=== PATIENT | male | born 1965 | race African-American/Black ===

== ENCOUNTER → 2016-08-29 | Outpatient (CLI) | payer MEDICARE, OTHER ==
--- NOTE | 2016-08-29 12:16 | MR ---
EXAMINATION TYPE: MR cervical spine wo/w con DATE OF EXAM: 08/29/2016 11:29 AM COMPARISON: 09/03/2015 HISTORY: cervicalgia TECHNIQUE: Multiplanar, multisequence images of the cervical spine were acquired utilizing 20 mL intravenous Mul tiHance gadolinium contrast. Diffusion weighted imaging was performed. Distensive of fusion and laminectomy changes are noted to extend from C2-3 through C6-7. Pedicular s crews are in place and alignment is stable relative to the prior study. C2-C3: Postoperative changes. Uncovertebral joint hypertrophy and facet arthropathy causes some mild foraminal encroachment bilaterally. Broad-based posterior disc bulge causes minimal anterior mass eff ect on the thecal sac. C3-C4: Moderate disc desiccation. Broad-based posterior disc bulge mildly effaces the ventral thecal sac. No evidence for herniation or central stenosis. No foraminal encroachment. Postoperative changes . C4-C5: Moderate disc desiccation. Broad-based posterior disc bulge mildly effaces the ventral thecal sac. No evidence for herniation or central stenosis. Mild stable right foraminal encroachment. Postop erative changes. C5-C6: Laminectomy changes are unchanged. Bilateral foraminal encroachment is present. Posterior exte nsion of endplate disc complex causes mild anterior mass effect on the thecal sac. C6-C7: Posterior extension of endplate disc complex causes anterior mass effect on the thecal sac and possibly contact the anterior cervical cord. No significant foraminal encroachment or significant ce ntral canal stenosis. C7-T1: Moderate to severe disc desiccation. Right paracentral disc herniation noted resultant central stenosis and right foraminal encroachment. Mild ventral CORD contact without myelopathy. There is th inning of the spinal cord however. Postoperative alignment is unchanged. Cervical spinal cord is of normal signal. Craniovertebral junc tion relationships are within normal limits. IMPRESSION: 1. Extensive postoperative fusion and laminectomy changes. 2. Interval disc herniation paracentrally and to the right at C6-7 as discussed above.
== END | disposition home or self-care (01) ==
LOC: RADMRIMAIN 10:35
PROVIDERS: ATTEND Psychiatry & Neurology Pain Medicine
DX: M50.223 Other cervical disc displacement at C6-C7 level (principal); Z98.1 Arthrodesis status
CPT/HCPCS: 72156; A9577

== ENCOUNTER → 2016-10-18 | Outpatient (CLI) | payer MEDICARE, OTHER ==
--- NOTE | 2016-10-18 13:11 | MR ---
EXAMINATION TYPE: MR tspine/lspine wo con DATE OF EXAM: 10/18/2016 12:34 PM COMPARISON: MRI thoracic spine December 30, 2014. MRI lumbar spine February 09, 2016. HISTORY: spinal stenosis, numbness from waist down TECHNIQUE: Multiplanar, multisequence imaging of the thoracic and lumbar spine are performed without IV contrast. FINDINGS: T-SPINE: FINDINGS: A Vitamin E marker is placed posteriorly for counting purposes and is at level of the T11-T 12 disc space. Spinal cord shows normal course, caliber, and signal as it courses the thoracic spine . Vertebral body heights and alignment are satisfactory. Disc space heights are maintained. There ar e new posterior disc herniations effacing anterior thecal sac at C7-T1 and T1-T2 levels on sagittal i mage 10. Small posterior disc herniation effacing anterior thecal sac at T7-T8 level on sagittal imag e 9 is less prominent than prior exam. Additional small posterior disc herniation T8-T9 level on sagi ttal image 11 is less prominent than prior exam. Small posterior disc herniations T10-T11 and T11-T12 level on sagittal image 10 are similar to prior exam. Bone marrow signal intensity is preserved. Mil d multilevel anterior spurring in the lower thoracic spine is seen. Axial images at C7-T1 level show right paracentral broad-based disc protrusion effacing anterolateral thecal sac and causing asymmetric moderate right-sided neural foraminal narrowing seen best on axial image 20. Finding is new or more prominent from prior exam. Axial images at T1-T2 level show right paracentral disc protrusion effacing anterolateral thecal sac on axial image 18 similar in appearance to prior exam, bilateral neural foramina are patent. Axial images at T7-T8 level shows central disc protrusion mildly effacing anterior thecal sac less pr ominent than prior study. Axial images at T8-T9 level show right paracentral disc protrusion effacing anterolateral thecal sac on axial image 14, similar appearance to prior study. Axial images at T10-T11 level show lobulated broad-based paracentral disc protrusion effacing anterol ateral thecal sac, bilateral neural foramina are patent on axial image 8. Axial images at T11-T12 level are degraded by artifact. There is facet arthropathy seen bilaterally e ffacing posterior lateral thecal sac. There is broad-based posterior disc protrusion effacing anterio r thecal sac. There is slightly more prominent right lateral thecal sac effacement on axial image 5. Findings are similar to prior exam. Remainder thoracic levels are felt within normal limits. There are new small bilateral pleural effusi ons in the mid thorax near axial image 4. IMPRESSION: Multilevel degenerative changes in the thoracic spine as detailed above. Interval improve ment in disc herniation T7-T8 level is present. New disc herniations upper thoracic spine are noted. L-SPINE: Sagittal images of the lumbar spine show vertebral body heights heights to appear satisfactory. There is slight grade 1 anterolisthesis of L5 on S1 redemonstrated. Multilevel disc desiccation is present . There is mild disc space narrowing L3-L4 level and L5-S1 level redemonstrated. Posterior disc herni ation L3-L1 L4-L5 levels are redemonstrated on sagittal images. The conus medullaris remains normal i n position and signal ending at superior L1 vertebral body level. The bone marrow signal intensity i s within normal limits. No significant spurring is seen. Axial images at the T12-L1 level shows mild/moderate facet arthropathy bilaterally mildly effacing po sterior lateral thecal sac on axial image 26, bilateral neural foramina remain patent. No significant change from prior study is seen. Axial images at L1-L2 level show mild/moderate facet arthropathy bilaterally effacing posterior later al thecal sac on axial image 23, bilateral neural foramina are patent. No significant change from yessenia or study is seen. Axial images at L2-L3 level show broad disc bulge effacing anterior thecal sac. There is moderate fac et degenerative changes and ligamentum flavum hypertrophy effacing posterior lateral thecal sac on ax ial image 18. Bilateral neural foramina remain patent. No significant change from prior study is seen . Axial images at L3-L4 level show moderate to severe facet degenerative changes and ligamentum flavum hypertrophy bilaterally. There is broad disc bulge effacing anterior thecal sac on axial image 13. Th ere is moderate right and severe left-sided neural foraminal narrowing with encroachment left L3 nerv e suspected on sagittal image 3. No significant change from prior study is present. Axial images at L4-L5 level show moderate to advanced facet degenerative changes bilaterally. There i s broad disc bulge with central disc protrusion component. There is effacement of the anterior thecal sac. There is mild to moderate right and moderate to severe left-sided neural foraminal narrowing en croaching along inferior margin of left L4 nerve on sagittal image 2 similar to prior study. Axial images at L5-S1 level show moderate to advanced facet degenerative changes bilaterally. There i s broad-based disc protrusion. Spinal canal is fairly well preserved. There is moderate right and adv anced left-sided neural foraminal narrowing with spondylolisthesis present. Encroachment left L5 nerv e is felt present. IMPRESSION: Multilevel degenerative changes in the lumbar spine as detailed above, no significant erika nge from prior MRI is seen. Most prominent left-sided neural foraminal narrowing is seen at L3-L4 thr ough L5-S1 levels. Stable spondylolisthesis L5-S1 level noted. Findings somewhat pronounced for patie nt's age.
== END | disposition home or self-care (01) ==
LOC: RADMRIMAIN 10:47
PROVIDERS: ATTEND Neurological Surgery
DX: M99.73 Connective tissue and disc stenosis of intervertebral foramina of lumbar region (principal); M99.74 Connective tissue and disc stenosis of intervertebral foramina of sacral region; M51.24 Other intervertebral disc displacement, thoracic region; M43.17 Spondylolisthesis, lumbosacral region; M47.815 Spondylosis without myelopathy or radiculopathy, thoracolumbar region; M48.02 Spinal stenosis, cervical region
CPT/HCPCS: 72146; 72148

== ENCOUNTER → 2017-07-29 | Outpatient (CLI) | payer MEDICARE, OTHER ==
--- NOTE | 2017-07-30 14:33 | MR ---
EXAMINATION TYPE: MR lumbar spine wo/w con DATE OF EXAM: 07/29/2017 COMPARISON: NONE HISTORY: Low back pain, Philipp foot numbness TECHNIQUE: Multiplanar, multisequence images of the lumbar spine were acquired utilizing 13.5 mL intravenous Chapo avist gadolinium contrast. FINDINGS: Bone marrow signal is homogeneous throughout, overall slightly decreased in relation to the disc sign al although there is multilevel disc desiccation is identified. The vertebral bodies maintain normal vertebral body heights. There is mild grade 1 retrolisthesis of L3 on L4. There is also grade 1 anter olisthesis of L5 on S1. There are laminectomy defects and posterior element resection at the L3-L5 ve rtebral levels. L1-L2: Normal disc appearance without desiccation. No herniation, protrusion or disc bulging. No ca nal stenosis is present. Foramina are patent bilaterally. L2-L3: There is a broad-based disc bulge and ligamentum flavum buckling creating mild spinal canal st enosis. No significant neural foraminal narrowing is identified. L3-L4: There is a large broad-based disc bulge and extensive left facet arthropathy creating severe l eft neural foraminal narrowing and impinging upon the L3 nerve root and creating moderate right neuro foraminal narrowing. There is also resultant moderate spinal canal stenosis with transverse canal ant rowing. Posterior element resection has been performed and there is no anterior posterior narrowing o f the spinal canal. L4-L5: There is a broad-based disc bulge and focal disc protrusion/herniation with 3.6 mm cephalad di sc extrusion. There is mild transverse spinal canal narrowing without spinal canal stenosis as the po sterior elements have been resected. Facet arthropathy is also seen resulting in mild right and moder ate left neural foraminal narrowing. L5-S1: Disc desiccation, and broad-based disc bulge, and facet arthropathy moderately narrow the bila teral neural foramen. Spinal canal is patent. Mild posterior T1 hypointense enhancing epidural fibrosis is seen from L3 through L5 most significant at L4-L5 narrowing the spinal canal on postcontrast axial T1 nonfat sat image 7. IMPRESSION: 1. Small central disc herniation at L4-L5 with 3.6 mm cephalad disc extrusion. Extensive facet arthro cuong results in moderate left neural foraminal narrowing and mild right neural foraminal narrowing a t this level. 2. Extensive left facet arthropathy at L3-L4 creates severe left neural foraminal narrowing impinging upon the exiting nerve L3 nerve root and creating moderate right neural foraminal narrowing. 3. Minimal posterior epidural fibrosis from L3 through L5 most significant at L4-L5 narrowing the spi nal canal and creating mild spinal canal stenosis. 4. Moderate spinal canal stenosis in the transverse dimension at L3-L4 with no anterior posterior wid ening due to resection of the posterior elements. 5. Mild grade 1 retrolisthesis of L3 on L4 and anterolisthesis of L5 on S1.
== END | disposition home or self-care (01) ==
LOC: RADMRIMAIN 13:23
PROVIDERS: ATTEND Psychiatry & Neurology Pain Medicine
DX: M48.061 Spinal stenosis, lumbar region without neurogenic claudication (principal); M99.73 Connective tissue and disc stenosis of intervertebral foramina of lumbar region; M51.26 Other intervertebral disc displacement, lumbar region; M43.17 Spondylolisthesis, lumbosacral region; M46.86 Other specified inflammatory spondylopathies, lumbar region
CPT/HCPCS: 72158; A9581

== ENCOUNTER 2017-10-10 17:12 | Inpatient (IN) | payer MEDICARE, OTHER ==
[2017-10-10] MEDS ORDERED: IBUPROFEN 800 MG TAB PO PRN (23:16)
[2017-10-10] MEDS ORDERED: ZOLPIDEM 10 MG TAB PO PRN (23:22)
[2017-10-11] MEDS: PREGABALIN 75 MG CAP PO SCH ×4 (00:29→21:41)
[2017-10-11] MEDS: HEPARIN SODIUM,PORCINE 5,000 UNIT/ML 1 ML VIAL SQ SCH ×3 (00:29→15:44)
[2017-10-11] MEDS: PIPERACILLIN-TAZOBACTAM 3.375 GM in DEXTROSE/WATER 1 50ML.BAG IVPB SCH ×3 (00:30→15:21)
[2017-10-11] MEDS: HYDROcodone/APAP 10-325MG 1 EACH TAB PO PRN ×2 (05:13→15:50)
[2017-10-11 07:22] LABS: Anisocytosis Slight; Basophils % (A) 0 %; Eosinophils # (A) 0.5 k/uL (0-0.7); Eosinophils % (A) 3 %; HCT 29.7 % (39.0-53.0); HGB 8.1 gm/dL (13.0-17.5); Hypochromasia Marked; Lymphocytes # (A) 1.4 k/uL (1.0-4.8); Lymphocytes % (A) 9 %; MCH 19.5 pg (25.0-35.0); MCHC 27.1 g/dL (31.0-37.0); Mean Platelet Volume 6.9; Microcytosis Marked; Monocytes # (A) 0.9 k/uL (0-1.0); Monocytes % (A) 6 %; Neutrophils # (A) 12.6 k/uL (1.3-7.7); Neutrophils % (A) 81 %; Platelet Count 339 k/uL (150-450); Poikilocytosis Slight; RBC 4.13 m/uL (4.30-5.90); RDW 18.4 % (11.5-15.5); WBC 15.7 k/uL (3.8-10.6)
[2017-10-11] MEDS: PANTOPRAZOLE 40 MG TABLET PO SCH (07:37)
[2017-10-11] MEDS: CITALOPRAM HYDROBROMIDE 20 MG TAB PO SCH (07:38)
[2017-10-11 07:40] LABS: ALT 16 U/L (21-72); AST 18 U/L (17-59); Albumin 2.8 g/dL (3.5-5.0); Alkaline Phosphatase 110 U/L (38-126); Anion Gap 12 mmol/L; Blood Urea Nitrogen 22 mg/dL (9-20); Carbon Dioxide 29 mmol/L (22-30); Chloride 101 mmol/L (98-107); Glucose 99 mg/dL (74-99); Potassium 4.4 mmol/L (3.5-5.1); Sodium 142 mmol/L (137-145); Total Bilirubin 0.6 mg/dL (0.2-1.3); Total Protein 6.3 g/dL (6.3-8.2)
--- NOTE | 2017-10-11 08:18 | XR ---
EXAMINATION TYPE: XR chest 2V DATE OF EXAM: 10/11/2017 HISTORY: pleural effusion. REFERENCE: Previous study dated 07/05/2009. FINDINGS: The heart is enlarged. There is worsening opacification of the left hemithorax. Some of thi s represents loculated fluid. Underlying airspace disease cannot be excluded. Right lung appears dora r. IMPRESSION: 1. CARDIOMEGALY. 2. INCREASED OPACITY LEFT HEMITHORAX, AT LEAST PART OF WHICH IS DUE TO LOCULATED FLUID.
[2017-10-11] MEDS ORDERED: NON-FORMULARY DRUG (Omeprazole [Prilosec] 40 MG) PO SCH (09:00)
[2017-10-11] MEDS ORDERED: ALLOPURINOL 100 MG TAB PO SCH (09:00)
[2017-10-11] MEDS: ALLOPURINOL 300 MG TAB PO SCH (09:10)
--- NOTE | 2017-10-11 09:10 | P.CNPUL ---
History of Present Illness Consult date: 10/11/17 Reason for consult: dyspnea, cough, chest pain, pneumonia, pleural effusion Chief complaint: Transferred from [facility] for evaluation left thoracotomy History of present illness: 52-year-old with extensive history of smoking and nicotine use quit smoking about a year ago patient has been admitted into the hospital transfer from [facility] for evaluation of loculated pleural effusion and possible VATS versus left thoracotomy. Patient has a history of severe morbid obesity is status post gastric sleeve, he has not been feeling well for the last several days to weeks with increased shortness breath and cough however about 2- 3 days ago started having left-sided chest pain with heavy feeling with those problem patient came into the hospital was found to have a multiple loculated pleural effusion on the left side confirmed on the computed tomography scan of the chest, patient was initiated therapy with IV Zosyn and vancomycin will transfer her over here for more definitive intervention, patient does complain of night sweats and chills has a significant based loss since gastric sleeve Patient significant past medical history is for mood disorder depression and chronic pain syndrome chronic insomnia history of sleep disorder breathing and sleep apnea but however does not use CPAP machine since significant weight loss Review of Systems All systems: negative Past Medical History Past Medical History: Diabetes Mellitus, GERD/Reflux, Hypertension, Osteoarthritis (OA) Additional Past Medical History / Comment(s): "FEELS LIKE FOOD IS GETTING STUCK WHEN I SWALLOW AND THEN I FEEL LIKE IT'S GOING TO COME BACK UP", MORBID OBESITY. HAS LOST 100LBS SINCE JUNE 2013 & BLOOD SUGARS ARE "UNDER CONTROL" . NO INSULIN REQUIRED. NOT TAKING BP MEDS SINCE WEIGHT LOSS, BECAUSE BP "UNDER CONTROL". GOUT. CHRONIC LOWER BACK PAIN. CHRONIC BILATERAL HIP PAIN. LOWER BACK PAIN. BILATERAL HIP PAIN. marta legs and feet neuropthy History of Any Multi-Drug Resistant Organisms: None Reported Past Surgical History: Bariatric Surgery, Joint Replacement, Orthopedic Surgery Additional Past Surgical History / Comment(s): GASTRIC SLEEVE JUNE 2013. BILATERAL KNEE SX. BILATERAL HIP SX WITH NEED FOR METAL REPLACEMENTS. LEFT SHOULDER SX. LEFT ACHILES TENDON SX. RIGHT BIG TOE Past Anesthesia/Blood Transfusion Reactions: No Reported Reaction Past Psychological History: No Psychological Hx Reported Smoking Status: Former smoker Past Alcohol Use History: None Reported Additional Past Alcohol Use History / Comment(s): started smoking > 19 approx 8 cig per day Past Drug Use History: None Reported - Past Family History Father Family Medical History: Cancer Additional Family Medical History / Comment(s): lung Mother Family Medical History: Coronary Artery Disease (CAD), Hypertension Medications and Allergies Home Medications Medication Instructions Recorded Confirmed Type Ibuprofen [Motrin] 800 mg PO Q8H PRN 11/30/13 10/10/17 History Omeprazole [PriLOSEC] 40 mg PO DAILY 11/30/13 10/10/17 History Allopurinol [Zyloprim] 300 mg PO DAILY 06/04/16 10/10/17 History Cyclobenzaprine [Flexeril] 10 mg PO TID 06/04/16 10/10/17 History Escitalopram [Lexapro] 10 mg PO QAM 06/04/16 10/10/17 History Furosemide [Lasix] 40 mg PO DAILY 06/04/16 10/10/17 History HYDROcodone/APAP 10-325MG [[place] 1 tab PO Q8H PRN 06/04/16 10/10/17 History 10-325] Pregabalin [Lyrica] 150 mg PO BID 06/04/16 10/10/17 History Zolpidem Tartrate [Ambien] 10 mg PO HS PRN 06/04/16 10/10/17 History Multivitamins, Thera [Multivitamin 1 tab PO DAILY 10/10/17 10/10/17 History (formulary)] Nortriptyline [Pamelor] 25 mg PO HS 10/10/17 10/10/17 History Simvastatin 80 mg PO HS 10/10/17 10/10/17 History Allergies Allergy/AdvReac Type Severity Reaction Status Date / Time No Known Allergies Allergy Verified 10/10/17 22:44 Physical Exam Vitals: Vital Signs Temp Pulse Pulse Resp BP Pulse Ox 10/11/17 08:00 18 10/11/17 07:36 99.2 F 90 18 125/78 96 10/11/17 04:00 98.2 F 95 95 20 128/81 96 10/11/17 00:00 99.6 F 104 H 101 H 20 123/74 94 L 10/10/17 20:59 100.7 F H 104 H 21 134/89 97 Intake and Output 10/10/17 10/11/17 10/11/17 22:59 06:59 14:59 Intake Total 200 50 Output Total 300 Balance 200 -250 Intake: Intake, IV Titration 50 Amount Piperacillin-Tazobactam 3 50 .375 gm In Dextrose/Water 1 50ml.bag @ 12.5 mls/hr IVPB Q8HR [facility] Rx#: [id number] Oral 200 Output: Urine 300 Other: Voiding Method Toilet Weight 132.5 kg 126 kg - Constitutional General appearance: disheveled, mild distress, obese - EENT Eyes: anicteric sclerae, EOMI, PERRLA, normal appearance ENT: normal oropharynx Ears: bilateral: normal - Neck Carotids: bilateral: upstroke normal, bruit absent Thyroid: bilateral: normal size - Respiratory Respiratory: right: CTA, left: diminished, dullness, negative: rales, rhonchi, wheezing - Cardiovascular Rhythm: regular Heart sounds: normal: S1, S2 - Gastrointestinal General gastrointestinal: normal bowel sounds, soft - Integumentary Integumentary: normal, normal turgor - Neurologic Normal neuro exam Neurologic: CNII-XII intact - Musculoskeletal Musculoskeletal: gait normal, generalized weakness, strength equal bilaterally - Psychiatric Psychiatric: A&O x's 3, appropriate affect, intact judgment & insight Results - Laboratory Findings CBC and BMP: 10/11/17 07:05 10/11/17 07:05 Abnormal lab findings: Abnormal Labs 10/11/17 10/11/17 07:05 07:05 WBC 15.7 H RBC 4.13 L Hgb 8.1 L Hct 29.7 L MCV 72.0 L MCH 19.5 L MCHC 27.1 L RDW 18.4 H Neutrophils # 12.6 H BUN 22 H Calcium 8.0 L ALT 16 L Albumin 2.8 L - Diagnostic Findings Chest x-ray: report reviewed, image reviewed CT scan - chest: report reviewed, image reviewed (Performed at [facility] with findings as noted above) Assessment and Plan Assessment: Likely empyema Complicated left parapneumonic effusion loculated in nature Severe morbid obesity Mood disorder depression Sepsis related to empyema complicated pneumonia Plan: Gentle rehydration Pain control DVT and peptic ulcer disease prophylaxis Deep breathing exercises incentive spirometry Increase activity as tolerated IV antibiotics with Zosyn and vancomycin Thoracic surgery consultation discussed with Dr Cano, Dr. Farris is covering for the weekend Time with Patient: Greater than 30
[2017-10-11] MEDS ORDERED: VANCOMYCIN IV PER PHARMACY 1 EACH MISC MISCELLANE PRN (09:11)
--- NOTE | 2017-10-11 09:34 | P.GSCN ---
<Marcelle Doran - Last Filed: 10/11/17 09:20> History of Present Illness Consult date: 10/11/17 Reason for Consult: Loculated left pleural effusion, surgical recommendations. Requesting physician: Chavez Pedraza History of present illness: This 52-year-old gentleman who follows on an outpatient basis with Dr. Alexandrea Ang. He has a previous medical history of gastric sleeve surgery with 100 pounds weight loss over the last year, peripheral neuropathy, depression, arthritis, multiple orthopedic surgeries, diabetes and hypertension for which he no longer takes medications since his weight loss from his gastric surgery, and previous heavy tobacco dependence. He presented to [facility] with complaints of generalized not feeling well over several weeks with increased shortness of breath and cough. What prompted him to come to the hospital was that he started to develop sharp left-sided chest pain with deep inspiration and coughing. He had a computed tomography scan completed at [facility], films are not available to us at this time but report demonstrates loculated pleural effusions on the left side with multiple air bronchograms present in the left midlung field and left lung base. The patient was started on IV antibiotics. He was transferred to [facility] at the request of Dr. Hurley for surgical evaluation for possible VATS versus thoracotomy. Dr. Farris was consulted for surgical recommendations. Review of Systems 14 point review systems was completed and is negative except as noted in the HPI. Past Medical History Past Medical History: Diabetes Mellitus, GERD/Reflux, Hypertension, Osteoarthritis (OA) Additional Past Medical History / Comment(s): "FEELS LIKE FOOD IS GETTING STUCK WHEN I SWALLOW AND THEN I FEEL LIKE IT'S GOING TO COME BACK UP", MORBID OBESITY. HAS LOST 100LBS SINCE JUNE 2013 & BLOOD SUGARS ARE "UNDER CONTROL" . NO INSULIN REQUIRED. NOT TAKING BP MEDS SINCE WEIGHT LOSS, BECAUSE BP "UNDER CONTROL". GOUT. CHRONIC LOWER BACK PAIN. CHRONIC BILATERAL HIP PAIN. LOWER BACK PAIN. BILATERAL HIP PAIN. marta legs and feet neuropthy History of Any Multi-Drug Resistant Organisms: None Reported Past Surgical History: Bariatric Surgery, Joint Replacement, Orthopedic Surgery Additional Past Surgical History / Comment(s): GASTRIC SLEEVE JUNE 2013. BILATERAL KNEE SX. BILATERAL HIP SX WITH NEED FOR METAL REPLACEMENTS. LEFT SHOULDER SX. LEFT ACHILES TENDON SX. RIGHT BIG TOE Past Anesthesia/Blood Transfusion Reactions: No Reported Reaction Past Psychological History: No Psychological Hx Reported Smoking Status: Former smoker Past Alcohol Use History: None Reported Additional Past Alcohol Use History / Comment(s): started smoking > 20 approx 8 cig per day Past Drug Use History: None Reported - Past Family History Father Family Medical History: Cancer Additional Family Medical History / Comment(s): lung Mother Family Medical History: Coronary Artery Disease (CAD), Hypertension Medications and Allergies Home Medications Medication Instructions Recorded Confirmed Type Ibuprofen [Motrin] 800 mg PO Q8H PRN 11/30/13 10/10/17 History Omeprazole [PriLOSEC] 40 mg PO DAILY 11/30/13 10/10/17 History Allopurinol [Zyloprim] 300 mg PO DAILY 06/04/16 10/10/17 History Cyclobenzaprine [Flexeril] 10 mg PO TID 06/04/16 10/10/17 History Escitalopram [Lexapro] 10 mg PO QAM 06/04/16 10/10/17 History Furosemide [Lasix] 40 mg PO DAILY 06/04/16 10/10/17 History HYDROcodone/APAP 10-325MG [[place] 1 tab PO Q8H PRN 06/04/16 10/10/17 History 10-325] Pregabalin [Lyrica] 150 mg PO BID 06/04/16 10/10/17 History Zolpidem Tartrate [Ambien] 10 mg PO HS PRN 06/04/16 10/10/17 History Multivitamins, Thera [Multivitamin 1 tab PO DAILY 10/10/17 10/10/17 History (formulary)] Nortriptyline [Pamelor] 25 mg PO HS 10/10/17 10/10/17 History Simvastatin 80 mg PO HS 10/10/17 10/10/17 History Allergies Allergy/AdvReac Type Severity Reaction Status Date / Time No Known Allergies Allergy Verified 10/10/17 22:44 Surgical - Exam Vital Signs Temp Pulse Resp BP Pulse Ox 100.7 F H 104 H 21 134/89 97 10/10/17 20:59 10/10/17 20:59 10/10/17 20:59 10/10/17 20:59 10/10/17 20:59 - General well developed, well nourished, no distress, no pain, obese - Eyes PERRL, normal ocular movement - ENT no hearing loss - Neck no masses, no bruits, trachea midline - Respiratory Lungs sounds diminished bilaterally, left greater than right, with some coarse breath sounds on the left. Respirations even, nonlabored. Currently on 2 L nasal cannula with oxygen saturation 96%. - Cardiovascular S1, S2 present. Regular rate and rhythm, sinus rhythm on telemetry. Palpable peripheral pulses bilaterally. Trace bilateral lower extremity edema present. No calf pain or tenderness noted. - Abdomen Abdomen: soft, non tender, bowel sounds, surgical scars - Genitourinary Deferred - Rectum Deferred - Integumentary no rash, no growths - Neurologic normal coordination, normal sensation - Musculoskeletal normal gait, normal posture - Psychiatric oriented to time, oriented to person, oriented to place, speech is normal, memory intact Results - Labs 10/11/17 07:05 10/11/17 07:05 Abnormal Lab Results - Last 24 Hours (Table) 10/11/17 10/11/17 Range/Units 07:05 07:05 WBC 15.7 H (3.8-10.6) k/uL RBC 4.13 L (4.30-5.90) m/uL Hgb 8.1 L (13.0-17.5) gm/dL Hct 29.7 L (39.0-53.0) % MCV 72.0 L (80.0-100.0) fL MCH 19.5 L (25.0-35.0) pg MCHC 27.1 L (31.0-37.0) g/dL RDW 18.4 H (11.5-15.5) % Neutrophils # 12.6 H (1.3-7.7) k/uL BUN 22 H (9-20) mg/dL Calcium 8.0 L (8.4-10.2) mg/dL ALT 16 L (21-72) U/L Albumin 2.8 L (3.5-5.0) g/dL Diabetes panel 10/11/17 Range/Units 07:05 Sodium 142 (137-145) mmol/L Potassium 4.4 (3.5-5.1) mmol/L Chloride 101 (98-107) mmol/L Carbon Dioxide 29 (22-30) mmol/L BUN 22 H (9-20) mg/dL Creatinine 0.97 (0.66-1.25) mg/dL Glucose 99 (74-99) mg/dL Calcium 8.0 L (8.4-10.2) mg/dL AST 18 (17-59) U/L ALT 16 L (21-72) U/L Alkaline Phosphatase 110 (38-126) U/L Total Protein 6.3 (6.3-8.2) g/dL Albumin 2.8 L (3.5-5.0) g/dL Calcium panel 10/11/17 Range/Units 07:05 Calcium 8.0 L (8.4-10.2) mg/dL Albumin 2.8 L (3.5-5.0) g/dL Pituitary panel 10/11/17 Range/Units 07:05 Sodium 142 (137-145) mmol/L Potassium 4.4 (3.5-5.1) mmol/L Chloride 101 (98-107) mmol/L Carbon Dioxide 29 (22-30) mmol/L BUN 22 H (9-20) mg/dL Creatinine 0.97 (0.66-1.25) mg/dL Glucose 99 (74-99) mg/dL Calcium 8.0 L (8.4-10.2) mg/dL Adrenal panel 10/11/17 Range/Units 07:05 Sodium 142 (137-145) mmol/L Potassium 4.4 (3.5-5.1) mmol/L Chloride 101 (98-107) mmol/L Carbon Dioxide 29 (22-30) mmol/L BUN 22 H (9-20) mg/dL Creatinine 0.97 (0.66-1.25) mg/dL Glucose 99 (74-99) mg/dL Calcium 8.0 L (8.4-10.2) mg/dL Total Bilirubin 0.6 (0.2-1.3) mg/dL AST 18 (17-59) U/L ALT 16 L (21-72) U/L Alkaline Phosphatase 110 (38-126) U/L Total Protein 6.3 (6.3-8.2) g/dL Albumin 2.8 L (3.5-5.0) g/dL - Imaging Chest x-ray: report reviewed, image reviewed Assessment and Plan (1) History of gastric surgery Current Visit: No Status: Resolved Code(s): Z98.890 - OTHER SPECIFIED POSTPROCEDURAL STATES SNOMED Code(s): 056237919 (2) Peripheral neuropathy Current Visit: Yes Status: Chronic Code(s): G62.9 - POLYNEUROPATHY, UNSPECIFIED SNOMED Code(s): 189695246 (3) Loculated pleural effusion Current Visit: Yes Status: Acute Code(s): J90 - PLEURAL EFFUSION, NOT ELSEWHERE CLASSIFIED SNOMED Code(s): 560648583 (4) Depression Current Visit: Yes Status: Chronic Code(s): F32.9 - MAJOR DEPRESSIVE DISORDER, SINGLE EPISODE, UNSPECIFIED SNOMED Code(s): 09099273 (5) Tobacco dependence in remission Current Visit: No Status: Resolved Code(s): F17.201 - NICOTINE DEPENDENCE, UNSPECIFIED, IN REMISSION SNOMED Code(s): 990475939 (6) COPD (chronic obstructive pulmonary disease) Current Visit: Yes Status: Chronic Code(s): J44.9 - CHRONIC OBSTRUCTIVE PULMONARY DISEASE, UNSPECIFIED SNOMED Code(s): 58491065 Plan: The patient was seen and examined at the bedside. Chart/diagnostics were reviewed. Will review CT of the chest and x-rays from [facility] when available. At this time continue medical management per primary care service, pulmonology. Antibiotics per pulmonology. Incentive spirometry ordered, encourage its use 10 times every hour. Patient is currently stable and in no acute distress. Will discuss the case with Dr. Farris, more recommendations to follow. Thank you Dr. Pedraza for this consult. We look forward to working with you in the care of your patient. Time with Patient: Greater than 30 <Christiano Farris R - Last Filed: 10/11/17 13:38> Surgical - Exam Vital Signs Temp Pulse Resp BP Pulse Ox 100.7 F H 104 H 21 134/89 97 10/10/17 20:59 10/10/17 20:59 10/10/17 20:59 10/10/17 20:59 10/10/17 20:59 Results - Labs 10/11/17 07:05 10/11/17 07:05 Abnormal Lab Results - Last 24 Hours (Table) 10/11/17 10/11/17 Range/Units 07:05 07:05 WBC 15.7 H (3.8-10.6) k/uL RBC 4.13 L (4.30-5.90) m/uL Hgb 8.1 L (13.0-17.5) gm/dL Hct 29.7 L (39.0-53.0) % MCV 72.0 L (80.0-100.0) fL MCH 19.5 L (25.0-35.0) pg MCHC 27.1 L (31.0-37.0) g/dL RDW 18.4 H (11.5-15.5) % Neutrophils # 12.6 H (1.3-7.7) k/uL BUN 22 H (9-20) mg/dL Calcium 8.0 L (8.4-10.2) mg/dL ALT 16 L (21-72) U/L Albumin 2.8 L (3.5-5.0) g/dL Diabetes panel 10/11/17 Range/Units 07:05 Sodium 142 (137-145) mmol/L Potassium 4.4 (3.5-5.1) mmol/L Chloride 101 (98-107) mmol/L Carbon Dioxide 29 (22-30) mmol/L BUN 22 H (9-20) mg/dL Creatinine 0.97 (0.66-1.25) mg/dL Glucose 99 (74-99) mg/dL Calcium 8.0 L (8.4-10.2) mg/dL AST 18 (17-59) U/L ALT 16 L (21-72) U/L Alkaline Phosphatase 110 (38-126) U/L Total Protein 6.3 (6.3-8.2) g/dL Albumin 2.8 L (3.5-5.0) g/dL Calcium panel 10/11/17 Range/Units 07:05 Calcium 8.0 L (8.4-10.2) mg/dL Albumin 2.8 L (3.5-5.0) g/dL Pituitary panel 10/11/17 Range/Units 07:05 Sodium 142 (137-145) mmol/L Potassium 4.4 (3.5-5.1) mmol/L Chloride 101 (98-107) mmol/L Carbon Dioxide 29 (22-30) mmol/L BUN 22 H (9-20) mg/dL Creatinine 0.97 (0.66-1.25) mg/dL Glucose 99 (74-99) mg/dL Calcium 8.0 L (8.4-10.2) mg/dL Adrenal panel 10/11/17 Range/Units 07:05 Sodium 142 (137-145) mmol/L Potassium 4.4 (3.5-5.1) mmol/L Chloride 101 (98-107) mmol/L Carbon Dioxide 29 (22-30) mmol/L BUN 22 H (9-20) mg/dL Creatinine 0.97 (0.66-1.25) mg/dL Glucose 99 (74-99) mg/dL Calcium 8.0 L (8.4-10.2) mg/dL Total Bilirubin 0.6 (0.2-1.3) mg/dL AST 18 (17-59) U/L ALT 16 L (21-72) U/L Alkaline Phosphatase 110 (38-126) U/L Total Protein 6.3 (6.3-8.2) g/dL Albumin 2.8 L (3.5-5.0) g/dL Assessment and Plan Assessment: Chart reviewed, patient seen and evaluated, radiologic studies reviewed. Agree with nurse practitioner assessment and evaluation as documented. Patient will require left-sided thoracoscopy possible open thoracotomy with decortication for multiloculated left pleural effusion. We'll schedule.
[2017-10-11] MEDS: CYCLOBENZAPRINE 10 MG TAB PO SCH ×3 (10:21→21:41)
[2017-10-11] MEDS: ESCITALOPRAM 10 MG TAB PO SCH (10:22)
[2017-10-11] MEDS: MULTIVITAMINS, THERA 1 EACH TAB PO SCH (11:24)
[2017-10-11] MEDS: VANCOMYCIN 2,000 MG in SODIUM CHLORIDE 0.9% 500 ML IVPB SCH ×2 (11:29→15:21)
--- NOTE | 2017-10-11 14:18 | HP ---
HISTORY AND PHYSICAL DATE OF ADMISSION: 10/10/2017 DATE OF SERVICE: 10/11/2017 PRESENTING COMPLAINT: Short of breath. HISTORY OF PRESENTING COMPLAINT: This is a pleasant 52-year-old patient of Dr. Ang. Chronic stable medical conditions include peripheral neuropathy, gout, depression, osteoarthritis, hyperlipidemia, insomnia. Patient had presented to [facility] the day before with increasing shortness of breath and pain on the left side. CT scan of the chest showed a large loculated pleural effusion and some collapse of part of the left lower lung base. Patient would need cardiothoracic intervention. That service was not available at that hospital; hence patient was transferred here for further evaluation by Cardiothoracic Surgery. Patient is tolerating some diet. Tired. Denies any obvious fevers. REVIEW OF SYSTEMS: CONSTITUTIONAL: Tired. HEENT: None. RESPIRATORY: Short of breath. Slight cough. CARDIOVASCULAR: None. GASTROINTESTINAL: None. GENITOURINARY: None. MUSCULOSKELETAL: Arthritic pain in joints. DERMATOLOGICAL: None. HEMATOLOGICAL: None. LYMPHATICS: None. PSYCHIATRY: Depression. NEUROLOGICAL: Peripheral neuropathy. PAST MEDICAL HISTORY: 1. Peripheral neuropathy. 2. Gout. 3. Depression. 4. Osteoarthritis. 5. Hyperlipidemia. 6. Insomnia. 7. Bilateral kidney stones. 8. Gallstones. PAST SURGICAL HISTORY: 1. Right toe surgery. 2. Left rotator cuff surgery. 3. Bilateral hip surgery. 4. Sleeve gastrectomy. 5. Back surgery. SOCIAL HISTORY: . Does not smoke or drink alcohol. HOME MEDICATIONS: 1. Lasix 40 mg a day. 2. Lexapro 10 mg a day. 3. Flexeril 10 mg t.i.d. 4. Allopurinol 300 mg p.o. daily. 5. Simvastatin 80 mg at bedtime. 6. Pamelor 25 mg at bedtime. 7. [place] 10 one tablet q.8 p.r.n. 8. Lyrica 150 mg b.i.d. 9. Prilosec 40 mg p.o. daily. 10.Multivitamin 1 tablet p.o. daily. 11.Motrin 800 mg q.8 p.r.n. 12.Ambien 10 mg at bedtime p.r.n. ALLERGIES: NONE. PHYSICAL EXAMINATION: Temperature 99.1, pulse 90, respiration 18, blood pressure 118/73, pulse ox 95% on 3 L. GENERAL APPEARANCE: Well built. BMI 33.8. Sitting at the edge of the bed. Tired- appearing. EYES: Pupils equal. Conjunctivae pale. HEENT: External appearance of nose and ears normal. Oral cavity normal. NECK: JVD not raised. Mass not palpable. RESPIRATORY: Effort increased. LUNGS: Decreased breath sounds on the left side. Mild wheezing. CARDIOVASCULAR: First and second sounds normal. Minimal edema. ABDOMEN: Soft, nontender. Liver and spleen not palpable. LYMPHATIC: No lymph node palpable in neck or axillae. PSYCHIATRY: Alert and oriented x3. Mood and affect normal. NEUROLOGICAL: Pupils equal. Cranial nerves grossly intact. Power and sensation grossly intact. INVESTIGATIONS: White count 15.7, hemoglobin 8.1, potassium 4.4, BUN 22, creatinine 0.97. CT scan of the chest from the other hospital showed large loculated fluid on the left side with partial collapse of the left lower lobe; bilateral kidney stones and gallstones. ASSESSMENT: 1. Large left loculated pleural effusion; could be empyema from pleural effusion causing partial collapse of the left lower lobe. 2. Peripheral neuropathy, idiopathic. 3. Gout. 4. Depression not otherwise specified. 5. Primary osteoarthritis. 6. Hyperlipidemia. 7. Bilateral kidney stones, asymptomatic. 8. Gallstones, asymptomatic. PLAN: Patient is on antibiotics in the form of IV Zosyn, vancomycin. Home medications are resumed. Dr. Hurley from Pulmonary is following. Cardiothoracic was consulted for possible chest tube or VATS. MMODL / IJN: [id number] /
[2017-10-11] MEDS ORDERED: ZOLPIDEM 10 MG TAB PO PRN (21:00)
[2017-10-11] MEDS ORDERED: ATORVASTATIN 20 MG TAB PO SCH (21:00)
[2017-10-11] MEDS: NORTRIPTYLINE 25 MG CAP PO SCH (21:41)
[2017-10-11] MEDS: ATORVASTATIN 40 MG TAB PO SCH (21:41)
[2017-10-12] MEDS: VANCOMYCIN 2,000 MG in SODIUM CHLORIDE 0.9% 500 ML IVPB SCH ×5 (04:36→23:51)
[2017-10-12] MEDS: PIPERACILLIN-TAZOBACTAM 3.375 GM in DEXTROSE/WATER 1 50ML.BAG IVPB SCH ×4 (04:36→23:52)
[2017-10-12 06:09] LABS: Anisocytosis Slight; Basophils % (A) 0 %; Eosinophils # (A) 0.7 k/uL (0-0.7); Eosinophils % (A) 4 %; HCT 34.8 % (39.0-53.0); HGB 9.5 gm/dL (13.0-17.5); Hypochromasia Marked; Lymphocytes # (A) 1.8 k/uL (1.0-4.8); Lymphocytes % (A) 10 %; MCH 20.1 pg (25.0-35.0); MCHC 27.2 g/dL (31.0-37.0); MCV 74.1 fL (80.0-100.0); Mean Platelet Volume 7.3; Microcytosis Moderate; Monocytes # (A) 0.9 k/uL (0-1.0); Monocytes % (A) 5 %; Neutrophils # (A) 13.9 k/uL (1.3-7.7); Neutrophils % (A) 79 %; Platelet Count 370 k/uL (150-450); Poikilocytosis Slight; RDW 18.6 % (11.5-15.5); WBC 17.6 k/uL (3.8-10.6)
[2017-10-12 06:27] LABS: ALT 22 U/L (21-72); AST 29 U/L (17-59); Albumin 3.4 g/dL (3.5-5.0); Alkaline Phosphatase 146 U/L (38-126); Anion Gap 17 mmol/L; Blood Urea Nitrogen 20 mg/dL (9-20); Calcium 8.7 mg/dL (8.4-10.2); Carbon Dioxide 28 mmol/L (22-30); Chloride 98 mmol/L (98-107); Glucose 95 mg/dL (74-99); Sodium 143 mmol/L (137-145); Total Bilirubin 0.6 mg/dL (0.2-1.3); Total Protein 7.4 g/dL (6.3-8.2)
[2017-10-12] MEDS: HEPARIN SODIUM,PORCINE 5,000 UNIT/ML 1 ML VIAL SQ SCH ×4 (07:49→23:49)
[2017-10-12] MEDS: PANTOPRAZOLE 40 MG TABLET PO SCH (07:50)
[2017-10-12] MEDS ORDERED: DEXTROSE 50%-WATER 50 ML SYRINGE IVP ONE (09:53)
[2017-10-12] MEDS ORDERED: SUCCINYLCHOLINE CHLORIDE 100 MG/5 ML SYR IV ONE (09:55)
[2017-10-12] MEDS ORDERED: LACTATED RINGERS 1,000 ML IV ONE ×2 (09:55)
[2017-10-12] MEDS ORDERED: NEOSTIGMINE 1 MG/ML 10 ML VIAL ONE (09:55)
[2017-10-12] MEDS ORDERED: ROCURONIUM BROMIDE 10 MG/ML 10 ML VIAL IV ONE (09:55)
[2017-10-12] MEDS ORDERED: PROPOFOL 10 MG/ML 20 ML VIAL IV ONE (09:55)
[2017-10-12] MEDS ORDERED: PHENYLEPHRINE-0.9% NACL SYG 1 MG/10 ML SYRINGE ONE (09:55)
[2017-10-12] MEDS ORDERED: GLYCOPYRROLATE 0.2 MG/ML 2 ML VIAL ONE (09:55)
[2017-10-12] MEDS ORDERED: MIDAZOLAM 2 MG/2 ML VIAL ONE (09:55)
[2017-10-12] MEDS ORDERED: fentaNYL (PF) 50 MCG/ML 2 ML AMP ONE (09:55)
[2017-10-12] MEDS ORDERED: IV FLUID CONTINUATION 1,000 ML IV ONE (09:55)
[2017-10-12] MEDS ORDERED: ONDANSETRON 4 MG/2 ML VIAL ONE (09:55)
[2017-10-12] MEDS ORDERED: HYDROmorphone (PF) 1 MG/ML ONE (09:55)
[2017-10-12] MEDS: PREGABALIN 75 MG CAP PO SCH ×2 (12:21→20:49)
[2017-10-12] MEDS: CYCLOBENZAPRINE 10 MG TAB PO SCH ×3 (12:21→20:51)
--- NOTE | 2017-10-12 12:39 | P.OP ---
Date of Procedure: 10/12/17 Preoperative Diagnosis: Loculated left pleural effusion Postoperative Diagnosis: Same Procedure(s) Performed: Diagnostic left thoracoscopy, left thoracotomy, complete decortication left lung Anesthesia: JASON Surgeon: Christiano Farris Pot Liner #1: German Jorge Estimated Blood Loss (ml): 300 IV fluids (ml): 1,500 Urine output (ml): 500 Pathology: other (Pleural fluid for chemistry and cell count, pleural content for culture, pleural content and pleural peel for permanent section) Condition: stable Disposition: PACU Indications for Procedure: 52-year-old male presents with complex left pleural effusion consistent with empyema. Decortication was indicated. Operative Findings: Complex left pleural effusion with multiloculated fluid collections including a small area of purulent material, a lot of mucoid semisolid material in the pleural space and dense fibrinous and some fibrous adhesions over the entire lower lobe and a portion of the upper lobe. On thoracoscopy, Neurontin able to generate any visualization due to complex nature of the effusion and the adhesions in the pleural space. Following open decortication the lung expanded well and were no residual restrictive lesions on the surface of the lung. Description of Procedure: The patient was brought to the operating room, placed supine on the operating table, anesthetized and intubated with a double-lumen endotracheal tube. Tube was positioned with fiberoptic bronchoscopy. The patient was turned in the right lateral decubitus position. The left chest was sterilely prepped and draped. Initial incision was made in the midaxillary line in the seventh interspace and a finger was placed in the chest cavity. Serosanguineous fluid was noted. Some fluid was able to be suctioned out. We using a finger and blunt dissection we were able to take down some of the adhesions in the chest cavity and placed the thoracoscope however we were not able to obtain any type of adequate visualization for thoracoscopic work. At that point the incision was enlarged to a limited lateral thoracotomy incision. The latissimus muscle and a portion of the serratus muscle were divided. The intercostal nerves in the seventh interspace were opened anteriorly and posteriorly and a tuffier rib knowledge management advisor was placed. Painstakingly slow dissection was used to free a large amount of loculated fluid and semisolid gelatinous material from the chest cavity. Small area of purulence was identified and this was cultured. The majority of the material in the chest cavity was collected once the lung was completely freed of adhesions, tedious decortication of the entire lower lobe and the lower portion of the upper lobe including down into the greater fissure was performed. The pleural surfaces were also debrided including deep down into the sulcus. Once we completely during Kiet free the pleural space, the lung was reexpanded and noted to expand well. Some further debridement was performed in order to completely freed along and then 3 chest tubes were placed in the chest cavity. There was a 32-Egyptian anteriorly, a 36-Egyptian straight posteriorly toward the apex and a 36 right angle up posteriorly into the sulcus. Chest was copiously irrigated with warm saline and then the ribs approximated with #1 Vicryl. Blocks were performed at the 6/7 and eighth interspace prior to closure of the chest cavity. Half percent Marcaine was used. The ribs reapproximated, the muscle layers were closed with layers of 0 Vicryl suture in the subcutaneous fat was closed in 2 layers with 2-0 Vicryl suture and skin was closed with a 3-0 Vicryl stitch chest tubes were connected to suction and dry sterile dressings were applied the patient was turned supine and extubated and transferred to recovery room in stable condition.
[2017-10-12] MEDS ORDERED: ONDANSETRON 4 MG/2 ML VIAL IVP PRN (12:48)
[2017-10-12] MEDS ORDERED: IPRATROPIUM-ALBUTEROL 3 ML NEB IH PRN (12:48)
--- NOTE | 2017-10-12 13:04 | XR ---
EXAMINATION TYPE: XR chest 1V portable DATE OF EXAM: 10/12/2017 HISTORY: post thoracotomy, pt in PACU. REFERENCE: Previous study dated 10/11/2017. FINDINGS: There continues to be a loculated fluid collection on the left. This appears to have increa sed. Right lung remains clear. Heart size is obscured. IMPRESSION: ENLARGING LEFT-SIDED PLEURAL EFFUSION, SOME OF WHICH IS LOCULATED.
[2017-10-12] MEDS ORDERED: fentaNYL (PF) 50 MCG/ML 2 ML AMP IVP ONE ×2 (13:15→13:45)
[2017-10-12] MEDS ORDERED: NALOXONE 0.4 MG/ML 1 ML VIAL IV PRN (14:02)
[2017-10-12] MEDS ORDERED: MORPHINE SULFATE 4MG/4ML SYRG IVP ONE (14:10)
[2017-10-12] MEDS: DEXTROSE 5%-0.45% NACL 1,000 ML IV SCH (15:12)
[2017-10-12] MEDS: HYDROmorphone PCA 5 MG/25 ML SYRINGE IV PRN (15:36)
[2017-10-12] MEDS: IPRATROPIUM-ALBUTEROL 3 ML NEB IH SCH ×2 (15:57→19:55)
[2017-10-12] MEDS: MULTIVITAMINS, THERA 1 EACH TAB PO SCH (16:00)
[2017-10-12] MEDS: ESCITALOPRAM 10 MG TAB PO SCH (16:00)
[2017-10-12] MEDS: CITALOPRAM HYDROBROMIDE 20 MG TAB PO SCH (16:01)
[2017-10-12] MEDS: ALLOPURINOL 300 MG TAB PO SCH (16:01)
[2017-10-12] MEDS: KETOROLAC 30 MG/ML 1 ML VIAL IVP SCH ×2 (17:48→23:50)
[2017-10-12] MEDS: ATORVASTATIN 40 MG TAB PO SCH (20:49)
[2017-10-12] MEDS: NORTRIPTYLINE 25 MG CAP PO SCH (20:49)
[2017-10-12] MEDS: SENNOSIDES-DOCUSATE SODIUM 1 EACH TAB PO SCH (20:50)
[2017-10-12 22:22] LABS: Appearance,BF Cloudy; Color,BF Red; Mononuclear WBC,Body Fluid 28 %; Nucleated Cells, Body Fluid 250 /uL; Polynuclear WBC,Body Fluid 72 %; RBC, Body Fluid 14750 /uL
--- NOTE | 2017-10-12 22:34 | PN ---
PROGRESS NOTE DATE OF SERVICE: October 12, 2017. PRESENTING COMPLAINT: Short of breath. INTERVAL HISTORY: This patient presented with left loculated pleural fluid. The patient is taken to the OR today, has a chest tube in place and gelatinous material in some, little bit amount of pus was removed. The patient is connected to the chest drain. Pain is decent. REVIEW OF SYSTEMS: Done for constitutional, cardiovascular, GI, pulmonary and relevant findings as above. CURRENT MEDICATIONS: Reviewed that include IV Zosyn and vancomycin. PHYSICAL EXAMINATION: Temperature 98, pulse 97, respiration 19, blood pressure 141/83, pulse ox 94% on 4 L. GENERAL APPEARANCE: Sitting on bed, tired. Eyes: Pupils equal. Conjunctivae pale. HEENT external appearance of nose and ears normal. Oral cavity normal. Neck JVD not raised. Mass not palpable. Respiratory effort increased. Lungs decreased breath sounds on the left side. Chest wall has got a dermal chest tube. ABDOMEN: Soft, nontender. Liver and spleen not palpable. Psychiatry: Alert and oriented x3. Mood and affect normal. INVESTIGATIONS: White count 7.6, hemoglobin 9.5, potassium 5, BUN and creatinine normal. ASSESSMENT: 1. Large left loculated pleural effusion status post evacuation of the same with a chest tube in place. 2. Peripheral neuropathy idiopathic. 3. Gout. 4. Depression, not otherwise specified. 5. Primary osteoarthritis. 6. Hyperlipidemia. 7. Bilateral kidney stones asymptomatic. 8. Gallstones asymptomatic. PLAN: Continue with antibiotics. Await culture results. Follow. MMODL / IJN: [id number] /
[2017-10-12 22:39] LABS: Total Protein, Body Fluid 5300 mg/dL
[2017-10-13] MEDS: KETOROLAC 30 MG/ML 1 ML VIAL IVP SCH ×4 (05:38→23:21)
[2017-10-13] MEDS: PANTOPRAZOLE 40 MG TABLET PO SCH (05:38)
[2017-10-13 06:41] LABS: Potassium 5.3 mmol/L (3.5-5.1)
[2017-10-13 06:45] LABS: Anisocytosis Slight; Basophils % (A) 0 %; Eosinophils # (A) 0.2 k/uL (0-0.7); Eosinophils % (A) 1 %; HCT 29.6 % (39.0-53.0); Hypochromasia Marked; Lymphocytes # (A) 1.2 k/uL (1.0-4.8); Lymphocytes % (A) 7 %; MCH 19.6 pg (25.0-35.0); MCHC 26.7 g/dL (31.0-37.0); MCV 73.5 fL (80.0-100.0); Mean Platelet Volume 7.6; Microcytosis Moderate; Monocytes # (A) 0.8 k/uL (0-1.0); Monocytes % (A) 4 %; Neutrophils # (A) 14.9 k/uL (1.3-7.7); Neutrophils % (A) 86 %; Platelet Count 354 k/uL (150-450); Poikilocytosis Slight; RBC 4.03 m/uL (4.30-5.90); RDW 18.5 % (11.5-15.5); WBC 17.2 k/uL (3.8-10.6)
[2017-10-13 06:47] LABS: HGB 7.9 gm/dL (13.0-17.5)
[2017-10-13] MEDS: IPRATROPIUM-ALBUTEROL 3 ML NEB IH SCH ×4 (07:52→19:32)
--- NOTE | 2017-10-13 08:20 | XR ---
EXAMINATION TYPE: XR chest 1V DATE OF EXAM: 10/13/2017 COMPARISON: 10/12/2017 HISTORY: Post thoracotomy. Follow-up exam. TECHNIQUE: Single frontal view of the chest is obtained. FINDINGS: Postthoracotomy changes are seen of the left with slight improved aeration of the left clyde g and persistent left hemithorax volume loss. 2 thoracostomy tubes terminating in the left upper lung . Left-sided central venous catheter terminates in the superior vena cava. There is partial visualiza tion of cervical fusion devices. The right lung is clear. Cardiomediastinal silhouette is stable. Oss eous structures are intact. No pneumothorax is seen. IMPRESSION: Slight improved aeration of the left lung with persistent left hemithorax volume loss, u nchanged lines and tubes and no visualized pneumothorax.
[2017-10-13] MEDS: HEPARIN SODIUM,PORCINE 5,000 UNIT/ML 1 ML VIAL SQ SCH ×3 (08:35→23:21)
[2017-10-13] MEDS: ALLOPURINOL 300 MG TAB PO SCH (08:35)
[2017-10-13] MEDS: CITALOPRAM HYDROBROMIDE 20 MG TAB PO SCH (08:35)
[2017-10-13] MEDS: ESCITALOPRAM 10 MG TAB PO SCH (08:35)
[2017-10-13] MEDS: CYCLOBENZAPRINE 10 MG TAB PO SCH ×3 (08:35→21:53)
[2017-10-13] MEDS: PREGABALIN 75 MG CAP PO SCH ×2 (08:39→21:57)
[2017-10-13] MEDS: PIPERACILLIN-TAZOBACTAM 3.375 GM in DEXTROSE/WATER 1 50ML.BAG IVPB SCH ×2 (08:39→17:27)
--- NOTE | 2017-10-13 11:08 | P.PN ---
Subjective Progress Note Date: 10/12/17 Principal diagnosis: Empyema left lung, severe sepsis, complicated pneumonia, COPD, morbid obesity 10/12/2017, patient seen eval reexamined he is postoperative operative day #0 for left thoracotomy patient has 3 chest tubes is arousable opens eyes follow simple commands has been on pain medications he is doing deep breathing exercise and I-S as well, operative reports reviewed operative findings reviewed , culture results and reports are pending Objective - Vital Signs Vital signs: Vital Signs Temp 98.5 F 10/13/17 08:00 Pulse 90 10/13/17 08:02 Resp 20 10/13/17 04:00 BP 107/59 10/13/17 08:00 Pulse Ox 91 L 10/13/17 08:45 Intake & Output 10/12/17 10/13/17 10/13/17 18:59 06:59 18:59 Intake Total 570 120 790 Output Total 1060 145 Balance -490 120 645 Weight 122.1 kg Intake: IV 450 Intake, IV Titration 550 Amount Piperacillin-Tazobactam 3 50 .375 gm In Dextrose/Water 1 50ml.bag @ 12.5 mls/hr IVPB Q8HR [facility] Rx#: [id number] Vancomycin 2,000 mg In 500 Sodium Chloride 0.9% 500 ml @ 167 mls/hr IVPB Q12HR@0000,1200 [facility] Rx#: [id number] Oral 120 120 240 Output: Chest Tube Drainage 210 Chest Tube Left Anterior 135 Chest Chest Tube Right 75 Posterior Chest Drainage 105 Left 30 Left Chest 75 Urine 650 40 Uretheral (Hernandez) 175 Estimated Blood Loss 200 Other: Voiding Method Indwelling Catheter Indwelling Catheter - Exam - Constitutional General appearance: disheveled, mild distress, obese - EENT Eyes: anicteric sclerae, EOMI, PERRLA, normal appearance ENT: normal oropharynx Ears: bilateral: normal - Neck Carotids: bilateral: upstroke normal, bruit absent Thyroid: bilateral: normal size - Respiratory Respiratory: right: CTA, left: diminished, dullness, negative: rales, rhonchi, wheezing, 3 left-sided chest tubes are present no air leak is present pleural fluid has been accumulated into pleural VAC - Cardiovascular Rhythm: regular Heart sounds: normal: S1, S2 - Gastrointestinal General gastrointestinal: normal bowel sounds, soft - Integumentary Integumentary: normal, normal turgor - Neurologic Normal neuro exam Neurologic: CNII-XII intact - Musculoskeletal Musculoskeletal: gait normal, generalized weakness, strength equal bilaterally - Psychiatric Psychiatric: A&O x's 3, appropriate affect, intact judgment & insight - Labs CBC & Chem 7: 10/13/17 05:53 10/13/17 05:53 Labs: Abnormal Lab Results - Last 24 Hours (Table) 10/13/17 10/13/17 Range/Units 05:53 05:53 WBC 17.2 H (3.8-10.6) k/uL RBC 4.03 L (4.30-5.90) m/uL Hgb 7.9 L D (13.0-17.5) gm/dL Hct 29.6 L (39.0-53.0) % MCV 73.5 L (80.0-100.0) fL MCH 19.6 L (25.0-35.0) pg MCHC 26.7 L (31.0-37.0) g/dL RDW 18.5 H (11.5-15.5) % Neutrophils # 14.9 H (1.3-7.7) k/uL Potassium 5.3 H (3.5-5.1) mmol/L BUN 21 H (9-20) mg/dL Glucose 118 H (74-99) mg/dL Calcium 8.0 L (8.4-10.2) mg/dL Microbiology - Last 24 Hours (Table) 10/12/17 14:00 Gram Stain - Preliminary Pleural Fluid Body Fluid Culture - Preliminary 10/12/17 14:00 Gram Stain - Preliminary Other - Other Tissue Culture - Preliminary 10/12/17 14:00 Acid Fast Bacilli Culture - Preliminary Pleural Fluid 10/12/17 14:00 Acid Fast Bacilli Culture - Preliminary Other - Other 10/12/17 14:00 Anaerobic Culture - Preliminary Pleural Fluid 10/12/17 14:00 Anaerobic Culture - Preliminary Other - Other 10/12/17 14:00 Fungal Culture - Preliminary Pleural Fluid 10/12/17 14:00 Fungal Culture - Preliminary Other - Other Assessment and Plan Assessment: Left-sided empyema, status post decortication and placement of 3 chest tubes Complicated left parapneumonic effusion loculated in nature Severe morbid obesity Mood disorder depression Sepsis related to empyema complicated pneumonia Plan: Gentle rehydration Pain control DVT and peptic ulcer disease prophylaxis Deep breathing exercises incentive spirometry Increase activity as tolerated IV antibiotics with Zosyn and vancomycin Status post left-sided for thoracotomy and decortication tolerated well Follow-up on culture results and report as well as cytology and tissue pathology sent from OR Time with Patient: Greater than 30
--- NOTE | 2017-10-13 11:10 | P.PN ---
Subjective Progress Note Date: 10/13/17 Principal diagnosis: Empyema left lung, severe sepsis, complicated pneumonia, COPD, morbid obesity 10/13/2017, patient seen and evaluated examined clinically remains stable with stable hemodynamics no air leak is present chest tube are being placed on water seal discussed with cardiothoracic surgery service, path report preliminary as well as culture results and reports are reviewed gram-positive cocci are seen on Gram stain on tissue staining however negative on fluid is staining, stable left-sided triple-lumen catheter overall stable left-sided on 3 chest tube 10/12/2017, patient seen eval reexamined he is postoperative operative day #0 for left thoracotomy patient has 3 chest tubes is arousable opens eyes follow simple commands has been on pain medications he is doing deep breathing exercise and I-S as well, operative reports reviewed operative findings reviewed , culture results and reports are pending Objective - Vital Signs Vital signs: Vital Signs Temp 98.5 F 10/13/17 08:00 Pulse 90 10/13/17 08:02 Resp 20 10/13/17 04:00 BP 107/59 10/13/17 08:00 Pulse Ox 91 L 10/13/17 08:45 Intake & Output 10/12/17 10/13/17 10/13/17 18:59 06:59 18:59 Intake Total 570 120 790 Output Total 1060 145 Balance -490 120 645 Weight 122.1 kg Intake: IV 450 Intake, IV Titration 550 Amount Piperacillin-Tazobactam 3 50 .375 gm In Dextrose/Water 1 50ml.bag @ 12.5 mls/hr IVPB Q8HR [facility] Rx#: [id number] Vancomycin 2,000 mg In 500 Sodium Chloride 0.9% 500 ml @ 167 mls/hr IVPB Q12HR@0000,1200 [facility] Rx#: [id number] Oral 120 120 240 Output: Chest Tube Drainage 210 Chest Tube Left Anterior 135 Chest Chest Tube Right 75 Posterior Chest Drainage 105 Left 30 Left Chest 75 Urine 650 40 Uretheral (Hernandez) 175 Estimated Blood Loss 200 Other: Voiding Method Indwelling Catheter Indwelling Catheter - Exam - Constitutional General appearance: disheveled, mild distress, obese - EENT Eyes: anicteric sclerae, EOMI, PERRLA, normal appearance ENT: normal oropharynx Ears: bilateral: normal - Neck Carotids: bilateral: upstroke normal, bruit absent Thyroid: bilateral: normal size - Respiratory Respiratory: right: CTA, left: diminished, dullness, negative: rales, rhonchi, wheezing, 3 left-sided chest tubes are present no air leak is present pleural fluid has been accumulated into pleural VAC - Cardiovascular Rhythm: regular Heart sounds: normal: S1, S2 - Gastrointestinal General gastrointestinal: normal bowel sounds, soft - Integumentary Integumentary: normal, normal turgor - Neurologic Normal neuro exam Neurologic: CNII-XII intact - Musculoskeletal Musculoskeletal: gait normal, generalized weakness, strength equal bilaterally - Psychiatric Psychiatric: A&O x's 3, appropriate affect, intact judgment & insight - Labs CBC & Chem 7: 10/13/17 05:53 10/13/17 05:53 Labs: Abnormal Lab Results - Last 24 Hours (Table) 10/13/17 10/13/17 Range/Units 05:53 05:53 WBC 17.2 H (3.8-10.6) k/uL RBC 4.03 L (4.30-5.90) m/uL Hgb 7.9 L D (13.0-17.5) gm/dL Hct 29.6 L (39.0-53.0) % MCV 73.5 L (80.0-100.0) fL MCH 19.6 L (25.0-35.0) pg MCHC 26.7 L (31.0-37.0) g/dL RDW 18.5 H (11.5-15.5) % Neutrophils # 14.9 H (1.3-7.7) k/uL Potassium 5.3 H (3.5-5.1) mmol/L BUN 21 H (9-20) mg/dL Glucose 118 H (74-99) mg/dL Calcium 8.0 L (8.4-10.2) mg/dL Microbiology - Last 24 Hours (Table) 10/12/17 14:00 Gram Stain - Preliminary Pleural Fluid Body Fluid Culture - Preliminary 10/12/17 14:00 Gram Stain - Preliminary Other - Other Tissue Culture - Preliminary 10/12/17 14:00 Acid Fast Bacilli Culture - Preliminary Pleural Fluid 10/12/17 14:00 Acid Fast Bacilli Culture - Preliminary Other - Other 10/12/17 14:00 Anaerobic Culture - Preliminary Pleural Fluid 10/12/17 14:00 Anaerobic Culture - Preliminary Other - Other 10/12/17 14:00 Fungal Culture - Preliminary Pleural Fluid 10/12/17 14:00 Fungal Culture - Preliminary Other - Other Assessment and Plan Assessment: Left-sided empyema, status post decortication and placement of 3 chest tubes Complicated left parapneumonic effusion loculated in nature Severe morbid obesity Mood disorder depression Sepsis related to empyema complicated pneumonia Plan: Gentle rehydration Pain control DVT and peptic ulcer disease prophylaxis Deep breathing exercises incentive spirometry Increase activity as tolerated IV antibiotics with Zosyn and vancomycin Status post left-sided for thoracotomy and decortication tolerated well Follow-up on culture results and report as well as cytology and tissue pathology sent from OR Time with Patient: Greater than 30
[2017-10-13] MEDS ORDERED: VANCOMYCIN IV PER PHARMACY 1 EACH MISC MISCELLANE PRN (11:11)
[2017-10-13] MEDS: MULTIVITAMINS, THERA 1 EACH TAB PO SCH (12:50)
[2017-10-13] MEDS: VANCOMYCIN 2,000 MG in SODIUM CHLORIDE 0.9% 500 ML IVPB SCH ×2 (12:50→23:24)
[2017-10-13] MEDS: DEXTROSE 5%-0.45% NACL 1,000 ML IV SCH (13:00)
[2017-10-13] MEDS: HYDROmorphone PCA 5 MG/25 ML SYRINGE IV PRN (14:51)
--- NOTE | 2017-10-13 14:57 | P.PN ---
Subjective Progress Note Date: 10/13/17 Principal diagnosis: Loculated left pleural effusion, COPD, morbid obesity, diabetes mellitus type 2 , GERD, history of hypertension, history of nicotine dependence and smoking 1 month ago, osteoarthritis. POD #1 diagnostic left thoracoscopic, left thoracotomy, complete decortication left lung. Patient is sitting up to his bedside edge. He is in no acute distress. He reports that his pain is well controlled with the Dilaudid ANNOUNCER pump. He is achieving 1250 mL with encouragement on his incentive spirometry. His oxygen saturations are 94% on 3 L nasal cannula. Objective - Vital Signs Vital signs: Vital Signs Temp 98.5 F 10/13/17 08:00 Pulse 96 10/13/17 12:33 Resp 20 10/13/17 04:00 BP 120/67 10/13/17 12:00 Pulse Ox 95 10/13/17 12:00 Intake & Output 10/12/17 10/13/17 10/13/17 18:59 06:59 18:59 Intake Total 570 120 910 Output Total 1060 145 Balance -490 120 765 Weight 122.1 kg Intake: IV 450 Intake, IV Titration 550 Amount Piperacillin-Tazobactam 3 50 .375 gm In Dextrose/Water 1 50ml.bag @ 12.5 mls/hr IVPB Q8HR [facility] Rx#: [id number] Vancomycin 2,000 mg In 500 Sodium Chloride 0.9% 500 ml @ 167 mls/hr IVPB Q12HR@0000,1200 [facility] Rx#: [id number] Oral 120 120 360 Output: Chest Tube Drainage 210 Chest Tube Left Anterior 135 Chest Chest Tube Right 75 Posterior Chest Drainage 105 Left 30 Left Chest 75 Urine 650 40 Uretheral (Hernandez) 175 Estimated Blood Loss 200 Other: Voiding Method Indwelling Catheter Indwelling Catheter # Voids 2 - Neck Details: No JVD, no lymphadenopathy, neck is supple. - Respiratory Details: Lung sounds are essentially clear to his right lobes, diminished to his left lower lobe with few scattered crackles. Respirations are symmetrical and nonlabored. Left pleural chest tubes intact to low continuous wall suction -20 cm H2O. No airleak present. Chest tubes are draining thin serosanguineous drainage. Left anterior chest tube with 30 mL output the last 8 hours, 100 mL output since surgery. Left posterior chest tubes with 75 mL output in the last 8 hours, 310 mL output since surgery. - Cardiovascular Details: Regular rhythm and rate. S1 and S2 present, negative for S3, gallop or murmur. Remote telemetry showing normal sinus rhythm heart rate 93. No edema present. Knee-high sequential compression devices in place to his bilateral lower extremities. - Gastrointestinal Gastrointestinal Comment(s): Abdomen is soft, nontender and nondistended. Hypoactive bowel sounds present all 4 abdominal quadrants. Tolerating oral intake. Passing flatus. - Genitourinary Genitourinary Comment(s): Voiding clear glenys urine. Adequate urine output. - Integumentary Integumentary Comment(s): Left chest incisions clean dry and approximated. No drainage or redness present. Skin is warm and dry. No cyanosis or clubbing present. - Neurologic Neurologic: Present: CNII-XII intact - Musculoskeletal Musculoskeletal: Present: gait normal, strength equal bilaterally - Psychiatric Psychiatric: Present: A&O x's 3, appropriate affect, intact judgment & insight - Allied health notes Allied health notes reviewed: nursing - Labs CBC & Chem 7: 10/13/17 05:53 10/13/17 05:53 Labs: Abnormal Lab Results - Last 24 Hours (Table) 10/13/17 10/13/17 Range/Units 05:53 05:53 WBC 17.2 H (3.8-10.6) k/uL RBC 4.03 L (4.30-5.90) m/uL Hgb 7.9 L D (13.0-17.5) gm/dL Hct 29.6 L (39.0-53.0) % MCV 73.5 L (80.0-100.0) fL MCH 19.6 L (25.0-35.0) pg MCHC 26.7 L (31.0-37.0) g/dL RDW 18.5 H (11.5-15.5) % Neutrophils # 14.9 H (1.3-7.7) k/uL Potassium 5.3 H (3.5-5.1) mmol/L BUN 21 H (9-20) mg/dL Glucose 118 H (74-99) mg/dL Calcium 8.0 L (8.4-10.2) mg/dL Microbiology - Last 24 Hours (Table) 10/12/17 14:00 Gram Stain - Preliminary Pleural Fluid Body Fluid Culture - Preliminary 10/12/17 14:00 Gram Stain - Preliminary Other - Other Tissue Culture - Preliminary 10/12/17 14:00 Acid Fast Bacilli Culture - Preliminary Pleural Fluid 10/12/17 14:00 Acid Fast Bacilli Culture - Preliminary Other - Other 10/12/17 14:00 Anaerobic Culture - Preliminary Pleural Fluid 10/12/17 14:00 Anaerobic Culture - Preliminary Other - Other 10/12/17 14:00 Fungal Culture - Preliminary Pleural Fluid 10/12/17 14:00 Fungal Culture - Preliminary Other - Other - Imaging and Cardiology Chest x-ray: report reviewed, image reviewed Assessment and Plan (1) Loculated pleural effusion Current Visit: Yes Status: Acute Code(s): J90 - PLEURAL EFFUSION, NOT ELSEWHERE CLASSIFIED SNOMED Code(s): 837122391 (2) COPD (chronic obstructive pulmonary disease) Current Visit: Yes Status: Chronic Code(s): J44.9 - CHRONIC OBSTRUCTIVE PULMONARY DISEASE, UNSPECIFIED SNOMED Code(s): 03824733 (3) History of gastric surgery Current Visit: No Status: Resolved Code(s): Z98.890 - OTHER SPECIFIED POSTPROCEDURAL STATES SNOMED Code(s): 302064186 (4) Tobacco dependence in remission Current Visit: No Status: Resolved Code(s): F17.201 - NICOTINE DEPENDENCE, UNSPECIFIED, IN REMISSION SNOMED Code(s): 769410122 Plan: 1. We will place his left pleural chest tubes to water seal. 2. Encourage use of incentive spirometry every hour while awake. Pulmonary management per Dr. Hurley's recommendations. 3. Pain control per ANNOUNCER orders. 4. Monitor daily chest x-rays. 5. Wean oxygen as tolerated. 6. Increase activity as tolerated, out of bed for all meals. Physical therapy consulted. 7. Medical management per primary care service. 8. More recommendations to follow based on the patient's clinical course. Time with Patient: Greater than 30
[2017-10-13] MEDS: NORTRIPTYLINE 25 MG CAP PO SCH (21:53)
[2017-10-13] MEDS: ATORVASTATIN 40 MG TAB PO SCH (21:53)
[2017-10-13] MEDS: SENNOSIDES-DOCUSATE SODIUM 1 EACH TAB PO SCH (21:53)
--- NOTE | 2017-10-13 22:31 | PN ---
PROGRESS NOTE DATE OF SERVICE: 10/13/2017 PRESENTING COMPLAINT: Short of breath. INTERVAL HISTORY: This patient presented with left loculated pleural effusion, status post thoracotomy. Patient has chest tubes in place attached to suction. Patient is tolerating some diet. Lying in bed. REVIEW OF SYSTEMS: Done for constitutional, cardiovascular, GI, pulmonary; relevant findings as above. CURRENT MEDICATIONS: Current medications include IV Zosyn and vancomycin. PHYSICAL EXAMINATION: Afebrile. Pulse 96, respiration 16, blood pressure 107/59, pulse ox 91% on 3 L. GENERAL APPEARANCE: Sitting up in bed, awake. EYES: Pupils equal. Conjunctivae normal. HEENT: External appearance of nose and ears normal. Oral cavity normal. NECK: JVD not raised. Mass not palpable. RESPIRATORY: Effort increased. LUNGS: Decreased breath sounds on the left side. Chest wall: 3 chest tubes are present. ABDOMEN: Soft, nontender. Liver and spleen not palpable. PSYCHIATRY: Alert and oriented x3. Mood and affect normal. INVESTIGATIONS: White count 17.2, hemoglobin 7.9, potassium 5.3, BUN 21, creatinine 1.10. Microbiology pending. ASSESSMENT: 1. Large left loculated pleural effusion, status post evacuation of the same with chest tubes in place. 2. Peripheral neuropathy, idiopathic. 3. Gout. 4. Depression not otherwise specified. 5. Primary osteoarthritis. 6. Hyperlipidemia. 7. Bilateral kidney stones, asymptomatic. 8. Gallstones, asymptomatic. PLAN: Continue with IV Zosyn, vancomycin. Will consult ID. Care was discussed with the patient. Also follow with Pulmonary. Repeat labs in the morning. MMODL / IJN: [id number] /
[2017-10-14] MEDS: PIPERACILLIN-TAZOBACTAM 3.375 GM in DEXTROSE/WATER 1 50ML.BAG IVPB SCH ×4 (01:21→23:43)
[2017-10-14] MEDS: KETOROLAC 30 MG/ML 1 ML VIAL IVP SCH ×3 (06:28→18:24)
[2017-10-14] MEDS: PANTOPRAZOLE 40 MG TABLET PO SCH (06:29)
[2017-10-14 06:37] LABS: Anisocytosis Slight; Basophils % (A) 0 %; Eosinophils # (A) 0.9 k/uL (0-0.7); Eosinophils % (A) 6 %; HCT 24.9 % (39.0-53.0); Hypochromasia Marked; Lymphocytes # (A) 1.4 k/uL (1.0-4.8); Lymphocytes % (A) 9 %; MCH 19.9 pg (25.0-35.0); MCHC 27.4 g/dL (31.0-37.0); MCV 72.7 fL (80.0-100.0); Microcytosis Moderate; Monocytes # (A) 0.7 k/uL (0-1.0); Monocytes % (A) 5 %; Neutrophils # (A) 11.5 k/uL (1.3-7.7); Neutrophils % (A) 79 %; Platelet Count 341 k/uL (150-450); Poikilocytosis Slight; RBC 3.43 m/uL (4.30-5.90); RDW 18.7 % (11.5-15.5); WBC 14.6 k/uL (3.8-10.6)
[2017-10-14 06:47] LABS: Calcium 7.8 mg/dL (8.4-10.2); Potassium 4.8 mmol/L (3.5-5.1)
[2017-10-14 07:03] LABS: HGB 6.8 gm/dL (13.0-17.5)
[2017-10-14] MEDS: HEPARIN SODIUM,PORCINE 5,000 UNIT/ML 1 ML VIAL SQ SCH ×3 (08:31→23:44)
[2017-10-14] MEDS: ESCITALOPRAM 10 MG TAB PO SCH (08:32)
[2017-10-14] MEDS: CITALOPRAM HYDROBROMIDE 20 MG TAB PO SCH (08:32)
[2017-10-14] MEDS: ALLOPURINOL 300 MG TAB PO SCH (08:32)
[2017-10-14] MEDS: CYCLOBENZAPRINE 10 MG TAB PO SCH ×3 (08:32→20:22)
[2017-10-14] MEDS: PREGABALIN 75 MG CAP PO SCH ×2 (08:36→20:22)
--- NOTE | 2017-10-14 08:40 | XR ---
EXAMINATION TYPE: XR chest 1V portable DATE OF EXAM: 10/14/2017 HISTORY: Shortness of breath. COMPARISON: 10/13/2017 TECHNIQUE: Single view of the chest is submitted. FINDINGS: 2 left-sided chest tubes remain in place. No sizable pneumothorax seen. Left IJ central venous line u nchanged. Persistent left hemithorax volume loss. Scattered pleural-parenchymal density persists. The heart is stable. Hilar and mediastinal structures are within normal limits. Degenerative changes are seen of the dorsal spine. IMPRESSION: 1. Stable chest
[2017-10-14] MEDS: IPRATROPIUM-ALBUTEROL 3 ML NEB IH SCH ×4 (09:03→20:02)
[2017-10-14] MEDS: HYDROcodone/APAP 10-325MG 1 EACH TAB PO PRN ×2 (09:09→20:22)
[2017-10-14] MEDS ORDERED: VANCOMYCIN TROUGH DUE 1 EACH MISC MISCELLANE ONE (11:00)
--- NOTE | 2017-10-14 11:24 | P.PN ---
Subjective Progress Note Date: 10/14/17 Principal diagnosis: Loculated left pleural effusion. History of COPD, morbid obesity, diabetes mellitus type 2, GERD, hypertension, previous tobacco dependence, S2 arthritis. POD #2 diagnostic left thoracoscopic, left thoracotomy, complete decortication of left lung Patient is currently sitting up in bed in no acute distress. States his pain is controlled with HIGHWAY MAINTAINER pump. Denies shortness of breath. Has ambulated in the room. Objective - Vital Signs Vital signs: Vital Signs Temp 98.1 F 10/14/17 10:56 Pulse 91 10/14/17 10:56 Resp 18 10/14/17 10:56 BP 113/60 10/14/17 10:56 Pulse Ox 99 10/14/17 10:56 Intake & Output 10/13/17 10/14/17 10/14/17 18:59 06:59 18:59 Intake Total 1970 360 Output Total 545 140 0 Balance 1425 -140 360 Weight 124.2 kg Intake: Intake, IV Titration 1370 Amount Dextrose 5%-0.45% NaCl 1, 320 000 ml @ 40 mls/hr IV . Q24H [facility] Rx#:[id number] Piperacillin-Tazobactam 3 50 .375 gm In Dextrose/Water 1 50ml.bag @ 12.5 mls/hr IVPB Q8HR [facility] Rx#: [id number] Vancomycin 2,000 mg In 1000 Sodium Chloride 0.9% 500 ml @ 167 mls/hr IVPB Q12HR@0000,1200 [facility] Rx#: [id number] Oral 600 360 Blood Product 0 Rc As-1 Unit 0 [id number] Output: Chest Tube Drainage 100 40 0 Chest Tube Left Anterior 20 30 Chest Chest Tube Right 80 10 0 Posterior Chest Drainage 105 Left 30 Left Chest 75 Urine 340 100 Other: # Voids 1 1 - Constitutional General appearance: Present: cooperative, no acute distress, obese - Respiratory Details: Lungs sounds diminished bilaterally. Respirations even, nonlabored. Currently on 4 L nasal cannula with oxygen saturation 96%. Able to achieve 1500 mL on his incentive spirometry. Productive cough with yellow sputum. Anterior left pleural chest tube to waterseal, 10 mL serous drainage overnight, 20 mL last 24 hours. Posterior left pleural chest tubes to waterseal, no drainage overnight, 50 mL serous drainage in the last 24 hours. No air leaks present. - Cardiovascular Details: S1, S2 present. Regular rate and rhythm, sinus rhythm on telemetry. Palpable peripheral pulses bilaterally. Trace bilateral lower extremity edema present. No calf pain or tenderness noted. SCDs present. Left internal jugular triple- lumen central line present. - Gastrointestinal Gastrointestinal Comment(s): Abdomen soft, nontender, nondistended. Active bowel sounds 4 quadrants. Tolerating diet. - Genitourinary Genitourinary Comment(s): Continues to void clear, yellow urine. - Integumentary Integumentary Comment(s): Skin is warm and dry with evidence perfusion. Left chest tube sites covered with dry intact dressing. - Neurologic Neurologic: Present: CNII-XII intact - Musculoskeletal Musculoskeletal: Present: gait normal, strength equal bilaterally - Psychiatric Psychiatric: Present: A&O x's 3, appropriate affect, intact judgment & insight - Allied health notes Allied health notes reviewed: nursing - Labs CBC & Chem 7: 10/14/17 06:22 10/14/17 06:22 Labs: Abnormal Lab Results - Last 24 Hours (Table) 10/11/17 10/14/17 10/14/17 Range/Units 16:36 06:22 06:22 WBC 14.6 H (3.8-10.6) k/uL RBC 3.43 L (4.30-5.90) m/uL Hgb 6.8 L* (13.0-17.5) gm/dL Hct 24.9 L (39.0-53.0) % MCV 72.7 L (80.0-100.0) fL MCH 19.9 L (25.0-35.0) pg MCHC 27.4 L (31.0-37.0) g/dL RDW 18.7 H (11.5-15.5) % Neutrophils # 11.5 H (1.3-7.7) k/uL Eosinophils # 0.9 H (0-0.7) k/uL BUN 22 H (9-20) mg/dL Glucose 107 H (74-99) mg/dL Calcium 7.8 L (8.4-10.2) mg/dL Crossmatch See Detail Microbiology - Last 24 Hours (Table) 10/12/17 14:00 Acid Fast Bacilli Smear - Final Pleural Fluid Acid Fast Bacilli Culture - Preliminary 10/12/17 14:00 Acid Fast Bacilli Smear - Final Other - Other Acid Fast Bacilli Culture - Preliminary 10/12/17 14:00 Gram Stain - Preliminary Other - Other Tissue Culture - Preliminary 10/12/17 14:00 Gram Stain - Preliminary Pleural Fluid Body Fluid Culture - Preliminary - Imaging and Cardiology Chest x-ray: report reviewed, image reviewed Assessment and Plan (1) History of gastric surgery Current Visit: No Status: Resolved Code(s): Z98.890 - OTHER SPECIFIED POSTPROCEDURAL STATES SNOMED Code(s): 261558171 (2) Peripheral neuropathy Current Visit: Yes Status: Chronic Code(s): G62.9 - POLYNEUROPATHY, UNSPECIFIED SNOMED Code(s): 269481876 (3) Loculated pleural effusion Current Visit: Yes Status: Acute Code(s): J90 - PLEURAL EFFUSION, NOT ELSEWHERE CLASSIFIED SNOMED Code(s): 925137741 (4) Depression Current Visit: Yes Status: Chronic Code(s): F32.9 - MAJOR DEPRESSIVE DISORDER, SINGLE EPISODE, UNSPECIFIED SNOMED Code(s): 96387005 (5) Tobacco dependence in remission Current Visit: No Status: Resolved Code(s): F17.201 - NICOTINE DEPENDENCE, UNSPECIFIED, IN REMISSION SNOMED Code(s): 353689413 (6) COPD (chronic obstructive pulmonary disease) Current Visit: Yes Status: Chronic Code(s): J44.9 - CHRONIC OBSTRUCTIVE PULMONARY DISEASE, UNSPECIFIED SNOMED Code(s): 10310570 Plan: 1. Anterior chest tubes discontinued. Will keep posterior chest tubes to water seal for never 24 hours, monitor for air leak as well as drainage amount. 2. Wean O2 as tolerated. Encourage incentive spirometry use 10 times every hour. Encourage continued smoking cessation. 3. Will monitor daily x-rays. 4. GI/DVT prophylaxis. 5. Will obtain a midline catheter, discontinue triple lumen central line. 6. Continue antibiotics per infectious disease recommendations. 7. Discontinue HIGHWAY MAINTAINER. Continue pain management with oral pain medication. 8. Increase activity as tolerated. Ambulate as able. Physical therapy following. 9. Medical management per primary care service. 10. More recommendations to follow. Time with Patient: Greater than 30
[2017-10-14] MEDS: MULTIVITAMINS, THERA 1 EACH TAB PO SCH (13:20)
[2017-10-14] MEDS: VANCOMYCIN 2,000 MG in SODIUM CHLORIDE 0.9% 500 ML IVPB SCH (14:10)
--- NOTE | 2017-10-14 17:17 | P.PN ---
Subjective Progress Note Date: 10/14/17 Principal diagnosis: Empyema left lung, severe sepsis, complicated pneumonia, COPD, morbid obesity 10/14/2017, patient seen eval reexamined during the rounds clinically patient has been doing much better one of the chest tube as removed still after chest tube chest x-ray performed today reviewed he is breathing comfortably denies any chest pain some pain at the operative site is present but well controlled with the current pain medications he's been doing deep breathing exercises incentive spirometry no air leak is present and pleural VAC [place] his labs from today's reviewed hemoglobin drop down to 6.8 and the white cell count is 14 ,600 the BUN/creatinine is 22 and 1.1 which remains stable [place] pleural fluid culture results and reports are reviewed fungal culture preliminary pendingl, no AFB isolated so far my final path report is not available the Gram stain of tissue culture positive gram-positive cocci patient is currently on vent: Zosyn 10/13/2017, patient seen and evaluated examined clinically remains stable with stable hemodynamics no air leak is present chest tube are being placed on water seal discussed with cardiothoracic surgery service, path report preliminary as well as culture results and reports are reviewed gram-positive cocci are seen on Gram stain on tissue staining however negative on fluid is staining, stable left-sided triple-lumen catheter overall stable left-sided on 3 chest tube 10/12/2017, patient seen eval reexamined he is postoperative operative day #0 for left thoracotomy patient has 3 chest tubes is arousable opens eyes follow simple commands has been on pain medications he is doing deep breathing exercise and I-S as well, operative reports reviewed operative findings reviewed , culture results and reports are pending Objective - Vital Signs Vital signs: Vital Signs Temp 98.4 F 10/14/17 12:21 Pulse 90 10/14/17 16:55 Resp 16 10/14/17 13:37 BP 122/65 10/14/17 12:21 Pulse Ox 97 10/14/17 16:42 Intake & Output 10/13/17 10/14/17 10/14/17 18:59 06:59 18:59 Intake Total 1970 910 Output Total 545 140 0 Balance 1425 -140 910 Weight 124.2 kg Intake: Intake, IV Titration 1370 Amount Dextrose 5%-0.45% NaCl 1, 320 000 ml @ 40 mls/hr IV . Q24H [facility] Rx#:[id number] Piperacillin-Tazobactam 3 50 .375 gm In Dextrose/Water 1 50ml.bag @ 12.5 mls/hr IVPB Q8HR [facility] Rx#: [id number] Vancomycin 2,000 mg In 1000 Sodium Chloride 0.9% 500 ml @ 167 mls/hr IVPB Q12HR@0000,1200 [facility] Rx#: [id number] Oral 600 600 Blood Product 310 Rc As-1 Unit 310 [id number] Output: Chest Tube Drainage 100 40 0 Chest Tube Left Anterior 20 30 Chest Chest Tube Right 80 10 0 Posterior Chest Drainage 105 Left 30 Left Chest 75 Urine 340 100 Other: # Voids 1 1 - Exam - Constitutional General appearance: disheveled, mild distress, obese - EENT Eyes: anicteric sclerae, EOMI, PERRLA, normal appearance ENT: normal oropharynx Ears: bilateral: normal - Neck Carotids: bilateral: upstroke normal, bruit absent Thyroid: bilateral: normal size - Respiratory Respiratory: right: CTA, left: diminished, dullness, negative: rales, rhonchi, wheezing, 2 left-sided chest tubes are present no air leak is present pleural fluid has been accumulated into pleural VAC - Cardiovascular Rhythm: regular Heart sounds: normal: S1, S2 - Gastrointestinal General gastrointestinal: normal bowel sounds, soft - Integumentary Integumentary: normal, normal turgor - Neurologic Normal neuro exam Neurologic: CNII-XII intact - Musculoskeletal Musculoskeletal: gait normal, generalized weakness, strength equal bilaterally - Psychiatric Psychiatric: A&O x's 3, appropriate affect, intact judgment & insight - Labs CBC & Chem 7: 10/14/17 06:22 10/14/17 06:22 Labs: Abnormal Lab Results - Last 24 Hours (Table) 10/11/17 10/14/17 10/14/17 Range/Units 16:36 06:22 06:22 WBC 14.6 H (3.8-10.6) k/uL RBC 3.43 L (4.30-5.90) m/uL Hgb 6.8 L* (13.0-17.5) gm/dL Hct 24.9 L (39.0-53.0) % MCV 72.7 L (80.0-100.0) fL MCH 19.9 L (25.0-35.0) pg MCHC 27.4 L (31.0-37.0) g/dL RDW 18.7 H (11.5-15.5) % Neutrophils # 11.5 H (1.3-7.7) k/uL Eosinophils # 0.9 H (0-0.7) k/uL BUN 22 H (9-20) mg/dL Glucose 107 H (74-99) mg/dL Calcium 7.8 L (8.4-10.2) mg/dL Crossmatch See Detail Microbiology - Last 24 Hours (Table) 10/12/17 14:00 Acid Fast Bacilli Smear - Final Pleural Fluid Acid Fast Bacilli Culture - Preliminary 10/12/17 14:00 Acid Fast Bacilli Smear - Final Other - Other Acid Fast Bacilli Culture - Preliminary 10/12/17 14:00 Gram Stain - Preliminary Other - Other Tissue Culture - Preliminary 10/12/17 14:00 Gram Stain - Preliminary Pleural Fluid Body Fluid Culture - Preliminary - Imaging and Cardiology Chest x-ray: report reviewed, image reviewed (Overall stable finding no significant change compared to yesterday exam) Assessment and Plan Assessment: Severe anemia hemoglobin 6.9 we will monitor and observe Left-sided empyema, status post decortication and placement of 3 chest tubes Complicated left parapneumonic effusion loculated in nature Severe morbid obesity Mood disorder depression Sepsis related to empyema complicated pneumonia Plan: Gentle rehydration Pain control DVT and peptic ulcer disease prophylaxis Deep breathing exercises incentive spirometry Increase activity as tolerated IV antibiotics with Zosyn and vancomycin Status post left-sided for thoracotomy and decortication tolerated well Follow-up on culture results and report as well as cytology and tissue pathology sent from OR
[2017-10-14] MEDS: NORTRIPTYLINE 25 MG CAP PO SCH (20:22)
[2017-10-14] MEDS: SENNOSIDES-DOCUSATE SODIUM 1 EACH TAB PO SCH (20:22)
[2017-10-14] MEDS: ATORVASTATIN 40 MG TAB PO SCH (20:22)
--- NOTE | 2017-10-14 20:44 | PN ---
PROGRESS NOTE DATE OF SERVICE: 10/14/2017 PRESENTING COMPLAINT: Short of breath. INTERVAL HISTORY: Patient presented with large left loculated pleural effusion/empyema, status post decortication. Out of the 3 chest tubes, patient had 1 chest tube removed. The patient is tolerating a diet. Has not had a bowel movement for 4-5 days. Sitting up on bed. REVIEW OF SYSTEMS: Done for constitutional, cardiovascular, GI, pulmonary; relevant findings as above. CURRENT MEDICATIONS: Reviewed. They include IV Zosyn and vancomycin. PHYSICAL EXAMINATION: Temperature 97, pulse 107, respiration 18, blood pressure 143/69, pulse ox 99% on 3 L. GENERAL APPEARANCE: Propped up in bed, awake, smiling. EYES: Pupils equal. Conjunctivae normal. HEENT: External appearance of nose and ears normal. Oral cavity normal. NECK: JVD not raised. Mass not palpable. RESPIRATORY: Effort increased. LUNGS: Decreased breath sounds on the left side. Chest wall has [address]. ABDOMEN: Soft, nontender. Liver and spleen not palpable. PSYCHIATRY: Alert and oriented x3. Mood and affect normal. INVESTIGATIONS: Cultures are pending. White count 14.6, hemoglobin 6.8, potassium 4.8, BUN 22, creatinine 1.10. ASSESSMENT: 1. Large left loculated pleural effusion and parapneumonic effusion with empyema causing sepsis, present on admission, now with chest tubes in place. 2. Peripheral neuropathy, idiopathic. 3. Gout. 4. Depression not otherwise specified. 5. Primary osteoarthritis in multiple joints. 6. Hyperlipidemia. 7. Bilateral nephrolithiasis, asymptomatic. 8. Gallstones, asymptomatic. 9. Acute blood loss anemia; could be from hemolysis from infection, dropping down to below 7. PLAN: Continue with IV antibiotics. Will give the patient a unit of blood. There is no evidence of acute bleeding. Await culture results. Care was discussed with the patient. Will follow. MMODL / IJN: [id number] /
--- NOTE | 2017-10-14 23:52 | CONS ---
CONSULTATION DATE OF SERVICE: 10/14/2017 REASON FOR CONSULTATION: Infection. HISTORY OF PRESENT ILLNESS: The patient is a 52-year-old -[place] male who presented to [facility] with chief complaints of increasing shortness of breath and pain on the left side of the chest that he said had been going on for a few days prior to presentation to the hospital. Patient did have a cough, bringing up a minimal amount of sputum. No hemoptysis. Denies significant urinary symptoms. Did have some chills and a low-grade fever. With these symptoms, the patient was evaluated at [facility], where the patient had a chest x-ray followed by CT scan of the chest which showed large loculated pleural effusion and collapse of a portion of the left lower base. The patient subsequently was transferred to [facility] on to be evaluated by CT Surgery. The patient subsequently was evaluated by Dr. Christiano Farris and was taken to the OR on 10/12/2017. The patient had a left thoracoscopy and left thoracotomy with complete decortication of the left lung. He had 3 chest tubes. Culture has been obtained and the patient has been treated with broad-spectrum antibiotics in the form of Zosyn and vancomycin. The patient did have a low-grade fever of 100.7 on admission on 10/10. Subsequently he had a fever of 100.1 on 10/12. However, the patient has been afebrile since then. Patient still has some pain on the left side of the chest, more of a sharp pain, 3 to 4 out of 10, and no radiation. The cough has decreased in intensity. The patient denies having any difficulty swallowing. No nausea. No vomiting. No abdominal pain. No diarrhea. REVIEW OF SYSTEMS: CONSTITUTIONAL: Positive for weakness. Fever as mentioned above. EYES: No complaint. ENT: No complaint. RESPIRATORY: As per HPI. CARDIOVASCULAR: No complaint. GENITOURINARY: No complaint. GASTROINTESTINAL: No complaint. MUSCULOSKELETAL: No complaint. INTEGUMENTARY: No complaint. PSYCHOLOGICAL: No complaint. ENDOCRINE: No complaint. NEUROLOGICAL: No complaint. PAST MEDICAL HISTORY: 1. Hypertension. 2. Gastroesophageal reflux disease. 3. Diabetes mellitus. 4. Osteoarthritis. 5. Morbid obesity. 6. Chronic back pain. 7. Bilateral hip pain. PAST SURGICAL HISTORY: 1. Bariatric surgery. 2. Bilateral knee surgery. 3. Bilateral hip replacement. 4. Left shoulder surgery. 5. . SOCIAL HISTORY: Patient has about 20 pack/years of smoking; quit years ago. No drinking or any drug use. FAMILY HISTORY: Father with history of lung cancer. Mother with history of hypertension and coronary artery disease. ALLERGIES: NO KNOWN DRUG ALLERGIES. CURRENT MEDICATIONS: 1. Ambien. 2. Vancomycin. 3. Senokot. 4. Lyrica. 5. Piperacillin tazobactam. 6. Protonix. 7. Zofran. 8. Narcan. 9. Nortriptyline. 10.Theragran. 11.DuoNeb. 12.[place]. PHYSICAL EXAMINATION: Blood pressure is 137/73 with a pulse of 80, temperature 98.4. He is 100% on 2 L nasal cannula. General description is a middle-aged male lying in bed in no distress. No tachypnea or accessory muscle for respiration use. HEENT examination shows pallor. There is no scleral icterus. Oral mucous membranes are dry. No pharyngeal erythema or thrush. NECK: Trachea is central. No thyromegaly. LUNGS: Unlabored breathing with decreased breath sounds in the bases. No wheeze or crackle. HEART: S1, S2. Regular rate and rhythm. ABDOMEN: Soft. No tenderness. No guarding or rigidity. No organomegaly. EXTREMITIES: No edema of the feet. SKIN EXAMINATION: No rash or mass palpable. Neurologically patient is awake, alert, oriented x3. Mood and affect normal. LABS: Hemoglobin 6.8, white count 14.6, platelet count 341. BUN of 22, creatinine 1.10. Electrolytes have been normal. Pleural fluid with high protein. White count was 250, predominantly PMNs. Vancomycin trough is 17.9. Pleural fluid culture showing alpha- hemolytic Streptococcus. No blood culture at this facility. DIAGNOSTIC IMPRESSION AND PLAN: Patient with left-sided pneumonia with a parapneumonic effusion, loculated fluid, status post thoracotomy. Culture with alpha-hemolytic Streptococcus, which could be more likely Strep pneumo, common type of pneumonia. PLAN: 1. The patient at this time will continue vancomycin, Pharmacy to dose, target of 15, along with Zosyn. 2. Depending upon his clinical progress as well as cultures, will adjust the medication further; however, in view of his extensive infection, he will likely need either a midline or PICC for outpatient IV antibiotic therapy with the final choice of antibiotic based upon culture report. Thank you for this consultation. Will follow this patient along with you. MMODL / IJN: [id number] /
[2017-10-15] MEDS ORDERED: VANCOMYCIN 1,750 MG in SODIUM CHLORIDE 0.9% 250 ML IVPB SCH (06:00)
[2017-10-15] MEDS: PANTOPRAZOLE 40 MG TABLET PO SCH (06:30)
[2017-10-15 07:04] LABS: Anisocytosis Slight; Basophils % (A) 0 %; Eosinophils # (A) 0.6 k/uL (0-0.7); Eosinophils % (A) 5 %; HCT 24.8 % (39.0-53.0); Hypochromasia Marked; Lymphocytes # (A) 1.4 k/uL (1.0-4.8); Lymphocytes % (A) 11 %; MCH 20.5 pg (25.0-35.0); MCHC 28.2 g/dL (31.0-37.0); MCV 72.7 fL (80.0-100.0); Mean Platelet Volume 7.5; Microcytosis Moderate; Monocytes # (A) 1.2 k/uL (0-1.0); Monocytes % (A) 9 %; Neutrophils # (A) 9.2 k/uL (1.3-7.7); Neutrophils % (A) 73 %; Platelet Count 297 k/uL (150-450); Poikilocytosis Moderate; RBC 3.41 m/uL (4.30-5.90); RDW 18.6 % (11.5-15.5); WBC 12.7 k/uL (3.8-10.6)
--- NOTE | 2017-10-15 07:08 | XR ---
EXAMINATION TYPE: XR chest 1V portable DATE OF EXAM: 10/15/2017 COMPARISON: 10/14/2017 HISTORY: Shortness of breath TECHNIQUE: Single frontal view of the chest is obtained. FINDINGS: Left-sided chest tubes are seen with no sizable pneumothorax. Consolidation and small amou nt pleural fluid noted. Right lung stable. Heart size unchanged. Surgical change overlying the cervic al spine. IMPRESSION: 1. Stable pleural-parenchymal changes in the left with no sizable pneumothorax.
[2017-10-15 07:50] LABS: Calcium 7.8 mg/dL (8.4-10.2); Potassium 5.5 mmol/L (3.5-5.1)
--- NOTE | 2017-10-15 07:56 | P.PN ---
Subjective Progress Note Date: 10/15/17 Principal diagnosis: Loculated left pleural effusion. History of COPD, morbid obesity, diabetes mellitus type 2, GERD, hypertension, previous tobacco dependence, S2 arthritis. POD #3 diagnostic left thoracoscopic, left thoracotomy, complete decortication of left lung Patient is currently sitting up in bed in no acute distress. States pain is controlled with current medication regimen. Denies shortness of breath. Has ambulated in the room only. Anterior chest tubes were discontinued yesterday. Objective - Vital Signs Vital signs: Vital Signs Temp 99.0 F 10/15/17 03:43 Pulse 87 10/15/17 03:43 Resp 18 10/15/17 03:43 BP 116/65 10/15/17 03:43 Pulse Ox 96 10/15/17 03:43 Intake & Output 10/14/17 10/15/17 10/15/17 18:59 06:59 18:59 Intake Total 1390 480 Output Total 10 815 Balance 1380 -335 Weight 124.4 kg Intake: Oral 1080 480 Blood Product 310 Rc As-1 Unit 310 [id number] Output: Chest Tube Drainage 10 15 Chest Tube Right 10 15 Posterior Chest Urine 800 Other: Voiding Method Urinal - Constitutional General appearance: Present: cooperative, no acute distress, obese - Respiratory Details: Lungs sounds diminished bilaterally. Respirations even, nonlabored. Currently on 2 L nasal cannula with oxygen saturation 96%. Able to achieve 1250 mL on his incentive spirometry. Productive cough with yellow sputum. Posterior left pleural chest tubes to waterseal, 15 mL serous drainage overnight, 50 mL serous drainage in the last 24 hours. No air leaks present. - Cardiovascular Details: S1, S2 present. Regular rate and rhythm, sinus rhythm on telemetry. Palpable peripheral pulses bilaterally. Trace bilateral lower extremity edema present. No calf pain or tenderness noted. SCDs present. - Gastrointestinal Gastrointestinal Comment(s): Abdomen soft, nontender, nondistended. Active bowel sounds 4 quadrants. Tolerating diet. No bowel movement since surgery, positive flatus. - Genitourinary Genitourinary Comment(s): Continues to void clear, yellow urine. - Integumentary Integumentary Comment(s): Skin is warm and dry with evidence of good perfusion. Left chest tube sites covered with dry intact dressing. - Neurologic Neurologic: Present: CNII-XII intact - Musculoskeletal Musculoskeletal: Present: gait normal, strength equal bilaterally - Psychiatric Psychiatric: Present: A&O x's 3, appropriate affect, intact judgment & insight - Allied health notes Allied health notes reviewed: nursing - Labs CBC & Chem 7: 10/15/17 06:05 10/14/17 06:22 Labs: Abnormal Lab Results - Last 24 Hours (Table) 10/11/17 10/15/17 Range/Units 16:36 06:05 WBC 12.7 H (3.8-10.6) k/uL RBC 3.41 L (4.30-5.90) m/uL Hgb 7.0 L* (13.0-17.5) gm/dL Hct 24.8 L (39.0-53.0) % MCV 72.7 L (80.0-100.0) fL MCH 20.5 L (25.0-35.0) pg MCHC 28.2 L (31.0-37.0) g/dL RDW 18.6 H (11.5-15.5) % Crossmatch See Detail Microbiology - Last 24 Hours (Table) 10/12/17 14:00 Anaerobic Culture - Preliminary Pleural Fluid 10/12/17 14:00 Gram Stain - Preliminary Other - Other Tissue Culture - Preliminary Alpha Hemolytic Streptococcus 10/12/17 14:00 Gram Stain - Preliminary Pleural Fluid Body Fluid Culture - Preliminary - Imaging and Cardiology Chest x-ray: report reviewed, image reviewed Assessment and Plan (1) History of gastric surgery Current Visit: No Status: Resolved Code(s): Z98.890 - OTHER SPECIFIED POSTPROCEDURAL STATES SNOMED Code(s): 704152129 (2) Peripheral neuropathy Current Visit: Yes Status: Chronic Code(s): G62.9 - POLYNEUROPATHY, UNSPECIFIED SNOMED Code(s): 000562171 (3) Loculated pleural effusion Current Visit: Yes Status: Acute Code(s): J90 - PLEURAL EFFUSION, NOT ELSEWHERE CLASSIFIED SNOMED Code(s): 017885382 (4) Depression Current Visit: Yes Status: Chronic Code(s): F32.9 - MAJOR DEPRESSIVE DISORDER, SINGLE EPISODE, UNSPECIFIED SNOMED Code(s): 00009997 (5) Tobacco dependence in remission Current Visit: No Status: Resolved Code(s): F17.201 - NICOTINE DEPENDENCE, UNSPECIFIED, IN REMISSION SNOMED Code(s): 330605495 (6) COPD (chronic obstructive pulmonary disease) Current Visit: Yes Status: Chronic Code(s): J44.9 - CHRONIC OBSTRUCTIVE PULMONARY DISEASE, UNSPECIFIED SNOMED Code(s): 86239727 Plan: 1. Likely will discontinue posterior chest tubes today. Will obtain follow-up x-ray. Pathology demonstrates fibroadipose tissue with acute and chronic inflammation, fibrosis, and features of empyema, negative for malignancy. 2. Wean O2 as tolerated. Encourage incentive spirometry use 10 times every hour. Encourage continued smoking cessation. 3. Will monitor daily x-rays. 4. GI/DVT prophylaxis. 5. Continue antibiotics per infectious disease recommendations. 6. Continue pain management with oral pain medication. 7. Increase activity as tolerated. Ambulate as able. Physical therapy following. 8. Medical management per primary care service. 9. More recommendations to follow. Time with Patient: Greater than 30
[2017-10-15] MEDS: HYDROcodone/APAP 10-325MG 1 EACH TAB PO PRN ×3 (07:58→23:57)
[2017-10-15 08:05] LABS: Target Cells Present
[2017-10-15] MEDS: HEPARIN SODIUM,PORCINE 5,000 UNIT/ML 1 ML VIAL SQ SCH ×3 (08:08→23:10)
[2017-10-15] MEDS: ALLOPURINOL 300 MG TAB PO SCH (08:08)
[2017-10-15] MEDS: CITALOPRAM HYDROBROMIDE 20 MG TAB PO SCH (08:09)
[2017-10-15] MEDS: CYCLOBENZAPRINE 10 MG TAB PO SCH ×3 (08:09→20:43)
[2017-10-15] MEDS: ESCITALOPRAM 10 MG TAB PO SCH (08:09)
[2017-10-15] MEDS: IPRATROPIUM-ALBUTEROL 3 ML NEB IH SCH ×4 (08:11→19:33)
[2017-10-15] MEDS: PREGABALIN 75 MG CAP PO SCH ×2 (08:13→20:42)
[2017-10-15] MEDS: PIPERACILLIN-TAZOBACTAM 3.375 GM in DEXTROSE/WATER 1 50ML.BAG IVPB SCH ×3 (09:31→23:07)
--- NOTE | 2017-10-15 09:43 | P.PN ---
Subjective Progress Note Date: 10/15/17 Principal diagnosis: Empyema left lung, severe sepsis, complicated pneumonia, COPD, morbid obesity 10/15/2017, patient seen and evaluated examined today care plan discussed with the cardiothoracic surgery patient chest tube was stable very minimal output is present breathing comfortably denies any chest pain one of the tube has been removed yesterday likely one more tube will be removed later on today denies any cough or sputum production pain is well managed and will control with current medication patient remains on broad-spectrum antibiotics with IV Zosyn and vancomycin. Tissue cultures are positive for alpha strep, his cytology and histopathology is negative for neoplastic process but the overall findings in the pathological description is consistent with empyema, chest x-ray reviewed laboratory data and medications reviewed as well 10/14/2017, patient seen eval reexamined during the rounds clinically patient has been doing much better one of the chest tube as removed still after chest tube chest x-ray performed today reviewed he is breathing comfortably denies any chest pain some pain at the operative site is present but well controlled with the current pain medications he's been doing deep breathing exercises incentive spirometry no air leak is present and pleural VAC [place] his labs from today's reviewed hemoglobin drop down to 6.8 and the white cell count is 14 ,600 the BUN/creatinine is 22 and 1.1 which remains stable [place] pleural fluid culture results and reports are reviewed fungal culture preliminary pendingl, no AFB isolated so far my final path report is not available the Gram stain of tissue culture positive gram-positive cocci patient is currently on vent: Zosyn 10/13/2017, patient seen and evaluated examined clinically remains stable with stable hemodynamics no air leak is present chest tube are being placed on water seal discussed with cardiothoracic surgery service, path report preliminary as well as culture results and reports are reviewed gram-positive cocci are seen on Gram stain on tissue staining however negative on fluid is staining, stable left-sided triple-lumen catheter overall stable left-sided on 3 chest tube 10/12/2017, patient seen eval reexamined he is postoperative operative day #0 for left thoracotomy patient has 3 chest tubes is arousable opens eyes follow simple commands has been on pain medications he is doing deep breathing exercise and I-S as well, operative reports reviewed operative findings reviewed , culture results and reports are pending Objective - Vital Signs Vital signs: Vital Signs Temp 98.7 F 10/15/17 08:00 Pulse 80 10/15/17 08:22 Resp 20 10/15/17 08:00 BP 122/72 10/15/17 08:00 Pulse Ox 97 10/15/17 08:00 Intake & Output 10/14/17 10/15/17 10/15/17 18:59 06:59 18:59 Intake Total 1390 480 350 Output Total 10 815 350 Balance 1380 -335 0 Weight 124.4 kg Intake: IV 250 Vancomycin 1,750 mg In 250 Sodium Chloride 0.9% 250 ml @ 125 mls/hr IVPB Q12H [facility] Rx#:[id number] Oral 1080 480 100 Blood Product 310 Rc As-1 Unit 310 [id number] Output: Chest Tube Drainage 10 15 Chest Tube Right 10 15 Posterior Chest Urine 800 350 Other: Voiding Method Urinal - Exam - Constitutional General appearance: disheveled, mild distress, obese - EENT Eyes: anicteric sclerae, EOMI, PERRLA, normal appearance ENT: normal oropharynx Ears: bilateral: normal - Neck Carotids: bilateral: upstroke normal, bruit absent Thyroid: bilateral: normal size - Respiratory Respiratory: right: CTA, left: diminished, dullness, negative: rales, rhonchi, wheezing, 2 left-sided chest tubes are present no air leak is present pleural fluid has been accumulated into pleural VAC - Cardiovascular Rhythm: regular Heart sounds: normal: S1, S2 - Gastrointestinal General gastrointestinal: normal bowel sounds, soft - Integumentary Integumentary: normal, normal turgor - Neurologic Normal neuro exam Neurologic: CNII-XII intact - Musculoskeletal Musculoskeletal: gait normal, generalized weakness, strength equal bilaterally - Psychiatric Psychiatric: A&O x's 3, appropriate affect, intact judgment & insight - Labs CBC & Chem 7: 10/15/17 06:05 10/15/17 06:05 Labs: Abnormal Lab Results - Last 24 Hours (Table) 10/11/17 10/15/17 10/15/17 Range/Units 16:36 06:05 06:05 WBC 12.7 H (3.8-10.6) k/uL RBC 3.41 L (4.30-5.90) m/uL Hgb 7.0 L* (13.0-17.5) gm/dL Hct 24.8 L (39.0-53.0) % MCV 72.7 L (80.0-100.0) fL MCH 20.5 L (25.0-35.0) pg MCHC 28.2 L (31.0-37.0) g/dL RDW 18.6 H (11.5-15.5) % Neutrophils # 9.2 H (1.3-7.7) k/uL Monocytes # 1.2 H (0-1.0) k/uL Potassium 5.5 H (3.5-5.1) mmol/L BUN 21 H (9-20) mg/dL Creatinine 1.31 H (0.66-1.25) mg/dL Calcium 7.8 L (8.4-10.2) mg/dL Crossmatch See Detail Microbiology - Last 24 Hours (Table) 10/12/17 14:00 Anaerobic Culture - Preliminary Pleural Fluid 10/12/17 14:00 Gram Stain - Preliminary Other - Other Tissue Culture - Preliminary Alpha Hemolytic Streptococcus 10/12/17 14:00 Gram Stain - Preliminary Pleural Fluid Body Fluid Culture - Preliminary Assessment and Plan Assessment: Severe anemia hemoglobin 6.9 we will monitor and observe, hemoglobin overall remains stable patient has a component of the microcytic anemia evaluation can be performed outpatient basis Stage III renal failure was slightly worsening of creatinine patient would benefit from IV fluids, will DC the vancomycin continue Zosyn for now Left-sided empyema, status post decortication and placement of 3 chest tubes Complicated left parapneumonic effusion loculated in nature Severe morbid obesity Mood disorder depression Sepsis related to empyema complicated pneumonia Plan: Gentle rehydration, monitor renal functions closely, will stop vancomycin continue Zosyn Chest tube removal as per thoracic surgery Pain control DVT and peptic ulcer disease prophylaxis Deep breathing exercises incentive spirometry Increase activity as tolerated IV antibiotics with Zosyn Status post left-sided for thoracotomy and decortication tolerated well Follow-up on culture results and report as well as cytology and tissue pathology sent from OR Time with Patient: Greater than 30
[2017-10-15] MEDS: SODIUM CHLORIDE 0.9% 1,000 ML IV SCH ×2 (10:24→23:07)
[2017-10-15] MEDS: MULTIVITAMINS, THERA 1 EACH TAB PO SCH (12:10)
--- NOTE | 2017-10-15 12:53 | PN ---
PROGRESS NOTE DATE OF SERVICE: 10/15/2017 REASON FOR FOLLOWUP: Left-sided empyema. INTERVAL HISTORY: The patient is currently afebrile. He has been breathing comfortably. Overall, pain to the left lower lung has decreased. Denies having any worsening shortness of breath. No abdominal pain and no diarrhea. PHYSICAL EXAMINATION: Blood pressure 118/56, pulse of 87, temperature 98.6. He is 96% on 2 L nasal cannula. General description is a middle-aged male up in bed in no distress. HEENT examination in the neck area at the site of previous central line with no evidence of any swelling, redness or induration. LUNGS: Unlabored breathing with decreased breath sounds at the bases, no wheeze. HEART: S1, S2. Regular rate and rhythm. ABDOMEN: Soft, no tenderness. LABS: Hemoglobin 7, white count 4.7, BUN of 21, creatinine 1.31. DIAGNOSTIC IMPRESSION AND PLAN: Patient with empyema, status post decortication, while no chest tube was discontinued. Culture showing also hemolytic strep, which is usually sensitive pathogen. Patient will be continued on the Zosyn. Will discontinue the vancomycin to decrease risk of nephrotoxicity. Patient will likely need IV antibiotic on discharge in view of extensive infection. Continue supportive care. MMODL / IJN: [id number] /
[2017-10-15] MEDS: MAGNESIUM HYDROXIDE 2,400 MG/10 ML CUP PO PRN (14:28)
[2017-10-15] MEDS ORDERED: SODIUM POLYSTYRENE SULFONATE 15 GM/60 ML BOTTLE PO STA (18:14)
--- NOTE | 2017-10-15 19:42 | PN ---
PROGRESS NOTE DATE OF SERVICE: 10/15/2017 PRESENTING COMPLAINT: Tired. INTERVAL HISTORY: Patient presented with left loculated pleural effusion and empyema, status post decortication. Cultures are growing strep. Chest tubes have all been taken out. The patient is doing better. Not much of an appetite. Vancomycin was discontinued per ID. REVIEW OF SYSTEMS: Done for constitutional, cardiovascular, GI, pulmonary; relevant findings as above. CURRENT MEDICATIONS: Current medications include IV Zosyn. Vancomycin discontinued. PHYSICAL EXAMINATION: Temperature 98.7, pulse 81, respiration 20, blood pressure 108/56, pulse ox 95% on 2 L. GENERAL APPEARANCE: Lying in bed, comfortable. EYES: Pupils equal. Conjunctivae normal. HEENT: External appearance of nose and ears normal. Oral cavity normal. NECK: JVD not raised. Mass not palpable. RESPIRATORY: Effort normal. LUNGS: Decreased breath sounds. CARDIOVASCULAR: First and second sounds normal. No edema. ABDOMEN: Soft, non-tender. Liver and spleen not palpable. PSYCHIATRY: Alert and oriented x3. Mood and affect normal. INVESTIGATIONS: White count 12.7, hemoglobin 7, potassium 5.5, BUN 21, creatinine 1.31. ASSESSMENT: 1. Large left lobulated pleural effusion and parapneumonic effusion with empyema causing sepsis, present on admission, now with chest tubes that are removed, status post decortication. 2. Peripheral neuropathy, idiopathic. 3. Gout. 4. Depression not otherwise specified. 5. Primary osteoarthritis in multiple joints. 6. Hyperlipidemia. 7. Bilateral nephrolithiasis, asymptomatic. 8. Gallstones, asymptomatic. 9. Acute blood loss anemia, possible hemolysis, status post blood transfusion. 10.Hyperkalemia. PLAN: Continue with IV Zosyn. Vancomycin has been discontinued. Will give one dose of Kayexalate. Will follow. MMODL / IJN: [id number] /
[2017-10-15] MEDS: SENNOSIDES-DOCUSATE SODIUM 1 EACH TAB PO SCH (20:42)
[2017-10-15] MEDS: ATORVASTATIN 40 MG TAB PO SCH (20:42)
[2017-10-15] MEDS: NORTRIPTYLINE 25 MG CAP PO SCH (20:43)
[2017-10-16] MEDS: PANTOPRAZOLE 40 MG TABLET PO SCH (06:41)
[2017-10-16 07:04] LABS: Calcium 7.8 mg/dL (8.4-10.2); Potassium 5.4 mmol/L (3.5-5.1)
[2017-10-16] MEDS: IPRATROPIUM-ALBUTEROL 3 ML NEB IH SCH ×4 (07:29→19:16)
--- NOTE | 2017-10-16 07:36 | XR ---
EXAMINATION TYPE: XR chest 2V DATE OF EXAM: 10/16/2017 COMPARISON: 10/10/2017 HISTORY: Postthoracotomy. Follow-up exam. Shortness of breath. TECHNIQUE: Frontal and lateral views of the chest are obtained. FINDINGS: Left-sided thoracostomy tube has been removed in the interim. No pneumothorax is identifie d. There remains patchy left sided airspace disease throughout the lung with left hemithorax volume l oss and left hemidiaphragm elevation. Right lung remains clear. Cardia mediastinal silhouette is stab le. Cervical spine postsurgical changes are again noted. IMPRESSION: 1. Interval removal of the left-sided thoracostomy tube with no residual pneumothorax. 2. Unchanged multifocal left-sided airspace disease that may represent multifocal atelectasis given t he postthoracotomy change and hemithorax volume loss. Pneumonia is also a possibility.
[2017-10-16] MEDS: HYDROcodone/APAP 10-325MG 1 EACH TAB PO PRN ×2 (07:48→15:42)
[2017-10-16] MEDS: HEPARIN SODIUM,PORCINE 5,000 UNIT/ML 1 ML VIAL SQ SCH ×2 (07:59→15:42)
[2017-10-16] MEDS: PIPERACILLIN-TAZOBACTAM 3.375 GM in DEXTROSE/WATER 1 50ML.BAG IVPB SCH (07:59)
[2017-10-16] MEDS: ESCITALOPRAM 10 MG TAB PO SCH (08:06)
[2017-10-16] MEDS: CYCLOBENZAPRINE 10 MG TAB PO SCH ×3 (08:06→21:11)
[2017-10-16] MEDS: ALLOPURINOL 300 MG TAB PO SCH (08:06)
[2017-10-16] MEDS: CITALOPRAM HYDROBROMIDE 20 MG TAB PO SCH (08:06)
[2017-10-16] MEDS: PREGABALIN 75 MG CAP PO SCH ×2 (08:06→21:11)
[2017-10-16] MEDS: MAGNESIUM HYDROXIDE 2,400 MG/10 ML CUP PO PRN (10:28)
[2017-10-16 11:00] VITALS: BMI 33.9
--- NOTE | 2017-10-16 11:05 | P.PN ---
Subjective Progress Note Date: 10/16/17 Principal diagnosis: Loculated left pleural effusion, COPD, morbid obesity, diabetes mellitus type 2 , GERD, history of hypertension, history of nicotine dependence and smoking 1 month ago, osteoarthritis. POD #4 diagnostic left thoracoscopic, left thoracotomy, complete decortication left lung. Patient is sitting up to his bedside edge. He is in no acute distress. He reports that his pain is well controlled. He is achieving 1500 mL with encouragement on his incentive spirometry. His oxygen saturations are 99% on 2 L nasal cannula. Objective - Vital Signs Vital signs: Vital Signs Temp 98.6 F 10/16/17 07:55 Pulse 111 H 10/16/17 10:27 Resp 16 10/16/17 07:55 BP 115/57 10/16/17 07:55 Pulse Ox 81 L 10/16/17 10:27 Intake & Output 10/15/17 10/16/17 10/16/17 18:59 06:59 18:59 Intake Total 600 240 Output Total 750 850 175 Balance -150 -850 65 Weight 126.5 kg Intake: IV 300 Piperacillin-Tazobactam 3 50 .375 gm In Dextrose/Water 1 50ml.bag @ 12.5 mls/hr IVPB Q8HR [facility] Rx#: [id number] Vancomycin 1,750 mg In 250 Sodium Chloride 0.9% 250 ml @ 125 mls/hr IVPB Q12H [facility] Rx#:[id number] Oral 300 240 Output: Urine 750 850 175 Other: Voiding Method Urinal Urinal Urinal # Voids 2 - Constitutional General appearance: Present: cooperative, no acute distress, obese - Respiratory Details: Lung sounds with few scattered crackles bilaterally left greater than right. Respirations are symmetrical and nonlabored. Oxygen saturation are 99% on 2 L nasal cannula. He is achieving 1500 mL on his incentive spirometry. - Cardiovascular Details: Regular rhythm and rate. S1 and S2 present, negative for S3, gallop or murmur. Remote telemetry showing normal sinus rhythm heart rate 81. +2 edema to his bilateral lower extremities. Knee-high SCDs in place to his bilateral lower extremities. - Gastrointestinal Gastrointestinal Comment(s): Abdomen is soft, nontender nondistended. Active bowel sounds all 4 abdominal quadrants. Tolerating oral intake. No bowel movement since surgery. Passing flatus. - Genitourinary Genitourinary Comment(s): Voiding clear yellow urine. - Integumentary Integumentary Comment(s): Skin is warm and dry. Left chest incisions clean dry and approximated. No redness present. Scant serosanguineous drainage from old chest tube insertion sites. - Neurologic Neurologic: Present: CNII-XII intact - Musculoskeletal Musculoskeletal: Present: gait normal, strength equal bilaterally - Psychiatric Psychiatric: Present: A&O x's 3, appropriate affect, intact judgment & insight - Allied health notes Allied health notes reviewed: nursing - Labs CBC & Chem 7: 10/15/17 06:05 10/16/17 05:38 Labs: Abnormal Lab Results - Last 24 Hours (Table) 10/16/17 Range/Units 05:38 Potassium 5.4 H (3.5-5.1) mmol/L Carbon Dioxide 31 H (22-30) mmol/L Calcium 7.8 L (8.4-10.2) mg/dL Microbiology - Last 24 Hours (Table) 10/12/17 14:00 Anaerobic Culture - Preliminary Other - Other 10/12/17 14:00 Gram Stain - Preliminary Pleural Fluid Body Fluid Culture - Preliminary - Imaging and Cardiology Chest x-ray: report reviewed, image reviewed Assessment and Plan (1) Loculated pleural effusion Current Visit: Yes Status: Acute Code(s): J90 - PLEURAL EFFUSION, NOT ELSEWHERE CLASSIFIED SNOMED Code(s): 965107692 (2) COPD (chronic obstructive pulmonary disease) Current Visit: Yes Status: Chronic Code(s): J44.9 - CHRONIC OBSTRUCTIVE PULMONARY DISEASE, UNSPECIFIED SNOMED Code(s): 15715188 (3) History of gastric surgery Current Visit: No Status: Resolved Code(s): Z98.890 - OTHER SPECIFIED POSTPROCEDURAL STATES SNOMED Code(s): 550255161 (4) Tobacco dependence in remission Current Visit: No Status: Resolved Code(s): F17.201 - NICOTINE DEPENDENCE, UNSPECIFIED, IN REMISSION SNOMED Code(s): 712470626 Plan: 1. Continue antibiotics managed by Dr. Piedra from infectious disease 2. Encourage use of incentive spirometry every hour while awake. Pulmonary management per Dr. Hurley's recommendations. 3. Pain control per when necessary orders. 4. Wean oxygen as tolerated. 5. Increase activity as tolerated, out of bed for all meals. Physical therapy consulted. We will consult occupational therapy. 6. Medical management per primary care service. 7. We will continue to see the patient on a when necessary status. Follow-up with Dr. Farris in the office in 2 weeks with a 2 view chest x-ray. Time with Patient: Greater than 30
[2017-10-16] MEDS: SODIUM CHLORIDE 0.9% 1,000 ML IV SCH (12:06)
[2017-10-16] MEDS: cefTRIAXone IN SWFI 2,000 MG/20 ML SYRINGE IVP SCH (14:18)
--- NOTE | 2017-10-16 14:53 | P.PN ---
Subjective Progress Note Date: 10/16/17 Principal diagnosis: Empyema left lung, severe sepsis, complicated pneumonia, COPD, morbid obesity 10/16/2017, patient seen and evaluated examined care plan discussed with thoracic surgery left-sided chest tubes have been removed patient has been doing well patient has been evaluated by infectious disease services plan is for a PICC line and long-term antibiotic with IV Rocephin and clinically patient is doing well taking deep breathing so as incentive spirometry and chest x-ray performed today reviewed the changes are likely chronic long-term and on the left side related to pleural scarring labs reviewed medications reviewed 10/15/2017, patient seen and evaluated examined today care plan discussed with the cardiothoracic surgery patient chest tube was stable very minimal output is present breathing comfortably denies any chest pain one of the tube has been removed yesterday likely one more tube will be removed later on today denies any cough or sputum production pain is well managed and will control with current medication patient remains on broad-spectrum antibiotics with IV Zosyn and vancomycin. Tissue cultures are positive for alpha strep, his cytology and histopathology is negative for neoplastic process but the overall findings in the pathological description is consistent with empyema, chest x-ray reviewed laboratory data and medications reviewed as well 10/14/2017, patient seen eval reexamined during the rounds clinically patient has been doing much better one of the chest tube as removed still after chest tube chest x-ray performed today reviewed he is breathing comfortably denies any chest pain some pain at the operative site is present but well controlled with the current pain medications he's been doing deep breathing exercises incentive spirometry no air leak is present and pleural VAC [place] his labs from today's reviewed hemoglobin drop down to 6.8 and the white cell count is 14 ,600 the BUN/creatinine is 22 and 1.1 which remains stable [place] pleural fluid culture results and reports are reviewed fungal culture preliminary pendingl, no AFB isolated so far my final path report is not available the Gram stain of tissue culture positive gram-positive cocci patient is currently on vent: Zosyn 10/13/2017, patient seen and evaluated examined clinically remains stable with stable hemodynamics no air leak is present chest tube are being placed on water seal discussed with cardiothoracic surgery service, path report preliminary as well as culture results and reports are reviewed gram-positive cocci are seen on Gram stain on tissue staining however negative on fluid is staining, stable left-sided triple-lumen catheter overall stable left-sided on 3 chest tube 10/12/2017, patient seen eval reexamined he is postoperative operative day #0 for left thoracotomy patient has 3 chest tubes is arousable opens eyes follow simple commands has been on pain medications he is doing deep breathing exercise and I-S as well, operative reports reviewed operative findings reviewed , culture results and reports are pending Objective - Vital Signs Vital signs: Vital Signs Temp 98.3 F 10/16/17 12:00 Pulse 82 10/16/17 12:00 Resp 16 10/16/17 12:00 BP 106/58 10/16/17 12:00 Pulse Ox 96 10/16/17 12:00 Intake & Output 10/15/17 10/16/17 10/16/17 18:59 06:59 18:59 Intake Total 600 480 Output Total 750 850 475 Balance -150 -850 5 Weight 126.5 kg 126.5 kg Intake: IV 300 Piperacillin-Tazobactam 3 50 .375 gm In Dextrose/Water 1 50ml.bag @ 12.5 mls/hr IVPB Q8HR [facility] Rx#: [id number] Vancomycin 1,750 mg In 250 Sodium Chloride 0.9% 250 ml @ 125 mls/hr IVPB Q12H [facility] Rx#:[id number] Oral 300 480 Output: Urine 750 850 475 Other: Voiding Method Urinal Urinal Urinal # Voids 2 0 # Bowel Movements 0 - Exam - Constitutional General appearance: disheveled, mild distress, obese - EENT Eyes: anicteric sclerae, EOMI, PERRLA, normal appearance ENT: normal oropharynx Ears: bilateral: normal - Neck Carotids: bilateral: upstroke normal, bruit absent Thyroid: bilateral: normal size - Respiratory Respiratory: right: CTA, left: Improved air entry compared to prior exam - Cardiovascular Rhythm: regular Heart sounds: normal: S1, S2 - Gastrointestinal General gastrointestinal: normal bowel sounds, soft - Integumentary Integumentary: normal, normal turgor - Neurologic Normal neuro exam Neurologic: CNII-XII intact - Musculoskeletal Musculoskeletal: gait normal, generalized weakness, strength equal bilaterally - Psychiatric Psychiatric: A&O x's 3, appropriate affect, intact judgment & insight - Labs CBC & Chem 7: 10/15/17 06:05 10/16/17 05:38 Labs: Abnormal Lab Results - Last 24 Hours (Table) 10/16/17 Range/Units 05:38 Potassium 5.4 H (3.5-5.1) mmol/L Carbon Dioxide 31 H (22-30) mmol/L Calcium 7.8 L (8.4-10.2) mg/dL Microbiology - Last 24 Hours (Table) 10/12/17 14:00 Anaerobic Culture - Preliminary Other - Other 10/12/17 14:00 Gram Stain - Preliminary Pleural Fluid Body Fluid Culture - Preliminary Assessment and Plan Assessment: Severe anemia hemoglobin 7 we will monitor and observe, hemoglobin overall remains stable patient has a component of the microcytic anemia evaluation can be performed outpatient basis Stage III renal failure was slightly worsening of creatinine patient would benefit from IV fluids, observe off of Gav[place]: Zosyn on IV Rocephin renal functions slowly improving Left-sided empyema, likely strep pneumonia related status post decortication continued to recover improve slowly as noted above Complicated left parapneumonic effusion loculated in nature Severe morbid obesity Mood disorder depression Sepsis related to empyema complicated pneumonia Plan: Gentle rehydration, monitor renal functions closely, Chest tube removed Pain control DVT and peptic ulcer disease prophylaxis Deep breathing exercises incentive spirometry Increase activity as tolerated IV antibiotics with IV Rocephin IR consult for the PICC line if okay with infectious disease services Status post left-sided for thoracotomy and decortication tolerated well Follow-up on culture results and report as well as cytology and tissue pathology Time with Patient: Greater than 30
[2017-10-16] MEDS: MULTIVITAMINS, THERA 1 EACH TAB PO SCH (15:42)
[2017-10-16] MEDS ORDERED: SODIUM POLYSTYRENE SULFONATE 15 GM/60 ML BOTTLE PO STA (20:11)
--- NOTE | 2017-10-16 20:37 | PN ---
PROGRESS NOTE DATE OF SERVICE: 10/16/2017 PRESENTING COMPLAINT: Tired. INTERVAL HISTORY: This patient presented with left loculated pleural effusion and empyema, status post decortication. Chest tubes have been removed. Cultures grew strep. PICC line is in place. Appetite is getting better. Patient has been constipated, getting laxatives. I did tell the nurse to give the patient an enema this afternoon. REVIEW OF SYSTEMS: Done for constitutional, cardiovascular, GI, pulmonary; relevant findings as above. CURRENT MEDICATIONS: Current medications include IV ceftriaxone. PHYSICAL EXAMINATION: Temperature 98.3, pulse 77, respiration 16, blood pressure 115/73, pulse ox 100% on 2 L. GENERAL APPEARANCE: Lying in bed, comfortable. EYES: Pupils equal. Conjunctivae normal. HEENT: External appearance of nose and ears normal. Oral cavity normal. NECK: JVD not raised. Mass not palpable. RESPIRATORY: Effort normal. LUNGS: Decreased breath sounds. CARDIOVASCULAR: First and second sounds normal. No edema. ABDOMEN: Soft, nontender. Liver and spleen not palpable. PSYCHIATRY: Alert and oriented x3. Mood and affect normal. Right extremity has a PICC line in place. INVESTIGATIONS: Potassium 5.4, BUN 17, creatinine 1.19. ASSESSMENT: 1. Large left lobulated pleural effusion and parapneumonic effusion with empyema causing sepsis, present on admission. Chest tubes now removed, status post decortication with cultures growing streptococcus. 2. Peripheral neuropathy, idiopathic. 3. Gout. 4. Depression not otherwise specified. 5. Primary osteoarthritis in multiple joints. 6. Hyperlipidemia. 7. Bilateral nephrolithiasis, asymptomatic. 8. Gallstones, asymptomatic. 9. Acute blood loss anemia, possible hemolysis, status post blood transfusion. 10.Hyperkalemia. PLAN: The patient will be switched over to ceftriaxone. Vancomycin was discontinued. Will give another dose of Kayexalate and put the patient on a low-potassium diet. MMODL / IJN: [id number] /
[2017-10-16] MEDS: SENNOSIDES-DOCUSATE SODIUM 1 EACH TAB PO SCH (21:11)
[2017-10-16] MEDS: NORTRIPTYLINE 25 MG CAP PO SCH (21:11)
[2017-10-16] MEDS: ATORVASTATIN 40 MG TAB PO SCH (21:11)
--- NOTE | 2017-10-16 22:34 | PN ---
PROGRESS NOTE DATE OF SERVICE: 10/16/2017. REASON FOR FOLLOWUP: Left-sided empyema with alpha hemolytic Strep, status post VATS procedure. INTERVAL HISTORY: The patient is afebrile. He is still complaining of some pain on the left lower chest especially with deep breaths. Overall cough has decreased in intensity. The patient denies having nausea, no vomiting. No abdominal pain and no diarrhea. He did get a PICC line for outpatient IV antibiotic therapy yesterday. EXAMINATION: Blood pressure is 115/73 with a pulse of 77, temperature 98.3. He is 100% on 2 L nasal cannula. General description is a middle-aged male lying in bed in no distress. Respiratory system: Unlabored breathing with decreased breath sounds in the bases. No wheeze. Heart S1, S2. Regular rate and rhythm. Abdomen soft, no tenderness. Extremities: No edema of the feet. LABS: Hemoglobin 7, white count 12.7, BUN of 17, creatinine is 1.19. The tissue culture has . Rest of the cultures remain negative. DIAGNOSTIC IMPRESSION AND PLAN: Patient with a right-sided empyema status post decortication and drainage of the fluid cultures now with alpha hemolytic Strep. Antibiotic has been adjusted to Rocephin 2 g daily. That will be continued in the outpatient setting for at least 2 more weeks with close outpatient followup. Continue supportive care. MMODL / IJN: [id number] /
[2017-10-17] MEDS: HEPARIN SODIUM,PORCINE 5,000 UNIT/ML 1 ML VIAL SQ SCH ×2 (01:14→08:32)
[2017-10-17 02:07] VITALS: RESP 18
[2017-10-17] MEDS: HYDROcodone/APAP 10-325MG 1 EACH TAB PO PRN ×2 (03:17→11:58)
[2017-10-17] MEDS: SODIUM CHLORIDE 0.9% 1,000 ML IV SCH ×2 (05:41→15:04)
[2017-10-17] MEDS: IPRATROPIUM-ALBUTEROL 3 ML NEB IH SCH ×2 (07:28→11:59)
[2017-10-17] MEDS: PREGABALIN 75 MG CAP PO SCH (08:32)
[2017-10-17] MEDS: ALLOPURINOL 300 MG TAB PO SCH (08:32)
[2017-10-17] MEDS: ESCITALOPRAM 10 MG TAB PO SCH (08:32)
[2017-10-17] MEDS: PANTOPRAZOLE 40 MG TABLET PO SCH (08:32)
[2017-10-17] MEDS: CITALOPRAM HYDROBROMIDE 20 MG TAB PO SCH (08:32)
[2017-10-17] MEDS: CYCLOBENZAPRINE 10 MG TAB PO SCH (08:32)
--- NOTE | 2017-10-17 09:17 | P.PN ---
Subjective Progress Note Date: 10/17/17 Principal diagnosis: Empyema left lung, severe sepsis, complicated pneumonia, COPD, morbid obesity 10/17/2017, patient seen and evaluated examined during the rounds doing well but chest U have been removed patient is status post right upper extremity PICC line on IV Rocephin tolerating well eval off of oxygen saturation is in mid 90s some level of discomfort is present but severity or chest pain has improved significantly and manageable on current pain medications 10/16/2017, patient seen and evaluated examined care plan discussed with thoracic surgery left-sided chest tubes have been removed patient has been doing well patient has been evaluated by infectious disease services plan is for a PICC line and long-term antibiotic with IV Rocephin and clinically patient is doing well taking deep breathing so as incentive spirometry and chest x-ray performed today reviewed the changes are likely chronic long-term and on the left side related to pleural scarring labs reviewed medications reviewed 10/15/2017, patient seen and evaluated examined today care plan discussed with the cardiothoracic surgery patient chest tube was stable very minimal output is present breathing comfortably denies any chest pain one of the tube has been removed yesterday likely one more tube will be removed later on today denies any cough or sputum production pain is well managed and will control with current medication patient remains on broad-spectrum antibiotics with IV Zosyn and vancomycin. Tissue cultures are positive for alpha strep, his cytology and histopathology is negative for neoplastic process but the overall findings in the pathological description is consistent with empyema, chest x-ray reviewed laboratory data and medications reviewed as well 10/14/2017, patient seen eval reexamined during the rounds clinically patient has been doing much better one of the chest tube as removed still after chest tube chest x-ray performed today reviewed he is breathing comfortably denies any chest pain some pain at the operative site is present but well controlled with the current pain medications he's been doing deep breathing exercises incentive spirometry no air leak is present and pleural VAC Mabie his labs from today's reviewed hemoglobin drop down to 6.8 and the white cell count is 14 ,600 the BUN/creatinine is 22 and 1.1 which remains stable Ward pleural fluid culture results and reports are reviewed fungal culture preliminary pendingl, no AFB isolated so far my final path report is not available the Gram stain of tissue culture positive gram-positive cocci patient is currently on vent: Zosyn 10/13/2017, patient seen and evaluated examined clinically remains stable with stable hemodynamics no air leak is present chest tube are being placed on water seal discussed with cardiothoracic surgery service, path report preliminary as well as culture results and reports are reviewed gram-positive cocci are seen on Gram stain on tissue staining however negative on fluid is staining, stable left-sided triple-lumen catheter overall stable left-sided on 3 chest tube 10/12/2017, patient seen eval reexamined he is postoperative operative day #0 for left thoracotomy patient has 3 chest tubes is arousable opens eyes follow simple commands has been on pain medications he is doing deep breathing exercise and I-S as well, operative reports reviewed operative findings reviewed , culture results and reports are pending Objective - Vital Signs Vital signs: Vital Signs Temp 98.1 F 10/17/17 06:57 Pulse 74 10/17/17 07:38 Resp 18 10/17/17 06:57 BP 121/69 10/17/17 06:57 Pulse Ox 92 L 10/17/17 06:57 Intake & Output 10/16/17 10/17/17 10/17/17 18:59 06:59 18:59 Intake Total 680 600 Output Total 775 800 Balance -95 -200 Weight 126.5 kg Intake: Intake, IV Titration 600 Amount Sodium Chloride 0.9% 1, 600 000 ml @ 75 mls/hr IV . [id number] [facility] Rx#:[id number] Oral 680 Output: Urine 775 800 Other: Voiding Method Urinal # Voids 0 2 # Bowel Movements 0 - Exam - Constitutional General appearance: disheveled, mild distress, obese - EENT Eyes: anicteric sclerae, EOMI, PERRLA, normal appearance ENT: normal oropharynx Ears: bilateral: normal - Neck Carotids: bilateral: upstroke normal, bruit absent Thyroid: bilateral: normal size - Respiratory Respiratory: right: CTA, left: Improved air entry compared to prior exam - Cardiovascular Rhythm: regular Heart sounds: normal: S1, S2 - Gastrointestinal General gastrointestinal: normal bowel sounds, soft - Integumentary Integumentary: normal, normal turgor - Neurologic Normal neuro exam Neurologic: CNII-XII intact - Musculoskeletal Musculoskeletal: gait normal, generalized weakness, strength equal bilaterally - Psychiatric Psychiatric: A&O x's 3, appropriate affect, intact judgment & insight - Labs CBC & Chem 7: 10/15/17 06:05 10/16/17 05:38 Labs: Microbiology - Last 24 Hours (Table) 10/12/17 14:00 Anaerobic Culture - Final Pleural Fluid 10/12/17 14:00 Anaerobic Culture - Final Other - Other 10/12/17 14:00 Gram Stain - Final Pleural Fluid Body Fluid Culture - Final Assessment and Plan Assessment: Severe anemia hemoglobin 7 we will monitor and observe, hemoglobin overall remains stable patient has a component of the microcytic anemia evaluation can be performed outpatient basis Stage III renal failure continued to improve slowly Left-sided empyema, likely strep pneumonia related status post decortication continued to recover improve slowly as noted above, patient is status post PICC line will get IV Rocephin on outpatient basis Complicated left parapneumonic effusion loculated in nature Severe morbid obesity Mood disorder depression Sepsis related to empyema complicated pneumonia Plan: Status post PICC line patient can be discharged home from pulmonary standpoint with follow-up on outpatient setting Pain control DVT and peptic ulcer disease prophylaxis Deep breathing exercises incentive spirometry Increase activity as tolerated IV antibiotics with IV Rocephin with a PICC line Status post left-sided for thoracotomy and decortication tolerated well Follow-up on culture results and report as well as cytology and tissue pathology Time with Patient: Greater than 30
[2017-10-17 09:39] LABS: Potassium 4.7 mmol/L (3.5-5.1)
[2017-10-17] MEDS: MULTIVITAMINS, THERA 1 EACH TAB PO SCH (11:59)
[2017-10-17 12:06] LABS: Anisocytosis Slight; Basophils % (A) 0 %; Eosinophils # (A) 0.6 k/uL (0-0.7); Eosinophils % (A) 6 %; HCT 26.8 % (39.0-53.0); HGB 7.3 gm/dL (13.0-17.5); Hypochromasia Marked; Lymphocytes # (A) 1.6 k/uL (1.0-4.8); Lymphocytes % (A) 15 %; MCH 20.4 pg (25.0-35.0); MCV 75.3 fL (80.0-100.0); Microcytosis Moderate; Monocytes # (A) 0.5 k/uL (0-1.0); Monocytes % (A) 5 %; Neutrophils # (A) 7.7 k/uL (1.3-7.7); Neutrophils % (A) 72 %; Platelet Count 398 k/uL (150-450); Poikilocytosis Slight; RBC 3.56 m/uL (4.30-5.90); WBC 10.7 k/uL (3.8-10.6)
[2017-10-17] MEDS: cefTRIAXone IN SWFI 2,000 MG/20 ML SYRINGE IVP SCH (15:04)
--- NOTE | 2017-10-17 15:04 | DS ---
DISCHARGE SUMMARY DATE OF SERVICE: 10/17/2017 DATE OF ADMISSION: 10/10/2017 DATE OF DISCHARGE: 10/17/2017 FINAL DIAGNOSES: 1. Large left lobulated pleural effusion and parapneumonic effusion with empyema causing sepsis, present on admission, with cultures growing streptococcus. 2. Peripheral neuropathy, idiopathic. 3. Chronic gout. 4. Depression not otherwise specified. 5. Primary osteoarthritis in multiple joints. 6. Hyperlipidemia. 7. Bilateral nephrolithiasis, asymptomatic. 8. Gallstones, asymptomatic. 9. Acute blood loss anemia, possibly from hemolysis. 10.Hyperkalemia. HOSPITAL COURSE: This patient was transferred here from [facility], where patient presented with shortness of breath, found to have a loculated large left pleural effusion/empyema. Decortication was carried out. Cultures did grow streptococcus. Doing much better. Appetite is getting better. The patient is afebrile. On examination, lungs reveal decreased breath sound. CARDIOVASCULAR: First and second sounds normal. PSYCH: Alert and oriented x3. CONSULTATIONS: 1. Dr. Piedra from Infectious Disease. 2. Dr. Hurley from Pulmonary. 3. Dr. Farris from Cardiothoracic Surgery. DISCHARGE MEDICATIONS: 1. Prilosec 40 mg p.o. daily. 2. Allopurinol 300 mg p.o. daily. 3. Flexeril 10 mg p.o. t.i.d. 4. Lexapro 10 mg p.o. daily. 5. Multivitamin 1 tablet p.o. daily. 6. Pamelor 25 mg p.o. at bedtime. 7. Ceftriaxone 2000 mg IV q.24 for a total of 15 days. 8. Lipitor 40 mg at bedtime. 9. Celexa 20 mg a day. 10.Barnhill 10 one tablet q.8 p.r.n. 11.DuoNeb t.i.d. 12.Lyrica 150 mg b.i.d. 13.Senokot-S 2 tablets p.o. at bedtime. 14.Ambien 10 mg at bedtime p.r.n. for insomnia. DISPOSITION: [facility]. Follow up with Dr. Ferrari at [facility]. Follow up with Dr. Farris on November 20, 2017. Follow up with Dr. Bronson Hurley in one week. Follow up with Dr. Sajjad Tadeo in one week. Labs CBC and BMP weekly. X-ray 2 views in 2 weeks' time at [facility]. Care was discussed with Dr. Piedra from Infectious Disease. Discussion and discharge planning more than 35 minutes. MMMARIA DE JESUSL / IJN: [id number] /
[2017-10-17 15:26] VITALS: BP 111/66; PULSE 100; TEMP 99
--- NOTE | 2017-10-17 16:46 | PN ---
PROGRESS NOTE DATE OF SERVICE: 10/16/2017 REASON FOR FOLLOWUP: Left-sided empyema, alpha hemolytic strep. INTERVAL HISTORY: The patient is afebrile. He was seen on rounds earlier this afternoon. The patient's pain to the left lower chest has improved. The patient denies having any worsening shortness of breath. Minimal cough. No nausea, vomiting, abdominal pain, and no diarrhea. PHYSICAL EXAMINATION: Blood pressure is 111/66, pulse of 100, temperature 99. He is 92% on room air. General description is a middle-aged male up in the chair in no distress. RESPIRATORY SYSTEM: Unlabored breathing. Some coarse breath sounds in the bases. No wheeze. HEART: S1, S2. Regular rate and rhythm. ABDOMEN: Soft. No tenderness. LABS: Hemoglobin 7.3, white count 10.7, BUN of 12, creatinine 1.10. DIAGNOSTIC IMPRESSION AND PLAN: Patient with left-sided empyema, status post VATS procedure and decortication. The patient at this time will continue Rocephin 2 grams daily for another 2 weeks with close outpatient followup. Prescription was provided to the patient. Continue supportive care. Plan of care was discussed with the admitting physician. MMODL / IJN: [id number] /
== END 2017-10-17 15:44 | DRG 853 ==
LOC: PREOBSVTOIN 17:14 → 6SEL 20:52 → 4MS4W 10-16 22:45
PROVIDERS: ADMIT Hospitalist; ATTEND Hospitalist
PROC: 0BNL0ZZ Release Left Lung, Open Approach (ICD-10-PCS; 2017-10-12)
PROC: 0BJL4ZZ Inspection of Left Lung, Percutaneous Endoscopic Approach (ICD-10-PCS; 2017-10-12)
PROC: 30233N1 Transfusion of Nonautologous Red Blood Cells into Peripheral Vein, Percutaneous Approach (ICD-10-PCS; principal; 2017-10-14 10:30)
DX: A40.3 Sepsis due to Streptococcus pneumoniae (principal); R65.20 Severe sepsis without septic shock; J86.9 Pyothorax without fistula; J90 Pleural effusion, not elsewhere classified; J15.4 Pneumonia due to other streptococci; E11.22 Type 2 diabetes mellitus with diabetic chronic kidney disease; D62 Acute posthemorrhagic anemia; E11.42 Type 2 diabetes mellitus with diabetic polyneuropathy; J44.0 Chronic obstructive pulmonary disease with (acute) lower respiratory infection; N18.3 Chronic kidney disease, stage 3 (moderate); E66.01 Morbid (severe) obesity due to excess calories; E87.5 Hyperkalemia; M1A.9XX0 Chronic gout, unspecified, without tophus (tophi); F32.9 Major depressive disorder, single episode, unspecified; E78.5 Hyperlipidemia, unspecified; N20.0 Calculus of kidney; K80.20 Calculus of gallbladder without cholecystitis without obstruction; G47.00 Insomnia, unspecified; M15.9 Polyosteoarthritis, unspecified; G89.4 Chronic pain syndrome; G47.30 Sleep apnea, unspecified; K21.9 Gastro-esophageal reflux disease without esophagitis; I12.9 Hypertensive chronic kidney disease with stage 1 through stage 4 chronic kidney disease, or unspecified chronic kidney disease; Z96.643 Presence of artificial hip joint, bilateral; F17.201 Nicotine dependence, unspecified, in remission; K59.00 Constipation, unspecified; Z82.49 Family history of ischemic heart disease and other diseases of the circulatory system; Z87.442 Personal history of urinary calculi; Z79.899 Other long term (current) drug therapy; Z79.891 Long term (current) use of opiate analgesic; Z79.1 Long term (current) use of non-steroidal anti-inflammatories (NSAID); Z68.33 Body mass index [BMI] 33.0-33.9, adult; Z98.84 Bariatric surgery status; Z80.1 Family history of malignant neoplasm of trachea, bronchus and lung
CPT/HCPCS: 00000; 71045; 71046; 80048; 80053; 80202; 82945; 83615; 84157; 85025; 86850; 86900; 86901; 86920; 87070; 87075; 87102; 87116; 87205; 87206; 88305; 89050; 94640; 94760

== ENCOUNTER → 2017-12-10 | Outpatient (CLI) | payer MEDICARE, OTHER ==
--- NOTE | 2017-12-10 14:06 | CT ---
EXAMINATION TYPE: CT chest w con DATE OF EXAM: 12/10/2017 COMPARISON: NONE HISTORY: 52-year-old male Enlarged lymph nodes TECHNIQUE: Contiguous axial scanning of the chest after the administration of 100 mL of Isovue 300. Coronal/sagittal reconstructions performed. CT DLP: 560.9mGycm. Automatic exposure control utilized for a dose reduction. FINDINGS: Heart is normal size without pericardial effusion. Minimal coronary vessel calcifications are present . Aorta normal caliber with conventional arch vessel branching anatomy. Mild to moderate diffuse distention of the esophagus containing fluid. There is either a small hiatal hernia or some soft tissue thickening at the distal esophagus, axial image 48. Post surgical changes of sleeve gastrectomy. No thoracic lymphadenopathy identified. Some calcified subcarinal left hilar lymph nodes compatible w ith prior granulomatous disease. Patchy and nodular groundglass infiltrates are present throughout the right upper lobe. Some strandy posterior basilar areas of atelectasis are noted. -Irregular patchy densities peripheral left lower lobe measuring up to 1.2 cm, axial image 30, could represent scarring are small infiltrates. Follow-up is recommended to exclude pulmonary nodules. -4 mm right midlung pulmonary nodule axial image 30. No significant pleural effusion. Minimal scattered emphysematous change in the upper lungs. Visualized upper abdomen show some calcified granulomas in the spleen and anterior splenule. Moderate stool at the splenic flexure. Bones: Endplate spondylosis mid to lower thoracic spine. Partially visualized ACDF. IMPRESSION: 1. Mild to moderate fluid distention of the esophagus. There is either a small hiatal hernia or abnor mal soft tissue thickening at the distal esophagus. Differential considerations include prominent gas troesophageal reflux or a relative obstruction at the distal esophagus such as from neoplasm. Direct visualization to further evaluate. 2. Patchy and nodular ground glass infiltrate within the right upper lobe. Infectious infiltrates not excluded. 3. Additional nodular densities in the lungs measuring up to 1.2 cm could also reflect infectious/inf lammatory foci. Three-month follow-up CT is recommended to exclude pulmonary nodules. 4. Postsurgical changes of sleeve gastrectomy.
== END | disposition home or self-care (01) ==
LOC: RADCTMAIN 12:13
PROVIDERS: ATTEND Internal Medicine Sleep Medicine
DX: R91.8 Other nonspecific abnormal finding of lung field (principal); R59.9 Enlarged lymph nodes, unspecified; Z90.3 Acquired absence of stomach [part of]; K22.8 Other specified diseases of esophagus
CPT/HCPCS: 71260; Q9967

== ENCOUNTER → 2018-02-24 | Outpatient (CLI) | payer MEDICARE, OTHER ==
--- NOTE | 2018-02-24 15:27 | XR ---
EXAMINATION TYPE: XR chest 2V DATE OF EXAM: 02/24/2018 COMPARISON: 10/16/2017 INDICATION: Hypoxia right-sided chest pain TECHNIQUE: Frontal and lateral views of the chest are obtained. FINDINGS: The heart size is normal. The pulmonary vasculature is normal. The lungs are clear. Previous left lung infiltrate is resolved. IMPRESSION: 1. No acute pulmonary process.
== END | disposition home or self-care (01) ==
LOC: RADXRMAIN 14:50
PROVIDERS: ATTEND Family Medicine
DX: R09.02 Hypoxemia (principal)
CPT/HCPCS: 71046

== ENCOUNTER → 2018-02-25 | Outpatient (CLI) | payer MEDICARE, OTHER ==
--- NOTE | 2018-02-25 17:13 | CT ---
CT CHEST FOR PULMONARY EMBOLISM. EXAMINATION TYPE: CT angio chest DATE OF EXAM: 02/25/2018 INDICATION: Shortness of breath. CT DLP: 690 mGycm, Automated exposure control for dose reduction was used. CONTRAST: Patient injected with 100 mL of Isovue 370. COMPARISON: 12/10/2017 TECHNIQUE: CT of the chest is performed on a spiral scan at 2 mm thick sections. Study is performed with intravenous contrast timed for evaluation for pulmonary embolism. This will limit additional po rtions of the evaluation. 3-D MIP images reconstructed by the technologist are reviewed on the compu ter in the coronal and sagittal planes. FINDINGS: No persistent filling defects are evident to suggest an acute pulmonary embolism. No mediastinal or hilar adenopathy enlarged by CT criteria is evident. The ascending aorta diameter at the level of the main pulmonary artery is 3.2 cm. The main pulmonary artery diameter at the bifur cation is 2.8 cm. There is a 0.7 cm density within the periphery of the left mid posterior lung. Series 4 image 89 lung on lung windows. Some scattered areas of pneumonitis are present through the right lung. There is thickening at the gastroesophageal junction. This is increased from comparison. The esophagu s appears slightly more dilated and contains an air-fluid level. Postsurgical changes are present in the stomach. Differential would include possible distal gastroesophageal junction neoplasm. However, given the patient's surgery, possibility of hiatal hernia and/or stenosis should be considered. IMPRESSIONS: 1. No acute pulmonary embolism. 2. Increased thickening at the distal gastroesophageal junction. Neoplasm is not excluded and additio nal workup is recommended. Differential diagnosis is partially discussed above. Preliminary results w ere called to Dr. Ang 1622 hours. 3. Scattered areas of pneumonitis within the right upper lung field with nodular density in the poste rior left midlung. Follow-up chest CT in 6 months is recommended to confirm stability
== END | disposition home or self-care (01) ==
LOC: RADCTMAIN 15:52
PROVIDERS: ATTEND Family Medicine
DX: J18.9 Pneumonia, unspecified organism (principal); J98.4 Other disorders of lung
CPT/HCPCS: 71275; Q9967

== ENCOUNTER → 2018-03-10 | Outpatient (CLI) | payer MEDICARE, OTHER ==
[2018-03-10 15:11] LABS: Magnesium 1.7 mg/dL (1.6-2.3); Phosphorus 3.8 mg/dL (2.5-4.5)
[2018-03-10 15:17] LABS: INR 1.2 (<1.2); Partial Thromboplastin Time 25.5 sec (22.0-30.0); Prothrombin Time 11.6 sec (9.0-12.0)
[2018-03-10 19:19] LABS: Folate, Serum 9.2 ng/mL; Vitamin D 25 Hydroxy 18.8 ng/mL (30.0-100.0)
[2018-03-10 19:51] LABS: Iron Saturation 8.02 (15.00-50.00)
[2018-03-10 20:19] LABS: Parathyroid Hormone Intact 142.9 pg/mL (14.0-72.0)
[2018-03-10 21:32] LABS: Hemoglobin A1C 6.1 % (4.0-6.0)
[2018-03-11 15:12] LABS: Zinc, Serum 88 ug/dL (60-130)
[2018-03-12 06:40] LABS: Vitamin B1 52 ug/L (38-122)
[2018-03-12 08:57] LABS: Vitamin A 45 ug/dL (38-106)
== END ==
LOC: LABWHC1 14:22
PROVIDERS: ATTEND Surgery Plastic and Reconstructive Surgery
DX: Z48.815 Encounter for surgical aftercare following surgery on the digestive system (principal); E66.01 Morbid (severe) obesity due to excess calories; E21.1 Secondary hyperparathyroidism, not elsewhere classified; E89.1 Postprocedural hypoinsulinemia; D50.8 Other iron deficiency anemias; E44.0 Moderate protein-calorie malnutrition; E55.9 Vitamin D deficiency, unspecified; K74.1 Hepatic sclerosis; N19 Unspecified kidney failure; K50.90 Crohn's disease, unspecified, without complications; Z98.84 Bariatric surgery status
CPT/HCPCS: 36415; 80061; 82306; 82525; 82607; 82728; 82746; 83036; 83540; 83550; 83735; 83970; 84100; 84134; 84255; 84425; 84443; 84590; 84630; 85610; 85730

== ENCOUNTER 2018-03-30 06:58 | Day surgery (SDC) | payer MEDICARE, OTHER ==
[2018-03-25 17:46] VITALS: BMI 32.8
--- NOTE | 2018-03-29 11:55 | P.GSHP ---
History of Present Illness H&P Date: 03/30/18 CHIEF COMPLAINT: GERD HISTORY OF PRESENT ILLNESS: The patient is a 52-year-old male who presents reports gastroesophageal reflux disease. Upper endoscopy was offered for further evaluation and management. PAST MEDICAL HISTORY: Please see list. PAST SURGICAL HISTORY: Please see list. MEDICATIONS: Please see list. ALLERGIES: Please see list. SOCIAL HISTORY: No illicit drug use FAMILY HISTORY: No reports of Crohn disease or ulcerative colitis. REVIEW OF ORGAN SYSTEMS: CONSTITUTIONAL: No reports of fevers or chills. GI: Denies any blood in stools or constipation. PHYSICAL EXAM: VITAL SIGNS: Stable GENERAL: Well-developed and pleasant in no acute distress. HEENT: No scleral icterus. Extraocular movements grossly intact. Moist buccal mucosa. NECK: Supple without lymphadenopathy. CHEST: Unlabored respirations. Equal bilateral excursions. CARDIOVASCULAR: Regular rate and rhythm. Distal 2+ pulses. ABDOMEN: Soft, nondistended. MUSCULOSKELETAL: No clubbing, cyanosis, or edema. ASSESSMENT: 1. Gastroesophageal reflux disease PLAN: 1. Recommend proceeding with an upper endoscopy Past Medical History Past Medical History: Diabetes Mellitus, GERD/Reflux, Hypertension, Osteoarthritis (OA), Pneumonia, Respiratory Disorder, Sleep Apnea/CPAP/BIPAP Additional Past Medical History / Comment(s): HX DYSPHAGIA. RECENT "HIATAL HERNIA FOUND ON CT SCAN." MORBID OBESITY. HAS LOST 100LBS SINCE 06/2013, NOT TAKING RX FOR HTN, OR DM. GOUT. NO TX FOR SLEEP APNEA NOW. NEUROPATHY BLE. CHRONIC LOWER BACK PAIN. CHRONIC BILATERAL HIP PAIN. LOWER BACK PAIN. BILATERAL HIP PAIN. marta legs and feet neuropthy History of Any Multi-Drug Resistant Organisms: MRSA Date of last positivie culture/infection: 2008 MDRO Source:: HIPS Past Surgical History: Back Surgery, Bariatric Surgery, Joint Replacement, Orthopedic Surgery Additional Past Surgical History / Comment(s): GASTRIC SLEEVE JUNE 2013. CERVICAL SPINAL FUSION X3. BILATERAL KNEE SX. TOTAL BILATERAL HIP; REVISION LT HIP. LEFT SHOULDER SX. LEFT ACHILLES TENDON SX. RIGHT BIG TOE JOINT IMPLANT. EGD, COLONOSCOPY. LT THORACOTOMY, DECORTICATION LUNG 09/2017. Past Anesthesia/Blood Transfusion Reactions: No Reported Reaction Smoking Status: Former smoker - Past Family History Father Family Medical History: Cancer Additional Family Medical History / Comment(s): lung Mother Family Medical History: Coronary Artery Disease (CAD), Hypertension Medications and Allergies Home Medications Medication Instructions Recorded Confirmed Type Omeprazole [PriLOSEC] 40 mg PO DAILY 11/30/13 03/25/18 History Allopurinol [Zyloprim] 300 mg PO DAILY 06/04/16 03/25/18 History Cyclobenzaprine [Flexeril] 10 mg PO BID 06/04/16 03/25/18 History Escitalopram [Lexapro] 10 mg PO QAM 06/04/16 03/25/18 History Multivitamins, Thera [Multivitamin 1 tab PO DAILY 10/10/17 03/25/18 History (formulary)] Docusate [Colace] 100 mg PO DAILY PRN 03/25/18 03/25/18 History Ibuprofen 800 mg PO TID PRN 03/25/18 03/25/18 History Lacosamide [Vimpat] 50 mg PO BID 03/25/18 03/25/18 History Pregabalin [Lyrica] 300 mg PO BID 03/25/18 03/25/18 History Simvastatin [Zocor] 80 g PO HS 03/25/18 03/25/18 History Zolpidem Tartrate [Ambien] 10 mg PO HS 03/25/18 03/25/18 History oxyCODONE HCL/ACETAMINOPHEN 1 tab PO BID 03/25/18 03/25/18 History [Percocet 7.5-325 mg] Allergies Allergy/AdvReac Type Severity Reaction Status Date / Time No Known Allergies Allergy Verified 03/25/18 17:14
[~2018-03-30 06:58] MED LIST: LACTATED RINGERS 1,000 ML IV SCH
[2018-03-30 07:23] VITALS: TEMP 98.3
[2018-03-30] MEDS ORDERED: LACTATED RINGERS 1,000 ML IV ONE ×2 (07:26)
[2018-03-30 07:28] LABS: Glucose,Whole Blood 87 mg/dL (75-99)
[2018-03-30] MEDS ORDERED: PROPOFOL 10 MG/ML 20 ML VIAL IV ONE (07:40)
[2018-03-30] MEDS ORDERED: LIDOCAINE 1% INJ 10MG/ML (20 ML MDV) ONE (07:40)
--- NOTE | 2018-03-30 07:48 | P.PCN ---
Date of Procedure: 03/30/18 Description of Procedure: PREOPERATIVE DIAGNOSIS: Status post sleeve gastrectomy. Gastroesophageal reflux disease. Epigastric abdominal pain. POSTOPERATIVE DIAGNOSIS: Status post sleeve gastrectomy. Gastroesophageal reflux disease. Epigastric abdominal pain. Erosive esophagitis, chronic. Diaphragmatic hiatal hernia without obstruction. Chronic superficial gastritis. OPERATION: Esophagogastroduodenoscopy with cold forceps biopsies along the antrum. SURGEON: Alycia Dumont MD ANESTHESIA: MAC. INDICATIONS: The patient is a 52-year-old male who presents with a history of sleeve gastrectomy with abdominal pain. He is over 5 years out from his bariatric procedure. Benefits and risks of the procedure were described. Informed consent was obtained. DESCRIPTION: The patient was brought into the endoscopy suite and laid in the left lateral decubitus position. An Olympus gastroscope was passed along the posterior oropharynx down to the distal esophagus where the squamocolumnar junction was at 40 centimeters from the incisors remarkable for chronic erosive esophagitis, LA grade B without ulceration. The stomach was entered with moderate distortion of his sleeve including presence of intra-esophageal reflux and retained food. The sleeve reservoir was narrowed preventing view of the lower esophageal valve. Chronic gastritis albeit mild was found along the antrum with cold biopsies obtained. The first portion of the duodenum was examined and unremarkable. The stomach was desufflated. The patient tolerated the procedure well. FINDINGS: No acute ulceration found along the sleeve. Corkscrewing sleeve gastrectomy. Squamocolumnar junction at 40 cm from the incisors. Distorted and narrow gastric reservoir with prior history of sleeve gastrectomy Presence of hiatal hernia over 6 cm LA grade B erosive esophagitis. No active duodenitis. Chronic gastritis. RECOMMENDATIONS: Upper endoscopy as needed. May benefit from antireflux operation. Continue with current therapy. Plan - Discharge Summary New Discharge Prescriptions: No Action Omeprazole [PriLOSEC] 40 mg PO DAILY Escitalopram [Lexapro] 10 mg PO QAM Cyclobenzaprine [Flexeril] 10 mg PO BID Allopurinol [Zyloprim] 300 mg PO DAILY Multivitamins, Thera [Multivitamin (formulary)] 1 tab PO DAILY Zolpidem Tartrate [Ambien] 10 mg PO HS Pregabalin [Lyrica] 300 mg PO BID Docusate [Colace] 100 mg PO DAILY PRN PRN Reason: Constipation Ibuprofen 800 mg PO TID PRN PRN Reason: Pain Simvastatin [Zocor] 80 g PO HS Lacosamide [Vimpat] 50 mg PO BID oxyCODONE HCL/ACETAMINOPHEN [Percocet 7.5-325 mg] 1 tab PO BID Discharge Medication List Omeprazole [PriLOSEC] 40 mg PO DAILY 11/30/13 [History] Allopurinol [Zyloprim] 300 mg PO DAILY 06/04/16 [History] Cyclobenzaprine [Flexeril] 10 mg PO BID 06/04/16 [History] Escitalopram [Lexapro] 10 mg PO QAM 06/04/16 [History] Multivitamins, Thera [Multivitamin (formulary)] 1 tab PO DAILY 10/10/17 [History ] Docusate [Colace] 100 mg PO DAILY PRN 03/25/18 [History] Ibuprofen 800 mg PO TID PRN 03/25/18 [History] Lacosamide [Vimpat] 50 mg PO BID 03/25/18 [History] Pregabalin [Lyrica] 300 mg PO BID 03/25/18 [History] Simvastatin [Zocor] 80 g PO HS 03/25/18 [History] Zolpidem Tartrate [Ambien] 10 mg PO HS 03/25/18 [History] oxyCODONE HCL/ACETAMINOPHEN [Percocet 7.5-325 mg] 1 tab PO BID 03/25/18 [History ]
[2018-03-30 07:51] VITALS: RESP 16
[2018-03-30 08:06] VITALS: BP 124/79; PULSE 64
== END 2018-03-30 08:38 | disposition home or self-care (01) ==
LOC: ORWHC2ENDO 06:58
PROVIDERS: ATTEND Surgery Plastic and Reconstructive Surgery
DX: K22.10 Ulcer of esophagus without bleeding (principal); K29.50 Unspecified chronic gastritis without bleeding; K21.9 Gastro-esophageal reflux disease without esophagitis; K44.9 Diaphragmatic hernia without obstruction or gangrene; Z98.84 Bariatric surgery status; I10 Essential (primary) hypertension; E11.42 Type 2 diabetes mellitus with diabetic polyneuropathy; M19.90 Unspecified osteoarthritis, unspecified site; E66.01 Morbid (severe) obesity due to excess calories; Z68.32 Body mass index [BMI] 32.0-32.9, adult; G47.33 Obstructive sleep apnea (adult) (pediatric); R13.10 Dysphagia, unspecified; M10.9 Gout, unspecified; M54.5 Low back pain; M25.552 Pain in left hip; M25.551 Pain in right hip; Z79.891 Long term (current) use of opiate analgesic; Z79.899 Other long term (current) drug therapy
CPT/HCPCS: 88305; 43239; J2001; J2704

== ENCOUNTER → 2018-06-12 | Outpatient (CLI) | payer MEDICARE, OTHER ==
[2018-06-12 13:00] LABS: Anisocytosis Moderate; HCT 45.5 % (39.0-53.0); HGB 12.7 gm/dL (13.0-17.5); Hypochromasia Marked; MCH 23.3 pg (25.0-35.0); MCV 83.4 fL (80.0-100.0); Mean Platelet Volume 7.7; Microcytosis Slight; Platelet Count 228 k/uL (150-450); RBC 5.45 m/uL (4.30-5.90); RDW 20.9 % (11.5-15.5); WBC 6.9 k/uL (3.8-10.6)
== END | disposition home or self-care (01) ==
LOC: LABPAT 12:13
PROVIDERS: ATTEND Internal Medicine Interventional Cardiology
DX: Z01.812 Encounter for preprocedural laboratory examination (principal); I25.10 Atherosclerotic heart disease of native coronary artery without angina pectoris; I50.22 Chronic systolic (congestive) heart failure
CPT/HCPCS: 80051; 82565; 84520; 85027

== ENCOUNTER 2018-06-30 06:30 | Day surgery (SDC) | payer MEDICARE, OTHER ==
[2018-06-19 10:27] VITALS: BMI 34.7
[~2018-06-30 06:30] MED LIST changes: +ALPRAZolam 0.25 MG TAB PO PRN; +ALPRAZolam 0.5 MG TAB PO PRN; -LACTATED RINGERS 1,000 ML IV SCH; +NITROGLYCERIN SL TABS 0.4 MG TAB SUBLINGUAL PRN; +SODIUM CHLORIDE 0.9% 1,000 ML in EMPTY BAG 1 BAG IV ONE
[2018-06-30] MEDS ORDERED: ATORVASTATIN 80 MG TAB PO ONE (07:00)
[2018-06-30] MEDS ORDERED: ASPIRIN 325 MG TAB PO ONE (07:00)
[2018-06-30 07:21] VITALS: PULSE 80; RESP 20; TEMP 98.6
[2018-06-30] MEDS ORDERED: MIDAZOLAM 2 MG/2 ML VIAL IVP ONE (07:47)
[2018-06-30] MEDS ORDERED: LIDOCAINE 1% INJ 10MG/ML (20 ML MDV) SQ ONE (07:47)
[2018-06-30] MEDS ORDERED: fentaNYL (PF) 50 MCG/ML 2 ML AMP IVP ONE (07:47)
[2018-06-30] MEDS: VERAPAMIL SYRINGE (5 MG/10 ML) INTRAARTER ONE ×2 (07:49→08:05)
[2018-06-30] MEDS ORDERED: HEPARIN SODIUM 1,000 UN/ML (10ML VL) IV ONE (07:50)
[2018-06-30] MEDS ORDERED: IOPAMIDOL-370 125ML BTL INJ ONE (08:07)
[2018-06-30] MEDS ORDERED: RX INFO: IV CONTRAST WAS GIVEN 1 EACH MISC MISCELLANE PRN (08:10)
[2018-06-30] MEDS ORDERED: SODIUM CHLORIDE 0.9% 1,000 ML IV SCH (08:15)
--- NOTE | 2018-06-30 10:12 | LTR ---
June 30, 2018 Re: Kevin Familia Dear Dr. Ang: MrRoque Barbosa underwent today a heart catheterization and that revealed only mild nonobstructive coronary artery disease involving the mid LAD. Maximized medical treatment was recommended and no need for any coronary revascularization. I want to thank you for allowing me to participate in his care and please do not hesitate to call if you have any question or concern. Sincerely, MD GALINA Recio / JUDY: [id number] /
--- NOTE | 2018-06-30 10:29 | CC ---
CARDIAC CATHETERIZATION REPORT DATE OF SERVICE: 06/30/2018 PERFORMING PHYSICIAN: Jairon Sheffield MD, Special Distribution Clerk. PROCEDURE PERFORMED: 1. Selective right and left coronary angiogram. 2. Left heart catheterization. INDICATION: This is a very pleasant, 53-year-old gentleman with a past medical history significant for diabetes, hypertension, and dyslipidemia, who was diagnosed recently, who was sent for further cardiac evaluation before bariatric surgery. The patient does have significant family history of coronary artery disease. He underwent an echocardiogram which revealed an EF between 40%-45% and subsequently a stress test which revealed ischemia involving the lateral wall of the LV. Because of that, a heart catheterization was advised. APPROACH: Right radial artery. COMPLICATION: None. LEVEL OF SEDATION: Moderate with sedation length of 20 minutes. PROCEDURE DESCRIPTION: After obtaining an informed consent, the patient was brought to the cardiac laboratory coordinator. The right radial artery was cannulated using micropuncture technique, the micropuncture wire passed easily, then I placed a 6-Kinyarwanda sheath in the right radial artery. After that, I did selective right and left coronary angiogram using JR4 and JL3.5 catheters. Left heart catheterization was performed using the pigtail catheter. The procedure was completed without any complication. SELECTIVE CORONARY ANGIOGRAM: 1. The right coronary is a large caliber vessel. It is a dominant vessel. The RCA is angiographically normal. It bifurcates distally into PDA and PLV branches, both are angiographically normal. 2. The left main is angiographically normal, it bifurcates into left circumflex, ramus intermedius, and left anterior descending artery. 3. The left circumflex is a large caliber vessel. It is a nondominant vessel. It is angiographically normal. 4. The ramus intermedius has mild disease in its ostium, but otherwise angiographically normal. 5. The LAD, the proximal LAD appeared to be normal. The mid LAD by the bifurcation of the first and second diagonal branches appeared to have mild disease in the range of 20% to 30%. The LAD distally appeared to be angiographically normal. HEMODYNAMICS: The left ventricular end-diastolic pressure was 10 mmHg without significant gradient across the aortic valve. CONCLUSION: 1. Mild nonobstructive coronary artery disease involving the mid left anterior descending artery. 2. Normal left ventricular end-diastolic pressure. POSTPROCEDURE MANAGEMENT: 1. Maximize medical treatment for the cardiomyopathy. 2. High intensity statin. 3. Follow up with the patient. MMODL / IJN: [id number] /
[2018-06-30 13:48] VITALS: BP 129/75
== END 2018-06-30 13:30 | disposition home or self-care (01) ==
LOC: CATHCVL 06:30
PROVIDERS: ATTEND Internal Medicine Interventional Cardiology
DX: I25.10 Atherosclerotic heart disease of native coronary artery without angina pectoris (principal); I42.9 Cardiomyopathy, unspecified; Z82.49 Family history of ischemic heart disease and other diseases of the circulatory system; Z87.891 Personal history of nicotine dependence; Z79.899 Other long term (current) drug therapy
CPT/HCPCS: 93458; C1769 ×2; C1894; J2250; J2001; J3010; J1644; Q9967

== ENCOUNTER → 2018-07-14 | Outpatient (CLI) | payer MEDICARE, OTHER ==
[2018-07-14 15:08] LABS: Potassium 5.6 mmol/L (3.5-5.1)
[2018-07-14 15:38] LABS: Anisocytosis Slight; Basophils % (A) 0 %; Eosinophils # (A) 0.3 k/uL (0-0.7); Eosinophils % (A) 4 %; HCT 42.6 % (39.0-53.0); HGB 12.6 gm/dL (13.0-17.5); Hypochromasia Marked; Lymphocytes # (A) 2.1 k/uL (1.0-4.8); Lymphocytes % (A) 26 %; MCH 24.5 pg (25.0-35.0); MCHC 29.7 g/dL (31.0-37.0); MCV 82.5 fL (80.0-100.0); Mean Platelet Volume 7.9; Microcytosis Slight; Monocytes # (A) 0.4 k/uL (0-1.0); Monocytes % (A) 5 %; Neutrophils % (A) 62 %; Platelet Count 209 k/uL (150-450); RBC 5.16 m/uL (4.30-5.90); RDW 19.3 % (11.5-15.5)
== END | disposition home or self-care (01) ==
LOC: LABPAT 13:22
PROVIDERS: ATTEND Surgery Plastic and Reconstructive Surgery
DX: Z01.812 Encounter for preprocedural laboratory examination (principal)
CPT/HCPCS: 36415; 80051; 85025

== ENCOUNTER 2018-07-17 07:30 | Inpatient (IN) | payer MEDICARE, OTHER ==
[2018-07-14 08:30] VITALS: BMI 34.0
--- NOTE | 2018-07-17 06:28 | P.GSHP ---
History of Present Illness H&P Date: 07/17/18 CHIEF COMPLAINT: Paraesophageal hiatal hernia with gastroesophageal reflux disease. HISTORY OF PRESENT ILLNESS: The patient is a 53-year-old male who presents with paraesophageal hiatal hernia. He has completed an esophageal manometry including upper endoscopy workup. Now he presents for surgical intervention. PAST MEDICAL HISTORY: Please see list. PAST SURGICAL HISTORY: Please see list. MEDICATIONS: Please see list. ALLERGIES: Please see list. SOCIAL HISTORY: No illicit drug use FAMILY HISTORY: No reports of Crohn disease or ulcerative colitis. REVIEW OF ORGAN SYSTEMS: CONSTITUTIONAL: No reports of fevers or chills. GI: Denies any blood in stools or constipation. PHYSICAL EXAM: VITAL SIGNS: Stable GENERAL: Well-developed pleasant and in no acute distress. HEENT: No scleral icterus. Extraocular movements grossly intact. Moist buccal mucosa. NECK: Supple without lymphadenopathy. CHEST: Unlabored respirations. Equal bilateral excursions. CARDIOVASCULAR: Regular rate and rhythm. Distal 2+ pulses. ABDOMEN: Soft, nondistended. No peritoneal signs. MUSCULOSKELETAL: No clubbing, cyanosis, or edema. SKIN: Well-perfused. Good skin turgor. MANOMETRY: Shows no evidence of achalasia ASSESSMENT: 1. Diaphragmatic paraesophageal hiatal hernia with severe gastroesophageal reflux disease. 2. Ineffective esophageal dysmotility. 3. Morbid obesity 4. History of Bariatric surgery. 5. Dietary surveillance and counseling. PLAN: 1. Recommend proceeding with a robotic paraesophageal hiatal hernia with possible mesh. 2. Benefits and risks of surgical intervention was discussed including possibility of open technique. 3. Inpatient hospitalization recommended of 2 nights 4. DVT prophylaxis. 5. Antibiotic prophylaxis. Past Medical History Past Medical History: GERD/Reflux, Hypertension, Osteoarthritis (OA) Additional Past Medical History / Comment(s): HIATAL HERNIA. GOUT. CHRONIC LOWER BACK PAIN. CHRONIC BILATERAL HIP PAIN. LOWER BACK PAIN. BILATERAL HIP PAIN. marta legs and feet neuropthy History of Any Multi-Drug Resistant Organisms: None Reported Date of last positivie culture/infection: 2011 MDRO Source:: left hip Past Surgical History: Bariatric Surgery, Joint Replacement, Orthopedic Surgery Additional Past Surgical History / Comment(s): GASTRIC SLEEVE JUNE 2013. BILATERAL KNEE SX. BILATERAL HIP SX WITH NEED FOR METAL REPLACEMENTS. LEFT SHOULDER SX. LEFT ACHILES TENDON SX. RIGHT BIG TOE Past Anesthesia/Blood Transfusion Reactions: No Reported Reaction Past Psychological History: No Psychological Hx Reported Additional Past Alcohol Use History / Comment(s): started smoking > 20 approx 8 cig per day - Past Family History Father Family Medical History: Cancer Additional Family Medical History / Comment(s): lung Mother Family Medical History: Coronary Artery Disease (CAD), Hypertension Medications and Allergies Home Medications Medication Instructions Recorded Confirmed Type Omeprazole [PriLOSEC] 40 mg PO DAILY 11/30/13 07/14/18 History Allopurinol [Zyloprim] 300 mg PO DAILY 06/04/16 07/14/18 History Cyclobenzaprine [Flexeril] 10 mg PO BID 06/04/16 07/14/18 History Escitalopram [Lexapro] 10 mg PO QAM 06/04/16 07/14/18 History Ibuprofen 800 mg PO TID PRN 03/25/18 07/14/18 History Lacosamide [Vimpat] 50 mg PO BID 03/25/18 07/14/18 History Pregabalin [Lyrica] 300 mg PO BID 03/25/18 07/14/18 History Simvastatin [Zocor] 80 mg PO HS 03/25/18 07/14/18 History Zolpidem Tartrate [Ambien] 10 mg PO HS 03/25/18 07/14/18 History oxyCODONE HCL/ACETAMINOPHEN 1 tab PO BID 03/25/18 07/14/18 History [Percocet 7.5-325 mg] Ergocalciferol (Vitamin D2) 50,000 unit PO MO 06/19/18 07/14/18 History [Vitamin D2] Ranitidine HCl [Zantac] 150 mg PO HS 06/19/18 07/14/18 History Tamsulosin [Flomax] 0.4 mg PO DAILY 06/19/18 07/14/18 History Lisinopril [Zestril] 2.5 mg PO DAILY 07/14/18 07/14/18 History Allergies Allergy/AdvReac Type Severity Reaction Status Date / Time No Known Allergies Allergy Verified 07/14/18 08:14
[~2018-07-17 07:30] MED LIST changes: -ALPRAZolam 0.25 MG TAB PO PRN; -ALPRAZolam 0.5 MG TAB PO PRN; +CHLORHEXIDINE GLUCONATE 15 ML CUP MUCOUS MEM ONE; +DEXAMETHASONE SOD PHOSPHATE 10 MG/ML 1 ML VIAL IV ONE; +ENOXAPARIN 40 MG/0.4 ML SYRINGE SQ STA; +HYDROmorphone 0.5 MG/0.5 ML SYRINGE IVP PRN; +MIDAZOLAM 2 MG/2 ML VIAL IV PRN; -NITROGLYCERIN SL TABS 0.4 MG TAB SUBLINGUAL PRN; +ONDANSETRON 4 MG/2 ML VIAL IVP ONE; +PANTOPRAZOLE 40 MG/10 ML VIAL IV STA; +SCOPOLAMINE 1.5MG/72HR PATCH TRANSDERM ONE; -SODIUM CHLORIDE 0.9% 1,000 ML in EMPTY BAG 1 BAG IV ONE
[2018-07-17] MEDS: LACTATED RINGERS 1,000 ML IV SCH (10:10)
[2018-07-17] MEDS ORDERED: LIDOCAINE 1% 20 ML VIAL (10MG/ML) FOR IV START INTRADERMA ONE (10:10)
[2018-07-17 10:50] LABS: Anion Gap 5 mmol/L; Blood Urea Nitrogen 24 mg/dL (9-20); Calcium 9.3 mg/dL (8.4-10.2); Carbon Dioxide 35 mmol/L (22-30); Chloride 100 mmol/L (98-107); Glucose 86 mg/dL (74-99); Potassium 5.3 mmol/L (3.5-5.1); Sodium 140 mmol/L (137-145)
[2018-07-17] MEDS ORDERED: TAMSULOSIN 0.4 MG CAP.ER.24H PO STA (10:50)
[2018-07-17] MEDS ORDERED: MIDAZOLAM 2 MG/2 ML VIAL ONE (11:03)
[2018-07-17] MEDS ORDERED: HYDROmorphone (PF) 1 MG/ML ONE (11:03)
[2018-07-17] MEDS ORDERED: PHENYLEPHRINE-0.9% NACL SYG 1 MG/10 ML SYRINGE ONE (11:03)
[2018-07-17] MEDS ORDERED: fentaNYL (PF) 50 MCG/ML 2 ML AMP ONE (11:03)
[2018-07-17] MEDS ORDERED: PROPOFOL 10 MG/ML 20 ML VIAL IV ONE (11:03)
[2018-07-17] MEDS ORDERED: LIDOCAINE 1% INJ 10MG/ML (20 ML MDV) ONE (11:03)
[2018-07-17] MEDS ORDERED: ROCURONIUM BROMIDE 10 MG/ML 10 ML VIAL IV ONE (11:03)
[2018-07-17] MEDS ORDERED: NEOSTIGMINE 1 MG/ML 10 ML VIAL ONE (11:03)
[2018-07-17] MEDS ORDERED: GLYCOPYRROLATE 0.2 MG/ML 2 ML VIAL ONE (11:03)
[2018-07-17] MEDS ORDERED: BUPIVACAIN-EPI 0.25%-1:200,000 30 ML VIAL SQ ONE (11:34)
[2018-07-17] MEDS ORDERED: NALOXONE 0.4 MG/ML 1 ML VIAL IV PRN (15:28)
[2018-07-17] MEDS ORDERED: diphenhydrAMINE 50 MG/ML 1 ML VIAL IVP PRN (15:28)
--- NOTE | 2018-07-17 15:43 | P.OP ---
Date of Procedure: 07/17/18 Description of Procedure: Date of Procedure: 07/17/18 Postoperative Diagnosis: SURGEON: LULY JOHNSON MD PREOPERATIVE DIAGNOSES: 1. Gastroesophageal reflux disease. 2. Paraesophageal hiatal hernia, midline. 3. Dysphagia 4. Regurgitation 5. History of sleeve gastrectomy 6. Infective esophageal dysmotility 7. Hypertensive cardiomyopathy 8. Morbid obesity due to excess calories, BMI 34.1 9. Chronic pain syndrome 10. Obstructive uropathy secondary to prostatic hypertrophy 11. Depressive disorder 12. Gout 13. Hyperlipidemia 14. Chronic bilateral hip pain 15. Chronic lower back pain 16. Bilateral lower extremity neuropathy POSTOPERATIVE DIAGNOSES: 1. Gastroesophageal reflux disease. 2. Incarcerated midline paraesophageal hiatal hernia involving stomach without gangrene, 10 x 4 cm 3. Dysphagia 4. Regurgitation 5. History of sleeve gastrectomy 6. Infective esophageal dysmotility 7. Hypertensive cardiomyopathy 8. Morbid obesity due to excess calories, BMI 34.1 9. Chronic pain syndrome 10. Obstructive uropathy secondary to prostatic hypertrophy 11. Depressive disorder 12. Gout 13. Hyperlipidemia 14. Chronic bilateral hip pain 15. Chronic lower back pain 16. Bilateral lower extremity neuropathy 17. 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 Robotic-assisted da Jacquelin Xi laparoscopic lysis of adhesions over 1.5 hours 2. Robotic-assisted da Jacquelin Xi laparoscopic reduction and repair of incarcerated paraesophageal hiatal hernia, 4 x 10 cm with [place] Biopatch A 8 x 8 cm. 3. Robotic-assisted da Jacquelin Xi laparoscopic takedown of gastric gastric fistula 4. Intraoperative esophagogastroduodenoscopy COMPLICATIONS: None. Anesthesia: GETA, local Estimated Blood Loss (ml): 20 Pathology: none sent Condition: stable Disposition: floor Operative Findings: 1. Severely distorted sleeve gastrectomy with moderate torsion including angulation and abnormal contour 2. Moderate intraesophageal found prior to repair and suctioned during upper endoscopy 3. Incarceration of stomach 10 cm x 4 cm 4. Moderate intra-abdominal adhesions perigastric including omentum to abdominal wall requiring over 1.5 hours of extensive lysis of adhesions 5. Gastric gastric fistula from retained gastric cardia resected with robotic white staple load, 45 mm 6. Negative leak test intraoperative 7. Initial incarceration of stomach with hiatus at 50 cm from the incisors reduced to 45 cm 8. Moderate severe adhesions of the left upper quadrant also with extensive lysis of adhesions performed 9. Console time 125 minutes INDICATIONS: The patient is a 53-year-old male who presents with regurgitation , gastroesophageal reflux disease poorly controlled despite medications, and a symptomatic diaphragmatic hiatal hernia. Preoperative workup including upper endoscopy demonstrated a Hill grade 4 lower esophageal valve. He completed an esophageal manometry. Given the severity of symptoms, he had elected for surgical intervention. Benefits and risks including bleeding, infection, recurrence, dysphagia, injury to the lung, need for further surgery was described at length. Informed consent was obtained. DESCRIPTION: The patient was brought into the operating room and placed in supine position. Preoperatively he had received heparin subcutaneously for DVT prophylaxis. After general induction, the abdomen was prepped and draped in standard sterile fashion. The patient had previously voided prior to coming to the operating room. Ioban draping was placed along the abdomen. A timeout protocol was confirmed with the surgical team, for which the patient's name, procedure to be performed including DVT prophylaxis with bilateral SCDs, and preoperative antibiotics were also confirmed. A robotic da Jacquelin Xi system was prepped and primed. At 12 cm from the xiphoid to just below the umbilicus, proposed port sites were marked with indelible marker along the left axillary line, left mid-clavicular line with each ports were marked 10 cm from each other. A 5 mm 0 degrees laparoscopic trocar entry was performed along the left upper quadrant. The abdomen was insufflated to 15 mmHg pressure was tolerated well. Diagnostic laparoscopy demonstrated no injury to bowel, viscera, or mesentery. No injury had occurred to the small bowel or viscera. Moderate peritoneal adhesions of greater omentum to the left upper abdomen, mid abdomen including severe distortion of the sleeve gastrectomy was identified. Next, one 8 mm robotic port was placed along the right upper abdomen. An 8-mm port was were placed along the left lateral abdominal wall. The camera 8-mm port was maintained along the epigastrium via the hernia defect. Another 12 mm port was placed along the left upper abdominal wall after exchanging the 5 mm port. Please note that the ports were placed at least 20 cm away from the target anatomy. Care was taken to check that each robotic arm were safely away from collision with the bed or the patient. At the epigastrium, a medium sized Andrzej liver retractor was placed under direct visualization with the [employer] Sales Account Executive placed under the right shoulder of the patient. All robotic arms were used. The patient was repositioned in reverse Trendelenburg position at 18-degrees after lowering the bed. The robot was docked above the right side of the patient. Using a grasper for arm 3, a grasper for arm 1, including vessel sealer for arm 2, the robotic system was docked and primed as described. Instruments were interchanged by the miner assistant. I had sat at the console. Attention was brought to extensive lysis of adhesions where vessel sealer was used to address adhesions of the left upper quadrant and the epigastrium. The hiatus was obscured from severe adhesions. Additionally the sleeve was adhered to the hiatus. Extensive lysis of adhesions over 1.5 hrs was performed to free the sleeve from surrounding tissue. The sleeve had severe tensions. Intraoperative upper endoscopy was performed to identify the esophagus including the proximal portion of sleeve. A gastric gastric fistula was identified of the gastric cardia at the sleeve. The hiatus was confirmed at 50 cm. The squamocolumnar junction was confirmed at 40 cm. The gastrohepatic ligament was cleaved using a vessel sealer. Next, the phrenoesophageal ligament was mobilized and the distal esophagus was mobilized circumferentially. The left and right crura was identified. Circumferentially, the hernia sac was excised and brought into the peritoneal cavity. Moderate dissection into the mediastinum was performed to release the esophagus into the abdominal cavity. Care was taken to avoid any gastrotomy. A gastric fistula was confirmed at the cardia and resected with a 45-mm white robotic stapler. The measured defect was consistent with 10 cm axial length and 4 cm in width. After dissection, at least 5 cm of the stomach was reduced into the abdomen and confirmed with upper endoscopy. Once the hiatus and crura was dissected, 2-0 VLOC suture was placed to reapproximate the diaphragmatic hiatus posteriorly. To buttress the repair, a [place] Biopatch A was prepared along the back table and cut in half of a marcelino-hole fashion as to reinforce the repair as an underlay. The mesh was placed along the crural repair and tagged using horizontal mattress sutures using 2-0 VLOC. An Olympus gastroscope was passed through posterior oropharynx. The stomach had been desufflated. No evidence of leaks were found of the esophagus or stomach. The GI tract with desufflated This concluded the endoscopic portion of the case. The robot was undocked from the patient. I re-scrubbed into the case. All instruments and pneumoperitoneum were evacuated from the abdominal cavity. Incisions were reapproximated using 4-0 Monocryl in an interrupted subcuticular fashion. Liquid glue was applied to the skin. Local anesthetic was infiltrated in all wounds for postop analgesia. Multiple intra-abdominal films were obtained. At the end of the procedure, needle, sponge, and instrument count was verified correct by the surgical specialist. The patient had tolerated the procedure well and was taken to the postanesthesia unit in stable condition. Intraoperative films were reviewed with the patient's family who was pleased with the level of care.
[2018-07-17] MEDS ORDERED: ACETAMINOPHEN IV (For NPO) 1,000 MG in EMPTY BAG 1 BAG IVPB ONE (16:00)
[2018-07-17] MEDS: HYDROmorphone 2 MG/ML 1 ML SYRINGE IVP PRN (17:57)
[2018-07-17] MEDS: ONDANSETRON 4 MG/2 ML VIAL IVP SCH ×2 (17:57→23:48)
[2018-07-17] MEDS: METOCLOPRAMIDE 5 MG/ML 2 ML VIAL IVP SCH ×2 (17:57→23:49)
[2018-07-17] MEDS: SIMETHICONE 40 MG/0.6 ML DROPS 2,000 MG/30 ML BOTTLE PO SCH ×2 (17:57→23:48)
[2018-07-17] MEDS: 0.9% NACL WITH KCL 20 MEQ/L 1,000 ML IV SCH (17:58)
[2018-07-17] MEDS: ALBUTEROL NEBULIZED 2.5 MG/3 ML INHALATION SCH ×2 (20:41→20:42)
[2018-07-17] MEDS: ZOLPIDEM 10 MG TAB PO SCH (22:11)
[2018-07-17] MEDS: LACOSAMIDE 50 MG TABLET PO SCH (22:11)
[2018-07-17] MEDS: CYCLOBENZAPRINE 10 MG TAB PO SCH (22:11)
[2018-07-17] MEDS: PREGABALIN 100 MG CAP PO SCH (22:11)
[2018-07-18] MEDS: 0.9% NACL WITH KCL 20 MEQ/L 1,000 ML IV SCH ×2 (01:34→22:15)
[2018-07-18] MEDS: SIMETHICONE 40 MG/0.6 ML DROPS 2,000 MG/30 ML BOTTLE PO SCH (08:10)
[2018-07-18] MEDS: HYDROmorphone 2 MG/ML 1 ML SYRINGE IVP PRN ×2 (08:11→21:59)
[2018-07-18] MEDS: PREGABALIN 100 MG CAP PO SCH ×2 (08:13→21:58)
[2018-07-18] MEDS: LISINOPRIL 2.5 MG TAB PO SCH (08:13)
[2018-07-18] MEDS: PANTOPRAZOLE 40 MG/10 ML VIAL IV SCH (08:13)
[2018-07-18] MEDS: ENOXAPARIN 40 MG/0.4 ML SYRINGE SQ SCH (08:13)
[2018-07-18] MEDS: METOCLOPRAMIDE 5 MG/ML 2 ML VIAL IVP SCH (08:13)
[2018-07-18] MEDS: TAMSULOSIN 0.4 MG CAP.ER.24H PO SCH (08:14)
[2018-07-18] MEDS: CYCLOBENZAPRINE 10 MG TAB PO SCH ×2 (08:14→21:58)
[2018-07-18] MEDS: LACOSAMIDE 50 MG TABLET PO SCH ×2 (08:14→21:58)
[2018-07-18 09:17] LABS: Anion Gap 9 mmol/L; Blood Urea Nitrogen 20 mg/dL (9-20); Calcium 8.9 mg/dL (8.4-10.2); Carbon Dioxide 26 mmol/L (22-30); Chloride 108 mmol/L (98-107); Sodium 143 mmol/L (137-145)
[2018-07-18 09:20] LABS: Magnesium 2.1 mg/dL (1.6-2.3); Phosphorus 3.9 mg/dL (2.5-4.5)
[2018-07-18] MEDS: ALBUTEROL NEBULIZED 2.5 MG/3 ML INHALATION SCH ×3 (09:22→22:44)
[2018-07-18 09:26] LABS: Anisocytosis Slight; Basophils % (A) 0 %; Eosinophils # (A) 0.1 k/uL (0-0.7); Eosinophils % (A) 1 %; HCT 40.9 % (39.0-53.0); HGB 12.1 gm/dL (13.0-17.5); Hypochromasia Marked; Lymphocytes # (A) 1.5 k/uL (1.0-4.8); Lymphocytes % (A) 28 %; MCH 24.1 pg (25.0-35.0); MCHC 29.7 g/dL (31.0-37.0); MCV 81.4 fL (80.0-100.0); Mean Platelet Volume 10.5; Microcytosis Slight; Monocytes # (A) 0.5 k/uL (0-1.0); Monocytes % (A) 9 %; Neutrophils # (A) 3.2 k/uL (1.3-7.7); Neutrophils % (A) 59 %; Platelet Count 174 k/uL (150-450); RBC 5.03 m/uL (4.30-5.90); RDW 19.2 % (11.5-15.5); WBC 5.4 k/uL (3.8-10.6)
--- NOTE | 2018-07-18 11:53 | P.PN ---
Progress Note - Text Progress Note Date: 07/18/18 The patient's resting comfortably in his bed. He has some complaints of incisional pain. On exam his vital signs are stable. His evidence soft. Status post repair of hiatal hernia. Patient will start on clear liquid diet today.
[2018-07-18] MEDS: ZOLPIDEM 10 MG TAB PO SCH (21:58)
[2018-07-18] MEDS: LACTATED RINGERS 1,000 ML IV SCH (22:15)
[2018-07-19] MEDS: HYDROmorphone 2 MG/ML 1 ML SYRINGE IVP PRN ×5 (02:08→21:29)
[2018-07-19] MEDS: ALBUTEROL NEBULIZED 2.5 MG/3 ML INHALATION SCH ×4 (07:01→19:23)
[2018-07-19] MEDS ORDERED: BISACODYL 5 MG TABLET.DR PO PRN (08:00)
--- NOTE | 2018-07-19 08:07 | CONS ---
CONSULTATION DATE OF SERVICE: July 18, 2018. REASON FOR CONSULTATION: Medical management requested by Dr. Dumont. CONSULTATION: This is a pleasant 53-year-old patient who follows with Dr. Eric Ang. Chronic stable medical conditions include hypertension, osteoarthritis, hiatal hernia, gout, chronic bilateral hip pain, bilateral peripheral neuropathy. The patient did have a gastric sleeve in June 2013. The patient was being troubled by severe GERD symptoms, especially when lying down. The patient went on surgical intervention by Dr. Dumont yesterday. She did carry out lysis of adhesions, laparoscopic reduction, repair of incarcerated paraesophageal hiatal hernia with mesh and takedown of gastrogastric fistula. The patient has been tolerating his clear liquids. Some discomfort at the operative site. The patient has a baseline normally walks a little bit carefully because of peripheral neuropathy. Has been out of bed today. No nausea, vomiting. No fever. No chills. REVIEW OF SYSTEMS: CONSTITUTIONAL: HEENT: None. CARDIOVASCULAR: None. RESPIRATORY none. GASTROINTESTINAL as above. GENITOURINARY: None. MUSCULOSKELETAL: Some chronic joint pains. DERMATOLOGICAL, HEMATOLOGIC, LYMPHATICS: none. PSYCHIATRY none. NEUROLOGICAL: Numbness in the hands and feet. PAST MEDICAL HISTORY: GERD, hypertension, osteoarthritis, hiatal hernia, gout, chronic bilateral hip pain, chronic lower back pain, peripheral neuropathy. PAST SURGICAL HISTORY: Gastric sleeve in June 2013, bilateral knee surgery, bilateral hip surgery but need for metal replacement, left shoulder surgery, left Achilles tendon surgery, right big toe surgery. SOCIAL HISTORY: Patient did smoke in the past, stopped about a year ago, did approximately 8 cigarettes a day for more than 20 years. No alcohol. . The patient is on disability. FAMILY HISTORY: Lung cancer. HOME MEDICATIONS: 1. Percocet 7.5 one tab b.i.d. 2. Ambien 10 mg q.h.s. 3. Flomax 0.4 mg p.o. daily. 4. Zocor 80 mg q.h.s. 5. Zantac 150 mg at bedtime. 6. Lyrica 300 mg p.o. b.i.d. 7. Omeprazole 40 mg p.o. daily. 8. Zestril 2.5 mg p.o. daily. 9. Vimpat 50 mg b.i.d. 10.Ibuprofen 800 mg t.i.d. p.r.n. 11.Lexapro 10 mg p.o. daily. 12.Vitamin D2 77574 units p.o. on Friday. 13.Flexeril 10 mg b.i.d. 14.Allopurinol 300 mg p.o. daily. ALLERGIES: None. PHYSICAL EXAMINATION: VITAL SIGNS: Temperature 97.6, pulse 58, respiratory rate 16, blood pressure 147/78, pulse ox 96 percent on 2 L. GENERAL APPEARANCE: Well built, BMI 34.1. Lying in bed. Comfortable. EYES: Pupils equal. Conjunctivae normal. HEENT: External appearance of nose and ears normal. Oral cavity normal. NECK: JVD not raised. Mass not palpable. RESPIRATORY: Effort normal. LUNGS: Fair entry. CARDIOVASCULAR: First and second sounds no edema. ABDOMEN: Mild epigastric tenderness. No guarding or rigidity. Liver and spleen not palpable. LYMPHATICS: No lymph nodes palpable in the neck and axilla. PSYCHIATRY: Alert and oriented x3. Mood and affect normal. NEUROLOGICAL: Pupils equal. Cranial nerves grossly intact. Power and sensation. Decreased sensation distally. INVESTIGATIONS: White count 5.4, hemoglobin 12.1 potassium was hemolyzed this morning. Repeat potassium was requested. ASSESSMENT: 1. Status post abdominal surgery for incarcerated hernia involving the stomach without gangrene and a gastrogastric fistula in the superior pole of the stomach. 2. Gastroesophageal reflux disease. 3. Essential hypertension. 4. Primary osteoarthritis. 5. Idiopathic peripheral neuropathy. 6. Hyperkalemia of the blood repeat potassium was requested. 7. Obesity; BMI 34.1. PLAN: Home medications will be resumed. Repeat potassium was ordered. The patient is put on a clear liquid diet. Activity to be advanced as tolerated. Getting IV fluids and Lovenox for DVT prophylaxis. Care was discussed with the patient. Questions were answered. Thank you Dr. Dumont. Copy to Dr. Ang. MMMARIA DE JESUSL / CATN: [id number] /
[2018-07-19 08:16] LABS: Large Platelets Present; Poikilocytosis (M) Present; Target Cells Present
[2018-07-19] MEDS: ONDANSETRON 4 MG/2 ML VIAL IVP SCH ×8 (08:46→23:22)
[2018-07-19] MEDS: 1: MVI, ADULT NO.4 WITH VIT K 10 ML, THIAMINE 100 MG, FOLIC ACID 1 MG, POTASSIUM CHLORID IV SCH ×12 (08:47→22:21)
[2018-07-19] MEDS: SIMETHICONE 40 MG/0.6 ML DROPS 2,000 MG/30 ML BOTTLE PO SCH ×7 (08:47→23:21)
[2018-07-19] MEDS: METOCLOPRAMIDE 5 MG/ML 2 ML VIAL IVP SCH ×7 (08:47→23:22)
[2018-07-19] MEDS: ENOXAPARIN 40 MG/0.4 ML SYRINGE SQ SCH (08:51)
[2018-07-19] MEDS: TAMSULOSIN 0.4 MG CAP.ER.24H PO SCH (08:52)
[2018-07-19] MEDS: CYCLOBENZAPRINE 10 MG TAB PO SCH ×2 (08:52→20:32)
[2018-07-19] MEDS: LISINOPRIL 2.5 MG TAB PO SCH ×2 (08:52→09:06)
[2018-07-19] MEDS: LACOSAMIDE 50 MG TABLET PO SCH ×2 (08:52→20:32)
[2018-07-19] MEDS: SODIUM CHLORIDE 0.9% 1,000 ML IV SCH ×2 (08:53→23:25)
[2018-07-19 08:54] LABS: Anion Gap 8 mmol/L; Blood Urea Nitrogen 14 mg/dL (9-20); Calcium 8.6 mg/dL (8.4-10.2); Carbon Dioxide 22 mmol/L (22-30); Chloride 110 mmol/L (98-107); Glucose 70 mg/dL (74-99); Sodium 140 mmol/L (137-145)
[2018-07-19] MEDS: PREGABALIN 100 MG CAP PO SCH ×3 (08:56→22:22)
[2018-07-19] MEDS: PANTOPRAZOLE 40 MG/10 ML VIAL IV SCH (08:56)
--- NOTE | 2018-07-19 15:08 | P.PN ---
Progress Note - Text Progress Note Date: 07/19/18 The patient is resting comfortably his bed. He has minimal Maciej pain. On exam his vital signs are stable. His evidence soft. Status post repair of hiatal hernia. Patient is doing well. He'll be discharged home in the a.m.
[2018-07-19] MEDS: ZOLPIDEM 10 MG TAB PO SCH (20:31)
[2018-07-19] MEDS ORDERED: SODIUM POLYSTYRENE SULFONATE 15 GM/60 ML BOTTLE PO ONE (21:00)
--- NOTE | 2018-07-19 23:16 | PN ---
PROGRESS NOTE DATE OF SERVICE: July 19, 2018. PRESENTING COMPLAINT: Abdominal surgery. INTERVAL HISTORY: Patient is status post abdominal surgery on a clear liquid diet. Doing better. No chest pain, short of breath, some pain at the operative site. REVIEW OF SYSTEMS: Done for constitutional, cardiovascular, GI, pulmonary relevant findings as above. MEDICATIONS: Current medications reviewed. PHYSICAL EXAMINATION: VITAL SIGNS: Temperature 97.4, pulse 75, respiration 16, blood pressure 105/72, pulse ox noted. GENERAL APPEARANCE: Lying in bed, awake. EYES: Pupils are equal. Conjunctivae normal. NECK: JVD not raised. Mass not palpable. RESPIRATORY: Effort normal. LUNGS are clear. CARDIOVASCULAR: 1st and 2nd sounds normal. No edema. ABDOMEN: Some upper abdominal tenderness. No guarding or rigidity. Liver and spleen not palpable. Bowel sounds present. PSYCHIATRY: Alert and oriented x3. Mood and affect normal. INVESTIGATIONS: Potassium 6. BUN and creatinine is normal. ASSESSMENT: 1. Status post abdominal surgery for incarcerated hernia involving the stomach without gastrogastric fistula in superior pole of the stomach. 2. Gastroesophageal reflux disease. 3. Essential hypertension. 4. Primary osteoarthritis. 5. Idiopathic peripheral neuropathy. 6. Hyperkalemia. 7. Obesity; BMI 34.1. PLAN: We will stop the patient's VICKIE inhibitor. Give Kayexalate 30 g. Put the patient on a low potassium diet. Repeat a BMP in the morning. MMODL / IJN: [id number] /
[2018-07-20] MEDS: HYDROcodone/APAP 15 ML SOLUTION PO PRN (04:51)
[2018-07-20] MEDS: SIMETHICONE 40 MG/0.6 ML DROPS 2,000 MG/30 ML BOTTLE PO SCH ×3 (07:10→17:54)
[2018-07-20] MEDS: ONDANSETRON 4 MG/2 ML VIAL IVP SCH ×3 (07:10→17:56)
[2018-07-20] MEDS: METOCLOPRAMIDE 5 MG/ML 2 ML VIAL IVP SCH ×3 (07:11→17:54)
[2018-07-20 07:40] LABS: Anion Gap 4 mmol/L; Blood Urea Nitrogen 11 mg/dL (9-20); Calcium 8.5 mg/dL (8.4-10.2); Carbon Dioxide 32 mmol/L (22-30); Chloride 103 mmol/L (98-107); Glucose 77 mg/dL (74-99); Sodium 139 mmol/L (137-145)
--- NOTE | 2018-07-20 08:52 | P.PN ---
Subjective Progress Note Date: 07/20/18 CHIEF COMPLAINT: Incarcerated paraesophageal hiatal hernia HISTORY OF PRESENT ILLNESS: The patient is a 53-year-old gentleman status post robotic-assisted hiatal hernia repair. No reports of dysphagia. He's pending an esophagram including education by the bariatric dietitian for sleeve gastrectomy history. "I'm ready to go home." He's been tolerating liquids. PHYSICAL EXAM: VITAL SIGNS: Reviewed GENERAL: Well-developed in no acute distress. HEENT: No sclera icterus. Extraocular movements grossly intact. Moist buccal mucosa. Head is atraumatic, normocephalic. Hears conversational speech. No nasal drainage. NECK: Supple without lymphadenopathy. CHEST: Non-labored respirations and equal bilateral excursions. CARDIOVASCULAR: Palpable 2+ radial pulses. Regular rate and regular rhythm ABDOMEN: Soft, nondistended, nontender. MUSCULOSKELETAL: No clubbing, cyanosis or edema. NEUROLOGIC: No focal or lateralizing signs. Cranial nerves II through XII grossly intact. PSYCH: Appropriate affect. Alert and oriented to person, place and time. SKIN: Well perfused. Good skin turgor. LABS: Reviewed ASSESSMENT: 1. Incarcerated paraesophageal hiatal hernia with obstruction without gangrene 2. Complications from sleeve gastrectomy 3. Morbid obesity due to excess calories 4. History of obstructive uropathy pre-existing prior to surgery 5. Chronic pain syndrome PLAN: 1. Await esophagram prior to discharge 2. Postop diet including bariatric sleeve gastrectomy diet advised of stage 1/ stage II 3. Follow-up in the bariatric center as he has constipation so sleeve gastrectomy which will need revision to gastric bypass 4. For pain management, will continue home meds. Objective - Vital Signs Vital signs: Vital Signs Temp 97.5 F L 07/20/18 00:49 Pulse 88 07/20/18 00:49 Resp 16 07/20/18 00:49 BP 133/87 07/20/18 00:49 Pulse Ox 95 07/20/18 00:49 Intake & Output 07/19/18 07/20/18 07/20/18 18:59 06:59 18:59 Intake Total 350 35 Output Total 550 300 Balance -200 -265 Weight 127.006 kg Intake: Intake, IV Titration 350 35 Amount Sodium Chloride 0.9% 1, 350 35 000 ml @ 10 mls/hr IV . Q24H [facility] Rx#:[id number] Output: Urine 550 300 Other: Voiding Method Urinal - Labs CBC & Chem 7: 07/18/18 07:47 07/20/18 06:07 Labs: Abnormal Lab Results - Last 24 Hours (Table) 07/19/18 07/20/18 Range/Units 07:55 06:07 Potassium 6.0 H (3.5-5.1) mmol/L Chloride 110 H (98-107) mmol/L Carbon Dioxide 32 H (22-30) mmol/L Glucose 70 L (74-99) mg/dL Assessment and Plan (1) Incarcerated paraesophageal hernia Current Visit: Yes Status: Acute Code(s): K44.0 - DIAPHRAGMATIC HERNIA WITH OBSTRUCTION, WITHOUT GANGRENE SNOMED Code(s): 47227233 (2) History of sleeve gastrectomy Current Visit: Yes Status: Acute Code(s): Z90.3 - ACQUIRED ABSENCE OF STOMACH [PART OF] SNOMED Code(s): 851947572 (3) Morbid obesity due to excess calories Current Visit: Yes Status: Acute Code(s): E66.01 - MORBID (SEVERE) OBESITY DUE TO EXCESS CALORIES SNOMED Code(s): 141002521 (4) Regurgitant esophagitis Current Visit: Yes Status: Acute Code(s): K21.0 - GASTRO-ESOPHAGEAL REFLUX DISEASE WITH ESOPHAGITIS SNOMED Code(s): 43642351 (5) Acquired gastric fistula Current Visit: Yes Status: Acute Code(s): K31.6 - FISTULA OF STOMACH AND DUODENUM SNOMED Code(s): 526834384 (6) Peritoneal adhesions Current Visit: Yes Status: Acute Code(s): K66.0 - PERITONEAL ADHESIONS ( POSTPROCEDURAL) (POSTINFECTION) SNOMED Code(s): 41645639 (7) COPD (chronic obstructive pulmonary disease) Current Visit: No Status: Chronic Code(s): J44.9 - CHRONIC OBSTRUCTIVE PULMONARY DISEASE, UNSPECIFIED SNOMED Code(s): 30862970 (8) Peripheral neuropathy Current Visit: No Status: Chronic Code(s): G62.9 - POLYNEUROPATHY, UNSPECIFIED SNOMED Code(s): 093121158
[2018-07-20] MEDS: ALBUTEROL NEBULIZED 2.5 MG/3 ML INHALATION SCH ×4 (08:58→20:23)
--- NOTE | 2018-07-20 10:28 | FL ---
Single contrast esophagram EXAMINATION TYPE: FL esophagus cervic/pharynx DATE OF EXAM: 07/20/2018 10:16 AM COMPARISON: NONE CLINICAL HISTORY: Status post Storm fundoplication 3 days post op HH repair, 50ml isovue 370 used, 1min 12sec fl time The patient ingested contrast without difficulty. Noted are changes of Storm fundoplication. There is complete obstruction at the site of Storm fundoplication. No evidence for leak. IMPRESSION: Post-surgical change of Storm fundoplication complete obstruction noted.
[2018-07-20] MEDS: TAMSULOSIN 0.4 MG CAP.ER.24H PO SCH (11:20)
[2018-07-20] MEDS: PREGABALIN 100 MG CAP PO SCH ×2 (11:20→21:29)
[2018-07-20] MEDS: PANTOPRAZOLE 40 MG/10 ML VIAL IV SCH (11:20)
[2018-07-20] MEDS: LACOSAMIDE 50 MG TABLET PO SCH ×2 (11:20→21:29)
[2018-07-20] MEDS: CYCLOBENZAPRINE 10 MG TAB PO SCH ×2 (11:20→21:29)
[2018-07-20] MEDS: ENOXAPARIN 40 MG/0.4 ML SYRINGE SQ SCH (11:20)
[2018-07-20] MEDS: HYDROmorphone 2 MG/ML 1 ML SYRINGE IVP PRN ×2 (11:21→17:55)
[2018-07-20] MEDS ORDERED: DEXAMETHASONE SOD PHOSPHATE 10 MG/ML 1 ML VIAL IV STA (11:33)
[2018-07-20] MEDS ORDERED: DEXAMETHASONE SOD PHOSPHATE 4 MG/ML 1 ML VIAL IV PRN (11:33)
--- NOTE | 2018-07-20 11:37 | P.PN ---
Progress Note - Text Progress Note Date: 07/20/18 Patient initially reported able to swallow and improvement immediately in the evening following his surgery. He had no complaints over the weekend on a liquid diet. Esophogram this morning reports complete obstruction. Discharge on hold. Start decadron. May need upper endoscopy with dilation versus revision pending clinical response.
[2018-07-20] MEDS: ZOLPIDEM 10 MG TAB PO SCH (21:29)
[2018-07-21] MEDS: METOCLOPRAMIDE 5 MG/ML 2 ML VIAL IVP SCH ×4 (00:05→12:47)
[2018-07-21] MEDS: ONDANSETRON 4 MG/2 ML VIAL IVP SCH ×4 (00:05→17:36)
[2018-07-21] MEDS: SIMETHICONE 40 MG/0.6 ML DROPS 2,000 MG/30 ML BOTTLE PO SCH ×4 (00:05→17:36)
[2018-07-21] MEDS: HYDROmorphone 2 MG/ML 1 ML SYRINGE IVP PRN ×3 (00:05→17:34)
[2018-07-21] MEDS: SODIUM CHLORIDE 0.9% 1,000 ML IV SCH (00:10)
[2018-07-21] MEDS: HYDROcodone/APAP 15 ML SOLUTION PO PRN (02:02)
--- NOTE | 2018-07-21 02:56 | PN ---
PROGRESS NOTE DATE OF SERVICE: July 20, 2018. PRESENTING COMPLAINT: Liquid getting stuck. INTERVAL HISTORY: This patient is status post abdominal surgery. I saw the patient yesterday afternoon. The patient is noting that he will drink fluids and fluids getting stuck in the lower part of the chest. The patient did undergo fluoroscopy earlier today and he was found to have complete obstruction near the Kendell fundoplication. No nausea, no vomiting. REVIEW OF SYSTEMS: Done for constitutional, cardiovascular, GI, pulmonary; relevant findings as above. CURRENT MEDICATIONS: Reviewed. PHYSICAL EXAMINATION: VITAL SIGNS: Temperature 97.5, pulse 81, respiratory rate 16, blood pressure 129/85. GENERAL APPEARANCE: Propped up in bed, awake. EYES: Pupils equal. Conjunctivae normal. NECK: JVD not raised. Mass not palpable. RESPIRATORY: Effort normal. LUNGS: Sounds are clear. CARDIOVASCULAR: First and second sounds normal. No edema. ABDOMEN: Minimal upper abdomen tenderness. No guarding or rigidity. Bowel sounds are present. Liver and spleen not palpable. PSYCHIATRY: Alert and oriented x3. Mood and affect is normal. INVESTIGATIONS: Potassium 5, BUN 11, creatinine 0.89. ASSESSMENT: 1. Status post abdominal surgery for incarcerated hernia involving the stomach with correction of the gastrogastric fistula in the superior fold of the stomach. 2. Fluoroscopy, barium study showing obstruction at the Kendell fundoplication level. 3. Gastroesophageal reflux disease. 4. Essential hypertension. 5. Primary osteoarthritis. 6. Idiopathic peripheral neuropathy. 7. Hyperkalemia corrected. 8. Obesity; BMI 34.1. PLAN: Continue current medication and treatment plan. Await further input from Dr. Dumont. The patient does say that when he takes a burp, the liquid seems to pass through. MMODL / IJN: [id number] /
[2018-07-21] MEDS: ALBUTEROL NEBULIZED 2.5 MG/3 ML INHALATION SCH ×4 (07:13→21:00)
[2018-07-21 07:33] LABS: Anion Gap 6 mmol/L; Blood Urea Nitrogen 11 mg/dL (9-20); Calcium 8.9 mg/dL (8.4-10.2); Carbon Dioxide 33 mmol/L (22-30); Chloride 100 mmol/L (98-107); Glucose 127 mg/dL (74-99); Potassium 5.3 mmol/L (3.5-5.1); Sodium 139 mmol/L (137-145)
--- NOTE | 2018-07-21 08:32 | P.PN ---
Subjective Progress Note Date: 07/21/18 CHIEF COMPLAINT: Incarcerated paraesophageal hiatal hernia HISTORY OF PRESENT ILLNESS: The patient is a 53-year-old gentleman status post robotic-assisted hiatal hernia repair, POD 4. Yesterday, he had an esophogram showing complete obstruction. He then reports that after drinking liquids, the liquids would hold up into his chest. Separately, he has persistent hyperkalemia managed by medicine. No reports of nausea. He reports having similar problems with liquids when he had his sleeve gastrectomy over 4+ years ago. PHYSICAL EXAM: VITAL SIGNS: Reviewed GENERAL: Well-developed in no acute distress. HEENT: No sclera icterus. Extraocular movements grossly intact. Moist buccal mucosa. Head is atraumatic, normocephalic. Hears conversational speech. No nasal drainage. NECK: Supple without lymphadenopathy. CHEST: Non-labored respirations and equal bilateral excursions. CARDIOVASCULAR: Palpable 2+ radial pulses. Regular rate and regular rhythm ABDOMEN: Soft, nondistended, nontender. Incision clean dry and intact MUSCULOSKELETAL: No clubbing, cyanosis or edema. NEUROLOGIC: No focal or lateralizing signs. Cranial nerves II through XII grossly intact. PSYCH: Appropriate affect. Alert and oriented to person, place and time. SKIN: Well perfused. Good skin turgor. LABS: Reviewed ASSESSMENT: 1. Incarcerated paraesophageal hiatal hernia with obstruction without gangrene 2. Complications from sleeve gastrectomy 3. Morbid obesity due to excess calories 4. History of obstructive uropathy pre-existing prior to surgery 5. Chronic pain syndrome 6. Esophageal obstruction 7. Persistent hyperkalemia PLAN: 1. He has persistent symptoms of esophageal obstruction. Wi'll proceed with upper endoscopy with dilation followed 2. May need revision of hiatal hernia repair pending response to esophageal dilation Objective - Vital Signs Vital signs: Vital Signs Temp 98.2 F 07/21/18 02:05 Pulse 76 07/21/18 07:26 Resp 18 07/21/18 07:14 BP 114/73 07/21/18 02:05 Pulse Ox 97 07/21/18 07:14 Intake & Output 07/20/18 07/21/18 07/21/18 18:59 06:59 18:59 Intake Total 140 Balance 140 Weight 127.006 kg Intake: Intake, IV Titration 140 Amount Sodium Chloride 0.9% 1, 140 000 ml @ 10 mls/hr IV . Q24H [facility] Rx#:[id number] Other: # Voids 2 - Labs CBC & Chem 7: 07/18/18 07:47 07/21/18 06:21 Labs: Abnormal Lab Results - Last 24 Hours (Table) 07/21/18 Range/Units 06:21 Potassium 5.3 H (3.5-5.1) mmol/L Carbon Dioxide 33 H (22-30) mmol/L Glucose 127 H (74-99) mg/dL Assessment and Plan (1) Incarcerated paraesophageal hernia Current Visit: Yes Status: Acute Code(s): K44.0 - DIAPHRAGMATIC HERNIA WITH OBSTRUCTION, WITHOUT GANGRENE SNOMED Code(s): 41648717 (2) History of sleeve gastrectomy Current Visit: Yes Status: Acute Code(s): Z90.3 - ACQUIRED ABSENCE OF STOMACH [PART OF] SNOMED Code(s): 257638856 (3) Morbid obesity due to excess calories Current Visit: Yes Status: Acute Code(s): E66.01 - MORBID (SEVERE) OBESITY DUE TO EXCESS CALORIES SNOMED Code(s): 445523703 (4) Regurgitant esophagitis Current Visit: Yes Status: Acute Code(s): K21.0 - GASTRO-ESOPHAGEAL REFLUX DISEASE WITH ESOPHAGITIS SNOMED Code(s): 85227947 (5) Acquired gastric fistula Current Visit: Yes Status: Acute Code(s): K31.6 - FISTULA OF STOMACH AND DUODENUM SNOMED Code(s): 201445823 (6) Peritoneal adhesions Current Visit: Yes Status: Acute Code(s): K66.0 - PERITONEAL ADHESIONS ( POSTPROCEDURAL) (POSTINFECTION) SNOMED Code(s): 30638272 (7) COPD (chronic obstructive pulmonary disease) Current Visit: No Status: Chronic Code(s): J44.9 - CHRONIC OBSTRUCTIVE PULMONARY DISEASE, UNSPECIFIED SNOMED Code(s): 26956228 (8) Peripheral neuropathy Current Visit: No Status: Chronic Code(s): G62.9 - POLYNEUROPATHY, UNSPECIFIED SNOMED Code(s): 976379094 (9) Esophageal obstruction Current Visit: Yes Status: Acute Code(s): K22.2 - ESOPHAGEAL OBSTRUCTION SNOMED Code(s): 218164999 (10) Hyperkalemia Current Visit: Yes Status: Acute Code(s): E87.5 - HYPERKALEMIA SNOMED Code (s): 89771514
[2018-07-21] MEDS: CYCLOBENZAPRINE 10 MG TAB PO SCH ×2 (08:35→20:15)
[2018-07-21] MEDS: PREGABALIN 100 MG CAP PO SCH ×2 (08:35→20:19)
[2018-07-21] MEDS: PANTOPRAZOLE 40 MG/10 ML VIAL IV SCH (08:35)
[2018-07-21] MEDS: LACOSAMIDE 50 MG TABLET PO SCH ×2 (08:35→20:15)
[2018-07-21] MEDS: ENOXAPARIN 40 MG/0.4 ML SYRINGE SQ SCH (08:35)
[2018-07-21] MEDS: TAMSULOSIN 0.4 MG CAP.ER.24H PO SCH (08:36)
[2018-07-21] MEDS ORDERED: LIDOCAINE 1% INJ 10MG/ML (20 ML MDV) ONE (14:53)
[2018-07-21] MEDS ORDERED: PROPOFOL 10 MG/ML 20 ML VIAL IV ONE (14:53)
[2018-07-21] MEDS ORDERED: GLYCOPYRROLATE 0.2 MG/ML 2 ML VIAL ONE (14:53)
[2018-07-21] MEDS ORDERED: MIDAZOLAM 2 MG/2 ML VIAL ONE (14:53)
[2018-07-21] MEDS ORDERED: IV FLUID CONTINUATION 1,000 ML IV ONE (14:54)
--- NOTE | 2018-07-21 15:29 | P.PCN ---
Date of Procedure: 07/21/18 Description of Procedure: PREOPERATIVE DIAGNOSIS: Dysphagia. Gastroesophageal reflux disease History of hiatal hernia Ineffective esophageal dysmotility Esophageal obstruction POSTOPERATIVE DIAGNOSIS: Dysphagia. Gastroesophageal reflux disease History of hiatal hernia Ineffective esophageal dysmotility Esophageal obstruction OPERATION: Esophagogastroduodenoscopy with rigid dilator over the guidewire, 60 Fr. SURGEON: Alycia Dumont MD ANESTHESIA: MAC. INDICATIONS: The patient is a 53-year-old male who presents with a history of dysphagia following hiatal hernia repair. Despite conservative measures including Decadron, he persisted to have symptoms. Upper endoscopy balloon dilation was described. Separately, he has baseline history of esophageal dysmotility. Benefits and risks of the procedure were described. Informed consent was obtained. DESCRIPTION: The patient was brought into the endoscopy suite and laid in the left lateral decubitus position. After a timeout was confirmed, the procedure was initiated. the upper esophageal sphincter was hypertensive. An Olympus gastroscope was passed along the esophagus where retained fluid was suctioned for intraesophageal reflux. His previous sleeve gastrectomy had pre-existing distortion and the scope wascarefully navigated to the second portion of the duodenum. Next using an Finnish rigid dilator, a guidewire was placed through the pediatric gastroscope. Next the scope was withdrawn. A 60-Korean rigid Finnish dilator was passed carefully along the posterior oropharynx to 50 cm and left in place for 1 minute stretch. The dilator was withdrawn including the guidewire. The scope was reentered along the posterior oropharynx with no findings of full-thickness tear of the upper esophageal sphincter or stomach. No full-thickness injury was encountered. The GI tract was desufflated. The patient tolerated the procedure well. FINDINGS: Hypertensive upper esophageal sphincter Moderate intraesophageal reflux Severely distorted sleeve gastrectomy with a normal contour and stricture at angularis incisura, pre-existing Stricture of 48 Fr of the upper esophagus, consistent with hypertensive upper esophageal sphincter. Finnish rigid dilator 60-Korean completed. Minimal gastritis. RECOMMENDATIONS: Upper endoscopy as needed Recommend revision to gastric bypass for severe distortion and contour anomaly of sleeve gastrectomy causing functional obstruction
--- NOTE | 2018-07-21 15:36 | P.PN ---
Progress Note - Text Progress Note Date: 07/21/18 Patient's family notified of goals of care. Upper endoscopy performed. Will repeat esophagram. If persistent obstruction, then will need surgical revision of hiatal hernia. Patient's satisfied with goals of care.
--- NOTE | 2018-07-21 18:08 | P.PN ---
Subjective Progress Note Date: 07/21/18 Interval history: This a 53-year-old gentleman status post hiatal hernia repair in a patient with history of gastric sleeve. Underwent esophagram yesterday reporting obstruction. Patient reports that his oral intake becomes stuck - midsternal. Scheduled for EGD today with dilation. Positive burping, no bowel movement. Potassium 5.3. Review of systems: CONSTITUTIONAL: No fever, no malaise, no fatigue. HEENT: No recent visual problems or hearing problems. Denied any sore throat. CARDIOVASCULAR: No chest pain, orthopnea, PND, no palpitations, no syncope. PULMONARY: No shortness of breath, no cough, no hemoptysis. GASTROINTESTINAL: No diarrhea, no nausea, no vomiting, status post surgery , Normoactive bowel sounds. NEUROLOGICAL: No headaches, no weakness, no numbness. Denies lightheadedness dizziness or focal deficits. HEMATOLOGICAL: Denies any bleeding or petechiae. GENITOURINARY: Denies any burning micturition, frequency, or urgency. MUSCULOSKELETAL/RHEUMATOLOGICAL: No clubbing, cyanosis or edema ENDOCRINE: Denies any polyuria or polydipsia. PSYCHIATRIC: No anxiety, no depression Active Medications Hydrocodone Bitart/Acetaminophen ([place] Elixir 7.5-325mg/15ml) 30 ml PO Q6HR PRN PRN Reason: Severe Pain Last Admin: 07/21/18 02:02 Dose: 30 ml Albuterol Sulfate (Ventolin Nebulized) 2.5 mg INHALATION RT-QID [facility] Last Admin: 07/21/18 17:14 Dose: 2.5 mg Bisacodyl (Dulcolax) 15 mg PO ONCE PRN PRN Reason: Constipation Cyclobenzaprine HCl (Flexeril) 10 mg PO BID [facility] Last Admin: 07/21/18 08:35 Dose: 10 mg Dexamethasone Sodium Phosphate (Decadron) 4 mg IV Q4HR PRN PRN Reason: Nausea And Vomiting Diphenhydramine HCl (Benadryl) 25 mg IVP Q6HR PRN PRN Reason: Itching Enoxaparin Sodium (Lovenox) 40 mg SQ DAILY [facility] Last Admin: 07/21/18 08:35 Dose: 40 mg Hydromorphone HCl (Dilaudid) 2 mg IVP Q4HR PRN PRN Reason: Severe Pain Last Admin: 07/21/18 17:34 Dose: 2 mg Sodium Chloride (Saline 0.9%) 1,000 mls @ 10 mls/hr IV .Q24H [facility] Last Admin: 07/21/18 00:10 Dose: 10 mls/hr Lacosamide (Vimpat) 50 mg PO BID [facility] Last Admin: 07/21/18 08:35 Dose: 50 mg Metoclopramide HCl (Reglan) 10 mg IVP Q6HR [facility] Last Admin: 07/21/18 12:47 Dose: 10 mg Naloxone HCl (Narcan) 0.2 mg IV Q2M PRN PRN Reason: Opioid Reversal Ondansetron HCl (Zofran) 4 mg IVP Q6HR [facility] Last Admin: 07/21/18 17:36 Dose: 4 mg Pantoprazole Sodium (Protonix) 40 mg IV DAILY [facility] Last Admin: 07/21/18 08:35 Dose: 40 mg Pregabalin (Lyrica) 300 mg PO BID [facility] Last Admin: 07/21/18 08:35 Dose: 300 mg Simethicone (Mylicon Drops) 40 mg PO Q6HR [facility] Last Admin: 07/21/18 17:36 Dose: 40 mg Tamsulosin HCl (Flomax) 0.4 mg PO DAILY [facility] Last Admin: 07/21/18 08:36 Dose: 0.4 mg Zolpidem Tartrate (Ambien) 10 mg PO HS [facility] Last Admin: 07/20/18 21:29 Dose: 10 mg The rest of the 14 point review of systems is negative Objective - Vital Signs Vital signs: Vital Signs Temp 98.7 F 07/21/18 08:35 Pulse 74 07/21/18 10:57 Resp 16 07/21/18 10:57 BP 114/74 07/21/18 08:35 Pulse Ox 98 07/21/18 08:35 Intake & Output 07/20/18 07/21/18 07/21/18 18:59 06:59 18:59 Intake Total 140 370 Balance 140 370 Weight 127.006 kg Intake: IV 300 Intake, IV Titration 140 70 Amount Sodium Chloride 0.9% 1, 140 70 000 ml @ 10 mls/hr IV . Q24H [facility] Rx#:[id number] Other: Voiding Method Urinal # Voids 2 - Exam PHYSICAL EXAM: VITAL SIGNS: As above GENERAL: Sitting up in bed, no acute distress HEENT: Conjunctivae normal. eyes normal. Oral mucosa dry. NECK: No JVD. No thyroid enlargement. No LNs CARDIOVASCULAR: S1, S2 muffled. No murmur RESPIRATION: Nonlabored, Breath sounds diminished in the bases. No rhonchi or crackles. No bronchial breathing. ABDOMEN: Soft, nontender . Nondistended , status post surgery.positive Bowel sounds. LEGS: No edema. no swelling PSYCHIATRY: Alert and oriented -3, mood and affect normal. NERVOUS SYSTEM: Cranial N 2-12 grossly normal. Moves all 4 limbs. Diffuse weakness No focal deficits. Skin: no rash - Labs CBC & Chem 7: 07/18/18 07:47 07/21/18 06:21 Labs: Abnormal Lab Results - Last 24 Hours (Table) 07/21/18 Range/Units 06:21 Potassium 5.3 H (3.5-5.1) mmol/L Carbon Dioxide 33 H (22-30) mmol/L Glucose 127 H (74-99) mg/dL Assessment and Plan Assessment: -Incarcerated paraesophageal hiatal hernia with obstruction without gangrene -Complications from sleeve gastrectomy -Morbid obesity, BMI 34.1 -Obstructive uropathy pre-existing prior to surgery -Hyperkalemia -Esophageal obstruction Plan: Continue on current medication regime ,monitoring and symptomatic treatment. NPO, EGD with dilation pending; potential revision of hiatal hernia pending response to EGD/dilation .Currently on low potassium diet.Close monitoring of electrolytes, renal function with labs ordered for a.m. The impression and plan of care has been dictated as directed. : I performed a history and examination of this patient, discussed the same with the dictator. I agree with the dictator's note ,documented as a scribe. Any additional findings or plans will be noted.
[2018-07-21] MEDS: ZOLPIDEM 10 MG TAB PO SCH (20:15)
[2018-07-22] MEDS: ONDANSETRON 4 MG/2 ML VIAL IVP SCH ×4 (00:18→18:01)
[2018-07-22] MEDS: METOCLOPRAMIDE 5 MG/ML 2 ML VIAL IVP SCH ×4 (00:19→18:01)
[2018-07-22] MEDS: SIMETHICONE 40 MG/0.6 ML DROPS 2,000 MG/30 ML BOTTLE PO SCH ×4 (00:19→18:00)
[2018-07-22] MEDS: SODIUM CHLORIDE 0.9% 1,000 ML IV SCH ×2 (00:20→23:58)
[2018-07-22] MEDS: HYDROmorphone 2 MG/ML 1 ML SYRINGE IVP PRN (05:16)
[2018-07-22 06:58] LABS: Anion Gap 5 mmol/L; Blood Urea Nitrogen 10 mg/dL (9-20); Calcium 9.2 mg/dL (8.4-10.2); Carbon Dioxide 34 mmol/L (22-30); Chloride 103 mmol/L (98-107); Glucose 106 mg/dL (74-99); Potassium 4.5 mmol/L (3.5-5.1); Sodium 142 mmol/L (137-145)
[2018-07-22] MEDS: ALBUTEROL NEBULIZED 2.5 MG/3 ML INHALATION SCH ×4 (07:35→20:23)
--- NOTE | 2018-07-22 10:03 | FL ---
EXAMINATION TYPE: FL esophagus cervic/pharynx DATE OF EXAM: 07/22/2018 HISTORY: 53 year-old male history sleeve gastrectomy 3 years ago and Kendell fundoplication performed 5 days ago. Exam 2 days ago showed obstruction at the GE junction level. Follow-up after endoscopy. Total images: 39. Total fluoroscopy time: 3.09 minutes COMPARISON: 07/20/2018 TECHNIQUE: A single contrast esophagram is performed with thin barium as instructed by the clinician . FINDINGS: The patient swallowed oral contrast without difficulty or delay. However, there is relatively severe obstruction noted at the GE junction. The initial swallows total of 1 ounce of thin barium. After selvin ting a couple minutes, trace trickle flow is noted extending into the stomach. Slight progression of contrast into the first portion of the duodenum is noted. Fluoroscopy is continued after 15 minutes and there is further contrast opacification of the narrowed stomach compatible with sleeve gastrectomy. More contrast has progressed and now reaches the third p ortion of the duodenum. However, more than half of the oral contrast remains in the lower esophagus. Radiograph was obtained after total 35 minutes and the patient has ingested a total of 2 ounces of or al contrast at this point. More than half the contrast remains in the lower esophagus. Additional con trast outlines the sleeve gastrectomy and extends to the proximal most jejunum. There is no evidence for leak. IMPRESSION: 1. A total of 2 ounces of thin barium was ingested. 2. Imaging was performed over the course of 35 minutes. At the end of the study, more than half of th e contrast remains in the distal esophagus. The remaining contrast has progressed to the proximal mos t jejunum. Given the timeframe of the study and overall volume of contrast ingested, a partial signif icant obstruction is suggested though improved from 07/20/2018. Clinically correlate. 3. Status post Kendell fundoplication without evidence for leak. Patient with history of prior sleeve gastrectomy
[2018-07-22] MEDS: PANTOPRAZOLE 40 MG/10 ML VIAL IV SCH (10:18)
[2018-07-22] MEDS: PREGABALIN 100 MG CAP PO SCH ×2 (10:18→20:02)
[2018-07-22] MEDS: TAMSULOSIN 0.4 MG CAP.ER.24H PO SCH (10:18)
[2018-07-22] MEDS: LACOSAMIDE 50 MG TABLET PO SCH ×2 (10:18→20:02)
[2018-07-22] MEDS: ENOXAPARIN 40 MG/0.4 ML SYRINGE SQ SCH (10:18)
[2018-07-22] MEDS: CYCLOBENZAPRINE 10 MG TAB PO SCH ×2 (10:18→20:02)
[2018-07-22] MEDS: HYDROcodone/APAP 15 ML SOLUTION PO PRN ×2 (10:19→18:05)
--- NOTE | 2018-07-22 15:35 | P.PN ---
<Virgie Iverson Sonny - Last Filed: 07/22/18 15:28> Subjective Progress Note Date: 07/22/18 CHIEF COMPLAINT: Incarcerated paraesophageal hiatal hernia HISTORY OF PRESENT ILLNESS: The patient is a 53-year-old gentleman status post robotic-assisted hiatal hernia repair. Patient underwent EGD with dilation yesterday. Patient examined this morning at the bedside who states he has had improvement in swallowing liquids and feels much better. Patient was scheduled to be discharged home today. He underwent esophagram today which revealed partial significant obstruction per radiologist's dictation. Patient was reevaluated at the bedside this afternoon and states he now feels that he is having difficulty with liquids and feels that liquids are not going down as easy. PHYSICAL EXAM: VITAL SIGNS: Reviewed GENERAL: Well-developed in no acute distress. HEENT: No sclera icterus. Extraocular movements grossly intact. Moist buccal mucosa. Head is atraumatic, normocephalic. Hears conversational speech. No nasal drainage. NECK: Supple without lymphadenopathy. CHEST: Non-labored respirations and equal bilateral excursions. CARDIOVASCULAR: Palpable 2+ radial pulses. Regular rate and regular rhythm ABDOMEN: Soft, nondistended, nontender. Incision clean dry and intact MUSCULOSKELETAL: No clubbing, cyanosis or edema. NEUROLOGIC: No focal or lateralizing signs. Cranial nerves II through XII grossly intact. PSYCH: Appropriate affect. Alert and oriented to person, place and time. SKIN: Well perfused. Good skin turgor. LABS: Reviewed ASSESSMENT: 1. Incarcerated paraesophageal hiatal hernia with obstruction without gangrene 2. Complications from sleeve gastrectomy 3. Morbid obesity due to excess calories 4. History of obstructive uropathy pre-existing prior to surgery 5. Chronic pain syndrome 6. Esophageal obstruction 7. Persistent hyperkalemia, improved PLAN: Patient was reevaluated this afternoon by Dr. Zarate who would like discharge held at this time. Discussed with Dr. Dumont, who will see patient this afternoon and will make decision regarding discharge home today or not. Patient updated on plan of care and all questions answered. Nurse practitioner note has been reviewed by physician. Signing provider agrees with the documented findings, assessment, and plan of care. Objective - Vital Signs Vital signs: Vital Signs Temp 97.6 F 07/22/18 08:11 Pulse 68 07/22/18 08:11 Resp 16 01/30/19 08:11 BP 124/76 07/22/18 08:11 Pulse Ox 100 07/22/18 08:11 Intake & Output 07/21/18 07/22/18 07/22/18 18:59 06:59 18:59 Intake Total 440 110 70 Balance 440 110 70 Intake: IV 300 Intake, IV Titration 140 110 70 Amount Sodium Chloride 0.9% 1, 140 110 70 000 ml @ 10 mls/hr IV . Q24H [facility] Rx#:[id number] Other: Voiding Method Urinal Urinal - Labs CBC & Chem 7: 07/18/18 07:47 07/22/18 05:58 Labs: Abnormal Lab Results - Last 24 Hours (Table) 07/22/18 Range/Units 05:58 Carbon Dioxide 34 H (22-30) mmol/L Glucose 106 H (74-99) mg/dL Assessment and Plan (1) Acquired gastric fistula Current Visit: Yes Status: Acute Code(s): K31.6 - FISTULA OF STOMACH AND DUODENUM SNOMED Code(s): 114551940 (2) Esophageal obstruction Current Visit: Yes Status: Acute Code(s): K22.2 - ESOPHAGEAL OBSTRUCTION SNOMED Code(s): 963732032 (3) Hiatal hernia Current Visit: Yes Status: Acute Code(s): K44.9 - DIAPHRAGMATIC HERNIA WITHOUT OBSTRUCTION OR GANGRENE SNOMED Code(s): 70648565 (4) History of sleeve gastrectomy Current Visit: Yes Status: Acute Code(s): Z90.3 - ACQUIRED ABSENCE OF STOMACH [PART OF] SNOMED Code(s): 494109543 (5) Hyperkalemia Current Visit: Yes Status: Acute Code(s): E87.5 - HYPERKALEMIA SNOMED Code (s): 10645548 (6) Incarcerated paraesophageal hernia Current Visit: Yes Status: Acute Code(s): K44.0 - DIAPHRAGMATIC HERNIA WITH OBSTRUCTION, WITHOUT GANGRENE SNOMED Code(s): 49716651 (7) Morbid obesity due to excess calories Current Visit: Yes Status: Acute Code(s): E66.01 - MORBID (SEVERE) OBESITY DUE TO EXCESS CALORIES SNOMED Code(s): 349564436 (8) Peritoneal adhesions Current Visit: Yes Status: Acute Code(s): K66.0 - PERITONEAL ADHESIONS ( POSTPROCEDURAL) (POSTINFECTION) SNOMED Code(s): 70713419 <Tim,Karen N - Last Filed: 07/22/18 20:34> Subjective Patient seen and evaluated. He reports initially feeling well and then by this morning/afternoon reports liquids hung up in his chest. Patient reports that Dr. Zarate came into his room, held his discharge after having long discussion with Dr. Zarate his index bariatric surgeon regarding his initial bariatric procedure and current status of his sleeve. I personally reviewed his intraoperative films including esophagrams in detail. Risk of re-operation was described yesterday pending clinical course from dilation. As he is symptomatic, will proceed with revision of hiatal hernia. He is aware that recurrent reflux may occur. Patient offered second opinion prior to proceeding and patient declined. All benefits and risks reviewed. Objective - Vital Signs Vital signs: Vital Signs Temp 98.0 F 07/22/18 19:18 Pulse 112 H 07/22/18 20:23 Resp 16 07/22/18 19:18 BP 134/89 07/22/18 19:18 Pulse Ox 93 L 07/22/18 19:18 Intake & Output 07/22/18 07/22/18 07/23/18 06:59 18:59 06:59 Intake Total 110 70 Balance 110 70 Intake: Intake, IV Titration 110 70 Amount Sodium Chloride 0.9% 1, 110 70 000 ml @ 10 mls/hr IV . Q24H [facility] Rx#:[id number] Other: Voiding Method Urinal - Labs CBC & Chem 7: 07/18/18 07:47 07/22/18 05:58 Labs: Abnormal Lab Results - Last 24 Hours (Table) 07/22/18 Range/Units 05:58 Carbon Dioxide 34 H (22-30) mmol/L Glucose 106 H (74-99) mg/dL Assessment and Plan (1) Incarcerated paraesophageal hernia Current Visit: Yes Status: Acute Code(s): K44.0 - DIAPHRAGMATIC HERNIA WITH OBSTRUCTION, WITHOUT GANGRENE SNOMED Code(s): 90787713 (2) History of sleeve gastrectomy Current Visit: Yes Status: Acute Code(s): Z90.3 - ACQUIRED ABSENCE OF STOMACH [PART OF] SNOMED Code(s): 023597988 (3) Morbid obesity due to excess calories Current Visit: Yes Status: Acute Code(s): E66.01 - MORBID (SEVERE) OBESITY DUE TO EXCESS CALORIES SNOMED Code(s): 243084766 (4) Regurgitant esophagitis Current Visit: Yes Status: Acute Code(s): K21.0 - GASTRO-ESOPHAGEAL REFLUX DISEASE WITH ESOPHAGITIS SNOMED Code(s): 25432113 (5) Acquired gastric fistula Current Visit: Yes Status: Acute Code(s): K31.6 - FISTULA OF STOMACH AND DUODENUM SNOMED Code(s): 243834706 (6) Peritoneal adhesions Current Visit: Yes Status: Acute Code(s): K66.0 - PERITONEAL ADHESIONS ( POSTPROCEDURAL) (POSTINFECTION) SNOMED Code(s): 90324323 (7) COPD (chronic obstructive pulmonary disease) Current Visit: No Status: Chronic Code(s): J44.9 - CHRONIC OBSTRUCTIVE PULMONARY DISEASE, UNSPECIFIED SNOMED Code(s): 22017630 (8) Peripheral neuropathy Current Visit: No Status: Chronic Code(s): G62.9 - POLYNEUROPATHY, UNSPECIFIED SNOMED Code(s): 754003209 (9) Esophageal obstruction Current Visit: Yes Status: Acute Code(s): K22.2 - ESOPHAGEAL OBSTRUCTION SNOMED Code(s): 897747278 (10) Hyperkalemia Current Visit: Yes Status: Acute Code(s): E87.5 - HYPERKALEMIA SNOMED Code (s): 61924995
--- NOTE | 2018-07-22 16:45 | P.PN ---
Subjective Progress Note Date: 07/22/18 Interval history: This a 53-year-old gentleman status post hiatal hernia repair in a patient with history of gastric sleeve. Underwent esophagram yesterday reporting obstruction. Patient reports that his oral intake becomes stuck - midsternal. Scheduled for EGD today with dilation. Positive burping, no bowel movement. Potassium 5.3. 07/22/2018 Underwent EGD with dilation yesterday reporting dysphagia, gastroesophageal reflux disease, ineffective esophageal dysmotility, esophageal obstruction, severely distorted sleeve gastrectomy with recommended revision.tolerated procedure well.Repeat esophagram this morning revealed partial significant obstruction. Patient continues to report similar sensation with food /liquids stuck midsternal, minimal improvement. Maintained on IV fluid hydration. Potassium WNL. Afebrile. Objective - Vital Signs Vital signs: Vital Signs Temp 98 F 07/22/18 15:51 Pulse 70 07/22/18 15:51 Resp 16 07/22/18 15:51 BP 141/84 07/22/18 15:51 Pulse Ox 94 L 07/22/18 15:51 Intake & Output 07/21/18 07/22/18 07/22/18 18:59 06:59 18:59 Intake Total 440 110 70 Balance 440 110 70 Intake: IV 300 Intake, IV Titration 140 110 70 Amount Sodium Chloride 0.9% 1, 140 110 70 000 ml @ 10 mls/hr IV . Q24H [facility] Rx#:[id number] Other: Voiding Method Urinal Urinal - Exam PHYSICAL EXAM: VITAL SIGNS: As above GENERAL: Sitting up in bed, no acute distress HEENT: Conjunctivae normal. eyes normal. Oral mucosa moist. NECK: No JVD. No thyroid enlargement. No LNs CARDIOVASCULAR: S1, S2 muffled. No murmur RESPIRATION: Nonlabored, Breath sounds diminished in the bases. No rhonchi or crackles. ABDOMEN: Soft, nontender . Nondistended , status post surgery.positive Bowel sounds. LEGS: No edema. no swelling, no clubbing. PSYCHIATRY: Alert and oriented -3, mood and affect normal. NERVOUS SYSTEM: Cranial N 2-12 grossly normal. Moves all 4 limbs. Diffuse weakness No focal deficits. Skin: no rash. - Labs CBC & Chem 7: 07/18/18 07:47 07/22/18 05:58 Labs: Abnormal Lab Results - Last 24 Hours (Table) 07/22/18 Range/Units 05:58 Carbon Dioxide 34 H (22-30) mmol/L Glucose 106 H (74-99) mg/dL Assessment and Plan Assessment: -Incarcerated paraesophageal hiatal hernia with obstruction without gangrene -Complications from sleeve gastrectomy -Morbid obesity, BMI 34.1 -Obstructive uropathy pre-existing prior to surgery -Hyperkalemia, resolved. -Esophageal obstruction, status post EGD with dilation reporting dysphagia, gastroesophageal reflux disease, ineffective esophageal dysmotility, esophageal obstruction, severely distorted sleeve gastrectomy with recommended revision. Plan: Continue on current medication regime ,monitoring and symptomatic treatment. Maintain IV fluid hydration. Discharge planning in progress as per surgery. Further recommendations to follow. The impression and plan of care has been dictated as directed. : I performed a history and examination of this patient, discussed the same with the dictator. I agree with the dictator's note ,documented as a scribe. Any additional findings or plans will be noted.
[2018-07-22] MEDS: ZOLPIDEM 10 MG TAB PO SCH (20:03)
--- NOTE | 2018-07-22 20:40 | P.PN ---
Progress Note - Text Progress Note Date: 07/22/18 Patient seen and evaluated. He reports initially feeling well and then by this morning/afternoon reports liquids hung up in his chest. Patient reports that Dr. Zarate came into his room, held his discharge after having long discussion with Dr. Zarate his index bariatric surgeon regarding his initial bariatric procedure and current status of his sleeve. I personally reviewed his intraoperative films including esophagrams in detail. Risk of re-operation was described yesterday pending clinical course from dilation. As he is symptomatic, will proceed with revision of hiatal hernia. He is aware that recurrent reflux may occur. Patient offered second opinion prior to proceeding and patient declined. All benefits and risks reviewed. I personally spoke to his including the patient and understood the goals of care.
[2018-07-23] MEDS: ONDANSETRON 4 MG/2 ML VIAL IVP SCH ×4 (01:04→17:36)
[2018-07-23] MEDS: SIMETHICONE 40 MG/0.6 ML DROPS 2,000 MG/30 ML BOTTLE PO SCH ×5 (01:04→17:37)
[2018-07-23] MEDS: METOCLOPRAMIDE 5 MG/ML 2 ML VIAL IVP SCH ×4 (01:04→17:36)
[2018-07-23 08:12] LABS: Anion Gap 4 mmol/L; Blood Urea Nitrogen 9 mg/dL (9-20); Carbon Dioxide 36 mmol/L (22-30); Chloride 102 mmol/L (98-107); Glucose 75 mg/dL (74-99); Potassium 4.7 mmol/L (3.5-5.1); Sodium 142 mmol/L (137-145)
[2018-07-23 08:18] LABS: Anisocytosis Slight; Basophils % (A) 0 %; Eosinophils # (A) 0.4 k/uL (0-0.7); Eosinophils % (A) 7 %; HCT 42.3 % (39.0-53.0); HGB 12.6 gm/dL (13.0-17.5); Hypochromasia Marked; Lymphocytes # (A) 2.3 k/uL (1.0-4.8); Lymphocytes % (A) 41 %; MCH 24.8 pg (25.0-35.0); MCHC 29.7 g/dL (31.0-37.0); MCV 83.4 fL (80.0-100.0); Mean Platelet Volume 8.1; Microcytosis Slight; Monocytes # (A) 0.3 k/uL (0-1.0); Monocytes % (A) 5 %; Neutrophils # (A) 2.4 k/uL (1.3-7.7); Neutrophils % (A) 44 %; Platelet Count 176 k/uL (150-450); RBC 5.08 m/uL (4.30-5.90); RDW 19.1 % (11.5-15.5); WBC 5.5 k/uL (3.8-10.6)
[2018-07-23] MEDS: ALBUTEROL NEBULIZED 2.5 MG/3 ML INHALATION SCH ×4 (08:40→20:45)
[2018-07-23] MEDS ORDERED: LACTATED RINGERS 1,000 ML IV ONE ×2 (09:18→11:21)
[2018-07-23] MEDS ORDERED: ONDANSETRON 4 MG/2 ML VIAL IVP ONE (09:23)
[2018-07-23] MEDS ORDERED: DEXAMETHASONE SOD PHOSPHATE 10 MG/ML 1 ML VIAL IV ONE (09:24)
[2018-07-23] MEDS ORDERED: fentaNYL (PF) 50 MCG/ML 2 ML AMP ONE (10:03)
[2018-07-23] MEDS ORDERED: NEOSTIGMINE 1 MG/ML 10 ML VIAL ONE (10:03)
[2018-07-23] MEDS ORDERED: MIDAZOLAM 2 MG/2 ML VIAL ONE (10:03)
[2018-07-23] MEDS ORDERED: SODIUM CHLORIDE 0.9% 50 ML with ceFAZolin 3,000 MG IV ONE ×2 (10:03)
[2018-07-23] MEDS ORDERED: SUCCINYLCHOLINE CHLORIDE 100 MG/5 ML SYR IV ONE (10:03)
[2018-07-23] MEDS ORDERED: GLYCOPYRROLATE 0.2 MG/ML 2 ML VIAL ONE (10:03)
[2018-07-23] MEDS ORDERED: ROCURONIUM BROMIDE 10 MG/ML 10 ML VIAL IV ONE (10:03)
[2018-07-23] MEDS ORDERED: LIDOCAINE 1% INJ 10MG/ML (20 ML MDV) ONE (10:03)
[2018-07-23] MEDS: ENOXAPARIN 40 MG/0.4 ML SYRINGE SQ SCH (10:03)
[2018-07-23] MEDS ORDERED: PROPOFOL 10 MG/ML 20 ML VIAL IV ONE (10:03)
[2018-07-23] MEDS ORDERED: PHENYLEPHRINE-0.9% NACL SYG 1 MG/10 ML SYRINGE ONE (10:03)
[2018-07-23] MEDS ORDERED: BUPIVACAINE-EPI 0.5%-1:200,000 10 ML VIAL SQ ONE (10:26)
[2018-07-23] MEDS: CYCLOBENZAPRINE 10 MG TAB PO SCH ×2 (10:58→20:10)
[2018-07-23] MEDS: HYDROmorphone 1 MG/ML 1 ML SYRINGE IVP ONE ×2 (12:34→12:54)
--- NOTE | 2018-07-23 12:54 | P.OP ---
Date of Procedure: 07/23/18 Description of Procedure: SURGEON: LULY JOHNSON MD PREOPERATIVE DIAGNOSES: 1. Gastroesophageal reflux disease. 2. Paraesophageal hiatal hernia, midline. 3. Dysphagia 4. Regurgitation 5. History of sleeve gastrectomy 6. Infective esophageal dysmotility 7. Abnormal esophagram 8. Status post hiatal hernia repair POSTOPERATIVE DIAGNOSES: 1. Gastroesophageal reflux disease. 2. Paraesophageal hiatal hernia, midline. 3. Dysphagia 4. Regurgitation 5. History of sleeve gastrectomy 6. Infective esophageal dysmotility 7. Abnormal esophagram 8. Status post hiatal hernia repair 9. Perigastric adhesions Procedure(s) Performed: 1. Robotic-assisted da Jacquelin Xi laparoscopic lysis of adhesions over 45 minutes 2. Robotic-assisted da Jacquelin Xi laparoscopic revision of paraesophageal hiatal hernia 3. Intraoperative esophagogastroduodenoscopy COMPLICATIONS: None. Anesthesia: GETA, local Estimated Blood Loss (ml): 20 Pathology: none sent Condition: stable Disposition: floor Operative Findings: 1. Mesh along hiatus discontinued 2. Initial 3 sutures along posterior hiatus discontinued and replaced with single stitch along hiatus 3. Intraoperative esophagogastroduodenoscopy confirms opened GE junction 4. Extensive lysis of adhesions performed with complete mobilization of sleeve from surrounding tissue to address abnormal distortion 5. Intraoperative findings completely described to patient's over the phone immediately after the case including goals of care 6. Console time 61 minutes INDICATIONS: The patient is a 53-year-old male who seven days ago had repair of an incarcerated paraesophageal hernia with mesh placement. Operatively, he was doing well however developed progressive dysphagia despite conservative measures including esophagogastroduodenoscopy with rigid dilation. Given the severity of symptoms, surgical intervention was recommended for severity of dysphagia. Benefits and risks including bleeding, infection, recurrence, dysphagia, injury to the lung, need for further surgery was described at length. Informed consent was obtained. DESCRIPTION: The patient was brought into the operating room and placed in supine position. Preoperatively he had received heparin subcutaneously for DVT prophylaxis. After general induction, the abdomen was prepped and draped in standard sterile fashion. Ioban draping was placed along the abdomen. A timeout protocol was confirmed with the surgical team, for which the patient's name, procedure to be performed including DVT prophylaxis with bilateral SCDs, and preoperative antibiotics were also confirmed. A robotic da Jacquelin Xi system was prepped and primed. Previous incisions were re -opened. A 5 mm 0 degrees laparoscopic trocar entry was performed along the left upper quadrant. The abdomen was insufflated to 15 mmHg pressure which was tolerated well. Diagnostic laparoscopy demonstrated no injury to bowel, viscera, or mesentery. No injury had occurred to the small bowel or viscera. Next, one 8 mm robotic port was placed along the right upper abdomen. An 8-mm port was were placed along the left lateral abdominal wall. The camera 8-mm port was maintained along the epigastrium via the hernia defect. Another 12 mm port was placed along the left upper abdominal wall after exchanging the 5 mm port. At the epigastrium, a medium sized Andrzej liver retractor was placed under direct visualization with the Iron Telephone Collector placed under the right shoulder of the patient. All robotic arms were used. The patient was repositioned in reverse Trendelenburg position at 18-degrees after lowering the bed. The robot was docked above the right side of the patient. Using a grasper for arm 3, a grasper for arm 1, including vessel sealer for arm 2, the robotic system was docked and primed as described. Instruments were interchanged by the clinical nursing assistant. I had sat at the console. Attention was brought to the sleeve where the adhered omentum was completely mobilized to release the distorted sleeve from the surrounding tissue. Extensive lysis of adhesions over 45 minutes was performed to free the sleeve from surrounding tissue. Severe angulation was confirmed along the angularis incisura and released after lysis of adhesions. The posterior hiatal sutures along the mesh was removed and the mesh was cut and removed. The three posterior hiatal sutures were cut and revised using single 2-0 VLOC simple suture. Intraoperative upper endoscopy was performed to identify the esophagus and confirm release of impingement along the gastroesophageal junction. An Olympus gastroscope was passed through posterior oropharynx. The stomach had been desufflated. No evidence of leaks were found of the esophagus or stomach. The GI tract with desufflated. This concluded the endoscopic portion of the case. The robot was undocked from the patient. I re-scrubbed into the case. All instruments and pneumoperitoneum were evacuated from the abdominal cavity. Incisions were reapproximated using 4-0 Monocryl in an interrupted subcuticular fashion. Liquid glue was applied to the skin. Local anesthetic was infiltrated in all wounds for postop analgesia. Multiple intra-abdominal films were obtained. At the end of the procedure, needle, sponge, and instrument count was verified correct by the certified ophthalmic surgical assistant. The patient had tolerated the procedure well and was taken to the postanesthesia unit in stable condition. Intraoperative films were reviewed with the patient's family who was pleased with the level of care.
[2018-07-23] MEDS ORDERED: ACETAMINOPHEN IV (For NPO) 1,000 MG in EMPTY BAG 1 BAG IVPB ONE (13:00)
[2018-07-23 13:05] LABS: Anion Gap 7 mmol/L; Blood Urea Nitrogen 10 mg/dL (9-20); Calcium 8.6 mg/dL (8.4-10.2); Carbon Dioxide 31 mmol/L (22-30); Chloride 102 mmol/L (98-107); Glucose 98 mg/dL (74-99); Sodium 140 mmol/L (137-145)
[2018-07-23 13:06] LABS: Magnesium 1.5 mg/dL (1.6-2.3); Potassium 4.7 mmol/L (3.5-5.1)
[2018-07-23] MEDS ORDERED: MAGNESIUM SULFATE-D5W PMX 1 GM in DEXTROSE/WATER 1 100ML.BAG IVPB ONE (13:13)
[2018-07-23] MEDS ORDERED: HYDROmorphone 1 MG/ML 1 ML SYRINGE IVP ONE ×2 (13:19→13:38)
[2018-07-23] MEDS: PANTOPRAZOLE 40 MG/10 ML VIAL IV SCH (15:27)
[2018-07-23] MEDS: TAMSULOSIN 0.4 MG CAP.ER.24H PO SCH (15:28)
[2018-07-23] MEDS: LACOSAMIDE 50 MG TABLET PO SCH ×2 (15:28→20:10)
[2018-07-23] MEDS: PREGABALIN 100 MG CAP PO SCH ×2 (15:28→20:10)
[2018-07-23] MEDS: HYDROmorphone 1 MG/ML 1 ML SYRINGE IVP PRN ×2 (15:33→20:12)
[2018-07-23] MEDS: AMPICILLIN-SULBACTAM 3 GM in SODIUM CHLORIDE 0.9% 100 ML IVPB SCH (17:40)
[2018-07-23] MEDS: ZOLPIDEM 10 MG TAB PO SCH (20:10)
--- NOTE | 2018-07-23 20:13 | P.PN ---
Subjective Progress Note Date: 07/23/18 Interval history: This a 53-year-old gentleman status post hiatal hernia repair in a patient with history of gastric sleeve. Underwent esophagram yesterday reporting obstruction. Patient reports that his oral intake becomes stuck - midsternal. Scheduled for EGD today with dilation. Positive burping, no bowel movement. Potassium 5.3. 07/22/2018 Underwent EGD with dilation yesterday reporting dysphagia, gastroesophageal reflux disease, ineffective esophageal dysmotility, esophageal obstruction, severely distorted sleeve gastrectomy with recommended revision.tolerated procedure well.Repeat esophagram this morning revealed partial significant obstruction. Patient continues to report similar sensation with food /liquids stuck midsternal, minimal improvement. Maintained on IV fluid hydration. Potassium WNL. Afebrile. 07/23/2018 Maintained on IV fluid hydration .NPO, scheduled for revision of hiatal hernia repair today. Denies chest pain, palpitations or increased shortness of breath. Maintaining O2 sats of 94% on room air.Afebrile. Objective - Vital Signs Vital signs: Vital Signs Temp 97.2 F L 07/23/18 12:02 Pulse 67 07/23/18 13:45 Resp 16 07/23/18 13:45 BP 133/85 07/23/18 13:45 Pulse Ox 98 07/23/18 13:45 Intake & Output 07/22/18 07/23/18 07/23/18 18:59 06:59 18:59 Intake Total 70 250 2000 Output Total 420 Balance 70 250 1580 Weight 127.006 kg Intake: IV 2000 Intake, IV Titration 70 Amount Sodium Chloride 0.9% 1, 70 000 ml @ 10 mls/hr IV . Q24H [facility] Rx#:[id number] Oral 250 Output: Urine 400 Estimated Blood Loss 20 Other: Voiding Method Urinal # Voids 1 - Exam PHYSICAL EXAM: VITAL SIGNS: As above GENERAL: Sitting up in bed, no acute distress HEENT: Conjunctivae normal. eyes normal. Oral mucosa dry-NPO NECK: No JVD. No thyroid enlargement. No LNs CARDIOVASCULAR: S1, S2 muffled. No murmur RESPIRATION: Nonlabored, Breath sounds diminished in the bases. No rhonchi or crackles. ABDOMEN: Soft, nontender . Nondistended , status post surgery.positive Bowel sounds. LEGS: No edema. no swelling, no clubbing. PSYCHIATRY: Alert and oriented -3, mood and affect normal. NERVOUS SYSTEM: Cranial N 2-12 grossly normal. Moves all 4 limbs. No focal deficits. Skin: no rash. - Labs CBC & Chem 7: 07/23/18 07:03 07/23/18 12:31 Labs: Abnormal Lab Results - Last 24 Hours (Table) 07/23/18 07/23/18 07/23/18 Range/Units 07:03 07:03 12:31 Hgb 12.6 L (13.0-17.5) gm/dL MCH 24.8 L (25.0-35.0) pg MCHC 29.7 L (31.0-37.0) g/dL RDW 19.1 H (11.5-15.5) % Carbon Dioxide 36 H 31 H (22-30) mmol/L Magnesium 1.5 L (1.6-2.3) mg/dL Assessment and Plan Assessment: -Incarcerated paraesophageal hiatal hernia with obstruction without gangrene -Complications from sleeve gastrectomy -Morbid obesity, BMI 34.1 -Obstructive uropathy pre-existing prior to surgery -Hyperkalemia, resolved. -Esophageal obstruction, status post EGD with dilation reporting dysphagia, gastroesophageal reflux disease, ineffective esophageal dysmotility, esophageal obstruction, severely distorted sleeve gastrectomy with pending revision. Plan: Continue on current medication regime ,monitoring and symptomatic treatment. Maintain IV fluid hydration. NPO, Scheduled for revision this am. Aggressive pulmonary toileting. The impression and plan of care has been dictated as directed. : I performed a history and examination of this patient, discussed the same with the dictator. I agree with the dictator's note ,documented as a scribe. Any additional findings or plans will be noted.
[2018-07-23] MEDS: SODIUM CHLORIDE 0.9% 1,000 ML IV SCH (21:17)
[2018-07-24] MEDS: AMPICILLIN-SULBACTAM 3 GM in SODIUM CHLORIDE 0.9% 100 ML IVPB SCH (01:31)
[2018-07-24] MEDS: METOCLOPRAMIDE 5 MG/ML 2 ML VIAL IVP SCH ×3 (01:32→14:04)
[2018-07-24] MEDS: SIMETHICONE 40 MG/0.6 ML DROPS 2,000 MG/30 ML BOTTLE PO SCH ×3 (01:33→14:04)
[2018-07-24] MEDS: ONDANSETRON 4 MG/2 ML VIAL IVP SCH ×3 (01:33→14:04)
[2018-07-24] MEDS: HYDROmorphone 1 MG/ML 1 ML SYRINGE IVP PRN (04:08)
--- NOTE | 2018-07-24 07:18 | P.PN ---
Progress Note - Text Progress Note Date: 07/23/18 Patient seen and evaluated. "I feel great.". No further reports of dysphagia. No nausea or vomiting. No further pain along the epigastrium. Discharge instructions reviewed. Likely discharge home tomorrow.
[2018-07-24] MEDS: ALBUTEROL NEBULIZED 2.5 MG/3 ML INHALATION SCH ×2 (07:25→12:09)
[2018-07-24 08:07] VITALS: BP 114/77; PULSE 83; RESP 16; TEMP 98.6
[2018-07-24] MEDS: DEXAMETHASONE SOD PHOSPHATE 4 MG/ML 1 ML VIAL IV SCH ×2 (08:58→14:04)
[2018-07-24] MEDS: HYDROcodone/APAP 15 ML SOLUTION PO PRN ×2 (08:58→14:00)
[2018-07-24] MEDS: LACOSAMIDE 50 MG TABLET PO SCH (08:59)
[2018-07-24] MEDS: ENOXAPARIN 40 MG/0.4 ML SYRINGE SQ SCH (08:59)
[2018-07-24] MEDS: CYCLOBENZAPRINE 10 MG TAB PO SCH (08:59)
[2018-07-24] MEDS: PANTOPRAZOLE 40 MG/10 ML VIAL IV SCH (08:59)
[2018-07-24] MEDS: PREGABALIN 100 MG CAP PO SCH (08:59)
[2018-07-24] MEDS: TAMSULOSIN 0.4 MG CAP.ER.24H PO SCH (08:59)
[2018-07-24 09:25] LABS: Anion Gap 7 mmol/L; Blood Urea Nitrogen 10 mg/dL (9-20); Calcium 8.9 mg/dL (8.4-10.2); Carbon Dioxide 34 mmol/L (22-30); Chloride 101 mmol/L (98-107); Magnesium 1.8 mg/dL (1.6-2.3); Phosphorus 3.7 mg/dL (2.5-4.5); Potassium 3.9 mmol/L (3.5-5.1); Sodium 142 mmol/L (137-145)
[2018-07-24 09:42] LABS: Anisocytosis Slight; HCT 43.4 % (39.0-53.0); HGB 12.6 gm/dL (13.0-17.5); Hypochromasia Marked; MCH 24.1 pg (25.0-35.0); MCHC 29.1 g/dL (31.0-37.0); MCV 82.7 fL (80.0-100.0); Mean Platelet Volume 9.3; Microcytosis Slight; RBC 5.24 m/uL (4.30-5.90); RDW 18.9 % (11.5-15.5); WBC 6.5 k/uL (3.8-10.6)
[2018-07-24 10:52] LABS: Eosinophils # (M) 0.13 k/uL (0-0.7); Lymphocytes # (M) 1.89 k/uL (1.0-4.8); Monocytes # (M) 0.59 k/uL (0-1.0); Neutrophils % (M) 60 %; Nucleated Red Blood Cells 0 /100 WBC (0-0); Total Cells Counted 100
[2018-07-24 10:58] LABS: Platelet Count 145 k/uL (150-450)
--- NOTE | 2018-07-24 11:05 | P.PN ---
Subjective Progress Note Date: 07/24/18 CHIEF COMPLAINT: Incarcerated paraesophageal hiatal hernia HISTORY OF PRESENT ILLNESS: The patient is a 53-year-old gentleman status post robotic-assisted hiatal hernia repair, POD 8 from index operation and POD 1, status post revision of hiatal hernia with extensive lysis of adhesions. He reports no troubles with swallowing. Dysphagia completely resolved. He is tolerating liquids. PHYSICAL EXAM: VITAL SIGNS: Reviewed GENERAL: Well-developed in no acute distress. HEENT: No sclera icterus. Extraocular movements grossly intact. Moist buccal mucosa. Head is atraumatic, normocephalic. Hears conversational speech. No nasal drainage. NECK: Supple without lymphadenopathy. CHEST: Non-labored respirations and equal bilateral excursions. CARDIOVASCULAR: Palpable 2+ radial pulses. Regular rate and regular rhythm ABDOMEN: Soft, nondistended, nontender. Incision clean dry and intact MUSCULOSKELETAL: No clubbing, cyanosis or edema. NEUROLOGIC: No focal or lateralizing signs. Cranial nerves II through XII grossly intact. PSYCH: Appropriate affect. Alert and oriented to person, place and time. SKIN: Well perfused. Good skin turgor. LABS: Reviewed ASSESSMENT: 1. Incarcerated paraesophageal hiatal hernia with obstruction without gangrene 2. Complications from sleeve gastrectomy 3. Morbid obesity due to excess calories 4. History of obstructive uropathy pre-existing prior to surgery 5. Chronic pain syndrome 6. Esophageal obstruction 7. Persistent hyperkalemia 8. Ineffective esophageal dysmotility 9. Peritoneal adhesions PLAN: 1. He is doing very well and will continue with post bariatric dietary orders which includes no carbonated beverages as well as high protein shakes. 2. He will follow-up in the bariatric center 3. Esophogram to be done as an outpatient Objective - Vital Signs Vital signs: Vital Signs Temp 98.6 F 07/24/18 08:01 Pulse 83 07/24/18 08:01 Resp 16 07/24/18 08:01 BP 114/77 07/24/18 08:01 Pulse Ox 93 L 07/24/18 08:01 Intake & Output 07/23/18 07/24/18 07/24/18 18:59 06:59 18:59 Intake Total 2800 100 400 Output Total 1020 Balance 1780 100 400 Weight 127.006 kg Intake: IV 2000 Oral 800 100 400 Output: Urine 1000 Estimated Blood Loss 20 Other: # Voids 3 - Labs CBC & Chem 7: 07/24/18 08:34 07/24/18 08:34 Labs: Abnormal Lab Results - Last 24 Hours (Table) 07/23/18 07/24/18 07/24/18 Range/Units 12:31 08:34 08:34 Hgb 12.6 L (13.0-17.5) gm/dL MCH 24.1 L (25.0-35.0) pg MCHC 29.1 L (31.0-37.0) g/dL RDW 18.9 H (11.5-15.5) % Plt Count 145 L (150-450) k/uL Carbon Dioxide 31 H 34 H (22-30) mmol/L Magnesium 1.5 L (1.6-2.3) mg/dL Assessment and Plan (1) Incarcerated paraesophageal hernia Current Visit: Yes Status: Acute Code(s): K44.0 - DIAPHRAGMATIC HERNIA WITH OBSTRUCTION, WITHOUT GANGRENE SNOMED Code(s): 27570601 (2) History of sleeve gastrectomy Current Visit: Yes Status: Acute Code(s): Z90.3 - ACQUIRED ABSENCE OF STOMACH [PART OF] SNOMED Code(s): 651438595 (3) Morbid obesity due to excess calories Current Visit: Yes Status: Acute Code(s): E66.01 - MORBID (SEVERE) OBESITY DUE TO EXCESS CALORIES SNOMED Code(s): 620168156 (4) Regurgitant esophagitis Current Visit: Yes Status: Acute Code(s): K21.0 - GASTRO-ESOPHAGEAL REFLUX DISEASE WITH ESOPHAGITIS SNOMED Code(s): 96684299 (5) Acquired gastric fistula Current Visit: Yes Status: Acute Code(s): K31.6 - FISTULA OF STOMACH AND DUODENUM SNOMED Code(s): 061850693 (6) Peritoneal adhesions Current Visit: Yes Status: Acute Code(s): K66.0 - PERITONEAL ADHESIONS ( POSTPROCEDURAL) (POSTINFECTION) SNOMED Code(s): 45427249 (7) COPD (chronic obstructive pulmonary disease) Current Visit: No Status: Chronic Code(s): J44.9 - CHRONIC OBSTRUCTIVE PULMONARY DISEASE, UNSPECIFIED SNOMED Code(s): 28754333 (8) Peripheral neuropathy Current Visit: No Status: Chronic Code(s): G62.9 - POLYNEUROPATHY, UNSPECIFIED SNOMED Code(s): 479878382 (9) Esophageal obstruction Current Visit: Yes Status: Acute Code(s): K22.2 - ESOPHAGEAL OBSTRUCTION SNOMED Code(s): 390767519 (10) Hyperkalemia Current Visit: Yes Status: Acute Code(s): E87.5 - HYPERKALEMIA SNOMED Code (s): 71697846
--- NOTE | 2018-07-24 11:17 | P.DS ---
Providers Date of admission: 07/17/18 09:20 Expected date of discharge: 07/24/18 Attending physician: Alycia Dumont Consults: 07/17/18 22:21 Consult Physician Routine Consulting Provider: Chavez Pedraza Consult Reason/Comments: medical management Do you want consulting provider notified?: Yes, Notify in am Primary care physician: Eric Ang - Discharge Diagnosis(es) (1) Incarcerated paraesophageal hernia Current Visit: Yes Status: Acute (2) History of sleeve gastrectomy Current Visit: Yes Status: Acute (3) Morbid obesity due to excess calories Current Visit: Yes Status: Acute (4) Regurgitant esophagitis Current Visit: Yes Status: Acute (5) Acquired gastric fistula Current Visit: Yes Status: Acute (6) Peritoneal adhesions Current Visit: Yes Status: Acute (7) COPD (chronic obstructive pulmonary disease) Current Visit: No Status: Chronic (8) Peripheral neuropathy Current Visit: No Status: Chronic (9) Esophageal obstruction Current Visit: Yes Status: Acute (10) Hyperkalemia Current Visit: Yes Status: Acute (11) Ineffective esophageal motility Current Visit: Yes Status: Acute Hospital Course: POSTOPERATIVE DIAGNOSES: 1. Gastroesophageal reflux disease. 2. Incarcerated midline paraesophageal hiatal hernia involving stomach without gangrene, 10 x 4 cm 3. Dysphagia 4. Regurgitation 5. History of sleeve gastrectomy 6. Infective esophageal dysmotility 7. Hypertensive cardiomyopathy 8. Morbid obesity due to excess calories, BMI 34.1 9. Chronic pain syndrome 10. Obstructive uropathy secondary to prostatic hypertrophy 11. Depressive disorder 12. Gout 13. Hyperlipidemia 14. Chronic bilateral hip pain 15. Chronic lower back pain 16. Bilateral lower extremity neuropathy 17. Complications from sleeve gastrectomy, gastric gastric fistula superior pole of the stomach COURSE: The patient is a 53-year-old gentleman with history of severe gastroesophageal reflux disease including infective esophageal dysmotility and complications from a sleeve gastrectomy including morbid obesity who comes in for surgery. He underwent multiple surgical clearances including medical and cardiac. He had completed a manometry confirming severe ineffective esophageal dysmotility making his procedure higher risk. He initially underwent hiatal hernia repair on 07/17/2018. Initially the patient felt well however developed progressive dysphagia. Attempts including rigid dilation was performed with recurrent symptoms. He then underwent revision of his hiatal hernia where his symptoms of dysphagia resolved. He is able to tolerate liquids. Bariatric dietitian and post-discharge diet was reviewed in detail. Medical management for his underlying cardiac status was performed with finding of hyperkalemia and corrected. Prior to discharge, he was tolerating diet. He was clinically stable. Follow-up with both his primary care provider including bariatric center was described. Pertinent Studies: 1. Esophgram showing complete obstruction 07/20/18 2. Esophogram 07/22/18 showing partial obstruction Procedures: Procedure(s) Performed 07/17/2018: 1. Robotic-assisted da Jacquelin Xi laparoscopic lysis of adhesions over 1.5 hours 2. Robotic-assisted da Jacquelin Xi laparoscopic reduction and repair of incarcerated paraesophageal hiatal hernia, 4 x 10 cm with [place] Biopatch A 8 x 8 cm. 3. Robotic-assisted da Jacquelin Xi laparoscopic takedown of gastric gastric fistula 4. Intraoperative esophagogastroduodenoscopy Procedure(s) Performed 07/21/2018: 1. EGD with rigid dilation, 60 Fr Procedure(s) Performed 07/23/2018: 1. Robotic-assisted extensive lysis of adhesions over 45 minutes 2. Revision of hiatal hernia repair Plan - Discharge Summary Discharge Rx Participant: Yes New Discharge Prescriptions: New Bisacodyl [Dulcolax] 5 mg PO DAILY PRN #10 tablet. PRN Reason: Constipation Metoclopramide [Reglan] 10 mg PO ACHS #30 tab Ondansetron Odt [Zofran Odt] 4 mg PO Q8HR PRN #9 tab PRN Reason: Nausea Simethicone 40 mg/0.6 ml Drops [Mylicon Drops] 40 mg PO PCHS PRN #30 ml PRN Reason: Gas Continue RX: Escitalopram [Lexapro] 10 mg PO QAM RX: Cyclobenzaprine [Flexeril] 10 mg PO BID RX: Allopurinol [Zyloprim] 300 mg PO DAILY RX: Zolpidem Tartrate [Ambien] 10 mg PO HS RX: Simvastatin [Zocor] 80 mg PO HS RX: Lacosamide [Vimpat] 50 mg PO BID RX: oxyCODONE HCL/ACETAMINOPHEN [Percocet 7.5-325 mg] 1 tab PO BID RX: Tamsulosin [Flomax] 0.4 mg PO DAILY RX: Ranitidine HCl [Zantac] 150 mg PO HS RX: Ergocalciferol (Vitamin D2) [Vitamin D2] 50,000 unit PO MO RX: Lisinopril [Zestril] 2.5 mg PO DAILY RX: Pregabalin [Lyrica] 300 mg PO BID RX: Omeprazole 40 mg PO DAILY Discontinued RX: Ibuprofen 800 mg PO TID PRN PRN Reason: Pain Discharge Medication List RX: Allopurinol [Zyloprim] 300 mg PO DAILY 06/04/16 [History] RX: Cyclobenzaprine [Flexeril] 10 mg PO BID 06/04/16 [History] RX: Escitalopram [Lexapro] 10 mg PO QAM 06/04/16 [History] RX: Lacosamide [Vimpat] 50 mg PO BID 03/25/18 [History] RX: Simvastatin [Zocor] 80 mg PO HS 03/25/18 [History] RX: Zolpidem Tartrate [Ambien] 10 mg PO HS 03/25/18 [History] RX: oxyCODONE HCL/ACETAMINOPHEN [Percocet 7.5-325 mg] 1 tab PO BID 03/25/18 [ History] RX: Ergocalciferol (Vitamin D2) [Vitamin D2] 50,000 unit PO MO 06/19/18 [History ] RX: Ranitidine HCl [Zantac] 150 mg PO HS 06/19/18 [History] RX: Tamsulosin [Flomax] 0.4 mg PO DAILY 06/19/18 [History] RX: Lisinopril [Zestril] 2.5 mg PO DAILY 07/14/18 [History] RX: Omeprazole 40 mg PO DAILY 07/17/18 [History] RX: Pregabalin [Lyrica] 300 mg PO BID 07/17/18 [History] Bisacodyl [Dulcolax] 5 mg PO DAILY PRN #10 tablet. 07/20/18 [Rx] Metoclopramide [Reglan] 10 mg PO ACHS #30 tab 07/20/18 [Rx] Ondansetron Odt [Zofran Odt] 4 mg PO Q8HR PRN #9 tab 07/20/18 [Rx] Simethicone 40 mg/0.6 ml Drops [Mylicon Drops] 40 mg PO PCHS PRN #30 ml [Rx] Follow up Appointment(s)/Referral(s): Eric Ang DO [Primary Care Provider] - 07/29/18 10:45 am Bariatric Center,. [NON-STAFF] - 07/29/18 3:00 pm Patient Instructions/Handouts: Hiatal Hernia (IP), Laparoscopic Hiatal Hernia Repair (DC) Activity/Diet/Wound Care/Special Instructions: No lifting over 4 pounds in 4 weeks. May shower. No bath tub soaks. Continue with liquid diet only. No straws. No carbonated beverages. Discharge Disposition: HOME SELF-CARE
== END 2018-07-24 14:35 | disposition home or self-care (01) | DRG 327 ==
LOC: 2ORMAIN 09:20 → 4SSUR 15:27
PROVIDERS: ADMIT Surgery Plastic and Reconstructive Surgery; ATTEND Surgery Plastic and Reconstructive Surgery
PROC: 0BUT4JZ Supplement Diaphragm with Synthetic Substitute, Percutaneous Endoscopic Approach (ICD-10-PCS; 2018-07-17)
PROC: 0DNU4ZZ Release Omentum, Percutaneous Endoscopic Approach (ICD-10-PCS; 2018-07-17)
PROC: 8E0W4CZ Robotic Assisted Procedure of Trunk Region, Percutaneous Endoscopic Approach (ICD-10-PCS; 2018-07-17)
PROC: 0DB64ZZ Excision of Stomach, Percutaneous Endoscopic Approach (ICD-10-PCS; 2018-07-17)
PROC: 0DJ08ZZ Inspection of Upper Intestinal Tract, Via Natural or Artificial Opening Endoscopic (ICD-10-PCS; 2018-07-17)
PROC: 0DN64ZZ Release Stomach, Percutaneous Endoscopic Approach (ICD-10-PCS; principal; 2018-07-17 10:50)
PROC: 0D718ZZ Dilation of Upper Esophagus, Via Natural or Artificial Opening Endoscopic (ICD-10-PCS; 2018-07-21)
PROC: 0DN64ZZ Release Stomach, Percutaneous Endoscopic Approach (ICD-10-PCS; 2018-07-23)
PROC: 0BQT4ZZ Repair Diaphragm, Percutaneous Endoscopic Approach (ICD-10-PCS; 2018-07-23)
PROC: 8E0W4CZ Robotic Assisted Procedure of Trunk Region, Percutaneous Endoscopic Approach (ICD-10-PCS; 2018-07-23)
PROC: 0DJ08ZZ Inspection of Upper Intestinal Tract, Via Natural or Artificial Opening Endoscopic (ICD-10-PCS; 2018-07-23)
DX: K44.0 Diaphragmatic hernia with obstruction, without gangrene (principal); I43 Cardiomyopathy in diseases classified elsewhere; N13.8 Other obstructive and reflux uropathy; K31.6 Fistula of stomach and duodenum; K95.89 Other complications of other bariatric procedure; E87.5 Hyperkalemia; E66.01 Morbid (severe) obesity due to excess calories; Z68.34 Body mass index [BMI] 34.0-34.9, adult; I11.9 Hypertensive heart disease without heart failure; K21.0 Gastro-esophageal reflux disease with esophagitis; K22.4 Dyskinesia of esophagus; K66.0 Peritoneal adhesions (postprocedural) (postinfection); K29.70 Gastritis, unspecified, without bleeding; K22.2 Esophageal obstruction; J44.9 Chronic obstructive pulmonary disease, unspecified; F32.9 Major depressive disorder, single episode, unspecified; N40.1 Benign prostatic hyperplasia with lower urinary tract symptoms; E78.5 Hyperlipidemia, unspecified; G89.4 Chronic pain syndrome; G60.9 Hereditary and idiopathic neuropathy, unspecified; M19.91 Primary osteoarthritis, unspecified site; M25.551 Pain in right hip; M25.552 Pain in left hip; M54.5 Low back pain; M10.9 Gout, unspecified; Z71.3 Dietary counseling and surveillance; Z79.891 Long term (current) use of opiate analgesic; Z79.899 Other long term (current) drug therapy; Z98.84 Bariatric surgery status; Z87.891 Personal history of nicotine dependence; Z71.6 Tobacco abuse counseling; Z80.1 Family history of malignant neoplasm of trachea, bronchus and lung; Z82.49 Family history of ischemic heart disease and other diseases of the circulatory system
CPT/HCPCS: 36415; 43249; 74210; 80048; 80051; 82310; 82565; 83735; 84100; 84132; 84520; 85025; 94640; 94760

== ENCOUNTER → 2018-08-26 | Outpatient (CLI) | payer MEDICARE, OTHER ==
[2018-08-26 14:00] VITALS: BP 125/87; PULSE 101; RESP 16; TEMP 97.7; BMI 35.0
--- NOTE | 2018-08-26 14:39 | P.PN ---
Subjective Progress Note Date: 08/26/18 HPI: He was doing well 2 weeks out after being on a liquid diet. He was non- compliant with his diet and now has food spitting up. He can tolerate nachos and burritos. He is forgetful of his food. He choses to skip breakfast. ABDOMEN: Pain pump at left lower quadrant. PLAN: 1. Repeat esophogram. 2. Dietary meal plan described. 3. May need labs Objective - Vital Signs Vital signs: Vital Signs Temp 97.7 F 08/26/18 13:57 Pulse 101 H 08/26/18 13:57 Resp 16 08/26/18 13:57 BP 125/87 08/26/18 13:57 Pulse Ox Intake & Output 08/25/18 08/26/18 08/26/18 18:59 06:59 18:59 Weight 130.635 kg
== END ==
LOC: BARWHC3 13:23
PROVIDERS: ATTEND Surgery Plastic and Reconstructive Surgery
DX: R10.32 Left lower quadrant pain (principal)
CPT/HCPCS: 99211

== ENCOUNTER → 2018-08-27 | Outpatient (CLI) | payer MEDICARE, OTHER ==
[2018-08-27 14:56] LABS: Anisocytosis Slight; HCT 40.9 % (39.0-53.0); HGB 11.9 gm/dL (13.0-17.5); Hypochromasia Marked; MCH 24.9 pg (25.0-35.0); MCHC 29.1 g/dL (31.0-37.0); MCV 85.7 fL (80.0-100.0); Mean Platelet Volume 8.7; Platelet Count 181 k/uL (150-450); RBC 4.78 m/uL (4.30-5.90); RDW 18.4 % (11.5-15.5); WBC 5.9 k/uL (3.8-10.6)
[2018-08-27 15:02] LABS: INR 1.2 (<1.2); Partial Thromboplastin Time 27.1 sec (22.0-30.0); Prothrombin Time 12.2 sec (9.0-12.0)
[2018-08-27 20:07] LABS: Parathyroid Hormone Intact 75.8 pg/mL (14.0-72.0)
[2018-08-27 20:12] LABS: Iron Saturation 14.44 (15.00-50.00)
[2018-08-27 20:18] LABS: Albumin 3.8 g/dL (3.80-4.90); Albumin/Globulin Ratio 1.23 (1.60-3.17); Anion Gap 5.4 mmol/L (4.00-12.00); Calcium 9.3 mg/dL (8.7-10.3); Carbon Dioxide 35.6 mmol/L (21.6-31.8); Globulin 3.1 g/dL (1.6-3.3); LDL Cholesterol,Calculated 63.4 mg/dL (0.0-131.0); Magnesium 1.5 mg/dL (1.5-2.4); Phosphorus 3.7 mg/dL (2.4-5.1); Potassium 4.4 mmol/L (3.5-5.5); Total Bilirubin 0.4 mg/dL (0.3-1.2); Total Protein 6.9 g/dL (6.2-8.2); VLDL Calculation 10.6 mg/dL (5.00-40.00)
[2018-08-27 20:21] LABS: Folate, Serum 6.4 ng/mL; Vitamin D 25 Hydroxy 72.6 ng/mL (30.0-100.0)
[2018-08-28 15:16] LABS: Zinc, Serum 63 ug/dL (60-130)
== END | disposition home or self-care (01) ==
LOC: LABWHC1 14:31
PROVIDERS: ATTEND Surgery Plastic and Reconstructive Surgery
DX: E21.1 Secondary hyperparathyroidism, not elsewhere classified (principal); E89.1 Postprocedural hypoinsulinemia; D50.9 Iron deficiency anemia, unspecified; K90.9 Intestinal malabsorption, unspecified; E44.0 Moderate protein-calorie malnutrition; E55.9 Vitamin D deficiency, unspecified; K74.1 Hepatic sclerosis; N19 Unspecified kidney failure; K50.90 Crohn's disease, unspecified, without complications
CPT/HCPCS: 36415; 80053; 80061; 82306; 82525; 82607; 82728; 82746; 83036; 83540; 83550; 83735; 83970; 84100; 84134; 84255; 84425; 84443; 84590; 84630; 85027; 85610; 85730

== ENCOUNTER 2018-08-28 12:22 | Day surgery (SDC) | payer MEDICARE, OTHER ==
[2018-08-27 13:21] VITALS: BMI 34.7
--- NOTE | 2018-08-28 08:48 | P.GSHP ---
History of Present Illness H&P Date: 08/28/18 CHIEF COMPLAINT: GERD HISTORY OF PRESENT ILLNESS: The patient is a 53-year-old male who presents reports gastroesophageal reflux disease. Upper endoscopy was offered for further evaluation and management. PAST MEDICAL HISTORY: Please see list. PAST SURGICAL HISTORY: Please see list. MEDICATIONS: Please see list. ALLERGIES: Please see list. SOCIAL HISTORY: No illicit drug use FAMILY HISTORY: No reports of Crohn disease or ulcerative colitis. REVIEW OF ORGAN SYSTEMS: CONSTITUTIONAL: No reports of fevers or chills. GI: Denies any blood in stools or constipation. PHYSICAL EXAM: VITAL SIGNS: Stable GENERAL: Well-developed and pleasant in no acute distress. HEENT: No scleral icterus. Extraocular movements grossly intact. Moist buccal mucosa. NECK: Supple without lymphadenopathy. CHEST: Unlabored respirations. Equal bilateral excursions. CARDIOVASCULAR: Regular rate and rhythm. Distal 2+ pulses. ABDOMEN: Soft, nondistended. MUSCULOSKELETAL: No clubbing, cyanosis, or edema. ASSESSMENT: 1. Gastroesophageal reflux disease PLAN: 1. Recommend proceeding with an upper endoscopy Past Medical History Past Medical History: GERD/Reflux, Hypertension, Osteoarthritis (OA) Additional Past Medical History / Comment(s): hiatal hernia, gout, neuropathy marta legs and feet, History of Any Multi-Drug Resistant Organisms: MRSA Date of last positivie culture/infection: approx 10 yrs ago MDRO Source:: left hip Past Surgical History: Back Surgery, Bariatric Surgery, Joint Replacement, Orthopedic Surgery Additional Past Surgical History / Comment(s): PAIN PUMP IMPLANTED 07/17/18, GASTRIC SLEEVE, BILATERAL KNEE arthroscopy, BILATERAL HIP replacement, LEFT SHOULDER replacement, LEFT ACHILES TENDON SX., RIGHT BIG TOE, echocardiolgram, spinal fusion Past Anesthesia/Blood Transfusion Reactions: No Reported Reaction Smoking Status: Former smoker - Past Family History Father Family Medical History: Cancer Additional Family Medical History / Comment(s): lung Mother Family Medical History: Coronary Artery Disease (CAD), Hypertension Medications and Allergies Home Medications Medication Instructions Recorded Confirmed Type Allopurinol [Zyloprim] 300 mg PO DAILY 06/04/16 08/27/18 History Cyclobenzaprine [Flexeril] 10 mg PO BID 06/04/16 08/27/18 History Escitalopram [Lexapro] 10 mg PO QAM 06/04/16 08/27/18 History Lacosamide [Vimpat] 50 mg PO BID 03/25/18 08/27/18 History Simvastatin [Zocor] 80 mg PO HS 03/25/18 08/27/18 History Zolpidem Tartrate [Ambien] 10 mg PO HS 03/25/18 08/27/18 History oxyCODONE HCL/ACETAMINOPHEN 1 tab PO BID PRN 03/25/18 08/27/18 History [Percocet 7.5-325 mg] Ergocalciferol (Vitamin D2) 50,000 unit PO MO 06/19/18 08/27/18 History [Vitamin D2] Ranitidine HCl [Zantac] 150 mg PO HS 06/19/18 08/27/18 History Tamsulosin [Flomax] 0.4 mg PO DAILY 06/19/18 08/27/18 History Lisinopril [Zestril] 2.5 mg PO DAILY 07/14/18 08/27/18 History Omeprazole 40 mg PO DAILY 07/17/18 08/27/18 History Pregabalin [Lyrica] 300 mg PO BID 07/17/18 08/27/18 History Metoclopramide [Reglan] 10 mg PO ACHS #30 tab 07/20/18 08/27/18 Rx Ondansetron Odt [Zofran Odt] 4 mg PO Q8HR PRN #9 tab 07/20/18 08/27/18 Rx Simethicone 40 mg/0.6 ml Drops 40 mg PO PCHS PRN #30 ml 07/20/18 08/27/18 Rx [Mylicon Drops] Morphine Pain Pump 102.4 mg EPIDURAL DIRECTED 08/26/18 08/27/18 History Allergies Allergy/AdvReac Type Severity Reaction Status Date / Time No Known Allergies Allergy Verified 08/27/18 13:11
[~2018-08-28 12:22] MED LIST changes: -CHLORHEXIDINE GLUCONATE 15 ML CUP MUCOUS MEM ONE; -DEXAMETHASONE SOD PHOSPHATE 10 MG/ML 1 ML VIAL IV ONE; -ENOXAPARIN 40 MG/0.4 ML SYRINGE SQ STA; -HYDROmorphone 0.5 MG/0.5 ML SYRINGE IVP PRN; +LACTATED RINGERS 1,000 ML IV SCH; -MIDAZOLAM 2 MG/2 ML VIAL IV PRN; -ONDANSETRON 4 MG/2 ML VIAL IVP ONE; -PANTOPRAZOLE 40 MG/10 ML VIAL IV STA; -SCOPOLAMINE 1.5MG/72HR PATCH TRANSDERM ONE
[2018-08-28 13:19] VITALS: RESP 16; TEMP 97
[2018-08-28] MEDS ORDERED: fentaNYL (PF) 50 MCG/ML 2 ML AMP ONE (14:05)
[2018-08-28] MEDS ORDERED: MIDAZOLAM 2 MG/2 ML VIAL ONE (14:05)
[2018-08-28] MEDS ORDERED: PROPOFOL 10 MG/ML 20 ML VIAL IV ONE (14:05)
--- NOTE | 2018-08-28 14:27 | P.PCN ---
Date of Procedure: 08/28/18 Description of Procedure: PREOPERATIVE DIAGNOSIS: Status post sleeve gastrectomy. Status post hiatal hernia repair Dysphagia Gastroesophageal reflux disease. Epigastric abdominal pain. POSTOPERATIVE DIAGNOSIS: Status post sleeve gastrectomy. Status post hiatal hernia repair Dysphagia Gastroesophageal reflux disease. Epigastric abdominal pain. Severe erosive esophagitis with esophageal ulcer at distal esophagus OPERATION: Esophagogastroduodenoscopy with cold forceps biopsies along the stomach SURGEON: Alycia Dumont MD ANESTHESIA: MAC. INDICATIONS: The patient is a 53-year-old male who presents with a history of sleeve gastrectomy with abdominal pain. Benefits and risks of the procedure were described. Informed consent was obtained. DESCRIPTION: The patient was brought into the endoscopy suite and laid in the left lateral decubitus position. An Olympus gastroscope was passed along the posterior oropharynx down to the distal esophagus was severe erosive esophagitis including chronic ulceration of 3 cm first found between 40-43 cm from the incisors. Severe erosive esophagitis LA grade C was found for 6 cm segment. Dilation of the esophagus confirmed. The stomach was entered without recurrent hiatal hernia. The sleeve was highly tortuous with deformed angularity and difficulty entering the proximal duodenum. Chronic gastritis was found along the antrum with cold biopsies obtained. The first portion of the duodenum was examined and unremarkable. The stomach was desufflated. The patient tolerated the procedure well. FINDINGS: Severecorkscrewing sleeve gastrectomy. Distal esophagus was severe erosive esophagitis including chronic ulceration of 3 cm first found between 40-43 cm from the incisors Severe erosive esophagitis LA grade C was found for 6 cm segment. Dilation of the esophagus confirmed. No active duodenitis. Chronic gastritis. RECOMMENDATIONS: Recommend Carafate and omeprazole for 2-4 weeks. Will likely need definitive antireflux operation such as gastric diversion with Lee-en-Y reconstruction Plan - Discharge Summary Discharge Rx Participant: No New Discharge Prescriptions: New Sucralfate [Carafate] 1 gm PO BID #30 tablet Omeprazole 40 mg PO DAILY #90 capsule.dr Castillo Action Escitalopram [Lexapro] 10 mg PO QAM Cyclobenzaprine [Flexeril] 10 mg PO BID Allopurinol [Zyloprim] 300 mg PO DAILY Zolpidem Tartrate [Ambien] 10 mg PO HS Simvastatin [Zocor] 80 mg PO HS Lacosamide [Vimpat] 50 mg PO BID oxyCODONE HCL/ACETAMINOPHEN [Percocet 7.5-325 mg] 1 tab PO BID PRN PRN Reason: Pain Tamsulosin [Flomax] 0.4 mg PO DAILY Ranitidine HCl [Zantac] 150 mg PO HS Ergocalciferol (Vitamin D2) [Vitamin D2] 50,000 unit PO MO Lisinopril [Zestril] 2.5 mg PO DAILY Pregabalin [Lyrica] 300 mg PO BID Omeprazole 40 mg PO DAILY Metoclopramide [Reglan] 10 mg PO ACHS #30 tab Ondansetron Odt [Zofran Odt] 4 mg PO Q8HR PRN #9 tab PRN Reason: Nausea Simethicone 40 mg/0.6 ml Drops [Mylicon Drops] 40 mg PO PCHS PRN #30 ml PRN Reason: Gas Morphine Pain Pump 102.4 mg EPIDURAL DIRECTED Discharge Medication List Allopurinol [Zyloprim] 300 mg PO DAILY 06/04/16 [History] Cyclobenzaprine [Flexeril] 10 mg PO BID 06/04/16 [History] Escitalopram [Lexapro] 10 mg PO QAM 06/04/16 [History] Lacosamide [Vimpat] 50 mg PO BID 03/25/18 [History] Simvastatin [Zocor] 80 mg PO HS 03/25/18 [History] Zolpidem Tartrate [Ambien] 10 mg PO HS 03/25/18 [History] oxyCODONE HCL/ACETAMINOPHEN [Percocet 7.5-325 mg] 1 tab PO BID PRN 03/25/18 [History] Ergocalciferol (Vitamin D2) [Vitamin D2] 50,000 unit PO MO 06/19/18 [History] Ranitidine HCl [Zantac] 150 mg PO HS 06/19/18 [History] Tamsulosin [Flomax] 0.4 mg PO DAILY 06/19/18 [History] Lisinopril [Zestril] 2.5 mg PO DAILY 07/14/18 [History] Omeprazole 40 mg PO DAILY 07/17/18 [History] Pregabalin [Lyrica] 300 mg PO BID 07/17/18 [History] Metoclopramide [Reglan] 10 mg PO ACHS #30 tab 07/20/18 [Rx] Ondansetron Odt [Zofran Odt] 4 mg PO Q8HR PRN #9 tab 07/20/18 [Rx] Simethicone 40 mg/0.6 ml Drops [Mylicon Drops] 40 mg PO PCHS PRN #30 ml 07/20/18 [Rx] Morphine Pain Pump 102.4 mg EPIDURAL DIRECTED 08/26/18 [History] Omeprazole 40 mg PO DAILY #90 capsule. 08/28/18 [Rx] Sucralfate [Carafate] 1 gm PO BID #30 tablet 08/28/18 [Rx] Follow up Appointment(s)/Referral(s): [facility]ariatric Center,. [NON-STAFF] - 09/23/18 Patient Instructions/Handouts: Gastroesophageal Reflux Disease (DC), Corrosive Esophagitis (DC), Esophagitis (DC) Activity/Diet/Wound Care/Special Instructions: Liquid diet. Please take both omeprazole and Carafate for severe erosive esophagitis. Discharge Disposition: HOME SELF-CARE
[2018-08-28 14:56] VITALS: BP 108/67; PULSE 88
== END 2018-08-28 14:54 | disposition home or self-care (01) ==
LOC: ORWHC2ENDO 12:22
PROVIDERS: ATTEND Surgery Plastic and Reconstructive Surgery
DX: K29.50 Unspecified chronic gastritis without bleeding (principal); K22.10 Ulcer of esophagus without bleeding; K21.9 Gastro-esophageal reflux disease without esophagitis; N40.0 Benign prostatic hyperplasia without lower urinary tract symptoms; G57.93 Unspecified mononeuropathy of bilateral lower limbs; E78.5 Hyperlipidemia, unspecified; I10 Essential (primary) hypertension; M19.90 Unspecified osteoarthritis, unspecified site; Z86.14 Personal history of Methicillin resistant Staphylococcus aureus infection; Z98.84 Bariatric surgery status; Z96.643 Presence of artificial hip joint, bilateral; Z96.612 Presence of left artificial shoulder joint; Z87.891 Personal history of nicotine dependence; M10.9 Gout, unspecified; Z79.899 Other long term (current) drug therapy; Z90.3 Acquired absence of stomach [part of]
CPT/HCPCS: 88305; 43239; J2250; J3010; J2704

== ENCOUNTER → 2018-09-17 | Outpatient (CLI) | payer MEDICARE, OTHER ==
--- NOTE | 2018-09-17 14:46 | CT ---
EXAMINATION TYPE: CT chest wo con DATE OF EXAM: 09/17/2018 COMPARISON: 02/25/2018 and 12/10/2017 HISTORY: 53-year-old male Follow up scan per patient, abnormal findings of the lung vital. TECHNIQUE: Contiguous axial scanning of the chest without IV contrast. Coronal and sagittal reconstru ctions performed. CT DLP: 725 mGycm Automated exposure control for dose reduction was used. FINDINGS: The heart is normal size without pericardial effusion. Aorta normal caliber with conventional arch vessel branching anatomy. Some calcified left hilar lymph nodes compatible with prior granulomatous disease. Hilar and mediastinal structures limited on this noncontrast CT. The thoracic esophagus remains patulous with some layering fluid and mild circumferential wall thicke moreno of the distal esophagus. Suspect a small hiatal hernia with posterior changes of sleeve gastrect dewey. Some of the surgical material appears to be involved with the hiatal hernia.. Focal irregular nodular density measuring 1.5 cm peripheral left base. A couple additional peribronch ovascular nodularity is present extending proximally measuring 5 and 7 mm. Refer to axial images 39 t hrough 42. There are some scattered strandy scarring or atelectasis is present. No consolidation or p leural effusion. A 1.8 cm hypodense lesion anterior left liver lobe not clearly seen previously. Layering gravel in th e gallbladder. Spinal stimulator leads within the thoracic spinal canal. Punctate granulomas within t he spleen. Endplate spondylosis mid to lower thoracic spine. ACDF hardware. No osseous destructive process. IMPRESSION: 1. WHILE THE PREVIOUS LEFT LOWER LOBE NODULARITY HAS IMPROVED, THERE IS NEW NODULARITY AT THE POSTERI OR LEFT BASE MEASURING UP TO 1.5 CM. INFECTIOUS/INFLAMMATORY FOCI OR EARLY NEOPLASM ARE BOTH IN THE D IFFERENTIAL. 3 MONTH FOLLOW-UP RECOMMENDED TO REASSESS. 2. PREVIOUS INTERSTITIAL INFILTRATES IN THE RIGHT UPPER LOBE HAVE IMPROVED. 3. PATULOUS THORACIC ESOPHAGUS WITH SOME LAYERING FLUID AND PERSISTENT CIRCUMFERENTIAL THICKENING DIS ANT ESOPHAGUS and possible small hiatal hernia. Esophagitis or sequela of partial obstruction not exc luded. The patient's esophagrams from 07/20/2018 and 07/22/2018 are reviewed. Direct can also be perfor med if indicated.
== END | disposition home or self-care (01) ==
LOC: RADCTMAIN 13:32
PROVIDERS: ATTEND Internal Medicine Sleep Medicine
DX: R91.8 Other nonspecific abnormal finding of lung field (principal); K22.8 Other specified diseases of esophagus
CPT/HCPCS: 71250

== ENCOUNTER → 2018-12-02 | Outpatient (CLI) | payer MEDICARE, OTHER ==
[2018-12-02 15:17] VITALS: BP 120/74; PULSE 87; BMI 34.0
--- NOTE | 2018-12-02 15:36 | P.PN ---
Subjective Progress Note Date: 12/02/18 HPI: He reports dysphagia. He has lost 10 pounds in 4 months. He has troubles with swallowing and waking up. He reports poor sleep. ABDOMEN: Soft ASSESSMENT: 1. Dysphagia PLAN: 1. Referral for sleep specialist 2. Food texture of thickened nectar 3. Follow up in 3 weeks for diet 4. Second opinion encouraged 5. Bypass discussed. Objective - Vital Signs Vital signs: Vital Signs Temp Pulse 87 12/02/18 15:14 Resp BP 120/74 12/02/18 15:14 Pulse Ox Intake & Output 12/01/18 12/02/18 12/02/18 18:59 06:59 18:59 Weight 127.006 kg
== END | disposition home or self-care (01) ==
LOC: BARWHC3 14:21
PROVIDERS: ATTEND Surgery Plastic and Reconstructive Surgery
DX: R13.10 Dysphagia, unspecified (principal)
CPT/HCPCS: 99211

== ENCOUNTER → 2018-12-28 | Outpatient (CLI) | payer MEDICARE, OTHER ==
[2018-12-28 18:20] LABS: African American GFR (CKD) 98.5 (60.0-200.0); Albumin 3.7 g/dL (3.80-4.90); Albumin/Globulin Ratio 1.42 (1.60-3.17); Anion Gap 5.6 mmol/L (4.00-12.00); Calcium 8.8 mg/dL (8.7-10.3); Carbon Dioxide 31.4 mmol/L (21.6-31.8); Globulin 2.6 g/dL (1.6-3.3); Potassium 4.2 mmol/L (3.5-5.5); Total Bilirubin 0.4 mg/dL (0.2-1.2); Total Protein 6.3 g/dL (6.2-8.2)
== END | disposition home or self-care (01) ==
LOC: LABWHC1 12:20
PROVIDERS: ATTEND Psychiatry & Neurology Pain Medicine
DX: E55.9 Vitamin D deficiency, unspecified (principal); Z51.81 Encounter for therapeutic drug level monitoring
CPT/HCPCS: 36415; 80053; 82306

== ENCOUNTER → 2018-12-31 | Outpatient (CLI) | payer MEDICARE, OTHER ==
--- NOTE | 2018-12-31 22:19 | CONS ---
CONSULTATION DATE OF SERVICE: 12/31/2018 This patient is a 53-year-old gentleman who has been evaluated in the sleep center for possible obstructive sleep apnea-hypopnea syndrome. HISTORY OF PRESENT ILLNESS/SLEEP-WAKE EVALUATION: Patient's usual sleep schedule is from 10:30 p.m. until 9 or 10 a.m. No problems with falling asleep, although he has TV in bedroom. He sleeps on the side position with loud snoring, and he wakes up from sleep 4 times with nocturia. He has jerking of his hands and moving of the body. He had several episodes of falling out of bed. In the morning he wakes up tired, has difficulties paying attention, falling asleep during the day, worries about his sleep, has problems with memory, difficulties concentrating, irritability, depression, sexual dysfunction. Zanoni Sleepiness Scale is increased at 11. PAST MEDICAL HISTORY: Past medical history is positive for: 1. Hypertension. 2. Gout. 3. Pain in different parts of his body, including back, shoulder. PAST SURGICAL HISTORY: 1. Bilateral hip replacement. 2. Left shoulder surgery. 3. Gastric sleeve. 4. Pain pump. 5. Low back laminectomy. MEDICATIONS: 1. Flexeril. 2. Allopurinol. 3. Xanax. 4. Lyrica. 5. Simvastatin. 6. Ibuprofen. 7. Patient also is on a pain pump. REVIEW OF SYSTEMS: Multiple awakenings from sleep, swelling of the legs, difficulties walking, walking with a walker. He does feel his feet. SOCIAL HISTORY: Positive for smoking for about 25 pack/years; quit one year ago. Alcohol consumption occasional. FAMILY HISTORY: Hypertension, heart problems, hyperlipidemia, cancer, diabetes, acid reflux, ulcers, lung problems, sleep apnea. PHYSICAL EXAMINATION: GENERAL: A pleasant -[place] gentleman without distress. VITAL SIGNS: BP 115/69, HR 86, RR 16, height 6 feet 0 inches, weight 278 pounds, body mass index 37.7, temperature 98.2, oxygen saturation at room air 96%. HEENT: PERRLA, EOMI. Evaluation of oropharynx showed tongue protrudes midline. Low position of soft palate. Mallampati IV. NECK: Supple. No JVD. Thyroid is not palpable. Wide neck; 16-1/2 inches in circumference. LUNGS: Clear to percussion and to auscultation. Good air exchange. No wheezing or rhonchi. HEART: S1, S2 regular. No murmurs, gallops or rubs. ABDOMEN: Soft and nontender. Bowel sounds are present. No organomegaly. EXTREMITIES: No clubbing or cyanosis. Swelling of both legs 2+ bilaterally. No sensation in the feet. DRUM ATTENDANT: Awake, alert, and oriented X3. Cranial nerves 2 to 7 intact. There is no fasciculation or atrophy. noted. No focal deficits observed. IMPRESSION: 1. Loud snoring, multiple awakenings from sleep, low position of soft palate, nocturia, wide neck, sleepiness, Zanoni Sleepiness Scale of 11; obstructive sleep apnea-hypopnea syndrome. 2. The patient is on a pain pump. Differential diagnosis should include central sleep apnea. 3. Obesity; body mass index 37.7. 4. Hypertension. 5. Gout. 6. Episodes of anxiety. 7. Pain in shoulder. 8. Status post bilateral hip replacement. 9. Swelling of both legs; 2+ below the knee. 10.Decreasing and absence of sensation in the feet; possible peripheral neuropathy. 11.Status post gastric sleeve. 12.Status post low back laminectomy. 13.Pain pump. PLAN: 1. Polysomnography for evaluation of patient's breathing during sleep. 2. CPAP/BiPAP titration if sleep study confirms obstructive sleep apnea-hypopnea syndrome. 3. Preferable position during sleep on the side. 4. No driving if patient feels any sleepiness. 5. I will see patient for follow up visit to explain results of testing and following plan. Thank you very much for referring this patient for consultation. Sincerely, Jorge L Barnes MD, PhD, FAASM Diplomat of [employer] Physician of [facility] MMODL / IJN: [id number] /
== END | disposition home or self-care (01) ==
LOC: SLEEP 14:31
PROVIDERS: ATTEND Internal Medicine
DX: G47.33 Obstructive sleep apnea (adult) (pediatric) (principal); E66.9 Obesity, unspecified; I10 Essential (primary) hypertension; M10.9 Gout, unspecified; F41.9 Anxiety disorder, unspecified; M25.519 Pain in unspecified shoulder; M79.89 Other specified soft tissue disorders; R20.8 Other disturbances of skin sensation; Z87.891 Personal history of nicotine dependence; Z68.37 Body mass index [BMI] 37.0-37.9, adult; Z98.84 Bariatric surgery status; Z96.643 Presence of artificial hip joint, bilateral; Z97.8 Presence of other specified devices; Z98.890 Other specified postprocedural states; Z79.899 Other long term (current) drug therapy
CPT/HCPCS: 99211

== ENCOUNTER → 2019-01-06 | Outpatient (CLI) | payer MEDICARE, OTHER ==
[2019-01-06 15:11] VITALS: BP 117/71; PULSE 85; RESP 16; TEMP 97.9; BMI 33.5
--- NOTE | 2019-01-06 16:13 | P.PN ---
Subjective Progress Note Date: 01/06/19 DATE: 01/06/2019 CHIEF COMPLAINT: Complications from sleeve gastrectomy HISTORY OF PRESENT ILLNESS: The patient is a 53-year-old male status post hiatal hernia repair, 07/17/2018. He is 6 months out. He comes in with his and has history of completely ineffective esophageal dysmotility. His is at bedside and he often gulps his meals. He still takes antacid. He spits up his food often. He drinks mountain dew. He is losing more weight. He has lost over 200 pounds. His ideal body weight is 204 pounds. His initial weight was 481 pounds. He comes in 274 pounds from 279, 1 month ago. He has lost 5 pounds, 1 month ago. Previous BMI 58.7. Current BMI 33.5. Total weight loss 207 pounds. Percent excess weight loss of 75 %. He is 70 pounds overweight. PHYSICAL EXAM: VITAL SIGNS: Reviewed Vital Signs Temp 97.9 F 01/06/19 15:09 Pulse 85 01/06/19 15:09 Resp 16 01/06/19 15:09 BP 117/71 01/06/19 15:09 Pulse Ox CONSTITUTIONAL: Well developed and in no acute distress. EYES: Conjuctivae without sclera icterus. Extraocular movements grossly intact. HEAD, EARS, NOSE, THROAT: Moist buccal mucosa. Head is atraumatic, normocephalic. Hears conversational speech. No nasal drainage. NECK: Supple. No thyroidomegaly. RESPIRATORY: Non-labored respirations and equal bilateral excursions. CARDIOVASCULAR: Palpable 2+ radial pulses. ABDOMEN: Non-tender. Soft. No peritonitis. MUSCULOSKELETAL: No gross deformity of the lower extremities noted. No clubb ing. No cyanosis. SKIN: Good skin turgor. Well perfused. NEUROLOGIC: Cranial nerves I through XII grossly intact. No focal or lateralizing signs. PSYCH: Appropriate affect. Alert and oriented to person, place and time. ASSESSMENT: 1. Gastroesophageal reflux disease 2. Morbid obesity due to excess calories, BMI 58.7 to 33.5 3. Status post hiatal hernia repair 4. Complications from sleeve gastrectomy 5. Noncompliant to dietary guidelines 6. Iron deficiency anemia 7. Dysphagia 8. Esophageal dysmotility PLAN: 1. Recommend alter of foods with dysphagia 2. Referral to outside bariatric center for revision of sleeve to esophagojejunostomy versus gastric bypass. 3. Recommend swallow study and speech pathology for ineffective esophageal dysmotility. Objective - Vital Signs Vital signs: Vital Signs Temp 97.9 F 01/06/19 15:09 Pulse 85 01/06/19 15:09 Resp 16 01/06/19 15:09 BP 117/71 01/06/19 15:09 Pulse Ox Intake & Output 01/05/19 01/06/19 01/06/19 18:59 06:59 18:59 Weight 124.738 kg
== END | disposition home or self-care (01) ==
LOC: BARWHC3 14:29
PROVIDERS: ATTEND Surgery Plastic and Reconstructive Surgery
DX: K95.89 Other complications of other bariatric procedure (principal); K21.9 Gastro-esophageal reflux disease without esophagitis; E66.01 Morbid (severe) obesity due to excess calories; D50.9 Iron deficiency anemia, unspecified; K22.4 Dyskinesia of esophagus; Z68.33 Body mass index [BMI] 33.0-33.9, adult; Z90.3 Acquired absence of stomach [part of]; Z98.890 Other specified postprocedural states; Z91.19 Patient's noncompliance with other medical treatment and regimen
CPT/HCPCS: 99211

== ENCOUNTER → 2019-04-22 | Outpatient (CLI) | payer MEDICARE ==
--- NOTE | 2019-04-22 11:53 | FL ---
Modified barium swallow. HISTORY: Dysphagia. Modified barium swallow was performed with the department of speech pathology. The patient was prese nted with various consistencies of barium. There is no evidence for aspiration. Penetration noted with thin liquid barium. Full report is to evelyn ryan from the department of speech pathology. Impression: No evidence for aspiration. Mild transient penetration noted with thin liquid barium.
== END | disposition home or self-care (01) ==
LOC: RADFLMAIN 09:57
PROVIDERS: ATTEND Surgery Plastic and Reconstructive Surgery
DX: R10.13 Epigastric pain (principal)
CPT/HCPCS: 74230

== ENCOUNTER → 2019-04-22 | Outpatient (CLI) | payer MEDICARE, OTHER ==
--- NOTE | 2019-04-22 12:17 | US ---
EXAMINATION TYPE: US duplex aorta DATE OF EXAM: 04/22/2019 COMPARISON: NONE CLINICAL HISTORY: 54-year-old male Z13.6 Screening for Cardiovascular Disorders. TECHNIQUE: Multiple sonographic images of the abdominal aorta are obtained. FINDINGS: EXAM MEASUREMENTS: Abdominal Aorta: Proximal: 1.9cm Mid: 1.9 Distal: 1.5cm Bifurcation: Right: not seen, Left: 1.6cm The ladder operator notes: Partial visualization of proximal aorta, right iliac not seen due to overlying bowel gas. IMPRESSION: 1. Limited visualization of the proximal abdominal aorta and right common iliac artery. The left comm on iliac artery is borderline ectatic at 1.6 cm. 2. No visualized AAA.
== END | disposition home or self-care (01) ==
LOC: RADUSWWP 09:49
PROVIDERS: ATTEND Physician Assistant
DX: Z13.6 Encounter for screening for cardiovascular disorders (principal)
CPT/HCPCS: 74230; 93979

== ENCOUNTER → 2019-06-09 | Outpatient (CLI) | payer MEDICARE ==
--- NOTE | 2019-06-09 16:10 | P.PN ---
Subjective Progress Note Date: 06/09/19 DATE: 06/09/2019 CHIEF COMPLAINT: Complications from sleeve gastrectomy HISTORY OF PRESENT ILLNESS: The patient is a 54-year-old male status sleeve gastrectomy over 6 years ago. Since his procedure, he reports chronic aspirations including difficulty swallowing and severe gastroesophageal reflux disease. Separately, he has chronic pain and neuropathy of the bilateral lower extremities. He has over 200+ pound weight loss. He is not compliant with medications particularly in assess for persistent acid esophageal reflux disease. He has lost 30 pounds in 5 months. He has completed swallow study. He still reports eating foods such as wraps. His ideal body weight is 204 pounds. His initial weight was 481 pounds. He comes in 244 pounds from 274 pounds, 5 months ago. He has lost 31 pounds, 5 months. Previous BMI 58.7. Current BMI 29.7. Total weight loss 237 pounds. Percent excess weight loss of 86 %. He is 40 pounds overweight. PHYSICAL EXAM: VITAL SIGNS: Reviewed Vital Signs Temp 97.8 F 06/09/19 16:23 Pulse 81 06/09/19 16:23 Resp BP 119/72 06/09/19 16:23 Pulse Ox CONSTITUTIONAL: Well developed and in no acute distress. EYES: Conjuctivae without sclera icterus. Extraocular movements grossly intact. HEAD, EARS, NOSE, THROAT: Moist buccal mucosa. Head is atraumatic, normocephalic. Hears conversational speech. No nasal drainage. NECK: Supple. No thyroidomegaly. RESPIRATORY: Non-labored respirations and equal bilateral excursions. CARDIOVASCULAR: Palpable 2+ radial pulses. ABDOMEN: Non-tender. Soft. No peritonitis. MUSCULOSKELETAL: No gross deformity of the lower extremities noted. No clubbing. No cyanosis. SKIN: Good skin turgor. Well perfused. NEUROLOGIC: Cranial nerves I through XII grossly intact. No focal or lateral izing signs. PSYCH: Appropriate affect. Alert and oriented to person, place and time. STUDIES: Barium swallow report from speech pathologist confirms no aspiration. ASSESSMENT: 1. Gastroesophageal reflux disease 2. Morbid obesity due to excess calories, BMI 58.7 to 29.7 3. Dysphagia 4. Complications from sleeve gastrectomy 5. Noncompliant to dietary guidelines 6. Iron deficiency anemia 7. Esophageal dysmotility PLAN: 1. Recommend esophagram to further evaluate extent of dysphasia 2. Recommend full bariatric metabolic panel for nutritional needs 3. Follow up in 1 month Objective - Labs CBC & Chem 7: 06/09/19 17:12 06/09/19 17:12
[2019-06-09 17:44] LABS: HCT 45.1 % (39.0-53.0); HGB 13.6 gm/dL (13.0-17.5); Hypochromasia Marked; MCH 29.1 pg (25.0-35.0); MCHC 30.3 g/dL (31.0-37.0); MCV 96.1 fL (80.0-100.0); Mean Platelet Volume 9.3; Platelet Count 176 k/uL (150-450); RBC 4.69 m/uL (4.30-5.90); RDW 14.4 % (11.5-15.5); WBC 5.6 k/uL (3.8-10.6)
[2019-06-09 17:45] VITALS: BP 119/72; PULSE 81; TEMP 97.8; BMI 29.7
[2019-06-09 17:50] LABS: INR 1.1 (<1.2); Partial Thromboplastin Time 23.7 sec (22.0-30.0); Prothrombin Time 11.7 sec (9.0-12.0)
[2019-06-09 23:32] LABS: % Iron Saturation 15.24 (15.00-50.00); African American GFR (CKD) 97.8 (60.0-200.0); Albumin 4.2 g/dL (3.80-4.90); Albumin/Globulin Ratio 1.24 (1.60-3.17); Anion Gap 8.8 mmol/L (4.00-12.00); Calcium 9.3 mg/dL (8.7-10.3); Carbon Dioxide 34.2 mmol/L (21.6-31.8); Globulin 3.4 g/dL (1.6-3.3); Magnesium 1.6 mg/dL (1.5-2.4); Non-African American GFR(CKD) 84.4 (60.0-200.0); Phosphorus 3.3 mg/dL (2.4-5.1); Potassium 4.6 mmol/L (3.5-5.5); Total Bilirubin 0.6 mg/dL (0.3-1.2); Total Protein 7.6 g/dL (6.2-8.2)
[2019-06-09 23:39] LABS: Ferritin 121.2 ng/mL (22.0-322.0)
[2019-06-09 23:42] LABS: Folate, Serum 6.2 ng/mL
[2019-06-10 12:56] LABS: Zinc, Serum 63 ug/dL (60-130)
[2019-06-11 06:11] LABS: Vitamin A 35 ug/dL (38-106)
[2019-06-12 18:01] LABS: Selenium 140 mcg/L (63-160)
== END | disposition home or self-care (01) ==
LOC: BARWHC3 14:50
PROVIDERS: ATTEND Surgery Plastic and Reconstructive Surgery
DX: Z48.815 Encounter for surgical aftercare following surgery on the digestive system (principal); K21.9 Gastro-esophageal reflux disease without esophagitis; R13.10 Dysphagia, unspecified; D50.9 Iron deficiency anemia, unspecified; K22.4 Dyskinesia of esophagus; E66.01 Morbid (severe) obesity due to excess calories; Z68.29 Body mass index [BMI] 29.0-29.9, adult; E21.1 Secondary hyperparathyroidism, not elsewhere classified; K90.9 Intestinal malabsorption, unspecified; E55.9 Vitamin D deficiency, unspecified; K74.1 Hepatic sclerosis; N19 Unspecified kidney failure; K50.90 Crohn's disease, unspecified, without complications; Z91.19 Patient's noncompliance with other medical treatment and regimen
CPT/HCPCS: 84255; 84134; 80061; 80053; 82607; 82728; 82525; 82746; 83540; 83550; 83735; 84100; 84443; 84590; 84630; 85027; 85610; 85730; 82306; 83970; G0463; 99211

== ENCOUNTER 2019-07-01 11:50 | Inpatient (IN) | payer MEDICARE, OTHER ==
--- NOTE | 2019-07-01 12:01 | FL ---
EXAMINATION TYPE: FL barium swallow DATE OF EXAM: 07/01/2019 CLINICAL HISTORY: Dysphagia TECHNIQUE: A double contrast esophagram is performed utilizing air and barium. A total of 58 second s of fluoroscopic time was utilized during procedure 26 fluoroscopic images were saved. COMPARISON: None FINDINGS: There is abnormal motility of the esophagus with delayed propulsion through the distal esop hagus. High-grade stricture is seen at the distal esophagus with proximal dilatation. Small hiatal he rnia is also seen with high-grade stricture just distal to the hiatal hernia with only scant amount o f contrast seen extending into the gastric fundus after prolonged imaging. After second attempt of sw allowing contrast the patient developed nausea and vomiting and no further contrast was passed throug h the gastric sleeve. The esophagus mucosa appears irregular throughout. IMPRESSION: High-grade stricture at the distal esophagus and gastric fundus just distal to a small hi atal hernia in this patient with gastric sleeve. No contrast is seen extending through the gastric sl eeve indicating obstruction despite prolonged imaging. The exam induced nausea and vomiting secondar y to the obstruction and diffuse esophageal irregularity was also seen. Findings were relayed to Dr. Verduzco's office as Dr. Dumont was not in the office and the patient was sent to the ER.
--- NOTE | 2019-07-01 13:39 | ED ---
General Adult HPI - General Chief complaint: Recheck/Abnormal Lab/Rx Stated complaint: unable to swallow Time Seen by Provider: 07/01/19 11:55 Source: patient Mode of arrival: ambulatory Limitations: no limitations - History of Present Illness Initial comments: The patient is a 54-year-old male with past history of neuropathy, morbid obesity with Gastric sleeve presents emergency Department with inability to swallow. He states that he had egastric sleeve performed [address] Beal[address] One year later he did develop an esophageal stricture which were required balloon dilation. He is now a patient of Dr. Dumont's. States that over the past 2-3 weeks he has had inability to swallow any food or water. States he has not been holding on any medications. He followed up with her office and she sent him for a barium swallow. Patient has is imaging done this morning. He developed nausea and vomiting through the study and therefore was sent to the emergency room for further evaluation. Admits to pain in his midepigastric region. Denies hematemesis. No abdominal pain. No changes in his bowel or bladder habits. He has been taking Zofran at home for his symptoms however this has not alleviated his symptoms. Denies any fevers or chills. There are no alleviating, precipitating or modifying factors - Related Data Home Medications Medication Instructions Recorded Confirmed Allopurinol [Zyloprim] 300 mg PO DAILY 06/04/16 07/01/19 Cyclobenzaprine [Flexeril] 10 mg PO BID 06/04/16 07/01/19 Escitalopram [Lexapro] 10 mg PO QAM 06/04/16 07/01/19 Lacosamide [Vimpat] 50 mg PO BID 03/25/18 07/01/19 Simvastatin [Zocor] 80 mg PO HS 03/25/18 07/01/19 Zolpidem Tartrate [Ambien] 10 mg PO HS 03/25/18 07/01/19 Ergocalciferol (Vitamin D2) 50,000 unit PO MO 06/19/18 07/01/19 [Vitamin D2] Lisinopril [Zestril] 2.5 mg PO DAILY 07/14/18 07/01/19 Omeprazole 40 mg PO DAILY 07/17/18 07/01/19 Pregabalin [Lyrica] 300 mg PO BID 07/17/18 07/01/19 Morphine Pain Pump 102.4 mg EPIDURAL DIRECTED 08/26/18 07/01/19 Ibuprofen [Motrin] 800 mg PO TID PRN 07/01/19 07/01/19 Tamsulosin HCl [Flomax] 0.4 mg PO HS 07/01/19 07/01/19 oxyCODONE-APAP 7.5-325MG [Percocet 1 tab PO BID PRN 07/01/19 07/01/19 7.5-325 mg] Previous Rx's Medication Instructions Recorded Sucralfate [Carafate] 1 gm PO BID #30 tablet 08/28/18 Omeprazole 40 mg PO BID #60 cap 07/06/19 Sucralfate [Carafate] 1 gm PO BID #60 tablet 07/06/19 Allergies Allergy/AdvReac Type Severity Reaction Status Date / Time No Known Allergies Allergy Verified 07/01/19 12:26 Review of Systems ROS Statement: Those systems with pertinent positive or pertinent negative responses have been documented in the HPI. ROS Other: All systems not noted in ROS Statement are negative. Past Medical History Past Medical History: CVA/TIA, GERD/Reflux, Hypertension, Osteoarthritis (OA) Additional Past Medical History / Comment(s): hiatal hernia, gout, neuropathy marta legs and feet, chronic dysphagia despite multiple EGD with dilation (01/08/19 bariatric dept to schedule pt with speech pathologist per Dr. Dumont). History of Any Multi-Drug Resistant Organisms: MRSA Date of last positivie culture/infection: approx 10 yrs ago MDRO Source:: left hip Past Surgical History: Back Surgery, Bariatric Surgery, Joint Replacement, Orthopedic Surgery Additional Past Surgical History / Comment(s): PAIN PUMP IMPLANTED 07/17/18, GASTRIC SLEEVE, BILATERAL KNEE arthroscopy, BILATERAL HIP replacement, LEFT SHOU LDER replacement, LEFT ACHILES TENDON SX., RIGHT BIG TOE, echocardiolgram, spinal fusion Past Anesthesia/Blood Transfusion Reactions: No Reported Reaction Past Psychological History: No Psychological Hx Reported Smoking Status: Former smoker Past Alcohol Use History: None Reported Past Drug Use History: None Reported - Past Family History Father Family Medical History: Cancer Additional Family Medical History / Comment(s): lung Mother Family Medical History: Coronary Artery Disease (CAD), Hypertension General Exam Limitations: no limitations General appearance: alert, in no apparent distress Head exam: Present: atraumatic, normocephalic, normal inspection Eye exam: Present: normal appearance, PERRL, EOMI. Absent: scleral icterus, conjunctival injection, periorbital swelling ENT exam: Present: normal exam, mucous membranes moist Neck exam: Present: normal inspection. Absent: tenderness, meningismus, lymphadenopathy Respiratory exam: Present: normal lung sounds bilaterally. Absent: respiratory distress, wheezes, rales, rhonchi, stridor Cardiovascular Exam: Present: regular rate, normal rhythm, normal heart sounds. Absent: systolic murmur, diastolic murmur, rubs, gallop, clicks GI/Abdominal exam: Present: soft, normal bowel sounds. Absent: distended, tenderness, guarding, rebound, rigid Extremities exam: Present: normal inspection, full ROM, normal capillary refill. Absent: tenderness, pedal edema, joint swelling, calf tenderness Back exam: Present: normal inspection Neurological exam: Present: alert, oriented X3, CN II-XII intact Psychiatric exam: Present: normal affect, normal mood Skin exam: Present: warm, dry, intact, normal color. Absent: rash Course Vital Signs 07/01/19 07/01/19 07/01/19 11:55 13:56 16:00 Temperature 98.1 F Pulse Rate 89 81 Respiratory 20 18 18 Rate Blood Pressure 131/92 137/91 O2 Sat by Pulse 99 94 L Oximetry 07/01/19 16:30 Temperature 98.0 F Pulse Rate 95 Respiratory 18 Rate Blood Pressure 125/86 O2 Sat by Pulse 94 L Oximetry Medical Decision Making - Medical Decision Making Upon arrival the patient's placed into room 10. He is hooked to continuous pulse ox and cardiac monitoring. Patient is unable to tolerate his own saliva at this point. I did review his barium swallow report. It demonstrates high- grade structure at the distal esophagus and gastric fundus just distal to a small hiatal hernia. No contrast seen in standing through the gastric sleeve indicating obstruction despite prolonged imaging. Because of this I did obtain laboratory studies. CBC and CMP are unremarkable. I called and discussed the case with Dr. Verduzco who was accepting of the admission of the patient. He states that Dr. Dumont would not be available until Friday and he will not perform any surgical intervention. I discussed this with the patient and offered him to go to an outside facility for a second opinion and possible intervention. Patient refused stating that he would wait to see Dr. Dumont on Friday to see what procedure she may offer. Dr. Verduzco is notified of this. Bridging orders were placed and the patient is awaiting a bed on the floor - Lab Data Result diagrams: 07/01/19 13:30 07/06/19 07:01 Lab Results 07/01/19 07/01/19 07/02/19 Range/Units 13:30 13:30 12:30 WBC 5.4 (3.8-10.6) k/uL RBC 4.82 (4.30-5.90) m/uL Hgb 13.6 (13.0-17.5) gm/dL Hct 44.8 (39.0-53.0) % MCV 93.0 (80.0-100.0) fL MCH 28.2 (25.0-35.0) pg MCHC 30.3 L (31.0-37.0) g/dL RDW 14.8 (11.5-15.5) % Plt Count 167 (150-450) k/uL Neutrophils % 64 % Lymphocytes % 24 % Monocytes % 3 % Eosinophils % 6 % Basophils % 1 % Neutrophils # 3.5 (1.3-7.7) k/uL Lymphocytes # 1.3 (1.0-4.8) k/uL Monocytes # 0.2 (0-1.0) k/uL Eosinophils # 0.4 (0-0.7) k/uL Basophils # 0.0 (0-0.2) k/uL Hypochromasia Moderate Sodium 144 140 (137-145) mmol/L Potassium 3.8 3.9 (3.5-5.1) mmol/L Chloride 104 103 (98-107) mmol/L Carbon Dioxide 31 H 29 (22-30) mmol/L Anion Gap 9 8 mmol/L BUN 19 18 (9-20) mg/dL Creatinine 0.88 0.75 (0.66-1.25) mg/dL Est GFR (CKD-EPI)AfAm >90 >90 (>60 ml/min/1.73 sqM) Est GFR (CKD-EPI)NonAf >90 >90 (>60 ml/min/1.73 sqM) Glucose 74 97 (74-99) mg/dL Calcium 9.3 9.2 (8.4-10.2) mg/dL Ionized Calcium Jordan 5.1 (4.5-5.3) mg/dL Phosphorus 2.3 L (2.5-4.5) mg/dL Magnesium 1.6 (1.6-2.3) mg/dL Total Bilirubin 0.8 0.6 (0.2-1.3) mg/dL AST 22 20 (17-59) U/L ALT 10 9 (4-49) U/L Alkaline Phosphatase 113 108 (38-126) U/L Total Protein 7.6 7.6 (6.3-8.2) g/dL Albumin 3.8 3.8 (3.5-5.0) g/dL Triglycerides 60 (<150) mg/dL Lipase 122 (23-300) U/L Disposition Clinical Impression: Esophageal obstruction, Hiatal hernia, History of sleeve gastrectomy Disposition: ADMITTED IP TO THIS [facility] Condition: Stable Is patient prescribed a controlled substance at d/c from ED?: No Decision to Admit Reason: Admit from EC Decision Date: 07/01/19 Decision Time: 13:39
[2019-07-01 13:48] LABS: Basophils % (A) 1 %; Eosinophils # (A) 0.4 k/uL (0-0.7); Eosinophils % (A) 6 %; HCT 44.8 % (39.0-53.0); HGB 13.6 gm/dL (13.0-17.5); Hypochromasia Moderate; Lymphocytes # (A) 1.3 k/uL (1.0-4.8); Lymphocytes % (A) 24 %; MCH 28.2 pg (25.0-35.0); MCHC 30.3 g/dL (31.0-37.0); Mean Platelet Volume 9.3; Monocytes # (A) 0.2 k/uL (0-1.0); Monocytes % (A) 3 %; Neutrophils # (A) 3.5 k/uL (1.3-7.7); Neutrophils % (A) 64 %; Platelet Count 167 k/uL (150-450); RBC 4.82 m/uL (4.30-5.90); RDW 14.8 % (11.5-15.5); WBC 5.4 k/uL (3.8-10.6)
[2019-07-01] MEDS ORDERED: ONDANSETRON 4 MG/2 ML VIAL IVP PRN (14:05)
[2019-07-01] MEDS ORDERED: NALOXONE 0.4 MG/ML 1 ML VIAL IV PRN (14:05)
[2019-07-01] MEDS ORDERED: methylPREDNISolone SOD SUCCI 125 MG/2 ML VIAL IV STA (14:07)
[2019-07-01] MEDS ORDERED: MORPHINE EPIDURAL SCH (14:15)
[2019-07-01 14:20] LABS: ALT 10 U/L (4-49); AST 22 U/L (17-59); African American GFR (CKD) >90 (>60 ml/min/1.73 sqM); Albumin 3.8 g/dL (3.5-5.0); Alkaline Phosphatase 113 U/L (38-126); Anion Gap 9 mmol/L; Blood Urea Nitrogen 19 mg/dL (9-20); Calcium 9.3 mg/dL (8.4-10.2); Carbon Dioxide 31 mmol/L (22-30); Chloride 104 mmol/L (98-107); Glucose 74 mg/dL (74-99); Non-African American GFR(CKD) >90 (>60 ml/min/1.73 sqM); Potassium 3.8 mmol/L (3.5-5.1); Sodium 144 mmol/L (137-145); Total Bilirubin 0.8 mg/dL (0.2-1.3); Total Protein 7.6 g/dL (6.3-8.2)
[2019-07-01] MEDS: SODIUM CHLORIDE 0.9% 1,000 ML IV SCH (14:28)
[2019-07-01] MEDS: PANTOPRAZOLE 40 MG/10 ML VIAL IV SCH (14:28)
[2019-07-01] MEDS: MORPHINE MISCELLANE SCH (19:48)
[2019-07-01] MEDS: ATORVASTATIN 40 MG TAB PO SCH (19:54)
[2019-07-01] MEDS: TAMSULOSIN 0.4 MG CAP.ER.24H PO SCH (19:54)
[2019-07-01] MEDS: SUCRALFATE 1 GM TAB PO SCH (19:59)
[2019-07-01] MEDS: PREGABALIN 100 MG CAP PO SCH (22:31)
[2019-07-01] MEDS: LACOSAMIDE 50 MG TABLET PO SCH (23:34)
[2019-07-01] MEDS: ZOLPIDEM 5 MG TAB PO SCH (23:34)
[2019-07-01] MEDS: CYCLOBENZAPRINE 10 MG TAB PO SCH (23:34)
[2019-07-02] MEDS: SODIUM CHLORIDE 0.9% 1,000 ML IV SCH ×2 (02:53→17:16)
[2019-07-02] MEDS: PREGABALIN 100 MG CAP PO SCH ×2 (08:12→19:53)
[2019-07-02] MEDS: PANTOPRAZOLE 40 MG/10 ML VIAL IV SCH (08:12)
[2019-07-02] MEDS: CYCLOBENZAPRINE 10 MG TAB PO SCH ×2 (08:12→19:53)
[2019-07-02] MEDS: LISINOPRIL 2.5 MG TAB PO SCH (08:15)
[2019-07-02] MEDS: SUCRALFATE 1 GM TAB PO SCH ×2 (08:15→19:53)
[2019-07-02] MEDS: ESCITALOPRAM 10 MG TAB PO SCH (08:15)
[2019-07-02] MEDS: ALLOPURINOL 300 MG TAB PO SCH (08:15)
[2019-07-02] MEDS: LACOSAMIDE 50 MG TABLET PO SCH ×2 (08:15→19:54)
[2019-07-02] MEDS ORDERED: NON FORMULARY DRUG (Omeprazole [Omeprazole] 40 MG) PO SCH (09:00)
--- NOTE | 2019-07-02 10:41 | P.GSHP ---
<Virgie Iverson A - Last Filed: 07/02/19 10:41> History of Present Illness H&P Date: 07/02/19 Chief Complaint: Dysphasia CHIEF COMPLAINT: Dysphagia HISTORY OF PRESENT ILLNESS: 54-year-old with a history of sleeve gastrectomy performed by Dr. Zarate. Patient has been following with Dr. Dumont for past few years. He underwent robotic-assisted laparoscopic reduction and repair of incarcerated hiatal hernia, takedown of gastric gastric fistula, and lysis of adhesions with Dr. Dumont on July 17, 2018. He was found to have a severely distorted sleep gastrectomy with moderate torsion including angulation an abnormal contour at that time. Patient also underwent robotic assisted laparoscopic revision of paraesophageal hiatal hernia and lysis of adhesions on 07/23/[address] Dumont. Patient has underwent multiple EGDs. He had an EGD performed on 07/21/2018 with dilation. Most recent EGD was performed in August 2018 revealing severe erosive esophagitis with esophageal ulcer at distal esophagus. Patient reports he saw Dr. Dumont outpatient in May 2019 and she ordered an esophagram. Patient reports for the past 3-4 weeks he has been unable to keep any fluids down. He reports about 20 pound weight loss since that time. Patient had esophagram completed yesterday revealing high-grade stricture at the distal esophagus and gastric fundus just distal to a small hiatal hernia. No contrast is seen extending through the gastric sleeve indicating obstruction despite prolonged imaging. This examined his nausea and vomiting. Diffuse esophageal irregularity was also seen. PAST MEDICAL HISTORY: See list. PAST SURGICAL HISTORY: See list. SOCIAL HISTORY: No illicit drug use. REVIEW OF SYSTEMS: CONSTITUTIONAL: Denies fever or chills. HEENT: Denies blurred vision, vision changes, or eye pain. Denies hemoptysis CARDIOVASCULAR: Denies chest pain or pressure. RESPIRATORY: No shortness of breath. GASTROINTESTINAL: Refer to HPI for pertinent findings HEMATOLOGIC: Denies bleeding disorders. GENITOURINARY: Denies any blood in urine. SKIN: Denies pruitis. Denies rash. PHYSICAL EXAM: VITAL SIGNS: Reviewed. GENERAL: Well-developed in no acute distress. HEENT: No sclera icterus. Extraocular movements grossly intact. Moist buccal mucosa. Head is atraumatic, normocephalic. ABDOMEN: Soft. Nondistended. Nontender. NEUROLOGIC: Alert and oriented. Cranial nerves II through XII grossly intact. LABORATORY DATA: WBC 5.4. Hemoglobin 13.6. Platelet count 167. Sodium 144. Potassium 3.8. BUN 19. Creatinine 0.88. IMAGING: Esophagram completed yesterday revealing high-grade stricture at the distal esophagus and gastric fundus just distal to a small hiatal hernia. No contrast is seen extending through the gastric sleeve indicating obstruction despite prolonged imaging. Diffuse esophageal irregularity was also seen. ASSESSMENT: 1. Dysphagia, acute on chronic 2. Gastric obstruction secondary to high grade stricture at distal esophagus 3. History of sleeve gastrectomy 4. History of hiatal hernia repair 5. History of EGDs with dilation PLAN: 1. Sips of clear liquids as tolerated 2. Continue IV fluids 3. Consult chemical educator for PPN has patient has had decreased oral intake for 3 weeks with unintentional weight loss and inability to tolerate oral fluids this morning 4. Patient will be monitored over the by Dr. Verduzco who is covering for Dr. Dumont. Patient will be re-evaluated on Friday by Dr. Dumont. Nurse practitioner note has been reviewed by physician. Signing provider agrees with the documented findings, assessment, and plan of care. Past Medical History Past Medical History: CVA/TIA, GERD/Reflux, Hypertension, Osteoarthritis (OA) Additional Past Medical History / Comment(s): hiatal hernia, gout, neuropathy marta legs and feet, chronic dysphagia despite multiple EGD with dilation (01/08/19 bariatric dept to schedule pt with speech pathologist per Dr. Dumont). History of Any Multi-Drug Resistant Organisms: MRSA Date of last positivie culture/infection: approx 10 yrs ago MDRO Source:: left hip Past Surgical History: Back Surgery, Bariatric Surgery, Joint Replacement, Orthopedic Surgery Additional Past Surgical History / Comment(s): PAIN PUMP IMPLANTED 07/17/18, GASTRIC SLEEVE, BILATERAL KNEE arthroscopy, BILATERAL HIP replacement, LEFT SHOULDER replacement, LEFT ACHILES TENDON SX., RIGHT BIG TOE, echocardiolgram, spinal fusion Past Anesthesia/Blood Transfusion Reactions: No Reported Reaction Past Psychological History: No Psychological Hx Reported Smoking Status: Former smoker Past Alcohol Use History: None Reported Additional Past Alcohol Use History / Comment(s): quit smoking 2017, smoked since age 21, 1 PPD Past Drug Use History: None Reported - Past Family History Father Family Medical History: Cancer Additional Family Medical History / Comment(s): lung Mother Family Medical History: Coronary Artery Disease (CAD), Hypertension Medications and Allergies Home Medications Medication Instructions Recorded Confirmed Type Allopurinol [Zyloprim] 300 mg PO DAILY 06/04/16 07/01/19 History Cyclobenzaprine [Flexeril] 10 mg PO BID 06/04/16 07/01/19 History Escitalopram [Lexapro] 10 mg PO QAM 06/04/16 07/01/19 History Lacosamide [Vimpat] 50 mg PO BID 03/25/18 07/01/19 History Simvastatin [Zocor] 80 mg PO HS 03/25/18 07/01/19 History Zolpidem Tartrate [Ambien] 10 mg PO HS 03/25/18 07/01/19 History Ergocalciferol (Vitamin D2) 50,000 unit PO MO 06/19/18 07/01/19 History [Vitamin D2] Lisinopril [Zestril] 2.5 mg PO DAILY 07/14/18 07/01/19 History Omeprazole 40 mg PO DAILY 07/17/18 07/01/19 History Pregabalin [Lyrica] 300 mg PO BID 07/17/18 07/01/19 History Morphine Pain Pump 102.4 mg EPIDURAL DIRECTED 08/26/18 07/01/19 History Sucralfate [Carafate] 1 gm PO BID #30 tablet 08/28/18 07/01/19 Rx Ibuprofen [Motrin] 800 mg PO TID PRN 07/01/19 07/01/19 History Tamsulosin HCl [Flomax] 0.4 mg PO HS 07/01/19 07/01/19 History oxyCODONE-APAP 7.5-325MG [Percocet 1 tab PO BID PRN 07/01/19 07/01/19 History 7.5-325 mg] Allergies Allergy/AdvReac Type Severity Reaction Status Date / Time No Known Allergies Allergy Verified 07/01/19 12:26 Surgical - Exam Vital Signs Temp Pulse Resp BP Pulse Ox 98.1 F 89 20 131/92 99 07/01/19 11:55 07/01/19 11:55 07/01/19 11:55 07/01/19 11:55 07/01/19 11:55 Results - Labs 07/01/19 13:30 07/01/19 13:30 Abnormal Lab Results - Last 24 Hours (Table) 07/01/19 07/01/19 Range/Units 13:30 13:30 MCHC 30.3 L (31.0-37.0) g/dL Carbon Dioxide 31 H (22-30) mmol/L Diabetes panel 07/01/19 Range/Units 13:30 Sodium 144 (137-145) mmol/L Potassium 3.8 (3.5-5.1) mmol/L Chloride 104 (98-107) mmol/L Carbon Dioxide 31 H (22-30) mmol/L BUN 19 (9-20) mg/dL Creatinine 0.88 (0.66-1.25) mg/dL Glucose 74 (74-99) mg/dL Calcium 9.3 (8.4-10.2) mg/dL AST 22 (17-59) U/L ALT 10 (4-49) U/L Alkaline Phosphatase 113 (38-126) U/L Total Protein 7.6 (6.3-8.2) g/dL Albumin 3.8 (3.5-5.0) g/dL Calcium panel 07/01/19 Range/Units 13:30 Calcium 9.3 (8.4-10.2) mg/dL Albumin 3.8 (3.5-5.0) g/dL Pituitary panel 07/01/19 Range/Units 13:30 Sodium 144 (137-145) mmol/L Potassium 3.8 (3.5-5.1) mmol/L Chloride 104 (98-107) mmol/L Carbon Dioxide 31 H (22-30) mmol/L BUN 19 (9-20) mg/dL Creatinine 0.88 (0.66-1.25) mg/dL Glucose 74 (74-99) mg/dL Calcium 9.3 (8.4-10.2) mg/dL Adrenal panel 07/01/19 Range/Units 13:30 Sodium 144 (137-145) mmol/L Potassium 3.8 (3.5-5.1) mmol/L Chloride 104 (98-107) mmol/L Carbon Dioxide 31 H (22-30) mmol/L BUN 19 (9-20) mg/dL Creatinine 0.88 (0.66-1.25) mg/dL Glucose 74 (74-99) mg/dL Calcium 9.3 (8.4-10.2) mg/dL Total Bilirubin 0.8 (0.2-1.3) mg/dL AST 22 (17-59) U/L ALT 10 (4-49) U/L Alkaline Phosphatase 113 (38-126) U/L Total Protein 7.6 (6.3-8.2) g/dL Albumin 3.8 (3.5-5.0) g/dL <Joseph Verduzco - Last Filed: 07/02/19 15:32> History of Present Illness As above. Patient with recurrent stricture of what appears to represent the mid to proximal gastric sleeve. Complaining of neuropathic pain and reflux. Will start IV narcotics. Keep nothing by mouth except for sips. Agree with plans for PPN. We'll schedule for EGD with dilation for Dr. Dumont on Friday. Surgical - Exam Vital Signs Temp Pulse Resp BP Pulse Ox 98.1 F 89 20 131/92 99 07/01/19 11:55 07/01/19 11:55 07/01/19 11:55 07/01/19 11:55 07/01/19 11:55 Results - Labs 07/01/19 13:30 07/02/19 12:30 Abnormal Lab Results - Last 24 Hours (Table) 07/02/19 Range/Units 12:30 Phosphorus 2.3 L (2.5-4.5) mg/dL Diabetes panel 07/02/19 Range/Units 12:30 Sodium 140 (137-145) mmol/L Potassium 3.9 (3.5-5.1) mmol/L Chloride 103 (98-107) mmol/L Carbon Dioxide 29 (22-30) mmol/L BUN 18 (9-20) mg/dL Creatinine 0.75 (0.66-1.25) mg/dL Glucose 97 (74-99) mg/dL Calcium 9.2 (8.4-10.2) mg/dL AST 20 (17-59) U/L ALT 9 (4-49) U/L Alkaline Phosphatase 108 (38-126) U/L Total Protein 7.6 (6.3-8.2) g/dL Albumin 3.8 (3.5-5.0) g/dL Triglycerides 60 (<150) mg/dL Calcium panel 07/02/19 Range/Units 12:30 Calcium 9.2 (8.4-10.2) mg/dL Ionized Calcium Jordan 5.1 (4.5-5.3) mg/dL Phosphorus 2.3 L (2.5-4.5) mg/dL Albumin 3.8 (3.5-5.0) g/dL Pituitary panel 07/02/19 Range/Units 12:30 Sodium 140 (137-145) mmol/L Potassium 3.9 (3.5-5.1) mmol/L Chloride 103 (98-107) mmol/L Carbon Dioxide 29 (22-30) mmol/L BUN 18 (9-20) mg/dL Creatinine 0.75 (0.66-1.25) mg/dL Glucose 97 (74-99) mg/dL Calcium 9.2 (8.4-10.2) mg/dL Adrenal panel 07/02/19 Range/Units 12:30 Sodium 140 (137-145) mmol/L Potassium 3.9 (3.5-5.1) mmol/L Chloride 103 (98-107) mmol/L Carbon Dioxide 29 (22-30) mmol/L BUN 18 (9-20) mg/dL Creatinine 0.75 (0.66-1.25) mg/dL Glucose 97 (74-99) mg/dL Calcium 9.2 (8.4-10.2) mg/dL Total Bilirubin 0.6 (0.2-1.3) mg/dL AST 20 (17-59) U/L ALT 9 (4-49) U/L Alkaline Phosphatase 108 (38-126) U/L Total Protein 7.6 (6.3-8.2) g/dL Albumin 3.8 (3.5-5.0) g/dL
[2019-07-02] MEDS: MORPHINE MISCELLANE SCH (11:19)
[2019-07-02 12:52] LABS: Ionized Calcium 5.1 mg/dL (4.5-5.3)
[2019-07-02 12:56] LABS: ALT 9 U/L (4-49); AST 20 U/L (17-59); African American GFR (CKD) >90 (>60 ml/min/1.73 sqM); Albumin 3.8 g/dL (3.5-5.0); Alkaline Phosphatase 108 U/L (38-126); Anion Gap 8 mmol/L; Blood Urea Nitrogen 18 mg/dL (9-20); Calcium 9.2 mg/dL (8.4-10.2); Carbon Dioxide 29 mmol/L (22-30); Chloride 103 mmol/L (98-107); Glucose 97 mg/dL (74-99); Magnesium 1.6 mg/dL (1.6-2.3); Non-African American GFR(CKD) >90 (>60 ml/min/1.73 sqM); Phosphorus 2.3 mg/dL (2.5-4.5); Potassium 3.9 mmol/L (3.5-5.1); Sodium 140 mmol/L (137-145); Total Bilirubin 0.6 mg/dL (0.2-1.3); Total Protein 7.6 g/dL (6.3-8.2); Triglycerides 60 mg/dL (<150)
[2019-07-02 13:13] VITALS: BMI 28.0
[2019-07-02] MEDS: MAGNESIUM SULFATE-D5W PMX 1 GM in DEXTROSE/WATER 1 100ML.BAG IVPB SCH ×2 (13:47→14:50)
[2019-07-02] MEDS ORDERED: SODIUM PHOSPHATE 10 MMOL in SODIUM CHLORIDE 0.9% 250 ML IVPB ONE (14:00)
[2019-07-02] MEDS ORDERED: MVI, ADULT NO.4 WITH VIT K 10 ML, TRACE (CONC-1ML/DOSE) 1 ML in AMINO ACID 4.25%-D10W+L... IV ONE ×3 (14:00)
[2019-07-02] MEDS: HYDROmorphone 1 MG/ML 1 ML SYRINGE IVP PRN (16:09)
[2019-07-02] MEDS: FAT EMULSION 20% 250 ML in EMPTY BAG 1 BAG IV SCH (16:16)
[2019-07-02] MEDS: TAMSULOSIN 0.4 MG CAP.ER.24H PO SCH (19:53)
[2019-07-02] MEDS: ATORVASTATIN 40 MG TAB PO SCH (19:53)
[2019-07-02] MEDS: ZOLPIDEM 5 MG TAB PO SCH (19:53)
--- NOTE | 2019-07-02 22:54 | P.CONS ---
History of Present Illness - Reason for Consult Consult date: 07/02/19 Medical management Requesting physician: Alycia Dumont - Chief Complaint Difficulty swallowing - History of Present Illness Consultation: This is a very pleasant 54-year-old patient of Dr. Alexandrea Ang. We'll make stable medical conditions include hypertension, or strength redness, gout, chronic bilateral hip pain, bilateral peripheral neuropathy. Patient have a gastric sleeve the [address] Zarate. Patient in June 2018 didn't have a lysis conditions, laparoscopic reduction and repair of incarcerated paraesophageal hiatal hernia with a mesh and takedown of a gastric gastric fistula by Dr. Carbajal. At her baseline patient is to walk slowly because of peripheral neuropathy. In August 2018 patient had EGD done that showed severe erosive esophagitis with esophageal ulcer. Patient now for 3-4 weeks has been having progressively difficulty swallowing. Food is getting stuck including liquids. He was impossible for to get anything down. Patient is being admitted for the same. Review of systems: GEN.: Tired EYES: None HEENT: None NECK: None RESPIRATORY: None CARDIOVASCULAR: None GASTROINTESTINAL: As above GENITOURINARY: None MUSCULOSKELETAL: Some joint pains LYMPHATICS: None HEMATOLOGICAL: None PSYCHIATRY: None NEUROLOGICAL: Numbness peripherally Social history: Patient smoked one half a pack a day for more than 20 years. . No alcohol. Past medical history to include: GERD, hypertension, Ashley arthritis, hiatal hernia, gout, idiopathic peripheral neuropathy, sleeve gastrectomy, esophagitis, esophageal ulcer Physical examination: VITAL SIGNS: 98.1, H&H, 20, 131/92, 99% room air GENERAL: BMI 28, laying in bed awake. EYES: Pupils equal. Conjunctiva normal. HEENT: External appearance of nose and ears normal, oral cavity grossly normal. NECK: JVD not raised; masses not palpable. HEART: First and second heart sounds are normal; no edema. LUNGS: Respiratory rate normal; clear to auscultation. ABDOMEN: Soft, nontender, liver spleen not palpable, no masses palpable. PSYCH: Alert and oriented x3; mood and affect normal. NEUROLOGICAL: Cranial nerves grossly intact; no facial asymmetry, power and sensation grossly intact. LYMPHATICS: No lymph nodes palpable in the axilla and neck INVESTIGATIONS, reviewed in the clinical context: White count 5.4 hemoglobin 13.6 potassium 3.8 creatinine 0.88 Barium swallow-showed a severe esophageal stricture Assessment: -Progressive severe dysphagia to both solids and liquids from recurrent esophageal stricture with prior dilatation -Severe esophagitis and distal esophageal ulcer as per EGD in August 2018 -History of paraesophageal repair and history of sleeve gastrectomy -Essential hypertension -Primary osteoarthritis -Gout -Idiopathic peripheral neuropathy Plan: Patient be going down for a dilatation procedure today. Seen by Dr. Powell. Patient is nothing by mouth. Getting IV fluids. Care was discussed with the patient. Questions were answered. Thank you Dr. Powell Past Medical History Past Medical History: CVA/TIA, GERD/Reflux, Hypertension, Osteoarthritis (OA) Additional Past Medical History / Comment(s): hiatal hernia, gout, neuropathy marta legs and feet, chronic dysphagia despite multiple EGD with dilation (01/08/19 bariatric dept to schedule pt with speech pathologist per Dr. Dumont). History of Any Multi-Drug Resistant Organisms: MRSA Year Discovered:: approx 10 yrs ago MDRO Source:: left hip Past Surgical History: Back Surgery, Bariatric Surgery, Joint Replacement, Orthopedic Surgery Additional Past Surgical History / Comment(s): PAIN PUMP IMPLANTED 07/17/18, GASTRIC SLEEVE, BILATERAL KNEE arthroscopy, BILATERAL HIP replacement, LEFT SHOULDER replacement, LEFT ACHILES TENDON SX., RIGHT BIG TOE, echocardiolgram, spinal fusion Past Anesthesia/Blood Transfusion Reactions: No Reported Reaction Past Psychological History: No Psychological Hx Reported Smoking Status: Former smoker Past Alcohol Use History: None Reported Additional Past Alcohol Use History / Comment(s): quit smoking 2017, smoked since age 21, 1 PPD Past Drug Use History: None Reported - Past Family History Father Family Medical History: Cancer Additional Family Medical History / Comment(s): lung Mother Family Medical History: Coronary Artery Disease (CAD), Hypertension Medications and Allergies Home Medications Medication Instructions Recorded Confirmed Type Allopurinol [Zyloprim] 300 mg PO DAILY 06/04/16 07/01/19 History Cyclobenzaprine [Flexeril] 10 mg PO BID 06/04/16 07/01/19 History Escitalopram [Lexapro] 10 mg PO QAM 06/04/16 07/01/19 History Lacosamide [Vimpat] 50 mg PO BID 03/25/18 07/01/19 History Simvastatin [Zocor] 80 mg PO HS 03/25/18 07/01/19 History Zolpidem Tartrate [Ambien] 10 mg PO HS 03/25/18 07/01/19 History Ergocalciferol (Vitamin D2) 50,000 unit PO MO 06/19/18 07/01/19 History [Vitamin D2] Lisinopril [Zestril] 2.5 mg PO DAILY 07/14/18 07/01/19 History Omeprazole 40 mg PO DAILY 07/17/18 07/01/19 History Pregabalin [Lyrica] 300 mg PO BID 07/17/18 07/01/19 History Morphine Pain Pump 102.4 mg EPIDURAL DIRECTED 08/26/18 07/01/19 History Sucralfate [Carafate] 1 gm PO BID #30 tablet 08/28/18 07/01/19 Rx Ibuprofen [Motrin] 800 mg PO TID PRN 07/01/19 07/01/19 History Tamsulosin HCl [Flomax] 0.4 mg PO HS 07/01/19 07/01/19 History oxyCODONE-APAP 7.5-325MG [Percocet 1 tab PO BID PRN 07/01/19 07/01/19 History 7.5-325 mg] Allergies Allergy/AdvReac Type Severity Reaction Status Date / Time No Known Allergies Allergy Verified 07/01/19 12:26 Physical Exam Vitals: Vital Signs Temp Pulse Pulse Resp BP Pulse Ox 07/02/19 18:57 97.7 F 65 18 118/73 98 07/02/19 15:00 98.8 F 97 17 154/82 96 07/02/19 08:00 14 07/02/19 06:29 98.2 F 97 14 118/77 97 07/02/19 01:52 98.0 F 85 18 100/71 95 07/02/19 00:00 80 18 Intake and Output 07/02/19 07/02/19 07/02/19 06:59 14:59 22:59 Intake Total 240 525 Balance 240 525 Intake: Intake, IV Titration 525 Amount Sodium Chloride 0.9% 1, 525 000 ml @ 75 mls/hr IV . [id number] [facility] Rx#:[id number] Oral 240 Other: Voiding Method Urinal Urinal Weight 104.326 kg Results CBC & Chem 7: 07/01/19 13:30 07/02/19 12:30 Labs: Abnormal Lab Results - Last 24 Hours (Table) 07/02/19 Range/Units 12:30 Phosphorus 2.3 L (2.5-4.5) mg/dL
[2019-07-03] MEDS: 1: MVI, ADULT NO.4 WITH VIT K 10 ML, TRACE (CONC-1ML/DOSE) 1 ML in AMINO ACID 4.25%-D10W IV SCH ×9 (06:03→15:25)
[2019-07-03] MEDS: SODIUM CHLORIDE 0.9% 1,000 ML IV SCH (06:08)
[2019-07-03 07:15] LABS: African American GFR (CKD) >90 (>60 ml/min/1.73 sqM); Anion Gap 8 mmol/L; Blood Urea Nitrogen 16 mg/dL (9-20); Calcium 8.6 mg/dL (8.4-10.2); Carbon Dioxide 32 mmol/L (22-30); Chloride 101 mmol/L (98-107); Glucose 130 mg/dL (74-99); Magnesium 1.8 mg/dL (1.6-2.3); Non-African American GFR(CKD) >90 (>60 ml/min/1.73 sqM); Phosphorus 3.8 mg/dL (2.5-4.5); Sodium 141 mmol/L (137-145)
[2019-07-03] MEDS: HYDROmorphone 1 MG/ML 1 ML SYRINGE IVP PRN ×3 (07:38→20:14)
[2019-07-03 08:13] LABS: Glucose,Whole Blood 60 mg/dL (75-99)
[2019-07-03 08:15] LABS: Glucose,Whole Blood 87 mg/dL (75-99)
[2019-07-03] MEDS: PREGABALIN 100 MG CAP PO SCH ×2 (09:34→20:13)
[2019-07-03] MEDS: ESCITALOPRAM 10 MG TAB PO SCH (09:34)
[2019-07-03] MEDS: LISINOPRIL 2.5 MG TAB PO SCH (09:34)
[2019-07-03] MEDS: SUCRALFATE 1 GM TAB PO SCH ×2 (09:34→20:14)
[2019-07-03] MEDS: ALLOPURINOL 300 MG TAB PO SCH (09:34)
[2019-07-03] MEDS: LACOSAMIDE 50 MG TABLET PO SCH ×2 (09:34→20:14)
[2019-07-03] MEDS: CYCLOBENZAPRINE 10 MG TAB PO SCH ×2 (09:34→20:14)
[2019-07-03] MEDS: PANTOPRAZOLE 40 MG/10 ML VIAL IV SCH (09:35)
--- NOTE | 2019-07-03 10:01 | P.PN ---
Subjective Progress Note Date: 07/03/19 Principal diagnosis: Intractable vomiting Patient doing about the same. Still having issues with nausea and vomiting. Dysphagia unchanged. Pain is better controlled and his neuropathic legs. Objective - Vital Signs Vital signs: Vital Signs Temp 97.6 F 07/03/19 07:31 Pulse 83 07/03/19 07:31 Resp 16 07/03/19 07:31 BP 113/76 07/03/19 07:31 Pulse Ox 94 L 07/03/19 07:31 Intake & Output 07/02/19 07/03/19 07/03/19 18:59 06:59 18:59 Intake Total 525 Balance 525 Weight 104.326 kg Intake: Intake, IV Titration 525 Amount Sodium Chloride 0.9% 1, 525 000 ml @ 75 mls/hr IV . [id number] [facility] Rx#:[id number] Other: Voiding Method Urinal Urinal # Voids 1 - Exam Abdomen: Soft, nontender, nondistended - Labs CBC & Chem 7: 07/01/19 13:30 07/03/19 06:28 Labs: Abnormal Lab Results - Last 24 Hours (Table) 07/02/19 07/03/19 07/03/19 Range/Units 12:30 06:28 07:58 Carbon Dioxide 32 H (22-30) mmol/L Glucose 130 H (74-99) mg/dL POC Glucose (mg/dL) 60 L (75-99) mg/dL Phosphorus 2.3 L (2.5-4.5) mg/dL Assessment and Plan (1) Esophageal obstruction Narrative/Plan: Continue nothing by mouth. We'll add Decadron 4 mg every 6 hours for swelling. Patient scheduled for EGD with dilation Friday. Current Visit: Yes Status: Acute Code(s): K22.2 - ESOPHAGEAL OBSTRUCTION SNOMED Code(s): 862351488
[2019-07-03] MEDS: DEXAMETHASONE SOD PHOSPHATE 4 MG/ML 1 ML VIAL IV SCH ×3 (11:23→23:47)
[2019-07-03] MEDS: INSULIN ASPART (NovoLOG) 100 UNIT/ML VIAL SQ SCH ×2 (12:12→17:58)
[2019-07-03 12:14] LABS: Glucose,Whole Blood 64 mg/dL (75-99)
[2019-07-03 12:34] LABS: Glucose,Whole Blood 102 mg/dL (75-99)
[2019-07-03] MEDS: MORPHINE MISCELLANE SCH (15:25)
[2019-07-03] MEDS: MAGNESIUM SULFATE-D5W PMX 1 GM in DEXTROSE/WATER 1 100ML.BAG IVPB SCH ×2 (15:28→17:17)
[2019-07-03] MEDS: FAT EMULSION 20% 250 ML in EMPTY BAG 1 BAG IV SCH (15:29)
[2019-07-03 18:11] LABS: Glucose,Whole Blood 55 mg/dL (75-99)
[2019-07-03 18:30] LABS: Glucose,Whole Blood 109 mg/dL (75-99)
[2019-07-03] MEDS: ZOLPIDEM 5 MG TAB PO SCH (20:13)
[2019-07-03] MEDS: ATORVASTATIN 40 MG TAB PO SCH (20:14)
[2019-07-03] MEDS: TAMSULOSIN 0.4 MG CAP.ER.24H PO SCH (20:14)
--- NOTE | 2019-07-03 22:49 | P.PN ---
Progress Note - Text Progress Note Date: 07/03/19 - Chief Complaint Difficulty swallowing interval history: This is a very pleasant 54-year-old patient of Dr. Alexandrea Ang. We'll make stable medical conditions include hypertension, or strength redness, gout, chronic bilateral hip pain, bilateral peripheral neuropathy. Patient have a gastric sleeve the [address] Zarate. Patient in June 2018 didn't have a lysis conditions, laparoscopic reduction and repair of incarcerated paraesophageal hiatal hernia with a mesh and takedown of a gastric gastric fistula by Dr. Carbajal. At her baseline patient is to walk slowly because of peripheral neuropathy. In August 2018 patient had EGD done that showed severe erosive esophagitis with esophageal ulcer. Patient now for 3-4 weeks has been having progressively difficulty swallowing. Food is getting stuck including liquids. He was impossible for to get anything down. Patient is being admitted for the same. admitted with severe esophageal stricture causing severe dysphagia Today-laying in bed. Getting TPN lipids will have surgery on Friday morning. N o new issues. Review of systems: Was done for constitutional, cardiovascular, GI, pulmonary. relevant finding as above Active Medications Allopurinol (Zyloprim) 300 mg PO DAILY [facility] Last Admin: 07/03/19 09:34 Dose: 300 mg Documented by: Atorvastatin Calcium (Lipitor) 40 mg PO HS [facility] Last Admin: 07/03/19 20:14 Dose: 40 mg Documented by: Cyclobenzaprine HCl (Flexeril) 10 mg PO BID [facility] Last Admin: 07/03/19 20:14 Dose: 10 mg Documented by: Dexamethasone Sodium Phosphate (Decadron) 4 mg IV Q6HR [facility] Last Admin: 07/03/19 17:17 Dose: 4 mg Documented by: Escitalopram Oxalate (Lexapro) 10 mg PO QAM [facility] Last Admin: 07/03/19 09:34 Dose: 10 mg Documented by: Hydromorphone HCl (Dilaudid) 1 mg IVP Q3HR PRN PRN Reason: Pain Last Admin: 07/03/19 20:14 Dose: 1 mg Documented by: Sodium Chloride (Saline 0.9%) 1,000 mls @ 75 mls/hr IV .[id number] [facility] Last Admin: 07/03/19 06:08 Dose: 75 mls/hr Documented by: Parenteral Vitamin Supplement 10 ml/ Chromium/Copper/Manganese/Seleni/Zn 1 ml/Amino Ac/Electrol/Dextrose/Calcium 1,011 mls @ 115 mls/hr IV .BY DURATION [facility] Last Admin: 07/03/19 15:16 Dose: 115 mls/hr Documented by: Amino Ac/Electrol/Dextrose/Calcium (Clinimix E 4.25%-D10% Solution) 1,000 mls @ 115 mls/hr IV .BY DURATION [facility] Last Admin: 07/03/19 15:25 Dose: Not Given Documented by: Fat Emulsion Intravenous 250 (ml/ IV Solution) 250 mls @ 21 mls/hr IV Q24H [facility] Last Admin: 07/03/19 15:29 Dose: 21 mls/hr Documented by: Insulin Aspart (Novolog) 0 unit SQ Q6HR [facility]; Protocol Last Admin: 07/03/19 17:58 Dose: Not Given Documented by: Lacosamide (Vimpat) 50 mg PO BID [facility] Last Admin: 07/03/19 20:14 Dose: 50 mg Documented by: Lisinopril (Zestril) 2.5 mg PO DAILY [facility] Last Admin: 07/03/19 09:34 Dose: 2.5 mg Documented by: Naloxone HCl (Narcan) 0.2 mg IV Q2M PRN PRN Reason: Opioid Reversal Non-Formulary Medication (Morphine Pain Pump) 102.4 mg MISCELLANE DIRECTED [facility] Last Admin: 07/03/19 15:25 Dose: Not Given Documented by: Ondansetron HCl (Zofran) 4 mg IVP Q8HR PRN PRN Reason: Nausea And Vomiting Pantoprazole Sodium (Protonix) 40 mg IV DAILY [facility] Last Admin: 07/03/19 09:35 Dose: 40 mg Documented by: Pregabalin (Lyrica) 300 mg PO BID [facility] Last Admin: 07/03/19 20:13 Dose: 300 mg Documented by: Sucralfate (Carafate) 1 gm PO BID [facility] Last Admin: 07/03/19 20:14 Dose: 1 gm Documented by: Tamsulosin HCl (Flomax) 0.4 mg PO [facility] Last Admin: 07/03/19 20:14 Dose: 0.4 mg Documented by: Zolpidem Tartrate (Ambien) 10 mg PO HS [facility] Last Admin: 07/03/19 20:13 Dose: 10 mg Documented by: Physical examination: vitals-99, 76, 16, 142/88, 90% room air GENERAL: BMI 28, laying in bed awake. EYES: Pupils equal. Conjunctiva normal. HEENT: External appearance of nose and ears normal, oral cavity grossly normal. NECK: JVD not raised; masses not palpable. HEART: First and second heart sounds are normal; no edema. LUNGS: Respiratory rate normal; clear to auscultation. ABDOMEN: Soft, nontender, liver spleen not palpable, no masses palpable. PSYCH: Alert and oriented x3; mood and affect normal. INVESTIGATIONS, reviewed in the clinical context: Glucose 87, 64, 102 White count 5.4 hemoglobin 13.6 potassium 3.8 creatinine 0.88 Barium swallow-showed a severe esophageal stricture Assessment: -Hyperglycemia -Progressive severe dysphagia to both solids and liquids from recurrent esophageal stricture with prior dilatation, pending surgery and one-day -Severe esophagitis and distal esophageal ulcer as per EGD in August 2018 -History of paraesophageal repair and history of sleeve gastrectomy -Essential hypertension -Primary osteoarthritis -Gout -Idiopathic peripheral neuropathy Plan: -TPN and Lipids will started today.did tell the nurse to inform pharmacy to ad just the bags based on hypoglycemia. follow electrolytes. Thank you Dr. Powell
[2019-07-04 00:59] LABS: Glucose,Whole Blood 85 mg/dL (75-99)
[2019-07-04] MEDS: INSULIN ASPART (NovoLOG) 100 UNIT/ML VIAL SQ SCH ×4 (01:13→19:08)
[2019-07-04] MEDS: 1: MVI, ADULT NO.4 WITH VIT K 10 ML, TRACE (CONC-1ML/DOSE) 1 ML in AMINO ACID 4.25%-D10W IV SCH ×9 (02:16→15:11)
[2019-07-04 06:31] LABS: Glucose,Whole Blood 129 mg/dL (75-99)
[2019-07-04] MEDS: DEXAMETHASONE SOD PHOSPHATE 4 MG/ML 1 ML VIAL IV SCH ×3 (06:54→17:51)
[2019-07-04] MEDS: HYDROmorphone 1 MG/ML 1 ML SYRINGE IVP PRN ×3 (07:00→21:50)
[2019-07-04] MEDS: SODIUM CHLORIDE 0.9% 1,000 ML IV SCH ×2 (08:08→10:50)
[2019-07-04] MEDS: PREGABALIN 100 MG CAP PO SCH ×2 (08:48→20:33)
[2019-07-04] MEDS: CYCLOBENZAPRINE 10 MG TAB PO SCH ×2 (08:48→20:32)
[2019-07-04] MEDS: ALLOPURINOL 300 MG TAB PO SCH (08:48)
[2019-07-04] MEDS: LISINOPRIL 2.5 MG TAB PO SCH (08:48)
[2019-07-04] MEDS: SUCRALFATE 1 GM TAB PO SCH ×2 (08:48→20:32)
[2019-07-04] MEDS: LACOSAMIDE 50 MG TABLET PO SCH ×2 (08:48→20:32)
[2019-07-04] MEDS: ESCITALOPRAM 10 MG TAB PO SCH (08:49)
[2019-07-04] MEDS: PANTOPRAZOLE 40 MG/10 ML VIAL IV SCH (08:49)
[2019-07-04 08:57] LABS: ALT 9 U/L (4-49); AST 17 U/L (17-59); African American GFR (CKD) >90 (>60 ml/min/1.73 sqM); Albumin 3.3 g/dL (3.5-5.0); Alkaline Phosphatase 87 U/L (38-126); Anion Gap 7 mmol/L; Blood Urea Nitrogen 16 mg/dL (9-20); Calcium 8.8 mg/dL (8.4-10.2); Carbon Dioxide 29 mmol/L (22-30); Chloride 103 mmol/L (98-107); Glucose 150 mg/dL (74-99); Magnesium 1.9 mg/dL (1.6-2.3); Non-African American GFR(CKD) >90 (>60 ml/min/1.73 sqM); Phosphorus 2.9 mg/dL (2.5-4.5); Sodium 139 mmol/L (137-145); Total Bilirubin 0.4 mg/dL (0.2-1.3); Total Protein 6.8 g/dL (6.3-8.2)
--- NOTE | 2019-07-04 10:10 | P.PN ---
Subjective Progress Note Date: 07/04/19 Principal diagnosis: Intractable vomiting Patient did better last night. Only 2 episodes of vomiting since yesterday. Pain is improved as well. His midline fell out. PPN still going. Objective - Vital Signs Vital signs: Vital Signs Temp 97.6 F 07/04/19 07:00 Pulse 60 07/04/19 07:00 Resp 16 07/04/19 07:00 BP 112/71 07/04/19 07:00 Pulse Ox 97 07/04/19 07:00 Intake & Output 07/03/19 07/04/19 07/04/19 18:59 06:59 18:59 Intake Total 1611 1311 Balance 1611 1311 Intake: IV 600 300 Sodium Chloride 0.9% 1, 600 300 000 ml @ 75 mls/hr IV . [id number] [facility] Rx#:[id number] Intake, IV Titration 1011 1011 Amount Mvi, Adult No.4 with Vit 1011 1011 K 10 ml Trace (Conc-1Ml/ Dose) 1 ml In Amino Acid 4.25%-D10w+Lytes*E* 1,000 ml @ 115 mls/hr IV .BY DURATION [facility] Rx#: [id number] Other: Voiding Method Toilet Toilet Toilet Urinal Urinal Urinal - Exam Abdomen: Soft, nontender, nondistended - Labs CBC & Chem 7: 07/01/19 13:30 07/04/19 08:13 Labs: Abnormal Lab Results - Last 24 Hours (Table) 07/03/19 07/03/19 07/03/19 Range/Units 11:50 12:14 17:50 Creatinine (0.66-1.25) mg/dL Glucose (74-99) mg/dL POC Glucose (mg/dL) 64 L 102 H 55 L (75-99) mg/dL Albumin (3.5-5.0) g/dL 07/03/19 07/04/19 07/04/19 Range/Units 18:12 06:28 08:13 Creatinine 0.60 L (0.66-1.25) mg/dL Glucose 150 H (74-99) mg/dL POC Glucose (mg/dL) 109 H 129 H (75-99) mg/dL Albumin 3.3 L (3.5-5.0) g/dL Assessment and Plan (1) Esophageal obstruction Narrative/Plan: Continue nothing by mouth. Continue IV Decadron. EGD with dilation scheduled for tomorrow. Current Visit: Yes Status: Acute Code(s): K22.2 - ESOPHAGEAL OBSTRUCTION SNOMED Code(s): 530749840
[2019-07-04 11:49] LABS: Glucose,Whole Blood 77 mg/dL (75-99)
[2019-07-04] MEDS: FAT EMULSION 20% 250 ML in EMPTY BAG 1 BAG IV SCH (15:20)
[2019-07-04] MEDS: MORPHINE MISCELLANE SCH (15:31)
[2019-07-04 18:23] LABS: Glucose,Whole Blood 229 mg/dL (75-99)
[2019-07-04] MEDS: ZOLPIDEM 5 MG TAB PO SCH (20:32)
[2019-07-04] MEDS: ATORVASTATIN 40 MG TAB PO SCH (20:32)
[2019-07-04] MEDS: TAMSULOSIN 0.4 MG CAP.ER.24H PO SCH (20:33)
--- NOTE | 2019-07-04 21:31 | P.PN ---
Progress Note - Text Progress Note Date: 07/04/19 - Chief Complaint Difficulty swallowing interval history: This is a very pleasant 54-year-old patient of Dr. Alexandrea Ang. We'll make stable medical conditions include hypertension, or strength redness, gout, chronic bilateral hip pain, bilateral peripheral neuropathy. Patient have a gastric sleeve the [address] Zarate. Patient in June 2018 didn't have a lysis conditions, laparoscopic reduction and repair of incarcerated paraesophageal hiatal hernia with a mesh and takedown of a gastric gastric fistula by Dr. Carbajal. At her baseline patient is to walk slowly because of peripheral neuropathy. In August 2018 patient had EGD done that showed severe erosive esophagitis with esophageal ulcer. Patient now for 3-4 weeks has been having progressively difficulty swallowing. Food is getting stuck including liquids. He was impossible for to get anything down. Patient is being admitted for the same. admitted with severe esophageal stricture causing severe dysphagia Today-no new issues. Pending surgery. Getting TPN and lipids. Review of systems: Was done for constitutional, cardiovascular, GI, pulmonary. relevant finding as above Active Medications Allopurinol (Zyloprim) 300 mg PO DAILY [facility] Last Admin: 07/04/19 08:48 Dose: 300 mg Documented by: Atorvastatin Calcium (Lipitor) 40 mg PO HS [facility] Last Admin: 07/04/19 20:32 Dose: 40 mg Documented by: Cyclobenzaprine HCl (Flexeril) 10 mg PO BID [facility] Last Admin: 07/04/19 20:32 Dose: 10 mg Documented by: Dexamethasone Sodium Phosphate (Decadron) 4 mg IV Q6HR [facility] Last Admin: 07/04/19 17:51 Dose: 4 mg Documented by: Escitalopram Oxalate (Lexapro) 10 mg PO QAM [facility] Last Admin: 07/04/19 08:49 Dose: 10 mg Documented by: Hydromorphone HCl (Dilaudid) 1 mg IVP Q3HR PRN PRN Reason: Pain Last Admin: 07/04/19 15:19 Dose: 1 mg Documented by: Sodium Chloride (Saline 0.9%) 1,000 mls @ 75 mls/hr IV .[id number] [facility] Last Admin: 07/04/19 10:50 Dose: Not Given Documented by: Fat Emulsion Intravenous 250 (ml/ IV Solution) 250 mls @ 21 mls/hr IV Q24H [facility] Last Admin: 07/04/19 15:20 Dose: 21 mls/hr Documented by: Parenteral Vitamin Supplement 10 ml/ Chromium/Copper/Manganese/Seleni/Zn 1 ml/Amino Ac/Electrol/Dextrose/Calcium 1,011 mls @ 115 mls/hr IV .BY DURATION [facility] Amino Ac/Electrol/Dextrose/Calcium (Clinimix E 4.25%-D10% Solution) 1,000 mls @ 115 mls/hr IV .BY DURATION [facility] Last Admin: 07/04/19 15:11 Dose: 115 mls/hr Documented by: Insulin Aspart (Novolog) 0 unit SQ Q6HR [facility]; Protocol Last Admin: 07/04/19 19:08 Dose: Not Given Documented by: Lacosamide (Vimpat) 50 mg PO BID [facility] Last Admin: 07/04/19 20:32 Dose: 50 mg Documented by: Lisinopril (Zestril) 2.5 mg PO DAILY [facility] Last Admin: 07/04/19 08:48 Dose: 2.5 mg Documented by: Naloxone HCl (Narcan) 0.2 mg IV Q2M PRN PRN Reason: Opioid Reversal Non-Formulary Medication (Morphine Pain Pump) 102.4 mg MISCELLANE DIRECTED [facility] Last Admin: 07/04/19 15:31 Dose: Not Given Documented by: Ondansetron HCl (Zofran) 4 mg IVP Q8HR PRN PRN Reason: Nausea And Vomiting Pantoprazole Sodium (Protonix) 40 mg IV DAILY [facility] Last Admin: 07/04/19 08:49 Dose: 40 mg Documented by: Pregabalin (Lyrica) 300 mg PO BID [facility] Last Admin: 07/04/19 20:33 Dose: 300 mg Documented by: Sucralfate (Carafate) 1 gm PO BID [facility] Last Admin: 07/04/19 20:32 Dose: 1 gm Documented by: Tamsulosin HCl (Flomax) 0.4 mg PO [facility] Last Admin: 07/04/19 20:33 Dose: 0.4 mg Documented by: Zolpidem Tartrate (Ambien) 10 mg PO HS [facility] Last Admin: 07/04/19 20:32 Dose: 10 mg Documented by: Physical examination: vitals-97.6, 60, 16, 11 2/71, 97% room air GENERAL: Laying bed, comfortable. EYES: Pupils equal. Conjunctiva normal. HEENT: External appearance of nose and ears normal, oral cavity grossly normal. NECK: JVD not raised; masses not palpable. HEART: First and second heart sounds are normal; no edema. LUNGS: Respiratory rate normal; clear to auscultation. ABDOMEN: Soft, nontender, liver spleen not palpable, no masses palpable. PSYCH: Alert and oriented x3; mood and affect normal. INVESTIGATIONS, reviewed in the clinical context: Potassium 4 creatinine 0.6 Accu-Cheks 77, 229 Previous testing White count 5.4 hemoglobin 13.6 potassium 3.8 creatinine 0.88 Barium swallow-showed a severe esophageal stricture Assessment: -Hypoglycemia, from decreased oral intake, improving -Progressive severe dysphagia to both solids and liquids from recurrent esophageal stricture with prior dilatation, pending surgery and one-day -Severe esophagitis and distal esophageal ulcer as per EGD in August 2018 -History of paraesophageal repair and history of sleeve gastrectomy -Essential hypertension -Primary osteoarthritis -Gout -Idiopathic peripheral neuropathy Plan: Continue current medication treatment plan. Awaiting surgery on Friday by Dr. Carbajal Thank you Dr. Powell
[2019-07-05] MEDS: DEXAMETHASONE SOD PHOSPHATE 4 MG/ML 1 ML VIAL IV SCH ×5 (00:05→23:46)
[2019-07-05 00:10] LABS: Glucose,Whole Blood 76 mg/dL (75-99)
[2019-07-05] MEDS: INSULIN ASPART (NovoLOG) 100 UNIT/ML VIAL SQ SCH ×4 (00:28→18:32)
[2019-07-05] MEDS: 1: MVI, ADULT NO.4 WITH VIT K 10 ML, TRACE (CONC-1ML/DOSE) 1 ML in AMINO ACID 4.25%-D10W IV SCH ×6 (01:36→15:49)
[2019-07-05 05:58] LABS: Glucose,Whole Blood 121 mg/dL (75-99)
[2019-07-05 08:56] LABS: African American GFR (CKD) >90 (>60 ml/min/1.73 sqM); Anion Gap 8 mmol/L; Blood Urea Nitrogen 18 mg/dL (9-20); Carbon Dioxide 29 mmol/L (22-30); Chloride 103 mmol/L (98-107); Glucose 101 mg/dL (74-99); Magnesium 1.9 mg/dL (1.6-2.3); Non-African American GFR(CKD) >90 (>60 ml/min/1.73 sqM); Phosphorus 3.4 mg/dL (2.5-4.5); Sodium 140 mmol/L (137-145)
[2019-07-05] MEDS: SODIUM CHLORIDE 0.9% 1,000 ML IV SCH ×2 (08:56→16:02)
[2019-07-05] MEDS: MAGNESIUM SULFATE-D5W PMX 1 GM in DEXTROSE/WATER 1 100ML.BAG IVPB SCH (08:57)
[2019-07-05 09:00] LABS: Potassium 5.4 mmol/L (3.5-5.1)
[2019-07-05] MEDS: PANTOPRAZOLE 40 MG/10 ML VIAL IV SCH (09:05)
[2019-07-05] MEDS: PREGABALIN 100 MG CAP PO SCH ×2 (10:43→21:52)
[2019-07-05] MEDS: SUCRALFATE 1 GM TAB PO SCH ×2 (10:43→18:32)
[2019-07-05] MEDS: LISINOPRIL 2.5 MG TAB PO SCH ×2 (10:43→16:01)
[2019-07-05] MEDS: CYCLOBENZAPRINE 10 MG TAB PO SCH ×2 (10:43→21:53)
[2019-07-05] MEDS: LACOSAMIDE 50 MG TABLET PO SCH ×2 (10:43→21:53)
[2019-07-05] MEDS: ALLOPURINOL 300 MG TAB PO SCH ×2 (10:43→16:01)
[2019-07-05] MEDS: ESCITALOPRAM 10 MG TAB PO SCH ×2 (10:43→16:02)
[2019-07-05] MEDS: 1: MVI, ADULT NO.4 WITH VIT K 10 ML, TRACE (CONC-1ML/DOSE) 1 ML, SODIUM ACETATE 30 MEQ, IV SCH ×12 (11:21→22:24)
[2019-07-05 11:51] LABS: Glucose,Whole Blood 96 mg/dL (75-99)
[2019-07-05] MEDS ORDERED: IV FLUID CONTINUATION 500 ML IV ONE (13:12)
[2019-07-05] MEDS ORDERED: PROPOFOL 10 MG/ML 20 ML VIAL IV ONE (13:17)
--- NOTE | 2019-07-05 13:51 | P.PCN ---
Date of Procedure: 07/05/19 Description of Procedure: PREOPERATIVE DIAGNOSIS: Abnormal esophagogram with obstruction Esophageal obstruction Intractable nausea vomiting Dysphagia Gastroesophageal reflux disease Esophageal dysmotility POSTOPERATIVE DIAGNOSIS: Abnormal esophagogram with obstruction Esophageal obstruction Intractable nausea vomiting Dysphagia Gastroesophageal reflux disease Esophageal dysmotility Severe erosive esophagitis with esophageal ulcer at distal esophagus OPERATION: Esophagogastroduodenoscopy with 11 mm balloon dilation Esophagogastroduodenoscopy with cold forceps biopsies along the stomach SURGEON: Alycia Dumont MD ANESTHESIA: MAC. INDICATIONS: The patient is a 54-year-old male who presents with acute esophageal obstruction including intractable nausea and vomiting. Esophagogram confirmed esophageal obstruction.. Benefits and risks of the procedure were described. Informed consent was obtained. DESCRIPTION: The patient was brought into the endoscopy suite and laid in the left lateral decubitus position. An Olympus gastroscope was passed along the posterior oropharynx down to the distal esophagus was severe erosive esophagitis including chronic ulceration and obstruction at the distal esophagus. The mid to proximal esophagus was patulous and moderately dilated. Severe erosive esophagitis LA grade C was found for 6 cm segment. The esophagus was highly tortuous. The scope could not pass beyond the stricture of the esophagus. A [employer] balloon dilator of 10-12 mm, dilation to 11 mm achieved, was placed and dilated beyond 2 minutes. The scope was passed through a tortuous esophagus and tortuous sleeve gastrectomy. Biopsies were obtained of the duodenum including antrum and distal esophageal ulcer using cold forceps. The scope was passed to the third portion of the duodenum. The stomach was desufflated. The patient tolerated the procedure well. FINDINGS: Severecorkscrewing sleeve gastrectomy. Distal esophagus was severe erosive esophagitis including chronic ulceration distal esophagus dilated using 10-12 mm balloon, dilation to 11 mm achieved Severe erosive esophagitis LA grade C was found for 6 cm segment. Tortuous and severely dilated mid proximal esophagus No duodenal ulcers Chronic gastritis. Esophageal dysmotility RECOMMENDATIONS: Recommend vigorous treatment for esophageal ulcer including Carafate 3 times daily, Zantac and omeprazole Recommend evaluation for esophagojejunostomy for persistent esophageal ulcer, esophageal obstruction and intraesophageal reflux May start liquid diet
[2019-07-05] MEDS: FAT EMULSION 20% 250 ML in EMPTY BAG 1 BAG IV SCH (16:01)
[2019-07-05] MEDS: MORPHINE MISCELLANE SCH (16:02)
[2019-07-05] MEDS: HYDROmorphone 1 MG/ML 1 ML SYRINGE IVP PRN ×2 (16:10→21:51)
[2019-07-05 16:54] LABS: Glucose,Whole Blood 62 mg/dL (75-99)
[2019-07-05] MEDS: PANTOPRAZOLE 40 MG/10 ML VIAL IVP SCH (21:52)
[2019-07-05] MEDS: TAMSULOSIN 0.4 MG CAP.ER.24H PO SCH (21:53)
[2019-07-05] MEDS: ATORVASTATIN 40 MG TAB PO SCH (21:53)
[2019-07-05] MEDS: RANITIDINE SYRUP 150 MG/10 ML CUP PO SCH (21:53)
[2019-07-05] MEDS: ZOLPIDEM 5 MG TAB PO SCH (21:53)
--- NOTE | 2019-07-05 23:25 | P.PN ---
Progress Note - Text Progress Note Date: 07/05/19 - Chief Complaint Difficulty swallowing interval history: This is a very pleasant 54-year-old patient of Dr. Alexandrea Ang. We'll make stable medical conditions include hypertension, or strength redness, gout, chronic bilateral hip pain, bilateral peripheral neuropathy. Patient have a gastric sleeve the [address] Zarate. Patient in June 2018 didn't have a lysis conditions, laparoscopic reduction and repair of incarcerated paraesophageal hiatal hernia with a mesh and takedown of a gastric gastric fistula by Dr. Carbajal. At her baseline patient is to walk slowly because of peripheral neuropathy. In August 2018 patient had EGD done that showed severe erosive esophagitis with esophageal ulcer. Patient now for 3-4 weeks has been having progressively difficulty swallowing. Food is getting stuck including liquids. He was impossible for to get anything down. Patient is being admitted for the same. admitted with severe esophageal stricture causing severe dysphagia Today-went down for EGD today. Balloon dilatation was carried out with the dila tor of 10-12 mm. After 11 mm was achieved. Decided to start on clear liquids Review of systems: Was done for constitutional, cardiovascular, GI, pulmonary. relevant finding as above Active Medications Allopurinol (Zyloprim) 300 mg PO DAILY [facility] Last Admin: 07/05/19 16:01 Dose: 300 mg Documented by: Atorvastatin Calcium (Lipitor) 40 mg PO HS [facility] Last Admin: 07/05/19 21:53 Dose: 40 mg Documented by: Cyclobenzaprine HCl (Flexeril) 10 mg PO BID [facility] Last Admin: 07/05/19 21:53 Dose: 10 mg Documented by: Dexamethasone Sodium Phosphate (Decadron) 4 mg IV Q6HR [facility] Last Admin: 07/05/19 18:32 Dose: 4 mg Documented by: Escitalopram Oxalate (Lexapro) 10 mg PO QAM [facility] Last Admin: 07/05/19 16:02 Dose: 10 mg Documented by: Hydromorphone HCl (Dilaudid) 1 mg IVP Q3HR PRN PRN Reason: Pain Last Admin: 07/05/19 21:51 Dose: 1 mg Documented by: Sodium Chloride (Saline 0.9%) 1,000 mls @ 75 mls/hr IV .[id number] [facility] Last Admin: 07/05/19 16:02 Dose: 75 mls/hr Documented by: Fat Emulsion Intravenous 250 (ml/ IV Solution) 250 mls @ 21 mls/hr IV Q24H [facility] Last Admin: 07/05/19 16:01 Dose: 21 mls/hr Documented by: Parenteral Vitamin Supplement 10 ml/ Chromium/Copper/Manganese/Seleni/Zn 1 ml/Sodium Acetate 30 meq/ Calcium Gluconate 1 gm/ Magnesium Sulfate 1 gm/ Amino Acids/Dextrose 1,038 mls @ 115 mls/hr IV .BY DURATION [facility] Sodium Acetate 30 meq/ Calcium Gluconate 1 gm/ Magnesium Sulfate 1 gm/ Amino Acids/Dextrose 1,027 mls @ 115 mls/hr IV .BY DURATION [facility] Last Admin: 07/05/19 22:24 Dose: 115 mls/hr Documented by: Insulin Aspart (Novolog) 0 unit SQ Q6HR [facility]; Protocol Last Admin: 07/05/19 18:32 Dose: Not Given Documented by: Lacosamide (Vimpat) 50 mg PO BID [facility] Last Admin: 07/05/19 21:53 Dose: 50 mg Documented by: Lisinopril (Zestril) 2.5 mg PO DAILY [facility] Last Admin: 07/05/19 16:01 Dose: 2.5 mg Documented by: Naloxone HCl (Narcan) 0.2 mg IV Q2M PRN PRN Reason: Opioid Reversal Non-Formulary Medication (Morphine Pain Pump) 102.4 mg MISCELLANE DIRECTED [facility] Last Admin: 07/05/19 16:02 Dose: Not Given Documented by: Ondansetron HCl (Zofran) 4 mg IVP Q8HR PRN PRN Reason: Nausea And Vomiting Pantoprazole Sodium (Protonix) 40 mg IVP BID [facility] Last Admin: 07/05/19 21:52 Dose: 40 mg Documented by: Pregabalin (Lyrica) 300 mg PO BID [facility] Last Admin: 07/05/19 21:52 Dose: 300 mg Documented by: Ranitidine HCl (Zantac Syrup) 150 mg PO BID [facility] Last Admin: 07/05/19 21:53 Dose: 150 mg Documented by: Sucralfate (Carafate) 1 gm PO AC-TID [facility] Last Admin: 07/05/19 18:32 Dose: 1 gm Documented by: Tamsulosin HCl (Flomax) 0.4 mg PO HS [facility] Last Admin: 07/05/19 21:53 Dose: 0.4 mg Documented by: Zolpidem Tartrate (Ambien) 10 mg PO HS [facility] Last Admin: 07/05/19 21:53 Dose: 10 mg Documented by: Physical examination: vitals-98.2, 67, 16, 134/86, 98% room air GENERAL: Propped up, comfortable EYES: Pupils equal. Conjunctiva normal. HEENT: External appearance of nose and ears normal, oral cavity grossly normal. NECK: JVD not raised; masses not palpable. HEART: First and second heart sounds are normal; no edema. LUNGS: Respiratory rate normal; clear to auscultation. ABDOMEN: Soft, nontender, liver spleen not palpable, no masses palpable. PSYCH: Alert and oriented x3; mood and affect normal. INVESTIGATIONS, reviewed in the clinical context: Potassium 5.4 creatinine 0.62 Previous testing White count 5.4 hemoglobin 13.6 potassium 3.8 creatinine 0.88 Barium swallow-showed a severe esophageal stricture Assessment: -Hypoglycemia, from decreased oral intake, improving -Progressive severe dysphagia to both solids and liquids from recurrent esophageal stricture with prior dilatation, status post being dilated up to 11 mm. -Severe esophagitis and distal esophageal ulcer as per EGD . -History of paraesophageal repair and history of sleeve gastrectomy -Essential hypertension -Primary osteoarthritis -Gout -Idiopathic peripheral neuropathy Plan: Patient started a clear liquid diet. Depending on how the healing occurs to me. Plan for esophago-jejunostomy. That is bypass in the sleeve gastrectomy. Care was discussed with the patient. Thank you Dr. Carbajal
[2019-07-06 00:44] LABS: Glucose,Whole Blood 124 mg/dL (75-99)
[2019-07-06] MEDS: INSULIN ASPART (NovoLOG) 100 UNIT/ML VIAL SQ SCH ×2 (00:50→08:56)
[2019-07-06] MEDS: DEXAMETHASONE SOD PHOSPHATE 4 MG/ML 1 ML VIAL IV SCH (06:05)
[2019-07-06 06:39] LABS: Glucose,Whole Blood 112 mg/dL (75-99)
[2019-07-06 08:06] LABS: African American GFR (CKD) >90 (>60 ml/min/1.73 sqM); Anion Gap 7 mmol/L; Blood Urea Nitrogen 20 mg/dL (9-20); Carbon Dioxide 33 mmol/L (22-30); Chloride 99 mmol/L (98-107); Glucose 105 mg/dL (74-99); Magnesium 1.9 mg/dL (1.6-2.3); Non-African American GFR(CKD) >90 (>60 ml/min/1.73 sqM); Phosphorus 2.5 mg/dL (2.5-4.5); Potassium 4.5 mmol/L (3.5-5.1); Sodium 139 mmol/L (137-145)
[2019-07-06 08:12] VITALS: BP 114/77; PULSE 76; RESP 17; TEMP 98.3
[2019-07-06] MEDS: PANTOPRAZOLE 40 MG/10 ML VIAL IVP SCH (08:54)
[2019-07-06] MEDS: 1: MVI, ADULT NO.4 WITH VIT K 10 ML, TRACE (CONC-1ML/DOSE) 1 ML, SODIUM ACETATE 30 MEQ, IV SCH ×12 (08:54→09:02)
[2019-07-06] MEDS: RANITIDINE SYRUP 150 MG/10 ML CUP PO SCH (08:54)
[2019-07-06] MEDS: LACOSAMIDE 50 MG TABLET PO SCH (08:55)
[2019-07-06] MEDS: ESCITALOPRAM 10 MG TAB PO SCH (08:55)
[2019-07-06] MEDS: CYCLOBENZAPRINE 10 MG TAB PO SCH (08:55)
[2019-07-06] MEDS: PREGABALIN 100 MG CAP PO SCH (08:55)
[2019-07-06] MEDS: LISINOPRIL 2.5 MG TAB PO SCH (08:55)
[2019-07-06] MEDS: ALLOPURINOL 300 MG TAB PO SCH (08:56)
[2019-07-06] MEDS: SUCRALFATE 1 GM TAB PO SCH ×2 (08:56→12:37)
[2019-07-06] MEDS: SODIUM CHLORIDE 0.9% 1,000 ML IV SCH (08:57)
[2019-07-06 11:41] LABS: Glucose,Whole Blood 96 mg/dL (75-99)
--- NOTE | 2019-07-06 14:36 | P.DS ---
Providers Date of admission: 07/02/19 15:17 Expected date of discharge: 07/06/19 Attending physician: Alycia Dumont Consults: 07/02/19 10:28 Consult Physician Routine Consulting Provider: Chavez Pedraza Consult Reason/Comments: medical management Do you want consulting provider notified?: Yes Primary care physician: [facility] Course: 54-year-old with a history of sleeve gastrectomy performed by Dr. Zarate. Patient has been following with Dr. Dumont for past few years. He underwent robotic-assisted laparoscopic reduction and repair of incarcerated hiatal hernia, takedown of gastric gastric fistula, and lysis of adhesions with Dr. Dumont on July 17, 2018. He was found to have a severely distorted sleep gastrectomy with moderate torsion including angulation an abnormal contour at that time. Patient also underwent robotic assisted laparoscopic revision of paraesophageal hiatal hernia and lysis of adhesions on 07/23/[address] Dumont. Patient has underwent multiple EGDs. He had an EGD performed on 07/21/2018 with dilation. Most recent EGD was performed in August 2018 revealing severe erosive esophagitis with esophageal ulcer at distal esophagus. Patient reports he saw Dr. Dumont outpatient in May 2019 and she ordered an esophagram. Patient reports for the past 3-4 weeks he has been unable to keep any fluids down. He reports about 20 pound weight loss since that time. Patient had esophagram completed yesterday revealing high-grade stricture at the distal esophagus and gastric fundus just distal to a small hiatal hernia. No contrast is seen extending through the gastric sleeve indicating obstruction despite prolonged imaging. Diffuse esophageal irregularity was also seen. Patient was evaluated by Dr. Dumont. Patient underwent EGD with Dr. Dumont on 07/05/2019. Patient had dilation of esophagus performed. Patient was also found to have severe erosive esophagitis with esophageal ulcer at the distal esophagus. Patient was prescribed Carafate and Protonix twice a day. Patient was started on a clear liquid diet post procedure and is tolerating well. He is stable for discharge home today. He is to follow up with Dr. Dumont outpatient. Please see EMR for further hospital course details. Discharge Diagnosis: 1. Dysphagia, acute on chronic 2. Gastric obstruction secondary to high grade stricture at distal esophagus 3. History of sleeve gastrectomy 4. History of hiatal hernia repair 5. History of EGDs with dilation 6. Severe erosive esophagitis with esophageal ulcer at distal esophagus Nurse practitioner note has been reviewed by physician. Signing provider agrees with the documented findings, assessment, and plan of care. Patient Condition at Discharge: Stable Plan - Discharge Summary New Discharge Prescriptions: New Sucralfate [Carafate] 1 gm PO BID #60 tablet Omeprazole 40 mg PO BID #60 cap No Action Escitalopram [Lexapro] 10 mg PO QAM Cyclobenzaprine [Flexeril] 10 mg PO BID Allopurinol [Zyloprim] 300 mg PO DAILY Zolpidem Tartrate [Ambien] 10 mg PO HS Simvastatin [Zocor] 80 mg PO HS Lacosamide [Vimpat] 50 mg PO BID Ergocalciferol (Vitamin D2) [Vitamin D2] 50,000 unit PO MO Lisinopril [Zestril] 2.5 mg PO DAILY Pregabalin [Lyrica] 300 mg PO BID Omeprazole 40 mg PO DAILY Morphine Pain Pump 102.4 mg EPIDURAL DIRECTED Sucralfate [Carafate] 1 gm PO BID #30 tablet oxyCODONE-APAP 7.5-325MG [Percocet 7.5-325 mg] 1 tab PO BID PRN PRN Reason: Pain Tamsulosin HCl [Flomax] 0.4 mg PO HS Ibuprofen [Motrin] 800 mg PO TID PRN PRN Reason: Pain Discharge Medication List Allopurinol [Zyloprim] 300 mg PO DAILY 06/04/16 [History] Cyclobenzaprine [Flexeril] 10 mg PO BID 06/04/16 [History] Escitalopram [Lexapro] 10 mg PO QAM 06/04/16 [History] Lacosamide [Vimpat] 50 mg PO BID 03/25/18 [History] Simvastatin [Zocor] 80 mg PO HS 03/25/18 [History] Zolpidem Tartrate [Ambien] 10 mg PO HS 03/25/18 [History] Ergocalciferol (Vitamin D2) [Vitamin D2] 50,000 unit PO MO 06/19/18 [History] Lisinopril [Zestril] 2.5 mg PO DAILY 07/14/18 [History] Omeprazole 40 mg PO DAILY 07/17/18 [History] Pregabalin [Lyrica] 300 mg PO BID 07/17/18 [History] Morphine Pain Pump 102.4 mg EPIDURAL DIRECTED 08/26/18 [History] Sucralfate [Carafate] 1 gm PO BID #30 tablet 08/28/18 [Rx] Ibuprofen [Motrin] 800 mg PO TID PRN 07/01/19 [History] Tamsulosin HCl [Flomax] 0.4 mg PO HS 07/01/19 [History] oxyCODONE-APAP 7.5-325MG [Percocet 7.5-325 mg] 1 tab PO BID PRN 07/01/19 [History] Omeprazole 40 mg PO BID #60 cap 07/06/19 [Rx] Sucralfate [Carafate] 1 gm PO BID #60 tablet 07/06/19 [Rx] Follow up Appointment(s)/Referral(s): Alycia Dumont MD [STAFF PHYSICIAN] - 07/14/19 4:00 pm Eric Ang DO [Primary Care Provider] - 07/13/19 1:15 pm Patient Instructions/Handouts: Upper Endoscopy (DC), Esophageal Dilation (DC) Discharge Disposition: HOME SELF-CARE
== END 2019-07-06 13:20 | disposition home or self-care (01) | DRG 392 ==
LOC: EC 11:50 → 4SSUR 14:05 → OBSVTOIN 07-02 15:17
PROVIDERS: ADMIT Surgery Plastic and Reconstructive Surgery; ATTEND Surgery Plastic and Reconstructive Surgery
PROC: 0DB78ZX Excision of Stomach, Pylorus, Via Natural or Artificial Opening Endoscopic, Diagnostic (ICD-10-PCS; 2019-07-05)
PROC: 0DB38ZX Excision of Lower Esophagus, Via Natural or Artificial Opening Endoscopic, Diagnostic (ICD-10-PCS; 2019-07-05)
PROC: 0D738ZZ Dilation of Lower Esophagus, Via Natural or Artificial Opening Endoscopic (ICD-10-PCS; principal; 2019-07-05 07:30)
PROC: 0DB98ZX Excision of Duodenum, Via Natural or Artificial Opening Endoscopic, Diagnostic (ICD-10-PCS; 2019-07-05 07:30)
DX: K22.2 Esophageal obstruction (principal); K22.10 Ulcer of esophagus without bleeding; K22.4 Dyskinesia of esophagus; K21.0 Gastro-esophageal reflux disease with esophagitis; E16.2 Hypoglycemia, unspecified; G60.9 Hereditary and idiopathic neuropathy, unspecified; G89.29 Other chronic pain; I10 Essential (primary) hypertension; K44.9 Diaphragmatic hernia without obstruction or gangrene; M10.9 Gout, unspecified; M19.91 Primary osteoarthritis, unspecified site; R13.10 Dysphagia, unspecified; Z79.899 Other long term (current) drug therapy; Z82.49 Family history of ischemic heart disease and other diseases of the circulatory system; Z86.73 Personal history of transient ischemic attack (TIA), and cerebral infarction without residual deficits; Z87.19 Personal history of other diseases of the digestive system; Z87.891 Personal history of nicotine dependence; Z96.612 Presence of left artificial shoulder joint; Z96.643 Presence of artificial hip joint, bilateral; Z98.1 Arthrodesis status; Z98.84 Bariatric surgery status; Z80.1 Family history of malignant neoplasm of trachea, bronchus and lung; K29.70 Gastritis, unspecified, without bleeding
CPT/HCPCS: 36410; 36415; 43239; 43249; 74220; 76937; 80048; 80053; 82330; 83690; 83735; 84100; 84478; 85025; 88305; 88312; 96374; 96375; 99285

== ENCOUNTER → 2019-07-14 | Outpatient (CLI) | payer MEDICARE, OTHER ==
[2019-07-14 16:14] VITALS: BP 106/68; PULSE 80; RESP 16; TEMP 98.1; BMI 29.8
--- NOTE | 2019-07-14 16:56 | P.PN ---
Subjective Progress Note Date: 07/14/19 DATE: 07/14/2019 CHIEF COMPLAINT: Complications from sleeve gastrectomy HISTORY OF PRESENT ILLNESS: The patient is a 54-year-old male status sleeve gastrectomy over 6 years ago, 2013. He comes in with troubles with swallowing and chronic esophageal ulcers. He has chronic problems since his sleeve inclu ding chronic aspirations, difficulty swallowing and severe gastroesophageal reflux disease. His ideal body weight is 204 pounds. His initial weight was 481 pounds. He comes in 244 pounds unchanged from 1 month ago. Previous BMI 58.7 down to 29.8. Total weight loss 237 pounds. Percent excess weight loss of 85 %. He is 40 pounds overweight. PHYSICAL EXAM: VITAL SIGNS: Weight 111.13 kg, Height 6 foot 4 inches, BMI 29.8 Vital Signs Temp 98.1 F 07/14/19 16:11 Pulse 80 07/14/19 16:11 Resp 16 07/14/19 16:11 BP 106/68 07/14/19 16:11 Pulse Ox CONSTITUTIONAL: Well developed and in no acute distress. EYES: Conjuctivae without sclera icterus. Extraocular movements grossly intact. HEAD, EARS, NOSE, THROAT: Moist buccal mucosa. Head is atraumatic, normocephal ic. Hears conversational speech. No nasal drainage. NECK: Supple. No thyroidomegaly. RESPIRATORY: Non-labored respirations and equal bilateral excursions. CARDIOVASCULAR: Palpable 2+ radial pulses. ABDOMEN: Non-tender. Soft. No peritonitis. MUSCULOSKELETAL: No gross deformity of the lower extremities noted. No clubbing. No cyanosis. SKIN: Good skin turgor. Well perfused. NEUROLOGIC: Cranial nerves I through XII grossly intact. No focal or lateralizing signs. PSYCH: Appropriate affect. Alert and oriented to person, place and time. ASSESSMENT: 1. Gastroesophageal reflux disease 2. Morbid obesity due to excess calories, BMI 58.7 to 29.8 3. Dysphagia 4. Complications from sleeve gastrectomy 5. Noncompliant to dietary guidelines 6. Iron deficiency anemia 7. Esophageal dysmotility 8. Chronic aspirations 9. Esophageal ulcers PLAN: 1. Recommend evaluation for conversion of sleeve gastrectomy to bypass. However, for presence of esophageal dysmotility with tonny esophagus and chronic ulcers, may also benefit esophageal resection. Objective - Vital Signs Vital signs: Vital Signs Temp 98.1 F 07/14/19 16:11 Pulse 80 07/14/19 16:11 Resp 16 07/14/19 16:11 BP 106/68 07/14/19 16:11 Pulse Ox Intake & Output 07/13/19 07/14/19 07/14/19 18:59 06:59 18:59 Weight 111.13 kg
== END | disposition home or self-care (01) ==
LOC: BARWHC3 15:38
PROVIDERS: ATTEND Surgery Plastic and Reconstructive Surgery
DX: E66.01 Morbid (severe) obesity due to excess calories (principal); K21.9 Gastro-esophageal reflux disease without esophagitis; K95.89 Other complications of other bariatric procedure; R13.10 Dysphagia, unspecified; D50.9 Iron deficiency anemia, unspecified; K22.4 Dyskinesia of esophagus; K22.10 Ulcer of esophagus without bleeding; Z68.29 Body mass index [BMI] 29.0-29.9, adult; J69.0 Pneumonitis due to inhalation of food and vomit; Z91.19 Patient's noncompliance with other medical treatment and regimen
CPT/HCPCS: 99211

== ENCOUNTER → 2019-07-19 | Outpatient (CLI) | payer MEDICARE, OTHER ==
[2019-07-19 10:26] VITALS: BP 100/59; PULSE 84; RESP 16; TEMP 97.6
[2019-07-19] MEDS: SODIUM CHLORIDE 0.9% 1,000 ML IV SCH ×2 (10:31→11:35)
== END | disposition home or self-care (01) ==
LOC: PROCWHC3 10:13
PROVIDERS: ATTEND Surgery Plastic and Reconstructive Surgery
DX: E86.0 Dehydration (principal)
CPT/HCPCS: 96360; 96361

== ENCOUNTER 2019-07-21 10:18 | Inpatient (IN) | payer MEDICARE, OTHER ==
[2019-07-20 09:10] VITALS: BMI 29.2
--- NOTE | 2019-07-21 08:41 | P.GSHP ---
History of Present Illness H&P Date: 07/21/19 CHIEF COMPLAINT: GERD HISTORY OF PRESENT ILLNESS: The patient is a 54-year-old male who presents reports gastroesophageal reflux disease. Upper endoscopy was offered for further evaluation and management. PAST MEDICAL HISTORY: Please see list. PAST SURGICAL HISTORY: Please see list. MEDICATIONS: Please see list. ALLERGIES: Please see list. SOCIAL HISTORY: No illicit drug use FAMILY HISTORY: No reports of Crohn disease or ulcerative colitis. REVIEW OF ORGAN SYSTEMS: CONSTITUTIONAL: No reports of fevers or chills. GI: Denies any blood in stools or constipation. PHYSICAL EXAM: VITAL SIGNS: Stable GENERAL: Well-developed and pleasant in no acute distress. HEENT: No scleral icterus. Extraocular movements grossly intact. Moist buccal mucosa. NECK: Supple without lymphadenopathy. CHEST: Unlabored respirations. Equal bilateral excursions. CARDIOVASCULAR: Regular rate and rhythm. Distal 2+ pulses. ABDOMEN: Soft, nondistended. MUSCULOSKELETAL: No clubbing, cyanosis, or edema. ASSESSMENT: 1. Gastroesophageal reflux disease PLAN: 1. Recommend proceeding with an upper endoscopy Past Medical History Past Medical History: CVA/TIA, GERD/Reflux, Hypertension, Osteoarthritis (OA), Pneumonia Additional Past Medical History / Comment(s): hiatal hernia, gout, neuropathy marta legs and feet- states feet are numb, some numbness in legs & tingling in hands., chronic back pain., constipation., dysphagia-hx of EGD with dilation. History of Any Multi-Drug Resistant Organisms: MRSA Date of last positivie culture/infection: approx 10 yrs ago MDRO Source:: left hip Past Surgical History: Back Surgery, Bariatric Surgery, Heart Catheterization, Joint Replacement, Orthopedic Surgery Additional Past Surgical History / Comment(s): PAIN PUMP IMPLANTED 07/17/18, HX GASTRIC SLEEVE AND . BILATERAL KNEE arthroscopy, BILATERAL HIP replacement, LEFT SHOULDER replacement, LEFT ACHILES TENDON SX., RIGHT BIG TOE, echocardiolgram, spinal fusion, EGD with dilation., STATES HX OF PNEUMONIA WITH LUNG SURGERY., REPAIR OF HIATAL HERNIA & LYSIS OF ADHESIONS Past Anesthesia/Blood Transfusion Reactions: No Reported Reaction Past Psychological History: Anxiety, Depression Smoking Status: Former smoker Past Alcohol Use History: None Reported Additional Past Alcohol Use History / Comment(s): quit smoking 2018, smoked since age 21, 1 PPD Past Drug Use History: None Reported - Past Family History Father Family Medical History: Cancer Additional Family Medical History / Comment(s): lung Mother Family Medical History: Coronary Artery Disease (CAD), Hypertension Medications and Allergies Home Medications Medication Instructions Recorded Confirmed Type Allopurinol [Zyloprim] 300 mg PO DAILY 06/04/16 07/20/19 History Cyclobenzaprine [Flexeril] 10 mg PO BID 06/04/16 07/20/19 History Escitalopram [Lexapro] 10 mg PO QAM 06/04/16 07/20/19 History Lacosamide [Vimpat] 50 mg PO BID 03/25/18 07/20/19 History Zolpidem Tartrate [Ambien] 10 mg PO HS 03/25/18 07/20/19 History Ergocalciferol (Vitamin D2) 50,000 unit PO MO 06/19/18 07/20/19 History [Vitamin D2] Lisinopril [Zestril] 2.5 mg PO DAILY 07/14/18 07/20/19 History Pregabalin [Lyrica] 300 mg PO BID 07/17/18 07/20/19 History Ibuprofen [Motrin] 800 mg PO TID PRN 07/01/19 07/20/19 History oxyCODONE-APAP 7.5-325MG [Percocet 1 tab PO BID PRN 07/01/19 07/20/19 History 7.5-325 mg] Omeprazole 40 mg PO BID #60 cap 07/06/19 07/20/19 Rx Sucralfate [Carafate] 1 gm PO BID #60 tablet 07/06/19 07/20/19 Rx Furosemide [Lasix] 20 mg PO DAILY 07/20/19 07/20/19 History Morphine Pain Pump 1.25 mg CONTINUOUS 07/20/19 History Ondansetron [Zofran] 4 mg PO Q6HR PRN 07/20/19 07/20/19 History Sertraline [Zoloft] 50 mg PO DAILY 07/20/19 07/20/19 History Allergies Allergy/AdvReac Type Severity Reaction Status Date / Time No Known Allergies Allergy Verified 07/20/19 08:32
[~2019-07-21 10:18] MED LIST changes: -LACTATED RINGERS 1,000 ML IV SCH; +LIDOCAINE 1% 20 ML VIAL (10MG/ML) FOR IV START INTRADERMA PRN
[2019-07-21] MEDS: LACTATED RINGERS 1,000 ML IV SCH ×2 (13:08→16:28)
[2019-07-21] MEDS ORDERED: PHENYLEPHRINE-0.9% NACL SYG 1 MG/10 ML SYRINGE ONE (13:10)
[2019-07-21] MEDS ORDERED: PROPOFOL 10 MG/ML 20 ML VIAL IV ONE (13:10)
[2019-07-21] MEDS ORDERED: LIDOCAINE 1% INJ 10MG/ML (20 ML MDV) ONE (13:10)
[2019-07-21] MEDS ORDERED: NALOXONE 0.4 MG/ML 1 ML VIAL IV PRN (13:22)
[2019-07-21] MEDS ORDERED: SODIUM CHLORIDE 0.9% 2,000 ML IV ONE (13:24)
--- NOTE | 2019-07-21 13:30 | P.PCN ---
Date of Procedure: 07/21/19 Description of Procedure: PREOPERATIVE DIAGNOSIS: Esophageal obstruction Intractable nausea vomiting Dysphagia History of esophageal obstruction POSTOPERATIVE DIAGNOSIS: Esophageal obstruction with food impaction Intractable nausea vomiting Dysphagia History of esophageal obstruction OPERATION: Esophagogastroduodenoscopy with 10 mm balloon dilation SURGEON: Alycia Dumont MD ANESTHESIA: MAC. INDICATIONS: The patient is a 54-year-old male who presents with acute esophageal obstruction including intractable nausea and vomiting. Benefits and risks of the procedure were described. Informed consent was obtained. DESCRIPTION: The patient was brought into the endoscopy suite and laid in the left lateral decubitus position. An Olympus gastroscope was passed along the posterior oropharynx down to the distal esophagus was severe erosive esophagitis including chronic ulceration and obstruction at the distal esophagus. The mid to proximal esophagus was patulous and moderately dilated. The esophagus was highly tortuous. The scope could not pass beyond the stricture of the esophagus. A [employer] balloon dilation to 10 mm achieved. Moderate retained food was found along the distal esophagus prohibiting further dilation. Additionally, secondary to moderate retained food, patient is high risk for aspiration. Procedure was terminated. FINDINGS: Esophageal stricture with obstruction and food impaction dilated to 10 mm Persistent erosive esophagitis with ulceration improved RECOMMENDATIONS: 1. Recommend admission with nothing by mouth status secondary to moderate retained food and esophageal obstruction 2. Will need repeat attempted dilation as food impaction clear
[2019-07-21] MEDS: PANTOPRAZOLE 40 MG/10 ML VIAL IV SCH ×2 (15:23→20:53)
--- NOTE | 2019-07-21 18:49 | P.PN ---
Progress Note - Text Progress Note Date: 07/21/19 Patient reports still persistent pressure in the chest from esophageal obstruction. Patient admitted with IV fluid hydration. We'll reattempt upper endoscopy with balloon dilation to address acute esophageal obstruction
[2019-07-21] MEDS ORDERED: METOCLOPRAMIDE 5 MG/ML 2 ML VIAL IVP PRN (18:50)
[2019-07-21] MEDS ORDERED: ONDANSETRON 4 MG/2 ML VIAL IVP PRN (18:50)
[2019-07-21] MEDS: SODIUM CHLORIDE 0.9% 1,000 ML IV SCH ×2 (19:24→21:40)
[2019-07-21 20:05] LABS: Basophils % (A) 1 %; Eosinophils % (A) 1 %; HCT 43.1 % (39.0-53.0); HGB 12.3 gm/dL (13.0-17.5); Hypochromasia Marked; Lymphocytes # (A) 0.3 k/uL (1.0-4.8); Lymphocytes % (A) 9 %; MCH 27.8 pg (25.0-35.0); MCHC 28.6 g/dL (31.0-37.0); MCV 97.4 fL (80.0-100.0); Mean Platelet Volume 9.4; Monocytes # (A) 0.2 k/uL (0-1.0); Monocytes % (A) 4 %; Neutrophils # (A) 3.2 k/uL (1.3-7.7); Neutrophils % (A) 84 %; Platelet Count 130 k/uL (150-450); RBC 4.43 m/uL (4.30-5.90); RDW 14.6 % (11.5-15.5); WBC 3.8 k/uL (3.8-10.6)
[2019-07-21] MEDS: ACETAMINOPHEN IV (For NPO) 1,000 MG in EMPTY BAG 1 BAG IVPB SCH (20:07)
[2019-07-21 20:13] LABS: African American GFR (CKD) >90 (>60 ml/min/1.73 sqM); Anion Gap 3 mmol/L; Blood Urea Nitrogen 16 mg/dL (9-20); Calcium 7.8 mg/dL (8.4-10.2); Carbon Dioxide 33 mmol/L (22-30); Chloride 106 mmol/L (98-107); Glucose 85 mg/dL (74-99); Magnesium 1.3 mg/dL (1.6-2.3); Non-African American GFR(CKD) >90 (>60 ml/min/1.73 sqM); Phosphorus 2.7 mg/dL (2.5-4.5); Potassium 3.8 mmol/L (3.5-5.1); Sodium 142 mmol/L (137-145)
[2019-07-21] MEDS: D5-0.45% NACL WITH KCL 20MEQ/L 1,000 ML IV SCH ×2 (20:23→22:43)
--- NOTE | 2019-07-21 20:31 | XR ---
EXAMINATION TYPE: XR chest 2V DATE OF EXAM: 07/21/2019 COMPARISON: 02/24/2018 HISTORY: Follow-up pneumonia TECHNIQUE: FINDINGS: There is some patchy airspace consolidation in the left upper lobe and left lower lobe. The right lung is fairly clear. Heart size is normal. Bony thorax is intact. There is some arthritic erika nge in the left shoulder joint. There is no definite pleural effusion. IMPRESSION: There is evidence of new extensive airspace pneumonia in the left lung compared to last e xam.
[2019-07-21] MEDS: DEXAMETHASONE SOD PHOSPHATE 4 MG/ML 1 ML VIAL IV SCH (23:42)
[2019-07-21] MEDS: PIPERACILLIN-TAZOBACTAM 3.375 GM in SODIUM CHLORIDE 0.9% 100 ML IVPB SCH (23:43)
[2019-07-22] MEDS: ACETAMINOPHEN IV (For NPO) 1,000 MG in EMPTY BAG 1 BAG IVPB SCH ×3 (02:12→14:11)
[2019-07-22] MEDS: LACTATED RINGERS 1,000 ML IV SCH ×2 (05:27→22:21)
[2019-07-22] MEDS: D5-0.45% NACL WITH KCL 20MEQ/L 1,000 ML IV SCH ×3 (05:30→19:55)
[2019-07-22] MEDS: DEXAMETHASONE SOD PHOSPHATE 4 MG/ML 1 ML VIAL IV SCH ×3 (05:38→17:06)
[2019-07-22 08:14] LABS: African American GFR (CKD) >90 (>60 ml/min/1.73 sqM); Anion Gap 3 mmol/L; Blood Urea Nitrogen 18 mg/dL (9-20); Calcium 7.3 mg/dL (8.4-10.2); Carbon Dioxide 32 mmol/L (22-30); Chloride 106 mmol/L (98-107); Glucose 131 mg/dL (74-99); Magnesium 1.4 mg/dL (1.6-2.3); Non-African American GFR(CKD) >90 (>60 ml/min/1.73 sqM); Phosphorus 3.6 mg/dL (2.5-4.5); Potassium 4.2 mmol/L (3.5-5.1); Sodium 141 mmol/L (137-145)
[2019-07-22] MEDS: PANTOPRAZOLE 40 MG/10 ML VIAL IV SCH ×2 (09:02→22:21)
[2019-07-22] MEDS: PIPERACILLIN-TAZOBACTAM 3.375 GM in SODIUM CHLORIDE 0.9% 100 ML IVPB SCH ×2 (09:06→15:56)
[2019-07-22] MEDS: MAGNESIUM SULFATE-D5W PMX 1 GM in DEXTROSE/WATER 1 100ML.BAG IVPB SCH ×4 (09:51→15:57)
[2019-07-22] MEDS ORDERED: PROPOFOL 10 MG/ML 20 ML VIAL IV ONE (10:26)
[2019-07-22] MEDS ORDERED: SUCCINYLCHOLINE CHLORIDE VIAL 200 MG/10 ML VIAL IV ONE (10:26)
[2019-07-22] MEDS ORDERED: LIDOCAINE 1% INJ 10MG/ML (20 ML MDV) ONE (10:26)
[2019-07-22] MEDS ORDERED: fentaNYL (PF) 50 MCG/ML 2 ML AMP ONE (10:26)
[2019-07-22] MEDS ORDERED: IV FLUID CONTINUATION 800 ML IV ONE (10:33)
--- NOTE | 2019-07-22 10:33 | P.HPADDEND ---
H&P Addendum H&P Addendum Date: 07/22/19 The patient's x-ray confirms aspiration pneumonitis on the left lung. He does report history of chronic aspirations. Pulmonary consulted. To protect airway, general intubation with esophageal dilation to be performed. Recommend inpatient hospitalization for complete esophageal obstruction including h ypotension present on admission and severe dehydration reviewed. All questions addressed with patient who agreed to proceed.
[2019-07-22] MEDS ORDERED: SILDENAFIL 20 MG TAB PO SCH (10:45)
--- NOTE | 2019-07-22 11:29 | P.PCN ---
Date of Procedure: 07/22/19 Description of Procedure: PREOPERATIVE DIAGNOSIS: Esophageal obstruction Esophageal ulceration Esophageal dysmotility Retained food in the esophagus Intractable nausea and vomiting Aspiration pneumonitis POSTOPERATIVE DIAGNOSIS: Near-complete esophageal obstruction Esophageal ulceration Esophageal dysmotility Retained food in the esophagus Intractable nausea and vomiting Aspiration pneumonitis OPERATION: Esophagogastroduodenoscopy with rigid dilator over the guidewire 30-39-42 Fr Esophagogastroduodenoscopy with removal of foreign body with [employer] SURGEON: Alycia Dumont MD ANESTHESIA: GETA INDICATIONS: The patient is a 54-year-old male who presents with esophageal obstruction and aspiration pneumonitis secondary to complete esophageal obstruction. Benefits and risks of the procedure were described. Informed consent was obtained. DESCRIPTION: The patient was brought into the endoscopy suite. general endotracheal intubation was performed for higher risk of aspiration and moderate pain for throughout the esophagus. He was maintained in supine position. After a timeout was confirmed, the procedure was initiated. An Olympus gastroscope was passed into the esophagus where the entire esophagus was filled with both fluid and food stuff. The scope could not pass the esophageal obstruction at 50 cm from the incisors. A chronic esophageal ulcer was confirmed. The mid to distal esophagus was moderately dilated. Next using an [place] rigid dilator, a guidewire was placed through the pediatric gastroscope. Next the scope was withdrawn. Serial dilation from 58-02-35-Chinese dilators were passed carefully along the posterior oropharynx to 55 to 60 cm and left in place for 2-3 minutes stretch. The dilator was withdrawn including the guidewire. The scope was reentered along the posterior oropharynx with no findings of full-thickness tear of the upper or lower esophageal sphincter. Moderate retained food was found in the dilated esophagus which were removed with 3 passes of the RothNet. The scope was passed into the sleeve which was also moderately tortuous and dilated to the pylorus. No full-thickness injury was encountered. The GI tract was desufflated. FINDINGS: Mildly dilated and tortuous esophagus with retained foodstuff requiring removal of foreign body Chronic esophageal ulcer and stricture at 50 cm from the incisors Distorted sleeve with angulation and angulus incisura Complete removal of foreign body from esophagus performed including suctioned of all aspirate from the esophagus RECOMMENDATIONS: 1. Chronic ulceration with esophageal stricture and with history of sleeve gastrectomy, recommend referral to tertiary care center for further management
--- NOTE | 2019-07-22 13:39 | P.CNPUL ---
History of Present Illness Consult date: 07/22/19 Reason for consult: pneumonia History of present illness: I'm seeing this patient for aspiration pneumonia the left lung. The patient is a 54-year-old male with known history of inflammatory bowel disease. The patient was having difficulty in swallowing and symptoms of GE reflux. Based on that, the patient was brought in yesterday for an outpatient EGD and the indication for EGD was also intractable nausea and emesis along with reflux and dysphagia. The patient was found to have individual stricture with obstruction and forwarded infection and there was evidence of persistent erosive esophagitis with ulceration. Note that the patient had some moderate amount of retained food in the esophagus along with an obstruction. Some esophageal dilatation was done to 10 mm. The patient was kept in the hospital for another endoscopy with further attempts for dilation to clear the impacted food material. During the course of this procedure, the patient aspirated. He started developing high- grade fever with a temperature max of 103.0. The patient was hospitalized. He was started on IV Zosyn. Chest x-ray was done and shows evidence of extensive airspace disease involving the left lung field. He was quite short of breath yesterday. This morning to look better. He was taken for another procedure by the surgeon and yet again the patient was found to have near complete obstruction of the esophagus with esophageal ulceration dysmotility along with retained food material in the esophagus. The patient underwent serial dilatat ion and he underwent removal of foreign body. He was found to have chronic esophageal ulcer and stricture at at 50 cm from the incisors and he was found to have distorted sleep. He underwent suctioning and aspiration of the foreign body. He is currently on oxygen at 3 L of oxygen and the patient's pulse oxing 94%. The patient is currently also on Decadron IV, IV fluids at the rate of 150 mL an hour D5 half-normal with 20 of potassium. Review of Systems Constitutional: Denies chills, Denies fever Eyes: denies as per HPI, denies blurred vision, denies bulging eye, denies decreased vision, denies diplopia, denies discharge, denies dry eye, denies irritation, denies itching, denies pain, denies photophobia, denies loss of per ipheral vision, denies loss of vision, denies tunnel vision/blind spots Ears: deny: decreased hearing, ear discharge, earache, tinnitus Ears, nose, mouth and throat: Denies headache, Denies sore throat Cardiovascular: Denies chest pain, Denies shortness of breath Respiratory: Reports cough, Reports dyspnea Gastrointestinal: Reports constipation, Reports dyspepsia, Reports heartburn, Reports nausea, Reports vomiting Genitourinary: Reports as per HPI Musculoskeletal: Reports as per HPI, Reports low back pain Musculoskeletal: absent: ankle pain, ankle stiffness, ankle swelling Integumentary: Reports as per HPI Neurological: Reports as per HPI, Reports numbness Psychiatric: Reports as per HPI, Reports anxiety, Reports depression Endocrine: Reports as per HPI Hematologic/Lymphatic: Reports as per HPI Allergic/Immunologic: Reports as per HPI Past Medical History Past Medical History: CVA/TIA, GERD/Reflux, Hypertension, Osteoarthritis (OA), Pneumonia Additional Past Medical History / Comment(s): hiatal hernia, gout, neuropathy marta legs and feet- states feet are numb, some numbness in legs & tingling in hands., chronic back pain., constipation., dysphagia-hx of EGD with dilation. History of Any Multi-Drug Resistant Organisms: MRSA Date of last positivie culture/infection: approx 10 yrs ago MDRO Source:: left hip Past Surgical History: Back Surgery, Bariatric Surgery, Heart Catheterization, Joint Replacement, Orthopedic Surgery Additional Past Surgical History / Comment(s): PAIN PUMP IMPLANTED 07/17/18, HX GASTRIC SLEEVE AND . BILATERAL KNEE arthroscopy, BILATERAL HIP replacement, LEFT SHOULDER replacement, LEFT ACHILES TENDON SX., RIGHT BIG TOE, echocardiolgram, spinal fusion, EGD with dilation., STATES HX OF PNEUMONIA WITH LUNG SURGERY., REPAIR OF HIATAL HERNIA & LYSIS OF ADHESIONS Past Anesthesia/Blood Transfusion Reactions: No Reported Reaction Past Psychological History: Anxiety, Depression Smoking Status: Former smoker Past Alcohol Use History: None Reported Additional Past Alcohol Use History / Comment(s): quit smoking 2017, smoked since age 21, 1 PPD Past Drug Use History: None Reported - Past Family History Father Family Medical History: Cancer Additional Family Medical History / Comment(s): lung Mother Family Medical History: Coronary Artery Disease (CAD), Hypertension Medications and Allergies Home Medications Medication Instructions Recorded Confirmed Type Allopurinol [Zyloprim] 300 mg PO DAILY 06/04/16 07/21/19 History Cyclobenzaprine [Flexeril] 10 mg PO BID 06/04/16 07/21/19 History Escitalopram [Lexapro] 10 mg PO QAM 06/04/16 07/21/19 History Lacosamide [Vimpat] 50 mg PO BID 03/25/18 07/21/19 History Zolpidem Tartrate [Ambien] 10 mg PO HS 03/25/18 07/21/19 History Ergocalciferol (Vitamin D2) 50,000 unit PO MO 06/19/18 07/21/19 History [Vitamin D2] Lisinopril [Zestril] 2.5 mg PO DAILY 07/14/18 07/21/19 History Pregabalin [Lyrica] 300 mg PO BID 07/17/18 07/21/19 History Ibuprofen [Motrin] 800 mg PO TID PRN 07/01/19 07/21/19 History oxyCODONE-APAP 7.5-325MG [Percocet 1 tab PO BID PRN 07/01/19 07/21/19 History 7.5-325 mg] Omeprazole 40 mg PO BID #60 cap 07/06/19 07/21/19 Rx Sucralfate [Carafate] 1 gm PO BID #60 tablet 07/06/19 07/21/19 Rx Furosemide [Lasix] 20 mg PO DAILY 07/20/19 07/21/19 History Morphine Pain Pump 1.25 mg CONTINUOUS 07/20/19 07/21/19 History Ondansetron [Zofran] 4 mg PO Q6HR PRN 07/20/19 07/21/19 History Sertraline [Zoloft] 50 mg PO DAILY 07/20/19 07/21/19 History Allergies Allergy/AdvReac Type Severity Reaction Status Date / Time No Known Allergies Allergy Verified 07/21/19 12:02 Physical Exam Vitals: Vital Signs Temp Pulse Resp BP Pulse Ox 07/22/19 11:29 97.1 F L 72 18 108/68 95 07/22/19 10:00 68 18 07/22/19 08:06 97.8 F 68 17 100/63 94 L 07/22/19 01:50 98.0 F 76 99/66 93 L 07/22/19 00:50 20 07/21/19 23:11 98.0 F 110 H 20 83/52 93 L 07/21/19 20:27 98.7 F 110 H 18 100/62 97 07/21/19 19:38 101.9 F H 115 H 12 94/60 98 07/21/19 19:32 103.0 F H 115 H 12 94/57 97 07/21/19 19:05 99.2 F 126 H 102/63 90 L 07/21/19 18:50 103.0 F H 122 H 86/52 78 L 07/21/19 15:31 70 16 108/52 99 07/21/19 15:00 71 16 103/62 98 07/21/19 14:45 78 16 109/62 98 07/21/19 14:30 74 16 110/62 98 07/21/19 14:15 71 16 108/66 97 07/21/19 14:01 75 16 105/66 97 07/21/19 13:45 77 16 103/62 97 07/21/19 13:40 89 16 112/66 99 07/21/19 12:10 98.8 F 74 17 98/64 95 Intake and Output 07/21/19 07/22/19 07/22/19 22:59 06:59 14:59 Intake Total 3000 900 700 Balance 3000 900 700 Intake: IV 700 Intake, IV Titration 3000 900 Amount D5-0.45% NaCl with KCl 1000 20Meq/l 1,000 ml @ 150 mls/hr IV .Q6H40M [facility] Rx# :[id number] Sodium Chloride 0.9% 1, 1000 900 000 ml @ 999 mls/hr IV . Q1H1M [facility] Rx#:[id number] Sodium Chloride 0.9% 2, 1000 000 ml @ 999 mls/hr IV . Q2H1M [facility] Rx#:[id number] Other: Voiding Method Urinal Weight 109 kg GENERAL: Well-developed and pleasant in no acute distress. HEENT: No scleral icterus. Extraocular movements grossly intact. Moist buccal mucosa. NECK: Supple without lymphadenopathy. CHEST: Unlabored respirations. Equal bilateral excursions. The patient has checked his involving the left lung anteriorly. Breath sounds bilaterally with equal and symmetrical. CARDIOVASCULAR:Cardiac exam revealed the PMI to be normally situated and sized. The rhythm was regular and no extrasystoles were noted during several minutes of auscultation. The first and second heart sounds were normal and physiologic splitting of the second heart sound was noted. There were no murmurs, rubs, clicks, or gallops. Abdominal exam revealed normal bowel sounds. The abdomen was soft, non-tender, and without masses, organomegaly, or appreciable enlargement of the abdominal aorta. Examination of the extremities revealed easily palpable radial, femoral and pedal pulses. There was no cyanosis, clubbing or edema. MUSCULOSKELETAL: No clubbing, cyanosis, or edema. Examination of the skin revealed no evidence of significant rashes, suspicious appearing nevi or other concerning lesions. Results - Laboratory Findings CBC and BMP: 07/21/19 19:48 07/22/19 07:21 Abnormal lab findings: Abnormal Labs 07/21/19 07/21/19 07/22/19 19:48 19:48 07:21 Hgb 12.3 L MCHC 28.6 L Plt Count 130 L Lymphocytes # 0.3 L Carbon Dioxide 33 H 32 H Glucose 131 H Calcium 7.8 L 7.3 L Magnesium 1.3 L 1.4 L - Diagnostic Findings Chest x-ray: image reviewed Assessment and Plan Plan: 1 left lung pneumonia with extensive consolidation, consider aspiration pneumonia based on the above-mentioned clinical scenario 2 acute hypoxic respiratory failure secondary to above 3 esophageal stricture/ulceration with fluid retention, post EGD 2 with s uccessful dilatation and removal of foreign bodies 4 acid reflux 5 history of gastric sleeve 6 hypertension 7 gout 8 chronic peripheral neuropathy 9 currently bilateral hip pain 10 history of morbid obesity improved following gastric bypass 11 chronic left diaphragmatic elevation 12 history of left lung pneumonia/empyema requiring left thoracotomy with complete decortication back in 2018 Plan Agree on IV Zosyn Aspiration precautions Oxygen 2 L per minute nasal cannula Repeat chest x-ray in the morning Albuterol nebulized treatments around the clock No need for bronchoscopy unless the patient's condition deteriorates
[2019-07-22] MEDS: ALBUTEROL NEBULIZED 2.5 MG/3 ML INHALATION SCH ×2 (15:18→19:34)
[2019-07-22] MEDS: HYDROmorphone 1 MG/ML 1 ML SYRINGE IVP PRN (19:54)
--- NOTE | 2019-07-22 21:15 | P.CONS ---
History of Present Illness - Reason for Consult Consult date: 07/22/19 Medical management Requesting physician: Alycia Dumont - Chief Complaint Cough with fever - History of Present Illness Consultation: This is a very pleasant 54-year-old patient of Dr. Alexandrea Ang. stable medical conditions include hypertension, , gout, chronic bilateral hip pain, bilateral peripheral neuropathy. Patient had a gastric sleeve in [address] Zarate. June 2018 had lysis of adhesions, laparoscopic reduction and repair of incarcerated paraesophageal hiatal hernia with a mesh and takedown of a gastric gastric fistula by Dr. Dumont. At her baseline patient is to walk slowly because of peripheral neuropathy. In August 2018 patient had EGD done that showed severe erosive esophagitis with esophageal ulcer. Patient was readmitted recently on July 05 underwent balloon dilatation of 10-7 mm done. Was discharged in clinically liquids. Patient now admitted and underwent EGD by Dr. Carbajal. Again was encountered severe esophagitis and distal esophageal obstruction. A 10 mm dilatation was carried out. Retained food was extracted. Patient also was started having fevers up to 100-103. Has started coughing up yellow sputum. Patient was cultured yesterday. Earlier today patient again taken down to the endoscopy suite. Obstructed. Food Was found in the esophagus. And removed. Review of systems: GEN.: Tired EYES: None HEENT: None NECK: None RESPIRATORY: As above CARDIOVASCULAR: None GASTROINTESTINAL: Difficulty swallowing. GENITOURINARY: None MUSCULOSKELETAL: Some joint pains LYMPHATICS: None HEMATOLOGICAL: None PSYCHIATRY: None NEUROLOGICAL: Numbness peripherally Social history: Patient smoked one half a pack a day for more than 20 years. . No alcohol. Past medical history to include: GERD, hypertension, osteoarthritis, hiatal hernia, gout, idiopathic peripheral neuropathy, sleeve gastrectomy, severe esophagitis, esophageal ulcer Physical examination: VITAL SIGNS: 98.8, 74, 17, 98/64, 95% on room air GENERAL: BMI 29.3, laying in bed awake EYES: Pupils equal. Conjunctiva normal. HEENT: External appearance of nose and ears normal, oral cavity grossly normal. NECK: JVD not raised; masses not palpable. HEART: First and second heart sounds are normal; no edema. LUNGS: Respiratory rate increased, decreased breath sounds. ABDOMEN: Soft, nontender, liver spleen not palpable, no masses palpable. PSYCH: Alert and oriented x3; mood and affect normal. NEUROLOGICAL: Cranial nerves grossly intact; no facial asymmetry, power and sensation grossly intact. LYMPHATICS: No lymph nodes palpable in the axilla and neck INVESTIGATIONS, reviewed in the clinical context: White count 3.8 hemoglobin 12.3 platelets 1:30 potassium 3.8 creatinine 0.86 Chest [id number] reviewed by me shows multiple lobe infiltrates Assessment: -Multilobar pneumonia, could be aspiration, causing sepsis -Progressive severe dysphagia to both solids and liquids from recurrent esophageal stricture with dilatation with 10 mm -Severe esophagitis and distal esophageal ulcer., Causing obstruction with f ood, that was extracted -History of paraesophageal repair and history of sleeve gastrectomy -Essential hypertension -Primary osteoarthritis -Gout -Idiopathic peripheral neuropathy Plan: Patient was pancultured yesterday. Started on IV Zosyn. Oral medications to be resumed when okay with Dr. Carbajal. Sputum will be sent off for Gram stain and culture. Care was discussed with the patient question were answered. Patient be started on clear liquids this evening. Thank you Dr. Dumont Past Medical History Past Medical History: CVA/TIA, GERD/Reflux, Hypertension, Osteoarthritis (OA), Pneumonia Additional Past Medical History / Comment(s): hiatal hernia, gout, neuropathy marta legs and feet- states feet are numb, some numbness in legs & tingling in hands., chronic back pain., constipation., dysphagia-hx of EGD with dilation. History of Any Multi-Drug Resistant Organisms: MRSA Year Discovered:: approx 10 yrs ago MDRO Source:: left hip Past Surgical History: Back Surgery, Bariatric Surgery, Heart Catheterization, Joint Replacement, Orthopedic Surgery Additional Past Surgical History / Comment(s): PAIN PUMP IMPLANTED 07/17/18, HX GASTRIC SLEEVE AND . BILATERAL KNEE arthroscopy, BILATERAL HIP replacement, LEFT SHOULDER replacement, LEFT ACHILES TENDON SX., RIGHT BIG TOE, echocardiolgram, spinal fusion, EGD with dilation., STATES HX OF PNEUMONIA WITH LUNG SURGERY., REPAIR OF HIATAL HERNIA & LYSIS OF ADHESIONS Past Anesthesia/Blood Transfusion Reactions: No Reported Reaction Past Psychological History: Anxiety, Depression Smoking Status: Former smoker Past Alcohol Use History: None Reported Additional Past Alcohol Use History / Comment(s): quit smoking 2017, smoked since age 21, 1 PPD Past Drug Use History: None Reported - Past Family History Father Family Medical History: Cancer Additional Family Medical History / Comment(s): lung Mother Family Medical History: Coronary Artery Disease (CAD), Hypertension Medications and Allergies Home Medications Medication Instructions Recorded Confirmed Type Allopurinol [Zyloprim] 300 mg PO DAILY 06/04/16 07/21/19 History Cyclobenzaprine [Flexeril] 10 mg PO BID 06/04/16 07/21/19 History Escitalopram [Lexapro] 10 mg PO QAM 06/04/16 07/21/19 History Lacosamide [Vimpat] 50 mg PO BID 03/25/18 07/21/19 History Zolpidem Tartrate [Ambien] 10 mg PO HS 03/25/18 07/21/19 History Ergocalciferol (Vitamin D2) 50,000 unit PO MO 06/19/18 07/21/19 History [Vitamin D2] Lisinopril [Zestril] 2.5 mg PO DAILY 07/14/18 07/21/19 History Pregabalin [Lyrica] 300 mg PO BID 07/17/18 07/21/19 History Ibuprofen [Motrin] 800 mg PO TID PRN 07/01/19 07/21/19 History oxyCODONE-APAP 7.5-325MG [Percocet 1 tab PO BID PRN 07/01/19 07/21/19 History 7.5-325 mg] Omeprazole 40 mg PO BID #60 cap 07/06/19 07/21/19 Rx Sucralfate [Carafate] 1 gm PO BID #60 tablet 07/06/19 07/21/19 Rx Furosemide [Lasix] 20 mg PO DAILY 07/20/19 07/21/19 History Morphine Pain Pump 1.25 mg CONTINUOUS 07/20/19 07/21/19 History Ondansetron [Zofran] 4 mg PO Q6HR PRN 07/20/19 07/21/19 History Sertraline [Zoloft] 50 mg PO DAILY 07/20/19 07/21/19 History Allergies Allergy/AdvReac Type Severity Reaction Status Date / Time No Known Allergies Allergy Verified 07/21/19 12:02 Physical Exam Vitals: Vital Signs Temp Pulse Resp BP Pulse Ox 07/22/19 08:06 97.8 F 68 17 100/63 94 L 07/22/19 01:50 98.0 F 76 99/66 93 L 07/22/19 00:50 20 07/21/19 23:11 98.0 F 110 H 20 83/52 93 L 07/21/19 20:27 98.7 F 110 H 18 100/62 97 07/21/19 19:38 101.9 F H 115 H 12 94/60 98 07/21/19 19:32 103.0 F H 115 H 12 94/57 97 07/21/19 19:05 99.2 F 126 H 102/63 90 L 07/21/19 18:50 103.0 F H 122 H 86/52 78 L 07/21/19 15:31 70 16 108/52 99 07/21/19 15:00 71 16 103/62 98 07/21/19 14:45 78 16 109/62 98 07/21/19 14:30 74 16 110/62 98 07/21/19 14:15 71 16 108/66 97 07/21/19 14:01 75 16 105/66 97 07/21/19 13:45 77 16 103/62 97 07/21/19 13:40 89 16 112/66 99 07/21/19 12:10 98.8 F 74 17 98/64 95 Intake and Output 07/21/19 07/22/19 07/22/19 22:59 06:59 14:59 Intake Total 3000 900 Balance 3000 900 Intake: Intake, IV Titration 3000 900 Amount D5-0.45% NaCl with KCl 1000 20Meq/l 1,000 ml @ 150 mls/hr IV .Q6H40M [facility] Rx# :[id number] Sodium Chloride 0.9% 1, 1000 900 000 ml @ 999 mls/hr IV . Q1H1M [facility] Rx#:[id number] Sodium Chloride 0.9% 2, 1000 000 ml @ 999 mls/hr IV . Q2H1M [facility] Rx#:[id number] Other: Voiding Method Urinal Weight 109 kg Results CBC & Chem 7: 07/21/19 19:48 07/22/19 07:21 Labs: Abnormal Lab Results - Last 24 Hours (Table) 07/21/19 07/21/19 07/22/19 Range/Units 19:48 19:48 07:21 Hgb 12.3 L (13.0-17.5) gm/dL MCHC 28.6 L (31.0-37.0) g/dL Plt Count 130 L (150-450) k/uL Lymphocytes # 0.3 L (1.0-4.8) k/uL Carbon Dioxide 33 H 32 H (22-30) mmol/L Glucose 131 H (74-99) mg/dL Calcium 7.8 L 7.3 L (8.4-10.2) mg/dL Magnesium 1.3 L 1.4 L (1.6-2.3) mg/dL Microbiology - Last 24 Hours (Table) 07/21/19 00:07 Urine Culture - Preliminary Urine,Voided
[2019-07-22] MEDS: ENOXAPARIN 40 MG/0.4 ML SYRINGE SQ SCH (22:21)
[2019-07-23] MEDS: DEXAMETHASONE SOD PHOSPHATE 4 MG/ML 1 ML VIAL IV SCH ×5 (00:16→23:17)
[2019-07-23] MEDS: PIPERACILLIN-TAZOBACTAM 3.375 GM in SODIUM CHLORIDE 0.9% 100 ML IVPB SCH ×4 (00:16→23:18)
[2019-07-23] MEDS: D5-0.45% NACL WITH KCL 20MEQ/L 1,000 ML IV SCH ×3 (05:20→11:31)
[2019-07-23] MEDS: LACTATED RINGERS 1,000 ML IV SCH ×3 (06:20→23:18)
[2019-07-23 07:23] LABS: HGB 12.2 gm/dL (13.0-17.5); Hypochromasia Marked; MCH 27.6 pg (25.0-35.0); MCV 95.2 fL (80.0-100.0); Mean Platelet Volume 9.7; Platelet Count 166 k/uL (150-450); RBC 4.41 m/uL (4.30-5.90); RDW 14.6 % (11.5-15.5); WBC 10.8 k/uL (3.8-10.6)
[2019-07-23] MEDS: PANTOPRAZOLE 40 MG/10 ML VIAL IV SCH ×2 (07:33→20:11)
[2019-07-23 07:51] LABS: African American GFR (CKD) >90 (>60 ml/min/1.73 sqM); Anion Gap 6 mmol/L; Blood Urea Nitrogen 15 mg/dL (9-20); Calcium 8.3 mg/dL (8.4-10.2); Carbon Dioxide 31 mmol/L (22-30); Chloride 104 mmol/L (98-107); Glucose 118 mg/dL (74-99); Non-African American GFR(CKD) >90 (>60 ml/min/1.73 sqM); Potassium 4.7 mmol/L (3.5-5.1); Sodium 141 mmol/L (137-145)
[2019-07-23] MEDS: ALBUTEROL NEBULIZED 2.5 MG/3 ML INHALATION SCH ×4 (09:14→21:29)
--- NOTE | 2019-07-23 10:15 | P.PN ---
<Virgie Iverson - Last Filed: 07/23/19 10:10> Subjective Progress Note Date: 07/23/19 CHIEF COMPLAINT: Dysphasia HISTORY OF PRESENT ILLNESS: Patient is status post EGD with dilation with Dr. Dumont. Postoperative #1. Patient examined this morning at the bedside. He is tolerating liquid diet and reports improvement in dysphagia. Vital signs stable. He is afebrile. PHYSICAL EXAM: VITAL SIGNS: Reviewed GENERAL: Well-developed in no acute distress. HEENT: No sclera icterus. Extraocular movements grossly intact. Moist buccal mucosa. Head is atraumatic, normocephalic. Hears conversational speech. No nasal drainage. NECK: Supple without lymphadenopathy. CHEST: Non-labored respirations and equal bilateral excursions. CARDIOVASCULAR: Regular rate with regular rhythm. Palpable 2+ radial pulses. ABDOMEN: Soft. Nondistended. Nontender. MUSCULOSKELETAL: No clubbing, cyanosis or edema. NEUROLOGIC: No focal or lateralizing signs. Cranial nerves II through XII grossly intact. PSYCH: Appropriate affect. Alert and oriented to person, place and time. SKIN: Well perfused. Good skin turgor. ASSESSMENT: 1. Near-complete esophageal obstruction 2. Chronic esophageal ulcer and stricture 3. Esophageal dysmotility 4. Retained food in the esophagus 5. Intractable nausea and vomiting 6. Aspiration pneumonitis 7. 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 History of aspiration prior to sleeve gastrectomy 9. Chronic dilated esophagus PLAN: -Continue liquid diet -Stable for discharge home when cleared by pulmonary -Per Dr. Dumont, patient will require outpatient evaluation at tertiary care center for chronic ulceration with esophageal stricture Nurse practitioner note has been reviewed by physician. Signing provider agrees with the documented findings, assessment, and plan of care. Objective - Vital Signs Vital signs: Vital Signs Temp 98.8 F 07/23/19 07:18 Pulse 80 07/23/19 09:24 Resp 17 07/23/19 08:56 BP 142/91 07/23/19 07:18 Pulse Ox 91 L 07/23/19 07:18 Intake & Output 07/22/19 07/23/19 07/23/19 18:59 06:59 18:59 Intake Total 750 1300 Output Total 1500 Balance 750 -200 Intake: IV 750 Intake, IV Titration 1100 Amount Lactated Ringers 1,000 ml 1000 @ 125 mls/hr IV .Q8H [facility] Rx#:[id number] Piperacillin-Tazobactam 3 100 .375 gm In Sodium Chloride 0.9% 100 ml @ 25 mls/hr IVPB Q8HR [facility] Rx# :[id number] Oral 200 Output: Urine 1500 Other: Voiding Method Urinal Toilet Toilet Urinal Urinal - Labs CBC & Chem 7: 07/23/19 06:58 07/23/19 06:58 Labs: Abnormal Lab Results - Last 24 Hours (Table) 07/23/19 07/23/19 Range/Units 06:58 06:58 WBC 10.8 H (3.8-10.6) k/uL Hgb 12.2 L (13.0-17.5) gm/dL MCHC 29.0 L (31.0-37.0) g/dL Carbon Dioxide 31 H (22-30) mmol/L Glucose 118 H (74-99) mg/dL Calcium 8.3 L (8.4-10.2) mg/dL Microbiology - Last 24 Hours (Table) 07/21/19 23:20 Blood Culture - Preliminary Blood No Growth after 24 hours 07/21/19 00:07 Urine Culture - Preliminary Urine,Voided <Alycia Dumont N - Last Filed: 07/23/19 17:05> Subjective As above. Patient has pre-existing history of chronic aspiration pneumonia for many years. Additionally, esophagrams from 2016 also confirmed severely dilated esophagus. I reviewed with the patient nhe will likely need referral to cardiothoracic surgeon for possible esophageal surgery with his concurrent esophageal dysmotility and chronic esophageal obstructions. He is tolerating diet. We will discharge after cleared by pulmonary. Discharge diet will be liquids Objective - Vital Signs Vital signs: Vital Signs Temp 98.4 F 07/23/19 15:00 Pulse 73 07/23/19 16:12 Resp 16 07/23/19 15:00 BP 124/85 07/23/19 15:00 Pulse Ox 95 07/23/19 15:00 Intake & Output 07/22/19 07/23/19 07/23/19 18:59 06:59 18:59 Intake Total 750 1300 296 Output Total 1500 Balance 750 -200 296 Intake: IV 750 Intake, IV Titration 1100 Amount Lactated Ringers 1,000 ml 1000 @ 125 mls/hr IV .Q8H [facility] Rx#:[id number] Piperacillin-Tazobactam 3 100 .375 gm In Sodium Chloride 0.9% 100 ml @ 25 mls/hr IVPB Q8HR [facility] Rx# :[id number] Oral 200 296 Output: Urine 1500 Other: Voiding Method Urinal Toilet Toilet Urinal Urinal # Voids 1 - Labs CBC & Chem 7: 07/23/19 06:58 07/23/19 06:58 Labs: Abnormal Lab Results - Last 24 Hours (Table) 07/23/19 07/23/19 Range/Units 06:58 06:58 WBC 10.8 H (3.8-10.6) k/uL Hgb 12.2 L (13.0-17.5) gm/dL MCHC 29.0 L (31.0-37.0) g/dL Carbon Dioxide 31 H (22-30) mmol/L Glucose 118 H (74-99) mg/dL Calcium 8.3 L (8.4-10.2) mg/dL Microbiology - Last 24 Hours (Table) 07/21/19 00:07 Urine Culture - Final Urine,Voided Strep agalactiae - (group b) 07/21/19 23:20 Blood Culture - Preliminary Blood No Growth after 24 hours
--- NOTE | 2019-07-23 10:32 | P.PN ---
Subjective Progress Note Date: 07/23/19 Principal diagnosis: Left lung pneumonia with extensive consolidation, likely related to aspiration pneumonia I'm seeing this patient for aspiration pneumonia the left lung. The patient is a 54-year-old male with known history of inflammatory bowel disease. The patient was having difficulty in swallowing and symptoms of GE reflux. Based on that, the patient was brought in yesterday for an outpatient EGD and the indication for EGD was also intractable nausea and emesis along with reflux and dysphagia. The patient was found to have individual stricture with obstruction and forwarded infection and there was evidence of persistent erosive esophagitis with ulceration. Note that the patient had some moderate amount of retained food in the esophagus along with an obstruction. Some esophageal dilatation was done to 10 mm. The patient was kept in the hospital for another endoscopy with further attempts for dilation to clear the impacted food material. During the course of this procedure, the patient aspirated. He started developing high- grade fever with a temperature max of 103.0. The patient was hospitalized. He was started on IV Zosyn. Chest x-ray was done and shows evidence of extensive airspace disease involving the left lung field. He was quite short of breath yesterday. This morning to look better. He was taken for another procedure by the surgeon and yet again the patient was found to have near complete obstruction of the esophagus with esophageal ulceration dysmotility along with retained food material in the esophagus. The patient underwent serial dilatation and he underwent removal of foreign body. He was found to have chronic esophageal ulcer and stricture at at 50 cm from the incisors and he was found to have distorted sleep. He underwent suctioning and aspiration of the foreign body. He is currently on oxygen at 3 L of oxygen and the patient's pulse oxing 94%. The patient is currently also on Decadron IV, IV fluids at the rate of 150 mL an hour D5 half-normal with 20 of potassium. On 07/23/2019 patient seen in follow-up general medical floor, he is calm and comfortable, in no acute distress, on room air, his pulse ox 91%, he has been afebrile, he does still have some chest congestion, and coughing with occasional production of reddish colored sputum. Sputum specimen has not been sent yet, today's labs have been reviewed, showing a white blood cell count of 10.8, hemoglobin is 12.2, sodium is 141, potassium is 4.7, chloride is 104, CO2 31, BUN is 15 creatinine 0.7, patient is on Zosyn for antibiotic coverage, his blood cultures have shown no growth, denies any chest pain. No fever or chills, follow-up chest x-ray is pending today. Objective - Vital Signs Vital signs: Vital Signs Temp 98.8 F 07/23/19 07:18 Pulse 80 07/23/19 09:24 Resp 17 07/23/19 08:56 BP 142/91 07/23/19 07:18 Pulse Ox 91 L 07/23/19 07:18 Intake & Output 07/22/19 07/23/19 07/23/19 18:59 06:59 18:59 Intake Total 750 1300 Output Total 1500 Balance 750 -200 Intake: IV 750 Intake, IV Titration 1100 Amount Lactated Ringers 1,000 ml 1000 @ 125 mls/hr IV .Q8H [facility] Rx#:[id number] Piperacillin-Tazobactam 3 100 .375 gm In Sodium Chloride 0.9% 100 ml @ 25 mls/hr IVPB Q8HR [facility] Rx# :[id number] Oral 200 Output: Urine 1500 Other: Voiding Method Urinal Toilet Toilet Urinal Urinal - Exam GENERAL: Well-developed and pleasant in no acute distress. HEENT: No scleral icterus. Extraocular movements grossly intact. Moist buccal mucosa. NECK: Supple without lymphadenopathy. CHEST: Unlabored respirations. Equal bilateral excursions. The patient has checked his involving the left lung anteriorly. Breath sounds bilaterally with equal and symmetrical, and breath sounds are coarse, with scattered rhonchi and wheezing CARDIOVASCULAR:Cardiac exam revealed the PMI to be normally situated and sized. The rhythm was regular and no extrasystoles were noted during several minutes of auscultation. The first and second heart sounds were normal and physiologic splitting of the second heart sound was noted. There were no murmurs, rubs, clicks, or gallops. Abdominal exam revealed normal bowel sounds. The abdomen was soft, non-tender, and without masses, organomegaly, or appreciable enlargement of the abdominal aorta. Examination of the extremities revealed easily palpable radial, femoral and pedal pulses. There was no cyanosis, clubbing or edema. MUSCULOSKELETAL: No clubbing, cyanosis, or edema. Examination of the skin revealed no evidence of significant rashes, suspicious appearing nevi or other concerning lesions. - Labs CBC & Chem 7: 07/23/19 06:58 07/23/19 06:58 Labs: Abnormal Lab Results - Last 24 Hours (Table) 07/23/19 07/23/19 Range/Units 06:58 06:58 WBC 10.8 H (3.8-10.6) k/uL Hgb 12.2 L (13.0-17.5) gm/dL MCHC 29.0 L (31.0-37.0) g/dL Carbon Dioxide 31 H (22-30) mmol/L Glucose 118 H (74-99) mg/dL Calcium 8.3 L (8.4-10.2) mg/dL Microbiology - Last 24 Hours (Table) 07/21/19 23:20 Blood Culture - Preliminary Blood No Growth after 24 hours 07/21/19 00:07 Urine Culture - Preliminary Urine,Voided Assessment and Plan Plan: Assessment: 1 left lung pneumonia with extensive consolidation, consider aspiration pneumonia based on the above-mentioned clinical scenario 2 acute hypoxic respiratory failure secondary to above 3 esophageal stricture/ulceration with fluid retention, post EGD 2 with successful dilatation and removal of foreign bodies 4 acid reflux 5 history of gastric sleeve 6 hypertension 7 gout 8 chronic peripheral neuropathy 9 currently bilateral hip pain 10 history of morbid obesity improved following gastric bypass 11 chronic left diaphragmatic elevation 12 history of left lung pneumonia/empyema requiring left thoracotomy with complete decortication back in 2018 Plan: Continue current antibiotics, awaiting repeat chest x-ray today, hemodynamically and clinically patient is stable, will send a sputum culture, patient has been afebrile, he is on room air. Still has some chest congestion, continue breathing treatments Is tolerating clear liquid diet. We'll continue to follow I performed a history & physical examination of the patient and discussed their management with my nurse practitioner, Shea Terry. I reviewed the nurse practitioner's note and agree with the documented findings and plan of care. Lung sounds are positive for scattered rhonchi and wheezing throughout the lung vital. The findings and the impression was discussed with the patient. I attest to the documentation by the nurse practitioner. Time with Patient: Less than 30
[2019-07-23] MEDS: HYDROmorphone 1 MG/ML 1 ML SYRINGE IVP PRN (15:18)
[2019-07-23] MEDS ORDERED: oxyCODONE-APAP 7.5-325MG 1 EACH TAB PO PRN (17:07)
--- NOTE | 2019-07-23 19:48 | P.PN ---
Progress Note - Text Progress Note Date: 07/23/19 - Chief Complaint Cough with fever - History of Present Illness Consultation: This is a very pleasant 54-year-old patient of Dr. Alexandrea Ang. stable medical conditions include hypertension, , gout, chronic bilateral hip pain, bilateral peripheral neuropathy. Patient had a gastric sleeve [place] [address] Zarate. June 2018 had lysis of adhesions, laparoscopic reduction and repair of incarcerated paraesophageal hiatal hernia with a mesh and takedown of a gastric gastric fistula by Dr. Dumont. At her baseline patient is to walk slowly because of peripheral neuropathy. In August 2018 patient had EGD done that showed severe erosive esophagitis with esophageal ulcer. Patient was readmitted recently on July 05 underwent balloon dilatation of 10-7 mm done. Was discharged in clinically liquids. Patient now admitted and underwent EGD by Dr. Carbajal. Again was encountered severe esophagitis and distal esophageal obstruction. A 10 mm dilatation was carried out. Retained food was extracted. Patient also was started having fevers up to 100-103. Has started coughing up yellow sputum. Patient was cultured yesterday. Earlier today patient again taken down to the endoscopy suite. Obstructed. Food Was found in the esophagus. And removed. Patient also found to have sepsis with pneumonia possible aspiration. Started on IV Zosyn. Today-patient been on clear liquids. Feels a bit better. Some congestion of the chest. Bringing up yellow sputum. Review of systems: Was done for constitutional, cardiovascular, GI, pulmonary. relevant finding as above Active Medications Albuterol Sulfate (Ventolin Nebulized) 2.5 mg INHALATION RT-QID [facility] Last Admin: 07/23/19 16:00 Dose: 2.5 mg Documented by: Allopurinol (Zyloprim) 300 mg PO DAILY [facility] Cyclobenzaprine HCl (Flexeril) 10 mg PO BID [facility] Dexamethasone Sodium Phosphate (Decadron) 4 mg IV Q6HR [facility] Last Admin: 07/23/19 17:45 Dose: 4 mg Documented by: Enoxaparin Sodium (Lovenox) 40 mg SQ HS [facility] Last Admin: 07/22/19 22:21 Dose: 40 mg Documented by: Ergocalciferol (Vitamin D2) 50,000 unit PO MO [facility] Escitalopram Oxalate (Lexapro) 10 mg PO QAM [facility] Hydromorphone HCl (Dilaudid) 1 mg IVP Q3HR PRN PRN Reason: Moderate to Severe Pain Last Admin: 07/23/19 15:18 Dose: 1 mg Documented by: Potassium Chloride/Dextrose/Sod Cl (D5%-1/2ns-Kcl 20 Meq/L Iv Solution) 1,000 mls @ 150 mls/hr IV .Q6H40M [facility] Last Admin: 07/23/19 11:31 Dose: Not Given Documented by: Piperacillin Sod/Tazobactam (Sod 3.375 gm/ Sodium Chloride) 100 mls @ 25 mls/hr IVPB Q8HR [facility] Last Admin: 07/23/19 15:15 Dose: 25 mls/hr Documented by: Lactated Ringer's (Lactated Ringers) 1,000 mls @ 125 mls/hr IV .Q8H [facility] Last Admin: 07/23/19 11:33 Dose: 125 mls/hr Documented by: Lacosamide (Vimpat) 50 mg PO BID [facility] Lidocaine HCl (.Xylocaine 1% Inj (10mg/Ml) For Iv Start) 0.1 ml INTRADERMA PER PROTOCOL PRN PRN Reason: IV Start Lisinopril (Zestril) 2.5 mg PO DAILY [facility] Metoclopramide HCl (Reglan) 10 mg IVP Q6H PRN PRN Reason: Nausea And Vomiting Naloxone HCl (Narcan) 0.2 mg IV Q2M PRN PRN Reason: Opioid Reversal Ondansetron HCl (Zofran) 4 mg IVP Q8HR PRN PRN Reason: Nausea And Vomiting Oxycodone/Acetaminophen (Percocet 7.5-325) 1 each PO BID PRN PRN Reason: Pain Pantoprazole Sodium (Protonix) 40 mg IV BID [facility] Last Admin: 07/23/19 07:33 Dose: 40 mg Documented by: Pregabalin (Lyrica) 300 mg PO BID [facility] Sertraline HCl (Zoloft) 50 mg PO DAILY [facility] Sucralfate (Carafate) 1 gm PO BID [facility] Zolpidem Tartrate (Ambien) 10 mg PO HS [facility] Physical examination: VITAL SIGNS: 98.8, 64, 17, 142/91, 91% room air GENERAL: Propped up in bed, EYES: Pupils equal. Conjunctiva normal. HEENT: External appearance of nose and ears normal, oral cavity grossly normal. NECK: JVD not raised; masses not palpable. HEART: First and second heart sounds are normal; no edema. LUNGS: Respiratory rate increased, decreased breath sounds, coarse breath sounds. ABDOMEN: Soft, nontender, liver spleen not palpable, no masses palpable. PSYCH: Alert and oriented x3; mood and affect normal. INVESTIGATIONS, reviewed in the clinical context: White count 10.8 hemoglobin 12.2 potassium 4.7 creatinine 0.71 Previous testing White count 3.8 hemoglobin 12.3 platelets 1:30 potassium 3.8 creatinine 0.86 Chest p-uto-amwesrt reviewed by me shows multiple lobe infiltrates Assessment: -Multilobar pneumonia, could be aspiration, causing sepsis, fevers coming down -Progressive severe dysphagia to both solids and liquids from recurrent esophageal stricture with dilatation with 10 mm -Severe esophagitis and distal esophageal ulcer., Causing obstruction with food, that was extracted -History of paraesophageal repair and history of sleeve gastrectomy -Essential hypertension -Primary osteoarthritis -Gout -Idiopathic peripheral neuropathy Plan: Patient is clinically doing a bit better. Continue with IV Zosyn. Other medications to continue. Repeat labs in the morning. Patient is on clear liquids per surgery. Discussed with patient. Thank you Dr. Dumont
[2019-07-23] MEDS: CYCLOBENZAPRINE 10 MG TAB PO SCH (20:09)
[2019-07-23] MEDS: SUCRALFATE 1 GM TAB PO SCH (20:09)
[2019-07-23] MEDS: PREGABALIN 100 MG CAP PO SCH (20:10)
[2019-07-23] MEDS: LACOSAMIDE 50 MG TABLET PO SCH (20:12)
[2019-07-23] MEDS: ENOXAPARIN 40 MG/0.4 ML SYRINGE SQ SCH (20:12)
[2019-07-23] MEDS: ZOLPIDEM 10 MG TAB PO SCH (23:17)
[2019-07-24 07:05] LABS: HCT 39.7 % (39.0-53.0); HGB 11.8 gm/dL (13.0-17.5); Hypochromasia Marked; MCHC 29.7 g/dL (31.0-37.0); MCV 94.2 fL (80.0-100.0); Mean Platelet Volume 9.7; Platelet Count 153 k/uL (150-450); RBC 4.21 m/uL (4.30-5.90); RDW 15.2 % (11.5-15.5); WBC 8.2 k/uL (3.8-10.6)
[2019-07-24] MEDS: PREGABALIN 100 MG CAP PO SCH ×2 (07:11→22:10)
[2019-07-24] MEDS: SERTRALINE 50 MG TAB PO SCH (07:11)
[2019-07-24] MEDS: ALLOPURINOL 300 MG TAB PO SCH (07:11)
[2019-07-24] MEDS: SUCRALFATE 1 GM TAB PO SCH ×2 (07:12→22:10)
[2019-07-24] MEDS: LISINOPRIL 2.5 MG TAB PO SCH (07:12)
[2019-07-24] MEDS: DEXAMETHASONE SOD PHOSPHATE 4 MG/ML 1 ML VIAL IV SCH ×4 (07:12→23:10)
[2019-07-24] MEDS: CYCLOBENZAPRINE 10 MG TAB PO SCH ×2 (07:12→22:10)
[2019-07-24] MEDS: PIPERACILLIN-TAZOBACTAM 3.375 GM in SODIUM CHLORIDE 0.9% 100 ML IVPB SCH ×3 (07:13→23:17)
[2019-07-24] MEDS: ESCITALOPRAM 10 MG TAB PO SCH (07:13)
[2019-07-24 07:14] LABS: African American GFR (CKD) >90 (>60 ml/min/1.73 sqM); Anion Gap 4 mmol/L; Blood Urea Nitrogen 9 mg/dL (9-20); Calcium 8.2 mg/dL (8.4-10.2); Carbon Dioxide 31 mmol/L (22-30); Chloride 106 mmol/L (98-107); Glucose 118 mg/dL (74-99); Non-African American GFR(CKD) >90 (>60 ml/min/1.73 sqM); Potassium 4.2 mmol/L (3.5-5.1); Sodium 141 mmol/L (137-145)
[2019-07-24] MEDS: PANTOPRAZOLE 40 MG/10 ML VIAL IV SCH ×2 (07:14→22:11)
[2019-07-24] MEDS: LACTATED RINGERS 1,000 ML IV SCH ×3 (07:17→22:12)
--- NOTE | 2019-07-24 07:42 | XR ---
EXAMINATION TYPE: XR chest 2V DATE OF EXAM: 07/24/2019 HISTORY: pneumonia FU. REFERENCE: Previous study dated 07/21/2019. FINDINGS: There are previous anterior fusion in the cervical spine. There is been marked clearing of the left lung. The right lung remains clear. I could not exclude a s mall effusion on the left. The heart is not enlarged. IMPRESSION: MARKED IMPROVEMENT IN THE APPEARANCE OF THE CHEST.
[2019-07-24] MEDS: ALBUTEROL NEBULIZED 2.5 MG/3 ML INHALATION SCH ×4 (08:47→21:33)
[2019-07-24] MEDS: LACOSAMIDE 50 MG TABLET PO SCH ×2 (09:05→22:28)
--- NOTE | 2019-07-24 11:20 | P.PN ---
Subjective Progress Note Date: 07/24/19 Clinically the patient is feeling much better. I'm seeing him today in follow- up. There is a follow-up chest x-ray that shows significant improvement in the left lung consolidation. He remains on IV Zosyn. He is tolerating liquids. He is able to swallow well. No significant aspiration. He is on IV fluid at the rate of 1 20 mL an hour. No other significant events overnight. His cough and congestion has subsided significantly. He is currently on room air oxygen. Objective - Vital Signs Vital signs: Vital Signs Temp 97.7 F 07/24/19 07:00 Pulse 72 07/24/19 09:00 Resp 17 07/24/19 07:00 BP 133/87 07/24/19 07:00 Pulse Ox 99 07/24/19 07:00 Intake & Output 07/23/19 07/24/19 07/24/19 18:59 06:59 18:59 Intake Total 296 Output Total 350 1500 Balance -54 -1500 Intake: Oral 296 Output: Urine 350 1500 Other: Voiding Method Toilet Toilet Urinal Urinal # Voids 1 - Exam GENERAL: Well-developed and pleasant in no acute distress. HEENT: No scleral icterus. Extraocular movements grossly intact. Moist buccal mucosa. NECK: Supple without lymphadenopathy. CHEST: Unlabored respirations. Equal bilateral excursions. The patient has checked his involving the left lung anteriorly. Breath sounds bilaterally with equal and symmetrical, and breath sounds are coarse, with scattered rhonchi and wheezing CARDIOVASCULAR:Cardiac exam revealed the PMI to be normally situated and sized. The rhythm was regular and no extrasystoles were noted during several minutes of auscultation. The first and second heart sounds were normal and physiologic splitting of the second heart sound was noted. There were no murmurs, rubs, clicks, or gallops. Abdominal exam revealed normal bowel sounds. The abdomen was soft, non-tender, and without masses, organomegaly, or appreciable enlargement of the abdominal a hipolito. Examination of the extremities revealed easily palpable radial, femoral and pedal pulses. There was no cyanosis, clubbing or edema. MUSCULOSKELETAL: No clubbing, cyanosis, or edema. Examination of the skin revealed no evidence of significant rashes, suspicious appearing nevi or other concerning lesions. - Labs CBC & Chem 7: 07/24/19 06:01 07/24/19 06:01 Labs: Abnormal Lab Results - Last 24 Hours (Table) 07/24/19 07/24/19 Range/Units 06:01 06:01 RBC 4.21 L (4.30-5.90) m/uL Hgb 11.8 L (13.0-17.5) gm/dL MCHC 29.7 L (31.0-37.0) g/dL Carbon Dioxide 31 H (22-30) mmol/L Glucose 118 H (74-99) mg/dL Calcium 8.2 L (8.4-10.2) mg/dL Microbiology - Last 24 Hours (Table) 07/23/19 21:50 Sputum Culture - Preliminary Sputum 07/21/19 23:20 Blood Culture - Preliminary Blood No Growth after 48 hours 07/21/19 00:07 Urine Culture - Final Urine,Voided Strep agalactiae - (group b) Assessment and Plan Plan: 1 left lung pneumonia with extensive consolidation, consider aspiration pneumonia based on the above-mentioned clinical scenario 2 acute hypoxic respiratory failure secondary to above, improved on room air 3 esophageal stricture/ulceration with fluid retention, post EGD 2 with succ essful dilatation and removal of foreign bodies 4 acid reflux 5 history of gastric sleeve 6 hypertension 7 gout 8 chronic peripheral neuropathy 9 currently bilateral hip pain 10 history of morbid obesity improved following gastric bypass 11 chronic left diaphragmatic elevation 12 history of left lung pneumonia/empyema requiring left thoracotomy with complete decortication back in 2018 Plan Continue IV Zosyn, as the patient is improving and there is significant improvement in the left lung consolidation Aspiration precautions Oxygenation is improved and the patient is on room air Follow-up chest x-ray was noted and some improved Albuterol nebulized treatments around the clock No need for bronchoscopy unless the patient's condition deteriorates Continue Decadron Advance diet per surgery.
--- NOTE | 2019-07-24 13:56 | P.PN ---
Subjective Progress Note Date: 07/24/19 Principal diagnosis: Dysphagia Patient doing better today. Says his swallowing is much improved. No nausea or vomiting. Asking for more to eat. Objective - Vital Signs Vital signs: Vital Signs Temp 97.7 F 07/24/19 07:00 Pulse 76 07/24/19 11:47 Resp 17 07/24/19 07:00 BP 133/87 07/24/19 07:00 Pulse Ox 99 07/24/19 07:00 Intake & Output 07/23/19 07/24/19 07/24/19 18:59 06:59 18:59 Intake Total 296 Output Total 350 1500 Balance -54 -1500 Intake: Oral 296 Output: Urine 350 1500 Other: Voiding Method Toilet Toilet Urinal Urinal # Voids 1 - Exam Abdomen: Soft, nontender, nondistended - Labs CBC & Chem 7: 07/24/19 06:01 07/24/19 06:01 Labs: Abnormal Lab Results - Last 24 Hours (Table) 07/24/19 07/24/19 Range/Units 06:01 06:01 RBC 4.21 L (4.30-5.90) m/uL Hgb 11.8 L (13.0-17.5) gm/dL MCHC 29.7 L (31.0-37.0) g/dL Carbon Dioxide 31 H (22-30) mmol/L Glucose 118 H (74-99) mg/dL Calcium 8.2 L (8.4-10.2) mg/dL Microbiology - Last 24 Hours (Table) 07/23/19 21:50 Sputum Culture - Preliminary Sputum 07/21/19 23:20 Blood Culture - Preliminary Blood No Growth after 48 hours 07/21/19 00:07 Urine Culture - Final Urine,Voided Strep agalactiae - (group b) Assessment and Plan (1) Esophageal obstruction due to food impaction Narrative/Plan: Will provide trial of full liquids. Ambulate. Current Visit: Yes Status: Acute Code(s): K22.2 - ESOPHAGEAL OBSTRUCTION; T18.128A - FOOD IN ESOPHAGUS CAUSING OTHER INJURY, INITIAL ENCOUNTER SNOMED Code(s): 215807847
[2019-07-24] MEDS: HYDROmorphone 1 MG/ML 1 ML SYRINGE IVP PRN ×2 (16:45→23:13)
--- NOTE | 2019-07-24 18:15 | P.PN ---
Progress Note - Text Progress Note Date: 07/24/19 - Chief Complaint Cough with fever Consultation: This is a very pleasant 54-year-old patient of Dr. Alexandrea Ang. stable medical conditions include hypertension, , gout, chronic bilateral hip pain, bilateral peripheral neuropathy. Patient had a gastric sleeve [place] [address] Zarate. June 2018 had lysis of adhesions, laparoscopic reduction and repair of incarcerated paraesophageal hiatal hernia with a mesh and takedown of a gastric gastric fistula by Dr. Dumont. At her baseline patient is to walk slowly because of peripheral neuropathy. In August 2018 patient had EGD done that showed severe erosive esophagitis with esophageal ulcer. Patient was r eadmitted recently on July 05 underwent balloon dilatation of 10-7 mm done. Was discharged in clinically liquids. Patient now admitted and underwent EGD by Dr. Carbajal. Again was encountered severe esophagitis and distal esophageal obstruction. A 10 mm dilatation was carried out. Retained food was extracted. Patient also was started having fevers up to 100-103. Has started coughing up yellow sputum. Patient was cultured yesterday. Earlier today patient again taken down to the endoscopy suite. Obstructed. Food Was found in the esophagus. And removed. Patient also found to have sepsis with pneumonia possible aspiration. Started on IV Zosyn. Today-still has some cough. Bringing up some congested sputum. Feels better. That being advanced to full liquids. No epigastric pain. Review of systems: Was done for constitutional, cardiovascular, GI, pulmonary. relevant finding as above Active Medications Albuterol Sulfate (Ventolin Nebulized) 2.5 mg INHALATION RT-QID [facility] Last Admin: 07/24/19 15:45 Dose: 2.5 mg Documented by: Allopurinol (Zyloprim) 300 mg PO DAILY [facility] Last Admin: 07/24/19 07:11 Dose: 300 mg Documented by: Cyclobenzaprine HCl (Flexeril) 10 mg PO BID [facility] Last Admin: 07/24/19 07:12 Dose: 10 mg Documented by: Dexamethasone Sodium Phosphate (Decadron) 4 mg IV Q6HR [facility] Last Admin: 07/24/19 16:43 Dose: 4 mg Documented by: Enoxaparin Sodium (Lovenox) 40 mg SQ HS [facility] Last Admin: 07/23/19 20:12 Dose: 40 mg Documented by: Ergocalciferol (Vitamin D2) 50,000 unit PO MO [facility] Escitalopram Oxalate (Lexapro) 10 mg PO QAM [facility] Last Admin: 07/24/19 07:13 Dose: 10 mg Documented by: Hydromorphone HCl (Dilaudid) 1 mg IVP Q3HR PRN PRN Reason: Moderate to Severe Pain Last Admin: 07/24/19 16:45 Dose: 1 mg Documented by: Piperacillin Sod/Tazobactam (Sod 3.375 gm/ Sodium Chloride) 100 mls @ 25 mls/hr IVPB Q8HR [facility] Last Admin: 07/24/19 15:48 Dose: 25 mls/hr Documented by: Lactated Ringer's (Lactated Ringers) 1,000 mls @ 125 mls/hr IV .Q8H [facility] Last Admin: 07/24/19 15:48 Dose: 125 mls/hr Documented by: Lacosamide (Vimpat) 50 mg PO BID [facility] Last Admin: 07/24/19 09:05 Dose: 50 mg Documented by: Lidocaine HCl (.Xylocaine 1% Inj (10mg/Ml) For Iv Start) 0.1 ml INTRADERMA PER PROTOCOL PRN PRN Reason: IV Start Lisinopril (Zestril) 2.5 mg PO DAILY [facility] Last Admin: 07/24/19 07:12 Dose: 2.5 mg Documented by: Metoclopramide HCl (Reglan) 10 mg IVP Q6H PRN PRN Reason: Nausea And Vomiting Naloxone HCl (Narcan) 0.2 mg IV Q2M PRN PRN Reason: Opioid Reversal Ondansetron HCl (Zofran) 4 mg IVP Q8HR PRN PRN Reason: Nausea And Vomiting Oxycodone/Acetaminophen (Percocet 7.5-325) 1 each PO BID PRN PRN Reason: Pain Pantoprazole Sodium (Protonix) 40 mg IV BID [facility] Last Admin: 07/24/19 07:14 Dose: 40 mg Documented by: Pregabalin (Lyrica) 300 mg PO BID [facility] Last Admin: 07/24/19 07:11 Dose: 300 mg Documented by: Sertraline HCl (Zoloft) 50 mg PO DAILY [facility] Last Admin: 07/24/19 07:11 Dose: 50 mg Documented by: Sucralfate (Carafate) 1 gm PO BID [facility] Last Admin: 07/24/19 07:12 Dose: 1 gm Documented by: Zolpidem Tartrate (Ambien) 10 mg PO HS [facility] Last Admin: 07/23/19 23:17 Dose: 10 mg Documented by: Physical examination: VITAL SIGNS: 97.8, 59, 17, 132/83, 98% room air GENERAL: Sitting upon a chair, more comfortable EYES: Pupils equal. Conjunctiva normal. HEENT: External appearance of nose and ears normal, oral cavity grossly normal. NECK: JVD not raised; masses not palpable. HEART: First and second heart sounds are normal; no edema. LUNGS: Respiratory rate increased, decreased breath sounds, ABDOMEN: Soft, nontender, liver spleen not palpable, no masses palpable. PSYCH: Alert and oriented x3; mood and affect normal. INVESTIGATIONS, reviewed in the clinical context: White count 8.2 hemoglobin 11.8 potassium 4.2 creatinine 0.7 Previous testing White count 3.8 hemoglobin 12.3 platelets 1:30 potassium 3.8 creatinine 0.86 Chest l-gpr-iqarmzi reviewed by me shows multiple lobe infiltrates Assessment: -Multilobar pneumonia, could be aspiration, causing sepsis,, improving -Progressive severe dysphagia to both solids and liquids from recurrent esophageal stricture with dilatation with 10 mm -Severe esophagitis and distal esophageal ulcer., Causing obstruction with food, that was extracted -History of paraesophageal repair and history of sleeve gastrectomy -Essential hypertension -Primary osteoarthritis -Gout -Idiopathic peripheral neuropathy Plan: Continue IV Zosyn. Clinically improving. That is being advanced to full liquids. Discussed with patient. Thank you Dr. Dumont
[2019-07-24] MEDS: D5-0.45% NACL WITH KCL 20MEQ/L 1,000 ML IV SCH (19:40)
[2019-07-24] MEDS: ENOXAPARIN 40 MG/0.4 ML SYRINGE SQ SCH (22:11)
[2019-07-24] MEDS: ZOLPIDEM 10 MG TAB PO SCH (23:10)
[2019-07-25] MEDS: DEXAMETHASONE SOD PHOSPHATE 4 MG/ML 1 ML VIAL IV SCH ×4 (05:27→23:20)
[2019-07-25] MEDS: LACTATED RINGERS 1,000 ML IV SCH ×3 (05:27→21:26)
[2019-07-25] MEDS: LACOSAMIDE 50 MG TABLET PO SCH ×2 (07:01→21:20)
[2019-07-25] MEDS: PREGABALIN 100 MG CAP PO SCH ×2 (07:02→21:21)
[2019-07-25] MEDS: CYCLOBENZAPRINE 10 MG TAB PO SCH ×2 (07:02→21:20)
[2019-07-25] MEDS: LISINOPRIL 2.5 MG TAB PO SCH (07:02)
[2019-07-25] MEDS: SERTRALINE 50 MG TAB PO SCH (07:02)
[2019-07-25] MEDS: ALLOPURINOL 300 MG TAB PO SCH (07:02)
[2019-07-25] MEDS: SUCRALFATE 1 GM TAB PO SCH ×2 (07:02→21:21)
[2019-07-25] MEDS: PANTOPRAZOLE 40 MG/10 ML VIAL IV SCH ×2 (07:03→21:20)
[2019-07-25] MEDS: PIPERACILLIN-TAZOBACTAM 3.375 GM in SODIUM CHLORIDE 0.9% 100 ML IVPB SCH ×3 (07:03→23:24)
[2019-07-25] MEDS: ESCITALOPRAM 10 MG TAB PO SCH (07:03)
[2019-07-25] MEDS: ALBUTEROL NEBULIZED 2.5 MG/3 ML INHALATION SCH ×4 (08:51→20:13)
--- NOTE | 2019-07-25 09:42 | P.PN ---
Subjective Progress Note Date: 07/25/19 Principal diagnosis: Dysphagia Patient doing well today. Tolerating full liquids. No pain. No vomiting. Objective - Vital Signs Vital signs: Vital Signs Temp 98.0 F 07/25/19 07:00 Pulse 62 07/25/19 09:03 Resp 16 07/25/19 07:00 BP 157/93 07/25/19 07:00 Pulse Ox 96 07/25/19 08:52 Intake & Output 07/24/19 07/25/19 07/25/19 18:59 06:59 18:59 Intake Total 750 Output Total 400 2200 900 Balance -400 -1450 -900 Intake: Intake, IV Titration 750 Amount Lactated Ringers 1,000 ml 750 @ 125 mls/hr IV .Q8H [facility] Rx#:[id number] Output: Urine 400 2200 900 Other: Voiding Method Toilet Toilet Urinal Urinal # Voids 1 - Exam Abdomen: Soft, nontender, nondistended - Labs CBC & Chem 7: 07/24/19 06:01 07/24/19 06:01 Labs: Microbiology - Last 24 Hours (Table) 07/23/19 21:50 Gram Stain - Preliminary Sputum Sputum Culture - Preliminary 07/21/19 23:20 Blood Culture - Preliminary Blood No Growth after 72 hours Assessment and Plan (1) Esophageal obstruction due to food impaction Narrative/Plan: Continue full liquids for now. Anticipate discharge tomorrow. Current Visit: Yes Status: Acute Code(s): K22.2 - ESOPHAGEAL OBSTRUCTION; T18.128A - FOOD IN ESOPHAGUS CAUSING OTHER INJURY, INITIAL ENCOUNTER SNOMED Code(s): 686403750
--- NOTE | 2019-07-25 13:32 | P.PN ---
Subjective Progress Note Date: 07/25/19 The patient is seen today for very second 2020 in follow-up on the regular medical floor. He is awake and alert in no acute distress. Up ambulating in his room. No further issues with difficulty in swallowing. No worsening shortness of breath, cough or congestion. Maintaining O2 saturations in the 90s on room air. He remains on albuterol, Decadron, Zosyn. Objective - Vital Signs Vital signs: Vital Signs Temp 98.0 F 07/25/19 07:00 Pulse 61 07/25/19 12:21 Resp 16 07/25/19 07:00 BP 157/93 07/25/19 07:00 Pulse Ox 96 07/25/19 08:52 Intake & Output 07/24/19 07/25/19 07/25/19 18:59 06:59 18:59 Intake Total 750 Output Total 400 2200 900 Balance -400 -1450 -900 Intake: Intake, IV Titration 750 Amount Lactated Ringers 1,000 ml 750 @ 125 mls/hr IV .Q8H [facility] Rx#:[id number] Output: Urine 400 2200 900 Other: Voiding Method Toilet Toilet Toilet Urinal Urinal Urinal # Voids 1 - Exam GENERAL: Well-developed and pleasant 54 year old gentlemann no acute distress. On room air. HEENT: No scleral icterus. Extraocular movements grossly intact. Moist buccal mucosa. NECK: Supple without lymphadenopathy. CHEST: Unlabored respirations. Equal bilateral excursions. The patient has crackles involving the left lung anteriorly. CARDIOVASCULAR:Cardiac exam revealed the PMI to be normally situated and sized. The rhythm was regular and no extrasystoles were noted during several minutes of auscultation. The first and second heart sounds were normal and physiologic splitting of the second heart sound was noted. There were no murmurs, rubs, clicks, or gallops. Abdominal exam revealed normal bowel sounds. The abdomen was soft, non-tender, and without masses, organomegaly, or appreciable enlargement of the abdominal aorta. Examination of the extremities revealed easily palpable radial, femoral and p edal pulses. There was no cyanosis, clubbing or edema. MUSCULOSKELETAL: No clubbing, cyanosis, or edema. Examination of the skin revealed no evidence of significant rashes, suspicious appearing nevi or other concerning lesions. - Labs CBC & Chem 7: 07/24/19 06:01 07/24/19 06:01 Labs: Microbiology - Last 24 Hours (Table) 07/23/19 21:50 Gram Stain - Preliminary Sputum Sputum Culture - Preliminary 07/21/19 23:20 Blood Culture - Preliminary Blood No Growth after 72 hours Assessment and Plan Assessment: 1 left lung pneumonia with extensive consolidation, consider aspiration pneumonia based on the above-mentioned clinical scenario 2 acute hypoxic respiratory failure secondary to above, improved on room air 3 esophageal stricture/ulceration with fluid retention, post EGD 2 with successful dilatation and removal of foreign bodies 4 acid reflux 5 history of gastric sleeve 6 hypertension 7 gout 8 chronic peripheral neuropathy 9 currently bilateral hip pain 10 history of morbid obesity improved following gastric bypass 11 chronic left diaphragmatic elevation 12 history of left lung pneumonia/empyema requiring left thoracotomy with complete decortication back in 2018 Plan The patient was seen and evaluated by Dr. Davidson. He continues to do well from the pulmonary standpoint. On room air. Up ambulating in the room. No acute distress. Probable discharge in the a.m. I, the cosigning physician, performed a history & physical examination of the patient. Lungs sounds with few scattered rhonchi in the left, end expiratory wheeze maintaining good O2 saturations in the 90s on room air. I discussed the assessment and plan of care with my nurse practitioner, Sherrill Sun. I attest to the above note as dictated by her.
[2019-07-25 19:28] VITALS: RESP 12
[2019-07-25] MEDS: ENOXAPARIN 40 MG/0.4 ML SYRINGE SQ SCH (21:20)
--- NOTE | 2019-07-25 22:13 | P.PN ---
Progress Note - Text Progress Note Date: 07/25/19 - Chief Complaint Cough with fever Consultation: This is a very pleasant 54-year-old patient of Dr. Alexandrea Ang. stable medical conditions include hypertension, , gout, chronic bilateral hip pain, bilateral peripheral neuropathy. Patient had a gastric [place] [address] Zarate. June 2018 had lysis of adhesions, laparoscopic reduction and repair of incarcerated paraesophageal hiatal hernia with a mesh and takedown of a gastric gastric fistula by Dr. Dumont. At her baseline patient is to walk slowly because of peripheral neuropathy. In August 2018 patient had EGD done that showed severe erosive esophagitis with esophageal ulcer. Patient was r eadmitted recently on July 05 underwent balloon dilatation of 10-7 mm done. Was discharged in clinically liquids. Patient now admitted and underwent EGD by Dr. Carbajal. Again was encountered severe esophagitis and distal esophageal obstruction. A 10 mm dilatation was carried out. Retained food was extracted. Patient also was started having fevers up to 100-103. Has started coughing up yellow sputum. Patient was cultured yesterday. Earlier today patient again taken down to the endoscopy suite. Obstructed. Food Was found in the esophagus. And removed. Patient also found to have sepsis with pneumonia possible aspiration. Started on IV Zosyn. Today-cough or sputum improving. Had couple of loose stools today. On full liquid diet. Up to the bathroom. Review of systems: Was done for constitutional, cardiovascular, GI, pulmonary. relevant finding as above Active Medications Albuterol Sulfate (Ventolin Nebulized) 2.5 mg INHALATION RT-QID [facility] Last Admin: 07/25/19 20:13 Dose: 2.5 mg Documented by: Allopurinol (Zyloprim) 300 mg PO DAILY [facility] Last Admin: 07/25/19 07:02 Dose: 300 mg Documented by: Cyclobenzaprine HCl (Flexeril) 10 mg PO BID [facility] Last Admin: 07/25/19 21:20 Dose: 10 mg Documented by: Dexamethasone Sodium Phosphate (Decadron) 4 mg IV Q6HR [facility] Last Admin: 07/25/19 17:22 Dose: 4 mg Documented by: Enoxaparin Sodium (Lovenox) 40 mg SQ HS [facility] Last Admin: 07/25/19 21:20 Dose: 40 mg Documented by: Ergocalciferol (Vitamin D2) 50,000 unit PO MO [facility] Escitalopram Oxalate (Lexapro) 10 mg PO QAM [facility] Last Admin: 07/25/19 07:03 Dose: 10 mg Documented by: Hydromorphone HCl (Dilaudid) 1 mg IVP Q3HR PRN PRN Reason: Moderate to Severe Pain Last Admin: 07/24/19 23:13 Dose: 1 mg Documented by: Piperacillin Sod/Tazobactam (Sod 3.375 gm/ Sodium Chloride) 100 mls @ 25 mls/hr IVPB Q8HR [facility] Last Admin: 07/25/19 16:07 Dose: 25 mls/hr Documented by: Lactated Ringer's (Lactated Ringers) 1,000 mls @ 125 mls/hr IV .Q8H [facility] Last Admin: 07/25/19 21:26 Dose: 125 mls/hr Documented by: Lacosamide (Vimpat) 50 mg PO BID [facility] Last Admin: 07/25/19 21:20 Dose: 50 mg Documented by: Lidocaine HCl (.Xylocaine 1% Inj (10mg/Ml) For Iv Start) 0.1 ml INTRADERMA PER PROTOCOL PRN PRN Reason: IV Start Lisinopril (Zestril) 2.5 mg PO DAILY [facility] Last Admin: 07/25/19 07:02 Dose: 2.5 mg Documented by: Metoclopramide HCl (Reglan) 10 mg IVP Q6H PRN PRN Reason: Nausea And Vomiting Naloxone HCl (Narcan) 0.2 mg IV Q2M PRN PRN Reason: Opioid Reversal Ondansetron HCl (Zofran) 4 mg IVP Q8HR PRN PRN Reason: Nausea And Vomiting Oxycodone/Acetaminophen (Percocet 7.5-325) 1 each PO BID PRN PRN Reason: Pain Pantoprazole Sodium (Protonix) 40 mg IV BID [facility] Last Admin: 07/25/19 21:20 Dose: 40 mg Documented by: Pregabalin (Lyrica) 300 mg PO BID [facility] Last Admin: 07/25/19 21:21 Dose: 300 mg Documented by: Sertraline HCl (Zoloft) 50 mg PO DAILY [facility] Last Admin: 07/25/19 07:02 Dose: 50 mg Documented by: Sucralfate (Carafate) 1 gm PO BID [facility] Last Admin: 07/25/19 21:21 Dose: 1 gm Documented by: Zolpidem Tartrate (Ambien) 10 mg PO HS [facility] Last Admin: 07/24/19 23:10 Dose: 10 mg Documented by: Physical examination: VITAL SIGNS: 98.2-66-17-119/60-98% on room air GENERAL: Sitting upon a chair,comfortable EYES: Pupils equal. Conjunctiva normal. HEENT: External appearance of nose and ears normal, oral cavity grossly normal. NECK: JVD not raised; masses not palpable. HEART: First and second heart sounds are normal; no edema. LUNGS: Respiratory rate increased, decreased breath sounds, ABDOMEN: Soft, nontender, liver spleen not palpable, no masses palpable. PSYCH: Alert and oriented x3; mood and affect normal. INVESTIGATIONS, reviewed in the clinical context: White count 8.2 hemoglobin 11.8 potassium 4.2 creatinine 0.7 Previous testing White count 3.8 hemoglobin 12.3 platelets 1:30 potassium 3.8 creatinine 0.86 Chest z-tub-smuzdyd reviewed by me shows multiple lobe infiltrates Assessment: -Multilobar pneumonia, could be aspiration, causing sepsis,, improving -Progressive severe dysphagia to both solids and liquids from recurrent esophageal stricture with dilatation with 10 mm -Severe esophagitis and distal esophageal ulcer., Causing obstruction with food, that was extracted -History of paraesophageal repair and history of sleeve gastrectomy -Essential hypertension -Primary osteoarthritis -Gout -Idiopathic peripheral neuropathy Plan: Continue IV Zosyn. cut back on IV fluids. Check pro calcitonin tomorrow morning. Thank you Dr. Dumont
[2019-07-25] MEDS: ZOLPIDEM 10 MG TAB PO SCH (23:17)
[2019-07-26] MEDS: DEXAMETHASONE SOD PHOSPHATE 4 MG/ML 1 ML VIAL IV SCH (05:26)
[2019-07-26] MEDS: ALBUTEROL NEBULIZED 2.5 MG/3 ML INHALATION SCH ×3 (07:05→15:27)
[2019-07-26] MEDS ORDERED: ERGOCALCIFEROL 50,000 UNIT CAP PO SCH (09:00)
[2019-07-26 09:12] LABS: Basophils % (A) 1 %; Eosinophils % (A) 1 %; HCT 43.9 % (39.0-53.0); HGB 12.8 gm/dL (13.0-17.5); Hypochromasia Marked; Lymphocytes # (A) 0.8 k/uL (1.0-4.8); Lymphocytes % (A) 15 %; MCH 27.7 pg (25.0-35.0); MCHC 29.2 g/dL (31.0-37.0); MCV 94.6 fL (80.0-100.0); Mean Platelet Volume 9.6; Monocytes # (A) 0.2 k/uL (0-1.0); Monocytes % (A) 3 %; Neutrophils % (A) 79 %; Platelet Count 196 k/uL (150-450); RBC 4.64 m/uL (4.30-5.90); RDW 14.6 % (11.5-15.5)
[2019-07-26 09:40] LABS: Magnesium 1.5 mg/dL (1.6-2.3); Phosphorus 2.9 mg/dL (2.5-4.5)
[2019-07-26] MEDS: CYCLOBENZAPRINE 10 MG TAB PO SCH (09:40)
[2019-07-26] MEDS: LISINOPRIL 2.5 MG TAB PO SCH (09:40)
[2019-07-26] MEDS: PANTOPRAZOLE 40 MG/10 ML VIAL IV SCH (09:41)
[2019-07-26] MEDS: SERTRALINE 50 MG TAB PO SCH (09:41)
[2019-07-26] MEDS: SUCRALFATE 1 GM TAB PO SCH (09:41)
[2019-07-26] MEDS: ALLOPURINOL 300 MG TAB PO SCH (09:41)
[2019-07-26] MEDS: PREGABALIN 100 MG CAP PO SCH (09:41)
[2019-07-26] MEDS: ESCITALOPRAM 10 MG TAB PO SCH (09:42)
[2019-07-26] MEDS: PIPERACILLIN-TAZOBACTAM 3.375 GM in SODIUM CHLORIDE 0.9% 100 ML IVPB SCH (09:42)
[2019-07-26] MEDS: LACOSAMIDE 50 MG TABLET PO SCH (09:44)
--- NOTE | 2019-07-26 10:57 | P.DS ---
Providers Date of admission: 07/22/19 15:15 Expected date of discharge: 07/26/19 Attending physician: Alycia Dumont Consults: 07/21/19 19:03 Consult Physician Routine Consulting Provider: Chavez Pedraza Consult Reason/Comments: Medical management Do you want consulting provider notified?: Yes 07/21/19 19:45 Consult Physician Routine Consulting Provider: Dimitri Davidson Consult Reason/Comments: Aspiration pnuemonitis Do you want consulting provider notified?: Yes Primary care physician: [facility] Course: 54-year-old male with history of gastric sleeve with reports of gastroesophageal reflux disease and dysphagia. Patient underwent EGD with Dr. Dumont on July 21 2019 revealing esophageal obstruction with food impaction. His pr ocedure was terminated at that point. His EGD was repeated on 07/22/2019 with dilation performed. Patient was also found to have aspiration pneumonia of the left lung on chest x-ray. Pulmonary was consulted to evaluate patient during hospitalization. He is cleared from their standpoint to be discharged home on 6 more days of Augmentin. Patient reports tolerating liquid diet better since dilation. He is stable for discharge home today. Per Dr. Dumont, patient will likely require outpatient evaluation at tertiary care center for possible esophageal surgery with his concurrent esophageal dysmotility and chronic esophageal obstructions. Please see EMR for further hospital course details. Discharge diagnosis 1. Near-complete esophageal obstruction 2. Chronic esophageal ulcer and stricture 3. Esophageal dysmotility 4. Retained food in the esophagus 5. Intractable nausea and vomiting 6. Aspiration pneumonitis 7. 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 History of aspiration prior to sleeve gastrectomy 9. Chronic dilated esophagus Nurse practitioner note has been reviewed by physician. Signing provider agrees with the documented findings, assessment, and plan of care. Patient Condition at Discharge: Stable Plan - Discharge Summary Discharge Rx Participant: No New Discharge Prescriptions: New Amoxicillin/Potassium Clav [Augmentin 875-125 Tablet] 1 tab PO Q12HR 6 Days #12 tab Continue Escitalopram [Lexapro] 10 mg PO QAM Cyclobenzaprine [Flexeril] 10 mg PO BID Allopurinol [Zyloprim] 300 mg PO DAILY Zolpidem Tartrate [Ambien] 10 mg PO HS Lacosamide [Vimpat] 50 mg PO BID Ergocalciferol (Vitamin D2) [Vitamin D2] 50,000 unit PO MO Lisinopril [Zestril] 2.5 mg PO DAILY Pregabalin [Lyrica] 300 mg PO BID oxyCODONE-APAP 7.5-325MG [Percocet 7.5-325 mg] 1 tab PO BID PRN PRN Reason: Pain Ibuprofen [Motrin] 800 mg PO TID PRN PRN Reason: Pain Sucralfate [Carafate] 1 gm PO BID #60 tablet Omeprazole 40 mg PO BID #60 cap Sertraline [Zoloft] 50 mg PO DAILY Ondansetron [Zofran] 4 mg PO Q6HR PRN PRN Reason: Nausea Furosemide [Lasix] 20 mg PO DAILY Morphine Pain Pump 1.25 mg CONTINUOUS Discharge Medication List Allopurinol [Zyloprim] 300 mg PO DAILY 06/04/16 [History] Cyclobenzaprine [Flexeril] 10 mg PO BID 06/04/16 [History] Escitalopram [Lexapro] 10 mg PO QAM 06/04/16 [History] Lacosamide [Vimpat] 50 mg PO BID 03/25/18 [History] Zolpidem Tartrate [Ambien] 10 mg PO HS 03/25/18 [History] Ergocalciferol (Vitamin D2) [Vitamin D2] 50,000 unit PO MO 06/19/18 [History] Lisinopril [Zestril] 2.5 mg PO DAILY 07/14/18 [History] Pregabalin [Lyrica] 300 mg PO BID 07/17/18 [History] Ibuprofen [Motrin] 800 mg PO TID PRN 07/01/19 [History] oxyCODONE-APAP 7.5-325MG [Percocet 7.5-325 mg] 1 tab PO BID PRN 07/01/19 [History] Omeprazole 40 mg PO BID #60 cap 07/06/19 [Rx] Sucralfate [Carafate] 1 gm PO BID #60 tablet 07/06/19 [Rx] Furosemide [Lasix] 20 mg PO DAILY 07/20/19 [History] Morphine Pain Pump 1.25 mg CONTINUOUS 07/20/19 [History] Ondansetron [Zofran] 4 mg PO Q6HR PRN 07/20/19 [History] Sertraline [Zoloft] 50 mg PO DAILY 07/20/19 [History] Amoxicillin/Potassium Clav [Augmentin 875-125 Tablet] 1 tab PO Q12HR 6 Days #12 tab 07/26/19 [Rx] Follow up Appointment(s)/Referral(s): Alycia Dumont MD [STAFF PHYSICIAN] - 1 Week Dimitri Davidson MD [STAFF PHYSICIAN] - 1 Week
[2019-07-26] MEDS: MAGNESIUM SULFATE-D5W PMX 1 GM in DEXTROSE/WATER 1 100ML.BAG IVPB SCH ×2 (11:00→13:53)
[2019-07-26 15:42] VITALS: BP 149/85; PULSE 64; TEMP 98
--- NOTE | 2019-07-26 21:54 | P.PN ---
Progress Note - Text Progress Note Date: 07/26/19 - Chief Complaint Cough with fever Consultation: This is a very pleasant 54-year-old patient of Dr. Alexandrea Ang. stable medical conditions include hypertension, , gout, chronic bilateral hip pain, bilateral peripheral neuropathy. Patient had a gastric sleeve in [address] Zarate. June 2018 had lysis of adhesions, laparoscopic reduction and repair of incarcerated paraesophageal hiatal hernia with a mesh and takedown of a gastric gastric fistula by Dr. Dumont. At her baseline patient is to walk slowly because of peripheral neuropathy. In August 2018 patient had EGD done that showed severe erosive esophagitis with esophageal ulcer. Patient was r eadmitted recently on July 05 underwent balloon dilatation of 10-7 mm done. Was discharged in clinically liquids. Patient now admitted and underwent EGD by Dr. Carbajal. Again was encountered severe esophagitis and distal esophageal obstruction. A 10 mm dilatation was carried out. Retained food was extracted. Patient also was started having fevers up to 100-103. Has started coughing up yellow sputum. Patient was cultured yesterday. Earlier today patient again taken down to the endoscopy suite. Obstructed. Food Was found in the esophagus. And removed. Patient also found to have sepsis with pneumonia possible aspiration. Started on IV Zosyn. Today-. Much better. Respiratory symptoms greatly improved. Tolerating a full liquid diet. Had some bowel movements. Overall feeling better.. Review of systems: Was done for constitutional, cardiovascular, GI, pulmonary. relevant finding as above Current medications are reviewed in today's electronic records Physical examination: VITAL SIGNS: 98, 69, 20, 149/85, 95% GENERAL: Sitting upon a chair,comfortable EYES: Pupils equal. Conjunctiva normal. HEENT: External appearance of nose and ears normal, oral cavity grossly normal. NECK: JVD not raised; masses not palpable. HEART: First and second heart sounds are normal; no edema. LUNGS: Respiratory rate increased, decreased breath sounds, ABDOMEN: Soft, nontender, liver spleen not palpable, no masses palpable. PSYCH: Alert and oriented x3; mood and affect normal. INVESTIGATIONS, reviewed in the clinical context: White count 5 hemoglobin 12.8 pro calcitonin 1.23 Previous testing White count 3.8 hemoglobin 12.3 platelets 1:30 potassium 3.8 creatinine 0.86 Chest [id number]-[id number] reviewed by me shows multiple lobe infiltrates Assessment: -Multilobar pneumonia, could be aspiration, causing sepsis,, improving -Progressive severe dysphagia to both solids and liquids from recurrent esophageal stricture with dilatation with 10 mm -Severe esophagitis and distal esophageal ulcer., Causing obstruction with food, that was extracted -History of paraesophageal repair and history of sleeve gastrectomy -Essential hypertension -Primary osteoarthritis -Gout -Idiopathic peripheral neuropathy Plan: Overall doing much better. Can be switched over to oral Augmentin. Other medications to continue. Care was discussed with the patient. Thank you Dr. Dumont
--- NOTE | 2019-07-30 14:41 | CDI ---
Documentation Clarification Form Date: 07/30/19 From: Moriah Goel CCS Phone: If you have a question about this query, please contact Diana Oseguera, Bleach Tester at [phone] between 8am and 5pm. Admit Date: 07/22/19 Discharge Date: 07/26/19 Patient Name: Kevin Barbosa Visit Number: [id number] ATTENTION: The Clinical Documentation Specialists (CDI) and [facility] Coding Staff appreciate your assistance in clarifying documentation. Please respond to the clarification below the line at the bottom and electronically sign. The CDI & [facility] Coding staff will review the response and follow-up if needed. Please note: Queries are made part of the Legal Health Record. If you have any questions, please contact the author of this message via ITS. Dear Dr. Dumont, The diagnosis sepsis was documented in the PNs, Consult, but is not noted in subsequent documentation. History/Risk Factors: Asp PNA, Esophageal obstruction, Esophagitis Clinical Indicators: Acute respiratory failure WBC: 10.8, 8.2 Treatment: IV fluid, IV Zosyn 3.375 gm IVPB Q 8hr Please clarify if the sepsis was Present on admission Treated and resolved this admission Ruled out Other, please specify Clinically unable to determine PATIENT DOES NOT MEET SEPSIS CRITERIA. WBC IS LESS THAN 12,000. HR LESS THAN 90. I DO NOT AGREE WITH CLINICAL DOCUMENTATION PER MEDICINE PHOTOGRAPH DEVELOPER'S NOTE SEPSIS IS NOT QUALIFIED. KM 07/30/19 18:58 MTDD
== END 2019-07-26 17:26 | disposition home or self-care (01) | DRG 391 ==
LOC: ORWHC2ENDO 10:18 → 4SSUR 15:36 → ORWHC2ENDO 07-22 15:15
PROVIDERS: ADMIT Surgery Plastic and Reconstructive Surgery; ATTEND Surgery Plastic and Reconstructive Surgery
PROC: 0D738ZZ Dilation of Lower Esophagus, Via Natural or Artificial Opening Endoscopic (ICD-10-PCS; 2019-07-21)
PROC: 0D728ZZ Dilation of Middle Esophagus, Via Natural or Artificial Opening Endoscopic (ICD-10-PCS; principal; 2019-07-22 08:40)
PROC: 0DC38ZZ Extirpation of Matter from Lower Esophagus, Via Natural or Artificial Opening Endoscopic (ICD-10-PCS; principal; 2019-07-22 08:40)
PROC: 0D738ZZ Dilation of Lower Esophagus, Via Natural or Artificial Opening Endoscopic (ICD-10-PCS; principal; 2019-07-22 08:40)
DX: K22.2 Esophageal obstruction (principal); J69.0 Pneumonitis due to inhalation of food and vomit; J96.01 Acute respiratory failure with hypoxia; K22.10 Ulcer of esophagus without bleeding; T18.128A Food in esophagus causing other injury, initial encounter; M19.91 Primary osteoarthritis, unspecified site; I10 Essential (primary) hypertension; M10.9 Gout, unspecified; G89.29 Other chronic pain; M54.9 Dorsalgia, unspecified; Z98.1 Arthrodesis status; F41.9 Anxiety disorder, unspecified; F32.9 Major depressive disorder, single episode, unspecified; K58.9 Irritable bowel syndrome, unspecified; K21.0 Gastro-esophageal reflux disease with esophagitis; G60.9 Hereditary and idiopathic neuropathy, unspecified; K22.4 Dyskinesia of esophagus; M25.551 Pain in right hip; M25.552 Pain in left hip; Z79.899 Other long term (current) drug therapy; Z79.891 Long term (current) use of opiate analgesic; Z86.73 Personal history of transient ischemic attack (TIA), and cerebral infarction without residual deficits; Z87.01 Personal history of pneumonia (recurrent); Z98.890 Other specified postprocedural states; Z86.14 Personal history of Methicillin resistant Staphylococcus aureus infection; Z96.89 Presence of other specified functional implants; Z98.84 Bariatric surgery status; Z86.39 Personal history of other endocrine, nutritional and metabolic disease; Z87.19 Personal history of other diseases of the digestive system; Z87.891 Personal history of nicotine dependence; Z82.49 Family history of ischemic heart disease and other diseases of the circulatory system; Z96.643 Presence of artificial hip joint, bilateral; Z96.612 Presence of left artificial shoulder joint; Z80.1 Family history of malignant neoplasm of trachea, bronchus and lung
CPT/HCPCS: 43247; 43249; 71046; 80048; 82533; 83735; 84100; 84145; 85025; 85027; 87040; 87070; 87086; 87205; 94640; 94760

== ENCOUNTER 2019-07-28 12:49 | Inpatient (IN) | payer MEDICARE, OTHER ==
[2019-07-28] MEDS ORDERED: SODIUM CHLORIDE 0.9% 500 ML 500 ML IV STA (13:11)
[2019-07-28] MEDS ORDERED: SODIUM CHLORIDE 0.9% 1,000 ML IV STA (13:11)
--- NOTE | 2019-07-28 13:15 | ED ---
General Adult HPI - General Chief complaint: Dizziness Stated complaint: dizziness/trouble walking Time Seen by Provider: 07/28/19 12:55 Source: patient, RN notes reviewed, old records reviewed Mode of arrival: wheelchair Limitations: no limitations - History of Present Illness Initial comments: This is a 54-year-old male who presents emergency Department with a history of neuropathy. Patient states she was recently diagnosed with pneumonia and broug ht into the hospital. Patient states she was released on Friday. Patient states he went to see his neurologist today and well-healed was in the office she became very dizzy and lightheaded as if he was given a passout. Patient states earlier in the day had an episode as well and he did fall over but did not hurt himself. Patient states he did not completely pass out but he felt as though he was on the verge. Patient states she had no chest pain. Patient states his shortness of breath is the same as it was when he was diagnosed with pneumonia and has been unchanged. Patient denies any fever chills or cough. Patient denies any palpitations. Patient denies any abdominal pain patient de nies nausea vomiting. Patient states she does have diarrhea. He states she's been having diarrhea for 3 days. States his by mouth intake is gone down over the last couple of days. - Related Data Home Medications Medication Instructions Recorded Confirmed Allopurinol [Zyloprim] 300 mg PO DAILY 06/04/16 07/28/19 Cyclobenzaprine [Flexeril] 10 mg PO BID 06/04/16 07/28/19 Escitalopram [Lexapro] 10 mg PO QAM 06/04/16 07/28/19 Lacosamide [Vimpat] 50 mg PO BID 03/25/18 07/28/19 Zolpidem Tartrate [Ambien] 10 mg PO HS 03/25/18 07/28/19 Ergocalciferol (Vitamin D2) 50,000 unit PO MO 06/19/18 07/28/19 [Vitamin D2] Lisinopril [Zestril] 2.5 mg PO DAILY 07/14/18 07/28/19 Pregabalin [Lyrica] 300 mg PO BID 07/17/18 07/28/19 Ibuprofen [Motrin] 800 mg PO TID PRN 07/01/19 07/28/19 oxyCODONE-APAP 7.5-325MG [Percocet 1 tab PO BID PRN 07/01/19 07/28/19 7.5-325 mg] Furosemide [Lasix] 20 mg PO DAILY 07/20/19 07/28/19 Morphine Pain Pump 1.25 mg CONTINUOUS 07/20/19 07/28/19 Sertraline [Zoloft] 50 mg PO DAILY 07/20/19 07/28/19 Amoxicillin/Potassium Clav 1 tab PO BID 07/28/19 07/28/19 [Augmentin 875-125 Tablet] Previous Rx's Medication Instructions Recorded Omeprazole 40 mg PO BID #60 cap 07/06/19 Sucralfate [Carafate] 1 gm PO BID #60 tablet 07/06/19 Allergies Allergy/AdvReac Type Severity Reaction Status Date / Time No Known Allergies Allergy Verified 07/28/19 14:09 Review of Systems ROS Statement: Those systems with pertinent positive or pertinent negative responses have been documented in the HPI. ROS Other: All systems not noted in ROS Statement are negative. Past Medical History Past Medical History: CVA/TIA, GERD/Reflux, Hypertension, Osteoarthritis (OA), Pneumonia Additional Past Medical History / Comment(s): hiatal hernia, gout, neuropathy marta legs and feet- states feet are numb, some numbness in legs & tingling in hands., chronic back pain., constipation., dysphagia-hx of EGD with dilation. History of Any Multi-Drug Resistant Organisms: MRSA Date of last positivie culture/infection: approx 10 yrs ago MDRO Source:: left hip Past Surgical History: Back Surgery, Bariatric Surgery, Heart Catheterization, Joint Replacement, Orthopedic Surgery Additional Past Surgical History / Comment(s): PAIN PUMP IMPLANTED 07/17/18, HX GASTRIC SLEEVE AND . BILATERAL KNEE arthroscopy, BILATERAL HIP replacement, LEFT SHOULDER replacement, LEFT ACHILES TENDON SX., RIGHT BIG TOE, echocardiolgram, spinal fusion, EGD with dilation., STATES HX OF PNEUMONIA WITH LUNG SURGERY., REPAIR OF HIATAL HERNIA & LYSIS OF ADHESIONS Past Anesthesia/Blood Transfusion Reactions: No Reported Reaction Past Psychological History: Anxiety, Depression Smoking Status: Former smoker Past Alcohol Use History: None Reported Past Drug Use History: None Reported - Past Family History Father Family Medical History: Cancer Additional Family Medical History / Comment(s): lung Mother Family Medical History: Coronary Artery Disease (CAD), Hypertension General Exam - General Exam Comments Initial Comments: GENERAL: Patient is well-developed and well-nourished. Patient is nontoxic and well- hydrated and is in mild distress. ENT: Neck is soft and supple. No significant lymphadenopathy is noted. Oropharynx is clear. Moist mucous membranes. Neck has full range of motion without eliciting any pain. EYES: The sclera were anicteric and conjunctiva were pink and moist. Extraocular movements were intact and pupils were equal round and reactive to light. Eyelids were unremarkable. PULMONARY: Unlabored respirations. Good breath sounds bilaterally. No audible rales rhonchi or wheezing was noted. CARDIOVASCULAR: There is a regular rate and rhythm without any murmurs gallops or rubs. ABDOMEN: Soft and nontender with normal bowel sounds. SKIN: Skin is clear with no lesions or rashes and otherwise unremarkable. NEUROLOGIC: Patient is alert and oriented x3. Cranial nerves II through XII are grossly intact. Motor and sensory are also intact. Normal speech, volume and content. Symmetrical smile. MUSCULOSKELETAL: Normal extremities with adequate strength and full range of motion. 1+ edema bilateral. Patient has no calf tenderness LYMPHATICS: No significant lymphadenopathy is noted PSYCHIATRIC: Normal psychiatric evaluation. Limitations: no limitations Course Vital Signs 07/28/19 07/28/19 07/28/19 12:50 13:14 13:18 Temperature 98.2 F Pulse Rate 93 Pulse Rate [ 85 Sitting [employer] Technician] Pulse Rate [ 88 Standing [employer] Field Technician ] Pulse Rate [ 77 Supine [employer] Field Technician] Respiratory 16 Rate Blood Pressure 90/59 92/59 Blood Pressure 77/51 [Right Arm Sitting] Blood Pressure 68/45 [Right Arm Standing] Blood Pressure 85/60 [Right Arm Supine] O2 Sat by Pulse 98 Oximetry 07/28/19 07/28/19 15:28 15:39 Temperature 98.5 F Pulse Rate 74 Pulse Rate [ Sitting [employer] Field Technician] Pulse Rate [ Standing [employer]inter Field Technician ] Pulse Rate [ Supine [employer] Field Technician] Respiratory 19 Rate Blood Pressure 101/71 109/76 Blood Pressure [Right Arm Sitting] Blood Pressure [Right Arm Standing] Blood Pressure [Right Arm Supine] O2 Sat by Pulse 96 Oximetry Medical Decision Making - Medical Decision Making EKG shows sinus rhythm with occasional PVC at 84 bpm HI interval 240 4 QT Interval 32 QTC Is 451. Patient's EKG Shows No ST Segment Elevation or Depression. Chest x-ray shows no acute normalities. After the patient received a liter and a half of normal saline he was still orthostatic positive both numerically as well as clinically. I spoke with Dr. Pedraza agreed to admit the patient admitted the patient wrote admitting orders. - Lab Data Result diagrams: 07/28/19 13:15 07/28/19 13:15 Lab Results 07/28/19 07/28/19 07/28/19 Range/Units 13:15 13:15 13:15 WBC 8.4 (3.8-10.6) k/uL RBC 4.85 (4.30-5.90) m/uL Hgb 13.7 (13.0-17.5) gm/dL Hct 45.6 (39.0-53.0) % MCV 94.0 (80.0-100.0) fL MCH 28.2 (25.0-35.0) pg MCHC 30.0 L (31.0-37.0) g/dL RDW 15.1 (11.5-15.5) % Plt Count 238 (150-450) k/uL Neutrophils % 68 % Lymphocytes % 20 % Monocytes % 7 % Eosinophils % 3 % Basophils % 1 % Neutrophils # 5.6 (1.3-7.7) k/uL Lymphocytes # 1.7 (1.0-4.8) k/uL Monocytes # 0.6 (0-1.0) k/uL Eosinophils # 0.3 (0-0.7) k/uL Basophils # 0.1 (0-0.2) k/uL Manual Slide Review Performed Hypochromasia Marked Poikilocytosis (manual Present Anisocytosis (manual) Present PT (9.0-12.0) sec INR (<1.2) APTT (22.0-30.0) sec Sodium 141 (137-145) mmol/L Potassium 3.7 (3.5-5.1) mmol/L Chloride 103 (98-107) mmol/L Carbon Dioxide 35 H (22-30) mmol/L Anion Gap 3 mmol/L BUN 18 (9-20) mg/dL Creatinine 0.98 (0.66-1.25) mg/dL Est GFR (CKD-EPI)AfAm >90 (>60 ml/min/1.73 sqM) Est GFR (CKD-EPI)NonAf 87 (>60 ml/min/1.73 sqM) Glucose 63 L (74-99) mg/dL Plasma Lactic Acid Suresh 1.1 (0.7-2.0) mmol/L Calcium 8.0 L (8.4-10.2) mg/dL Magnesium 1.9 (1.6-2.3) mg/dL Total Bilirubin 0.6 (0.2-1.3) mg/dL AST 18 (17-59) U/L ALT 15 (4-49) U/L Alkaline Phosphatase 72 (38-126) U/L Troponin I (0.000-0.034) ng/mL Total Protein 5.9 L (6.3-8.2) g/dL Albumin 3.0 L (3.5-5.0) g/dL 07/28/19 07/28/19 Range/Units 13:15 13:15 WBC (3.8-10.6) k/uL RBC (4.30-5.90) m/uL Hgb (13.0-17.5) gm/dL Hct (39.0-53.0) % MCV (80.0-100.0) fL MCH (25.0-35.0) pg MCHC (31.0-37.0) g/dL RDW (11.5-15.5) % Plt Count (150-450) k/uL Neutrophils % % Lymphocytes % % Monocytes % % Eosinophils % % Basophils % % Neutrophils # (1.3-7.7) k/uL Lymphocytes # (1.0-4.8) k/uL Monocytes # (0-1.0) k/uL Eosinophils # (0-0.7) k/uL Basophils # (0-0.2) k/uL Manual Slide Review Hypochromasia Poikilocytosis (manual Anisocytosis (manual) PT 12.0 (9.0-12.0) sec INR 1.2 H (<1.2) APTT 22.6 (22.0-30.0) sec Sodium (137-145) mmol/L Potassium (3.5-5.1) mmol/L Chloride (98-107) mmol/L Carbon Dioxide (22-30) mmol/L Anion Gap mmol/L BUN (9-20) mg/dL Creatinine (0.66-1.25) mg/dL Est GFR (CKD-EPI)AfAm (>60 ml/min/1.73 sqM) Est GFR (CKD-EPI)NonAf (>60 ml/min/1.73 sqM) Glucose (74-99) mg/dL Plasma Lactic Acid Usresh (0.7-2.0) mmol/L Calcium (8.4-10.2) mg/dL Magnesium (1.6-2.3) mg/dL Total Bilirubin (0.2-1.3) mg/dL AST (17-59) U/L ALT (4-49) U/L Alkaline Phosphatase (38-126) U/L Troponin I <0.012 (0.000-0.034) ng/mL Total Protein (6.3-8.2) g/dL Albumin (3.5-5.0) g/dL Disposition Clinical Impression: Near syncope, Orthostatic hypotension Disposition: ADMITTED IP TO THIS HOSP Referrals: Eric Ang DO [Primary Care Provider] - 1-2 days Time of Disposition: 16:09
[2019-07-28 13:41] LABS: Basophils # (A) 0.1 k/uL (0-0.2); Basophils % (A) 1 %; Eosinophils # (A) 0.3 k/uL (0-0.7); Eosinophils % (A) 3 %; HCT 45.6 % (39.0-53.0); HGB 13.7 gm/dL (13.0-17.5); Hypochromasia Marked; Lymphocytes # (A) 1.7 k/uL (1.0-4.8); Lymphocytes % (A) 20 %; MCH 28.2 pg (25.0-35.0); Monocytes # (A) 0.6 k/uL (0-1.0); Monocytes % (A) 7 %; Neutrophils # (A) 5.6 k/uL (1.3-7.7); Neutrophils % (A) 68 %; Platelet Count 238 k/uL (150-450); RBC 4.85 m/uL (4.30-5.90); RDW 15.1 % (11.5-15.5); WBC 8.4 k/uL (3.8-10.6)
[2019-07-28 13:48] LABS: INR 1.2 (<1.2); Partial Thromboplastin Time 22.6 sec (22.0-30.0)
[2019-07-28 13:54] LABS: ALT 15 U/L (4-49); AST 18 U/L (17-59); African American GFR (CKD) >90 (>60 ml/min/1.73 sqM); Alkaline Phosphatase 72 U/L (38-126); Anion Gap 3 mmol/L; Blood Urea Nitrogen 18 mg/dL (9-20); Carbon Dioxide 35 mmol/L (22-30); Chloride 103 mmol/L (98-107); Glucose 63 mg/dL (74-99); Magnesium 1.9 mg/dL (1.6-2.3); Non-African American GFR(CKD) 87 (>60 ml/min/1.73 sqM); Potassium 3.7 mmol/L (3.5-5.1); Sodium 141 mmol/L (137-145); Total Bilirubin 0.6 mg/dL (0.2-1.3); Total Protein 5.9 g/dL (6.3-8.2)
--- NOTE | 2019-07-28 14:12 | XR ---
EXAMINATION TYPE: XR chest 2V DATE OF EXAM: 07/28/2019 COMPARISON: 07/24/2019 HISTORY: Difficulty breathing TECHNIQUE: Frontal and lateral views of the chest are obtained. FINDINGS: There is no focal air space opacity, pleural effusion, or pneumothorax seen. Cardiomediast inal silhouette is shifted secondary to patient rotation exaggerating the left borders as seen on the prior. The osseous structures are intact. Postsurgical change of the cervical spine is partially v isualized. IMPRESSION: No acute cardiopulmonary process.
[2019-07-28 14:32] LABS: Anisocytosis (M) Present; Poikilocytosis (M) Present
[2019-07-28] MEDS ORDERED: SODIUM CHLORIDE 0.9% 1,000 ML IV ONE (16:10)
[2019-07-28] MEDS: SODIUM CHLORIDE 0.9% 1,000 ML IV ONE ×3 (16:26→16:28)
[2019-07-28] MEDS ORDERED: oxyCODONE-APAP 7.5-325MG 1 EACH TAB PO PRN (19:12)
--- NOTE | 2019-07-28 19:26 | P.HPIM ---
History of Present Illness H&P Date: 07/28/19 Chief Complaint: Dizzy Consultation: This is a very pleasant 54-year-old patient of Dr. Alexandrea Ang. stable medical conditions include hypertension, , gout, chronic bilateral hip pain, peripheral neuropathy. Patient had a gastric sleeve in [address] Zarate. 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 Dumont. At baseline patient is to walk slowly because of peripheral neuropathy. In August 2018 patient had EGD done that showe d severe erosive esophagitis with esophageal ulcer. readmitted July 05 underwent balloon dilatation of 10-7 mm done. admitted July 22 and underwent EGD by Dr. Carbajal. Found-severe esophagi tis and distal esophageal obstruction. A 10 mm dilatation was carried out. Retained food was extracted. Found to have possible aspiration pneumonia bilateral, treat with IV Zosyn-discharge. Dr. Carbajal on Augmentin on July 26. Patient was discharged on a liquid diet. Advance to a soft bland diet yesterday. Patient started feeling dizzy lightheaded. Patient had gone to see his neurologist Dr. Mckinney. Dizzy lightheaded daily passing out. Found to be orthostatic. Patient was sent in here. For orthostatic in the ER again. Given fluid boluses. No focal symptoms. Review of systems: GEN.: Tired EYES: None HEENT: None NECK: None RESPIRATORY: Slight cough CARDIOVASCULAR: None GASTROINTESTINAL: Swallowing better. GENITOURINARY: None MUSCULOSKELETAL: Some joint pains LYMPHATICS: None HEMATOLOGICAL: None PSYCHIATRY: None NEUROLOGICAL: Numbness peripherally Social history: Patient smoked one half a pack a day for more than 20 years. . No alcohol. Past medical history to include: GERD, hypertension, osteoarthritis, hiatal hernia, gout, idiopathic peripheral neuropathy, sleeve gastrectomy, severe esophagitis, esophageal ulcer Physical examination: VITAL SIGNS: 98.2, 93, 16, 90/59, 98% room air, orthostatics positive GENERAL: BMI 30.6 laying in bed awake EYES: Pupils equal. Conjunctiva normal. HEENT: External appearance of nose and ears normal, oral cavity grossly normal. NECK: JVD not raised; masses not palpable. HEART: First and second heart sounds are normal; no edema. LUNGS: Respiratory rate normal, decreased breath sounds. ABDOMEN: Soft, nontender, liver spleen not palpable, no masses palpable. PSYCH: Alert and oriented x3; mood and affect normal. NEUROLOGICAL: Cranial nerves grossly intact; no facial asymmetry, power and sensation grossly intact. LYMPHATICS: No lymph nodes palpable in the axilla and neck INVESTIGATIONS, reviewed in the clinical context: White count 8.4 hemoglobin 13.7 platelets 238 potassium 3.7 bun 18 creatinine 0.98 Assessment: -Symptomatic orthostatics, due to decreased oral intake. -recurrent esophageal stricture with recurrent dilatation -Severe esophagitis and distal esophageal ulcer., Causing obstruction with food, that was extracted on the last admission -History of paraesophageal repair and history of sleeve gastrectomy -Essential hypertension -Primary osteoarthritis -Gout -Idiopathic peripheral neuropathy Plan: Patient given fluid boluses. Being admitted. We will discontinue patient's lisinopril and Lasix. Also patient's ibuprofen be discontinued. Continue with fluid boluses. Patient be advanced to soft bland diet. Discussed with the patient. DVT prophylaxis. Past Medical History Past Medical History: CVA/TIA, GERD/Reflux, Hypertension, Osteoarthritis (OA), Pneumonia Additional Past Medical History / Comment(s): hiatal hernia, gout, neuropathy amrta legs and feet- states feet are numb, some numbness in legs & tingling in hands., chronic back pain., constipation., dysphagia-hx of EGD with dilation. History of Any Multi-Drug Resistant Organisms: MRSA Date of last positivie culture/infection: approx 10 yrs ago MDRO Source:: left hip Past Surgical History: Back Surgery, Bariatric Surgery, Heart Catheterization, Joint Replacement, Orthopedic Surgery Additional Past Surgical History / Comment(s): PAIN PUMP IMPLANTED 07/17/18, HX GASTRIC SLEEVE AND . BILATERAL KNEE arthroscopy, BILATERAL HIP replacement, LEFT SHOULDER replacement, LEFT ACHILES TENDON SX., RIGHT BIG TOE, echocardiolgram, spinal fusion, EGD with dilation., STATES HX OF PNEUMONIA WITH LUNG SURGERY., REPAIR OF HIATAL HERNIA & LYSIS OF ADHESIONS Past Anesthesia/Blood Transfusion Reactions: No Reported Reaction Past Psychological History: Anxiety, Depression Smoking Status: Former smoker Past Alcohol Use History: None Reported Additional Past Alcohol Use History / Comment(s): quit smoking 2017, smoked since age 21, 1 PPD Past Drug Use History: None Reported - Past Family History Father Family Medical History: Cancer Additional Family Medical History / Comment(s): lung Mother Family Medical History: Coronary Artery Disease (CAD), Hypertension Medications and Allergies Home Medications Medication Instructions Recorded Confirmed Type Allopurinol [Zyloprim] 300 mg PO DAILY 06/04/16 07/28/19 History Cyclobenzaprine [Flexeril] 10 mg PO BID 06/04/16 07/28/19 History Escitalopram [Lexapro] 10 mg PO QAM 06/04/16 07/28/19 History Lacosamide [Vimpat] 50 mg PO BID 03/25/18 07/28/19 History Zolpidem Tartrate [Ambien] 10 mg PO HS 03/25/18 07/28/19 History Ergocalciferol (Vitamin D2) 50,000 unit PO MO 06/19/18 07/28/19 History [Vitamin D2] Lisinopril [Zestril] 2.5 mg PO DAILY 07/14/18 07/28/19 History Pregabalin [Lyrica] 300 mg PO BID 07/17/18 07/28/19 History Ibuprofen [Motrin] 800 mg PO TID PRN 07/01/19 07/28/19 History oxyCODONE-APAP 7.5-325MG [Percocet 1 tab PO BID PRN 07/01/19 07/28/19 History 7.5-325 mg] Omeprazole 40 mg PO BID #60 cap 07/06/19 07/28/19 Rx Sucralfate [Carafate] 1 gm PO BID #60 tablet 07/06/19 07/28/19 Rx Furosemide [Lasix] 20 mg PO DAILY 07/20/19 07/28/19 History Morphine Pain Pump 1.25 mg CONTINUOUS 07/20/19 07/28/19 History Sertraline [Zoloft] 50 mg PO DAILY 07/20/19 07/28/19 History Amoxicillin/Potassium Clav 1 tab PO BID 07/28/19 07/28/19 History [Augmentin 875-125 Tablet] Allergies Allergy/AdvReac Type Severity Reaction Status Date / Time No Known Allergies Allergy Verified 07/28/19 14:09 Physical Exam Vitals: Vital Signs Temp Pulse Pulse Pulse Pulse Pulse Resp 07/28/19 17:36 97.9 F 70 18 07/28/19 17:20 80 18 07/28/19 15:39 07/28/19 15:28 98.5 F 74 19 07/28/19 13:18 85 88 77 07/28/19 13:14 07/28/19 12:50 98.2 F 93 16 BP BP BP BP BP Pulse Ox 07/28/19 17:36 121/77 94 L 07/28/19 17:20 98/67 98 07/28/19 15:39 109/76 07/28/19 15:28 101/71 96 07/28/19 13:18 77/51 68/45 85/60 07/28/19 13:14 92/59 07/28/19 12:50 90/59 98 Intake and Output 07/28/19 07/28/19 07/28/19 06:59 14:59 22:59 Intake Total 120 Balance 120 Intake: Oral 120 Other: Voiding Method Toilet Weight 113.852 kg 113.852 kg Results CBC & Chem 7: 07/28/19 13:15 07/28/19 13:15 Labs: Abnormal Lab Results - Last 24 Hours (Table) 07/28/19 07/28/19 07/28/19 Range/Units 13:15 13:15 13:15 MCHC 30.0 L (31.0-37.0) g/dL INR 1.2 H (<1.2) Carbon Dioxide 35 H (22-30) mmol/L Glucose 63 L (74-99) mg/dL Calcium 8.0 L (8.4-10.2) mg/dL Total Protein 5.9 L (6.3-8.2) g/dL Albumin 3.0 L (3.5-5.0) g/dL Thrombosis Risk Factor Assmnt - Choose All That Apply Any of the Below Risk Factors Present?: Yes Each Factor Represents 1 point: Age 41-60 years Other Risk Factors: No Thrombosis Risk Factor Assessment Total Risk Factor Score: 1 Thrombosis Risk Factor Assessment Level: Low Risk
[2019-07-28] MEDS: LACTATED RINGERS 1,000 ML IV SCH (20:54)
[2019-07-28] MEDS: PREGABALIN 100 MG CAP PO SCH (20:55)
[2019-07-28] MEDS: LACOSAMIDE 50 MG TABLET PO SCH (20:56)
[2019-07-28] MEDS: ZOLPIDEM 10 MG TAB PO SCH (20:56)
[2019-07-28] MEDS: CYCLOBENZAPRINE 10 MG TAB PO SCH (20:56)
[2019-07-28] MEDS: ENOXAPARIN 40 MG/0.4 ML SYRINGE SQ SCH (21:11)
[2019-07-28] MEDS: SUCRALFATE 1 GM TAB PO SCH (21:12)
[2019-07-28] MEDS: PANTOPRAZOLE 40 MG TABLET PO SCH (21:12)
[2019-07-28] MEDS: AMOXIC-POT CLAV 875-125MG 1 EACH TAB PO SCH (21:12)
[2019-07-28 22:43] LABS: Appearance,Urine Clear (Clear); Bilirubin,Urine Negative (Negative); Blood,Urine Negative (Negative); Color,Urine Yellow; Glucose,Urine (UA) Negative (Negative); Ketones,Urine Negative (Negative); Leukocyte Esterase,Urine Negative (Negative); Nitrite,Urine Negative (Negative); Protein,Urine Negative (Negative); Specific Gravity,Urine 1.015 (1.001-1.035); Urobilinogen,Urine <2.0 mg/dL (<2.0)
[2019-07-29 07:31] VITALS: RESP 18
[2019-07-29] MEDS: ENOXAPARIN 40 MG/0.4 ML SYRINGE SQ SCH (08:10)
[2019-07-29] MEDS: PREGABALIN 100 MG CAP PO SCH ×2 (08:11→20:43)
[2019-07-29] MEDS: PANTOPRAZOLE 40 MG TABLET PO SCH ×2 (08:11→17:31)
[2019-07-29] MEDS: SUCRALFATE 1 GM TAB PO SCH ×2 (08:11→20:44)
[2019-07-29] MEDS: LACOSAMIDE 50 MG TABLET PO SCH ×2 (08:11→20:43)
[2019-07-29] MEDS: CYCLOBENZAPRINE 10 MG TAB PO SCH ×2 (08:11→20:43)
[2019-07-29] MEDS: SERTRALINE 50 MG TAB PO SCH (08:12)
[2019-07-29] MEDS: ALLOPURINOL 300 MG TAB PO SCH (08:12)
[2019-07-29] MEDS: AMOXIC-POT CLAV 875-125MG 1 EACH TAB PO SCH (08:12)
[2019-07-29] MEDS: ESCITALOPRAM 10 MG TAB PO SCH (08:12)
--- NOTE | 2019-07-29 08:50 | XR ---
EXAMINATION TYPE: XR shoulder complete RT DATE OF EXAM: 07/29/2019 CLINICAL HISTORY: Right shoulder pain. TECHNIQUE: Three views of the right shoulder are obtained. COMPARISON: None. FINDINGS: There is no acute fracture/dislocation evident in the right shoulder. The acromioclavicul ar and glenohumeral joint spaces appear aligned. There is suggestion of an os acromiale and small mar ginal osteophytes of the acromioclavicular joint. Osteophytes are also seen of the medial and lateral humeral head. The visualized ribs are intact and unremarkable. IMPRESSION: 1. No acute fracture or dislocation in the right shoulder. 2. Mild to moderate glenohumeral and acromioclavicular arthropathy with probable os acromiale.
[2019-07-29] MEDS: LACTATED RINGERS 1,000 ML IV SCH ×3 (10:03→20:37)
--- NOTE | 2019-07-29 11:24 | XR ---
EXAMINATION TYPE: XR chest 2V DATE OF EXAM: 07/29/2019 COMPARISON: 07/28/2019 HISTORY: Cough and congestion TECHNIQUE: Frontal and lateral views of the chest are obtained. FINDINGS: There is no focal air space opacity, pleural effusion, or pneumothorax seen. Left heart b order and mediastinal border are exaggerated given patient rotation similar to the prior. The cardiac silhouette size is within normal limits. The osseous structures are intact. Post surgical change o f the cervical spine. IMPRESSION: No acute cardiopulmonary process. Mediastinal rotation, secondary to patient positioning , is similar to the prior.
[2019-07-29] MEDS: PIPERACILLIN-TAZOBACTAM 3.375 GM in SODIUM CHLORIDE 0.9% 100 ML IVPB SCH ×2 (13:24→20:49)
[2019-07-29] MEDS: METOPROLOL TARTRATE 25 MG TAB PO SCH (13:29)
--- NOTE | 2019-07-29 13:35 | P.CRDCN ---
History of Present Illness History of present illness: HISTORY OF PRESENTING ILLNESS This is a pleasant 54-year-old -[place] male past medical history significant for nonischemic cardiomyopathy, mild nonobstructive coronary artery disease, hypertension, dysphagia and esophagitis status post dilation, gastric sleeve procedure and former nicotine dependence. He follows in the office with Dr. Sheffield. We have been asked to see in consultation for ventricular tachycardia. He presented to the hospital yesterday with symptoms of dizziness. He states he was at his neurologist office and when he was attempting to get up from the waiting room and walked back to the exam room he felt like the room was spinning and he was extremely lightheaded. He states it felt like he was going to pass out. Every time he stood up too changes positions his symptoms recurred. He denies associated chest pain, shortness of breath or palpitations. He states in the previous couple weeks he has had poor oral intake and has been dehydrated secondary to dysphagia. He did recently undergo an esophageal dilation with Dr. Dumont. Telemetry tracings reveal this morning that he had an episode of nonsustained ventricular tachycardia that was monomorphic in nature and 13 beats long. He was asymptomatic at the time. Orthostatic vital signs obtained on admission were positive. He was hydrated with fluids and he has orthostatic changes have improved. He is seen and examined sitting up in bed eating lunch in no acute distress. He denies any further symptoms of dizziness. DIAGNOSTICS EKG reveals sinus mechanism with frequent PVCs, nonspecific T wave abnormalities noted. Chest xray negative for an acute cardiopulmonary process. Laboratory reviewed, CBC unremarkable, sodium 141, potassium 3.7, creatinine 0.98, magnesium 1.9, cardiac enzymes negative 1. Current cardiac medications include Lasix 20 mg daily and lisinopril 2.5 mg daily. He underwent cardiac catheterization June 2018 secondary to abnormal echocardiogram and stress test revealing overall normal coronary arteries with a small area of nonobstructive disease noted in the mid LAD approximately 20-30%. At that time an echocardiogram performed reveals impaired LV systolic function with ejection fraction 40-45%. REVIEW OF SYSTEMS At the time of my exam: CONSTITUTIONAL: Denies fever or chills. CARDIOVASCULAR: Denies chest pain, shortness of breath, orthopnea, PND or palpitations. RESPIRATORY: Denies cough. GASTROINTESTINAL: Denies abdominal pain, diarrhea, constipation, nausea or vomiting. MUSCULOSKELETAL: Denies myalgias. NEUROLOGIC: Denies numbness, tingling or weakness. ENDOCRINE: Denies fatigue, weight change, polydipsia or polyurina. GENITOURINARY: Denies burning, hematuria or urgency with micturation. HEMATOLOGIC: Denies history of anemia or bleeding. PHYSICAL EXAMINATION Blood pressure 102/73 heart rate 65 afebrile and maintaining oxygen saturation on room air. CONSTITUTIONAL: No apparent distress. HEENT: Head is normocephalic. Pupils are equal, round. Sclerae anicteric. Mucous membranes of the mouth are moist. No JVD. No carotid bruit. CHEST EXAMINATION: Lungs are clear to auscultation. No chest wall tenderness is noted on palpation or with deep breathing. HEART EXAMINATION: Regular rate and rhythm. S1, S2 heard. No murmurs, gallops or rub. ABDOMEN: Soft, nontender. Positive bowel sounds. EXTREMITIES: 2+ peripheral pulses, no lower extremity edema and no calf tenderness. NEUROLOGIC EXAMINATION: Patient is awake, alert and oriented x3. ASSESSMENT Nonsustained monomorphic ventricular tachycardia Orthostatic hypotension, improved Acute dehydration secondary to poor oral intake Nonischemic cardiomyopathy Hypertension Chronic dysphagia status post esophageal dilation PLAN Discontinue Lasix. Initiate Lopressor 25 mg daily. Continue lisinopril 2.5 mg at bedtime. Obtain 2-D echocardiogram and Doppler study to assess cardiac structure and function. Check TSH. Continue IV hydration. Continue to monitor on telemetry for another 24 hours. Thank you kindly for this consultation. Nurse Practitioner note has been reviewed, I agree with a documented findings and plan of care. Patient was seen and examined. Past Medical History Past Medical History: CVA/TIA, GERD/Reflux, Hypertension, Osteoarthritis (OA), Pneumonia Additional Past Medical History / Comment(s): hiatal hernia, gout, neuropathy marta legs and feet- states feet are numb, some numbness in legs & tingling in hands., chronic back pain., constipation., dysphagia-hx of EGD with dilation. History of Any Multi-Drug Resistant Organisms: MRSA Date of last positivie culture/infection: approx 10 yrs ago MDRO Source:: left hip Past Surgical History: Back Surgery, Bariatric Surgery, Heart Catheterization, Joint Replacement, Orthopedic Surgery Additional Past Surgical History / Comment(s): PAIN PUMP IMPLANTED 07/17/18, HX GASTRIC SLEEVE AND . BILATERAL KNEE arthroscopy, BILATERAL HIP replacement, LEFT SHOULDER replacement, LEFT ACHILES TENDON SX., RIGHT BIG TOE, echocardiolgram, spinal fusion, EGD with dilation., STATES HX OF PNEUMONIA WITH LUNG SURGERY., REPAIR OF HIATAL HERNIA & LYSIS OF ADHESIONS Past Anesthesia/Blood Transfusion Reactions: No Reported Reaction Past Psychological History: Anxiety, Depression Smoking Status: Former smoker Past Alcohol Use History: None Reported Additional Past Alcohol Use History / Comment(s): quit smoking 2018, smoked since age 21, 1 PPD Past Drug Use History: None Reported - Past Family History Father Family Medical History: Cancer Additional Family Medical History / Comment(s): lung Mother Family Medical History: Coronary Artery Disease (CAD), Hypertension Medications and Allergies Home Medications Medication Instructions Recorded Confirmed Type Allopurinol [Zyloprim] 300 mg PO DAILY 06/04/16 07/28/19 History Cyclobenzaprine [Flexeril] 10 mg PO BID 06/04/16 07/28/19 History Escitalopram [Lexapro] 10 mg PO QAM 06/04/16 07/28/19 History Lacosamide [Vimpat] 50 mg PO BID 03/25/18 07/28/19 History Zolpidem Tartrate [Ambien] 10 mg PO HS 03/25/18 07/28/19 History Ergocalciferol (Vitamin D2) 50,000 unit PO MO 06/19/18 07/28/19 History [Vitamin D2] Lisinopril [Zestril] 2.5 mg PO DAILY 07/14/18 07/28/19 History Pregabalin [Lyrica] 300 mg PO BID 07/17/18 07/28/19 History Ibuprofen [Motrin] 800 mg PO TID PRN 07/01/19 07/28/19 History oxyCODONE-APAP 7.5-325MG [Percocet 1 tab PO BID PRN 07/01/19 07/28/19 History 7.5-325 mg] Omeprazole 40 mg PO BID #60 cap 07/06/19 07/28/19 Rx Sucralfate [Carafate] 1 gm PO BID #60 tablet 07/06/19 07/28/19 Rx Furosemide [Lasix] 20 mg PO DAILY 07/20/19 07/28/19 History Morphine Pain Pump 1.25 mg CONTINUOUS 07/20/19 07/28/19 History Sertraline [Zoloft] 50 mg PO DAILY 07/20/19 07/28/19 History Amoxicillin/Potassium Clav 1 tab PO BID 07/28/19 07/28/19 History [Augmentin 875-125 Tablet] Allergies Allergy/AdvReac Type Severity Reaction Status Date / Time No Known Allergies Allergy Verified 07/28/19 14:09 Physical Exam Vitals: Vital Signs Temp Pulse Pulse Pulse Pulse Pulse Pulse 07/29/19 11:05 98.2 F 73 07/29/19 07:26 07/29/19 07:05 97.8 F 65 07/29/19 04:00 98.1 F 65 70 85 88 77 07/28/19 23:20 07/28/19 22:37 97.6 F 68 07/28/19 19:24 97.7 F 76 07/28/19 19:20 07/28/19 17:36 97.9 F 70 07/28/19 17:20 80 07/28/19 15:39 07/28/19 15:28 98.5 F 74 Resp BP BP BP BP Pulse Ox 07/29/19 11:05 18 120/73 94 L 07/29/19 07:26 92 L 07/29/19 07:05 18 102/73 93 L 07/29/19 04:00 20 98/60 92 L 07/28/19 23:20 18 07/28/19 22:37 18 109/79 97 07/28/19 19:24 18 95/60 93 L 07/28/19 19:20 18 07/28/19 17:36 18 121/77 94 L 07/28/19 17:20 18 98/67 98 07/28/19 15:39 109/76 07/28/19 15:28 19 101/71 96 Intake and Output 07/28/19 07/29/19 07/29/19 22:59 06:59 14:59 Intake Total 360 440 Output Total 300 Balance 360 -300 440 Intake: Oral 360 240 Other 200 Output: Urine 300 Other: Voiding Method Toilet Toilet # Voids 1 1 Weight 113.852 kg 112.5 kg Results 07/28/19 13:15 07/28/19 13:15 Cardiac Enzymes 07/28/19 07/28/19 Range/Units 13:15 13:15 AST 18 (17-59) U/L Troponin I <0.012 (0.000-0.034) ng/mL Coagulation 07/28/19 Range/Units 13:15 PT 12.0 (9.0-12.0) sec APTT 22.6 (22.0-30.0) sec CBC 07/28/19 Range/Units 13:15 WBC 8.4 (3.8-10.6) k/uL RBC 4.85 (4.30-5.90) m/uL Hgb 13.7 (13.0-17.5) gm/dL Hct 45.6 (39.0-53.0) % Plt Count 238 (150-450) k/uL Comprehensive Metabolic Panel 07/28/19 Range/Units 13:15 Sodium 141 (137-145) mmol/L Potassium 3.7 (3.5-5.1) mmol/L Chloride 103 (98-107) mmol/L Carbon Dioxide 35 H (22-30) mmol/L BUN 18 (9-20) mg/dL Creatinine 0.98 (0.66-1.25) mg/dL Glucose 63 L (74-99) mg/dL Calcium 8.0 L (8.4-10.2) mg/dL AST 18 (17-59) U/L ALT 15 (4-49) U/L Alkaline Phosphatase 72 (38-126) U/L Total Protein 5.9 L (6.3-8.2) g/dL Albumin 3.0 L (3.5-5.0) g/dL Current Medications Generic Name Dose Route Start Last Admin Trade Name Vladimir PRN Reason Stop Dose Admin Allopurinol 300 mg 07/29/19 09:00 07/29/19 08:12 Zyloprim PO 300 mg DAILY MATT Administration Cyclobenzaprine HCl 10 mg 07/28/19 21:00 07/29/19 08:11 Flexeril PO 10 mg BID MATT Administration Enoxaparin Sodium 40 mg 07/28/19 19:15 07/29/19 08:10 Lovenox SQ 40 mg DAILY MATT Administration Escitalopram Oxalate 10 mg 07/29/19 09:00 07/29/19 08:12 Lexapro PO 10 mg QAM MATT Administration Lactated Ringer's 1,000 mls @ 125 mls/hr 07/28/19 19:30 07/29/19 10:03 Lactated Ringers IV Not Given .Q8H MATT Piperacillin Sod/Tazobactam 100 mls @ 25 mls/hr 07/29/19 12:00 07/29/19 13:24 Sod 3.375 gm/ Sodium Chloride IVPB 25 mls/hr Q8H MATT Administration Lacosamide 50 mg 07/28/19 21:00 07/29/19 08:11 Vimpat PO 50 mg BID MATT Administration Metoprolol Tartrate 25 mg 07/29/19 12:30 Lopressor PO DAILY MATT Oxycodone/Acetaminophen 1 each 07/28/19 19:12 07/29/19 08:10 Percocet 7.5-325 PO 1 each BID PRN Administration Pain Pantoprazole Sodium 40 mg 07/28/19 21:00 07/29/19 08:11 Protonix PO 40 mg AC-BID MATT Administration Pregabalin 300 mg 07/28/19 21:00 07/29/19 08:11 Lyrica PO 300 mg BID MATT Administration Sertraline HCl 50 mg 07/29/19 09:00 07/29/19 08:12 Zoloft PO 50 mg DAILY MATT Administration Sucralfate 1 gm 07/28/19 21:00 07/29/19 08:11 Carafate PO 1 gm BID MATT Administration Zolpidem Tartrate 10 mg 07/28/19 21:00 07/28/19 20:56 Ambien PO 10 mg HS MATT Administration Intake and Output 07/28/19 07/29/19 07/29/19 22:59 06:59 14:59 Intake Total 360 440 Output Total 300 Balance 360 -300 440 Intake: Oral 360 240 Other 200 Output: Urine 300 Other: Voiding Method Toilet Toilet # Voids 1 1 Weight 113.852 kg 112.5 kg 07/28/19 13:15 07/28/19 13:15
--- NOTE | 2019-07-29 15:46 | P.GSCN ---
History of Present Illness Consult date: 07/29/19 History of present illness: CHIEF COMPLAINT: Vertigo HISTORY OF PRESENT ILLNESS: The patient is a 54-year-old male recently discharged 3 days ago secondary to acute on chronic esophageal obstruction. At the time of his hospitalization he did have aspiration pneumonia which has now resolved. He reports going to his neurologist and having severe dizziness. Reports been hypotensive with blood pressure systolic in the 70s. Since admission, blood pressure systolic now 100s. He does report taking his anti- hypertensive medications. No further ports of dysphagia. He is tolerating pills. He is currently on a liquid and pured diet. PAST MEDICAL HISTORY: Please see list. PAST SURGICAL HISTORY: Please see list. MEDICATIONS: Please see list. ALLERGIES: Please see list. SOCIAL HISTORY: No illicit drug use FAMILY HISTORY: No reports of Crohn disease or ulcerative colitis. REVIEW OF ORGAN SYSTEMS: CONSTITUTIONAL: Denies any fever or chills. He has gained 3 pounds. HEENT: Denies any trouble with vision, hearing or nosebleeds. Chronic history of dysphagia improved since last discharge LYMPHATIC: The patient denies any lumps and bumps around the neck. ENDOCRINE: Has thyroid disorders. Pre-existing diabetes resolved RESPIRATORY: History of recurrent aspiration pneumonia. CARDIOVASCULAR: Denies any chest pain, palpitations, or recent heart attacks. GASTROINTESTINAL: Denies constipation or bright red blood per rectum. History of esophageal ulcers currently on Protonix and Carafate GENITOURINARY: Denies any blood in urine or increased urinary frequency. MUSCULOSKELETAL: Has back pain, stiffness, joint arthritis. NEUROLOGIC: Has numbness or tingling along the distal extremities. No seizure disorders or headaches. PSYCHIATRIC: Has depression. No suidical ideation. HEMATOLOGIC: Denies any abnormal bleeding or bruising. BREASTS: Denies any breast lumps, pain or nipple discharge. PHYSICAL EXAM: VITALS: Reviewed CONSTITUTIONAL: Well developed and in no acute distress. EYES: Conjuctivae without sclera icterus. Pupils are equally round and reactive to light. Extraocular movements grossly intact. HEAD, EARS, NOSE, THROAT: Moist buccal mucosa. Head is atraumatic, normocephalic. Hears conversational speech. No nasal drainage. NECK: Supple. No JV distention. No thyroidomegaly. RESPIRATORY: Non-labored respirations and equal bilateral excursions. No gross wheezes. CARDIOVASCULAR: Regular rate and rhythm. Extremities without moderate edema. Palpable 2+ radial pulses. ABDOMEN: Soft. Non-tender. Nondistended. LYMPH: No neck lymphadenopathy. No axillary lymphadenopathy. MUSCULOSKELETAL: Nail and fingers with good capillary refill. SKIN: Warm and well perfused with good skin turgor. NEUROLOGIC: Cranial nerves I through XII grossly intact. Sensation upper and extremities intact. No focal or lateralizing signs. PSYCH: Appropriate affect. Alert and oriented to person, place and time. Displays appropriate insight. STUDIES: Chest x-ray report reviewed demonstrating no residual pneumonia LABS: WBC normal ASSESSMENT: 1. Orthostatic hypotension 2. History of esophageal obstruction, improved PLAN: 1. Continue liquid and pured diet 2. Recommend assessment of adrenal insufficiency and cortisol levels 3. Avoid hypertensive medications 4. No surgical intervention Past Medical History Past Medical History: CVA/TIA, GERD/Reflux, Hypertension, Osteoarthritis (OA), Pneumonia Additional Past Medical History / Comment(s): hiatal hernia, gout, neuropathy marta legs and feet- states feet are numb, some numbness in legs & tingling in hands., chronic back pain., constipation., dysphagia-hx of EGD with dilation. History of Any Multi-Drug Resistant Organisms: MRSA Year Discovered:: approx 10 yrs ago MDRO Source:: left hip Past Surgical History: Back Surgery, Bariatric Surgery, Heart Catheterization, Joint Replacement, Orthopedic Surgery Additional Past Surgical History / Comment(s): PAIN PUMP IMPLANTED 07/17/18, HX GASTRIC SLEEVE AND . BILATERAL KNEE arthroscopy, BILATERAL HIP replacement, LEFT SHOULDER replacement, LEFT ACHILES TENDON SX., RIGHT BIG TOE, echocardiolgram, spinal fusion, EGD with dilation., STATES HX OF PNEUMONIA WITH LUNG SURGERY., REPAIR OF HIATAL HERNIA & LYSIS OF ADHESIONS Past Anesthesia/Blood Transfusion Reactions: No Reported Reaction Past Psychological History: Anxiety, Depression Smoking Status: Former smoker Past Alcohol Use History: None Reported Additional Past Alcohol Use History / Comment(s): quit smoking 2017, smoked s sue age 21, 1 PPD Past Drug Use History: None Reported - Past Family History Father Family Medical History: Cancer Additional Family Medical History / Comment(s): lung Mother Family Medical History: Coronary Artery Disease (CAD), Hypertension Medications and Allergies Home Medications Medication Instructions Recorded Confirmed Type Allopurinol [Zyloprim] 300 mg PO DAILY 06/04/16 07/28/19 History Cyclobenzaprine [Flexeril] 10 mg PO BID 06/04/16 07/28/19 History Escitalopram [Lexapro] 10 mg PO QAM 06/04/16 07/28/19 History Lacosamide [Vimpat] 50 mg PO BID 03/25/18 07/28/19 History Zolpidem Tartrate [Ambien] 10 mg PO HS 03/25/18 07/28/19 History Ergocalciferol (Vitamin D2) 50,000 unit PO MO 06/19/18 07/28/19 History [Vitamin D2] Lisinopril [Zestril] 2.5 mg PO DAILY 07/14/18 07/28/19 History Pregabalin [Lyrica] 300 mg PO BID 07/17/18 07/28/19 History Ibuprofen [Motrin] 800 mg PO TID PRN 07/01/19 07/28/19 History oxyCODONE-APAP 7.5-325MG [Percocet 1 tab PO BID PRN 07/01/19 07/28/19 History 7.5-325 mg] Omeprazole 40 mg PO BID #60 cap 07/06/19 07/28/19 Rx Sucralfate [Carafate] 1 gm PO BID #60 tablet 07/06/19 07/28/19 Rx Furosemide [Lasix] 20 mg PO DAILY 07/20/19 07/28/19 History Morphine Pain Pump 1.25 mg CONTINUOUS 07/20/19 07/28/19 History Sertraline [Zoloft] 50 mg PO DAILY 07/20/19 07/28/19 History Amoxicillin/Potassium Clav 1 tab PO BID 07/28/19 07/28/19 History [Augmentin 875-125 Tablet] Allergies Allergy/AdvReac Type Severity Reaction Status Date / Time No Known Allergies Allergy Verified 07/28/19 14:09 Surgical - Exam Vital Signs Temp Pulse Resp BP Pulse Ox 98.2 F 93 16 90/59 98 07/28/19 12:50 07/28/19 12:50 07/28/19 12:50 07/28/19 12:50 07/28/19 12:50 Results - Labs 07/28/19 13:15 07/28/19 13:15 Assessment and Plan (1) Adrenal insufficiency Current Visit: Yes Status: Acute Code(s): E27.40 - UNSPECIFIED ADRENOCORTICAL INSUFFICIENCY SNOMED Code(s): 547391631 (2) Near syncope Current Visit: Yes Status: Acute Code(s): R55 - SYNCOPE AND COLLAPSE SNOMED Code(s): 523131361 (3) Orthostatic hypotension Current Visit: Yes Status: Acute Code(s): I95.1 - ORTHOSTATIC HYPOTENSION SNOMED Code(s): 26650448 (4) Esophageal ulcer without bleeding Current Visit: No Status: Acute Code(s): K22.10 - ULCER OF ESOPHAGUS WITHOUT BLEEDING SNOMED Code(s): 52447849
--- NOTE | 2019-07-29 18:00 | ECHOF ---
Referral Reason:VT MEASUREMENTS -------- HEIGHT: 193.0 cm WEIGHT: 112.5 kg BP: 102/73 RVIDd: 3.4 cm (< 3.3) IVSd: 1.4 cm (0.6 - 1.1) LVIDd: 4.2 cm (3.9 - 5.3) LVPWd: 1.5 cm (0.6 - 1.1) IVSs: 1.8 cm LVIDs: 3.3 cm LVPWs: 2.0 cm LA Diam: 3.8 cm (2.7 - 3.8) LAESV Index (A-L): 19.62 ml/m Ao Diam: 3.6 cm (2.0 - 3.7) AV Cusp: 1.5 cm (1.5 - 2.6) MV EXCURSION: 21.757 mm (> 18.000) MV EF SLOPE: 119 mm/s (70 - 150) EPSS: 0.9 cm MV E Raymond: 0.72 m/s MV DecT: 285 ms MV A Raymond: 0.63 m/s MV E/A Ratio: 1.15 FINDINGS -------- Sinus rhythm. This was a technically adequate study. The left ventricular size is normal. There is moderate concentric left ventricular hypertrophy. O verall left ventricular systolic function is low-normal with, an EF between 50 - 55 %. The right ventricle is mildly enlarged. Normal LA size by volume 22+/-6 ml/m2. The right atrium is normal in size. Interatrial and interventricular septum intact. There is mild aortic valve sclerosis. Mild mitral annular calcification present. Trace tricuspid regurgitation present. There is no pulmonic regurgitation present. The aortic root size is normal. Normal inferior vena cava with normal inspiratory collapse consistent with estimated right atrial pre ssure of 5 mmHg. There is no pericardial effusion. CONCLUSIONS -------- 1. Sinus rhythm. 2. This was a technically adequate study. 3. The left ventricular size is normal. 4. There is moderate concentric left ventricular hypertrophy. 5. The right ventricle is mildly enlarged. 6. Normal LA size by volume 22+/-6 ml/m2. 7. The right atrium is normal in size. 8. Interatrial and interventricular septum intact. 9. There is mild aortic valve sclerosis. 10. Mild mitral annular calcification present. 11. Trace tricuspid regurgitation present. 12. There is no pulmonic regurgitation present. 13. The aortic root size is normal. 14. Normal inferior vena cava with normal inspiratory collapse consistent with estimated right atrial pressure of 5 mmHg. 15. There is no pericardial effusion. P D DRIVER: Lucy Cordova RDCS
[2019-07-29] MEDS: SODIUM CHLORIDE 0.9% 1,000 ML IV SCH ×2 (20:34→20:39)
[2019-07-29] MEDS: ZOLPIDEM 10 MG TAB PO SCH (20:43)
[2019-07-29] MEDS ORDERED: LISINOPRIL 2.5 MG TAB PO SCH (21:00)
--- NOTE | 2019-07-29 22:00 | P.PN ---
Progress Note - Text Progress Note Date: 07/29/19 Chief Complaint: Dizzy Consultation: This is a very pleasant 54-year-old patient of Dr. Alexandrea Ang. stable medical conditions include hypertension, , gout, chronic bilateral hip pain, peripheral neuropathy. Patient had a gastric sleeve [place] [address] Zarate. 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 Dumont. At baseline patient is to walk slowly because of peripheral neuropathy. In August 2018 patient had EGD done that showed severe erosive esophagitis with esophageal ulcer. readmitted July 05 underwent balloon dilatation of 10-7 mm done. admitted July 22 and underwent EGD by Dr. Carbajal. Found-severe esophagitis and distal esophageal obstruction. A 10 mm dilatation was carried out. Retained food was extracted. Found to have possible aspiration pneumonia bilateral, treat with IV Zosyn-discharge. Dr. Carbajal on Augmentin on July 26. Patient was discharged on a liquid diet. Advance to a soft bland diet yesterday. Patient started feeling dizzy lightheaded. Patient had gone to see his neurologist Dr. Mckinney. Dizzy lightheaded daily passing out. Found to be orthostatic. Patient was sent in here. For orthostatic in the ER again. Given fluid boluses. No focal symptoms. Admitted with orthostatic, from decreased oral intake. Pneumonia. VICKIE inhibitor and Lasix was discontinued. Today-feeling much better. IV fluids. Patient's feeling much less lightheaded. Also in IV Zosyn. Tolerating his diet. Review of systems: Was done for constitutional, cardiovascular, GI, pulmonary. relevant finding as above Active Medications Allopurinol (Zyloprim) 300 mg PO DAILY [facility] Last Admin: 07/29/19 08:12 Dose: 300 mg Documented by: Cyclobenzaprine HCl (Flexeril) 10 mg PO BID [facility] Last Admin: 07/29/19 20:43 Dose: 10 mg Documented by: Enoxaparin Sodium (Lovenox) 40 mg SQ DAILY [facility] Last Admin: 07/29/19 08:10 Dose: 40 mg Documented by: Escitalopram Oxalate (Lexapro) 10 mg PO QAM [facility] Last Admin: 07/29/19 08:12 Dose: 10 mg Documented by: Lactated Ringer's (Lactated Ringers) 1,000 mls @ 125 mls/hr IV .Q8H [facility] Last Admin: 07/29/19 20:37 Dose: Not Given Documented by: Piperacillin Sod/Tazobactam (Sod 3.375 gm/ Sodium Chloride) 100 mls @ 25 mls/hr IVPB Q8H [facility] Last Admin: 07/29/19 20:49 Dose: 25 mls/hr Documented by: Sodium Chloride (Saline 0.9%) 1,000 mls @ 75 mls/hr IV .[id number] [facility] Last Admin: 07/29/19 20:39 Dose: 75 mls/hr Documented by: Lacosamide (Vimpat) 50 mg PO BID [facility] Last Admin: 07/29/19 20:43 Dose: 50 mg Documented by: Lisinopril (Zestril) 2.5 mg PO [facility] Last Admin: 07/29/19 20:44 Dose: 2.5 mg Documented by: Metoprolol Tartrate (Lopressor) 25 mg PO DAILY [facility] Last Admin: 07/29/19 13:29 Dose: 25 mg Documented by: Oxycodone/Acetaminophen (Percocet 7.5-325) 1 each PO BID PRN PRN Reason: Pain Last Admin: 07/29/19 08:10 Dose: 1 each Documented by: Pantoprazole Sodium (Protonix) 40 mg PO AC-BID [facility] Last Admin: 07/29/19 17:31 Dose: 40 mg Documented by: Pregabalin (Lyrica) 300 mg PO BID [facility] Last Admin: 07/29/19 20:43 Dose: 300 mg Documented by: Sertraline HCl (Zoloft) 50 mg PO DAILY [facility] Last Admin: 07/29/19 08:12 Dose: 50 mg Documented by: Sucralfate (Carafate) 1 gm PO BID [facility] Last Admin: 07/29/19 20:44 Dose: 1 gm Documented by: Zolpidem Tartrate (Ambien) 10 mg PO HS [facility] Last Admin: 07/29/19 20:43 Dose: 10 mg Documented by: Physical examination: VITAL SIGNS: 98.0-74-07-9906 3-94% GENERAL: Sitting up in bed, more comfortable EYES: Pupils equal. Conjunctiva normal. HEENT: External appearance of nose and ears normal, oral cavity grossly normal. NECK: JVD not raised; masses not palpable. HEART: First and second heart sounds are normal; no edema. LUNGS: Respiratory rate normal, decreased breath sounds. ABDOMEN: Soft, nontender, liver spleen not palpable, no masses palpable. PSYCH: Alert and oriented x3; mood and affect normal. NEUROLOGICAL: Cranial nerves grossly intact; no facial asymmetry, power and sensation grossly intact. LYMPHATICS: No lymph nodes palpable in the axilla and neck INVESTIGATIONS, reviewed in the clinical context: White count 8.4 hemoglobin 13.7 platelets 238 potassium 3.7 bun 18 creatinine 0.98 Chest f-ted-pnniiabgcpr much improved Assessment: -Symptomatic orthostatics, due to decreased oral intake. Much improved -recurrent esophageal stricture with recurrent dilatation -Severe esophagitis and distal esophageal ulcer., Causing obstruction with food, that was extracted on the last admission -History of paraesophageal repair and history of sleeve gastrectomy -Essential hypertension -Primary osteoarthritis -Gout -Idiopathic peripheral neuropathy -Pneumonia, improving Plan: Clinically doing much better. Another 24 hours of antibiotics and fluids and should be discharged home tomorrow.
[2019-07-30] MEDS: LACTATED RINGERS 1,000 ML IV SCH (04:40)
[2019-07-30] MEDS: PIPERACILLIN-TAZOBACTAM 3.375 GM in SODIUM CHLORIDE 0.9% 100 ML IVPB SCH (04:54)
[2019-07-30] MEDS: LACOSAMIDE 50 MG TABLET PO SCH (08:39)
[2019-07-30] MEDS: SUCRALFATE 1 GM TAB PO SCH (08:39)
[2019-07-30] MEDS: PREGABALIN 100 MG CAP PO SCH (08:39)
[2019-07-30] MEDS: CYCLOBENZAPRINE 10 MG TAB PO SCH (08:39)
[2019-07-30] MEDS: ALLOPURINOL 300 MG TAB PO SCH (08:39)
[2019-07-30] MEDS: PANTOPRAZOLE 40 MG TABLET PO SCH (08:39)
[2019-07-30] MEDS: SERTRALINE 50 MG TAB PO SCH (08:39)
[2019-07-30] MEDS: METOPROLOL TARTRATE 25 MG TAB PO SCH (08:39)
[2019-07-30] MEDS: ESCITALOPRAM 10 MG TAB PO SCH (08:39)
[2019-07-30] MEDS: ENOXAPARIN 40 MG/0.4 ML SYRINGE SQ SCH (08:40)
--- NOTE | 2019-07-30 11:04 | P.PN ---
Subjective HISTORY OF PRESENTING ILLNESS This is a pleasant 54-year-old -[place] male past medical history significant for nonischemic cardiomyopathy, mild nonobstructive coronary artery disease, hypertension, dysphagia and esophagitis status post dilation, gastric sleeve procedure and former nicotine dependence. He follows in the office with Dr. Sheffield. He has been monitoring on telemetry and had another episode of arrhythmia yesterday afternoon. Unclear if there are p-waves however his rate does seem very slightly irregular. In lead I it appears there are consisten P- waves. No VT. Blood pressure 96/61 heart rate 68 afebrile and maintaining oxygen saturation on room air. He denies chest pain, dizziness, palpitations or shortness of breath. Echocardiogram obtained reveals preserved LV systolic function with EF 50-55% and mild aortic valve sclerosis. PHYSICAL EXAMINATION CONSTITUTIONAL: No apparent distress. HEENT: Head is normocephalic. Pupils are equal, round. Sclerae anicteric. Mucous membranes of the mouth are moist. No JVD. No carotid bruit. CHEST EXAMINATION: Lungs are clear to auscultation. No chest wall tenderness is noted on palpation or with deep breathing. HEART EXAMINATION: Regular rate and rhythm. S1, S2 heard. No murmurs, gallops or rub. EXTREMITIES: 2+ peripheral pulses, no lower extremity edema and no calf tende rness. ASSESSMENT Nonsustained monomorphic ventricular tachycardia vs atrial tachycardia. Orthostatic hypotension, improved Acute dehydration secondary to poor oral intake Nonischemic cardiomyopathy, improved. Hypertension Chronic dysphagia status post esophageal dilation PLAN Continue beta raf as previously ordered. Apply 14-day event monitor upon discharge. Follow up in the office with Dr. Sheffield in 3-4 weeks. Nurse Practitioner note has been reviewed, I agree with a documented findings and plan of care. Patient was seen and examined. Objective - Vital Signs Vital signs: Vital Signs Temp 98.8 F 07/30/19 07:30 Pulse 68 07/30/19 07:30 Resp 18 07/30/19 07:30 BP 96/61 07/30/19 07:30 Pulse Ox 96 07/30/19 07:30 Intake & Output 07/29/19 07/30/19 07/30/19 18:59 06:59 18:59 Intake Total 440 720 Output Total 400 300 400 Balance 40 420 -400 Weight 112.5 kg Intake: Oral 240 720 Other 200 Output: Urine 400 300 400 Other: Voiding Method Toilet Toilet Toilet # Voids 1 2 - Labs CBC & Chem 7: 07/28/19 13:15 07/28/19 13:15
--- NOTE | 2019-07-30 11:15 | P.PN ---
<Virgie Iverson - Last Filed: 07/30/19 11:11> Subjective Progress Note Date: 07/30/19 CHIEF COMPLAINT: Vertigo HISTORY OF PRESENT ILLNESS: Patient examined this morning at the bedside. He continues to tolerate diet without dysphagia, nausea, or vomiting. He denies dizziness this morning. SBP in the 90s. Cardiology is following during hospitalization. PHYSICAL EXAM: VITALS: Reviewed CONSTITUTIONAL: Well developed and in no acute distress. EYES: Conjuctivae without sclera icterus. Pupils are equally round and reactive to light. Extraocular movements grossly intact. HEAD, EARS, NOSE, THROAT: Moist buccal mucosa. Head is atraumatic, normocephali c. Hears conversational speech. No nasal drainage. NECK: Supple. No JV distention. No thyroidomegaly. RESPIRATORY: Non-labored respirations and equal bilateral excursions. No gross wheezes. CARDIOVASCULAR: Regular rate and rhythm. Extremities without edema. Palpable 2+ radial pulses. ABDOMEN: Soft. Non-tender. Nondistended. LYMPH: No neck lymphadenopathy. No axillary lymphadenopathy. MUSCULOSKELETAL: Nail and fingers with good capillary refill. SKIN: Warm and well perfused with good skin turgor. NEUROLOGIC: Cranial nerves I through XII grossly intact. Sensation upper and extremities intact. No focal or lateralizing signs. PSYCH: Appropriate affect. Alert and oriented to person, place and time. Displays appropriate insight. ASSESSMENT: 1. Orthostatic hypotension 2. History of esophageal obstruction, improved PLAN: -Continue liquid and pured diet -Continue management of hypotension per cardiology and internal medicine -No surgical intervention recommended -Stable for discharge from a surgical standpoint. Patient to follow up outpatient with Dr. Dumont Nurse practitioner note has been reviewed by physician. Signing provider agrees with the documented findings, assessment, and plan of care. Objective - Vital Signs Vital signs: Vital Signs Temp 98.8 F 07/30/19 07:30 Pulse 68 07/30/19 07:30 Resp 18 07/30/19 07:30 BP 96/61 07/30/19 07:30 Pulse Ox 96 07/30/19 07:30 Intake & Output 07/29/19 07/30/19 07/30/19 18:59 06:59 18:59 Intake Total 440 720 Output Total 400 300 400 Balance 40 420 -400 Weight 112.5 kg Intake: Oral 240 720 Other 200 Output: Urine 400 300 400 Other: Voiding Method Toilet Toilet Toilet # Voids 1 2 - Labs CBC & Chem 7: 07/28/19 13:15 07/28/19 13:15 <TimAlycia N - Last Filed: 07/30/19 18:32> Subjective As above. He is tolerating liquids. Follow up as outpatient Objective - Vital Signs Vital signs: Vital Signs Temp 97.6 F 07/30/19 11:31 Pulse 60 07/30/19 11:31 Resp 18 07/30/19 11:31 BP 99/65 07/30/19 11:31 Pulse Ox 98 07/30/19 11:31 Intake & Output 07/29/19 07/30/19 07/30/19 18:59 06:59 18:59 Intake Total 440 720 Output Total 400 300 400 Balance 40 420 -400 Weight 112.5 kg Intake: Oral 240 720 Other 200 Output: Urine 400 300 400 Other: Voiding Method Toilet Toilet Toilet # Voids 1 2 - Labs CBC & Chem 7: 07/28/19 13:15 07/30/19 11:07 Labs: Abnormal Lab Results - Last 24 Hours (Table) 07/30/19 Range/Units 11:07 Sodium 135 L (137-145) mmol/L Carbon Dioxide 34 H (22-30) mmol/L Glucose 61 L (74-99) mg/dL Calcium 7.7 L (8.4-10.2) mg/dL Assessment and Plan (1) Adrenal insufficiency Status: Acute Code(s): E27.40 - UNSPECIFIED ADRENOCORTICAL INSUFFICIENCY SNOMED Code(s): 514193877 (2) Near syncope Status: Acute Code(s): R55 - SYNCOPE AND COLLAPSE SNOMED Code(s): 784271363 (3) Orthostatic hypotension Status: Acute Code(s): I95.1 - ORTHOSTATIC HYPOTENSION SNOMED Code(s): 38390751 (4) Esophageal ulcer without bleeding Status: Acute Code(s): K22.10 - ULCER OF ESOPHAGUS WITHOUT BLEEDING SNOMED Code(s): 99681819
[2019-07-30 11:32] VITALS: BP 99/65; PULSE 60; TEMP 97.6
[2019-07-30 12:01] LABS: African American GFR (CKD) >90 (>60 ml/min/1.73 sqM); Anion Gap 0 mmol/L; Blood Urea Nitrogen 16 mg/dL (9-20); Calcium 7.7 mg/dL (8.4-10.2); Carbon Dioxide 34 mmol/L (22-30); Chloride 101 mmol/L (98-107); Glucose 61 mg/dL (74-99); Non-African American GFR(CKD) >90 (>60 ml/min/1.73 sqM); Potassium 4.6 mmol/L (3.5-5.1); Sodium 135 mmol/L (137-145)
--- NOTE | 2019-07-30 21:59 | P.DS ---
Providers Date of admission: 07/29/19 11:21 Expected date of discharge: 07/30/19 Attending physician: Chavez Pedraza Consults: 07/29/19 10:00 Consult Physician Routine Consulting Provider: Alycia Dumont Consult Reason/Comments: esophagitis Do you want consulting provider notified?: Yes 07/29/19 10:52 Consult Physician Routine Consulting Provider: Stella Schroeder Consult Reason/Comments: run of 13 VT Do you want consulting provider notified?: Yes Primary care physician: [facility] Course: Chief Complaint: Dizzy Consultation: This is a very pleasant 54-year-old patient of Dr. Alexandrea Ang. stable medical conditions include hypertension, , gout, chronic bilateral hip pain, peripheral neuropathy. Patient had a gastric sleeve in [address] Zarate. 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 Dumont. At baseline patient is to walk slowly because of peripheral neuropathy. In August 2018 patient had EGD done that showed severe erosive esophagitis with esophageal ulcer. readmitted July 05 underwent balloon dilatation of 10-7 mm done. admitted July 22 and underwent EGD by Dr. Carbajal. Found-severe esophagitis and distal esophageal obstruction. A 10 mm dilatation was carried out. Retained food was extracted. Found to have possible aspiration pneumonia bilateral, treat with IV Zosyn-discharge. Dr. Carbajal on Augmentin on July 26. Patient was discharged on a liquid diet. Advance to a soft bland diet yesterday. Patient started feeling dizzy lightheaded. Patient had gone to see his neurologist Dr. Mckinney. Dizzy lightheaded daily passing out. Found to be orthostatic. Patient was sent in here. For orthostatic in the ER again. Given fluid boluses. No focal symptoms. Admitted with orthostatic, from decreased oral intake. Pneumonia. VICKIE inhibi tor and Lasix was discontinued. Responded well to IV fluids. IV Zosyn. Respiratory symptoms completely resolved. Orthostatics improved. Had an episode of what appears to be nonsustained ventricular tachycardia was atrial tachycardia. Event monitor is being arranged. VICKIE inhibitor can be resumed later when blood pressure is doing better. As an outpatient Consultation: Dr. SHAY Schroeder from cardiology Dr. Amirah Carbajal from surgery Physical examination: VITAL SIGNS: 98.8, 68, 18, 96/61, 96% room air GENERAL: Sitting up in bed, more comfortable EYES: Pupils equal. Conjunctiva normal. HEENT: External appearance of nose and ears normal, oral cavity grossly normal. NECK: JVD not raised; masses not palpable. HEART: First and second heart sounds are normal; no edema. LUNGS: Respiratory rate normal, decreased breath sounds. ABDOMEN: Soft, nontender, liver spleen not palpable, no masses palpable. PSYCH: Alert and oriented x3; mood and affect normal. NEUROLOGICAL: Cranial nerves grossly intact; no facial asymmetry, power and sensation grossly intact. LYMPHATICS: No lymph nodes palpable in the axilla and neck INVESTIGATIONS, reviewed in the clinical context: White count 8.4 hemoglobin 13.7 platelets 238 potassium 3.7 bun 18 creatinine 0.98 Chest [id number] much improved Assessment: -Symptomatic orthostatics, due to decreased oral intake. Much improved -recurrent esophageal stricture with recurrent dilatation -Severe esophagitis and distal esophageal ulcer., Causing obstruction with food, that was extracted on the last admission -History of paraesophageal repair and history of sleeve gastrectomy -Essential hypertension -Primary osteoarthritis -Gout -Idiopathic peripheral neuropathy -Pneumonia, improving Plan: Clinically doing much better. Another 24 hours of antibiotics and fluids and should be discharged home tomorrow. Plan - Discharge Summary Discharge Rx Participant: No New Discharge Prescriptions: New Metoprolol Tartrate [Lopressor] 12.5 mg PO BID #60 tab Continue Escitalopram [Lexapro] 10 mg PO QAM Cyclobenzaprine [Flexeril] 10 mg PO BID Allopurinol [Zyloprim] 300 mg PO DAILY Zolpidem Tartrate [Ambien] 10 mg PO HS Lacosamide [Vimpat] 50 mg PO BID Ergocalciferol (Vitamin D2) [Vitamin D2] 50,000 unit PO MO Pregabalin [Lyrica] 300 mg PO BID oxyCODONE-APAP 7.5-325MG [Percocet 7.5-325 mg] 1 tab PO BID PRN PRN Reason: Pain Sucralfate [Carafate] 1 gm PO BID #60 tablet Omeprazole 40 mg PO BID #60 cap Sertraline [Zoloft] 50 mg PO DAILY Morphine Pain Pump 1.25 mg CONTINUOUS Discontinued Lisinopril [Zestril] 2.5 mg PO DAILY Ibuprofen [Motrin] 800 mg PO TID PRN PRN Reason: Pain Furosemide [Lasix] 20 mg PO DAILY Amoxicillin/Potassium Clav [Augmentin 875-125 Tablet] 1 tab PO BID Discharge Medication List Allopurinol [Zyloprim] 300 mg PO DAILY 06/04/16 [History] Cyclobenzaprine [Flexeril] 10 mg PO BID 06/04/16 [History] Escitalopram [Lexapro] 10 mg PO QAM 06/04/16 [History] Lacosamide [Vimpat] 50 mg PO BID 03/25/18 [History] Zolpidem Tartrate [Ambien] 10 mg PO HS 03/25/18 [History] Ergocalciferol (Vitamin D2) [Vitamin D2] 50,000 unit PO MO 06/19/18 [History] Pregabalin [Lyrica] 300 mg PO BID 07/17/18 [History] oxyCODONE-APAP 7.5-325MG [Percocet 7.5-325 mg] 1 tab PO BID PRN 07/01/19 [History] Omeprazole 40 mg PO BID #60 cap 07/06/19 [Rx] Sucralfate [Carafate] 1 gm PO BID #60 tablet 07/06/19 [Rx] Morphine Pain Pump 1.25 mg CONTINUOUS 07/20/19 [History] Sertraline [Zoloft] 50 mg PO DAILY 07/20/19 [History] Metoprolol Tartrate [Lopressor] 12.5 mg PO BID #60 tab 07/30/19 [Rx] Follow up Appointment(s)/Referral(s): Jairon Sheffield MD [STAFF PHYSICIAN] - 08/23/19 3:30 pm (Follow up with Dr. Sheffield (Gilda, nurse practitioner) as scheduled for you) Alycia Dumont MD [STAFF PHYSICIAN] - 1 Week Eric Ang DO [Primary Care Provider] - 1-2 days Patient Instructions/Handouts: Syncope (GEN)
== END 2019-07-30 13:01 | disposition home or self-care (01) | DRG 640 ==
LOC: EC 12:49 → 1SOBS 16:09 → OBSVTOIN 07-29 11:21
PROVIDERS: ADMIT Hospitalist; ATTEND Hospitalist
DX: E86.0 Dehydration (principal); J69.0 Pneumonitis due to inhalation of food and vomit; E27.40 Unspecified adrenocortical insufficiency; I47.2 Ventricular tachycardia; I42.8 Other cardiomyopathies; F32.9 Major depressive disorder, single episode, unspecified; I10 Essential (primary) hypertension; I25.10 Atherosclerotic heart disease of native coronary artery without angina pectoris; I95.1 Orthostatic hypotension; K21.0 Gastro-esophageal reflux disease with esophagitis; K22.2 Esophageal obstruction; K44.9 Diaphragmatic hernia without obstruction or gangrene; Z96.612 Presence of left artificial shoulder joint; Z96.643 Presence of artificial hip joint, bilateral; G89.29 Other chronic pain; G60.9 Hereditary and idiopathic neuropathy, unspecified; M10.9 Gout, unspecified; M19.91 Primary osteoarthritis, unspecified site; Z79.899 Other long term (current) drug therapy; Z82.49 Family history of ischemic heart disease and other diseases of the circulatory system; Z86.73 Personal history of transient ischemic attack (TIA), and cerebral infarction without residual deficits; Z87.01 Personal history of pneumonia (recurrent); Z87.19 Personal history of other diseases of the digestive system; Z87.891 Personal history of nicotine dependence; Z98.1 Arthrodesis status; Z98.84 Bariatric surgery status; Z86.14 Personal history of Methicillin resistant Staphylococcus aureus infection; Z98.890 Other specified postprocedural states; Z80.1 Family history of malignant neoplasm of trachea, bronchus and lung
CPT/HCPCS: 36415; 71046; 80048; 80053; 81003; 83605; 83735; 84443; 84484; 85025; 85610; 85730; 93005; 93270; 93306; 94760; 96361; 96365; 99285

== ENCOUNTER → 2019-08-04 | Outpatient (CLI) | payer MEDICARE, OTHER ==
[2019-08-04 13:26] VITALS: BP 111/70; PULSE 75; RESP 16; TEMP 97.9; BMI 30.5
--- NOTE | 2019-08-04 13:54 | P.PN ---
Subjective Progress Note Date: 08/04/19 DATE: 08/04/2019 CHIEF COMPLAINT: Complications from sleeve gastrectomy HISTORY OF PRESENT ILLNESS: The patient is a 54-year-old male status sleeve gastrectomy over 6 years ago, 2013. He presents with complications from sleeve gastrectomy since 2013. He has pre-existing history of esophageal dysphagia prior to surgery dating back since 2012. He has been in the hospital secondary to pulmonary complications including dysphagia. He has had multiple upper endoscopies and balloon dilations for esophageal obstruction. He was recentlry hospitalized with dizziness and falling down. He reports improvement of his dysphagia since his treatment for esophageal ulcer including omeprazole and Carafate. His is concerned about his pain medications. His pain specialist is Dr. Hussein who manages his pain medications. His ideal body weight is 204 pounds. His initial weight was 481 pounds. He comes in 250 pounds from 244 pounds, 3 weeks ago. He has gained 6 pounds in 3 weeks. Previous BMI 58.7 down to 30.6. Lifetime total weight loss 231 pounds. Percent excess weight loss of 83 %. He is 46 pounds overweight. PHYSICAL EXAM: VITAL SIGNS: Weight 250 pounds, Height 6 foot 4 inches, BMI 30.6 Vital Signs Temp 97.9 F 08/04/19 13:24 Pulse 75 08/04/19 13:24 Resp 16 08/04/19 13:24 BP 111/70 08/04/19 13:24 Pulse Ox CONSTITUTIONAL: Well developed and in no acute distress. EYES: Conjuctivae without sclera icterus. Extraocular movements grossly intact. HEAD, EARS, NOSE, THROAT: Moist buccal mucosa. Head is atraumatic, normocephalic. Hears conversational speech. No nasal drainage. NECK: Supple. No thyroidomegaly. RESPIRATORY: Non-labored respirations and equal bilateral excursions. CARDIOVASCULAR: Palpable 2+ radial pulses. ABDOMEN: Non-tender. Soft. No peritonitis. MUSCULOSKELETAL: No gross deformity of the lower extremities noted. No club elsa. No cyanosis. SKIN: Good skin turgor. Well perfused. NEUROLOGIC: Cranial nerves I through XII grossly intact. No focal or lateralizing signs. PSYCH: Appropriate affect. Alert and oriented to person, place and time. ASSESSMENT: 1. Gastroesophageal reflux disease 2. Morbid obesity due to excess calories, BMI 58.7 to 30.6 3. Dysphagia 4. Complications from sleeve gastrectomy 5. Noncompliant to dietary guidelines 6. Iron deficiency anemia 7. Esophageal dysmotility 8. Chronic aspirations 9. Esophageal ulcers PLAN: 1. Recommend referral to thoracic surgeon for tonny-esophagus, recurrent esophageal stricture including esophageal dysmotility. Lee-en-Y gastric bypass not advised with recurrent esophageal stricture and esophageal dysmotility. May benefit from evaluation for esophageal surgery. 2. Referral to [facility] thoracic surgery group advised. Objective - Vital Signs Vital signs: Vital Signs Temp 97.9 F 08/04/19 13:24 Pulse 75 08/04/19 13:24 Resp 16 08/04/19 13:24 BP 111/70 08/04/19 13:24 Pulse Ox Intake & Output 08/03/19 08/04/19 08/04/19 18:59 06:59 18:59 Weight 113.852 kg
== END | disposition home or self-care (01) ==
LOC: BARWHC3 12:54
PROVIDERS: ATTEND Surgery Plastic and Reconstructive Surgery
DX: E66.01 Morbid (severe) obesity due to excess calories (principal); K21.9 Gastro-esophageal reflux disease without esophagitis; Z68.30 Body mass index [BMI] 30.0-30.9, adult; R13.10 Dysphagia, unspecified; K95.89 Other complications of other bariatric procedure; Z91.19 Patient's noncompliance with other medical treatment and regimen; D50.9 Iron deficiency anemia, unspecified; K22.4 Dyskinesia of esophagus; J69.0 Pneumonitis due to inhalation of food and vomit; K22.10 Ulcer of esophagus without bleeding
CPT/HCPCS: 99211

== ENCOUNTER 2019-12-01 10:42 | Inpatient (IN) | payer MEDICARE, OTHER ==
[2019-12-01] MEDS ORDERED: ACETAMINOPHEN TAB 500 MG TAB PO STA (11:23)
--- NOTE | 2019-12-01 11:26 | ED ---
General Adult HPI - General Chief complaint: Shortness of Breath Stated complaint: Fever Time Seen by Provider: 12/01/19 11:05 Source: patient, family, RN notes reviewed Mode of arrival: wheelchair Limitations: physical limitation - History of Present Illness Initial comments: Patient is a pleasant 54-year-old male presenting to the emergency Department with fever and generalized weakness. Weakness started a couple of days ago. Patient does have mild cough, no difficulty breathing. Patient noticed fever today. Patient has had decreased oral intake for the past 2 days. Symptoms are similar to previous pneumonia. - Related Data Home Medications Medication Instructions Recorded Confirmed Allopurinol [Zyloprim] 300 mg PO DAILY 06/04/16 12/01/19 Cyclobenzaprine [Flexeril] 10 mg PO BID 06/04/16 12/01/19 Escitalopram [Lexapro] 10 mg PO QAM 06/04/16 12/01/19 Lacosamide [Vimpat] 50 mg PO BID 03/25/18 12/01/19 Zolpidem Tartrate [Ambien] 10 mg PO HS 03/25/18 12/01/19 Ergocalciferol (Vitamin D2) 50,000 unit PO MO 06/19/18 12/01/19 [Vitamin D2] Pregabalin [Lyrica] 300 mg PO BID 07/17/18 12/01/19 oxyCODONE-APAP 7.5-325MG [Percocet 1 tab PO DAILY PRN 07/01/19 12/01/19 7.5-325 mg] Morphine Pain Pump 1 mg INTRATHECA CONTINUOUS 07/20/19 12/01/19 Sertraline [Zoloft] 50 mg PO DAILY 07/20/19 12/01/19 Furosemide [Lasix] 20 mg PO DAILY 12/01/19 12/01/19 Ibuprofen 800 mg PO TID PRN 12/01/19 12/01/19 Lisinopril [Zestril] 2.5 mg PO DAILY 12/01/19 12/01/19 Previous Rx's Medication Instructions Recorded Omeprazole 40 mg PO BID #60 cap 07/06/19 Sucralfate [Carafate] 1 gm PO BID #60 tablet 07/06/19 Metoprolol Tartrate [Lopressor] 12.5 mg PO BID #60 tab 07/30/19 Allergies Allergy/AdvReac Type Severity Reaction Status Date / Time No Known Allergies Allergy Verified 12/01/19 11:02 Review of Systems ROS Statement: Those systems with pertinent positive or pertinent negative responses have been documented in the HPI. ROS Other: All systems not noted in ROS Statement are negative. Constitutional: Reports: fever, chills Eyes: Denies: eye pain ENT: Denies: ear pain Respiratory: Reports: cough. 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 BILATERAL KNEE arthroscopy, BILATERAL HIP replacement, LEFT SHOULDER replacement, LEFT ACHILES TENDON SX., RIGHT BIG TOE, echocardiolgram, spinal fusion, EGD with dilation., STATES HX OF PNEUMONIA WITH LUNG SURGERY., REPAIR OF HIATAL HERNIA & LYSIS OF ADHESIONS Past Anesthesia/Blood Transfusion Reactions: No Reported Reaction Past Psychological History: Anxiety, Depression Smoking Status: Former smoker Past Alcohol Use History: None Reported Past Drug Use History: None Reported - Past Family History Father Family Medical History: Cancer Additional Family Medical History / Comment(s): lung Mother Family Medical History: Coronary Artery Disease (CAD), Hypertension General Exam Limitations: physical limitation General appearance: alert, in no apparent distress Head exam: Present: normocephalic Eye exam: Present: normal appearance, PERRL ENT exam: Present: mucous membranes dry Neck exam: Present: normal inspection Respiratory exam: Present: rhonchi Cardiovascular Exam: Present: regular rate, normal rhythm GI/Abdominal exam: Present: soft. Absent: distended, tenderness Extremities exam: Present: normal inspection. Absent: calf tenderness Neurological exam: Present: alert Expanded Neurological exam: Present: protecting the airway Speech: Present: fluid speech Motor strength exam: RUE: 5, LUE: 5, RLE: 4 (Chronic), LLE: 4 (Chronic) Eye Response: (4) open spontaneously Motor Response: (6) obeys commands Verbal Response: (5) oriented Psychiatric exam: Present: normal affect, normal mood Skin exam: Present: normal color Course Vital Signs 12/01/19 12/01/19 12/01/19 11:00 11:02 12:02 Temperature 102.7 F H Pulse Rate 66 89 Respiratory 20 20 20 Rate Blood Pressure 98/58 83/53 O2 Sat by Pulse 91 L 95 Oximetry 12/01/19 13:00 Temperature Pulse Rate 86 Respiratory 20 Rate Blood Pressure 91/63 O2 Sat by Pulse 95 Oximetry - Reevaluation(s) Reevaluation #1: 12/01/19 12:19 Patient meet sepsis criteria diagnosed at 12:15 PM. The culture and lactic acid have been ordered. IV antibiotics will be ordered. Patient reevaluated and updated. Dr. Pedraza has been paged for admission for Dr. Ang. 12/01/19 12:28 Patient had 3 L fluid bolus ordered. This ideal body weight 92 kg x 30 mL bolus of 2750ml EKG Findings - EKG Comments: EKG Findings:: Normal sinus rhythm 95. RI 152. QRS 120. QT 362. QTC 454. Normal axis. Normal QRS. No acute ST change. Medical Decision Making - Medical Decision Making Patient was reevaluated and updated. Case was discussed with Dr. Pedraza, who will admit covering for Dr. Ang. - Lab Data Result diagrams: 12/01/19 11:36 12/01/19 11:36 Lab Results 12/01/19 12/01/19 12/01/19 Range/Units 11:36 11:36 11:36 WBC 15.8 H (3.8-10.6) k/uL RBC 3.95 L (4.30-5.90) m/uL Hgb 11.0 L (13.0-17.5) gm/dL Hct 34.9 L (39.0-53.0) % MCV 88.4 (80.0-100.0) fL MCH 27.8 (25.0-35.0) pg MCHC 31.4 (31.0-37.0) g/dL RDW 15.7 H (11.5-15.5) % Plt Count 115 L (150-450) k/uL Neutrophils % 93 % Lymphocytes % 4 % Monocytes % 2 % Eosinophils % 1 % Basophils % 0 % Neutrophils # 14.6 H (1.3-7.7) k/uL Lymphocytes # 0.6 L (1.0-4.8) k/uL Monocytes # 0.4 (0-1.0) k/uL Eosinophils # 0.1 (0-0.7) k/uL Basophils # 0.0 (0-0.2) k/uL Manual Slide Review Performed Hypochromasia Marked PT 14.7 H (9.0-12.0) sec INR 1.5 H (<1.2) APTT 29.4 (22.0-30.0) sec Sodium 136 L (137-145) mmol/L Potassium 3.7 (3.5-5.1) mmol/L Chloride 101 (98-107) mmol/L Carbon Dioxide 27 (22-30) mmol/L Anion Gap 8 mmol/L BUN 34 H (9-20) mg/dL Creatinine 1.38 H (0.66-1.25) mg/dL Est GFR (CKD-EPI)AfAm 66 (>60 ml/min/1.73 sqM) Est GFR (CKD-EPI)NonAf 57 (>60 ml/min/1.73 sqM) Glucose 97 (74-99) mg/dL Plasma Lactic Acid Suresh (0.7-2.0) mmol/L Calcium 8.1 L (8.4-10.2) mg/dL Total Bilirubin 1.5 H (0.2-1.3) mg/dL AST 43 (17-59) U/L ALT 14 (4-49) U/L Alkaline Phosphatase 106 (38-126) U/L Total Protein 6.7 (6.3-8.2) g/dL Albumin 3.2 L (3.5-5.0) g/dL 12/01/19 Range/Units 11:36 WBC (3.8-10.6) k/uL RBC (4.30-5.90) m/uL Hgb (13.0-17.5) gm/dL Hct (39.0-53.0) % MCV (80.0-100.0) fL MCH (25.0-35.0) pg MCHC (31.0-37.0) g/dL RDW (11.5-15.5) % Plt Count (150-450) k/uL Neutrophils % % Lymphocytes % % Monocytes % % Eosinophils % % Basophils % % Neutrophils # (1.3-7.7) k/uL Lymphocytes # (1.0-4.8) k/uL Monocytes # (0-1.0) k/uL Eosinophils # (0-0.7) k/uL Basophils # (0-0.2) k/uL Manual Slide Review Hypochromasia PT (9.0-12.0) sec INR (<1.2) APTT (22.0-30.0) sec Sodium (137-145) mmol/L Potassium (3.5-5.1) mmol/L Chloride (98-107) mmol/L Carbon Dioxide (22-30) mmol/L Anion Gap mmol/L BUN (9-20) mg/dL Creatinine (0.66-1.25) mg/dL Est GFR (CKD-EPI)AfAm (>60 ml/min/1.73 sqM) Est GFR (CKD-EPI)NonAf (>60 ml/min/1.73 sqM) Glucose (74-99) mg/dL Plasma Lactic Acid Suresh 1.2 (0.7-2.0) mmol/L Calcium (8.4-10.2) mg/dL Total Bilirubin (0.2-1.3) mg/dL AST (17-59) U/L ALT (4-49) U/L Alkaline Phosphatase (38-126) U/L Total Protein (6.3-8.2) g/dL Albumin (3.5-5.0) g/dL - Radiology Data Radiology results: image reviewed (Chest x-ray shows left basilar infiltrate) Critical Care Time Critical Care Time: Yes Total Critical Care Time: 32 Disposition Clinical Impression: Pneumonia, Sepsis Disposition: ADMITTED IP TO THIS [facility] Is patient prescribed a controlled substance at d/c from ED?: No Referrals: Eric Ang DO [Primary Care Provider] - 1-2 days Decision Time: 12:20
[2019-12-01] MEDS: SODIUM CHLORIDE 0.9% 500 ML 500 ML IV SCH ×2 (11:39→12:42)
[2019-12-01] MEDS: SODIUM CHLORIDE 0.9% 1,000 ML IV SCH ×2 (11:40→21:08)
[2019-12-01 11:55] LABS: Basophils % (A) 0 %; Eosinophils # (A) 0.1 k/uL (0-0.7); Eosinophils % (A) 1 %; HCT 34.9 % (39.0-53.0); Hypochromasia Marked; Lymphocytes # (A) 0.6 k/uL (1.0-4.8); Lymphocytes % (A) 4 %; MCH 27.8 pg (25.0-35.0); MCHC 31.4 g/dL (31.0-37.0); MCV 88.4 fL (80.0-100.0); Monocytes # (A) 0.4 k/uL (0-1.0); Monocytes % (A) 2 %; Neutrophils # (A) 14.6 k/uL (1.3-7.7); Neutrophils % (A) 93 %; Platelet Count 115 k/uL (150-450); RBC 3.95 m/uL (4.30-5.90); RDW 15.7 % (11.5-15.5); WBC 15.8 k/uL (3.8-10.6)
--- NOTE | 2019-12-01 11:56 | XR ---
EXAMINATION TYPE: XR chest 2V DATE OF EXAM: 12/01/2019 COMPARISON: 07/29/2009 TECHNIQUE: PA and lateral views submitted. HISTORY: Fever FINDINGS: No pleural effusion or pneumothorax. No overt failure. Postsurgical change left shoulder and severe a rthropathy right shoulder. There is subsegmental consolidation retrocardiac left lung base.. Postsur gical change overlying the cervical spine. IMPRESSION: 1. Left basilar infiltrate.
[2019-12-01 12:10] LABS: INR 1.5 (<1.2); Partial Thromboplastin Time 29.4 sec (22.0-30.0); Prothrombin Time 14.7 sec (9.0-12.0)
[2019-12-01] MEDS ORDERED: SODIUM CHLORIDE 0.9% 1,000 ML IV STA ×2 (12:25→12:28)
[2019-12-01 13:25] LABS: Albumin 3.2 g/dL (3.5-5.0); Calcium 8.1 mg/dL (8.4-10.2); Potassium 3.7 mmol/L (3.5-5.1); Total Bilirubin 1.5 mg/dL (0.2-1.3); Total Protein 6.7 g/dL (6.3-8.2)
[2019-12-01] MEDS ORDERED: PNEUMONIA PROTOCOL UTILIZED 1 EACH MISC PO PRN (13:45)
--- NOTE | 2019-12-01 16:46 | P.HPIM ---
History of Present Illness H&P Date: 12/01/19 Chief Complaint: Cough short of breath History of presenting complaint: This is a very pleasant 54-year-old patient of Dr. Alexandrea Ang. stable medical conditions include hypertension, , gout, chronic bilateral hip pain, peripheral neuropathy. gastric sleeve [place] [address] Zarate. 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 Dumont. At baseline patient is to walk slowly because of peripheral neuropathy. In August 2018 patient had EGD done that showed severe erosive esophagitis with esophageal ulcer. readmitted July 05 underwent balloon dilatation of 10-7 mm done. admitted July 22 and underwent EGD by Dr. Carbajal. Found-severe esophagitis and distal esophageal obstruction. A 10 mm dilatation was carried out. Retained food was extracted. Found to have possible aspiration pneumonia bilateral, treat with IV Zosyn-discharge. Dr. Carbajal on Augmentin on July 26. Admitted on July 29 with orthostatic hypotension. This time patient presents with 2 days of cough fever and yellow sputum. Chills. Headache body aches tired rundown. Decreased appetite. Chest x-ray showing pneumonia. Review of systems: GEN.: Weak tired fever chills EYES: None HEENT: None NECK: None RESPIRATORY: As above CARDIOVASCULAR: None GASTROINTESTINAL: None. GENITOURINARY: None MUSCULOSKELETAL: Some joint pains LYMPHATICS: None HEMATOLOGICAL: None PSYCHIATRY: None NEUROLOGICAL: Numbness peripherally Past medical history to include: Hypertension, gout, chronic bilateral hip pain, peripheral neuropathy, gastric [place] [address] Zarate, repair of incarcerated paraesophageal hiatal hernia with a mesh and takedown of gastric gastric fistula. Dr. Carbajal, peripheral neuropathy, severe esophagitis, esophageal obstruction with dilatation. Social history: Patient smoked one half a pack a day for more than 20 years. . No alcohol. Past medical history to include: GERD, hypertension, osteoarthritis, hiatal hernia, gout, idiopathic peripheral neuropathy, sleeve gastrectomy, severe esophagitis, esophageal ulcer, esophageal stricture Physical examination: VITAL SIGNS: 102.7, 66, 20, 98/58, 91% on room air GENERAL: BMI 30.4, propped up in bed, a bit tired EYES: Pupils equal. Conjunctiva normal. HEENT: External appearance of nose and ears normal, oral cavity grossly normal. NECK: JVD not raised; masses not palpable. HEART: First and second heart sounds are normal; no edema. LUNGS: Respiratory rate normal, decreased breath sounds. ABDOMEN: Soft, nontender, liver spleen not palpable, no masses palpable. Left abdominal wall has a pain pump PSYCH: Alert and oriented x3; mood and affect normal. NEUROLOGICAL: Cranial nerves grossly intact; no facial asymmetry, power and sensation grossly intact. LYMPHATICS: No lymph nodes palpable in the axilla and neck INVESTIGATIONS, reviewed in the clinical context: White count 15.8 hemoglobin 11 platelets 115 potassium 3.7 bun 34 creatinine 1.38 EKG tracing personally reviewed by me-normal sinus rhythm on specific findings Chest x-ray film personally reviewed by me-left basilar infiltrate Previous testing: August 07 bun 18 and creatinine 0.98 platelets 238 Assessment: -Left lower pneumonia suspected gram-negative organism, POA -Sepsis from pneumonia. -History of recurrent esophageal stricture with recurrent dilatation -Severe esophagitis and distal esophageal ulcer., -History of paraesophageal repair and history of sleeve gastrectomy -Essential hypertension -Primary osteoarthritis -Gout -Idiopathic peripheral neuropathy -Chronic back pain with the pain pump -Acute kidney injury likely ATN from sepsis Plan: Patient started and IV ceftriaxone in the ER. Home medications resumed. Sputum for Gram stain and culture. Lovenox for DVT prophylaxis. Expect patient to stay in the hospital for at least 2 nights. IV fluids. Hold of VICKIE inhibitor. Check labs in the morning. 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 BILATERAL KNEE arthroscopy, BILATERAL HIP replacement, LEFT SHOULDER replacement, LEFT ACHILES TENDON SX., RIGHT BIG TOE, echocardiolgram, spinal fusion, EGD with dilation., STATES HX OF PNEUMONIA WITH LUNG SURGERY., REPAIR OF HIATAL HERNIA & LYSIS OF ADHESIONS Past Anesthesia/Blood Transfusion Reactions: No Reported Reaction Past Psychological History: Anxiety, Depression Smoking Status: Former smoker Past Alcohol Use History: None Reported Additional Past Alcohol Use History / Comment(s): quit smoking 2018, smoked since age 21, 1 PPD Past Drug Use History: None Reported - Past Family History Father Family Medical History: Cancer Additional Family Medical History / Comment(s): lung Mother Family Medical History: Coronary Artery Disease (CAD), Hypertension Medications and Allergies Home Medications Medication Instructions Recorded Confirmed Type Allopurinol [Zyloprim] 300 mg PO DAILY 06/04/16 12/01/19 History Cyclobenzaprine [Flexeril] 10 mg PO BID 06/04/16 12/01/19 History Escitalopram [Lexapro] 10 mg PO QAM 06/04/16 12/01/19 History Lacosamide [Vimpat] 50 mg PO BID 03/25/18 12/01/19 History Zolpidem Tartrate [Ambien] 10 mg PO HS 03/25/18 12/01/19 History Ergocalciferol (Vitamin D2) 50,000 unit PO MO 06/19/18 12/01/19 History [Vitamin D2] Pregabalin [Lyrica] 300 mg PO BID 07/17/18 12/01/19 History oxyCODONE-APAP 7.5-325MG [Percocet 1 tab PO DAILY PRN 07/01/19 12/01/19 History 7.5-325 mg] Omeprazole 40 mg PO BID #60 cap 07/06/19 12/01/19 Rx Sucralfate [Carafate] 1 gm PO BID #60 tablet 07/06/19 12/01/19 Rx Morphine Pain Pump 1 mg INTRATHECA CONTINUOUS 07/20/19 12/01/19 History Sertraline [Zoloft] 50 mg PO DAILY 07/20/19 12/01/19 History Metoprolol Tartrate [Lopressor] 12.5 mg PO BID #60 tab 07/30/19 12/01/19 Rx Furosemide [Lasix] 20 mg PO DAILY 12/01/19 12/01/19 History Ibuprofen 800 mg PO TID PRN 12/01/19 12/01/19 History Lisinopril [Zestril] 2.5 mg PO DAILY 12/01/19 12/01/19 History Allergies Allergy/AdvReac Type Severity Reaction Status Date / Time No Known Allergies Allergy Verified 12/01/19 11:02 Physical Exam Vitals: Vital Signs Temp Pulse Pulse Resp BP BP Pulse Ox 12/01/19 16:14 97.8 F 83 16 106/68 98 12/01/19 14:16 99.1 F 86 18 90/69 96 12/01/19 14:12 86 18 90/69 96 12/01/19 13:00 86 20 91/63 95 12/01/19 12:02 89 20 83/53 95 12/01/19 11:02 20 12/01/19 11:00 102.7 F H 66 20 98/58 91 L Intake and Output 12/01/19 12/01/19 12/01/19 06:59 14:59 22:59 Other: Weight 113.398 kg Results CBC & Chem 7: 12/01/19 11:36 12/01/19 11:36 Labs: Abnormal Lab Results - Last 24 Hours (Table) 12/01/19 12/01/19 12/01/19 Range/Units 11:36 11:36 11:36 WBC 15.8 H (3.8-10.6) k/uL RBC 3.95 L (4.30-5.90) m/uL Hgb 11.0 L (13.0-17.5) gm/dL Hct 34.9 L (39.0-53.0) % RDW 15.7 H (11.5-15.5) % Plt Count 115 L (150-450) k/uL Neutrophils # 14.6 H (1.3-7.7) k/uL Lymphocytes # 0.6 L (1.0-4.8) k/uL PT 14.7 H (9.0-12.0) sec INR 1.5 H (<1.2) Sodium 136 L (137-145) mmol/L BUN 34 H (9-20) mg/dL Creatinine 1.38 H (0.66-1.25) mg/dL Calcium 8.1 L (8.4-10.2) mg/dL Total Bilirubin 1.5 H (0.2-1.3) mg/dL Albumin 3.2 L (3.5-5.0) g/dL
[2019-12-01] MEDS: ALLOPURINOL 300 MG TAB PO SCH (17:02)
[2019-12-01] MEDS: SERTRALINE 50 MG TAB PO SCH (17:02)
[2019-12-01] MEDS: METOPROLOL TARTRATE 12.5 MG TAB PO SCH ×2 (17:02→21:40)
[2019-12-01] MEDS: ESCITALOPRAM 10 MG TAB PO SCH (17:02)
[2019-12-01] MEDS: CYCLOBENZAPRINE 10 MG TAB PO SCH ×2 (17:09→21:40)
[2019-12-01] MEDS: PREGABALIN 100 MG CAP PO SCH ×2 (17:09→21:41)
[2019-12-01] MEDS: PANTOPRAZOLE 40 MG TABLET PO SCH ×2 (17:10→21:41)
[2019-12-01] MEDS: LACOSAMIDE 50 MG TABLET PO SCH ×2 (17:10→21:40)
[2019-12-01] MEDS: ENOXAPARIN 40 MG/0.4 ML SYRINGE SQ SCH (17:10)
[2019-12-01] MEDS: MORPHINE MISCELLANE SCH (17:11)
[2019-12-01] MEDS ORDERED: AZITHROMYCIN 500 MG in SODIUM CHLORIDE 0.9% 250 ML IVPB STA (20:11)
[2019-12-01] MEDS: AZITHROMYCIN 500 MG in SODIUM CHLORIDE 0.9% 250 ML IVPB STA ×2 (20:12→21:08)
[2019-12-01] MEDS: oxyCODONE-APAP 7.5-325MG 1 EACH TAB PO PRN (21:07)
[2019-12-01] MEDS: ZOLPIDEM 10 MG TAB PO SCH (21:07)
[2019-12-02] MEDS: SODIUM CHLORIDE 0.9% 1,000 ML IV SCH ×3 (04:51→14:09)
[2019-12-02] MEDS: METOPROLOL TARTRATE 12.5 MG TAB PO SCH ×2 (07:23→21:09)
[2019-12-02] MEDS: LACOSAMIDE 50 MG TABLET PO SCH ×2 (07:23→21:08)
[2019-12-02] MEDS: PREGABALIN 100 MG CAP PO SCH ×2 (07:23→21:09)
[2019-12-02] MEDS: PANTOPRAZOLE 40 MG TABLET PO SCH ×2 (07:23→21:09)
[2019-12-02] MEDS: SERTRALINE 50 MG TAB PO SCH (07:24)
[2019-12-02] MEDS: ENOXAPARIN 40 MG/0.4 ML SYRINGE SQ SCH (07:24)
[2019-12-02] MEDS: ALLOPURINOL 300 MG TAB PO SCH (07:24)
[2019-12-02] MEDS: CYCLOBENZAPRINE 10 MG TAB PO SCH ×2 (07:24→21:09)
[2019-12-02] MEDS: ESCITALOPRAM 10 MG TAB PO SCH (07:24)
[2019-12-02 07:50] LABS: HGB 9.8 gm/dL (13.0-17.5); Hypochromasia Marked; MCH 28.1 pg (25.0-35.0); MCHC 30.6 g/dL (31.0-37.0); RBC 3.48 m/uL (4.30-5.90); RDW 15.5 % (11.5-15.5); WBC 12.3 k/uL (3.8-10.6)
[2019-12-02 07:59] LABS: African American GFR (CKD) >90 (>60 ml/min/1.73 sqM); Anion Gap 6 mmol/L; Blood Urea Nitrogen 28 mg/dL (9-20); Calcium 7.5 mg/dL (8.4-10.2); Carbon Dioxide 28 mmol/L (22-30); Chloride 106 mmol/L (98-107); Glucose 73 mg/dL (74-99); Non-African American GFR(CKD) 82 (>60 ml/min/1.73 sqM); Potassium 3.9 mmol/L (3.5-5.1); Sodium 140 mmol/L (137-145)
[2019-12-02] MEDS ORDERED: LISINOPRIL 2.5 MG TAB PO SCH (09:00)
[2019-12-02] MEDS: MORPHINE MISCELLANE SCH (10:45)
[2019-12-02 12:16] LABS: Platelet Count 96 k/uL (150-450)
--- NOTE | 2019-12-02 13:45 | XR ---
EXAMINATION TYPE: XR chest 2V DATE OF EXAM: 12/02/2019 COMPARISON: 12/01/2019 INDICATION: Pneumonia cough TECHNIQUE: Frontal and lateral views of the chest are obtained. FINDINGS: Patient is rotated to the right. The heart size is normal. The pulmonary vasculature is normal. The lungs are clear. IMPRESSION: 1. No acute pulmonary process.
[2019-12-02] MEDS ORDERED: AZITHROMYCIN 500 MG TAB PO SCH (14:00)
--- NOTE | 2019-12-02 20:59 | P.PN ---
Progress Note - Text Progress Note Date: 12/02/19 Chief Complaint: Cough short of breath History of presenting complaint: This is a very pleasant 54-year-old patient of Dr. Alexandrea Ang. stable medical conditions include hypertension, , gout, chronic bilateral hip pain, peripheral neuropathy. gastric sleeve [place] [address] Zarate. 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 Dumont. At baseline patient is to walk slowly because of peripheral neuropathy. In August 2018 patient had EGD done that showed severe erosive esophagitis with esophageal ulcer. readmitted July 05 underwent balloon dilatation of 10-7 mm done. admitted July 22 and underwent EGD by Dr. Carbajal. Found-severe esophagitis and distal esophageal obstruction. A 10 mm dilatation was carried out. Retained food was extracted. Found to have possible aspiration pneumonia bilateral, treat with IV Zosyn-discharge. Dr. Carbajal on Augmentin on July 26. Admitted on July 29 with orthostatic hypotension. This time patient presents with 2 days of cough fever and yellow sputum. Chills. Headache body aches tired rundown. Decreased appetite. Chest x-ray showing pneumonia. Admitted with pneumonia and sepsis. Started and IV ceftriaxone. Today-feeling a bit better. Oral intake improving. No fever. Decrease cough or sputum production. Less tired Review of systems: Was done for constitutional, cardiovascular, GI, pulmonary. relevant finding as above Active Medications Allopurinol (Zyloprim) 300 mg PO DAILY [facility] Last Admin: 12/02/19 07:24 Dose: 300 mg Documented by: Azithromycin (Zithromax) 500 mg PO DAILY@1400 [facility] Last Admin: 12/02/19 14:08 Dose: 500 mg Documented by: Cyclobenzaprine HCl (Flexeril) 10 mg PO BID [facility] Last Admin: 12/02/19 07:24 Dose: 10 mg Documented by: Enoxaparin Sodium (Lovenox) 40 mg SQ DAILY [facility] Last Admin: 12/02/19 07:24 Dose: 40 mg Documented by: Escitalopram Oxalate (Lexapro) 10 mg PO QAM [facility] Last Admin: 12/02/19 07:24 Dose: 10 mg Documented by: Sodium Chloride (Saline 0.9%) 1,000 mls @ 130 mls/hr IV .[id number] [facility] Last Admin: 12/02/19 14:09 Dose: 130 mls/hr Documented by: Ceftriaxone Sodium 1 gm/ (Sodium Chloride) 50 mls @ 100 mls/hr IVPB Q24HR [facility] Stop: 12/05/19 09:01 Last Admin: 12/02/19 07:24 Dose: 100 mls/hr Documented by: Lacosamide (Vimpat) 50 mg PO BID [facility] Last Admin: 12/02/19 07:23 Dose: 50 mg Documented by: Metoprolol Tartrate (Lopressor) 12.5 mg PO BID [facility] Last Admin: 12/02/19 07:23 Dose: 12.5 mg Documented by: Miscellaneous Information (Pneumonia Protocol Utilized) 1 each PO ONCE PRN PRN Reason: Per Protocol Non-Formulary Medication (Morphine Pain Pump) 1 mg MISCELLANE CONTINUOUS [facility] Last Admin: 12/02/19 10:45 Dose: Not Given Documented by: Oxycodone/Acetaminophen (Percocet 7.5-325) 1 each PO DAILY PRN PRN Reason: Pain Last Admin: 12/01/19 21:07 Dose: 1 each Documented by: Pantoprazole Sodium (Protonix) 40 mg PO BID [facility] Last Admin: 12/02/19 07:23 Dose: 40 mg Documented by: Pregabalin (Lyrica) 300 mg PO BID [facility] Last Admin: 12/02/19 07:23 Dose: 300 mg Documented by: Sertraline HCl (Zoloft) 50 mg PO DAILY [facility] Last Admin: 12/02/19 07:24 Dose: 50 mg Documented by: Zolpidem Tartrate (Ambien) 10 mg PO HS [facility] Last Admin: 12/01/19 21:07 Dose: 10 mg Documented by: Physical examination: VITAL SIGNS: 98.4, 73, 16, 1 or 2/67, 94% on 2 L GENERAL: Sitting up in bed today, less tired today EYES: Pupils equal. Conjunctiva normal. HEENT: External appearance of nose and ears normal, oral cavity grossly normal. NECK: JVD not raised; masses not palpable. HEART: First and second heart sounds are normal; no edema. LUNGS: Respiratory rate normal, decreased breath sounds. ABDOMEN: Soft, nontender, liver spleen not palpable, no masses palpable. Left abdominal wall has a pain pump PSYCH: Alert and oriented x3; mood and affect normal. INVESTIGATIONS, reviewed in the clinical context: White count 12.3 hemoglobin 9.8 potassium 3.9 creatinine 1.03 Previous testing White count 15.8 hemoglobin 11 platelets 115 potassium 3.7 bun 34 creatinine 1.38 EKG tracing personally reviewed by me-normal sinus rhythm on specific findings Chest x-ray film personally reviewed by me-left basilar infiltrate August 07 bun 18 and creatinine 0.98 platelets 238 Assessment: -Left lower pneumonia suspected gram-negative organism, POA improving -Sepsis from pneumonia. Improving -History of recurrent esophageal stricture with recurrent dilatation -Severe esophagitis and distal esophageal ulcer., -History of paraesophageal repair and history of sleeve gastrectomy -Essential hypertension -Primary osteoarthritis -Gout -Idiopathic peripheral neuropathy -Chronic back pain with the pain pump -Acute kidney injury likely ATN from sepsis-improving Plan: Continue with IV ceftriaxone. Decrease IV fluids. Encouraged to be out of bed. Repeat labs in the morning. Discussed with the patient.
[2019-12-02] MEDS: oxyCODONE-APAP 7.5-325MG 1 EACH TAB PO PRN (21:08)
[2019-12-02] MEDS: ZOLPIDEM 10 MG TAB PO SCH (21:09)
[2019-12-02] MEDS: LACTATED RINGERS 1,000 ML IV SCH (21:17)
[2019-12-03] MEDS: ACETAMINOPHEN TAB 500 MG TAB PO PRN ×2 (01:42→19:33)
[2019-12-03] MEDS: LACOSAMIDE 50 MG TABLET PO SCH ×2 (07:04→21:06)
[2019-12-03] MEDS: ENOXAPARIN 40 MG/0.4 ML SYRINGE SQ SCH (07:04)
[2019-12-03] MEDS: SERTRALINE 50 MG TAB PO SCH (07:04)
[2019-12-03] MEDS: PANTOPRAZOLE 40 MG TABLET PO SCH ×2 (07:04→21:05)
[2019-12-03] MEDS: CYCLOBENZAPRINE 10 MG TAB PO SCH ×2 (07:04→21:06)
[2019-12-03] MEDS: METOPROLOL TARTRATE 12.5 MG TAB PO SCH ×2 (07:04→21:06)
[2019-12-03] MEDS: PREGABALIN 100 MG CAP PO SCH ×2 (07:04→21:05)
[2019-12-03] MEDS: ESCITALOPRAM 10 MG TAB PO SCH (07:04)
[2019-12-03] MEDS: ALLOPURINOL 300 MG TAB PO SCH (07:04)
[2019-12-03] MEDS: LACTATED RINGERS 1,000 ML IV SCH ×2 (07:53→21:11)
[2019-12-03 08:14] LABS: Anisocytosis Slight; Hypochromasia Marked; MCH 26.7 pg (25.0-35.0); MCHC 29.9 g/dL (31.0-37.0); MCV 89.3 fL (80.0-100.0); Mean Platelet Volume 11.3; RBC 3.36 m/uL (4.30-5.90); RDW 16.2 % (11.5-15.5); WBC 13.4 k/uL (3.8-10.6)
[2019-12-03 08:29] LABS: Platelet Count 96 k/uL (150-450)
[2019-12-03 08:35] LABS: African American GFR (CKD) >90 (>60 ml/min/1.73 sqM); Anion Gap 6 mmol/L; Blood Urea Nitrogen 19 mg/dL (9-20); Calcium 7.7 mg/dL (8.4-10.2); Carbon Dioxide 25 mmol/L (22-30); Chloride 105 mmol/L (98-107); Glucose 94 mg/dL (74-99); Non-African American GFR(CKD) >90 (>60 ml/min/1.73 sqM); Potassium 3.5 mmol/L (3.5-5.1); Sodium 136 mmol/L (137-145)
[2019-12-03] MEDS: MORPHINE MISCELLANE SCH (09:28)
[2019-12-03] MEDS: CEFEPIME 1 GM in SODIUM CHLORIDE 0.9% 50 ML IVPB SCH ×2 (12:40→21:05)
[2019-12-03] MEDS: ZOLPIDEM 10 MG TAB PO SCH (21:05)
--- NOTE | 2019-12-03 21:28 | P.PN ---
Progress Note - Text Progress Note Date: 12/03/19 Chief Complaint: Cough short of breath History of presenting complaint: This is a very pleasant 54-year-old patient of Dr. Alexandrea Ang. stable medical conditions include hypertension, , gout, chronic bilateral hip pain, peripheral neuropathy. gastric [place] [address] Zarate. 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 Dumont. At baseline patient is to walk slowly because of peripheral neuropathy. In August 2018 patient had EGD done that showed severe erosive esophagitis with esophageal ulcer. readmitted July 05 underwent balloon dilatation of 10-7 mm done. admitted July 22 and underwent EGD by Dr. Carbajal. Found-severe esophagitis and distal esophageal obstruction. A 10 mm dilatation was carried out. Retained food was extracted. Found to have possible aspiration pneumonia bilateral, treat with IV Zosyn-discharge. Dr. Carbajal on Augmentin on July 26. Admitted on July 29 with orthostatic hypotension. This time patient presents with 2 days of cough fever and yellow sputum. Chills. Headache body aches tired rundown. Decreased appetite. Chest x-ray showing pneumonia. Admitted with pneumonia and sepsis. Started and IV ceftriaxone. Today-had low-grade fever. Sputum is clearing up. Appetite is slowly improving. Less tired. Review of systems: Was done for constitutional, cardiovascular, GI, pulmonary. relevant finding as above Active Medications Acetaminophen (Tylenol Tab) 500 mg PO Q4HR PRN PRN Reason: Fever and/ or Pain Last Admin: 12/03/19 19:33 Dose: 500 mg Documented by: Allopurinol (Zyloprim) 300 mg PO DAILY [facility] Last Admin: 12/03/19 07:04 Dose: 300 mg Documented by: Cyclobenzaprine HCl (Flexeril) 10 mg PO BID [facility] Last Admin: 12/03/19 21:06 Dose: 10 mg Documented by: Enoxaparin Sodium (Lovenox) 40 mg SQ DAILY [facility] Last Admin: 12/03/19 07:04 Dose: 40 mg Documented by: Escitalopram Oxalate (Lexapro) 10 mg PO QAM [facility] Last Admin: 12/03/19 07:04 Dose: 10 mg Documented by: Lactated Ringer's (Lactated Ringers) 1,000 mls @ 75 mls/hr IV .[id number] [facility] Last Admin: 12/03/19 21:11 Dose: 75 mls/hr Documented by: Cefepime HCl 1 gm/ Sodium (Chloride) 50 mls @ 100 mls/hr IVPB Q12HR [facility] Last Admin: 12/03/19 21:05 Dose: 100 mls/hr Documented by: Lacosamide (Vimpat) 50 mg PO BID [facility] Last Admin: 12/03/19 21:06 Dose: 50 mg Documented by: Metoprolol Tartrate (Lopressor) 12.5 mg PO BID [facility] Last Admin: 12/03/19 21:06 Dose: Not Given Documented by: Miscellaneous Information (Pneumonia Protocol Utilized) 1 each PO ONCE PRN PRN Reason: Per Protocol Non-Formulary Medication (Morphine Pain Pump) 1 mg MISCELLANE CONTINUOUS [facility] Last Admin: 12/03/19 09:28 Dose: Not Given Documented by: Oxycodone/Acetaminophen (Percocet 7.5-325) 1 each PO DAILY PRN PRN Reason: Pain Last Admin: 12/02/19 21:08 Dose: 1 each Documented by: Pantoprazole Sodium (Protonix) 40 mg PO BID [facility] Last Admin: 12/03/19 21:05 Dose: 40 mg Documented by: Pregabalin (Lyrica) 300 mg PO BID [facility] Last Admin: 12/03/19 21:05 Dose: 300 mg Documented by: Sertraline HCl (Zoloft) 50 mg PO DAILY [facility] Last Admin: 12/03/19 07:04 Dose: 50 mg Documented by: Zolpidem Tartrate (Ambien) 10 mg PO HS [facility] Last Admin: 12/03/19 21:05 Dose: 10 mg Documented by: Physical examination: VITAL SIGNS: 100.5, 81, 14, 118 over sitting 6, 92% on 4 L GENERAL: Laying in bed, awake EYES: Pupils equal. Conjunctiva normal. HEENT: External appearance of nose and ears normal, oral cavity grossly normal. NECK: JVD not raised; masses not palpable. HEART: First and second heart sounds are normal; no edema. LUNGS: Respiratory rate normal, decreased breath sounds. ABDOMEN: Soft, nontender, liver spleen not palpable, no masses palpable. Left abdominal wall has a pain pump PSYCH: Alert and oriented x3; mood and affect normal. INVESTIGATIONS, reviewed in the clinical context: White count 13.4 hemoglobin 9 platelets 96 potassium 3.5 creatinine 0.89 Previous testing White count 15.8 hemoglobin 11 platelets 115 potassium 3.7 bun 34 creatinine 1.38 EKG tracing personally reviewed by me-normal sinus rhythm on specific findings Chest x-ray film personally reviewed by me-left basilar infiltrate August 07 bun 18 and creatinine 0.98 platelets 238 Assessment: -Left lower pneumonia suspected gram-negative organism, POA slow to respond. Patient having again low-grade fevers. -Sepsis from pneumonia. Improving -History of recurrent esophageal stricture with recurrent dilatation -Severe esophagitis and distal esophageal ulcer., -History of paraesophageal repair and history of sleeve gastrectomy -Essential hypertension -Primary osteoarthritis -Gout -Idiopathic peripheral neuropathy -Chronic back pain with the pain pump -Acute kidney injury likely ATN from sepsis-improving Plan: -Discussed with the patient. We'll switch the antibiotic to IV cefepime. Encouraged to be out of bed on the chair. Repeat CBC pro calcitonin the morning. Also repeat chest x-ray.
[2019-12-04] MEDS: SERTRALINE 50 MG TAB PO SCH (08:06)
[2019-12-04] MEDS: ENOXAPARIN 40 MG/0.4 ML SYRINGE SQ SCH (08:06)
[2019-12-04] MEDS: LACOSAMIDE 50 MG TABLET PO SCH ×2 (08:06→20:16)
[2019-12-04] MEDS: METOPROLOL TARTRATE 12.5 MG TAB PO SCH ×2 (08:06→20:16)
[2019-12-04] MEDS: PANTOPRAZOLE 40 MG TABLET PO SCH ×2 (08:06→20:16)
[2019-12-04] MEDS: PREGABALIN 100 MG CAP PO SCH ×2 (08:06→20:16)
[2019-12-04] MEDS: ALLOPURINOL 300 MG TAB PO SCH (08:06)
[2019-12-04] MEDS: CYCLOBENZAPRINE 10 MG TAB PO SCH ×2 (08:06→20:16)
[2019-12-04] MEDS: ESCITALOPRAM 10 MG TAB PO SCH (08:08)
[2019-12-04] MEDS: CEFEPIME 1 GM in SODIUM CHLORIDE 0.9% 50 ML IVPB SCH ×2 (08:15→20:16)
[2019-12-04 09:27] LABS: Anisocytosis Slight; HCT 30.7 % (39.0-53.0); HGB 9.3 gm/dL (13.0-17.5); Hypochromasia Marked; MCH 26.9 pg (25.0-35.0); MCHC 30.2 g/dL (31.0-37.0); MCV 88.9 fL (80.0-100.0); Mean Platelet Volume 11.1; Platelet Count 111 k/uL (150-450); RBC 3.45 m/uL (4.30-5.90); RDW 16.2 % (11.5-15.5); WBC 12.7 k/uL (3.8-10.6)
[2019-12-04] MEDS: MORPHINE MISCELLANE SCH (12:55)
[2019-12-04] MEDS: LACTATED RINGERS 1,000 ML IV SCH (12:55)
--- NOTE | 2019-12-04 13:40 | US ---
EXAMINATION TYPE: US scrotum with doppler. Grayscale and color Doppler Duplex imaging performed of augusta luna scrotum. DATE OF EXAM: 12/04/2019 COMPARISON: NONE CLINICAL HISTORY: acute painful scrotal swelling. EXAM MEASUREMENTS: TESTICLES: Right Testicle: 3.5 X 2.2 X 2.6 cm Left Testicle: 2.0 X 2.2 X 2.4 cm EPIDIDYMIS HEAD: Right Epididymis: 2.0 cm Left Epididymis: not visualized Doppler performed to assess for testicular vascularity; good bilateral color flow and waveforms are s een. There is no evidence of testicular torsion. Presence of hydroceles: no Presence of varicoceles: not assessed due to extensive swelling Patient has severe swelling, testicles the size of oranges. Skin thickening and edematous tissue surr ounding testicles. Small cyst left measuring 0.3 x 0.2 x 0.3cm. Increased vascularity seen bilateral ly in epididymis worse on right. Heterogeneous testicles bilaterally. Both testicles are edematous and hyperemic. There is increased flow in the epididymides bilaterally. There are small, bilateral hydroceles. IMPRESSION: FINDINGS CONSISTENT WITH FAIRLY SEVERE EPIDIDYMOORCHITIS.
[2019-12-04 17:50] LABS: Appearance,Urine Clear (Clear); Bilirubin,Urine Negative (Negative); Blood,Urine Moderate (Negative); Color,Urine Yellow; Glucose,Urine (UA) Negative (Negative); Ketones,Urine Negative (Negative); Leukocyte Esterase,Urine Small (Negative); Nitrite,Urine Negative (Negative); Protein,Urine 1+ (Negative); RBC,Urine 11 /hpf (0-5); Specific Gravity,Urine 1.016 (1.001-1.035); Squamous Epithelial Cell,Urine <1 /hpf (0-4); WBC,Urine 3 /hpf (0-5)
--- NOTE | 2019-12-04 18:15 | P.PN ---
Progress Note - Text Progress Note Date: 12/04/19 Chief Complaint: Cough short of breath History of presenting complaint: This is a very pleasant 54-year-old patient of Dr. Alexandrea Ang. stable medical conditions include hypertension, , gout, chronic bilateral hip pain, peripheral neuropathy. gastric sleeve [place] [address] Zarate. 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 Dumont. At baseline patient is to walk slowly because of peripheral neuropathy. In August 2018 patient had EGD done that showed severe erosive esophagitis with esophageal ulcer. readmitted July 05 underwent balloon dilatation of 10-7 mm done. admitted July 22 and underwent EGD by Dr. Carbajal. Found-severe esophagitis and distal esophageal obstruction. A 10 mm dilatation was carried out. Retained food was extracted. Found to have possible aspiration pneumonia bilateral, treat with IV Zosyn-discharge. Dr. Carbajal on Augmentin on July 26. Admitted on July 29 with orthostatic hypotension. This time patient presents with 2 days of cough fever and yellow sputum. Chills. Headache body aches tired rundown. Decreased appetite. Chest x-ray showing pneumonia. Admitted with pneumonia and sepsis. Started and IV ceftriaxone.on December 02 antibiotic changed to cefepime because of fever. Today-slight cough. Clear sputum. Patient is to rule out significant swelling of the scrotum since yesterday. Tender.denies any injury. Review of systems: Was done for constitutional, cardiovascular, GI, pulmonary. relevant finding as above Active Medications Acetaminophen (Tylenol Tab) 500 mg PO Q4HR PRN PRN Reason: Fever and/ or Pain Last Admin: 12/03/19 19:33 Dose: 500 mg Documented by: Allopurinol (Zyloprim) 300 mg PO DAILY [facility] Last Admin: 12/04/19 08:06 Dose: 300 mg Documented by: Cyclobenzaprine HCl (Flexeril) 10 mg PO BID [facility] Last Admin: 12/04/19 08:06 Dose: 10 mg Documented by: Enoxaparin Sodium (Lovenox) 40 mg SQ DAILY [facility] Last Admin: 12/04/19 08:06 Dose: 40 mg Documented by: Escitalopram Oxalate (Lexapro) 10 mg PO QAM [facility] Last Admin: 12/04/19 08:08 Dose: 10 mg Documented by: Cefepime HCl 1 gm/ Sodium (Chloride) 50 mls @ 100 mls/hr IVPB Q12HR [facility] Last Admin: 12/04/19 08:15 Dose: 100 mls/hr Documented by: Lactated Ringer's (Lactated Ringers) 1,000 mls @ 10 mls/hr IV .Q24H [facility] Last Admin: 12/04/19 12:55 Dose: Not Given Documented by: Lacosamide (Vimpat) 50 mg PO BID [facility] Last Admin: 12/04/19 08:06 Dose: 50 mg Documented by: Metoprolol Tartrate (Lopressor) 12.5 mg PO BID [facility] Last Admin: 12/04/19 08:06 Dose: 12.5 mg Documented by: Miscellaneous Information (Pneumonia Protocol Utilized) 1 each PO ONCE PRN PRN Reason: Per Protocol Non-Formulary Medication (Morphine Pain Pump) 1 mg MISCELLANE CONTINUOUS [facility] Last Admin: 12/04/19 12:55 Dose: Not Given Documented by: Oxycodone/Acetaminophen (Percocet 7.5-325) 1 each PO DAILY PRN PRN Reason: Pain Last Admin: 12/02/19 21:08 Dose: 1 each Documented by: Pantoprazole Sodium (Protonix) 40 mg PO BID [facility] Last Admin: 12/04/19 08:06 Dose: 40 mg Documented by: Pregabalin (Lyrica) 300 mg PO BID [facility] Last Admin: 12/04/19 08:06 Dose: 300 mg Documented by: Sertraline HCl (Zoloft) 50 mg PO DAILY [facility] Last Admin: 12/04/19 08:06 Dose: 50 mg Documented by: Zolpidem Tartrate (Ambien) 10 mg PO HS [facility] Last Admin: 12/03/19 21:05 Dose: 10 mg Documented by: Physical examination: VITAL SIGNS: T-max 101.9 yesterday, afebrile today, pulse 91, respirations 17, blood pressure 112/72, 92% on 3 L GENERAL:sitting up in a chair EYES: Pupils equal. Conjunctiva normal. HEENT: External appearance of nose and ears normal, oral cavity grossly normal. NECK: JVD not raised; masses not palpable. HEART: First and second heart sounds are normal; no edema. LUNGS: Respiratory rate normal, decreased breath sounds. ABDOMEN: Soft, nontender, liver spleen not palpable, no masses palpable. Left abdominal wall has a pain pump . Scrotum distended tender, penis submerged PSYCH: Alert and oriented x3; mood and affect normal. INVESTIGATIONS, reviewed in the clinical context: white count 12.7 hemoglobin 9.3 scrotal also shown significant edema-suggestive of fairly severe epididymoorchitis Previous testing White count 15.8 hemoglobin 11 platelets 115 potassium 3.7 bun 34 creatinine 1.38pro calcitonin 4.11 EKG tracing personally reviewed by me-normal sinus rhythm on specific findings Chest x-ray film personally reviewed by me-left basilar infiltrate August 07 bun 18 and creatinine 0.98 platelets 238 Assessment: -Left lower pneumonia suspected gram-negative organism, POA slow to respond. Patient having again low-grade fevers.-clinically improving with antibiotic been changed to cefepime yesterday -Sepsis from pneumonia. Improving -Acute painful swelling of the scrotum, tender -History of recurrent esophageal stricture with recurrent dilatation -Severe esophagitis and distal esophageal ulcer., -History of paraesophageal repair and history of sleeve gastrectomy -Essential hypertension -Primary osteoarthritis -Gout -Idiopathic peripheral neuropathy -Chronic back pain with the pain pump -Acute kidney injury likely ATN from sepsis-improving Plan: -scrotal ultrasound has been ordered. Consultation to urology has been done.continue with antibiotics. Elevate scrotum.
[2019-12-04] MEDS: ACETAMINOPHEN TAB 500 MG TAB PO PRN (18:58)
[2019-12-04] MEDS: ZOLPIDEM 10 MG TAB PO SCH (20:17)
[2019-12-05 08:18] LABS: Anisocytosis Slight; HCT 34.6 % (39.0-53.0); HGB 10.2 gm/dL (13.0-17.5); Hypochromasia Marked; MCH 26.2 pg (25.0-35.0); MCHC 29.3 g/dL (31.0-37.0); MCV 89.5 fL (80.0-100.0); Mean Platelet Volume 10.3; Platelet Count 111 k/uL (150-450); RBC 3.87 m/uL (4.30-5.90); RDW 16.1 % (11.5-15.5)
[2019-12-05] MEDS: CEFEPIME 1 GM in SODIUM CHLORIDE 0.9% 50 ML IVPB SCH ×2 (08:18→20:09)
[2019-12-05] MEDS: ENOXAPARIN 40 MG/0.4 ML SYRINGE SQ SCH (08:19)
[2019-12-05] MEDS: SERTRALINE 50 MG TAB PO SCH (08:19)
[2019-12-05] MEDS: PREGABALIN 100 MG CAP PO SCH ×2 (08:19→20:09)
[2019-12-05] MEDS: ALLOPURINOL 300 MG TAB PO SCH (08:19)
[2019-12-05] MEDS: METOPROLOL TARTRATE 12.5 MG TAB PO SCH ×2 (08:19→19:51)
[2019-12-05] MEDS: ESCITALOPRAM 10 MG TAB PO SCH (08:20)
[2019-12-05] MEDS: LACOSAMIDE 50 MG TABLET PO SCH ×2 (08:20→20:09)
[2019-12-05] MEDS: CYCLOBENZAPRINE 10 MG TAB PO SCH ×2 (08:20→20:09)
[2019-12-05] MEDS: PANTOPRAZOLE 40 MG TABLET PO SCH ×2 (08:20→20:09)
[2019-12-05 08:32] LABS: African American GFR (CKD) >90 (>60 ml/min/1.73 sqM); Anion Gap 6 mmol/L; Blood Urea Nitrogen 13 mg/dL (9-20); Calcium 8.3 mg/dL (8.4-10.2); Carbon Dioxide 27 mmol/L (22-30); Chloride 103 mmol/L (98-107); Glucose 99 mg/dL (74-99); Non-African American GFR(CKD) >90 (>60 ml/min/1.73 sqM); Sodium 136 mmol/L (137-145)
[2019-12-05] MEDS ORDERED: VANCOMYCIN IV PER PHARMACY 1 EACH MISC MISCELLANE PRN (09:36)
--- NOTE | 2019-12-05 09:56 | P.GSCN ---
History of Present Illness Consult date: 12/05/19 Reason for Consult: Scrotal swelling History of present illness: Mr. Heaton is 54 yo male admitted to the Hospital with Pneumonia. He indicated for the past 3 days he is noticed scrotal swelling, of not he has hx of lower extremity swelling but denies any hx of scrotal swelling. He indicated yesterday swelling became more significant and tender, Denies any change in swelling or pain since yesterday. He was febrile on admission but was afebrile overnight. He denies any urinary issues at baseline, no hx of UTI. PVR yesterday showed 630 mL, and mckinney catheter was placed. scrotal U/S yesterday demonstrated bilateral orchitis Review of Systems - Constitutional Reports fever, Reports weakness, Denies chills - Cardiovascular Reports edema, Denies chest pain - Respiratory Reports cough, Reports respiratory infections - Gastrointestinal Denies abdominal pain, Denies nausea, Denies vomiting - Genitourinary Reports urinary retention, Denies dysuria, Denies flank pain, Denies kidney stones - Neurological Reports weakness, Denies confusion Past Medical History Past Medical History: CVA/TIA, GERD/Reflux, Hypertension, Osteoarthritis (OA), Pneumonia Additional Past Medical History / Comment(s): hiatal hernia, gout, neuropathy marta legs and feet- states feet are numb, some numbness in legs & tingling in hands., chronic back pain., constipation., dysphagia-hx of EGD with dilation, 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 BILATERAL KNEE arthroscopy, BILATERAL HIP replacement, LEFT SHOULDER replacement, LEFT ACHILES TENDON SX., RIGHT BIG TOE, echocardiolgram, spinal fusion, EGD with dilation., STATES HX OF PNEUMONIA WITH LUNG SURGERY., REPAIR OF HIATAL HERNIA & LYSIS OF ADHESIONS Past Anesthesia/Blood Transfusion Reactions: No Reported Reaction Past Psychological History: Anxiety, Depression Smoking Status: Former smoker Past Alcohol Use History: None Reported Additional Past Alcohol Use History / Comment(s): quit smoking 2017, smoked since age 21, 1 PPD Past Drug Use History: None Reported - Past Family History Father Family Medical History: Cancer Additional Family Medical History / Comment(s): lung Mother Family Medical History: Coronary Artery Disease (CAD), Hypertension Medications and Allergies Home Medications Medication Instructions Recorded Confirmed Type Allopurinol [Zyloprim] 300 mg PO DAILY 06/04/16 12/01/19 History Cyclobenzaprine [Flexeril] 10 mg PO BID 06/04/16 12/01/19 History Escitalopram [Lexapro] 10 mg PO QAM 06/04/16 12/01/19 History Lacosamide [Vimpat] 50 mg PO BID 03/25/18 12/01/19 History Zolpidem Tartrate [Ambien] 10 mg PO HS 03/25/18 12/01/19 History Ergocalciferol (Vitamin D2) 50,000 unit PO MO 06/19/18 12/01/19 History [Vitamin D2] Pregabalin [Lyrica] 300 mg PO BID 07/17/18 12/01/19 History oxyCODONE-APAP 7.5-325MG [Percocet 1 tab PO DAILY PRN 07/01/19 12/01/19 History 7.5-325 mg] Omeprazole 40 mg PO BID #60 cap 07/06/19 12/01/19 Rx Sucralfate [Carafate] 1 gm PO BID #60 tablet 07/06/19 12/01/19 Rx Morphine Pain Pump 1 mg INTRATHECA CONTINUOUS 07/20/19 12/01/19 History Sertraline [Zoloft] 50 mg PO DAILY 07/20/19 12/01/19 History Metoprolol Tartrate [Lopressor] 12.5 mg PO BID #60 tab 07/30/19 12/01/19 Rx Furosemide [Lasix] 20 mg PO DAILY 12/01/19 12/01/19 History Ibuprofen 800 mg PO TID PRN 12/01/19 12/01/19 History Lisinopril [Zestril] 2.5 mg PO DAILY 12/01/19 12/01/19 History Allergies Allergy/AdvReac Type Severity Reaction Status Date / Time No Known Allergies Allergy Verified 12/01/19 11:02 Surgical - Exam Vital Signs Temp Pulse Resp BP Pulse Ox 102.7 F H 66 20 98/58 91 L 12/01/19 11:00 12/01/19 11:00 12/01/19 11:00 12/01/19 11:00 12/01/19 11:00 - General well developed, well nourished, no distress - Eyes PERRL, normal ocular movement - ENT normal nares, normal mucosa, no hearing loss - Respiratory normal expansion, normal respiratory effort - Cardiovascular bilateral pitting lower extremity edema - Abdomen Abdomen: soft, non tender - Genitourinary scrotal erythema and swelling. erythema and swelling extend to pubis. No fluctance or crepitus appreciated. Tenderness along the scrotum and pubis. unable to plapate testicle and cord secondary to swelling mckinney in place draining clear yellow urine - Psychiatric oriented to time, oriented to person, oriented to place Results - Labs 12/05/19 07:50 12/05/19 07:50 Abnormal Lab Results - Last 24 Hours (Table) 12/04/19 12/04/19 12/05/19 Range/Units 08:35 17:15 07:50 WBC 14.0 H (3.8-10.6) k/uL RBC 3.87 L (4.30-5.90) m/uL Hgb 10.2 L (13.0-17.5) gm/dL Hct 34.6 L (39.0-53.0) % MCHC 29.3 L (31.0-37.0) g/dL RDW 16.1 H (11.5-15.5) % Plt Count 111 L (150-450) k/uL Sodium (137-145) mmol/L Calcium (8.4-10.2) mg/dL Procalcitonin 4.11 H (0.02-0.09) ng/mL Urine Protein 1+ H (Negative) Urine Blood Moderate H (Negative) Ur Leukocyte Esterase Small H (Negative) Urine RBC 11 H (0-5) /hpf 12/05/19 Range/Units 07:50 WBC (3.8-10.6) k/uL RBC (4.30-5.90) m/uL Hgb (13.0-17.5) gm/dL Hct (39.0-53.0) % MCHC (31.0-37.0) g/dL RDW (11.5-15.5) % Plt Count (150-450) k/uL Sodium 136 L (137-145) mmol/L Calcium 8.3 L (8.4-10.2) mg/dL Procalcitonin (0.02-0.09) ng/mL Urine Protein (Negative) Urine Blood (Negative) Ur Leukocyte Esterase (Negative) Urine RBC (0-5) /hpf Microbiology - Last 24 Hours (Table) 12/01/19 11:36 Blood Culture - Preliminary Blood No Growth after 72 hours Diabetes panel 12/05/19 Range/Units 07:50 Sodium 136 L (137-145) mmol/L Potassium 4.0 (3.5-5.1) mmol/L Chloride 103 (98-107) mmol/L Carbon Dioxide 27 (22-30) mmol/L BUN 13 (9-20) mg/dL Creatinine 0.92 (0.66-1.25) mg/dL Glucose 99 (74-99) mg/dL Calcium 8.3 L (8.4-10.2) mg/dL Calcium panel 12/05/19 Range/Units 07:50 Calcium 8.3 L (8.4-10.2) mg/dL Pituitary panel 12/05/19 Range/Units 07:50 Sodium 136 L (137-145) mmol/L Potassium 4.0 (3.5-5.1) mmol/L Chloride 103 (98-107) mmol/L Carbon Dioxide 27 (22-30) mmol/L BUN 13 (9-20) mg/dL Creatinine 0.92 (0.66-1.25) mg/dL Glucose 99 (74-99) mg/dL Calcium 8.3 L (8.4-10.2) mg/dL Adrenal panel 12/05/19 Range/Units 07:50 Sodium 136 L (137-145) mmol/L Potassium 4.0 (3.5-5.1) mmol/L Chloride 103 (98-107) mmol/L Carbon Dioxide 27 (22-30) mmol/L BUN 13 (9-20) mg/dL Creatinine 0.92 (0.66-1.25) mg/dL Glucose 99 (74-99) mg/dL Calcium 8.3 L (8.4-10.2) mg/dL Assessment and Plan Assessment: 54 yo male admitted to the hospital with pneumonia. Urology is consulted for scrotal edema and cellulitis. Scrotal U/S demonstrated bilateral orchitis. No crepitus or fluctance appreciated on exam Plan: 1.Scrotal cellulitis -Continue cefepime, recommend adding gram positive coverage, will add vancomycin at this time -CT pelvis -Elevate scrotum 2. Urinary retention, PVR 630 mL -Start flomax -TOV in 7 days
[2019-12-05] MEDS ORDERED: VANCOMYCIN 2,250 MG in SODIUM CHLORIDE 0.9% 500 ML 500 ML IVPB ONE (11:00)
--- NOTE | 2019-12-05 11:24 | CT ---
EXAMINATION TYPE: CT pelvis w con DATE OF EXAM: 12/05/2019 REFERENCE: NONE HISTORY: cellulitis of scrotum REFERENCE: NONE CT DLP: 2411.7 mGy Automated exposure control for dose reduction was used. TECHNIQUE: Helical acquisition through the abdomen and pelvis was obtained following the oral ingesti on of without Oral Contrast and following intravenous administration of 100 mL of Isovue 300. The joel a was reformatted in axial, coronal and sagittal projections. FINDINGS: There are bilateral hip prostheses in place causing moderately severe streak artifact thro ugh the pelvis. A metallic stimulator overlies the left lower quadrant. There are bubbles of air in both sides of the scrotum, greater on the right than the left. This appea rs to reverse and cranially towards the right inguinal region and right femoral region. There is gene ralized anasarca in the lower abdomen. There is confluent soft tissue in the superficial soft tissues of the left lower quadrant. There is degenerative disc disease and hypertrophic spondylosis within t he lower lumbar spine. At no time is contrast identified on this study. IMPRESSION: #1 SUBCUTANEOUS AIR WITHIN THE SCROTUM BILATERALLY AND EXTENDING UP A SUBCUTANEOUS EMPHYS DEAN INTO THE RIGHT INGUINAL AND FEMORAL REGIONS. 2. NO DRAINABLE ABSCESS SEEN AT THIS TIME. 3. GENERALIZED ANASARCA. 4. SOFT TISSUE OPACITY IN THE LEFT LOWER QUADRANT MAY REPRESENT HEMATOMA OR MORE CONFLUENT INFLAMMATI ON. 5. DEGENERATIVE CHANGES WITHIN THE SPINE. 6. BILATERAL HIP PROSTHESES CAUSING MODERATE STREAK ARTIFACT WITHIN THE PELVIS.
[2019-12-05] MEDS ORDERED: LACTULOSE 20 GM/30 ML CUP PO ONE (12:05)
[2019-12-05] MEDS: MORPHINE MISCELLANE SCH (14:19)
--- NOTE | 2019-12-05 16:31 | P.PN ---
Progress Note - Text Progress Note Date: 12/05/19 CT Abd/pelvis Showed evidence of air tracking from the posterior scrotum extending all the way up to the right inguinal ring. 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 I discussed with him given this finding I recommend that we proceed to the OR for surgical debridement. I discussed the potential of needing repeat debridement, also discussed with him the possibility of right orchiectomy. Also discussed the potential of him needing future graft once everything heals up. He understood all the risk and agreed to proceed with surgical debridement and possible right orchiectomy.
[2019-12-05] MEDS ORDERED: LACTATED RINGERS 1,000 ML IV ONE ×2 (16:50)
[2019-12-05] MEDS ORDERED: SUCCINYLCHOLINE CHLORIDE 100 MG/5 ML SYR IV ONE (16:51)
[2019-12-05] MEDS ORDERED: PHENYLEPHRINE-0.9% NACL SYG 1 MG/10 ML SYRINGE ONE (16:51)
[2019-12-05] MEDS ORDERED: PROPOFOL 10 MG/ML 20 ML VIAL IV ONE (16:51)
[2019-12-05] MEDS ORDERED: LIDOCAINE 1% INJ 10MG/ML (20 ML MDV) ONE (16:51)
[2019-12-05] MEDS ORDERED: MIDAZOLAM 2 MG/2 ML VIAL ONE (16:51)
[2019-12-05] MEDS ORDERED: fentaNYL (PF) 50 MCG/ML 2 ML AMP ONE (16:51)
--- NOTE | 2019-12-05 17:55 | P.PN ---
Progress Note - Text Progress Note Date: 12/05/19 Chief Complaint: Cough short of breath History of presenting complaint: This is a very pleasant 54-year-old patient of Dr. Alexandrea Ang. stable medical conditions include hypertension, , gout, chronic bilateral hip pain, peripheral neuropathy. gastric [place] [address] Zarate. 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 Dumont. At baseline patient is to walk slowly because of peripheral neuropathy. In August 2018 patient had EGD done that showed severe erosive esophagitis with esophageal ulcer. readmitted July 05 underwent balloon dilatation of 10-7 mm done. admitted July 22 and underwent EGD by Dr. Carbajal. Found-severe esophagitis and distal esophageal obstruction. A 10 mm dilatation was carried out. Retained food was extracted. Found to have possible aspiration pneumonia bilateral, treat with IV Zosyn-discharge. Dr. Carbajal on Augmentin on July 26. Admitted on July 29 with orthostatic hypotension. This time patient presents with 2 days of cough fever and yellow sputum. Chills. Headache body aches tired rundown. Decreased appetite. Chest x-ray showing pneumonia. Admitted with pneumonia and sepsis. Started and IV ceftriaxone.on December 02 antibiotic changed to cefepime because of fever. Patient then developed painful swelling of the scrotum. Today-pain swelling of the scrotum persist. 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 Patient became to the operating room. Complaining lower abdominal tenderness Review of systems: Was done for constitutional, cardiovascular, GI, pulmonary. relevant finding as above Active Medications Acetaminophen (Tylenol Tab) 500 mg PO Q4HR PRN PRN Reason: Fever and/ or Pain Last Admin: 12/04/19 18:58 Dose: 500 mg Documented by: Allopurinol (Zyloprim) 300 mg PO DAILY [facility] Last Admin: 12/05/19 08:19 Dose: 300 mg Documented by: Cyclobenzaprine HCl (Flexeril) 10 mg PO BID [facility] Last Admin: 12/05/19 08:20 Dose: 10 mg Documented by: Escitalopram Oxalate (Lexapro) 10 mg PO QAM [facility] Last Admin: 12/05/19 08:20 Dose: 10 mg Documented by: Cefepime HCl 1 gm/ Sodium (Chloride) 50 mls @ 100 mls/hr IVPB Q12HR [facility] Last Admin: 12/05/19 08:18 Dose: 100 mls/hr Documented by: Lactated Ringer's (Lactated Ringers) 1,000 mls @ 10 mls/hr IV .Q24H [facility] Last Admin: 12/04/19 12:55 Dose: Not Given Documented by: Vancomycin HCl 2,000 mg/ (Sodium Chloride) 500 mls @ 167 mls/hr IVPB Q8H [facility] Lacosamide (Vimpat) 50 mg PO BID [facility] Last Admin: 12/05/19 08:20 Dose: 50 mg Documented by: Metoprolol Tartrate (Lopressor) 12.5 mg PO BID [facility] Last Admin: 12/05/19 08:19 Dose: 12.5 mg Documented by: Miscellaneous Information (Pneumonia Protocol Utilized) 1 each PO ONCE PRN PRN Reason: Per Protocol Non-Formulary Medication (Morphine Pain Pump) 1 mg MISCELLANE CONTINUOUS [facility] Last Admin: 12/05/19 14:19 Dose: Not Given Documented by: Oxycodone/Acetaminophen (Percocet 7.5-325) 1 each PO DAILY PRN PRN Reason: Pain Last Admin: 12/02/19 21:08 Dose: 1 each Documented by: Pantoprazole Sodium (Protonix) 40 mg PO BID [facility] Last Admin: 12/05/19 08:20 Dose: 40 mg Documented by: Pregabalin (Lyrica) 300 mg PO BID [facility] Last Admin: 12/05/19 08:19 Dose: 300 mg Documented by: Sertraline HCl (Zoloft) 50 mg PO DAILY [facility] Last Admin: 12/05/19 08:19 Dose: 50 mg Documented by: Tamsulosin HCl (Flomax) 0.4 mg PO DAILY [facility] Zolpidem Tartrate (Ambien) 10 mg PO HS [facility] Last Admin: 12/04/19 20:17 Dose: Not Given Documented by: Physical examination: VITAL SIGNS: 100.5, 87, 16, 119/76, 98% on 2 L GENERAL:sitting up in a chair EYES: Pupils equal. Conjunctiva normal. HEENT: External appearance of nose and ears normal, oral cavity grossly normal. NECK: JVD not raised; masses not palpable. HEART: First and second heart sounds are normal; no edema. LUNGS: Respiratory rate normal, decreased breath sounds. ABDOMEN: Soft, nontender, liver spleen not palpable, no masses palpable. Left abdominal wall has a pain pump . Scrotum distended tender, penis submerged PSYCH: Alert and oriented x3; mood and affect normal. INVESTIGATIONS, reviewed in the clinical context: White count 14 hemoglobin 10.2 potassium 4 creatinine 0.9 to Computed tomography scan pelvis-subcutaneously reviewed in the scrotum bilaterally and extending up to subcutaneous emphysema into the right inguinal and femoral regions. 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 Vancomycin was added. We'll consult infectious disease. P atient due to go down for surgery later today.
[2019-12-05] MEDS ORDERED: HYDROmorphone 1 MG/ML 1 ML SYRINGE IVP ONE ×2 (18:12→18:19)
--- NOTE | 2019-12-05 18:22 | P.OP ---
Date of Procedure: 12/05/19 Preoperative Diagnosis: Shobha's gangrene Postoperative Diagnosis: Same Procedure(s) Performed: Surgical debridement of the right hemiscrotum ( >10 cm), cystoscopy Implants: None Anesthesia: JASON Surgeon: Jose Manuel Cunha Pathology: other (Wound culture) Condition: stable Disposition: PACU Indications for Procedure: Mr. Heaton is a 54-year-old male with history of cellulitis of the scrotum, he underwent CT Abd/pelvis Showed evidence of air tracking from the posterior scrot um extending all the way up to the right inguinal ring. 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 I discussed with him given this finding I recommend that we proceed to the OR for surgical debridement. I discussed the potential of needing repeat debridement, also discussed with him the possibility of right orchiectomy. Also discussed the potential of him needing future graft once everything heals up. He understood all the risk and agreed to proceed with surgical debridement and possible right orchiectomy. Operative Findings: More than 50 cc of pus was drained Necrotizing infection involving the posterior aspect of the scrotum, extending to the right inguinal ring. The testicles were not involved. It also tracked posteriorly in close proximity to the rectum Description of Procedure: The patient was brought to the operating room, general anesthesia was induced. He was prepped and draped in sterile fashion a placement dorsal lithotomy position an elliptical incision was initially made along the right hemiscrotum. Extensive amount of pus was drained approximately more than 50 mL of pus was drained. The pus was sent for culture. At this time the incision was extended up superiorly. There was extensive amount of necrotic tissue was was debrided. The abscess pocket appeared to extend superiorly to the right inguinal canal. All loculation will stay taken down, and all necrotic tissue was debrided. An additional pocket was also appreciated posteriorly which was broken down and all the all necrotic tissue was debrided. Further debridement of the perineum was performed to excise all the necrotic tissue until healthy bleeding was encountered. Electrocautery was used on few spots to control the bleeding. At this point rectal exam was performed and the abscess cavity was in close proximity to the rectum but did not involve the rectum. a 17-Fr rigid cystoscopy was inserted per urethra ureteroscopy was performed which showed no involvement of the urethra. At this time the debridement and the abscess cavity was thoroughly washed using the Simpulse approximately 3 L of fluid was used to performed irrigation. The debridement pocket was packed using 2 Kerlix. A new 16-Polish Hernandez was placed with return of clear urine. THE PATIENT WAS AWAKENED FROM ANESTHESIA AND TAKEN TO RECOVERY IN STABLE CONDITION. sponge and instrument counts were correct
[2019-12-05] MEDS ORDERED: HYDROmorphone 0.5 MG/0.5 ML SYRINGE IVP ONE (18:40)
[2019-12-05] MEDS ORDERED: fentaNYL (PF) 50 MCG/ML 2 ML AMP IVP ONE ×2 (19:00→19:05)
[2019-12-05] MEDS: LACTATED RINGERS 1,000 ML IV SCH (19:39)
[2019-12-05] MEDS: ZOLPIDEM 10 MG TAB PO SCH (19:52)
[2019-12-05] MEDS: VANCOMYCIN 2,000 MG in SODIUM CHLORIDE 0.9% 500 ML 500 ML IVPB SCH (20:45)
[2019-12-05] MEDS: metroNIDAZOLE-NS PMX 500 MG in SALINE 1 100ML.BAG IVPB SCH (23:52)
[2019-12-06] MEDS: VANCOMYCIN 2,000 MG in SODIUM CHLORIDE 0.9% 500 ML 500 ML IVPB SCH ×3 (04:13→20:14)
[2019-12-06] MEDS: ESCITALOPRAM 10 MG TAB PO SCH (07:22)
[2019-12-06] MEDS: METOPROLOL TARTRATE 12.5 MG TAB PO SCH (07:22)
[2019-12-06] MEDS: ALLOPURINOL 300 MG TAB PO SCH (07:22)
[2019-12-06] MEDS: PREGABALIN 100 MG CAP PO SCH ×2 (07:22→19:48)
[2019-12-06] MEDS: SERTRALINE 50 MG TAB PO SCH (07:23)
[2019-12-06] MEDS: metroNIDAZOLE-NS PMX 500 MG in SALINE 1 100ML.BAG IVPB SCH ×3 (07:23→23:59)
[2019-12-06] MEDS: oxyCODONE-APAP 7.5-325MG 1 EACH TAB PO PRN ×2 (07:23→23:58)
[2019-12-06] MEDS: CYCLOBENZAPRINE 10 MG TAB PO SCH ×2 (07:23→19:49)
[2019-12-06] MEDS: TAMSULOSIN 0.4 MG CAP.ER.24H PO SCH (07:23)
[2019-12-06] MEDS: LACOSAMIDE 50 MG TABLET PO SCH ×2 (07:23→19:49)
[2019-12-06] MEDS: PANTOPRAZOLE 40 MG TABLET PO SCH ×2 (07:23→19:49)
[2019-12-06] MEDS: CEFEPIME 1 GM in SODIUM CHLORIDE 0.9% 50 ML IVPB SCH ×2 (08:24→19:46)
[2019-12-06 08:43] LABS: African American GFR (CKD) >90 (>60 ml/min/1.73 sqM); Anion Gap 5 mmol/L; Blood Urea Nitrogen 10 mg/dL (9-20); Carbon Dioxide 27 mmol/L (22-30); Chloride 106 mmol/L (98-107); Glucose 96 mg/dL (74-99); Non-African American GFR(CKD) >90 (>60 ml/min/1.73 sqM); Sodium 138 mmol/L (137-145)
[2019-12-06 08:55] LABS: Basophils % (A) 0 %; Eosinophils # (A) 0.4 k/uL (0-0.7); Eosinophils % (A) 2 %; HCT 32.4 % (39.0-53.0); HGB 9.8 gm/dL (13.0-17.5); Hypochromasia Marked; Lymphocytes # (A) 1.1 k/uL (1.0-4.8); Lymphocytes % (A) 8 %; MCH 27.2 pg (25.0-35.0); MCHC 30.1 g/dL (31.0-37.0); MCV 90.4 fL (80.0-100.0); Mean Platelet Volume 11.2; Monocytes # (A) 0.7 k/uL (0-1.0); Monocytes % (A) 5 %; Neutrophils # (A) 12.8 k/uL (1.3-7.7); Neutrophils % (A) 84 %; Platelet Count 148 k/uL (150-450); RBC 3.59 m/uL (4.30-5.90); WBC 15.2 k/uL (3.8-10.6)
[2019-12-06 10:02] LABS: Toxic Granulation Present
[2019-12-06] MEDS: MORPHINE MISCELLANE SCH (11:03)
[2019-12-06] MEDS: LACTATED RINGERS 1,000 ML IV SCH (11:03)
--- NOTE | 2019-12-06 12:28 | P.PN ---
Subjective on-call hospitalist covering for Dr. Pedraza From records This is a very pleasant 54-year-old patient of Dr. Alexandrea Ang. stable medical conditions include hypertension, , gout, chronic bilateral hip pain, peripheral neuropathy. gastric [place] [address] Zarate. 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 Dumont. At baseline patient is to walk slowly because of peripheral neuropathy. In August 2018 patient had EGD done that showed severe erosive esophagitis with esophageal ulcer. readmitted July 05 underwent balloon dilatation of 10-7 mm done. admitted July 22 and underwent EGD by Dr. Carbajal. Found-severe esophagitis and distal esophageal obstruction. A 10 mm dilatation was carried out. Retained food was extracted. Found to have possible aspiration pneumonia bilateral, treat with IV Zosyn-discharge. Dr. Carbajal on Augmentin on July 26. Admitted on July 29 with orthostatic hypotension. This time patient presents with 2 days of cough fever and yellow sputum. Ch ills. Headache body aches tired rundown. Decreased appetite. Chest x-ray showing pneumonia. Admitted with pneumonia and sepsis. Started and IV ceftriaxone.on December 02 antibiotic changed to cefepime because of fever. Patient then developed painful swelling of the scrotum. subjective 12/06/2019 this is a pleasant 54 years old -Haitian male with diabetes who presents with pneumonia found to have Shobha gangrene status post surgical evaluation and debridement of the right hemiscrotum more than 10 same TURP with cystoscopy. Also patient has anasarca. His blood pressure was on the low normal throughout his stay, he is neither on IV fluids or steroids or on Lasix. he had a fever yesterday of 100.5.currently blood pressure 93/40. WBC is 15.2 K day.platelets are up to 140 8K. BMP is unremarkable. Protocol stone and elevated 4.1, ejection fraction of from 07/29/19 was 50-55% Currently is on cefepime, IV Flagyl and IV vancomycin Review of systems CONSTITUTIONAL: No fever, no malaise, no fatigue. HEENT: No recent visual problems or hearing problems. Denied any sore throat. CARDIOVASCULAR: No orthopnea, PND, no palpitations, no syncope. GASTROINTESTINAL: No diarrhea, no nausea, no vomiting, no abdominal pain. Normoactive bowel sounds. NEUROLOGICAL: No headaches, no weakness, no numbness. HEMATOLOGICAL: Denies any bleeding or petechiae. MUSCULOSKELETAL/RHEUMATOLOGICAL: Denies any joint pain, swelling, or any muscle pain. ENDOCRINE: Denies any polyuria or polydipsia. Active Medications Generic Name Dose Route Start Last Admin Trade Name Freq PRN Reason Stop Dose Admin Acetaminophen 500 mg 12/03/19 01:30 12/04/19 18:58 Tylenol Tab PO 500 mg Q4HR PRN Administration Fever and/ or MILD Pain Allopurinol 300 mg 12/01/19 12:45 12/06/19 07:22 Zyloprim PO 300 mg DAILY MATT Administration Cyclobenzaprine HCl 10 mg 12/01/19 12:45 12/06/19 07:23 Flexeril PO 10 mg BID MATT Administration Escitalopram Oxalate 10 mg 12/01/19 12:45 12/06/19 07:22 Lexapro PO 10 mg QAM MATT Administration Famotidine 20 mg 12/06/19 21:00 Pepcid IV Q12HR MATT Heparin Sodium (Porcine) 5,000 unit 12/06/19 12:30 Heparin SQ Q12HR MATT Cefepime HCl 1 gm/ Sodium 50 mls @ 100 mls/hr 12/03/19 11:45 12/06/19 08:24 Chloride IVPB 100 mls/hr Q12HR MATT Administration Lactated Ringer's 1,000 mls @ 10 mls/hr 12/04/19 12:30 12/06/19 11:03 Lactated Ringers IV 10 mls/hr .Q24H MATT Administration Vancomycin HCl 2,000 mg/ 500 mls @ 167 mls/hr 12/05/19 20:00 12/06/19 11:02 Sodium Chloride IVPB 167 mls/hr Q8H MATT Administration Metronidazole 500 mg/ IV 100 mls @ 100 mls/hr 12/06/19 00:00 12/06/19 07:23 Solution IVPB 100 mls/hr Q8HR MATT Administration Lacosamide 50 mg 12/01/19 12:45 12/06/19 07:23 Vimpat PO 50 mg BID MATT Administration Miscellaneous Information 1 each 12/01/19 13:45 Pneumonia Protocol Utilized PO ONCE PRN Per Protocol Miscellaneous Information 0 each 12/07/19 11:00 Vancomycin Trough Due MISCELLANE 12/07/19 11:01 DIRECTED ONE Non-Formulary Medication 1 mg 12/01/19 12:45 12/06/19 11:03 Morphine Pain Pump MISCELLANE Not Given CONTINUOUS MATT Oxycodone/Acetaminophen 1 each 12/06/19 11:21 Percocet 7.5-325 PO BID PRN SEVERE Pain Pantoprazole Sodium 40 mg 12/01/19 12:45 12/06/19 07:23 Protonix PO 40 mg BID MATT Administration Pregabalin 300 mg 12/01/19 12:45 12/06/19 07:22 Lyrica PO 300 mg BID MATT Administration Sertraline HCl 50 mg 12/01/19 12:45 12/06/19 07:23 Zoloft PO 50 mg DAILY MATT Administration Tamsulosin HCl 0.4 mg 12/06/19 09:00 12/06/19 07:23 Flomax PO 0.4 mg DAILY MATT Administration Zolpidem Tartrate 10 mg 12/01/19 21:00 12/05/19 19:52 Ambien PO Not Given HS MATT Objective - Vital Signs Vital signs: Vital Signs Temp 98.4 F 12/06/19 07:00 Pulse 69 12/06/19 07:00 Resp 17 12/06/19 07:00 BP 93/40 12/06/19 07:00 Pulse Ox 97 12/06/19 07:00 Intake & Output 12/05/19 12/06/19 12/06/19 18:59 06:59 18:59 Intake Total 600 800 Output Total 2225 1600 Balance -1625 -800 Intake: IV 350 Oral 250 800 Output: Urine 2200 1600 Estimated Blood Loss 25 Other: Voiding Method Urinal Indwelling Catheter Indwelling Catheter Incontinent # Voids 0 # Bowel Movements 0 - Exam -GENERAL: The patient is alert and oriented x3, not in any acute distress.obese HEENT: Pupils are round and equally reacting to light. EOMI. No scleral icterus. No conjunctival pallor. Normocephalic, atraumatic. No pharyngeal erythema. No thyromegaly. CARDIOVASCULAR: S1 and S2 present. No murmurs, rubs, or gallops. PULMONARY: Chest is clear to auscultation, no wheezing or crackles. -ABDOMEN: Soft, nontender, nondistended, normoactive bowel sounds. No palpable organomegaly. lower scrotal wound with dressing is in place MUSCULOSKELETAL: No joint swelling or deformity. -EXTREMITIES: No cyanosis, clubbing. bilateral leg edema and anasarca NEUROLOGICAL: Gross neurological examination did not reveal any focal deficits. SKIN: No rashes. no petechiae. - Labs CBC & Chem 7: 12/06/19 07:33 12/06/19 07:33 Labs: Abnormal Lab Results - Last 24 Hours (Table) 12/06/19 12/06/19 Range/Units 07:33 07:33 WBC 15.2 H (3.8-10.6) k/uL RBC 3.59 L (4.30-5.90) m/uL Hgb 9.8 L (13.0-17.5) gm/dL Hct 32.4 L (39.0-53.0) % MCHC 30.1 L (31.0-37.0) g/dL RDW 16.0 H (11.5-15.5) % Plt Count 148 L (150-450) k/uL Neutrophils # 12.8 H (1.3-7.7) k/uL Calcium 8.0 L (8.4-10.2) mg/dL Microbiology - Last 24 Hours (Table) 12/05/19 18:00 Gram Stain - Preliminary Groin Wound Culture - Preliminary 12/05/19 18:00 Anaerobic Culture - Preliminary Groin 12/01/19 11:36 Blood Culture - Preliminary Blood No Growth after 96 hours Assessment and Plan Assessment: -Shobha's gangrene , status post surgical debridement of the right hemiscrotum -Left lower pneumonia suspected gram-negative organism, POA clinically improved -History of recurrent esophageal stricture with recurrent dilatation -Severe esophagitis and distal esophageal ulcer., -History of paraesophageal repair and history of sleeve gastrectomy -Essential hypertension, currently blood pressure is on the low-normal signed -Primary osteoarthritis -Gout -Idiopathic peripheral neuropathy -Chronic back pain with the pain pump -Acute kidney injury likely ATN from sepsis-improving Plan: this is a pleasant 53 years old male who presents with from near gangrene and pneumonia status post surgical debridement. Continue with broad-spectrum antibiotics with cefepime, Flagyl and IV vancomycin. Infectious disease and urology services are on the team. Follow-up culture results and WBCs. Follow- up blood pressure. Hold metoprolol. Labs and medication were reviewed.. Continue same treatment. Continue with symptomatic treatment. Resume home medication. Monitor lytes and vitals. DVT and GI prophylaxis. Further recommendations of the clinical course of the patient DVT prophylaxis: Subcutaneous heparin GI Prophylaxis: Pepcid PT/OT: Pending Prognosis is guarded
[2019-12-06] MEDS: HEPARIN SODIUM,PORCINE 5,000 UNIT/ML 1 ML VIAL SQ SCH ×2 (13:08→19:49)
[2019-12-06] MEDS: FAMOTIDINE 20 MG/2 ML VIAL IV SCH (19:49)
[2019-12-06] MEDS: ZOLPIDEM 10 MG TAB PO SCH (19:49)
--- NOTE | 2019-12-06 22:12 | P.PN ---
Subjective Progress Note Date: 12/06/19 POD #1 S/P Debridement of scrotum No acute overnight event, pain controlled, afebrile overnight Objective - Vital Signs Vital signs: Vital Signs Temp 98.6 F 12/06/19 19:03 Pulse 81 12/06/19 19:03 Resp 16 12/06/19 19:03 BP 102/61 12/06/19 19:03 Pulse Ox 93 L 12/06/19 19:03 Intake & Output 12/06/19 12/06/19 12/07/19 06:59 18:59 06:59 Intake Total 800 Output Total 1600 Balance -800 Intake: Oral 800 Output: Urine 1600 Other: Voiding Method Indwelling Catheter Indwelling Catheter # Bowel Movements 0 - Gastrointestinal General gastrointestinal: Present: soft. Absent: distended, rigid - Genitourinary Genitourinary Comment(s): Wound clean, no purulent drainage appreciated or any additional abscess pockets. Cellulitis improving - Labs CBC & Chem 7: 12/06/19 07:33 12/06/19 07:33 Labs: Abnormal Lab Results - Last 24 Hours (Table) 12/06/19 12/06/19 Range/Units 07:33 07:33 WBC 15.2 H (3.8-10.6) k/uL RBC 3.59 L (4.30-5.90) m/uL Hgb 9.8 L (13.0-17.5) gm/dL Hct 32.4 L (39.0-53.0) % MCHC 30.1 L (31.0-37.0) g/dL RDW 16.0 H (11.5-15.5) % Plt Count 148 L (150-450) k/uL Neutrophils # 12.8 H (1.3-7.7) k/uL Calcium 8.0 L (8.4-10.2) mg/dL Microbiology - Last 24 Hours (Table) 12/05/19 18:00 Gram Stain - Preliminary Groin Wound Culture - Preliminary 12/01/19 11:36 Blood Culture - Preliminary Blood No Growth after 120 hours 12/05/19 18:00 Anaerobic Culture - Preliminary Groin Assessment and Plan Assessment: 54 yo male admitted to the hospital with pneumonia. Urology is consulted for scrotal edema and cellulitis. Scrotal U/S demonstrated bilateral orchitis. CT showed subcutaneous air concerning for Shobha's gangrene , POD #1 S/P surgical debridment of scrotum Plan: -Continue antibiotics, will f/u on ID recs and wound cultures -Daily dressing change -Keep Hernandez -repeat CBC tomorrow
[2019-12-06] MEDS ORDERED: VANCOMYCIN IV PER PHARMACY 1 EACH MISC MISCELLANE PRN (23:22)
[2019-12-07] MEDS: VANCOMYCIN 2,000 MG in SODIUM CHLORIDE 0.9% 500 ML 500 ML IVPB SCH ×3 (05:40→17:02)
--- NOTE | 2019-12-07 06:46 | P.CONS ---
History of Present Illness - Reason for Consult Consult date: 12/06/19 scrotal infection Requesting physician: Chavez Pedraza - Chief Complaint fever and scrotal pain x few days - History of Present Illness Patient is a 54-year-old -Gabonese male who presented to the ER at [facility] about 5 days ago with chief complaints of fever and generalized weakness patient symptom has been going on for few days before presented to hospital patient was complaining of some mild cough but no sputum production no difficulty breathing and decrease intake for 2 days before presentation to the hospital patient on arrival to the ER did have a fever of 102.7 degree for night patient did have white count of 15.8 on admission urine was mildly positive porras PCR was negative patient did have a chest x-ray on admission which showed some left basilar infiltrate repeat chest x-ray was no acute pulmonary process patient has been diagnosed with pneumonia and the patient was started on cefepime on 12/03/2019 in the meantime the patient still have a problem with a scrotal swelling for the patient did have ultrasound of the scrotum done with a finding consistent early severe epididymal orchitis urology was consulted subsequently patient did have a CT of the pelvis completed yesterday with concern for subcutaneous air within the scrotum bilaterally and extending up subcutaneous emphysema into the right inguinal and femoral regions no drainable abscess patient has been being taken to the OR last evening this patient has been diagnosed with Shobha's gangrene and the pain status post surgical debridement of the right hemiscrotum patient did have local cultures obtained he was continued cefepime Flagyl was added infectious disease was consulted last night for further management of antibiotic therapy as of this morning had the patient is afebrile also pressure has been 100.5 degree for her last evening patient denies having any chest pain or shortness with cough no nausea no abdominal pain. The scrotal area is more of a dull aching at times sharp intensity could be 5-6 out of 10 and no radiation did have a Hernandez catheter and denies having any diarrhea. 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 BILATERAL KNEE arthroscopy, BILATERAL HIP replacement, LEFT SHOULDER replacement, LEFT ACHILES TENDON SX., RIGHT BIG TOE, echocardiolgram, spinal fusion, EGD with dilation., STATES HX OF PNEUMONIA WITH LUNG SURGERY., REPAIR OF HIATAL HERNIA & LYSIS OF ADHESIONS Past Anesthesia/Blood Transfusion Reactions: No Reported Reaction Past Psychological History: Anxiety, Depression Smoking Status: Former smoker Past Alcohol Use History: None Reported Additional Past Alcohol Use History / Comment(s): quit smoking 2017, smoked since age 21, 1 PPD Past Drug Use History: None Reported - Past Family History Father Family Medical History: Cancer Additional Family Medical History / Comment(s): lung Mother Family Medical History: Coronary Artery Disease (CAD), Hypertension Medications and Allergies Home Medications Medication Instructions Recorded Confirmed Type Allopurinol [Zyloprim] 300 mg PO DAILY 06/04/16 12/01/19 History Cyclobenzaprine [Flexeril] 10 mg PO BID 06/04/16 12/01/19 History Escitalopram [Lexapro] 10 mg PO QAM 06/04/16 12/01/19 History Lacosamide [Vimpat] 50 mg PO BID 03/25/18 12/01/19 History Zolpidem Tartrate [Ambien] 10 mg PO HS 03/25/18 12/01/19 History Ergocalciferol (Vitamin D2) 50,000 unit PO MO 06/19/18 12/01/19 History [Vitamin D2] Pregabalin [Lyrica] 300 mg PO BID 07/17/18 12/01/19 History oxyCODONE-APAP 7.5-325MG [Percocet 1 tab PO DAILY PRN 07/01/19 12/01/19 History 7.5-325 mg] Omeprazole 40 mg PO BID #60 cap 07/06/19 12/01/19 Rx Sucralfate [Carafate] 1 gm PO BID #60 tablet 07/06/19 12/01/19 Rx Morphine Pain Pump 1 mg INTRATHECA CONTINUOUS 07/20/19 12/01/19 History Sertraline [Zoloft] 50 mg PO DAILY 07/20/19 12/01/19 History Metoprolol Tartrate [Lopressor] 12.5 mg PO BID #60 tab 07/30/19 12/01/19 Rx Furosemide [Lasix] 20 mg PO DAILY 12/01/19 12/01/19 History Ibuprofen 800 mg PO TID PRN 12/01/19 12/01/19 History Lisinopril [Zestril] 2.5 mg PO DAILY 12/01/19 12/01/19 History Allergies Allergy/AdvReac Type Severity Reaction Status Date / Time No Known Allergies Allergy Verified 12/01/19 11:02 Physical Exam Vitals: Vital Signs Temp Pulse Resp BP Pulse Ox 12/06/19 07:00 98.4 F 69 17 93/40 97 12/06/19 01:59 98.6 F 85 16 93/53 96 12/05/19 21:17 83 18 94/58 96 12/05/19 21:00 81 16 102/59 94 L 12/05/19 20:47 81 16 96/58 94 L 12/05/19 20:29 85 18 100/64 95 12/05/19 20:14 80 18 104/66 96 12/05/19 19:59 83 18 97/60 94 L 12/05/19 19:44 82 16 104/66 94 L 12/05/19 19:33 98.9 F 82 16 96/61 92 L 12/05/19 19:15 83 16 92/52 96 12/05/19 18:50 83 18 98/54 97 12/05/19 18:35 83 16 104/55 96 12/05/19 18:20 84 16 111/55 98 12/05/19 18:06 89 16 108/51 98 12/05/19 16:00 78 18 12/05/19 14:46 99 F 78 18 99/61 100 Intake and Output 12/05/19 12/06/19 12/06/19 22:59 06:59 14:59 Intake Total 1150 Output Total 3025 800 Balance -187 -800 Intake: IV 350 Oral 800 Output: Urine 3000 800 Estimated Blood Loss 25 Other: Voiding Method Indwelling Catheter Indwelling Catheter # Voids 0 # Bowel Movements 0 GENERAL DESCRIPTION: Middle-aged male lying in bed, no distress. No tachypnea or accessory muscle of respiration use. HEENT: Shows Pallor , no scleral icterus. Oral mucous membrane is dry. NECK: Trachea central, no thyromegaly. LUNGS: Unlabored breathing. Clear to auscultation anteriorly. No wheeze or crackle. HEART: S1, S2, regular rate and rhythm. ABDOMEN: Soft, no tenderness , guarding or rigidity EXTREMITIES: No edema of feet. : Significant swelling of the scrotum area, with a wound at the significantly deep wound base with no significant slough tissue or foul-smelling drainage sKIN: No rash, no masses palpable. NEUROLOGICAL: The patient is awake, alert, oriented x3, mood and affect normal. Results CBC & Chem 7: 12/06/19 07:33 12/06/19 07:33 Labs: Abnormal Lab Results - Last 24 Hours (Table) 12/06/19 12/06/19 Range/Units 07:33 07:33 WBC 15.2 H (3.8-10.6) k/uL RBC 3.59 L (4.30-5.90) m/uL Hgb 9.8 L (13.0-17.5) gm/dL Hct 32.4 L (39.0-53.0) % MCHC 30.1 L (31.0-37.0) g/dL RDW 16.0 H (11.5-15.5) % Plt Count 148 L (150-450) k/uL Neutrophils # 12.8 H (1.3-7.7) k/uL Calcium 8.0 L (8.4-10.2) mg/dL Microbiology - Last 24 Hours (Table) 12/05/19 18:00 Gram Stain - Preliminary Groin Wound Culture - Preliminary 12/05/19 18:00 Anaerobic Culture - Preliminary Groin 12/01/19 11:36 Blood Culture - Preliminary Blood No Growth after 96 hours Assessment and Plan Assessment: -patient admitted hospital with sepsis concern likely Shobha's gangrene in this patient who is status post extensive surgical debridement of the right hemiscrotum last evening status post cultures are currently pending we will need to cover for both gram-positive skin kenton as well as gram-negative pathogen to the likely source of this infection (1) Fourniers gangrene Current Visit: Yes Status: Acute Code(s): N49.3 - SHOBHA GANGRENE SNOMED Code(s): 579095861 (2) Sepsis Current Visit: Yes Status: Acute Code(s): A41.9 - SEPSIS, UNSPECIFIED ORGANISM SNOMED Code(s): 61806078 Plan: 1-we will increase the dose of cefepime to 2 g every 12 hours and continue with the [facility] 2-vancomycin pharmacy to dose her with a target trough of 15 while watching her kidney function and Vanco trough closely. 3-local care with wet-to-dry dressing changes per urology We will follow on clinical condition and cultures to further adjust medication if needed Thank you for this consultation we will follow the patient along with you Time with Patient: Greater than 30
[2019-12-07] MEDS: TAMSULOSIN 0.4 MG CAP.ER.24H PO SCH (07:08)
[2019-12-07] MEDS: CYCLOBENZAPRINE 10 MG TAB PO SCH ×2 (07:08→20:15)
[2019-12-07] MEDS: PANTOPRAZOLE 40 MG TABLET PO SCH ×2 (07:08→20:15)
[2019-12-07] MEDS: SERTRALINE 50 MG TAB PO SCH (07:08)
[2019-12-07] MEDS: LACOSAMIDE 50 MG TABLET PO SCH ×2 (07:08→20:15)
[2019-12-07] MEDS: PREGABALIN 100 MG CAP PO SCH ×2 (07:08→20:23)
[2019-12-07] MEDS: ALLOPURINOL 300 MG TAB PO SCH (07:08)
[2019-12-07] MEDS: ESCITALOPRAM 10 MG TAB PO SCH (07:08)
[2019-12-07] MEDS: metroNIDAZOLE-NS PMX 500 MG in SALINE 1 100ML.BAG IVPB SCH ×2 (07:09→15:03)
[2019-12-07] MEDS: CEFEPIME 2 GM in SODIUM CHLORIDE 0.9% 100 ML IVPB SCH ×2 (07:09→22:30)
[2019-12-07] MEDS: HEPARIN SODIUM,PORCINE 5,000 UNIT/ML 1 ML VIAL SQ SCH ×2 (07:09→20:15)
[2019-12-07] MEDS: FAMOTIDINE 20 MG/2 ML VIAL IV SCH ×2 (07:09→20:20)
[2019-12-07] MEDS: oxyCODONE-APAP 7.5-325MG 1 EACH TAB PO PRN ×2 (07:13→16:24)
[2019-12-07] MEDS ORDERED: CEFEPIME 2 GM in SODIUM CHLORIDE 0.9% 50 ML IVPB SCH (09:00)
[2019-12-07] MEDS ORDERED: POLYETHYLENE GLYCOL 3350 17 GM POWD.PACK PO PRN (10:19)
--- NOTE | 2019-12-07 10:20 | P.PN ---
Subjective on-call hospitalist covering for Dr. Pedraza From records This is a very pleasant 54-year-old patient of Dr. Alexandrea Ang. stable medical conditions include hypertension, , gout, chronic bilateral hip pain, peripheral neuropathy. gastric [place] [address] Zarate. 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 Dumont. At baseline patient is to walk slowly because of peripheral neuropathy. In August 2018 patient had EGD done that showed severe erosive esophagitis with esophageal ulcer. readmitted July 05 underwent balloon dilatation of 10-7 mm done. admitted July 22 and underwent EGD by Dr. Carbajal. Found-severe esophagitis and distal esophageal obstruction. A 10 mm dilatation was carried out. Retained food was extracted. Found to have possible aspiration pneumonia bilateral, treat with IV Zosyn-discharge. Dr. Carbajal on Augmentin on July 26. Admitted on July 29 with orthostatic hypotension. This time patient presents with 2 days of cough fever and yellow sputum. Ch ills. Headache body aches tired rundown. Decreased appetite. Chest x-ray showing pneumonia. Admitted with pneumonia and sepsis. Started and IV ceftriaxone.on December 02 antibiotic changed to cefepime because of fever. Patient then developed painful swelling of the scrotum. subjective 12/06/2019 this is a pleasant 54 years old -Italian male with diabetes who presents with pneumonia found to have Shohba gangrene status post surgical evaluation and debridement of the right hemiscrotum more than 10 same TURP with cystoscopy. Also patient has anasarca. His blood pressure was on the low normal throughout his stay, he is neither on IV fluids or steroids or on Lasix. he had a fever yesterday of 100.5.currently blood pressure 93/40. WBC is 15.2 K day.platelets are up to 140 8K. BMP is unremarkable. Protocol stone and elevated 4.1, ejection fraction of from 07/29/19 was 50-55% Currently is on cefepime, IV Flagyl and IV vancomycin 12/07/2019 The patient is fully awake and oriented. No new complaints. However he still have significant pain at the scrotal surgical site especially with the dressing, a dose of Percocet is added and discussed with staff. Patient is already on m orphine pump as an outpatient and he follows up with Dr. Mckinney who manages his pump, he did that for his his chronic back problem with history of back surgery. Physical have some leg edema and and the anasarca. Hernandez catheter is in place. Patient is complaining of from constipation and laxative is added. No nausea vomiting. No abdominal pain. No chest pain or dyspnea Objective - Vital Signs Vital signs: Vital Signs Temp 98.6 F 12/07/19 07:00 Pulse 69 12/07/19 07:00 Resp 18 12/07/19 07:00 BP 113/66 12/07/19 07:00 Pulse Ox 95 12/07/19 07:00 Intake & Output 12/06/19 12/07/19 12/07/19 18:59 06:59 18:59 Output Total 1300 Balance -1300 Output: Urine 1300 Other: Voiding Method Indwelling Catheter Indwelling Catheter Indwelling Catheter # Bowel Movements 0 - Exam -GENERAL: The patient is alert and oriented x3, not in any acute distress.obese HEENT: Pupils are round and equally reacting to light. EOMI. No scleral icterus. No conjunctival pallor. Normocephalic, atraumatic. No pharyngeal erythema. No thyromegaly. CARDIOVASCULAR: S1 and S2 present. No murmurs, rubs, or gallops. PULMONARY: Chest is clear to auscultation, no wheezing or crackles. -ABDOMEN: Soft, nontender, nondistended, normoactive bowel sounds. No palpable organomegaly. lower scrotal wound with dressing is in place MUSCULOSKELETAL: No joint swelling or deformity. -EXTREMITIES: No cyanosis, clubbing. bilateral leg edema and anasarca NEUROLOGICAL: Gross neurological examination did not reveal any focal deficits. SKIN: No rashes. no petechiae. - Labs CBC & Chem 7: 12/06/19 07:33 12/06/19 07:33 Labs: Microbiology - Last 24 Hours (Table) 12/05/19 18:00 Gram Stain - Preliminary Groin Wound Culture - Preliminary 12/01/19 11:36 Blood Culture - Preliminary Blood No Growth after 120 hours Assessment and Plan Assessment: -Shobha's gangrene , status post surgical debridement of the right hemiscrotum -Left lower pneumonia suspected gram-negative organism, POA clinically improved -History of recurrent esophageal stricture with recurrent dilatation -Severe esophagitis and distal esophageal ulcer., -History of paraesophageal repair and history of sleeve gastrectomy -Essential hypertension, currently blood pressure is on the low-normal signed -Primary osteoarthritis -Gout -Idiopathic peripheral neuropathy -Chronic back pain with the pain pump -Acute kidney injury likely ATN from sepsis-improving Plan: this is a pleasant 53 years old male who presents with from near gangrene and pneumonia status post surgical debridement. Continue with broad-spectrum antibiotics with cefepime, Flagyl and IV vancomycin. Infectious disease and urology services are on the team. Follow-up culture results and WBCs. Follow- up blood pressure. Hold metoprolol. Labs and medication were reviewed.. Continue same treatment. Continue with symptomatic treatment. Resume home medication. Monitor lytes and vitals. DVT and GI prophylaxis. Further recommendations of the clinical course of the patient DVT prophylaxis: Subcutaneous heparin GI Prophylaxis: Pepcid PT/OT: Pending Prognosis is guarded
[2019-12-07] MEDS: LACTATED RINGERS 1,000 ML IV SCH (10:52)
[2019-12-07] MEDS: MORPHINE MISCELLANE SCH (10:53)
[2019-12-07] MEDS ORDERED: VANCOMYCIN TROUGH DUE 1 EACH MISC MISCELLANE ONE (11:00)
[2019-12-07 11:46] LABS: African American GFR (CKD) >90 (>60 ml/min/1.73 sqM); Anion Gap 4 mmol/L; Blood Urea Nitrogen 11 mg/dL (9-20); Calcium 7.8 mg/dL (8.4-10.2); Carbon Dioxide 27 mmol/L (22-30); Chloride 107 mmol/L (98-107); Glucose 90 mg/dL (74-99); Non-African American GFR(CKD) >90 (>60 ml/min/1.73 sqM); Sodium 138 mmol/L (137-145)
[2019-12-07 11:56] LABS: HCT 30.4 % (39.0-53.0); HGB 9.2 gm/dL (13.0-17.5); Hypochromasia Marked; MCH 27.5 pg (25.0-35.0); MCHC 30.4 g/dL (31.0-37.0); MCV 90.5 fL (80.0-100.0); Mean Platelet Volume 10.5; Platelet Count 175 k/uL (150-450); RBC 3.36 m/uL (4.30-5.90); RDW 15.7 % (11.5-15.5); WBC 11.9 k/uL (3.8-10.6)
[2019-12-07] MEDS ORDERED: oxyCODONE-APAP 7.5-325MG 1 EACH TAB PO PRN (16:26)
--- NOTE | 2019-12-07 16:26 | P.PN ---
Subjective Progress Note Date: 12/07/19 Principal diagnosis: POD #2, s/p Scrotal Debridement The patient has no specific complaints. His pain is controlled. He remains afebrile. Objective - Vital Signs Vital signs: Vital Signs Temp 99.5 F 12/07/19 15:00 Pulse 90 12/07/19 15:00 Resp 20 12/07/19 15:00 BP 112/75 12/07/19 15:00 Pulse Ox 90 L 12/07/19 15:00 Intake & Output 12/06/19 12/07/19 12/07/19 18:59 06:59 18:59 Output Total 1300 Balance -1300 Output: Urine 1300 Other: Voiding Method Indwelling Catheter Indwelling Catheter Indwelling Catheter # Bowel Movements 0 0 - Constitutional General appearance: Present: average body habitus, cooperative, no acute distress - Genitourinary Genitourinary Comment(s): Mild scrotal edema. No necrotic tissue. Mild seropurulent drainage. - Psychiatric Psychiatric: Present: A&O x's 3, appropriate affect - Labs CBC & Chem 7: 12/07/19 10:36 12/07/19 10:36 Labs: Abnormal Lab Results - Last 24 Hours (Table) 12/07/19 12/07/19 12/07/19 Range/Units 10:36 10:36 10:36 WBC 11.9 H (3.8-10.6) k/uL RBC 3.36 L (4.30-5.90) m/uL Hgb 9.2 L (13.0-17.5) gm/dL Hct 30.4 L (39.0-53.0) % MCHC 30.4 L (31.0-37.0) g/dL RDW 15.7 H (11.5-15.5) % Calcium 7.8 L (8.4-10.2) mg/dL Vancomycin Trough 35.7 H* ug/mL Microbiology - Last 24 Hours (Table) 12/01/19 11:36 Blood Culture - Final Blood No Growth after 144 hours 12/05/19 18:00 Gram Stain - Preliminary Groin Wound Culture - Preliminary Assessment and Plan (1) Fourniers gangrene Current Visit: Yes Status: Acute Code(s): N49.3 - JUAN ANTONIO GANGRENE SNOMED Code(s): 244217467 Plan: The Gram stain showed polymicrobia, but cultures are negative thus far. Continue local wound care. If drainage does not diminish will consider a repeat computed tomography scan.
--- NOTE | 2019-12-07 16:37 | PN ---
PROGRESS NOTE DATE OF SERVICE: 12/07/2019 REASON FOR FOLLOWUP: Wound has gangrene and sepsis. INTERVAL HISTORY: The patient is currently afebrile, patient is breathing comfortably. Denies having any chest pain. No shortness of breath or cough. No abdominal pain. Pain is already currently controlled. PHYSICAL EXAMINATION: Blood pressure 113/66, pulse of 69, temperature 98.6. He is 95% on room air. General description is a middle-aged male lying in bed in no distress. RESPIRATORY SYSTEM: Unlabored breathing, clear to auscultation anteriorly. HEART: S1, S2. Regular rate and rhythm. ABDOMEN: Soft, no tenderness. LABS: Hemoglobin 9.8, white count 11.6, BUN of 11, creatinine 0.72. Cultures currently pending. DIAGNOSTIC IMPRESSION AND PLAN: Patient with sepsis in this patient did have wound is gangrene, status post surgical debridement. Patient is covered with cefepime and vancomycin to continue adjusting metformin with the culture report. Continue supportive care. MMODL / IJN: [id number] /
[2019-12-07] MEDS: ZOLPIDEM 10 MG TAB PO SCH (20:15)
[2019-12-08] MEDS: metroNIDAZOLE-NS PMX 500 MG in SALINE 1 100ML.BAG IVPB SCH ×3 (00:37→16:54)
[2019-12-08] MEDS: oxyCODONE-APAP 7.5-325MG 1 EACH TAB PO PRN ×2 (05:35→16:54)
[2019-12-08] MEDS: VANCOMYCIN 2,000 MG in SODIUM CHLORIDE 0.9% 500 ML 500 ML IVPB SCH ×2 (05:39→18:21)
[2019-12-08 06:59] LABS: African American GFR (CKD) >90 (>60 ml/min/1.73 sqM); Anion Gap 5 mmol/L; Blood Urea Nitrogen 10 mg/dL (9-20); Carbon Dioxide 29 mmol/L (22-30); Chloride 103 mmol/L (98-107); Glucose 82 mg/dL (74-99); Non-African American GFR(CKD) >90 (>60 ml/min/1.73 sqM); Potassium 4.6 mmol/L (3.5-5.1); Sodium 137 mmol/L (137-145)
[2019-12-08] MEDS: PANTOPRAZOLE 40 MG TABLET PO SCH ×2 (07:32→20:33)
[2019-12-08] MEDS: TAMSULOSIN 0.4 MG CAP.ER.24H PO SCH (07:32)
[2019-12-08] MEDS: ESCITALOPRAM 10 MG TAB PO SCH (07:33)
[2019-12-08] MEDS: ALLOPURINOL 300 MG TAB PO SCH (07:33)
[2019-12-08] MEDS: SERTRALINE 50 MG TAB PO SCH (07:33)
[2019-12-08] MEDS: CYCLOBENZAPRINE 10 MG TAB PO SCH ×2 (07:33→20:33)
[2019-12-08] MEDS: CEFEPIME 2 GM in SODIUM CHLORIDE 0.9% 100 ML IVPB SCH ×3 (07:34→20:32)
[2019-12-08] MEDS: PREGABALIN 100 MG CAP PO SCH ×2 (07:36→20:33)
[2019-12-08] MEDS: LACOSAMIDE 50 MG TABLET PO SCH ×2 (07:36→20:32)
[2019-12-08] MEDS: FAMOTIDINE 20 MG/2 ML VIAL IV SCH ×2 (07:37→20:33)
[2019-12-08] MEDS: HEPARIN SODIUM,PORCINE 5,000 UNIT/ML 1 ML VIAL SQ SCH ×2 (07:37→20:33)
[2019-12-08 07:53] LABS: Anisocytosis Slight; Basophils % (A) 0 %; Eosinophils # (A) 0.4 k/uL (0-0.7); Eosinophils % (A) 3 %; HGB 9.5 gm/dL (13.0-17.5); Hypochromasia Marked; Lymphocytes # (A) 1.7 k/uL (1.0-4.8); Lymphocytes % (A) 14 %; MCH 26.9 pg (25.0-35.0); MCHC 29.6 g/dL (31.0-37.0); MCV 90.7 fL (80.0-100.0); Mean Platelet Volume 11.7; Monocytes # (A) 0.5 k/uL (0-1.0); Monocytes % (A) 4 %; Neutrophils # (A) 9.9 k/uL (1.3-7.7); Neutrophils % (A) 78 %; Platelet Count 200 k/uL (150-450); RBC 3.53 m/uL (4.30-5.90); RDW 16.1 % (11.5-15.5); WBC 12.8 k/uL (3.8-10.6)
[2019-12-08 08:30] LABS: Poikilocytosis (M) Present
[2019-12-08 08:31] LABS: Target Cells Present
--- NOTE | 2019-12-08 10:38 | P.PN ---
Subjective on-call hospitalist covering for Dr. Pedraza From records This is a very pleasant 54-year-old patient of Dr. Alexandrea Ang. stable medical conditions include hypertension, , gout, chronic bilateral hip pain, peripheral neuropathy. gastric [place] [address] Zarate. 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 Dumont. At baseline patient is to walk slowly because of peripheral neuropathy. In August 2018 patient had EGD done that showed severe erosive esophagitis with esophageal ulcer. readmitted July 05 underwent balloon dilatation of 10-7 mm done. admitted July 22 and underwent EGD by Dr. Carbajal. Found-severe esophagitis and distal esophageal obstruction. A 10 mm dilatation was carried out. Retained food was extracted. Found to have possible aspiration pneumonia bilateral, treat with IV Zosyn-discharge. Dr. Carbajal on Augmentin on July 26. Admitted on July 29 with orthostatic hypotension. This time patient presents with 2 days of cough fever and yellow sputum. Ch ills. Headache body aches tired rundown. Decreased appetite. Chest x-ray showing pneumonia. Admitted with pneumonia and sepsis. Started and IV ceftriaxone.on December 02 antibiotic changed to cefepime because of fever. Patient then developed painful swelling of the scrotum. subjective 12/06/2019 this is a pleasant 54 years old -Portuguese male with diabetes who presents with pneumonia found to have Shobha gangrene status post surgical evaluation and debridement of the right hemiscrotum more than 10 same TURP with cystoscopy. Also patient has anasarca. His blood pressure was on the low normal throughout his stay, he is neither on IV fluids or steroids or on Lasix. he had a fever yesterday of 100.5.currently blood pressure 93/40. WBC is 15.2 K day.platelets are up to 140 8K. BMP is unremarkable. Protocol stone and elevated 4.1, ejection fraction of from 07/29/19 was 50-55% Currently is on cefepime, IV Flagyl and IV vancomycin 12/07/2019 The patient is fully awake and oriented. No new complaints. However he still have significant pain at the scrotal surgical site especially with the dressing, a dose of Percocet is added and discussed with staff. Patient is already on m orphine pump as an outpatient and he follows up with Dr. Mckinney who manages his pump, he did that for his his chronic back problem with history of back surgery. Physical have some leg edema and and the anasarca. Hernandez catheter is in place. Patient is complaining of from constipation and laxative is added. No nausea vomiting. No abdominal pain. No chest pain or dyspnea 12/08/2019 Patient is awake and alert, no new complaints.patient feels his surgical wounds at the scrotum is slightly improving. urologist is following the patient and they consider repeating CAT scan if the drain does not stop from the wound. Patient still has bilateral leg swelling, his blood pressure and vital signs s table, patient was started on Lasix 40 mg IV. Patient remains on broad-spectrum antibiotics with cefepime, Flagyl and IV vancomycin patient may benefit from an ECF for inpatient rehab upon discharge Give laxative Senokot twice a day Objective - Vital Signs Vital signs: Vital Signs Temp 98.8 F 12/08/19 07:35 Pulse 76 12/08/19 07:35 Resp 18 12/08/19 07:35 BP 107/65 12/08/19 07:35 Pulse Ox 96 12/08/19 07:35 Intake & Output 12/07/19 12/08/19 12/08/19 18:59 06:59 18:59 Output Total 600 1650 Balance -600 -1650 Output: Urine 600 1650 Other: Voiding Method Indwelling Catheter Indwelling Catheter # Bowel Movements 0 - Exam -GENERAL: The patient is alert and oriented x3, not in any acute distress.obese HEENT: Pupils are round and equally reacting to light. EOMI. No scleral icterus. No conjunctival pallor. Normocephalic, atraumatic. No pharyngeal erythema. No thyromegaly. CARDIOVASCULAR: S1 and S2 present. No murmurs, rubs, or gallops. PULMONARY: Chest is clear to auscultation, no wheezing or crackles. -ABDOMEN: Soft, nontender, nondistended, normoactive bowel sounds. No palpable organomegaly. lower scrotal wound with dressing is in place MUSCULOSKELETAL: No joint swelling or deformity. -EXTREMITIES: No cyanosis, clubbing. bilateral leg edema and anasarca NEUROLOGICAL: Gross neurological examination did not reveal any focal deficits. SKIN: No rashes. no petechiae. - Labs CBC & Chem 7: 12/08/19 05:35 12/08/19 05:35 Labs: Abnormal Lab Results - Last 24 Hours (Table) 12/07/19 12/07/19 12/07/19 Range/Units 10:36 10:36 10:36 WBC 11.9 H (3.8-10.6) k/uL RBC 3.36 L (4.30-5.90) m/uL Hgb 9.2 L (13.0-17.5) gm/dL Hct 30.4 L (39.0-53.0) % MCHC 30.4 L (31.0-37.0) g/dL RDW 15.7 H (11.5-15.5) % Neutrophils # (1.3-7.7) k/uL Calcium 7.8 L (8.4-10.2) mg/dL Vancomycin Trough 35.7 H* ug/mL 12/08/19 12/08/19 Range/Units 05:35 05:35 WBC 12.8 H (3.8-10.6) k/uL RBC 3.53 L (4.30-5.90) m/uL Hgb 9.5 L (13.0-17.5) gm/dL Hct 32.0 L (39.0-53.0) % MCHC 29.6 L (31.0-37.0) g/dL RDW 16.1 H (11.5-15.5) % Neutrophils # 9.9 H (1.3-7.7) k/uL Calcium 8.0 L (8.4-10.2) mg/dL Vancomycin Trough ug/mL Microbiology - Last 24 Hours (Table) 12/01/19 11:36 Blood Culture - Final Blood No Growth after 144 hours Assessment and Plan Assessment: -Shobha's gangrene , status post surgical debridement of the right hemiscrotum -Left lower pneumonia suspected gram-negative organism, POA clinically improved -History of recurrent esophageal stricture with recurrent dilatation -Severe esophagitis and distal esophageal ulcer., -History of paraesophageal repair and history of sleeve gastrectomy -Essential hypertension, currently blood pressure is on the low-normal signed -Primary osteoarthritis -Gout -Idiopathic peripheral neuropathy -Chronic back pain with the pain pump -Acute kidney injury likely ATN from sepsis-improving Plan: this is a pleasant 53 years old male who presents with from near gangrene and pneumonia status post surgical debridement. Continue with broad-spectrum antibiotics with cefepime, Flagyl and IV vancomycin. Infectious disease and urology services are on the team. Follow-up culture results and WBCs. Follow- up blood pressure. Hold metoprolol. Labs and medication were reviewed.. Continue same treatment. Continue with symptomatic treatment. Resume home medication. Monitor lytes and vitals. DVT and GI prophylaxis. Further recommendations of the clinical course of the patient DVT prophylaxis: Subcutaneous heparin GI Prophylaxis: Pepcid PT/OT: Pending Prognosis is guarded
[2019-12-08] MEDS ORDERED: FUROSEMIDE 10 MG/ML 4 ML VIAL IV SCH (10:45)
[2019-12-08] MEDS: FUROSEMIDE 10 MG/ML 4 ML VIAL IV SCH ×2 (10:56→20:33)
[2019-12-08] MEDS: SENNOSIDES-DOCUSATE SODIUM 1 EACH TAB PO SCH ×2 (10:56→20:32)
[2019-12-08] MEDS: LACTATED RINGERS 1,000 ML IV SCH (11:00)
[2019-12-08] MEDS: MORPHINE MISCELLANE SCH (13:50)
[2019-12-08] MEDS: ZOLPIDEM 10 MG TAB PO SCH (20:33)
--- NOTE | 2019-12-08 23:26 | P.PN ---
Subjective Progress Note Date: 12/08/19 Principal diagnosis: POD #3, s/p Scrotal Debridement The patient reports abdominal discomfort as well as pain at the incision site. He remains afebrile. Objective - Vital Signs Vital signs: Vital Signs Temp 99.2 F 12/08/19 19:11 Pulse 83 12/08/19 19:11 Resp 18 12/08/19 19:11 BP 112/72 12/08/19 19:11 Pulse Ox 91 L 12/08/19 19:11 Intake & Output 12/08/19 12/08/19 12/09/19 06:59 18:59 06:59 Output Total 1650 2800 775 Balance -1650 -2800 -775 Weight 113.398 kg Output: Urine 1650 2800 775 Other: Voiding Method Indwelling Catheter Indwelling Catheter # Bowel Movements 1 1 - Constitutional General appearance: Present: cooperative, no acute distress - Gastrointestinal General gastrointestinal: Present: soft. Absent: distended, tenderness - Genitourinary Genitourinary Comment(s): Mild penile edema. Moderate scrotal edema. Scrotal wound clean, with decreased drainage. No cellulitis. No fluctuance. No necrotic tissue noted. - Psychiatric Psychiatric: Present: A&O x's 3 - Labs CBC & Chem 7: 12/08/19 05:35 12/08/19 05:35 Labs: Abnormal Lab Results - Last 24 Hours (Table) 12/08/19 12/08/19 12/08/19 Range/Units 05:35 05:35 05:35 WBC 12.8 H (3.8-10.6) k/uL RBC 3.53 L (4.30-5.90) m/uL Hgb 9.5 L (13.0-17.5) gm/dL Hct 32.0 L (39.0-53.0) % MCHC 29.6 L (31.0-37.0) g/dL RDW 16.1 H (11.5-15.5) % Neutrophils # 9.9 H (1.3-7.7) k/uL Calcium 8.0 L (8.4-10.2) mg/dL Procalcitonin 0.82 H (0.02-0.09) ng/mL Microbiology - Last 24 Hours (Table) 12/05/19 18:00 Gram Stain - Preliminary Groin Wound Culture - Preliminary Gram Neg Bacilli 12/05/19 18:00 Anaerobic Culture - Final Groin Anaerobic Gm Negative Bacilli Assessment and Plan (1) Fourniers gangrene Current Visit: Yes Status: Acute Code(s): N49.3 - JUAN ANTONIO GANGRENE SNOMED Code(s): 490784985 Plan: Preliminary wound cultures show aerobic and anaerobic gram-negative bacilli. Continue antibiotics, along with local wound care, pending final culture results.
--- NOTE | 2019-12-08 23:32 | PN ---
PROGRESS NOTE DATE OF SERVICE: 12/08/2019 REASON FOR FOLLOWUP: Shobha's gangrene. INTERVAL HISTORY: The patient is currently afebrile. The patient is breathing comfortably. Patient denies having any chest pain or shortness of breath or cough. Scrotal pain is currently controlled. No nausea, vomiting or diarrhea. PHYSICAL EXAMINATION: Blood pressure 112/72 with a pulse of 83, temperature 99.2. He is 91% on 3 L nasal cannula. General description is a middle-aged male lying in bed in no distress. RESPIRATORY SYSTEM: Unlabored breathing is clear to auscultation anteriorly. HEART: S1, S2. Regular rate and rhythm. ABDOMEN: Soft, no tenderness. LABS: Hemoglobin 9.5, white count 12.8, creatinine 0.77. Wound culture showing a Gram- negative bacilli, both aerobes and anaerobes. DIAGNOSTIC IMPRESSION AND PLAN: Patient with Shobha's gangrene in this patient who is status post extensive surgical debridement. Culture now showing gram-negative. Patient is covered with cefepime and Flagyl to continue, adjusting antibiotic further based on results of the culture report and continue with supportive care. MMODL / IJN: [id number] /
[2019-12-09] MEDS: metroNIDAZOLE-NS PMX 500 MG in SALINE 1 100ML.BAG IVPB SCH ×4 (00:23→23:26)
[2019-12-09] MEDS ORDERED: VANCOMYCIN TROUGH DUE 1 EACH MISC MISCELLANE ONE (05:00)
[2019-12-09] MEDS: VANCOMYCIN 2,000 MG in SODIUM CHLORIDE 0.9% 500 ML 500 ML IVPB SCH ×2 (05:38→18:22)
[2019-12-09 05:54] LABS: Basophils % (A) 0 %; Eosinophils # (A) 0.4 k/uL (0-0.7); Eosinophils % (A) 4 %; HCT 32.4 % (39.0-53.0); HGB 9.7 gm/dL (13.0-17.5); Hypochromasia Marked; Lymphocytes # (A) 1.4 k/uL (1.0-4.8); Lymphocytes % (A) 14 %; MCH 26.7 pg (25.0-35.0); MCV 89.3 fL (80.0-100.0); Mean Platelet Volume 7.8; Monocytes # (A) 0.4 k/uL (0-1.0); Monocytes % (A) 4 %; Neutrophils # (A) 7.4 k/uL (1.3-7.7); Neutrophils % (A) 76 %; Platelet Count 330 k/uL (150-450); RBC 3.63 m/uL (4.30-5.90); RDW 15.9 % (11.5-15.5); WBC 9.8 k/uL (3.8-10.6)
[2019-12-09 06:09] LABS: African American GFR (CKD) >90 (>60 ml/min/1.73 sqM); Anion Gap 5 mmol/L; Blood Urea Nitrogen 10 mg/dL (9-20); Calcium 8.2 mg/dL (8.4-10.2); Carbon Dioxide 31 mmol/L (22-30); Chloride 99 mmol/L (98-107); Glucose 89 mg/dL (74-99); Non-African American GFR(CKD) >90 (>60 ml/min/1.73 sqM); Potassium 4.1 mmol/L (3.5-5.1); Sodium 135 mmol/L (137-145)
[2019-12-09] MEDS: HEPARIN SODIUM,PORCINE 5,000 UNIT/ML 1 ML VIAL SQ SCH ×2 (08:59→19:59)
[2019-12-09] MEDS: SERTRALINE 50 MG TAB PO SCH (09:00)
[2019-12-09] MEDS: ALLOPURINOL 300 MG TAB PO SCH (09:00)
[2019-12-09] MEDS: PANTOPRAZOLE 40 MG TABLET PO SCH ×2 (09:00→20:06)
[2019-12-09] MEDS: TAMSULOSIN 0.4 MG CAP.ER.24H PO SCH (09:00)
[2019-12-09] MEDS: CYCLOBENZAPRINE 10 MG TAB PO SCH ×2 (09:00→20:00)
[2019-12-09] MEDS: FAMOTIDINE 20 MG/2 ML VIAL IV SCH ×2 (09:00→20:00)
[2019-12-09] MEDS: FUROSEMIDE 10 MG/ML 4 ML VIAL IV SCH ×2 (09:00→20:00)
[2019-12-09] MEDS: oxyCODONE-APAP 7.5-325MG 1 EACH TAB PO PRN ×2 (09:01→20:00)
[2019-12-09] MEDS: PREGABALIN 100 MG CAP PO SCH ×2 (09:01→20:00)
[2019-12-09] MEDS: LACOSAMIDE 50 MG TABLET PO SCH ×2 (09:02→20:00)
[2019-12-09] MEDS: ESCITALOPRAM 10 MG TAB PO SCH (09:02)
[2019-12-09] MEDS: SENNOSIDES-DOCUSATE SODIUM 1 EACH TAB PO SCH ×2 (09:03→20:05)
[2019-12-09] MEDS: CEFEPIME 2 GM in SODIUM CHLORIDE 0.9% 100 ML IVPB SCH ×2 (10:41→22:17)
[2019-12-09] MEDS ORDERED: MORPHINE SULFATE 2 MG/ML SYRINGE IVP PRN (11:25)
[2019-12-09] MEDS: LACTATED RINGERS 1,000 ML IV SCH (12:10)
[2019-12-09] MEDS: MORPHINE MISCELLANE SCH (12:10)
[2019-12-09] MEDS ORDERED: HYDROmorphone 0.5 MG/0.5 ML SYRINGE IVP STA (12:23)
--- NOTE | 2019-12-09 12:29 | P.PN ---
Subjective on-call hospitalist covering for Dr. Pedraza From records This is a very pleasant 54-year-old patient of Dr. Alexandrea Ang. stable medical conditions include hypertension, , gout, chronic bilateral hip pain, peripheral neuropathy. gastric [place] [address] Zarate. 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 Dumont. At baseline patient is to walk slowly because of peripheral neuropathy. In August 2018 patient had EGD done that showed severe erosive esophagitis with esophageal ulcer. readmitted July 05 underwent balloon dilatation of 10-7 mm done. admitted July 22 and underwent EGD by Dr. Carbajal. Found-severe esophagitis and distal esophageal obstruction. A 10 mm dilatation was carried out. Retained food was extracted. Found to have possible aspiration pneumonia bilateral, treat with IV Zosyn-discharge. Dr. Carbajal on Augmentin on July 26. Admitted on July 29 with orthostatic hypotension. This time patient presents with 2 days of cough fever and yellow sputum. Ch ills. Headache body aches tired rundown. Decreased appetite. Chest x-ray showing pneumonia. Admitted with pneumonia and sepsis. Started and IV ceftriaxone.on December 02 antibiotic changed to cefepime because of fever. Patient then developed painful swelling of the scrotum. subjective 12/06/2019 this is a pleasant 54 years old -Maldivian male with diabetes who presents with pneumonia found to have Shobha gangrene status post surgical evaluation and debridement of the right hemiscrotum more than 10 same TURP with cystoscopy. Also patient has anasarca. His blood pressure was on the low normal throughout his stay, he is neither on IV fluids or steroids or on Lasix. he had a fever yesterday of 100.5.currently blood pressure 93/40. WBC is 15.2 K day.platelets are up to 140 8K. BMP is unremarkable. Protocol stone and elevated 4.1, ejection fraction of from 07/29/19 was 50-55% Currently is on cefepime, IV Flagyl and IV vancomycin 12/07/2019 The patient is fully awake and oriented. No new complaints. However he still have significant pain at the scrotal surgical site especially with the dressing, a dose of Percocet is added and discussed with staff. Patient is already on m orphine pump as an outpatient and he follows up with Dr. Mckinney who manages his pump, he did that for his his chronic back problem with history of back surgery. Physical have some leg edema and and the anasarca. Hernandez catheter is in place. Patient is complaining of from constipation and laxative is added. No nausea vomiting. No abdominal pain. No chest pain or dyspnea 12/08/2019 Patient is awake and alert, no new complaints.patient feels his surgical wounds at the scrotum is slightly improving. urologist is following the patient and they consider repeating CAT scan if the drain does not stop from the wound. Patient still has bilateral leg swelling, his blood pressure and vital signs s table, patient was started on Lasix 40 mg IV. Patient remains on broad-spectrum antibiotics with cefepime, Flagyl and IV vancomycin patient may benefit from an ECF for inpatient rehab upon discharge Give laxative Senokot twice a day 12/09/2019 Patient today sitting in chair. Chest pain in the scrotal area is improving however he is complaining of from pain and the left side of the chest and back on taking deep breaths and coughing, however he is not short of breath, no significant coughing. No chest wall tenderness. The scrotal swelling and wound is improving, less drain as per staff. Urology on the case, no recommendation for repeat CAT scan for now per urology service His wound culture is growing gram-negative bacilli and tenderness on cefepime, Flagyl and vancomycin for now, WBCs back to normal at 9.8, BMP is normal. Blood pressure is a stable 103/61, patient is on Lasix intravenously. Objective - Vital Signs Vital signs: Vital Signs Temp 98.4 F 12/09/19 07:00 Pulse 77 12/09/19 07:00 Resp 18 12/09/19 07:00 BP 103/61 12/09/19 07:00 Pulse Ox 95 12/09/19 07:00 Intake & Output 12/08/19 12/09/19 12/09/19 18:59 06:59 18:59 Output Total 2800 2625 Balance -2800 -2625 Weight 113.398 kg Output: Urine 2800 2625 Other: Voiding Method Indwelling Catheter Indwelling Catheter Indwelling Catheter # Bowel Movements 1 1 - Exam -GENERAL: The patient is alert and oriented x3, not in any acute distress.obese HEENT: Pupils are round and equally reacting to light. EOMI. No scleral icterus. No conjunctival pallor. Normocephalic, atraumatic. No pharyngeal erythema. No thyromegaly. CARDIOVASCULAR: S1 and S2 present. No murmurs, rubs, or gallops. PULMONARY: Chest is clear to auscultation, no wheezing or crackles. -ABDOMEN: Soft, nontender, nondistended, normoactive bowel sounds. No palpable organomegaly. lower scrotal wound with dressing is in place MUSCULOSKELETAL: No joint swelling or deformity. -EXTREMITIES: No cyanosis, clubbing. bilateral leg edema and anasarca NEUROLOGICAL: Gross neurological examination did not reveal any focal deficits. SKIN: No rashes. no petechiae. - Labs CBC & Chem 7: 12/09/19 05:40 12/09/19 05:40 Labs: Abnormal Lab Results - Last 24 Hours (Table) 12/08/19 12/09/19 12/09/19 Range/Units 05:35 05:40 05:40 RBC 3.63 L (4.30-5.90) m/uL Hgb 9.7 L (13.0-17.5) gm/dL Hct 32.4 L (39.0-53.0) % MCHC 30.0 L (31.0-37.0) g/dL RDW 15.9 H (11.5-15.5) % Sodium 135 L (137-145) mmol/L Carbon Dioxide 31 H (22-30) mmol/L Calcium 8.2 L (8.4-10.2) mg/dL Procalcitonin 0.82 H (0.02-0.09) ng/mL Microbiology - Last 24 Hours (Table) 12/05/19 18:00 Gram Stain - Preliminary Groin Wound Culture - Preliminary Gram Neg Bacilli 12/05/19 18:00 Anaerobic Culture - Final Groin Anaerobic Gm Negative Bacilli Assessment and Plan Assessment: -Shobha's gangrene , status post surgical debridement of the right hemiscrotum -Left lower pneumonia suspected gram-negative organism, POA clinically improved -History of recurrent esophageal stricture with recurrent dilatation -Severe esophagitis and distal esophageal ulcer., -History of paraesophageal repair and history of sleeve gastrectomy -Essential hypertension, currently blood pressure is on the low-normal signed -Primary osteoarthritis -Gout -Idiopathic peripheral neuropathy -Chronic back pain with the pain pump -Acute kidney injury likely ATN from sepsis-improving Plan: this is a pleasant 53 years old male who presents with from near gangrene and pneumonia status post surgical debridement. Continue with broad-spectrum antibiotics with cefepime, Flagyl and IV vancomycin. Infectious disease and urology services are on the team. Follow-up culture results and WBCs. Follow- up blood pressure. Hold metoprolol. Continue with Lasix Labs and medication were reviewed.. Continue same treatment. Continue with symptomatic treatment. Resume home medication. Monitor lytes and vitals. DVT and GI prophylaxis. Further recommendations of the clinical course of the patient DVT prophylaxis: Subcutaneous heparin GI Prophylaxis: Pepcid PT/OT: Pending Prognosis is guarded
--- NOTE | 2019-12-09 13:43 | XR ---
EXAMINATION TYPE: XR chest 1V DATE OF EXAM: 12/09/2019 CLINICAL HISTORY: Left-sided chest pain on coughing and deep inspiration. TECHNIQUE: Single AP portable upright view of the chest is obtained. COMPARISON: Chest x-ray from one week earlier FINDINGS: Persistent low lung volumes and bibasilar opacity perhaps slightly greater in the right abhi ng base on current study. Right-sided patient rotation redemonstrated. Cardiac sludge size stable and within normal limits. Gas prominent bowel loops in the upper abdomen redemonstrated. Surgical change area near the cervicothoracic junction again seen IMPRESSION: Low lung volumes with left basilar linear scarring and/or atelectasis spell fairly stable . Slightly more prominent right basilar opacity favoring increasing atelectasis and suspected small r ight pleural effusion.
--- NOTE | 2019-12-09 17:06 | P.PN ---
Subjective Progress Note Date: 12/09/19 POD #4 S/P Debridement of scrotum No acute overnight event, pain controlled, afebrile overnight Objective - Vital Signs Vital signs: Vital Signs Temp 97.9 F 12/09/19 15:00 Pulse 79 12/09/19 15:00 Resp 16 12/09/19 15:00 BP 116/75 12/09/19 15:00 Pulse Ox 97 12/09/19 15:00 Intake & Output 12/08/19 12/09/19 12/09/19 18:59 06:59 18:59 Output Total 2800 2625 2625 Balance -2800 -2625 -2625 Weight 113.398 kg Output: Urine 2800 2625 2625 Other: Voiding Method Indwelling Catheter Indwelling Catheter Indwelling Catheter # Bowel Movements 1 1 - Genitourinary Genitourinary Comment(s): Cellulitis significantly improved compared to presentation. minimal seropurlent drainage . No additional fluctuance appreciated - Labs CBC & Chem 7: 12/09/19 05:40 12/09/19 05:40 Labs: Abnormal Lab Results - Last 24 Hours (Table) 12/09/19 12/09/19 Range/Units 05:40 05:40 RBC 3.63 L (4.30-5.90) m/uL Hgb 9.7 L (13.0-17.5) gm/dL Hct 32.4 L (39.0-53.0) % MCHC 30.0 L (31.0-37.0) g/dL RDW 15.9 H (11.5-15.5) % Sodium 135 L (137-145) mmol/L Carbon Dioxide 31 H (22-30) mmol/L Calcium 8.2 L (8.4-10.2) mg/dL Microbiology - Last 24 Hours (Table) 12/05/19 18:00 Gram Stain - Preliminary Groin Wound Culture - Preliminary Gram Neg Bacilli 12/05/19 18:00 Anaerobic Culture - Final Groin Anaerobic Gm Negative Bacilli Assessment and Plan Assessment: 54 yo male admitted to the hospital with pneumonia. Urology is consulted for scrotal edema and cellulitis. Scrotal U/S demonstrated bilateral orchitis. CT showed subcutaneous air concerning for Shobha's gangrene , POD #4 S/P surgical debridment of scrotum. He's afebrile, white count within normal limits. Still having some seropurulent drainage, wound is clean no additional area of fluctuance cellulitis significantly improved Plan: -Continue antibiotics, will f/u on ID recs and wound cultures -Daily dressing change -Keep Hernandez -We'll reassess tomorrow
[2019-12-09] MEDS: ZOLPIDEM 10 MG TAB PO SCH (20:06)
--- NOTE | 2019-12-10 00:17 | PN ---
PROGRESS NOTE DATE OF SERVICE: 12/09/2019 REASON FOR FOLLOWUP: Shobha's gangrene. INTERVAL HISTORY: The patient is currently afebrile. Patient is breathing comfortably. Patient denies having any chest pain. No shortness of breath or cough. Pain to his scrotal area is currently controlled. No nausea, no vomiting. No diarrhea. PHYSICAL EXAMINATION: Blood pressure 103/64 with the pulse of 89, temperature 98.7. He is 90% on 3 L nasal cannula. General description is a middle-aged male lying in bed in no distress. RESPIRATORY SYSTEM: Unlabored breathing, clear to auscultation anteriorly. HEART: S1, S2. Regular rate and rhythm. ABDOMEN: Soft, no tenderness. Wound is currently dressed up. LABS: Hemoglobin is 9.7, white count 9.8 with a BUN of 10, creatinine 0.72. Wound culture has been finalized with Pseudomonas and anaerobes. DIAGNOSTIC IMPRESSION AND PLAN: Patient with Shobha's gangrene, status post debridement culture has been positive for Pseudomonas and anaerobes. The patient is covered cefepime and Flagyl to continue. Vancomycin will be discontinued as no methicillin-resistant Staphylococcus aureus has been grown and continue with supportive care. MMODL / IJN: [id number] /
--- NOTE | 2019-12-10 08:28 | P.PN ---
Subjective Progress Note Date: 12/10/19 Principal diagnosis: POD #5, s/p Scrotal Debridement The patient reports that his pain is significantly improved. He remains afebrile. Objective - Vital Signs Vital signs: Vital Signs Temp 98.0 F 12/10/19 03:12 Pulse 79 12/10/19 03:12 Resp 17 12/10/19 03:12 BP 104/67 12/10/19 03:12 Pulse Ox 95 12/10/19 03:12 Intake & Output 12/09/19 12/10/19 12/10/19 18:59 06:59 18:59 Output Total 2625 2250 Balance -2625 -2250 Weight 113.5 kg Output: Urine 262 2250 Other: Voiding Method Indwelling Catheter Indwelling Catheter - Constitutional General appearance: Present: cooperative, no acute distress - Genitourinary Genitourinary Comment(s): Moderate penoscrotal edema. Wound clean. There does not appear to be any significant drainage, but the dressing was changed recently. There is no purulence. There is a small area of fluctuance on the upper anterior aspect of the right hemiscrotum. Pressure applied here does not result in increased wound drainage. There is no fluctuance. - Labs CBC & Chem 7: 12/09/19 05:40 12/09/19 05:40 Labs: Microbiology - Last 24 Hours (Table) 12/05/19 18:00 Gram Stain - Final Groin Wound Culture - Final Pseudomonas aeruginosa Assessment and Plan (1) Fourniers gangrene Current Visit: Yes Status: Acute Code(s): N49.3 - JUAN ANTONIO GANGRENE SNOMED Code(s): 072034837 Plan: Wound cultures shows Pseudomonas, sensitive to cefepime. Will continue antibiotics and local wound care. I have asked the nursing staff to monitor the area of fluctuance on the right anterior hemiscrotum and notify me of any changes.
[2019-12-10] MEDS: CEFEPIME 2 GM in SODIUM CHLORIDE 0.9% 100 ML IVPB SCH ×2 (09:08→21:51)
[2019-12-10] MEDS: FUROSEMIDE 10 MG/ML 4 ML VIAL IV SCH ×2 (09:09→21:48)
[2019-12-10] MEDS: FAMOTIDINE 20 MG/2 ML VIAL IV SCH ×2 (09:09→21:48)
[2019-12-10] MEDS: SENNOSIDES-DOCUSATE SODIUM 1 EACH TAB PO SCH ×2 (09:10→21:51)
[2019-12-10] MEDS: HEPARIN SODIUM,PORCINE 5,000 UNIT/ML 1 ML VIAL SQ SCH ×2 (09:10→21:48)
[2019-12-10] MEDS: ESCITALOPRAM 10 MG TAB PO SCH (09:10)
[2019-12-10] MEDS: SERTRALINE 50 MG TAB PO SCH (09:11)
[2019-12-10] MEDS: PREGABALIN 100 MG CAP PO SCH ×2 (09:11→21:49)
[2019-12-10] MEDS: TAMSULOSIN 0.4 MG CAP.ER.24H PO SCH (09:11)
[2019-12-10] MEDS: PANTOPRAZOLE 40 MG TABLET PO SCH ×2 (09:11→21:49)
[2019-12-10] MEDS: ALLOPURINOL 300 MG TAB PO SCH (09:11)
[2019-12-10] MEDS: CYCLOBENZAPRINE 10 MG TAB PO SCH ×2 (09:11→21:51)
[2019-12-10] MEDS: LACOSAMIDE 50 MG TABLET PO SCH ×2 (09:18→21:49)
[2019-12-10] MEDS: metroNIDAZOLE-NS PMX 500 MG in SALINE 1 100ML.BAG IVPB SCH ×3 (10:17→23:35)
[2019-12-10 10:23] LABS: Basophils % (A) 0 %; Eosinophils # (A) 0.4 k/uL (0-0.7); Eosinophils % (A) 4 %; HCT 32.8 % (39.0-53.0); HGB 9.9 gm/dL (13.0-17.5); Hypochromasia Marked; Lymphocytes # (A) 1.4 k/uL (1.0-4.8); Lymphocytes % (A) 15 %; MCH 26.7 pg (25.0-35.0); MCV 88.8 fL (80.0-100.0); Mean Platelet Volume 7.8; Monocytes # (A) 0.4 k/uL (0-1.0); Monocytes % (A) 5 %; Neutrophils # (A) 7.1 k/uL (1.3-7.7); Neutrophils % (A) 75 %; Platelet Count 422 k/uL (150-450); WBC 9.4 k/uL (3.8-10.6)
[2019-12-10] MEDS: oxyCODONE-APAP 7.5-325MG 1 EACH TAB PO PRN ×2 (11:59→21:49)
[2019-12-10] MEDS: LACTATED RINGERS 1,000 ML IV SCH (13:11)
[2019-12-10] MEDS: MORPHINE MISCELLANE SCH (13:11)
[2019-12-10] MEDS ORDERED: Magnesium Replacement Protocol 1 EACH MISC MISCELLANE PRN (14:15)
[2019-12-10] MEDS: MAGNESIUM SULFATE-D5W PMX 1 GM in DEXTROSE/WATER 1 100ML.BAG IVPB SCH ×3 (14:56→19:24)
[2019-12-10] MEDS ORDERED: HYDROmorphone 0.5 MG/0.5 ML SYRINGE IVP STA (15:11)
--- NOTE | 2019-12-10 15:11 | P.PN ---
Subjective on-call hospitalist covering for Dr. Pedraza From records This is a very pleasant 54-year-old patient of Dr. Alexandrea Ang. stable medical conditions include hypertension, , gout, chronic bilateral hip pain, peripheral neuropathy. gastric sleeve in [address] Zarate. 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 Dumont. At baseline patient is to walk slowly because of peripheral neuropathy. In August 2018 patient had EGD done that showed severe erosive esophagitis with esophageal ulcer. readmitted July 05 underwent balloon dilatation of 10-7 mm done. admitted July 22 and underwent EGD by Dr. Carbajal. Found-severe esophagitis and distal esophageal obstruction. A 10 mm dilatation was carried out. Retained food was extracted. Found to have possible aspiration pneumonia bilateral, treat with IV Zosyn-discharge. Dr. Carbajal on Augmentin on July 26. Admitted on July 29 with orthostatic hypotension. This time patient presents with 2 days of cough fever and yellow sputum. Ch ills. Headache body aches tired rundown. Decreased appetite. Chest x-ray showing pneumonia. Admitted with pneumonia and sepsis. Started and IV ceftriaxone.on December 02 antibiotic changed to cefepime because of fever. Patient then developed painful swelling of the scrotum. subjective 12/06/2019 this is a pleasant 54 years old -Filipino male with diabetes who presents with pneumonia found to have Shobha gangrene status post surgical evaluation and debridement of the right hemiscrotum more than 10 same TURP with cystoscopy. Also patient has anasarca. His blood pressure was on the low normal throughout his stay, he is neither on IV fluids or steroids or on Lasix. he had a fever yesterday of 100.5.currently blood pressure 93/40. WBC is 15.2 K day.platelets are up to 140 8K. BMP is unremarkable. Protocol stone and elevated 4.1, ejection fraction of from 07/29/19 was 50-55% Currently is on cefepime, IV Flagyl and IV vancomycin 12/07/2019 The patient is fully awake and oriented. No new complaints. However he still have significant pain at the scrotal surgical site especially with the dressing, a dose of Percocet is added and discussed with staff. Patient is already on m orphine pump as an outpatient and he follows up with Dr. Mckinney who manages his pump, he did that for his his chronic back problem with history of back surgery. Physical have some leg edema and and the anasarca. Hernandez catheter is in place. Patient is complaining of from constipation and laxative is added. No nausea vomiting. No abdominal pain. No chest pain or dyspnea 12/08/2019 Patient is awake and alert, no new complaints.patient feels his surgical wounds at the scrotum is slightly improving. urologist is following the patient and they consider repeating CAT scan if the drain does not stop from the wound. Patient still has bilateral leg swelling, his blood pressure and vital signs s table, patient was started on Lasix 40 mg IV. Patient remains on broad-spectrum antibiotics with cefepime, Flagyl and IV vancomycin patient may benefit from an ECF for inpatient rehab upon discharge Give laxative Senokot twice a day 12/09/2019 Patient today sitting in chair. Chest pain in the scrotal area is improving however he is complaining of from pain and the left side of the chest and back on taking deep breaths and coughing, however he is not short of breath, no significant coughing. No chest wall tenderness. The scrotal swelling and wound is improving, less drain as per staff. Urology on the case, no recommendation for repeat CAT scan for now per urology service His wound culture is growing gram-negative bacilli and tenderness on cefepime, Flagyl and vancomycin for now, WBCs back to normal at 9.8, BMP is normal. Blood pressure is a stable 103/61, patient is on Lasix intravenously. 12/10/2019 patient clinically stable. No dyspnea.have some arthritic-like chest pain on th e left side, Chest x-ray: Low lung volumes with left basilar lining scanning and/or atelectasis fairly stable. Slightly more prominent right basilar opacity fever and increasing atelectasis with small right pleural effusion. Patient was started on incentive spirometry from yesterday, patient I provided that side training for him. Patient is not cleared by surgical team for discharge. And upon their recommendation hemostat till Friday Wound culture is growing gram-negative bacilli and pseudomonas,and patient is on cefepime by ID team also is on Flagyl . IV vancomycin was discontinued by ID Objective - Vital Signs Vital signs: Vital Signs Temp 98.1 F 12/10/19 07:00 Pulse 69 12/10/19 09:08 Resp 16 12/10/19 09:08 BP 115/71 12/10/19 07:00 Pulse Ox 96 12/10/19 07:00 Intake & Output 12/09/19 12/10/19 12/10/19 18:59 06:59 18:59 Output Total 2625 2250 3200 Balance -2625 -2250 -3200 Weight 113.5 kg Output: Urine 2625 2250 3200 Other: Voiding Method Indwelling Catheter Indwelling Catheter Indwelling Catheter # Bowel Movements 1 - Exam -GENERAL: The patient is alert and oriented x3, not in any acute distress.obese HEENT: Pupils are round and equally reacting to light. EOMI. No scleral icterus. No conjunctival pallor. Normocephalic, atraumatic. No pharyngeal erythema. No thyromegaly. CARDIOVASCULAR: S1 and S2 present. No murmurs, rubs, or gallops. PULMONARY: Chest is clear to auscultation, no wheezing or crackles. -ABDOMEN: Soft, nontender, nondistended, normoactive bowel sounds. No palpable organomegaly. lower scrotal wound with dressing is in place MUSCULOSKELETAL: No joint swelling or deformity. -EXTREMITIES: No cyanosis, clubbing. bilateral leg edema and anasarca NEUROLOGICAL: Gross neurological examination did not reveal any focal deficits. SKIN: No rashes. no petechiae. - Labs CBC & Chem 7: 12/10/19 09:00 12/09/19 05:40 Labs: Abnormal Lab Results - Last 24 Hours (Table) 12/10/19 12/10/19 Range/Units 09:00 09:00 RBC 3.70 L (4.30-5.90) m/uL Hgb 9.9 L (13.0-17.5) gm/dL Hct 32.8 L (39.0-53.0) % MCHC 30.0 L (31.0-37.0) g/dL RDW 16.0 H (11.5-15.5) % Magnesium 1.3 L (1.6-2.3) mg/dL Microbiology - Last 24 Hours (Table) 12/05/19 18:00 Gram Stain - Final Groin Wound Culture - Final Pseudomonas aeruginosa Assessment and Plan Assessment: -Shobha's gangrene , status post surgical debridement of the right hemiscrotum. Secondary to Pseudomonas infection -Left lower pneumonia suspected gram-negative organism, POA clinically improved -History of recurrent esophageal stricture with recurrent dilatation -Severe esophagitis and distal esophageal ulcer., -History of paraesophageal repair and history of sleeve gastrectomy -Essential hypertension, currently blood pressure is on the low-normal signed -Primary osteoarthritis -Gout -Idiopathic peripheral neuropathy -Chronic back pain with the pain pump -Acute kidney injury likely ATN from sepsis-improving Plan: this is a pleasant 53 years old male who presents with from near gangrene and pneumonia status post surgical debridement. Continue with broad-spectrum antibiotics with cefepime, Flagyl and IV vancomycin. Infectious disease and urology services are on the team. Follow-up culture results and WBCs. Follow- up blood pressure. Hold metoprolol. Continue with Lasix Labs and medication were reviewed.. Continue same treatment. Continue with symptomatic treatment. Resume home medication. Monitor lytes and vitals. DVT and GI prophylaxis. Further recommendations of the clinical course of the patient DVT prophylaxis: Subcutaneous heparin GI Prophylaxis: Pepcid PT/OT: Pending Prognosis is guarded
[2019-12-10] MEDS: ZOLPIDEM 10 MG TAB PO SCH (21:49)
--- NOTE | 2019-12-11 01:14 | PN ---
PROGRESS NOTE DATE OF SERVICE: 12/10/2019 REASON FOR FOLLOW UP: Shobha's gangrene. INTERVAL HISTORY: The patient is currently afebrile, has been breathing comfortably. He is complaining of some left lower chest pain. No cough. No nausea, no vomiting. No abdominal pain. Pain to the scrotal area but decreased intensity. PHYSICAL EXAMINATION: Blood pressure 101/66, pulse of 82, temperature 98.3, he is 91% on room air. General description is a middle-aged male lying in bed in no distress. Respiratory system: Unlabored breathing, decreased breath sounds at the base. No wheeze. Heart: S1, S2. Regular rate and rhythm. Abdomen soft, no tenderness. LABS: Hemoglobin is 9.8, white count 9.4 with a BUN of 10, creatinine 0.72. DIAGNOSTIC IMPRESSION AND PLAN: Shobha's gangrene in this patient status post extensive debridement. Culture positive for Pseudomonas anaerobes. The patient is currently covered with cefepime and Flagyl to continue. Will get a PICC line for outpatient IV antibiotic therapy. Continue supportive care. MMODL / IJN: [id number] /
[2019-12-11] MEDS: CEFEPIME 2 GM in SODIUM CHLORIDE 0.9% 100 ML IVPB SCH ×2 (08:20→20:10)
[2019-12-11] MEDS: metroNIDAZOLE-NS PMX 500 MG in SALINE 1 100ML.BAG IVPB SCH ×2 (08:20→17:02)
[2019-12-11] MEDS: SENNOSIDES-DOCUSATE SODIUM 1 EACH TAB PO SCH ×3 (08:21→20:27)
[2019-12-11] MEDS: TAMSULOSIN 0.4 MG CAP.ER.24H PO SCH (08:21)
[2019-12-11] MEDS: HEPARIN SODIUM,PORCINE 5,000 UNIT/ML 1 ML VIAL SQ SCH ×2 (08:21→20:11)
[2019-12-11] MEDS: LACOSAMIDE 50 MG TABLET PO SCH ×2 (08:21→20:11)
[2019-12-11] MEDS: ALLOPURINOL 300 MG TAB PO SCH (08:21)
[2019-12-11] MEDS: SERTRALINE 50 MG TAB PO SCH (08:21)
[2019-12-11] MEDS: PREGABALIN 100 MG CAP PO SCH ×2 (08:21→20:11)
[2019-12-11] MEDS: CYCLOBENZAPRINE 10 MG TAB PO SCH ×2 (08:21→20:11)
[2019-12-11] MEDS: FAMOTIDINE 20 MG/2 ML VIAL IV SCH ×2 (08:22→20:11)
[2019-12-11] MEDS: FUROSEMIDE 10 MG/ML 4 ML VIAL IV SCH ×2 (08:22→20:10)
[2019-12-11] MEDS: PANTOPRAZOLE 40 MG TABLET PO SCH ×2 (08:22→20:11)
[2019-12-11] MEDS: ESCITALOPRAM 10 MG TAB PO SCH (08:22)
[2019-12-11 09:04] LABS: African American GFR (CKD) >90 (>60 ml/min/1.73 sqM); Anion Gap 4 mmol/L; Blood Urea Nitrogen 11 mg/dL (9-20); Calcium 7.9 mg/dL (8.4-10.2); Carbon Dioxide 38 mmol/L (22-30); Chloride 94 mmol/L (98-107); Glucose 80 mg/dL (74-99); Magnesium 1.5 mg/dL (1.6-2.3); Non-African American GFR(CKD) >90 (>60 ml/min/1.73 sqM); Potassium 4.3 mmol/L (3.5-5.1); Sodium 136 mmol/L (137-145)
[2019-12-11 09:42] LABS: Anisocytosis Slight; HCT 30.7 % (39.0-53.0); HGB 9.1 gm/dL (13.0-17.5); Hypochromasia Marked; MCH 26.4 pg (25.0-35.0); MCHC 29.5 g/dL (31.0-37.0); MCV 89.4 fL (80.0-100.0); Mean Platelet Volume 10.4; Platelet Count 298 k/uL (150-450); RBC 3.44 m/uL (4.30-5.90); RDW 16.1 % (11.5-15.5); WBC 6.8 k/uL (3.8-10.6)
[2019-12-11 10:47] LABS: Eosinophils # (M) 0.61 k/uL (0-0.7); Lymphocytes # (M) 1.22 k/uL (1.0-4.8); Monocytes # (M) 0.41 k/uL (0-1.0); Neutrophils # (M) 4.56 k/uL (1.3-7.7); Neutrophils % (M) 67 %; Nucleated Red Blood Cells 0 /100 WBC (0-0); Total Cells Counted 100
[2019-12-11] MEDS: LACTATED RINGERS 1,000 ML IV SCH (10:52)
--- NOTE | 2019-12-11 11:12 | P.PN ---
Subjective Progress Note Date: 12/11/19 Principal diagnosis: POD #6, s/p Scrotal Debridement The patient reports left-sided chest discomfort with deep inspiration. He denies scrotal pain. Objective - Vital Signs Vital signs: Vital Signs Temp 98.2 F 12/11/19 07:00 Pulse 69 12/11/19 07:00 Resp 18 12/11/19 07:00 BP 99/58 12/11/19 07:00 Pulse Ox 94 L 12/11/19 07:00 Intake & Output 12/10/19 12/11/19 12/11/19 18:59 06:59 18:59 Output Total 3200 4075 Balance -3200 -4075 Weight 113.4 kg Output: Urine 3200 4075 Other: Voiding Method Indwelling Catheter Indwelling Catheter # Bowel Movements 1 - Constitutional General appearance: Present: average body habitus, no acute distress - Gastrointestinal General gastrointestinal: Present: soft. Absent: distended, tenderness - Genitourinary Genitourinary Comment(s): Diminished penile edema. Mild scrotal edema. Scrotal wound is clean, with no necrotic tissue and minimal serous drainage. There remains a small area of fluctuance on the anterior aspect of the right hemiscrotum. A cotton tip applicator was passed through the scrotal wound but this does not communicate with the area of fluctuance. No purulence noted. No cellulitis. - Psychiatric Psychiatric: Present: A&O x's 3 - Labs CBC & Chem 7: 12/11/19 07:30 12/11/19 07:30 Labs: Abnormal Lab Results - Last 24 Hours (Table) 12/11/19 12/11/19 Range/Units 07:30 07:30 RBC 3.44 L (4.30-5.90) m/uL Hgb 9.1 L (13.0-17.5) gm/dL Hct 30.7 L (39.0-53.0) % MCHC 29.5 L (31.0-37.0) g/dL RDW 16.1 H (11.5-15.5) % Sodium 136 L (137-145) mmol/L Chloride 94 L (98-107) mmol/L Carbon Dioxide 38 H (22-30) mmol/L Calcium 7.9 L (8.4-10.2) mg/dL Magnesium 1.5 L (1.6-2.3) mg/dL Assessment and Plan (1) Fourniers gangrene Current Visit: Yes Status: Acute Code(s): N49.3 - JUAN ANTONIO GANGRENE SNOMED Code(s): 399401334 Plan: Wound cultures shows Pseudomonas, sensitive to cefepime. Will continue antibiotics and local wound care. I intend to perform incision and drainage in the area of fluctuance on the right anterior hemiscrotum.
[2019-12-11] MEDS: oxyCODONE-APAP 7.5-325MG 1 EACH TAB PO PRN ×2 (11:16→22:18)
[2019-12-11] MEDS ORDERED: LIDOCAINE 2% INJ 20 MG/ML (20 ML MDV) SQ ONE (12:00)
[2019-12-11] MEDS: MORPHINE MISCELLANE SCH (16:47)
[2019-12-11] MEDS: ZOLPIDEM 10 MG TAB PO SCH (20:11)
[2019-12-11] MEDS ORDERED: Potassium Replacement Protocol 1 EACH MISC MISCELLANE PRN (20:34)
[2019-12-11] MEDS ORDERED: Magnesium Replacement Protocol 1 EACH MISC MISCELLANE PRN (20:34)
--- NOTE | 2019-12-11 21:23 | PN ---
PROGRESS NOTE DATE OF SERVICE: 12/11/2019 DATE OF SERVICE: This 54-year-old gentleman who was admitted with Shobha's gangrene had surgical debridement in the right hemiscrotum. The cultures are growing Pseudomonas aeruginosa which is poly sensitive. The patient also initially was thought to have pneumonia. The most recent chest x-ray showed some bibasilar linear atelectasis. Otherwise, Urology has seen the patient today and Dr. Almonte recommended continue the antibiotics and possibly incision and drainage of the area of fluctuation in the right anterior hemiscrotum. PAST MEDICAL HISTORY: Reviewed. REVIEW OF SYSTEMS: CARDIOVASCULAR: No angina. RESPIRATORY: No cough. GI: As mentioned earlier. : As mentioned earlier. NERVOUS SYSTEMS: No numbness or weakness. CURRENT MEDICATIONS: Tylenol, zyloprim, cefepime 2 g b.i.d., Flexeril, Lexapro, Pepcid, Lasix, heparin, Vimpat, lactated Ringer, morphine for pain, oxycodone, Lyrica, Senokot-S, Zoloft, Flomax, Ambien. The doses and rules are reviewed. PHYSICAL EXAM: Patient alert oriented x2. Pulse 78, blood pressure 100/73, respiration 18, temperature 97.7, pulse ox 98% on 2 L. HEENT: Conjunctivae normal. Oral mucosa moist. NECK: No jugular venous distention. No lymph node enlargement. CARDIOVASCULAR: S1, S2. RESPIRATORY: Diminished breath sounds at the bases. Bilateral scattered rhonchi and crackles. ABDOMEN: Soft, nontender. Examination of perineum showed significant swelling and redness. LEGS: No edema, no swelling. NERVOUS SYSTEM: No focal deficits. LABS: WBC 6.8, hemoglobin 9.1, sodium 136 and magnesium is 1.5. ASSESSMENT: 1. Shobha's gangrene with possible sepsis present on admission, status post surgical debridement of the right hemiscrotum secondary to Pseudomonas aeruginosa sensitive to cefepime. 2. Left lower pneumonia, possibly gram-negative, present on admission. 3. Change in mental status, acute on chronic metabolic encephalopathy. 4. History of recurrent esophageal stricture with recurrent dilatation. 5. Severe esophagitis with distal esophageal ulcer. 6. History of paraesophageal repair. 7. History of sleeve gastrectomy. 8. Hypertension. 9. Degenerative joint disease. 10.Gout. 11.Idiopathic peripheral neuropathy. 12.Chronic back pain with pain pump. 13.Acute kidney injury, acute tubular necrosis with sepsis, improving. 14.Hyponatremia. 15.Hypomagnesemia. 16.Anemia, normocytic anemia of chronic disease. 17.Increased WBC, improved. RECOMMENDATIONS AND DISCUSSION: In this 54-year-old gentleman who presented with multiple complex medical issues, we will monitor the patient closely, continue the current management and symptomatic treatment. Otherwise, at this time I recommend to replace potassium and magnesium. Otherwise, closely follow. Continue with antibiotics. Cultures as above. Will follow closely. Follow with Infectious Disease and Urology. Further recommendations to follow. MMODL / IJN: [id number] /
[2019-12-11] MEDS: SUCRALFATE 1 GM TAB PO SCH (23:07)
--- NOTE | 2019-12-11 23:34 | PN ---
PROGRESS NOTE DATE OF SERVICE: 12/11/2019 REASON FOR FOLLOWUP: Shobha's gangrene. INTERVAL HISTORY: Patient is currently afebrile. The patient has been breathing comfortably, hemodynamically stable. No nausea, vomiting. No diarrhea or any worsening pain has been reported. PHYSICAL EXAMINATION: Blood pressure 120/73 with a pulse of 78, temperature 97.7. He is 92% on 2 L nasal cannula. General description is a middle-aged male lying in bed in no distress. Respiratory system: Unlabored breathing. Clear to auscultation anteriorly. Heart S1, S2. Regular rate and rhythm. Abdomen soft, no tenderness. LABS: Hemoglobin 9.1, white count 6.8, creatinine 0.71. DIAGNOSTIC IMPRESSION AND PLAN: Patient with Shobha's gangrene status post extensive surgical debridement. Culture positive for Pseudomonas and anaerobic Gram-negative bacilli. Patient is covered with cefepime and Flagyl to continue. We will get a midline for outpatient IV antibiotics. Local care to continue per Surgery. Continue supportive care. MMODL / IJN: [id number] /
[2019-12-12] MEDS: metroNIDAZOLE-NS PMX 500 MG in SALINE 1 100ML.BAG IVPB SCH ×3 (00:18→15:39)
[2019-12-12] MEDS: PREGABALIN 100 MG CAP PO SCH ×2 (08:07→21:08)
[2019-12-12] MEDS: ESCITALOPRAM 10 MG TAB PO SCH (08:07)
[2019-12-12] MEDS: HEPARIN SODIUM,PORCINE 5,000 UNIT/ML 1 ML VIAL SQ SCH ×2 (08:07→21:08)
[2019-12-12] MEDS: LACOSAMIDE 50 MG TABLET PO SCH ×2 (08:08→21:08)
[2019-12-12] MEDS: ALLOPURINOL 300 MG TAB PO SCH (08:08)
[2019-12-12] MEDS: SERTRALINE 50 MG TAB PO SCH (08:08)
[2019-12-12] MEDS: FUROSEMIDE 10 MG/ML 4 ML VIAL IV SCH ×2 (08:08→21:09)
[2019-12-12] MEDS: SUCRALFATE 1 GM TAB PO SCH ×2 (08:09→21:08)
[2019-12-12] MEDS: PANTOPRAZOLE 40 MG TABLET PO SCH ×2 (08:09→21:08)
[2019-12-12] MEDS: SENNOSIDES-DOCUSATE SODIUM 1 EACH TAB PO SCH ×2 (08:09→21:08)
[2019-12-12] MEDS: FAMOTIDINE 20 MG/2 ML VIAL IV SCH ×2 (08:09→21:09)
[2019-12-12] MEDS: CYCLOBENZAPRINE 10 MG TAB PO SCH ×2 (08:09→21:08)
[2019-12-12] MEDS: TAMSULOSIN 0.4 MG CAP.ER.24H PO SCH (08:10)
[2019-12-12] MEDS: CEFEPIME 2 GM in SODIUM CHLORIDE 0.9% 100 ML IVPB SCH ×2 (08:10→21:07)
--- NOTE | 2019-12-12 10:05 | P.PN ---
Progress Note - Text Progress Note Date: 12/12/19 The patient remains afebrile. He denies scrotal pain. His only discomfort is left chest and shoulder discomfort with deep inspiration. The wound is clean, with minimal seropurulent drainage. There is some evidence of granulation tissue. There is no necrotic tissue. The area of fluctuance on the right anterior scrotal wall is persistent, and therefore incision and drainage was performed. Although a cavity was identified, there was no purulence noted. Local wound care and IV antibiotics will be continued.
--- NOTE | 2019-12-12 10:12 | P.PCN ---
Date of Procedure: 12/12/19 Preoperative Diagnosis: Right scrotal necrotizing fasciitis Postoperative Diagnosis: Same Procedure(s) Performed: Incision and drainage, right scrotal abscess Anesthesia: local Surgeon: Mario Alberto Almonte Estimated Blood Loss (ml): 2 Pathology: none sent Condition: stable Disposition: PACU Indications for Procedure: The patient is a 54-year-old male who underwent right scrotal debridement for Shobha's gangrene on 12/05/2019. Cultures grew Pseudomonas, for which he is being treated with cefepime. He is also receiving local wound care. The dependent portion of the right scrotum was debrided, but there is a persistent area of fluctuance on the right anterior scrotal wall. In view of this, I have elected to proceed with incision and drainage. Operative Findings: Incision and drainage did indeed expose a cavity, but no purulence was noted. Description of Procedure: The patient was lying supine. The scrotum was prepped with Betadine solution. 1% lidocaine was injected subcutaneously over the area of fluctuance. A 15 blade scalpel was then used to make a 1 cm incision. This exposed a cavity which was approximately 2 cm deep. Minimal sanguinous drainage was noted. There was no purulence. The cavity was packed with half-inch iodoform gauze. The patient tolerated the procedure well.
[2019-12-12] MEDS: LACTATED RINGERS 1,000 ML IV SCH (10:21)
[2019-12-12] MEDS ORDERED: Magnesium Replacement Protocol 1 EACH MISC MISCELLANE PRN (10:22)
[2019-12-12] MEDS: MAGNESIUM SULFATE-D5W PMX 1 GM in DEXTROSE/WATER 1 100ML.BAG IVPB SCH ×3 (10:50→12:41)
[2019-12-12] MEDS: oxyCODONE-APAP 7.5-325MG 1 EACH TAB PO PRN ×2 (10:50→17:33)
[2019-12-12] MEDS: MORPHINE MISCELLANE SCH (11:47)
[2019-12-12] MEDS: ZOLPIDEM 10 MG TAB PO SCH (21:08)
--- NOTE | 2019-12-13 00:35 | PN ---
PROGRESS NOTE DATE OF SERVICE: 12/12/2019 This 54-year-old gentleman who was admitted with Shobha's gangrene had surgery again today by Dr. Almonte for debridement of the small abscess area in the right scrotum. No chest pain. No palpitations. No fever. PHYSICAL EXAMINATION: Alert and oriented x2. Pulse is 71, blood pressure 99/64, respiration 18, temperature 97.4, pulse ox 94% on 4 L. HEENT: Conjunctivae normal. NECK: No jugular venous distention. CARDIOVASCULAR: S1, S2 muffled. RESPIRATORY: Breath sounds diminished at the bases. No rhonchi, no crackles. ABDOMEN: Soft, nontender. LEGS: No edema, no swelling. NERVOUS SYSTEM: No focal deficits. EXAMINATION OF THE PERINEUM: Status post surgery. LABS: WBC 6.8, hemoglobin is 9.1, sodium is 136 and magnesium 1.4. ASSESSMENT: 1. Shobha's gangrene with possible sepsis, present on admission, status post surgical debridement of the right hemiscrotum secondary to Pseudomonas aeruginosa sensitive to cefepime. 2. Left lower lobe pneumonia possibly gram-negative, present on admission. 3. Change in mental status, acute on chronic metabolic encephalopathy. 4. History of recurrent esophageal stricture and recurrent ablation. 5. History of severe esophagitis with distal esophageal ulcer. 6. History of paraesophageal repair. 7. History of sleeve gastrectomy. 8. Hypertension. 9. Degenerative joint disease. 10.History of gout. 11.Idiopathic peripheral neuropathy. 12.Chronic back pain with pain pump. 13.Acute kidney injury acute tubular necrosis, sepsis, improving. 14.Hyponatremia. 15.Hypomagnesemia. 16.Anemia, normocytic anemia of chronic disease. 17.Increased WBC, improved. RECOMMENDATIONS AND DISCUSSION: In this 54-year-old gentleman who presented with multiple complex medical issues, we will monitor the patient closely. Continue the current medications, continue symptomatic treatment. Otherwise, continue with the antibiotics. Follow the cultures. Closely follow with multiple consultants including Surgery. Further recommendations to follow. MMODL / IJN: [id number] /
[2019-12-13] MEDS: metroNIDAZOLE 500 MG TAB PO SCH ×4 (00:37→20:24)
--- NOTE | 2019-12-13 07:10 | PN ---
PROGRESS NOTE DATE OF SERVICE: 12/12/2019 REASON FOR FOLLOW UP: Shobha's gangrene. INTERVAL HISTORY: Patient is currently afebrile. The patient did have drainage of another abscess on the right scrotal area at the bedside today. The patient tolerated the procedure. Denies any chest pain, shortness of breath or cough. No abdominal pain or diarrhea. PHYSICAL EXAMINATION: Blood pressure 91/58, pulse of 77. Temperature 98.2. He is 98% on 2 L nasal cannula. General description is a middle-aged male lying in bed in no distress. Respiratory system: Unlabored breathing. Clear to auscultation anteriorly. Heart S1, S2. Regular rate and rhythm. Abdomen soft, no tenderness. LABS: No new labs have been obtained today. DIAGNOSTIC IMPRESSION AND PLAN: Patient with Shobha's gangrene status post extensive debridement. Culture with Pseudomonas and anaerobes. Patient is covered with cefepime and Flagyl to continue. Will get a PICC line for outpatient IV antibiotic therapy. Local care was switched over to Aquacel Silver dressing. Continue supportive care. MMODL / IJN: [id number] /
[2019-12-13] MEDS: CEFEPIME 2 GM in SODIUM CHLORIDE 0.9% 100 ML IVPB SCH ×2 (07:48→20:23)
[2019-12-13] MEDS: FUROSEMIDE 10 MG/ML 4 ML VIAL IV SCH ×2 (07:49→20:25)
[2019-12-13] MEDS: PANTOPRAZOLE 40 MG TABLET PO SCH ×2 (07:49→20:24)
[2019-12-13] MEDS: FAMOTIDINE 20 MG/2 ML VIAL IV SCH ×2 (07:49→20:25)
[2019-12-13] MEDS: PREGABALIN 100 MG CAP PO SCH ×2 (07:49→20:25)
[2019-12-13] MEDS: ESCITALOPRAM 10 MG TAB PO SCH (07:50)
[2019-12-13] MEDS: oxyCODONE-APAP 7.5-325MG 1 EACH TAB PO PRN ×2 (07:50→20:24)
[2019-12-13] MEDS: SENNOSIDES-DOCUSATE SODIUM 1 EACH TAB PO SCH ×2 (07:51→20:24)
[2019-12-13] MEDS: HEPARIN SODIUM,PORCINE 5,000 UNIT/ML 1 ML VIAL SQ SCH ×2 (07:51→20:25)
[2019-12-13] MEDS: CYCLOBENZAPRINE 10 MG TAB PO SCH ×2 (07:51→20:23)
[2019-12-13] MEDS: LACOSAMIDE 50 MG TABLET PO SCH ×2 (07:51→20:24)
[2019-12-13] MEDS: TAMSULOSIN 0.4 MG CAP.ER.24H PO SCH (07:51)
[2019-12-13] MEDS: SERTRALINE 50 MG TAB PO SCH (07:51)
[2019-12-13] MEDS: ALLOPURINOL 300 MG TAB PO SCH (07:51)
[2019-12-13] MEDS: SUCRALFATE 1 GM TAB PO SCH ×2 (07:51→20:24)
[2019-12-13] MEDS ORDERED: ERGOCALCIFEROL 50,000 UNIT CAP PO SCH (09:00)
[2019-12-13] MEDS: LACTATED RINGERS 1,000 ML IV SCH (11:19)
[2019-12-13] MEDS: MORPHINE MISCELLANE SCH (11:19)
--- NOTE | 2019-12-13 17:05 | P.PN ---
Progress Note - Text Progress Note Date: 12/13/19 The patient is afebrile. He has minimal scrotal pain except when his scrotal dressing is changed. On examination there is no evidence of fluctuance. There is mild skin edema but this appears to be improving. He will be continued on his current antibiotics and dressing changes.
--- NOTE | 2019-12-13 17:35 | PN ---
PROGRESS NOTE DATE OF SERVICE: 12/13/2019 This 54-year-old gentleman who was admitted with Shobha gangrene is being closely monitored. The patient had incision and drainage. No chest pain. No palpitations. No fever. PHYSICAL EXAMINATION: Alert and oriented x3. Pulse 69, blood pressure 89/59, respirations 16, temperature 98 degrees, pulse ox 94% on 2 L. HEENT: Conjunctivae normal. NECK: No jugular venous distention. CARDIOVASCULAR SYSTEM: S1, S2 muffled. RESPIRATORY SYSTEM: Breath sounds diminished at the bases. No rhonchi. No crackles. ABDOMEN: Soft, non-tender. LEGS: No edema. No swelling. NERVOUS SYSTEM: No focal deficit. LABS: Hemoglobin 9.1. Sodium 136. Magnesium 1.6 today. ASSESSMENT: 1. 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 2. Left lower lobe pneumonia, possibly Gram-negative, present on admission. 3. Change in mental status, acute on chronic metabolic encephalopathy. 4. History of recurrent esophageal stricture and recurrent ablation. 5. History of severe esophagitis. 6. History of distal esophageal ulcer. 7. History of paraesophageal repair. 8. History of sleeve gastrectomy. 9. Gait dysfunction. 10.Hypertension. 11.Degenerative joint disease. 12.Relative hypotension. 13.History of gout. 14.Idiopathic peripheral neuropathy. 15.Chronic back pain with pain pump. 16.Acute kidney injury with acute tubular necrosis, sepsis, improving. 17.Hyponatremia. 18.Hypomagnesemia. 19.Anemia, normocytic; anemia of chronic disease. 20.Increased white count, improved. RECOMMENDATIONS AND DISCUSSION: I recommend to continue current medications, continue with the monitoring, symptomatic treatment. Otherwise at this time I would recommend continuing with the antibiotics. PT/OT evaluation. Possible ECF rehab. Possible PICC line. Closely follow with Urology. Prognosis guarded because of multiple complex medical issues. Will adjust the medications and further recommendations to follow. I would also recommend an 8 a.m. cortisol level. Prognosis guarded. Further recommendations to follow. MMODL / IJN: [id number] /
[2019-12-13] MEDS: ZOLPIDEM 10 MG TAB PO SCH (20:24)
--- NOTE | 2019-12-13 20:31 | PN ---
PROGRESS NOTE DATE OF SERVICE: 12/13/2019 REASON FOR FOLLOWUP: Shobha gangrene. INTERVAL HISTORY: The patient is currently afebrile, has been breathing comfortably. The patient denies having any chest pain or shortness of breath or cough. No abdominal pain or any worsening pain to the right scrotal area. PHYSICAL EXAMINATION: Blood pressure 89/59 with a pulse of 59, temperature 98. He is 95% on 2 L nasal cannula. General description is a middle-aged male lying in bed in no distress. RESPIRATORY SYSTEM: Unlabored breathing. Clear to auscultation anteriorly. HEART: S1, S2. Regular rate and rhythm. ABDOMEN: Soft. No tenderness. LABS: No new labs have been obtained today. DIAGNOSTIC IMPRESSION AND PLAN: Patient with right scrotal Shobha gangrene, status post extensive debridement. Culture with Pseudomonas and anaerobes. Patient is covered with cefepime and Flagyl; to continue. Local wound care with dry Aquacel Silver dressing. Monitor clinical course closely. MMODL / IJN: [id number] /
[2019-12-14] MEDS: oxyCODONE-APAP 7.5-325MG 1 EACH TAB PO PRN ×2 (09:58→21:02)
[2019-12-14] MEDS: LACOSAMIDE 50 MG TABLET PO SCH ×2 (09:59→20:55)
[2019-12-14] MEDS: CYCLOBENZAPRINE 10 MG TAB PO SCH ×2 (09:59→21:02)
[2019-12-14] MEDS: TAMSULOSIN 0.4 MG CAP.ER.24H PO SCH (09:59)
[2019-12-14] MEDS: SUCRALFATE 1 GM TAB PO SCH ×2 (09:59→21:01)
[2019-12-14] MEDS: PREGABALIN 100 MG CAP PO SCH ×2 (09:59→20:55)
[2019-12-14] MEDS: metroNIDAZOLE 500 MG TAB PO SCH ×3 (10:00→21:05)
[2019-12-14] MEDS: ESCITALOPRAM 10 MG TAB PO SCH (10:00)
[2019-12-14] MEDS: SERTRALINE 50 MG TAB PO SCH (10:00)
[2019-12-14] MEDS: PANTOPRAZOLE 40 MG TABLET PO SCH ×2 (10:00→21:02)
[2019-12-14] MEDS: ALLOPURINOL 300 MG TAB PO SCH (10:00)
[2019-12-14] MEDS: SENNOSIDES-DOCUSATE SODIUM 1 EACH TAB PO SCH ×2 (10:00→21:01)
[2019-12-14] MEDS: FAMOTIDINE 20 MG/2 ML VIAL IV SCH ×2 (10:01→21:02)
[2019-12-14] MEDS: HEPARIN SODIUM,PORCINE 5,000 UNIT/ML 1 ML VIAL SQ SCH ×2 (10:01→21:02)
[2019-12-14] MEDS: FUROSEMIDE 10 MG/ML 4 ML VIAL IV SCH ×2 (10:01→21:02)
[2019-12-14] MEDS: CEFEPIME 2 GM in SODIUM CHLORIDE 0.9% 100 ML IVPB SCH ×2 (10:02→20:54)
--- NOTE | 2019-12-14 12:56 | P.PN ---
Subjective Progress Note Date: 12/14/19 Principal diagnosis: scrotal abscess No acute overnight even he is afebrile. He has minimal scrotal pain except when his scrotal dressing is changed. no additional areas of fluctance appreciated Objective - Vital Signs Vital signs: Vital Signs Temp 98.1 F 12/14/19 07:00 Pulse 70 12/14/19 07:00 Resp 17 12/14/19 07:00 BP 110/73 12/14/19 07:00 Pulse Ox 98 12/14/19 07:00 Intake & Output 12/13/19 12/14/19 12/14/19 18:59 06:59 18:59 Intake Total 1080 420 Output Total 1000 2400 Balance 80 -1979 Weight 114.8 kg Intake: Intake, IV Titration 220 Amount Cefepime 2 gm In Sodium 100 Chloride 0.9% 100 ml @ 200 mls/hr IVPB Q12HR [facility] Rx#:[id number] Lactated Ringers 1,000 ml 120 @ 10 mls/hr IV .Q24H [facility] Rx#:[id number] Oral 1080 200 Output: Urine 1000 2400 Other: Voiding Method Indwelling Catheter Indwelling Catheter Indwelling Catheter # Voids 0 - Gastrointestinal General gastrointestinal: Present: soft. Absent: distended - Genitourinary Genitourinary Comment(s): no additional fluctance appreciated area along the right cord is indurated, non tender, no fluctance appreciated no cellulitis noticed - Labs CBC & Chem 7: 12/11/19 07:30 12/11/19 07:30 Assessment and Plan Assessment: 54 yo male admitted to the hospital with pneumonia. Urology is consulted for scrotal edema and cellulitis. Scrotal U/S demonstrated bilateral orchitis. CT showed subcutaneous air concerning for Shobha's gangrene , S/P surgical debridment of scrotum. He's afebrile, white count within normal limits. wound is clean no fluctuance or cellulitis appreciated Plan: -Continue antibiotics, will f/u on ID recs and wound cultures -Daily dressing change -TOV prior to discharge -ok for discharge to [facility] from urology standpoint, can f/u 2 weeks in clinic
--- NOTE | 2019-12-14 13:19 | US ---
EXAMINATION TYPE: US venous doppler duplex LE RT DATE OF EXAM: 12/14/2019 12:57 PM COMPARISON: Prior bilateral venous ultrasound October 20, 2014 CLINICAL HISTORY: rule out DVT. right leg swelling. Hx recent scrotal surgery. SIDE PERFORMED: Right TECHNIQUE: The lower extremity deep venous system is examined utilizing real time linear array sonog can with graded compression, doppler sonography and color-flow sonography. VESSELS IMAGED: External Iliac Vein (EIV) Common Femoral Vein Deep Femoral Vein Greater Saphenous Vein * Femoral Vein Popliteal Vein Small Saphenous Vein * Proximal Calf Veins (* superficial vessels) Right Leg: Negative for DVT. Limited visualization of EIV and GSV due to patient tolerance. Grayscale, color doppler, spectral doppler imaging performed of the deep veins of the right lower ext remity. There is normal flow, compressibility, vascular waveforms. Slightly suboptimal study as patient unable to tolerate compression at some levels. [id number] subcutaneous edema is seen distally. IMPRESSION: No ultrasound evidence for acute DVT in the right lower extremity.
--- NOTE | 2019-12-14 13:29 | PN ---
PROGRESS NOTE DATE OF SERVICE: 12/14/2019 REASON FOR FOLLOW UP: Shobha's gangrene. INTERVAL HISTORY: Patient is currently afebrile. The patient is breathing comfortably. He did complain of some pain to the left lower chest area especially with movement of the chest. The patient denies having any shortness of breath. No nausea, vomiting. No abdominal pain. No diarrhea. PHYSICAL EXAMINATION: Blood pressure 110/73 with a pulse of 72, temperature 98.1. He is 98% on 2 L nasal cannula. General description is a middle-aged male lying in bed in no distress. Respiratory system: Unlabored breathing, clear to auscultation anteriorly. Heart S1, S2. Regular rate and rhythm. Abdomen: Soft, no tenderness. No new labs have been obtained today. DIAGNOSTIC IMPRESSION AND PLAN: Patient with Shobha's gangrene status post surgical drainage. Culture with Pseudomonas and anaerobic gram-negative. Patient is covered with cefepime 2 g . PLAN: Continue these antibiotics for at least 2-3 weeks. Local wound care with dry Aquacel Silver dressing. Continue supportive care. MMODL / IJN: [id number] /
[2019-12-14] MEDS: LACTATED RINGERS 1,000 ML IV SCH (14:22)
--- NOTE | 2019-12-14 15:12 | XR ---
EXAMINATION TYPE: XR chest 1V portable DATE OF EXAM: 12/14/2019 CLINICAL HISTORY: Difficulty breathing progress study. TECHNIQUE: Single AP portable upright view of the chest is obtained. COMPARISON: Chest x-ray from 5 days earlier FINDINGS: Some improved inspiration on current study with persistent right basilar linear scarring a nd/or atelectasis. Improved aeration left lung base. Patient remains rotated to the right. Cardiac si lhouette size remains within normal limits. Postsurgical changes near cervicothoracic junction redemo nstrated. Postsurgical change left femoral head level redemonstrated. High riding femoral head sugges ts chronic rotator cuff tears bilaterally. IMPRESSION: Improved inspiration with improved but persistent right basilar linear scarring and/or at electasis. No new focal infiltrate identified.
--- NOTE | 2019-12-14 16:00 | P.PN ---
Subjective Progress Note Date: 12/14/19 Principal diagnosis: This is a 54-year-old male who was recently admitted with carson gangrene and is being closely monitored. Multiple medical consultations following. Patient recently underwent repeat incision and drainage of the scrotal abscess with urology. Continue with local wound care and dressing changes to the scrotum. Patient is maintained on IV antibiotics in the form of cefepime and Flagyl. Infectious disease is following. Order placed for PICC line. Patient will be requiring outpatient IV antibiotic therapy and continued PT/OT therapy at in [facility]. Case management and social work following. Patient had a chest x-ray today showing improved inspiration with improved but persistent right basilar linear scarring and/or atelectasis with no new focal infiltrates identified. Patient also underwent a venous Doppler study of the right lower extremity which was negative for DVT. Review of systems: Constitutional: No reports of fevers or chills, or fatigue Cardiovascular: No reports of chest pain or palpitations Respiratory: No reports of shortness of breath and cough GI: No reports of nausea, vomiting, reports of diarrhea : No reports of dysuria or retention Neurovascular: reports weakness, no reports of numbness Active Medications Acetaminophen (Tylenol Tab) 500 mg PO Q4HR PRN PRN Reason: Fever and/ or MILD Pain Last Admin: 12/04/19 18:58 Dose: 500 mg Documented by: Allopurinol (Zyloprim) 300 mg PO DAILY [facility] Last Admin: 12/14/19 10:00 Dose: 300 mg Documented by: Cyclobenzaprine HCl (Flexeril) 10 mg PO BID [facility] Last Admin: 12/14/19 09:59 Dose: 10 mg Documented by: Ergocalciferol (Vitamin D2) 50,000 unit PO Mo@0900 [facility] Last Admin: 12/13/19 07:50 Dose: 50,000 unit Documented by: Escitalopram Oxalate (Lexapro) 10 mg PO QAM [facility] Last Admin: 12/14/19 10:00 Dose: 10 mg Documented by: Famotidine (Pepcid) 20 mg IV Q12HR [facility] Last Admin: 12/14/19 10:01 Dose: 20 mg Documented by: Furosemide (Lasix) 40 mg IV BID [facility] Last Admin: 12/14/19 10:01 Dose: 40 mg Documented by: Heparin Sodium (Porcine) (Heparin) 5,000 unit SQ Q12HR [facility] Last Admin: 12/14/19 10:01 Dose: 5,000 unit Documented by: Lactated Ringer's (Lactated Ringers) 1,000 mls @ 10 mls/hr IV .Q24H [facility] Last Admin: 12/14/19 14:22 Dose: Not Given Documented by: Cefepime HCl 2 gm/ Sodium (Chloride) 100 mls @ 200 mls/hr IVPB Q12HR [facility] Last Admin: 12/14/19 10:02 Dose: 200 mls/hr Documented by: Lacosamide (Vimpat) 50 mg PO BID [facility] Last Admin: 12/14/19 09:59 Dose: 50 mg Documented by: Metronidazole (Flagyl) 500 mg PO TID [facility] Last Admin: 12/14/19 10:00 Dose: 500 mg Documented by: Miscellaneous Information (Pneumonia Protocol Utilized) 1 each PO ONCE PRN PRN Reason: Per Protocol Miscellaneous Information (Magnesium Per Protocol) 1 each MISCELLANE DAILY PRN; Protocol PRN Reason: Per Protocol Miscellaneous Information (Magnesium Per Protocol) 1 each MISCELLANE DAILY PRN; Protocol PRN Reason: Per Protocol Miscellaneous Information (Potassium Per Protocol) 1 each MISCELLANE DAILY PRN; Protocol PRN Reason: Per Protocol Miscellaneous Information (Magnesium Per Protocol) 1 each MISCELLANE DAILY PRN; Protocol PRN Reason: Per Protocol Morphine Sulfate (Morphine Sulfate (Inj)) 2 mg IVP Q4H PRN PRN Reason: Pain/Discomfort Last Admin: 12/13/19 10:18 Dose: 2 mg Documented by: Non-Formulary Medication (Morphine Pain Pump) 1 mg MISCELLANE CONTINUOUS [facility] Last Admin: 12/13/19 11:19 Dose: Not Given Documented by: Oxycodone/Acetaminophen (Percocet 7.5-325) 1 each PO BID PRN PRN Reason: SEVERE Pain Last Admin: 12/14/19 09:58 Dose: 1 each Documented by: Oxycodone/Acetaminophen (Percocet 7.5-325) 1 each PO ONCE PRN PRN Reason: Pain Pantoprazole Sodium (Protonix) 40 mg PO BID [facility] Last Admin: 12/14/19 10:00 Dose: 40 mg Documented by: Polyethylene Glycol (Miralax) 17 gm PO DAILY PRN PRN Reason: Constipation Pregabalin (Lyrica) 300 mg PO BID [facility] Last Admin: 12/14/19 09:59 Dose: 300 mg Documented by: Senna/Docusate Sodium (Senokot-S) 1 each PO BID [facility] Last Admin: 12/14/19 10:00 Dose: 1 each Documented by: Sertraline HCl (Zoloft) 50 mg PO DAILY [facility] Last Admin: 12/14/19 10:00 Dose: 50 mg Documented by: Sucralfate (Carafate) 1 gm PO BID [facility] Last Admin: 12/14/19 09:59 Dose: 1 gm Documented by: Tamsulosin HCl (Flomax) 0.4 mg PO DAILY [facility] Last Admin: 12/14/19 09:59 Dose: 0.4 mg Documented by: Zolpidem Tartrate (Ambien) 10 mg PO HS [facility] Last Admin: 12/13/19 20:24 Dose: 10 mg Documented by: Objective - Vital Signs Vital signs: Vital Signs Temp 97.2 F L 12/14/19 15:00 Pulse 76 12/14/19 15:00 Resp 16 12/14/19 15:00 BP 88/55 12/14/19 15:00 Pulse Ox 97 12/14/19 15:00 Intake & Output 12/13/19 12/14/19 12/14/19 18:59 06:59 18:59 Intake Total 1080 420 540 Output Total 1000 2400 1000 Balance 80 1980 -460 Weight 114.8 kg Intake: Intake, IV Titration 220 Amount Cefepime 2 gm In Sodium 100 Chloride 0.9% 100 ml @ 200 mls/hr IVPB Q12HR [facility] Rx#:[id number] Lactated Ringers 1,000 ml 120 @ 10 mls/hr IV .Q24H [facility] Rx#:[id number] Oral 1080 200 540 Output: Urine 1000 2400 1000 Other: Voiding Method Indwelling Catheter Indwelling Catheter Indwelling Catheter # Voids 0 # Bowel Movements 1 - Exam Gen: This is a 54-year-old male lying in bed, awake, alert and oriented 3, well-developed, well-nourished. Temp is 98.1F, pulse is 70, respirations are 17, blood pressure is 110/73, oxygen saturation is 98% on 2 L via nasal cannula. HEENT: Head is atraumatic, normocephalic. Pupils equal, round. Sclerae is anicteric. NECK: Supple. No JVD. No lymphadenopathy. No thyromegaly. LUNGS: Diminished breath sounds at the bases with no rhonchi or crackles noted. No intercostal retractions. HEART: S1, S2 are muffled ABDOMEN: Soft. Bowel sounds are present. No masses. Mild tenderness noted on p alpation. EXTREMITIES: No pedal edema. right calf tenderness. NEUROLOGICAL: Patient is awake, alert and oriented x3. Cranial nerves 2 through 12 are grossly intact. - Labs CBC & Chem 7: 12/11/19 07:30 12/11/19 07:30 Assessment and Plan Assessment: Carson gangrene with possible sepsis, present on admission, status post surgical debridement of the right hemiscrotum secondary to pseudomonas aeruginosa sensitive to cefepime Left lower lobe pneumonia, possibly gram-negative, present on admission Change in mental status, acute on chronic metabolic encephalopathy History of recurrent esophageal stricture and recurrent ablation History of a severe esophagitis History of distal esophageal ulcer History of paraesophageal repair History of sleeve gastrectomy Gait dysfunction Hypertension Degenerative joint disease Relative hypotension History of gout Idiopathic peripheral neuropathy Chronic back pain with pain pump Acute kidney injury with acute tubular necrosis, sepsis, improving Hyponatremia Hypomagnesemia Anemia, normocytic, anemia of chronic disease Increased white blood count, improved Full code Recommendations and discussion: Recommend to continue current medications, management, and symptomatic tr eatment. Continue with IV antibiotics and infectious disease is following. PT/OT to evaluate the patient as patient continues to be weak and may need possible ECF rehab. Case management and social work following for possible placement. Multiple medical consultations following including urology. Due to multiple complex medical issues, prognosis is guarded. Further recommendations to follow. Possible discharge in 24-48 hours.
[2019-12-14] MEDS: ACETAMINOPHEN TAB 500 MG TAB PO PRN (16:12)
[2019-12-14] MEDS: MORPHINE MISCELLANE SCH (16:17)
[2019-12-14] MEDS: ZOLPIDEM 10 MG TAB PO SCH (21:01)
[2019-12-15] MEDS: PREGABALIN 100 MG CAP PO SCH (07:20)
[2019-12-15] MEDS: CYCLOBENZAPRINE 10 MG TAB PO SCH (07:20)
[2019-12-15] MEDS: TAMSULOSIN 0.4 MG CAP.ER.24H PO SCH (07:21)
[2019-12-15] MEDS: HEPARIN SODIUM,PORCINE 5,000 UNIT/ML 1 ML VIAL SQ SCH (07:21)
[2019-12-15] MEDS: LACOSAMIDE 50 MG TABLET PO SCH (07:21)
[2019-12-15] MEDS: SERTRALINE 50 MG TAB PO SCH (07:21)
[2019-12-15] MEDS: SENNOSIDES-DOCUSATE SODIUM 1 EACH TAB PO SCH (07:21)
[2019-12-15] MEDS: PANTOPRAZOLE 40 MG TABLET PO SCH (07:21)
[2019-12-15] MEDS: ALLOPURINOL 300 MG TAB PO SCH (07:21)
[2019-12-15] MEDS: CEFEPIME 2 GM in SODIUM CHLORIDE 0.9% 100 ML IVPB SCH (07:21)
[2019-12-15] MEDS: ESCITALOPRAM 10 MG TAB PO SCH (07:21)
[2019-12-15] MEDS: FUROSEMIDE 10 MG/ML 4 ML VIAL IV SCH (07:22)
[2019-12-15] MEDS: FAMOTIDINE 20 MG/2 ML VIAL IV SCH (07:22)
[2019-12-15] MEDS: metroNIDAZOLE 500 MG TAB PO SCH (07:23)
[2019-12-15] MEDS: SUCRALFATE 1 GM TAB PO SCH (07:23)
[2019-12-15 08:16] LABS: Anisocytosis Slight; Basophils % (A) 1 %; Eosinophils # (A) 0.3 k/uL (0-0.7); Eosinophils % (A) 5 %; HCT 36.9 % (39.0-53.0); HGB 10.3 gm/dL (13.0-17.5); Hypochromasia Marked; Lymphocytes # (A) 1.7 k/uL (1.0-4.8); Lymphocytes % (A) 30 %; MCH 25.3 pg (25.0-35.0); MCHC 27.9 g/dL (31.0-37.0); MCV 90.8 fL (80.0-100.0); Mean Platelet Volume 7.4; Monocytes # (A) 0.4 k/uL (0-1.0); Monocytes % (A) 8 %; Neutrophils % (A) 55 %; Platelet Count 585 k/uL (150-450); RBC 4.07 m/uL (4.30-5.90); RDW 16.7 % (11.5-15.5); WBC 5.5 k/uL (3.8-10.6)
[2019-12-15 08:29] LABS: African American GFR (CKD) >90 (>60 ml/min/1.73 sqM); Blood Urea Nitrogen 18 mg/dL (9-20); Calcium 8.5 mg/dL (8.4-10.2); Chloride 86 mmol/L (98-107); Glucose 86 mg/dL (74-99); Magnesium 1.5 mg/dL (1.6-2.3); Non-African American GFR(CKD) >90 (>60 ml/min/1.73 sqM); Potassium 4.7 mmol/L (3.5-5.1); Sodium 138 mmol/L (137-145)
[2019-12-15 08:36] LABS: Anion Gap 6 mmol/L
[2019-12-15 08:54] LABS: Carbon Dioxide 46 mmol/L (22-30)
[2019-12-15 09:58] VITALS: BMI 30.7
[2019-12-15] MEDS: MAGNESIUM SULFATE-D5W PMX 1 GM in DEXTROSE/WATER 1 100ML.BAG IVPB SCH ×2 (10:34→11:54)
[2019-12-15] MEDS: MORPHINE MISCELLANE SCH (13:00)
[2019-12-15] MEDS: LACTATED RINGERS 1,000 ML IV SCH (13:01)
--- NOTE | 2019-12-15 13:17 | P.DS ---
Providers Date of admission: 12/01/19 13:48 Expected date of discharge: 12/15/19 Attending physician: Chavez Pedraza Consults: 12/04/19 12:28 Consult Physician Routine Consulting Provider: Jose Manuel Cunha Consult Reason/Comments: acute painful scrotal swelling Do you want consulting provider notified?: Yes 12/05/19 17:55 Consult Physician Routine Consulting Provider: Navdeep Piedra Consult Reason/Comments: Acute severe epididymal orchitis Do you want consulting provider notified?: Yes Primary care physician: Eric Ang [facility] Course: Final diagnosis Carson gangrene with possible sepsis, present on admission, status post surgical debridement of the right hemiscrotum secondary to pseudomonas aeruginosa sensitive to cefepime Left lower lobe pneumonia, possibly gram-negative, present on admission Change in mental status, acute on chronic metabolic encephalopathy History of recurrent esophageal stricture and recurrent ablation History of a severe esophagitis History of distal esophageal ulcer History of paraesophageal repair History of sleeve gastrectomy Gait dysfunction Hypertension Degenerative joint disease Relative hypotension History of gout Idiopathic peripheral neuropathy Chronic back pain with pain pump Acute kidney injury with acute tubular necrosis, sepsis, improving Hyponatremia Hypomagnesemia Anemia, normocytic, anemia of chronic disease Increased white blood count, improved Full code Discharge disposition Patient is being discharged in a stable condition with guarded prognosis to [facility] for continued PT/OT therapy. Patient will continue with IV antibiotics in the form of cefepime twice daily along with oral Flagyl per infectious disease. Patient will be following up with urology in the outpatient setting along with primary care provider Dr. Alexandrea Ang once discharged. Total time taken is greater than 35 minutes. History of present illness This is a 54-year-old male who was recently admitted with carson gangrene and was being closely monitored. Multiple medical consultations following. Patient underwent incision and drainage with urology of the scrotal abscess and will continue local wound care to the area along with IV antibiotics per infectious disease recommendations. Patient did receive a midline for continued IV antibiotic therapy. Patient's magnesium was found to be 1.6 and was given a dose of magnesium oxide and scripts provided for repeat labs in 2-3 days. Patient was evaluated by PT/OT recommending subacute rehab for strength and mobility and will continue in the [facility] with PT/OT therapy. Patient instructed to follow-up with urology in the outpatient setting upon discharge. Currently no reports of chest pain, worsening shortness of breath, or palpitations. Patient is afebrile. No reports of nausea or vomiting and patient is tolerating diet. Patient will be discharged to [facility] today. Extremely Guarded prognosis. On exam vital signs are stable. Temp is 97.9F, pulse is 70, respirations are 18, blood pressure is 93/57, oxygen saturation is 98% on 2 L via nasal cannula. Cardio S1, S2 are muffled. Respiratory system shows diminished breath sounds at the bases with a few scattered rhonchi noted. Abdomen is soft and nontender. Nervous system shows mild diffuse weakness. Please refer to medication reconciliation sheet for a list of medications. Patient Condition at Discharge: Stable Plan - Discharge Summary New Discharge Prescriptions: New Tamsulosin [Flomax] 0.4 mg PO DAILY cap.er.24h Polyethylene Glycol 3350 [Miralax] 17 gm PO DAILY PRN powd.pack PRN Reason: Constipation Sennosides-Docusate Sodium [Senokot-S] 1 each PO BID tab Acetaminophen Tab [Tylenol] 500 mg PO Q4HR PRN tab PRN Reason: Fever and/ or MILD Pain metroNIDAZOLE [Flagyl] 500 mg PO Q8HR #42 tab Cefepime HCl [Maxipime] 2 gm IV Q12H #28 vial Continue Escitalopram [Lexapro] 10 mg PO QAM Cyclobenzaprine [Flexeril] 10 mg PO BID Allopurinol [Zyloprim] 300 mg PO DAILY Lacosamide [Vimpat] 50 mg PO BID Ergocalciferol (Vitamin D2) [Vitamin D2] 50,000 unit PO MO Pregabalin [Lyrica] 300 mg PO BID Sucralfate [Carafate] 1 gm PO BID #60 tablet Omeprazole 40 mg PO BID #60 cap Sertraline [Zoloft] 50 mg PO DAILY Zolpidem Tartrate [Ambien] 10 mg PO HS #4 tab oxyCODONE-APAP 7.5-325MG [Percocet 7.5-325 mg] 1 tab PO DAILY PRN #10 tab PRN Reason: Pain Changed Furosemide [Lasix] 40 mg PO DAILY #0 Discontinued Morphine Pain Pump 1 mg INTRATHECA CONTINUOUS Metoprolol Tartrate [Lopressor] 12.5 mg PO BID #60 tab Lisinopril [Zestril] 2.5 mg PO DAILY Ibuprofen 800 mg PO TID PRN PRN Reason: Pain Discharge Medication List Allopurinol [Zyloprim] 300 mg PO DAILY 06/04/16 [History] Cyclobenzaprine [Flexeril] 10 mg PO BID 06/04/16 [History] Escitalopram [Lexapro] 10 mg PO QAM 06/04/16 [History] Lacosamide [Vimpat] 50 mg PO BID 03/25/18 [History] Ergocalciferol (Vitamin D2) [Vitamin D2] 50,000 unit PO MO 06/19/18 [History] Pregabalin [Lyrica] 300 mg PO BID 07/17/18 [History] Omeprazole 40 mg PO BID #60 cap 07/06/19 [Rx] Sucralfate [Carafate] 1 gm PO BID #60 tablet 07/06/19 [Rx] Sertraline [Zoloft] 50 mg PO DAILY 07/20/19 [History] Acetaminophen Tab [Tylenol] 500 mg PO Q4HR PRN tab 12/15/19 [Rx] Cefepime HCl [Maxipime] 2 gm IV Q12H #28 vial 12/15/19 [Rx] Furosemide [Lasix] 40 mg PO DAILY #0 12/15/19 [Rx] Polyethylene Glycol 3350 [Miralax] 17 gm PO DAILY PRN powd.pack 12/15/19 [Rx] Sennosides-Docusate Sodium [Senokot-S] 1 each PO BID tab 12/15/19 [Rx] Tamsulosin [Flomax] 0.4 mg PO DAILY cap.er.24h 12/15/19 [Rx] Zolpidem Tartrate [Ambien] 10 mg PO HS #4 tab 12/15/19 [Rx] metroNIDAZOLE [Flagyl] 500 mg PO Q8HR #42 tab 12/15/19 [Rx] oxyCODONE-APAP 7.5-325MG [Percocet 7.5-325 mg] 1 tab PO DAILY PRN #10 tab 12/15/19 [Rx] Follow up Appointment(s)/Referral(s): Jose Manuel Cunha MD [STAFF PHYSICIAN] - 1 Week Eric Ang DO [Primary Care Provider] - 1-2 days [facility], [NON-STAFF] - As Needed Ambulatory/Diagnostic Orders: Basic Metabolic Panel [LAB.AMB] Time Frame: 2 Days, Location: None Selected Magnesium [LAB.AMB] Time Frame: 2 Days, Location: None Selected Activity/Diet/Wound Care/Special Instructions: Patient is going to [facility] [place] Activity as tolerated Continue with physical therapy Continue with IV antibiotics per infectious disease Continue with local wound care to the scrotal area Follow-up with urology in the outpatient setting in 2 weeks Continue heart healthy diet Repeat labs in 2-3 days [facility] has rubber cane tips for $4.40. Bring your cane to make sure they fit. [facility] is located in [facility] pharmacy entrance. -follow-up with wound service at the [facility] We recommend close monitoring of this metabolic panel (BMP ) while patient is on Lasix, also monitoring of complete cell count (CBC) Discharge Disposition: TRANSFER TO SNF/ECF
[2019-12-15 14:31] VITALS: BP 102/68; PULSE 71; RESP 17; TEMP 98.1
--- NOTE | 2019-12-15 16:19 | PN ---
PROGRESS NOTE REASON FOR FOLLOWUP: Shobha gangrene. INTERVAL HISTORY: The patient is currently afebrile, has been breathing comfortably. Denies having any chest pain or cough. No nausea or vomiting. No abdominal pain or pain to the scrotal area. PHYSICAL EXAMINATION: Blood pressure 142/77 with a pulse of 70, temperature of 97.9. He is 98% on 2 L nasal cannula. General description is a middle-aged male lying in bed in no distress. RESPIRATORY SYSTEM: Unlabored breathing. Clear to auscultation anteriorly. HEART: S1, S2. Regular rate and rhythm. ABDOMEN: Soft. No tenderness. Scrotal area currently with no significant drainage. LABS: Hemoglobin 10, white count 5.5, creatinine 0.74. DIAGNOSTIC IMPRESSION AND PLAN: Patient with Shobha gangrene, status post surgical debridement. Culture with pseudomonas and anaerobes. Patient is covered with cefepime and Flagyl; to continue for another 2 weeks. Local wound care with Aquacel Silver dressing. Close outpatient followup. MMODL / IJN: [id number] /
== END 2019-12-15 17:35 | DRG 853 ==
LOC: EC 10:42 → 4SSUR 13:48
PROVIDERS: ADMIT Hospitalist; ATTEND Hospitalist
PROC: 0TJB8ZZ Inspection of Bladder, Via Natural or Artificial Opening Endoscopic (ICD-10-PCS; principal; 2019-12-05 17:00)
PROC: 0JBB0ZZ Excision of Perineum Subcutaneous Tissue and Fascia, Open Approach (ICD-10-PCS; principal; 2019-12-05 17:00)
PROC: 05HF33Z Insertion of Infusion Device into Left Cephalic Vein, Percutaneous Approach (ICD-10-PCS; 2019-12-07)
PROC: 0J9B3ZZ Drainage of Perineum Subcutaneous Tissue and Fascia, Percutaneous Approach (ICD-10-PCS; 2019-12-12)
PROC: 05HB33Z Insertion of Infusion Device into Right Basilic Vein, Percutaneous Approach (ICD-10-PCS; 2019-12-13)
DX: A41.52 Sepsis due to Pseudomonas (principal); J15.6 Pneumonia due to other Gram-negative bacteria; N17.0 Acute kidney failure with tubular necrosis; M72.6 Necrotizing fasciitis; G93.41 Metabolic encephalopathy; J98.11 Atelectasis; K22.10 Ulcer of esophagus without bleeding; E87.1 Hypo-osmolality and hyponatremia; Z20.828 Contact with and (suspected) exposure to other viral communicable diseases; E11.42 Type 2 diabetes mellitus with diabetic polyneuropathy; K22.2 Esophageal obstruction; R65.20 Severe sepsis without septic shock; M19.91 Primary osteoarthritis, unspecified site; I10 Essential (primary) hypertension; M10.9 Gout, unspecified; F41.9 Anxiety disorder, unspecified; F32.9 Major depressive disorder, single episode, unspecified; G89.29 Other chronic pain; M54.9 Dorsalgia, unspecified; R33.9 Retention of urine, unspecified; N49.3 Fournier gangrene; B96.5 Pseudomonas (aeruginosa) (mallei) (pseudomallei) as the cause of diseases classified elsewhere; K59.00 Constipation, unspecified; E83.42 Hypomagnesemia; D63.8 Anemia in other chronic diseases classified elsewhere; R26.9 Unspecified abnormalities of gait and mobility; K21.0 Gastro-esophageal reflux disease with esophagitis; Z71.3 Dietary counseling and surveillance; Z79.899 Other long term (current) drug therapy; Z79.891 Long term (current) use of opiate analgesic; Z86.73 Personal history of transient ischemic attack (TIA), and cerebral infarction without residual deficits; Z98.84 Bariatric surgery status; Z98.1 Arthrodesis status; Z96.643 Presence of artificial hip joint, bilateral; Z96.612 Presence of left artificial shoulder joint; Z87.01 Personal history of pneumonia (recurrent); Z98.890 Other specified postprocedural states; Z87.891 Personal history of nicotine dependence; Z87.19 Personal history of other diseases of the digestive system; Z86.14 Personal history of Methicillin resistant Staphylococcus aureus infection; Z82.49 Family history of ischemic heart disease and other diseases of the circulatory system; Z80.9 Family history of malignant neoplasm, unspecified
CPT/HCPCS: 36410; 36415; 71045; 71046; 72193; 76870; 76937; 80048; 80053; 80202; 81001; 82533; 83605; 83735; 84145; 85025; 85027; 85610; 85730; 87040; 87070; 87075; 87077; 87186; 87205; 93975; 96360; 99291

== ENCOUNTER 2020-01-08 13:27 | Inpatient (IN) | payer MEDICARE, OTHER ==
--- NOTE | 2020-01-08 13:44 | ED ---
General Adult HPI - General Chief complaint: Abdominal Pain Stated complaint: Abdominal pain Time Seen by Provider: 01/08/20 13:42 Source: patient Mode of arrival: ambulatory Limitations: no limitations - History of Present Illness Initial comments: Patient presents the ED with his for evaluation. Patient states that he has had diffuse, crampy abdominal pain and nausea/vomiting since about 3 AM this morning. Patient admits to having moderate generalized abdominal pain currently. Patient states that his last bowel movement was about 2 days ago, and he states that it was normal at that time. Patient denies trauma or injury, fever or chills, headache, chest pain, dyspnea, cough or cold symptoms, back or flank pain, diarrhea or constipation, bloody or melanotic stool, hematemesis, dysuria/hematuria/urinary frequency/urinary symptoms, or any other symptoms or complaints. Patient states that he has had gastric bypass surgery in the past. - Related Data Home Medications Medication Instructions Recorded Confirmed Allopurinol [Zyloprim] 300 mg PO DAILY 06/04/16 12/01/19 Cyclobenzaprine [Flexeril] 10 mg PO BID 06/04/16 12/01/19 Escitalopram [Lexapro] 10 mg PO QAM 06/04/16 12/01/19 Lacosamide [Vimpat] 50 mg PO BID 03/25/18 12/01/19 Ergocalciferol (Vitamin D2) 50,000 unit PO MO 06/19/18 12/01/19 [Vitamin D2] Pregabalin [Lyrica] 300 mg PO BID 07/17/18 12/01/19 Sertraline [Zoloft] 50 mg PO DAILY 07/20/19 12/01/19 Previous Rx's Medication Instructions Recorded Omeprazole 40 mg PO BID #60 cap 07/06/19 Sucralfate [Carafate] 1 gm PO BID #60 tablet 07/06/19 Acetaminophen Tab [Tylenol] 500 mg PO Q4HR PRN tab 12/15/19 Cefepime HCl [Maxipime] 2 gm IV Q12H #28 vial 12/15/19 Furosemide [Lasix] 40 mg PO DAILY #0 12/15/19 Polyethylene Glycol 3350 [Miralax] 17 gm PO DAILY PRN powd.pack 12/15/19 Pregabalin [Lyrica] 300 mg PO BID #6 cap 12/15/19 Sennosides-Docusate Sodium 1 each PO BID tab 12/15/19 [Senokot-S] Tamsulosin [Flomax] 0.4 mg PO DAILY cap.er.24h 12/15/19 Zolpidem Tartrate [Ambien] 10 mg PO HS #4 tab 12/15/19 metroNIDAZOLE [Flagyl] 500 mg PO Q8HR #42 tab 12/15/19 oxyCODONE-APAP 7.5-325MG [Percocet 1 tab PO DAILY PRN #10 tab 12/15/19 7.5-325 mg] Allergies Allergy/AdvReac Type Severity Reaction Status Date / Time No Known Allergies Allergy Verified 12/01/19 11:02 Review of Systems ROS Statement: Those systems with pertinent positive or pertinent negative responses have been documented in the HPI. ROS Other: All systems not noted in ROS Statement are negative. 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 BILATERAL KNEE arthroscopy, BILATERAL HIP replacement, LEFT SHOULDER replacement, LEFT ACHILES TENDON SX., RIGHT BIG TOE, echocardiolgram, spinal fusion, EGD with dilation., STATES HX OF PNEUMONIA WITH LUNG SURGERY., REPAIR OF HIATAL HERNIA & LYSIS OF ADHESIONS Past Anesthesia/Blood Transfusion Reactions: No Reported Reaction Past Psychological History: Anxiety, Depression Smoking Status: Former smoker Past Alcohol Use History: None Reported Past Drug Use History: None Reported - Past Family History Father Family Medical History: Cancer Additional Family Medical History / Comment(s): lung Mother Family Medical History: Coronary Artery Disease (CAD), Hypertension General Exam Limitations: no limitations General appearance: alert, in no apparent distress Head exam: Present: atraumatic, normocephalic Eye exam: Present: normal appearance, EOMI ENT exam: Present: mucous membranes moist Neck exam: Present: other (Trachea is in midline) Respiratory exam: Present: normal lung sounds bilaterally. Absent: respiratory distress, wheezes, rales, rhonchi Cardiovascular Exam: Present: regular rate, normal rhythm, normal heart sounds, other (Normal radial pulses bilaterally) GI/Abdominal exam: Present: soft, normal bowel sounds, other (Moderate diffuse abdominal tenderness). Absent: distended, guarding, rebound Extremities exam: Absent: tenderness, calf tenderness Back exam: Absent: CVA tenderness (R), CVA tenderness (L) Neurological exam: Present: alert, oriented X3. Absent: motor sensory deficit Psychiatric exam: Present: normal affect, normal mood Skin exam: Present: warm, dry, intact, normal color Course Vital Signs 01/08/20 13:32 Temperature 98.4 F Pulse Rate 89 Respiratory 18 Rate Blood Pressure 118/73 O2 Sat by Pulse 98 Oximetry - Reevaluation(s) Reevaluation #1: 01/08/20 15:59 Case, H&P and test results/CT report were discussed with Dr. Zarate (general surgeon). He recommends NG tube placement and keeping the patient NPO. He accepts hospital floor admission. He has no further recommendations at this time. 01/08/20 16:13 Patient states that his pain and nausea have improved with ED treatment, and he denies development of any new symptoms while in the ED. Patient's abdomen rem ains soft and without any surgical signs on exam. Patient has not had any vomiting while in the ED. Patient remains alert and breathing comfortably. Patient and are aware the patient's test results and my discussion with Dr. Zarate as above. Patient agrees with hospital admission at this time. Medical Decision Making - Medical Decision Making Patient is afebrile and without leukocytosis. Patient has a nonsurgical abdominal exam at this time. Given the patient's CT abdomen/pelvis findings, general surgery was consulted, and Dr. Zarate has accepted hospital admission. - Lab Data Result diagrams: 01/08/20 14:00 01/08/20 14:00 Lab Results 01/08/20 01/08/20 01/08/20 Range/Units 14:00 14:00 14:00 WBC 5.7 (3.8-10.6) k/uL RBC 4.18 L (4.30-5.90) m/uL Hgb 11.4 L (13.0-17.5) gm/dL Hct 38.0 L (39.0-53.0) % MCV 90.8 (80.0-100.0) fL MCH 27.4 (25.0-35.0) pg MCHC 30.1 L (31.0-37.0) g/dL RDW 18.2 H (11.5-15.5) % Plt Count 172 D (150-450) k/uL Neutrophils % 66 % Lymphocytes % 22 % Monocytes % 6 % Eosinophils % 3 % Basophils % 0 % Neutrophils # 3.8 (1.3-7.7) k/uL Lymphocytes # 1.3 (1.0-4.8) k/uL Monocytes # 0.3 (0-1.0) k/uL Eosinophils # 0.2 (0-0.7) k/uL Basophils # 0.0 (0-0.2) k/uL Hypochromasia Marked Anisocytosis Slight Sodium 141 (137-145) mmol/L Potassium 4.2 (3.5-5.1) mmol/L Chloride 103 (98-107) mmol/L Carbon Dioxide 32 H (22-30) mmol/L Anion Gap 6 mmol/L BUN 16 (9-20) mg/dL Creatinine 0.66 (0.66-1.25) mg/dL Est GFR (CKD-EPI)AfAm >90 (>60 ml/min/1.73 sqM) Est GFR (CKD-EPI)NonAf >90 (>60 ml/min/1.73 sqM) Glucose 101 H (74-99) mg/dL Plasma Lactic Acid Suresh 1.3 (0.7-2.0) mmol/L Calcium 9.0 (8.4-10.2) mg/dL Total Bilirubin 0.9 (0.2-1.3) mg/dL AST 27 (17-59) U/L ALT 12 (4-49) U/L Alkaline Phosphatase 88 (38-126) U/L Total Protein 8.2 (6.3-8.2) g/dL Albumin 3.8 (3.5-5.0) g/dL Amylase 76 (30-110) U/L Lipase 164 (23-300) U/L - Radiology Data Radiology results: report reviewed (CT abdomen/pelvis with IV contrast: Limited study; findings highly concerning for mesenteric twisting possibly due to an internal hernia with secondary high-grade small bowel obstruction; severely patulous thoracic esophagus with fluid distention; large heterogeneous collection within the subcutaneous adipose of the upper left buttock region measuring up to 8.9 cm) Disposition Clinical Impression: Abdominal pain, Vomiting, Small bowel obstruction Disposition: ADMITTED IP TO THIS HOSP Condition: Stable Is patient prescribed a controlled substance at d/c from ED?: No Referrals: Eric Ang DO [Primary Care Provider] - 1-2 days Time of Disposition: 16:08
[2020-01-08] MEDS ORDERED: SODIUM CHLORIDE 0.9% 500 ML 500 ML IV STA (13:58)
[2020-01-08] MEDS ORDERED: MORPHINE SULFATE 4 MG/ML SYRINGE IV STA (13:58)
[2020-01-08] MEDS ORDERED: ONDANSETRON 4 MG/2 ML VIAL IVP STA (13:58)
[2020-01-08 14:08] LABS: Anisocytosis Slight; Basophils % (A) 0 %; Eosinophils # (A) 0.2 k/uL (0-0.7); Eosinophils % (A) 3 %; HGB 11.4 gm/dL (13.0-17.5); Hypochromasia Marked; Lymphocytes # (A) 1.3 k/uL (1.0-4.8); Lymphocytes % (A) 22 %; MCH 27.4 pg (25.0-35.0); MCHC 30.1 g/dL (31.0-37.0); MCV 90.8 fL (80.0-100.0); Mean Platelet Volume 9.2; Monocytes # (A) 0.3 k/uL (0-1.0); Monocytes % (A) 6 %; Neutrophils # (A) 3.8 k/uL (1.3-7.7); Neutrophils % (A) 66 %; RBC 4.18 m/uL (4.30-5.90); RDW 18.2 % (11.5-15.5); WBC 5.7 k/uL (3.8-10.6)
[2020-01-08 14:18] LABS: ALT 12 U/L (4-49); AST 27 U/L (17-59); African American GFR (CKD) >90 (>60 ml/min/1.73 sqM); Albumin 3.8 g/dL (3.5-5.0); Alkaline Phosphatase 88 U/L (38-126); Amylase 76 U/L (30-110); Anion Gap 6 mmol/L; Blood Urea Nitrogen 16 mg/dL (9-20); Carbon Dioxide 32 mmol/L (22-30); Chloride 103 mmol/L (98-107); Glucose 101 mg/dL (74-99); Lipase 164 U/L (23-300); Non-African American GFR(CKD) >90 (>60 ml/min/1.73 sqM); Potassium 4.2 mmol/L (3.5-5.1); Sodium 141 mmol/L (137-145); Total Bilirubin 0.9 mg/dL (0.2-1.3); Total Protein 8.2 g/dL (6.3-8.2)
[2020-01-08 14:19] LABS: Platelet Count 172 k/uL (150-450)
--- NOTE | 2020-01-08 15:13 | CT ---
EXAMINATION TYPE: CT abdomen pelvis w con DATE OF EXAM: 01/08/2020 COMPARISON: 12/05/2019 HISTORY: 54 year-old male abdominal pain TECHNIQUE: Contiguous axial scanning of the abdomen and pelvis following administration of 100 ml Iso hakan 300 IV contrast. Delayed images through the kidneys and coronal/sagittal reconstructions perform ed. CT DLP: 1945.9 mGycm Automated exposure control for dose reduction was used. FINDINGS: Generator device is present along the anterior left lower quadrant. Metal artifact from the patient's bilateral total hip arthroplasties. For the limitation assessment due to artifact from patient's arm s down by his side. There is generalized anasarca changes. Postsurgical changes of prior hiatal hernia repair and sleeve gastrectomy. There is persistent focal thickening at the GE junction and marked patulous fluid distention of the thoracic esophagus measurin g up to 5.4 cm in caliber. Some patchy groundglass changes at the right base probably atelectasis. No pleural effusion. Extensive artifacts limiting the liver. No gross abnormality. Multiple calculi layering in the nondistended gallbladder. Adrenal glands appear within normal limits. Multiple calcified granulomas in the spleen. No obvious a bnormality of the pancreas. Extensive artifacts limit assessment. A couple calculi in the lower pole of the kidneys measuring up to 5 mm. Otherwise, kidneys show no gross abnormality. There appears to be moderate pelvic free fluid. There also appears to be a twisting of the mesenteric vessels in the right paramedian lower abdomen, refer to axial images 60 through 67. There are marked ly dilated small bowel loops measuring up to 5.9 cm in caliber. Air-fluid levels are present. Some of the distal small bowel loops are collapsed. Xnda-xg-spenrswk stool. No free air seen. Normal appendix. Some liquid stool is made its way to the cecum. Large heterogeneous collection, possible abnormal fluid or phlegmon measuring 8.9 x 4.9 cm within the subcutaneous adipose along the upper left buttock region. Very limited assessment of the pelvis due to extensive artifacts. Minimal scoliosis. Hypertrophic facet arthropathy throughout. Prior laminectomy change at L3 and L4. There is grade 1 anterolisthesis L4-L5. IMPRESSION: 1. Limitations due to body habitus, anasarca, generator device, arms down by the sides, and metal art ifact from bilateral total hip arthroplasties. 2. Findings highly concerning for a mesenteric twisting possibly due to an internal hernia with secon vadim high-grade small bowel obstruction. Small bowel loops are dilated up to 5.9 cm. 3. Moderate pelvic free fluid probably reactive to the obstruction. 4. Severely patulous thoracic esophagus with fluid distention. Correlate for a relative obstruction a t the GE junction status post hiatal hernia repair versus severe reflux. Note that the patient has pr ior esophagram studies. Prior sleeve gastrectomy as well. 5. Large heterogeneous collection within the subcutaneous adipose of the upper left buttock region me asuring up to 8.9 cm. Correlate for hematoma, phlegmon, or abscess.
[2020-01-08] MEDS ORDERED: NALOXONE 0.4 MG/ML 1 ML VIAL IV PRN (16:08)
[2020-01-08] MEDS ORDERED: ONDANSETRON 4 MG/2 ML VIAL IVP PRN (16:08)
[2020-01-08] MEDS: SODIUM CHLORIDE 0.9% 1,000 ML IV SCH (20:19)
[2020-01-08 23:39] LABS: Appearance,Urine Clear (Clear); Bilirubin,Urine Negative (Negative); Blood,Urine Negative (Negative); Color,Urine Yellow; Glucose,Urine (UA) Negative (Negative); Ketones,Urine Trace (Negative); Leukocyte Esterase,Urine Negative (Negative); Nitrite,Urine Negative (Negative); Protein,Urine Trace (Negative)
[2020-01-08 23:55] LABS: Specific Gravity,Urine >1.050 (1.001-1.035)
[2020-01-09] MEDS: SODIUM CHLORIDE 0.9% 1,000 ML IV SCH ×2 (05:37→20:31)
[2020-01-09 10:13] LABS: ALT 10 U/L (4-49); AST 37 U/L (17-59); African American GFR (CKD) >90 (>60 ml/min/1.73 sqM); Alkaline Phosphatase 55 U/L (38-126); Anion Gap 6 mmol/L; Blood Urea Nitrogen 15 mg/dL (9-20); Calcium 8.3 mg/dL (8.4-10.2); Carbon Dioxide 29 mmol/L (22-30); Chloride 106 mmol/L (98-107); Glucose 51 mg/dL (74-99); Non-African American GFR(CKD) >90 (>60 ml/min/1.73 sqM); Potassium 4.9 mmol/L (3.5-5.1); Sodium 141 mmol/L (137-145); Total Bilirubin 1.1 mg/dL (0.2-1.3); Total Protein 6.8 g/dL (6.3-8.2)
[2020-01-09 11:11] VITALS: BMI 30.7
--- NOTE | 2020-01-09 11:21 | P.GSHP ---
History of Present Illness H&P Date: 01/09/20 Chief Complaint: Small bowel obstruction This a 54-year-old male well-known to myself. Patient had previous sleeve gastric myself. She will he's had a subsequent hiatal hernia repair by Dr. Carbajal last spring. Patient presented emergently with abdominal pain patient underwent CAT scan found have evidence of a small bowel obstruction perhaps a twist in the mesentery causing a small bowel obstruction. Patient states he feels slightly better today. He is a limited output through his NG tube. 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 BILATERAL KNEE arthroscopy, BILATERAL HIP replacement, LEFT SHOULDER replacement, LEFT ACHILES TENDON SX., RIGHT BIG TOE took piece out, echocardiolgram, spinal fusion, EGD with dilation., STATES HX OF PNEUMONIA WITH LUNG SURGERY., REPAIR OF HIATAL HERNIA & LYSIS OF ADHESIONS Past Anesthesia/Blood Transfusion Reactions: No Reported Reaction Past Psychological History: Anxiety, Depression Smoking Status: Former smoker Past Alcohol Use History: None Reported Additional Past Alcohol Use History / Comment(s): quit smoking 2017, smoked since age 21, 1 PPD Past Drug Use History: None Reported - Past Family History Father Family Medical History: Cancer Additional Family Medical History / Comment(s): lung Mother Family Medical History: Coronary Artery Disease (CAD), Hypertension Medications and Allergies Home Medications Medication Instructions Recorded Confirmed Type Allopurinol [Zyloprim] 300 mg PO DAILY 06/04/16 01/08/20 History Cyclobenzaprine [Flexeril] 10 mg PO BID 06/04/16 01/08/20 History Escitalopram [Lexapro] 10 mg PO DAILY 06/04/16 01/08/20 History Lacosamide [Vimpat] 50 mg PO BID 03/25/18 01/08/20 History Omeprazole 40 mg PO BID #60 cap 07/06/19 01/08/20 Rx Sertraline [Zoloft] 50 mg PO DAILY 07/20/19 01/08/20 History Pregabalin [Lyrica] 300 mg PO BID #6 cap 12/15/19 01/08/20 Rx Zolpidem Tartrate [Ambien] 10 mg PO HS #4 tab 12/15/19 01/08/20 Rx oxyCODONE-APAP 7.5-325MG [Percocet 1 tab PO DAILY PRN #10 tab 12/15/19 01/08/20 Rx 7.5-325 mg] Furosemide [Lasix] 20 mg PO DAILY 01/08/20 01/08/20 History Lisinopril [Zestril] 2.5 mg PO DAILY 01/08/20 01/08/20 History Metoprolol Tartrate [Lopressor] 25 mg PO DAILY 01/08/20 01/08/20 History Allergies Allergy/AdvReac Type Severity Reaction Status Date / Time No Known Allergies Allergy Verified 01/08/20 16:42 Surgical - Exam Vital Signs Temp Pulse Resp BP Pulse Ox 98.4 F 89 18 118/73 98 01/08/20 13:32 01/08/20 13:32 01/08/20 13:32 01/08/20 13:32 01/08/20 13:32 - General well developed, well nourished, no distress - Eyes PERRL - ENT normal pinna - Neck no masses - Respiratory normal expansion - Cardiovascular Rhythm: regular - Abdomen Abdomen soft. There is no significant tenderness. There is no rebound or guarding. Abdomen: soft, non tender Results - Labs 01/08/20 14:00 01/09/20 09:11 Abnormal Lab Results - Last 24 Hours (Table) 01/08/20 01/08/20 01/08/20 Range/Units 14:00 14:00 23:25 RBC 4.18 L (4.30-5.90) m/uL Hgb 11.4 L (13.0-17.5) gm/dL Hct 38.0 L (39.0-53.0) % MCHC 30.1 L (31.0-37.0) g/dL RDW 18.2 H (11.5-15.5) % Carbon Dioxide 32 H (22-30) mmol/L Creatinine (0.66-1.25) mg/dL Glucose 101 H (74-99) mg/dL Calcium (8.4-10.2) mg/dL Albumin (3.5-5.0) g/dL Ur Specific [place] >1.050 H (1.001-1.035) Urine Protein Trace H (Negative) Urine Ketones Trace H (Negative) 01/09/20 Range/Units 09:11 RBC (4.30-5.90) m/uL Hgb (13.0-17.5) gm/dL Hct (39.0-53.0) % MCHC (31.0-37.0) g/dL RDW (11.5-15.5) % Carbon Dioxide (22-30) mmol/L Creatinine 0.64 L (0.66-1.25) mg/dL Glucose 51 L (74-99) mg/dL Calcium 8.3 L (8.4-10.2) mg/dL Albumin 3.0 L (3.5-5.0) g/dL Ur Specific [place] (1.001-1.035) Urine Protein (Negative) Urine Ketones (Negative) Diabetes panel 01/08/20 01/09/20 Range/Units 14:00 09:11 Sodium 141 141 (137-145) mmol/L Potassium 4.2 4.9 (3.5-5.1) mmol/L Chloride 103 106 (98-107) mmol/L Carbon Dioxide 32 H 29 (22-30) mmol/L BUN 16 15 (9-20) mg/dL Creatinine 0.66 0.64 L (0.66-1.25) mg/dL Glucose 101 H 51 L (74-99) mg/dL Calcium 9.0 8.3 L (8.4-10.2) mg/dL AST 27 37 (17-59) U/L ALT 12 10 (4-49) U/L Alkaline Phosphatase 88 55 (38-126) U/L Total Protein 8.2 6.8 (6.3-8.2) g/dL Albumin 3.8 3.0 L (3.5-5.0) g/dL Calcium panel 01/08/20 01/09/20 Range/Units 14:00 09:11 Calcium 9.0 8.3 L (8.4-10.2) mg/dL Albumin 3.8 3.0 L (3.5-5.0) g/dL Pituitary panel 01/08/20 01/09/20 Range/Units 14:00 09:11 Sodium 141 141 (137-145) mmol/L Potassium 4.2 4.9 (3.5-5.1) mmol/L Chloride 103 106 (98-107) mmol/L Carbon Dioxide 32 H 29 (22-30) mmol/L BUN 16 15 (9-20) mg/dL Creatinine 0.66 0.64 L (0.66-1.25) mg/dL Glucose 101 H 51 L (74-99) mg/dL Calcium 9.0 8.3 L (8.4-10.2) mg/dL Adrenal panel 01/08/20 01/09/20 Range/Units 14:00 09:11 Sodium 141 141 (137-145) mmol/L Potassium 4.2 4.9 (3.5-5.1) mmol/L Chloride 103 106 (98-107) mmol/L Carbon Dioxide 32 H 29 (22-30) mmol/L BUN 16 15 (9-20) mg/dL Creatinine 0.66 0.64 L (0.66-1.25) mg/dL Glucose 101 H 51 L (74-99) mg/dL Calcium 9.0 8.3 L (8.4-10.2) mg/dL Total Bilirubin 0.9 1.1 (0.2-1.3) mg/dL AST 27 37 (17-59) U/L ALT 12 10 (4-49) U/L Alkaline Phosphatase 88 55 (38-126) U/L Total Protein 8.2 6.8 (6.3-8.2) g/dL Albumin 3.8 3.0 L (3.5-5.0) g/dL - Imaging CT scan - abdomen: report reviewed (Small obstruction with possible torsion possible mesenteric twist causing small bowel obstruction.) Assessment and Plan Assessment: Small obstruction. Patient has a nasogastric tube placed. Clinically he feels he has improved. He'll be observed currently. He'll be closely observed.
[2020-01-09 11:34] LABS: Anisocytosis Slight; Basophils % (A) 1 %; Eosinophils # (A) 0.3 k/uL (0-0.7); Eosinophils % (A) 8 %; HCT 32.2 % (39.0-53.0); Hypochromasia Marked; Lymphocytes # (A) 1.4 k/uL (1.0-4.8); Lymphocytes % (A) 37 %; MCH 27.5 pg (25.0-35.0); MCHC 29.3 g/dL (31.0-37.0); MCV 93.8 fL (80.0-100.0); Mean Platelet Volume 11.8; Monocytes # (A) 0.2 k/uL (0-1.0); Monocytes % (A) 6 %; Neutrophils # (A) 1.7 k/uL (1.3-7.7); Neutrophils % (A) 45 %; Platelet Count 104 k/uL (150-450); RBC 3.43 m/uL (4.30-5.90); RDW 18.3 % (11.5-15.5); WBC 3.8 k/uL (3.8-10.6)
[2020-01-09 11:36] LABS: HGB 9.4 gm/dL (13.0-17.5)
[2020-01-09 12:13] LABS: Large Platelets Present
[2020-01-09] MEDS: MORPHINE SULFATE 4 MG/ML SYRINGE IV PRN (20:34)
[2020-01-10] MEDS ORDERED: DEXTROSE 50% SYRINGE 50 ML IVP ONE (07:08)
[2020-01-10 07:09] LABS: Glucose,Whole Blood 48 mg/dL (75-99)
[2020-01-10 07:09] LABS: Glucose,Whole Blood 48 mg/dL (75-99)
[2020-01-10] MEDS ORDERED: DEXTROSE 50% SYRINGE 50 ML IVP STA ×2 (07:09→11:46)
[2020-01-10] MEDS: SODIUM CHLORIDE 0.9% 1,000 ML IV SCH ×2 (07:23→11:56)
[2020-01-10 07:26] LABS: Glucose,Whole Blood 88 mg/dL (75-99)
[2020-01-10] MEDS: IOPAMIDOL CONTRAST (ORAL USE) VIAL PO PRN ×2 (09:35→10:27)
[2020-01-10] MEDS: MORPHINE SULFATE 4 MG/ML SYRINGE IV PRN ×2 (10:25→20:24)
[2020-01-10 11:42] LABS: Glucose,Whole Blood 43 mg/dL (75-99)
[2020-01-10] MEDS: DEXTROSE 5%-0.9% NACL 1,000 ML IV SCH (11:56)
--- NOTE | 2020-01-10 11:57 | CT ---
EXAMINATION TYPE: CT abdomen pelvis wo con DATE OF EXAM: 01/10/2020 COMPARISON: 01/08/2020 HISTORY: 54-year-old male small bowel obstruction CT DLP: 1538.2 mGycm. Automated exposure control for dose reduction was used. TECHNIQUE: Contiguous axial scanning of the abdomen and pelvis without IV contrast. Coronal and sagit solomon reconstructions performed. FINDINGS: Levoconvex scoliosis. Bilateral total hip arthroplasties. Generator device projecting at the left low er quadrant. There remains dilatation of the lower esophagus with small hiatal hernia and possible narrowing at th e GE junction. Oral contrast within the thoracic esophagus. Patchy opacity posterior right base, probable atelectasis. Heart normal size. Similar volume loss in the right hemithorax. Limited noncontrast and motion degraded assessment of the liver, adrenal glands, and pancreas. Nonobstructive bilateral renal calculi measuring up to 4 mm calcified granulomas within the spleen. Some layering sludge or gravel within the nondistended gallbladder. Generalized anasarca change redemonstrated. Considerable interval improvement in the dilated small bowel loops. Some residual small bowel loops a re dilated up to 5.1 cm, refer to coronal image 25. Mild stool throughout the colon. Normal appendix. Oral contrast has only made its way to the mid smal l bowel level. Multiple distal small bowel loops are collapsed in the lower abdomen and pelvis. Some whorled appearance of vessels and bowel loops in the mid lower abdomen and upper pelvis, refer t o axial image 56 through 61, persists. No free air. Extensive artifacts from the patient's bilateral total hip arthroplasties limits assessment of the pe lvis. Mild to moderate pelvic free fluid decreased from prior. Bladder is urine distended but limited in assessment. Bones: L4 laminectomy change. Advanced hypertrophic facet arthropathy. Right L3 pars defect. Advanced degenerative disc disease L4-L5 and L5-S1 with grade 1 retrolisthesis L3-L4 and grade 1 anterolisthe sis L4-L5. IMPRESSION: 1. Improving small bowel obstruction. A few residual dilated small bowel loops measure up to 5.1 cm versus 5.9 cm, previously. Some whorled appearance of vessels and small bowel in the mid to lower abd omen and upper pelvis remains (axial image 56 through 61). Oral contrast has only made its way to the mid small bowel level. Continue to follow progression of the oral contrast as clinically indicated. 2. Generalized anasarca change. Mild to moderate pelvic free fluid decrease from prior. 3. Similar contrast pooled in the dilated lower esophagus with small hiatal hernia and possible narr owing at the GE junction. Status post sleeve gastrectomy.
[2020-01-10 13:19] LABS: Glucose,Whole Blood 56 mg/dL (75-99)
[2020-01-10 13:45] LABS: Glucose,Whole Blood 63 mg/dL (75-99)
[2020-01-10 15:49] LABS: Glucose,Whole Blood 77 mg/dL (75-99)
--- NOTE | 2020-01-10 16:55 | P.CON ---
Consult Note - . Consult date: 01/10/20 Assessment/Plan:: Reason for consult- management of chronic medical conditions Mr. Barbosa is a 54-year-old male with a past medical history of hypertension, gout, chronic bilateral hip pain, peripheral neuropathy, gastric sleeve [place] [address] Zarate, repair of incarcerated paraesophageal hiatal hernia with mesh and takedown of gastric fistula by Dr. Dumont, severe esophagitis, esophageal obstruction or retardation coming into the hospital with a chief complaint of abdominal pain. Patient states that he has been having nausea and vomiting for the past 2-3 days, associated with generalized abdominal pain. Patient mentions that his last bowel movement was 2 days back. He mentions that he was having issues with constipation so she took laxatives and had diarrhea. But for the past 2 days he did not have a bowel movement. Patient denies having any blood in his stools when he had the diarrhea. No recent use of antibiotics. Patient denies having any fevers chills or rigors. He denies having any chest pain or palpitations. No cough or difficulty in breathing. Denies having any myalgias. Denies having hematuria or dysuria. In the emergency room, patient's vitals at the time of admission temperature 98.4, heart rate 89, respiratory rate 18, blood pressure 118/73, saturating at 98%. He had a CAT scan of the abdomen showing mesenteric twisting possibly due to internal hernia with secondary high-grade small bowel obstruction. Small bowel loops dilated up to 5.9 cm. Moderate pelvic free fluid probably reactive to obstruction. So the patient was kept nothing by mouth, NG tube was placed and admitted under surgical service. We have been consulted for management of his chronic medical conditions. On reviewing the patient's labs his hemoglobin is low at 9.4, no significant electrolyte abnormalities noted. Urine is positive for trace protein, negative for night tights and esterase. Tolentino virus negative. REVIEW OF SYSTEMS: PSYCH: No anxiety or depression NEURO:No c/o weakness of the extremties, No facial droop, No speech abnormalities. VASCULAR: Peripheral nervous system within the normal limits no edema HEMATOLOGIC: No history of easy bleeding and bruising . No recent infections . RESPIRATORY: No cough, No SOB, No chest discomfort. IMMUNE: No infections INTEGUMENT: no rashes OPHTHALMOLOGIC: No blurry vision and no eye discharge : No dysuria or hematuria CARDIAC: No chest pain , shortness of breath , paroxysmal nocturnal dyspnea MUSCULOSKELETAL : No Aches or pains in the joints or muscles. 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 BILATERAL KNEE arthroscopy, BILATERAL HIP replacement, LEFT SHOULDER replacement, LEFT ACHILES TENDON SX., RIGHT BIG TOE took piece out, echocardiolgram, spinal fusion, EGD with dilation., STATES HX OF PNEUMONIA WITH LUNG SURGERY., REPAIR OF HIATAL HERNIA & LYSIS OF ADHESIONS Past Anesthesia/Blood Transfusion Reactions: No Reported Reaction Past Psychological History: Anxiety, Depression Smoking Status: Former smoker Past Alcohol Use History: None Reported Additional Past Alcohol Use History / Comment(s): quit smoking 2017, smoked since age 21, 1 PPD Past Drug Use History: None Reported - Past Family History Father Family Medical History: Cancer Additional Family Medical History / Comment(s): lung Mother Family Medical History: Coronary Artery Disease (CAD), Hypertension Medications and Allergies Home Medications Medication Instructions Recorded Confirmed Type Allopurinol [Zyloprim] 300 mg PO DAILY 06/04/16 01/08/20 History Cyclobenzaprine [Flexeril] 10 mg PO BID 06/04/16 01/08/20 History Escitalopram [Lexapro] 10 mg PO DAILY 06/04/16 01/08/20 History Lacosamide [Vimpat] 50 mg PO BID 03/25/18 01/08/20 History Omeprazole 40 mg PO BID #60 cap 07/06/19 01/08/20 Rx Sertraline [Zoloft] 50 mg PO DAILY 07/20/19 01/08/20 History Pregabalin [Lyrica] 300 mg PO BID #6 cap 12/15/19 01/08/20 Rx Zolpidem Tartrate [Ambien] 10 mg PO HS #4 tab 12/15/19 01/08/20 Rx oxyCODONE-APAP 7.5-325MG [Percocet 1 tab PO DAILY PRN #10 tab 12/15/19 01/08/20 Rx 7.5-325 mg] Furosemide [Lasix] 20 mg PO DAILY 01/08/20 01/08/20 History Lisinopril [Zestril] 2.5 mg PO DAILY 01/08/20 01/08/20 History Metoprolol Tartrate [Lopressor] 25 mg PO DAILY 01/08/20 01/08/20 History Allergies Allergy/AdvReac Type Severity Reaction Status Date / Time No Known Allergies Allergy Verified 01/08/20 16:42 Physical Exam Vitals: Vital Signs Temp Pulse Resp BP Pulse Ox 01/10/20 07:00 97.9 F 75 18 115/70 94 L 01/10/20 01:30 98.1 F 82 20 122/69 95 01/10/20 00:00 17 01/09/20 20:00 17 01/09/20 19:45 98.2 F 69 134/82 92 L 01/09/20 16:00 77 17 01/09/20 15:00 98.7 F 77 17 119/72 96 Intake and Output 01/09/20 01/10/20 01/10/20 22:59 06:59 14:59 Intake Total 640 Output Total 400 500 Balance -400 140 Intake: Intake, IV Titration 640 Amount Sodium Chloride 0.9% 1, 640 000 ml @ 80 mls/hr IV . [id number] [facility] Rx#:[id number] Oral 0 Output: Urine 400 500 Other: Voiding Method Urinal Urinal # Voids 0 0 Physical examination: GENERAL: appears to be in mild discomfort due to NG tube EYES: Pupils equal. Conjunctiva normal. HEENT: External appearance of nose and ears normal, oral cavity grossly normal. NECK: JVD not raised; masses not palpable. HEART: First and second heart sounds are normal; No edeam, Dry extremities. LUNGS: Respiratory rate normal, decreased breath sounds. ABDOMEN: soft, non tender, No guarding or rigidity PSYCH: Alert and oriented x3; mood and affect normal. NEUROLOGICAL: Cranial nerves grossly intact; no facial asymmetry, power and sensation grossly intact. SKIN - healing skin lesion on the left wrist Results CBC & Chem 7: 01/09/20 09:11 01/09/20 09:11 Labs: Abnormal Lab Results - Last 24 Hours (Table) 01/09/20 01/10/20 01/10/20 Range/Units 09:11 07:05 07:06 RBC 3.43 L (4.30-5.90) m/uL Hgb 9.4 L D (13.0-17.5) gm/dL Hct 32.2 L (39.0-53.0) % MCHC 29.3 L (31.0-37.0) g/dL RDW 18.3 H (11.5-15.5) % Plt Count 104 L (150-450) k/uL POC Glucose (mg/dL) 48 L 48 L (75-99) mg/dL ASSESSMENT -Partial small bowel obstruction -History of recurrent esophageal stricture with recurrent dilatation -Severe esophagitis and distal esophageal ulcer., -History of paraesophageal repair and history of sleeve gastrectomy -Essential hypertension -Primary osteoarthritis -Gout -Idiopathic peripheral neuropathy -Chronic back pain with the pain pump PLAN: Patient is kept nothing by mouth and NG tube is in place. We will hold off on all his by mouth medications as his nothing by mouth. If the patient's blood pressure is high, we will give when necessary IV hydralazine. GI DVT prophylaxis as per primary care team management. Further recommendations to follow depending on the progress of the patient. Thank you for the consult, will follow the patient.
--- NOTE | 2020-01-10 17:01 | P.PN ---
Progress Note - Text Progress Note Date: 01/10/20 The patient feels better. He is asked see passed some gas. His CAT scan shows much improved small bowel obstruction. On exam her lesser stable. His evidence soft. The Patient will have his nasogastric tube removed. He'll start a clear liquid diet.
[2020-01-10] MEDS ORDERED: oxyCODONE-APAP 7.5-325MG 1 EACH TAB PO PRN (17:30)
[2020-01-10] MEDS: ZOLPIDEM 10 MG TAB PO SCH (20:24)
[2020-01-10] MEDS: PREGABALIN 100 MG CAP PO SCH (20:24)
[2020-01-10] MEDS: PANTOPRAZOLE 40 MG TABLET PO SCH (20:24)
[2020-01-10] MEDS: LACOSAMIDE 50 MG TABLET PO SCH (20:24)
[2020-01-10] MEDS: CYCLOBENZAPRINE 10 MG TAB PO SCH (20:24)
[2020-01-11 06:48] LABS: Glucose,Whole Blood 65 mg/dL (75-99)
[2020-01-11 07:10] LABS: Glucose,Whole Blood 71 mg/dL (75-99)
[2020-01-11] MEDS: PREGABALIN 100 MG CAP PO SCH ×2 (07:10→21:06)
[2020-01-11] MEDS: PANTOPRAZOLE 40 MG TABLET PO SCH ×2 (07:10→17:49)
[2020-01-11] MEDS: FUROSEMIDE 20 MG TAB PO SCH (07:10)
[2020-01-11] MEDS: allopurinoL 300 MG TAB PO SCH (07:10)
[2020-01-11] MEDS: CYCLOBENZAPRINE 10 MG TAB PO SCH ×2 (07:10→21:06)
[2020-01-11] MEDS: ESCITALOPRAM 10 MG TAB PO SCH (07:10)
[2020-01-11] MEDS: LACOSAMIDE 50 MG TABLET PO SCH ×2 (07:10→21:06)
[2020-01-11] MEDS: SERTRALINE 50 MG TAB PO SCH (07:10)
[2020-01-11] MEDS: METOPROLOL TARTRATE 25 MG TAB PO SCH (07:12)
[2020-01-11 08:20] LABS: Anisocytosis Slight; Basophils % (A) 0 %; Eosinophils # (A) 0.3 k/uL (0-0.7); Eosinophils % (A) 6 %; HGB 11.7 gm/dL (13.0-17.5); Hypochromasia Marked; Lymphocytes # (A) 1.7 k/uL (1.0-4.8); Lymphocytes % (A) 32 %; MCH 28.4 pg (25.0-35.0); MCHC 30.7 g/dL (31.0-37.0); MCV 92.4 fL (80.0-100.0); Mean Platelet Volume 9.9; Monocytes # (A) 0.4 k/uL (0-1.0); Monocytes % (A) 7 %; Neutrophils # (A) 2.7 k/uL (1.3-7.7); Neutrophils % (A) 52 %; Platelet Count 134 k/uL (150-450); RBC 4.11 m/uL (4.30-5.90); RDW 17.9 % (11.5-15.5); WBC 5.2 k/uL (3.8-10.6)
[2020-01-11 08:31] LABS: ALT 11 U/L (4-49); AST 23 U/L (17-59); African American GFR (CKD) >90 (>60 ml/min/1.73 sqM); Albumin 3.6 g/dL (3.5-5.0); Alkaline Phosphatase 74 U/L (38-126); Anion Gap 10 mmol/L; Blood Urea Nitrogen 9 mg/dL (9-20); Calcium 8.4 mg/dL (8.4-10.2); Carbon Dioxide 30 mmol/L (22-30); Chloride 100 mmol/L (98-107); Glucose 109 mg/dL (74-99); Non-African American GFR(CKD) >90 (>60 ml/min/1.73 sqM); Potassium 4.1 mmol/L (3.5-5.1); Sodium 140 mmol/L (137-145); Total Bilirubin 0.9 mg/dL (0.2-1.3)
--- NOTE | 2020-01-11 09:13 | P.PN ---
Subjective From the records Mr. Barbosa is a 54-year-old male with a past medical history of hypertension, gout, chronic bilateral hip pain, peripheral neuropathy, gastric [place] [address] Zarate, repair of incarcerated paraesophageal hiatal hernia with mesh and takedown of gastric fistula by Dr. Dumotn, severe esophagitis, esophageal obstruction or retardation coming into the hospital with a chief complaint of abdominal pain. Patient states that he has been having nausea and vomiting for the past 2-3 days, associated with generalized abdominal pain. Patient mentions that his last bowel movement was 2 days back. He mentions that he was having issues with constipation so she took laxatives and had diarrhea. But for the past 2 days he did not have a bowel movement. Patient denies having any blood in his stools when he had the diarrhea. No recent use of antibiotics. Patient denies having any fevers chills or rigors. He denies having any chest pain or palpitations. No cough or difficulty in breathing. Denies having any myalgias. Denies having hematuria or dysuria. In the emergency room, patient's vitals at the time of admission temperature 98.4, heart rate 89, respiratory rate 18, blood pressure 118/73, saturating at 98%. He had a CAT scan of the abdomen showing mesenteric twisting possibly due to internal hernia with secondary high-grade small bowel obstruction. Small bowel loops dilated up to 5.9 cm. Moderate pelvic free fluid probably reactive to obstruction. So the patient was kept nothing by mouth, NG tube was placed and admitted under surgical service. We have been consulted for management of his chronic medical conditions. On reviewing the patient's labs his hemoglobin is low at 9.4, no significant electrolyte abnormalities noted. Urine is positive for trace protein, negative for night tights and esterase. Tolentino virus negative. Subjective 01/11/2020 This is a pleasant 54 -[place] male who presents with small bowel obstruction, his been evaluated by surgeon and treated conservatively, this morning it looks better, is tolerating liquid diet, no nausea vomiting is still have left lower quadrant abdominal pain and tenderness about 6/10 in severity, he had 2 big bowel movement since last night but no blood in them, and surgery team on the case Repeat CAT scan of the abdomen this morning showing dilatation of the esophagus with small hiatal hernia and possible narrowing at the GE junction, generalized anasarca, interval improvement in dilated small bowel loops Patient states that he is been having dizziness almost every other day for the last 2 months, associated with some postural symptoms usually when he is trying to stand up or walking for long distance. At baseline he walks using her walker Is currently on D5 normal saline at 83 ml/h, no subcu heparin Also patient has wound in his right upper thigh close to his scrotum, a status post incision and drainage of the right scrotal abscess by Dr. Almonte on 12/11, wound looks clean and open little bit but no discharge, and healthy granulation tissue at the base. He was on cefepime treated for his so the wound infection with Pseudomonas, currently is off antibiotic Echocardiogram on 07/2019 showed ejection fraction of 50-55% with moderate LVH He was treated for pneumonia earlier this year on-07/2019, and biopsy from 07/05/19 showing acute erosive esophagitis, no malignant cells Review of systems CONSTITUTIONAL: No fever, no malaise, no fatigue. HEENT: No recent visual problems or hearing problems. Denied any sore throat. CARDIOVASCULAR: No orthopnea, PND, no palpitations, no syncope. PULMONARY: No shortness of breath, no cough, no hemoptysis. NEUROLOGICAL: No headaches, no weakness, no numbness. HEMATOLOGICAL: Denies any bleeding or petechiae. MUSCULOSKELETAL/RHEUMATOLOGICAL: Denies any joint pain, swelling, or any muscle pain. ENDOCRINE: Denies any polyuria or polydipsia. Active Medications Generic Name Dose Route Start Last Admin Trade Name Freq PRN Reason Stop Dose Admin Allopurinol 300 mg 01/11/20 09:00 01/11/20 07:10 Zyloprim PO 300 mg DAILY MATT Administration Cyclobenzaprine HCl 10 mg 01/10/20 21:00 01/11/20 07:10 Flexeril PO 10 mg BID MATT Administration Escitalopram Oxalate 10 mg 01/11/20 09:00 01/11/20 07:10 Lexapro PO 10 mg DAILY MATT Administration Furosemide 20 mg 01/11/20 09:00 01/11/20 07:10 Lasix PO 20 mg DAILY MATT Administration Dextrose/Sodium Chloride 1,000 mls @ 60 mls/hr 01/10/20 11:45 01/11/20 00:00 Dextrose 5%-Ns Iv Soln IV 83 mls/hr .[id number] MATT Administration Lacosamide 50 mg 01/10/20 21:00 01/11/20 07:10 Vimpat PO 50 mg BID MATT Administration Lisinopril 2.5 mg 01/11/20 09:00 01/11/20 07:11 Zestril PO 2.5 mg DAILY MATT Administration Metoprolol Tartrate 25 mg 01/11/20 09:00 01/11/20 07:12 Lopressor PO Not Given DAILY MATT Morphine Sulfate 4 mg 01/08/20 16:08 01/10/20 20:24 Morphine Sulfate (Inj) IV 4 mg Q4HR PRN Administration Severe Pain Naloxone HCl 0.2 mg 01/08/20 16:08 Narcan IV Q2M PRN Opioid Reversal Ondansetron HCl 4 mg 01/08/20 16:08 Zofran IVP Q8HR PRN Nausea And Vomiting Oxycodone/Acetaminophen 1 each 01/10/20 17:30 Percocet 7.5-325 PO DAILY PRN Pain Pantoprazole Sodium 40 mg 01/10/20 21:00 01/11/20 07:10 Protonix PO 40 mg AC-BID MATT Administration Pregabalin 300 mg 01/10/20 21:00 01/11/20 07:10 Lyrica PO 300 mg BID MATT Administration Sertraline HCl 50 mg 01/11/20 09:00 01/11/20 07:10 Zoloft PO 50 mg DAILY MATT Administration Zolpidem Tartrate 10 mg 01/10/20 21:00 01/10/20 20:24 Ambien PO 10 mg HS MATT Administration Objective - Vital Signs Vital signs: Vital Signs Temp 98.2 F 01/11/20 07:00 Pulse 58 L 01/11/20 07:00 Resp 17 01/11/20 07:00 BP 134/65 01/11/20 07:00 Pulse Ox 98 01/11/20 07:00 Intake & Output 01/10/20 01/11/20 01/11/20 18:59 06:59 18:59 Intake Total 300 Output Total 625 300 Balance -625 0 Intake: Oral 300 Output: Gastric Drainage 225 Urine 400 300 Other: Voiding Method Urinal Urinal # Voids 0 2 - Labs CBC & Chem 7: 01/11/20 07:43 01/11/20 07:43 Labs: Abnormal Lab Results - Last 24 Hours (Table) 01/10/20 01/10/20 01/10/20 Range/Units 11:38 13:18 13:44 RBC (4.30-5.90) m/uL Hgb (13.0-17.5) gm/dL Hct (39.0-53.0) % MCHC (31.0-37.0) g/dL RDW (11.5-15.5) % Plt Count (150-450) k/uL Creatinine (0.66-1.25) mg/dL Glucose (74-99) mg/dL POC Glucose (mg/dL) 43 L 56 L 63 L (75-99) mg/dL 01/11/20 01/11/20 01/11/20 Range/Units 06:47 07:08 07:43 RBC 4.11 L (4.30-5.90) m/uL Hgb 11.7 L (13.0-17.5) gm/dL Hct 38.0 L (39.0-53.0) % MCHC 30.7 L (31.0-37.0) g/dL RDW 17.9 H (11.5-15.5) % Plt Count 134 L (150-450) k/uL Creatinine (0.66-1.25) mg/dL Glucose (74-99) mg/dL POC Glucose (mg/dL) 65 L 71 L (75-99) mg/dL 01/11/20 Range/Units 07:43 RBC (4.30-5.90) m/uL Hgb (13.0-17.5) gm/dL Hct (39.0-53.0) % MCHC (31.0-37.0) g/dL RDW (11.5-15.5) % Plt Count (150-450) k/uL Creatinine 0.61 L (0.66-1.25) mg/dL Glucose 109 H (74-99) mg/dL POC Glucose (mg/dL) (75-99) mg/dL Assessment and Plan Assessment: -Small bowel obstruction -Generalized anasarca -Dizziness with fall -Left upper buttock hematoma, secondary to fall -History of recurrent esophageal stricture status post repeated dilatation -History of acute erosive esophagitis, currently in the Protonix twice a day -History of paraesophageal repair and history of sleeve gastrectomy -Essential hypertension -Primary osteoarthritis -Gout -Idiopathic peripheral neuropathy -Chronic back pain with the pain pump Plan: This is a pleasant 54 years old male who presents with bowel obstruction and fallen and dizziness. Surgery team have been following the case and decided to treat him conservatively. Continue with diet and follow-up recommendation by surgeons. Lower IV fluids to 60 mL/h, start the patient on Lasix, also call cardiology consult for his dizziness We'll check left upper buttock soft tissue ultrasound Hold on subcutaneous heparin due to his hematoma Labs and medication were reviewed.. Continue same treatment. Continue with symptomatic treatment. Resume home medication. Monitor lytes and vitals. DVT and GI prophylaxis. Further recommendations of the clinical course of the patient DVT prophylaxis: No Subcutaneous heparin a few of hematoma GI Prophylaxis: Ppi PT/OT: Subacute rehab, drug abuse social worker consult Prognosis is guarded
[2020-01-11] MEDS: DEXTROSE 5%-0.9% NACL 1,000 ML IV SCH ×2 (10:39)
[2020-01-11 11:37] LABS: Glucose,Whole Blood 67 mg/dL (75-99)
[2020-01-11 11:59] LABS: Glucose,Whole Blood 52 mg/dL (75-99)
[2020-01-11] MEDS ORDERED: DEXTROSE 5% IN WATER 1,000 ML IV SCH (12:00)
--- NOTE | 2020-01-11 12:07 | P.PN ---
Progress Note - Text Progress Note Date: 01/11/20 Patient states he feels better. He's had multiple bowel movements. On exam vital signs are stable. Abdomen is soft. Resolve ileus versus partial small bowel charge. Patient is doing clinically well. He'll have his diet advanced. We plan on discharge home tomorrow.
[2020-01-11 12:24] LABS: Glucose,Whole Blood 53 mg/dL (75-99)
[2020-01-11] MEDS ORDERED: DEXTROSE 50% SYRINGE 50 ML IVP STA (12:26)
[2020-01-11 12:54] LABS: Glucose,Whole Blood 93 mg/dL (75-99)
[2020-01-11 17:15] LABS: Glucose,Whole Blood 55 mg/dL (75-99)
[2020-01-11 17:48] LABS: Glucose,Whole Blood 52 mg/dL (75-99)
[2020-01-11] MEDS ORDERED: DEXTROSE 50% SYRINGE 50 ML IVP ONE (17:49)
[2020-01-11 18:06] LABS: Glucose,Whole Blood 63 mg/dL (75-99)
[2020-01-11 18:25] LABS: Glucose,Whole Blood 115 mg/dL (75-99)
[2020-01-11] MEDS: MORPHINE SULFATE 4 MG/ML SYRINGE IV PRN (21:06)
[2020-01-11] MEDS: ZOLPIDEM 10 MG TAB PO SCH (21:06)
[2020-01-11] MEDS: DEXTROSE 10% IN WATER 1,000 ML in EMPTY BAG 1 BAG IV SCH (21:06)
[2020-01-11 22:04] LABS: Glucose,Whole Blood 80 mg/dL (75-99)
[2020-01-12 01:56] LABS: Glucose,Whole Blood 108 mg/dL (75-99)
[2020-01-12 06:05] LABS: Glucose,Whole Blood 75 mg/dL (75-99)
[2020-01-12] MEDS: DEXTROSE 50% SYRINGE 50 ML IVP PRN ×2 (06:10→14:08)
[2020-01-12 06:24] LABS: Glucose,Whole Blood 78 mg/dL (75-99)
[2020-01-12 06:43] LABS: Glucose,Whole Blood 108 mg/dL (75-99)
[2020-01-12] MEDS ORDERED: oxyCODONE-APAP 7.5-325MG 1 EACH TAB PO PRN (07:18)
[2020-01-12 07:34] LABS: Anisocytosis Slight; Basophils % (A) 0 %; Eosinophils # (A) 0.3 k/uL (0-0.7); Eosinophils % (A) 6 %; HCT 37.3 % (39.0-53.0); HGB 11.1 gm/dL (13.0-17.5); Hypochromasia Marked; Lymphocytes # (A) 1.6 k/uL (1.0-4.8); Lymphocytes % (A) 35 %; MCHC 29.8 g/dL (31.0-37.0); MCV 93.9 fL (80.0-100.0); Mean Platelet Volume 9.2; Monocytes # (A) 0.3 k/uL (0-1.0); Monocytes % (A) 6 %; Neutrophils # (A) 2.4 k/uL (1.3-7.7); Neutrophils % (A) 51 %; Platelet Count 145 k/uL (150-450); RBC 3.97 m/uL (4.30-5.90); RDW 18.1 % (11.5-15.5); WBC 4.7 k/uL (3.8-10.6)
[2020-01-12 07:50] LABS: ALT 9 U/L (4-49); AST 20 U/L (17-59); African American GFR (CKD) >90 (>60 ml/min/1.73 sqM); Albumin 3.4 g/dL (3.5-5.0); Alkaline Phosphatase 65 U/L (38-126); Anion Gap 7 mmol/L; Blood Urea Nitrogen 6 mg/dL (9-20); Calcium 8.2 mg/dL (8.4-10.2); Carbon Dioxide 33 mmol/L (22-30); Chloride 99 mmol/L (98-107); Glucose 74 mg/dL (74-99); Non-African American GFR(CKD) >90 (>60 ml/min/1.73 sqM); Potassium 3.5 mmol/L (3.5-5.1); Sodium 139 mmol/L (137-145); Total Bilirubin 0.9 mg/dL (0.2-1.3); Total Protein 7.4 g/dL (6.3-8.2)
--- NOTE | 2020-01-12 08:00 | P.PN ---
Subjective From the records Mr. Barbosa is a 54-year-old male with a past medical history of hypertension, gout, chronic bilateral hip pain, peripheral neuropathy, gastric sleeve [place] [address] Zarate, repair of incarcerated paraesophageal hiatal hernia with mesh and takedown of gastric fistula by Dr. Dumont, severe esophagitis, esophageal obstruction or retardation coming into the hospital with a chief complaint of abdominal pain. Patient states that he has been having nausea and vomiting for the past 2-3 days, associated with generalized abdominal pain. Patient mentions that his last bowel movement was 2 days back. He mentions that he was having issues with constipation so she took laxatives and had diarrhea. But for the past 2 days he did not have a bowel movement. Patient denies having any blood in his stools when he had the diarrhea. No recent use of antibiotics. Patient denies having any fevers chills or rigors. He denies having any chest pain or palpitations. No cough or difficulty in breathing. Denies having any myalgias. Denies having hematuria or dysuria. In the emergency room, patient's vitals at the time of admission temperature 98.4, heart rate 89, respiratory rate 18, blood pressure 118/73, saturating at 98%. He had a CAT scan of the abdomen showing mesenteric twisting possibly due to internal hernia with secondary high-grade small bowel obstruction. Small bowel loops dilated up to 5.9 cm. Moderate pelvic free fluid probably reactive to obstruction. So the patient was kept nothing by mouth, NG tube was placed and admitted under surgical service. We have been consulted for management of his chronic medical conditions. On reviewing the patient's labs his hemoglobin is low at 9.4, no significant electrolyte abnormalities noted. Urine is positive for trace protein, negative for night tights and esterase. Tolentino virus negative. Subjective 01/11/2020 This is a pleasant 54 -[place] male who presents with small bowel obstruction, his been evaluated by surgeon and treated conservatively, this morning it looks better, is tolerating liquid diet, no nausea vomiting is still have left lower quadrant abdominal pain and tenderness about 6/10 in severity, he had 2 big bowel movement since last night but no blood in them, and surgery team on the case Repeat CAT scan of the abdomen this morning showing dilatation of the esophagus with small hiatal hernia and possible narrowing at the GE junction, generalized anasarca, interval improvement in dilated small bowel loops Patient states that he is been having dizziness almost every other day for the last 2 months, associated with some postural symptoms usually when he is trying to stand up or walking for long distance. At baseline he walks using her walker Is currently on D5 normal saline at 83 ml/h, no subcu heparin Also patient has wound in his right upper thigh close to his scrotum, a status post incision and drainage of the right scrotal abscess by Dr. Almonte on 12/11, wound looks clean and open little bit but no discharge, and healthy granulation tissue at the base. He was on cefepime treated for his so the wound infection with Pseudomonas, currently is off antibiotic Echocardiogram on 07/2019 showed ejection fraction of 50-55% with moderate LVH He was treated for pneumonia earlier this year on-07/2019, and biopsy from 07/05/19 showing acute erosive esophagitis, no malignant cells 01/12/2020 Patient is awake and alert, he is tolerating liquid diet, with no vomiting, his lower abdominal pain is about is/10 in severity he had one bowel movement yesterday and through the day before. He is bending on the right side because of pain in his left buttock from his hematoma secondary to fall, the hematoma looks more test today, however patient refusing IV pain medication, so we increased his Percocet 7.5 mg from once daily to every 6 hours as needed, ordered soft tissue ultrasound for further assessment Patient has recurrent hyperglycemia with glucose drops in the 50s and 60s, patient remains awake, has been treated with D50 injections and placed on D10 last evening, most likely his hypoglycemia causing him episodes of dizziness and contributed to his fall prior to hospitalization, therefore we recommend further investigation like TSH, serum cortisol, and swelling and C-peptide, however we recommend patient to be transferred to tertiary care center once patient is a stable for surgical team (no certified medical dosimetrist available in this hospital), discussed with staff Review of systems CONSTITUTIONAL: No fever, no malaise, no fatigue. HEENT: No recent visual problems or hearing problems. Denied any sore throat. CARDIOVASCULAR: No orthopnea, PND, no palpitations, no syncope. PULMONARY: No shortness of breath, no cough, no hemoptysis. NEUROLOGICAL: No headaches, no weakness, no numbness. HEMATOLOGICAL: Denies any bleeding or petechiae. MUSCULOSKELETAL/RHEUMATOLOGICAL: Denies any joint pain, swelling, or any muscle pain. ENDOCRINE: Denies any polyuria or polydipsia. Active Medications Generic Name Dose Route Start Last Admin Trade Name Freq PRN Reason Stop Dose Admin Allopurinol 300 mg 01/11/20 09:00 01/11/20 07:10 Zyloprim PO 300 mg DAILY MATT Administration Cyclobenzaprine HCl 10 mg 01/10/20 21:00 01/11/20 21:06 Flexeril PO 10 mg BID MATT Administration Dextrose/Water 50 ml 01/11/20 18:23 01/12/20 06:10 Dextrose 50% Syringe IVP 50 ml Q4H PRN Administration Hypoglycemia Escitalopram Oxalate 10 mg 01/11/20 09:00 01/11/20 07:10 Lexapro PO 10 mg DAILY MATT Administration Furosemide 20 mg 01/11/20 09:00 01/11/20 07:10 Lasix PO 20 mg DAILY MATT Administration Dextrose/Water 1,000 ml/ IV 1,000 mls @ 75 mls/hr 01/11/20 18:30 01/11/20 21:06 Solution IV 75 mls/hr .[id number] MATT Administration Lacosamide 50 mg 01/10/20 21:00 01/11/20 21:06 Vimpat PO 50 mg BID MATT Administration Lisinopril 2.5 mg 01/11/20 09:00 01/11/20 07:11 Zestril PO 2.5 mg DAILY MATT Administration Metoprolol Tartrate 25 mg 01/11/20 09:00 01/11/20 07:12 Lopressor PO Not Given DAILY MATT Morphine Sulfate 4 mg 01/08/20 16:08 01/11/20 21:06 Morphine Sulfate (Inj) IV 4 mg Q4HR PRN Administration Severe Pain Naloxone HCl 0.2 mg 01/08/20 16:08 Narcan IV Q2M PRN Opioid Reversal Ondansetron HCl 4 mg 01/08/20 16:08 Zofran IVP Q8HR PRN Nausea And Vomiting Oxycodone/Acetaminophen 1 each 01/12/20 07:18 Percocet 7.5-325 PO Q6HR PRN Pain Pantoprazole Sodium 40 mg 01/10/20 21:00 01/11/20 17:49 Protonix PO 40 mg AC-BID MATT Administration Pregabalin 300 mg 01/10/20 21:00 01/11/20 21:06 Lyrica PO 300 mg BID MATT Administration Sertraline HCl 50 mg 01/11/20 09:00 01/11/20 07:10 Zoloft PO 50 mg DAILY MATT Administration Zolpidem Tartrate 10 mg 01/10/20 21:00 01/11/20 21:06 Ambien PO 10 mg HS MATT Administration Objective - Vital Signs Vital signs: Vital Signs Temp 98.3 F 01/12/20 07:00 Pulse 65 01/12/20 07:00 Resp 18 01/12/20 07:00 BP 132/73 01/12/20 07:00 Pulse Ox 94 L 01/12/20 07:00 Intake & Output 01/11/20 01/12/20 01/12/20 18:59 06:59 18:59 Intake Total 760 Output Total 620 1200 Balance 140 -1200 Intake: Intake, IV Titration 180 Amount Dextrose 5%-0.9% NaCl 1, 180 000 ml @ 60 mls/hr IV . [id number] MATT Rx#:[id number] Oral 580 Output: Urine 620 1200 Other: Voiding Method Urinal Urinal - Exam GENERAL: The patient is alert and oriented x3, not in any acute distress. Well developed, well nourished. HEENT: Pupils are round and equally reacting to light. EOMI. No scleral icterus. No conjunctival pallor. Normocephalic, atraumatic. No pharyngeal erythema. No thyromegaly. CARDIOVASCULAR: S1 and S2 present. No murmurs, rubs, or gallops. PULMONARY: Chest is clear to auscultation, no wheezing or crackles. -ABDOMEN: Soft, lower abdominal tenderness, no rebound tenderness, nondistended, normoactive bowel sounds. No palpable organomegaly. MUSCULOSKELETAL: No joint swelling or deformity. -EXTREMITIES: No cyanosis, clubbing, or pedal edema. More firm Large Left upper buttock fluid collection , the overlying skin looks normal NEUROLOGICAL: Gross neurological examination did not reveal any focal deficits. SKIN: No rashes. no petechiae. - Labs CBC & Chem 7: 01/12/20 07:15 01/12/20 07:15 Labs: Abnormal Lab Results - Last 24 Hours (Table) 01/11/20 01/11/2020 Range/Units 07:43 07:43 11:36 RBC 4.11 L (4.30-5.90) m/uL Hgb 11.7 L (13.0-17.5) gm/dL Hct 38.0 L (39.0-53.0) % MCHC 30.7 L (31.0-37.0) g/dL RDW 17.9 H (11.5-15.5) % Plt Count 134 L (150-450) k/uL Carbon Dioxide (22-30) mmol/L BUN (9-20) mg/dL Creatinine 0.61 L (0.66-1.25) mg/dL Glucose 109 H (74-99) mg/dL POC Glucose (mg/dL) 67 L (75-99) mg/dL Calcium (8.4-10.2) mg/dL Albumin (3.5-5.0) g/dL 01/11/20 01/11/20 01/11/20 Range/Units 11:58 12:22 17:14 RBC (4.30-5.90) m/uL Hgb (13.0-17.5) gm/dL Hct (39.0-53.0) % MCHC (31.0-37.0) g/dL RDW (11.5-15.5) % Plt Count (150-450) k/uL Carbon Dioxide (22-30) mmol/L BUN (9-20) mg/dL Creatinine (0.66-1.25) mg/dL Glucose (74-99) mg/dL POC Glucose (mg/dL) 52 L 53 L 55 L (75-99) mg/dL Calcium (8.4-10.2) mg/dL Albumin (3.5-5.0) g/dL 01/11/20 01/11/20 01/11/20 Range/Units 17:46 18:05 18:24 RBC (4.30-5.90) m/uL Hgb (13.0-17.5) gm/dL Hct (39.0-53.0) % MCHC (31.0-37.0) g/dL RDW (11.5-15.5) % Plt Count (150-450) k/uL Carbon Dioxide (22-30) mmol/L BUN (9-20) mg/dL Creatinine (0.66-1.25) mg/dL Glucose (74-99) mg/dL POC Glucose (mg/dL) 52 L 63 L 115 H (75-99) mg/dL Calcium (8.4-10.2) mg/dL Albumin (3.5-5.0) g/dL 01/12/20 01/12/20 01/12/20 Range/Units 01:53 06:41 07:15 RBC 3.97 L (4.30-5.90) m/uL Hgb 11.1 L (13.0-17.5) gm/dL Hct 37.3 L (39.0-53.0) % MCHC 29.8 L (31.0-37.0) g/dL RDW 18.1 H (11.5-15.5) % Plt Count 145 L (150-450) k/uL Carbon Dioxide (22-30) mmol/L BUN (9-20) mg/dL Creatinine (0.66-1.25) mg/dL Glucose (74-99) mg/dL POC Glucose (mg/dL) 108 H 108 H (75-99) mg/dL Calcium (8.4-10.2) mg/dL Albumin (3.5-5.0) g/dL 01/12/20 Range/Units 07:15 RBC (4.30-5.90) m/uL Hgb (13.0-17.5) gm/dL Hct (39.0-53.0) % MCHC (31.0-37.0) g/dL RDW (11.5-15.5) % Plt Count (150-450) k/uL Carbon Dioxide 33 H (22-30) mmol/L BUN 6 L (9-20) mg/dL Creatinine 0.63 L (0.66-1.25) mg/dL Glucose (74-99) mg/dL POC Glucose (mg/dL) (75-99) mg/dL Calcium 8.2 L (8.4-10.2) mg/dL Albumin 3.4 L (3.5-5.0) g/dL Assessment and Plan Assessment: -Small bowel obstruction -Recurrent and ongoing hypoglycemia, unknown etiology -Recurrent Dizziness with fall, secondary to hypoglycemia. Rule out cardiac causes -Left upper buttock hematoma, secondary to fall -Generalized anasarca -History of recurrent esophageal stricture status post repeated dilatation -History of acute erosive esophagitis, currently in the Protonix twice a day -History of paraesophageal repair and history of sleeve gastrectomy -Essential hypertension -Primary osteoarthritis -Gout -Idiopathic peripheral neuropathy -Chronic back pain with the pain pump Plan: This is a pleasant 54 years old male who presents with bowel obstruction and fallen and dizziness. Surgery team have been following the case and decided to treat him conservatively. Continue with diet and follow-up recommendation by surgeons. Change patient fluid to D10 and continue with that, start the patient on Lasix, also call cardiology consult for his dizziness Follow-up serum cortisol, TSH, insulin and C-peptide for his hyperglycemia however we recommend transferring the patient to tertiary care center We'll check left upper buttock soft tissue ultrasound Labs and medication were reviewed.. Continue same treatment. Continue with symptomatic treatment. Resume home medication. Monitor lytes and vitals. DVT and GI prophylaxis. Further recommendations of the clinical course of the patient DVT prophylaxis: No Subcutaneous heparin in view of buttock hematoma GI Prophylaxis: Ppi PT/OT: Subacute rehab, social services consult Prognosis is guarded
[2020-01-12] MEDS: PREGABALIN 100 MG CAP PO SCH (09:47)
[2020-01-12] MEDS: CYCLOBENZAPRINE 10 MG TAB PO SCH (09:48)
[2020-01-12] MEDS: METOPROLOL TARTRATE 25 MG TAB PO SCH (09:48)
[2020-01-12] MEDS: allopurinoL 300 MG TAB PO SCH (09:48)
[2020-01-12] MEDS: LACOSAMIDE 50 MG TABLET PO SCH (09:49)
[2020-01-12] MEDS: ESCITALOPRAM 10 MG TAB PO SCH (09:49)
[2020-01-12] MEDS: PANTOPRAZOLE 40 MG TABLET PO SCH ×2 (09:49→17:29)
[2020-01-12] MEDS: SERTRALINE 50 MG TAB PO SCH (09:49)
[2020-01-12] MEDS: FUROSEMIDE 20 MG TAB PO SCH (09:49)
[2020-01-12] MEDS: DEXTROSE 10% IN WATER 1,000 ML in EMPTY BAG 1 BAG IV SCH (09:50)
[2020-01-12 10:24] LABS: Glucose,Whole Blood 94 mg/dL (75-99)
--- NOTE | 2020-01-12 11:41 | P.CRDCN ---
History of Present Illness History of present illness: HISTORY OF PRESENTING ILLNESS This is a pleasant 54-year-old -[place] male past medical history significant for nonischemic cardiomyopathy 2019 with recent improvement in LV function, dyslipidemia, hypertension, prior history of diabetes mellitus that improved after weight loss surgery and former nicotine dependence. He follows in the office with Dr. Sheffield. We have been asked to see in consultation for dizziness. He presented to the hospital on January 07 with symptoms of abdominal pain nausea and vomiting. He was found to have findings concerning for mesenteric twisting with high-grade small bowel obstruction. He underwent NG tube decompression and has had several bowel movements in the past 24 hours. From an abdominal perspective he seems to be feeling well. He states he has had 2 episodes of feeling lightheaded approximately 2 weeks ago while at home. He states he noticed these abnormalities when he would change positions quickly. He had no syncope or loss of consciousness. He denied having symptoms of chest pain, shortness of breath, palpitations, diaphoresis or nausea associated with these symptoms. He recently wore a 14 day event monitor that revealed sinus mechanism with PVCs. No arrhythmias noted. Echocardiogram obtained July 2019 revealed preserved LV systolic function with ejection fraction 50-55%. No significant valvular abnormalities noted. No EKG obtained on admission. Laboratory data reviewed, WBC 4.7, hemoglobin 11.1, platelets 145, sodium 139, potassium 3.5, creatinine 0.63, TSH 1.21, troponin negative x1. Current daily cardiac medications include lisinopril 2.5 mg daily, Lopressor 25 mg daily and Lasix 20 mg daily. June 2018 he had catheterization revealing no significant obstructive CAD. REVIEW OF SYSTEMS At the time of my exam: CONSTITUTIONAL: Denies fever or chills. CARDIOVASCULAR: Denies chest pain, shortness of breath, orthopnea, PND or palpitations. RESPIRATORY: Denies cough. GASTROINTESTINAL: Denies abdominal pain, diarrhea, constipation, nausea or vomiting. MUSCULOSKELETAL: Denies myalgias. NEUROLOGIC: Denies numbness, tingling or weakness. ENDOCRINE: Denies fatigue, weight change, polydipsia or polyurina. GENITOURINARY: Denies burning, hematuria or urgency with micturation. HEMATOLOGIC: Denies history of anemia or bleeding. PHYSICAL EXAMINATION Blood pressure 132/73 heart rate 65 afebrile and maintaining oxygen saturation on room air. CONSTITUTIONAL: No apparent distress. HEENT: Head is normocephalic. Pupils are equal, round. Sclerae anicteric. Mucous membranes of the mouth are moist. No JVD. No carotid bruit. CHEST EXAMINATION: Lungs are clear to auscultation. No chest wall tenderness is noted on palpation or with deep breathing. HEART EXAMINATION: Regular rate and rhythm. S1, S2 heard. No murmurs, gallops or rub. ABDOMEN: Soft, nontender. Positive bowel sounds. EXTREMITIES: 2+ peripheral pulses, no lower extremity edema and no calf tenderness. NEUROLOGIC EXAMINATION: Patient is awake, alert and oriented x3. ASSESSMENT Postural dizziness Bowel obstruction Hypoglycemia History of non-ischemic cardiomyopathy, improved on recent echocardiogram Hypertension PLAN Check for orthostatic changes. Obtain baseline EKG. Apply 24-hour quality assurance monitor final. Further recommendations to follow based on clinical course. Thank you kindly for this consultation. Nurse Practitioner note has been reviewed, I agree with a documented findings and plan of care. Patient was seen and examined. 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 BILATERAL KNEE arthroscopy, BILATERAL HIP replacement, LEFT SHOULDER replacement, LEFT ACHILES TENDON SX., RIGHT BIG TOE took piece out, echocardiolgram, spinal fusion, EGD with dilation., STATES HX OF PNEUMONIA WITH LUNG SURGERY., REPAIR OF HIATAL HERNIA & LYSIS OF ADHESIONS Past Anesthesia/Blood Transfusion Reactions: No Reported Reaction Past Psychological History: Anxiety, Depression Smoking Status: Former smoker Past Alcohol Use History: None Reported Additional Past Alcohol Use History / Comment(s): quit smoking 2017, smoked since age 21, 1 PPD Past Drug Use History: None Reported - Past Family History Father Family Medical History: Cancer Additional Family Medical History / Comment(s): lung Mother Family Medical History: Coronary Artery Disease (CAD), Hypertension Medications and Allergies Home Medications Medication Instructions Recorded Confirmed Type Allopurinol [Zyloprim] 300 mg PO DAILY 06/04/16 01/08/20 History Cyclobenzaprine [Flexeril] 10 mg PO BID 06/04/16 01/08/20 History Escitalopram [Lexapro] 10 mg PO DAILY 06/04/16 01/08/20 History Lacosamide [Vimpat] 50 mg PO BID 03/25/18 01/08/20 History Omeprazole 40 mg PO BID #60 cap 07/06/19 01/08/20 Rx Sertraline [Zoloft] 50 mg PO DAILY 07/20/19 01/08/20 History Pregabalin [Lyrica] 300 mg PO BID #6 cap 12/15/19 01/08/20 Rx Zolpidem Tartrate [Ambien] 10 mg PO HS #4 tab 12/15/19 01/08/20 Rx oxyCODONE-APAP 7.5-325MG [Percocet 1 tab PO DAILY PRN #10 tab 12/15/19 01/08/20 Rx 7.5-325 mg] Furosemide [Lasix] 20 mg PO DAILY 01/08/20 01/08/20 History Metoprolol Tartrate [Lopressor] 25 mg PO DAILY 01/08/20 01/08/20 History lisinopriL [Zestril] 2.5 mg PO DAILY 01/08/20 01/08/20 History Allergies Allergy/AdvReac Type Severity Reaction Status Date / Time No Known Allergies Allergy Verified 01/08/20 16:42 Physical Exam Vitals: Vital Signs Temp Pulse Resp BP Pulse Ox 01/12/20 07:00 98.3 F 65 18 132/73 94 L 01/12/20 04:36 16 01/12/20 01:52 99.5 F 75 116/74 92 L 01/12/20 00:00 16 01/11/20 19:20 16 01/11/20 19:09 99.5 F 78 100/62 94 L 01/11/20 15:00 97.9 F 77 16 158/92 94 L Intake and Output 01/11/20 01/12/20 01/12/20 22:59 06:59 14:59 Output Total 1200 Balance -1200 Output: Urine 1200 Other: Voiding Method Urinal Urinal Weight 105.687 kg Results 01/12/20 07:15 01/12/20 07:15 Cardiac Enzymes 01/12/20 01/12/20 Range/Units 07:15 07:15 AST 20 (17-59) U/L Troponin I <0.012 (0.000-0.034) ng/mL CBC 01/12/20 Range/Units 07:15 WBC 4.7 (3.8-10.6) k/uL RBC 3.97 L (4.30-5.90) m/uL Hgb 11.1 L (13.0-17.5) gm/dL Hct 37.3 L (39.0-53.0) % Plt Count 145 L (150-450) k/uL Comprehensive Metabolic Panel 01/12/20 Range/Units 07:15 Sodium 139 (137-145) mmol/L Potassium 3.5 (3.5-5.1) mmol/L Chloride 99 (98-107) mmol/L Carbon Dioxide 33 H (22-30) mmol/L BUN 6 L (9-20) mg/dL Creatinine 0.63 L (0.66-1.25) mg/dL Glucose 74 (74-99) mg/dL Calcium 8.2 L (8.4-10.2) mg/dL AST 20 (17-59) U/L ALT 9 (4-49) U/L Alkaline Phosphatase 65 (38-126) U/L Total Protein 7.4 (6.3-8.2) g/dL Albumin 3.4 L (3.5-5.0) g/dL Current Medications Generic Name Dose Route Start Last Admin Trade Name Freq PRN Reason Stop Dose Admin Allopurinol 300 mg 01/11/20 09:00 01/12/20 09:48 Zyloprim PO 300 mg DAILY MATT Administration Cyclobenzaprine HCl 10 mg 01/10/20 21:00 01/12/20 09:48 Flexeril PO 10 mg BID MATT Administration Dextrose/Water 50 ml 01/11/20 18:23 01/12/20 06:10 Dextrose 50% Syringe IVP 50 ml Q4H PRN Administration Hypoglycemia Escitalopram Oxalate 10 mg 01/11/20 09:00 01/12/20 09:49 Lexapro PO 10 mg DAILY MATT Administration Furosemide 20 mg 01/11/20 09:00 01/12/20 09:49 Lasix PO 20 mg DAILY MATT Administration Dextrose/Water 1,000 ml/ IV 1,000 mls @ 75 mls/hr 01/11/20 18:30 01/12/20 09:50 Solution IV 75 mls/hr .[id number] MATT Administration Lacosamide 50 mg 01/10/20 21:00 01/12/20 09:49 Vimpat PO 50 mg BID MATT Administration Lisinopril 2.5 mg 01/11/20 09:00 01/12/20 09:48 Zestril PO 2.5 mg DAILY MATT Administration Metoprolol Tartrate 25 mg 01/11/20 09:00 01/12/20 09:48 Lopressor PO 25 mg DAILY MATT Administration Morphine Sulfate 4 mg 01/08/20 16:08 01/11/20 21:06 Morphine Sulfate (Inj) IV 4 mg Q4HR PRN Administration Severe Pain Naloxone HCl 0.2 mg 01/08/20 16:08 Narcan IV Q2M PRN Opioid Reversal Ondansetron HCl 4 mg 01/08/20 16:08 Zofran IVP Q8HR PRN Nausea And Vomiting Oxycodone/Acetaminophen 1 each 01/12/20 07:18 Percocet 7.5-325 PO Q6HR PRN Pain Pantoprazole Sodium 40 mg 01/10/20 21:00 01/12/20 09:49 Protonix PO 40 mg AC-BID MATT Administration Pregabalin 300 mg 01/10/20 21:00 01/12/20 09:47 Lyrica PO 300 mg BID MATT Administration Sertraline HCl 50 mg 01/11/20 09:00 01/12/20 09:49 Zoloft PO 50 mg DAILY MATT Administration Zolpidem Tartrate 10 mg 01/10/20 21:00 01/11/20 21:06 Ambien PO 10 mg HS MATT Administration Intake and Output 01/11/20 01/12/20 01/12/20 22:59 06:59 14:59 Output Total 1200 Balance -1200 Output: Urine 1200 Other: Voiding Method Urinal Urinal Weight 105.687 kg Patient Weight 01/13/20 06:59 Weight 105.687 kg 01/12/20 07:15 01/12/20 07:15
--- NOTE | 2020-01-12 12:33 | US ---
EXAMINATION TYPE: US extremity nonvasc mass LT DATE OF EXAM: 01/12/2020 COMPARISON: NONE CLINICAL HISTORY: of the left buttock hematoma . Patients states he fell on his left side 2 weeks ago , now has palpable and painful area of left buttock. Left buttock: 4.2 x 3.5 x 8.9cm hypoechoic area seen at patient's area of concern. IMPRESSION: 1. There is a nonspecific 8.9 cm hypoechoic area over the area of palpable abnormality. Could represe nt a mass or complicated fluid collection such as hematoma or abscess. Consider follow-up CT scan.
[2020-01-12 14:03] LABS: Glucose,Whole Blood 67 mg/dL (75-99)
[2020-01-12 14:11] VITALS: RESP 17
[2020-01-12 14:24] LABS: Glucose,Whole Blood 124 mg/dL (75-99)
[2020-01-12 15:00] VITALS: BP 105/70; PULSE 68; TEMP 98.5
--- NOTE | 2020-01-12 16:20 | P.PN ---
Progress Note - Text Progress Note Date: 01/12/20 The patient is hungry and is requesting 48. He has had flatus and in multiple bowel movements. Patient was hypoglycemic last night. On exam her vital signs are stable. Abdomen soft. There is no significant tenderness. Patient will start on regular diet. He may be transferred for workup of his hypoglycemia.
[2020-01-12 16:31] LABS: Glucose,Whole Blood 139 mg/dL (75-99)
[2020-01-12] MEDS: MORPHINE SULFATE 4 MG/ML SYRINGE IV PRN (17:29)
[2020-01-12 18:39] LABS: C-Peptide 3.57 ng/mL (0.81-3.85)
== END 2020-01-12 18:13 | disposition short-term general hospital (02) | DRG 389 ==
LOC: EC 13:27 → 4SSUR 16:08
PROVIDERS: ADMIT Surgery; ATTEND Surgery
DX: K56.600 Partial intestinal obstruction, unspecified as to cause (principal); I42.8 Other cardiomyopathies; K22.10 Ulcer of esophagus without bleeding; K44.9 Diaphragmatic hernia without obstruction or gangrene; M10.9 Gout, unspecified; M19.91 Primary osteoarthritis, unspecified site; S30.0XXA Contusion of lower back and pelvis, initial encounter; W19.XXXA Unspecified fall, initial encounter; Z53.20 Procedure and treatment not carried out because of patient's decision for unspecified reasons; Z11.59 Encounter for screening for other viral diseases; D64.9 Anemia, unspecified; E11.649 Type 2 diabetes mellitus with hypoglycemia without coma; E11.42 Type 2 diabetes mellitus with diabetic polyneuropathy; G60.9 Hereditary and idiopathic neuropathy, unspecified; E78.5 Hyperlipidemia, unspecified; F32.9 Major depressive disorder, single episode, unspecified; F41.9 Anxiety disorder, unspecified; G89.29 Other chronic pain; M54.9 Dorsalgia, unspecified; I10 Essential (primary) hypertension; Z79.899 Other long term (current) drug therapy; Z82.49 Family history of ischemic heart disease and other diseases of the circulatory system; Z86.73 Personal history of transient ischemic attack (TIA), and cerebral infarction without residual deficits; R13.10 Dysphagia, unspecified; Z87.01 Personal history of pneumonia (recurrent); Z87.19 Personal history of other diseases of the digestive system; Z87.891 Personal history of nicotine dependence; Z96.612 Presence of left artificial shoulder joint; Z96.643 Presence of artificial hip joint, bilateral; Z98.1 Arthrodesis status; Z98.84 Bariatric surgery status; K21.0 Gastro-esophageal reflux disease with esophagitis
CPT/HCPCS: 36415; 74176; 74177; 80053; 81003; 82150; 82533; 83525; 83605; 83690; 84443; 84484; 84681; 85025; 96361; 96374; 96375; 99285

== ENCOUNTER 2020-03-09 10:27 | Emergency (ER) | payer MEDICARE, OTHER ==
--- NOTE | 2020-03-09 10:39 | ED ---
Back Pain HPI - General Chief Complaint: Back Pain/Injury Stated Complaint: L back pain & swollen hand Time Seen by Provider: 03/09/20 10:38 Source: patient Limitations: no limitations - History of Present Illness Initial Comments: Patient is a 54-year-old male presenting to the emergency department with chief complaint of left flank pain. Patient states started about 3 days ago and it was sudden onset. States pain is only localized to the left flank region without any radiation. States the pain is sharp in nature and is constant. States it is worse when she starts moving around. States she has been alternating between Tylenol and Motrin with no significant improvement in symptoms. Patient reports he has previously had pain like this before and the exact same region but never lasted this long. He denies any increased urgency or frequency or dysuria. Denies hematuria, hematochezia or melena. Denies any abdominal pain nausea vomiting or diarrhea. Denies any chest pain or shortness of breath. Denies fevers or chills. - Related Data Home Medications Medication Instructions Recorded Confirmed Allopurinol [Zyloprim] 300 mg PO DAILY 06/04/16 03/09/20 Cyclobenzaprine [Flexeril] 10 mg PO BID 06/04/16 03/09/20 Escitalopram [Lexapro] 10 mg PO DAILY 06/04/16 03/09/20 Lacosamide [Vimpat] 50 mg PO BID 03/25/18 03/09/20 Furosemide [Lasix] 20 mg PO DAILY 01/08/20 03/09/20 Metoprolol Tartrate [Lopressor] 25 mg PO DAILY 01/08/20 03/09/20 lisinopriL [Zestril] 2.5 mg PO DAILY 01/08/20 03/09/20 Hydrocortisone [Cortef] 10 mg PO HS 03/09/20 03/09/20 Hydrocortisone [Cortef] 20 mg PO DAILY 03/09/20 03/09/20 Pregabalin [Lyrica] 300 mg PO BID 03/09/20 03/09/20 Sildenafil Citrate 100 mg PO DAILY PRN 03/09/20 03/09/20 Previous Rx's Medication Instructions Recorded Omeprazole 40 mg PO BID #60 cap 07/06/19 Zolpidem Tartrate [Ambien] 10 mg PO HS #4 tab 12/15/19 oxyCODONE-APAP 7.5-325MG [Percocet 1 tab PO DAILY PRN #10 tab 12/15/19 7.5-325 mg] Allergies Allergy/AdvReac Type Severity Reaction Status Date / Time No Known Allergies Allergy Verified 03/09/20 10:30 Review of Systems ROS Statement: Those systems with pertinent positive or pertinent negative responses have been documented in the HPI. ROS Other: All systems not noted in ROS Statement are negative. 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 BILATERAL KNEE arthroscopy, BILATERAL HIP replacement, LEFT SHOULDER replacement, LEFT ACHILES TENDON SX., RIGHT BIG TOE took piece out, echocardiolgram, spinal fusion, EGD with dilation., STATES HX OF PNEUMONIA WITH LUNG SURGERY., REPAIR OF HIATAL HERNIA & LYSIS OF ADHESIONS Past Anesthesia/Blood Transfusion Reactions: No Reported Reaction Past Psychological History: Anxiety, Depression Smoking Status: Former smoker Past Alcohol Use History: None Reported Past Drug Use History: None Reported - Past Family History Father Family Medical History: Cancer Additional Family Medical History / Comment(s): lung Mother Family Medical History: Coronary Artery Disease (CAD), Hypertension General Exam Limitations: no limitations General appearance: alert, in no apparent distress Head exam: Present: atraumatic, normocephalic, normal inspection Eye exam: Present: normal appearance, PERRL, EOMI Pupils: Present: normal accommodation ENT exam: Present: normal exam, normal oropharynx, mucous membranes moist, TM's normal bilaterally, normal external ear exam Neck exam: Present: normal inspection, full ROM. Absent: tenderness Respiratory exam: Present: normal lung sounds bilaterally. Absent: respiratory distress, wheezes, rales Cardiovascular Exam: Present: regular rate, normal rhythm, normal heart sounds GI/Abdominal exam: Present: soft, tenderness (Left flank), other (Abdominal scarring from previous surgeries). Absent: distended, guarding, rebound, rigid Extremities exam: Present: normal inspection, full ROM, normal capillary refill. Absent: tenderness Back exam: Present: normal inspection, full ROM, tenderness, CVA tenderness (L) Neurological exam: Present: alert, oriented X3 Psychiatric exam: Present: normal affect, normal mood Skin exam: Present: warm, dry, intact, normal color Course Vital Signs 03/09/20 03/09/20 03/09/20 10:30 12:30 13:30 Temperature 98.2 F Pulse Rate 82 68 71 Respiratory 18 18 118 H Rate Blood Pressure 118/61 94/65 97/66 O2 Sat by Pulse 95 96 93 L Oximetry 03/09/20 03/09/20 14:15 14:35 Temperature 98.1 F 98.1 F Pulse Rate 64 70 Respiratory 18 18 Rate Blood Pressure 100/69 103/71 O2 Sat by Pulse 97 95 Oximetry Medical Decision Making - Medical Decision Making Condition 54-year-old male presenting to emergency Department chief complaint of left flank pain. He seems to be there previously although has never lasted this long. On physical exam, he does have left CVA tenderness. Patient was given analgesia and fluids in the ED. patient is anemic at 10.3 hemoglobin although this appears to be his relative baseline. CMP is unremarkable. UA reveals small amounts of blood and elevated red blood cells. CT without contrast was obtained to rule out a renal stone. It did reveal renal stones in bilateral kidneys but nothing in the ureter bladder or urethra. Patient does have a fentanyl pump in his left abdominal region after a lower back surgery. Patient is had previous pain like this, so this appears to be nothing new. He was advised to follow with his primary care physician. Dr. Colindres also examined the patient is agreeable with the treatment plan. Strict return parameters were thoroughly discussed the patient was understanding and agreeable. Case discussed with physician. - Lab Data Result diagrams: 03/09/20 10:47 03/09/20 10:47 Lab Results 03/09/20 03/09/20 03/09/20 Range/Units 10:47 10:47 10:47 WBC 5.9 (3.8-10.6) k/uL RBC 4.18 L (4.30-5.90) m/uL Hgb 10.3 L (13.0-17.5) gm/dL Hct 35.3 L (39.0-53.0) % MCV 84.4 D (80.0-100.0) fL MCH 24.6 L (25.0-35.0) pg MCHC 29.2 L (31.0-37.0) g/dL RDW 16.9 H (11.5-15.5) % Plt Count 390 D (150-450) k/uL Neutrophils % 68 % Lymphocytes % 25 % Monocytes % 3 % Eosinophils % 3 % Basophils % 1 % Neutrophils # 4.0 (1.3-7.7) k/uL Lymphocytes # 1.4 (1.0-4.8) k/uL Monocytes # 0.2 (0-1.0) k/uL Eosinophils # 0.2 (0-0.7) k/uL Basophils # 0.0 (0-0.2) k/uL Manual Slide Review Performed Hypochromasia Marked Anisocytosis Slight Sodium 144 (137-145) mmol/L Potassium 4.1 (3.5-5.1) mmol/L Chloride 105 (98-107) mmol/L Carbon Dioxide 33 H (22-30) mmol/L Anion Gap 6 mmol/L BUN 18 (9-20) mg/dL Creatinine 0.79 (0.66-1.25) mg/dL Est GFR (CKD-EPI)AfAm >90 (>60 ml/min/1.73 sqM) Est GFR (CKD-EPI)NonAf >90 (>60 ml/min/1.73 sqM) Glucose 91 (74-99) mg/dL Calcium 8.6 (8.4-10.2) mg/dL Total Bilirubin 0.3 (0.2-1.3) mg/dL AST 18 (17-59) U/L ALT 11 (4-49) U/L Alkaline Phosphatase 80 (38-126) U/L Total Protein 7.0 (6.3-8.2) g/dL Albumin 3.2 L (3.5-5.0) g/dL Urine Color Yellow Urine Appearance Cloudy (Clear) Urine pH 6.0 (5.0-8.0) Ur Specific [place] 1.028 (1.001-1.035) Urine Protein 1+ H (Negative) Urine Glucose (UA) Negative (Negative) Urine Ketones Negative (Negative) Urine Blood Small H (Negative) Urine Nitrite Negative (Negative) Urine Bilirubin Negative (Negative) Urine Urobilinogen 4.0 (<2.0) mg/dL Ur Leukocyte Esterase Small H (Negative) Urine RBC 7 H (0-5) /hpf Urine WBC 7 H (0-5) /hpf Urine Bacteria Many H (None) /hpf Urine Mucus Few H (None) /hpf Disposition Clinical Impression: Left flank pain, Hematuria Disposition: HOME SELF-CARE Condition: Stable Instructions (If sedation given, give patient instructions): Abdominal Pain (ED), Kidney Stones (ED) Additional Instructions: Follow up with your primary care physician. Return to emergency department if symptoms worsen. Is patient prescribed a controlled substance at d/c from ED?: No Referrals: Eric Ang DO [Primary Care Provider] - 1-2 days Time of Disposition: 14:17
[2020-03-09] MEDS ORDERED: SODIUM CHLORIDE 0.9% 1,000 ML IV STA ×2 (10:45→12:39)
[2020-03-09] MEDS ORDERED: KETOROLAC 15 MG/ML 1 ML VIAL IVP STA (10:45)
[2020-03-09] MEDS ORDERED: ONDANSETRON 4 MG/2 ML VIAL IVP STA (10:53)
[2020-03-09] MEDS ORDERED: MORPHINE SULFATE 4 MG/ML SYRINGE IVP STA (10:53)
[2020-03-09 10:57] LABS: Anisocytosis Slight; Basophils % (A) 1 %; Eosinophils # (A) 0.2 k/uL (0-0.7); Eosinophils % (A) 3 %; HCT 35.3 % (39.0-53.0); HGB 10.3 gm/dL (13.0-17.5); Hypochromasia Marked; Lymphocytes # (A) 1.4 k/uL (1.0-4.8); Lymphocytes % (A) 25 %; MCH 24.6 pg (25.0-35.0); MCHC 29.2 g/dL (31.0-37.0); Mean Platelet Volume 8.1; Monocytes # (A) 0.2 k/uL (0-1.0); Monocytes % (A) 3 %; Neutrophils % (A) 68 %; RBC 4.18 m/uL (4.30-5.90); RDW 16.9 % (11.5-15.5); WBC 5.9 k/uL (3.8-10.6)
[2020-03-09 11:16] LABS: ALT 11 U/L (4-49); AST 18 U/L (17-59); African American GFR (CKD) >90 (>60 ml/min/1.73 sqM); Albumin 3.2 g/dL (3.5-5.0); Alkaline Phosphatase 80 U/L (38-126); Anion Gap 6 mmol/L; Blood Urea Nitrogen 18 mg/dL (9-20); Calcium 8.6 mg/dL (8.4-10.2); Carbon Dioxide 33 mmol/L (22-30); Chloride 105 mmol/L (98-107); Glucose 91 mg/dL (74-99); Non-African American GFR(CKD) >90 (>60 ml/min/1.73 sqM); Potassium 4.1 mmol/L (3.5-5.1); Sodium 144 mmol/L (137-145); Total Bilirubin 0.3 mg/dL (0.2-1.3)
[2020-03-09] MEDS ORDERED: HYDROmorphone 0.5 MG/0.5 ML SYRINGE IVP STA ×2 (11:43→14:17)
[2020-03-09 12:10] LABS: Platelet Count 390 k/uL (150-450)
[2020-03-09 12:17] LABS: MCV 84.4 fL (80.0-100.0)
--- NOTE | 2020-03-09 12:28 | CT ---
EXAMINATION TYPE: CT abdomen pelvis wo con DATE OF EXAM: 03/09/2020 COMPARISON: 01/10/2020 INDICATION: Left sided flank pain DLP: 1101.4 mGycm, Automated exposure control for dose reduction was used. CONTRAST: 0 mL of Isovue 300. Study performed without Oral Contrast TECHNIQUE: Axial images were obtained from above the diaphragm to the pubic rami in the axial plane a t 5 mm thick sections. Reconstructed images are reviewed on the computer in the coronal plane. FINDINGS: Limited CT sections are obtained the lung bases. There is mild infiltrate at the right lung base. T here appears to be a gastric pull-through on the right. CT ABDOMEN: Liver: Normal Spleen: Normal Pancreas: Normal Adrenal glands: The adrenal glands are normal. Gallbladder: Cholelithiasis. Kidneys: No masses are evident. No hydronephrosis is present. No cysts are present. There is a 0.4 similar calcification nonobstructing in the superior pole right kidney. There is a nonobstructing 0. 6 cm calcification inferior pole left kidney Aorta: Vascular calcification is within the aorta. Inferior vena cava: Normal. CT PELVIS: Electronic device overlies left anterior abdomen. There is a left superior buttocks collec tion measuring 4.1 x 9.2 cm. This is diminished from comparison. Loops of bowel within the abdomen and pelvis are normal. There is evidence of bowel surgery in the ri t lower quadrant. There are loops of bowel which are incompletely distended or lack oral contras t limiting their evaluation. Appendix: Normal as visualized. Urinary bladder: Normal. Genitourinary structures: Prostate is visualized. There is limitation on the lower pelvis due to bila teral hip prosthesis causing beam hardening artifact. Osseous structures: No suspicious lytic or sclerotic lesions. IMPRESSIONS: 1. Diminishing collection left superior buttocks. 2. Right lower lobe infiltrate. Correlate for atelectasis and pneumonia. 3. Nonobstructing renal stones
[2020-03-09 13:29] LABS: Appearance,Urine Cloudy (Clear); Bacteria,Urine Many /hpf; Bilirubin,Urine Negative (Negative); Blood,Urine Small (Negative); Color,Urine Yellow; Glucose,Urine (UA) Negative (Negative); Ketones,Urine Negative (Negative); Leukocyte Esterase,Urine Small (Negative); Mucus,Urine Few /hpf; Nitrite,Urine Negative (Negative); Protein,Urine 1+ (Negative); RBC,Urine 7 /hpf (0-5); Specific Gravity,Urine 1.028 (1.001-1.035); WBC,Urine 7 /hpf (0-5)
[2020-03-09 14:21] VITALS: RESP 18; TEMP 98.1
[2020-03-09 14:36] VITALS: BP 103/71; PULSE 70
== END 2020-03-09 14:36 | disposition home or self-care (01) ==
LOC: EC 10:27
DX: N20.0 Calculus of kidney (principal); F41.9 Anxiety disorder, unspecified; F32.9 Major depressive disorder, single episode, unspecified; Z86.73 Personal history of transient ischemic attack (TIA), and cerebral infarction without residual deficits; Z87.891 Personal history of nicotine dependence; Z86.14 Personal history of Methicillin resistant Staphylococcus aureus infection; Z95.5 Presence of coronary angioplasty implant and graft; Z96.643 Presence of artificial hip joint, bilateral; Z96.612 Presence of left artificial shoulder joint; I10 Essential (primary) hypertension
CPT/HCPCS: 36415; 93005; 80053; 85025; 81001; 74176; 99284; 96374; 96375 ×2; 96376; 96361 ×3; J2270; J2405; J1170

== ENCOUNTER 2020-03-19 12:08 | Inpatient (IN) | payer MEDICARE, OTHER ==
[2020-03-19] MEDS ORDERED: SODIUM CHLORIDE 0.9% 1,000 ML IV STA ×2 (12:35)
[2020-03-19] MEDS ORDERED: DILTIAZEM DRIP BOLUS FROM BAG 1 MG SOLN IV ONE ×2 (12:37→14:08)
[2020-03-19] MEDS ORDERED: cefTRIAXone IN SWFI 1,000 MG/10 ML SYRINGE IVP STA (12:44)
[2020-03-19] MEDS ORDERED: ACETAMINOPHEN TAB 500 MG TAB PO STA (12:44)
--- NOTE | 2020-03-19 12:44 | ED ---
Altered Mental Status HPI - General Chief Complaint: Altered Mental Status Stated Complaint: L hip pain, back pain Time Seen by Provider: 03/19/20 12:20 Source: patient, family, RN notes reviewed, old records reviewed Mode of arrival: wheelchair Limitations: no limitations - History of Present Illness Initial Comments: This is a 54-year-old male history of multiple medical problems including morbid obesity gastric sleeve recent pneumonia and sepsis and deficiency anemia systolic heart failure in the past who presents had A. fib in the past also who presents today with complaints of weakness confusion he's fallen 3 times the last 24 hours complains left hip pain left flank pain. He's had hematuria for 2 days. He is found at triage have a blood pressure of 77 systolic on arrival to emergency treatment area 73/50. He also had a heart rate of about 198 appear to be rapid atrial fibrillation. No chest pain does have shortness of breath and the left flank pain. No overt chills or sweats reported MD Complaint: confusion, other - Related Data Home Medications Medication Instructions Recorded Confirmed Allopurinol [Zyloprim] 300 mg PO DAILY 06/04/16 03/09/20 Cyclobenzaprine [Flexeril] 10 mg PO BID 06/04/16 03/09/20 Escitalopram [Lexapro] 10 mg PO DAILY 06/04/16 03/09/20 Lacosamide [Vimpat] 50 mg PO BID 03/25/18 03/09/20 Furosemide [Lasix] 20 mg PO DAILY 01/08/20 03/09/20 Metoprolol Tartrate [Lopressor] 25 mg PO DAILY 01/08/20 03/09/20 lisinopriL [Zestril] 2.5 mg PO DAILY 01/08/20 03/09/20 Hydrocortisone [Cortef] 10 mg PO HS 03/09/20 03/09/20 Hydrocortisone [Cortef] 20 mg PO DAILY 03/09/20 03/09/20 Pregabalin [Lyrica] 300 mg PO BID 03/09/20 03/09/20 Sildenafil Citrate 100 mg PO DAILY PRN 03/09/20 03/09/20 Previous Rx's Medication Instructions Recorded Omeprazole 40 mg PO BID #60 cap 07/06/19 Zolpidem Tartrate [Ambien] 10 mg PO HS #4 tab 12/15/19 oxyCODONE-APAP 7.5-325MG [Percocet 1 tab PO DAILY PRN #10 tab 12/15/19 7.5-325 mg] Allergies Allergy/AdvReac Type Severity Reaction Status Date / Time No Known Allergies Allergy Verified 03/19/20 12:21 Review of Systems ROS Statement: Those systems with pertinent positive or pertinent negative responses have been documented in the HPI. ROS Other: All systems not noted in ROS Statement are negative. 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 BILATERAL KNEE arthroscopy, BILATERAL HIP replacement, LEFT SHOULDER replacement, LEFT ACHILES TENDON SX., RIGHT BIG TOE took piece out, echocardiolgram, spinal fusion, EGD with dilation., STATES HX OF PNEUMONIA WITH LUNG SURGERY., REPAIR OF HIATAL HERNIA & LYSIS OF ADHESIONS Past Anesthesia/Blood Transfusion Reactions: No Reported Reaction Past Psychological History: Anxiety, Depression Smoking Status: Former smoker Past Alcohol Use History: None Reported Past Drug Use History: None Reported - Past Family History Father Family Medical History: Cancer Additional Family Medical History / Comment(s): lung Mother Family Medical History: Coronary Artery Disease (CAD), Hypertension General Exam - General Exam Comments Initial Comments: This is a well-developed well-nourished awake alert but lethargic male Limitations: no limitations General appearance: alert, lethargic Head exam: Present: atraumatic Eye exam: Present: normal appearance, PERRL, EOMI. Absent: scleral icterus, conjunctival injection, periorbital swelling ENT exam: Present: mucous membranes dry Neck exam: Present: normal inspection, full ROM, other. Absent: tenderness, meningismus, lymphadenopathy Respiratory exam: Present: decreased breath sounds (No stridor JVD or bruits). Absent: respiratory distress, wheezes, rales, rhonchi, stridor Cardiovascular Exam: Present: tachycardia, irregular rhythm, normal heart sounds. Absent: systolic murmur, diastolic murmur, rubs, gallop, clicks GI/Abdominal exam: Present: soft, normal bowel sounds. Absent: distended, tenderness, guarding, rebound, rigid Rectal exam: Present: deferred Extremities exam: Present: full ROM, normal capillary refill, pedal edema. Absent: tenderness, joint swelling, calf tenderness Back exam: Present: normal inspection, CVA tenderness (L). Absent: muscle spasm, paraspinal tenderness, vertebral tenderness Neurological exam: Present: alert, oriented X3, CN II-XII intact Psychiatric exam: Present: normal mood, flat affect Skin exam: Present: warm, dry, intact, normal color. Absent: rash Course Vital Signs 03/19/20 03/19/20 03/19/20 12:15 12:40 13:19 Temperature 102.5 F H Pulse Rate 146 H 200 H 179 H Respiratory 20 16 20 Rate Blood Pressure 77/45 77/51 105/31 O2 Sat by Pulse 94 L 97 98 Oximetry 03/19/20 14:17 Temperature 99.2 F Pulse Rate 163 H Respiratory 17 Rate Blood Pressure 114/99 O2 Sat by Pulse 96 Oximetry - Reevaluation(s) Reevaluation #1: 03/19/20 13:00 Patient was seen in the emergency department by Dr. Jauregui and also the patient appears be responding to the initial fluid bolus. Reevaluation #2: 03/19/20 14:15 Patient's blood pressure has improved heart rate still is bouncing into the 170s. Cardizem will be increased he will continue a fluid bolus. Reevaluation #3: 03/19/20 14:53 Patient does appear to have evidence of sepsis. He did respond to IV fluids with improvement in his blood pressure. Is identified right upper lobe infiltrate on x-ray. Atrial fibrillation is improved with IV Cardizem. Did discuss the case with Dr. Jauregui and with Dr. Espinosa patient be admitted I did discuss case also with the patient and his family. 03/19/20 14:54 The patient is awake alert oriented 3 at this time mentation is improved I also did have improved. Lungs demonstrate no change from initial evaluation. Heart rate is improving after IV Cardizem. Extremity bilaterally present and symmetric Reevaluation #4: 03/19/20 14:58 The case was discussed also with Dr. Saravia Medical Decision Making - Medical Decision Making I did discuss findings with patient family and multiple physicians patient be admitted to ICU reevaluation and treatment of sepsis hypotension and dehydration A. fib RVR. Additionally there is elevation of the troponin. - Lab Data Result diagrams: 03/19/20 12:32 03/19/20 12:32 Lab Results 03/19/20 03/19/20 03/19/20 Range/Units 12:32 12:32 12:32 WBC 2.3 L (3.8-10.6) k/uL RBC 4.40 (4.30-5.90) m/uL Hgb 10.9 L (13.0-17.5) gm/dL Hct 37.6 L (39.0-53.0) % MCV 85.6 (80.0-100.0) fL MCH 24.9 L (25.0-35.0) pg MCHC 29.1 L (31.0-37.0) g/dL RDW 16.5 H (11.5-15.5) % Plt Count 274 (150-450) k/uL Neutrophils % (Manual) 67 % Band Neuts % (Manual) 16 % Lymphocytes % (Manual) 15 % Monocytes % (Manual) 1 % Eosinophils % (Manual) 1 % Neutrophils # (Manual) 1.90 (1.3-7.7) k/uL Lymphocytes # (Manual) 0.35 L (1.0-4.8) k/uL Monocytes # (Manual) 0.02 (0-1.0) k/uL Eosinophils # (Manual) 0.02 (0-0.7) k/uL Nucleated RBCs 0 (0-0) /100 WBC Manual Slide Review Performed Hypochromasia Marked Poikilocytosis Slight Anisocytosis Slight PT 12.9 H (9.0-12.0) sec INR 1.3 H (<1.2) APTT 22.2 (22.0-30.0) sec Sodium 143 (137-145) mmol/L Potassium 4.1 (3.5-5.1) mmol/L Chloride 107 (98-107) mmol/L Carbon Dioxide 28 (22-30) mmol/L Anion Gap 8 mmol/L BUN 25 H (9-20) mg/dL Creatinine 1.21 (0.66-1.25) mg/dL Est GFR (CKD-EPI)AfAm 78 (>60 ml/min/1.73 sqM) Est GFR (CKD-EPI)NonAf 67 (>60 ml/min/1.73 sqM) Glucose 68 L (74-99) mg/dL Plasma Lactic Acid Suresh (0.7-2.0) mmol/L Calcium 8.5 (8.4-10.2) mg/dL Magnesium 1.6 (1.6-2.3) mg/dL Total Bilirubin 0.7 (0.2-1.3) mg/dL AST 28 (17-59) U/L ALT 12 (4-49) U/L Alkaline Phosphatase 131 H (38-126) U/L Creatine Kinase 124 (55-170) U/L Troponin I (0.000-0.034) ng/mL NT-Pro-B Natriuret Pep pg/mL Total Protein 7.0 (6.3-8.2) g/dL Albumin 3.4 L (3.5-5.0) g/dL TSH 1.130 (0.465-4.680) mIU/L 03/19/20 03/19/20 03/19/20 Range/Units 12:32 12:32 12:32 WBC (3.8-10.6) k/uL RBC (4.30-5.90) m/uL Hgb (13.0-17.5) gm/dL Hct (39.0-53.0) % MCV (80.0-100.0) fL MCH (25.0-35.0) pg MCHC (31.0-37.0) g/dL RDW (11.5-15.5) % Plt Count (150-450) k/uL Neutrophils % (Manual) % Band Neuts % (Manual) % Lymphocytes % (Manual) % Monocytes % (Manual) % Eosinophils % (Manual) % Neutrophils # (Manual) (1.3-7.7) k/uL Lymphocytes # (Manual) (1.0-4.8) k/uL Monocytes # (Manual) (0-1.0) k/uL Eosinophils # (Manual) (0-0.7) k/uL Nucleated RBCs (0-0) /100 WBC Manual Slide Review Hypochromasia Poikilocytosis Anisocytosis PT (9.0-12.0) sec INR (<1.2) APTT (22.0-30.0) sec Sodium (137-145) mmol/L Potassium (3.5-5.1) mmol/L Chloride (98-107) mmol/L Carbon Dioxide (22-30) mmol/L Anion Gap mmol/L BUN (9-20) mg/dL Creatinine (0.66-1.25) mg/dL Est GFR (CKD-EPI)AfAm (>60 ml/min/1.73 sqM) Est GFR (CKD-EPI)NonAf (>60 ml/min/1.73 sqM) Glucose (74-99) mg/dL Plasma Lactic Acid Suresh 5.9 H* (0.7-2.0) mmol/L Calcium (8.4-10.2) mg/dL Magnesium (1.6-2.3) mg/dL Total Bilirubin (0.2-1.3) mg/dL AST (17-59) U/L ALT (4-49) U/L Alkaline Phosphatase (38-126) U/L Creatine Kinase (55-170) U/L Troponin I 0.052 H* (0.000-0.034) ng/mL NT-Pro-B Natriuret Pep 219 pg/mL Total Protein (6.3-8.2) g/dL Albumin (3.5-5.0) g/dL TSH (0.465-4.680) mIU/L - EKG Data -: EKG Interpreted by Me EKG Comments: Atrial fibrillation with a rapid ventricular response rate 200 QRS 88 QT since QTC is 240/438 nonspecific septal changes marked ST abnormality noted - Radiology Data Radiology results: report reviewed (Did review the imaging and report evidence right upper lobe infiltrate. CT head neck negative for acute findings), image reviewed Critical Care Time Critical Care Time: Yes Total Critical Care Time: 49 Critical Care Time: 49 minutes of critical care time which includes initial presentation with history physical labs x-rays multiple reevaluation the patient response to therapy multiple discussions with various physicians review of old charting admission orders documentation the above. Disposition Clinical Impression: Right upper lobe pneumonia, Sepsis associated hypotension, Febrile illness, acute, Rapid atrial fibrillation, Elevated troponin, Lactic acidosis, Adrenal insufficiency Disposition: ADMITTED IP TO THIS HOSP Condition: Fair Referrals: Eric Ang DO [Primary Care Provider] - 1-2 days
[2020-03-19] MEDS ORDERED: DILTIAZEM 125 MG in SODIUM CHLORIDE 0.9% 100 ML IV SCH (12:45)
[2020-03-19 13:16] LABS: Albumin 3.4 g/dL (3.5-5.0); Calcium 8.5 mg/dL (8.4-10.2); Magnesium 1.6 mg/dL (1.6-2.3); Potassium 4.1 mmol/L (3.5-5.1); Total Bilirubin 0.7 mg/dL (0.2-1.3)
[2020-03-19 13:17] LABS: Anisocytosis Slight; HCT 37.6 % (39.0-53.0); HGB 10.9 gm/dL (13.0-17.5); Hypochromasia Marked; MCH 24.9 pg (25.0-35.0); MCHC 29.1 g/dL (31.0-37.0); MCV 85.6 fL (80.0-100.0); Mean Platelet Volume 8.8; Platelet Count 274 k/uL (150-450); Poikilocytosis Slight; RDW 16.5 % (11.5-15.5); WBC 2.3 k/uL (3.8-10.6)
[2020-03-19 13:18] LABS: INR 1.3 (<1.2); Partial Thromboplastin Time 22.2 sec (22.0-30.0); Prothrombin Time 12.9 sec (9.0-12.0)
[2020-03-19 13:46] LABS: Nucleated Red Blood Cells 0 /100 WBC (0-0)
[2020-03-19 13:47] LABS: Band Neutrophils % 16 %; Eosinophils # (M) 0.02 k/uL (0-0.7); Lymphocytes # (M) 0.35 k/uL (1.0-4.8); Monocytes # (M) 0.02 k/uL (0-1.0); Neutrophils % (M) 67 %; Total Cells Counted 100
--- NOTE | 2020-03-19 14:07 | XR ---
EXAMINATION TYPE: XR chest 2V DATE OF EXAM: 03/19/2020 COMPARISON: 12/14/2019 INDICATION: Dysrhythmia, multiple falls TECHNIQUE: Frontal and lateral views of the chest are obtained. FINDINGS: The heart size is normal. The pulmonary vasculature is prominent. There is diffuse increased lung markings in the right upper lobe. Correlate for pneumonia. IMPRESSION: 1. Right upper lobe infiltrate. Correlate for pneumonia. Follow-up is recommended.
--- NOTE | 2020-03-19 14:12 | CT ---
EXAMINATION TYPE: CT brain shelia sawyer con DATE OF EXAM: 03/19/2020 COMPARISON: 04/14/2015 HISTORY: Fall CT DLP: 1573.2 mGycm, Automated exposure control for dose reduction was used. CONTRAST: None CT of the brain is performed utilizing 3 mm thick sections through the posterior fossa and 3 mm thick sections through the remaining calvarium. Study is performed within 24 hours of arrival to the hospital. No abnormal hyperdensity is present to suggest an acute intracranial hemorrhage. No mass lesion is evident. No acute infarcts are evident. Ventricles and sulci are appropriate for the patient age. Paranasal sinuses and mastoid air cells within the korcp-my-iero are clear. IMPRESSIONS: 1. Normal CT brain. CT cervical spine. COMPARISON: None CT of the cervical spine is performed in the axial plane at 2 mm thick sections. Reconstructed image s in the coronal, and sagittal plane are reviewed on the computer. Anterior cervical fusion is present C2-3 and C7-T1. There is a kyphosis present centered at approxima tely C7. Laminectomies been performed the 45 possibly 6. Posterior pedicle screws are present on the right and left. There is diffuse loss of disc height throughout the cervical spine. Vertebral body heights are preserved. No spinal canal stenosis is evident. Some uncovertebral joint hypertrophy is present contributing to mild canal narrowing. IMPRESSIONS: 1. No acute osseous abnormality. 2. Postsurgical changes. 3. Mild kyphosis is present in the lower cervical spine.
[2020-03-19] MEDS ORDERED: HYDROCORTISONE SUCCINATE 100 MG/2 ML VIAL IV STA ×2 (14:59→19:20)
[2020-03-19] MEDS ORDERED: HEPARIN SODIUM,PORCINE 5,000 UNIT/ML 1 ML VIAL IV ONE (15:00)
[2020-03-19 15:01] LABS: Glucose,Whole Blood 55 mg/dL (75-99)
[2020-03-19] MEDS ORDERED: NALOXONE 0.4 MG/ML 1 ML VIAL IV PRN ×2 (15:01→17:11)
[2020-03-19] MEDS ORDERED: IPRATROPIUM-ALBUTEROL 3 ML NEB INHALATION PRN (15:01)
[2020-03-19] MEDS ORDERED: oxyCODONE-APAP 7.5-325MG 1 EACH TAB PO PRN (15:03)
[2020-03-19] MEDS ORDERED: NON FORMULARY DRUG (Sildenafil Citrate [Sildenafil Citrate] 100 MG Tablet) PO PRN (15:03)
[2020-03-19] MEDS: HEPARIN SOD,PORK IN 0.45% NACL 25,000 UNIT in 0.45% NACL 1 250ML.BAG IV SCH (15:20)
[2020-03-19 15:22] LABS: Glucose,Whole Blood 159 mg/dL (75-99)
[2020-03-19] MEDS ORDERED: SODIUM CHLORIDE 0.9% 2,000 ML IV STA (16:03)
[2020-03-19 16:18] LABS: Appearance,Urine Cloudy (Clear); Bacteria,Urine Moderate /hpf; Bilirubin,Urine Negative (Negative); Blood,Urine Large (Negative); Color,Urine Yellow; Glucose,Urine (UA) Negative (Negative); Ketones,Urine Negative (Negative); Leukocyte Esterase,Urine Large (Negative); Nitrite,Urine Negative (Negative); PH, Urine 5.5 (5.0-8.0); Protein,Urine 1+ (Negative); RBC,Urine >182 /hpf (0-5); Specific Gravity,Urine 1.013 (1.001-1.035); Squamous Epithelial Cell,Urine <1 /hpf (0-4); Urobilinogen,Urine <2.0 mg/dL (<2.0); WBC,Urine 17 /hpf (0-5)
[2020-03-19 16:37] LABS: Glucose,Whole Blood 68 mg/dL (75-99)
[2020-03-19 16:51] LABS: Glucose,Whole Blood 69 mg/dL (75-99)
[2020-03-19 17:07] LABS: Glucose,Whole Blood 84 mg/dL (75-99)
[2020-03-19] MEDS: INSULIN ASPART (NovoLOG) 100 UNIT/ML VIAL SQ SCH (17:39)
[2020-03-19 17:40] LABS: Glucose,Whole Blood 124 mg/dL (75-99)
[2020-03-19] MEDS: NOREPINEPHRINE 8 MG in SODIUM CHLORIDE 0.9% 250 ML IV SCH ×2 (17:40→19:57)
[2020-03-19] MEDS: DILTIAZEM 125 MG in SODIUM CHLORIDE 0.9% 100 ML IV SCH (17:42)
[2020-03-19] MEDS: PANTOPRAZOLE 40 MG TABLET PO SCH (17:43)
--- NOTE | 2020-03-19 18:20 | HP ---
HISTORY AND PHYSICAL DATE OF SERVICE: 03/19/2020 CHIEF COMPLAINT: Weakness and change in mental status and hypotension. HISTORY OF PRESENT ILLNESS: This is a 54-year-old gentleman with a past medical history of CVA, TIA, GERD, hypertension, DJD, history of pneumonia, hiatal hernia, gout, peripheral neuropathy, history of back surgery, bariatric surgery, anxiety, depression, being followed by Dr. Eric Ang in the outpatient setting. He was complaining of weakness. The patient apparently previously had pneumonia. The patient was found to be confused. Patient had multiple falls at home and the brought the patient to the hospital and the patient was admitted for further evaluation and treatment. Patient was found to have atrial fibrillation with fast ventricular rate, rate around 160. The patient was given Cardizem and IV fluids also. Cardiology has been consulted. Chest x-ray showed right upper lobe pneumonia. Broad-spectrum IV antibiotics were given for possible sepsis and severe hypotension. Blood pressure was 74/55 and IV bolus was also being given in the ER. Currently the patient is mildly confused, unable to give a coherent history. Most of the history is taken from my discussion with staff and also discussion with the ER physician and discussion with the at the bedside. 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 PAST MEDICAL HISTORY: History of CVA, TIA, GERD, hypertension, DJD, history of pneumonia, hiatal hernia, back surgery, history of cardiac catheterization, esophageal stricture previously. MEDICATIONS: Home medications are oxycodone, Zestril, Ambien, sildenafil, Lyrica, omeprazole, Lopressor, Vimpat, Cortef, Lasix, Lexapro, Flexeril, Zyloprim. Doses are reviewed. ALLERGIES: None. FAMILY HISTORY: History of CAD, hypertension, lung disease. SOCIAL HISTORY: Previous history of smoking. No history of current smoking or alcohol intake. REVIEW OF SYSTEMS: ENT: Diminished hearing and vision. CARDIOVASCULAR: No angina or palpitations. RESPIRATORY: As mentioned earlier. GI: As mentioned earlier. : No dysuria. NERVOUS SYSTEM: As mentioned earlier. ALLERGY/IMMUNOLOGY: No asthma or hayfever. MUSCULOSKELETAL: As mentioned earlier. HEMATOLOGY/ONCOLOGY: No history of anemia. ENDOCRINE: No history of diabetes or hypothyroidism. CONSTITUTIONAL: As mentioned earlier. DERMATOLOGY: Negative. RHEUMATOLOGY: Negative. PSYCHIATRY: As mentioned earlier. PHYSICAL EXAMINATION: GENERAL: Patient is alert and oriented times two. VITAL SIGNS: Pulse is 163 and regular, blood pressure 140/90, respirations 17, temperature 99.2, T-max 102.5, pulse ox 96% on room air HEENT: Conjunctivae normal. Oral mucosa moist. NECK: No jugular venous distention. No carotid bruits. No lymph node enlargement. RESPIRATORY: Breath sounds diminished at the bases. A few scattered rhonchi and crackles. HEART: S1 and S2, muffled. No S3 or S4. ABDOMEN: Soft, no tenderness. Obese. No masses palpable. EXTREMITIES: No edema, no swelling. NERVOUS: Higher functions as mentioned earlier. Moves all four limbs. No focal motor or sensory deficits. LYMPHATICS: No lymph nodes palpable in the neck or axillae. SKIN: No rashes. JOINTS: No acute deformity arthropathy. LAB STUDIES: WBC 2.3, hemoglobin 10, platelets are 274 and PT is 12.9, INR is 1.3. Plasma lactic acid 5.9. Troponin 0.052. ASSESSMENT: 1. Acute right upper lobe pneumonia with possible sepsis. 2. Severe sepsis and hypotension secondary to septic shock. 3. Atrial fibrillation with fast ventricular rate. 4. Bicytopenia with neutropenia, as well as anemia. 5. Elevated lactic acid secondary to sepsis. 6. Hypoglycemia secondary to sepsis, possibly. 7. Troponin 0.05, indeterminate. 8. Recent history of Shobha gangrene. 9. History of esophageal stricture with multiple dilatations. 10.History of gastroesophageal reflux disease. 11.History of cerebrovascular accident and transient ischemic attack. 12.History of hypertension. 13.History of degenerative joint disease. 14.History of pneumonia. 15.History of hiatal hernia. 16.History of gout. 17.History of bilateral peripheral neuropathy. 18.History of chronic back pain and degenerative joint disease. 19.History of constipation. 20.History of MRSA. 21.History of bariatric surgery. 22.History of pain pump implantation. 23.History of gastric sleeve. 24.History of anxiety and depression. 25.Remote history of nicotine dependence. 26.Obesity with body mass of 30.8. RECOMMENDATIONS AND DISCUSSION:: In this 54-year-old gentleman who presented with multiple complex medical issues, we will monitor the patient closely. We will continue IV fluids. Will monitor the patient in ICU. Dr. Espinosa will be consulted for ICU management, as well as Dr. Piedra for Infectious Disease management, as well as Cardiology. Patient was given Cardizem drip and with IV boluses the blood pressure is not coming up. Recommend amiodarone bolus and drip in consultation with Cardiology. Otherwise, repeat labs. The patient has multiple abnormal labs which will be followed up. We will monitor. The chest x-ray was reviewed. COVID-19 test is being sought also, even though the patient does not report any contact with infected individuals recently, according to the . Overall prognosis extremely guarded. Further recommendations to follow. See orders for details. Symptomatic treatment will be provided. MMODL / IJN: [id number] /
[2020-03-19 18:37] LABS: C Reactive Protein 68.1 mg/L (<10.0)
[2020-03-19 18:39] LABS: Glucose,Whole Blood 147 mg/dL (75-99)
[2020-03-19 19:12] LABS: Glucose,Whole Blood 135 mg/dL (75-99)
[2020-03-19] MEDS ORDERED: HYDROCORTISONE SUCCINATE 100 MG/2 ML VIAL ONE (19:18)
[2020-03-19 19:19] LABS: ABG Base Excess -1.6 mmol/L; ABG HCO3 25 mmol/L (21-25); ABG PCO2 52 mmHg (35-45); ABG PH 7.29 (7.35-7.45); ABG PO2 70 mmHg (83-108); ABG TCO2 27 mmol/L (19-24); Allen Test Performed? Yes
[2020-03-19] MEDS ORDERED: TERBUTALINE FOR EXTRAVASATION 1 MG/ML VIAL SQ STA (19:26)
--- NOTE | 2020-03-19 19:40 | ED ---
Medical Decision Making - Lab Data Result diagrams: 03/19/20 12:32 03/19/20 12:32 Lab Results 03/19/20 03/19/20 03/19/20 Range/Units 12:32 12:32 12:32 WBC 2.3 L (3.8-10.6) k/uL RBC 4.40 (4.30-5.90) m/uL Hgb 10.9 L (13.0-17.5) gm/dL Hct 37.6 L (39.0-53.0) % MCV 85.6 (80.0-100.0) fL MCH 24.9 L (25.0-35.0) pg MCHC 29.1 L (31.0-37.0) g/dL RDW 16.5 H (11.5-15.5) % Plt Count 274 (150-450) k/uL Neutrophils % (Manual) 67 % Band Neuts % (Manual) 16 % Lymphocytes % (Manual) 15 % Monocytes % (Manual) 1 % Eosinophils % (Manual) 1 % Neutrophils # (Manual) 1.90 (1.3-7.7) k/uL Lymphocytes # (Manual) 0.35 L (1.0-4.8) k/uL Monocytes # (Manual) 0.02 (0-1.0) k/uL Eosinophils # (Manual) 0.02 (0-0.7) k/uL Nucleated RBCs 0 (0-0) /100 WBC Manual Slide Review Performed Hypochromasia Marked Poikilocytosis Slight Anisocytosis Slight PT 12.9 H (9.0-12.0) sec INR 1.3 H (<1.2) APTT 22.2 (22.0-30.0) sec D-Dimer (<0.60) mg/L FEU Sodium 143 (137-145) mmol/L Potassium 4.1 (3.5-5.1) mmol/L Chloride 107 (98-107) mmol/L Carbon Dioxide 28 (22-30) mmol/L Anion Gap 8 mmol/L BUN 25 H (9-20) mg/dL Creatinine 1.21 (0.66-1.25) mg/dL Est GFR (CKD-EPI)AfAm 78 (>60 ml/min/1.73 sqM) Est GFR (CKD-EPI)NonAf 67 (>60 ml/min/1.73 sqM) Glucose 68 L (74-99) mg/dL POC Glucose (mg/dL) (75-99) mg/dL POC Glu Plant Clerk ID Lactic Ac Sepsis Rflx Plasma Lactic Acid Suresh (0.7-2.0) mmol/L Calcium 8.5 (8.4-10.2) mg/dL Magnesium 1.6 (1.6-2.3) mg/dL Total Bilirubin 0.7 (0.2-1.3) mg/dL AST 28 (17-59) U/L ALT 12 (4-49) U/L Alkaline Phosphatase 131 H (38-126) U/L Creatine Kinase 124 (55-170) U/L Troponin I (0.000-0.034) ng/mL NT-Pro-B Natriuret Pep pg/mL Total Protein 7.0 (6.3-8.2) g/dL Albumin 3.4 L (3.5-5.0) g/dL TSH 1.130 (0.465-4.680) mIU/L Influenza Type A RNA (Not Detectd) Influenza Type B (PCR) (Not Detectd) 03/19/20 03/19/20 03/19/20 Range/Units 12:32 12:32 12:32 WBC (3.8-10.6) k/uL RBC (4.30-5.90) m/uL Hgb (13.0-17.5) gm/dL Hct (39.0-53.0) % MCV (80.0-100.0) fL MCH (25.0-35.0) pg MCHC (31.0-37.0) g/dL RDW (11.5-15.5) % Plt Count (150-450) k/uL Neutrophils % (Manual) % Band Neuts % (Manual) % Lymphocytes % (Manual) % Monocytes % (Manual) % Eosinophils % (Manual) % Neutrophils # (Manual) (1.3-7.7) k/uL Lymphocytes # (Manual) (1.0-4.8) k/uL Monocytes # (Manual) (0-1.0) k/uL Eosinophils # (Manual) (0-0.7) k/uL Nucleated RBCs (0-0) /100 WBC Manual Slide Review Hypochromasia Poikilocytosis Anisocytosis PT (9.0-12.0) sec INR (<1.2) APTT (22.0-30.0) sec D-Dimer (<0.60) mg/L FEU Sodium (137-145) mmol/L Potassium (3.5-5.1) mmol/L Chloride (98-107) mmol/L Carbon Dioxide (22-30) mmol/L Anion Gap mmol/L BUN (9-20) mg/dL Creatinine (0.66-1.25) mg/dL Est GFR (CKD-EPI)AfAm (>60 ml/min/1.73 sqM) Est GFR (CKD-EPI)NonAf (>60 ml/min/1.73 sqM) Glucose (74-99) mg/dL POC Glucose (mg/dL) (75-99) mg/dL POC Glu Plant Clerk ID Lactic Ac Sepsis Rflx Plasma Lactic Acid Suresh 5.9 H* (0.7-2.0) mmol/L Calcium (8.4-10.2) mg/dL Magnesium (1.6-2.3) mg/dL Total Bilirubin (0.2-1.3) mg/dL AST (17-59) U/L ALT (4-49) U/L Alkaline Phosphatase (38-126) U/L Creatine Kinase (55-170) U/L Troponin I 0.052 H* (0.000-0.034) ng/mL NT-Pro-B Natriuret Pep 219 pg/mL Total Protein (6.3-8.2) g/dL Albumin (3.5-5.0) g/dL TSH (0.465-4.680) mIU/L Influenza Type A RNA (Not Detectd) Influenza Type B (PCR) (Not Detectd) 03/19/20 03/19/20 03/19/20 Range/Units 12:32 13:30 14:40 WBC (3.8-10.6) k/uL RBC (4.30-5.90) m/uL Hgb (13.0-17.5) gm/dL Hct (39.0-53.0) % MCV (80.0-100.0) fL MCH (25.0-35.0) pg MCHC (31.0-37.0) g/dL RDW (11.5-15.5) % Plt Count (150-450) k/uL Neutrophils % (Manual) % Band Neuts % (Manual) % Lymphocytes % (Manual) % Monocytes % (Manual) % Eosinophils % (Manual) % Neutrophils # (Manual) (1.3-7.7) k/uL Lymphocytes # (Manual) (1.0-4.8) k/uL Monocytes # (Manual) (0-1.0) k/uL Eosinophils # (Manual) (0-0.7) k/uL Nucleated RBCs (0-0) /100 WBC Manual Slide Review Hypochromasia Poikilocytosis Anisocytosis PT (9.0-12.0) sec INR (<1.2) APTT (22.0-30.0) sec D-Dimer 25.02 H (<0.60) mg/L FEU Sodium (137-145) mmol/L Potassium (3.5-5.1) mmol/L Chloride (98-107) mmol/L Carbon Dioxide (22-30) mmol/L Anion Gap mmol/L BUN (9-20) mg/dL Creatinine (0.66-1.25) mg/dL Est GFR (CKD-EPI)AfAm (>60 ml/min/1.73 sqM) Est GFR (CKD-EPI)NonAf (>60 ml/min/1.73 sqM) Glucose (74-99) mg/dL POC Glucose (mg/dL) (75-99) mg/dL POC Glu Plant Clerk ID Lactic Ac Sepsis Rflx Y Plasma Lactic Acid Suresh (0.7-2.0) mmol/L Calcium (8.4-10.2) mg/dL Magnesium (1.6-2.3) mg/dL Total Bilirubin (0.2-1.3) mg/dL AST (17-59) U/L ALT (4-49) U/L Alkaline Phosphatase (38-126) U/L Creatine Kinase (55-170) U/L Troponin I (0.000-0.034) ng/mL NT-Pro-B Natriuret Pep pg/mL Total Protein (6.3-8.2) g/dL Albumin (3.5-5.0) g/dL TSH (0.465-4.680) mIU/L Influenza Type A RNA Not Detected (Not Detectd) Influenza Type B (PCR) Not Detected (Not Detectd) 03/19/20 Range/Units 14:59 WBC (3.8-10.6) k/uL RBC (4.30-5.90) m/uL Hgb (13.0-17.5) gm/dL Hct (39.0-53.0) % MCV (80.0-100.0) fL MCH (25.0-35.0) pg MCHC (31.0-37.0) g/dL RDW (11.5-15.5) % Plt Count (150-450) k/uL Neutrophils % (Manual) % Band Neuts % (Manual) % Lymphocytes % (Manual) % Monocytes % (Manual) % Eosinophils % (Manual) % Neutrophils # (Manual) (1.3-7.7) k/uL Lymphocytes # (Manual) (1.0-4.8) k/uL Monocytes # (Manual) (0-1.0) k/uL Eosinophils # (Manual) (0-0.7) k/uL Nucleated RBCs (0-0) /100 WBC Manual Slide Review Hypochromasia Poikilocytosis Anisocytosis PT (9.0-12.0) sec INR (<1.2) APTT (22.0-30.0) sec D-Dimer (<0.60) mg/L FEU Sodium (137-145) mmol/L Potassium (3.5-5.1) mmol/L Chloride (98-107) mmol/L Carbon Dioxide (22-30) mmol/L Anion Gap mmol/L BUN (9-20) mg/dL Creatinine (0.66-1.25) mg/dL Est GFR (CKD-EPI)AfAm (>60 ml/min/1.73 sqM) Est GFR (CKD-EPI)NonAf (>60 ml/min/1.73 sqM) Glucose (74-99) mg/dL POC Glucose (mg/dL) 55 L (75-99) mg/dL POC Glu Plant Clerk ID Virgie Etienne Lactic Ac Sepsis Rflx Plasma Lactic Acid Suresh (0.7-2.0) mmol/L Calcium (8.4-10.2) mg/dL Magnesium (1.6-2.3) mg/dL Total Bilirubin (0.2-1.3) mg/dL AST (17-59) U/L ALT (4-49) U/L Alkaline Phosphatase (38-126) U/L Creatine Kinase (55-170) U/L Troponin I (0.000-0.034) ng/mL NT-Pro-B Natriuret Pep pg/mL Total Protein (6.3-8.2) g/dL Albumin (3.5-5.0) g/dL TSH (0.465-4.680) mIU/L Influenza Type A RNA (Not Detectd) Influenza Type B (PCR) (Not Detectd) Disposition Clinical Impression: Right upper lobe pneumonia, Sepsis associated hypotension, Febrile illness, acute, Rapid atrial fibrillation, Elevated troponin, Lactic acidosis, Adrenal i nsufficiency Disposition: ADMITTED IP TO THIS HOSP Condition: Fair Procedures - Spivey Protocol (Time Out) Procedure Performed:: Left external jugular venous catheter Performing Provider: Wilner Hubbard Timeout Date: 03/19/20 Timeout Time: 19:20 Patient Identification (2 identifiers required): Chart, Arm Band, Name Site Marked: Not Applicable Final Confirmation: Confirmed w/Provider - Procedures Initial comment: Patient did require better IV access. The left external jugular 18-gauge was placed by me without difficulty using 1% Xylocaine plain for local anesthetic 2 inch catheter. Blood return was obtained. Flushed easily. The patient did tolerate this well. He was sutured in place with the appropriate tape apparatus the patient did tolerate this well. Of note the patient blood pressure was noted be adequate at this time.
[2020-03-19 20:01] LABS: Glucose,Whole Blood 127 mg/dL (75-99)
[2020-03-19] MEDS ORDERED: ONDANSETRON 4 MG/2 ML VIAL IVP PRN (20:27)
[2020-03-19 20:37] LABS: ABG Base Excess 0.1 mmol/L; ABG HCO3 27 mmol/L (21-25); ABG Oxygen Saturation 97.5 % (94-97); ABG PCO2 54 mmHg (35-45); ABG PO2 122 mmHg (83-108); ABG TCO2 28 mmol/L (19-24); Allen Test Performed? Yes
[2020-03-19] MEDS ORDERED: propofoL 100 ML IV ONE (20:47)
[2020-03-19] MEDS ORDERED: HYDROCORTISONE 10 MG TAB PO SCH (21:00)
--- NOTE | 2020-03-19 21:29 | XR ---
EXAMINATION TYPE: XR chest 1V portable DATE OF EXAM: 03/19/2020 COMPARISON: Today HISTORY: Tube placement TECHNIQUE: FINDINGS: There is endotracheal tube 3.5 cm from the nurys. There is some infiltrate and atelectasis right lung base. There is no heart failure. There is nasogastric tube in the stomach. There are ches t leads. Left lung is clear. IMPRESSION: There is some new mild infiltrate and atelectasis right lung base compared to the exam 7 hours ago. No heart failure.
[2020-03-19] MEDS ORDERED: VANCOMYCIN IV PER PHARMACY 1 EACH MISC MISCELLANE PRN (21:34)
[2020-03-19 21:36] LABS: ABG Base Excess 0.1 mmol/L; ABG HCO3 26 mmol/L (21-25); ABG Oxygen Saturation 98.8 % (94-97); ABG PCO2 45 mmHg (35-45); ABG PH 7.36 (7.35-7.45); ABG PO2 181 mmHg (83-108); ABG TCO2 27 mmol/L (19-24); Allen Test Performed? Yes
[2020-03-19] MEDS ORDERED: VANCOMYCIN 1,750 MG in SODIUM CHLORIDE 0.9% 500 ML 500 ML IVPB STA (21:38)
[2020-03-19] MEDS ORDERED: VANCOMYCIN 2,000 MG in SODIUM CHLORIDE 0.9% 500 ML 500 ML IVPB ONE (21:45)
[2020-03-19] MEDS: HEPARIN SODIUM,PORCINE 5,000 UNIT/ML 1 ML VIAL IV PRN (22:14)
[2020-03-19 22:59] LABS: Ferritin 49.9 ng/mL (22.0-322.0)
[2020-03-19] MEDS: SODIUM CHLORIDE 0.9% 1,000 ML IV SCH (23:11)
[2020-03-19 23:49] LABS: Glucose,Whole Blood 151 mg/dL (75-99)
[2020-03-19 23:54] LABS: Appearance,Urine Clear (Clear); Bacteria,Urine Occasional /hpf; Bilirubin,Urine Negative (Negative); Blood,Urine Moderate (Negative); Color,Urine Light Yellow; Glucose,Urine (UA) Negative (Negative); Ketones,Urine Negative (Negative); Leukocyte Esterase,Urine Large (Negative); Mucus,Urine Rare /hpf; Nitrite,Urine Negative (Negative); PH, Urine 5.5 (5.0-8.0); Protein,Urine Negative (Negative); RBC,Urine 4 /hpf (0-5); Specific Gravity,Urine 1.004 (1.001-1.035); Squamous Epithelial Cell,Urine <1 /hpf (0-4); Urobilinogen,Urine <2.0 mg/dL (<2.0); WBC,Urine 9 /hpf (0-5)
--- NOTE | 2020-03-20 00:35 | CT ---
EXAMINATION TYPE: CT angio chest DATE OF EXAM: 03/20/2020 COMPARISON: 02/25/2018 HISTORY: PE CT DLP: 781.6 mGycm Automated exposure control for dose reduction was used. CONTRAST: Performed with IV Contrast, patient injected with 100 mL of Isovue 370. There are 3-D post processed images. There is endotracheal tube. There is extensive airspace consolidation in the right lung. There is apparent gastric pull-through with nasogastric tube in the right paraspinal region and fluid -filled neoesophagus. Exam is limited by artifact. There is some infiltrate and atelectasis left post erior lung base. I see no filling defects in the pulmonary arteries. Heart and mediastinum are deviated slightly to th e right side. Thoracic aorta is intact. There is no aneurysm or dissection. I see no mediastinal dheeraj opathy. There is elevated right diaphragm. I see no sign of a bronchial obstruction. There is spurrin g in the thoracic spine. IMPRESSION: No evidence of pulmonary embolism. Extensive consolidation and atelectasis right lower lobe with volu me loss. This appears new compared to abdomen CT scan 03/09/2020. Mild atelectasis left lower lobe brent ears new compared to old exam also.
[2020-03-20] MEDS: SODIUM CHLORIDE 0.9% 1,000 ML IV SCH ×2 (01:17→16:52)
[2020-03-20] MEDS: CYCLOBENZAPRINE 10 MG TAB PO SCH ×3 (01:18→20:48)
[2020-03-20] MEDS: LACOSAMIDE 50 MG TABLET PO SCH ×3 (01:19→20:48)
[2020-03-20] MEDS: ZOLPIDEM 10 MG TAB PO SCH ×2 (01:19→20:48)
[2020-03-20] MEDS: DOCUSATE 100 MG CAP PO SCH ×3 (01:19→20:48)
[2020-03-20] MEDS: PREGABALIN 100 MG CAP PO SCH ×3 (01:19→20:48)
[2020-03-20] MEDS: INSULIN ASPART (NovoLOG) 100 UNIT/ML VIAL SQ SCH ×7 (01:25→20:47)
[2020-03-20 01:35] LABS: Glucose,Whole Blood 151 mg/dL (75-99)
[2020-03-20] MEDS: CHLORHEXIDINE GLUCONATE 15 ML CUP MUCOUS MEM SCH ×3 (01:48→20:45)
[2020-03-20] MEDS: CEFEPIME 1 GM in SODIUM CHLORIDE 0.9% 50 ML IVPB SCH ×2 (01:49→10:15)
[2020-03-20] MEDS: HYDROCORTISONE SUCCINATE 100 MG/2 ML VIAL IV SCH ×3 (01:49→16:56)
[2020-03-20] MEDS: DILTIAZEM 125 MG in SODIUM CHLORIDE 0.9% 100 ML IV SCH ×2 (03:01→16:52)
[2020-03-20 04:07] LABS: Glucose,Whole Blood 148 mg/dL (75-99)
[2020-03-20 04:39] LABS: Anisocytosis Slight; HCT 27.1 % (39.0-53.0); Hypochromasia Marked; MCH 23.9 pg (25.0-35.0); MCHC 28.4 g/dL (31.0-37.0); MCV 84.2 fL (80.0-100.0); Mean Platelet Volume 9.4; Platelet Count 209 k/uL (150-450); Poikilocytosis Slight; RBC 3.22 m/uL (4.30-5.90); RDW 17.1 % (11.5-15.5)
[2020-03-20 05:00] LABS: HGB 7.7 gm/dL (13.0-17.5)
[2020-03-20 05:07] LABS: African American GFR (CKD) >90 (>60 ml/min/1.73 sqM); Anion Gap 8 mmol/L; Blood Urea Nitrogen 22 mg/dL (9-20); Calcium 6.8 mg/dL (8.4-10.2); Carbon Dioxide 23 mmol/L (22-30); Chloride 112 mmol/L (98-107); Glucose 142 mg/dL (74-99); Non-African American GFR(CKD) 80 (>60 ml/min/1.73 sqM); Potassium 3.8 mmol/L (3.5-5.1); Sodium 143 mmol/L (137-145)
[2020-03-20 05:07] LABS: ABG Base Excess -0.9 mmol/L; ABG HCO3 24 mmol/L (21-25); ABG Oxygen Saturation 95.6 % (94-97); ABG PCO2 41 mmHg (35-45); ABG PH 7.38 (7.35-7.45); ABG PO2 82 mmHg (83-108); ABG TCO2 26 mmol/L (19-24); Allen Test Performed? Yes
[2020-03-20] MEDS ORDERED: Potassium Replacement Protocol 1 EACH MISC MISCELLANE PRN (05:31)
[2020-03-20 05:50] LABS: Band Neutrophils % 16 %; Lymphocytes # (M) 0.88 k/uL (1.0-4.8); Monocytes # (M) 0.22 k/uL (0-1.0); Neutrophils % (M) 79 %; Nucleated Red Blood Cells 0 /100 WBC (0-0); Total Cells Counted 200
[2020-03-20 05:51] LABS: Toxic Vacuolation Present
[2020-03-20] MEDS ORDERED: POTASSIUM BICARBONATE/CIT AC 20 MEQ TABLET.EFF NG-TUBE SCH (06:00)
[2020-03-20 06:05] LABS: Anisocytosis Slight; HCT 33.8 % (39.0-53.0); Hypochromasia Marked; MCH 24.7 pg (25.0-35.0); MCHC 29.2 g/dL (31.0-37.0); MCV 84.7 fL (80.0-100.0); Mean Platelet Volume 9.3; Platelet Count 277 k/uL (150-450); Poikilocytosis Slight; RBC 3.99 m/uL (4.30-5.90); RDW 16.5 % (11.5-15.5); WBC 32.8 k/uL (3.8-10.6)
[2020-03-20 06:13] LABS: HGB 9.9 gm/dL (13.0-17.5)
[2020-03-20] MEDS: PANTOPRAZOLE 40 MG TABLET PO SCH ×2 (06:43→16:57)
[2020-03-20] MEDS: HEPARIN SODIUM,PORCINE 5,000 UNIT/ML 1 ML VIAL IV PRN (06:56)
--- NOTE | 2020-03-20 07:53 | XR ---
EXAMINATION TYPE: XR chest 1V portable DATE OF EXAM: 03/20/2020 COMPARISON: 03/19/2020 INDICATION: Tube placement TECHNIQUE: Single frontal view of the chest is obtained. Patient is rotated to the right. FINDINGS: The heart size is normal. The pulmonary vasculature is normal. There is a scattered amount of infiltrate to the right lung which is stable. Endotracheal tube tip is above the nurys. Nasogastric tube transverses the thorax. IMPRESSION: 1. Stable scattered right lung infiltrates. 2. Lines and catheters discussed above.
[2020-03-20 07:55] LABS: Glucose,Whole Blood 133 mg/dL (75-99)
[2020-03-20] MEDS: HEPARIN SOD,PORK IN 0.45% NACL 25,000 UNIT in 0.45% NACL 1 250ML.BAG IV SCH (08:29)
[2020-03-20] MEDS ORDERED: IPRATROPIUM-ALBUTEROL 3 ML NEB INHALATION PRN (08:32)
[2020-03-20] MEDS ORDERED: CISATRACURIUM 2 MG/ML 5 ML VIAL IV ONE (08:39)
--- NOTE | 2020-03-20 08:56 | P.CNPUL ---
History of Present Illness Consult date: 03/20/20 Requesting physician: Edgar Jauregui Reason for consult: pneumonia, abnormal CXR/CT Chief complaint: Altered mental status History of present illness: 54-year-old -Chinese male with morbid obesity, history of gastric sleeve surgery in December 2019, recent episode of pneumonia with sepsis, chronic anemia, CHF with systolic dysfunction, who presented to the emergency department on 03/19/2020 evaluation of mental status, weakness, confusion, falls. Apparently patient sustained 3 falls at home and appeared to 24 hours and started complaining of left hip pain and left flank pain. In addition patient had hematuria for 2 days prior to presentation. He was hypotensive on presentation was systolic in the 70s, in atrial fibrillation with a rapid ventricular response with a rate of 198, shortness of breath and left flank pain. CT of the head showed normal CT brain, computed tomography scan of the cervical spine showed postsurgical changes, mild kyphosis in the lower cervical spine. Chest x-ray showed a right upper lobe infiltrate. Work showed a neutropenia with white blood cell count of 2.3, hemoglobin of 10.9, INR was 1.3, d-dimer was 25.02, elected lites are within normal limits, B1 is 25 creatinine is 1.21, plasma lactic acid was elevated at 5.9, pro-calcitonin was significa ntly elevated at 64.39, proBNP is 219, urinalysis showed evidence of urinary tract infection, influenza screen was negative. He was febrile in the emergency department with a temp of 102.5F, was fluid resuscitated with a total of 3 L and fluid boluses, he was started on the norepinephrine for blood pressure support, Cardizem for rate control and heparin infusion for anticoagulation. Apparently patient had the 3 episodes of vomiting. Denied any abdominal pain. Abdomen is soft, nontender. Has a history of chronic back pain, and has a pain pump inserted in his left lower abdomen. Patient was transferred to the ICU, and later in the evening on 03/19/2020 became increasingly more lethargic, and blood gas showed pO2 of 70, pCO2 of 52, and pH of 7.29, and patient was intubated per [facility]. Postintubation blood gases showed a pO2 of 122, pCO2 54, and pH of 7.30. Current vent settings are assist-control mode rate of 20, tidal volume 550, FiO2 of 50% and PEEP of 5. Patient is currently sedated, with the depressive and, at 20 mcg/kg/m, norepinephrine infusing at 5 mics per minute, 0.9 normal saline at a rate of 125 ML per hour, Cardizem and at 5 mg per hour, and heparin per weight-based protocol. Patient did convert to sinus rhythm, with a controlled rate. Seen in the intensive care unit, sedated, and mechanically ventilated, he is on broad-spectrum antibiotics currently with the therapy, vancomycin. Blood cultures have been sent, pending, urine culture sent pending. Kelley significantly elevated and CT chest was obtained showing no evidence of pulmonary embolism and extensive consolidation and atelectasis right lower lobe with volume loss. Mild atelectasis in the left lower lobe appears new compared to old CT from 03/09/2020. Review of Systems All systems: negative Constitutional: Reports fatigue, Reports fever, Reports lethargy, Reports weakness, Denies chills Eyes: denies blurred vision, denies pain Ears, nose, mouth and throat: Denies headache, Denies sore throat Cardiovascular: Reports irregular heart beat, Reports shortness of breath, Denies chest pain Respiratory: Reports dyspnea, Denies cough Gastrointestinal: Denies abdominal pain, Denies diarrhea, Denies nausea, Denies vomiting Musculoskeletal: Denies myalgias Integumentary: Denies pruritus, Denies rash Neurological: Denies numbness, Denies weakness Psychiatric: Denies anxiety, Denies depression Endocrine: Denies fatigue, Denies weight change Past Medical History Past Medical History: Atrial Fibrillation, COPD, CVA/TIA, GERD/Reflux, Hyperl ipidemia, Hypertension, Osteoarthritis (OA), Pneumonia, Sleep Apnea/CPAP/BIPAP Additional Past Medical History / Comment(s): hiatal hernia, gout, neuropathy marta legs and feet- states feet are numb, some numbness in legs & tingling in hands., chronic back pain., constipation., dysphagia-hx of EGD with dilation, 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 BILATERAL KNEE arthroscopy, BILATERAL HIP replacement, LEFT SHOULDER replacement, LEFT ACHILES TENDON SX., RIGHT BIG TOE took piece out, echocardiolgram, spinal fusion, EGD with dilation., STATES HX OF PNEUMONIA WITH LUNG SURGERY., REPAIR OF HIATAL HERNIA & LYSIS OF ADHESIONS Past Anesthesia/Blood Transfusion Reactions: No Reported Reaction Past Psychological History: Anxiety, Depression Smoking Status: Former smoker Past Alcohol Use History: None Reported Additional Past Alcohol Use History / Comment(s): quit smoking 2017, smoked since age 21, 1 PPD Past Drug Use History: None Reported - Past Family History Father Family Medical History: Cancer Additional Family Medical History / Comment(s): lung Mother Family Medical History: Coronary Artery Disease (CAD), Hypertension Medications and Allergies Home Medications Medication Instructions Recorded Confirmed Type Allopurinol [Zyloprim] 300 mg PO DAILY 06/04/16 03/19/20 History Cyclobenzaprine [Flexeril] 10 mg PO BID 06/04/16 03/19/20 History Escitalopram [Lexapro] 10 mg PO DAILY 06/04/16 03/19/20 History Lacosamide [Vimpat] 50 mg PO BID 03/25/18 03/19/20 History Omeprazole 40 mg PO BID #60 cap 07/06/19 03/19/20 Rx Zolpidem Tartrate [Ambien] 10 mg PO HS #4 tab 12/15/19 03/19/20 Rx oxyCODONE-APAP 7.5-325MG [Percocet 1 tab PO DAILY PRN #10 tab 12/15/19 03/19/20 Rx 7.5-325 mg] Furosemide [Lasix] 20 mg PO DAILY 01/08/20 03/19/20 History Metoprolol Tartrate [Lopressor] 25 mg PO DAILY 01/08/20 03/19/20 History lisinopriL [Zestril] 2.5 mg PO DAILY 01/08/20 03/19/20 History Hydrocortisone [Cortef] 10 mg PO HS 03/09/20 03/19/20 History Hydrocortisone [Cortef] 20 mg PO DAILY 03/09/20 03/19/20 History Pregabalin [Lyrica] 300 mg PO BID 03/09/20 03/19/20 History Sildenafil Citrate 100 mg PO DAILY PRN 03/09/20 03/19/20 History Allergies Allergy/AdvReac Type Severity Reaction Status Date / Time No Known Allergies Allergy Verified 03/19/20 15:52 Physical Exam Vitals: Vital Signs Temp Pulse Resp BP Pulse Ox 03/20/20 08:30 72 03/20/20 08:13 73 03/20/20 07:00 70 20 95 03/20/20 06:45 70 20 95 03/20/20 06:30 69 20 95 03/20/20 06:15 69 20 95 03/20/20 06:00 71 20 107/71 96 03/20/20 05:45 72 20 96 03/20/20 05:30 70 20 95 03/20/20 05:15 68 20 95 03/20/20 05:00 68 20 106/73 95 03/20/20 04:45 68 20 95 03/20/20 04:30 68 20 95 03/20/20 04:15 69 20 106/73 95 03/20/20 04:00 97.7 F 67 20 94 L 03/20/20 03:45 70 20 95 03/20/20 03:30 70 20 95 03/20/20 03:15 70 20 116/76 95 03/20/20 03:00 70 20 95 03/20/20 02:45 69 20 94 L 03/20/20 02:30 70 20 93 L 03/20/20 02:15 72 20 125/82 94 L 03/20/20 02:00 72 20 94 L 03/20/20 01:45 71 20 94 L 03/20/20 01:30 72 20 94 L 03/20/20 01:15 72 20 94 L 03/20/20 01:00 72 20 122/84 94 L 03/20/20 00:45 71 20 125/82 93 L 03/20/20 00:30 74 20 108/85 92 L 03/20/20 00:15 73 20 128/81 97 03/20/20 00:00 97.6 F 72 20 114/83 97 03/19/20 23:45 73 20 128/83 92 L 03/19/20 23:30 74 20 134/84 94 L 03/19/20 23:15 73 20 134/84 94 L 03/19/20 23:00 74 20 112/78 97 03/19/20 22:45 73 20 97 03/19/20 22:30 69 20 114/77 96 03/19/20 22:15 71 20 96 03/19/20 22:00 73 20 130/73 97 03/19/20 21:45 76 20 130/73 97 03/19/20 21:30 72 12 87/58 97 03/19/20 21:15 89 14 138/84 97 03/19/20 21:00 83 12 105/60 97 03/19/20 20:45 78 10 L 115/63 96 03/19/20 20:30 78 10 L 120/65 97 03/19/20 20:15 76 12 116/75 97 03/19/20 20:00 97.7 F 88 12 133/77 03/19/20 19:45 77 10 L 117/75 90 L 03/19/20 19:30 75 10 L 148/80 92 L 03/19/20 19:15 65 8 L 67/53 03/19/20 19:00 70 8 L 66/48 03/19/20 18:45 71 9 L 79/53 88 L 03/19/20 18:15 73 16 76/54 03/19/20 18:00 78 15 77/52 03/19/20 17:45 82 14 75/52 03/19/20 17:30 80 15 81/55 03/19/20 17:15 83 16 73/55 03/19/20 17:00 98.1 F 85 18 78/49 88 L 03/19/20 16:13 93 16 98/37 93 L 03/19/20 15:00 141 H 20 92/51 03/19/20 14:17 99.2 F 163 H 17 114/99 96 03/19/20 13:19 179 H 20 105/31 98 03/19/20 12:40 200 H 16 77/51 97 03/19/20 12:15 102.5 F H 146 H 20 77/45 94 L Intake and Output 03/19/20 03/20/20 03/20/20 22:59 06:59 14:59 Intake Total 0153.037 6913.756 151.243 Output Total 500 1710 95 Balance 1370.341 273.756 56.243 Intake: IV 260 1550 125 Cefepime 1 gm In Sodium 50 Chloride 0.9% 50 ml @ 12. 5 mls/hr IVPB Q12HR [facility] Rx#:[id number] Sodium Chloride 0.9% 1, 875 125 000 ml @ 125 mls/hr IV . Q8H [facility] Rx#:[id number] Sodium Chloride 0.9% 1, 260 125 000 ml @ 130 mls/hr IV . Q7H42M [facility] Rx#:[id number] Vancomycin 2,000 mg In 500 Sodium Chloride 0.9% 500 ml 500 ml @ 167 mls/hr IVPB ONCE ONE Rx#: [id number] Intake, IV Titration 1250.341 373.756 26.243 Amount Heparin Sod,Pork in 0.45% 69.125 113.143 26.243 NaCl 25,000 unit In 0.45 % NaCl 1 250ml.bag @ 9.18 UNITS/KG/HR 9.994 mls/hr IV .Q24H [facility] Rx#: [id number] Norepinephrine 8 mg In 280.785 95.669 Sodium Chloride 0.9% 250 ml @ 0.05 MCG/KG/MIN 10. 532 mls/hr IV .Q24H [facility] Rx#:[id number] Sodium Chloride 0.9% 1, 890 000 ml @ 130 mls/hr IV . Q7H42M [facility] Rx#:[id number] propofoL 1,000 mg In 10.431 164.944 Empty Bag 1 bag @ Titrate IV .Q0M [facility] Rx#: [id number] Oral 360 Other 60 Output: Urine 500 1710 95 Other: Voiding Method Indwelling Catheter Indwelling Catheter Weight 122 kg 122.8 kg ABP, PAP, CO, CI - Last 8 Hours Arterial Blood Pressure 107/51 Arterial Blood Pressure 100/49 Arterial Blood Pressure 104/51 Arterial Blood Pressure 107/52 Arterial Blood Pressure 114/57 Arterial Blood Pressure 124/59 Arterial Blood Pressure 119/59 Arterial Blood Pressure 104/53 Arterial Blood Pressure 111/53 Arterial Blood Pressure 100/51 Arterial Blood Pressure 144/68 Arterial Blood Pressure 120/60 Arterial Blood Pressure 103/55 Arterial Blood Pressure 109/57 Arterial Blood Pressure 124/63 Arterial Blood Pressure 121/63 Arterial Blood Pressure 120/62 Arterial Blood Pressure 107/55 Arterial Blood Pressure 101/48 Arterial Blood Pressure 113/56 Arterial Blood Pressure 127/63 Arterial Blood Pressure 130/64 Arterial Blood Pressure 130/64 Arterial Blood Pressure 128/64 Arterial Blood Pressure 119/61 Arterial Blood Pressure 130/67 GENERAL EXAM: Sedated, intubated, 54-year-old obese -Chinese male, comfortable in no apparent distress. HEAD: Normocephalic/atraumatic. EYES: Normal reaction of pupils, equal size. Conjunctiva pink, sclera white. NOSE: Clear with pink turbinates. THROAT: No erythema or exudates. NECK: No masses, no JVD, no thyroid enlargement, no adenopathy. CHEST: No chest wall deformity. Symmetrical expansion. LUNGS: Equal air entry with crackles in bilateral lungs, more so in the right lung CVS: Regular rate and rhythm, normal S1 and S2, no gallops, no murmurs, no rubs ABDOMEN: Soft, nontender. No hepatosplenomegaly, normal bowel sounds, no guarding or rigidity. Patient has a pain pump implanted in his left lower abdomen EXTREMITIES: No clubbing, no edema, no cyanosis, 2+ pulses and upper and lower extremities. MUSCULOSKELETAL: Muscle strength and tone normal. SPINE: No scoliosis or deformity SKIN: No rashes CENTRAL NERVOUS SYSTEM: Data, intubated, no focal deficits, tone is normal in all 4 extremities. Results - Laboratory Findings CBC and BMP: 03/20/20 05:50 03/20/20 04:24 ABG ABG pH 7.38 (7.35-7.45) 03/20/20 05:02 ABG pCO2 41 mmHg (35-45) 03/20/20 05:02 ABG pO2 82 mmHg (83-108) L 03/20/20 05:02 ABG O2 Saturation 95.6 % (94-97) 03/20/20 05:02 PT/INR, D-dimer PT 12.9 sec (9.0-12.0) H 03/19/20 12:32 INR 1.3 (<1.2) H 03/19/20 12:32 D-Dimer 25.02 mg/L FEU (<0.60) H 03/19/20 12:32 Abnormal lab findings: Abnormal Labs 03/19/20 03/19/20 03/19/20 12:32 12:32 12:32 WBC 2.3 L RBC Hgb 10.9 L Hct 37.6 L MCH 24.9 L MCHC 29.1 L RDW 16.5 H Neutrophils # (Manual) Lymphocytes # (Manual) 0.35 L ESR PT 12.9 H INR 1.3 H APTT D-Dimer ABG pH ABG pCO2 ABG pO2 ABG HCO3 ABG Total CO2 ABG O2 Saturation Chloride BUN 25 H Glucose 68 L POC Glucose (mg/dL) Plasma Lactic Acid Suresh Calcium Alkaline Phosphatase 131 H Lactate Dehydrogenase Troponin I C-Reactive Protein Albumin 3.4 L Procalcitonin Urine Protein Urine Blood Ur Leukocyte Esterase Urine RBC Urine WBC Urine Bacteria Urine Mucus 03/19/20 03/19/20 03/19/20 12:32 12:32 12:32 WBC RBC Hgb Hct MCH MCHC RDW Neutrophils # (Manual) Lymphocytes # (Manual) ESR PT INR APTT D-Dimer 25.02 H ABG pH ABG pCO2 ABG pO2 ABG HCO3 ABG Total CO2 ABG O2 Saturation Chloride BUN Glucose POC Glucose (mg/dL) Plasma Lactic Acid Suresh 5.9 H* Calcium Alkaline Phosphatase Lactate Dehydrogenase Troponin I 0.052 H* C-Reactive Protein Albumin Procalcitonin Urine Protein Urine Blood Ur Leukocyte Esterase Urine RBC Urine WBC Urine Bacteria Urine Mucus 03/19/20 03/19/20 03/19/20 14:59 15:06 15:20 WBC RBC Hgb Hct MCH MCHC RDW Neutrophils # (Manual) Lymphocytes # (Manual) ESR PT INR APTT D-Dimer ABG pH ABG pCO2 ABG pO2 ABG HCO3 ABG Total CO2 ABG O2 Saturation Chloride BUN Glucose POC Glucose (mg/dL) 55 L 159 H Plasma Lactic Acid Suresh Calcium Alkaline Phosphatase Lactate Dehydrogenase Troponin I C-Reactive Protein Albumin Procalcitonin 64.39 H Urine Protein Urine Blood Ur Leukocyte Esterase Urine RBC Urine WBC Urine Bacteria Urine Mucus 03/19/20 03/19/20 03/19/20 15:35 16:35 16:50 WBC RBC Hgb Hct MCH MCHC RDW Neutrophils # (Manual) Lymphocytes # (Manual) ESR PT INR APTT D-Dimer ABG pH ABG pCO2 ABG pO2 ABG HCO3 ABG Total CO2 ABG O2 Saturation Chloride BUN Glucose POC Glucose (mg/dL) 68 L 69 L Plasma Lactic Acid Suresh Calcium Alkaline Phosphatase Lactate Dehydrogenase Troponin I C-Reactive Protein Albumin Procalcitonin Urine Protein 1+ H Urine Blood Large H Ur Leukocyte Esterase Large H Urine RBC >182 H Urine WBC 17 H Urine Bacteria Moderate H Urine Mucus 03/19/20 03/19/20 03/19/20 17:31 17:39 17:39 WBC RBC Hgb Hct MCH MCHC RDW Neutrophils # (Manual) Lymphocytes # (Manual) ESR 36 H PT INR APTT D-Dimer ABG pH ABG pCO2 ABG pO2 ABG HCO3 ABG Total CO2 ABG O2 Saturation Chloride BUN Glucose POC Glucose (mg/dL) Plasma Lactic Acid Suresh 4.3 H* Calcium Alkaline Phosphatase Lactate Dehydrogenase 984 H Troponin I C-Reactive Protein 68.1 H Albumin Procalcitonin Urine Protein Urine Blood Ur Leukocyte Esterase Urine RBC Urine WBC Urine Bacteria Urine Mucus 03/19/20 03/19/20 03/19/20 17:39 18:37 19:11 WBC RBC Hgb Hct MCH MCHC RDW Neutrophils # (Manual) Lymphocytes # (Manual) ESR PT INR APTT D-Dimer ABG pH ABG pCO2 ABG pO2 ABG HCO3 ABG Total CO2 ABG O2 Saturation Chloride BUN Glucose POC Glucose (mg/dL) 124 H 147 H 135 H Plasma Lactic Acid Suresh Calcium Alkaline Phosphatase Lactate Dehydrogenase Troponin I C-Reactive Protein Albumin Procalcitonin Urine Protein Urine Blood Ur Leukocyte Esterase Urine RBC Urine WBC Urine Bacteria Urine Mucus 03/19/20 03/19/20 03/19/20 19:17 19:59 20:29 WBC RBC Hgb Hct MCH MCHC RDW Neutrophils # (Manual) Lymphocytes # (Manual) ESR PT INR APTT D-Dimer ABG pH 7.29 L 7.30 L ABG pCO2 52 H 54 H ABG pO2 70 L 122 H ABG HCO3 27 H ABG Total CO2 27 H 28 H ABG O2 Saturation 91.0 L 97.5 H Chloride BUN Glucose POC Glucose (mg/dL) 127 H Plasma Lactic Acid Suresh Calcium Alkaline Phosphatase Lactate Dehydrogenase Troponin I C-Reactive Protein Albumin Procalcitonin Urine Protein Urine Blood Ur Leukocyte Esterase Urine RBC Urine WBC Urine Bacteria Urine Mucus 03/19/20 03/19/20 03/19/20 21:29 21:31 23:40 WBC RBC Hgb Hct MCH MCHC RDW Neutrophils # (Manual) Lymphocytes # (Manual) ESR PT INR APTT D-Dimer ABG pH ABG pCO2 ABG pO2 181 H ABG HCO3 26 H ABG Total CO2 27 H ABG O2 Saturation 98.8 H Chloride BUN Glucose POC Glucose (mg/dL) Plasma Lactic Acid Suresh 2.7 H* Calcium Alkaline Phosphatase Lactate Dehydrogenase Troponin I C-Reactive Protein Albumin Procalcitonin Urine Protein Urine Blood Moderate H Ur Leukocyte Esterase Large H Urine RBC Urine WBC 9 H Urine Bacteria Occasional H Urine Mucus Rare H 03/19/20 03/20/20 03/20/20 23:47 01:00 01:34 WBC RBC Hgb Hct MCH MCHC RDW Neutrophils # (Manual) Lymphocytes # (Manual) ESR PT INR APTT D-Dimer ABG pH ABG pCO2 ABG pO2 ABG HCO3 ABG Total CO2 ABG O2 Saturation Chloride BUN Glucose POC Glucose (mg/dL) 151 H 151 H Plasma Lactic Acid Suresh 3.8 H* Calcium Alkaline Phosphatase Lactate Dehydrogenase Troponin I C-Reactive Protein Albumin Procalcitonin Urine Protein Urine Blood Ur Leukocyte Esterase Urine RBC Urine WBC Urine Bacteria Urine Mucus 03/20/20 03/20/20 03/20/20 04:05 04:24 04:24 WBC 22.0 H RBC 3.22 L Hgb 7.7 L D Hct 27.1 L MCH 23.9 L MCHC 28.4 L RDW 17.1 H Neutrophils # (Manual) 20.90 H Lymphocytes # (Manual) 0.88 L ESR PT INR APTT D-Dimer ABG pH ABG pCO2 ABG pO2 ABG HCO3 ABG Total CO2 ABG O2 Saturation Chloride 112 H BUN 22 H Glucose 142 H POC Glucose (mg/dL) 148 H Plasma Lactic Acid Suresh Calcium 6.8 L Alkaline Phosphatase Lactate Dehydrogenase Troponin I C-Reactive Protein Albumin Procalcitonin Urine Protein Urine Blood Ur Leukocyte Esterase Urine RBC Urine WBC Urine Bacteria Urine Mucus 03/20/20 03/20/20 03/20/20 04:24 04:24 05:02 WBC RBC Hgb Hct MCH MCHC RDW Neutrophils # (Manual) Lymphocytes # (Manual) ESR PT INR APTT 39.5 H D-Dimer ABG pH ABG pCO2 ABG pO2 82 L ABG HCO3 ABG Total CO2 26 H ABG O2 Saturation Chloride BUN Glucose POC Glucose (mg/dL) Plasma Lactic Acid Suresh 2.9 H* Calcium Alkaline Phosphatase Lactate Dehydrogenase Troponin I C-Reactive Protein Albumin Procalcitonin Urine Protein Urine Blood Ur Leukocyte Esterase Urine RBC Urine WBC Urine Bacteria Urine Mucus 03/20/20 03/20/20 05:50 07:54 WBC 32.8 H RBC 3.99 L Hgb 9.9 L D Hct 33.8 L MCH 24.7 L MCHC 29.2 L RDW 16.5 H Neutrophils # (Manual) Lymphocytes # (Manual) ESR PT INR APTT D-Dimer ABG pH ABG pCO2 ABG pO2 ABG HCO3 ABG Total CO2 ABG O2 Saturation Chloride BUN Glucose POC Glucose (mg/dL) 133 H Plasma Lactic Acid Suresh Calcium Alkaline Phosphatase Lactate Dehydrogenase Troponin I C-Reactive Protein Albumin Procalcitonin Urine Protein Urine Blood Ur Leukocyte Esterase Urine RBC Urine WBC Urine Bacteria Urine Mucus - Diagnostic Findings Chest x-ray: report reviewed, image reviewed CT scan - chest: report reviewed, image reviewed Additional studies: EKG reviewed Assessment and Plan Plan: Assessment: #1. Acute hypoxic and hypercapnic respiratory failure due to right lung pneumonia, possibly coming acquired versus aspiration pneumonia related to vomiting, requiring intubation and placement on mechanical ventilator on 03/19/2020 #2. Acute septic shock, multifactorial, with urinalysis showing signs of acute urinary tract infection, and acute right lung pneumonia #3. D-dimer, pulmonary embolism ruled out via CTA chest #4. Lactic acidosis related to acute sepsis and septic shock, improved with IV hydration #5. Neutropenia related to acute sepsis #6. Chronic anemia, unspecified #7. Morbid obesity status post gastric sleeve in December 2019 #8. Atrial fibrillation with rapid ventricular response, on presentation, patient had converted to sinus rhythm on Cardizem and heparin infusion #9. Elevated troponin likely related to sepsis, cardiology swallow #10. History of CVA #11. Hypertension #12. History of back surgery and chronic back pain, and left lower abdomen pain pump implantation #13. History of esophageal stricture with multiple dilatations #14. History of nonischemic cardiomyopathy #15. Diabetes mellitus #16. Former nicotine dependence Plan: Continue current antibiotics, will consider additional liter and fluid bolus, continue maintenance IV fluids at 125 ML per hour, blood cultures have been sent, pending, urine cultures pending, sputum culture is pending. Febrile pattern has improved, we'll place a central line, an arterial line this morning for hemodynamic monitoring. Will adjust ventilator settings, and increased a rate up to 24 breaths per minute, and dropped her rate down to 450, continue with FiO2 50% and PEEP of 5. Continue GI and DVT prophylaxis, patient had converted to sinus rhythm, follow cardiology recommendations. Follow ID service recommendations for antibiotics. We'll continue to closely follow the patient in the intensive care unit I performed a history & physical examination of the patient and discussed their management with my nurse practitioner, Shea Terry. I reviewed the nurse practitioner's note and agree with the documented findings and plan of care. Lung sounds are positive for crackles bilateral lungs. The findings and the impression was discussed with the patient. I attest to the documentation by the nurse practitioner. Critical care time is greater than 30 minutes Time with Patient: Greater than 30
[2020-03-20] MEDS ORDERED: FUROSEMIDE 20 MG TAB PO SCH (09:00)
[2020-03-20] MEDS ORDERED: VANCOMYCIN 2,000 MG in SODIUM CHLORIDE 0.9% 500 ML 500 ML IVPB SCH (09:00)
[2020-03-20] MEDS ORDERED: HYDROCORTISONE 20 MG TAB PO SCH (09:00)
[2020-03-20] MEDS: METOPROLOL TARTRATE 25 MG TAB PO SCH (09:18)
[2020-03-20] MEDS ORDERED: SODIUM CHLORIDE 0.9% 1,000 ML IV ONE (09:28)
[2020-03-20] MEDS ORDERED: VANCOMYCIN 1,750 MG in SODIUM CHLORIDE 0.9% 500 ML 500 ML IVPB SCH (10:00)
[2020-03-20] MEDS: ESCITALOPRAM 10 MG TAB PO SCH (10:15)
[2020-03-20 11:42] LABS: T4, Free (Free Thyroxine) 1.29 ng/dL (0.78-2.19)
[2020-03-20] MEDS: IPRATROPIUM-ALBUTEROL 3 ML NEB INHALATION SCH ×4 (11:44→23:00)
--- NOTE | 2020-03-20 12:34 | CONS ---
CONSULTATION Mr. Barbosa is a 54-year-old male who presented with progressive dyspnea, change in mental status and was found to have evidence consistent with pneumonia. He had atrial fibrillation with a rapid ventricular response on presentation. Patient during the night became more confused and unable to clear his airway. He was intubated electively. He is intubated and sedated. The history is obtained from the record and the nursing staff. The patient has a history of cerebrovascular accident, history of hypertension, prior pneumonia, peripheral neuropathy, prior back surgery. He is intubated at this time. He had a history of adrenal insufficiency. MEDICATION: At home include Zestril 2.5 mg daily, Lyrica, omeprazole, metoprolol tartrate 25 mg daily, Solu-Cortef, Lasix 20 mg daily, Lexapro, Flexeril, and allopurinol. He is at this time on Percocet. He is on IV heparin. Review of systems could not be obtained. Reviewing his old records, patient was in the hospital in December of this year and at that time was evaluated by Dr. Us. He has a history of nonischemic cardiomyopathy with improvement of his systolic function. He has been followed by Dr. Sheffield in the past. He came in at that time with fascial dizziness. Apparently there was improvement in his systolic function on a followup echocardiogram that was done as an outpatient. PHYSICAL EXAMINATION: He is a 54-year-old male, intubated and sedated. Blood pressure 107/50 with a heart rate in the 70s. HEAD: Normocephalic. EYES: Sclerae nonicteric. NECK: No bruit. LUNGS: Clear to auscultation anteriorly. HEART: S1-S2, no S3 no S4, no rub. ABDOMEN: Soft, no organomegaly. EXTREMITIES: No edema noted. LAB DATA: On presentation revealed a white blood cell of 3.3, hemoglobin of 10.9. His BUN and creatinine 25 and 1.21. His lactic acid level was elevated. His white blood cell today of 32.8, hemoglobin 9.9. It was 7.7 yesterday. His pH 7.38, pCO2 of 41, PO2 of 82. His plasma lactic acid remains 29. His BUN and creatinine 22 and 1.05, potassium 3.8. His urine output is adequate. His chest x-ray shows right lung infiltrate. Chest CT angiogram revealed consolidation and atelectasis of the right lower lobe, which is new. IMPRESSION: 1. Respiratory failure with evidence to suggest pneumonia. 2. Paroxysmal atrial fibrillation. 3. History of cardiomyopathy. 4. History of adrenal insufficiency. 5. Prior history of cerebrovascular accident. 6. History of chronic pain. RECOMMENDATION: From the cardiac standpoint, I will obtain echocardiogram with Doppler. Will continue on the present regimen. He will be evaluated by Pulmonary Service. He is he has a prior history of cardiomyopathy and depending on the ejection fraction, further adjustment will be done. Depending on his progress, further recommendation will be made. Thank you for this consult. Will follow with you. GALINA / IJN: [id number] /
[2020-03-20 13:07] LABS: Glucose,Whole Blood 129 mg/dL (75-99)
[2020-03-20] MEDS: allopurinoL 300 MG TAB PO SCH (13:07)
[2020-03-20 16:50] LABS: Glucose,Whole Blood 118 mg/dL (75-99)
[2020-03-20] MEDS: NOREPINEPHRINE 8 MG in SODIUM CHLORIDE 0.9% 250 ML IV SCH (16:53)
[2020-03-20] MEDS: PIPERACILLIN-TAZOBACTAM 3.375 GM in SODIUM CHLORIDE 0.9% 100 ML IVPB SCH (16:56)
--- NOTE | 2020-03-20 17:37 | PN ---
PROGRESS NOTE DATE OF SERVICE: 03/20/2020 This is a 54-year-old gentleman with weakness and change in mental status, hypotension, had features of pneumonia, mostly in the right lower lobe, but apparently bilateral. The patient had history of esophageal stricture. Patient also had multiple vomiting also, possibly indicating aspiration. Last night, the patient also deteriorated, respiratory tse and has been intubated and mechanically ventilated. Patient closely monitored at this time. Patient also hypotensive. Patient is on Levophed drip, IV fluids. The patient also had atrial fibrillation, fast ventricular rate. Patient is on Cardizem at 5 mg/hour. Patient on IV heparin. Also cardiology, pulmonology, multiple infectious Disease and multiple consultants are following the patient. Patient on broad spectrum IV antibiotics. Cultures are pending at this time. Of note, patient also had recent history of gangrene from which the patient has improved significantly. PAST MEDICAL HISTORY: Reviewed. REVIEW OF SYSTEMS: Could not be taken, the patient is mechanically ventilated and sedated due intubated. The current events in assist-control 450, 50% percent FiO2, 5 of PEEP. CURRENT MEDICATIONS: Reviewed include: 1. Tylenol. 2. DuoNeb. 3. Zyloprim. 4. cefepime. 5. Peridex. 6. Flexeril. 7. Diltiazem. 8. Colace. 9. Lexapro. 10.Heparin. 11.Solu-Cortef. 12.NovoLog. 13.Vimpat. 14.Lopressor. 15.Narcan. 16.Norepinephrine. 17.Zofran. 18.Percocet. 19.Protonix. 20.Lyrica. 21.Vancomycin doses are reviewed. 22.Zosyn. PHYSICAL EXAMINATION: Patient is mechanically sedated, pulse 64, blood pressure 160/60, respiration 20, temperature is normal, pulse ox 94% on mechanical ventilation. Vent settings are noted. The patient is in sinus rhythm and the monitor. HEENT: Conjunctivae normal. NECK: No jugular venous distension. CARDIOVASCULAR SYSTEM: S1, S2 muffled. RESPIRATION: Breath sounds diminished at the bases, a few scattered rhonchi. ABDOMEN: Soft, obese, nontender. LEGS: No edema, no swelling. NERVOUS SYSTEM: Patient is mechanically sedated. SKIN: No evidence of gangrene. LABS: WBC 32.8, hemoglobin is 9.9 and glucose is 129. INR is 1.3, ABG noted. Creatinine is normal at 1.05, BUN is slightly increased, lactic acid is 2.7 on admission, troponin 0.052 and TSH 0.122 and free T4 is 1.29. UA showed evidence of UTI, large leukocyte events. The CTA was no evidence of pulmonary embolism. Extensive consolidation, atelectasis of the right lower lobe was also noted. The chest x-ray which was also personally reviewed by me showed bilateral pneumonia process, right more than the left. ASSESSMENT: 1. Bilateral pneumonia, right more the left, possibly aspiration with severe sepsis, hypotension, septic shock. 2. Acute hypoxic respiratory failure, on mechanical ventilation. 3. Atrial fibrillation with fast ventricular rate, status post Cardizem drip. 4. History of esophageal stenosis and stricture. 5. Bicytopenia with neutropenia as well as anemia. 6. Elevated lactic acid secondary to sepsis. 7. Hyperglycemia secondary to sepsis. 8. Troponin 0.05 indeterminate. 9. Recent history of Shobha gangrene. 10.History of gastroesophageal reflux disease. 11.History of cerebrovascular accident, transient ischemic attack. 12.Hypertension. 13.Degenerative joint disease. 14.History of pneumonia. 15.History of hiatal hernia. 16.History of gout. 17.History of bilateral peripheral neuropathy. 18.History of chronic back pain, DJD. 19.History of constipation. 20.History of MRSA. 21.History of bariatric surgery. 22.History of pain pump implantation. 23.History of gastric sleeve. 24.Anxiety, depression. 25.Remote history of nicotine dependence. 26.Obesity with body mass index of 30.8. 27.FULL CODE. RECOMMENDATION: In this 54-year-old gentleman who presented with multiple complex medical issues, will monitor the patient closely. Continue with the current management. Continue with empiric antibiotics. Follow the cultures. Bronchodilators. Follow closely with Infectious Disease and as well as Pulmonary. I would also recommend Gastroenterology consultation regarding the history of esophageal stricture and possible EGD because patient might need an orogastric tube at some time for assisted feeding. Otherwise, white count is significantly elevated, indicating a leukemoid reaction, possibly secondary to sepsis or induced steroids. We will continue to monitor. Repeat labs ordered. Cultures as mentioned earlier are pending at this time, sputum, urine, and blood. Prognosis guarded. Further recommendations to follow. A copy will be forwarded to Dr. Ang who is the primary physician please. MMODL / IJN: [id number] / MTDYves
--- NOTE | 2020-03-20 18:00 | ECHOF ---
Referral Reason:afib MEASUREMENTS -------- HEIGHT: 188.0 cm WEIGHT: 122.5 kg BP: 107/51 RVIDd: 3.6 cm (< 3.3) IVSd: 1.4 cm (0.6 - 1.1) LVIDd: 5.2 cm (3.9 - 5.3) LVPWd: 1.5 cm (0.6 - 1.1) IVSs: 1.8 cm LVIDs: 3.6 cm LVPWs: 2.2 cm LA Diam: 3.2 cm (2.7 - 3.8) Ao Diam: 3.9 cm (2.0 - 3.7) AV Cusp: 2.4 cm (1.5 - 2.6) MV E Raymond: 0.63 m/s MV DecT: 171 ms MV A Raymond: 0.69 m/s MV E/A Ratio: 0.92 FINDINGS -------- Sinus rhythm. This was a technically difficult study with suboptimal views. The left ventricular size is normal. There is moderate concentric left ventricular hypertrophy. O verall left ventricular systolic function is low-normal with, an EF between 50 - 55 %. The right ventricle is mildly enlarged. The left atrial size is normal. The right atrium was not well visualized. 1.5mg of Definity was utilized for enhancement of images Aortic valve is trileaflet and is mildly thickened. The mitral valve leaflets are mildly thickened. The tricuspid valve appears structurally normal. The pulmonic valve was not well visualized. The aortic root is dilated measuring 3.9cm. The inferior vena cava is dilated with no significant inspiratory collapse which is consistent estima raquel right atrial pressure of >20 mmHg. There is no pericardial effusion. CONCLUSIONS -------- 1. This was a technically difficult study with suboptimal views. 2. The left ventricular size is normal. 3. There is moderate concentric left ventricular hypertrophy. 4. Overall left ventricular systolic function is low-normal with, an EF between 50 - 55 %. 5. The right ventricle is mildly enlarged. 6. 1.5mg of Definity was utilized for enhancement of images 7. Aortic valve is trileaflet and is mildly thickened. 8. The mitral valve leaflets are mildly thickened. 9. The aortic root is dilated measuring 3.9cm. 10. The inferior vena cava is dilated with no significant inspiratory collapse which is consistent es timated right atrial pressure of >20 mmHg. 11. There is no pericardial effusion. STOGIE PACKER: Lucy Cordova RDCS
[2020-03-20 20:11] LABS: Glucose,Whole Blood 124 mg/dL (75-99)
--- NOTE | 2020-03-20 22:12 | P.CONS ---
History of Present Illness - Reason for Consult Consult date: 03/20/20 Sepsis Requesting physician: Edgar Jauregui - Chief Complaint Weakness and falls x 2 days - History of Present Illness Patient is a 54-year-old -[place] male presenting to the ER at [facility] history for evaluation of weakness confusion and apparently the patient has fallen 3 times over the last 24 hour and was complaining of pain to the left hip and flank area he was complaining of hematuria, patient on presentation to hospital and did have a fever of 102F, the patient did have a tachycardia, patient did have leukopenia with evidence of lymphopenia however subsequently white count is up to 22,000 this morning, patient did have elevated lactic acid positive UA, patient did have a chest x-ray we did shows new mild infiltrate atelectasis right lung base, patient did have a CT angiogram that was negative for PE however did shows extensive consolidation atelectasis right lower lobe with volume loss patient did went to respiratory distress and getting intubated has been admitted to the ICU has been on low-dose pressor support patient has been treated with cefepime and vancomycin and infectious disease was consulted for further management of antibiotic therapy patient did mention he has vomited twice since he has been intubated and no diarrhea has been reported, most information has been obtained from review the chart and talking with nursing staff as the patient currently intubated and is unable to provide any history Review of Systems Positive point has been mentioned in the HPI rest of the systems are negative Past Medical History Past Medical History: Atrial Fibrillation, COPD, CVA/TIA, GERD/Reflux, Hyperlipidemia, Hypertension, Osteoarthritis (OA), Pneumonia, Sleep Apnea/CPAP/BIPAP Additional Past Medical History / Comment(s): hiatal hernia, gout, neuropathy marta legs and feet- states feet are numb, some numbness in legs & tingling in hands., chronic back pain., constipation., dysphagia-hx of EGD with dilation, 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 BILATERAL KNEE arthroscopy, BILATERAL HIP replacement, LEFT SHOULDER replacement, LEFT ACHILES TENDON SX., RIGHT BIG TOE took piece out, echocardiolgram, spinal fusion, EGD with dilation., STATES HX OF PNEUMONIA WITH LUNG SURGERY., REPAIR OF HIATAL HERNIA & LYSIS OF ADHESIONS Past Anesthesia/Blood Transfusion Reactions: No Reported Reaction Past Psychological History: Anxiety, Depression Smoking Status: Former smoker Past Alcohol Use History: None Reported Additional Past Alcohol Use History / Comment(s): quit smoking 2018, smoked since age 21, 1 PPD Past Drug Use History: None Reported - Past Family History Father Family Medical History: Cancer Additional Family Medical History / Comment(s): lung Mother Family Medical History: Coronary Artery Disease (CAD), Hypertension Medications and Allergies Home Medications Medication Instructions Recorded Confirmed Type Allopurinol [Zyloprim] 300 mg PO DAILY 06/04/16 03/19/20 History Cyclobenzaprine [Flexeril] 10 mg PO BID 06/04/16 03/19/20 History Escitalopram [Lexapro] 10 mg PO DAILY 06/04/16 03/19/20 History Lacosamide [Vimpat] 50 mg PO BID 03/25/18 03/19/20 History Omeprazole 40 mg PO BID #60 cap 07/06/19 03/19/20 Rx Zolpidem Tartrate [Ambien] 10 mg PO HS #4 tab 12/15/19 03/19/20 Rx oxyCODONE-APAP 7.5-325MG [Percocet 1 tab PO DAILY PRN #10 tab 12/15/19 03/19/20 Rx 7.5-325 mg] Furosemide [Lasix] 20 mg PO DAILY 01/08/20 03/19/20 History Metoprolol Tartrate [Lopressor] 25 mg PO DAILY 01/08/20 03/19/20 History lisinopriL [Zestril] 2.5 mg PO DAILY 01/08/20 03/19/20 History Hydrocortisone [Cortef] 10 mg PO HS 03/09/20 03/19/20 History Hydrocortisone [Cortef] 20 mg PO DAILY 03/09/20 03/19/20 History Pregabalin [Lyrica] 300 mg PO BID 03/09/20 03/19/20 History Sildenafil Citrate 100 mg PO DAILY PRN 03/09/20 03/19/20 History Allergies Allergy/AdvReac Type Severity Reaction Status Date / Time No Known Allergies Allergy Verified 03/19/20 15:52 Physical Exam Vitals: Vital Signs Temp Pulse Resp BP Pulse Ox 03/20/20 16:15 64 24 96 03/20/20 16:00 98.5 F 64 24 97 03/20/20 15:45 65 26 H 96 03/20/20 15:30 64 24 96 03/20/20 15:28 64 03/20/20 15:17 66 03/20/20 15:15 64 24 96 03/20/20 15:00 66 24 94 L 03/20/20 14:45 64 24 97 03/20/20 14:30 65 24 96 03/20/20 14:15 64 24 95 03/20/20 14:00 65 24 95 03/20/20 13:45 65 24 95 03/20/20 13:30 64 24 94 L 03/20/20 13:15 65 24 94 L 03/20/20 13:00 66 24 106/67 94 L 03/20/20 12:45 67 24 106/67 95 03/20/20 12:30 68 24 106/67 94 L 03/20/20 12:15 70 106/67 95 03/20/20 12:00 98.5 F 70 24 106/67 95 03/20/20 11:45 78 106/67 97 03/20/20 11:30 73 24 106/67 97 03/20/20 11:15 68 24 106/67 95 03/20/20 11:00 67 24 102/66 95 03/20/20 10:45 68 24 102/66 95 03/20/20 10:30 68 24 102/66 95 03/20/20 10:15 68 24 102/66 96 03/20/20 10:00 69 24 91/62 95 03/20/20 09:45 70 24 91/62 95 03/20/20 09:30 70 24 91/62 96 03/20/20 09:15 73 24 91/62 96 03/20/20 09:00 78 24 103/67 95 03/20/20 08:45 71 24 103/67 95 03/20/20 08:30 72 24 103/67 96 03/20/20 08:15 73 20 103/67 95 03/20/20 08:13 73 03/20/20 08:00 98.6 F 73 20 114/73 95 03/20/20 07:45 76 20 114/73 94 L 03/20/20 07:30 73 20 114/73 94 L 03/20/20 07:15 70 16 114/73 95 03/20/20 07:00 70 20 95 03/20/20 06:45 70 20 95 03/20/20 06:30 69 20 95 03/20/20 06:15 69 20 95 03/20/20 06:00 71 20 107/71 96 03/20/20 05:45 72 20 96 03/20/20 05:30 70 20 95 03/20/20 05:15 68 20 95 03/20/20 05:00 68 20 106/73 95 03/20/20 04:45 68 20 95 03/20/20 04:30 68 20 95 03/20/20 04:15 69 20 106/73 95 03/20/20 04:00 97.7 F 67 20 94 L 03/20/20 03:45 70 20 95 03/20/20 03:30 70 20 95 03/20/20 03:15 70 20 116/76 95 03/20/20 03:00 70 20 95 03/20/20 02:45 69 20 94 L 03/20/20 02:30 70 20 93 L 03/20/20 02:15 72 20 125/82 94 L 03/20/20 02:00 72 20 94 L 03/20/20 01:45 71 20 94 L 03/20/20 01:30 72 20 94 L 03/20/20 01:15 72 20 94 L 03/20/20 01:00 72 20 122/84 94 L 03/20/20 00:45 71 20 125/82 93 L 03/20/20 00:30 74 20 108/85 92 L 03/20/20 00:15 73 20 128/81 97 03/20/20 00:00 97.6 F 72 20 114/83 97 03/19/20 23:45 73 20 128/83 92 L 03/19/20 23:30 74 20 134/84 94 L 03/19/20 23:15 73 20 134/84 94 L 03/19/20 23:00 74 20 112/78 97 03/19/20 22:45 73 20 97 03/19/20 22:30 69 20 114/77 96 09/27/20 22:15 71 20 96 03/19/20 22:00 73 20 130/73 97 03/19/20 21:45 76 20 130/73 97 03/19/20 21:30 72 12 87/58 97 03/19/20 21:15 89 14 138/84 97 03/19/20 21:00 83 12 105/60 97 03/19/20 20:45 78 10 L 115/63 96 03/19/20 20:30 78 10 L 120/65 97 03/19/20 20:15 76 12 116/75 97 03/19/20 20:00 97.7 F 88 12 133/77 03/19/20 19:45 77 10 L 117/75 90 L 03/19/20 19:30 75 10 L 148/80 92 L 03/19/20 19:15 65 8 L 67/53 03/19/20 19:00 70 8 L 66/48 03/19/20 18:45 71 9 L 79/53 88 L 03/19/20 18:15 73 16 76/54 03/19/20 18:00 78 15 77/52 03/19/20 17:45 82 14 75/52 03/19/20 17:30 80 15 81/55 03/19/20 17:15 83 16 73/55 03/19/20 17:00 98.1 F 85 18 78/49 88 L Intake and Output 03/20/20 03/20/20 03/20/20 06:59 14:59 22:59 Intake Total 2566.121 9383.283 266 Output Total 1710 970 100 Balance 721.926 7438.283 166 Intake: IV 1550 2556 266 0.9 NACL bolus 1000 Cefepime 1 gm In Sodium 50 Chloride 0.9% 50 ml @ 12. 5 mls/hr IVPB Q12HR [facility] Rx#:[id number] Sodium Chloride 0.9% 1, 875 1000 250 000 ml @ 125 mls/hr IV . Q8H [facility] Rx#:[id number] Sodium Chloride 0.9% 1, 125 000 ml @ 130 mls/hr IV . Q7H42M [facility] Rx#:[id number] Vancomycin 2,000 mg In 500 Sodium Chloride 0.9% 500 ml 500 ml @ 167 mls/hr IVPB ONCE ONE Rx#: [id number] cardizem 35 10 pressure bag 21 6 vancomycin 500 Intake, IV Titration 373.756 65.283 Amount Heparin Sod,Pork in 0.45% 113.143 26.243 NaCl 25,000 unit In 0.45 % NaCl 1 250ml.bag @ 9.18 UNITS/KG/HR 9.994 mls/hr IV .Q24H [facility] Rx#: [id number] Norepinephrine 8 mg In 95.669 Sodium Chloride 0.9% 250 ml @ 0.05 MCG/KG/MIN 10. 532 mls/hr IV .Q24H [facility] Rx#:[id number] propofoL 1,000 mg In 164.944 39.04 Empty Bag 1 bag @ Titrate IV .Q0M [facility] Rx#: [id number] Other 60 Output: Urine 1710 970 100 Other: Voiding Method Indwelling Catheter Indwelling Catheter Indwelling Catheter Weight 122.8 kg 122.8 kg ABP, PAP, CO, CI - Last 8 Hours Arterial Blood Pressure 108/58 Arterial Blood Pressure 113/59 Arterial Blood Pressure 115/61 Arterial Blood Pressure 116/63 Arterial Blood Pressure 113/60 Arterial Blood Pressure 139/82 Arterial Blood Pressure 95/63 Arterial Blood Pressure 118/68 Arterial Blood Pressure 103/58 Arterial Blood Pressure 107/59 Arterial Blood Pressure 103/57 Arterial Blood Pressure 104/57 Arterial Blood Pressure 105/57 Arterial Blood Pressure 97/55 Arterial Blood Pressure 99/55 Arterial Blood Pressure 100/54 Arterial Blood Pressure 109/60 Arterial Blood Pressure 130/71 Arterial Blood Pressure 96/49 Arterial Blood Pressure 130/65 Arterial Blood Pressure 105/54 Arterial Blood Pressure 100/53 Arterial Blood Pressure 102/55 Arterial Blood Pressure 102/53 Arterial Blood Pressure 103/54 Arterial Blood Pressure 108/55 Arterial Blood Pressure 94/51 Arterial Blood Pressure 108/55 Arterial Blood Pressure 112/55 Arterial Blood Pressure 106/56 GENERAL DESCRIPTION: Middle-aged male intubated on the vent. No tachypnea or accessory muscle of respiration use. HEENT: Shows Pallor , no scleral icterus. Oral mucous membrane is dry. Patient is orally intubated NECK: Trachea central, no thyromegaly. LUNGS: Unlabored breathing. Decreased breath sound the bases. No wheeze or crackle. HEART: S1, S2, regular rate and rhythm. No loud murmur ABDOMEN: Soft, no tenderness , guarding or rigidity, no organomegaly EXTREMITIES: No edema of feet. SKIN: No rash, no masses palpable. NEUROLOGICAL: The patient is sedated on the vent Results CBC & Chem 7: 03/20/20 05:50 03/20/20 04:24 Labs: Abnormal Lab Results - Last 24 Hours (Table) 03/19/20 03/19/20 03/19/20 Range/Units 15:06 16:50 17:31 WBC (3.8-10.6) k/uL RBC (4.30-5.90) m/uL Hgb (13.0-17.5) gm/dL Hct (39.0-53.0) % MCH (25.0-35.0) pg MCHC (31.0-37.0) g/dL RDW (11.5-15.5) % Neutrophils # (Manual) (1.3-7.7) k/uL Lymphocytes # (Manual) (1.0-4.8) k/uL ESR (0-15) mm/hr APTT (22.0-30.0) sec ABG pH (7.35-7.45) ABG pCO2 (35-45) mmHg ABG pO2 (83-108) mmHg ABG HCO3 (21-25) mmol/L ABG Total CO2 (19-24) mmol/L ABG O2 Saturation (94-97) % Chloride (98-107) mmol/L BUN (9-20) mg/dL Glucose (74-99) mg/dL POC Glucose (mg/dL) 69 L (75-99) mg/dL Plasma Lactic Acid Suresh 4.3 H* (0.7-2.0) mmol/L Calcium (8.4-10.2) mg/dL Lactate Dehydrogenase (313-618) U/L C-Reactive Protein (<10.0) mg/L Procalcitonin 64.39 H (0.02-0.09) ng/mL TSH (0.465-4.680) mIU/L Urine Blood (Negative) Ur Leukocyte Esterase (Negative) Urine WBC (0-5) /hpf Urine Bacteria (None) /hpf Urine Mucus (None) /hpf 03/19/20 03/19/20 03/19/20 Range/Units 17:39 17:39 17:39 WBC (3.8-10.6) k/uL RBC (4.30-5.90) m/uL Hgb (13.0-17.5) gm/dL Hct (39.0-53.0) % MCH (25.0-35.0) pg MCHC (31.0-37.0) g/dL RDW (11.5-15.5) % Neutrophils # (Manual) (1.3-7.7) k/uL Lymphocytes # (Manual) (1.0-4.8) k/uL ESR 36 H (0-15) mm/hr APTT (22.0-30.0) sec ABG pH (7.35-7.45) ABG pCO2 (35-45) mmHg ABG pO2 (83-108) mmHg ABG HCO3 (21-25) mmol/L ABG Total CO2 (19-24) mmol/L ABG O2 Saturation (94-97) % Chloride (98-107) mmol/L BUN (9-20) mg/dL Glucose (74-99) mg/dL POC Glucose (mg/dL) 124 H (75-99) mg/dL Plasma Lactic Acid Suresh (0.7-2.0) mmol/L Calcium (8.4-10.2) mg/dL Lactate Dehydrogenase 984 H (313-618) U/L C-Reactive Protein 68.1 H (<10.0) mg/L Procalcitonin (0.02-0.09) ng/mL TSH (0.465-4.680) mIU/L Urine Blood (Negative) Ur Leukocyte Esterase (Negative) Urine WBC (0-5) /hpf Urine Bacteria (None) /hpf Urine Mucus (None) /hpf 03/19/20 03/19/20 03/19/20 Range/Units 18:37 19:11 19:17 WBC (3.8-10.6) k/uL RBC (4.30-5.90) m/uL Hgb (13.0-17.5) gm/dL Hct (39.0-53.0) % MCH (25.0-35.0) pg MCHC (31.0-37.0) g/dL RDW (11.5-15.5) % Neutrophils # (Manual) (1.3-7.7) k/uL Lymphocytes # (Manual) (1.0-4.8) k/uL ESR (0-15) mm/hr APTT (22.0-30.0) sec ABG pH 7.29 L (7.35-7.45) ABG pCO2 52 H (35-45) mmHg ABG pO2 70 L (83-108) mmHg ABG HCO3 (21-25) mmol/L ABG Total CO2 27 H (19-24) mmol/L ABG O2 Saturation 91.0 L (94-97) % Chloride (98-107) mmol/L BUN (9-20) mg/dL Glucose (74-99) mg/dL POC Glucose (mg/dL) 147 H 135 H (75-99) mg/dL Plasma Lactic Acid Suresh (0.7-2.0) mmol/L Calcium (8.4-10.2) mg/dL Lactate Dehydrogenase (313-618) U/L C-Reactive Protein (<10.0) mg/L Procalcitonin (0.02-0.09) ng/mL TSH (0.465-4.680) mIU/L Urine Blood (Negative) Ur Leukocyte Esterase (Negative) Urine WBC (0-5) /hpf Urine Bacteria (None) /hpf Urine Mucus (None) /hpf 03/19/20 03/19/20 03/19/20 Range/Units 19:59 20:29 21:29 WBC (3.8-10.6) k/uL RBC (4.30-5.90) m/uL Hgb (13.0-17.5) gm/dL Hct (39.0-53.0) % MCH (25.0-35.0) pg MCHC (31.0-37.0) g/dL RDW (11.5-15.5) % Neutrophils # (Manual) (1.3-7.7) k/uL Lymphocytes # (Manual) (1.0-4.8) k/uL ESR (0-15) mm/hr APTT (22.0-30.0) sec ABG pH 7.30 L (7.35-7.45) ABG pCO2 54 H (35-45) mmHg ABG pO2 122 H (83-108) mmHg ABG HCO3 27 H (21-25) mmol/L ABG Total CO2 28 H (19-24) mmol/L ABG O2 Saturation 97.5 H (94-97) % Chloride (98-107) mmol/L BUN (9-20) mg/dL Glucose (74-99) mg/dL POC Glucose (mg/dL) 127 H (75-99) mg/dL Plasma Lactic Acid Suresh 2.7 H* (0.7-2.0) mmol/L Calcium (8.4-10.2) mg/dL Lactate Dehydrogenase (313-618) U/L C-Reactive Protein (<10.0) mg/L Procalcitonin (0.02-0.09) ng/mL TSH (0.465-4.680) mIU/L Urine Blood (Negative) Ur Leukocyte Esterase (Negative) Urine WBC (0-5) /hpf Urine Bacteria (None) /hpf Urine Mucus (None) /hpf 03/19/20 03/19/20 03/19/20 Range/Units 21:31 23:40 23:47 WBC (3.8-10.6) k/uL RBC (4.30-5.90) m/uL Hgb (13.0-17.5) gm/dL Hct (39.0-53.0) % MCH (25.0-35.0) pg MCHC (31.0-37.0) g/dL RDW (11.5-15.5) % Neutrophils # (Manual) (1.3-7.7) k/uL Lymphocytes # (Manual) (1.0-4.8) k/uL ESR (0-15) mm/hr APTT (22.0-30.0) sec ABG pH (7.35-7.45) ABG pCO2 (35-45) mmHg ABG pO2 181 H (83-108) mmHg ABG HCO3 26 H (21-25) mmol/L ABG Total CO2 27 H (19-24) mmol/L ABG O2 Saturation 98.8 H (94-97) % Chloride (98-107) mmol/L BUN (9-20) mg/dL Glucose (74-99) mg/dL POC Glucose (mg/dL) 151 H (75-99) mg/dL Plasma Lactic Acid Suresh (0.7-2.0) mmol/L Calcium (8.4-10.2) mg/dL Lactate Dehydrogenase (313-618) U/L C-Reactive Protein (<10.0) mg/L Procalcitonin (0.02-0.09) ng/mL TSH (0.465-4.680) mIU/L Urine Blood Moderate H (Negative) Ur Leukocyte Esterase Large H (Negative) Urine WBC 9 H (0-5) /hpf Urine Bacteria Occasional H (None) /hpf Urine Mucus Rare H (None) /hpf 03/20/20 03/20/20 03/20/20 Range/Units 01:00 01:34 04:05 WBC (3.8-10.6) k/uL RBC (4.30-5.90) m/uL Hgb (13.0-17.5) gm/dL Hct (39.0-53.0) % MCH (25.0-35.0) pg MCHC (31.0-37.0) g/dL RDW (11.5-15.5) % Neutrophils # (Manual) (1.3-7.7) k/uL Lymphocytes # (Manual) (1.0-4.8) k/uL ESR (0-15) mm/hr APTT (22.0-30.0) sec ABG pH (7.35-7.45) ABG pCO2 (35-45) mmHg ABG pO2 (83-108) mmHg ABG HCO3 (21-25) mmol/L ABG Total CO2 (19-24) mmol/L ABG O2 Saturation (94-97) % Chloride (98-107) mmol/L BUN (9-20) mg/dL Glucose (74-99) mg/dL POC Glucose (mg/dL) 151 H 148 H (75-99) mg/dL Plasma Lactic Acid Suresh 3.8 H* (0.7-2.0) mmol/L Calcium (8.4-10.2) mg/dL Lactate Dehydrogenase (313-618) U/L C-Reactive Protein (<10.0) mg/L Procalcitonin (0.02-0.09) ng/mL TSH (0.465-4.680) mIU/L Urine Blood (Negative) Ur Leukocyte Esterase (Negative) Urine WBC (0-5) /hpf Urine Bacteria (None) /hpf Urine Mucus (None) /hpf 03/20/20 03/20/20 03/20/20 Range/Units 04:24 04:24 04:24 WBC 22.0 H (3.8-10.6) k/uL RBC 3.22 L (4.30-5.90) m/uL Hgb 7.7 L D (13.0-17.5) gm/dL Hct 27.1 L (39.0-53.0) % MCH 23.9 L (25.0-35.0) pg MCHC 28.4 L (31.0-37.0) g/dL RDW 17.1 H (11.5-15.5) % Neutrophils # (Manual) 20.90 H (1.3-7.7) k/uL Lymphocytes # (Manual) 0.88 L (1.0-4.8) k/uL ESR (0-15) mm/hr APTT (22.0-30.0) sec ABG pH (7.35-7.45) ABG pCO2 (35-45) mmHg ABG pO2 (83-108) mmHg ABG HCO3 (21-25) mmol/L ABG Total CO2 (19-24) mmol/L ABG O2 Saturation (94-97) % Chloride 112 H (98-107) mmol/L BUN 22 H (9-20) mg/dL Glucose 142 H (74-99) mg/dL POC Glucose (mg/dL) (75-99) mg/dL Plasma Lactic Acid Suresh 2.9 H* (0.7-2.0) mmol/L Calcium 6.8 L (8.4-10.2) mg/dL Lactate Dehydrogenase (313-618) U/L C-Reactive Protein (<10.0) mg/L Procalcitonin (0.02-0.09) ng/mL TSH (0.465-4.680) mIU/L Urine Blood (Negative) Ur Leukocyte Esterase (Negative) Urine WBC (0-5) /hpf Urine Bacteria (None) /hpf Urine Mucus (None) /hpf 03/20/20 03/20/20 03/20/20 Range/Units 04:24 04:24 05:02 WBC (3.8-10.6) k/uL RBC (4.30-5.90) m/uL Hgb (13.0-17.5) gm/dL Hct (39.0-53.0) % MCH (25.0-35.0) pg MCHC (31.0-37.0) g/dL RDW (11.5-15.5) % Neutrophils # (Manual) (1.3-7.7) k/uL Lymphocytes # (Manual) (1.0-4.8) k/uL ESR (0-15) mm/hr APTT 39.5 H (22.0-30.0) sec ABG pH (7.35-7.45) ABG pCO2 (35-45) mmHg ABG pO2 82 L (83-108) mmHg ABG HCO3 (21-25) mmol/L ABG Total CO2 26 H (19-24) mmol/L ABG O2 Saturation (94-97) % Chloride (98-107) mmol/L BUN (9-20) mg/dL Glucose (74-99) mg/dL POC Glucose (mg/dL) (75-99) mg/dL Plasma Lactic Acid Suresh (0.7-2.0) mmol/L Calcium (8.4-10.2) mg/dL Lactate Dehydrogenase (313-618) U/L C-Reactive Protein (<10.0) mg/L Procalcitonin (0.02-0.09) ng/mL TSH 0.122 L (0.465-4.680) mIU/L Urine Blood (Negative) Ur Leukocyte Esterase (Negative) Urine WBC (0-5) /hpf Urine Bacteria (None) /hpf Urine Mucus (None) /hpf 03/20/20 03/20/20 03/20/20 Range/Units 05:50 07:54 13:04 WBC 32.8 H (3.8-10.6) k/uL RBC 3.99 L (4.30-5.90) m/uL Hgb 9.9 L D (13.0-17.5) gm/dL Hct 33.8 L (39.0-53.0) % MCH 24.7 L (25.0-35.0) pg MCHC 29.2 L (31.0-37.0) g/dL RDW 16.5 H (11.5-15.5) % Neutrophils # (Manual) (1.3-7.7) k/uL Lymphocytes # (Manual) (1.0-4.8) k/uL ESR (0-15) mm/hr APTT (22.0-30.0) sec ABG pH (7.35-7.45) ABG pCO2 (35-45) mmHg ABG pO2 (83-108) mmHg ABG HCO3 (21-25) mmol/L ABG Total CO2 (19-24) mmol/L ABG O2 Saturation (94-97) % Chloride (98-107) mmol/L BUN (9-20) mg/dL Glucose (74-99) mg/dL POC Glucose (mg/dL) 133 H 129 H (75-99) mg/dL Plasma Lactic Acid Suresh (0.7-2.0) mmol/L Calcium (8.4-10.2) mg/dL Lactate Dehydrogenase (313-618) U/L C-Reactive Protein (<10.0) mg/L Procalcitonin (0.02-0.09) ng/mL TSH (0.465-4.680) mIU/L Urine Blood (Negative) Ur Leukocyte Esterase (Negative) Urine WBC (0-5) /hpf Urine Bacteria (None) /hpf Urine Mucus (None) /hpf 03/20/20 Range/Units 14:50 WBC (3.8-10.6) k/uL RBC (4.30-5.90) m/uL Hgb (13.0-17.5) gm/dL Hct (39.0-53.0) % MCH (25.0-35.0) pg MCHC (31.0-37.0) g/dL RDW (11.5-15.5) % Neutrophils # (Manual) (1.3-7.7) k/uL Lymphocytes # (Manual) (1.0-4.8) k/uL ESR (0-15) mm/hr APTT 50.1 H (22.0-30.0) sec ABG pH (7.35-7.45) ABG pCO2 (35-45) mmHg ABG pO2 (83-108) mmHg ABG HCO3 (21-25) mmol/L ABG Total CO2 (19-24) mmol/L ABG O2 Saturation (94-97) % Chloride (98-107) mmol/L BUN (9-20) mg/dL Glucose (74-99) mg/dL POC Glucose (mg/dL) (75-99) mg/dL Plasma Lactic Acid Suresh (0.7-2.0) mmol/L Calcium (8.4-10.2) mg/dL Lactate Dehydrogenase (313-618) U/L C-Reactive Protein (<10.0) mg/L Procalcitonin (0.02-0.09) ng/mL TSH (0.465-4.680) mIU/L Urine Blood (Negative) Ur Leukocyte Esterase (Negative) Urine WBC (0-5) /hpf Urine Bacteria (None) /hpf Urine Mucus (None) /hpf Microbiology - Last 24 Hours (Table) 03/19/20 12:49 Blood Culture - Preliminary Blood No Growth after 24 hours 03/19/20 22:35 Sputum Culture - Preliminary Sputum 03/19/20 15:35 Urine Culture - Preliminary Urine,Clean Catch Assessment and Plan Assessment: 1- patient presented to the hospital with sepsis in this patient who did have fever and tachycardia and leukocytosis elevated lactic acid now with evidence of extensive pneumonia on the CT and acute respiratory failure considered likely for aspiration pneumonia plus minus a component of urinary tract infection from enteric gram-negative pathogen (1) Sepsis Current Visit: Yes Status: Acute Code(s): A41.9 - SEPSIS, UNSPECIFIED ORGANISM SNOMED Code(s): 07369588 (2) Pneumonia Current Visit: Yes Status: Acute Code(s): J18.9 - PNEUMONIA, UNSPECIFIED ORGANISM SNOMED Code(s): 545109296 (3) Urinary tract infection Current Visit: Yes Status: Acute Code(s): N39.0 - URINARY TRACT INFECTION, SITE NOT SPECIFIED SNOMED Code(s): 05743498 Plan: 1- we will obtain sputum for Gram stain and culture 2-discontinue the cefepime and vancomycin 3-Zosyn 3.375 g every 8 hours We will follow on clinical condition and cultures to further adjust medication if needed Thank you for this consultation will follow this patient with you Time with Patient: Greater than 30
[2020-03-20 23:48] LABS: Glucose,Whole Blood 108 mg/dL (75-99)
[2020-03-21] MEDS: INSULIN ASPART (NovoLOG) 100 UNIT/ML VIAL SQ SCH ×6 (00:03→20:08)
[2020-03-21] MEDS: PIPERACILLIN-TAZOBACTAM 3.375 GM in SODIUM CHLORIDE 0.9% 100 ML IVPB SCH ×3 (00:04→15:56)
[2020-03-21] MEDS: HYDROCORTISONE SUCCINATE 100 MG/2 ML VIAL IV SCH ×4 (00:04→23:39)
[2020-03-21] MEDS: HEPARIN SOD,PORK IN 0.45% NACL 25,000 UNIT in 0.45% NACL 1 250ML.BAG IV SCH ×2 (01:58→15:56)
[2020-03-21 03:47] LABS: Glucose,Whole Blood 102 mg/dL (75-99)
[2020-03-21] MEDS: IPRATROPIUM-ALBUTEROL 3 ML NEB INHALATION SCH ×6 (03:54→23:58)
[2020-03-21 04:16] LABS: Anisocytosis Slight; Basophils # (A) 0.1 k/uL (0-0.2); Basophils % (A) 0 %; Eosinophils % (A) 0 %; HCT 32.3 % (39.0-53.0); HGB 9.5 gm/dL (13.0-17.5); Hypochromasia Marked; Lymphocytes # (A) 0.5 k/uL (1.0-4.8); Lymphocytes % (A) 2 %; MCH 24.3 pg (25.0-35.0); MCHC 29.3 g/dL (31.0-37.0); MCV 82.8 fL (80.0-100.0); Monocytes # (A) 0.6 k/uL (0-1.0); Monocytes % (A) 3 %; Neutrophils # (A) 22.2 k/uL (1.3-7.7); Neutrophils % (A) 94 %; Platelet Count 207 k/uL (150-450); RBC 3.91 m/uL (4.30-5.90); RDW 17.1 % (11.5-15.5); WBC 23.6 k/uL (3.8-10.6)
[2020-03-21] MEDS: DILTIAZEM 125 MG in SODIUM CHLORIDE 0.9% 100 ML IV SCH ×2 (04:48→09:56)
[2020-03-21 04:54] LABS: African American GFR (CKD) >90 (>60 ml/min/1.73 sqM); Anion Gap 4 mmol/L; Blood Urea Nitrogen 22 mg/dL (9-20); Calcium 6.8 mg/dL (8.4-10.2); Carbon Dioxide 27 mmol/L (22-30); Chloride 112 mmol/L (98-107); Glucose 114 mg/dL (74-99); Non-African American GFR(CKD) >90 (>60 ml/min/1.73 sqM); Potassium 4.3 mmol/L (3.5-5.1); Sodium 143 mmol/L (137-145)
[2020-03-21 05:12] LABS: ABG Base Excess 1.4 mmol/L; ABG HCO3 26 mmol/L (21-25); ABG Oxygen Saturation 97.9 % (94-97); ABG PCO2 40 mmHg (35-45); ABG PH 7.42 (7.35-7.45); ABG PO2 104 mmHg (83-108); ABG TCO2 27 mmol/L (19-24); Allen Test Performed? Yes
[2020-03-21] MEDS: PANTOPRAZOLE 40 MG TABLET PO SCH (05:48)
--- NOTE | 2020-03-21 06:38 | OP ---
OPERATIVE REPORT PROCEDURE: Right femoral triple-lumen catheter. PREOPERATIVE DIAGNOSIS: Administration of fluids and pressors. TRIPLE LUMEN CATHETER PLACEMENT: Indication: Hemodynamic monitoring/Intravenous access. A time-out was completed verifying correct patient, procedure, site, positioning, and implant(s) or special equipment if applicable. The patient was placed in a dependent position appropriate for triple lumen catheter placement based on the vein to be cannulated. The patient's right groin was prepped and draped in sterile fashion. 1% Lidocaine was used to anesthetize the surrounding skin area. A triple lumen 9F Cordis catheter was introduced into the right common femoral vein using Seldinger technique. The catheter was threaded smoothly over the guide wire and appropriate blood return was obtained. Each lumen of the catheter was evacuated of air and flushed with sterile saline. The catheter was then sutured in place to the skin and a sterile dressing applied by the nurse. Perfusion to the extremity distal to the point of catheter insertion was checked and found to be adequate. There were no immediate complications. There was good blood return from all three ports. The patient tolerated the procedure well. There were no immediate complications. MMODL / IJN: [id number] /
--- NOTE | 2020-03-21 07:11 | XR ---
EXAMINATION TYPE: XR chest 1V portable DATE OF EXAM: 03/21/2020 COMPARISON: 03/20/2020 HISTORY: Shortness of breath TECHNIQUE: Single frontal view of the chest is obtained. FINDINGS: ET and NG tube again noted with the NG tube pulled back and the level of the distal esopha mary. Bilateral consolidation and pleural effusion. Patient rotated. Postsurgical change overlying the cervical spine. No pneumothorax. IMPRESSION: 1. Diffuse pleural-parenchymal changes could be on the basis of pneumonia. 2. NG tube is been pulled back to the level of the distal esophagus correlate for repositioning.
[2020-03-21] MEDS: CHLORHEXIDINE GLUCONATE 15 ML CUP MUCOUS MEM SCH (08:52)
[2020-03-21] MEDS: PANTOPRAZOLE 40 MG/10 ML VIAL IVP SCH ×2 (08:52→19:51)
[2020-03-21 09:06] LABS: Glucose,Whole Blood 113 mg/dL (75-99)
[2020-03-21] MEDS: SODIUM CHLORIDE 0.9% 1,000 ML IV SCH ×4 (09:06→23:48)
--- NOTE | 2020-03-21 09:08 | CONS ---
CONSULTATION DATE OF DICTATION: March 20, 2020. REASON FOR CONSULTATION: History of esophageal stricture, nausea, vomiting. HISTORY OF PRESENT ILLNESS: The patient is a 54-year-old male with history of CVA in the past, hypertension, hyperlipidemia, gastroesophageal reflux disease with history of esophageal stricture, was admitted to the hospital because of altered mental status, shortness of breath. He was subsequently noted to have atrial fibrillation with rapid ventricular heart rate and was treated with IV Cardizem and at the time of admission to the hospital, chest x-ray showed pneumonia. Suddenly he became very short of breath and went into respiratory failure and has been intubated. Presently on the vent. He remains on 2 L at the present time. We were consulted because of history of esophageal stricture. The patient underwent an upper endoscopy by Dr. Dumont in November of this year and was noted to have a distal esophageal stricture for which she underwent a balloon dilation. As per the nursing staff, apparently his has been complaining of dysphagia to solids for the last several months duration. The patient is maintained on Protonix 40 mg twice daily on an outpatient basis. Since being in the hospital, yesterday and today he has been having some passive regurgitation of secretions and stomach contents. He has an NG tube in place. PAST MEDICAL HISTORY: CVA, history of GERD, hypertension, esophageal stricture, history of pneumonia. PAST SURGICAL HISTORY: Cardiac catheterization, EGD with dilation, back surgery. MEDICATIONS: Medications at home include oxycodone, Zestril, Ambien, Lyrica, omeprazole, Vimpat, Lopressor, Cortef, Lasix, Paxil, Lexapro, Zyloprim, and sildenafil. ALLERGIES: None. SOCIAL HISTORY: History of smoking. No alcohol use. FAMILY HISTORY: Father with hypertension and coronary artery disease. REVIEW OF SYSTEMS: Could not be obtained as patient is on the vent, sedated and intubated. PHYSICAL EXAMINATION: On physical examination, vital signs show a blood pressure of 99/54, pulse 81, temperature 98.4. Respiratory rate 24. HEENT examination unremarkable. Conjunctivae pink. Sclerae anicteric. Oral cavity no lesions. NECK no JVD or lymph node enlargement. CHEST: Clear to auscultation. HEART: Regular rate and rhythm. ABDOMEN was soft. It was nontender, nondistended. Bowel sounds are positive. No organomegaly. EXTREMITIES no pedal edema. NEURO: Sedated on the vent. LABS: From yesterday WBC 2.3, hemoglobin 10.9, platelets 274. Today WBC 32.8, hemoglobin 9.9, platelets 277. BUN and creatinine are 22 and 1.05 respectively. ALT and AST 28 and 12 respectively. Alkaline phosphatase 131. Troponin 0.052. CRP 68. IMPRESSION: 1. Acute respiratory failure secondary to bilateral pneumonia on broad-spectrum antibiotics. 2. Sepsis, septic shock on low-dose vasopressors. 3. History of esophageal stricture status post balloon dilation by Dr. Dumont 2 months ago. Presently, the patient has an NG tube in place and there was no significant gastric output noted. However, as per the nursing staff, he has been having some passive regurgitation probably related to dilated esophagus noted on recent upper endoscopy. 4. Severe leukocytosis secondary to pneumonia. 5. History of hypertension and cerebrovascular accident in the past. RECOMMENDATIONS: 1. Continue with broad-spectrum antibiotics. 2. Continue with Protonix 40 mg twice daily. 3. Oral tube feeds can be started tomorrow. 4. No plans on any endoscopic intervention at the present time. Will consider repeat EGD with dilation once his overall condition improves. 5. Monitor labs closely. 6. Will follow with you closely. Thank you for this consultation. MMODL / IJN: [id number] /
--- NOTE | 2020-03-21 10:44 | CONS ---
CONSULTATION Mr. Barbosa is a 54-year-old male who presented with progressive dyspnea, hypercapnic and hypoxic respiratory failure. He is intubated and sedated. He had evidence of atrial fibrillation. He continues to be intubated and sedated. He underwent an echocardiogram yesterday that revealed a preserved systolic function. Ejection fraction of 50% to 55% with no significant ulcer with evidence of dilatation of the inferior vena cava. He continues to be in sinus mechanism. He has a history of cerebrovascular accident, adrenal insufficiency as well as history of chronic back pain. He continues to be at this time on IV Cardizem, IV heparin, metoprolol tartrate 25 mg daily in addition to his antibiotics. PHYSICAL EXAMINATION: Blood pressure running in the 110s with a heart rate in the 50s. LUNGS: No wheezes anteriorly. HEART: Regular rate and rhythm, S1, S2. No S3. No rub. ABDOMEN: Soft, positive bowel sounds, no organomegaly. EXTREMITIES: 1+ edema. LAB DATA: Revealed a white blood cell 23.6 with a hemoglobin of 9.5. BUN and creatinine 22 and 0.93. His chest x-ray revealed the infiltrate of pneumonia. IMPRESSION: 1. Respiratory failure with hypercapnic hypoxemic acute event with pneumonia. 2. Paroxysmal atrial fibrillation back in sinus mechanism. 3. Prior history of cardiomyopathy, stable at this time, his ejection fraction of 50% to 55%. 4. History of adrenal insufficiency. RECOMMENDATION: From the cardiac standpoint, will continue on the present therapy. Patient will continue on heparin in case an intervention is needed. Otherwise, I will switch him to oral anticoagulation. Will follow his blood pressure and his heart rate and adjust his beta raf accordingly. Will continue to follow his renal function closely and depending on his progress, further recommendation will be made. MMODL / IJN: [id number] /
[2020-03-21] MEDS: PREGABALIN 100 MG CAP PO SCH ×2 (11:12→19:52)
[2020-03-21] MEDS: METOPROLOL TARTRATE 25 MG TAB PO SCH (11:12)
[2020-03-21] MEDS: LACOSAMIDE 50 MG TABLET PO SCH ×2 (11:12→20:21)
[2020-03-21] MEDS: ESCITALOPRAM 10 MG TAB PO SCH (11:12)
--- NOTE | 2020-03-21 11:26 | PN ---
PROGRESS NOTE PULMONARY/CRITICAL CARE PROGRESS NOTE: DATE OF SERVICE: 03/21/2020 CRITICAL CARE TIME: 35 minutes. This is a 54-year-old black male with a history of acute hypoxemic and hypercapnic respiratory failure secondary to pneumonia. The pneumonia may relate to underlying aspiration. The patient required intubation and mechanical ventilation on March 19. In addition, the patient is showing evidence of acute septic shock, lactic acidosis, chronic anemia, morbid obesity, status post gastric sleeve, December 2019, atrial fibrillation with RVR, CVA, hypertension, chronic back pain with previous back surgery, esophageal stricture with multiple dilatations, nonischemic cardiomyopathy, diabetes, and previous tobacco use. The patient currently remains on the mechanical ventilator. We will attempt a daily interruption and possible spontaneous breathing trial today on 5 of CPAP and 5 of pressure support. Currently, the patient is on the volume assist- control mode rate of 24, tidal volume 450 FiO2 of 50%, PEEP of 5. Blood gases show a pO2 of 104, pCO2 of 40, pH of 7.42. The patient is getting saline at 125 mL an hour, propofol at 30 mcg/kg per minute, Cardizem at 5 mg an hour, norepinephrine at 1.2 mcg/minute and heparin via weight-based protocol. There was some gram-negative bacilli in the urine. The patient should be started on tube feeds and cleared by surgery and the patient is currently on Zosyn. Currently, the patient has been stable overnight. Current vital signs are reviewed, temperature 97.9, heart rate 84, respiratory rate 15, blood pressure 102/67 mean 78, saturations are 98%. Appears in no acute distress. HEENT: Examination is grossly unremarkable. There is an orally placed endotracheal tube and NG tube. NECK: Supple, full range of motion. No adenopathy, thyromegaly or neck vein distention. CARDIOVASCULAR: Examination reveals regular rhythm and rate. Heart rate 84 beats per minute. S1, S2 normal. Heart sounds are distant. LUNGS: Reveal diffuse coarse rhonchi bilaterally. There is mild. There are some mild crackles bilaterally. No wheezes. ABDOMEN: Soft. Bowel sounds are not noted. EXTREMITIES: Intact. Mild edema. No cyanosis or clubbing. SKIN: Without rash. NEUROLOGIC: Examination is difficult to assess given his current level of sedation. LABS: Reviewed. White count 23.6, hemoglobin 9.5, hematocrit 32.3, platelet count 207,000, blood gases show a pO2 of 104, pCO2 of 40 and a pH of 7.42. Sodium 143, potassium 4.3, chloride is 112, CO2 is 27, anion gap is 4. BUN and creatinine were 22 and 0.93. Calcium 6.8. Sputum, blood and urine samples were done. Urine was positive for Gram- negative bacilli, yet to be identified. The most recent chest x-ray done March 21, 2020 continues to show evidence of bilateral basilar consolidation and pleural effusions, right greater than left. CURRENT MEDICATIONS: Reviewed. The patient is currently on Tylenol, Zyloprim, Cardizem drip, chlorhexidine, Flexeril, Colace, Lexapro, IV heparin, hydrocortisone, insulin, DuoNeb, Vimpat, metoprolol, Narcan, norepinephrine, Zofran, Percocet, Protonix, Zosyn, potassium replacement, Lyrica, propofol and Ambien. ASSESSMENT: 1. Acute hypoxemic and hypercapnic respiratory failure secondary to pneumonia, which required intubation and mechanical ventilation on March 19, 2020. 2. Acute septic shock, secondary to pneumonia and/or urinary tract infection. 3. Recently discovered gram-negative bacilli in the urine, yet to be fully identified. 4. No evidence of pulmonary embolism on CT angiogram. 5. Lactic acidosis, resolved. 6. Chronic anemia. 7. Morbid obesity, status post gastric sleeve December 2019. 8. Atrial fibrillation with rapid ventricular response, currently on a Cardizem drip and IV heparin. 9. Elevated troponin, may relate to supply demand mismatch and atrial fibrillation. 10.History of cerebrovascular accident. 11.Hypertension by history. 12.History of back surgery for chronic back pain and subsequent pain pump implantation. 13.History of esophageal stricture with multiple dilatations. 14.Nonischemic cardiomyopathy. 15.Diabetes mellitus. 16.Previous tobacco use. PLAN: The patient's propofol will be discontinued and the patient will have a daily interruption of sedation with possible spontaneous breathing trial on PSV 5, CPAP of 5. The patient is currently on Zosyn. Gram-negative bacilli were identified in urine. Will ask surgery about tube feeds. The patient remains on the propofol, Cardizem, norepinephrine, and IV heparin. The patient is also getting saline at 125 mL an hour. Blood gases are excellent. Prognosis is guarded. Will continue to follow. Med list is adjusted accordingly. Unnecessary superfluous medications are discontinued. CRITICAL CARE TIME: 35 minutes. MMODL / IJN: [id number] /
[2020-03-21 11:47] LABS: Glucose,Whole Blood 106 mg/dL (75-99)
--- NOTE | 2020-03-21 12:15 | P.PN ---
Subjective Progress Note Date: 03/21/20 Principal diagnosis: History of esophageal stricture, nausea, vomiting Is is a 54-year-old -[place] male patient who has a history of gastroesophageal reflux disease with a history of esophageal stricture who was admitted to the hospital because of altered mental status and shortness of breath. The patient went into respiratory failure and had been intubated and admitted to the ICU. He was also noted to have atrial fibrillation with rapid ventricular heart rate and was treated with IV Cardizem. Chest x-ray showed bilateral pneumonia. The patient had underwent an upper endoscopy by Dr. Dumont in November of this year was noted to have a distal esophageal stricture for which he underwent a balloon dilation. This morning the patient was extubated, he had no acute changes through the night. His OG tube was discontinued. The patient states he had been having some vomiting after eating for the past 2 weeks, he states he has more difficult time with solid foods and feels like it is getting stuck. He currently denies any abdominal pain, nausea or vomiting, but is nothing by mouth currently. Objective - Vital Signs Vital signs: Vital Signs Temp 97.9 F 03/21/20 08:00 Pulse 69 03/21/20 11:00 Resp 12 03/21/20 11:00 BP 102/67 03/21/20 10:00 Pulse Ox 98 03/21/20 11:00 Intake & Output 03/20/20 03/21/20 03/21/20 18:59 06:59 18:59 Intake Total 3380.954 2344.250 836.905 Output Total 1245 485 210 Balance 2135.954 1859.250 626.905 Weight 122.8 kg 124.9 kg Intake: IV 3088 1796 245 0.9 NACL bolus 1000 Sodium Chloride 0.9% 1, 1500 1500 125 000 ml @ 125 mls/hr IV . Q8H [facility] Rx#:[id number] cardizem 55 60 5 pressure bag 33 36 15 vancomycin 500 zosyn 200 100 Intake, IV Titration 292.954 548.250 591.905 Amount Diltiazem 125 mg In 69.25 59.667 Sodium Chloride 0.9% 100 ml @ 10 MG/HR 10 mls/hr IV .[id number] [facility] Rx#: [id number] Heparin Sod,Pork in 0.45% 26.243 250 NaCl 25,000 unit In 0.45 % NaCl 1 250ml.bag @ 9.18 UNITS/KG/HR 9.994 mls/hr IV .Q24H [facility] Rx#: [id number] Norepinephrine 8 mg In 97.461 47.220 16.216 Sodium Chloride 0.9% 250 ml @ 0.05 MCG/KG/MIN 10. 532 mls/hr IV .Q24H [facility] Rx#:[id number] Sodium Chloride 0.9% 1, 500 000 ml @ 125 mls/hr IV . Q8H [facility] Rx#:[id number] propofoL 1,000 mg In 100.00 191.363 75.689 Empty Bag 1 bag @ Titrate IV .Q0M [facility] Rx#: [id number] Output: Urine 1245 485 210 Other: Voiding Method Indwelling Catheter Indwelling Catheter Indwelling Catheter ABP, PAP, CO, CI - Last Documented Arterial Blood Pressure 108/57 - Exam General appearance: The patient is alert, oriented, in no acute distress. HET: Head is normocephalic and atraumatic. Conjunctiva pink. Sclera anicteric. Neck: Supple without lymphadenopathy. . Heart: S1 S2. Regular rate and rhythm. Lungs: Clear to auscultation. Abdomen: Soft, mild epigastric tenderness, nondistended with bowel sounds. No palpable organomegaly, guarding or rigidity.. Extremities: Normal skin color and turgor. Neurological: No focal deficits. Alert and oriented 3. - Labs CBC & Chem 7: 03/21/20 04:00 03/21/20 04:00 Labs: Abnormal Lab Results - Last 24 Hours (Table) 03/20/20 03/20/20 03/20/20 Range/Units 13:04 14:50 16:49 WBC (3.8-10.6) k/uL RBC (4.30-5.90) m/uL Hgb (13.0-17.5) gm/dL Hct (39.0-53.0) % MCH (25.0-35.0) pg MCHC (31.0-37.0) g/dL RDW (11.5-15.5) % Neutrophils # (1.3-7.7) k/uL Lymphocytes # (1.0-4.8) k/uL APTT 50.1 H (22.0-30.0) sec ABG HCO3 (21-25) mmol/L ABG Total CO2 (19-24) mmol/L ABG O2 Saturation (94-97) % Chloride (98-107) mmol/L BUN (9-20) mg/dL Glucose (74-99) mg/dL POC Glucose (mg/dL) 129 H 118 H (75-99) mg/dL Calcium (8.4-10.2) mg/dL 03/20/20 03/20/20 03/21/20 Range/Units 20:10 23:47 03:45 WBC (3.8-10.6) k/uL RBC (4.30-5.90) m/uL Hgb (13.0-17.5) gm/dL Hct (39.0-53.0) % MCH (25.0-35.0) pg MCHC (31.0-37.0) g/dL RDW (11.5-15.5) % Neutrophils # (1.3-7.7) k/uL Lymphocytes # (1.0-4.8) k/uL APTT (22.0-30.0) sec ABG HCO3 (21-25) mmol/L ABG Total CO2 (19-24) mmol/L ABG O2 Saturation (94-97) % Chloride (98-107) mmol/L BUN (9-20) mg/dL Glucose (74-99) mg/dL POC Glucose (mg/dL) 124 H 108 H 102 H (75-99) mg/dL Calcium (8.4-10.2) mg/dL 03/21/20 03/21/20 03/21/20 Range/Units 04:00 04:00 04:10 WBC 23.6 H (3.8-10.6) k/uL RBC 3.91 L (4.30-5.90) m/uL Hgb 9.5 L (13.0-17.5) gm/dL Hct 32.3 L (39.0-53.0) % MCH 24.3 L (25.0-35.0) pg MCHC 29.3 L (31.0-37.0) g/dL RDW 17.1 H (11.5-15.5) % Neutrophils # 22.2 H (1.3-7.7) k/uL Lymphocytes # 0.5 L (1.0-4.8) k/uL APTT 51.4 H (22.0-30.0) sec ABG HCO3 (21-25) mmol/L ABG Total CO2 (19-24) mmol/L ABG O2 Saturation (94-97) % Chloride 112 H (98-107) mmol/L BUN 22 H (9-20) mg/dL Glucose 114 H (74-99) mg/dL POC Glucose (mg/dL) (75-99) mg/dL Calcium 6.8 L (8.4-10.2) mg/dL 03/21/20 03/21/20 03/21/20 Range/Units 05:09 09:04 11:46 WBC (3.8-10.6) k/uL RBC (4.30-5.90) m/uL Hgb (13.0-17.5) gm/dL Hct (39.0-53.0) % MCH (25.0-35.0) pg MCHC (31.0-37.0) g/dL RDW (11.5-15.5) % Neutrophils # (1.3-7.7) k/uL Lymphocytes # (1.0-4.8) k/uL APTT (22.0-30.0) sec ABG HCO3 26 H (21-25) mmol/L ABG Total CO2 27 H (19-24) mmol/L ABG O2 Saturation 97.9 H (94-97) % Chloride (98-107) mmol/L BUN (9-20) mg/dL Glucose (74-99) mg/dL POC Glucose (mg/dL) 113 H 106 H (75-99) mg/dL Calcium (8.4-10.2) mg/dL Microbiology - Last 24 Hours (Table) 03/19/20 22:31 Blood Culture - Preliminary Blood No Growth after 24 hours 03/19/20 22:16 Blood Culture - Preliminary Blood No Growth after 24 hours 03/19/20 22:35 Gram Stain - Preliminary Sputum Sputum Culture - Preliminary 03/19/20 15:35 Urine Culture - Preliminary Urine,Clean Catch Gram Neg Bacilli 03/19/20 12:49 Blood Culture - Preliminary Blood No Growth after 24 hours Assessment and Plan Assessment: 1. Acute respiratory failure secondary to bilateral pneumonia on broad-spectrum antibiotics 2. Sepsis, septic shock on low-dose vasopressors 3. History of esophageal stricture status post balloon dilation by Dr. Carbajal 2 months ago. He was having passive regurgitation with OG-tube. Dysphasia with solid foods, 4. Severe leukocytosis secondary to pneumonia 5. History of hypertension and cerebrovascular accident in the past. Plan: 1. Continue broad spectrum antibiotics 2. Continue Protonix 40 mg daily 3. Start with clear liquid diet and advance to soft diet as tolerated 4. No plans for endoscopic intervention at this time, will allow patient to stabilize and consider doing in the next 2-3 days. 5. Monitor labs closely 6. ICU for medical management 7. Will follow with you closely The impression and plan of care has been dictated as directed. Dr. Amirah Sellers I performed a history and examination of this patient, discussed the same with the dictator. I agree with the dictator's note ,documented as a scribe. Any additional findings or plans will be noted.
[2020-03-21] MEDS ORDERED: LACTATED RINGERS 1,000 ML IV SCH (15:00)
[2020-03-21 15:45] LABS: Glucose,Whole Blood 79 mg/dL (75-99)
[2020-03-21 15:58] LABS: Hemoglobin A1C 5.7 % (4.0-6.0)
--- NOTE | 2020-03-21 17:23 | PN ---
PROGRESS NOTE DATE OF SERVICE: 03/21/2020 This 54-year-old gentleman admitted with acute bilateral pneumonia, right more than the left, with acute hypoxic respiratory failure, was intubated. Patient was extubated today. The patient is much more alert at this time. The patient also had history of esophageal stenosis with multiple dilations. Gastroenterology is planning EGD and possibly dilatation tomorrow. The most recent chest x-ray, which was reviewed personally by me, showed bilateral lesions, right more than the left. At this time the patient is being closely monitored in ICU. Dr. Gomez is following the patient closely as well as Cardiology. Past medical history reviewed. REVIEW OF SYSTEMS: CARDIOVASCULAR SYSTEM: As mentioned earlier. RESPIRATORY SYSTEM: As mentioned earlier. GI: As mentioned earlier. : No dysuria or retention. NERVOUS SYSTEM: No numbness, weakness. CURRENT MEDICATIONS: Tylenol, DuoNeb, Cardizem drip, Lexapro, heparin, Solu-Cortef, Vimpat, Lopressor, Narcan, norepinephrine, Zosyn, Lyrica. PHYSICAL EXAMINATION: Patient is alert, oriented x3. Pulse is 70, blood pressure 126/70, respiration 13, temperature 98 degrees, pulse ox 94% on 2 L. HEENT: Conjunctivae normal. NECK: No jugular venous distention. CARDIOVASCULAR SYSTEM: S1, S2 muffled. RESPIRATORY SYSTEM: Breath sounds diminished at the bases. Bilateral scattered rhonchi and crackles. ABDOMEN: Soft, obese, non-tender. LEGS: No edema. No swelling. NERVOUS SYSTEM: No focal deficit. LABS: WBC 23.6, hemoglobin 9.5. Sodium 143, potassium 4.3, glucose 114, calcium 6.8. ASSESSMENT: 1. Bilateral pneumonia, right more than the left, possibly aspiration with severe sepsis, hypotension and septic shock. 2. Acute hypoxic respiratory failure, on mechanical ventilation. 3. Atrial fibrillation with fast ventricular rate, status post Cardizem drip. 4. History of esophageal stenosis and stricture. 5. Bicytopenia with neutropenia as well as anemia. 6. Elevated lactic acid secondary to sepsis. 7. Hyperglycemia secondary to sepsis. 8. Troponin 0.05, indeterminate. 9. Recent history of Shobha's gangrene. 10.History of gastroesophageal reflux disease. 11.History of cerebrovascular accident, transient ischemic attack. 12.Hypertension. 13.History of degenerative joint disease. 14.History of pneumonia. 15.History of hiatal hernia. 16.History of gout. 17.History of bilateral peripheral neuropathy. 18.History of chronic back pain, degenerative joint disease. 19.History of constipation. 20.History of methicillin-resistant Staphylococcus aeruginosa. 21.History of bariatric surgery. 22.History of pain pump implantation. 23.History of gastric sleeve. 24.Anxiety, depression. 25.Remote history of nicotine dependence. 26.Obesity with body mass index of 30.8. 27.FULL CODE. RECOMMENDATIONS AND DISCUSSION: I recommend to continue current medications, continue with the monitoring, symptomatic treatment. Continue with the bronchodilators. Continue with empiric antibiotics. Follow the cultures. The urine culture showed Gram-negative bacilli. Will wait for the final ID. DVT prophylaxis. Otherwise, gastroenterology consultation and possible EGD and dilatations. Prognosis guarded. Further recommendations to follow. MMODL / IJN: [id number] /
[2020-03-21] MEDS: NOREPINEPHRINE 8 MG in SODIUM CHLORIDE 0.9% 250 ML IV SCH (18:57)
[2020-03-21 19:05] LABS: Glucose,Whole Blood 95 mg/dL (75-99)
[2020-03-21 20:07] LABS: Glucose,Whole Blood 139 mg/dL (75-99)
[2020-03-21] MEDS: MEROPENEM 1 GM in SODIUM CHLORIDE 0.9% 100 ML IVPB SCH (23:41)
--- NOTE | 2020-03-21 23:51 | PN ---
PROGRESS NOTE DATE OF SERVICE: 03/21/2020 REASON FOR FOLLOWUP: Sepsis with aspiration pneumonia. INTERVAL HISTORY: Patient is currently afebrile. The patient has been extubated. He is breathing comfortably with no oxygen. Denies any chest pain. He did have a cough, not bringing up any sputum. No further nausea. No vomiting. No abdominal pain or diarrhea. PHYSICAL EXAMINATION: Blood pressure 121/60 with a pulse of 85, temperature 98. He is 93% on 2 L nasal cannula. General description is a middle-aged male lying in bed in no distress. Respiratory system: Unlabored breathing, decreased breath sounds in the bases. No wheeze. Heart S1, S2. Regular rate and rhythm. Extremities are no edema of the feet. Abdomen soft, no tenderness. LABS: Hemoglobin 9.5, white count 23.6, BUN of 22, creatinine 0.93. Urine showing Klebsiella, that is ESBL. Sputum culture pending. Blood culture so far pending. DIAGNOSTIC IMPRESSION AND PLAN: Patient admitted to the hospital with sepsis, source likely combination of UTI and pneumonia likely aspiration etiology. Urine is now showing ESBL E coli. We will discontinue the Zosyn and start the patient on meropenem 1 g q.8 hours and monitor clinical course closely. MMODL / IJN: [id number] /
[2020-03-22 00:25] LABS: Glucose,Whole Blood 104 mg/dL (75-99)
[2020-03-22] MEDS: IPRATROPIUM-ALBUTEROL 3 ML NEB INHALATION SCH ×5 (03:23→19:34)
[2020-03-22] MEDS: INSULIN ASPART (NovoLOG) 100 UNIT/ML VIAL SQ SCH ×7 (03:27→20:47)
[2020-03-22 03:44] LABS: Glucose,Whole Blood 104 mg/dL (75-99)
[2020-03-22 03:59] LABS: Anisocytosis Slight; Basophils % (A) 0 %; Eosinophils % (A) 0 %; HGB 8.9 gm/dL (13.0-17.5); Hypochromasia Marked; Lymphocytes # (A) 0.7 k/uL (1.0-4.8); Lymphocytes % (A) 3 %; MCH 23.8 pg (25.0-35.0); MCHC 28.7 g/dL (31.0-37.0); MCV 82.7 fL (80.0-100.0); Monocytes # (A) 0.5 k/uL (0-1.0); Monocytes % (A) 2 %; Neutrophils # (A) 21.2 k/uL (1.3-7.7); Neutrophils % (A) 94 %; Platelet Count 199 k/uL (150-450); Poikilocytosis Slight; RBC 3.75 m/uL (4.30-5.90); RDW 17.2 % (11.5-15.5); WBC 22.5 k/uL (3.8-10.6)
[2020-03-22 04:35] LABS: African American GFR (CKD) >90 (>60 ml/min/1.73 sqM); Anion Gap 3 mmol/L; Blood Urea Nitrogen 20 mg/dL (9-20); Carbon Dioxide 26 mmol/L (22-30); Chloride 113 mmol/L (98-107); Glucose 110 mg/dL (74-99); Non-African American GFR(CKD) >90 (>60 ml/min/1.73 sqM); Potassium 3.7 mmol/L (3.5-5.1); Sodium 142 mmol/L (137-145)
[2020-03-22] MEDS ORDERED: POTASSIUM CHLORIDE 20 MEQ in WATER FOR INJECTION 1 100ML.BAG IVPB STA (04:39)
[2020-03-22] MEDS: DILTIAZEM 125 MG in SODIUM CHLORIDE 0.9% 100 ML IV SCH (05:01)
--- NOTE | 2020-03-22 07:23 | XR ---
EXAMINATION TYPE: XR chest 1V portable DATE OF EXAM: 03/22/2020 COMPARISON: 03/21/2020 HISTORY: Tube placement TECHNIQUE: Single frontal view of the chest is obtained. FINDINGS: Exam limited by patient rotation. ET and NG tube have been removed. Bilateral consolidatio n and small effusion seen. No sizable pneumothorax. Postsurgical change overlying the cervical spine. Linear density overlying the lower right lung field likely related to soft tissue artifact. Postsurg ical change left shoulder. IMPRESSION: Bilateral infiltrate and small effusion stable. Exam limited by extreme patient rotation .
[2020-03-22] MEDS: MEROPENEM 1 GM in SODIUM CHLORIDE 0.9% 100 ML IVPB SCH ×2 (08:33→16:12)
[2020-03-22] MEDS: HYDROCORTISONE 20 MG TAB PO SCH (08:34)
[2020-03-22] MEDS: PREGABALIN 100 MG CAP PO SCH ×2 (08:34→20:55)
[2020-03-22] MEDS: PANTOPRAZOLE 40 MG/10 ML VIAL IVP SCH (08:34)
[2020-03-22] MEDS: ESCITALOPRAM 10 MG TAB PO SCH (08:34)
[2020-03-22] MEDS: FUROSEMIDE 10 MG/ML 4 ML VIAL IV SCH ×2 (08:34→20:55)
[2020-03-22] MEDS: METOPROLOL TARTRATE 25 MG TAB PO SCH ×2 (08:34→20:55)
[2020-03-22] MEDS: SODIUM CHLORIDE 0.9% 1,000 ML IV SCH ×2 (08:35→16:12)
[2020-03-22] MEDS: LACOSAMIDE 50 MG TABLET PO SCH ×2 (08:38→21:16)
[2020-03-22 08:48] LABS: Glucose,Whole Blood 90 mg/dL (75-99)
--- NOTE | 2020-03-22 10:55 | PN ---
PROGRESS NOTE Mr. Barbosa is a 54-year-old male who presented with respiratory distress, requiring mechanical ventilation. He was extubated yesterday. He had episode of paroxysmal atrial fibrillation back in sinus mechanism. He is feeling well today. His breathing is better. He denies any symptoms of chest pain. He denies any dizziness. No palpitation. He continues to be at this time on IV heparin, IV Cardizem, metoprolol tartrate 25 mg daily. PHYSICAL EXAMINATION: Blood pressure 118/60 with a heart in the 60s. LUNGS: With a few crackles at the bases, more on the right base. HEART: Regular rate and rhythm, S1, S2. No S3. No rub. No gallop. ABDOMEN: Soft, nontender, positive bowel sounds. EXTREMITIES: +1 edema. LAB DATA: Revealed BUN and creatinine 20 and 0.83. Hemoglobin of 8.9, white blood cell of 22.5. His chest x-ray shows bilateral infiltrate. IMPRESSION: 1. Respiratory failure and pneumonia, improved. 2. Paroxysmal atrial fibrillation. 3. Chronic anemia. 4. History of cerebrovascular accident. 5. History of hypertension. 6. Prior history of cardiomyopathy, stable at this time. RECOMMENDATION: Will switch him to oral anticoagulation as well as stop the IV Cardizem, increase his level of activity. The patient has a history of esophageal stricture. Depending on his progress, further recommendation will be made. MMODL / IJN: [id number] /
[2020-03-22 12:00] LABS: Glucose,Whole Blood 81 mg/dL (75-99)
[2020-03-22] MEDS: HEPARIN SOD,PORK IN 0.45% NACL 25,000 UNIT in 0.45% NACL 1 250ML.BAG IV SCH (12:24)
--- NOTE | 2020-03-22 12:50 | P.PN ---
Subjective Progress Note Date: 03/22/20 Principal diagnosis: History of esophageal stricture, nausea, vomiting The patient was seen and evaluated at the bedside. He was admitted for acute respiratory distress and had required mechanical ventilation. He was extubated 2 days ago. He is doing well overall. Cardiology is discontinuing his heparin drip and transitioning him to oral anticoagulation, his Cardizem drip will also be discontinued and manage with oral medications. He is tolerating a clear liquid diet without any difficulty. He denies any abdominal pain, nausea, or vomiting. Objective - Vital Signs Vital signs: Vital Signs Temp 97.7 F 03/22/20 12:00 Pulse 69 03/22/20 12:09 Resp 15 03/22/20 12:00 BP 125/87 03/22/20 12:00 Pulse Ox 95 03/22/20 12:00 Intake & Output 03/21/20 03/22/20 03/22/20 18:59 06:59 18:59 Intake Total 2076.508 1405 701 Output Total 110 360 9819 Balance 1515.508 977 -1177 Weight 129.2 kg Intake: IV 1269 1205 231 Sodium Chloride 0.9% 1, 1125 1175 225 000 ml @ 40 mls/hr IV . Q24H [facility]ATT Rx#:[id number] cardizem 5 pressure bag 39 30 6 zosyn 100 Intake, IV Titration 807.508 200 470 Amount Heparin Sod,Pork in 0.45% 215.603 250 NaCl 25,000 unit In 0.45 % NaCl 1 250ml.bag @ 9.18 UNITS/KG/HR 9.994 mls/hr IV .Q24H MATT Rx#: [id number] Meropenem 1 gm In Sodium 100 100 Chloride 0.9% 100 ml @ 33 .3 mls/hr IVPB Q8HR MATT Rx#:[id number] Norepinephrine 8 mg In 16.216 Sodium Chloride 0.9% 250 ml @ 0.05 MCG/KG/MIN 10. 532 mls/hr IV .Q24H MATT Rx#:[id number] Potassium Chloride 20 meq 100 In Water For Injection 1 100ml.bag @ 50 mls/hr IVPB ONCE STA Rx#: [id number] Sodium Chloride 0.9% 1, 500 120 000 ml @ 40 mls/hr IV . Q24H [facility]ATT Rx#:[id number] propofoL 1,000 mg In 75.689 Empty Bag 1 bag @ Titrate IV .Q0M MATT Rx#: [id number] Output: Urine 390 505 1720 Other: Voiding Method Indwelling Catheter Indwelling Catheter Indwelling Catheter ABP, PAP, CO, CI - Last Documented Arterial Blood Pressure 133/75 - Exam General appearance: The patient is alert, oriented, in no acute distress. HET: Head is normocephalic and atraumatic. Conjunctiva pink. Sclera anicteric. Neck: Supple without lymphadenopathy. . Heart: S1 S2. Regular rate and rhythm. Lungs: Clear to auscultation. Abdomen: Soft, mild epigastric tenderness, nondistended with bowel sounds. No palpable organomegaly, guarding or rigidity.. Extremities: Normal skin color and turgor. Neurological: No focal deficits. Alert and oriented 3. - Labs CBC & Chem 7: 03/22/20 03:40 03/22/20 03:40 Labs: Abnormal Lab Results - Last 24 Hours (Table) 03/21/20 03/22/20 03/22/20 Range/Units 20:05 00:24 03:40 WBC 22.5 H (3.8-10.6) k/uL RBC 3.75 L (4.30-5.90) m/uL Hgb 8.9 L (13.0-17.5) gm/dL Hct 31.0 L (39.0-53.0) % MCH 23.8 L (25.0-35.0) pg MCHC 28.7 L (31.0-37.0) g/dL RDW 17.2 H (11.5-15.5) % Neutrophils # 21.2 H (1.3-7.7) k/uL Lymphocytes # 0.7 L (1.0-4.8) k/uL APTT (22.0-30.0) sec Chloride (98-107) mmol/L Glucose (74-99) mg/dL POC Glucose (mg/dL) 139 H 104 H (75-99) mg/dL Calcium (8.4-10.2) mg/dL 03/22/20 03/22/20 03/22/20 Range/Units 03:40 03:40 03:42 WBC (3.8-10.6) k/uL RBC (4.30-5.90) m/uL Hgb (13.0-17.5) gm/dL Hct (39.0-53.0) % MCH (25.0-35.0) pg MCHC (31.0-37.0) g/dL RDW (11.5-15.5) % Neutrophils # (1.3-7.7) k/uL Lymphocytes # (1.0-4.8) k/uL APTT 43.5 H (22.0-30.0) sec Chloride 113 H (98-107) mmol/L Glucose 110 H (74-99) mg/dL POC Glucose (mg/dL) 104 H (75-99) mg/dL Calcium 7.0 L (8.4-10.2) mg/dL Microbiology - Last 24 Hours (Table) 03/19/20 22:35 Gram Stain - Final Sputum Sputum Culture - Final 03/19/20 22:31 Blood Culture - Preliminary Blood No Growth after 48 hours 03/19/20 22:16 Blood Culture - Preliminary Blood No Growth after 48 hours 03/19/20 15:35 Urine Culture - Final Urine,Clean Catch Klebsiella pneumoniae 03/19/20 12:49 Blood Culture - Preliminary Blood No Growth after 48 hours Assessment and Plan Assessment: 1. Acute respiratory failure secondary to bilateral pneumonia on broad-spectrum antibiotics 2. Sepsis, septic shock on low-dose vasopressors 3. History of esophageal stricture status post balloon dilation by Dr. Carbajal 2 months ago. He was having passive regurgitation with OG-tube. Dysphasia with solid foods, 4. Severe leukocytosis secondary to pneumonia 5. History of hypertension and cerebrovascular accident in the past. Plan: 1. Continue broad spectrum antibiotics 2. Continue Protonix 40 mg daily 3. Full liquid diet, nothing by mouth after midnight 4. Patient is scheduled for EGD tomorrow with Dr. Sellers . 5. Monitor labs closely 6. ICU for medical management 7. Will follow with you closely The impression and plan of care has been dictated as directed. Dr. Amirah Sellers I performed a history and examination of this patient, discussed the same with the dictator. I agree with the dictator's note ,documented as a scribe. Any additional findings or plans will be noted.
--- NOTE | 2020-03-22 15:02 | PN ---
PROGRESS NOTE PULMONARY/CRITICAL CARE PROGRESS NOTE: DATE OF SERVICE: 03/22/2020 CRITICAL CARE TIME: 32 minutes. This is a 54-year-old black male with a history of acute hypoxemic and hypercapnic respiratory failure secondary to pneumonia. The pneumonia probably relates to underlying aspiration, as the patient does have a history of esophageal stricture requiring dilatation. The patient required intubation and mechanical ventilation on March 19, 2020. I am happy to report that he was successfully extubated on March 21, 2020. In addition to the above, the patient has a history of septic shock, lactic acidosis, chronic anemia, morbid obesity, status post gastric sleeve procedure December 2019, atrial fibrillation with RVR, CVA, hypertension, chronic back pain, esophageal stricture, nonischemic cardiomyopathy, diabetes, and previous tobacco use. The patient was extubated yesterday with excellent weaning parameters and a positive cuff leak. Yesterday's blood gases were excellent with a pO2 of 104, pCO2 of 40 and a pH 7.42. Currently, the patient has been extubated to 3 L nasal cannula, remains on Cardizem drip of 5 mg an hour, 0.9 at 125 mL an hour and heparin via weight based protocol. The patient's urine was positive for Klebsiella pneumoniae, which is an extended spectrum beta lactamase producing organism. The patient was on Zosyn, currently on Merrem. The patient is feeling well. Doing much better. Current vital signs are reviewed, temperature is 98, heart rate 66, respiratory rate 12, blood pressure 118/67 and 3 L saturation 96%. There is no acute distress. HEENT: Examination is grossly unremarkable. NECK: Supple, full range of motion. No adenopathy. Neck veins are flat. CARDIOVASCULAR: Examination reveals regular rhythm and rate. Heart rate mid 60s. S1, S2 normal. Heart sounds are distant. LUNGS: A few scattered rhonchi. There are a few scattered crackles. No wheezes. Breath sounds equal. ABDOMEN: Soft bowel sounds are not noted. EXTREMITIES: Intact. Slight edema. SKIN: Without rash. NEUROLOGIC: Examination is nonfocal. LABS: Reviewed. White count 22.5, hemoglobin 8.9, hematocrit 31.0, platelet count 199,000, PTT is 43.5. Sodium 142, potassium 3.7, chloride is 113, CO2 is 26, anion gap is 3. BUN and creatinine were 20 and 0.83. Microbiologic study show urine to be positive for ESBL Klebsiella pneumoniae as mentioned above. X-rays are reviewed. Chest x-ray from March 22, 2020 shows bilateral infiltrates and small effusions, all of which are stable. CURRENT MEDICATIONS: Reviewed. The patient is currently on Tylenol, Lexapro, Lasix, IV heparin, Cortef 20 mg q.a.m. and 10 mg q.p.m., insulin sliding scale, DuoNeb, Vimpat, meropenem, metoprolol, Narcan, Protonix, potassium replacement, and Lyrica. ASSESSMENT: 1. Acute hypoxemic hypercapnic respiratory failure secondary to pneumonia, likely related to underlying aspiration, with intubation and mechanical ventilation on March 19, 2020 and successful extubation on March 21, 2020. 2. Acute septic shock, secondary to pneumonia and/or urinary tract infection, resolved. 3. Recently discovered gram-negative bacilli in the urine, secondary to ESBL producing Klebsiella. 4. No evidence of pulmonary embolism on CT angiogram. 5. Lactic acidosis, resolved. 6. Chronic anemia. 7. Morbid obesity, status post gastric sleeve, December of this year. 8. Atrial fibrillation with rapid ventricular response, currently on a Cardizem drip. 9. Elevated troponin, which may relate to supply/demand mismatch in atrial fibrillation. 10.History of cerebrovascular accident. 11.Hypertension by history next history of back surgery for chronic back pains and subsequent pain pump implantation. 12.History of esophageal stricture with multiple dilatations. 13.Nonischemic cardiomyopathy. 14.Diabetes mellitus. 15.Previous history of tobacco use. PLAN: The patient is doing reasonably well. He is still quite ill. The patient will continued to followed here in the ICU. The patient is currently on Merrem as an antibiotic. I did tell Cardiology they could switch his Cardizem to p.o. heparin to p.o. medications. Additional recommendations and suggestions are forthcoming. Prognosis is guarded. He will continue to be encouraged to use the incentive spirometer q.1 hour while awake. The patient continues on antibiotics. Overall prognosis is guarded. CRITICAL CARE TIME: 33 minutes. GALINA / JUDY: [id number] /
[2020-03-22] MEDS: NOREPINEPHRINE 8 MG in SODIUM CHLORIDE 0.9% 250 ML IV SCH (16:12)
[2020-03-22 16:29] LABS: Glucose,Whole Blood 77 mg/dL (75-99)
[2020-03-22] MEDS: PANTOPRAZOLE 40 MG TABLET PO SCH (17:32)
--- NOTE | 2020-03-22 18:33 | PN ---
PROGRESS NOTE DATE OF SERVICE: 03/22/2020 This 54-year-old gentleman who was admitted with bilateral pneumonia, right more than the left, was also suspected to have aspiration pneumonia. The patient also has esophageal stenosis. Gastroenterology is following the patient closely. Possibly endoscopy will be done tomorrow. The patient is also on broad-spectrum IV antibiotics. The patient also was on Cardizem for atrial fibrillation, currently on IV heparin also. Sensorium is significantly improved. Past medical history reviewed. REVIEW OF SYSTEMS: CARDIOVASCULAR SYSTEM: As mentioned earlier. RESPIRATORY SYSTEM: As mentioned earlier. GI: As mentioned earlier. : No dysuria or retention. NERVOUS SYSTEM: No numbness, weakness. CURRENT MEDICATIONS: Tylenol, DuoNeb, Lexapro, Lasix, heparin drip, Cortef, NovoLog, Vimpat, meropenem, potassium, Narcan, Lyrica. PHYSICAL EXAMINATION: Patient is alert, oriented x3. Pulse 71, blood pressure 122/87, respiration 12, temperature 98 degrees, pulse ox 94% on 3 L. HEENT: Conjunctivae normal. NECK: No jugular venous distention. CARDIOVASCULAR SYSTEM: S1, S2 muffled. RESPIRATORY SYSTEM: Breath sounds diminished at the bases. A few scattered rhonchi and crackles. ABDOMEN: Soft, non-tender. LEGS: No edema. No swelling. NERVOUS SYSTEM: No focal deficit. LABS: Labs at this time show WBC 22.5 and hemoglobin 8.9. Sodium 142, potassium 3.7. ASSESSMENT: 1. Bilateral pneumonia, right more than left, possibly aspiration with severe sepsis, hypotension, septic shock. 2. Acute hypoxic respiratory failure, on mechanical ventilation. 3. COVID-19 ruled out. 4. Atrial fibrillation with a fast ventricular rate, status post Cardizem drip, paroxysmal atrial fibrillation. 5. History of esophageal stricture and stenosis and repeated EGD and dilatations. 6. Bicytopenia with neutropenia as well as anemia. 7. Elevated lactic acid secondary to sepsis, present on admission. 8. Hyperglycemia secondary to sepsis. 9. Troponin 0.05, indeterminate. 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 11.History of gastroesophageal reflux disease. 12.History of cerebrovascular accident, transient ischemic attack. 13.Hypertension. 14.History of degenerative joint disease. 15.History of pneumonia. 16.History of hiatal hernia. 17.History of gout. 18.History of bilateral peripheral neuropathy. 19.History of chronic back pain, degenerative joint disease. 20.History of constipation. 21.History of methicillin-resistant Staphylococcus aeruginosa. 22.History of bariatric surgery. 23.History of pain pump implantation. 24.History of gastric sleeve. 25.Anxiety, depression. 26.Remote history of nicotine dependence. 27.Obesity with body mass index of 30.8. 28.FULL CODE. RECOMMENDATIONS AND DISCUSSION: I recommend to continue current medications, continue with the monitoring, symptomatic treatment. Continue the bronchodilators. Continue with antibiotics. Follow closely with Gastroenterology. Discussed with Dr. Sellers at length, who will be doing the endoscopy. Otherwise, continue the diet. Continue with the current medications. Aspiration precautions. The prognosis is extremely guarded because of multiple complex medical issues. Further recommendations to follow. MMODL / IJN: [id number] /
[2020-03-22 20:20] LABS: Glucose,Whole Blood 76 mg/dL (75-99)
[2020-03-22] MEDS: HYDROCORTISONE 10 MG TAB PO SCH (20:55)
--- NOTE | 2020-03-22 23:25 | PN ---
PROGRESS NOTE DATE OF SERVICE: 03/22/2020 REASON FOR FOLLOWUP: ESBL Klebsiella urinary tract infection and aspiration pneumonia. INTERVAL HISTORY: The patient is currently afebrile. The patient is breathing more comfortably. Denies having any chest pain or shortness of breath or cough. No abdominal pain or diarrhea. PHYSICAL EXAMINATION: Blood pressure 122/87 with a pulse of 71, temperature 98. He is 95% on 3 L nasal cannula. General description is a middle-aged male lying in bed in no distress. RESPIRATORY SYSTEM: Unlabored breathing with decreased breath sounds at the base. No wheeze. HEART: S1, S2. Regular rate and rhythm. ABDOMEN: Soft. No tenderness. LABS: Hemoglobin 8.9, white count 2.5, BUN of 20, creatinine 0.83. Blood culture negative. Urine with ESBL Klebsiella. Sputum is so far negative. DIAGNOSTIC IMPRESSION AND PLAN: Patient with extended-spectrum beta-lactamase Klebsiella urinary tract infection with a component of pneumonia, aspiration etiology. Patient is currently covered with meropenem 1 gram q.8; to continue and monitor his clinical course closely. MMODL / IJN: [id number] /
[2020-03-23] MEDS: MEROPENEM 1 GM in SODIUM CHLORIDE 0.9% 100 ML IVPB SCH ×3 (00:14→16:50)
[2020-03-23] MEDS: IPRATROPIUM-ALBUTEROL 3 ML NEB INHALATION SCH ×6 (01:29→19:03)
[2020-03-23] MEDS: HEPARIN SOD,PORK IN 0.45% NACL 25,000 UNIT in 0.45% NACL 1 250ML.BAG IV SCH (05:51)
[2020-03-23 05:52] LABS: Anisocytosis Slight; HCT 33.9 % (39.0-53.0); HGB 9.5 gm/dL (13.0-17.5); Hypochromasia Marked; MCH 23.6 pg (25.0-35.0); MCHC 28.1 g/dL (31.0-37.0); MCV 84.1 fL (80.0-100.0); Mean Platelet Volume 9.4; Platelet Count 159 k/uL (150-450); Poikilocytosis Slight; RBC 4.04 m/uL (4.30-5.90); RDW 16.7 % (11.5-15.5); WBC 13.3 k/uL (3.8-10.6)
[2020-03-23 05:59] LABS: African American GFR (CKD) >90 (>60 ml/min/1.73 sqM); Anion Gap 2 mmol/L; Blood Urea Nitrogen 18 mg/dL (9-20); Calcium 7.8 mg/dL (8.4-10.2); Carbon Dioxide 28 mmol/L (22-30); Chloride 110 mmol/L (98-107); Glucose 77 mg/dL (74-99); Non-African American GFR(CKD) >90 (>60 ml/min/1.73 sqM); Potassium 3.2 mmol/L (3.5-5.1); Sodium 140 mmol/L (137-145)
[2020-03-23 06:16] LABS: Band Neutrophils % 5 %; Lymphocytes # (M) 2.53 k/uL (1.0-4.8); Neutrophils % (M) 70 %; Nucleated Red Blood Cells 0 /100 WBC (0-0); Total Cells Counted 100
[2020-03-23 06:18] LABS: Anisocytosis (M) Present; Toxic Granulation Present; Toxic Vacuolation Present
[2020-03-23] MEDS: PANTOPRAZOLE 40 MG TABLET PO SCH ×2 (06:27→16:50)
[2020-03-23 06:33] LABS: Glucose,Whole Blood 83 mg/dL (75-99)
[2020-03-23] MEDS: INSULIN ASPART (NovoLOG) 100 UNIT/ML VIAL SQ SCH ×4 (06:33→20:59)
[2020-03-23] MEDS: POTASSIUM CHLORIDE 20 MEQ in WATER FOR INJECTION 1 100ML.BAG IVPB SCH ×4 (06:35→20:32)
[2020-03-23] MEDS ORDERED: POTASSIUM CHLORIDE ER 20 MEQ TAB.ER PO SCH (07:00)
--- NOTE | 2020-03-23 07:20 | XR ---
EXAMINATION TYPE: XR chest 1V DATE OF EXAM: 03/23/2020 HISTORY: Shortness of breath. COMPARISON: 03/22/2020 TECHNIQUE: Single view of the chest is submitted. Examination limited by patient rotation. FINDINGS: Demonstrated are scattered senescent parenchymal change. Persistent basilar atelectasis and/or infiltrates. The heart is stable. Hilar and mediastinal structures are within normal limits. Degenerative changes are seen of the dorsal spine. IMPRESSION: 1. Essentially stable chest.
[2020-03-23] MEDS: FUROSEMIDE 10 MG/ML 4 ML VIAL IV SCH ×2 (08:29→21:11)
[2020-03-23] MEDS: PREGABALIN 100 MG CAP PO SCH ×2 (08:36→21:11)
[2020-03-23] MEDS: METOPROLOL TARTRATE 25 MG TAB PO SCH ×2 (08:36→21:11)
[2020-03-23] MEDS: HYDROCORTISONE 20 MG TAB PO SCH (08:36)
[2020-03-23] MEDS: ESCITALOPRAM 10 MG TAB PO SCH (08:41)
[2020-03-23] MEDS: LACOSAMIDE 50 MG TABLET PO SCH ×2 (08:41→21:11)
--- NOTE | 2020-03-23 10:29 | PN ---
PROGRESS NOTE Mr. Barbosa is a 54-year-old male who presented with respiratory failure with evidence of pneumonia, was intubated, had episode of atrial fibrillation. He has been extubated since. He continues to be in sinus mechanism. He has difficulties swallowing. He is scheduled to undergo endoscopy today. He is denying any symptoms of chest pain. He denies any symptoms of dizziness. No palpitation. He denies any nausea. His breathing is better. He is not active at baseline. He has a history of esophageal stricture and he may have had an aspiration. He continues to be at this time on furosemide 40 mg IV q.12 hours, IV heparin, Solu- Cortef, metoprolol tartrate 25 mg twice a day. PHYSICAL EXAMINATION: Blood pressure 120/80 with a heart rate in the 60s. LUNGS: Clear. HEART: Regular rate and rhythm, S1, S2. No S3. No rub appreciated. ABDOMEN: Soft, nontender. Positive bowel sounds, no organomegaly. EXTREMITIES: 1+ edema bilaterally. LAB DATA: Revealed a hemoglobin if 9.5 BUN, creatinine of 18.83, potassium 3.2, calcium 7.2. IMPRESSION: 1. Respiratory failure with possible aspiration pneumonia, improving. 2. Prior intubation, the patient is extubated. 3. Paroxysmal atrial fibrillation remains sinus mechanism. 4. Esophageal strictures. 5. Prior history of gastric sleeve. 6. History of chronic pain. 7. History of cerebrovascular accident. 8. Diabetes mellitus. RECOMMENDATION: From the cardiac standpoint, we will continue on the present therapy. Will await endoscopy today and after that, I will recommend to switch him to Eliquis 5 mg twice a day. In view of the atrial fibrillation and a prior history of cerebrovascular accident. Will continue on the rest of his medication. Follow his blood pressure and depending on his progress, further recommendation will be made. MMODL / IJN: [id number] /
[2020-03-23] MEDS ORDERED: DEXTROSE 50% SYRINGE 50 ML IVP STA ×2 (11:48→12:15)
[2020-03-23 11:56] LABS: Glucose,Whole Blood 25 mg/dL (75-99)
[2020-03-23 11:56] LABS: Glucose,Whole Blood 26 mg/dL (75-99)
[2020-03-23 12:10] LABS: Glucose,Whole Blood 51 mg/dL (75-99)
[2020-03-23 12:10] LABS: Glucose,Whole Blood 53 mg/dL (75-99)
[2020-03-23] MEDS ORDERED: DEXTROSE 50% SYRINGE 50 ML IVP ONE (12:17)
[2020-03-23] MEDS ORDERED: DEXTROSE 5% IN WATER 1,000 ML IV ONE (12:32)
[2020-03-23 12:34] LABS: Glucose,Whole Blood 73 mg/dL (75-99)
[2020-03-23 12:57] LABS: Glucose,Whole Blood 84 mg/dL (75-99)
--- NOTE | 2020-03-23 14:18 | CDI ---
Documentation Clarification Form Date: 03/23/2020 01:49:56 PM From: Alexandrea Oneill RN CCDS Admit Date: 03/19/2020 03:01:00 PM Patient Name: Kevin Barbosa Visit Number: [id number] Discharge Date: ATTENTION: The Clinical Documentation Specialists (CDI) and [facility] Coding Staff appreciate your assistance in clarifying documentation. Please respond to the clarification below the line at the bottom and electronically sign. The CDI & [facility] Coding staff will review the response and follow-up if needed. Please note: Queries are made part of the Legal Health Record. If you have any questions, please contact the author of this message via ITS. Dr. Edgar Jauregui Conflicting documentation has been found in the medical record: Pulmonology Progress Note 03/22: Elevated troponin, which may relate to supply/demand mismatch in atrial fibrillation. Internal Medicine Progress Note 03/22: Troponin 0.05, indeterminate. History/Risk Factors: 54-year-old male presents to the for weakness, shortness of breath and confusion. Recent hospitalization for sepsis and pneumonia. Medical History, A.Fib, HTN, CHF Clinical Indicators: 03/19 B/P: 77/45; HR: 146; Temp: 102.5 F Oral; RR: 20; SpO2 94% room air 03/19 Troponin 0.052 03/19 14:54 EKG: Atrial Fibrillation with rapid ventricular response with premature ventricular or aberrantly conducted complexes. ST depression consider subendocardial injury. Abnormal QRS-T angle consider primary T wave abnormality. 03/19 12:32 EKG: Atrial Fibrillation with rapid ventricular response. Septal infarct, age undetermined. Marked ST abnormality, possible inferior subendocardial injury Treatment: 03/19 Heparin Ivpb, Cardizem IV X1; Diltiazem Ivpb d/c 03/22, 03/22 Lasix IV Q 12hr In your professional opinion, can you please clarify the clinical significance of the Troponins? Type 2 CO secondary to Atrial Fibrillation CO other please specify Other explanation of clinical findings Unable to determine (no explanation for clinical findings) (Last Revision: September 2017) Unable to determine (no explanation for clinical findings) MTDD
--- NOTE | 2020-03-23 14:40 | CDI ---
Documentation Clarification Form Date: 03/23/2020 02:20:08 PM From: Alexandrea Oneill RN CCDS Admit Date: 03/19/2020 03:01:00 PM Patient Name: Kevin Barbosa Visit Number: [id number] Discharge Date: ATTENTION: The Clinical Documentation Specialists (CDI) and [facility] Coding Staff appreciate your assistance in clarifying documentation. Please respond to the clarification below the line at the bottom and electronically sign. The CDI & [facility] Coding staff will review the response and follow-up if needed. Please note: Queries are made part of the Legal Health Record. If you have any questions, please contact the author of this message via ITS. Dr. Edgar Juaregui Altered Mental Status was documented in the ED 03/19 and GI consult 03/20 History/Risk Factors: 54-year-old male presents to the for weakness, shortness of breath and confusion. Recent hospitalization for sepsis and pneumonia. Medical History, A.Fib, HTN and CHF. Admitted with Sepsis, Pneumonia Clinical Indicators: 03/19 B/P: 77/45; HR: 146; Temp: 102.5 F Oral; RR: 20; SpO2 94% room air 03/19 Labs: Wbc 2.3; Hgb 10.9; D-Dimer 25.02, Lactic acid 5.9, Alk Phos 131; Troponin 0.052, Urine Culture: Klebsiella pneumoniae 03/19CXR: new mild infiltrate 03/[address]: Normal Treatment:03/19 Cefepime Ivpb d/c 03/20; 03/19 Rocephin Ivpb Daily x1; 03/20 Meropenem Ivpb, 03/19 Vancomycin Ivpb d/c 03/20 In your professional opinion, please clarify the etiology of the Altered Mental Status, if known. Dementia (if know, specify Type and if with/without Behavioral Disturbance) Metabolic Encephalopathy (specify Type and Underlying Medical Illness) Other condition (please specify) Unable to determine (Last Revision: September 2017) Metabolic Encephalopathy multifactorial MTDD
--- NOTE | 2020-03-23 14:49 | PN ---
PROGRESS NOTE PULMONARY/CRITICAL CARE PROGRESS NOTE: DATE OF SERVICE: 03/23/2020 INTERVAL HISTORY: A 54-year-old black male with a history of acute hypoxemic and hypercapnic respiratory failure secondary to pneumonia. The pneumonia probably relates to underlying aspiration as the patient does have a history of esophageal stricture. The patient required intubation and mechanical ventilation on March 19 and was extubated successfully on March 21, 2020. The patient has a history of septic shock, lactic acidosis, chronic anemia, morbid obesity, previous gastric sleeve procedure December 2019, atrial fibrillation with RVR, CVA, hypertension, chronic back pain, esophageal stricture, nonischemic cardiomyopathy, diabetes, and previous tobacco use. Currently, the patient is on O2 at 3 L by nasal cannula. He is getting heparin via weight based protocol and saline at 40 mL an hour. His urine did grow out extended spectrum beta lactamase producing Klebsiella pneumoniae. He is scheduled for an EGD today. If that turns out okay, the patient's heparin can be discontinued in favor of oral anticoagulation. He is feeling well. His ART line was removed. PHYSICAL EXAMINATION: VITAL SIGNS: Current vital signs are reviewed. Temperature is 97.5, heart rate 66, respiratory rate 14, blood pressure 120/81, mean 94, 3 L saturation 98%. Appears in no acute distress. HEENT: Examination is grossly unremarkable. Mucous membranes are moist. Nasal O2 in place. NECK: Supple with full range of motion. No adenopathy. Neck veins are flat. CARDIOVASCULAR: Examination reveals regular rhythm and rate. Heart rate 66. S1, S2 normal. No murmur. LUNGS: Reveal coarse bilateral rhonchi. Breath sounds equal. No wheezes. ABDOMEN: Soft. EXTREMITIES: Intact. No significant edema. SKIN: Without rash. NEUROLOGIC: Examination is nonfocal. LABS: Reviewed. White count 13.3, hemoglobin 9.5, hematocrit 33.9, platelet count 139,000. PTT is 40. Sodium 140, potassium 3.2, chloride 110, CO2 28, anion gap is 2. BUN and creatinine were 18 and 0.83. Microbiology is positive for Klebsiella pneumoniae, ESBL, from the urine on March 19. IMAGING: Chest x-ray from today continues to show bilateral diffuse infiltrates. MEDICATIONS: Reviewed. The patient is currently on Tylenol, Lexapro, Lasix, IV heparin, Cortef, insulin, updrafts, Vimpat, meropenem, metoprolol, Narcan, Protonix, potassium replacement, and Lyrica. ASSESSMENT: 1. Acute hypoxemic and hypercapnic respiratory failure secondary to aspiration pneumonia, with intubation and mechanical ventilation on March 19 and successful extubation on March 21. 2. Acute septic shock, secondary to pneumonia and/or urinary tract infection, improved. 3. Recently discovered gram-negative bacilli in the urine, secondary to the extended spectrum beta lactamase producing Klebsiella pneumoniae. 4. No evidence of pulmonary embolism on CT angiogram. 5. Lactic acidosis, resolved. 6. Chronic anemia. 7. Morbid obesity, status post gastric sleeve, December 2019. 8. Atrial fibrillation with rapid ventricular response, currently controlled. 9. Elevated troponin, likely related to underlying sepsis and/or supply/demand mismatch. 10.History of cerebrovascular accident. 11.History of hypertension. 12.History of back surgery for chronic back pain and subsequent pain pump implantation. 13.History of esophageal stricture with multiple dilatations. 14.Nonischemic cardiomyopathy. 15.Diabetes mellitus. 16.Previous history of tobacco use. PLAN: The patient is doing reasonably well. The patient is going for an EGD today. Afterwards, the IV heparin can be converted to an oral anticoagulant. The patient may need long-term antibiotics or switch to an oral antibiotic for the Klebsiella pneumoniae in the urine. It is an extended spectrum beta lactamase Klebsiella. Additional recommendations and suggestions are forthcoming. Prognosis is guarded. No additional recommendations are made. We will continue to follow. MMODL / IJN: [id number] /
--- NOTE | 2020-03-23 14:51 | P.PN ---
Subjective Progress Note Date: 03/23/20 Principal diagnosis: History of esophageal stricture, nausea, vomiting The patient was seen and evaluated at the bedside. He was admitted for acute respiratory distress and had required mechanical ventilation. He was extubated 2 days ago. He is doing well overall. He has been tolerating a full liquid diet without any difficulty with swallowing. There is been no acute changes through the night. The patient was scheduled for an upper endoscopy today, however patient had been on a heparin drip and was not discontinued. Patient is going to be rescheduled for upper endoscopy tomorrow with discontinuation of heparin drip 6 hours prior to procedure. Objective - Vital Signs Vital signs: Vital Signs Temp 97 F L 03/23/20 08:00 Pulse 64 03/23/20 11:44 Resp 22 03/23/20 08:00 BP 126/90 03/23/20 08:00 Pulse Ox 97 03/23/20 08:00 Intake & Output 03/22/20 03/23/20 03/23/20 18:59 06:59 18:59 Intake Total 981 930 320 Output Total 3194 2143 1890 Balance -2213 -1213 -1570 Weight 128.1 kg 128.1 kg Intake: IV 511 680 320 Meropenem 1 gm In Sodium 100 100 Chloride 0.9% 100 ml @ 33 .3 mls/hr IVPB Q8HR [facility] Rx#:[id number] Potassium Chloride 20 meq 100 In Water For Injection 1 100ml.bag @ 50 mls/hr IVPB Q2H [facility] Rx#: [id number] Sodium Chloride 0.9% 1, 505 480 120 000 ml @ 40 mls/hr IV . Q24H [facility] Rx#:[id number] pressure bag 6 zosyn 100 Intake, IV Titration 470 250 Amount Heparin Sod,Pork in 0.45% 250 250 NaCl 25,000 unit In 0.45 % NaCl 1 250ml.bag @ 9.18 UNITS/KG/HR 9.994 mls/hr IV .Q24H [facility] Rx#: [id number] Meropenem 1 gm In Sodium 100 Chloride 0.9% 100 ml @ 33 .3 mls/hr IVPB Q8HR [facility] Rx#:[id number] Norepinephrine 8 mg In 0 Sodium Chloride 0.9% 250 ml @ 0.05 MCG/KG/MIN 10. 532 mls/hr IV .Q24H [facility] Rx#:[id number] Sodium Chloride 0.9% 1, 120 000 ml @ 40 mls/hr IV . Q24H [facility] Rx#:[id number] Output: Urine 3191 4313 1890 Other: Voiding Method Indwelling Catheter Indwelling Catheter Indwelling Catheter ABP, PAP, CO, CI - Last Documented Arterial Blood Pressure 133/75 - Exam General appearance: The patient is alert, oriented, in no acute distress. HET: Head is normocephalic and atraumatic. Conjunctiva pink. Sclera anicteric. Neck: Supple without lymphadenopathy. . Heart: S1 S2. Regular rate and rhythm. Lungs: Clear to auscultation. Abdomen: Soft, mild epigastric tenderness, nondistended with bowel sounds. No palpable organomegaly, guarding or rigidity.. Extremities: Normal skin color and turgor. Neurological: No focal deficits. Alert and oriented 3. - Labs CBC & Chem 7: 03/23/20 04:05 03/23/20 04:05 Labs: Abnormal Lab Results - Last 24 Hours (Table) 03/23/20 03/23/20 03/23/20 Range/Units 04:05 04:05 04:05 WBC 13.3 H (3.8-10.6) k/uL RBC 4.04 L (4.30-5.90) m/uL Hgb 9.5 L (13.0-17.5) gm/dL Hct 33.9 L (39.0-53.0) % MCH 23.6 L (25.0-35.0) pg MCHC 28.1 L (31.0-37.0) g/dL RDW 16.7 H (11.5-15.5) % Neutrophils # (Manual) 9.90 H (1.3-7.7) k/uL APTT 40.0 H (22.0-30.0) sec Potassium 3.2 L (3.5-5.1) mmol/L Chloride 110 H (98-107) mmol/L POC Glucose (mg/dL) (75-99) mg/dL Calcium 7.8 L (8.4-10.2) mg/dL 03/23/20 03/23/20 03/23/20 Range/Units 11:44 11:45 12:07 WBC (3.8-10.6) k/uL RBC (4.30-5.90) m/uL Hgb (13.0-17.5) gm/dL Hct (39.0-53.0) % MCH (25.0-35.0) pg MCHC (31.0-37.0) g/dL RDW (11.5-15.5) % Neutrophils # (Manual) (1.3-7.7) k/uL APTT (22.0-30.0) sec Potassium (3.5-5.1) mmol/L Chloride (98-107) mmol/L POC Glucose (mg/dL) 26 L 25 L 51 L (75-99) mg/dL Calcium (8.4-10.2) mg/dL 03/23/20 03/23/20 Range/Units 12:09 12:30 WBC (3.8-10.6) k/uL RBC (4.30-5.90) m/uL Hgb (13.0-17.5) gm/dL Hct (39.0-53.0) % MCH (25.0-35.0) pg MCHC (31.0-37.0) g/dL RDW (11.5-15.5) % Neutrophils # (Manual) (1.3-7.7) k/uL APTT (22.0-30.0) sec Potassium (3.5-5.1) mmol/L Chloride (98-107) mmol/L POC Glucose (mg/dL) 53 L 73 L (75-99) mg/dL Calcium (8.4-10.2) mg/dL Microbiology - Last 24 Hours (Table) 03/19/20 22:31 Blood Culture - Preliminary Blood No Growth after 72 hours 03/19/20 22:16 Blood Culture - Preliminary Blood No Growth after 72 hours 03/19/20 12:49 Blood Culture - Preliminary Blood No Growth after 72 hours Assessment and Plan Assessment: 1. Acute respiratory failure secondary to bilateral pneumonia on broad-spectrum antibiotics 2. Sepsis, septic shock on low-dose vasopressors 3. History of esophageal stricture status post balloon dilation by Dr. Carbajal 2 months ago. He was having passive regurgitation with OG-tube. Dysphasia with solid foods, 4. Severe leukocytosis secondary to pneumonia 5. History of hypertension and cerebrovascular accident in the past. Plan: 1. Continue broad spectrum antibiotics 2. Continue Protonix 40 mg daily 3. Full liquid diet, nothing by mouth after midnight 4. Patient is scheduled for EGD tomorrow with Dr. Sellers 5. Heparin drip to be discontinued 6 hours prior to EGD, should be discontinued at 07 100. 6. Monitor labs closely 7. ICU for medical management 8. Will follow with you closely The impression and plan of care has been dictated as directed. Dr. Amirah Sellers I performed a history and examination of this patient, discussed the same with the dictator. I agree with the dictator's note ,documented as a scribe. Any additional findings or plans will be noted.
[2020-03-23] MEDS: SODIUM CHLORIDE 0.9% 1,000 ML IV SCH (15:22)
[2020-03-23 16:24] LABS: Glucose,Whole Blood 45 mg/dL (75-99)
[2020-03-23 16:53] LABS: Glucose,Whole Blood 39 mg/dL (75-99)
[2020-03-23 17:00] LABS: Glucose,Whole Blood 102 mg/dL (75-99)
--- NOTE | 2020-03-23 19:35 | P.PN ---
Progress Note - Text Progress Note Date: 03/23/20 History of presenting complaint: This is a very pleasant 54-year-old patient of Dr. Alexandrea Ang. stable medical conditions include hypertension, , gout, chronic bilateral hip pain, peripheral neuropathy. gastric [place] [address] Zarate. 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 Dumont. At baseline patient is to walk slowly because of peripheral neuropathy. In August 2018 patient had EGD done that showed severe erosive esophagitis with esophageal ulcer. readmitted July 05 underwent balloon dilatation of 10-7 mm done. admitted July 22 and underwent EGD by Dr. Carbajal. Found-severe esophagitis and distal esophageal obstruction. A 10 mm dilatation was carried out. Retained food was extracted. Found to have possible aspiration pneumonia bilateral, treat with IV Zosyn-discharge. Dr. Carbajal discharged on Augmentin on July 26. 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 In December of this year patient admitted with small bowel obstruction and recurrent hypoglycemia and was then transferred to [facility]. Now admitted with-atrial fibrillation rapid ventricular rate. Put on IV heparin and IV Cardizem. 2-D echo showed EF of 50-55 %. Also had acute hypoxemic and hypercapnic respiratory failure secondary pneumonia requiring intubation and ventilation on March 19. Also septic shock. Extubated March 21. Also UTI with urine growing Klebsiella pneumoniae/ESBL. Today-laying in bed. Did eat some food. Telemetry was sinus rhythm. Some cough is present. No sputum. A bit tired. On IV heparin drip. Accu-Cheks running low. When Accu-Cheks was checked from a central line and was found to be 110, peripheral it was 40. It was double checked by the nurse. Review of systems: Was done for constitutional, cardiovascular, GI, pulmonary. relevant finding as above Active Medications Acetaminophen (Acetaminophen Tab 325 Mg Tab) 650 mg PO Q4HR PRN PRN Reason: Fever and/or Mild Pain Albuterol/Ipratropium (Ipratropium-Albuterol 3 Ml Neb) 3 ml INHALATION RT-Q4H [facility] Last Admin: 03/23/20 19:03 Dose: 3 ml Documented by: Albuterol/Ipratropium (Ipratropium-Albuterol 3 Ml Neb) 3 ml INHALATION RT-Q2H PRN PRN Reason: Shortness Of Breath Or Wheezing Bisacodyl (Bisacodyl 5 Mg Tablet.Dr) 10 mg PO [facility] Escitalopram Oxalate (Escitalopram 10 Mg Tab) 10 mg PO DAILY [facility] Last Admin: 03/23/20 08:41 Dose: Not Given Documented by: Furosemide (Furosemide 10 Mg/Ml 4 Ml Vial) 40 mg IV Q12HR [facility] Last Admin: 03/23/20 08:29 Dose: 40 mg Documented by: Heparin Sodium (Porcine) (Heparin Sodium,Porcine 5,000 Unit/Ml 1 Ml Vial) 0 unit IV PER PROTOCOL PRN; Protocol PRN Reason: Low PTT Last Admin: 03/20/20 06:56 Dose: 3,000 unit Documented by: Hydrocortisone (Hydrocortisone 20 Mg Tab) 20 mg PO DAILY [facility] Last Admin: 03/23/20 08:36 Dose: 20 mg Documented by: Hydrocortisone (Hydrocortisone 10 Mg Tab) 10 mg PO [facility] Last Admin: 03/22/20 20:55 Dose: 10 mg Documented by: Heparin Sodium/Sodium Chloride (25,000 unit/ Sodium Chloride) 250 mls @ 9.994 mls/hr IV .Q24H [facility]; Protocol Last Titration: 03/23/20 18:23 Dose: 18.18 units/kg/hr, 19.791 mls/hr Documented by: Sodium Chloride (Saline 0.9%) 1,000 mls @ 40 mls/hr IV .Q24H [facility] Last Admin: 03/23/20 15:22 Dose: Not Given Documented by: Meropenem 1 gm/ Sodium (Chloride) 100 mls @ 33.3 mls/hr IVPB Q8HR [facility]; Protocol Last Admin: 03/23/20 16:50 Dose: 33.3 mls/hr Documented by: Dextrose/Water (Dextrose 5%-Water Iv Soln) 1,000 mls @ 100 mls/hr IV .Q10H ONE Stop: 03/23/20 22:31 Last Admin: 03/23/20 13:25 Dose: 100 mls/hr Documented by: Potassium Chloride 20 meq/ IV (Solution) 100 mls @ 50 mls/hr IVPB Q2H [facility]; Protocol Stop: 03/23/20 21:14 Last Admin: 03/23/20 18:28 Dose: 50 mls/hr Documented by: Insulin Aspart (Insulin Aspart (Novolog) 100 Unit/Ml Vial) 0 unit SQ ACHS [facility]; Protocol Last Admin: 03/23/20 15:55 Dose: Not Given Documented by: Lacosamide (Lacosamide 50 Mg Tablet) 50 mg PO BID [facility] Last Admin: 03/23/20 08:41 Dose: Not Given Documented by: Metoprolol Tartrate (Metoprolol Tartrate 25 Mg Tab) 25 mg PO BID [facility] Last Admin: 03/23/20 08:36 Dose: 25 mg Documented by: Miscellaneous Information (Potassium Replacement Protocol 1 Each Misc) 1 each MISCELLANE DAILY PRN; Protocol PRN Reason: Per Protocol Naloxone HCl (Naloxone 0.4 Mg/Ml 1 Ml Vial) 0.2 mg IV Q2M PRN PRN Reason: Opioid Reversal Naloxone HCl (Naloxone 0.4 Mg/Ml 1 Ml Vial) 0.2 mg IV Q2M PRN PRN Reason: Opioid Reversal Pantoprazole Sodium (Pantoprazole 40 Mg Tablet) 40 mg PO AC-BID [facility] Last Admin: 03/23/20 16:50 Dose: 40 mg Documented by: Pregabalin (Pregabalin 100 Mg Cap) 300 mg PO BID [facility] Last Admin: 03/23/20 08:36 Dose: 300 mg Documented by: Physical examination: VITAL SIGNS: 97, 69, 16, 100 3585, 96% on 3 L GENERAL: Laying in bed, awake EYES: Pupils equal. Conjunctiva normal. HEENT: External appearance of nose and ears normal, oral cavity grossly normal. NECK: JVD not raised; masses not palpable. HEART: First and second heart sounds are normal; no edema. LUNGS: Respiratory rate increased, decreased breath sounds. ABDOMEN: Soft, nontender, liver spleen not palpable, no masses palpable. Left abdominal wall has a pain pump . PSYCH: Alert and oriented x3; mood and affect normal. INVESTIGATIONS, reviewed in the clinical context: White count 13.3 hemoglobin 9.5 platelets and 59 potassium 3.2 creatinine 0.83 Previous testing: Chest l-lon-bdckvnatoed CT angiogram chest-no PE. Extensive consolidation and atelectasis, right lower lobe. 2-D echocardiogram-moderate concentric LVH, EF 50-55% Assessment: -Multilobar pneumonia suspected gram-negative organism, causing septic shock POA-improved -Acute hypoxic and hypercapnic respiratory failure secondary to aspiration pneumonia requiring intubation mechanical ventilation on March 19.-Improved -Troponin anemia from hemodynamic mismatch. No acute: He syndrome. -Acute UTI with cystitis from Klebsiella Pneumoniae/ESBL -recurrent esophageal stricture with recurrent dilatation -Severe esophagitis and distal esophageal ulcer., -History of paraesophageal repair and history of sleeve gastrectomy -Essential hypertension -Primary osteoarthritis -Gout -Idiopathic peripheral neuropathy -Chronic back pain with the pain pump -Anemia of chronic disease -Paroxysmal atrial fibrillation with a rapid ventricular rate initially., Now in sinus rhythm -Hypoglycemia noted by Accu-Cheks peripheral E but from central blood draw no hypoglycemia present.-Keep a close eye. Plan: Patient on IV Lasix. IV heparin. IV meropenem. IV heparin be discontinued today. Patient scheduled for EGD tomorrow. Discussed with the patient.
[2020-03-23 20:44] LABS: Glucose,Whole Blood 95 mg/dL (75-99)
[2020-03-23] MEDS: bisacodyL 5 MG TABLET.DR PO SCH (21:11)
[2020-03-23] MEDS: HYDROCORTISONE 10 MG TAB PO SCH (21:11)
--- NOTE | 2020-03-23 23:22 | PN ---
PROGRESS NOTE DATE OF SERVICE: 03/23/2020 REASON FOR FOLLOWUP: ESBL E coli urinary tract infection and aspiration pneumonia. INTERVAL HISTORY: The patient is currently afebrile. The patient is breathing more comfortably. Patient denies having any chest pain. Did have some cough. No nausea, no vomiting. No abdominal pain or diarrhea. PHYSICAL EXAMINATION: Blood pressure 135/85 with a pulse of 69, temperature 97. He is 96% on 3 L nasal cannula. General description is a middle-aged male lying in bed in no distress. RESPIRATORY SYSTEM: Unlabored breathing, clear to auscultation anteriorly. HEART: S1, S2. Regular rate and rhythm. ABDOMEN: Soft, no tenderness. LABS: Hemoglobin is 9.5, white count 13.3, BUN of 18, creatinine 0.83. Urine with ESBL Klebsiella. Sputum so far negative. DIAGNOSTIC IMPRESSION AND PLAN: Patient with ESBL Klebsiella urinary tract infection with a component of aspiration pneumonia. Patient is covered with meropenem, transition to Invanz on discharge to finish a 2-week course of therapy. Continue with supportive care. MMODL / IJN: [id number] /
[2020-03-24] MEDS: MEROPENEM 1 GM in SODIUM CHLORIDE 0.9% 100 ML IVPB SCH ×3 (00:13→15:44)
[2020-03-24] MEDS: IPRATROPIUM-ALBUTEROL 3 ML NEB INHALATION SCH ×5 (01:16→19:16)
[2020-03-24 04:43] LABS: Anisocytosis Slight; Hypochromasia Marked; MCH 23.6 pg (25.0-35.0); MCHC 28.6 g/dL (31.0-37.0); MCV 82.3 fL (80.0-100.0); Mean Platelet Volume 9.5; Platelet Count 179 k/uL (150-450); Poikilocytosis Slight; RBC 4.25 m/uL (4.30-5.90); RDW 16.6 % (11.5-15.5); WBC 10.1 k/uL (3.8-10.6)
[2020-03-24 04:56] LABS: African American GFR (CKD) >90 (>60 ml/min/1.73 sqM); Anion Gap 2 mmol/L; Blood Urea Nitrogen 15 mg/dL (9-20); Calcium 8.1 mg/dL (8.4-10.2); Carbon Dioxide 34 mmol/L (22-30); Chloride 102 mmol/L (98-107); Glucose 86 mg/dL (74-99); Non-African American GFR(CKD) >90 (>60 ml/min/1.73 sqM); Potassium 3.8 mmol/L (3.5-5.1); Sodium 138 mmol/L (137-145)
[2020-03-24] MEDS ORDERED: POTASSIUM CHLORIDE 20 MEQ in WATER FOR INJECTION 1 100ML.BAG IVPB STA (05:30)
[2020-03-24] MEDS: PANTOPRAZOLE 40 MG TABLET PO SCH ×2 (06:53→18:04)
[2020-03-24 07:03] LABS: Glucose,Whole Blood 91 mg/dL (75-99)
[2020-03-24] MEDS: INSULIN ASPART (NovoLOG) 100 UNIT/ML VIAL SQ SCH ×4 (07:04→20:11)
[2020-03-24 07:13] LABS: Band Neutrophils % 1 %; Eosinophils # (M) 0.91 k/uL (0-0.7); Lymphocytes # (M) 2.32 k/uL (1.0-4.8); Metamyelocytes % 1 %; Neutrophils % (M) 64 %; Nucleated Red Blood Cells 0 /100 WBC (0-0); Total Cells Counted 200
[2020-03-24 07:14] LABS: Large Platelets Present
[2020-03-24] MEDS: FUROSEMIDE 10 MG/ML 4 ML VIAL IV SCH ×2 (08:16→19:57)
[2020-03-24] MEDS: METOPROLOL TARTRATE 25 MG TAB PO SCH ×2 (08:16→19:56)
[2020-03-24] MEDS: HYDROCORTISONE 20 MG TAB PO SCH (08:16)
[2020-03-24] MEDS: PREGABALIN 100 MG CAP PO SCH ×2 (08:16→19:56)
[2020-03-24] MEDS: LACOSAMIDE 50 MG TABLET PO SCH ×2 (08:16→19:56)
--- NOTE | 2020-03-24 08:23 | PN ---
PROGRESS NOTE Mr. Barbosa is a 54-year-old male who presented with respiratory distress and respiratory failure with pneumonia and probable aspiration pneumonia. He was extubated. He is doing well this morning. He has a history of esophageal strictures. On presentation, he had an episode of atrial fibrillation. He is back in sinus mechanism. He had a history of cerebrovascular accident. His activity level is limited because of arthritic pain. He was scheduled to undergo an upper endoscopy yesterday that was canceled because of the fact his heparin was not stopped. He denies any dizziness or palpitation. He is feeling better today and feeling stronger. He continues to be on the furosemide 40 mg IV q.12 hours, Solu-Cortef, metoprolol tartrate 25 mg twice a day, and his antibiotics. PHYSICAL EXAMINATION: Blood pressure 123/90 with a heart rate in the 70s. LUNGS: No wheezes appreciated with mild decreased breath sounds at the bases. HEART: Regular rate and rhythm, S1, S2. No S3. No gallop appreciated. ABDOMEN: Soft, nontender, positive bowel sounds, no organomegaly. EXTREMITIES: +1 edema bilaterally. LAB DATA: Revealed a hemoglobin of 10. BUN and creatinine of 15 and 0.81, calcium 8.1, hemoglobin of 10.1. IMPRESSION: 1. Respiratory failure with aspiration pneumonia improved. 2. Esophageal strictures, undergoing endoscopy today. 3. Paroxysmal atrial fibrillation back in sinus mechanism. 4. History of gastric sleeve. 5. History of cerebrovascular accident. 6. Diabetes mellitus. RECOMMENDATION: We will await the results of the upper endoscopy. If stable and the patient can take anticoagulation, then I will initiate treatment with Eliquis 5 mg twice a day. Continue with his medical regimen. Otherwise, increase his level of activity and hopefully being able to be discharged home soon. MMODL / IJN: [id number] /
[2020-03-24] MEDS: ESCITALOPRAM 10 MG TAB PO SCH (09:36)
[2020-03-24 11:42] LABS: Glucose,Whole Blood 32 mg/dL (75-99)
[2020-03-24 11:42] LABS: Glucose,Whole Blood 84 mg/dL (75-99)
--- NOTE | 2020-03-24 12:11 | PN ---
PROGRESS NOTE PULMONARY/CRITICAL CARE PROGRESS NOTE: DATE OF SERVICE: 03/24/2020 This is a 54-year-old black male with a history of acute hypoxemic and hypercapnic respiratory failure secondary to probable aspiration pneumonia. The patient does have a history of esophageal stricture and is going to undergo an EGD today at 1:15 by one of the gastroenterologists. Currently, the patient is doing well. He is on 2 L by nasal cannula and D5W at 100 mL an hour. The patient was previously intubated and mechanically ventilated. He initially went on the ventilator on March 19 and was successfully extubated on March 21. Currently, the patient is doing much better. His urine did reveal evidence of extended spectrum beta lactamase producing Klebsiella. He is currently on IV Merrem. The patient could be transferred out of the ICU to the general medical floor with telemetry. Currently, he has no complaints. He is feeling much better. The patient does have a history of multiple medical problems including chronic anemia, morbid obesity, previous gastric sleeve procedure December 2019, atrial fibrillation with RVR, CVA, essential hypertension, chronic back pain, esophageal strictures, nonischemic cardiomyopathy, diabetes mellitus, and previous tobacco use. PHYSICAL EXAMINATION: VITAL SIGNS: Current vital signs include temperature 97.9 heart rate 73, respiratory rate 10, blood pressure 126/83, mean 97, room air saturation 93%. Appears in no acute distress. HEENT: Examination is grossly unremarkable. Nasal O2 noted. Mucous membranes are moist. NECK: Supple. Full range of motion. No adenopathy, thyromegaly or neck vein distention. CARDIOVASCULAR: Examination reveals regular rhythm and rate. S1, S2 normal. Heart rate 73. Heart sounds are distant. LUNGS: Reveal coarse rhonchi. Breath sounds equal bilaterally. No wheezes. No crackles. ABDOMEN: Soft. Bowel sounds are heard. EXTREMITIES are intact. There is some edema. SKIN: Without rash. NEUROLOGIC: Examination is nonfocal. LABS: Reviewed. White count 10.1, hemoglobin 10.0, hematocrit 35.0, platelet count 179,000. Sodium, potassium and chloride normal. CO2 34, anion gap is 2. BUN and creatinine were 15 and 0.81. Microbiologic studies show the Klebsiella pneumoniae in the urine from March 19. It is an ESBL Klebsiella. No recent x-ray to report. Medications are reviewed. No major changes there. ASSESSMENT: 1. Acute hypoxemic and hypercapnic respiratory failure secondary to aspiration pneumonia, with intubation and mechanical ventilation on March 19 and successful extubation on March 21. 2. Acute septic shock secondary to pneumonia and/or Klebsiella urinary tract infection, much improved. 3. Recently discovered gram-negative bacilli in the urine, secondary to the ESBL producing Klebsiella pneumoniae. 4. No evidence of pulmonary embolism on CT angiogram. 5. Lactic acidosis, resolved. 6. Chronic anemia. 7. Morbid obesity, status post gastric sleeve, December 2019. 8. Atrial fibrillation with rapid ventricular response, currently controlled. 9. Elevated troponin, likely related to supply/demand mismatch. 10.History of cerebrovascular accident. 11.Essential hypertension by history. 12.History of back surgery for chronic back pain and subsequent pain pump implantation. 13.History of esophageal stricture with multiple dilatations. 14.Nonischemic cardiomyopathy. 15.Diabetes mellitus. 16.Previous history of tobacco use. PLAN: Currently, the patient is scheduled to go down for an EGD at 1:15 today. It will be done by Dr. Sellers. The patient remains on O2 at 2 L and D5W at 100 mL an hour. The patient is on IV Merrem for extended spectrum beta lactamase producing Klebsiella urinary tract infection. The patient could be transferred to the general medical floor with telemetry. We will continue to follow. Prognosis is guarded. Medications are reviewed. MMODL / IJN: [id number] /
[2020-03-24] MEDS ORDERED: MIDAZOLAM 2 MG/2 ML VIAL ONE (14:48)
[2020-03-24] MEDS ORDERED: fentaNYL (PF) 50 MCG/ML 2 ML AMP ONE (14:48)
[2020-03-24] MEDS ORDERED: LIDOCAINE 1% INJ 10MG/ML (20 ML MDV) ONE (14:48)
[2020-03-24] MEDS ORDERED: PROPOFOL 10 MG/ML 20 ML VIAL IV ONE (14:48)
[2020-03-24] MEDS ORDERED: IV FLUID CONTINUATION 1,000 ML IV ONE (14:53)
--- NOTE | 2020-03-24 15:07 | P.PCN ---
Date of Procedure: 03/24/20 Procedure(s) Performed: BRIEF HISTORY: Patient is a 54-year-old, pleasant, -[place] male scheduled for an upper endoscopy as a part of evaluation of dysphagia for the last several weeks duration. Has history of esophageal stricture that was dilated about 3 months ago.. PROCEDURE PERFORMED: Esophagogastroduodenoscopy With dilation. PREOPERATIVE DIAGNOSIS: Progressive dysphagia. IV sedation per anesthesia. PROCEDURE: After informed consent was obtained, the patient was brought into the endoscopy unit. IV sedation was administered by Anesthesia under continuous monitoring. Initially the Olympus GIF-140 video endoscope was inserted into the mouth. Esophagus intubated without any difficulty. It was gradually advanced into the stomach and duodenum and carefully examined. The bulb and the second part of the duodenum appeared normal. The scope at this time was withdrawn to the stomach, adequately insufflated with air, and upon careful examination, mucosa of the antrum, appeared normal. There was evidence of gastric stapling surgery noted. The body the stomach appeared normal.. The scope was then withdrawn into the esophagus. The GE junction was located at 43 cm from the incisors. The esophagus was very dilated and tortuous with thickened folds in the distal esophagus and a tight lower esophageal sphincter suspicious for esophageal achalasia. In the dilation was performed using 10-12 mm balloon in the lower esophagus into the proximal esophagus was also dilated. The patient tolerated the procedure well. IMPRESSION: 1.Dilated tortuous esophagus with high titers of the lower esophageal sphincter suspicious for esophageal achalasia status post empiric balloon dilation 10-12 mm balloon as described . 2.[] evidence of gastric he. RECOMMENDATIONS: The findings of this examination were discussed with the patient as well as his family. He will be started on soft diet. Initially scheduled for esophageal manometry to evaluate further. IV heparin can be started now.
[2020-03-24] MEDS: HEPARIN SOD,PORK IN 0.45% NACL 25,000 UNIT in 0.45% NACL 1 250ML.BAG IV SCH (15:25)
[2020-03-24 16:19] LABS: Glucose,Whole Blood 107 mg/dL (75-99)
--- NOTE | 2020-03-24 16:47 | P.PN ---
Progress Note - Text Progress Note Date: 03/24/20 History of presenting complaint: This is a very pleasant 54-year-old patient of Dr. Alexandrea Ang. stable medical conditions include hypertension, , gout, chronic bilateral hip pain, peripheral neuropathy. gastric sleeve [place] [address] Zarate. 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 Dumont. At baseline patient is to walk slowly because of peripheral neuropathy. In August 2018 patient had EGD done that showed severe erosive esophagitis with esophageal ulcer. readmitted July 05 underwent balloon dilatation of 10-7 mm done. admitted July 22 and underwent EGD by Dr. Carbajal. Found-severe esophagitis and distal esophageal obstruction. A 10 mm dilatation was carried out. Retained food was extracted. Found to have possible aspiration pneumonia bilateral, treat with IV Zosyn-discharge. Dr. Carbajal discharged on Augmentin on July 26. 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 In December of this year patient admitted with small bowel obstruction and recurrent hypoglycemia and was then transferred to [facility]. Now admitted with-atrial fibrillation rapid ventricular rate. Put on IV heparin and IV Cardizem. 2-D echo showed EF of 50-55 %. Also had acute hypoxemic and hypercapnic respiratory failure secondary pneumonia requiring intubation and ventilation on March 19. Also septic shock. Extubated March 21. Also UTI with urine growing Klebsiella pneumoniae/ESBL. Patient has a discrepancy between his Accu-Chek taken peripherally and from the central line. Being 110 from the central line and 40 peripherally. Today-sitting up in bed. Comfortable. Breathing is stable. Awaiting endoscopy later today. Review of systems: Was done for constitutional, cardiovascular, GI, pulmonary. relevant finding as above Active Medications Acetaminophen (Acetaminophen Tab 325 Mg Tab) 650 mg PO Q4HR PRN PRN Reason: Fever and/or Mild Pain Albuterol/Ipratropium (Ipratropium-Albuterol 3 Ml Neb) 3 ml INHALATION RT-Q2H PRN PRN Reason: Shortness Of Breath Or Wheezing Albuterol/Ipratropium (Ipratropium-Albuterol 3 Ml Neb) 3 ml INHALATION RT-QID MATT Last Admin: 03/24/20 15:23 Dose: 3 ml Documented by: Bisacodyl (Bisacodyl 5 Mg Tablet.Dr) 10 mg PO HS [facility] Last Admin: 03/23/20 21:11 Dose: 10 mg Documented by: Escitalopram Oxalate (Escitalopram 10 Mg Tab) 10 mg PO DAILY [facility] Last Admin: 03/24/20 09:36 Dose: 10 mg Documented by: Furosemide (Furosemide 10 Mg/Ml 4 Ml Vial) 40 mg IV Q12HR [facility] Last Admin: 03/24/20 08:16 Dose: 40 mg Documented by: Heparin Sodium (Porcine) (Heparin Sodium,Porcine 5,000 Unit/Ml 1 Ml Vial) 0 unit IV PER PROTOCOL PRN; Protocol PRN Reason: Low PTT Last Admin: 03/20/20 06:56 Dose: 3,000 unit Documented by: Hydrocortisone (Hydrocortisone 20 Mg Tab) 20 mg PO DAILY [facility] Last Admin: 03/24/20 08:16 Dose: 20 mg Documented by: Hydrocortisone (Hydrocortisone 10 Mg Tab) 10 mg PO [facility] Last Admin: 03/23/20 21:11 Dose: 10 mg Documented by: Heparin Sodium/Sodium Chloride (25,000 unit/ Sodium Chloride) 250 mls @ 9.994 mls/hr IV .Q24H [facility]; Protocol Last Admin: 03/24/20 15:25 Dose: 18.18 units/kg/hr, 19.791 mls/hr Documented by: Meropenem 1 gm/ Sodium (Chloride) 100 mls @ 33.3 mls/hr IVPB Q8HR [facility]; Protocol Last Admin: 03/24/20 15:44 Dose: 33.3 mls/hr Documented by: Insulin Aspart (Insulin Aspart (Novolog) 100 Unit/Ml Vial) [address] [facility]; Protocol Last Admin: 03/24/20 12:40 Dose: Not Given Documented by: Lacosamide (Lacosamide 50 Mg Tablet) 50 mg PO BID [facility] Last Admin: 03/24/20 08:16 Dose: 50 mg Documented by: Metoprolol Tartrate (Metoprolol Tartrate 25 Mg Tab) 25 mg PO BID [facility] Last Admin: 03/24/20 08:16 Dose: 25 mg Documented by: Miscellaneous Information (Potassium Replacement Protocol 1 Each Misc) 1 each MISCELLANE DAILY PRN; Protocol PRN Reason: Per Protocol Naloxone HCl (Naloxone 0.4 Mg/Ml 1 Ml Vial) 0.2 mg IV Q2M PRN PRN Reason: Opioid Reversal Naloxone HCl (Naloxone 0.4 Mg/Ml 1 Ml Vial) 0.2 mg IV Q2M PRN PRN Reason: Opioid Reversal Pantoprazole Sodium (Pantoprazole 40 Mg Tablet) 40 mg PO AC-BID [facility] Last Admin: 03/24/20 06:53 Dose: Not Given Documented by: Pregabalin (Pregabalin 100 Mg Cap) 300 mg PO BID [facility] Last Admin: 03/24/20 08:16 Dose: 300 mg Documented by: Physical examination: VITAL SIGNS: 97.9, 72, 12, 111/81, 93% room air GENERAL: Propped up in bed awake EYES: Pupils equal. Conjunctiva normal. HEENT: External appearance of nose and ears normal, oral cavity grossly normal. NECK: JVD not raised; masses not palpable. HEART: First and second heart sounds are normal; no edema. LUNGS: Respiratory rate increased, decreased breath sounds. ABDOMEN: Soft, nontender, liver spleen not palpable, no masses palpable. Left abdominal wall has a pain pump . PSYCH: Alert and oriented x3; mood and affect normal. INVESTIGATIONS, reviewed in the clinical context: White count 10.1 hemoglobin 10 potassium 3.8 creatinine 0.81 Previous testing: Chest [id number] CT angiogram chest-no PE. Extensive consolidation and atelectasis, right lower lobe. 2-D echocardiogram-moderate concentric LVH, EF 50-55% Assessment: -Multilobar pneumonia suspected gram-negative organism, causing septic shock POA-improved -Acute hypoxic and hypercapnic respiratory failure secondary to aspiration pneumonia requiring intubation mechanical ventilation on March 19.-Improved -Troponin leak from hemodynamic mismatch. No acute coronary syndrome. -Acute UTI with cystitis from Klebsiella Pneumoniae/ESBL -recurrent esophageal stricture with recurrent dilatation -Severe esophagitis and distal esophageal ulcer., -History of paraesophageal repair and history of sleeve gastrectomy -Essential hypertension -Primary osteoarthritis -Gout -Idiopathic peripheral neuropathy -Chronic back pain with the pain pump -Anemia of chronic disease -Paroxysmal atrial fibrillation with a rapid ventricular rate initially., Now in sinus rhythm -Hypoglycemia noted by Accu-Cheks peripheral E but from central blood draw no hypoglycemia present.-Keep a close eye. Plan: Patient on IV Lasix. IV meropenem.. Later today underwent EGD found to have dilated tortuous esophagus with increased lower esophageal sphincter tone suspicious for esophageal a Klebsiella. Balloon dilatation done with 10-12 mm balloon. Diet to be advanced per GI. We'll resume eliquis.
[2020-03-24] MEDS: ACETAMINOPHEN TAB 325 MG TAB PO PRN (18:17)
--- NOTE | 2020-03-24 18:47 | PN ---
PROGRESS NOTE DATE OF SERVICE: 03/24/2020 REASON FOR FOLLOWUP: ESBL Klebsiella urinary tract infection and aspiration pneumonia. INTERVAL HISTORY: Patient is currently afebrile. The patient is breathing comfortably. Denies having any chest pain or shortness of breath. Minimal cough. No abdominal pain or diarrhea. PHYSICAL EXAMINATION: Blood pressure 111/81 with a pulse of 78. Temperature 97.9. He is 93% on room air. General description: The patient is a middle-aged male lying in bed in no distress. Respiratory system: Unlabored breathing, clear to auscultation anteriorly. Heart S1, S2. Regular rate and rhythm. Abdomen soft, no tenderness. LABS: Hemoglobin is 10 with white count 10.1, BUN of 15, creatinine 0.81. DIAGNOSTIC IMPRESSION AND PLAN: Patient with ESBL Klebsiella urinary tract infection, also has a component of aspiration pneumonia. Patient is currently covered with meropenem, transition to Invanz on discharge to finish a course of therapy. Continue supportive care. MMODL / IJN: [id number] /
[2020-03-24] MEDS: bisacodyL 5 MG TABLET.DR PO SCH (19:56)
[2020-03-24] MEDS: APIXABAN 5 MG TAB PO SCH (19:56)
[2020-03-24] MEDS: HYDROCORTISONE 10 MG TAB PO SCH (19:59)
[2020-03-24 20:12] LABS: Glucose,Whole Blood 81 mg/dL (75-99)
[2020-03-24] MEDS ORDERED: bisacodyL 5 MG TABLET.DR PO SCH (21:00)
[2020-03-25] MEDS: MEROPENEM 1 GM in SODIUM CHLORIDE 0.9% 100 ML IVPB SCH ×4 (00:05→23:23)
[2020-03-25] MEDS: SODIUM CHLORIDE 0.9% 500 ML 500 ML IV SCH ×2 (03:59→17:44)
[2020-03-25 04:07] LABS: Anisocytosis Slight; HCT 32.5 % (39.0-53.0); HGB 9.4 gm/dL (13.0-17.5); Hypochromasia Marked; MCH 23.2 pg (25.0-35.0); MCV 79.9 fL (80.0-100.0); Mean Platelet Volume 10.1; Microcytosis Slight; Platelet Count 149 k/uL (150-450); RBC 4.07 m/uL (4.30-5.90); RDW 17.4 % (11.5-15.5); WBC 8.3 k/uL (3.8-10.6)
[2020-03-25 04:27] LABS: African American GFR (CKD) >90 (>60 ml/min/1.73 sqM); Anion Gap 2 mmol/L; Blood Urea Nitrogen 14 mg/dL (9-20); Calcium 7.9 mg/dL (8.4-10.2); Chloride 95 mmol/L (98-107); Glucose 91 mg/dL (74-99); Non-African American GFR(CKD) >90 (>60 ml/min/1.73 sqM); Potassium 3.2 mmol/L (3.5-5.1); Sodium 137 mmol/L (137-145)
[2020-03-25 04:34] LABS: Carbon Dioxide 40 mmol/L (22-30); Eosinophils # (M) 0.33 k/uL (0-0.7); Lymphocytes # (M) 1.66 k/uL (1.0-4.8); Monocytes # (M) 1.08 k/uL (0-1.0); Neutrophils # (M) 5.23 k/uL (1.3-7.7); Neutrophils % (M) 63 %; Nucleated Red Blood Cells 0 /100 WBC (0-0); Total Cells Counted 100
[2020-03-25 04:35] LABS: Anisocytosis (M) Present
[2020-03-25] MEDS: POTASSIUM CHLORIDE 20 MEQ in WATER FOR INJECTION 1 100ML.BAG IVPB SCH ×3 (05:13→09:18)
[2020-03-25] MEDS: INSULIN ASPART (NovoLOG) 100 UNIT/ML VIAL SQ SCH ×4 (05:57→22:04)
[2020-03-25] MEDS: PANTOPRAZOLE 40 MG TABLET PO SCH ×2 (06:08→17:48)
[2020-03-25 06:12] LABS: Glucose,Whole Blood 70 mg/dL (75-99)
[2020-03-25 06:32] LABS: Glucose,Whole Blood 56 mg/dL (75-99)
[2020-03-25 06:49] LABS: Glucose,Whole Blood 25 mg/dL (75-99)
[2020-03-25 06:49] LABS: Glucose,Whole Blood 94 mg/dL (75-99)
[2020-03-25 06:49] LABS: Glucose,Whole Blood 20 mg/dL (75-99)
[2020-03-25 07:14] LABS: Glucose,Whole Blood 66 mg/dL (75-99)
[2020-03-25 07:14] LABS: Glucose,Whole Blood 55 mg/dL (75-99)
[2020-03-25 07:34] LABS: Glucose,Whole Blood 107 mg/dL (75-99)
[2020-03-25] MEDS: PREGABALIN 100 MG CAP PO SCH ×2 (08:12→21:54)
[2020-03-25] MEDS: METOPROLOL TARTRATE 25 MG TAB PO SCH ×2 (08:12→21:55)
[2020-03-25] MEDS: FUROSEMIDE 10 MG/ML 4 ML VIAL IV SCH (08:12)
[2020-03-25] MEDS: ESCITALOPRAM 10 MG TAB PO SCH (08:13)
[2020-03-25] MEDS: HYDROCORTISONE 20 MG TAB PO SCH (08:13)
[2020-03-25] MEDS: APIXABAN 5 MG TAB PO SCH ×2 (08:13→21:54)
[2020-03-25] MEDS: IPRATROPIUM-ALBUTEROL 3 ML NEB INHALATION SCH (08:30)
[2020-03-25] MEDS: FUROSEMIDE 40 MG TAB PO SCH (09:18)
[2020-03-25] MEDS: LACOSAMIDE 50 MG TABLET PO SCH ×2 (09:18→21:55)
--- NOTE | 2020-03-25 10:53 | PN ---
PROGRESS NOTE DATE OF DICTATION: March 25, 2020 Patient is a 54-year-old pleasant white male admitted to the hospital with acute respiratory failure. He has been extubated for 3 days. He is doing better. He underwent an upper endoscopy as a part of evaluation of dysphagia yesterday. Upper endoscopy revealed severely dilated tortuous esophagus involving the proximal and mid esophagus with tightness of the lower esophageal sphincter, all suspicious for esophageal achalasia. He underwent empiric dilation yesterday. The patient this morning is feeling better. He is able to handle soft diet well. He states that he has been having this dysphagia going on for the last 2 years duration. PHYSICAL EXAMINATION: He appears comfortable. No apparent distress. Vital signs stable. Blood pressure 102/64, pulse 81, temperature 98.6. HEENT examination unremarkable. Conjunctivae pink. Sclerae anicteric. Oral cavity no lesions. Neck no JVD or lymph node enlargement. CHEST was clear to auscultation. HEART: Regular rate and rhythm. ABDOMEN: Soft. Bowel sounds are positive. No organomegaly. EXTREMITIES: No pedal edema. Neuro: He is alert and oriented x3. No focal deficits. LABS: WBC 8.3, hemoglobin 9.4, platelets 149. Basic metabolic panel is within normal limits. IMPRESSION: 1. Severe dysphagia secondary to esophageal motility disorder, possible esophageal achalasia. He underwent an upper endoscopy yesterday that showed a dilated tortuous esophagus with tightness of the lower esophageal sphincter suspicious for esophageal achalasia, empiric dilation was performed yesterday. He is on a soft diet today, tolerating well. 2. Multilobar pneumonia with gram-negative organisms. Presently on broad-spectrum antibiotics. 3. Atrial fibrillation with RVR, on IV heparin. 4. Acute urinary tract infection. 5. History of gastric sleeve surgery. RECOMMENDATIONS: 1. Continue with broad-spectrum antibiotics. 2. Continue with soft diet for now. 3. We will schedule the patient for esophageal manometry when his overall condition improves. 4. Continue with anticoagulation for now. 5. We will follow with you closely. Thank you for this consultation. MMODL / IJN: [id number] /
--- NOTE | 2020-03-25 11:34 | PN ---
PROGRESS NOTE PULMONARY/CRITICAL CARE PROGRESS NOTE: DATE OF SERVICE: 03/25/2020 This is a 54-year-old black male with a history of acute hypoxemic respiratory failure. The patient had aspiration pneumonia. He does have a history of esophageal strictures and had an EGD done yesterday. He did require a dilatation. The patient was previously intubated and mechanically ventilated for acute hypoxemic respiratory failure. He was intubated on March 19 and extubated on March 21. Currently, the patient's cultures were positive for Klebsiella pneumoniae, extended spectrum beta lactamase producing Klebsiella, in the urine. Currently, he is on meropenem. The patient could be transferred to the general medical floor. He is not receiving any supplemental oxygen. He is not receiving any IV fluids. The patient's IV Lasix will be converted to oral Lasix daily. Other than that, the patient is doing reasonably well. He has been having some issues with hypoglycemia. He is taking food and liquid by mouth. PHYSICAL EXAMINATION: VITAL SIGNS: Current vital signs are reviewed. Temperature 96, heart rate 81, respiratory rate 11, blood pressure 102/64, mean 76, room air saturation 95%. Appears in no acute distress. HEENT: Examination is grossly unremarkable. NECK: Supple. Full range of motion. No adenopathy. Neck veins are flat. CARDIOVASCULAR: Examination reveals regular rhythm rate. Heart rate 81. S1, S2 normal. No S3, S4, or murmur. LUNGS: A few scattered rhonchi. No wheezes or crackles. Breath sounds equal. ABDOMEN: Soft. Bowel sounds are heard. EXTREMITIES are intact. Mild edema. SKIN: Without rash. NEUROLOGIC: Examination is brief but nonfocal. LABS: Reviewed. Currently, white count 8.3, hemoglobin 9.4, hematocrit 32.5, platelet count 149,000, sodium 137, potassium 3.2, chloride 95, CO2 40, anion gap is 2. BUN and creatinine were 14 and 0.78. Microbiology is positive for urine sampling on the which showed extended spectrum beta lactamase producing Klebsiella pneumoniae. No recent chest x-ray. MEDICATIONS: Reviewed. Currently, he is on Tylenol, Eliquis, Dulcolax, Lexapro, Lasix, hydrocortisone, insulin, Vimpat, meropenem, metoprolol, Narcan, Protonix, adenosine replacement, and Lyrica. ASSESSMENT: 1. Acute hypoxemic hypercapnic respiratory failure secondary to aspiration pneumonia, with intubation and mechanical ventilation on March 19 and successful extubation on March 21. 2. Acute septic shock secondary to pneumonia and/or Klebsiella urinary tract infection, much improved. 3. Recently discovered gram-negative bacilli in the urine, secondary to ESBL producing Klebsiella pneumoniae. 4. History of chronic adrenal insufficiency, currently on replacement therapy. 5. No evidence of pulmonary embolism on CT angiogram. 6. Lactic acidosis, resolved. 7. Chronic anemia. 8. Morbid obesity, status post gastric sleeve, December 2019. 9. Atrial fibrillation with rapid ventricular response, currently controlled. 10.Elevated troponin, likely related to supply/demand mismatch. 11.History of cerebrovascular accident. 12.History of essential hypertension. 13.History of back surgery for chronic back pain and subsequent pain pump implantation. 14.History of esophageal stricture with multiple dilatations, most recent one occurring on March 24. 15.Nonischemic cardiomyopathy. 16.Diabetes mellitus. 17.Previous history of tobacco use. PLAN: The patient is currently not receiving any supplemental oxygen or IV fluids. He remains on IV meropenem for his Klebsiella in the urine. The patient did have an EGD on March 24. The esophagus was dilated. The patient's Lasix is converted from Lasix 40 IV push twice a day to Lasix 40 mg p.o. daily. The patient could be discharged out to the general medical floor without telemetry. Additional recommendations and suggestions are forthcoming. Prognosis is guarded. MMODL / IJN: [id number] /
[2020-03-25 11:48] LABS: Glucose,Whole Blood 109 mg/dL (75-99)
--- NOTE | 2020-03-25 12:14 | PN ---
PROGRESS NOTE Mr. Barbosa is a 54-year-old male who presented with respiratory failure, was found to have atrial fibrillation, has a history of esophageal stenosis, underwent esophageal dilatation yesterday. He had aspiration pneumonia on presentation. He is feeling better this morning. He continued to be in sinus mechanism. He has no dizziness. No palpitation. He is feeling stronger. He denies any nausea or vomiting. He had evidence of dilated tortuous esophagus on his upper endoscopy yesterday. He continues to be on Eliquis 5 mg twice a day, Lasix 40 mg daily, Solu-Cortef, metoprolol tartrate 25 mg twice a day. PHYSICAL EXAMINATION: Blood pressure 102/60 with a heart rate in the 80s. Lungs: Mild crackles. No wheezes. HEART: Regular rate and rhythm S1, S2. No S3 with a systolic murmur. No diastolic murmur. ABDOMEN: Soft, nontender. Positive bowel sounds. EXTREMITIES: +1 edema bilaterally. LAB DATA: Revealed a hemoglobin 9.4, BUN and creatinine 14 and 0.78, potassium 3.2. IMPRESSION: 1. Paroxysmal atrial fibrillation, maintaining sinus mechanism. 2. History of esophageal strictures status post dilatation. 3. Upper respiratory failure with aspiration pneumonia, improving. 4. History of gastric sleeve. 5. History of cerebrovascular accident. 6. Diabetes mellitus. RECOMMENDATIONS: From the cardiac standpoint, he is stable. We will continue to increase his activity. I would expect he should be able to be transferred outside the ICU. Follow his renal function closely and hopefully he will be able to be discharged home soon. MMODL / IJN: [id number] /
[2020-03-25 14:27] VITALS: BMI 34.0
--- NOTE | 2020-03-25 15:33 | P.PN ---
Progress Note - Text Progress Note Date: 03/25/20 History of presenting complaint: This is a very pleasant 54-year-old patient of Dr. Alexandrea Ang. stable medical conditions include hypertension, , gout, chronic bilateral hip pain, peripheral neuropathy. gastric sleeve [place] [address] Zarate. 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 Dumont. At baseline patient is to walk slowly because of peripheral neuropathy. In August 2018 patient had EGD done that showed severe erosive esophagitis with esophageal ulcer. readmitted July 05 underwent balloon dilatation of 10-7 mm done. admitted July 22 and underwent EGD by Dr. Carbajal. Found-severe esophagitis and distal esophageal obstruction. A 10 mm dilatation was carried out. Retained food was extracted. Found to have possible aspiration pneumonia bilateral, treat with IV Zosyn-discharge. Dr. Carbajal discharged on Augmentin on July 26. 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 In December of this year patient admitted with small bowel obstruction and recurrent hypoglycemia and was then transferred to [facility]. Now admitted with-atrial fibrillation rapid ventricular rate. Put on IV heparin and IV Cardizem. 2-D echo showed EF of 50-55 %. Also had acute hypoxemic and hypercapnic respiratory failure secondary pneumonia requiring intubation and ventilation on March 19. Also septic shock. Extubated March 21. Also UTI with urine growing Klebsiella pneumoniae/ESBL. Patient has a discrepancy between his Accu-Chek taken peripherally and from the central line. Being 110 from the central line and 40 peripherally.EGD - dilated tortuous esophagus with increased lower esophageal sphincter tone suspicious for esophageal a Klebsiella. Balloon dilatation done with 10-12 mm balloon Today-feeling better. Did tolerate some diet. Breathing stable. Sitting up in bed. Review of systems: Was done for constitutional, cardiovascular, GI, pulmonary. relevant finding as above Active Medications Acetaminophen (Acetaminophen Tab 325 Mg Tab) 650 mg PO Q4HR PRN PRN Reason: Fever and/or Mild Pain Last Admin: 03/24/20 18:17 Dose: 650 mg Documented by: Apixaban (Apixaban 5 Mg Tab) 5 mg PO BID [facility] Last Admin: 03/25/20 08:13 Dose: 5 mg Documented by: Bisacodyl (Bisacodyl 5 Mg Tablet.Dr) 10 mg PO HS [facility] Last Admin: 03/24/20 19:56 Dose: 10 mg Documented by: Escitalopram Oxalate (Escitalopram 10 Mg Tab) 10 mg PO DAILY [facility] Last Admin: 03/25/20 08:13 Dose: 10 mg Documented by: Furosemide (Furosemide 40 Mg Tab) 40 mg PO DAILY [facility] Last Admin: 03/25/20 09:18 Dose: 40 mg Documented by: Hydrocortisone (Hydrocortisone 20 Mg Tab) 20 mg PO DAILY [facility] Last Admin: 03/25/20 08:13 Dose: 20 mg Documented by: Hydrocortisone (Hydrocortisone 10 Mg Tab) 10 mg PO HS [facility] Last Admin: 03/24/20 19:59 Dose: 10 mg Documented by: Meropenem 1 gm/ Sodium (Chloride) 100 mls @ 33.3 mls/hr IVPB Q8HR [facility]; Protocol Last Admin: 03/25/20 08:12 Dose: 33.3 mls/hr Documented by: Sodium Chloride (Saline 0.9%) 500 mls @ 20 mls/hr IV .Q24H [facility] Last Admin: 03/25/20 03:59 Dose: Not Given Documented by: Insulin Aspart (Insulin Aspart (Novolog) 100 Unit/Ml Vial) 0 unit SQ ACHS [facility]; Protocol Last Admin: 03/25/20 14:12 Dose: Not Given Documented by: Lacosamide (Lacosamide 50 Mg Tablet) 50 mg PO BID [facility] Last Admin: 03/25/20 09:18 Dose: 50 mg Documented by: Metoprolol Tartrate (Metoprolol Tartrate 25 Mg Tab) 25 mg PO BID [facility] Last Admin: 03/25/20 08:12 Dose: 25 mg Documented by: Miscellaneous Information (Potassium Replacement Protocol 1 Each Misc) 1 each MISCELLANE DAILY PRN; Protocol PRN Reason: Per Protocol Naloxone HCl (Naloxone 0.4 Mg/Ml 1 Ml Vial) 0.2 mg IV Q2M PRN PRN Reason: Opioid Reversal Naloxone HCl (Naloxone 0.4 Mg/Ml 1 Ml Vial) 0.2 mg IV Q2M PRN PRN Reason: Opioid Reversal Pantoprazole Sodium (Pantoprazole 40 Mg Tablet) 40 mg PO AC-BID [facility] Last Admin: 03/25/20 06:08 Dose: 40 mg Documented by: Pregabalin (Pregabalin 100 Mg Cap) 300 mg PO BID [facility] Last Admin: 03/25/20 08:12 Dose: 300 mg Documented by: Physical examination: VITAL SIGNS: 98, 86, 13, 101/66, 96% on room air GENERAL: Propped up in bed awake EYES: Pupils equal. Conjunctiva normal. HEENT: External appearance of nose and ears normal, oral cavity grossly normal. NECK: JVD not raised; masses not palpable. HEART: First and second heart sounds are normal; no edema. LUNGS: Respiratory rate increased, decreased breath sounds. ABDOMEN: Soft, nontender, liver spleen not palpable, no masses palpable. Left abdominal wall has a pain pump . PSYCH: Alert and oriented x3; mood and affect normal. INVESTIGATIONS, reviewed in the clinical context: White count 8.3 hemoglobin 9.4 platelets 149 potassium 3.2 creatinine 0.78 Previous testing: Chest [id number] CT angiogram chest-no PE. Extensive consolidation and atelectasis, right lower lobe. 2-D echocardiogram-moderate concentric LVH, EF 50-55% Assessment: -Multilobar pneumonia suspected gram-negative organism, causing septic shock POA-improved -Acute hypoxic and hypercapnic respiratory failure secondary to aspiration pneumonia requiring intubation mechanical ventilation on March 19.-Improved -Troponin leak from hemodynamic mismatch. No acute coronary syndrome. -Acute UTI with cystitis from Klebsiella Pneumoniae/ESBL -recurrent esophageal stricture with recurrent dilatation - EGD found to have dilated tortuous esophagus with increased lower esophageal sphincter tone suspicious for esophageal a Klebsiella. Balloon dilatation done with 10-12 mm balloon -History of paraesophageal repair and history of sleeve gastrectomy -Essential hypertension -Primary osteoarthritis -Gout -Idiopathic peripheral neuropathy -Chronic back pain with the pain pump -Anemia of chronic disease -Paroxysmal atrial fibrillation with a rapid ventricular rate initially., Now in sinus rhythm -Hypoglycemia noted by Accu-Cheks peripheral check from central blood draw no hypoglycemia present.-Keep a close eye. Plan: -Changed to by mouth Lasix. IV meropenem.. Advanced to regular diet. Off IV heparin.
[2020-03-25 17:39] LABS: Glucose,Whole Blood 118 mg/dL (75-99)
[2020-03-25] MEDS: bisacodyL 5 MG TABLET.DR PO SCH (21:55)
[2020-03-25 21:56] LABS: Glucose,Whole Blood 101 mg/dL (75-99)
[2020-03-25] MEDS: HYDROCORTISONE 10 MG TAB PO SCH (23:22)
--- NOTE | 2020-03-25 23:22 | PN ---
PROGRESS NOTE DATE OF SERVICE: 03/25/2020. REASON FOR FOLLOWUP: ESBL Klebsiella urinary tract infection and aspiration pneumonia. INTERVAL HISTORY: Patient is currently afebrile. The patient is breathing comfortably. The patient denies having any chest pain. He did have a cough, not bringing up any sputum. No nausea, no vomiting. No abdominal pain or diarrhea. PHYSICAL EXAMINATION: Blood pressure 133/63 with a pulse of 66, temperature 98. He is 92% on room air. General description: The patient is a middle-aged male lying in bed in no distress. Respiratory system: Unlabored breathing, decreased breath sounds in the bases. No wheeze. Heart S1, S2. Regular rate and rhythm. Abdomen soft, no tenderness. LABS: Hemoglobin 9.4, white count 8.3, BUN of 14, creatinine 0.78. Sputum has been usual respiratory k[place]. Urine with Klebsiella. DIAGNOSTIC IMPRESSION AND PLAN: Patient with ESBL Klebsiella urinary tract infection and component of aspiration pneumonia. The patient is currently covered with meropenem. We will repeat his UA and culture and chest x-ray. If repeat UA is negative and chest x-ray did show improvement with sputum being negative for any resistant pathogen, may be able to transition to oral antibiotic on discharge. We will get a PICC line. Continue supportive care. MMODL / IJN: [id number] /
[2020-03-26] MEDS: ACETAMINOPHEN TAB 325 MG TAB PO PRN ×3 (00:52→19:53)
[2020-03-26] MEDS: oxyCODONE-APAP 7.5-325MG 1 EACH TAB PO PRN (02:55)
[2020-03-26 04:49] LABS: Appearance,Urine Clear (Clear); Bilirubin,Urine Negative (Negative); Blood,Urine Negative (Negative); Color,Urine Light Yellow; Glucose,Urine (UA) Negative (Negative); Ketones,Urine Negative (Negative); Leukocyte Esterase,Urine Negative (Negative); Nitrite,Urine Negative (Negative); PH, Urine 6.5 (5.0-8.0); Protein,Urine Negative (Negative); Specific Gravity,Urine 1.002 (1.001-1.035); Urobilinogen,Urine <2.0 mg/dL (<2.0)
[2020-03-26 07:04] LABS: Glucose,Whole Blood 85 mg/dL (75-99)
[2020-03-26 07:12] LABS: Anisocytosis Slight; Basophils % (A) 0 %; Eosinophils # (A) 0.4 k/uL (0-0.7); Eosinophils % (A) 4 %; HCT 30.2 % (39.0-53.0); HGB 8.8 gm/dL (13.0-17.5); Hypochromasia Marked; Lymphocytes # (A) 1.9 k/uL (1.0-4.8); Lymphocytes % (A) 17 %; MCH 23.6 pg (25.0-35.0); MCHC 29.3 g/dL (31.0-37.0); MCV 80.6 fL (80.0-100.0); Mean Platelet Volume 7.9; Microcytosis Slight; Monocytes # (A) 0.7 k/uL (0-1.0); Monocytes % (A) 6 %; Neutrophils # (A) 7.5 k/uL (1.3-7.7); Neutrophils % (A) 69 %; Platelet Count 115 k/uL (150-450); Poikilocytosis Slight; RBC 3.74 m/uL (4.30-5.90); RDW 17.4 % (11.5-15.5); WBC 10.8 k/uL (3.8-10.6)
[2020-03-26] MEDS: INSULIN ASPART (NovoLOG) 100 UNIT/ML VIAL SQ SCH ×4 (07:20→23:45)
[2020-03-26] MEDS: allopurinoL 300 MG TAB PO SCH (08:04)
[2020-03-26] MEDS: CYCLOBENZAPRINE 10 MG TAB PO SCH (08:05)
[2020-03-26] MEDS: DOCUSATE 100 MG CAP PO SCH (08:05)
[2020-03-26] MEDS: PREGABALIN 100 MG CAP PO SCH ×2 (08:41→19:55)
[2020-03-26] MEDS: PANTOPRAZOLE 40 MG TABLET PO SCH ×2 (08:41→16:28)
[2020-03-26] MEDS: APIXABAN 5 MG TAB PO SCH ×2 (08:41→19:56)
[2020-03-26] MEDS: FUROSEMIDE 40 MG TAB PO SCH (08:41)
[2020-03-26] MEDS: HYDROCORTISONE 20 MG TAB PO SCH (08:41)
[2020-03-26] MEDS: METOPROLOL TARTRATE 25 MG TAB PO SCH ×2 (08:41→19:55)
[2020-03-26] MEDS: LACOSAMIDE 50 MG TABLET PO SCH ×2 (08:41→19:56)
[2020-03-26] MEDS: ESCITALOPRAM 10 MG TAB PO SCH (08:41)
[2020-03-26] MEDS: MEROPENEM 1 GM in SODIUM CHLORIDE 0.9% 100 ML IVPB SCH ×2 (09:11→16:28)
--- NOTE | 2020-03-26 09:59 | XR ---
EXAMINATION TYPE: XR chest 2V DATE OF EXAM: 03/26/2020 COMPARISON: 03/23/2020 INDICATION: Pneumonia TECHNIQUE: Frontal and lateral views of the chest are obtained. FINDINGS: The heart size is normal. The pulmonary vasculature is normal. Mild infiltrate is at the right diaphragm. IMPRESSION: 1. Minimal right lower lobe infiltrate.
--- NOTE | 2020-03-26 11:08 | P.PN ---
Subjective Progress Note Date: 03/26/20 This pleasant 54-year-old gentleman who presented with respiratory failure was found to have atrial fibrillation. Has a history of esophageal stenosis and underwent esophageal dilatation. He had aspiration pneumonia on presentation. Overall he is feeling fairly well. He is maintaining sinus mechanism. He's had no dizziness. He feels his breathing is better. He's had no complaints of chest discomfort, orthopnea or PND. He continues to be on Eliquis 5 mg by mouth twice a day, Lasix 40 mg by mouth daily, Solu-Cortef, metoprolol titrate 25 mg by mouth twice a day. No labs available yet for this morning. Objective - Vital Signs Vital signs: Vital Signs Temp 97.8 F 03/26/20 07:57 Pulse 71 03/26/20 07:57 Resp 19 03/26/20 07:57 BP 107/68 03/26/20 07:57 Pulse Ox 94 L 03/26/20 07:57 Intake & Output 03/25/20 03/26/20 03/26/20 18:59 06:59 18:59 Intake Total 1160 240 Output Total 2350 900 Balance -1190 -900 240 Weight 120.2 kg Intake: IV 320 Sodium Chloride 0.9% 1, 320 000 ml @ 40 mls/hr IV . Q24H REPLACED BY [facility] Rx#:[id number] Oral 840 240 Output: Urine 2350 900 Other: Voiding Method Indwelling Catheter Indwelling Catheter Indwelling Catheter ABP, PAP, CO, CI - Last Documented Arterial Blood Pressure 133/75 - Exam PHYSICAL EXAMINATION: HEENT: Head is atraumatic, normocephalic. Pupils equal, round. Neck is supple. There is no elevated jugular venous pressure. HEART EXAMINATION: Heart sounds regular, S1 and S2 normal with a systolic murmur. CHEST EXAMINATION: Lungs are clear to auscultation. No chest wall tenderness is noted on palpation or with deep breathing. ABDOMEN: Soft, nontender. Bowel sounds are heard. No organomegaly noted. EXTREMITIES: 1+ peripheral pulses with evidence of +1 peripheral edema and no calf tenderness noted. NEUROLOGIC patient is awake, alert and oriented x3. . - Labs CBC & Chem 7: 03/26/20 06:27 03/25/20 17:42 Labs: Abnormal Lab Results - Last 24 Hours (Table) 03/25/20 03/25/20 03/25/20 Range/Units 11:47 17:38 21:54 WBC (3.8-10.6) k/uL RBC (4.30-5.90) m/uL Hgb (13.0-17.5) gm/dL Hct (39.0-53.0) % MCH (25.0-35.0) pg MCHC (31.0-37.0) g/dL RDW (11.5-15.5) % Plt Count (150-450) k/uL POC Glucose (mg/dL) 109 H 118 H 101 H (75-99) mg/dL 03/26/20 Range/Units 06:27 WBC 10.8 H (3.8-10.6) k/uL RBC 3.74 L (4.30-5.90) m/uL Hgb 8.8 L (13.0-17.5) gm/dL Hct 30.2 L (39.0-53.0) % MCH 23.6 L (25.0-35.0) pg MCHC 29.3 L (31.0-37.0) g/dL RDW 17.4 H (11.5-15.5) % Plt Count 115 L (150-450) k/uL POC Glucose (mg/dL) (75-99) mg/dL Microbiology - Last 24 Hours (Table) 03/19/20 22:31 Blood Culture - Final Blood No Growth after 144 hours 03/19/20 22:16 Blood Culture - Final Blood No Growth after 144 hours 03/19/20 12:49 Blood Culture - Final Blood No Growth after 144 hours Assessment and Plan Assessment: #1 paroxysmal atrial fibrillation, maintaining sinus mechanism #2 history of esophageal strictures status post dilatation #3 for respiratory failure with aspiration pneumonia, improving #4 history of gastric sleeve #5 history of CVA #6 diabetes mellitus Plan: From cardiac standpoint he is stable. Continue to increase activity. Awaiting morning labs. Continue anticoagulation. Medications reviewed and will continue the same. Continue to follow renal function closely. We anticipate the patient will be discharged home soon. GLASS MELT OPERATOR note has been reviewed, I agree with a documented findings and plan of care. Patient was seen and examined.
[2020-03-26 11:29] LABS: Glucose,Whole Blood 110 mg/dL (75-99)
[2020-03-26 11:38] LABS: African American GFR (CKD) 131.2 (60.0-200.0); Anion Gap 7.1 mmol/L (4.00-12.00); BUN/Creat Ratio 21.67 Ratio (12.00-20.00); C Reactive Protein 12.5 mg/dL (0.0-0.8); Carbon Dioxide 37.9 mmol/L (21.6-31.8); Non-African American GFR(CKD) 113.2 (60.0-200.0); Potassium 3.6 mmol/L (3.5-5.5)
--- NOTE | 2020-03-26 12:01 | PN ---
PROGRESS NOTE DATE OF SERVICE: March 26, 2020 Patient is a 54-year-old pleasant white male doing well. He was transferred from the intensive care unit on broad-spectrum antibiotics. He denies any symptoms. Able to tolerate soft diet very well. No dysphagia. The patient on further questioning, the patient states that he had a gastric sleeve surgery in 2013 and subsequently in June of 2018 he underwent a hiatal hernia repair because of a large incarcerated paraesophageal hiatal hernia by Dr. Dumont. The patient has been having trouble swallowing since then. He was referred to [facility] and has seen Dr. Patel, esophageal motility specialist and apparently was diagnosed with esophageal achalasia after having an esophageal manometry. The patient was told he is not a candidate for any endoscopic or surgical therapy at this time. PHYSICAL EXAMINATION: He appears comfortable. No apparent distress. Vital signs stable. Blood pressure is 107/68, pulse rate 71, temperature 97.8. HEENT examination unremarkable. Conjunctivae pink. Sclerae anicteric. Oral cavity no lesions. NECK no JVD or lymph node enlargement. CHEST was clear to auscultation. HEART: Regular rate and rhythm. ABDOMEN: Soft. Bowel sounds are positive. No organomegaly. EXTREMITIES: No pedal edema. NEURO: He is alert and oriented x3. No focal deficits. LABS: From today WBC 10.8, hemoglobin 8.8. Platelets 115. Rest of the labs are within normal limits. IMPRESSION: 1. Bilateral pneumonia on broad-spectrum antibiotics. 2. Dysphagia, status post EGD 2 days ago that showed tortuous dilated esophagus with mild tightness of the lower esophageal sphincter suspicious for esophageal achalasia. The patient states that he was already diagnosed with esophageal motility disorder and has seen Dr. Patel, esophageal motility specialist at [facility] early part of this year and he underwent esophageal manometry. At that time, he was told he is not a candidate for any surgical or endoscopic intervention. 3. History of atrial fibrillation on Eliquis. 4. Longstanding history of diabetes mellitus. RECOMMENDATIONS: 1. Continue with soft diet. 2. No plans for any further workup as originally planned. 3. No need for esophageal manometry as it appears the patient already was investigated extensively at [facility] by Dr. Patel as mentioned above. 4. He was advised to continue on a soft diet, and if he has any further issues with dysphagia, he can have a periodic upper endoscopy with dilation. We will follow with you closely. Thank you for this consultation. BLUL / IJN: [id number] /
--- NOTE | 2020-03-26 14:44 | P.PN ---
Subjective Progress Note Date: 03/26/20 Principal diagnosis: Acute hypoxemic respiratory failure secondary to aspiration pneumonia This is a very pleasant 54-year-old -[place] gentleman who presented with acute hypoxic respiratory failure requiring intubation on March 19 and extubated on March 21. This was felt to be due to aspiration pneumonia. He was found to have esophageal strictures requiring dilatation during EGD this admission. His cultures were positive for Klebsiella pneumoniae ESBL in the urine. He is currently on meropenem. He was transferred out of the intensive care unit and is seen today in follow-up on the regular medical floor. He continues to do quite well. Awake and alert in no acute distress. X-ray reveals a minimal right lower lobe infiltrate. He is maintaining O2 saturations in the low 90s on 2 L/m per nasal cannula. He's been afebrile. Blood and sputum cultures revealed no growth. White count 10.8. Hemoglobin 8.8. Platelets 115,000 sodium 140. Potassium 3.6. Creatinine 0.6. He remains on meropenem. Solu-Cortef. Eliquis for anticoagulation. Tolerating a dysphagia level III chopped Diet Objective - Vital Signs Vital signs: Vital Signs Temp 98.2 F 03/26/20 14:18 Pulse 77 03/26/20 14:18 Resp 17 03/26/20 14:18 BP 96/60 03/26/20 14:18 Pulse Ox 92 L 03/26/20 14:18 Intake & Output 03/25/20 03/26/20 03/26/20 18:59 06:59 18:59 Intake Total 1160 1620 Output Total 2350 900 1700 Balance -1190 -900 -80 Weight 120.2 kg Intake: IV 320 340 Meropenem 1 gm In Sodium 100 Chloride 0.9% 100 ml @ 33 .3 mls/hr IVPB Q8HR [facility] Rx#:[id number] Sodium Chloride 0.9% 1, 320 240 000 ml @ 40 mls/hr IV . Q24H [facility] Rx#:[id number] Oral 840 1280 Output: Urine 2350 900 1700 Other: Voiding Method Indwelling Catheter Indwelling Catheter Indwelling Catheter ABP, PAP, CO, CI - Last Documented Arterial Blood Pressure 133/75 - Exam GENERAL EXAM: Alert, doesn't 54-year-old gentleman, on 2 L nasal cannula, comfortable in no apparent distress. HEAD: Normocephalic. EYES: Normal reaction of pupils, equal size. NOSE: Clear with pink turbinates. THROAT: No erythema or exudates. NECK: No masses, no JVD. CHEST: No chest wall deformity. LUNGS: Equal air entry with crackles in the right base. CVS: S1 and S2 normal with no audible murmur, regular rhythm. ABDOMEN: No hepatosplenomegaly, normal bowel sounds, no guarding or rigidity. SPINE: No scoliosis or deformity SKIN: No rashes CENTRAL NERVOUS SYSTEM: No focal deficits, tone is normal in all 4 extremities. EXTREMITIES: There is no peripheral edema. No clubbing, no cyanosis. Peripheral pulses are intact. - Labs CBC & Chem 7: 03/26/20 06:27 03/26/20 06:27 Labs: Abnormal Lab Results - Last 24 Hours (Table) 03/25/20 03/25/20 03/26/20 Range/Units 17:38 21:54 06:27 WBC (3.8-10.6) k/uL RBC (4.30-5.90) m/uL Hgb (13.0-17.5) gm/dL Hct (39.0-53.0) % MCH (25.0-35.0) pg MCHC (31.0-37.0) g/dL RDW (11.5-15.5) % Plt Count (150-450) k/uL Chloride 95 L (96-109) mmol/L Carbon Dioxide 37.9 H (21.6-31.8) mmol/L BUN/Creatinine Ratio 21.67 H (12.00-20.00) Ratio POC Glucose (mg/dL) 118 H 101 H (75-99) mg/dL Calcium 8.0 L (8.7-10.3) mg/dL C-Reactive Protein 12.5 H (0.0-0.8) mg/dL Procalcitonin (0.02-0.09) ng/mL 03/26/20 03/26/20 03/26/20 Range/Units 06:27 06:27 11:24 WBC 10.8 H (3.8-10.6) k/uL RBC 3.74 L (4.30-5.90) m/uL Hgb 8.8 L (13.0-17.5) gm/dL Hct 30.2 L (39.0-53.0) % MCH 23.6 L (25.0-35.0) pg MCHC 29.3 L (31.0-37.0) g/dL RDW 17.4 H (11.5-15.5) % Plt Count 115 L (150-450) k/uL Chloride (96-109) mmol/L Carbon Dioxide (21.6-31.8) mmol/L BUN/Creatinine Ratio (12.00-20.00) Ratio POC Glucose (mg/dL) 110 H (75-99) mg/dL Calcium (8.7-10.3) mg/dL C-Reactive Protein (0.0-0.8) mg/dL Procalcitonin 1.34 H (0.02-0.09) ng/mL Microbiology - Last 24 Hours (Table) 03/19/20 22:31 Blood Culture - Final Blood No Growth after 144 hours 03/19/20 22:16 Blood Culture - Final Blood No Growth after 144 hours 03/19/20 12:49 Blood Culture - Final Blood No Growth after 144 hours Assessment and Plan Assessment: 1 Acute hypoxemic hypercapnic respiratory failure secondary to aspiration pneumonia, requiring intubation mechanical ventilatory support from March 19 through 03/21/2020. Recovered and on 2 L. 2 Acute septic shock secondary to pneumonia and/or klebsiella urinary tract infection, recovered 2 History of chronic adrenal insufficiency, currently on replacement therapy 4 Chronic anemia 5 Morbid obesity, status post gastric sleeve in December 2019 6 Atrial fibrillation with a rapid ventricular response, currently controlled, anticoagulated with Eliquis 7 History of CVA 8 History of hypertension 9 Chronic back pain with pain pump implantation 10 History of esophageal stricture with multiple dilatations, most recently on this admission 03/24/2000 11 Nonischemic cardiomyopathy 12 Diabetes mellitus 13 History of previous tobacco dependence Plan: The patient was seen and evaluated by Dr. Gomez Chest x-ray and labs reviewed Currently stable from the pulmonary and critical care standpoint Continue aspiration precautions Continue meropenem We'll continue to follow I, the cosigning physician, performed a history & physical examination of the patient. Lungs sounds crackles in the right lung base. Maintaining good O2 saturations in the 90s on 2 L/m per nasal cannula. I discussed the assessment and plan of care with my nurse practitioner, Sherrill Sun. I attest to the above note as dictated by her.
[2020-03-26] MEDS: SODIUM CHLORIDE 0.9% 500 ML 500 ML IV SCH (16:00)
--- NOTE | 2020-03-26 16:18 | P.PN ---
Progress Note - Text Progress Note Date: 03/26/20 History of presenting complaint: This is a very pleasant 54-year-old patient of Dr. Alexandrea Ang. stable medical conditions include hypertension, , gout, chronic bilateral hip pain, peripheral neuropathy. gastric [place] [address] Zarate. 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 Dumont. At baseline patient is to walk slowly because of peripheral neuropathy. In August 2018 patient had EGD done that showed severe erosive esophagitis with esophageal ulcer. readmitted July 05 underwent balloon dilatation of 10-7 mm done. admitted July 22 and underwent EGD by Dr. Carbajal. Found-severe esophagitis and distal esophageal obstruction. A 10 mm dilatation was carried out. Retained food was extracted. Found to have possible aspiration pneumonia bilateral, treat with IV Zosyn-discharge. Dr. Carbajal discharged on Augmentin on July 26. 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 In December of this year patient admitted with small bowel obstruction and recurrent hypoglycemia and was then transferred to [facility]. Now admitted with-atrial fibrillation rapid ventricular rate. Put on IV heparin and IV Cardizem. 2-D echo showed EF of 50-55 %. Also had acute hypoxemic and hypercapnic respiratory failure secondary pneumonia requiring intubation and ventilation on March 19. Also septic shock. Extubated March 21. Also UTI with urine growing Klebsiella pneumoniae/ESBL. Patient has a discrepancy between his Accu-Chek taken peripherally and from the central line. Being 110 from the central line and 40 peripherally.EGD - dilated tortuous esophagus with increased lower esophageal sphincter tone suspicious for esophageal a Klebsiella. Balloon dilatation done with 10-12 mm balloon. Eating much better after dilatation. Today-eating better. Tired. Comfortable. Review of systems: Was done for constitutional, cardiovascular, GI, pulmonary. relevant finding as above Active Medications Acetaminophen (Acetaminophen Tab 325 Mg Tab) 650 mg PO Q4HR PRN PRN Reason: Fever and/or Mild Pain Last Admin: 03/26/20 08:41 Dose: 650 mg Documented by: Apixaban (Apixaban 5 Mg Tab) 5 mg PO BID MATT Last Admin: 03/26/20 08:41 Dose: 5 mg Documented by: Bisacodyl (Bisacodyl 5 Mg Tablet.Dr) 10 mg PO HS [facility] Last Admin: 03/25/20 21:55 Dose: 10 mg Documented by: Escitalopram Oxalate (Escitalopram 10 Mg Tab) 10 mg PO DAILY [facility] Last Admin: 03/26/20 08:41 Dose: 10 mg Documented by: Furosemide (Furosemide 40 Mg Tab) 40 mg PO DAILY [facility] Last Admin: 03/26/20 08:41 Dose: 40 mg Documented by: Hydrocortisone (Hydrocortisone 20 Mg Tab) 20 mg PO DAILY [facility] Last Admin: 03/26/20 08:41 Dose: 20 mg Documented by: Hydrocortisone (Hydrocortisone 10 Mg Tab) 10 mg PO HS [facility] Last Admin: 03/25/20 23:22 Dose: 10 mg Documented by: Meropenem 1 gm/ Sodium (Chloride) 100 mls @ 33.3 mls/hr IVPB Q8HR [facility]; Protocol Last Admin: 03/26/20 09:11 Dose: 33.3 mls/hr Documented by: Sodium Chloride (Saline 0.9%) 500 mls @ 20 mls/hr IV .Q24H [facility] Last Admin: 03/26/20 16:00 Dose: Not Given Documented by: Insulin Aspart (Insulin Aspart (Novolog) 100 Unit/Ml Vial) 0 unit SQ ACHS [facility]; Protocol Last Admin: 03/26/20 11:30 Dose: Not Given Documented by: Lacosamide (Lacosamide 50 Mg Tablet) 50 mg PO BID [facility] Last Admin: 03/26/20 08:41 Dose: 50 mg Documented by: Metoprolol Tartrate (Metoprolol Tartrate 25 Mg Tab) 25 mg PO BID [facility] Last Admin: 03/26/20 08:41 Dose: 25 mg Documented by: Miscellaneous Information (Potassium Replacement Protocol 1 Each Misc) 1 each MISCELLANE DAILY PRN; Protocol PRN Reason: Per Protocol Naloxone HCl (Naloxone 0.4 Mg/Ml 1 Ml Vial) 0.2 mg IV Q2M PRN PRN Reason: Opioid Reversal Naloxone HCl (Naloxone 0.4 Mg/Ml 1 Ml Vial) 0.2 mg IV Q2M PRN PRN Reason: Opioid Reversal Oxycodone/Acetaminophen (Oxycodone-Apap 7.5-325mg 1 Each Tab) 1 each PO DAILY PRN PRN Reason: Pain Control Last Admin: 03/26/20 02:55 Dose: 1 each Documented by: Pantoprazole Sodium (Pantoprazole 40 Mg Tablet) 40 mg PO AC-BID [facility] Last Admin: 03/26/20 08:41 Dose: 40 mg Documented by: Pregabalin (Pregabalin 100 Mg Cap) 300 mg PO BID [facility] Last Admin: 03/26/20 08:41 Dose: 300 mg Documented by: Physical examination: VITAL SIGNS: 98.2, 77, 17, 96/60, 94% room air GENERAL: Laying in bed, comfortable EYES: Pupils equal. Conjunctiva normal. HEENT: External appearance of nose and ears normal, oral cavity grossly normal. NECK: JVD not raised; masses not palpable. HEART: First and second heart sounds are normal; no edema. LUNGS: Respiratory rate increased, decreased breath sounds. ABDOMEN: Soft, nontender, liver spleen not palpable, no masses palpable. Left abdominal wall has a pain pump . PSYCH: Alert and oriented x3; mood and affect normal. INVESTIGATIONS, reviewed in the clinical context: White count 10.8 hemoglobin 8.8 platelets 115 potassium 3.6 creatinine 0.6 Previous testing: Chest [id number] CT angiogram chest-no PE. Extensive consolidation and atelectasis, right lower lobe. 2-D echocardiogram-moderate concentric LVH, EF 50-55% Assessment: -Multilobar pneumonia suspected gram-negative organism, causing septic shock POA-improved -Acute hypoxic and hypercapnic respiratory failure secondary to aspiration pneumonia requiring intubation mechanical ventilation on March 19.-Improved -Troponin leak from hemodynamic mismatch. No acute coronary syndrome. -Acute UTI with cystitis from Klebsiella Pneumoniae/ESBL -recurrent esophageal stricture with recurrent dilatation - EGD found to have dilated tortuous esophagus with increased lower esophageal sphincter tone suspicious for esophageal a Klebsiella. Balloon dilatation done with 10-12 mm balloon -History of paraesophageal repair and history of sleeve gastrectomy -Essential hypertension -Primary osteoarthritis -Gout -Idiopathic peripheral neuropathy -Chronic back pain with the pain pump -Anemia of chronic disease -Paroxysmal atrial fibrillation with a rapid ventricular rate initially., Now in sinus rhythm -Hypoglycemia noted by Accu-Cheks peripheral check from central blood draw no hypoglycemia present.-Keep a close eye. Plan: -On IV meropenem. Tolerating diet. Hopefully can be discharged to [facility] tomorrow. Antibiotics per ID.
[2020-03-26 16:37] LABS: Glucose,Whole Blood 181 mg/dL (75-99)
[2020-03-26] MEDS: bisacodyL 5 MG TABLET.DR PO SCH (19:54)
[2020-03-26] MEDS: HYDROCORTISONE 10 MG TAB PO SCH (19:56)
[2020-03-26] MEDS: AMOXIC-POT CLAV 875-125MG 1 EACH TAB PO SCH (20:07)
[2020-03-26 21:17] LABS: Glucose,Whole Blood 66 mg/dL (75-99)
[2020-03-26 21:17] LABS: Glucose,Whole Blood 74 mg/dL (75-99)
[2020-03-26 22:12] LABS: Glucose,Whole Blood 136 mg/dL (75-99)
[2020-03-27] MEDS: oxyCODONE-APAP 7.5-325MG 1 EACH TAB PO PRN (04:53)
--- NOTE | 2020-03-27 06:21 | PN ---
PROGRESS NOTE DATE OF SERVICE: 03/26/2020 REASON FOR FOLLOW UP: 1. Aspiration pneumonia. 2. ESBL Klebsiella urinary tract infection. 3. Scrotal wound. INTERVAL HISTORY: Patient is currently afebrile. Patient is breathing comfortably. The patient denies having any chest pain or shortness of breath or cough. No nausea, vomiting, abdominal pain. No diarrhea. Has been complaining of slight bleeding from his scrotal wound area. PHYSICAL EXAMINATION: Blood pressure 117/77, pulse of 52, temperature 98.2, he is 99% on room air. General description is a middle-aged male lying in bed in no distress. Respiratory system: Unlabored breathing, decreased breath sounds in the base, with no wheeze. Heart S1, S2. Regular rhythm. Abdomen is soft, no tenderness. Scrotum with very small superficial wound on both with some blood-stained drainage. drainage. LABS: Hemoglobin 8.8, white count 10.8. The patient's UA done today is clear. Chest x-ray completed with minimal right lower lobe infiltrate. IMPRESSION/PLAN: 1. Patient with extended spectrum beta lactamase Klebsiella urinary tract infection, adequately treated. Discontinue meropenem. 2. Patient with left lower lobe pneumonia, aspiration etiology. Sputum was negative for any resistant pathogen. We will start the patient on Augmentin 875 b.i.d. for about a week. 3. Scrotal wound. Local care with Aquacel silver dressing. 4. Discontinue the femoral line and no need for PICC line on discharge. MMODL / IJN: [id number] /
[2020-03-27 07:03] LABS: Glucose,Whole Blood 92 mg/dL (75-99)
[2020-03-27 07:43] VITALS: RESP 18
--- NOTE | 2020-03-27 09:02 | P.PN ---
Subjective Progress Note Date: 03/27/20 Principal diagnosis: Paroxysmal atrial fibrillation This is a pleasant 54-year-old gentleman with history of CVA and history of diabetes who was admitted to the hospital with respiratory failure and aspiration pneumonia. Consulted to see the patient because of atrial fibrillati on. The patient was seen today March [id number]. He is feeling overall better. He denies any chest pain or chest discomfort or shortness of breath at this point. He has been maintaining normal sinus mechanism. He is on oral anticoagulation and also he is on metoprolol. There is no chest x-ray from this morning but the chest x-ray from yesterday revealed minimal left lobe infiltrate. Pulmon elisha/critical care team is on the case. Objective - Vital Signs Vital signs: Vital Signs Temp 98.0 F 03/27/20 07:00 Pulse 70 03/27/20 07:00 Resp 18 03/27/20 07:00 BP 101/65 03/27/20 07:00 Pulse Ox 95 03/27/20 07:00 Intake & Output 03/26/20 03/27/20 03/27/20 18:59 06:59 18:59 Intake Total 1620 900 Output Total 1700 1100 Balance -80 -200 Intake: IV 340 Meropenem 1 gm In Sodium 100 Chloride 0.9% 100 ml @ 33 .3 mls/hr IVPB Q8HR MATT Rx#:[id number] Sodium Chloride 0.9% 1, 240 000 ml @ 40 mls/hr IV . Q24H MATT Rx#:[id number] Oral 1280 900 Output: Urine 1700 1100 Other: Voiding Method Indwelling Catheter Indwelling Catheter # Bowel Movements 1 ABP, PAP, CO, CI - Last Documented Arterial Blood Pressure 133/75 - Constitutional General appearance: Present: no acute distress - Respiratory Respiratory: bilateral: diminished - Cardiovascular Rhythm: regular Heart sounds: normal: S1, S2 - Labs CBC & Chem 7: 03/26/20 06:27 03/26/20 06:27 Labs: Abnormal Lab Results - Last 24 Hours (Table) 03/26/20 03/26/20 03/26/20 Range/Units 06:27 06:27 11:24 Chloride 95 L (96-109) mmol/L Carbon Dioxide 37.9 H (21.6-31.8) mmol/L BUN/Creatinine Ratio 21.67 H (12.00-20.00) Ratio POC Glucose (mg/dL) 110 H (75-99) mg/dL Calcium 8.0 L (8.7-10.3) mg/dL C-Reactive Protein 12.5 H (0.0-0.8) mg/dL Procalcitonin 1.34 H (0.02-0.09) ng/mL 03/26/20 03/26/20 03/26/20 Range/Units 16:35 20:45 21:14 Chloride (96-109) mmol/L Carbon Dioxide (21.6-31.8) mmol/L BUN/Creatinine Ratio (12.00-20.00) Ratio POC Glucose (mg/dL) 181 H 66 L 74 L (75-99) mg/dL Calcium (8.7-10.3) mg/dL C-Reactive Protein (0.0-0.8) mg/dL Procalcitonin (0.02-0.09) ng/mL 03/26/20 Range/Units 22:09 Chloride (96-109) mmol/L Carbon Dioxide (21.6-31.8) mmol/L BUN/Creatinine Ratio (12.00-20.00) Ratio POC Glucose (mg/dL) 136 H (75-99) mg/dL Calcium (8.7-10.3) mg/dL C-Reactive Protein (0.0-0.8) mg/dL Procalcitonin (0.02-0.09) ng/mL Assessment and Plan Assessment: Assessment #1 proximal atrial fibrillation #2 history of respiratory failure and aspiration pneumonia #3 history of CVA Plan #1 continue the current medical regimen #2 continue oral anticoagulation and beta raf #3 the patient possibly can be discharged home in the next 24 hours #4 will follow-up with the patient on when necessary case
[2020-03-27] MEDS: INSULIN ASPART (NovoLOG) 100 UNIT/ML VIAL SQ SCH ×2 (09:40→12:11)
[2020-03-27] MEDS: ESCITALOPRAM 10 MG TAB PO SCH (09:51)
[2020-03-27] MEDS: PREGABALIN 100 MG CAP PO SCH (09:51)
[2020-03-27] MEDS: APIXABAN 5 MG TAB PO SCH (09:51)
[2020-03-27] MEDS: FUROSEMIDE 40 MG TAB PO SCH (09:52)
[2020-03-27] MEDS: LACOSAMIDE 50 MG TABLET PO SCH (09:52)
[2020-03-27] MEDS: METOPROLOL TARTRATE 25 MG TAB PO SCH (09:52)
[2020-03-27] MEDS: HYDROCORTISONE 20 MG TAB PO SCH (09:52)
[2020-03-27] MEDS: PANTOPRAZOLE 40 MG TABLET PO SCH (09:52)
[2020-03-27] MEDS: AMOXIC-POT CLAV 875-125MG 1 EACH TAB PO SCH (09:54)
[2020-03-27 11:00] LABS: African American GFR (CKD) 123.1 (60.0-200.0); Anion Gap 5.6 mmol/L (4.00-12.00); Calcium 7.9 mg/dL (8.7-10.3); Carbon Dioxide 39.4 mmol/L (21.6-31.8); Non-African American GFR(CKD) 106.2 (60.0-200.0); Potassium 3.8 mmol/L (3.5-5.5)
[2020-03-27 11:34] LABS: Glucose,Whole Blood 88 mg/dL (75-99)
--- NOTE | 2020-03-27 14:25 | P.DS ---
Providers Date of admission: 03/19/20 15:01 Expected date of discharge: 03/27/20 Attending physician: Chavez Pedraza Consults: 03/19/20 15:01 Consult Physician Routine Consulting Provider: Jairon Sheffield Consult Reason/Comments: Rapid A. fib, elevated troponin Do you want consulting provider notified?: Already Contacted Consult Physician Stat Consulting Provider: Mei Espinosa Consult Reason/Comments: ICU care Do you want consulting provider notified?: Already Contacted 03/19/20 15:09 Consult Physician Routine Consulting Provider: Navdeep Piedra Consult Reason/Comments: sepsis Do you want consulting provider notified?: Yes [facility] Course: History of presenting complaint: This is a very pleasant 54-year-old patient of Dr. Alexandrea Ang. stable medical conditions include hypertension, , gout, chronic bilateral hip pain, peripheral neuropathy. gastric [place] [address] Zarate. 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 Dumont. At baseline patient is to walk slowly because of pe ripheral neuropathy. In August 2018 patient had EGD done that showed severe erosive esophagitis with esophageal ulcer. readmitted July 05 underwent balloon dilatation of 10-7 mm done. admitted July 22 and underwent EGD by Dr. Carbajal. Found-severe esophagitis and distal esophageal obstruction. A 10 mm dilatation was carried out. Retained food was extracted. Found to have possible aspiration pneumonia bilateral, treat with IV Zosyn-discharge. Dr. Carbajal discharged on Augmentin on July 26. On December 11 and I&D of the right scrotal abscess. - Shboha's gangrene. In December of this year patient admitted with small bowel obstruction and recurrent hypoglycemia and was then transferred to [facility]. Now admitted with-atrial fibrillation rapid ventricular rate. Put on IV heparin and IV Cardizem. 2-D echo showed EF of 50-55 %. Also had acute hypoxemic and hypercapnic respiratory failure secondary pneumonia requiring intubation and ventilation on March 19. Also septic shock. Extubated March 21. Also UTI with urine growing Klebsiella pneumoniae/ESBL. Patient has a discrepancy between his Accu-Chek taken peripherally and from the central line. Being 110 from the central line and 40 peripherally.EGD - dilated tortuous esophagus with increased lower esophageal sphincter tone suspicious for esophageal a Klebsiella. Balloon dilatation done with 10-12 mm balloon. Eating much better after dilatation. Completed course of IV meropenem.-Transitioned to Augmentin. Today-doing well. Eating well. Comfortable. Scrotal wound has been healing well. Consultation: Dr. Piedra from [facility] Dr. Gomez colleagues from pulmonary Dr. Shaikh from GI Physical examination: VITAL SIGNS: 98, 70, 18, 101/65, 95% room air GENERAL: Laying in bed, comfortable EYES: Pupils equal. Conjunctiva normal. HEENT: External appearance of nose and ears normal, oral cavity grossly normal. NECK: JVD not raised; masses not palpable. HEART: First and second heart sounds are normal; no edema. LUNGS: Respiratory rate increased, decreased breath sounds. ABDOMEN: Soft, nontender, liver spleen not palpable, no masses palpable. Left abdominal wall has a pain pump .-Scrotal wound healing well PSYCH: Alert and oriented x3; mood and affect normal. INVESTIGATIONS, reviewed in the clinical context: White count 3.8 creatinine 0.7 Previous testing: Chest [id number] CT angiogram chest-no PE. Extensive consolidation and atelectasis, right lower lobe. 2-D echocardiogram-moderate concentric LVH, EF 50-55% Assessment: -Multilobar pneumonia suspected gram-negative organism, causing septic shock POA-improved -Acute hypoxic and hypercapnic respiratory failure secondary to aspiration pneumonia requiring intubation mechanical ventilation on March 19.-Improved -Troponin leak from hemodynamic mismatch. No acute coronary syndrome. -Acute UTI with cystitis from Klebsiella Pneumoniae/ESBL -recurrent esophageal stricture with repeat dilatation - EGD found to have dilated tortuous esophagus with increased lower esophageal sphincter tone suspicious for esophageal achalasia. Balloon dilatation done with 10-12 mm balloon-eating well after procedure -History of paraesophageal repair and history of sleeve gastrectomy -Essential hypertension -Primary osteoarthritis -Gout -Idiopathic peripheral neuropathy -Chronic back pain with the pain pump -Anemia of chronic disease -Paroxysmal atrial fibrillation with a rapid ventricular rate initially., Now in sinus rhythm -Hypoglycemia noted by Accu-Cheks peripheral check from central blood draw no hypoglycemia present.-Keep a close eye. Disposition: [facility] Patient Condition at Discharge: Stable Plan - Discharge Summary Discharge Rx Participant: Yes New Discharge Prescriptions: New Apixaban [Eliquis] 5 mg PO BID tab Furosemide [Lasix] 40 mg PO DAILY tab Acetaminophen Tab [Tylenol] 650 mg PO Q4HR PRN tab PRN Reason: Fever And/Or Mild Pain Amoxic-Pot Clav 875-125Mg [Augmentin 875-125] 1 each PO Q12HR #14 tab Continue Escitalopram [Lexapro] 10 mg PO DAILY Allopurinol [Zyloprim] 300 mg PO DAILY Lacosamide [Vimpat] 50 mg PO BID Omeprazole 40 mg PO BID #60 cap oxyCODONE-APAP 7.5-325MG [Percocet 7.5-325 mg] 1 tab PO DAILY PRN #10 tab PRN Reason: Pain Hydrocortisone [Cortef] 10 mg PO HS Hydrocortisone [Cortef] 20 mg PO DAILY Sildenafil Citrate 100 mg PO DAILY PRN PRN Reason: ED Pregabalin [Lyrica] 300 mg PO BID #6 cap Changed Zolpidem Tartrate [Ambien] 5 mg PO HS #4 tab Cyclobenzaprine [Flexeril] 10 mg PO BID PRN #0 PRN Reason: Spasms Metoprolol Tartrate [Lopressor] 25 mg PO BID #0 Discontinued Furosemide [Lasix] 20 mg PO DAILY No Action lisinopriL [Zestril] 2.5 mg PO DAILY Discharge Medication List Allopurinol [Zyloprim] 300 mg PO DAILY 06/04/16 [History] Escitalopram [Lexapro] 10 mg PO DAILY 06/04/16 [History] Lacosamide [Vimpat] 50 mg PO BID 03/25/18 [History] Omeprazole 40 mg PO BID #60 cap 07/06/19 [Rx] oxyCODONE-APAP 7.5-325MG [Percocet 7.5-325 mg] 1 tab PO DAILY PRN #10 tab 12/15/19 [Rx] lisinopriL [Zestril] 2.5 mg PO DAILY 01/08/20 [History] Hydrocortisone [Cortef] 10 mg PO HS 03/09/20 [History] Hydrocortisone [Cortef] 20 mg PO DAILY 03/09/20 [History] Sildenafil Citrate 100 mg PO DAILY PRN 03/09/20 [History] Acetaminophen Tab [Tylenol] 650 mg PO Q4HR PRN tab 03/27/20 [Rx] Amoxic-Pot Clav 875-125Mg [Augmentin 875-125] 1 each PO Q12HR #14 tab 03/27/20 [Rx] Apixaban [Eliquis] 5 mg PO BID tab 03/27/20 [Rx] Cyclobenzaprine [Flexeril] 10 mg PO BID PRN #0 03/27/20 [Rx] Furosemide [Lasix] 40 mg PO DAILY tab 03/27/20 [Rx] Metoprolol Tartrate [Lopressor] 25 mg PO BID #0 03/27/20 [Rx] Pregabalin [Lyrica] 300 mg PO BID #6 cap 03/27/20 [Rx] Zolpidem Tartrate [Ambien] 5 mg PO HS #4 tab 03/27/20 [Rx] Follow up Appointment(s)/Referral(s): Eric Ang DO [Primary Care Provider] - 3 Days Activity/Diet/Wound Care/Special Instructions: wound care per ID
--- NOTE | 2020-03-27 14:35 | P.PN ---
Subjective Progress Note Date: 03/27/20 Principal diagnosis: Acute hypoxic respiratory failure secondary to aspiration pneumonia This is a very pleasant 54-year-old -[place] gentleman who presented with acute hypoxic respiratory failure requiring intubation on March 19 and extubated on March 21. This was felt to be due to aspiration pneumonia. He was found to have esophageal strictures requiring dilatation during EGD this admission. His cultures were positive for Klebsiella pneumoniae ESBL in the urine. He is currently on meropenem. He was transferred out of the intensive care unit and is seen today in follow-up on the regular medical floor. He continues to do quite well. Awake and alert in no acute distress. X-ray reveals a minimal right lower lobe infiltrate. He is maintaining O2 saturations in the low 90s on 2 L/m per nasal cannula. He's been afebrile. Blood and sputum cultures revealed no growth. White count 10.8. Hemoglobin 8.8. Platelets 115,000 sodium 140. Potassium 3.6. Creatinine 0.6. He remains on meropenem. Solu-Cortef. Eliquis for anticoagulation. Tolerating a dysphagia level III chopped Diet On 03/27/2020 patient seen in follow-up on esophageal medical surgical floor, patient is awake and alert, in no acute distress, currently on remains on room air with a pulse ox of 94-95%, hemodynamically stable, he is been afebrile. No acute events overnight, lung sounds are clear, no worsening dyspnea, he remains on antibiotics, currently on Augmentin, completed a course of meropenem for Klebsiella pneumonia urinary tract infection, the service has been following, blood and sputum cultures have shown no growth thus far. His blood work from yesterday showed white blood cell count of 10.8, hemoglobin is 8.8. Sodium is 139, potassium is 3.8, chloride is 94, CO2 is 39, BUN is 14 creatinine 0.7. Repeat urinalysis showed no evidence of infection. No complaints of dysphagia, patient is status post EGD 3 days ago that showed tortuous dilated esophagus with mild tightness of the lower esophageal sphincter suspicious for esophageal achalasia. Patient follows a esophageal motility specialist at the [facility], currently not a candidate for any surgical or endoscopic intervention. Patient is on Eliquis for history of atrial fibrillation, his rate is controlled, his vital signs have been stable, he is tolerating soft diet. Objective - Vital Signs Vital signs: Vital Signs Temp 98.0 F 03/27/20 07:00 Pulse 70 03/27/20 07:00 Resp 18 03/27/20 07:00 BP 101/65 03/27/20 07:00 Pulse Ox 95 03/27/20 07:00 Intake & Output 03/26/20 03/27/20 03/27/20 18:59 06:59 18:59 Intake Total 1620 900 Output Total 1700 1100 600 Balance -80 -200 -600 Intake: IV 340 Meropenem 1 gm In Sodium 100 Chloride 0.9% 100 ml @ 33 .3 mls/hr IVPB Q8HR MATT Rx#:[id number] Sodium Chloride 0.9% 1, 240 000 ml @ 40 mls/hr IV . Q24H MATT Rx#:[id number] Oral 1280 900 Output: Urine 1700 1100 600 Uretheral (Hernandez) 600 Other: Voiding Method Indwelling Catheter Indwelling Catheter Indwelling Catheter # Bowel Movements 1 ABP, PAP, CO, CI - Last Documented Arterial Blood Pressure 133/75 - Exam GENERAL EXAM: Alert, very pleasant, 54-year-old -[place] male, currently on room air with a pulse ox of 95% comfortable in no apparent distress. HEAD: Normocephalic/atraumatic. EYES: Normal reaction of pupils, equal size. Conjunctiva pink, sclera white. NOSE: Clear with pink turbinates. THROAT: No erythema or exudates. NECK: No masses, no JVD, no thyroid enlargement, no adenopathy. CHEST: No chest wall deformity. Symmetrical expansion. LUNGS: Equal air entry with no crackles, wheeze, rhonchi or dullness. CVS: Regular rate and rhythm, normal S1 and S2, no gallops, no murmurs, no rubs ABDOMEN: Soft, nontender. No hepatosplenomegaly, normal bowel sounds, no guarding or rigidity. EXTREMITIES: No clubbing, mild pretibial edema, no cyanosis, 2+ pulses and upper and lower extremities. MUSCULOSKELETAL: Muscle strength and tone normal. SPINE: No scoliosis or deformity SKIN: No rashes CENTRAL NERVOUS SYSTEM: Alert and oriented -3. No focal deficits, tone is normal in all 4 extremities. PSYCHIATRIC: Alert and oriented -3. Appropriate affect. Intact judgment and insight. - Labs CBC & Chem 7: 03/26/20 06:27 03/26/20 23:33 Labs: Abnormal Lab Results - Last 24 Hours (Table) 03/26/20 03/26/20 03/26/20 Range/Units 16:35 20:45 21:14 Chloride (96-109) mmol/L Carbon Dioxide (21.6-31.8) mmol/L Glucose (70-110) mg/dL POC Glucose (mg/dL) 181 H 66 L 74 L (75-99) mg/dL Calcium (8.7-10.3) mg/dL 03/26/20 03/26/20 Range/Units 22:09 23:33 Chloride 94 L (96-109) mmol/L Carbon Dioxide 39.4 H (21.6-31.8) mmol/L Glucose 129 H (70-110) mg/dL POC Glucose (mg/dL) 136 H (75-99) mg/dL Calcium 7.9 L (8.7-10.3) mg/dL Assessment and Plan Plan: Assessment: #1. Acute hypoxic and hypercapnic respiratory failure due to right lung pneumonia, possibly coming acquired versus aspiration pneumonia related to vomiting, requiring intubation and placement on mechanical ventilator on 03/19/2020, subsequent patient was weaned and extubated on 03/21/2020. Continues to tolerate extubation quite well so far, currently on room air #2. Acute septic shock, multifactorial, related to pneumonia and ESBL Klebsiella urinary tract infection, recovered #3. D-dimer, pulmonary embolism ruled out via CTA chest #4. Lactic acidosis related to acute sepsis and septic shock, improved with IV hydration #5. Neutropenia related to acute sepsis #6. Chronic anemia, unspecified #7. Morbid obesity status post gastric sleeve in December 2019 #8. Atrial fibrillation with rapid ventricular response, on presentation, patient had converted to sinus rhythm on Eliquis #9. Elevated troponin likely related to sepsis, cardiology swallow #10. History of CVA #11. Hypertension #12. History of back surgery and chronic back pain, and left lower abdomen pain pump implantation #13. History of esophageal stricture with multiple dilatations #14. History of nonischemic cardiomyopathy #15. Diabetes mellitus #16. Former nicotine dependence Plan: Continue current medical treatment, antibiotics per ID service recommendations, no acute events overnight, no fever or chills, physical therapy consult, patient is tolerating oral diet, no episodes of dysphagia, vital signs have been stable, patient has resumed his home dose of Cortef. Discharge is pending for [facility] today I performed a history & physical examination of the patient and discussed their management with my nurse practitioner, Shea Terry. I reviewed the nurse practitioner's note and agree with the documented findings and plan of care. Lung sounds are positive for crackles bilateral lungs. The findings and the impression was discussed with the patient. I attest to the documentation by the nurse practitioner. Time with Patient: Less than 30
[2020-03-27 14:46] VITALS: BP 103/67; PULSE 74; TEMP 99
--- NOTE | 2020-03-27 16:30 | PN ---
PROGRESS NOTE DATE OF SERVICE: 03/27/2020 REASON FOR FOLLOWUP: 1. ESBL Klebsiella urinary tract infection, adequately treated. 2. Aspiration pneumonia. 3. Scrotal wound. INTERVAL HISTORY: The patient is currently afebrile. The patient is breathing comfortably. placement. No chest pain or cough. No abdominal pain or pain to the scrotal area. PHYSICAL EXAMINATION: Blood pressure 101/65 with a pulse of 70, temperature 98. He is 95% on room air. General description is a middle-aged male lying in bed in no distress. RESPIRATORY SYSTEM: Unlabored breathing. Clear to auscultation anteriorly. HEART: S1, S2. Regular rate and rhythm. ABDOMEN: Soft. No tenderness. LABS: BUN of 14, creatinine 0.7. Blood and sputum cultures have been negative. DIAGNOSTIC IMPRESSION AND PLAN: 1. Patient with extended-spectrum beta-lactamase Klebsiella urinary tract infection, adequately treated. Repeat UA done 03/26 is negative, off meropenem. 2. Aspiration pneumonia. Sputum has been kenton. Currently on Augmentin; to continue for a week to finish course of therapy. 3. Scrotal wound. Local care with dry Aquacel Silver dressing. MMODL / IJN: [id number] /
== END 2020-03-27 15:48 | DRG 871 ==
LOC: EC 12:08 → 2SICU 15:01 → 4SSUR 03-25 17:14
PROVIDERS: ADMIT Hospitalist; ATTEND Hospitalist
PROC: 5A1945Z Respiratory Ventilation, 24-96 Consecutive Hours (ICD-10-PCS; principal; 2020-03-19)
PROC: 3E043XZ Introduction of Vasopressor into Central Vein, Percutaneous Approach (ICD-10-PCS; principal; 2020-03-19)
PROC: 0BH17EZ Insertion of Endotracheal Airway into Trachea, Via Natural or Artificial Opening (ICD-10-PCS; principal; 2020-03-19)
PROC: 0D9670Z Drainage of Stomach with Drainage Device, Via Natural or Artificial Opening (ICD-10-PCS; principal; 2020-03-19)
PROC: 02HV33Z Insertion of Infusion Device into Superior Vena Cava, Percutaneous Approach (ICD-10-PCS; 2020-03-19)
PROC: 04HY32Z Insertion of Monitoring Device into Lower Artery, Percutaneous Approach (ICD-10-PCS; 2020-03-20)
PROC: 4A133B1 Monitoring of Arterial Pressure, Peripheral, Percutaneous Approach (ICD-10-PCS; 2020-03-20)
PROC: 4A133J1 Monitoring of Arterial Pulse, Peripheral, Percutaneous Approach (ICD-10-PCS; 2020-03-20)
PROC: 0D738ZZ Dilation of Lower Esophagus, Via Natural or Artificial Opening Endoscopic (ICD-10-PCS; 2020-03-24)
PROC: 0D718ZZ Dilation of Upper Esophagus, Via Natural or Artificial Opening Endoscopic (ICD-10-PCS; 2020-03-24)
DX: A41.9 Sepsis, unspecified organism (principal); R65.21 Severe sepsis with septic shock; J96.01 Acute respiratory failure with hypoxia; J96.02 Acute respiratory failure with hypercapnia; J69.0 Pneumonitis due to inhalation of food and vomit; G93.41 Metabolic encephalopathy; J15.6 Pneumonia due to other Gram-negative bacteria; E87.2 Acidosis; I42.8 Other cardiomyopathies; E27.40 Unspecified adrenocortical insufficiency; K22.10 Ulcer of esophagus without bleeding; I50.22 Chronic systolic (congestive) heart failure; Z16.12 Extended spectrum beta lactamase (ESBL) resistance; Z20.828 Contact with and (suspected) exposure to other viral communicable diseases; E11.649 Type 2 diabetes mellitus with hypoglycemia without coma; K22.0 Achalasia of cardia; D70.3 Neutropenia due to infection; D63.8 Anemia in other chronic diseases classified elsewhere; J44.9 Chronic obstructive pulmonary disease, unspecified; I11.0 Hypertensive heart disease with heart failure; E11.42 Type 2 diabetes mellitus with diabetic polyneuropathy; E66.01 Morbid (severe) obesity due to excess calories; E11.65 Type 2 diabetes mellitus with hyperglycemia; I48.0 Paroxysmal atrial fibrillation; N30.91 Cystitis, unspecified with hematuria; M10.9 Gout, unspecified; G89.29 Other chronic pain; M54.9 Dorsalgia, unspecified; F41.9 Anxiety disorder, unspecified; F32.9 Major depressive disorder, single episode, unspecified; E86.0 Dehydration; M19.91 Primary osteoarthritis, unspecified site; K21.0 Gastro-esophageal reflux disease with esophagitis; R29.6 Repeated falls; M25.552 Pain in left hip; M40.292 Other kyphosis, cervical region; E78.5 Hyperlipidemia, unspecified; G47.30 Sleep apnea, unspecified; R79.89 Other specified abnormal findings of blood chemistry; B96.1 Klebsiella pneumoniae [K. pneumoniae] as the cause of diseases classified elsewhere; B96.20 Unspecified Escherichia coli [E. coli] as the cause of diseases classified elsewhere; W19.XXXA Unspecified fall, initial encounter; Z79.899 Other long term (current) drug therapy; Z68.34 Body mass index [BMI] 34.0-34.9, adult; Z86.14 Personal history of Methicillin resistant Staphylococcus aureus infection; Z98.84 Bariatric surgery status; Z98.1 Arthrodesis status; Z96.643 Presence of artificial hip joint, bilateral; Z87.01 Personal history of pneumonia (recurrent); Z96.612 Presence of left artificial shoulder joint; Z98.890 Other specified postprocedural states; Z87.891 Personal history of nicotine dependence; Z86.19 Personal history of other infectious and parasitic diseases; Z86.73 Personal history of transient ischemic attack (TIA), and cerebral infarction without residual deficits; Z87.19 Personal history of other diseases of the digestive system; Z82.49 Family history of ischemic heart disease and other diseases of the circulatory system; Z80.9 Family history of malignant neoplasm, unspecified
CPT/HCPCS: 36415; 36600; 43249; 70450; 71045; 71046; 71275; 72125; 80048; 80053; 81001; 81003; 82550; 82728; 82805; 82947; 83036; 83605; 83615; 83735; 83880; 84132; 84145; 84439; 84443; 84484; 85025; 85027; 85379; 85610; 85652; 85730; 86140; 87040; 87070; 87077; 87086; 87186; 87205; 87502; 93005; 93306; 94002; 94003; 94640; 96365; 96366; 96375; 96376; 99291

== ENCOUNTER 2020-04-28 11:03 | Inpatient (IN) | payer MEDICARE, OTHER ==
[2020-04-28] MEDS ORDERED: IPRATROPIUM-ALBUTEROL 3 ML NEB INHALATION STA (11:56)
[2020-04-28] MEDS ORDERED: ACETAMINOPHEN TAB 500 MG TAB PO STA (11:58)
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
[2020-04-28 12:57] LABS: Anisocytosis Slight; Basophils % (A) 0 %; Eosinophils # (A) 0.1 k/uL (0-0.7); Eosinophils % (A) 2 %; HCT 32.7 % (39.0-53.0); HGB 9.6 gm/dL (13.0-17.5); Hypochromasia Marked; Lymphocytes # (A) 0.5 k/uL (1.0-4.8); Lymphocytes % (A) 7 %; MCH 22.9 pg (25.0-35.0); MCHC 29.2 g/dL (31.0-37.0); MCV 78.5 fL (80.0-100.0); Mean Platelet Volume 9.3; Microcytosis Slight; Monocytes # (A) 0.1 k/uL (0-1.0); Monocytes % (A) 2 %; Neutrophils % (A) 89 %; Platelet Count 138 k/uL (150-450); Poikilocytosis Moderate; RBC 4.17 m/uL (4.30-5.90); RDW 18.3 % (11.5-15.5); WBC 6.7 k/uL (3.8-10.6)
--- NOTE | 2020-04-28 13:07 | XR ---
EXAMINATION TYPE: XR chest 2V DATE OF EXAM: 04/28/2020 COMPARISON: 03/26/2020 INDICATION: Difficulty breathing TECHNIQUE: Frontal and lateral views of the chest are obtained. FINDINGS: The heart size is normal. The pulmonary vasculature is normal. Mild left lower lobe infiltrate is present.. IMPRESSION: 1. Left lower lobe infiltrate. Correlate for pneumonia. Follow-up is recommended.
[2020-04-28] MEDS ORDERED: PIPERACILLIN-TAZOBACTAM 3.375 GM in SODIUM CHLORIDE 0.9% 100 ML IVPB STA (13:08)
[2020-04-28 13:09] LABS: ALT 13 U/L (4-49); AST 35 U/L (17-59); African American GFR (CKD) >90 (>60 ml/min/1.73 sqM); Albumin 3.2 g/dL (3.5-5.0); Alkaline Phosphatase 103 U/L (38-126); Anion Gap 8 mmol/L; Blood Urea Nitrogen 22 mg/dL (9-20); Calcium 8.3 mg/dL (8.4-10.2); Carbon Dioxide 28 mmol/L (22-30); Chloride 103 mmol/L (98-107); Glucose 81 mg/dL (74-99); Magnesium 1.6 mg/dL (1.6-2.3); Non-African American GFR(CKD) 90 (>60 ml/min/1.73 sqM); Potassium 4.4 mmol/L (3.5-5.1); Sodium 139 mmol/L (137-145); Total Bilirubin 1.1 mg/dL (0.2-1.3); Total Protein 7.2 g/dL (6.3-8.2)
[2020-04-28] MEDS ORDERED: SODIUM CHLORIDE 0.9% 1,000 ML IV ONE (13:17)
[2020-04-28] MEDS ORDERED: SODIUM CHLORIDE 0.9% 500 ML 500 ML IV ONE (13:17)
[2020-04-28 13:25] LABS: INR 1.3 (<1.2); Partial Thromboplastin Time 23.9 sec (22.0-30.0); Prothrombin Time 13.1 sec (9.0-12.0)
[2020-04-28] MEDS ORDERED: DEXAMETHASONE SOD PHOSPHATE 10 MG/ML 1 ML VIAL IV STA (13:47)
[2020-04-28] MEDS ORDERED: ASPIRIN 81 MG PO STA (13:47)
[2020-04-28] MEDS ORDERED: AZITHROMYCIN 500 MG in SODIUM CHLORIDE 0.9% 250 ML IVPB STA (13:51)
[2020-04-28] MEDS ORDERED: PNEUMONIA PROTOCOL UTILIZED 1 EACH MISC PO PRN (13:51)
[2020-04-28] MEDS ORDERED: NITROGLYCERIN SL TABS 0.4 MG TAB SUBLINGUAL PRN (13:51)
[2020-04-28] MEDS: SODIUM CHLORIDE 0.9% 1,000 ML IV SCH ×2 (14:59→23:06)
[2020-04-28] MEDS ORDERED: ACETAMINOPHEN TAB 325 MG TAB PO PRN (16:09)
[2020-04-28] MEDS ORDERED: CYCLOBENZAPRINE 10 MG TAB PO PRN (16:09)
[2020-04-28] MEDS: IPRATROPIUM-ALBUTEROL 3 ML NEB INHALATION SCH ×2 (16:45→19:53)
--- NOTE | 2020-04-28 17:02 | P.HPIM ---
History of Present Illness patient is a pleasant 65-year-old male came in with compensative fever which started yesterday along with cough congestion and shortness of breath patient is unable to bring up any sputum. Patient denied any smoking history does have bilateral rhonchi. Found to have possible pneumonia in the left lower lung vital. Patient was recently treated for pneumonia patient had recent visual stricture and believed to have aspiration pneumonia but that infiltrate was on the right side back then. patient looks like was treated with meropenem as he was believed to haveUTI as well at that time which was ESBL E. coli. After course of meropenem patient was transitioned to Augmentin one was discharged home. Patient also had a scrotal wound at that time which was not the source of infection.Covid 19 PCR was ordered as well.patient denied any chest paindoes have minimally elevated troponins 2 sets sulfate at least at the stable level can be related to sepsis, cardiology was consulted because of this reason. Review of Systems REVIEW OF SYSTEMS: CONSTITUTIONAL: No fever, no malaise, no fatigue. HEENT: No recent visual problems or hearing problems. Denied any sore throat. CARDIOVASCULAR: No chest pain, orthopnea, PND, no palpitations, no syncope. PULMONARY: no hemoptysis. GASTROINTESTINAL: No diarrhea, no nausea, no vomiting, no abdominal pain. NEUROLOGICAL: No headaches, no weakness, no numbness. HEMATOLOGICAL: Denies any bleeding or petechiae. GENITOURINARY: Denies any burning micturition, frequency, or urgency. MUSCULOSKELETAL/RHEUMATOLOGICAL: Denies any joint pain, swelling, or any muscle pain. ENDOCRINE: Denies any polyuria or polydipsia. The rest of the 14-point review of systems is negative. 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 BILATERAL KNEE arthroscopy, BILATERAL HIP replacement, LEFT SHOULDER replacement, LEFT ACHILES TENDON SX., RIGHT BIG TOE took piece out, echocardiolgram, spinal fusion, EGD with dilation., STATES HX OF PNEUMONIA WITH LUNG SURGERY., REPAIR OF HIATAL HERNIA & LYSIS OF ADHESIONS Past Anesthesia/Blood Transfusion Reactions: No Reported Reaction Past Psychological History: Anxiety, Depression Smoking Status: Former smoker Past Alcohol Use History: None Reported Past Drug Use History: None Reported - Past Family History Father Family Medical History: Cancer Additional Family Medical History / Comment(s): lung Mother Family Medical History: Coronary Artery Disease (CAD), Hypertension Medications and Allergies Home Medications Medication Instructions Recorded Confirmed Type Allopurinol [Zyloprim] 300 mg PO DAILY 06/04/16 04/28/20 History Escitalopram [Lexapro] 10 mg PO DAILY 06/04/16 04/28/20 History Lacosamide [Vimpat] 50 mg PO BID 03/25/18 04/28/20 History Omeprazole 40 mg PO BID #60 cap 07/06/19 04/28/20 Rx oxyCODONE-APAP 7.5-325MG [Percocet 1 tab PO DAILY PRN #10 tab 12/15/19 04/28/20 Rx 7.5-325 mg] lisinopriL [Zestril] 2.5 mg PO DAILY 01/08/20 04/28/20 History Sildenafil Citrate 100 mg PO DAILY PRN 03/09/20 04/28/20 History Acetaminophen Tab [Tylenol] 650 mg PO Q4HR PRN tab 03/27/20 04/28/20 Rx Apixaban [Eliquis] 5 mg PO BID tab 03/27/20 04/28/20 Rx Cyclobenzaprine [Flexeril] 10 mg PO BID PRN #0 03/27/20 04/28/20 Rx Pregabalin [Lyrica] 300 mg PO BID #6 cap 03/27/20 04/28/20 Rx Ergocalciferol (Vitamin D2) 50,000 unit PO Q7D 04/28/20 04/28/20 History [Drisdol] Ibuprofen 800 mg PO TID PRN 04/28/20 04/28/20 History Metoprolol Tartrate [Lopressor] 12.5 mg PO BID 04/28/20 04/28/20 History Simvastatin [Zocor] 40 mg PO DAILY 04/28/20 04/28/20 History Zolpidem Tartrate [Ambien] 10 mg PO HS 04/28/20 04/28/20 History Allergies Allergy/AdvReac Type Severity Reaction Status Date / Time No Known Allergies Allergy Verified 04/28/20 11:36 Physical Exam Vitals: Vital Signs Temp Pulse Resp BP Pulse Ox 04/28/20 16:53 76 04/28/20 16:46 78 04/28/20 15:00 90 18 102/61 95 04/28/20 14:25 100 04/28/20 14:09 96 04/28/20 14:03 100.7 F H 93 18 101/60 95 04/28/20 13:20 105 H 16 91/47 92 L 04/28/20 12:04 18 04/28/20 11:32 101.5 F H 115 H 22 82/45 89 L Intake and Output 04/28/20 04/28/20 04/28/20 06:59 14:59 22:59 Other: Weight 113.398 kg PHYSICAL EXAMINATION: GENERAL: The patient is alert and oriented x3, not in any acute distress. Well developed, well nourished. HEENT: Pupils are round and equally reacting to light. EOMI. No scleral icterus. No conjunctival pallor. Normocephalic, atraumatic. No pharyngeal erythema. No thyromegaly. CARDIOVASCULAR: S1 and S2 present. No murmurs, rubs, or gallops. PULMONARY: mild bilateral rhonchi fairly good air entry bilateral lung vital no wheezing was appreciated ABDOMEN: Soft, nontender, nondistended, normoactive bowel sounds. No palpable organomegaly. MUSCULOSKELETAL: No joint swelling or deformity. EXTREMITIES: No cyanosis, clubbing, or pedal edema. NEUROLOGICAL: Gross neurological examination did not reveal any focal deficits. SKIN: No rashes. Results CBC & Chem 7: 04/28/20 12:28 04/28/20 12:28 Labs: Abnormal Lab Results - Last 24 Hours (Table) 1104/28/20 04/28/20 Range/Units 12:28 12:28 12:28 RBC 4.17 L (4.30-5.90) m/uL Hgb 9.6 L (13.0-17.5) gm/dL Hct 32.7 L (39.0-53.0) % MCV 78.5 L (80.0-100.0) fL MCH 22.9 L (25.0-35.0) pg MCHC 29.2 L (31.0-37.0) g/dL RDW 18.3 H (11.5-15.5) % Plt Count 138 L (150-450) k/uL Lymphocytes # 0.5 L (1.0-4.8) k/uL PT 13.1 H (9.0-12.0) sec INR 1.3 H (<1.2) BUN 22 H (9-20) mg/dL Calcium 8.3 L (8.4-10.2) mg/dL Troponin I (0.000-0.034) ng/mL Albumin 3.2 L (3.5-5.0) g/dL 04/28/20 04/28/20 Range/Units 12:28 15:07 RBC (4.30-5.90) m/uL Hgb (13.0-17.5) gm/dL Hct (39.0-53.0) % MCV (80.0-100.0) fL MCH (25.0-35.0) pg MCHC (31.0-37.0) g/dL RDW (11.5-15.5) % Plt Count (150-450) k/uL Lymphocytes # (1.0-4.8) k/uL PT (9.0-12.0) sec INR (<1.2) BUN (9-20) mg/dL Calcium (8.4-10.2) mg/dL Troponin I 0.216 H* 0.194 H* (0.000-0.034) ng/mL Albumin (3.5-5.0) g/dL Assessment and Plan Plan: -sepsis: Most probably secondary to left lower lobe pneumonia patient was started on Zosyn infectious disease and pulmonary will be consulted. Covid 9 PCR was ordered as well. Patient was recently treated for septic shock secondary to aspiration pneumonia and then UTI.sputum cultures were ordered. -Mildly elevated troponin probably secondary to sepsis cardiology was consulted will repeat one more set of troponin patient's troponins are minimally elevated and were stable -Recent esophageal dilatation procedure for recurrent esophageal stricture -Hypertension -History of gout not in gout flareup at this time -Paroxysmal atrial fibrillation presently rate controlled, patient is presently on Eliquis and metoprolol which will be continued. -hypertension -Hyperlipidemia
[2020-04-28] MEDS: PANTOPRAZOLE 40 MG TABLET PO SCH (17:43)
--- NOTE | 2020-04-28 19:00 | ECHOF ---
Referral Reason:elevated trop MEASUREMENTS -------- HEIGHT: 193.0 cm WEIGHT: 113.4 kg BP: 102/61 RAP: 5.00 mmHg RVSP: 30.01 mmHg FINDINGS -------- Sinus rhythm. Limited Study Overall left ventricular systolic function is normal with, an EF between 55 - 60 %. Interatrial and interventricular septum intact. The aortic valve is trileaflet and appears structurally normal. The mitral valve is normal. Mild mitral annular calcification present. Mild tricuspid regurgitation present. Right ventricular systolic pressure is normal at < 35 mmHg. There is no pericardial effusion. CONCLUSIONS -------- 1. Limited Study 2. Overall left ventricular systolic function is normal with, an EF between 55 - 60 %. 3. Mild tricuspid regurgitation present. 4. There is no pericardial effusion. VACCINE MANAGER: Lucy Cordova RDCS
[2020-04-28 20:20] LABS: Appearance,Urine Cloudy (Clear); Bacteria,Urine Rare /hpf; Bilirubin,Urine Negative (Negative); Blood,Urine Moderate (Negative); Color,Urine Yellow; Glucose,Urine (UA) Negative (Negative); Hyaline Casts,Urine 3 /lpf (0-2); Ketones,Urine 1+ (Negative); Leukocyte Esterase,Urine Large (Negative); Mucus,Urine Rare /hpf; Nitrite,Urine Positive (Negative); Protein,Urine Trace (Negative); RBC,Urine 79 /hpf (0-5); Specific Gravity,Urine 1.019 (1.001-1.035); Squamous Epithelial Cell,Urine 1 /hpf (0-4); WBC,Urine 72 /hpf (0-5)
[2020-04-28] MEDS: APIXABAN 5 MG TAB PO SCH (21:06)
[2020-04-28] MEDS: LACOSAMIDE 50 MG TABLET PO SCH (21:06)
[2020-04-28] MEDS: PREGABALIN 100 MG CAP PO SCH (21:06)
[2020-04-28] MEDS: METOPROLOL TARTRATE 12.5 MG TAB PO SCH (21:06)
[2020-04-28] MEDS: PIPERACILLIN-TAZOBACTAM 3.375 GM in SODIUM CHLORIDE 0.9% 100 ML IVPB SCH (23:05)
[2020-04-28] MEDS: ZOLPIDEM 10 MG TAB PO PRN (23:13)
[2020-04-29] MEDS: SODIUM CHLORIDE 0.9% 1,000 ML IV SCH ×2 (06:25→14:01)
[2020-04-29] MEDS: PANTOPRAZOLE 40 MG TABLET PO SCH ×2 (06:26→17:17)
[2020-04-29] MEDS: IPRATROPIUM-ALBUTEROL 3 ML NEB INHALATION SCH ×4 (08:36→20:01)
[2020-04-29] MEDS: METOPROLOL TARTRATE 12.5 MG TAB PO SCH ×2 (09:11→20:18)
[2020-04-29] MEDS: APIXABAN 5 MG TAB PO SCH ×2 (09:11→20:18)
[2020-04-29] MEDS: ASPIRIN 325 MG TAB PO SCH (09:11)
[2020-04-29] MEDS: ESCITALOPRAM 10 MG TAB PO SCH (09:11)
[2020-04-29] MEDS: allopurinoL 300 MG TAB PO SCH (09:11)
[2020-04-29] MEDS: ATORVASTATIN 20 MG TAB PO SCH (09:11)
[2020-04-29] MEDS: PREGABALIN 100 MG CAP PO SCH ×2 (09:11→20:18)
[2020-04-29] MEDS: LACOSAMIDE 50 MG TABLET PO SCH ×2 (09:11→20:17)
[2020-04-29] MEDS: PIPERACILLIN-TAZOBACTAM 3.375 GM in SODIUM CHLORIDE 0.9% 100 ML IVPB SCH ×3 (09:12→23:01)
--- NOTE | 2020-04-29 09:48 | XR ---
EXAMINATION TYPE: XR chest 1V DATE OF EXAM: 04/29/2020 CLINICAL HISTORY: pneumonia. TECHNIQUE: Portable frontal view of the chest. COMPARISON: 04/28/2020 chest radiograph FINDINGS: The cardiomediastinal silhouette is within normal limits for size. Pulmonary vasculature i s normal. There is improved aeration of the left lung base versus 04/28/2020. No pleural effusion or p neumothorax seen. IMPRESSION: Improved aeration of the left lung base versus 04/28/2020.
--- NOTE | 2020-04-29 14:16 | P.CNPUL ---
History of Present Illness Consult date: 04/29/20 Requesting physician: Tierra Castillo Reason for consult: pneumonia Chief complaint: Shortness of breath and cough History of present illness: This is a 55-year-old male with known history of multiple medical problems, patient is known to have chronic atrial fibrillation, hypertension, hiatal hernia, chronic dysphagia with previous EGD and agitation. Chronic esophageal stricture/stenosis. History of gastric sleeve surgery in December of 2019 history of systolic congestive heart failure. History of pneumonia and sepsis, patient was seen by our service almost a month ago, he presented at that time with acute hypoxic and hypercapnic respiratory failure secondary to right lung pneumonia re quiring intubation and mechanical ventilation. His other medical problems included septic shock, urinary tract infection, neutropenia related to sepsis, atrial fibrillation with RVR, and known history of nonischemic cardiomyopathy and LV dysfunction. Patient was discharged on 03/28/20, EGD on that admission showed mild tightness of the lower esophageal sphincter suspicious for esophageal achalasia. Patient was felt to be a poor candidate for surgical endoscopic intervention. Patient was seen in the ER on 03/28/20, mostly with multiple complaints including cough fever or shortness of breath congestion, and his symptoms have been going on for the last 3 days. Chest x-ray on admission questioned a left lower lobe infiltrate, patient was admitted placed on antibiotics, and follow-up chest x-ray this morning actually showed significant improvement. Patient is feeling a bit better, breathing a lot easier, he had a T-max of 101.5 on admission. Presently his temp is 97.9. WBC count today is 6.7 hemoglobin is 9.6. Electrolytes and renal profile are normal. He has what seems to be a UTI. Based on the urinalysis. Covid 19 PCR is pending. Patient was seen by the hospitalist, started empirically on antibiotics, and I was asked to see him on consultation. Again his chest x-ray is already showing improvement today compared to the admission chest x-ray. Review of Systems CONSTITUTIONAL: Negative HEENT: Negative CARDIOVASCULAR: Negative PULMONARY: As noted in HPI. GASTROINTESTINAL: As noted in HPI. NEUROLOGICAL: Negative HEMATOLOGICAL: Negative GENITOURINARY: Negative MUSCULOSKELETAL/RHEUMATOLOGICAL: Negative ENDOCRINE: Negative Psychiatric: Negative Skin: Negative Past Medical History Past Medical History: Atrial Fibrillation, COPD, CVA/TIA, GERD/Reflux, Hyperlipidemia, Hypertension, Osteoarthritis (OA), Pneumonia, Seizure Disorder, Sleep Apnea/CPAP/BIPAP Additional Past Medical History / Comment(s): hiatal hernia, gout, neuropathy marta legs and feet- states feet are numb, some numbness in legs & tingling in hands., chronic back pain., constipation., dysphagia-hx of EGD with dilation, chronic esophogeal stenosis. Last October 2019 History of Any Multi-Drug Resistant Organisms: ESBL, MRSA Date of last positivie culture/infection: approx 10 yrs ago 03/19/20 ESBL MDRO Source:: left hip ESBL URINE Past Surgical History: Back Surgery, Bariatric Surgery, Bowel Resection, Heart Catheterization, Joint Replacement, Orthopedic Surgery Additional Past Surgical History / Comment(s): PAIN PUMP IMPLANTED 07/17/18, HX GASTRIC SLEEVE AND . BILATERAL KNEE arthroscopy, BILATERAL HIP replacement, LEFT SHOULDER replacement, LEFT ACHILES TENDON SX., RIGHT BIG TOE took piece out, echocardiolgram, spinal fusion, EGD with dilation., STATES HX OF PNEUMONIA WITH LUNG SURGERY., REPAIR OF HIATAL HERNIA & LYSIS OF ADHESIONS Past Anesthesia/Blood Transfusion Reactions: No Reported Reaction Past Psychological History: Anxiety, Depression Smoking Status: Former smoker Past Alcohol Use History: None Reported Additional Past Alcohol Use History / Comment(s): quit smoking 2017, smoked since age 21, 1 PPD Past Drug Use History: None Reported - Past Family History Father Family Medical History: Cancer Additional Family Medical History / Comment(s): lung Mother Family Medical History: Coronary Artery Disease (CAD), Hypertension Medications and Allergies Home Medications Medication Instructions Recorded Confirmed Type Allopurinol [Zyloprim] 300 mg PO DAILY 06/04/16 04/28/20 History Escitalopram [Lexapro] 10 mg PO DAILY 06/04/16 04/28/20 History Lacosamide [Vimpat] 50 mg PO BID 03/25/18 04/28/20 History Omeprazole 40 mg PO BID #60 cap 07/06/19 04/28/20 Rx oxyCODONE-APAP 7.5-325MG [Percocet 1 tab PO DAILY PRN #10 tab 12/15/19 04/28/20 Rx 7.5-325 mg] lisinopriL [Zestril] 2.5 mg PO DAILY 01/08/20 04/28/20 History Sildenafil Citrate 100 mg PO DAILY PRN 03/09/20 04/28/20 History Acetaminophen Tab [Tylenol] 650 mg PO Q4HR PRN tab 03/27/20 04/28/20 Rx Apixaban [Eliquis] 5 mg PO BID tab 03/27/20 04/28/20 Rx Cyclobenzaprine [Flexeril] 10 mg PO BID PRN #0 03/27/20 04/28/20 Rx Pregabalin [Lyrica] 300 mg PO BID #6 cap 03/27/20 04/28/20 Rx Ergocalciferol (Vitamin D2) 50,000 unit PO Q7D 04/28/20 04/28/20 History [Drisdol] Ibuprofen 800 mg PO TID PRN 04/28/20 04/28/20 History Metoprolol Tartrate [Lopressor] 12.5 mg PO BID 04/28/20 04/28/20 History Simvastatin [Zocor] 40 mg PO DAILY 04/28/20 04/28/20 History Zolpidem Tartrate [Ambien] 10 mg PO HS 04/28/20 04/28/20 History Allergies Allergy/AdvReac Type Severity Reaction Status Date / Time No Known Allergies Allergy Verified 04/28/20 11:36 Physical Exam Vitals: Vital Signs Temp Pulse Pulse Resp BP BP BP 04/29/20 12:10 80 04/29/20 12:00 66 20 100/70 04/29/20 11:57 80 04/29/20 08:53 84 04/29/20 08:38 80 04/29/20 08:20 97.9 F 78 18 92/63 04/29/20 08:00 78 04/29/20 03:00 98.7 F 66 20 107/69 04/28/20 23:00 97.7 F 72 20 92/64 04/28/20 20:30 98.4 F 88 18 130/83 04/28/20 20:05 82 04/28/20 20:02 99 F 78 18 119/74 04/28/20 20:00 20 04/28/20 19:53 80 04/28/20 17:00 77 18 101/61 04/28/20 16:53 76 04/28/20 16:46 78 04/28/20 16:00 76 11/06/20 15:00 90 18 102/61 11/06/20 14:25 100 04/28/20 14:09 96 04/28/20 14:03 100.7 F H 93 18 101/60 Pulse Ox 04/29/20 12:10 04/29/20 12:00 97 04/29/20 11:57 04/29/20 08:53 04/29/20 08:38 04/29/20 08:20 95 04/29/20 08:00 04/29/20 03:00 96 04/28/20 23:00 93 L 04/28/20 20:30 98 04/28/20 20:05 04/28/20 20:02 97 04/28/20 20:00 04/28/20 19:53 04/28/20 17:00 95 04/28/20 16:53 04/28/20 16:46 04/28/20 16:00 04/28/20 15:00 95 04/28/20 14:25 04/28/20 14:09 04/28/20 14:03 95 Intake and Output 04/28/20 04/29/20 04/29/20 22:59 06:59 14:59 Intake Total 340 Output Total 425 Balance -85 Intake: Intake, IV Titration 100 Amount Piperacillin-Tazobactam 3 100 .375 gm In Sodium Chloride 0.9% 100 ml @ 25 mls/hr IVPB Q8HR [facility] Rx# :[id number] Oral 240 Output: Urine 425 Other: # Voids 2 2 Weight 113.398 kg 119 kg GENERAL EXAM: Alert, very pleasant, 54-year-old -[place] male, in no distress. HEAD: Normocephalic/atraumatic. EENT: PERRLA, EOMI, neck discomfort chronic masses, no JVD. CHEST: No chest wall deformity. Symmetrical expansion. LUNGS: Equal air entry with no crackles, wheeze, rhonchi or dullness. CVS: Regular rate and rhythm, normal S1 and S2, no gallops, no murmurs, no rubs ABDOMEN: Soft, nontender. No hepatosplenomegaly, normal bowel sounds, no guarding or rigidity. EXTREMITIES: No clubbing, trace of bipedal edema. MUSCULOSKELETAL: Muscle strength and tone normal. SPINE: No scoliosis or deformity SKIN: No rashes CENTRAL NERVOUS SYSTEM: Alert and oriented 3, no gross focal deficits. PSYCHIATRIC: Normal mood, affect and normal mental status examination Results - Laboratory Findings CBC and BMP: 04/28/20 12:28 04/28/20 12:28 PT/INR, D-dimer PT 13.1 sec (9.0-12.0) H 04/28/20 12:28 INR 1.3 (<1.2) H 04/28/20 12:28 Abnormal lab findings: Abnormal Labs 04/28/20 04/28/20 04/28/20 12:28 12:28 12:28 RBC 4.17 L Hgb 9.6 L Hct 32.7 L MCV 78.5 L MCH 22.9 L MCHC 29.2 L RDW 18.3 H Plt Count 138 L Lymphocytes # 0.5 L PT 13.1 H INR 1.3 H BUN 22 H Calcium 8.3 L Troponin I Albumin 3.2 L Urine Protein Urine Ketones Urine Blood Ur Leukocyte Esterase Urine RBC Urine WBC Urine Bacteria Hyaline Casts Urine Mucus 04/28/20 04/28/20 04/28/20 12:28 15:07 18:55 RBC Hgb Hct MCV MCH MCHC RDW Plt Count Lymphocytes # PT INR BUN Calcium Troponin I 0.216 H* 0.194 H* 0.131 H* Albumin Urine Protein Urine Ketones Urine Blood Ur Leukocyte Esterase Urine RBC Urine WBC Urine Bacteria Hyaline Casts Urine Mucus 04/28/20 19:49 RBC Hgb Hct MCV MCH MCHC RDW Plt Count Lymphocytes # PT INR BUN Calcium Troponin I Albumin Urine Protein Trace H Urine Ketones 1+ H Urine Blood Moderate H Ur Leukocyte Esterase Large H Urine RBC 79 H Urine WBC 72 H Urine Bacteria Rare H Hyaline Casts 3 H Urine Mucus Rare H - Diagnostic Findings Chest x-ray: image reviewed (Chest x-ray as noted in HPI.) Assessment and Plan Assessment: Impression: Acute healthcare acquired pneumonia Possible aspiration pneumonia History of esophageal stricture requiring dilatation. Benign essential hypertension. Paroxysmal atrial fibrillation. Dyslipidemia. History of esophageal achalasia. History of CVA. Paroxysmal atrial fibrillation. History of gastric sleeve surgery in December of 2019. Morbid obesity. History of nonischemic cardiomyopathy and LV dysfunction. Acute urinary tract infection. Recommendation: Continue present course of antibiotics. Patient is presently on Zosyn. Await [place] virus PCR. Continue bronchodilators. Resume cardiac meds We'll continue to follow. Time with Patient: Greater than 30
--- NOTE | 2020-04-29 14:33 | P.PN ---
Subjective Patient is a pleasant 55-year-old male was admitted for sepsis. Patient was initially believed to have right middle lobe pneumonia from the initial chest x- ray all the repeat chest x-ray showed significant improvement. Patient probably doesn't have pneumonia. Patient does have significantly abnormal urine with the gram negative bacteremia. Possible source of infection and it is U urinary tract infection patient is was less than Zosyn which will be continued and infectious disease will be consulted. Patient although is requiring a small a mount of oxygen patient will be closely monitored. Covid 19 PCR is still pending. Repeat blood cultures for today and tomorrow will be obtained. Patient although is comparing of greenish sputum may be bronchitis, sputum cultures are pending Constitutional: Denied any fatigue denied any fever. Cardio vascular: denied any chest pain, palpitations Gastrointestinal denied any nausea vomiting Pulmonary: Denied any shortness of breath cough Neurologic denied any new focal deficits All inpatient medications were reviewed and appropriate changes in these medications as dictated in the interval history and assessment and plan. Objective - Vital Signs Vital signs: Vital Signs Temp 97.9 F 04/29/20 08:20 Pulse 80 04/29/20 12:10 Resp 20 04/29/20 12:00 BP 100/70 04/29/20 12:00 Pulse Ox 97 04/29/20 12:00 Intake & Output 04/28/20 04/29/20 04/29/20 18:59 06:59 18:59 Intake Total 340 Output Total 425 Balance -85 Weight 113.398 kg 119 kg Intake: Intake, IV Titration 100 Amount Piperacillin-Tazobactam 3 100 .375 gm In Sodium Chloride 0.9% 100 ml @ 25 mls/hr IVPB Q8HR [facility] Rx# :[id number] Oral 240 Output: Urine 425 Other: # Voids 2 - Exam PHYSICAL EXAMINATION: GENERAL: The patient is alert and oriented x3, not in any acute distress. Well developed, well nourished. HEENT: Pupils are round and equally reacting to light. EOMI. No scleral icterus. No conjunctival pallor. Normocephalic, atraumatic. No pharyngeal erythema. No thyromegaly. CARDIOVASCULAR: S1 and S2 present. No murmurs, rubs, or gallops. PULMONARY: Chest is clear to auscultation, no wheezing or crackles. ABDOMEN: Soft, nontender, nondistended, normoactive bowel sounds. No palpable organomegaly. MUSCULOSKELETAL: No joint swelling or deformity. EXTREMITIES: No cyanosis, clubbing, or pedal edema. NEUROLOGICAL: Gross neurological examination did not reveal any focal deficits. SKIN: No rashes. - Labs CBC & Chem 7: 04/28/20 12:28 04/28/20 12:28 Labs: Abnormal Lab Results - Last 24 Hours (Table) 04/28/20 04/28/20 04/28/20 Range/Units 15:07 18:55 19:49 Troponin I 0.194 H* 0.131 H* (0.000-0.034) ng/mL Urine Protein Trace H (Negative) Urine Ketones 1+ H (Negative) Urine Blood Moderate H (Negative) Ur Leukocyte Esterase Large H (Negative) Urine RBC 79 H (0-5) /hpf Urine WBC 72 H (0-5) /hpf Urine Bacteria Rare H (None) /hpf Hyaline Casts 3 H (0-2) /lpf Urine Mucus Rare H (None) /hpf Microbiology - Last 24 Hours (Table) 04/28/20 12:28 Blood Culture Gram Stain - Preliminary Blood 04/29/20 08:53 Sputum Culture - Preliminary Sputum 04/28/20 19:49 Urine Culture - Preliminary Urine,Voided 04/28/20 12:28 Blood Culture - Final Blood Assessment and Plan Plan: -sepsis: Patient has gram-negative bacteremia Most probably secondary to urinary tract infection, possibility of pneumonia is low. Patient may have bronchitis. patient he's on Zosyn infectious disease and pulmonary will be consulted. Covid 9 PCR is pending. Patient was recently treated for septic shock secondary to aspiration pneumonia and then UTI.sputum cultures were ordered. -Mildly elevated troponin probably secondary to sepsis cardiology was consulted will repeat one more set of troponin patient's troponins are minimally elevated and were stable -Recent esophageal dilatation procedure for recurrent esophageal stricture -Hypertension -History of gout not in gout flareup at this time -Paroxysmal atrial fibrillation presently rate controlled, patient is presently on Eliquis and metoprolol which will be continued. -hypertension -Hyperlipidemia
[2020-04-29] MEDS: IBUPROFEN 800 MG TAB PO PRN (17:17)
[2020-04-29] MEDS: oxyCODONE-APAP 7.5-325MG 1 EACH TAB PO PRN (20:17)
--- NOTE | 2020-04-29 22:28 | P.CONS ---
History of Present Illness - Reason for Consult Consult date: 04/29/20 Pneumonia and bacteremia Requesting physician: Tierra Castillo - Chief Complaint Shortness of breath and cough x few days - History of Present Illness Patient is a 55-year-old -[place] male recently treated at this facility for ESBL Klebsiella urinary tract infection and aspiration pneumonia, patient who presented back to the for evaluation of fever cough condition and shortness of breath has been getting worse for the last few days patient had denies having any headache or URI symptoms, he is complaining of cough which is moderate in intensity and is bringing up some yellow sputum, hemoptysis denies having any pleuritic chest pain no choking" no nausea no vomiting no abdominal pain no diarrhea and denies having any urinary symptoms on arrival to the ER, the patient did have a fever of 101F and he was tachycardic patient did have a normal white count but it had lymphopenia liver enzymes are normal he also have elevated troponin and NT proBNP, urine was positive sputum obtained which is currently pending blood cultures obtained came back positive for gram-negative bacilli, patient did have a chest x-ray with evidence of left lower lobe pneumonia patient is currently being treated with the Zosyn and infectious disease was consulted for further management of antibiotic therapy Review of Systems Positive point has been mentioned in the HPI rest of the systems are negative Past Medical History Past Medical History: Atrial Fibrillation, COPD, CVA/TIA, GERD/Reflux, Hyperlipi demia, Hypertension, Osteoarthritis (OA), Pneumonia, Seizure Disorder, Sleep Apnea/CPAP/BIPAP Additional Past Medical History / Comment(s): hiatal hernia, gout, neuropathy marta legs and feet- states feet are numb, some numbness in legs & tingling in hands., chronic back pain., constipation., dysphagia-hx of EGD with dilation, chronic esophogeal stenosis. Last October 2019 History of Any Multi-Drug Resistant Organisms: ESBL, MRSA Year Discovered:: approx 10 yrs ago 03/19/20 ESBL MDRO Source:: left hip ESBL URINE Past Surgical History: Back Surgery, Bariatric Surgery, Bowel Resection, Heart Catheterization, Joint Replacement, Orthopedic Surgery Additional Past Surgical History / Comment(s): PAIN PUMP IMPLANTED 07/17/18, HX GASTRIC SLEEVE AND . BILATERAL KNEE arthroscopy, BILATERAL HIP replacement, LEFT SHOULDER replacement, LEFT ACHILES TENDON SX., RIGHT BIG TOE took piece out, echocardiolgram, spinal fusion, EGD with dilation., STATES HX OF PNEUMONIA WITH LUNG SURGERY., REPAIR OF HIATAL HERNIA & LYSIS OF ADHESIONS Past Anesthesia/Blood Transfusion Reactions: No Reported Reaction Past Psychological History: Anxiety, Depression Smoking Status: Former smoker Past Alcohol Use History: None Reported Additional Past Alcohol Use History / Comment(s): quit smoking 2018, smoked since age 21, 1 PPD Past Drug Use History: None Reported - Past Family History Father Family Medical History: Cancer Additional Family Medical History / Comment(s): lung Mother Family Medical History: Coronary Artery Disease (CAD), Hypertension Medications and Allergies Home Medications Medication Instructions Recorded Confirmed Type Allopurinol [Zyloprim] 300 mg PO DAILY 06/04/16 04/28/20 History Escitalopram [Lexapro] 10 mg PO DAILY 06/04/16 04/28/20 History Lacosamide [Vimpat] 50 mg PO BID 03/25/18 04/28/20 History Omeprazole 40 mg PO BID #60 cap 07/06/19 04/28/20 Rx oxyCODONE-APAP 7.5-325MG [Percocet 1 tab PO DAILY PRN #10 tab 12/15/19 04/28/20 Rx 7.5-325 mg] lisinopriL [Zestril] 2.5 mg PO DAILY 01/08/20 04/28/20 History Sildenafil Citrate 100 mg PO DAILY PRN 03/09/20 04/28/20 History Acetaminophen Tab [Tylenol] 650 mg PO Q4HR PRN tab 03/27/20 04/28/20 Rx Apixaban [Eliquis] 5 mg PO BID tab 03/27/20 04/28/20 Rx Cyclobenzaprine [Flexeril] 10 mg PO BID PRN #0 03/27/20 04/28/20 Rx Pregabalin [Lyrica] 300 mg PO BID #6 cap 03/27/20 04/28/20 Rx Ergocalciferol (Vitamin D2) 50,000 unit PO Q7D 04/28/20 04/28/20 History [Drisdol] Ibuprofen 800 mg PO TID PRN 04/28/20 04/28/20 History Metoprolol Tartrate [Lopressor] 12.5 mg PO BID 04/28/20 04/28/20 History Simvastatin [Zocor] 40 mg PO DAILY 04/28/20 04/28/20 History Zolpidem Tartrate [Ambien] 10 mg PO HS 04/28/20 04/28/20 History Allergies Allergy/AdvReac Type Severity Reaction Status Date / Time No Known Allergies Allergy Verified 04/28/20 11:36 Physical Exam Vitals: Vital Signs Temp Pulse Pulse Resp BP BP Pulse Ox 04/29/20 20:12 88 18 04/29/20 20:03 85 18 04/29/20 19:30 97.6 F 75 18 104/64 97 04/29/20 16:00 73 18 93/61 96 04/29/20 12:10 80 04/29/20 12:00 66 20 100/70 97 04/29/20 11:57 80 04/29/20 08:53 84 04/29/20 08:38 80 04/29/20 08:20 97.9 F 78 18 92/63 95 04/29/20 08:00 78 04/29/20 03:00 98.7 F 66 20 107/69 96 04/28/20 23:00 97.7 F 72 20 92/64 93 L Intake and Output 04/29/20 04/29/20 04/29/20 06:59 14:59 22:59 Intake Total 580 222 Output Total 425 Balance 155 222 Intake: Intake, IV Titration 100 Amount Piperacillin-Tazobactam 3 100 .375 gm In Sodium Chloride 0.9% 100 ml @ 25 mls/hr IVPB Q8HR [facility] Rx# :[id number] Oral 480 222 Output: Urine 425 Other: # Voids 2 Weight 119 kg GENERAL DESCRIPTION: Middle-aged male lying in bed, no distress. No tachypnea or accessory muscle of respiration use. HEENT: Shows Pallor , no scleral icterus. Oral mucous membrane is dry. No phary ngeal erythema or thrush NECK: Trachea central, no thyromegaly. LUNGS: Unlabored breathing. Decreased breath sound at the base. No wheeze or crackle. HEART: S1, S2, regular rate and rhythm. No loud murmur ABDOMEN: Soft, no tenderness , guarding or rigidity, no organomegaly EXTREMITIES: No edema of feet. SKIN: No rash, no masses palpable. NEUROLOGICAL: The patient is awake, alert, oriented x3, mood and affect normal. Results CBC & Chem 7: 04/28/20 12:28 04/28/20 12:28 Labs: Microbiology - Last 24 Hours (Table) 04/28/20 12:28 Blood Culture Gram Stain - Preliminary Blood 04/29/20 08:53 Sputum Culture - Preliminary Sputum 04/28/20 19:49 Urine Culture - Preliminary Urine,Voided 04/28/20 12:28 Blood Culture - Final Blood Assessment and Plan Assessment: 1-patient presented to the hospital with sepsis in this patient who did have a fever tachycardia was likely left lower lobe pneumonia in this patient has been in the hospital high clinical concern for a nosocomial gram-negative pathogen such as Pseudomonas 2- gram-negative bacteremia source likely pneumonia (1) Pneumonia Current Visit: Yes Status: Acute Code(s): J18.9 - PNEUMONIA, UNSPECIFIED ORGANISM SNOMED Code(s): 784576160 (2) Sepsis Current Visit: Yes Status: Acute Code(s): A41.9 - SEPSIS, UNSPECIFIED ORGANISM SNOMED Code(s): 97802213 Plan: 1- blood cultures will be repeated documented clearance of bacteremia 2- Zosyn 3.75 g every 8 hours to continue for now 3- we'll wait for final ID on the blood culture as well as sputum culture We will follow on clinical condition and cultures to further adjust medication if needed Thank you for this consultation will follow this patient with you Time with Patient: Greater than 30
[2020-04-29] MEDS: ZOLPIDEM 10 MG TAB PO PRN (23:01)
[2020-04-30] MEDS: SODIUM CHLORIDE 0.9% 1,000 ML IV SCH ×3 (05:09→20:59)
[2020-04-30] MEDS: PANTOPRAZOLE 40 MG TABLET PO SCH ×2 (06:42→15:57)
[2020-04-30 08:07] LABS: Anisocytosis Slight; HGB 8.6 gm/dL (13.0-17.5); Hypochromasia Marked; MCH 22.6 pg (25.0-35.0); MCHC 27.7 g/dL (31.0-37.0); MCV 81.3 fL (80.0-100.0); Mean Platelet Volume 7.8; Microcytosis Slight; Platelet Count 144 k/uL (150-450); Poikilocytosis Slight; RBC 3.81 m/uL (4.30-5.90); RDW 18.3 % (11.5-15.5); WBC 17.7 k/uL (3.8-10.6)
[2020-04-30] MEDS: PIPERACILLIN-TAZOBACTAM 3.375 GM in SODIUM CHLORIDE 0.9% 100 ML IVPB SCH ×3 (08:19→23:35)
[2020-04-30] MEDS: ESCITALOPRAM 10 MG TAB PO SCH (08:20)
[2020-04-30] MEDS: ASPIRIN 325 MG TAB PO SCH (08:20)
[2020-04-30] MEDS: ATORVASTATIN 20 MG TAB PO SCH (08:20)
[2020-04-30] MEDS: PREGABALIN 100 MG CAP PO SCH ×2 (08:20→20:59)
[2020-04-30] MEDS: allopurinoL 300 MG TAB PO SCH (08:20)
[2020-04-30] MEDS: APIXABAN 5 MG TAB PO SCH ×2 (08:20→21:00)
[2020-04-30] MEDS: METOPROLOL TARTRATE 12.5 MG TAB PO SCH ×2 (08:20→20:59)
[2020-04-30] MEDS: LACOSAMIDE 50 MG TABLET PO SCH ×2 (08:20→21:00)
[2020-04-30 08:27] LABS: Calcium 7.9 mg/dL (8.4-10.2); Potassium 4.9 mmol/L (3.5-5.1)
[2020-04-30] MEDS: IPRATROPIUM-ALBUTEROL 3 ML NEB INHALATION SCH ×4 (08:28→20:20)
[2020-04-30] MEDS: IBUPROFEN 800 MG TAB PO PRN (08:33)
--- NOTE | 2020-04-30 12:45 | P.PN ---
Subjective Patient is a pleasant 55-year-old male was admitted for sepsis. Patient was initially believed to have right middle lobe pneumonia from the initial chest x- ray all the repeat chest x-ray showed significant improvement. Patient probably doesn't have pneumonia. Patient does have significantly abnormal urine with the gram negative bacteremia. Possible source of infection and it is U urinary tract infection patient is was less than Zosyn which will be continued and infectious disease will be consulted. Patient although is requiring a small a mount of oxygen patient will be closely monitored. Covid 19 PCR is still pending. Repeat blood cultures for today and tomorrow will be obtained. Patient although is comparing of greenish sputum may be bronchitis, sputum cultures are pending 04/30/2020 Patient has gram-negative bacilli in the sputum as well. Possible source of infection appears to be right lower lobe pneumonia and gram-negative pneumonia. Constitutional: Denied any fatigue denied any fever. Cardio vascular: denied any chest pain, palpitations Gastrointestinal denied any nausea vomiting Pulmonary: Denied any shortness of breath cough Neurologic denied any new focal deficits All inpatient medications were reviewed and appropriate changes in these medications as dictated in the interval history and assessment and plan. Objective - Vital Signs Vital signs: Vital Signs Temp 97.6 F 04/30/20 08:00 Pulse 63 04/30/20 11:37 Resp 20 04/30/20 11:37 BP 125/79 04/30/20 11:37 Pulse Ox 96 04/30/20 11:37 Intake & Output 04/29/20 04/30/20 04/30/20 18:59 06:59 18:59 Intake Total 802 1490 Output Total 425 1050 775 Balance 377 -1050 715 Weight 119.6 kg Intake: Intake, IV Titration 100 500 Amount Piperacillin-Tazobactam 3 100 100 .375 gm In Sodium Chloride 0.9% 100 ml @ 25 mls/hr IVPB Q8HR [facility] Rx# :[id number] Sodium Chloride 0.9% 1, 400 000 ml @ 100 mls/hr IV . Q10H [facility] Rx#:[id number] Oral 702 990 Output: Urine 425 1050 775 - Exam PHYSICAL EXAMINATION: GENERAL: The patient is alert and oriented x3, not in any acute distress. Well developed, well nourished. HEENT: Pupils are round and equally reacting to light. EOMI. No scleral icterus. No conjunctival pallor. Normocephalic, atraumatic. No pharyngeal erythema. No thyromegaly. CARDIOVASCULAR: S1 and S2 present. No murmurs, rubs, or gallops. PULMONARY: Chest is clear to auscultation, no wheezing or crackles. ABDOMEN: Soft, nontender, nondistended, normoactive bowel sounds. No palpable organomegaly. MUSCULOSKELETAL: No joint swelling or deformity. EXTREMITIES: No cyanosis, clubbing, or pedal edema. NEUROLOGICAL: Gross neurological examination did not reveal any focal deficits. SKIN: No rashes. - Labs CBC & Chem 7: 04/30/20 07:52 04/30/20 07:52 Labs: Abnormal Lab Results - Last 24 Hours (Table) 04/30/20 04/30/20 Range/Units 07:52 07:52 WBC 17.7 H (3.8-10.6) k/uL RBC 3.81 L (4.30-5.90) m/uL Hgb 8.6 L (13.0-17.5) gm/dL Hct 31.0 L (39.0-53.0) % MCH 22.6 L (25.0-35.0) pg MCHC 27.7 L (31.0-37.0) g/dL RDW 18.3 H (11.5-15.5) % Plt Count 144 L (150-450) k/uL BUN 22 H (9-20) mg/dL Glucose 103 H (74-99) mg/dL Calcium 7.9 L (8.4-10.2) mg/dL Microbiology - Last 24 Hours (Table) 04/29/20 08:53 Gram Stain - Preliminary Sputum Sputum Culture - Preliminary Gram Neg Bacilli 04/28/20 19:49 Urine Culture - Final Urine,Voided 04/28/20 12:28 Blood Culture Gram Stain - Preliminary Blood Blood Culture - Preliminary Gram Neg Bacilli Assessment and Plan Plan: -sepsis: Patient has gram-negative bacteremia Most probably secondary to pneumoniasputum cultures is also showing gram-negative bacilli patient appears to have gram-negative pneumonia.. patient is on Zosyn i Covid 9 PCR is negative. Patient was recently treated for septic shock secondary to aspiration pneumonia and then UTI. -Mildly elevated troponin probably secondary to sepsis cardiology was consulted will repeat one more set of troponin patient's troponins are minimally elevated and were stable -Recent esophageal dilatation procedure for recurrent esophageal stricture -Hypertension -History of gout not in gout flareup at this time -Paroxysmal atrial fibrillation presently rate controlled, patient is presently on Eliquis and metoprolol which will be continued. -hypertension -Hyperlipidemia
--- NOTE | 2020-04-30 15:18 | P.PN ---
Subjective Progress Note Date: 04/30/20 Principal diagnosis: Gram-negative bacteremia, urinary tract infection, possible left lower lobe pneumonia This is a 55-year-old male with known history of multiple medical problems, patient is known to have chronic atrial fibrillation, hypertension, hiatal hernia, chronic dysphagia with previous EGD and agitation. Chronic esophageal stricture/stenosis. History of gastric sleeve surgery in December of 2019 history of systolic congestive heart failure. History of pneumonia and sepsis, patient was seen by our service almost a month ago, he presented at that time with acute hypoxic and hypercapnic respiratory failure secondary to right lung pneumonia requiring intubation and mechanical ventilation. His other medical problems included septic shock, urinary tract infection, neutropenia related to sepsis, atrial fibrillation with RVR, and known history of nonischemic cardiomyopathy and LV dysfunction. Patient was discharged on 03/28/20, EGD on that admission showed mild tightness of the lower esophageal sphincter suspicious for esophageal achalasia. Patient was felt to be a poor candidate for surgical endoscopic intervention. Patient was seen in the ER on 03/28/20, mostly with multiple complaints including cough fever or shortness of breath congestion, and his symptoms have been going on for the last 3 days. Chest x-ray on admission questioned a left lower lobe infiltrate, patient was admitted placed on antibiotics, and follow-up chest x-ray this morning actually showed significant improvement. Patient is feeling a bit better, breathing a lot easier, he had a T-max of 101.5 on admission. Presently his temp is 97.9. WBC count today is 6.7 hemoglobin is 9.6. Electrolytes and renal profile are normal. He has what seems to be a UTI. Based on the urinalysis. Covid 19 PCR is pending. Patient was seen by the hospitalist, started empirically on antibiotics, and I was asked to see him on consultation. Again his chest x-ray is already showing improve ment today compared to the admission chest x-ray. Patient was reevaluated today on 04/30/20, he is feeling much better today, breathing a lot easier, denies any pulmonary symptoms whatsoever. No cough no wheezing no shortness of breath. His blood cultures came back positive for gram-negative bacilli. His chest x-ray showed improvement compared to his initial x-ray on admission, hence I'm suspecting that the patient may have more of a urinary tract infection then to the left lower lobe pneumonia. He was seen by infectious disease on consultation, and remains on Zosyn which is basically appropriate coverage for now for his presumptive UTI and possible left lower lobe pneumonia. Patient is afebrile, she is now on room air with O2 saturation of 96%. WBC count remains elevated at 17.7 hemoglobin is 8.6. And his final urine culture is pending. Objective - Vital Signs Vital signs: Vital Signs Temp 97.6 F 04/30/20 08:00 Pulse 63 04/30/20 11:37 Resp 20 04/30/20 11:37 BP 125/79 04/30/20 11:37 Pulse Ox 96 04/30/20 11:37 Intake & Output 04/29/20 04/30/20 04/30/20 18:59 06:59 18:59 Intake Total 802 1490 Output Total 425 1050 775 Balance 377 -1050 715 Weight 119.6 kg Intake: Intake, IV Titration 100 500 Amount Piperacillin-Tazobactam 3 100 100 .375 gm In Sodium Chloride 0.9% 100 ml @ 25 mls/hr IVPB Q8HR [facility] Rx# :[id number] Sodium Chloride 0.9% 1, 400 000 ml @ 100 mls/hr IV . Q10H [facility] Rx#:[id number] Oral 702 990 Output: Urine 425 1050 775 - Exam GENERAL EXAM: Alert, very pleasant, 54-year-old -[place] male, in no distress. HEAD: Normocephalic/atraumatic. EENT: PERRLA, EOMI, neck discomfort chronic masses, no JVD. CHEST: No chest wall deformity. Symmetrical expansion. LUNGS: Equal air entry with no crackles, wheeze, rhonchi or dullness. CVS: Regular rate and rhythm, normal S1 and S2, no gallops, no murmurs, no rubs ABDOMEN: Soft, nontender. No hepatosplenomegaly, normal bowel sounds, no guarding or rigidity. EXTREMITIES: No clubbing, trace of bipedal edema. MUSCULOSKELETAL: Muscle strength and tone normal. SPINE: No scoliosis or deformity SKIN: No rashes CENTRAL NERVOUS SYSTEM: Alert and oriented 3, no gross focal deficits. PSYCHIATRIC: Normal mood, affect and normal mental status examination - Labs CBC & Chem 7: 04/30/20 07:52 04/30/20 07:52 Labs: Abnormal Lab Results - Last 24 Hours (Table) 04/30/20 04/30/20 Range/Units 07:52 07:52 WBC 17.7 H (3.8-10.6) k/uL RBC 3.81 L (4.30-5.90) m/uL Hgb 8.6 L (13.0-17.5) gm/dL Hct 31.0 L (39.0-53.0) % MCH 22.6 L (25.0-35.0) pg MCHC 27.7 L (31.0-37.0) g/dL RDW 18.3 H (11.5-15.5) % Plt Count 144 L (150-450) k/uL BUN 22 H (9-20) mg/dL Glucose 103 H (74-99) mg/dL Calcium 7.9 L (8.4-10.2) mg/dL Microbiology - Last 24 Hours (Table) 04/29/20 12:51 Blood Culture - Preliminary Blood No Growth after 24 hours 04/29/20 08:53 Gram Stain - Preliminary Sputum Sputum Culture - Preliminary Gram Neg Bacilli 04/28/20 19:49 Urine Culture - Final Urine,Voided 04/28/20 12:28 Blood Culture Gram Stain - Preliminary Blood Blood Culture - Preliminary Gram Neg Bacilli Assessment and Plan Assessment: Impression: Gram-negative bacteremia, most likely source is his urine unless for otherwise. Acute urinary tract infection. Possible Acute healthcare acquired pneumonia, however, felt to be less likely considering the dramatic improvement in chest x-ray within 24 hours. History of esophageal stricture requiring dilatation. Benign essential hypertension. Paroxysmal atrial fibrillation. Dyslipidemia. History of esophageal achalasia. History of CVA. Paroxysmal atrial fibrillation. History of gastric sleeve surgery in December of 2019. Morbid obesity. History of nonischemic cardiomyopathy and LV dysfunction. Acute urinary tract infection. Recommendation: Continue present course of antibiotics. Patient is presently on Zosyn. Adjust antibiotics once the final cultures are available from the blood and urine. Still awaiting porras virus PCR Continue bronchodilators. Resume cardiac meds We'll continue to follow. Time with Patient: Less than 30
[2020-04-30] MEDS: BUDESONIDE 0.5 MG/2 ML NEBU INHALATION SCH (20:20)
[2020-04-30 20:21] VITALS: RESP 18
[2020-04-30] MEDS: ZOLPIDEM 10 MG TAB PO PRN (23:35)
[2020-05-01] MEDS: SODIUM CHLORIDE 0.9% 1,000 ML IV SCH ×3 (05:11→23:01)
--- NOTE | 2020-05-01 05:11 | PN ---
PROGRESS NOTE DATE OF SERVICE: 04/30/2020 REASON FOR FOLLOWUP: Gram-negative bacteremia and pneumonia. INTERVAL HISTORY: The patient is currently afebrile. Patient is breathing comfortably. Patient denies having any chest pain. Cough has slightly decreased in intensity. No nausea, no vomiting. No abdominal pain, no diarrhea. PHYSICAL EXAMINATION: Blood pressure is 125/79 with a pulse of 63, temperature 97.6. He is 96% on room air. General description is a middle-aged male lying in bed in no distress. RESPIRATORY SYSTEM: Unlabored breathing. Decreased intensity of breath sounds. No wheeze. HEART: S1, S2. Regular rate and rhythm. ABDOMEN: Soft, no tenderness. LABS: White count 17.7. Creatinine is 1.14. Blood culture with Gram-negative. Sputum showing Gram-negative. DIAGNOSTIC IMPRESSION AND PLAN: Patient with Gram-negative bacteremia, source likely pneumonia. Will wait for the final ID of this pathogen. Patient is covered with Zosyn to continue, adjusting antibiotic further based on culture report. Continue with supportive care. MMODL / IJN: [id number] /
[2020-05-01] MEDS: PANTOPRAZOLE 40 MG TABLET PO SCH ×2 (06:34→17:53)
[2020-05-01] MEDS: IPRATROPIUM-ALBUTEROL 3 ML NEB INHALATION SCH ×4 (07:20→19:38)
[2020-05-01] MEDS: BUDESONIDE 0.5 MG/2 ML NEBU INHALATION SCH (07:20)
--- NOTE | 2020-05-01 08:00 | XR ---
EXAMINATION TYPE: XR chest 1V portable DATE OF EXAM: 05/01/2020 HISTORY: Shortness of breath. COMPARISON: 04/29/2020 TECHNIQUE: Single view of the chest is submitted. FINDINGS: Demonstrated are scattered senescent parenchymal change. There is no evidence for focal infiltrate. The heart is stable. Hilar and mediastinal structures are within normal limits. Degenerative changes are seen of the dorsal spine. IMPRESSION: 1. Chronic changes without evidence for acute pulmonary disease.
[2020-05-01 08:08] LABS: Anisocytosis Slight; HCT 32.3 % (39.0-53.0); HGB 9.3 gm/dL (13.0-17.5); Hypochromasia Marked; MCH 22.6 pg (25.0-35.0); MCHC 28.7 g/dL (31.0-37.0); MCV 78.7 fL (80.0-100.0); Mean Platelet Volume 7.6; Microcytosis Slight; Platelet Count 156 k/uL (150-450); Poikilocytosis Slight; RBC 4.11 m/uL (4.30-5.90); RDW 18.3 % (11.5-15.5); WBC 8.2 k/uL (3.8-10.6)
[2020-05-01] MEDS: ESCITALOPRAM 10 MG TAB PO SCH (08:08)
[2020-05-01] MEDS: ATORVASTATIN 20 MG TAB PO SCH (08:08)
[2020-05-01] MEDS: PREGABALIN 100 MG CAP PO SCH ×2 (08:08→20:11)
[2020-05-01] MEDS: ASPIRIN 325 MG TAB PO SCH (08:08)
[2020-05-01] MEDS: METOPROLOL TARTRATE 12.5 MG TAB PO SCH ×2 (08:08→20:11)
[2020-05-01] MEDS: allopurinoL 300 MG TAB PO SCH (08:08)
[2020-05-01] MEDS: PIPERACILLIN-TAZOBACTAM 3.375 GM in SODIUM CHLORIDE 0.9% 100 ML IVPB SCH (08:08)
[2020-05-01] MEDS: LACOSAMIDE 50 MG TABLET PO SCH ×2 (08:08→20:11)
[2020-05-01] MEDS: APIXABAN 5 MG TAB PO SCH ×2 (08:08→20:11)
[2020-05-01 08:15] LABS: African American GFR (CKD) >90 (>60 ml/min/1.73 sqM); Anion Gap 4 mmol/L; Blood Urea Nitrogen 20 mg/dL (9-20); Calcium 8.3 mg/dL (8.4-10.2); Carbon Dioxide 28 mmol/L (22-30); Chloride 106 mmol/L (98-107); Glucose 72 mg/dL (74-99); Non-African American GFR(CKD) 79 (>60 ml/min/1.73 sqM); Potassium 5.4 mmol/L (3.5-5.1); Sodium 138 mmol/L (137-145)
[2020-05-01] MEDS: MEROPENEM 1 GM in SODIUM CHLORIDE 0.9% 100 ML IVPB SCH ×2 (15:15→23:00)
--- NOTE | 2020-05-01 16:46 | P.PN ---
Subjective Patient is a pleasant 55-year-old male was admitted for sepsis. Patient was initially believed to have right middle lobe pneumonia from the initial chest x- ray all the repeat chest x-ray showed significant improvement. Patient probably doesn't have pneumonia. Patient does have significantly abnormal urine with the gram negative bacteremia. Possible source of infection and it is U urinary tract infection patient is was less than Zosyn which will be continued and infectious disease will be consulted. Patient although is requiring a small a mount of oxygen patient will be closely monitored. Covid 19 PCR is still pending. Repeat blood cultures for today and tomorrow will be obtained. Patient although is comparing of greenish sputum may be bronchitis, sputum cultures are pending 04/30/2020 Patient has gram-negative bacilli in the sputum as well. Possible source of infection appears to be right lower lobe pneumonia and gram-negative pneumonia. 05/01/2020 Patient has Klebsiella pneumoniae in the blood. Sr. days are back. If her patient continues to have negative blood cultures by tomorrow on the cultures that were obtained on the seventh of this month, PICC line will be ordered and patient will be discharged tomorrow and IV antibiotics. Patient has ESBL Klebsiella. Patient was started on meropenem Constitutional: Denied any fatigue denied any fever. Cardio vascular: denied any chest pain, palpitations Gastrointestinal denied any nausea vomiting Pulmonary: Denied any shortness of breath cough Neurologic denied any new focal deficits All inpatient medications were reviewed and appropriate changes in these medications as dictated in the interval history and assessment and plan. Objective - Vital Signs Vital signs: Vital Signs Temp 97.8 F 05/01/20 06:37 Pulse 64 05/01/20 15:39 Resp 18 05/01/20 08:00 BP 114/74 05/01/20 06:37 Pulse Ox 94 L 05/01/20 06:37 Intake & Output 04/30/20 05/01/20 05/01/20 18:59 06:59 18:59 Intake Total 1490 2380 760 Output Total 775 1650 1900 Balance 715 730 -1140 Intake: Intake, IV Titration 500 1100 400 Amount Piperacillin-Tazobactam 3 100 200 100 .375 gm In Sodium Chloride 0.9% 100 ml @ 25 mls/hr IVPB Q8HR [facility] Rx# :[id number] Sodium Chloride 0.9% 1, 400 900 300 000 ml @ 100 mls/hr IV . Q10H [facility] Rx#:[id number] Oral 990 1280 360 Output: Urine 775 1650 1900 Other: # Voids 1 - Exam PHYSICAL EXAMINATION: GENERAL: The patient is alert and oriented x3, not in any acute distress. Well developed, well nourished. HEENT: Pupils are round and equally reacting to light. EOMI. No scleral icterus. No conjunctival pallor. Normocephalic, atraumatic. No pharyngeal erythema. No thyromegaly. CARDIOVASCULAR: S1 and S2 present. No murmurs, rubs, or gallops. PULMONARY: Chest is clear to auscultation, no wheezing or crackles. ABDOMEN: Soft, nontender, nondistended, normoactive bowel sounds. No palpable organomegaly. MUSCULOSKELETAL: No joint swelling or deformity. EXTREMITIES: No cyanosis, clubbing, or pedal edema. NEUROLOGICAL: Gross neurological examination did not reveal any focal deficits. SKIN: No rashes. - Labs CBC & Chem 7: 05/01/20 07:16 05/01/20 07:16 Labs: Abnormal Lab Results - Last 24 Hours (Table) 05/01/20 05/01/20 Range/Units 07:16 07:16 RBC 4.11 L (4.30-5.90) m/uL Hgb 9.3 L (13.0-17.5) gm/dL Hct 32.3 L (39.0-53.0) % MCV 78.7 L (80.0-100.0) fL MCH 22.6 L (25.0-35.0) pg MCHC 28.7 L (31.0-37.0) g/dL RDW 18.3 H (11.5-15.5) % Potassium 5.4 H (3.5-5.1) mmol/L Glucose 72 L (74-99) mg/dL Calcium 8.3 L (8.4-10.2) mg/dL Microbiology - Last 24 Hours (Table) 04/29/20 12:51 Blood Culture - Preliminary Blood No Growth after 48 hours 04/30/20 09:30 Blood Culture - Preliminary Blood No Growth after 24 hours 04/30/20 07:52 Blood Culture - Preliminary Blood No Growth after 24 hours 04/28/20 12:28 Blood Culture Gram Stain - Final Blood Blood Culture - Final Klebsiella pneumoniae Assessment and Plan Plan: -sepsis: Patient has gram-negative bacteremia Most probably secondary to pneumonia sputum cultures is also showing ESBL Klebsiella pneumoniae, patient was switched to meropenem.. Covid 19 PCR was ruled out. Patient was recently treated for septic shock secondary to aspiration pneumonia and then UTI. -Mildly elevated troponin probably secondary to sepsis can only no further intervention at this time. -Recent esophageal dilatation procedure for recurrent esophageal stricture -Hypertension -History of gout not in gout flareup at this time -Paroxysmal atrial fibrillation presently rate controlled, patient is presently on Eliquis and metoprolol which will be continued. -hypertension -Hyperlipidemia
[2020-05-01] MEDS: oxyCODONE-APAP 7.5-325MG 1 EACH TAB PO PRN (20:11)
[2020-05-01] MEDS: ALBUTEROL HFA INHALER INHALATION SCH (21:22)
--- NOTE | 2020-05-01 22:43 | PN ---
PROGRESS NOTE PULMONARY/CRITICAL CARE PROGRESS NOTE: DATE OF SERVICE: 05/01/2020 This is a 55-year-old black male admitted to the hospital on April 28. The patient came in with complaints of possible urinary tract infection and sepsis. Blood cultures were positive for Klebsiella pneumoniae. Sputum cultures was positive for Gram- negative bacilli. He was also thought to have a possible urinary tract infection. Anyway, the patient seems to be doing a bit better. He does have a history of esophageal stricture requiring dilatation, benign essential hypertension, paroxysmal atrial fibrillation, hyperlipidemia, esophageal achalasia, CVA, atrial fibrillation, gastric sleeve surgery, December 2019, morbid obesity, history of nonischemic cardiomyopathy and LV dysfunction, and acute urinary tract infection. The patient was recently in the ICU on the ventilator with respiratory failure. He was able be successfully extubated and discharged. Currently he is doing relatively well. He has no major complaints. He is feeling well. He was tested for COVID-19 infection. His tests are currently pending still. His influenza studies were negative. He is certainly not behaving like somebody with COVID-19 infection. PHYSICAL EXAMINATION: VITAL SIGNS: Current vital signs are reviewed. Temperature is 97.8, heart rate 64, respiratory rate 18, blood pressure 114/74, mean 87, and room-air saturation 94%. GENERAL APPEARANCE: Appears in no acute distress. HEENT: Examination is grossly unremarkable. NECK: Supple. Full range of motion. No adenopathy. CARDIOVASCULAR: Examination reveals regular rhythm and rate. Heart rate 65 beats per minute. S1, S2 normal. LUNGS: Lungs are relatively clear. Breath sounds equal. No wheezes, rhonchi or crackles. ABDOMEN: Soft. Bowel sounds are noted. EXTREMITIES: Intact. Minimal edema. SKIN: Without rash. NEUROLOGIC: Neurologic examination is nonfocal. LABS/IMAGING: Reviewed. Currently white count is 8.2, down from 17.7, hemoglobin 9.3, hematocrit 32.3, platelet count 156,000. Sodium 138, potassium 5.4, chloride 106, CO2 28. Anion gap is 4. BUN and creatinine were 20 and 1.06. Troponins were 0.194 and 0.131. Urine with trace protein, 1+ ketones, moderate blood, positive for nitrites, large positive leukocyte esterase, 79 RBCs, 72 WBCs and rare bacteria. Again, blood cultures were positive for Klebsiella pneumoniae on April 28 and Gram- negative bacilli in the sputum on April 29. Chest x-ray from May 01 shows no acute pulmonary disease. Medications are reviewed. Everything appears to be appropriate. Currently the patient is on meropenem as an antibiotic. ASSESSMENT: 1. Klebsiella pneumoniae bacteremia. 2. Possible urinary tract infection. 3. Possible acute healthcare-acquired pneumonia, with sputum being positive for Gram- negative bacilli, not yet identified. 4. History of esophageal stricture requiring dilatation. 5. Benign essential hypertension. 6. Paroxysmal atrial fibrillation. 7. Hyperlipidemia. 8. Esophageal achalasia. 9. History of cerebrovascular accident. 10.Paroxysmal atrial fibrillation. 11.History of gastric sleeve surgery, December 2019. 12.Morbid obesity. 13.History of nonischemic cardiomyopathy and left ventricular dysfunction. PLAN: Currently the patient is on meropenem. Blood cultures were positive for Klebsiella pneumoniae. Sputum was positive for Gram-negative bacilli, yet to be identified. Pulmonary status is stable. We will continue to follow. No additional recommendations are made. Prognosis is guarded. MMODL / IJN: [id number] /
[2020-05-01] MEDS: ZOLPIDEM 10 MG TAB PO PRN (22:57)
--- NOTE | 2020-05-02 03:30 | PN ---
PROGRESS NOTE DATE OF SERVICE: 05/01/2020 REASON FOR FOLLOWUP: Klebsiella pneumoniae bacteremia possible pneumonia. INTERVAL HISTORY: The patient is currently afebrile. Patient is breathing more comfortably. Patient denies having any chest pain. Cough has decreased in intensity. No nausea, no vomiting. No abdominal pain or diarrhea. PHYSICAL EXAMINATION: Blood pressure 99/61 with a pulse of 83, temperature 98. He is 92% on room air. General description is a middle-aged male lying in bed in no distress. RESPIRATORY SYSTEM: Unlabored breathing, decreased intensity of breath sounds. No wheeze. HEART: S1, S2. Regular rate and rhythm. ABDOMEN: Soft, no tenderness. LABS: Hemoglobin 9.3, white count 8.2, creatinine 1.06. Urine is positive. Blood culture finalized with ESBL Klebsiella. Sputum is Gram-negative. Repeat blood culture negative. DIAGNOSTIC IMPRESSION AND PLAN: Patient with ESBL Klebsiella pneumoniae bacteremia, source is likely pneumonia. Zosyn discontinued. Meropenem has been added. He will need a Midline for outpatient IV antibiotic therapy . Plan of care discussed with the admitting physician working on discharge. Continue with supportive care. MMODL / IJN: [id number] /
[2020-05-02 04:35] VITALS: BP 106/61; PULSE 65; TEMP 97.9
[2020-05-02] MEDS: PANTOPRAZOLE 40 MG TABLET PO SCH (06:40)
[2020-05-02] MEDS: ALBUTEROL HFA INHALER INHALATION SCH ×3 (07:58→15:36)
[2020-05-02] MEDS: allopurinoL 300 MG TAB PO SCH (08:20)
[2020-05-02] MEDS: ATORVASTATIN 20 MG TAB PO SCH (08:20)
[2020-05-02] MEDS: APIXABAN 5 MG TAB PO SCH (08:20)
[2020-05-02] MEDS: PREGABALIN 100 MG CAP PO SCH (08:20)
[2020-05-02] MEDS: ESCITALOPRAM 10 MG TAB PO SCH (08:20)
[2020-05-02] MEDS: LACOSAMIDE 50 MG TABLET PO SCH (08:20)
[2020-05-02] MEDS: METOPROLOL TARTRATE 12.5 MG TAB PO SCH (08:21)
[2020-05-02] MEDS ORDERED: ASPIRIN 81 MG PO SCH (09:00)
[2020-05-02] MEDS ORDERED: TIOTROPIUM 18 MCG/PUFF INHALER INHALATION SCH (09:00)
[2020-05-02] MEDS: MEROPENEM 1 GM in SODIUM CHLORIDE 0.9% 100 ML IVPB SCH (11:03)
[2020-05-02] MEDS ORDERED: SODIUM POLYSTYRENE SULFONATE 15 GM/60 ML BOTTLE PO STA ×2 (11:10→14:10)
--- NOTE | 2020-05-02 11:52 | P.DS ---
Providers Date of admission: 04/28/20 13:46 Attending physician: Mc Cruz MD Consults: 04/28/20 16:18 Consult Physician Routine Consulting Provider: Dimitri Davidson Consult Reason/Comments: recurrent Pneumonia Do you want consulting provider notified?: Yes 04/28/20 16:53 Consult Physician Routine Consulting Provider: Navdeep Piedra Consult Reason/Comments: Recurrent Pneumonia Do you want consulting provider notified?: Yes Primary care physician: [facility] Course: Patient is a pleasant 55-year-old male was admitted for sepsis. Patient was initially believed to have right middle lobe pneumonia from the initial chest x- ray all the repeat chest x-ray showed significant improvement. Patient probably doesn't have pneumonia. Patient does have significantly abnormal urine with the gram negative bacteremia. Possible source of infection and it is U urinary tract infection patient is was less than Zosyn which will be continued and infectious disease will be consulted. Patient although is requiring a small amount of oxygen patient will be closely monitored. Covid 19 PCR is still pending. Repeat blood cultures for today and tomorrow will be obtained. Patient although is comparing of greenish sputum may be bronchitis, sputum cultures are pending 04/30/2020 Patient has gram-negative bacilli in the sputum as well. Possible source of infection appears to be right lower lobe pneumonia and gram-negative pneumonia. 05/01/2020 Patient has Klebsiella pneumoniae in the blood. Sr. days are back. If her patient continues to have negative blood cultures by tomorrow on the cultures that were obtained on the seventh of this month, PICC line will be ordered and patient will be discharged tomorrow and IV antibiotics. Patient has ESBL Klebsiella. Patient was started on meropenem 05/02/2020 Patient will be discharged most probably and ertapenem today. Midline was ordered. Patient potassium is bit elevated I'll give a dose of Late and patient will need to be on low potassium diet patient is on low-dose of lisinopril which will be discontinued at this time and patient is not requiring this medication here . PHYSICAL EXAMINATION: GENERAL: The patient is alert and oriented x3, not in any acute distress. Well developed, well nourished. HEENT: Pupils are round and equally reacting to light. EOMI. No scleral icterus. No conjunctival pallor. Normocephalic, atraumatic. No pharyngeal erythema. No thyromegaly. CARDIOVASCULAR: S1 and S2 present. No murmurs, rubs, or gallops. PULMONARY: Chest is clear to auscultation, no wheezing or crackles. ABDOMEN: Soft, nontender, nondistended, normoactive bowel sounds. No palpable organomegaly. MUSCULOSKELETAL: No joint swelling or deformity. EXTREMITIES: No cyanosis, clubbing, or pedal edema. NEUROLOGICAL: Gross neurological examination did not reveal any focal deficits. SKIN: No rashes. Assessment and Plan Plan: -sepsis: Patient has gram-negative bacteremia Most probably secondary to pneumonia sputum cultures is also showing ESBL Klebsiella pneumoniae, patient was switched to meropenem.. Covid 19 PCR was ruled out. -Mildly elevated troponin probably secondary to sepsis can only no further intervention at this time. -Recent esophageal dilatation procedure for recurrent esophageal stricture -Hypertension -History of gout not in gout flareup at this time -Paroxysmal atrial fibrillation presently rate controlled, patient is presently on Eliquis and metoprolol which will be continued. -hypertension -Hyperlipidemia Patient Condition at Discharge: Fair Plan - Discharge Summary Discharge Rx Participant: Yes New Discharge Prescriptions: New Atorvastatin [Lipitor] 20 mg PO DAILY #30 tab Continue Escitalopram [Lexapro] 10 mg PO DAILY Allopurinol [Zyloprim] 300 mg PO DAILY Lacosamide [Vimpat] 50 mg PO BID Omeprazole 40 mg PO BID #60 cap oxyCODONE-APAP 7.5-325MG [Percocet 7.5-325 mg] 1 tab PO DAILY PRN #10 tab PRN Reason: Pain Sildenafil Citrate 100 mg PO DAILY PRN PRN Reason: ED Apixaban [Eliquis] 5 mg PO BID tab Acetaminophen Tab [Tylenol] 650 mg PO Q4HR PRN tab PRN Reason: Fever And/Or Mild Pain Cyclobenzaprine [Flexeril] 10 mg PO BID PRN #0 PRN Reason: Spasms Pregabalin [Lyrica] 300 mg PO BID #6 cap Metoprolol Tartrate [Lopressor] 12.5 mg PO BID Zolpidem Tartrate [Ambien] 10 mg PO HS Ergocalciferol (Vitamin D2) [Drisdol] 50,000 unit PO Q7D Ibuprofen 800 mg PO TID PRN PRN Reason: Pain Discontinued lisinopriL [Zestril] 2.5 mg PO DAILY Simvastatin [Zocor] 40 mg PO DAILY Discharge Medication List Allopurinol [Zyloprim] 300 mg PO DAILY 06/04/16 [History] Escitalopram [Lexapro] 10 mg PO DAILY 06/04/16 [History] Lacosamide [Vimpat] 50 mg PO BID 03/25/18 [History] Omeprazole 40 mg PO BID #60 cap 07/06/19 [Rx] oxyCODONE-APAP 7.5-325MG [Percocet 7.5-325 mg] 1 tab PO DAILY PRN #10 tab 12/15/19 [Rx] Sildenafil Citrate 100 mg PO DAILY PRN 03/09/20 [History] Acetaminophen Tab [Tylenol] 650 mg PO Q4HR PRN tab 03/27/20 [Rx] Apixaban [Eliquis] 5 mg PO BID tab 03/27/20 [Rx] Cyclobenzaprine [Flexeril] 10 mg PO BID PRN #0 03/27/20 [Rx] Pregabalin [Lyrica] 300 mg PO BID #6 cap 03/27/20 [Rx] Ergocalciferol (Vitamin D2) [Drisdol] 50,000 unit PO Q7D 04/28/20 [History] Ibuprofen 800 mg PO TID PRN 04/28/20 [History] Metoprolol Tartrate [Lopressor] 12.5 mg PO BID 04/28/20 [History] Zolpidem Tartrate [Ambien] 10 mg PO HS 04/28/20 [History] Atorvastatin [Lipitor] 20 mg PO DAILY #30 tab 05/02/20 [Rx] Follow up Appointment(s)/Referral(s): [facility], [NON-STAFF] - Eric Ang DO [Primary Care Provider] - 3 Days
[2020-05-02] MEDS ORDERED: ERTAPENEM 1 GM in SODIUM CHLORIDE 0.9% 50 ML IVPB STA (14:04)
[2020-05-02] MEDS: oxyCODONE-APAP 7.5-325MG 1 EACH TAB PO PRN (14:21)
[2020-05-02] MEDS ORDERED: ERTAPENEM 1 GM in SODIUM CHLORIDE 0.9% 50 ML IVPB ONE (15:00)
--- NOTE | 2020-05-02 15:13 | PN ---
PROGRESS NOTE PULMONARY/CRITICAL CARE PROGRESS NOTE DATE OF SERVICE: May 02, 2020 This is a 55-year-old black male admitted to the hospital back on April 28. The patient came in with complaints of possible urinary tract infection and sepsis. Blood cultures were positive for Klebsiella pneumoniae. Sputum cultures were also positive for gram-negative bacilli. Currently, the patient is doing much better. He feels much better. He has been weaned down to room air. He does have a history of esophageal stricture, requiring dilatation, essential hypertension, paroxysmal atrial fibrillation, hyperlipidemia, esophageal achalasia, CVA, atrial fibrillation, previous gastric sleeve surgery in December 2019, morbid obesity, nonischemic cardiomyopathy, LV dysfunction, and previous urinary tract infections. The patient again is doing much better. His breathing is much improved. Denies any pain. His Covid test is still currently pending. PHYSICAL EXAMINATION: VITAL SIGNS: Current vital signs good temperature 97.9 heart rate 65, respiratory rate 18, blood pressure 106/61 mean 76 and room-air saturation is 92%. He appears in no acute distress. HEENT: Examination is grossly unremarkable. Not requiring any supplemental oxygen. NECK: Supple full range of motion. No adenopathy. Neck veins are flat. CARDIOVASCULAR: Examination reveals regular rhythm rate. S1, S2 normal. Heart rate mid 70s. No S3, S4, or murmur. LUNGS: Relatively clear. A few scattered mild rhonchi. No wheezes or crackles. ABDOMEN: Soft bowel sounds are heard. EXTREMITIES are intact. No cyanosis, clubbing, or edema. SKIN: Without rash. NEUROLOGIC: Examination is nonfocal. LABS: Reviewed. Nothing new from today. C-reactive protein is 37.4. Microbiology is written noted showing blood cultures and sputum cultures on the and respectively, positive for Klebsiella pneumoniae. MEDICATIONS: Medications are reviewed. ASSESSMENT: 1. Klebsiella pneumoniae bacteremia. 2. Possible urinary tract infection. 3. Possible acute healthcare acquired pneumonia secondary to Klebsiella pneumoniae. 4. History of esophageal stricture requiring dilatation. 5. Benign essential hypertension. 6. Paroxysmal atrial fibrillation. 7. Hyperlipidemia. 8. Esophageal achalasia. 9. History of cerebrovascular accident. 10.Paroxysmal atrial fibrillation. 11.History of gastric sleeve surgery December 2019. 12.Morbid obesity. 13.History of nonischemic cardiomyopathy. PLAN: Currently, the patient is doing well. Discharge planning is underway. He may or may not be discharged today. We will continue to follow. Respiratory status is improved. A PICC line was placed. He will be going home with IV antibiotics. He is currently on Merrem. We will continue to follow. MMODL / IJN: [id number] /
== END 2020-05-02 17:15 | disposition home health service (06) | DRG 871 ==
LOC: EC 11:03 → 3SCARD 13:46
PROVIDERS: ADMIT Internal Medicine; ATTEND Internal Medicine
PROC: 05HA33Z Insertion of Infusion Device into Left Brachial Vein, Percutaneous Approach (ICD-10-PCS; principal; 2020-05-02 10:15)
DX: A41.59 Other Gram-negative sepsis (principal); J15.0 Pneumonia due to Klebsiella pneumoniae; I42.8 Other cardiomyopathies; I50.22 Chronic systolic (congestive) heart failure; Z16.12 Extended spectrum beta lactamase (ESBL) resistance; N39.0 Urinary tract infection, site not specified; K22.0 Achalasia of cardia; I11.0 Hypertensive heart disease with heart failure; G40.909 Epilepsy, unspecified, not intractable, without status epilepticus; I48.0 Paroxysmal atrial fibrillation; J44.9 Chronic obstructive pulmonary disease, unspecified; E66.01 Morbid (severe) obesity due to excess calories; Z20.828 Contact with and (suspected) exposure to other viral communicable diseases; E78.5 Hyperlipidemia, unspecified; F32.9 Major depressive disorder, single episode, unspecified; F41.9 Anxiety disorder, unspecified; G47.30 Sleep apnea, unspecified; G62.9 Polyneuropathy, unspecified; G89.29 Other chronic pain; K21.9 Gastro-esophageal reflux disease without esophagitis; M10.9 Gout, unspecified; M19.90 Unspecified osteoarthritis, unspecified site; M54.9 Dorsalgia, unspecified; R13.10 Dysphagia, unspecified; R79.89 Other specified abnormal findings of blood chemistry; Z68.32 Body mass index [BMI] 32.0-32.9, adult; Z79.01 Long term (current) use of anticoagulants; Z79.899 Other long term (current) drug therapy; Z86.73 Personal history of transient ischemic attack (TIA), and cerebral infarction without residual deficits; Z87.01 Personal history of pneumonia (recurrent); Z87.440 Personal history of urinary (tract) infections; Z87.891 Personal history of nicotine dependence; Z96.612 Presence of left artificial shoulder joint; Z96.643 Presence of artificial hip joint, bilateral; Z98.1 Arthrodesis status; Z98.84 Bariatric surgery status; Z90.49 Acquired absence of other specified parts of digestive tract; Z87.19 Personal history of other diseases of the digestive system; Z98.890 Other specified postprocedural states; Z87.898 Personal history of other specified conditions; Z82.49 Family history of ischemic heart disease and other diseases of the circulatory system; Z80.9 Family history of malignant neoplasm, unspecified
CPT/HCPCS: 36410; 36415; 71045; 71046; 76937; 80048; 80053; 81001; 83605; 83735; 83880; 84484; 85025; 85027; 85610; 85730; 86140; 87040; 87070; 87077; 87086; 87186; 87205; 87502; 93005; 93306; 94640; 96365; 96367; 96375; 99285

== ENCOUNTER 2020-05-05 15:31 | Observation (INO) | payer MEDICARE, OTHER ==
--- NOTE | 2020-05-05 16:01 | ED ---
General Adult HPI - General Chief complaint: Recheck/Abnormal Lab/Rx Stated complaint: PIC Line issues Time Seen by Provider: 05/05/20 15:54 Source: patient Mode of arrival: ambulatory Limitations: no limitations - History of Present Illness Initial comments: Dictation was produced using Dialog[employer] dictation software. please excuse any grammatical, word or spelling errors. This patient was cared for during a federal and state declared state of emergency secondary to Covid 19 Chief Complaint: 55-year-old male presents with malfunctioning IV line History of Present Illness: 65-year-old male who was recently discharged from the hospital for bacteremia and pneumonia. Patient had a midlline placed. He was discharged 3 days ago. At home he provides himself with IV antibiotics. Patient administers himself meropenem at home. Today he noticed that his midline was not working. Patient has no medical complaints at this time. Denie s any pain in his arm. The ROS documented in this emergency department record has been reviewed and confirmed by me. Those systems with pertinent positive or negative responses have been documented in the HPI. All other systems are other negative and/or noncontributory. PHYSICAL EXAM: General Impression: Alert and oriented x3, not in acute distress HEENT: Normocephalic atraumatic, extra-ocular movements intact, pupils equal and reactive to light bilaterally, mucous membranes moist. Cardiovascular: Heart regular rate and rhythm Chest: Able to complete full sentences, no retractions, no tachypnea Abdomen: abdomen soft, non-tender, non-distended, no organomegaly Musculoskeletal: Pulses present and equal in all extremities, no peripheral edema Motor: no focal deficits noted Neurological: CN II-XII grossly intact, no focal motor or sensory deficits noted Skin: Intact with no visualized rashes, left upper extremity midline. PICC line site is clean dry and intact. Psych: Normal affect and mood ED course: 55-year-old male presents with malfunctioning PICC line. Vital signs upon arrival are within acceptable limits. Attempts were made to troubleshoot IV with no success. We are currently after hours for midline placements. Patient will be admitted to observation. Consultation made for IV team for midline reinsertion. - Related Data Home Medications Medication Instructions Recorded Confirmed Allopurinol [Zyloprim] 300 mg PO DAILY 06/04/16 04/28/20 Escitalopram [Lexapro] 10 mg PO DAILY 06/04/16 04/28/20 Lacosamide [Vimpat] 50 mg PO BID 03/25/18 04/28/20 Sildenafil Citrate 100 mg PO DAILY PRN 03/09/20 04/28/20 Ergocalciferol (Vitamin D2) 50,000 unit PO Q7D 04/28/20 04/28/20 [Drisdol] Ibuprofen 800 mg PO TID PRN 04/28/20 04/28/20 Metoprolol Tartrate [Lopressor] 12.5 mg PO BID 04/28/20 04/28/20 Zolpidem Tartrate [Ambien] 10 mg PO HS 04/28/20 04/28/20 Previous Rx's Medication Instructions Recorded Omeprazole 40 mg PO BID #60 cap 07/06/19 oxyCODONE-APAP 7.5-325MG [Percocet 1 tab PO DAILY PRN #10 tab 12/15/19 7.5-325 mg] Acetaminophen Tab [Tylenol] 650 mg PO Q4HR PRN tab 03/27/20 Apixaban [Eliquis] 5 mg PO BID tab 03/27/20 Cyclobenzaprine [Flexeril] 10 mg PO BID PRN #0 03/27/20 Pregabalin [Lyrica] 300 mg PO BID #6 cap 03/27/20 Atorvastatin [Lipitor] 20 mg PO DAILY #30 tab 05/02/20 Allergies Allergy/AdvReac Type Severity Reaction Status Date / Time No Known Allergies Allergy Verified 05/05/20 15:43 Review of Systems ROS Statement: Those systems with pertinent positive or pertinent negative responses have been documented in the HPI. ROS Other: All systems not noted in ROS Statement are negative. Past Medical History Past Medical History: Atrial Fibrillation, COPD, CVA/TIA, GERD/Reflux, H yperlipidemia, Hypertension, Osteoarthritis (OA), Pneumonia, Seizure Disorder, Sleep Apnea/CPAP/BIPAP Additional Past Medical History / Comment(s): hiatal hernia, gout, neuropathy marta legs and feet- states feet are numb, some numbness in legs & tingling in hands., chronic back pain., constipation., dysphagia-hx of EGD with dilation, chronic esophogeal stenosis. Last October 2019 History of Any Multi-Drug Resistant Organisms: ESBL Date of last positivie culture/infection: 04/29/10 ESBL Klebsiella MDRO Source:: Blood Past Surgical History: Back Surgery, Bariatric Surgery, Bowel Resection, Heart Catheterization, Joint Replacement, Orthopedic Surgery Additional Past Surgical History / Comment(s): PAIN PUMP IMPLANTED 07/17/18, HX GASTRIC SLEEVE AND . BILATERAL KNEE arthroscopy, BILATERAL HIP replacement, LEFT SHOULDER replacement, LEFT ACHILES TENDON SX., RIGHT BIG TOE took piece out, echocardiolgram, spinal fusion, EGD with dilation., STATES HX OF PNEUMONIA WITH LUNG SURGERY., REPAIR OF HIATAL HERNIA & LYSIS OF ADHESIONS Past Anesthesia/Blood Transfusion Reactions: No Reported Reaction Past Psychological History: Anxiety, Depression Smoking Status: Former smoker Past Alcohol Use History: None Reported Past Drug Use History: None Reported - Past Family History Father Family Medical History: Cancer Additional Family Medical History / Comment(s): lung Mother Family Medical History: Coronary Artery Disease (CAD), Hypertension General Exam Limitations: no limitations Course Vital Signs 05/05/20 15:38 Temperature 98.2 F Pulse Rate 76 Respiratory 20 Rate Blood Pressure 110/73 O2 Sat by Pulse 91 L Oximetry Disposition Clinical Impression: Need for intravenous access Disposition: ADMITTED IP TO THIS HOSP Condition: Fair Referrals: Eric Ang DO [Primary Care Provider] - 1-2 days Decision Time: 17:04
[2020-05-05] MEDS ORDERED: NALOXONE 0.4 MG/ML 1 ML VIAL IV PRN (17:04)
[2020-05-05 18:20] LABS: African American GFR (CKD) >90 (>60 ml/min/1.73 sqM); Anion Gap 3 mmol/L; Blood Urea Nitrogen 18 mg/dL (9-20); Calcium 8.9 mg/dL (8.4-10.2); Carbon Dioxide 35 mmol/L (22-30); Chloride 102 mmol/L (98-107); Glucose 78 mg/dL (74-99); Non-African American GFR(CKD) >90 (>60 ml/min/1.73 sqM); Potassium 5.3 mmol/L (3.5-5.1); Sodium 140 mmol/L (137-145)
[2020-05-05 18:47] LABS: Anisocytosis Slight; Basophils % (A) 0 %; Eosinophils # (A) 0.5 k/uL (0-0.7); Eosinophils % (A) 7 %; HCT 36.3 % (39.0-53.0); HGB 10.1 gm/dL (13.0-17.5); Hypochromasia Marked; Lymphocytes # (A) 2.8 k/uL (1.0-4.8); Lymphocytes % (A) 42 %; MCH 21.8 pg (25.0-35.0); MCHC 27.9 g/dL (31.0-37.0); MCV 78.4 fL (80.0-100.0); Mean Platelet Volume 7.9; Microcytosis Slight; Monocytes # (A) 0.5 k/uL (0-1.0); Monocytes % (A) 7 %; Neutrophils # (A) 2.7 k/uL (1.3-7.7); Neutrophils % (A) 41 %; Poikilocytosis Slight; RBC 4.64 m/uL (4.30-5.90); RDW 18.5 % (11.5-15.5); WBC 6.6 k/uL (3.8-10.6)
[2020-05-05 20:13] LABS: Platelet Count 210 k/uL (150-450)
[2020-05-05] MEDS ORDERED: CYCLOBENZAPRINE 10 MG TAB PO PRN (20:21)
[2020-05-05] MEDS ORDERED: ACETAMINOPHEN TAB 325 MG TAB PO PRN (20:21)
[2020-05-05] MEDS ORDERED: oxyCODONE-APAP 7.5-325MG 1 EACH TAB PO PRN (20:21)
[2020-05-05] MEDS ORDERED: MEROPENEM 1 GM in SODIUM CHLORIDE 0.9% 100 ML IVPB STA (20:28)
[2020-05-05] MEDS ORDERED: ZOLPIDEM 10 MG TAB PO SCH (21:00)
[2020-05-05] MEDS ORDERED: APIXABAN 5 MG TAB PO SCH (21:00)
[2020-05-05] MEDS: PREGABALIN 100 MG CAP PO SCH (21:28)
[2020-05-05] MEDS: LACOSAMIDE 50 MG TABLET PO SCH (21:28)
[2020-05-05] MEDS: METOPROLOL TARTRATE 12.5 MG TAB PO SCH (21:29)
[2020-05-05] MEDS: PANTOPRAZOLE 40 MG TABLET PO SCH (21:29)
[2020-05-06 03:38] VITALS: PULSE 65
[2020-05-06 07:57] LABS: Anisocytosis Slight; Basophils % (A) 1 %; Eosinophils # (A) 0.4 k/uL (0-0.7); Eosinophils % (A) 8 %; HCT 35.6 % (39.0-53.0); HGB 9.7 gm/dL (13.0-17.5); Hypochromasia Marked; Lymphocytes # (A) 2.4 k/uL (1.0-4.8); Lymphocytes % (A) 50 %; MCH 21.5 pg (25.0-35.0); MCHC 27.1 g/dL (31.0-37.0); MCV 79.4 fL (80.0-100.0); Mean Platelet Volume 7.5; Microcytosis Slight; Monocytes # (A) 0.2 k/uL (0-1.0); Monocytes % (A) 3 %; Neutrophils # (A) 1.7 k/uL (1.3-7.7); Neutrophils % (A) 36 %; Platelet Count 368 k/uL (150-450); Poikilocytosis Slight; RBC 4.48 m/uL (4.30-5.90); RDW 18.5 % (11.5-15.5); WBC 4.8 k/uL (3.8-10.6)
[2020-05-06 08:00] LABS: African American GFR (CKD) >90 (>60 ml/min/1.73 sqM); Anion Gap 6 mmol/L; Blood Urea Nitrogen 20 mg/dL (9-20); Calcium 8.7 mg/dL (8.4-10.2); Carbon Dioxide 33 mmol/L (22-30); Chloride 101 mmol/L (98-107); Glucose 95 mg/dL (74-99); Non-African American GFR(CKD) >90 (>60 ml/min/1.73 sqM); Potassium 5.2 mmol/L (3.5-5.1); Sodium 140 mmol/L (137-145)
[2020-05-06 08:09] LABS: INR 1.1 (<1.2); Prothrombin Time 11.6 sec (9.0-12.0)
[2020-05-06 08:27] VITALS: BP 124/82; RESP 16; TEMP 97.9
[2020-05-06] MEDS: METOPROLOL TARTRATE 12.5 MG TAB PO SCH (08:32)
[2020-05-06] MEDS: LACOSAMIDE 50 MG TABLET PO SCH (08:33)
[2020-05-06] MEDS: PANTOPRAZOLE 40 MG TABLET PO SCH (08:33)
[2020-05-06] MEDS: PREGABALIN 100 MG CAP PO SCH (08:33)
[2020-05-06] MEDS ORDERED: allopurinoL 300 MG TAB PO SCH (09:00)
[2020-05-06] MEDS ORDERED: ESCITALOPRAM 10 MG TAB PO SCH (09:00)
[2020-05-06] MEDS ORDERED: ATORVASTATIN 20 MG TAB PO SCH (09:00)
[2020-05-06] MEDS ORDERED: SODIUM POLYSTYRENE SULFONATE 15 GM/60 ML BOTTLE PO STA (10:14)
--- NOTE | 2020-05-06 20:15 | P.HPIM ---
History of Present Illness H&P Date: 05/06/20 Chief Complaint: Midline malfunction History of presenting complaint: This is a very pleasant 55-year-old patient of Dr. Alexandrea Ang. stable medical conditions include hypertension, , gout, chronic bilateral hip pain, peripheral neuropathy. Atrial fibrillation, gastric [place] [address] Zarate. 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 Dumont. baseline - walk slowly because of peripheral neuropathy. In August 2018 patient had EGD done that showed severe erosive esophagitis with esophageal ulcer. readmitted July 05 underwent balloon dilatation of 10-7 mm done. admitted July 22 and underwent EGD by Dr. Carbajal. Found-severe esophagitis and distal esophageal obstruction. A 10 mm dilatation was carried out. Retained food was extracted. Found to have possible aspiration pneumonia bilateral, treat with IV Zosyn-discharge. Dr. Carbajal discharged on Augmentin on July 26. On December 11 and I&D of the right scrotal abscess. - Shobha's gangrene. In December 2019- small bowel obstruction and recurrent hypoglycemia and was then transferred to [facility]. Patient was just discharged from our hospital May 02 following a diagnosis of ESBL Klebsiella pneumoniae bacteremia possibly from pneumonia. Discharged with midline. Midline was malfunctioning his admitted yesterday evening. Otherwise no other new symptoms. Review of systems: GEN.: Tired EYES: None HEENT: None NECK: None RESPIRATORY: None CARDIOVASCULAR: None GASTROINTESTINAL: None GENITOURINARY: None MUSCULOSKELETAL: None LYMPHATICS: None HEMATOLOGICAL: None PSYCHIATRY: None NEUROLOGICAL: Does use a walker Past medical history to include: Hypertension, gout, peripheral neuropathy, atrial fibrillation, resting sleeve in 2013, gastric gastric fistula repair, severe esophagitis, a saphenous stenosis dilated, Social history: Smoke one half a pack a day for more than 20 years. . No alcohol. Physical examination: VITAL SIGNS: 97.3, 65, 17, 98.86, 93% on nasal cannula GENERAL: BMI 29.2, laying in bed, comfortable EYES: Pupils equal. Conjunctiva normal. HEENT: External appearance of nose and ears normal, oral cavity grossly normal. NECK: JVD not raised; masses not palpable. HEART: First and second heart sounds are normal; no edema. LUNGS: Respiratory rate normal, decreased breath sounds. ABDOMEN: Soft, nontender, liver spleen not palpable, no masses palpable. Left abdominal wall has a pain pump PSYCH: Alert and oriented x3; mood and affect normal. NEUROLOGICAL: Cranial nerves grossly intact; no facial asymmetry, power and sensation grossly intact. LYMPHATICS: No lymph nodes palpable in the axilla and neck INVESTIGATIONS, reviewed in the clinical context: White count 4.2 hemoglobin 9.7 platelets 365 creatinine 0.85 Assessment: -Malfunctioning midline. -Troponin leak from hemodynamic mismatch. No acute coronary syndrome. -Recent pneumonia with positive blood cultures with Klebsiella pneumoniae ESBL -recurrent esophageal stricture with repeat dilatation -History of paraesophageal repair and history of sleeve gastrectomy -Essential hypertension -Primary osteoarthritis -Gout -Idiopathic peripheral neuropathy -Chronic back pain with the pain pump -Anemia of chronic disease -Paroxysmal atrial fibrillation Plan: Continue home medications. We'll try to arrange for a midline or other IV access. Discussed with the patient. Past Medical History Past Medical History: Atrial Fibrillation, COPD, CVA/TIA, GERD/Reflux, Hyperlipidemia, Hypertension, Osteoarthritis (OA), Pneumonia, Seizure Disorder, Sleep Apnea/CPAP/BIPAP Additional Past Medical History / Comment(s): hiatal hernia, gout, neuropathy marta legs and feet- states feet are numb, some numbness in legs & tingling in hands., chronic back pain., constipation., dysphagia-hx of EGD with dilation, chronic esophogeal stenosis. Last October 2019 History of Any Multi-Drug Resistant Organisms: ESBL Date of last positivie culture/infection: 04/29/10 ESBL Klebsiella MDRO Source:: Blood Past Surgical History: Back Surgery, Bariatric Surgery, Bowel Resection, Heart Catheterization, Joint Replacement, Orthopedic Surgery Additional Past Surgical History / Comment(s): PAIN PUMP IMPLANTED 07/17/18, HX GASTRIC SLEEVE AND . BILATERAL KNEE arthroscopy, BILATERAL HIP replacement, LEFT SHOULDER replacement, LEFT ACHILES TENDON SX., RIGHT BIG TOE took piece out, echocardiolgram, spinal fusion, EGD with dilation., STATES HX OF PNEUMONIA WITH LUNG SURGERY., REPAIR OF HIATAL HERNIA & LYSIS OF ADHESIONS Past Anesthesia/Blood Transfusion Reactions: No Reported Reaction Past Psychological History: Anxiety, Depression Smoking Status: Former smoker Past Alcohol Use History: None Reported Additional Past Alcohol Use History / Comment(s): quit smoking 2017, smoked since age 21, 1 PPD Past Drug Use History: None Reported - Past Family History Father Family Medical History: Cancer Additional Family Medical History / Comment(s): lung Mother Family Medical History: Coronary Artery Disease (CAD), Hypertension Medications and Allergies Home Medications Medication Instructions Recorded Confirmed Type Allopurinol [Zyloprim] 300 mg PO DAILY 06/04/16 05/05/20 History Escitalopram [Lexapro] 10 mg PO DAILY 06/04/16 05/05/20 History Lacosamide [Vimpat] 50 mg PO BID 03/25/18 05/05/20 History Omeprazole 40 mg PO BID #60 cap 07/06/19 05/05/20 Rx oxyCODONE-APAP 7.5-325MG [Percocet 1 tab PO DAILY PRN #10 tab 12/15/19 05/05/20 Rx 7.5-325 mg] Sildenafil Citrate 100 mg PO DAILY PRN 03/09/20 05/05/20 History Acetaminophen Tab [Tylenol] 650 mg PO Q4HR PRN tab 03/27/20 05/05/20 Rx Apixaban [Eliquis] 5 mg PO BID tab 03/27/20 05/05/20 Rx Cyclobenzaprine [Flexeril] 10 mg PO BID PRN #0 03/27/20 05/05/20 Rx Pregabalin [Lyrica] 300 mg PO BID #6 cap 03/27/20 05/05/20 Rx Ergocalciferol (Vitamin D2) 50,000 unit PO Q7D 04/28/20 05/05/20 History [Drisdol] Ibuprofen 800 mg PO TID PRN 04/28/20 05/05/20 History Metoprolol Tartrate [Lopressor] 12.5 mg PO BID 04/28/20 05/05/20 History Zolpidem Tartrate [Ambien] 10 mg PO HS 04/28/20 05/05/20 History Atorvastatin [Lipitor] 20 mg PO DAILY #30 tab 05/02/20 05/05/20 Rx Allergies Allergy/AdvReac Type Severity Reaction Status Date / Time No Known Allergies Allergy Verified 05/05/20 17:54 Physical Exam Vitals: Vital Signs Temp Pulse Pulse Resp BP BP Pulse Ox 05/06/20 08:24 97.9 F 65 16 124/82 88 L 05/06/20 03:00 65 17 05/06/20 02:40 97.3 F L 65 17 98/86 93 L 05/05/20 19:35 63 18 05/05/20 19:10 97.4 F L 63 18 130/83 91 L 05/05/20 18:11 98.2 F 78 18 115/77 92 L 05/05/20 15:38 98.2 F 76 20 110/73 91 L Intake and Output 05/05/20 05/06/20 05/06/20 22:59 06:59 14:59 Intake Total 480 300 Balance 480 300 Intake: Oral 480 Other 300 Other: Voiding Method Toilet # Voids 1 Weight 108.862 kg Results CBC & Chem 7: 05/06/20 07:19 05/06/20 07:19 Labs: Abnormal Lab Results - Last 24 Hours (Table) 05/05/20 05/05/20 05/06/20 Range/Units 18:03 18:03 07:19 Hgb 10.1 L 9.7 L (13.0-17.5) gm/dL Hct 36.3 L 35.6 L (39.0-53.0) % MCV 78.4 L 79.4 L (80.0-100.0) fL MCH 21.8 L 21.5 L (25.0-35.0) pg MCHC 27.9 L 27.1 L (31.0-37.0) g/dL RDW 18.5 H 18.5 H (11.5-15.5) % Potassium 5.3 H (3.5-5.1) mmol/L Carbon Dioxide 35 H (22-30) mmol/L 05/06/20 Range/Units 07:19 Hgb (13.0-17.5) gm/dL Hct (39.0-53.0) % MCV (80.0-100.0) fL MCH (25.0-35.0) pg MCHC (31.0-37.0) g/dL RDW (11.5-15.5) % Potassium 5.2 H (3.5-5.1) mmol/L Carbon Dioxide 33 H (22-30) mmol/L Thrombosis Risk Factor Assmnt - Choose All That Apply Each Factor Represents 1 point: Abnormal pulmonary function (COPD), Age 41-60 years, Obesity (BMI >25) Other Risk Factors: No Other congenital or acquired thrombophilia - If yes, enter type in comment: No Thrombosis Risk Factor Assessment Total Risk Factor Score: 3 Thrombosis Risk Factor Assessment Level: Moderate Risk
--- NOTE | 2020-05-06 20:20 | P.DS ---
Providers Date of admission: 05/05/20 17:07 Expected date of discharge: 05/06/20 Attending physician: Chavez Pedraza Primary care physician: Eric Ang [facility] Course: Chief Complaint: Midline malfunction History of presenting complaint: This is a very pleasant 55-year-old patient of Dr. Alexandrea Ang. stable medical conditions include hypertension, , gout, chronic bilateral hip pain, peripheral neuropathy. Atrial fibrillation, gastric [place] [address] Zarate. 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 Dumont. baseline - walk slowly because of peripheral neuropathy. In August 2018 patient had EGD done that showed severe erosive esophagitis with esophageal ulcer. readmitted July 05 underwent balloon dilatation of 10-7 mm done. admitted July 22 and underwent EGD by Dr. Carbajal. Found-severe esophagitis and distal esophageal obstruction. A 10 mm dilatation was carried out. Retained food was extracted. Found to have possible aspiration pneumonia bilateral, treat with IV Zosyn-discharge. Dr. Carbajal discharged on Augmentin on July 26. On December 11 and I&D of the right scrotal abscess. - Shobha's gangrene. In December 2019- small bowel obstruction and recurrent hypoglycemia and was then transferred to [facility]. Patient was just discharged from our hospital May 02 following a diagnosis of ESBL Klebsiella pneumoniae bacteremia possibly from pneumonia. Discharged with midline. Midline was malfunctioning his admitted yesterday evening. Otherwise no other new symptoms. Discussed with Dr. Jeronimo, senior medical billing specialist. Midline or PICC line will not be able to placed over the weekend. Discussed with ER charge nurse that the patient be sent home with a peripheral IV. Patient may return to the ER for new IV line if the home care nurse cannot do the same. Discussed with patient's nurse Tony and also this was conveyed to kirstin the on-call caseworker protective services. Patient to complete the course of ertapenem at home. Patient to keep his follow-up appointments as per 3 days ago Discharge planning more than 35 minutes. Physical examination: VITAL SIGNS: 97.3, 65, 17, 98.86, 93% on nasal cannula GENERAL: BMI 29.2, laying in bed, comfortable EYES: Pupils equal. Conjunctiva normal. HEENT: External appearance of nose and ears normal, oral cavity grossly normal. NECK: JVD not raised; masses not palpable. HEART: First and second heart sounds are normal; no edema. LUNGS: Respiratory rate normal, decreased breath sounds. ABDOMEN: Soft, nontender, liver spleen not palpable, no masses palpable. Left abdominal wall has a pain pump PSYCH: Alert and oriented x3; mood and affect normal. NEUROLOGICAL: Cranial nerves grossly intact; no facial asymmetry, power and sensation grossly intact. LYMPHATICS: No lymph nodes palpable in the axilla and neck INVESTIGATIONS, reviewed in the clinical context: White count 4.8 hemoglobin 9.7 creatinine 0.85 Assessment: -Malfunctioning midline. -Troponin leak from hemodynamic mismatch. No acute coronary syndrome. -Recent pneumonia with positive blood cultures with Klebsiella pneumoniae ESBL -recurrent esophageal stricture with repeat dilatation -History of paraesophageal repair and history of sleeve gastrectomy -Essential hypertension -Primary osteoarthritis -Gout -Idiopathic peripheral neuropathy -Chronic back pain with the pain pump -Anemia of chronic disease -Paroxysmal atrial fibrillation Disposition: Home Patient Condition at Discharge: Stable Plan - Discharge Summary New Discharge Prescriptions: Continue Escitalopram [Lexapro] 10 mg PO DAILY Allopurinol [Zyloprim] 300 mg PO DAILY Lacosamide [Vimpat] 50 mg PO BID Omeprazole 40 mg PO BID #60 cap oxyCODONE-APAP 7.5-325MG [Percocet 7.5-325 mg] 1 tab PO DAILY PRN #10 tab PRN Reason: Pain Sildenafil Citrate 100 mg PO DAILY PRN PRN Reason: ED Apixaban [Eliquis] 5 mg PO BID tab Acetaminophen Tab [Tylenol] 650 mg PO Q4HR PRN tab PRN Reason: Fever And/Or Mild Pain Cyclobenzaprine [Flexeril] 10 mg PO BID PRN #0 PRN Reason: Spasms Pregabalin [Lyrica] 300 mg PO BID #6 cap Metoprolol Tartrate [Lopressor] 12.5 mg PO BID Zolpidem Tartrate [Ambien] 10 mg PO HS Ergocalciferol (Vitamin D2) [Drisdol] 50,000 unit PO Q7D Ibuprofen 800 mg PO TID PRN PRN Reason: Pain Atorvastatin [Lipitor] 20 mg PO DAILY #30 tab Discharge Medication List Allopurinol [Zyloprim] 300 mg PO DAILY 06/04/16 [History] Escitalopram [Lexapro] 10 mg PO DAILY 06/04/16 [History] Lacosamide [Vimpat] 50 mg PO BID 03/25/18 [History] Omeprazole 40 mg PO BID #60 cap 07/06/19 [Rx] oxyCODONE-APAP 7.5-325MG [Percocet 7.5-325 mg] 1 tab PO DAILY PRN #10 tab 12/15/19 [Rx] Sildenafil Citrate 100 mg PO DAILY PRN 03/09/20 [History] Acetaminophen Tab [Tylenol] 650 mg PO Q4HR PRN tab 03/27/20 [Rx] Apixaban [Eliquis] 5 mg PO BID tab 03/27/20 [Rx] Cyclobenzaprine [Flexeril] 10 mg PO BID PRN #0 03/27/20 [Rx] Pregabalin [Lyrica] 300 mg PO BID #6 cap 03/27/20 [Rx] Ergocalciferol (Vitamin D2) [Drisdol] 50,000 unit PO Q7D 04/28/20 [History] Ibuprofen 800 mg PO TID PRN 04/28/20 [History] Metoprolol Tartrate [Lopressor] 12.5 mg PO BID 04/28/20 [History] Zolpidem Tartrate [Ambien] 10 mg PO HS 04/28/20 [History] Atorvastatin [Lipitor] 20 mg PO DAILY #30 tab 05/02/20 [Rx] Follow up Appointment(s)/Referral(s): [facility], [NON-STAFF] - Eric Ang DO [Primary Care Provider] - 1-2 days [facility], [REFERRING] - Activity/Diet/Wound Care/Special Instructions: Replace peripheral IV on Friday by home care. If unable to replace IV on Friday return to ER to have the peripheral IV replaced Keep all other appointments as before. Watch for signs/symptoms of defective IV, stop using the IV and call the home health care nurse if you notice any of the followin) Redness around insertion site 2) Swelling in the arm around IV insertion site 3) Pain with IV fluid administration Discharge Disposition: HOME SELF-CARE
== END 2020-05-06 14:20 | disposition home or self-care (01) ==
LOC: EC 15:31 → 1SOBS 17:07
PROVIDERS: ADMIT Hospitalist; ATTEND Hospitalist
DX: T82.898A Other specified complication of vascular prosthetic devices, implants and grafts, initial encounter (principal); J15.0 Pneumonia due to Klebsiella pneumoniae; I48.0 Paroxysmal atrial fibrillation; J44.9 Chronic obstructive pulmonary disease, unspecified; Z86.73 Personal history of transient ischemic attack (TIA), and cerebral infarction without residual deficits; K21.9 Gastro-esophageal reflux disease without esophagitis; E78.5 Hyperlipidemia, unspecified; I10 Essential (primary) hypertension; M19.90 Unspecified osteoarthritis, unspecified site; Z87.01 Personal history of pneumonia (recurrent); G40.909 Epilepsy, unspecified, not intractable, without status epilepticus; G47.30 Sleep apnea, unspecified; Z99.89 Dependence on other enabling machines and devices; M10.9 Gout, unspecified; G89.29 Other chronic pain; M54.9 Dorsalgia, unspecified; K59.00 Constipation, unspecified; Z86.19 Personal history of other infectious and parasitic diseases; R20.2 Paresthesia of skin; R20.0 Anesthesia of skin; Z98.84 Bariatric surgery status; Z90.49 Acquired absence of other specified parts of digestive tract; Z96.643 Presence of artificial hip joint, bilateral; Z96.612 Presence of left artificial shoulder joint; Z98.1 Arthrodesis status; Z96.89 Presence of other specified functional implants; Z98.890 Other specified postprocedural states; F41.9 Anxiety disorder, unspecified; F32.9 Major depressive disorder, single episode, unspecified; Z87.891 Personal history of nicotine dependence; Z80.1 Family history of malignant neoplasm of trachea, bronchus and lung; Z82.49 Family history of ischemic heart disease and other diseases of the circulatory system; Z79.01 Long term (current) use of anticoagulants; Z79.1 Long term (current) use of non-steroidal anti-inflammatories (NSAID); Z79.891 Long term (current) use of opiate analgesic; Z79.899 Other long term (current) drug therapy; G60.9 Hereditary and idiopathic neuropathy, unspecified; D63.8 Anemia in other chronic diseases classified elsewhere
CPT/HCPCS: 96365; 96366 ×2; 96375; 99284; 80048 ×2; 85025 ×2; 85610; G0378 ×2; J2185; J1642

== ENCOUNTER → 2020-05-11 | Day surgery (SDC) | payer MEDICARE, OTHER ==
[2020-05-09 15:29] VITALS: BMI 29.2
[~2020-05-11] MED LIST changes: -LIDOCAINE 1% 20 ML VIAL (10MG/ML) FOR IV START INTRADERMA PRN; +LIDOCAINE 1% INJ 10MG/ML (20 ML MDV) SQ ONE
[2020-05-11 14:02] VITALS: BP 136/70; PULSE 80; RESP 16; TEMP 98.1
--- NOTE | 2020-05-11 14:32 | IR ---
PICC LINE PLACEMENT: HISTORY: Infection requiring long-term antibiotic therapy PROCEDURE: Ultrasound and fluoroscopic guidance of PICC line placement. COMPLICATIONS: None ANESTHESIA: 1. 1% Lidocaine locally. FINDINGS/TECHNIQUE: The procedure was explained to the patient. The risks, complications, benefits and alternatives were discussed and any questions were answered. Informed consent was obtained. The patient was placed supine on the fluoroscopic table and prepped and draped in the usual sterile fash ion. Utilizing a 21 gauge needle and sonographic and fluoroscopic guidance, access in the right bas ilic vein was achieved and there is placement of a 0.018 guidewire. The vein is patent. A 4-F sheat h was placed over the guidewire. The guidewire and dilator were removed and a 4-F. PICC line was ashley tiffanie through the sheath with the tip at the level of the SVC. The sheath was removed, the catheter wa s flushed and sutured into position. The patient was stable throughout the procedure and remained st able upon discharge from the Department of Radiology. The vein puncture was patent under ultrasound. A montiel scale image was obtained to document patency of the vein punctured. All elements of the maximal barrier technique were utilized. FLUOROSCOPY TIME: 0.2 minutes, one image submitted IMPRESSION: Successful PICC line placement under ultrasound and fluoroscopic guidance.
== END ==
LOC: CATHCVL 13:31
PROVIDERS: ATTEND Internal Medicine Infectious Disease
DX: Z45.2 Encounter for adjustment and management of vascular access device (principal); J11.08 Influenza due to unidentified influenza virus with specified pneumonia; J15.0 Pneumonia due to Klebsiella pneumoniae; I10 Essential (primary) hypertension; M10.9 Gout, unspecified; I48.91 Unspecified atrial fibrillation; Z98.84 Bariatric surgery status; K20.90 Esophagitis, unspecified without bleeding; M19.90 Unspecified osteoarthritis, unspecified site; F41.9 Anxiety disorder, unspecified; F32.9 Major depressive disorder, single episode, unspecified; Z87.891 Personal history of nicotine dependence; G60.8 Other hereditary and idiopathic neuropathies; J44.9 Chronic obstructive pulmonary disease, unspecified; Z86.73 Personal history of transient ischemic attack (TIA), and cerebral infarction without residual deficits; K21.9 Gastro-esophageal reflux disease without esophagitis; E78.5 Hyperlipidemia, unspecified; G40.909 Epilepsy, unspecified, not intractable, without status epilepticus; G47.30 Sleep apnea, unspecified; Z99.89 Dependence on other enabling machines and devices; G89.29 Other chronic pain; M54.9 Dorsalgia, unspecified; K22.2 Esophageal obstruction; Z96.643 Presence of artificial hip joint, bilateral; Z96.612 Presence of left artificial shoulder joint; Z98.1 Arthrodesis status; Z96.89 Presence of other specified functional implants; Z98.890 Other specified postprocedural states; Z80.1 Family history of malignant neoplasm of trachea, bronchus and lung; Z82.49 Family history of ischemic heart disease and other diseases of the circulatory system; Z79.01 Long term (current) use of anticoagulants; Z79.891 Long term (current) use of opiate analgesic; Z79.899 Other long term (current) drug therapy
CPT/HCPCS: 36573; C1751; C1769; J2001

== ENCOUNTER 2020-05-26 11:48 | Inpatient (IN) | payer MEDICARE, OTHER ==
[2020-05-26] MEDS ORDERED: ALBUTEROL HFA INHALER INHALATION STA (12:08)
[2020-05-26] MEDS ORDERED: ACETAMINOPHEN TAB 500 MG TAB PO STA (12:29)
--- NOTE | 2020-05-26 12:29 | ED ---
SOB HPI - General Chief Complaint: Shortness of Breath Stated Complaint: Covid Time Seen by Provider: 05/26/20 11:48 Source: patient, RN/MD, RN notes reviewed, old records reviewed Mode of arrival: EMS Limitations: no limitations - History of Present Illness Initial Comments: This is a 55-year-old male with history of recent admission for pneumonia and was on antibiotics for quite a period time who presents from home by EMS with complaints of fever cough weakness today. His temperature 100.8 at home most notably however the visiting nurse found that he had a pulse oximetry reading of 75% on room air. He's had loss of taste and smell for about a week. No other complaints at this time he has been on antibiotics. MD Complaint: shortness of breath - Related Data Home Medications Medication Instructions Recorded Confirmed Allopurinol [Zyloprim] 300 mg PO DAILY 06/04/16 05/26/20 Escitalopram [Lexapro] 10 mg PO DAILY 06/04/16 05/26/20 Lacosamide [Vimpat] 50 mg PO BID 03/25/18 05/26/20 Sildenafil Citrate 100 mg PO DAILY PRN 03/09/20 05/26/20 Ergocalciferol (Vitamin D2) 50,000 unit PO MO 04/28/20 05/26/20 [Drisdol] Ibuprofen 800 mg PO TID PRN 04/28/20 05/26/20 Metoprolol Tartrate [Lopressor] 12.5 mg PO BID 04/28/20 05/26/20 Zolpidem Tartrate [Ambien] 10 mg PO HS 04/28/20 05/26/20 Furosemide [Lasix] 20 mg PO DAILY 05/09/20 05/26/20 Naloxone HCl [Narcan] 1 spray NASAL DIRECTED PRN 05/26/20 05/26/20 lisinopriL [Zestril] 2.5 mg PO DAILY 05/26/20 05/26/20 Previous Rx's Medication Instructions Recorded Omeprazole 40 mg PO BID #60 cap 07/06/19 oxyCODONE-APAP 7.5-325MG [Percocet 1 tab PO DAILY PRN #10 tab 12/15/19 7.5-325 mg] Acetaminophen Tab [Tylenol] 650 mg PO Q4HR PRN tab 03/27/20 Cyclobenzaprine [Flexeril] 10 mg PO BID PRN #0 03/27/20 Pregabalin [Lyrica] 300 mg PO BID #6 cap 03/27/20 Atorvastatin [Lipitor] 20 mg PO DAILY #30 tab 05/02/20 Allergies Allergy/AdvReac Type Severity Reaction Status Date / Time No Known Allergies Allergy Verified 05/26/20 13:19 Review of Systems ROS Statement: Those systems with pertinent positive or pertinent negative responses have been documented in the HPI. ROS Other: All systems not noted in ROS Statement are negative. Past Medical History Past Medical History: Atrial Fibrillation, COPD, CVA/TIA, GERD/Reflux, Hyperlipidemia, Hypertension, Osteoarthritis (OA), Pneumonia, Seizure Disorder, Sleep Apnea/CPAP/BIPAP Additional Past Medical History / Comment(s): hiatal hernia, gout, neuropathy marta legs and feet- states feet are numb, some numbness in legs & tingling in hands., chronic back pain., constipation., dysphagia-hx of EGD with dilation, chronic esophogeal stenosis. Last October 2019, states frequent pneumonia & not sure why, recent admission for History of Any Multi-Drug Resistant Organisms: ESBL Date of last positivie culture/infection: 04/29/20 ESBL Klebsiella MDRO Source:: Blood Past Surgical History: Back Surgery, Bariatric Surgery, Bowel Resection, Heart Catheterization, Joint Replacement, Orthopedic Surgery Additional Past Surgical History / Comment(s): PAIN PUMP IMPLANTED 07/17/18, HX GASTRIC SLEEVE AND . BILATERAL KNEE arthroscopy, BILATERAL HIP replacement, LEFT SHOULDER replacement, LEFT ACHILES TENDON SX., RIGHT BIG TOE took piece out, echocardiolgram, spinal fusion, EGD with dilation., STATES HX OF PNEUMONIA WITH LUNG SURGERY., REPAIR OF HIATAL HERNIA & LYSIS OF ADHESIONS Past Anesthesia/Blood Transfusion Reactions: No Reported Reaction Past Psychological History: Anxiety, Depression Smoking Status: Former smoker Past Alcohol Use History: None Reported Past Drug Use History: None Reported - Past Family History Father Family Medical History: Cancer Additional Family Medical History / Comment(s): lung General Exam - General Exam Comments Initial Comments: This is a well-developed well-nourished awake alert oriented times 3 male Limitations: no limitations General appearance: alert, in no apparent distress Head exam: Present: atraumatic, normocephalic, normal inspection Eye exam: Present: normal appearance, PERRL, EOMI. Absent: scleral icterus, conjunctival injection, periorbital swelling ENT exam: Present: normal exam, mucous membranes moist Neck exam: Present: normal inspection. Absent: tenderness, meningismus, lymphadenopathy Respiratory exam: Present: decreased breath sounds. Absent: respiratory distress, wheezes, rales, rhonchi, stridor Cardiovascular Exam: Present: normal rhythm, tachycardia, normal heart sounds. Absent: systolic murmur, diastolic murmur, rubs, gallop, clicks GI/Abdominal exam: Present: soft, normal bowel sounds. Absent: distended, tenderness, guarding, rebound, rigid Extremities exam: Present: normal inspection, full ROM, normal capillary refill. Absent: tenderness, pedal edema, joint swelling, calf tenderness Back exam: Present: normal inspection Neurological exam: Present: alert, oriented X3, CN II-XII intact Psychiatric exam: Present: normal affect, normal mood Skin exam: Present: warm, dry, intact, normal color. Absent: rash Course Vital Signs 05/26/20 05/26/20 05/26/20 12:04 12:08 13:44 Temperature 101 F H 99.3 F Pulse Rate 121 H 110 H Respiratory 22 22 Rate Blood Pressure 98/63 99/73 O2 Sat by Pulse 68 L 96 96 Oximetry Medical Decision Making - Medical Decision Making I did discuss the findings with patient and with Dr. Pedraza who did see the patient in the emergency department. Patient be admitted his initial covid 19 test was negative for over clinically does appear to be demonstrating evidence of this. He will be admitted - Lab Data Result diagrams: 05/26/20 12:14 05/26/20 12:14 Lab Results 05/26/20 05/26/20 05/26/20 Range/Units 12:14 12:14 12:14 WBC 9.0 (3.8-10.6) k/uL RBC 4.28 L (4.30-5.90) m/uL Hgb 9.4 L (13.0-17.5) gm/dL Hct 32.9 L (39.0-53.0) % MCV 76.9 L (80.0-100.0) fL MCH 22.0 L (25.0-35.0) pg MCHC 28.6 L (31.0-37.0) g/dL RDW 19.4 H (11.5-15.5) % Plt Count 123 L (150-450) k/uL MPV 7.6 Neutrophils % 81 % Lymphocytes % 8 % Monocytes % 5 % Eosinophils % 4 % Basophils % 0 % Neutrophils # 7.3 (1.3-7.7) k/uL Lymphocytes # 0.7 L (1.0-4.8) k/uL Monocytes # 0.5 (0-1.0) k/uL Eosinophils # 0.4 (0-0.7) k/uL Basophils # 0.0 (0-0.2) k/uL Hypochromasia Marked Poikilocytosis Slight Anisocytosis Slight Microcytosis Moderate PT 12.5 H (9.0-12.0) sec INR 1.2 H (<1.2) APTT 28.4 (22.0-30.0) sec D-Dimer 1.71 H (<0.60) mg/L FEU Sodium 142 (137-145) mmol/L Potassium 4.0 (3.5-5.1) mmol/L Chloride 105 (98-107) mmol/L Carbon Dioxide 31 H (22-30) mmol/L Anion Gap 6 mmol/L BUN 19 (9-20) mg/dL Creatinine 0.93 (0.66-1.25) mg/dL Est GFR (CKD-EPI)AfAm >90 (>60 ml/min/1.73 sqM) Est GFR (CKD-EPI)NonAf >90 (>60 ml/min/1.73 sqM) Glucose 127 H (74-99) mg/dL Plasma Lactic Acid Suresh (0.7-2.0) mmol/L Calcium 8.3 L (8.4-10.2) mg/dL Magnesium 1.6 (1.6-2.3) mg/dL Total Bilirubin 0.8 (0.2-1.3) mg/dL AST 25 (17-59) U/L ALT 11 (4-49) U/L Alkaline Phosphatase 82 (38-126) U/L Lactate Dehydrogenase 577 (313-618) U/L Creatine Kinase 48 L (55-170) U/L Troponin I (0.000-0.034) ng/mL C-Reactive Protein 65.6 H (<10.0) mg/L NT-Pro-B Natriuret Pep pg/mL Total Protein 7.2 (6.3-8.2) g/dL Albumin 3.4 L (3.5-5.0) g/dL Coronavirus (PCR) (Not Detectd) 05/26/20 05/26/20 05/26/20 Range/Units 12:14 12:14 12:14 WBC (3.8-10.6) k/uL RBC (4.30-5.90) m/uL Hgb (13.0-17.5) gm/dL Hct (39.0-53.0) % MCV (80.0-100.0) fL MCH (25.0-35.0) pg MCHC (31.0-37.0) g/dL RDW (11.5-15.5) % Plt Count (150-450) k/uL MPV Neutrophils % % Lymphocytes % % Monocytes % % Eosinophils % % Basophils % % Neutrophils # (1.3-7.7) k/uL Lymphocytes # (1.0-4.8) k/uL Monocytes # (0-1.0) k/uL Eosinophils # (0-0.7) k/uL Basophils # (0-0.2) k/uL Hypochromasia Poikilocytosis Anisocytosis Microcytosis PT (9.0-12.0) sec INR (<1.2) APTT (22.0-30.0) sec D-Dimer (<0.60) mg/L FEU Sodium (137-145) mmol/L Potassium (3.5-5.1) mmol/L Chloride (98-107) mmol/L Carbon Dioxide (22-30) mmol/L Anion Gap mmol/L BUN (9-20) mg/dL Creatinine (0.66-1.25) mg/dL Est GFR (CKD-EPI)AfAm (>60 ml/min/1.73 sqM) Est GFR (CKD-EPI)NonAf (>60 ml/min/1.73 sqM) Glucose (74-99) mg/dL Plasma Lactic Acid Suresh 2.3 H* (0.7-2.0) mmol/L Calcium (8.4-10.2) mg/dL Magnesium (1.6-2.3) mg/dL Total Bilirubin (0.2-1.3) mg/dL AST (17-59) U/L ALT (4-49) U/L Alkaline Phosphatase (38-126) U/L Lactate Dehydrogenase (313-618) U/L Creatine Kinase (55-170) U/L Troponin I 0.029 (0.000-0.034) ng/mL C-Reactive Protein (<10.0) mg/L NT-Pro-B Natriuret Pep 814 pg/mL Total Protein (6.3-8.2) g/dL Albumin (3.5-5.0) g/dL Coronavirus (PCR) (Not Detectd) 05/26/20 Range/Units 12:14 WBC (3.8-10.6) k/uL RBC (4.30-5.90) m/uL Hgb (13.0-17.5) gm/dL Hct (39.0-53.0) % MCV (80.0-100.0) fL MCH (25.0-35.0) pg MCHC (31.0-37.0) g/dL RDW (11.5-15.5) % Plt Count (150-450) k/uL MPV Neutrophils % % Lymphocytes % % Monocytes % % Eosinophils % % Basophils % % Neutrophils # (1.3-7.7) k/uL Lymphocytes # (1.0-4.8) k/uL Monocytes # (0-1.0) k/uL Eosinophils # (0-0.7) k/uL Basophils # (0-0.2) k/uL Hypochromasia Poikilocytosis Anisocytosis Microcytosis PT (9.0-12.0) sec INR (<1.2) APTT (22.0-30.0) sec D-Dimer (<0.60) mg/L FEU Sodium (137-145) mmol/L Potassium (3.5-5.1) mmol/L Chloride (98-107) mmol/L Carbon Dioxide (22-30) mmol/L Anion Gap mmol/L BUN (9-20) mg/dL Creatinine (0.66-1.25) mg/dL Est GFR (CKD-EPI)AfAm (>60 ml/min/1.73 sqM) Est GFR (CKD-EPI)NonAf (>60 ml/min/1.73 sqM) Glucose (74-99) mg/dL Plasma Lactic Acid Suresh (0.7-2.0) mmol/L Calcium (8.4-10.2) mg/dL Magnesium (1.6-2.3) mg/dL Total Bilirubin (0.2-1.3) mg/dL AST (17-59) U/L ALT (4-49) U/L Alkaline Phosphatase (38-126) U/L Lactate Dehydrogenase (313-618) U/L Creatine Kinase (55-170) U/L Troponin I (0.000-0.034) ng/mL C-Reactive Protein (<10.0) mg/L NT-Pro-B Natriuret Pep pg/mL Total Protein (6.3-8.2) g/dL Albumin (3.5-5.0) g/dL Coronavirus (PCR) Not Detected (Not Detectd) - EKG Data -: EKG Interpreted by Me EKG shows normal: sinus rhythm EKG Comments: Sinus tachycardia rate 116 160 QRS duration 106 daily since QTC 342/475 - Radiology Data Radiology results: report reviewed (I did review the imaging and report evidence of increased pulmonary vascular markings.), image reviewed Critical Care Time Critical Care Time: Yes Total Critical Care Time: 31 Critical Care Time: Critical care time includes initial presentation with history physical labs x- rays review of old charting was available reevaluation the patient discussed with the patient regarding findings discussed with the main physician admission orders and documentation of the above Disposition Clinical Impression: Pneumonia, Hypoxemia, Febrile illness, acute, Elevated d-dimer, COVID-19 determined by clinical diagnostic criteria Disposition: ADMITTED IP TO THIS HOSP Condition: Fair Referrals: Eric Ang DO [Primary Care Provider] - 1-2 days
[2020-05-26] MEDS ORDERED: SODIUM CHLORIDE 0.9% 1,000 ML IV STA (12:30)
[2020-05-26 12:48] LABS: Anisocytosis Slight; Basophils % (A) 0 %; Eosinophils # (A) 0.4 k/uL (0-0.7); Eosinophils % (A) 4 %; HCT 32.9 % (39.0-53.0); HGB 9.4 gm/dL (13.0-17.5); Hypochromasia Marked; Lymphocytes # (A) 0.7 k/uL (1.0-4.8); Lymphocytes % (A) 8 %; MCHC 28.6 g/dL (31.0-37.0); MCV 76.9 fL (80.0-100.0); Mean Platelet Volume 7.6; Microcytosis Moderate; Monocytes # (A) 0.5 k/uL (0-1.0); Monocytes % (A) 5 %; Neutrophils # (A) 7.3 k/uL (1.3-7.7); Neutrophils % (A) 81 %; Platelet Count 123 k/uL (150-450); Poikilocytosis Slight; RBC 4.28 m/uL (4.30-5.90); RDW 19.4 % (11.5-15.5)
[2020-05-26 13:02] LABS: ALT 11 U/L (4-49); AST 25 U/L (17-59); African American GFR (CKD) >90 (>60 ml/min/1.73 sqM); Albumin 3.4 g/dL (3.5-5.0); Alkaline Phosphatase 82 U/L (38-126); Anion Gap 6 mmol/L; Blood Urea Nitrogen 19 mg/dL (9-20); C Reactive Protein 65.6 mg/L (<10.0); Calcium 8.3 mg/dL (8.4-10.2); Carbon Dioxide 31 mmol/L (22-30); Chloride 105 mmol/L (98-107); Creatine Kinase 48 U/L (55-170); Glucose 127 mg/dL (74-99); LDH 577 U/L (313-618); Magnesium 1.6 mg/dL (1.6-2.3); Non-African American GFR(CKD) >90 (>60 ml/min/1.73 sqM); Sodium 142 mmol/L (137-145); Total Bilirubin 0.8 mg/dL (0.2-1.3); Total Protein 7.2 g/dL (6.3-8.2)
--- NOTE | 2020-05-26 13:05 | XR ---
EXAMINATION TYPE: XR chest 1V portable DATE OF EXAM: 05/26/2020 COMPARISON: Chest x-ray May 01, 2020. CTA chest March 20, 2020. HISTORY: Dyspnea. TECHNIQUE: Single AP portable frontal upright view of the chest is obtained. FINDINGS: Postsurgical change cervical spine partially imaged. Surgical changes near the surgical th oracic junction redemonstrated. Surgical change left humeral head noted. Patient more rotated to righ t on current study. Cardiac silhouette size stable and within normal limits. Background chronic paren chymal changes with new central opacities bilaterally. No pleural effusion or pneumothorax seen. IMPRESSION: Correlate for CHF exacerbation or fluid overload state as there is new moderate to sever e central edema and/or infiltrates present.
[2020-05-26 13:14] LABS: INR 1.2 (<1.2); Partial Thromboplastin Time 28.4 sec (22.0-30.0); Prothrombin Time 12.5 sec (9.0-12.0)
[2020-05-26 13:28] LABS: D-Dimer 1.71 mg/L FEU (<0.60)
[2020-05-26] MEDS ORDERED: CYCLOBENZAPRINE 10 MG TAB PO PRN (13:35)
[2020-05-26] MEDS ORDERED: ACETAMINOPHEN TAB 325 MG TAB PO PRN (13:35)
[2020-05-26] MEDS: LACOSAMIDE 50 MG TABLET PO SCH ×3 (14:04→22:02)
[2020-05-26] MEDS: PANTOPRAZOLE 40 MG TABLET PO SCH (14:04)
[2020-05-26] MEDS: ESCITALOPRAM 10 MG TAB PO SCH (14:04)
[2020-05-26] MEDS: allopurinoL 300 MG TAB PO SCH (14:04)
[2020-05-26] MEDS: ATORVASTATIN 20 MG TAB PO SCH (14:04)
[2020-05-26] MEDS ORDERED: cefTRIAXone IN SWFI 1,000 MG/10 ML SYRINGE IVP STA (14:21)
[2020-05-26] MEDS ORDERED: NALOXONE 0.4 MG/ML 1 ML VIAL IV PRN (14:25)
--- NOTE | 2020-05-26 14:25 | ED ---
Medical Decision Making - Lab Data Result diagrams: 05/26/20 12:14 05/26/20 12:14 Lab Results 05/26/20 05/26/20 05/26/20 Range/Units 12:14 12:14 12:14 WBC 9.0 (3.8-10.6) k/uL RBC 4.28 L (4.30-5.90) m/uL Hgb 9.4 L (13.0-17.5) gm/dL Hct 32.9 L (39.0-53.0) % MCV 76.9 L (80.0-100.0) fL MCH 22.0 L (25.0-35.0) pg MCHC 28.6 L (31.0-37.0) g/dL RDW 19.4 H (11.5-15.5) % Plt Count 123 L (150-450) k/uL MPV 7.6 Neutrophils % 81 % Lymphocytes % 8 % Monocytes % 5 % Eosinophils % 4 % Basophils % 0 % Neutrophils # 7.3 (1.3-7.7) k/uL Lymphocytes # 0.7 L (1.0-4.8) k/uL Monocytes # 0.5 (0-1.0) k/uL Eosinophils # 0.4 (0-0.7) k/uL Basophils # 0.0 (0-0.2) k/uL Hypochromasia Marked Poikilocytosis Slight Anisocytosis Slight Microcytosis Moderate PT 12.5 H (9.0-12.0) sec INR 1.2 H (<1.2) APTT 28.4 (22.0-30.0) sec D-Dimer 1.71 H (<0.60) mg/L FEU Sodium 142 (137-145) mmol/L Potassium 4.0 (3.5-5.1) mmol/L Chloride 105 (98-107) mmol/L Carbon Dioxide 31 H (22-30) mmol/L Anion Gap 6 mmol/L BUN 19 (9-20) mg/dL Creatinine 0.93 (0.66-1.25) mg/dL Est GFR (CKD-EPI)AfAm >90 (>60 ml/min/1.73 sqM) Est GFR (CKD-EPI)NonAf >90 (>60 ml/min/1.73 sqM) Glucose 127 H (74-99) mg/dL Plasma Lactic Acid Suresh (0.7-2.0) mmol/L Calcium 8.3 L (8.4-10.2) mg/dL Magnesium 1.6 (1.6-2.3) mg/dL Total Bilirubin 0.8 (0.2-1.3) mg/dL AST 25 (17-59) U/L ALT 11 (4-49) U/L Alkaline Phosphatase 82 (38-126) U/L Lactate Dehydrogenase 577 (313-618) U/L Creatine Kinase 48 L (55-170) U/L Troponin I (0.000-0.034) ng/mL C-Reactive Protein 65.6 H (<10.0) mg/L NT-Pro-B Natriuret Pep pg/mL Total Protein 7.2 (6.3-8.2) g/dL Albumin 3.4 L (3.5-5.0) g/dL Coronavirus (PCR) (Not Detectd) 05/26/20 05/26/20 05/26/20 Range/Units 12:14 12:14 12:14 WBC (3.8-10.6) k/uL RBC (4.30-5.90) m/uL Hgb (13.0-17.5) gm/dL Hct (39.0-53.0) % MCV (80.0-100.0) fL MCH (25.0-35.0) pg MCHC (31.0-37.0) g/dL RDW (11.5-15.5) % Plt Count (150-450) k/uL MPV Neutrophils % % Lymphocytes % % Monocytes % % Eosinophils % % Basophils % % Neutrophils # (1.3-7.7) k/uL Lymphocytes # (1.0-4.8) k/uL Monocytes # (0-1.0) k/uL Eosinophils # (0-0.7) k/uL Basophils # (0-0.2) k/uL Hypochromasia Poikilocytosis Anisocytosis Microcytosis PT (9.0-12.0) sec INR (<1.2) APTT (22.0-30.0) sec D-Dimer (<0.60) mg/L FEU Sodium (137-145) mmol/L Potassium (3.5-5.1) mmol/L Chloride (98-107) mmol/L Carbon Dioxide (22-30) mmol/L Anion Gap mmol/L BUN (9-20) mg/dL Creatinine (0.66-1.25) mg/dL Est GFR (CKD-EPI)AfAm (>60 ml/min/1.73 sqM) Est GFR (CKD-EPI)NonAf (>60 ml/min/1.73 sqM) Glucose (74-99) mg/dL Plasma Lactic Acid Suresh 2.3 H* (0.7-2.0) mmol/L Calcium (8.4-10.2) mg/dL Magnesium (1.6-2.3) mg/dL Total Bilirubin (0.2-1.3) mg/dL AST (17-59) U/L ALT (4-49) U/L Alkaline Phosphatase (38-126) U/L Lactate Dehydrogenase (313-618) U/L Creatine Kinase (55-170) U/L Troponin I 0.029 (0.000-0.034) ng/mL C-Reactive Protein (<10.0) mg/L NT-Pro-B Natriuret Pep 814 pg/mL Total Protein (6.3-8.2) g/dL Albumin (3.5-5.0) g/dL Coronavirus (PCR) (Not Detectd) 05/26/20 Range/Units 12:14 WBC (3.8-10.6) k/uL RBC (4.30-5.90) m/uL Hgb (13.0-17.5) gm/dL Hct (39.0-53.0) % MCV (80.0-100.0) fL MCH (25.0-35.0) pg MCHC (31.0-37.0) g/dL RDW (11.5-15.5) % Plt Count (150-450) k/uL MPV Neutrophils % % Lymphocytes % % Monocytes % % Eosinophils % % Basophils % % Neutrophils # (1.3-7.7) k/uL Lymphocytes # (1.0-4.8) k/uL Monocytes # (0-1.0) k/uL Eosinophils # (0-0.7) k/uL Basophils # (0-0.2) k/uL Hypochromasia Poikilocytosis Anisocytosis Microcytosis PT (9.0-12.0) sec INR (<1.2) APTT (22.0-30.0) sec D-Dimer (<0.60) mg/L FEU Sodium (137-145) mmol/L Potassium (3.5-5.1) mmol/L Chloride (98-107) mmol/L Carbon Dioxide (22-30) mmol/L Anion Gap mmol/L BUN (9-20) mg/dL Creatinine (0.66-1.25) mg/dL Est GFR (CKD-EPI)AfAm (>60 ml/min/1.73 sqM) Est GFR (CKD-EPI)NonAf (>60 ml/min/1.73 sqM) Glucose (74-99) mg/dL Plasma Lactic Acid Suresh (0.7-2.0) mmol/L Calcium (8.4-10.2) mg/dL Magnesium (1.6-2.3) mg/dL Total Bilirubin (0.2-1.3) mg/dL AST (17-59) U/L ALT (4-49) U/L Alkaline Phosphatase (38-126) U/L Lactate Dehydrogenase (313-618) U/L Creatine Kinase (55-170) U/L Troponin I (0.000-0.034) ng/mL C-Reactive Protein (<10.0) mg/L NT-Pro-B Natriuret Pep pg/mL Total Protein (6.3-8.2) g/dL Albumin (3.5-5.0) g/dL Coronavirus (PCR) Not Detected (Not Detectd) Disposition Clinical Impression: Pneumonia, Hypoxemia, Febrile illness, acute, Elevated d-dimer, COVID-19 determined by clinical diagnostic criteria, Elevated lactic acid level Disposition: ADMITTED IP TO THIS HOSP Condition: Fair Referrals: Eric Ang DO [Primary Care Provider] - 1-2 days
--- NOTE | 2020-05-26 17:06 | P.CNPUL ---
History of Present Illness Consult date: 05/26/20 Requesting physician: Chavez Pedraza Reason for consult: dyspnea, abnormal CXR/CT Chief complaint: Cough, congestion, weakness History of present illness: This is a very pleasant 55-year-old gentleman who follows with Dr. Ang as his primary care provider. He has a history of atrial fibrillation, COPD, CVA/TIA, GERD, hyperlipidemia, hypertension, seizure disorder, obstructive sleep apnea, gastric sleeve, chronic esophageal stenosis with previous dilatations and dysphagia and frequent aspiration pneumonias. He was seen by our group last approximately month ago for an acute healthcare acquired pneumonia and suspected aspiration pneumonia. He was treated with antibiotics and subsequently discharged. He presented here to the emergency room earlier today via EMS after having developed increasing shortness of breath cough congestion fever and O2 saturations at 75% according to the visiting nurse. He's had lost his sense of taste and smell for approximately a week. He had still been on some antibiotics at that time. Today's chest x-ray reveals evidence of fluid volume overload with new moderate to severe central edema and/or infiltrates. CoVID screen negative. Influenza screen negative. He is seen today in consultation in the emergency room. He was given 1 dose of ceftriaxone. His received 1 L of fluid resuscitation. White count 9.0. Hemoglobin 9.4. Platelet count 123. D-dimer 1.71. Sodium 1.2. Potassium 4.0. Creatinine 0.93. Initial lactic acid 2.3 currently 0.8. LDH 577. C-reactive protein 65. ProBNP 814. Pro-calcitonin pending. He is currently awake and alert in no acute distress. He has a loose nonproductive cough. T-max 101. Currently 99.3. He is requiring 6 L high flow nasal cannula to maintain O2 saturation in the mid 90s. Review of Systems REVIEW OF SYSTEMS: CONSTITUTIONAL: Positive for weakness, fever. Denies any recent significant weight loss or weight gain. EYES: Denies change in vision. EARS, NOSE, MOUTH, THROAT: Denies headaches, denies sore throat. CARDIOVASCULAR: Denies chest pain, palpitations or syncopal episodes. RESPIRATORY: Positive for shortness of breath, cough, congestion no hemoptysis. GASTROINTESTINAL: Denies change in appetite, denies abdominal pain GENITOURINARY: Denies hematuria, denies infections. MUSKULOSKELETAL: Denies pain, denies swelling. INTEGUMENTARY: Denies rash, denies eczema. NEUROLOGICAL: Denies recent memory loss, no recent seizure activity. PSYCHIATRIC: Denies anxiety, denies depression. HEMATOLOGIC/LYMPHATIC: Denies anemia, denies enlarged lymph nodes. Past Medical History Past Medical History: Atrial Fibrillation, COPD, CVA/TIA, GERD/Reflux, Hyperlipidemia, Hypertension, Osteoarthritis (OA), Pneumonia, Seizure Disorder, Sleep Apnea/CPAP/BIPAP Additional Past Medical History / Comment(s): hiatal hernia, gout, neuropathy marta legs and feet- states feet are numb, some numbness in legs & tingling in hands., chronic back pain., constipation., dysphagia-hx of EGD with dilation, chronic esophogeal stenosis. Last October 2019, states frequent pneumonia & not sure why, recent admission for History of Any Multi-Drug Resistant Organisms: ESBL Date of last positivie culture/infection: 04/29/20 ESBL Klebsiella MDRO Source:: Blood Past Surgical History: Back Surgery, Bariatric Surgery, Bowel Resection, Heart Catheterization, Joint Replacement, Orthopedic Surgery Additional Past Surgical History / Comment(s): PAIN PUMP IMPLANTED 07/17/18, HX GASTRIC SLEEVE AND . BILATERAL KNEE arthroscopy, BILATERAL HIP replacement, LEFT SHOULDER replacement, LEFT ACHILES TENDON SX., RIGHT BIG TOE took piece out, echocardiolgram, spinal fusion, EGD with dilation., STATES HX OF PNEUMONIA WITH LUNG SURGERY., REPAIR OF HIATAL HERNIA & LYSIS OF ADHESIONS Past Anesthesia/Blood Transfusion Reactions: No Reported Reaction Past Psychological History: Anxiety, Depression Smoking Status: Former smoker Past Alcohol Use History: None Reported Past Drug Use History: None Reported - Past Family History Father Family Medical History: Cancer Additional Family Medical History / Comment(s): lung Medications and Allergies Home Medications Medication Instructions Recorded Confirmed Type Allopurinol [Zyloprim] 300 mg PO DAILY 06/04/16 05/26/20 History Escitalopram [Lexapro] 10 mg PO DAILY 06/04/16 05/26/20 History Lacosamide [Vimpat] 50 mg PO BID 03/25/18 05/26/20 History Omeprazole 40 mg PO BID #60 cap 07/06/19 05/26/20 Rx oxyCODONE-APAP 7.5-325MG [Percocet 1 tab PO DAILY PRN #10 tab 12/15/19 05/26/20 Rx 7.5-325 mg] Sildenafil Citrate 100 mg PO DAILY PRN 03/09/20 05/26/20 History Acetaminophen Tab [Tylenol] 650 mg PO Q4HR PRN tab 03/27/20 05/26/20 Rx Cyclobenzaprine [Flexeril] 10 mg PO BID PRN #0 03/27/20 05/26/20 Rx Pregabalin [Lyrica] 300 mg PO BID #6 cap 03/27/20 05/26/20 Rx Ergocalciferol (Vitamin D2) 50,000 unit PO MO 04/28/20 05/26/20 History [Drisdol] Ibuprofen 800 mg PO TID PRN 04/28/20 05/26/20 History Metoprolol Tartrate [Lopressor] 12.5 mg PO BID 04/28/20 05/26/20 History Zolpidem Tartrate [Ambien] 10 mg PO HS 04/28/20 05/26/20 History Atorvastatin [Lipitor] 20 mg PO DAILY #30 tab 05/02/20 05/26/20 Rx Furosemide [Lasix] 20 mg PO DAILY 05/09/20 05/26/20 History Naloxone HCl [Narcan] 1 spray NASAL DIRECTED PRN 05/26/20 05/26/20 History lisinopriL [Zestril] 2.5 mg PO DAILY 05/26/20 05/26/20 History Allergies Allergy/AdvReac Type Severity Reaction Status Date / Time No Known Allergies Allergy Verified 05/26/20 13:19 Physical Exam Vitals: Vital Signs Temp Pulse Resp BP Pulse Ox 05/26/20 15:32 102 H 22 93/68 95 05/26/20 13:44 99.3 F 110 H 22 99/73 96 05/26/20 12:08 96 05/26/20 12:04 101 F H 121 H 22 98/63 68 L Intake and Output 05/26/20 05/26/20 05/26/20 06:59 14:59 22:59 Other: Weight 113.398 kg GENERAL EXAM: Alert, doesn't 55-year-old -[place] gentleman, on 6 L nasal cannula, fairly comfortable in no apparent distress. HEAD: Normocephalic. EYES: Normal reaction of pupils, equal size. NOSE: Clear with pink turbinates. THROAT: No erythema or exudates. NECK: No masses, no JVD. CHEST: No chest wall deformity. LUNGS: Equal air entry with scattered rhonchi, crackles in the posterior bases.. CVS: S1 and S2 normal with no audible murmur, regular rhythm. ABDOMEN: No hepatosplenomegaly, normal bowel sounds, no guarding or rigidity. SPINE: No scoliosis or deformity SKIN: No rashes CENTRAL NERVOUS SYSTEM: No focal deficits, tone is normal in all 4 extremities. EXTREMITIES: There is no peripheral edema. No clubbing, no cyanosis. Peripheral pulses are intact. Results - Laboratory Findings CBC and BMP: 05/26/20 12:14 05/26/20 12:14 PT/INR, D-dimer PT 12.5 sec (9.0-12.0) H 05/26/20 12:14 INR 1.2 (<1.2) H 05/26/20 12:14 D-Dimer 1.71 mg/L FEU (<0.60) H 05/26/20 12:14 Abnormal lab findings: Abnormal Labs 05/26/20 05/26/20 05/26/20 12:14 12:14 12:14 RBC 4.28 L Hgb 9.4 L Hct 32.9 L MCV 76.9 L MCH 22.0 L MCHC 28.6 L RDW 19.4 H Plt Count 123 L Lymphocytes # 0.7 L PT 12.5 H INR 1.2 H D-Dimer 1.71 H Carbon Dioxide 31 H Glucose 127 H Plasma Lactic Acid Suresh Calcium 8.3 L Creatine Kinase 48 L C-Reactive Protein 65.6 H Albumin 3.4 L 05/26/20 12:14 RBC Hgb Hct MCV MCH MCHC RDW Plt Count Lymphocytes # PT INR D-Dimer Carbon Dioxide Glucose Plasma Lactic Acid Suresh 2.3 H* Calcium Creatine Kinase C-Reactive Protein Albumin - Diagnostic Findings Chest x-ray: image reviewed Assessment and Plan Assessment: 1 Acute hypoxic respiratory failure secondary to acute healthcare acquired and/or aspiration pneumonia. CoVID screen negative. 2 History of previous aspiration pneumonias. 3 History of esophagitis and esophageal stricture/stenosis with previous dilatation 4 Gastric sleeve surgery in December 2019 5 Chronic dysphagia secondary to above 6 History of atrial fibrillation 7 History of diastolic congestive heart failure 8 Hypertension 9 Hiatal hernia 10 Hyperlipidemia 11 History of obstructive sleep apnea 12 History of gout 13 History of neuropathy of the bilateral lower extremities 14 Chronic back pain 15 History of chronic tobacco dependence Plan: The patient was seen and evaluated by Dr. Gomez Chest x-ray and labs reviewed We will initiate the patient on bronchodilators Add Zosyn We'll continue to follow and make further recommendations based on his clinical status I, the cosigning physician, performed a history & physical examination of the patient. Lungs sounds with bilateral scattered rhonchi. Maintaining good O2 saturations in the 90s on 6 L/m per nasal cannula. I discussed the assessment and plan of care with my nurse practitioner, Sherrill Sun. I attest to the above consultation as dictated by her. Time with Patient: Greater than 30
--- NOTE | 2020-05-26 17:29 | CT ---
EXAMINATION TYPE: CT angio chest DATE OF EXAM: 05/26/2020 COMPARISON: 03/20/2020 HISTORY: Shortness of breath. CT DLP: 597.1 mGycm Automated exposure control for dose reduction was used. CONTRAST: Performed with IV Contrast, patient injected with 100 mL of Isovue 370. Images obtained from the thoracic inlet to the diaphragm with IV contrast and 3-D post processed imag es. There is patchy airspace consolidation in both lower lobes and more on the right side. There is appar ent gastric pull-through procedure. There is fluid in the medial esophagus in the right thoracic para spinal region. I see no filling defects in the pulmonary arteries. There are bilateral bronchial lymph nodes that me asure up to 1.5 cm. There is no mediastinal adenopathy. Thoracic aorta is intact. There is no aneurys m or dissection. The ascending aorta measures 3 cm. The thoracic spine is intact. Bony thorax is intact. IMPRESSION: No evidence of pulmonary embolism. Bilateral patchy airspace pneumonia and atelectasis in the lower l obes is improved in the right lower lobe and unchanged in the left lower lobe compared to old exam.
[2020-05-26] MEDS: PIPERACILLIN-TAZOBACTAM 3.375 GM in SODIUM CHLORIDE 0.9% 100 ML IVPB SCH (18:03)
--- NOTE | 2020-05-26 18:25 | P.HPIM ---
History of Present Illness H&P Date: 05/26/20 Chief Complaint: Short of breath cough History of presenting complaint: This is a very pleasant 55-year-old patient of Dr. Alexandrea Ang. stable medical conditions include hypertension, , gout, chronic bilateral hip pain, peripheral neuropathy. Atrial fibrillation, gastric [place] [address] Zarate. 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 Dumont. baseline - walk slowly because of peripheral neuropathy. In August 2018 patient had EGD done that showed severe erosive esophagitis with esophageal ulcer. readmitted July 05 underwent balloon dilatation of 10-7 mm done. admitted July 22 and underwent EGD by Dr. Carbajal. Found-severe esophagitis and distal esophageal obstruction. A 10 mm dilatation was carried out. Retained food was extracted. Found to have possible aspiration pneumonia bilateral, treat with IV Zosyn-discharge. Dr. Carbajal discharged on Augmentin on July 26. On December 11 and I&D of the right scrotal abscess. - Shobha's gangrene. In December 2019- small bowel obstruction and recurrent hypoglycemia and was then transferred to [facility]. Patient now presented with 3 days of fevers and chills. Increase appetite. Congested cough with clear sputum. Tired rundown. Review of systems: GEN.: Fever and chills EYES: None HEENT: None NECK: None RESPIRATORY: As above CARDIOVASCULAR: None GASTROINTESTINAL: None GENITOURINARY: None MUSCULOSKELETAL: Some pains LYMPHATICS: None HEMATOLOGICAL: None PSYCHIATRY: None NEUROLOGICAL: Does use a walker Past medical history to include: Hypertension, gout, peripheral neuropathy, atrial fibrillation, gastric sleeve in 2013, gastric-gastric fistula repair, severe esophagitis, esophageal stenosis dilated, Social history: Smoke one half a pack a day for about 38 years-stopped 2018. . No alcohol. Physical examination: VITAL SIGNS: 101, 121, 22, 98 x 63, 68% on room air GENERAL: BMI 33. laying in bed, tired, short of breath congested EYES: Pupils equal. Conjunctiva normal. HEENT: External appearance of nose and ears normal, oral cavity grossly normal. NECK: JVD unable to assess; masses not palpable. HEART: First and second heart sounds are normal; no edema. LUNGS: Respiratory rate increased decreased breath sounds, some extremity crackles. ABDOMEN: Soft, nontender, liver spleen not palpable, no masses palpable. Left abdominal wall has a pain pump PSYCH: Alert and oriented x3; mood and affect anxious NEUROLOGICAL: Cranial nerves grossly intact; no facial asymmetry, power and sensation grossly intact. LYMPHATICS: No lymph nodes palpable in the axilla and neck INVESTIGATIONS, reviewed in the clinical context: White count 9 hemoglobin 9.4 which is 123 lymphocytes at 0.7 D-dimer 1.71 potassium 4 creatinine 0.93 lactic acid 2.3 CRP 65.6 pro-BNP 814 Coronavirus P/Cr-not detected, influenza type A type B both not detected EKG tracing personally reviewed by me-sinus rhythm Chest x-ray film personally reviewed by me-shows bilateral infiltrates and possible venous prominence Assessment: -Strong clinical suspicion of COVID 19 pneumonia given bilateral infiltrates, lymphopenia, elevated CRP d-dimer even though initial PCR testing is negative. We'll treat the patient was same. Repeat COVID 19 PCR testing. Also, for gram- negative organism. -Acute severe hypoxia from pneumonia -Acute COPD exacerbation in a ex-smoker -History of recurrent esophageal stricture with repeat dilatation -History of paraesophageal repair and history of sleeve gastrectomy -Essential hypertension -Primary osteoarthritis -Gout -Idiopathic peripheral neuropathy -Chronic back pain with the pain pump -Anemia of chronic disease -Paroxysmal atrial fibrillation, currently in sinus rhythm Plan: Patient is on IV Zosyn. Benign IV Solu-Medrol and Lovenox. IV fluids. Home medications resumed. Albuterol every 4 hours. Add supplements including zinc calcium Pepcid vitamin C. Care was discussed with the patient question also. Consult pulmonary. Follow inflammatory and prothrombotic markers. Continue droplet precautions. Past Medical History Past Medical History: Atrial Fibrillation, COPD, CVA/TIA, GERD/Reflux, Hyperlipidemia, Hypertension, Osteoarthritis (OA), Pneumonia, Seizure Disorder, Sleep Apnea/CPAP/BIPAP Additional Past Medical History / Comment(s): hiatal hernia, gout, neuropathy marta legs and feet- states feet are numb, some numbness in legs & tingling in hands., chronic back pain., constipation., dysphagia-hx of EGD with dilation, chronic esophogeal stenosis. Last October 2019, states frequent pneumonia & not sure why, recent admission for History of Any Multi-Drug Resistant Organisms: ESBL Date of last positivie culture/infection: 04/29/20 ESBL Klebsiella MDRO Source:: Blood Past Surgical History: Back Surgery, Bariatric Surgery, Bowel Resection, Heart Catheterization, Joint Replacement, Orthopedic Surgery Additional Past Surgical History / Comment(s): PAIN PUMP IMPLANTED 07/17/18, HX GASTRIC SLEEVE AND . BILATERAL KNEE arthroscopy, BILATERAL HIP replacement, LEFT SHOULDER replacement, LEFT ACHILES TENDON SX., RIGHT BIG TOE took piece out, echocardiolgram, spinal fusion, EGD with dilation., STATES HX OF PNEUMONIA WITH LUNG SURGERY., REPAIR OF HIATAL HERNIA & LYSIS OF ADHESIONS Past Anesthesia/Blood Transfusion Reactions: No Reported Reaction Past Psychological History: Anxiety, Depression Smoking Status: Former smoker Past Alcohol Use History: None Reported Past Drug Use History: None Reported - Past Family History Father Family Medical History: Cancer Additional Family Medical History / Comment(s): lung Medications and Allergies Home Medications Medication Instructions Recorded Confirmed Type Allopurinol [Zyloprim] 300 mg PO DAILY 06/04/16 05/26/20 History Escitalopram [Lexapro] 10 mg PO DAILY 06/04/16 05/26/20 History Lacosamide [Vimpat] 50 mg PO BID 03/25/18 05/26/20 History Omeprazole 40 mg PO BID #60 cap 07/06/19 05/26/20 Rx oxyCODONE-APAP 7.5-325MG [Percocet 1 tab PO DAILY PRN #10 tab 12/15/19 05/26/20 Rx 7.5-325 mg] Sildenafil Citrate 100 mg PO DAILY PRN 03/09/20 05/26/20 History Acetaminophen Tab [Tylenol] 650 mg PO Q4HR PRN tab 03/27/20 05/26/20 Rx Cyclobenzaprine [Flexeril] 10 mg PO BID PRN #0 03/27/20 05/26/20 Rx Pregabalin [Lyrica] 300 mg PO BID #6 cap 03/27/20 05/26/20 Rx Ergocalciferol (Vitamin D2) 50,000 unit PO MO 04/28/20 05/26/20 History [Drisdol] Ibuprofen 800 mg PO TID PRN 04/28/20 05/26/20 History Metoprolol Tartrate [Lopressor] 12.5 mg PO BID 04/28/20 05/26/20 History Zolpidem Tartrate [Ambien] 10 mg PO HS 04/28/20 05/26/20 History Atorvastatin [Lipitor] 20 mg PO DAILY #30 tab 05/02/20 05/26/20 Rx Furosemide [Lasix] 20 mg PO DAILY 05/09/20 05/26/20 History Naloxone HCl [Narcan] 1 spray NASAL DIRECTED PRN 05/26/20 05/26/20 History lisinopriL [Zestril] 2.5 mg PO DAILY 05/26/20 05/26/20 History Allergies Allergy/AdvReac Type Severity Reaction Status Date / Time No Known Allergies Allergy Verified 05/26/20 13:19 Physical Exam Vitals: Vital Signs Temp Pulse Resp BP Pulse Ox 05/26/20 15:32 102 H 22 93/68 95 05/26/20 13:44 99.3 F 110 H 22 99/73 96 05/26/20 12:08 96 05/26/20 12:04 101 F H 121 H 22 98/63 68 L Intake and Output 05/26/20 05/26/20 05/26/20 06:59 14:59 22:59 Other: Weight 113.398 kg Results CBC & Chem 7: 05/26/20 12:14 05/26/20 12:14 Labs: Abnormal Lab Results - Last 24 Hours (Table) 05/26/20 05/26/20 05/26/20 Range/Units 12:14 12:14 12:14 RBC 4.28 L (4.30-5.90) m/uL Hgb 9.4 L (13.0-17.5) gm/dL Hct 32.9 L (39.0-53.0) % MCV 76.9 L (80.0-100.0) fL MCH 22.0 L (25.0-35.0) pg MCHC 28.6 L (31.0-37.0) g/dL RDW 19.4 H (11.5-15.5) % Plt Count 123 L (150-450) k/uL Lymphocytes # 0.7 L (1.0-4.8) k/uL PT 12.5 H (9.0-12.0) sec INR 1.2 H (<1.2) D-Dimer 1.71 H (<0.60) mg/L FEU Carbon Dioxide 31 H (22-30) mmol/L Glucose 127 H (74-99) mg/dL Plasma Lactic Acid Suresh (0.7-2.0) mmol/L Calcium 8.3 L (8.4-10.2) mg/dL Creatine Kinase 48 L (55-170) U/L C-Reactive Protein 65.6 H (<10.0) mg/L Albumin 3.4 L (3.5-5.0) g/dL 05/26/20 Range/Units 12:14 RBC (4.30-5.90) m/uL Hgb (13.0-17.5) gm/dL Hct (39.0-53.0) % MCV (80.0-100.0) fL MCH (25.0-35.0) pg MCHC (31.0-37.0) g/dL RDW (11.5-15.5) % Plt Count (150-450) k/uL Lymphocytes # (1.0-4.8) k/uL PT (9.0-12.0) sec INR (<1.2) D-Dimer (<0.60) mg/L FEU Carbon Dioxide (22-30) mmol/L Glucose (74-99) mg/dL Plasma Lactic Acid Suresh 2.3 H* (0.7-2.0) mmol/L Calcium (8.4-10.2) mg/dL Creatine Kinase (55-170) U/L C-Reactive Protein (<10.0) mg/L Albumin (3.5-5.0) g/dL
[2020-05-26] MEDS ORDERED: methylPREDNISolone SOD SUCCI 125 MG/2 ML VIAL IV STA (18:26)
[2020-05-26 19:12] LABS: Ferritin 38.8 ng/mL (22.0-322.0)
[2020-05-26] MEDS: ASCORBIC ACID 500 MG TAB PO SCH (20:16)
[2020-05-26] MEDS: LACTATED RINGERS 1,000 ML IV SCH (20:18)
[2020-05-26] MEDS: ALBUTEROL HFA INHALER INHALATION SCH (21:47)
[2020-05-26] MEDS: ZOLPIDEM 10 MG TAB PO SCH (22:01)
[2020-05-26] MEDS: METOPROLOL TARTRATE 12.5 MG TAB PO SCH (22:01)
[2020-05-26] MEDS: FAMOTIDINE 20 MG TAB PO SCH (22:01)
[2020-05-26] MEDS: PREGABALIN 100 MG CAP PO SCH (22:01)
[2020-05-26] MEDS: ENOXAPARIN 100 MG/ML SYRINGE SQ SCH (22:02)
[2020-05-27] MEDS: PIPERACILLIN-TAZOBACTAM 3.375 GM in SODIUM CHLORIDE 0.9% 100 ML IVPB SCH ×3 (01:07→16:17)
[2020-05-27] MEDS: methylPREDNISolone SOD SUCCI 40 MG/ML 1 ML VIAL IV SCH ×3 (01:08→16:17)
[2020-05-27] MEDS: PANTOPRAZOLE 40 MG TABLET PO SCH ×2 (08:31→16:25)
[2020-05-27] MEDS: METOPROLOL TARTRATE 12.5 MG TAB PO SCH ×2 (08:32→21:47)
[2020-05-27] MEDS: allopurinoL 300 MG TAB PO SCH (08:32)
[2020-05-27] MEDS: LACOSAMIDE 50 MG TABLET PO SCH ×2 (08:33→21:47)
[2020-05-27] MEDS: FAMOTIDINE 20 MG TAB PO SCH ×2 (08:33→21:47)
[2020-05-27] MEDS: ATORVASTATIN 20 MG TAB PO SCH (08:33)
[2020-05-27] MEDS: PREGABALIN 100 MG CAP PO SCH ×2 (08:33→21:46)
[2020-05-27] MEDS: ASCORBIC ACID 500 MG TAB PO SCH (08:33)
[2020-05-27] MEDS: ENOXAPARIN 100 MG/ML SYRINGE SQ SCH ×2 (08:34→22:35)
[2020-05-27] MEDS: ALBUTEROL HFA INHALER INHALATION SCH ×4 (09:43→20:13)
[2020-05-27] MEDS: ESCITALOPRAM 10 MG TAB PO SCH (10:27)
--- NOTE | 2020-05-27 13:20 | P.PN ---
Subjective Progress Note Date: 05/27/20 Principal diagnosis: Acute hypoxic respiratory failure secondary to acute healthcare acquired and/or aspiration pneumonia. CoVID screen negative This is a very pleasant 55-year-old gentleman who follows with Dr. Ang as his primary care provider. He has a history of atrial fibrillation, COPD, CVA/TIA, GERD, hyperlipidemia, hypertension, seizure disorder, obstructive sleep apnea, gastric sleeve, chronic esophageal stenosis with previous dilatations and dysphagia and frequent aspiration pneumonias. He was seen by our group last approximately month ago for an acute healthcare acquired pneumonia and suspected aspiration pneumonia. He was treated with antibiotics and subsequently discharged. He presented here to the emergency room earlier today via EMS after having developed increasing shortness of breath cough congestion fever and O2 saturations at 75% according to the visiting nurse. He's had lost his sense of taste and smell for approximately a week. He had still been on some antibiotics at that time. Today's chest x-ray reveals evidence of fluid volume overload with new moderate to severe central edema and/or infiltrates. CoVID screen negative. Influenza screen negative. He is seen today in consultation in the emergency room. He was given 1 dose of ceftriaxone. His received 1 L of fluid resuscitation. White count 9.0. Hemoglobin 9.4. Platelet count 123. D-dimer 1.71. Sodium 1.2. Potassium 4.0. Creatinine 0.93. Initial lactic acid 2.3 currently 0.8. LDH 577. C-reactive protein 65. ProBNP 814. Pro-calcitonin pending. He is currently awake and alert in no acute distress. He has a loose nonproductive cough. T-max 101. Currently 99.3. He is requiring 6 L high flow nasal cannula to maintain O2 saturation in the mid 90s. The patient is seen today 05/27/2020 in follow-up on the regular medical floor. He is currently resting comfortably in bed. Awake and alert in no acute distress. He denies any worsening shortness of breath, cough or congestion. No fever chills or night sweats. Maintaining O2 saturations in the mid 90s on 5 L/m per nasal cannula. He is afebrile. D-dimer 0.92. C-reactive protein 137. CT angiogram revealed no evidence of pulmonary embolism. There is bilateral patchy airspace pneumonia and atelectasis in the lower lobes which is improved in the right and unchanged in the left compared to previous exam on 03/20/2020. Currently on Zosyn along with IV Solu-Medrol bronchodilators. Objective - Vital Signs Vital signs: Vital Signs Temp 97.6 F 05/27/20 11:00 Pulse 86 05/27/20 11:00 Resp 16 05/27/20 11:00 BP 111/66 05/27/20 11:00 Pulse Ox 96 05/27/20 11:00 Intake & Output 05/26/20 05/27/20 05/27/20 18:59 06:59 18:59 Weight 113.398 kg - Exam GENERAL EXAM: Alert, pleasant 55-year-old -[place] gentleman, on 5 L nasal cannula, fairly comfortable in no apparent distress. HEAD: Normocephalic. EYES: Normal reaction of pupils, equal size. NOSE: Clear with pink turbinates. THROAT: No erythema or exudates. NECK: No masses, no JVD. CHEST: No chest wall deformity. LUNGS: Equal air entry with scattered rhonchi, crackles in the posterior bases.. CVS: S1 and S2 normal with no audible murmur, regular rhythm. ABDOMEN: No hepatosplenomegaly, normal bowel sounds, no guarding or rigidity. SPINE: No scoliosis or deformity SKIN: No rashes CENTRAL NERVOUS SYSTEM: No focal deficits, tone is normal in all 4 extremities. EXTREMITIES: There is no peripheral edema. No clubbing, no cyanosis. Peripheral pulses are intact. - Labs CBC & Chem 7: 05/26/20 12:14 05/26/20 12:14 Labs: Abnormal Lab Results - Last 24 Hours (Table) 05/26/20 05/26/20 05/27/20 Range/Units 12:14 12:14 10:30 PT 12.5 H (9.0-12.0) sec INR 1.2 H (<1.2) D-Dimer 1.71 H 0.92 H (<0.60) mg/L FEU C-Reactive Protein (<10.0) mg/L Procalcitonin 0.20 H (0.02-0.09) ng/mL 05/27/20 Range/Units 10:30 PT (9.0-12.0) sec INR (<1.2) D-Dimer (<0.60) mg/L FEU C-Reactive Protein 137.5 H (<10.0) mg/L Procalcitonin (0.02-0.09) ng/mL Assessment and Plan Assessment: 1 Acute hypoxic respiratory failure secondary to acute healthcare acquired and/or aspiration pneumonia. CoVID screen negative. 2 History of previous aspiration pneumonias. 3 History of esophagitis and esophageal stricture/stenosis with previous dilatation 4 Gastric sleeve surgery in December 2019 5 Chronic dysphagia secondary to above 6 History of atrial fibrillation 7 History of diastolic congestive heart failure 8 Hypertension 9 Hiatal hernia 10 Hyperlipidemia 11 History of obstructive sleep apnea 12 History of gout 13 History of neuropathy of the bilateral lower extremities 14 Chronic back pain 15 History of chronic tobacco dependence Plan: The patient was seen and evaluated by Dr. Gomez Presently stable from the pulmonary standpoint Continue with the current treatment plan Titrate down the FiO2 as tolerated Repeat chest x-ray in a.m. We'll continue to follow and make further recommendations based on his clinical status I, the cosigning physician, performed a history & physical examination of the patient. Lungs sounds with bilateral scattered rhonchi. Maintaining good O2 saturations in the 90s on 5 L/m per nasal cannula. I discussed the assessment and plan of care with my nurse practitioner, Sherrill Sun. I attest to the above consultation as dictated by her.
[2020-05-27] MEDS: LACTATED RINGERS 1,000 ML IV SCH ×2 (16:16→16:26)
[2020-05-27] MEDS: ZOLPIDEM 10 MG TAB PO SCH (21:47)
[2020-05-28] MEDS: methylPREDNISolone SOD SUCCI 40 MG/ML 1 ML VIAL IV SCH ×3 (00:54→15:55)
[2020-05-28] MEDS: PIPERACILLIN-TAZOBACTAM 3.375 GM in SODIUM CHLORIDE 0.9% 100 ML IVPB SCH ×3 (00:55→15:55)
[2020-05-28] MEDS: LACTATED RINGERS 1,000 ML IV SCH ×3 (05:28→11:36)
--- NOTE | 2020-05-28 08:53 | XR ---
EXAMINATION TYPE: XR chest 1V portable DATE OF EXAM: 05/28/2020 Comparison: 05/26/2020 Clinical History: 55-year-old male Pneumonia Findings: Cervical fusion hardware. Patient is markedly rotated towards the right altering the normal cardiomed iastinal contours. Bilateral patchy opacities show some improvement. Residual density remains at the left base. Impression: Limited, rotated exam. Bilateral patchy infiltrates show improvement. Residual density remains at the medial left base.
[2020-05-28] MEDS: ALBUTEROL HFA INHALER INHALATION SCH ×4 (09:14→21:13)
[2020-05-28] MEDS: FAMOTIDINE 20 MG TAB PO SCH ×2 (09:33→21:23)
[2020-05-28] MEDS: allopurinoL 300 MG TAB PO SCH (09:33)
[2020-05-28] MEDS: ESCITALOPRAM 10 MG TAB PO SCH (09:33)
[2020-05-28] MEDS: METOPROLOL TARTRATE 12.5 MG TAB PO SCH ×2 (09:33→21:23)
[2020-05-28] MEDS: PANTOPRAZOLE 40 MG TABLET PO SCH ×2 (09:34→15:55)
[2020-05-28] MEDS: LACOSAMIDE 50 MG TABLET PO SCH ×2 (09:34→21:24)
[2020-05-28] MEDS: PREGABALIN 100 MG CAP PO SCH ×2 (09:34→21:24)
[2020-05-28] MEDS: ASCORBIC ACID 500 MG TAB PO SCH (09:34)
[2020-05-28] MEDS: ATORVASTATIN 20 MG TAB PO SCH (09:34)
[2020-05-28] MEDS: ENOXAPARIN 100 MG/ML SYRINGE SQ SCH ×2 (09:34→21:23)
--- NOTE | 2020-05-28 11:48 | P.PN ---
Progress Note - Text Progress Note Date: 05/27/20 Chief Complaint: Short of breath cough History of presenting complaint: This is a very pleasant 55-year-old patient of Dr. Alexandrea Ang. stable medical conditions include hypertension, , gout, chronic bilateral hip pain, peripheral neuropathy. Atrial fibrillation, gastric sleeve [place] [address] Zarate. 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 Dumont. baseline - walk slowly because of peripheral neuropathy. In August 2018 patient had EGD done that showed severe erosive esophagitis with esophageal ulcer. readmitted July 05 underwent balloon dilatation of 10-7 mm done. admitted July 22 and underwent EGD by Dr. Carbajal. Found-severe esophagitis and distal esophageal obstruction. A 10 mm dilatation was carried out. Retained food was extracted. Found to have possible aspiration pneumonia bilateral, treat with IV Zosyn-discharge. Dr. Carbajal discharged on Augmentin on July 26. On December 11 and I&D of the right scrotal abscess. - Shobha's gangrene. In December 2019- small bowel obstruction and recurrent hypoglycemia and was then transferred to [facility]. Patient now presented with 3 days of fevers and chills. Increase appetite. Congested cough with clear sputum. Tired rundown. Admitted with pneumonia with suspicion for COVID 19. Started on IV Zosyn, Lovenox, started Medrol. Other medications. Today-looking a bit better. Congested chest but less short of breath. Appetite improved. Oral intake much better Review of systems: Was done for constitutional, cardiovascular, GI, pulmonary. relevant finding as above Current medications reviewed in today's electronic records Physical examination: VITAL SIGNS: 97.6, 86, 16, 111/66, 96% on 5 L GENERAL: Reclining in bed, less congested, more awake PSYCH: Alert and oriented x3; mood and affect anxious Additional physical exam as per pulmonary and nursing INVESTIGATIONS, reviewed in the clinical context: May: D-dimer 0.92 CRP 137.5 pro-calcitonin 0.23 White count 9 hemoglobin 9.4 which is 123 lymphocytes at 0.7 D-dimer 1.71 potassium 4 creatinine 0.93 lactic acid 2.3 CRP 65.6 pro-BNP 814 Coronavirus P/Cr-not detected, influenza type A type B both not detected EKG tracing personally reviewed by me-sinus rhythm Chest x-ray film personally reviewed by me-shows bilateral infiltrates and possible venous prominence Chest CTA-no PE. Bilateral patchy airspace pneumonia atelectasis in the lower lobes. Assessment: -Strong clinical suspicion of COVID 19 pneumonia given bilateral infiltrates, lymphopenia, elevated CRP d-dimer even though initial PCR testing is negative. We'll treat the patient was same. Repeat COVID 19 PCR testing. Also, for gram- negative organism. I for slow to respond -Acute severe hypoxia from pneumonia-slow to respond currently on 5 L -Acute COPD exacerbation in a ex-smoker -slow to respond -History of recurrent esophageal stricture with repeat dilatation -History of paraesophageal repair and history of sleeve gastrectomy -Essential hypertension -Primary osteoarthritis -Gout -Idiopathic peripheral neuropathy -Chronic back pain with the pain pump -Anemia of chronic disease -Paroxysmal atrial fibrillation, currently in sinus rhythm Plan: Continue IV Zosyn. , IV Solu-Medrol and Lovenox. IV fluids. Albuterol every 4 hours. Follow with pulmonary. Discussed with patient.
--- NOTE | 2020-05-28 13:58 | P.PN ---
Subjective Progress Note Date: 05/28/20 Principal diagnosis: Acute hypoxic respiratory failure secondary to acute healthcare acquired and/or aspiration pneumonia. CoVID screen negative This is a very pleasant 55-year-old gentleman who follows with Dr. Ang as his primary care provider. He has a history of atrial fibrillation, COPD, CVA/TIA, GERD, hyperlipidemia, hypertension, seizure disorder, obstructive sleep apnea, gastric sleeve, chronic esophageal stenosis with previous dilatations and dysphagia and frequent aspiration pneumonias. He was seen by our group last approximately month ago for an acute healthcare acquired pneumonia and suspected aspiration pneumonia. He was treated with antibiotics and subsequently discharged. He presented here to the emergency room earlier today via EMS after having developed increasing shortness of breath cough congestion fever and O2 saturations at 75% according to the visiting nurse. He's had lost his sense of taste and smell for approximately a week. He had still been on some antibiotics at that time. Today's chest x-ray reveals evidence of fluid volume overload with new moderate to severe central edema and/or infiltrates. CoVID screen negative. Influenza screen negative. He is seen today in consultation in the emergency room. He was given 1 dose of ceftriaxone. His received 1 L of fluid resuscitation. White count 9.0. Hemoglobin 9.4. Platelet count 123. D-dimer 1.71. Sodium 1.2. Potassium 4.0. Creatinine 0.93. Initial lactic acid 2.3 currently 0.8. LDH 577. C-reactive protein 65. ProBNP 814. Pro-calcitonin pending. He is currently awake and alert in no acute distress. He has a loose nonproductive cough. T-max 101. Currently 99.3. He is requiring 6 L high flow nasal cannula to maintain O2 saturation in the mid 90s. The patient is seen today 05/27/2020 in follow-up on the regular medical floor. He is currently resting comfortably in bed. Awake and alert in no acute distress. He denies any worsening shortness of breath, cough or congestion. No fever chills or night sweats. Maintaining O2 saturations in the mid 90s on 5 L/m per nasal cannula. He is afebrile. D-dimer 0.92. C-reactive protein 137. CT angiogram revealed no evidence of pulmonary embolism. There is bilateral patchy airspace pneumonia and atelectasis in the lower lobes which is improved in the right and unchanged in the left compared to previous exam on 03/20/2020. Currently on Zosyn along with IV Solu-Medrol bronchodilators. The patient is seen today 05/28/2020 in follow-up on the regular medical floor. He is currently resting comfortably in bed. Awake and alert in no acute distress. Maintaining O2 saturations in the mid 90s on 5 L/m per nasal cannula. He was 92% on room air. Currently afebrile. He remains on bronchodilators, IV Solu-Medrol, antibiotics in the form of Zosyn. Chest x-ray is limited due to rotated exam. There is some improvement in the bilateral patchy infiltrates. Residual density in the medial left base. Objective - Vital Signs Vital signs: Vital Signs Temp 98.0 F 05/28/20 11:00 Pulse 78 05/28/20 11:00 Resp 18 05/28/20 11:00 BP 89/49 05/28/20 11:00 Pulse Ox 98 05/28/20 12:29 Intake & Output 05/27/20 05/28/20 05/28/20 18:59 06:59 18:59 Intake Total 240 590 Output Total 650 900 Balance -410 -310 Intake: Oral 240 590 Output: Urine 650 900 - Exam GENERAL EXAM: Alert, pleasant 55-year-old -Cam[place] gentleman, on 5 L nasal cannula, fairly comfortable in no apparent distress. HEAD: Normocephalic. EYES: Normal reaction of pupils, equal size. NOSE: Clear with pink turbinates. THROAT: No erythema or exudates. NECK: No masses, no JVD. CHEST: No chest wall deformity. LUNGS: Equal air entry with scattered rhonchi, crackles in the posterior bases.. CVS: S1 and S2 normal with no audible murmur, regular rhythm. ABDOMEN: No hepatosplenomegaly, normal bowel sounds, no guarding or rigidity. SPINE: No scoliosis or deformity SKIN: No rashes CENTRAL NERVOUS SYSTEM: No focal deficits, tone is normal in all 4 extremities. EXTREMITIES: There is no peripheral edema. No clubbing, no cyanosis. Peripheral pulses are intact. - Labs CBC & Chem 7: 05/26/20 12:14 05/26/20 12:14 Labs: Abnormal Lab Results - Last 24 Hours (Table) 05/27/20 Range/Units 10:30 Procalcitonin 0.23 H (0.02-0.09) ng/mL Microbiology - Last 24 Hours (Table) 05/26/20 12:14 Blood Culture - Preliminary Blood No Growth after 24 hours Assessment and Plan Assessment: 1 Acute hypoxic respiratory failure secondary to acute healthcare acquired and/or aspiration pneumonia. CoVID screen negative. 2 History of previous aspiration pneumonias. 3 History of esophagitis and esophageal stricture/stenosis with previous dilatation 4 Gastric sleeve surgery in December 2019 5 Chronic dysphagia secondary to above 6 History of atrial fibrillation 7 History of diastolic congestive heart failure 8 Hypertension 9 Hiatal hernia 10 Hyperlipidemia 11 History of obstructive sleep apnea 12 History of gout 13 History of neuropathy of the bilateral lower extremities 14 Chronic back pain 15 History of chronic tobacco dependence Plan: The patient was seen and evaluated by Dr. Gomez Continue with the current treatment plan Titrate down the FiO2 as tolerated We'll continue to follow and make further recommendations based on his clinical status I, the cosigning physician, performed a history & physical examination of the patient. Lungs sounds with bilateral scattered rhonchi. Maintaining good O2 saturations in the 90s on 5 L/m per nasal cannula. I discussed the assessment a nd plan of care with my nurse practitioner, Sherrill Sun. I attest to the above consultation as dictated by her.
[2020-05-28] MEDS: guaiFENesin 600 MG TABLET.ER PO SCH ×3 (15:55→21:24)
[2020-05-28 17:14] LABS: Glucose,Whole Blood 134 mg/dL (75-99)
[2020-05-28] MEDS: ZOLPIDEM 10 MG TAB PO SCH (21:24)
[2020-05-29] MEDS: methylPREDNISolone SOD SUCCI 40 MG/ML 1 ML VIAL IV SCH ×3 (02:02→15:59)
[2020-05-29] MEDS: PIPERACILLIN-TAZOBACTAM 3.375 GM in SODIUM CHLORIDE 0.9% 100 ML IVPB SCH ×3 (02:02→16:00)
[2020-05-29] MEDS: LACTATED RINGERS 1,000 ML IV SCH ×3 (03:43→12:14)
[2020-05-29] MEDS: ENOXAPARIN 100 MG/ML SYRINGE SQ SCH ×2 (08:56→22:58)
[2020-05-29] MEDS: LACOSAMIDE 50 MG TABLET PO SCH ×2 (08:57→22:59)
[2020-05-29] MEDS: PREGABALIN 100 MG CAP PO SCH ×2 (08:57→22:59)
[2020-05-29] MEDS: FAMOTIDINE 20 MG TAB PO SCH ×2 (08:57→22:58)
[2020-05-29] MEDS: ATORVASTATIN 20 MG TAB PO SCH (08:57)
[2020-05-29] MEDS: PANTOPRAZOLE 40 MG TABLET PO SCH ×2 (08:58→17:15)
[2020-05-29] MEDS: ASCORBIC ACID 500 MG TAB PO SCH (08:58)
[2020-05-29] MEDS: allopurinoL 300 MG TAB PO SCH (08:58)
[2020-05-29] MEDS: guaiFENesin 600 MG TABLET.ER PO SCH ×4 (08:58→22:59)
[2020-05-29] MEDS: ESCITALOPRAM 10 MG TAB PO SCH (08:58)
[2020-05-29] MEDS ORDERED: ERGOCALCIFEROL 50,000 UNIT CAP PO SCH (09:00)
[2020-05-29] MEDS: ALBUTEROL HFA INHALER INHALATION SCH ×4 (09:32→20:19)
--- NOTE | 2020-05-29 10:38 | P.PN ---
Progress Note - Text Progress Note Date: 05/28/20 Chief Complaint: Short of breath cough History of presenting complaint: This is a very pleasant 55-year-old patient of Dr. Alexandrea Ang. stable medical conditions include hypertension, , gout, chronic bilateral hip pain, peripheral neuropathy. Atrial fibrillation, gastric sleeve [place] [address] Zarate. 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 Dumont. baseline - walk slowly because of peripheral neuropathy. In August 2018 patient had EGD done that showed severe erosive esophagitis with esophageal ulcer. readmitted July 05 underwent balloon dilatation of 10-7 mm done. admitted July 22 and underwent EGD by Dr. Carbajal. Found-severe esophagitis and distal esophageal obstruction. A 10 mm dilatation was carried out. Retained food was extracted. Found to have possible aspiration pneumonia bilateral, treat with IV Zosyn-discharge. Dr. Carbajal discharged on Augmentin on July 26. On December 11 and I&D of the right scrotal abscess. - Shobha's gangrene. In December 2019- small bowel obstruction and recurrent hypoglycemia and was then transferred to [facility]. Patient now presented with 3 days of fevers and chills. Increase appetite. Congested cough with clear sputum. Tired rundown. Admitted with pneumonia with suspicion for COVID 19. Started on IV Zosyn, Lovenox, started Medrol. Other medications. Today-breathing much improvement. Respiration improved. Cough improved. Oral intake improved. Review of systems: Was done for constitutional, cardiovascular, GI, pulmonary. relevant finding as above Current medications reviewed in today's electronic records Physical examination: VITAL SIGNS: Afebrile, 67, 20, 147/83, 92% on room air GENERAL: Reclining in bed, less congested, more awake PSYCH: Alert and oriented x3; mood and affect anxious Additional physical exam as per pulmonary and nursing INVESTIGATIONS, reviewed in the clinical context: [place]: D-dimer 0.92 CRP 137.5 pro-calcitonin 0.23 White count 9 hemoglobin 9.4 which is 123 lymphocytes at 0.7 D-dimer 1.71 potassium 4 creatinine 0.93 lactic acid 2.3 CRP 65.6 pro-BNP 814 Coronavirus P/Cr-not detected, influenza type A type B both not detected EKG tracing personally reviewed by me-sinus rhythm Chest x-ray film personally reviewed by me-shows bilateral infiltrates and possible venous prominence Chest CTA-no PE. Bilateral patchy airspace pneumonia atelectasis in the lower lobes. Assessment: -Pneumonia, suspect gram-negative orgasm. POA -COVID 19, ruled out -Acute severe hypoxia from pneumonia-slow to respond currently on 5 L -Acute COPD exacerbation in a ex-smoker -slow to respond -History of recurrent esophageal stricture with repeat dilatation -History of paraesophageal repair and history of sleeve gastrectomy -Essential hypertension -Primary osteoarthritis -Gout -Idiopathic peripheral neuropathy -Chronic back pain with the pain pump -Anemia of chronic disease -Paroxysmal atrial fibrillation, currently in sinus rhythm Plan: Continue IV Zosyn. , IV Solu-Medrol and Lovenox., Albuterol every 4 hours. Slowly improving.
[2020-05-29] MEDS ORDERED: LACTULOSE 20 GM/30 ML CUP PO ONE (11:17)
[2020-05-29 11:59] LABS: African American GFR (CKD) >90 (>60 ml/min/1.73 sqM); Anion Gap 1 mmol/L; Blood Urea Nitrogen 19 mg/dL (9-20); C Reactive Protein 35.7 mg/L (<10.0); Calcium 8.5 mg/dL (8.4-10.2); Carbon Dioxide 36 mmol/L (22-30); Chloride 101 mmol/L (98-107); Glucose 152 mg/dL (74-99); Non-African American GFR(CKD) >90 (>60 ml/min/1.73 sqM); Potassium 4.6 mmol/L (3.5-5.1); Sodium 138 mmol/L (137-145)
[2020-05-29 12:12] LABS: Anisocytosis Slight; Basophils % (A) 0 %; Eosinophils % (A) 0 %; HGB 9.4 gm/dL (13.0-17.5); Hypochromasia Marked; Lymphocytes # (A) 0.9 k/uL (1.0-4.8); Lymphocytes % (A) 11 %; MCH 21.8 pg (25.0-35.0); MCHC 28.4 g/dL (31.0-37.0); MCV 76.8 fL (80.0-100.0); Mean Platelet Volume 8.1; Microcytosis Moderate; Monocytes # (A) 0.3 k/uL (0-1.0); Monocytes % (A) 4 %; Neutrophils # (A) 6.9 k/uL (1.3-7.7); Neutrophils % (A) 84 %; Platelet Count 120 k/uL (150-450); Poikilocytosis Slight; RDW 19.5 % (11.5-15.5); WBC 8.1 k/uL (3.8-10.6)
--- NOTE | 2020-05-29 14:45 | P.PN ---
Subjective Progress Note Date: 05/29/20 The patient on today's evaluation is looking well. The patient has been weaned down his oxygen down to 2 liters and then O2 at room air oxygen. The patient was being treated for aspiration pneumonia. The coronavirus correlating evaluation by PCR came back negative. We were able to wean him down to room air oxygen at this point in time. He is doing well. He is swallowing food. Some limited shortness of breath which is also improving.The patient will have a need further rehabilitation and is looking for residential transfer. His cardiac rhythm is sinus. Objective - Vital Signs Vital signs: Vital Signs Temp 98 F 05/29/20 11:00 Pulse 68 05/29/20 11:00 Resp 20 05/29/20 11:00 BP 139/88 05/29/20 11:00 Pulse Ox 94 L 05/29/20 12:00 Intake & Output 05/28/20 05/29/20 05/29/20 18:59 06:59 18:59 Intake Total 240 590 Balance 240 590 Intake: Oral 240 590 Other: # Voids 2 - Exam GENERAL EXAM: Alert, pleasant 55-year-old -Kosovan gentleman, on RA 02, fairly comfortable in no apparent distress. HEAD: Normocephalic. EYES: Normal reaction of pupils, equal size. NOSE: Clear with pink turbinates. THROAT: No erythema or exudates. NECK: No masses, no JVD. CHEST: No chest wall deformity. LUNGS: Equal air entry with scattered rhonchi, crackles in the posterior bases.. CVS: S1 and S2 normal with no audible murmur, regular rhythm. ABDOMEN: No hepatosplenomegaly, normal bowel sounds, no guarding or rigidity. SPINE: No scoliosis or deformity SKIN: No rashes CENTRAL NERVOUS SYSTEM: No focal deficits, tone is normal in all 4 extremities. EXTREMITIES: There is no peripheral edema. No clubbing, no cyanosis. Peripheral pulses are intact. - Labs CBC & Chem 7: 05/29/20 11:25 05/29/20 11:25 Labs: Abnormal Lab Results - Last 24 Hours (Table) 05/28/20 05/29/20 05/29/20 Range/Units 17:13 11:25 11:25 Hgb 9.4 L (13.0-17.5) gm/dL Hct 33.0 L (39.0-53.0) % MCV 76.8 L (80.0-100.0) fL MCH 21.8 L (25.0-35.0) pg MCHC 28.4 L (31.0-37.0) g/dL RDW 19.5 H (11.5-15.5) % Plt Count 120 L (150-450) k/uL Lymphocytes # 0.9 L (1.0-4.8) k/uL D-Dimer 0.64 H (<0.60) mg/L FEU Carbon Dioxide (22-30) mmol/L Glucose (74-99) mg/dL POC Glucose (mg/dL) 134 H (75-99) mg/dL C-Reactive Protein (<10.0) mg/L 05/29/20 Range/Units 11:25 Hgb (13.0-17.5) gm/dL Hct (39.0-53.0) % MCV (80.0-100.0) fL MCH (25.0-35.0) pg MCHC (31.0-37.0) g/dL RDW (11.5-15.5) % Plt Count (150-450) k/uL Lymphocytes # (1.0-4.8) k/uL D-Dimer (<0.60) mg/L FEU Carbon Dioxide 36 H (22-30) mmol/L Glucose 152 H (74-99) mg/dL POC Glucose (mg/dL) (75-99) mg/dL C-Reactive Protein 35.7 H (<10.0) mg/L Microbiology - Last 24 Hours (Table) 05/26/20 12:14 Blood Culture - Preliminary Blood No Growth after 72 hours Assessment and Plan Plan: 1 Acute hypoxic respiratory failure secondary to acute healthcare acquired and/or aspiration pneumonia. CoVID screen negative. 2 History of previous aspiration pneumonias. 3 History of esophagitis and esophageal stricture/stenosis with previous dilatation 4 Gastric sleeve surgery in December 2019 5 Chronic dysphagia secondary to above 6 History of atrial fibrillation 7 History of diastolic congestive heart failure 8 Hypertension 9 Hiatal hernia 10 Hyperlipidemia 11 History of obstructive sleep apnea 12 History of gout 13 History of neuropathy of the bilateral lower extremities 14 Chronic back pain 15 History of chronic tobacco dependence Plan: Continue with the current treatment plan Titrate down the FiO2 as toleratedand the patient is currently on room air oxygen. Chest x-ray from yesterday showed improvement. No aspiration for now.the patient is still on IV Zosyn. changes and Lovenox at 40 mg subcu for prophylactic shows. We'll continue to follow and make further recommendations based on his clinical status. The patient's plan is to go to a residential
[2020-05-29] MEDS: METOPROLOL TARTRATE 12.5 MG TAB PO SCH (22:58)
[2020-05-29] MEDS: ZOLPIDEM 10 MG TAB PO SCH (22:58)
[2020-05-30] MEDS: PIPERACILLIN-TAZOBACTAM 3.375 GM in SODIUM CHLORIDE 0.9% 100 ML IVPB SCH ×2 (00:08→08:56)
[2020-05-30] MEDS: methylPREDNISolone SOD SUCCI 40 MG/ML 1 ML VIAL IV SCH ×2 (00:08→08:55)
[2020-05-30] MEDS: LACTATED RINGERS 1,000 ML IV SCH ×2 (05:51→12:14)
[2020-05-30] MEDS: ENOXAPARIN 100 MG/ML SYRINGE SQ SCH (08:55)
[2020-05-30] MEDS: ASCORBIC ACID 500 MG TAB PO SCH (08:55)
[2020-05-30] MEDS: METOPROLOL TARTRATE 12.5 MG TAB PO SCH ×2 (08:55→21:04)
[2020-05-30] MEDS: ESCITALOPRAM 10 MG TAB PO SCH (08:55)
[2020-05-30] MEDS: guaiFENesin 600 MG TABLET.ER PO SCH ×4 (08:55→21:04)
[2020-05-30] MEDS: FAMOTIDINE 20 MG TAB PO SCH ×2 (08:55→21:04)
[2020-05-30] MEDS: LACOSAMIDE 50 MG TABLET PO SCH ×2 (08:56→21:04)
[2020-05-30] MEDS: PREGABALIN 100 MG CAP PO SCH ×2 (08:56→21:04)
[2020-05-30] MEDS: PANTOPRAZOLE 40 MG TABLET PO SCH ×2 (08:56→16:58)
[2020-05-30] MEDS: allopurinoL 300 MG TAB PO SCH (08:56)
[2020-05-30] MEDS: ALBUTEROL HFA INHALER INHALATION SCH ×4 (09:14→19:50)
--- NOTE | 2020-05-30 11:17 | P.PN ---
Progress Note - Text Progress Note Date: 05/29/20 Chief Complaint: Short of breath cough History of presenting complaint: This is a very pleasant 55-year-old patient of Dr. Alexandrea Ang. stable medical conditions include hypertension, , gout, chronic bilateral hip pain, peripheral neuropathy. Atrial fibrillation, gastric [place] [address] Zarate. 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 Dumont. baseline - walk slowly because of peripheral neuropathy. In August 2018 patient had EGD done that showed severe erosive esophagitis with esophageal ulcer. readmitted July 05 underwent balloon dilatation of 10-7 mm done. admitted July 22 and underwent EGD by Dr. Carbajal. Found-severe esophagitis and distal esophageal obstruction. A 10 mm dilatation was carried out. Retained food was extracted. Found to have possible aspiration pneumonia bilateral, treat with IV Zosyn-discharge. Dr. Carbajal discharged on Augmentin on July 26. On December 11 and I&D of the right scrotal abscess. - Shobha's gangrene. In December 2019- small bowel obstruction and recurrent hypoglycemia and was then transferred to [facility]. Patient now presented with 3 days of fevers and chills. Increase appetite. Congested cough with clear sputum. Tired rundown. Admitted with pneumonia with suspicion for COVID 19. Started on IV Zosyn, Lovenox, started Medrol. Other medications. Today-feeling better Eating better. Has not had a bowel movement.. Laxative ordered. Feels weak. Being assessed for IBD rehab Review of systems: Was done for constitutional, cardiovascular, GI, pulmonary. relevant finding as above Current medications reviewed in today's electronic records On examination: VITAL SIGNS: [98.1, 87, 22, 111/68, 89% on room air] GENERAL APPEARANCE: In bed, comfortable HEENT: Normal external appearance of nose and ear. Oral cavity normal EYES: Pupils equal. Conjunctiva normal. NECK: JVD not raised. Mass not palpable. RESPIRATORY: Respiratory effort increased, decreased breath sounds. CARDIOVASCULAR: First and second sounds normal. No edema. ABDOMEN: Soft. Liver and spleen not palpable. No tenderness. No mass palpable. PSYCHIATRY: Alert and oriented x3. Mood and affect normal. INVESTIGATIONS, reviewed in the clinical context: May 29: White count 8.1 hemoglobin 9.4 platelets 120 d-dimer 0.64 potassium 4.6 CRP 35.7 to calcitonin 0.12 May: D-dimer 0.92 CRP 137.5 pro-calcitonin 0.23 White count 9 hemoglobin 9.4 which is 123 lymphocytes at 0.7 D-dimer 1.71 potassium 4 creatinine 0.93 lactic acid 2.3 CRP 65.6 pro-BNP 814 Coronavirus P/Cr-not detected, influenza type A type B both not detected EKG tracing personally reviewed by me-sinus rhythm Chest x-ray film personally reviewed by me-shows bilateral infiltrates and possible venous prominence Chest CTA-no PE. Bilateral patchy airspace pneumonia atelectasis in the lower lobes. Assessment: -Pneumonia, suspect gram-negative orgasm. POA-improving -COVID 19, ruled out -Acute severe hypoxia from pneumonia, improving currently on 2 L -Acute COPD exacerbation in a ex-smoker -improving -History of recurrent esophageal stricture with repeat dilatation -History of paraesophageal repair and history of sleeve gastrectomy -Essential hypertension -Primary osteoarthritis -Gout -Idiopathic peripheral neuropathy -Chronic back pain with the pain pump -Anemia of chronic disease -Paroxysmal atrial fibrillation, currently in sinus rhythm Plan: Continue IV Zosyn. , IV Solu-Medrol and Lovenox., Improving. Looking to going to rehab.
[2020-05-30] MEDS: predniSONE 20 MG TAB PO SCH (12:14)
[2020-05-30] MEDS: oxyCODONE-APAP 7.5-325MG 1 EACH TAB PO PRN (12:43)
--- NOTE | 2020-05-30 13:26 | P.PN ---
Subjective Progress Note Date: 05/30/20 The patient on today's evaluation is looking well. The patient has been weaned down his oxygen down to 2 liters and then O2 at room air oxygen. The patient was being treated for aspiration pneumonia. The coronavirus correlating evaluation by PCR came back negative. We were able to wean him down to room air oxygen at this point in time. He is doing well. He is swallowing food. Some limited shortness of breath which is also improving.The patient will have a need further rehabilitation and is looking for [facility] transfer. His cardiac rhythm is sinus. on 05/30/2020, the patient remains on room air oxygen.No complaints. He remains on IV Zosyn. The patient is feeling to get transferred to a [facility]. No aspiration. Objective - Vital Signs Vital signs: Vital Signs Temp 98 F 05/30/20 10:56 Pulse 62 05/30/20 10:56 Resp 22 05/30/20 10:56 BP 145/84 05/30/20 10:56 Pulse Ox 93 L 05/30/20 10:56 Intake & Output 05/29/20 05/30/20 05/30/20 18:59 06:59 18:59 Intake Total 1700 590 Balance 1700 590 Intake: Intake, IV Titration 1700 Amount Lactated Ringers 1,000 ml 1500 @ 125 mls/hr IV .Q8H MATT Rx#:[id number] Piperacillin-Tazobactam 3 200 .375 gm In Sodium Chloride 0.9% 100 ml @ 25 mls/hr IVPB Q8HR MATT Rx# :[id number] Oral 590 Other: # Voids 2 - Exam GENERAL EXAM: Alert, pleasant 55-year-old -Nepalese gentleman, on RA 02, fairly comfortable in no apparent distress. HEAD: Normocephalic. EYES: Normal reaction of pupils, equal size. NOSE: Clear with pink turbinates. THROAT: No erythema or exudates. NECK: No masses, no JVD. CHEST: No chest wall deformity. LUNGS: Equal air entry with scattered rhonchi, crackles in the posterior bases.. CVS: S1 and S2 normal with no audible murmur, regular rhythm. ABDOMEN: No hepatosplenomegaly, normal bowel sounds, no guarding or rigidity. SPINE: No scoliosis or deformity SKIN: No rashes CENTRAL NERVOUS SYSTEM: No focal deficits, tone is normal in all 4 extremities. EXTREMITIES: There is no peripheral edema. No clubbing, no cyanosis. Peripheral pulses are intact. - Labs CBC & Chem 7: 05/29/20 11:25 05/29/20 11:25 Labs: Abnormal Lab Results - Last 24 Hours (Table) 05/29/20 Range/Units 11:25 Procalcitonin 0.12 H (0.02-0.09) ng/mL Microbiology - Last 24 Hours (Table) 05/26/20 12:14 Blood Culture - Preliminary Blood No Growth after 72 hours Assessment and Plan Plan: 1 Acute hypoxic respiratory failure secondary to acute healthcare acquired and/or aspiration pneumonia. CoVID screen negative.the patient is stable. The patient remains on room air oxygen. 2 History of previous aspiration pneumonias. 3 History of esophagitis and esophageal stricture/stenosis with previous dilatation 4 Gastric sleeve surgery in December 2019 5 Chronic dysphagia secondary to above 6 History of atrial fibrillation 7 History of diastolic congestive heart failure 8 Hypertension 9 Hiatal hernia 10 Hyperlipidemia 11 History of obstructive sleep apnea 12 History of gout 13 History of neuropathy of the bilateral lower extremities 14 Chronic back pain 15 History of chronic tobacco dependence Plan: Continue with the current treatment plan currently on room air oxygen. Chest x-ray from yesterday showed improvement. No aspiration for now. stopped IV Zosyn since this patient to Augmentin 875 mg twice a day. Lovenox at 40 mg subcu for prophylactic shows. We'll continue to follow and make further recommendations based on his clinical status. The patient's plan is to go to a nursing home[facility] of pulmonary and critical care services we'll sign off
[2020-05-30] MEDS: ZOLPIDEM 10 MG TAB PO SCH (21:04)
[2020-05-30] MEDS: AMOXIC-POT CLAV 875-125MG 1 EACH TAB PO SCH (21:04)
--- NOTE | 2020-05-30 23:49 | P.PN ---
Progress Note - Text Progress Note Date: 05/30/20 Chief Complaint: Short of breath cough History of presenting complaint: This is a very pleasant 55-year-old patient of Dr. Alexandrea Ang. stable medical conditions include hypertension, , gout, chronic bilateral hip pain, peripheral neuropathy. Atrial fibrillation, gastric [place] [address] Zarate. 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 Dumont. baseline - walk slowly because of peripheral neuropathy. In August 2018 patient had EGD done that showed severe erosive esophagitis with esophageal ulcer. readmitted July 05 underwent balloon dilatation of 10-7 mm done. admitted July 22 and underwent EGD by Dr. Carbajal. Found-severe esophagitis and distal esophageal obstruction. A 10 mm dilatation was carried out. Retained food was extracted. Found to have possible aspiration pneumonia bilateral, treat with IV Zosyn-discharge. Dr. Carbajal discharged on Augmentin on July 26. On December 11 and I&D of the right scrotal abscess. - Shobha's gangrene. In December 2019- small bowel obstruction and recurrent hypoglycemia and was then transferred to [facility]. Patient now presented with 3 days of fevers and chills. Increase appetite. Congested cough with clear sputum. Tired rundown. Admitted with pneumonia with suspicion for COVID 19. Started on IV Zosyn, Lovenox, started Medrol. Other medications. Today-no good oral intake. Breathing better. Awaiting inpatient rehab placement. Review of systems: Was done for constitutional, cardiovascular, GI, pulmonary. relevant finding as above Active Medications Acetaminophen (Acetaminophen Tab 325 Mg Tab) 650 mg PO Q4HR PRN PRN Reason: Fever and/or Mild Pain Albuterol Sulfate (Albuterol Hfa Inhaler) 2 puff INHALATION RT-QID [facility] Last Admin: 05/30/20 19:50 Dose: 2 puff Documented by: Allopurinol (Allopurinol 300 Mg Tab) 300 mg PO DAILY [facility] Last Admin: 05/30/20 08:56 Dose: 300 mg Documented by: Amoxicillin/Clavulanate Potassium (Amoxic-Pot Clav 875-125mg 1 Each Tab) 1 each PO Q12HR [facility] Last Admin: 05/30/20 21:04 Dose: 1 each Documented by: Ascorbic Acid (Ascorbic Acid 500 Mg Tab) 500 mg PO DAILY [facility] Last Admin: 05/30/20 08:55 Dose: 500 mg Documented by: Atorvastatin Calcium (Atorvastatin 20 Mg Tab) 20 mg PO DAILY [facility] Last Admin: 05/29/20 08:57 Dose: 20 mg Documented by: Cyclobenzaprine HCl (Cyclobenzaprine 10 Mg Tab) 10 mg PO BID PRN PRN Reason: Spasms Enoxaparin Sodium (Enoxaparin 40 Mg/0.4 Ml Syringe) 40 mg SQ DAILY [facility] Ergocalciferol (Ergocalciferol 50,000 Unit Cap) 50,000 unit PO MO [facility] Last Admin: 05/29/20 08:57 Dose: 50,000 unit Documented by: Escitalopram Oxalate (Escitalopram 10 Mg Tab) 10 mg PO DAILY [facility] Last Admin: 05/30/20 08:55 Dose: 10 mg Documented by: Famotidine (Famotidine 20 Mg Tab) 20 mg PO BID [facility] Last Admin: 05/30/20 21:04 Dose: 20 mg Documented by: Guaifenesin (Guaifenesin 600 Mg Tablet.Er) 600 mg PO QID [facility] Last Admin: 05/30/20 21:04 Dose: 600 mg Documented by: Lacosamide (Lacosamide 50 Mg Tablet) 50 mg PO BID [facility] Last Admin: 05/30/20 21:04 Dose: 50 mg Documented by: Lisinopril (Lisinopril 2.5 Mg Tab) 2.5 mg PO DAILY [facility] Last Admin: 05/30/20 08:56 Dose: 2.5 mg Documented by: Metoprolol Tartrate (Metoprolol Tartrate 12.5 Mg Tab) 12.5 mg PO BID [facility] Last Admin: 05/30/20 21:04 Dose: 12.5 mg Documented by: Naloxone HCl (Naloxone 0.4 Mg/Ml 1 Ml Vial) 0.2 mg IV Q2M PRN PRN Reason: Opioid Reversal Oxycodone/Acetaminophen (Oxycodone-Apap 7.5-325mg 1 Each Tab) 1 each PO DAILY PRN PRN Reason: Pain Last Admin: 05/30/20 12:43 Dose: 1 each Documented by: Pantoprazole Sodium (Pantoprazole 40 Mg Tablet) 40 mg PO AC-BID [facility] Last Admin: 05/30/20 16:58 Dose: 40 mg Documented by: Prednisone (Prednisone 20 Mg Tab) 40 mg PO DAILY [facility] Last Admin: 05/30/20 12:14 Dose: 40 mg Documented by: Pregabalin (Pregabalin 100 Mg Cap) 300 mg PO BID [facility] Last Admin: 05/30/20 21:04 Dose: 300 mg Documented by: Zolpidem Tartrate (Zolpidem 10 Mg Tab) 10 mg PO HS [facility] Last Admin: 05/30/20 21:04 Dose: 10 mg Documented by: On examination: VITAL SIGNS: [98.6, 72, 22, 116/66, 92% room air GENERAL APPEARANCE: Reclining In bed, comfortable HEENT: Normal external appearance of nose and ear. Oral cavity normal EYES: Pupils equal. Conjunctiva normal. NECK: JVD not raised. Mass not palpable. RESPIRATORY: Respiratory effort increased, decreased breath sounds. CARDIOVASCULAR: First and second sounds normal. No edema. ABDOMEN: Soft. Liver and spleen not palpable. No tenderness. No mass palpable. PSYCHIATRY: Alert and oriented x3. Mood and affect normal. INVESTIGATIONS, reviewed in the clinical context: May 29: White count 8.1 hemoglobin 9.4 platelets 120 d-dimer 0.64 potassium 4.6 CRP 35.7 to calcitonin 0.12 May: D-dimer 0.92 CRP 137.5 pro-calcitonin 0.23 White count 9 hemoglobin 9.4 which is 123 lymphocytes at 0.7 D-dimer 1.71 potassium 4 creatinine 0.93 lactic acid 2.3 CRP 65.6 pro-BNP 814 Coronavirus P/Cr-not detected, influenza type A type B both not detected EKG tracing personally reviewed by me-sinus rhythm Chest x-ray film personally reviewed by me-shows bilateral infiltrates and possible venous prominence Chest CTA-no PE. Bilateral patchy airspace pneumonia atelectasis in the lower lobes. Assessment: -Pneumonia, suspect gram-negative orgasm. POA-improving -COVID 19, ruled out -Acute severe hypoxia from pneumonia, improving currently on 2 L -Acute COPD exacerbation in a ex-smoker -improving -History of recurrent esophageal stricture with repeat dilatation -History of paraesophageal repair and history of sleeve gastrectomy -Essential hypertension -Primary osteoarthritis -Gout -Idiopathic peripheral neuropathy -Chronic back pain with the pain pump -Anemia of chronic disease -Paroxysmal atrial fibrillation, currently in sinus rhythm Plan: Continue IV Zosyn. , Change IV Solu-Medrol to prednisone. and Lovenox., Pending placement to [facility] rehab
[2020-05-31] MEDS: ESCITALOPRAM 10 MG TAB PO SCH (08:16)
[2020-05-31] MEDS: AMOXIC-POT CLAV 875-125MG 1 EACH TAB PO SCH ×2 (08:17→20:04)
[2020-05-31] MEDS: predniSONE 20 MG TAB PO SCH (08:17)
[2020-05-31] MEDS: ASCORBIC ACID 500 MG TAB PO SCH (08:17)
[2020-05-31] MEDS: METOPROLOL TARTRATE 12.5 MG TAB PO SCH ×2 (08:17→20:05)
[2020-05-31] MEDS: FAMOTIDINE 20 MG TAB PO SCH ×2 (08:17→20:05)
[2020-05-31] MEDS: LACOSAMIDE 50 MG TABLET PO SCH ×2 (08:17→20:05)
[2020-05-31] MEDS: ATORVASTATIN 20 MG TAB PO SCH (08:17)
[2020-05-31] MEDS: allopurinoL 300 MG TAB PO SCH (08:17)
[2020-05-31] MEDS: PANTOPRAZOLE 40 MG TABLET PO SCH ×2 (08:18→16:58)
[2020-05-31] MEDS: PREGABALIN 100 MG CAP PO SCH ×2 (08:18→20:04)
[2020-05-31] MEDS: guaiFENesin 600 MG TABLET.ER PO SCH ×4 (08:18→20:05)
[2020-05-31] MEDS ORDERED: ENOXAPARIN 40 MG/0.4 ML SYRINGE SQ SCH (09:00)
[2020-05-31] MEDS: ALBUTEROL HFA INHALER INHALATION SCH ×4 (09:01→19:38)
--- NOTE | 2020-05-31 09:39 | P.CONS ---
History of Present Illness - Chief Complaint Medical debility - History of Present Illness I had the opportunity to see patient for inpatient rehab consultation with regard to medical debility. Patient admitted to [facility] May 26 with shortness of breath and Covid pneumonia 4 months duration. Seen by pulmonary for this. Chest x-rays followed for patchy infiltrates. Angiogram CT negative for PE. PT reports supervision for bed mobility and transfers and minimal assistance for gait 40 feet with roller walker. OT reports supervision for upper dressing and minimal assistance for lower dressing, bathing, toileting and transfers. Previous functional history as elicited from patient: 55-year-old right-handed male who is lives in one floor home with and her parents. On disability related to neuropathy. and the parents do cooking, laundry, driving. Patient independent with sitdown shower and gait with [address] Ang. Denies tobacco or alcohol. Family history father with cancer and mother with heart disease. Review of Systems Review of systems: ENT: Denies sneezes or discharge. Eyes: Denies discharge or photophobia. Cardiac: Denies chest pain or palpitation. Pulmonary: Mild shortness of breath. Gastrointestinal: Denies nausea, emesis, constipation, diarrhea. Genitourinary: Denies discharge or frequency. Musculoskeletal: Denies muscle or bone aches. Neurologic: Perhaps mild generalized weakness. Endocrine: Denies shakes or sweats. Oncology: Denies cancers. Dermatologic: Denies rash, itching, pruritus. ALLERGY/immunology: Denies sneezes, rashes. Past Medical History Past Medical History: Atrial Fibrillation, COPD, CVA/TIA, GERD/Reflux, Hyperlipidemia, Hypertension, Osteoarthritis (OA), Pneumonia, Seizure Disorder, Sleep Apnea/CPAP/BIPAP Additional Past Medical History / Comment(s): hiatal hernia, gout, neuropathy marta legs and feet- states feet are numb, some numbness in legs & tingling in hands., chronic back pain., constipation., dysphagia-hx of EGD with dilation, chronic esophogeal stenosis. Last October 2019, states frequent pneumonia & not sure why, recent admission for History of Any Multi-Drug Resistant Organisms: ESBL Year Discovered:: 04/29/20 ESBL Klebsiella MDRO Source:: Blood Past Surgical History: Back Surgery, Bariatric Surgery, Bowel Resection, Heart Catheterization, Joint Replacement, Orthopedic Surgery Additional Past Surgical History / Comment(s): PAIN PUMP IMPLANTED 07/17/18, HX G ASTRIC SLEEVE AND . BILATERAL KNEE arthroscopy, BILATERAL HIP replacement, LEFT SHOULDER replacement, LEFT ACHILES TENDON SX., RIGHT BIG TOE took piece out, echocardiolgram, spinal fusion, EGD with dilation., STATES HX OF PNEUMONIA WITH LUNG SURGERY., REPAIR OF HIATAL HERNIA & LYSIS OF ADHESIONS Past Anesthesia/Blood Transfusion Reactions: No Reported Reaction Past Psychological History: Anxiety, Depression Smoking Status: Former smoker Past Alcohol Use History: None Reported Past Drug Use History: None Reported - Past Family History Father Family Medical History: Cancer Additional Family Medical History / Comment(s): lung Medications and Allergies Home Medications Medication Instructions Recorded Confirmed Type Allopurinol [Zyloprim] 300 mg PO DAILY 06/04/16 05/26/20 History Escitalopram [Lexapro] 10 mg PO DAILY 06/04/16 05/26/20 History Lacosamide [Vimpat] 50 mg PO BID 03/25/18 05/26/20 History Omeprazole 40 mg PO BID #60 cap 07/06/19 05/26/20 Rx oxyCODONE-APAP 7.5-325MG [Percocet 1 tab PO DAILY PRN #10 tab 12/15/19 05/26/20 Rx 7.5-325 mg] Sildenafil Citrate 100 mg PO DAILY PRN 03/09/20 05/26/20 History Acetaminophen Tab [Tylenol] 650 mg PO Q4HR PRN tab 03/27/20 05/26/20 Rx Cyclobenzaprine [Flexeril] 10 mg PO BID PRN #0 03/27/20 05/26/20 Rx Pregabalin [Lyrica] 300 mg PO BID #6 cap 03/27/20 05/26/20 Rx Ergocalciferol (Vitamin D2) 50,000 unit PO MO 04/28/20 05/26/20 History [Drisdol] Ibuprofen 800 mg PO TID PRN 04/28/20 05/26/20 History Metoprolol Tartrate [Lopressor] 12.5 mg PO BID 04/28/20 05/26/20 History Zolpidem Tartrate [Ambien] 10 mg PO HS 04/28/20 05/26/20 History Atorvastatin [Lipitor] 20 mg PO DAILY #30 tab 05/02/20 05/26/20 Rx Furosemide [Lasix] 20 mg PO DAILY 05/09/20 05/26/20 History Naloxone HCl [Narcan] 1 spray NASAL DIRECTED PRN 05/26/20 05/26/20 History lisinopriL [Zestril] 2.5 mg PO DAILY 05/26/20 05/26/20 History Allergies Allergy/AdvReac Type Severity Reaction Status Date / Time No Known Allergies Allergy Verified 05/26/20 13:19 Physical Exam Vitals: Vital Signs Temp Pulse Resp BP Pulse Ox 05/31/20 04:42 98.3 F 73 18 146/86 95 05/30/20 23:00 98.3 F 68 17 165/87 96 05/30/20 16:38 98.6 F 72 22 116/66 92 L 05/30/20 10:56 98 F 62 22 145/84 93 L Intake and Output 05/30/20 05/31/20 05/31/20 22:59 06:59 14:59 Intake Total 240 480 Output Total 325 Balance -85 480 Intake: Oral 240 480 Output: Urine 325 Skin: Good color, texture, turgor. General: Medium build and comfortable appearance. Head: Normocephalic, atraumatic. Eyes: Symmetric. Pupils equal round. Ears: Symmetric. Hearing within normal limits. Mouth: Clear. Neck: Supple. Carotid without bruit. Cardiac: Regular rate and rhythm. Lungs: Clear anteriorly and posteriorly. Abdomen: Soft active nontender. Extremities: Normal tone. Neurological: Mental status: Alert, cooperative, pleasant. Cranial nerves: Symmetric facial tone and trapezius. Motor: Normal strength and isolation all 4 limbs. Sensation: Intact throughout. DTRs: Symmetric and equal throughout. Mobility: Sits and stands with supervision for safety. In fact sitting and shower chair and showering on own with nurse aide observing from a distance.. Results CBC & Chem 7: 05/29/20 11:25 05/29/20 11:25 Labs: Microbiology - Last 24 Hours (Table) 05/26/20 12:14 Blood Culture - Preliminary Blood No Growth after 96 hours Assessment and Plan (1) COVID-19 determined by clinical diagnostic criteria Current Visit: Yes Status: Acute Code(s): U07.1 - COVID-19 SNOMED Code(s): 008833517 (2) Pneumonia Current Visit: Yes Status: Acute Code(s): J18.9 - PNEUMONIA, UNSPECIFIED ORGANISM SNOMED Code(s): 591801186 Plan: Impression: 1. Medical debility. 2. Covid pneumonia. 3. Hypertension. 4. Dyslipidemia. 5. Sleep apnea. 6. History of stroke. 7. COPD. 8. Atrial fibrillation. 9. Osteoarthritis. 10. Neuropathy as discussed by patient which could in fact be seizure disorder. 11. Reflux. Comments and plan: At this time PT and OT are ongoing. They report minimal assistance for certain tasks. At this time anticipate patient is actually improved beyond this as observed by doing own sitdown shower. Thus at this time do not anticipate need of inpatient rehab. We'll continue to follow with yourself though.
[2020-05-31 12:18] VITALS: RESP 19
[2020-05-31] MEDS: oxyCODONE-APAP 7.5-325MG 1 EACH TAB PO PRN (12:31)
[2020-05-31 16:52] VITALS: BP 128/79; PULSE 74; TEMP 98
[2020-05-31] MEDS: ZOLPIDEM 10 MG TAB PO SCH (20:09)
--- NOTE | 2020-06-01 19:39 | P.DS ---
Providers Date of admission: 05/26/20 14:25 Expected date of discharge: 05/31/20 Attending physician: Chavez Pedraza Consults: 05/26/20 13:33 Consult Physician Routine Consulting Provider: Wilner Gomez Consult Reason/Comments: pneumonia Do you want consulting provider notified?: Yes 05/30/20 23:49 Consult Physician Routine Consulting Provider: Abner Mcbride Consult Reason/Comments: [facility] rehab Do you want consulting provider notified?: Yes Primary care physician: Eric Ang [facility] Course: Chief Complaint: Short of breath cough History of presenting complaint: This is a very pleasant 55-year-old patient of Dr. Alexandrea Ang. stable medical conditions include hypertension, , gout, chronic bilateral hip pain, peripheral neuropathy. Atrial fibrillation, gastric [place] [address] Zarate. 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 Dumont. baseline - walk slowly because of peripheral neuropathy. In August 2018 patient had EGD done that showed severe erosive esophagitis with esophageal ulcer. readmitted July 05 underwent balloon dilatation of 10-7 mm done. admitted July 22 and underwent EGD by Dr. Carbajal. Found-severe esophagitis and distal esophageal obstruction. A 10 mm dilatation was carried out. Retained food was extracted. Found to have possible aspiration pneumonia bilateral, treat with IV Zosyn-discharge. Dr. Carbajal discharged on Augmentin on July 26. On December 11 and I&D of the right scrotal abscess. - Shobha's gangrene. In December 2019- small bowel obstruction and recurrent hypoglycemia and was then transferred to [facility]. Patient now presented with 3 days of fevers and chills. Increase appetite. Congested cough with clear sputum. Tired rundown. Admitted with pneumonia with suspicion for COVID 19-that was ruled out.. Started on IV Zosyn, Lovenox, started Medrol. Other medications. Today-doing well. Eating well.Symptoms much improved. Discussed with patient. Discussed with pillowcase sewer Consultation: Dr. Davidson from pulmonary On examination: VITAL SIGNS: 98.4, 74, 19, 1 28 x 79, 97% room air GENERAL APPEARANCE: Reclining In bed, comfortable HEENT: Normal external appearance of nose and ear. Oral cavity normal EYES: Pupils equal. Conjunctiva normal. NECK: JVD not raised. Mass not palpable. RESPIRATORY: Respiratory effort increased, decreased breath sounds. CARDIOVASCULAR: First and second sounds normal. No edema. ABDOMEN: Soft. Liver and spleen not palpable. No tenderness. No mass palpable. PSYCHIATRY: Alert and oriented x3. Mood and affect normal. INVESTIGATIONS, reviewed in the clinical context: May 29: White count 8.1 hemoglobin 9.4 platelets 120 d-dimer 0.64 potassium 4.6 CRP 35.7 to calcitonin 0.12 May: D-dimer 0.92 CRP 137.5 pro-calcitonin 0.23 White count 9 hemoglobin 9.4 which is 123 lymphocytes at 0.7 D-dimer 1.71 potassium 4 creatinine 0.93 lactic acid 2.3 CRP 65.6 pro-BNP 814 Coronavirus P/Cr-not detected, influenza type A type B both not detected EKG tracing personally reviewed by me-sinus rhythm Chest x-ray film personally reviewed by me-shows bilateral infiltrates and possible venous prominence Chest CTA-no PE. Bilateral patchy airspace pneumonia atelectasis in the lower lobes. Assessment: -Pneumonia, suspect gram-negative orgasm. POA-improving -COVID 19, ruled out -Acute severe hypoxia from pneumonia, improving currently on 2 L -Acute COPD exacerbation in a ex-smoker -improving -History of recurrent esophageal stricture with repeat dilatation -History of paraesophageal repair and history of sleeve gastrectomy -Essential hypertension -Primary osteoarthritis -Gout -Idiopathic peripheral neuropathy -Chronic back pain with the pain pump -Anemia of chronic disease -Paroxysmal atrial fibrillation, currently in sinus rhythm Disposition: Home Patient Condition at Discharge: Stable Plan - Discharge Summary Discharge Rx Participant: Yes New Discharge Prescriptions: New Amoxic-Pot Clav 875-125Mg [Augmentin 875-125] 1 each PO Q12HR #6 tab predniSONE 0 mg PO DIRECTED #10 tab Continue Escitalopram [Lexapro] 10 mg PO DAILY Allopurinol [Zyloprim] 300 mg PO DAILY Lacosamide [Vimpat] 50 mg PO BID Omeprazole 40 mg PO BID #60 cap oxyCODONE-APAP 7.5-325MG [Percocet 7.5-325 mg] 1 tab PO DAILY PRN #10 tab PRN Reason: Pain Sildenafil Citrate 100 mg PO DAILY PRN PRN Reason: ED Acetaminophen Tab [Tylenol] 650 mg PO Q4HR PRN tab PRN Reason: Fever And/Or Mild Pain Cyclobenzaprine [Flexeril] 10 mg PO BID PRN #0 PRN Reason: Spasms Pregabalin [Lyrica] 300 mg PO BID #6 cap Metoprolol Tartrate [Lopressor] 12.5 mg PO BID Zolpidem Tartrate [Ambien] 10 mg PO HS Ergocalciferol (Vitamin D2) [Drisdol] 50,000 unit PO MO Atorvastatin [Lipitor] 20 mg PO DAILY #30 tab Furosemide [Lasix] 20 mg PO DAILY lisinopriL [Zestril] 2.5 mg PO DAILY Discontinued Ibuprofen 800 mg PO TID PRN PRN Reason: Pain Naloxone HCl [Narcan] 1 spray NASAL DIRECTED PRN PRN Reason: OVERDOSE Discharge Medication List Allopurinol [Zyloprim] 300 mg PO DAILY 06/04/16 [History] Escitalopram [Lexapro] 10 mg PO DAILY 06/04/16 [History] Lacosamide [Vimpat] 50 mg PO BID 03/25/18 [History] Omeprazole 40 mg PO BID #60 cap 07/06/19 [Rx] oxyCODONE-APAP 7.5-325MG [Percocet 7.5-325 mg] 1 tab PO DAILY PRN #10 tab 12/15/19 [Rx] Sildenafil Citrate 100 mg PO DAILY PRN 03/09/20 [History] Acetaminophen Tab [Tylenol] 650 mg PO Q4HR PRN tab 03/27/20 [Rx] Cyclobenzaprine [Flexeril] 10 mg PO BID PRN #0 03/27/20 [Rx] Pregabalin [Lyrica] 300 mg PO BID #6 cap 03/27/20 [Rx] Ergocalciferol (Vitamin D2) [Drisdol] 50,000 unit PO MO 04/28/20 [History] Metoprolol Tartrate [Lopressor] 12.5 mg PO BID 04/28/20 [History] Zolpidem Tartrate [Ambien] 10 mg PO HS 04/28/20 [History] Atorvastatin [Lipitor] 20 mg PO DAILY #30 tab 05/02/20 [Rx] Furosemide [Lasix] 20 mg PO DAILY 05/09/20 [History] lisinopriL [Zestril] 2.5 mg PO DAILY 05/26/20 [History] Amoxic-Pot Clav 875-125Mg [Augmentin 875-125] 1 each PO Q12HR #6 tab 05/31/20 [Rx] predniSONE 0 mg PO DIRECTED #10 tab 05/31/20 [Rx] Follow up Appointment(s)/Referral(s): Eric Ang DO [Primary Care Provider] - 1-2 days Patient Instructions/Handouts: Prednisone (By mouth), Amoxicillin/Clavulanate Potassium (By mouth) Activity/Diet/Wound Care/Special Instructions: call in AM to schedule Dr's appointments DIET TOLERATED Activity limited until seen by Dr. Discharge Disposition: HOME SELF-CARE
== END 2020-05-31 21:27 | disposition home or self-care (01) | DRG 177 ==
LOC: EC 11:48 → 6NMEDSUR 14:25
PROVIDERS: ADMIT Hospitalist; ATTEND Hospitalist
DX: J15.6 Pneumonia due to other Gram-negative bacteria (principal); J96.01 Acute respiratory failure with hypoxia; I50.32 Chronic diastolic (congestive) heart failure; J44.1 Chronic obstructive pulmonary disease with (acute) exacerbation; J12.89 Other viral pneumonia; I11.0 Hypertensive heart disease with heart failure; I48.0 Paroxysmal atrial fibrillation; G40.909 Epilepsy, unspecified, not intractable, without status epilepticus; E78.5 Hyperlipidemia, unspecified; Z20.828 Contact with and (suspected) exposure to other viral communicable diseases; K44.9 Diaphragmatic hernia without obstruction or gangrene; R13.10 Dysphagia, unspecified; K22.2 Esophageal obstruction; K21.00 Gastro-esophageal reflux disease with esophagitis, without bleeding; D63.8 Anemia in other chronic diseases classified elsewhere; R53.81 Other malaise; G60.9 Hereditary and idiopathic neuropathy, unspecified; G62.9 Polyneuropathy, unspecified; G47.30 Sleep apnea, unspecified; M10.9 Gout, unspecified; G47.33 Obstructive sleep apnea (adult) (pediatric); G89.29 Other chronic pain; M19.91 Primary osteoarthritis, unspecified site; M25.551 Pain in right hip; M25.552 Pain in left hip; M54.9 Dorsalgia, unspecified; K59.00 Constipation, unspecified; F41.9 Anxiety disorder, unspecified; F32.9 Major depressive disorder, single episode, unspecified; Z98.84 Bariatric surgery status; Z98.1 Arthrodesis status; Z90.49 Acquired absence of other specified parts of digestive tract; Z96.89 Presence of other specified functional implants; Z96.643 Presence of artificial hip joint, bilateral; Z96.612 Presence of left artificial shoulder joint; Z79.899 Other long term (current) drug therapy; Z98.890 Other specified postprocedural states; Z86.73 Personal history of transient ischemic attack (TIA), and cerebral infarction without residual deficits; Z87.01 Personal history of pneumonia (recurrent); Z87.891 Personal history of nicotine dependence; Z87.19 Personal history of other diseases of the digestive system; Z80.9 Family history of malignant neoplasm, unspecified; Z86.19 Personal history of other infectious and parasitic diseases
CPT/HCPCS: 36415; 71045; 71275; 80048; 80053; 82550; 82728; 83605; 83615; 83735; 83880; 84145; 84484; 85025; 85379; 85610; 85730; 86140; 87040; 87502; 87635; 93005; 94640; 96361; 96365; 96366; 96372; 96375; 99291

== ENCOUNTER 2020-08-31 16:38 | Observation (INO) | payer MEDICARE, OTHER ==
[2020-08-31] MEDS ORDERED: SODIUM CHLORIDE 0.9% 1,000 ML IV STA ×3 (17:30→21:25)
[2020-08-31] MEDS ORDERED: SODIUM CHLORIDE 0.9% 500 ML 500 ML IV STA (17:30)
--- NOTE | 2020-08-31 18:00 | ED ---
SOB HPI - General Chief Complaint: Shortness of Breath Stated Complaint: Sent by PCP - Low BP Time Seen by Provider: 08/31/20 17:07 Source: patient, RN notes reviewed Mode of arrival: wheelchair Limitations: no limitations - History of Present Illness Initial Comments: Physical 65-year-old male who presents with complaints of low blood pressure recently over last several days also some shortness of breath. No fevers chills nausea vomiting or other symptoms. MD Complaint: shortness of breath - Related Data Home Medications Medication Instructions Recorded Confirmed Allopurinol [Zyloprim] 300 mg PO DAILY 06/04/16 05/26/20 Escitalopram [Lexapro] 10 mg PO DAILY 06/04/16 05/26/20 Lacosamide [Vimpat] 50 mg PO BID 03/25/18 05/26/20 Sildenafil Citrate 100 mg PO DAILY PRN 03/09/20 05/26/20 Ergocalciferol (Vitamin D2) 50,000 unit PO MO 04/28/20 05/26/20 [Drisdol (50,000 Iu)] Metoprolol Tartrate [Lopressor] 12.5 mg PO BID 04/28/20 05/26/20 Zolpidem Tartrate [Ambien] 10 mg PO HS 04/28/20 05/26/20 Furosemide [Lasix] 20 mg PO DAILY 05/09/20 05/26/20 lisinopriL [Zestril] 2.5 mg PO DAILY 05/26/20 05/26/20 Previous Rx's Medication Instructions Recorded Omeprazole 40 mg PO BID #60 cap 07/06/19 oxyCODONE-APAP 7.5-325MG [Percocet 1 tab PO DAILY PRN #10 tab 12/15/19 7.5-325 mg] Acetaminophen Tab [Tylenol] 650 mg PO Q4HR PRN tab 03/27/20 Cyclobenzaprine [Flexeril] 10 mg PO BID PRN #0 03/27/20 Pregabalin [Lyrica] 300 mg PO BID #6 cap 03/27/20 Atorvastatin [Lipitor] 20 mg PO DAILY #30 tab 05/02/20 Amoxic-Pot Clav 875-125Mg 1 each PO Q12HR #6 tab 05/31/20 [Augmentin 875-125] predniSONE 0 mg PO DIRECTED #10 tab 05/31/20 Allergies Allergy/AdvReac Type Severity Reaction Status Date / Time No Known Allergies Allergy Verified 08/31/20 21:18 Review of Systems ROS Statement: Those systems with pertinent positive or pertinent negative responses have been documented in the HPI. ROS Other: All systems not noted in ROS Statement are negative. Past Medical History Past Medical History: Atrial Fibrillation, COPD, CVA/TIA, GERD/Reflux, Hyperlipidemia, Hypertension, Osteoarthritis (OA), Pneumonia, Seizure Disorder, Sleep Apnea/CPAP/BIPAP Additional Past Medical History / Comment(s): hiatal hernia, gout, neuropathy marta legs and feet- states feet are numb, some numbness in legs & tingling in hands., chronic back pain., constipation., dysphagia-hx of EGD with dilation, chronic esophogeal stenosis. Last October 2019, states frequent pneumonia & not sure why, recent admission for History of Any Multi-Drug Resistant Organisms: ESBL Date of last positivie culture/infection: 04/29/20 ESBL Klebsiella MDRO Source:: Blood Past Surgical History: Back Surgery, Bariatric Surgery, Bowel Resection, Heart Catheterization, Joint Replacement, Orthopedic Surgery Additional Past Surgical History / Comment(s): PAIN PUMP IMPLANTED 07/17/18, HX GASTRIC SLEEVE AND . BILATERAL KNEE arthroscopy, BILATERAL HIP replacement, LEFT SHOULDER replacement, LEFT ACHILES TENDON SX., RIGHT BIG TOE took piece out, echocardiolgram, spinal fusion, EGD with dilation., STATES HX OF PNEUMONIA WITH LUNG SURGERY., REPAIR OF HIATAL HERNIA & LYSIS OF ADHESIONS Past Anesthesia/Blood Transfusion Reactions: No Reported Reaction Past Psychological History: Anxiety, Depression Smoking Status: Former smoker Past Alcohol Use History: None Reported Past Drug Use History: None Reported - Past Family History Father Family Medical History: Cancer Additional Family Medical History / Comment(s): lung General Exam - General Exam Comments Initial Comments: This is a well-developed well-nourished awake alert oriented 3 male Limitations: no limitations General appearance: alert, in no apparent distress Head exam: Present: atraumatic, normocephalic, normal inspection Eye exam: Present: normal appearance, PERRL, EOMI. Absent: scleral icterus, conjunctival injection, periorbital swelling ENT exam: Present: normal exam, mucous membranes moist Neck exam: Present: normal inspection. Absent: tenderness, meningismus, lymphadenopathy Respiratory exam: Present: normal lung sounds bilaterally. Absent: respiratory distress, wheezes, rales, rhonchi, stridor Cardiovascular Exam: Present: regular rate, normal rhythm, normal heart sounds. Absent: systolic murmur, diastolic murmur, rubs, gallop, clicks GI/Abdominal exam: Present: soft, normal bowel sounds. Absent: distended, tenderness, guarding, rebound, rigid Extremities exam: Present: normal inspection, full ROM, normal capillary refill. Absent: tenderness, pedal edema, joint swelling, calf tenderness Back exam: Present: normal inspection Neurological exam: Present: alert, oriented X3, CN II-XII intact Psychiatric exam: Present: normal affect, normal mood Skin exam: Present: warm, dry, intact, normal color. Absent: rash Course Vital Signs 08/31/20 08/31/20 08/31/20 16:46 17:18 17:21 Temperature 97.9 F 98.0 F Pulse Rate 65 67 63 Respiratory 18 18 16 Rate Blood Pressure 87/52 88/78 88/78 O2 Sat by Pulse 91 L 89 L 96 Oximetry 08/31/20 08/31/20 18:32 19:43 Temperature 98.0 F Pulse Rate 61 62 Respiratory 18 16 Rate Blood Pressure 93/69 93/58 O2 Sat by Pulse 98 99 Oximetry - Reevaluation(s) Reevaluation #1: 08/31/20 21:10 Age was resting comfortably no Medical Decision Making - Medical Decision Making I did discuss findings with Dr. Pedraza patient will be admitted for treatment. COPD exacerbation and dehydration - Lab Data Result diagrams: 08/31/20 17:48 08/31/20 17:48 Lab Results 08/31/20 08/31/20 08/31/20 Range/Units 17:48 17:48 17:48 WBC 5.4 (3.8-10.6) k/uL RBC 4.59 (4.30-5.90) m/uL Hgb 9.5 L (13.0-17.5) gm/dL Hct 34.3 L (39.0-53.0) % MCV 74.9 L (80.0-100.0) fL MCH 20.6 L (25.0-35.0) pg MCHC 27.5 L (31.0-37.0) g/dL RDW 18.9 H (11.5-15.5) % Plt Count 174 (150-450) k/uL MPV 7.9 Neutrophils % 60 % Lymphocytes % 27 % Monocytes % 5 % Eosinophils % 6 % Basophils % 0 % Neutrophils # 3.2 (1.3-7.7) k/uL Lymphocytes # 1.5 (1.0-4.8) k/uL Monocytes # 0.3 (0-1.0) k/uL Eosinophils # 0.3 (0-0.7) k/uL Basophils # 0.0 (0-0.2) k/uL Hypochromasia Marked Poikilocytosis Slight Anisocytosis Slight Microcytosis Moderate PT 12.1 H (9.0-12.0) sec INR 1.2 H (<1.2) APTT 23.0 (22.0-30.0) sec Sodium 137 (137-145) mmol/L Potassium 4.5 (3.5-5.1) mmol/L Chloride 101 (98-107) mmol/L Carbon Dioxide 33 H (22-30) mmol/L Anion Gap 3 mmol/L BUN 20 (9-20) mg/dL Creatinine 1.00 (0.66-1.25) mg/dL Est GFR (CKD-EPI)AfAm >90 (>60 ml/min/1.73 sqM) Est GFR (CKD-EPI)NonAf 84 (>60 ml/min/1.73 sqM) Glucose 83 (74-99) mg/dL Plasma Lactic Acid Suresh (0.7-2.0) mmol/L Calcium 8.4 (8.4-10.2) mg/dL Magnesium 1.8 (1.6-2.3) mg/dL Total Bilirubin 0.5 (0.2-1.3) mg/dL AST 27 (17-59) U/L ALT 10 (4-49) U/L Alkaline Phosphatase 94 (38-126) U/L Creatine Kinase 91 (55-170) U/L Troponin I (0.000-0.034) ng/mL NT-Pro-B Natriuret Pep pg/mL Total Protein 7.6 (6.3-8.2) g/dL Albumin 3.6 (3.5-5.0) g/dL 08/31/20 08/31/20 08/31/20 Range/Units 17:48 17:48 17:48 WBC (3.8-10.6) k/uL RBC (4.30-5.90) m/uL Hgb (13.0-17.5) gm/dL Hct (39.0-53.0) % MCV (80.0-100.0) fL MCH (25.0-35.0) pg MCHC (31.0-37.0) g/dL RDW (11.5-15.5) % Plt Count (150-450) k/uL MPV Neutrophils % % Lymphocytes % % Monocytes % % Eosinophils % % Basophils % % Neutrophils # (1.3-7.7) k/uL Lymphocytes # (1.0-4.8) k/uL Monocytes # (0-1.0) k/uL Eosinophils # (0-0.7) k/uL Basophils # (0-0.2) k/uL Hypochromasia Poikilocytosis Anisocytosis Microcytosis PT (9.0-12.0) sec INR (<1.2) APTT (22.0-30.0) sec Sodium (137-145) mmol/L Potassium (3.5-5.1) mmol/L Chloride (98-107) mmol/L Carbon Dioxide (22-30) mmol/L Anion Gap mmol/L BUN (9-20) mg/dL Creatinine (0.66-1.25) mg/dL Est GFR (CKD-EPI)AfAm (>60 ml/min/1.73 sqM) Est GFR (CKD-EPI)NonAf (>60 ml/min/1.73 sqM) Glucose (74-99) mg/dL Plasma Lactic Acid Suresh 0.9 (0.7-2.0) mmol/L Calcium (8.4-10.2) mg/dL Magnesium (1.6-2.3) mg/dL Total Bilirubin (0.2-1.3) mg/dL AST (17-59) U/L ALT (4-49) U/L Alkaline Phosphatase (38-126) U/L Creatine Kinase (55-170) U/L Troponin I <0.012 (0.000-0.034) ng/mL NT-Pro-B Natriuret Pep 117 pg/mL Total Protein (6.3-8.2) g/dL Albumin (3.5-5.0) g/dL - EKG Data -: EKG Interpreted by Me EKG Comments: Sinus rhythm of 60. A 182 QRS 110 daily since QTC 440/440 incomplete left bundle-branch block - Radiology Data Radiology results: report reviewed (Imaging reviewed no definite acute infiltrates.), image reviewed Disposition Clinical Impression: Acute exacerbation of chronic obstructive pulmonary disease, Hypotensive episode, Dehydration Disposition: ADMITTED IP TO THIS [facility] Condition: Fair Referrals: Eric Ang DO [Primary Care Provider] - 1-2 days
[2020-08-31 18:06] LABS: Anisocytosis Slight; Basophils % (A) 0 %; Eosinophils # (A) 0.3 k/uL (0-0.7); Eosinophils % (A) 6 %; HCT 34.3 % (39.0-53.0); HGB 9.5 gm/dL (13.0-17.5); Hypochromasia Marked; Lymphocytes # (A) 1.5 k/uL (1.0-4.8); Lymphocytes % (A) 27 %; MCH 20.6 pg (25.0-35.0); MCHC 27.5 g/dL (31.0-37.0); MCV 74.9 fL (80.0-100.0); Mean Platelet Volume 7.9; Microcytosis Moderate; Monocytes # (A) 0.3 k/uL (0-1.0); Monocytes % (A) 5 %; Neutrophils # (A) 3.2 k/uL (1.3-7.7); Neutrophils % (A) 60 %; Platelet Count 174 k/uL (150-450); Poikilocytosis Slight; RBC 4.59 m/uL (4.30-5.90); RDW 18.9 % (11.5-15.5); WBC 5.4 k/uL (3.8-10.6)
[2020-08-31 18:15] LABS: ALT 10 U/L (4-49); AST 27 U/L (17-59); African American GFR (CKD) >90 (>60 ml/min/1.73 sqM); Albumin 3.6 g/dL (3.5-5.0); Alkaline Phosphatase 94 U/L (38-126); Anion Gap 3 mmol/L; Blood Urea Nitrogen 20 mg/dL (9-20); Calcium 8.4 mg/dL (8.4-10.2); Carbon Dioxide 33 mmol/L (22-30); Chloride 101 mmol/L (98-107); Creatine Kinase 91 U/L (55-170); Glucose 83 mg/dL (74-99); Magnesium 1.8 mg/dL (1.6-2.3); Non-African American GFR(CKD) 84 (>60 ml/min/1.73 sqM); Potassium 4.5 mmol/L (3.5-5.1); Sodium 137 mmol/L (137-145); Total Bilirubin 0.5 mg/dL (0.2-1.3); Total Protein 7.6 g/dL (6.3-8.2)
[2020-08-31 18:25] LABS: INR 1.2 (<1.2); Prothrombin Time 12.1 sec (9.0-12.0)
--- NOTE | 2020-08-31 18:55 | XR ---
EXAMINATION TYPE: XR chest 2V DATE OF EXAM: 08/31/2020 COMPARISON: Chest x-ray May 28, 2020. CTA chest May 26, 2020. HISTORY: Hypotension and difficulty breathing. TECHNIQUE: Frontal and lateral views of the chest are obtained. FINDINGS: There is persistent low lung volumes and central perihilar opacities The cardiac silhouett e size is upper limits of normal. Prominent gas-filled structure or possible dilated esophagus or gas tric pull-up redemonstrated. Correlate clinically. Surgical change cervical thoracic junction redemon strated. IMPRESSION: Lung volumes with persistent central edema and/or infiltrates.
[2020-08-31] MEDS ORDERED: methylPREDNISolone SOD SUCCI 125 MG/2 ML VIAL IV STA (21:22)
[2020-08-31] MEDS ORDERED: CYCLOBENZAPRINE 10 MG TAB PO PRN (21:25)
[2020-08-31] MEDS ORDERED: IPRATROPIUM-ALBUTEROL 3 ML NEB INHALATION PRN (22:41)
[2020-09-01] MEDS ORDERED: IPRATROPIUM-ALBUTEROL 3 ML NEB INHALATION SCH
[2020-09-01] MEDS: methylPREDNISolone SOD SUCCI 125 MG/2 ML VIAL IV SCH ×2 (00:10→06:42)
[2020-09-01] MEDS: IPRATROPIUM-ALBUTEROL 3 ML NEB INHALATION SCH ×4 (07:05→19:45)
[2020-09-01 07:50] LABS: Glucose,Whole Blood 270 mg/dL (75-99)
[2020-09-01] MEDS ORDERED: lisinopriL 5 MG TAB PO SCH (09:00)
[2020-09-01] MEDS: PREGABALIN 100 MG CAP PO SCH ×2 (09:06→21:27)
[2020-09-01] MEDS: PANTOPRAZOLE 40 MG TABLET PO SCH ×2 (09:06→21:27)
[2020-09-01] MEDS: METOPROLOL TARTRATE 25 MG TAB PO SCH ×2 (09:08→21:28)
[2020-09-01] MEDS: allopurinoL 300 MG TAB PO SCH (09:08)
[2020-09-01] MEDS: oxyCODONE-APAP 5-325MG 1 EACH TAB PO PRN (09:13)
[2020-09-01] MEDS: ESCITALOPRAM 10 MG TAB PO SCH (10:16)
[2020-09-01 11:43] LABS: Glucose,Whole Blood 152 mg/dL (75-99)
[2020-09-01] MEDS: SODIUM CHLORIDE 0.9% 1,000 ML IV SCH ×2 (12:12→22:56)
[2020-09-01] MEDS ORDERED: LACTULOSE 20 GM/30 ML CUP PO ONE (13:00)
[2020-09-01] MEDS: ENOXAPARIN 40 MG/0.4 ML SYRINGE SQ SCH (14:26)
[2020-09-01] MEDS ORDERED: ZOLPIDEM 5 MG TAB PO SCH ×2 (21:00)
--- NOTE | 2020-09-01 22:36 | P.HPIM ---
History of Present Illness H&P Date: 09/01/20 Chief Complaint: Dizzy History of presenting complaint: This is a very pleasant 55-year-old patient of Dr. Alexandrea Ang. stable medical conditions include hypertension, , gout, chronic bilateral hip pain, peripheral neuropathy. Atrial fibrillation, gastric [place] [address] Zarate. 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 Dumont. baseline - walk slowly because of peripheral neuropathy. In August 2018 patient had EGD done that showed severe erosive esophagitis with esophageal ulcer. readmitted July 05 2019 underwent balloon dilatation of 10-7 mm done. admitted July 22 and underwent EGD by Dr. Carbajal. Found-severe esophagitis and distal esophageal obstruction. A 10 mm dilatation was carried out. Retained food was extracted. Found to have possible aspiration pneumonia bilateral, treat with IV Zosyn-discharge. Dr. Carbajal discharged on Augmentin on July 26. On December 11 and I&D of the right scrotal abscess. - Shobha's gangrene. In December 2019- small bowel obstruction and recurrent hypoglycemia and was then transferred to [facility]. Patient now presents with getting dizzy on standing up. Appetite is present off and on. He tolerated a bowel movement for last 9 days. Normally has one or 2 bowel movements every week. Had couple of falls or dizziness. Sometimes in his sleep she may rule out out of bed. No fever no chills. Review of systems: GEN.: Tired EYES: None HEENT: None NECK: None RESPIRATORY: Slight cough CARDIOVASCULAR: None GASTROINTESTINAL: None GENITOURINARY: None MUSCULOSKELETAL: Some pains LYMPHATICS: None HEMATOLOGICAL: None PSYCHIATRY: None NEUROLOGICAL: Does use a walker Past medical history to include: Hypertension, gout, peripheral neuropathy, atrial fibrillation, gastric sleeve in 2013, gastric-gastric fistula repair, severe esophagitis, esophageal stenosis dilated, Social history: Smoke one half a pack a day for about 38 years-stopped 2018. . No alcohol. Physical examination: VITAL SIGNS: 98, 67, 18, 88/78, 91% on room air GENERAL: BMI 30.7, laying in bed, awake EYES: Pupils equal. Conjunctiva normal. HEENT: External appearance of nose and ears normal, oral cavity grossly normal. NECK: JVD unable to assess; masses not palpable. HEART: First and second heart sounds are normal; no edema. LUNGS: Respiratory rate increased decreased breath sounds, . ABDOMEN: Soft, nontender, liver spleen not palpable, no masses palpable. Left abdominal wall has a pain pump PSYCH: Alert and oriented x3; mood and affect anxious NEUROLOGICAL: Cranial nerves grossly intact; no facial asymmetry, power and sensation grossly intact. LYMPHATICS: No lymph nodes palpable in the axilla and neck INVESTIGATIONS, reviewed in the clinical context: WBC 5.4 hemoglobin 9.5 platelets 174 potassium 4.5 creatinine 1 Troponin I less than 0.012 Coronavirus [PCR]-not detected EKG tracing personally reviewed by me-normal sinus rhythm incomplete left bundle-branch block Chest x-ray film personally reviewed by me-questionable infiltrate. Other chronic changes. Assessment: -Hypotension-contribution from decreased oral intake. Patient presented episodes of dizziness on standing up found to be hypotensive. We'll discontinue patient's Zestril. IV fluids. - COPD in a ex-smoker -History of recurrent esophageal stricture with repeat dilatation -History of paraesophageal repair and history of sleeve gastrectomy -Essential hypertension -Primary osteoarthritis -Gout -Idiopathic peripheral neuropathy -Chronic back pain with the pain pump -Anemia of chronic disease -Paroxysmal atrial fibrillation, currently in sinus rhythm continue with beta raf. Care was discussed with the patient. Questions answered. Repeat labs in the morning. Check blood pressure and orthostatics every shift Past Medical History Past Medical History: Atrial Fibrillation, COPD, CVA/TIA, GERD/Reflux, Hyperlipidemia, Hypertension, Osteoarthritis (OA), Pneumonia, Seizure Disorder, Sleep Apnea/CPAP/BIPAP Additional Past Medical History / Comment(s): hiatal hernia, gout, neuropathy marta legs and feet- states feet are numb, some numbness in legs & tingling in hands., chronic back pain., constipation., dysphagia-hx of EGD with dilation, chronic esophogeal stenosis. Last October 2019, states frequent pneumonia & not sure why, recent admission for History of Any Multi-Drug Resistant Organisms: ESBL Date of last positivie culture/infection: 04/29/20 ESBL Klebsiella MDRO Source:: Blood Past Surgical History: Back Surgery, Bariatric Surgery, Bowel Resection, Heart Catheterization, Joint Replacement, Orthopedic Surgery Additional Past Surgical History / Comment(s): PAIN PUMP IMPLANTED 1/25/19, HX GASTRIC SLEEVE AND . BILATERAL KNEE arthroscopy, BILATERAL HIP replacement, LEFT SHOULDER replacement, LEFT ACHILES TENDON SX., RIGHT BIG TOE took piece out, echocardiolgram, spinal fusion, EGD with dilation., STATES HX OF PNEUMONIA WITH LUNG SURGERY., REPAIR OF HIATAL HERNIA & LYSIS OF ADHESIONS Past Anesthesia/Blood Transfusion Reactions: No Reported Reaction Past Psychological History: Anxiety, Depression Smoking Status: Former smoker Past Alcohol Use History: None Reported Additional Past Alcohol Use History / Comment(s): quit smoking 2017, smoked since age 21, 1 PPD Past Drug Use History: None Reported - Past Family History Father Family Medical History: Cancer Additional Family Medical History / Comment(s): lung Medications and Allergies Home Medications Medication Instructions Recorded Confirmed Type Allopurinol [Zyloprim] 300 mg PO DAILY 06/04/16 08/31/20 History Escitalopram [Lexapro] 10 mg PO DAILY 06/04/16 08/31/20 History Omeprazole 40 mg PO BID #60 cap 07/06/19 08/31/20 Rx Cyclobenzaprine [Flexeril] 10 mg PO BID PRN #0 03/27/20 08/31/20 Rx Pregabalin [Lyrica] 300 mg PO BID #6 cap 03/27/20 08/31/20 Rx Metoprolol Tartrate [Lopressor] 12.5 mg PO BID 04/28/20 08/31/20 History Zolpidem Tartrate [Ambien] 10 mg PO HS 04/28/20 08/31/20 History lisinopriL [Zestril] 2.5 mg PO DAILY 05/26/20 08/31/20 History oxyCODONE HCL/ACETAMINOPHEN 1 tab PO QID PRN 08/31/20 08/31/20 History [Percocet 5-325 mg] Allergies Allergy/AdvReac Type Severity Reaction Status Date / Time No Known Allergies Allergy Verified 08/31/20 21:18 Physical Exam Vitals: Vital Signs Temp Pulse Pulse Resp BP BP Pulse Ox 09/01/20 11:03 84 09/01/20 10:54 88 09/01/20 08:00 16 09/01/20 07:42 98.8 F 95 16 144/85 94 L 09/01/20 07:08 93 16 96 09/01/20 06:46 74 16 140/81 93 L 08/31/20 21:43 54 L 16 104/77 98 08/31/20 19:43 62 16 93/58 99 08/31/20 18:32 98.0 F 61 18 93/69 98 08/31/20 17:21 63 16 88/78 96 08/31/20 17:18 98.0 F 67 18 88/78 89 L 08/31/20 16:46 97.9 F 65 18 87/52 91 L Intake and Output 08/31/20 09/01/20 09/01/20 22:59 06:59 14:59 Other: Weight 114.305 kg 114.305 kg Results CBC & Chem 7: 08/31/20 17:48 08/31/20 17:48 Labs: Abnormal Lab Results - Last 24 Hours (Table) 08/31/20 08/31/20 08/31/20 Range/Units 17:48 17:48 17:48 Hgb 9.5 L (13.0-17.5) gm/dL Hct 34.3 L (39.0-53.0) % MCV 74.9 L (80.0-100.0) fL MCH 20.6 L (25.0-35.0) pg MCHC 27.5 L (31.0-37.0) g/dL RDW 18.9 H (11.5-15.5) % PT 12.1 H (9.0-12.0) sec INR 1.2 H (<1.2) Carbon Dioxide 33 H (22-30) mmol/L POC Glucose (mg/dL) (75-99) mg/dL 09/01/20 Range/Units 07:45 Hgb (13.0-17.5) gm/dL Hct (39.0-53.0) % MCV (80.0-100.0) fL MCH (25.0-35.0) pg MCHC (31.0-37.0) g/dL RDW (11.5-15.5) % PT (9.0-12.0) sec INR (<1.2) Carbon Dioxide (22-30) mmol/L POC Glucose (mg/dL) 270 H (75-99) mg/dL Thrombosis Risk Factor Assmnt - Choose All That Apply Any of the Below Risk Factors Present?: Yes Each Factor Represents 1 point: Abnormal pulmonary function (COPD), Age 41-60 years, Medical pt on bed rest, Obesity (BMI >25), Swollen legs (current), Varicose veins Other Risk Factors: Yes (hx atrial fib) Thrombosis Risk Factor Assessment Total Risk Factor Score: 6 Thrombosis Risk Factor Assessment Level: High Risk
[2020-09-02 06:07] LABS: African American GFR (CKD) >90 (>60 ml/min/1.73 sqM); Anion Gap 3 mmol/L; Blood Urea Nitrogen 18 mg/dL (9-20); Calcium 8.3 mg/dL (8.4-10.2); Carbon Dioxide 32 mmol/L (22-30); Chloride 103 mmol/L (98-107); Glucose 98 mg/dL (74-99); Non-African American GFR(CKD) >90 (>60 ml/min/1.73 sqM); Potassium 4.1 mmol/L (3.5-5.1); Sodium 138 mmol/L (137-145)
[2020-09-02 08:02] VITALS: BP 123/68; RESP 16; TEMP 97.9
[2020-09-02] MEDS: IPRATROPIUM-ALBUTEROL 3 ML NEB INHALATION SCH ×2 (08:24→11:44)
[2020-09-02] MEDS: ENOXAPARIN 40 MG/0.4 ML SYRINGE SQ SCH (08:43)
[2020-09-02] MEDS: PREGABALIN 100 MG CAP PO SCH (08:43)
[2020-09-02] MEDS: PANTOPRAZOLE 40 MG TABLET PO SCH (08:43)
[2020-09-02] MEDS: METOPROLOL TARTRATE 25 MG TAB PO SCH (08:43)
[2020-09-02] MEDS: ESCITALOPRAM 10 MG TAB PO SCH (08:43)
[2020-09-02] MEDS: allopurinoL 300 MG TAB PO SCH (08:43)
[2020-09-02] MEDS: oxyCODONE-APAP 5-325MG 1 EACH TAB PO PRN (08:49)
[2020-09-02 09:35] VITALS: PULSE 71
--- NOTE | 2020-09-03 23:13 | P.DS ---
Providers Date of admission: 08/31/20 21:06 Expected date of discharge: 09/03/20 Attending physician: Chavez Pedraza Primary care physician: Eric Ang [facility] Course: Chief Complaint: Dizzy History of presenting complaint: This is a very pleasant 55-year-old patient of Dr. Alexandrea Ang. stable medical conditions include hypertension, , gout, chronic bilateral hip pain, peripheral neuropathy. Atrial fibrillation, gastric sleeve [place] [address] Zarate. 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 Dumont. baseline - walk slowly because of peripheral neuropathy. In August 2018 patient had EGD done that showed severe erosive esophagitis with esophageal ulcer. readmitted July 05 2019 underwent balloon dilatation of 10-7 mm done. admitted July 22 and underwent EGD by Dr. Carbajal. Found-severe esophagitis and distal esophageal obstruction. A 10 mm dilatation was carried out. Retained food was extracted. Found to have possible aspiration pneumonia bilateral, treat with IV Zosyn-discharge. Dr. Carbajal discharged on Augmentin on July 26. On December 11 and I&D of the right scrotal abscess. - Shobha's gangrene. In December 2019- small bowel obstruction and recurrent hypoglycemia and was then transferred to [facility]. Patient now presents with getting dizzy on standing up. Appetite is present off and on. No bowel movement for last 9 days. Normally has one or 2 bowel movements every week. Had couple of falls with dizziness. Sometimes in his sleep he may roll out out of bed. No fever no chills. Patient is found to be relatively hypotensive. Dehydrated. Given IV fluids. VICKIE inhibitor was discontinued. Also dose of Ambien was cut back to half Care was discussed the patient. Questions answered. Doing well. Past medical history to include: Hypertension, gout, peripheral neuropathy, atrial fibrillation, gastric sleeve in 2013, gastric-gastric fistula repair, severe esophagitis, esophageal stenosis dilated, Social history: Smoke one half a pack a day for about 38 years-stopped 2018. . No alcohol. Physical examination: VITAL SIGNS: 97.9, 71, 16, 1 23 x 68, 96% room air GENERAL: BMI 30.7, laying in bed, awake EYES: Pupils equal. Conjunctiva normal. HEENT: External appearance of nose and ears normal, oral cavity grossly normal. NECK: JVD unable to assess; masses not palpable. HEART: First and second heart sounds are normal; no edema. LUNGS: Respiratory rate increased decreased breath sounds, . ABDOMEN: Soft, nontender, liver spleen not palpable, no masses palpable. Left abdominal wall has a pain pump PSYCH: Alert and oriented x3; mood and affect anxious INVESTIGATIONS, reviewed in the clinical context: September 02: Potassium 4.1 creatinine 0.89 WBC 5.4 hemoglobin 9.5 platelets 174 potassium 4.5 creatinine 1 Troponin I less than 0.012 Coronavirus [PCR]-not detected EKG tracing personally reviewed by me-normal sinus rhythm incomplete left bundle-branch block Chest x-ray film personally reviewed by me-questionable infiltrate. Other chronic changes. Assessment: -Hypotension-contribution from decreased oral intake. Patient presented episodes of dizziness on standing up found to be hypotensive. Zestril discontinued. Given IV fluids - COPD in a ex-smoker -History of recurrent esophageal stricture with repeat dilatation -History of paraesophageal repair and history of sleeve gastrectomy -Essential hypertension -Primary osteoarthritis -Gout -Idiopathic peripheral neuropathy -Chronic back pain with the pain pump -Anemia of chronic disease -Paroxysmal atrial fibrillation, currently in sinus rhythm continue with beta raf. -Hypersomnolent from increased dose of Ambien. Told cut back to half Disposition: Home Patient Condition at Discharge: Fair Plan - Discharge Summary New Discharge Prescriptions: New Zolpidem [Ambien] 5 mg PO HS #30 tab Continue Escitalopram [Lexapro] 10 mg PO DAILY Allopurinol [Zyloprim] 300 mg PO DAILY Omeprazole 40 mg PO BID #60 cap Cyclobenzaprine [Flexeril] 10 mg PO BID PRN #0 PRN Reason: Spasms Pregabalin [Lyrica] 300 mg PO BID #6 cap Metoprolol Tartrate [Lopressor] 12.5 mg PO BID oxyCODONE HCL/ACETAMINOPHEN [Percocet 5-325 mg] 1 tab PO QID PRN PRN Reason: Pain Discontinued Zolpidem Tartrate [Ambien] 10 mg PO HS lisinopriL [Zestril] 2.5 mg PO DAILY Discharge Medication List Allopurinol [Zyloprim] 300 mg PO DAILY 06/04/16 [History] Escitalopram [Lexapro] 10 mg PO DAILY 06/04/16 [History] Omeprazole 40 mg PO BID #60 cap 07/06/19 [Rx] Cyclobenzaprine [Flexeril] 10 mg PO BID PRN #0 03/27/20 [Rx] Pregabalin [Lyrica] 300 mg PO BID #6 cap 03/27/20 [Rx] Metoprolol Tartrate [Lopressor] 12.5 mg PO BID 04/28/20 [History] oxyCODONE HCL/ACETAMINOPHEN [Percocet 5-325 mg] 1 tab PO QID PRN 08/31/20 [History] Zolpidem [Ambien] 5 mg PO HS #30 tab 09/02/20 [Rx] Follow up Appointment(s)/Referral(s): Eric Ang DO [Primary Care Provider] - 1-2 days Discharge Disposition: HOME SELF-CARE
== END 2020-09-02 13:02 | disposition home or self-care (01) ==
LOC: EC 16:38 → 6NMEDSUR 21:06
PROVIDERS: ADMIT Hospitalist; ATTEND Hospitalist
DX: I95.9 Hypotension, unspecified (principal); J44.1 Chronic obstructive pulmonary disease with (acute) exacerbation; K22.2 Esophageal obstruction; I10 Essential (primary) hypertension; M10.9 Gout, unspecified; G60.9 Hereditary and idiopathic neuropathy, unspecified; G57.93 Unspecified mononeuropathy of bilateral lower limbs; G89.29 Other chronic pain; M54.9 Dorsalgia, unspecified; M19.91 Primary osteoarthritis, unspecified site; D63.8 Anemia in other chronic diseases classified elsewhere; I48.0 Paroxysmal atrial fibrillation; G47.10 Hypersomnia, unspecified; K21.9 Gastro-esophageal reflux disease without esophagitis; E78.5 Hyperlipidemia, unspecified; G47.30 Sleep apnea, unspecified; G40.909 Epilepsy, unspecified, not intractable, without status epilepticus; K59.00 Constipation, unspecified; R13.10 Dysphagia, unspecified; F41.9 Anxiety disorder, unspecified; F32.9 Major depressive disorder, single episode, unspecified; E86.0 Dehydration; M25.551 Pain in right hip; M25.552 Pain in left hip; K44.9 Diaphragmatic hernia without obstruction or gangrene; M62.838 Other muscle spasm; Z79.899 Other long term (current) drug therapy; Z86.73 Personal history of transient ischemic attack (TIA), and cerebral infarction without residual deficits; Z87.01 Personal history of pneumonia (recurrent); Z99.89 Dependence on other enabling machines and devices; Z16.24 Resistance to multiple antibiotics; Z98.84 Bariatric surgery status; Z96.643 Presence of artificial hip joint, bilateral; Z96.612 Presence of left artificial shoulder joint; Z98.1 Arthrodesis status; Z87.891 Personal history of nicotine dependence; R29.6 Repeated falls; Z20.822 Contact with and (suspected) exposure to COVID-19; Z80.1 Family history of malignant neoplasm of trachea, bronchus and lung; Z87.19 Personal history of other diseases of the digestive system
CPT/HCPCS: 96361 ×4; 96372 ×2; 96376; 96374; 99285; 36415; 94640 ×3; 94760; 93005; 83880; 80053; 80048; 82550; 83605; 83735; 84484; 85025; 85610; 85730; 84145; 87635; 71046; G0378 ×3; J2930 ×2; J1650 ×2

== ENCOUNTER 2020-09-26 01:15 | Inpatient (IN) | payer MEDICARE, OTHER ==
[2020-09-26] MEDS ORDERED: KETOROLAC 15 MG/ML 1 ML VIAL IVP STA (01:44)
[2020-09-26] MEDS ORDERED: ACETAMINOPHEN TAB 500 MG TAB PO STA (01:44)
[2020-09-26] MEDS ORDERED: SODIUM CHLORIDE 0.9% 1,000 ML IV STA ×2 (01:44)
[2020-09-26] MEDS ORDERED: DEXAMETHASONE SOD PHOSPHATE 10 MG/ML 1 ML VIAL IV STA (01:44)
[2020-09-26] MEDS ORDERED: ALBUTEROL HFA INHALER INHALATION STA (01:44)
--- NOTE | 2020-09-26 01:45 | ED ---
SOB HPI - General Chief Complaint: Shortness of Breath Stated Complaint: SOB Time Seen by Provider: 09/26/20 01:44 Source: patient, RN notes reviewed, old records reviewed Mode of arrival: wheelchair Limitations: no limitations - History of Present Illness Initial Comments: This is a 55-year-old male DF for evaluation patient is evaluation of a shortnes s with chills shortness breath cough concern for coronavirus. Patient is no significant chest pain. Patient also again does have complicated medical history. No known significant sick contacts. Again he is concerned for coronavirus MD Complaint: shortness of breath, cough, chest pain -: days(s) Severity: moderate Severity scale (1-10): 4 Quality: aching, throbbing Consistency: constant Improves With: oxygen Worsens With: exertion, movement Known History Of: COPD Context: recent URI, recent illness Associated Symptoms: fever, cough, sputum production, diaphoresis Treatments Prior to Arrival: oxygen - Related Data Home Medications Medication Instructions Recorded Confirmed Allopurinol [Zyloprim] 300 mg PO DAILY 06/04/16 10/05/20 Escitalopram [Lexapro] 10 mg PO DAILY 06/04/16 10/05/20 Metoprolol Tartrate [Lopressor] 12.5 mg PO BID 04/28/20 10/05/20 oxyCODONE HCL/ACETAMINOPHEN 1 tab PO QID PRN 08/31/20 10/05/20 [Percocet 5-325 mg] Ergocalciferol [Vitamin D2 (1250 1,250 mcg PO MO 09/26/20 10/05/20 Mcg = 80561 Iu)] polyethylene glycoL 3350 [Miralax] 17 gm PO DAILY 09/26/20 10/05/20 Previous Rx's Medication Instructions Recorded Omeprazole 40 mg PO BID #60 cap 07/06/19 Cyclobenzaprine [Flexeril] 10 mg PO BID PRN #0 03/27/20 Zolpidem [Ambien] 5 mg PO HS #30 tab 09/02/20 Pregabalin [Lyrica] 300 mg PO HS #1 cap 10/09/20 Sulfamethox-Tmp 800-160Mg [Bactrim 1 tab PO Q12HR 10 Days #20 tab 10/09/20 DS 800-160 mg] Allergies Allergy/AdvReac Type Severity Reaction Status Date / Time No Known Allergies Allergy Verified 10/05/20 17:00 Review of Systems ROS Statement: Those systems with pertinent positive or pertinent negative responses have been documented in the HPI. ROS Other: All systems not noted in ROS Statement are negative. Past Medical History Past Medical History: Atrial Fibrillation, COPD, CVA/TIA, GERD/Reflux, Hyperlipidemia, Hypertension, Osteoarthritis (OA), Pneumonia, Seizure Disorder, Sleep Apnea/CPAP/BIPAP Additional Past Medical History / Comment(s): hiatal hernia, gout, neuropathy marta legs and feet- states feet are numb, some numbness in legs & tingling in hands., chronic back pain., constipation., dysphagia-hx of EGD with dilation, chronic esophogeal stenosis. Last October 2019, states frequent pneumonia & not sure why, recent admission for History of Any Multi-Drug Resistant Organisms: ESBL Date of last positivie culture/infection: 04/29/20 ESBL Klebsiella MDRO Source:: Blood Past Surgical History: Back Surgery, Bariatric Surgery, Bowel Resection, Heart Catheterization, Joint Replacement, Orthopedic Surgery Additional Past Surgical History / Comment(s): PAIN PUMP IMPLANTED 07/17/18, HX GASTRIC SLEEVE AND . BILATERAL KNEE arthroscopy, BILATERAL HIP replacement, LEFT SHOULDER replacement, LEFT ACHILES TENDON SX., RIGHT BIG TOE took piece out, echocardiolgram, spinal fusion, EGD with dilation., STATES HX OF PNEUMONIA WITH LUNG SURGERY., REPAIR OF HIATAL HERNIA & LYSIS OF ADHESIONS Past Anesthesia/Blood Transfusion Reactions: No Reported Reaction Past Psychological History: Anxiety, Depression Smoking Status: Former smoker Past Alcohol Use History: None Reported Past Drug Use History: None Reported - Past Family History Father Family Medical History: Cancer Additional Family Medical History / Comment(s): lung Mother Family Medical History: Coronary Artery Disease (CAD) Additional Family Medical History / Comment(s): . General Exam Limitations: no limitations General appearance: alert, anxious, in distress Head exam: Present: atraumatic, normocephalic, normal inspection Eye exam: Present: normal appearance, PERRL, EOMI. Absent: scleral icterus, conjunctival injection, periorbital swelling ENT exam: Present: normal exam, mucous membranes moist Neck exam: Present: normal inspection. Absent: tenderness, meningismus, lymphadenopathy Respiratory exam: Present: normal lung sounds bilaterally. Absent: respiratory distress, wheezes, rales, rhonchi, stridor Cardiovascular Exam: Present: normal rhythm, tachycardia, normal heart sounds. Absent: systolic murmur, diastolic murmur, rubs, gallop, clicks GI/Abdominal exam: Present: soft, normal bowel sounds. Absent: distended, tenderness, guarding, rebound, rigid Extremities exam: Present: normal inspection, full ROM, normal capillary refill. Absent: tenderness, pedal edema, joint swelling, calf tenderness Back exam: Present: normal inspection Neurological exam: Present: alert, oriented X3, CN II-XII intact Psychiatric exam: Present: normal affect, normal mood Skin exam: Present: warm, dry, intact, normal color. Absent: rash Course Vital Signs 09/26/20 09/26/20 09/26/20 01:21 02:53 02:54 Temperature 99.2 F Pulse Rate 123 H Respiratory 24 28 H Rate Blood Pressure 107/54 O2 Sat by Pulse 66 L 90 L Oximetry 09/26/20 09/26/20 09/26/20 03:00 05:41 06:00 Temperature Pulse Rate 107 H 86 81 Respiratory 22 18 18 Rate Blood Pressure 137/76 104/67 109/74 O2 Sat by Pulse 90 L 95 96 Oximetry - Reevaluation(s) Reevaluation #1: Medical record is reviewed Patient symptoms are significantly improved here in the emergency department Patient family informed of results, questions answered Patient improvement here with chemotherapy and oh to palpation October significantly hypoxic on arrival Medical Decision Making - Medical Decision Making 55 male with signs and symptoms of coronavirus on x-ray as well as pulse oxygenation. Patient be admitted for continued supportive care - Lab Data Result diagrams: 09/28/20 05:12 09/28/20 05:12 Lab Results 09/26/20 09/26/20 09/26/20 Range/Units 01:33 02:23 02:23 WBC 3.8 (3.8-10.6) k/uL RBC 5.07 (4.30-5.90) m/uL Hgb 10.7 L (13.0-17.5) gm/dL Hct 37.8 L (39.0-53.0) % MCV 74.6 L (80.0-100.0) fL MCH 21.1 L (25.0-35.0) pg MCHC 28.3 L (31.0-37.0) g/dL RDW 19.5 H (11.5-15.5) % Plt Count 140 L (150-450) k/uL MPV 9.5 Neutrophils % 79 % Lymphocytes % 12 % Monocytes % 7 % Eosinophils % 1 % Basophils % 0 % Neutrophils # 3.0 (1.3-7.7) k/uL Lymphocytes # 0.5 L (1.0-4.8) k/uL Monocytes # 0.3 (0-1.0) k/uL Eosinophils # 0.1 (0-0.7) k/uL Basophils # 0.0 (0-0.2) k/uL Hypochromasia Marked Poikilocytosis Moderate Anisocytosis Slight Microcytosis Moderate PT 11.3 (9.0-12.0) sec INR 1.1 (<1.2) APTT 22.9 (22.0-30.0) sec Sodium (137-145) mmol/L Potassium (3.5-5.1) mmol/L Chloride (98-107) mmol/L Carbon Dioxide (22-30) mmol/L Anion Gap mmol/L BUN (9-20) mg/dL Creatinine (0.66-1.25) mg/dL Est GFR (CKD-EPI)AfAm (>60 ml/min/1.73 sqM) Est GFR (CKD-EPI)NonAf (>60 ml/min/1.73 sqM) Glucose (74-99) mg/dL Plasma Lactic Acid Suresh (0.7-2.0) mmol/L Calcium (8.4-10.2) mg/dL Magnesium (1.6-2.3) mg/dL Total Bilirubin (0.2-1.3) mg/dL AST (17-59) U/L ALT (4-49) U/L Alkaline Phosphatase (38-126) U/L Lactate Dehydrogenase (313-618) U/L C-Reactive Protein (<10.0) mg/L Total Protein (6.3-8.2) g/dL Albumin (3.5-5.0) g/dL Coronavirus (PCR) Not Detected (Not Detectd) 09/26/20 09/26/20 Range/Units 02:23 02:23 WBC (3.8-10.6) k/uL RBC (4.30-5.90) m/uL Hgb (13.0-17.5) gm/dL Hct (39.0-53.0) % MCV (80.0-100.0) fL MCH (25.0-35.0) pg MCHC (31.0-37.0) g/dL RDW (11.5-15.5) % Plt Count (150-450) k/uL MPV Neutrophils % % Lymphocytes % % Monocytes % % Eosinophils % % Basophils % % Neutrophils # (1.3-7.7) k/uL Lymphocytes # (1.0-4.8) k/uL Monocytes # (0-1.0) k/uL Eosinophils # (0-0.7) k/uL Basophils # (0-0.2) k/uL Hypochromasia Poikilocytosis Anisocytosis Microcytosis PT (9.0-12.0) sec INR (<1.2) APTT (22.0-30.0) sec Sodium 138 (137-145) mmol/L Potassium 4.5 (3.5-5.1) mmol/L Chloride 100 (98-107) mmol/L Carbon Dioxide 34 H (22-30) mmol/L Anion Gap 4 mmol/L BUN 24 H (9-20) mg/dL Creatinine 1.17 (0.66-1.25) mg/dL Est GFR (CKD-EPI)AfAm 80 (>60 ml/min/1.73 sqM) Est GFR (CKD-EPI)NonAf 69 (>60 ml/min/1.73 sqM) Glucose 80 (74-99) mg/dL Plasma Lactic Acid Suresh 2.0 (0.7-2.0) mmol/L Calcium 8.5 (8.4-10.2) mg/dL Magnesium 1.7 (1.6-2.3) mg/dL Total Bilirubin 0.7 (0.2-1.3) mg/dL AST 33 (17-59) U/L ALT 10 (4-49) U/L Alkaline Phosphatase 103 (38-126) U/L Lactate Dehydrogenase 617 (313-618) U/L C-Reactive Protein 15.4 H (<10.0) mg/L Total Protein 7.5 (6.3-8.2) g/dL Albumin 3.7 (3.5-5.0) g/dL Coronavirus (PCR) (Not Detectd) - EKG Data -: EKG Interpreted by Me (EKG is sinus tachycardia 109 NM 144 QRS 90 QTC 476) - Radiology Data Radiology results: report reviewed (Chest x-ray bilateral lower lobe infiltrates), image reviewed Critical Care Time Critical Care Time: Yes Total Critical Care Time: 31 Disposition Clinical Impression: Morbid obesity due to excess calories, COPD (chronic obstructive pulmonary disease), Pneumonia, Hypoxia Narrative: ro COVID pneumonia Disposition: ADMITTED IP TO THIS HOSP Condition: Fair Is patient prescribed a controlled substance at d/c from ED?: No
--- NOTE | 2020-09-26 02:36 | XR ---
EXAM: XR Chest, 1 View CLINICAL HISTORY: ITS.REASON XR Reason: Suspected COVID-19 pneumonia TECHNIQUE: Frontal view of the chest. COMPARISON: 05/28/20 FINDINGS: Limitations: Patient rotation. Lungs: Hypoventilatory lungs. Right greater than left interstitial and patchy airspace opacities. Pleural space: No significant abnormality. No pneumothorax. Heart: Stable cardiomediastinal silhouette. Mediastinum: See above. Bones/joints: No acute osseous abnormality. IMPRESSION: Bilateral airspace and interstitial opacities are concerning for an infectious or inflammatory process.
[2020-09-26 03:00] LABS: Anisocytosis Slight; Basophils % (A) 0 %; Eosinophils # (A) 0.1 k/uL (0-0.7); Eosinophils % (A) 1 %; HCT 37.8 % (39.0-53.0); HGB 10.7 gm/dL (13.0-17.5); Hypochromasia Marked; Lymphocytes # (A) 0.5 k/uL (1.0-4.8); Lymphocytes % (A) 12 %; MCH 21.1 pg (25.0-35.0); MCHC 28.3 g/dL (31.0-37.0); MCV 74.6 fL (80.0-100.0); Mean Platelet Volume 9.5; Microcytosis Moderate; Monocytes # (A) 0.3 k/uL (0-1.0); Monocytes % (A) 7 %; Neutrophils % (A) 79 %; Platelet Count 140 k/uL (150-450); Poikilocytosis Moderate; RBC 5.07 m/uL (4.30-5.90); RDW 19.5 % (11.5-15.5); WBC 3.8 k/uL (3.8-10.6)
[2020-09-26 03:12] LABS: Albumin 3.7 g/dL (3.5-5.0); C Reactive Protein 15.4 mg/L (<10.0); Calcium 8.5 mg/dL (8.4-10.2); Magnesium 1.7 mg/dL (1.6-2.3); Potassium 4.5 mmol/L (3.5-5.1); Total Bilirubin 0.7 mg/dL (0.2-1.3); Total Protein 7.5 g/dL (6.3-8.2)
[2020-09-26] MEDS ORDERED: MORPHINE SULFATE 4 MG/ML SYRINGE IV PRN (04:26)
[2020-09-26] MEDS ORDERED: NALOXONE 0.4 MG/ML 1 ML VIAL IV PRN (04:26)
[2020-09-26] MEDS ORDERED: IBUPROFEN 400 MG TAB PO PRN (04:26)
[2020-09-26] MEDS ORDERED: ACETAMINOPHEN TAB 325 MG TAB PO PRN (04:26)
[2020-09-26] MEDS ORDERED: IPRATROPIUM-ALBUTEROL 3 ML NEB INHALATION STA (04:27)
[2020-09-26] MEDS ORDERED: AZITHROMYCIN 500 MG in SODIUM CHLORIDE 0.9% 250 ML IVPB STA (04:27)
[2020-09-26 04:36] LABS: INR 1.1 (<1.2); Partial Thromboplastin Time 22.9 sec (22.0-30.0); Prothrombin Time 11.3 sec (9.0-12.0)
[2020-09-26] MEDS: SODIUM CHLORIDE 0.9% 1,000 ML IV SCH ×2 (05:37→17:02)
[2020-09-26] MEDS: methylPREDNISolone SOD SUCCI 125 MG/2 ML VIAL IV SCH ×4 (08:14→22:52)
[2020-09-26] MEDS: ENOXAPARIN 40 MG/0.4 ML SYRINGE SQ SCH (08:14)
[2020-09-26] MEDS: IPRATROPIUM-ALBUTEROL 3 ML NEB INHALATION SCH ×4 (09:30→21:24)
[2020-09-26] MEDS: PREGABALIN 100 MG CAP PO SCH ×2 (11:33→22:52)
[2020-09-26] MEDS: PANTOPRAZOLE 40 MG TABLET PO SCH ×2 (11:33→17:02)
[2020-09-26] MEDS: METOPROLOL TARTRATE 12.5 MG TAB PO SCH ×2 (12:08→22:51)
[2020-09-26] MEDS: polyethylene glycoL 3350 17 GM POWD.PACK PO SCH (12:08)
[2020-09-26] MEDS: ESCITALOPRAM 10 MG TAB PO SCH (12:08)
[2020-09-26] MEDS: allopurinoL 300 MG TAB PO SCH (12:09)
--- NOTE | 2020-09-26 13:49 | P.CNPUL ---
History of Present Illness Consult date: 09/26/20 Reason for consult: dyspnea, cough, abnormal CXR/CT Chief complaint: Dyspnea, cough, History of present illness: This is a 55-year-old white male patient who is known to our service from previous episodes of aspiration pneumonia, has history of esophagitis, esophageal stricture/stenosis with previous esophageal dilatation. His last esophageal dilatation was 2 months ago. He was hospitalized for healthcare acquired pneumonia in May, he was negative for Covid at that time. On 09/27/2011 patient presented to the emergency department with complaints of worsening dyspnea, cough, congestion, phlegm production, he admits to feeling hot and cold, chilled. Tested negative for Covid 19, his chest x-ray shows bi lateral airspace and interstitial opacities concerning for an infectious or inflammatory process. His workup showed white blood cell, 3.8, hemoglobin is 10.7, d-dimer was 3.10, CO2 was 34, BUN was 24, and estimated electrolytes were within normal limits, creatinine was 1.17. LDH was 617, and CRP was 15.4. Patient was started on different medicine and Rocephin for possibility of pneumonia, IV steroids, breathing treatments, and he is feeling better today. Is on 5 L of oxygen pulse ox 92%. He is resting comfortably in bed, no hemoptysis, no chest pain, he states his breathing easier, coughing less Review of Systems All systems: negative Constitutional: Denies chills, Denies fever Eyes: denies blurred vision, denies pain Ears, nose, mouth and throat: Denies headache, Denies sore throat Cardiovascular: Denies chest pain, Denies shortness of breath Respiratory: Reports cough with sputum, Reports dyspnea, Denies cough Gastrointestinal: Denies abdominal pain, Denies diarrhea, Denies nausea, Denies vomiting Musculoskeletal: Denies myalgias Integumentary: Denies pruritus, Denies rash Neurological: Denies numbness, Denies weakness Psychiatric: Denies anxiety, Denies depression Endocrine: Denies fatigue, Denies weight change Past Medical History Past Medical History: Atrial Fibrillation, COPD, CVA/TIA, GERD/Reflux, Hyperlipidemia, Hypertension, Osteoarthritis (OA), Pneumonia, Seizure Disorder, Sleep Apnea/CPAP/BIPAP Additional Past Medical History / Comment(s): hiatal hernia, gout, neuropathy marta legs and feet- states feet are numb, some numbness in legs & tingling in hands., chronic back pain., constipation., dysphagia-hx of EGD with dilation, chronic esophogeal stenosis. Last October 2019, states frequent pneumonia & not sure why, recent admission for History of Any Multi-Drug Resistant Organisms: ESBL Date of last positivie culture/infection: 04/29/20 ESBL Klebsiella MDRO Source:: Blood Past Surgical History: Back Surgery, Bariatric Surgery, Bowel Resection, Heart Catheterization, Joint Replacement, Orthopedic Surgery Additional Past Surgical History / Comment(s): PAIN PUMP IMPLANTED 07/17/18, HX GASTRIC SLEEVE AND . BILATERAL KNEE arthroscopy, BILATERAL HIP replacement, LEFT SHOULDER replacement, LEFT ACHILES TENDON SX., RIGHT BIG TOE took piece out, echocardiolgram, spinal fusion, EGD with dilation., STATES HX OF PNEUMONIA WITH LUNG SURGERY., REPAIR OF HIATAL HERNIA & LYSIS OF ADHESIONS Past Anesthesia/Blood Transfusion Reactions: No Reported Reaction Smoking Status: Former smoker - Past Family History Father Family Medical History: Cancer Additional Family Medical History / Comment(s): lung Mother Family Medical History: Coronary Artery Disease (CAD) Additional Family Medical History / Comment(s): . Medications and Allergies Home Medications Medication Instructions Recorded Confirmed Type Allopurinol [Zyloprim] 300 mg PO DAILY 06/04/16 09/26/20 History Escitalopram [Lexapro] 10 mg PO DAILY 06/04/16 09/26/20 History Omeprazole 40 mg PO BID #60 cap 07/06/19 09/26/20 Rx Cyclobenzaprine [Flexeril] 10 mg PO BID PRN #0 03/27/20 09/26/20 Rx Pregabalin [Lyrica] 300 mg PO BID #6 cap 03/27/20 09/26/20 Rx Metoprolol Tartrate [Lopressor] 12.5 mg PO BID 04/28/20 09/26/20 History oxyCODONE HCL/ACETAMINOPHEN 1 tab PO QID PRN 08/31/20 09/26/20 History [Percocet 5-325 mg] Zolpidem [Ambien] 5 mg PO HS #30 tab 09/02/20 09/26/20 Rx Docusate [Colace] 100 mg PO DAILY 09/26/20 09/26/20 History Ergocalciferol [Vitamin D2 (1250 1,250 mcg PO MO 09/26/20 09/26/20 History Mcg = 02252 Iu)] polyethylene glycoL 3350 [Miralax] 17 gm PO DAILY 09/26/20 09/26/20 History Allergies Allergy/AdvReac Type Severity Reaction Status Date / Time No Known Allergies Allergy Verified 09/26/20 09:20 Physical Exam Vitals: Vital Signs Temp Pulse Pulse Resp BP BP Pulse Ox 09/26/20 09:38 80 09/26/20 09:30 79 09/26/20 08:00 98.2 F 78 17 90/51 92 L 09/26/20 06:00 81 18 109/74 96 09/26/20 05:41 86 18 104/67 95 09/26/20 03:00 107 H 22 137/76 90 L 09/26/20 02:54 28 H 09/26/20 02:53 90 L 09/26/20 01:21 99.2 F 123 H 24 107/54 66 L Intake and Output 09/25/20 09/26/20 09/26/20 22:59 06:59 14:59 Other: # Voids 1 Weight 108.862 kg 108.862 kg GENERAL EXAM: Alert, very pleasant, 54-year-old -Prydeinig male, currently on room air with a pulse ox of 96% comfortable in no apparent distress. HEAD: Normocephalic/atraumatic. EYES: Normal reaction of pupils, equal size. Conjunctiva pink, sclera white. NOSE: Clear with pink turbinates. THROAT: No erythema or exudates. NECK: No masses, no JVD, no thyroid enlargement, no adenopathy. CHEST: No chest wall deformity. Symmetrical expansion. LUNGS: Equal air entry with no crackles, wheeze, rhonchi or dullness. CVS: Regular rate and rhythm, normal S1 and S2, no gallops, no murmurs, no rubs ABDOMEN: Soft, nontender. No hepatosplenomegaly, normal bowel sounds, no guarding or rigidity. EXTREMITIES: No clubbing, mild pretibial edema, no cyanosis, 2+ pulses and upper and lower extremities. MUSCULOSKELETAL: Muscle strength and tone normal. SPINE: No scoliosis or deformity SKIN: No rashes CENTRAL NERVOUS SYSTEM: Alert and oriented -3. No focal deficits, tone is normal in all 4 extremities. PSYCHIATRIC: Alert and oriented -3. Appropriate affect. Intact judgment and insight. Results - Laboratory Findings CBC and BMP: 09/26/20 02:23 09/26/20 02:23 PT/INR, D-dimer PT 11.3 sec (9.0-12.0) 09/26/20 02:23 INR 1.1 (<1.2) 09/26/20 02:23 D-Dimer 3.10 mg/L FEU (<0.60) H 09/26/20 09:35 Abnormal lab findings: Abnormal Labs 09/26/20 09/26/20 09/26/20 02:23 02:23 09:35 Hgb 10.7 L Hct 37.8 L MCV 74.6 L MCH 21.1 L MCHC 28.3 L RDW 19.5 H Plt Count 140 L Lymphocytes # 0.5 L D-Dimer 3.10 H Carbon Dioxide 34 H BUN 24 H C-Reactive Protein 15.4 H - Diagnostic Findings Chest x-ray: report reviewed, image reviewed Assessment and Plan Plan: #1. Acute hypoxic respiratory failure related to suspected aspiration pneumoni a, ruled out negative for COVID 19 #2. Previous history of aspiration pneumonia #3. History of esophageal stricture, history of esophageal dilatation #4. Chronic anemia, unspecified #5. Morbid obesity, status post gastric sleeve in December 2019 #6. Paroxysmal A. fib, currently sinus mechanism, not on any chronic anticoagulation #7. History of CVA #8. Hypertension #9. History of back surgery and chronic back pain #10. Diabetes mellitus type 2 #11. Former nicotine dependence Plan: Continue current antibiotic coverage, Procalcitonin level is pending, clinically patient is feeling better, breathing easier, continue IV steroids, breathing treatments, continue prophylactic dose of Lovenox, d-dimer was noted, we'll obtain lower extremity Dopplers, obtain speech evaluation. We'll continue to closely follow his clinical course I performed a history & physical examination of the patient and discussed their management with my nurse practitioner, Shea Terry. I reviewed the nurse practitioner's note and agree with the documented findings and plan of care. Lung sounds are positive for diminished breath sounds. The findings and the impression was discussed with the patient. I attest to the documentation by the nurse practitioner. Time with Patient: Greater than 30
[2020-09-26 15:35] VITALS: BMI 29.2
--- NOTE | 2020-09-26 15:53 | US ---
EXAMINATION TYPE: US venous doppler duplex LE BI DATE OF EXAM: 09/26/2020 3:36 PM COMPARISON: NONE CLINICAL HISTORY: elevated d-dimer. elevated d dimer SIDE PERFORMED: Bilateral TECHNIQUE: The lower extremity deep venous system is examined utilizing real time linear array sonog can with graded compression, doppler sonography and color-flow sonography. VESSELS IMAGED: Common Femoral Vein Deep Femoral Vein Greater Saphenous Vein * Femoral Vein Popliteal Vein Small Saphenous Vein * Proximal Calf Veins (* superficial vessels) Right Leg: Negative for DVT Left Leg: Negative for DVT IMPRESSION: 1. Bilateral lower extremity ultrasound negative for deep venous thrombosis
--- NOTE | 2020-09-26 20:50 | P.HPIM ---
History of Present Illness H&P Date: 09/26/20 Chief Complaint: Short of breath History of presenting complaint: This is a very pleasant 55-year-old patient of Dr. Alexandrea Ang. stable medical conditions include hypertension, , gout, chronic bilateral hip pain, peripheral neuropathy. Atrial fibrillation, gastric [place] [address] Zarate. Jun 2018 had lysis of adhesions, laparoscopic reduction and repair o f incarcerated paraesophageal hiatal hernia with a mesh and takedown of a gastric-gastric fistula by Dr. Dumont. baseline - walk slowly because of peripheral neuropathy. In August 2018 patient had EGD done that showed severe erosive esophagitis with esophageal ulcer. readmitted July 05 2019 underwent balloon dilatation of 10-7 mm done. admitted July 22 and underwent EGD by Dr. Carbajal. Found-severe esophagitis and distal esophageal obstruction. A 10 mm dilatation was carried out. Retained food was extracted. Found to have possible aspiration pneumonia bilateral, treat with IV Zosyn-discharge. Dr. Carbajal discharged on Augmentin on July 26. On December 11 and I&D of the right scrotal abscess. - Shobha's gangrene. In December 2019- small bowel obstruction and recurrent hypoglycemia and was then transferred to [facility]. Patient had been doing well. Last night when lying down patient started having severe reflux with vomiting. And aspirated. Became short of breath. No fever no chills. Pulse ox was done in the ER. Placed on oxygen. Admitted for same. Presentation was rather acute. Placed on oxygen Review of systems: GEN.: Tired EYES: None HEENT: None NECK: None RESPIRATORY: As above CARDIOVASCULAR: None GASTROINTESTINAL: Reflux GENITOURINARY: None MUSCULOSKELETAL: Some pains LYMPHATICS: None HEMATOLOGICAL: None PSYCHIATRY: None NEUROLOGICAL: Does use a walker Past medical history to include: Hypertension, gout, peripheral neuropathy, atrial fibrillation, gastric sleeve in 2013, gastric-gastric fistula repair, severe esophagitis, esophageal stenosis dilated, Social history: Smoke one half a pack a day for about 38 years-stopped 2018. . No alcohol. Physical examination: VITAL SIGNS: 99.2, 123, 24, 107/54, 66% on room air, 90% on 15 L nonrebreather upon presentation GENERAL: BMI 29.2, reclining in bed not in distress EYES: Pupils equal. Conjunctiva normal. HEENT: External appearance of nose and ears normal, oral cavity grossly normal. NECK: JVD unable to assess; masses not palpable. HEART: First and second heart sounds are normal; no edema. LUNGS: Respiratory rate increased, some coarse crackles in the right base. ABDOMEN: Soft, nontender, liver spleen not palpable, no masses palpable. Left abdominal wall has a pain pump PSYCH: Alert and oriented x3; mood and affect anxious NEUROLOGICAL: Cranial nerves grossly intact; no facial asymmetry, power and sensation grossly intact. LYMPHATICS: No lymph nodes palpable in the axilla and neck INVESTIGATIONS, reviewed in the clinical context: WBC 3.8 hemoglobin 10.7 platelets 140 potassium 4.5 creatinine 1.17 D-dimer 3.10 CRP 15.4 procalcitonin 37.8 Coronavirus [PCR] not detected Ultrasound bilateral lower extremity: Negative for DVT EKG tracing personally reviewed by me-normal sinus rhythm. Poor baseline Chest x-ray film personally reviewed by me-compared to the previous film; Infiltrates more so in the right base, compared to the left Assessment and plan: -Bilateral aspiration pneumonitis secondary to vomiting from severe reflux, with acute presentation Aspiration precautions. Place the patient on clindamycin. Incentive spirometry. -Acute hypoxic respiratory failure due to aspiration pneumonitis Supplement oxygen - COPD in a ex-smoker Continue with DuoNeb -History of recurrent esophageal stricture with repeat dilatation -History of paraesophageal repair and history of sleeve gastrectomy -Essential hypertension Continue with Lopressor -Primary osteoarthritis Use Percocet when necessary -Chronic Gout Continue with allopurinol -Idiopathic peripheral neuropathy Continue with Lyrica -Chronic back pain with the pain pump -Anemia of chronic disease -Paroxysmal atrial fibrillation, currently in sinus rhythm continue with beta raf. -Chronic insomnia Continue with Ambien -Chronic GERD Continue with omeprazole DC ceftriaxone and Zithromax. Place on IV clindamycin. Oxygen supplementation. Pulmonary consulted. Care was discussed with the patient. Given the complexity and severity of patient's condition expect the patient to be in the hospital at least for 2 overnights Past Medical History Past Medical History: Atrial Fibrillation, COPD, CVA/TIA, GERD/Reflux, Hyperlipidemia, Hypertension, Osteoarthritis (OA), Pneumonia, Seizure Disorder, Sleep Apnea/CPAP/BIPAP Additional Past Medical History / Comment(s): hiatal hernia, gout, neuropathy marta legs and feet- states feet are numb, some numbness in legs & tingling in cook ds., chronic back pain., constipation., dysphagia-hx of EGD with dilation, chronic esophogeal stenosis. Last October 2019, states frequent pneumonia & not sure why, recent admission for History of Any Multi-Drug Resistant Organisms: ESBL Date of last positivie culture/infection: 04/29/20 ESBL Klebsiella MDRO Source:: Blood Past Surgical History: Back Surgery, Bariatric Surgery, Bowel Resection, Heart Catheterization, Joint Replacement, Orthopedic Surgery Additional Past Surgical History / Comment(s): PAIN PUMP IMPLANTED 07/17/18, HX GASTRIC SLEEVE AND . BILATERAL KNEE arthroscopy, BILATERAL HIP replacement, LEFT SHOULDER replacement, LEFT ACHILES TENDON SX., RIGHT BIG TOE took piece out, echocardiolgram, spinal fusion, EGD with dilation., STATES HX OF PNEUMONIA WITH LUNG SURGERY., REPAIR OF HIATAL HERNIA & LYSIS OF ADHESIONS Past Anesthesia/Blood Transfusion Reactions: No Reported Reaction Past Psychological History: Anxiety, Depression Smoking Status: Former smoker Past Alcohol Use History: None Reported Past Drug Use History: None Reported - Past Family History Father Family Medical History: Cancer Additional Family Medical History / Comment(s): lung Mother Family Medical History: Coronary Artery Disease (CAD) Additional Family Medical History / Comment(s): . Medications and Allergies Home Medications Medication Instructions Recorded Confirmed Type Allopurinol [Zyloprim] 300 mg PO DAILY 06/04/16 09/26/20 History Escitalopram [Lexapro] 10 mg PO DAILY 06/04/16 09/26/20 History Omeprazole 40 mg PO BID #60 cap 07/06/19 09/26/20 Rx Cyclobenzaprine [Flexeril] 10 mg PO BID PRN #0 03/27/20 09/26/20 Rx Pregabalin [Lyrica] 300 mg PO BID #6 cap 03/27/20 09/26/20 Rx Metoprolol Tartrate [Lopressor] 12.5 mg PO BID 04/28/20 09/26/20 History oxyCODONE HCL/ACETAMINOPHEN 1 tab PO QID PRN 08/31/20 09/26/20 History [Percocet 5-325 mg] Zolpidem [Ambien] 5 mg PO HS #30 tab 09/02/20 09/26/20 Rx Docusate [Colace] 100 mg PO DAILY 09/26/20 09/26/20 History Ergocalciferol [Vitamin D2 (1250 1,250 mcg PO MO 09/26/20 09/26/20 History Mcg = 43391 Iu)] polyethylene glycoL 3350 [Miralax] 17 gm PO DAILY 09/26/20 09/26/20 History Allergies Allergy/AdvReac Type Severity Reaction Status Date / Time No Known Allergies Allergy Verified 09/26/20 09:20 Physical Exam Vitals: Vital Signs Temp Pulse Pulse Resp BP BP Pulse Ox 09/26/20 09:38 80 09/26/20 09:30 79 09/26/20 08:00 98.2 F 78 17 90/51 92 L 09/26/20 06:00 81 18 109/74 96 09/26/20 05:41 86 18 104/67 95 09/26/20 03:00 107 H 22 137/76 90 L 09/26/20 02:54 28 H 09/26/20 02:53 90 L 09/26/20 01:21 99.2 F 123 H 24 107/54 66 L Intake and Output 09/25/20 09/26/20 09/26/20 22:59 06:59 14:59 Other: Weight 108.862 kg Results CBC & Chem 7: 09/26/20 02:23 09/26/20 02:23 Labs: Abnormal Lab Results - Last 24 Hours (Table) 09/26/20 09/26/20 Range/Units 02:23 02:23 Hgb 10.7 L (13.0-17.5) gm/dL Hct 37.8 L (39.0-53.0) % MCV 74.6 L (80.0-100.0) fL MCH 21.1 L (25.0-35.0) pg MCHC 28.3 L (31.0-37.0) g/dL RDW 19.5 H (11.5-15.5) % Plt Count 140 L (150-450) k/uL Lymphocytes # 0.5 L (1.0-4.8) k/uL Carbon Dioxide 34 H (22-30) mmol/L BUN 24 H (9-20) mg/dL C-Reactive Protein 15.4 H (<10.0) mg/L
[2020-09-26] MEDS ORDERED: CLINDAMYCIN 300 MG in DEXTROSE 5% IN WATER 50 ML IVPB SCH ×2 (21:00)
[2020-09-26] MEDS: CYCLOBENZAPRINE 10 MG TAB PO PRN (22:51)
[2020-09-26] MEDS: oxyCODONE-APAP 5-325MG 1 EACH TAB PO PRN (22:52)
[2020-09-26] MEDS: ZOLPIDEM 5 MG TAB PO SCH (22:52)
[2020-09-27] MEDS: IPRATROPIUM-ALBUTEROL 3 ML NEB INHALATION SCH ×5 (01:02→16:58)
[2020-09-27] MEDS: PIPERACILLIN-TAZOBACTAM 3.375 GM in SODIUM CHLORIDE 0.9% 100 ML IVPB SCH ×3 (01:51→14:59)
[2020-09-27] MEDS: SODIUM CHLORIDE 0.9% 1,000 ML IV SCH ×3 (02:02→22:18)
[2020-09-27] MEDS ORDERED: AZITHROMYCIN 500 MG in SODIUM CHLORIDE 0.9% 250 ML IVPB SCH (05:00)
[2020-09-27] MEDS: methylPREDNISolone SOD SUCCI 125 MG/2 ML VIAL IV SCH ×2 (05:15→14:57)
[2020-09-27] MEDS: PANTOPRAZOLE 40 MG TABLET PO SCH ×2 (09:34→16:24)
[2020-09-27] MEDS: PREGABALIN 100 MG CAP PO SCH ×2 (09:34→22:19)
[2020-09-27] MEDS: ENOXAPARIN 40 MG/0.4 ML SYRINGE SQ SCH (09:34)
[2020-09-27] MEDS: polyethylene glycoL 3350 17 GM POWD.PACK PO SCH (09:37)
[2020-09-27] MEDS: METOPROLOL TARTRATE 12.5 MG TAB PO SCH ×2 (10:27→23:40)
[2020-09-27] MEDS: ESCITALOPRAM 10 MG TAB PO SCH (10:27)
[2020-09-27] MEDS: allopurinoL 300 MG TAB PO SCH (10:27)
--- NOTE | 2020-09-27 11:17 | P.PN ---
Subjective Progress Note Date: 09/27/20 Principal diagnosis: Aspiration pneumonia This is a 55-year-old white male patient who is known to our service from previous episodes of aspiration pneumonia, has history of esophagitis, esophageal stricture/stenosis with previous esophageal dilatation. His last esophageal dilatation was 2 months ago. He was hospitalized for healthcare acquired pneumonia in May, he was negative for Covid at that time. On 09/27/2011 patient presented to the emergency department with complaints of worsening dyspnea, cough, congestion, phlegm production, he admits to feeling hot and cold, chilled. Tested negative for Covid 19, his chest x-ray shows bilateral airspace and interstitial opacities concerning for an infectious or inflammatory process. His workup showed white blood cell, 3.8, hemoglobin is 10.7, d-dimer was 3.10, CO2 was 34, BUN was 24, and estimated electrolytes were within normal limits, creatinine was 1.17. LDH was 617, and CRP was 15.4. Patient was started on different medicine and Rocephin for possibility of pneumonia, IV steroids, breathing treatments, and he is feeling better today. Is on 5 L of oxygen pulse ox 92%. He is resting comfortably in bed, no hemoptysis, no chest pain, he states his breathing easier, coughing less On 09/27/2020 patient seen in follow-up on the surgical floor, he is resting comfortably in bed, he is awake and alert, he states he is breathing better, still has occasional cough, at times he is able to bring up some sputum but has not been able to give us a specimen yet, his FiO2 on 4 L was 95% this morning, and he was further cut back to 2 L/m. No fever, no chills, no chest pain or hemoptysis, lower extremity Dopplers were negative for DVT, he was initially started on Rocephin and Zithromax for bilateral pneumonia, and was further switched to Zosyn by ID service. Remains on Solu-Medrol, lung sounds reveal mi nimal wheeze, no crackles, clinically doing well, he had a swallow evaluation and he states he passed that, he states he at times has culture with certain foods like steak and the certain meats. No chest discomfort no sensation of fullness or inability to pass food. Objective - Vital Signs Vital signs: Vital Signs Temp 98.2 F 09/27/20 07:44 Pulse 83 09/27/20 09:48 Resp 20 09/27/20 07:44 BP 110/62 09/27/20 07:44 Pulse Ox 95 09/27/20 07:44 Intake & Output 09/26/20 09/27/20 09/27/20 18:59 06:59 18:59 Output Total 950 Balance -950 Weight 108.862 kg Output: Urine 950 Other: Voiding Method Urinal # Voids 2 # Bowel Movements 0 0 - Exam GENERAL EXAM: Alert, very pleasant, 54-year-old -[place] male, currently on 2 L of oxygen a pulse ox of 96% comfortable in no apparent distress. HEAD: Normocephalic/atraumatic. EYES: Normal reaction of pupils, equal size. Conjunctiva pink, sclera white. NOSE: Clear with pink turbinates. THROAT: No erythema or exudates. NECK: No masses, no JVD, no thyroid enlargement, no adenopathy. CHEST: No chest wall deformity. Symmetrical expansion. LUNGS: Equal air entry with no crackles, wheeze, rhonchi or dullness. CVS: Regular rate and rhythm, normal S1 and S2, no gallops, no murmurs, no rubs ABDOMEN: Soft, nontender. No hepatosplenomegaly, normal bowel sounds, no guarding or rigidity. EXTREMITIES: No clubbing, mild pretibial edema, no cyanosis, 2+ pulses and upper and lower extremities. MUSCULOSKELETAL: Muscle strength and tone normal. SPINE: No scoliosis or deformity SKIN: No rashes CENTRAL NERVOUS SYSTEM: Alert and oriented -3. No focal deficits, tone is normal in all 4 extremities. PSYCHIATRIC: Alert and oriented -3. Appropriate affect. Intact judgment and insight. - Labs CBC & Chem 7: 09/26/20 02:23 09/26/20 02:23 Labs: Abnormal Lab Results - Last 24 Hours (Table) 09/26/20 Range/Units 09:35 Procalcitonin 37.81 H (0.02-0.09) ng/mL Assessment and Plan Plan: #1. Acute hypoxic respiratory failure related to suspected aspiration pneumonia, ruled out negative for COVID 19 #2. Previous history of aspiration pneumonia #3. History of esophageal stricture, history of esophageal dilatation #4. Chronic anemia, unspecified #5. Morbid obesity, status post gastric sleeve in December 2019 #6. Paroxysmal A. fib, currently sinus mechanism, not on any chronic anticoagulation #7. History of CVA #8. Hypertension #9. History of back surgery and chronic back pain #10. Diabetes mellitus type 2 #11. Former nicotine dependence #12. Elevated d-dimer, lower extremity Dopplers were negative for DVT, we'll proceed with CTA chest to rule out possibility of pulmonary embolism although the present picture is not consistent with pulmonary embolism picture Plan: Continue antibiotic per ID service recommendations, lower extremity results were negative for DVT, we'll proceed with CTA chest to rule out possibility of pulmonary embolism, clinically patient is doing better, continue weaning FiO2, procalcitonin level was high consistent with bacterial pneumonia, GI and DVT prophylaxis, we will follow I performed a history & physical examination of the patient and discussed their management with my nurse practitioner, Shea Terry. I reviewed the nurse practitioner's note and agree with the documented findings and plan of care. Lung sounds are positive for diminished breath sounds. The findings and the im pression was discussed with the patient. I attest to the documentation by the nurse practitioner. Time with Patient: Less than 30
[2020-09-27 14:10] LABS: Albumin 3.4 g/dL (3.5-5.0); Calcium 8.2 mg/dL (8.4-10.2); Magnesium 1.9 mg/dL (1.6-2.3); Phosphorus 3.7 mg/dL (2.5-4.5); Potassium 4.6 mmol/L (3.5-5.1); Total Bilirubin 0.5 mg/dL (0.2-1.3)
[2020-09-27 14:18] LABS: Anisocytosis Slight; HCT 31.5 % (39.0-53.0); Hypochromasia Marked; MCH 21.3 pg (25.0-35.0); MCHC 28.5 g/dL (31.0-37.0); MCV 74.9 fL (80.0-100.0); Mean Platelet Volume 8.5; Microcytosis Moderate; Platelet Count 110 k/uL (150-450); Poikilocytosis Moderate; RBC 4.21 m/uL (4.30-5.90); RDW 19.7 % (11.5-15.5); WBC 15.7 k/uL (3.8-10.6)
[2020-09-27 14:44] LABS: Band Neutrophils % 12 %; Lymphocytes # (M) 0.47 k/uL (1.0-4.8); Metamyelocytes # (M) 0.16 k/uL (0); Metamyelocytes % 1 %; Monocytes # (M) 0.47 k/uL (0-1.0); Neutrophils % (M) 83 %; Nucleated Red Blood Cells 0 /100 WBC (0-0); Total Cells Counted 200
[2020-09-27 14:48] LABS: Toxic Granulation Present; Toxic Vacuolation Present
--- NOTE | 2020-09-27 15:40 | CT ---
CT CHEST FOR PULMONARY EMBOLISM. EXAMINATION TYPE: CT angio chest DATE OF EXAM: 09/27/2020 INDICATION: Trouble breathing, elevated d-dimer CT DLP: 742.4 mGycm, Automated exposure control for dose reduction was used. CONTRAST: Patient injected with 100 mL of Isovue 370. COMPARISON: 05/26/2020 TECHNIQUE: CT of the chest is performed on a spiral scan at 2 mm thick sections. Study is performed with intravenous contrast timed for evaluation for pulmonary embolism. This will limit additional po rtions of the evaluation. 3-D MIP images reconstructed by the technologist are reviewed on the compu ter in the coronal and sagittal planes. FINDINGS: No persistent filling defects are evident to suggest an acute pulmonary embolism. No mediastinal or hilar adenopathy enlarged by CT criteria is evident. The ascending aorta diameter at the level of the main pulmonary artery is 3.4 cm. The main pulmonary artery diameter at the bifur cation is 3.6 cm. Consider some pulmonary hypertension. There is a gastric pull-through colonic interposition in the right posterior mediastinal region. No r ecurrent masses are identified. No suspicious adenopathy is evident.122 There is groundglass opacities to the bilateral upper lung vital. In the mid to lower lung vital an d some milder groundglass opacity pneumonitis changes present. Underlying pulmonary fibrosis should b e considered. Some irregular small densities may be within the right lower lobe. The previous consoli dations have improved. The nodular-like densities within the right lower lobe a been interval finding . Example image [address] section through the upper abdomen are unremarkable. IMPRESSIONS: 1. Improving lung consolidations with persistent continued groundglass opacities of the bilateral clyde g vital. 2. There may be some interval development of some nodularity within the lung vital including right l ower lobe and left apex. Developing metastatic disease should be considered. 3. No acute pulmonary embolism
--- NOTE | 2020-09-27 18:57 | P.PN ---
Progress Note - Text Progress Note Date: 09/27/20 Chief Complaint: Short of breath History of presenting complaint: This is a very pleasant 55-year-old patient of Dr. Alexandrea Ang. stable medical conditions include hypertension, , gout, chronic bilateral hip pain, peripheral neuropathy. Atrial fibrillation, gastric [place] [address] Zarate. 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 Dumont. baseline - walk slowly because of peripheral neuropathy. In August 2018 patient had EGD done that showed severe erosive esophagitis with esophageal ulcer. readmitted July 05 2019 underwent balloon dilatation of 10-7 mm done. admitted July 22 and underwent EGD by Dr. Carbajal. Found-severe esophagitis and distal esophageal obstruction. A 10 mm dilatation was carried out. Retained food was extracted. Found to have possible aspiration pneumonia bilateral, treat with IV Zosyn-discharge. Dr. Carbajal discharged on Augmentin on July 26. On December 11 and I&D of the right scrotal abscess. - Shobha's gangrene. In December 2019- small bowel obstruction and recurrent hypoglycemia and was then transferred to [facility]. Patient had been doing well. Last night when lying down patient started having severe reflux with vomiting. And aspirated. Became short of breath. No fever no chills. Pulse ox was done in the ER. Placed on oxygen. Admitted for same. Presentation was rather acute. Placed on oxygen Admitted with aspiration pneumonia and acute hypoxic respiratory failure. Started on IV clindamycin. Oxygen supplementation. Incentive spirometry. Today: Feeling better. Breathing better. Slight cough. Did eat some food. Review of systems: Was done for constitutional, cardiovascular, GI, pulmonary. relevant finding as above Active Medications Acetaminophen (Acetaminophen Tab 325 Mg Tab) 650 mg PO Q6HR PRN PRN Reason: Mild Pain or Fever > 100.5 Albuterol/Ipratropium (Ipratropium-Albuterol 3 Ml Neb) 3 ml INHALATION RT-Q4H [facility] Last Admin: 09/27/20 16:58 Dose: 3 ml Documented by: Allopurinol (Allopurinol 300 Mg Tab) 300 mg PO DAILY [facility] Last Admin: 09/27/20 10:27 Dose: 300 mg Documented by: Cyclobenzaprine HCl (Cyclobenzaprine 10 Mg Tab) 10 mg PO BID PRN PRN Reason: Spasms Last Admin: 09/26/20 22:51 Dose: 10 mg Documented by: Enoxaparin Sodium (Enoxaparin 40 Mg/0.4 Ml Syringe) 40 mg SQ DAILY [facility] Last Admin: 09/27/20 09:34 Dose: 40 mg Documented by: Ergocalciferol (Ergocalciferol 1,250 Mcg (50,000 Iu) Capsule) 1,250 mcg PO MO [facility] Escitalopram Oxalate (Escitalopram 10 Mg Tab) 10 mg PO DAILY [facility] Last Admin: 09/27/20 10:27 Dose: 10 mg Documented by: Sodium Chloride (Saline 0.9%) 1,000 mls @ 100 mls/hr IV .Q10H [facility] Last Admin: 09/27/20 13:02 Dose: 100 mls/hr Documented by: Piperacillin Sod/Tazobactam (Sod 3.375 gm/ Sodium Chloride) 100 mls @ 25 mls/hr IVPB Q8HR [facility] Last Admin: 09/27/20 14:59 Dose: 25 mls/hr Documented by: Ibuprofen (Ibuprofen 400 Mg Tab) 400 mg PO Q6HR PRN PRN Reason: Mild Pain or Fever > 100.5 Methylprednisolone Sodium Succinate (Methylprednisolone Sod Succi 125 Mg/2 Ml Vial) 40 mg IV Q8H [facility] Last Admin: 09/27/20 14:57 Dose: 40 mg Documented by: Metoprolol Tartrate (Metoprolol Tartrate 12.5 Mg Tab) 12.5 mg PO BID [facility] Last Admin: 09/27/20 10:27 Dose: 12.5 mg Documented by: Morphine Sulfate (Morphine Sulfate 4 Mg/Ml Syringe) 4 mg IV Q4HR PRN PRN Reason: Severe Pain Naloxone HCl (Naloxone 0.4 Mg/Ml 1 Ml Vial) 0.2 mg IV Q2M PRN PRN Reason: Opioid Reversal Oxycodone/Acetaminophen (Oxycodone-Apap 5-325mg 1 Each Tab) 1 each PO QID PRN PRN Reason: Pain Last Admin: 09/26/20 22:52 Dose: 1 each Documented by: Pantoprazole Sodium (Pantoprazole 40 Mg Tablet) 40 mg PO AC-BID [facility] Last Admin: 09/27/20 16:24 Dose: 40 mg Documented by: Polyethylene Glycol (Polyethylene Glycol 3350 17 Gm Powd.Pack) 17 gm PO DAILY [facility] Last Admin: 09/27/20 09:37 Dose: Not Given Documented by: Pregabalin (Pregabalin 100 Mg Cap) 300 mg PO BID [facility] Last Admin: 09/27/20 09:34 Dose: 300 mg Documented by: Zolpidem Tartrate (Zolpidem 5 Mg Tab) 5 mg PO HS [facility] Last Admin: 09/26/20 22:52 Dose: 5 mg Documented by: Past medical history to include: Hypertension, gout, peripheral neuropathy, atrial fibrillation, gastric sleeve in 2013, gastric-gastric fistula repair, severe esophagitis, esophageal stenosis dilated, Social history: Smoke one half a pack a day for about 38 years-stopped 2018. . No alcohol. Physical examination: VITAL SIGNS: 98.1, 91, 16, 93/41, 92% on 2 L GENERAL: BMI 29.2, reclining in bed looking more comfortable EYES: Pupils equal. Conjunctiva normal. HEENT: External appearance of nose and ears normal, oral cavity grossly normal. NECK: JVD unable to assess; masses not palpable. HEART: First and second heart sounds are normal; no edema. LUNGS: Respiratory rate normal decrease coarse crackles in the right base. ABDOMEN: Soft, nontender, liver spleen not palpable, no masses palpable. Left abdominal wall has a pain pump PSYCH: Alert and oriented x3; mood and affect anxious INVESTIGATIONS, reviewed in the clinical context: September 27: WBC 15.7 hemoglobin 9 platelets 110 potassium 4.6 creatinine 1.11 Chest CTA: Improving lung consolidation with persistent continued groundglass opacities in bilateral lung vital. WBC 3.8 hemoglobin 10.7 platelets 140 potassium 4.5 creatinine 1.17 D-dimer 3.10 CRP 15.4 procalcitonin 37.8 Coronavirus [PCR] not detected Ultrasound bilateral lower extremity: Negative for DVT EKG tracing personally reviewed by me-normal sinus rhythm. Poor baseline Chest x-ray film personally reviewed by me-compared to the previous film; Infiltrates more so in the right base, compared to the left Assessment and plan: -Bilateral aspiration pneumonitis secondary to vomiting from severe reflux, with acute presentation-improving Aspiration precautions. IV clindamycin. Incentive spirometry. -Acute hypoxic respiratory failure due to aspiration pneumonitis Supplement oxygen-on 2 L - COPD in a ex-smoker Continue with DuoNeb -History of recurrent esophageal stricture with repeat dilatation -History of paraesophageal repair and history of sleeve gastrectomy -Essential hypertension Continue with Lopressor -Primary osteoarthritis Use Percocet when necessary -Chronic Gout Continue with allopurinol -Idiopathic peripheral neuropathy Continue with Lyrica -Chronic back pain with the pain pump -Anemia of chronic disease -Paroxysmal atrial fibrillation, currently in sinus rhythm continue with beta raf. -Chronic insomnia Continue with Ambien -Chronic GERD Continue with omeprazole -Increasing leukocytosis from steroids. Discussed with the patient. Cutback on Solu-Medrol. Clinically doing better.
[2020-09-27] MEDS: ZOLPIDEM 5 MG TAB PO SCH (22:19)
--- NOTE | 2020-09-27 22:19 | PN ---
PROGRESS NOTE DATE OF SERVICE: 09/27/2020 REASON FOR FOLLOWUP: Aspiration pneumonia. INTERVAL HISTORY: Patient was seen on rounds this afternoon. The patient has been afebrile. The patient is breathing more comfortably. He denies any chest pain. He did have a cough, bringing up some sputum. No sputum collected. No vomiting. No abdominal pain. No diarrhea. PHYSICAL EXAMINATION: Blood pressure 105/64, pulse of 95, temperature 98.1 and he is 92% on room air. General description is a middle-aged male lying in bed in no distress. Respiratory system: Unlabored breathing, decreased intensity of breath sounds. No wheeze. HEART: S1, S2. Regular rate and rhythm. ABDOMEN: Soft, no tenderness. LABS: Hemoglobin is 9, white count 15.7, BUN of 26, creatinine 1.11. DIAGNOSTIC IMPRESSION AND PLAN: Patient presented to hospital with shortness of breath, cough with evidence of pneumonia, question of aspiration etiology, significantly elevated The patient is covered with Zosyn. Will try to obtain a sputum to narrow down his antibiotics. Continue supportive care. MMODL / IJN: [id number] / MTDD
[2020-09-27] MEDS ORDERED: IPRATROPIUM-ALBUTEROL 3 ML NEB INHALATION PRN (22:20)
[2020-09-28] MEDS: IPRATROPIUM-ALBUTEROL 3 ML NEB INHALATION SCH ×5 (00:11→18:44)
[2020-09-28] MEDS: PIPERACILLIN-TAZOBACTAM 3.375 GM in SODIUM CHLORIDE 0.9% 100 ML IVPB SCH ×4 (01:40→23:30)
[2020-09-28] MEDS: methylPREDNISolone SOD SUCCI 125 MG/2 ML VIAL IV SCH ×3 (01:41→16:36)
[2020-09-28] MEDS: SODIUM CHLORIDE 0.9% 1,000 ML IV SCH ×2 (06:11→17:03)
[2020-09-28 06:23] LABS: Anisocytosis Slight; HCT 30.2 % (39.0-53.0); HGB 8.5 gm/dL (13.0-17.5); Hypochromasia Marked; MCHC 28.1 g/dL (31.0-37.0); MCV 74.8 fL (80.0-100.0); Mean Platelet Volume 9.7; Microcytosis Moderate; Platelet Count 123 k/uL (150-450); Poikilocytosis Moderate; RBC 4.03 m/uL (4.30-5.90); RDW 19.8 % (11.5-15.5); WBC 17.8 k/uL (3.8-10.6)
[2020-09-28 06:35] LABS: Albumin 3.3 g/dL (3.5-5.0); Calcium 8.3 mg/dL (8.4-10.2); Potassium 4.6 mmol/L (3.5-5.1); Total Bilirubin 0.5 mg/dL (0.2-1.3); Total Protein 6.9 g/dL (6.3-8.2)
--- NOTE | 2020-09-28 07:10 | XR ---
EXAMINATION TYPE: XR chest 1V portable DATE OF EXAM: 09/28/2020 HISTORY: Shortness of breath. COMPARISON: 09/26/2020 TECHNIQUE: Single view of the chest is submitted. FINDINGS: Demonstrated are scattered senescent parenchymal change. Persistent but improving perihilar and basilar infiltrates compatible with pneumonia. The heart is stable. Hilar and mediastinal structures are within normal limits. Degenerative changes are seen of the dorsal spine. IMPRESSION: 1. Persistent but improving perihilar and basilar infiltrates compatible with pneumonia.
[2020-09-28] MEDS: allopurinoL 300 MG TAB PO SCH (07:29)
[2020-09-28] MEDS: PANTOPRAZOLE 40 MG TABLET PO SCH ×2 (07:29→16:39)
[2020-09-28] MEDS: ESCITALOPRAM 10 MG TAB PO SCH (07:29)
[2020-09-28] MEDS: PREGABALIN 100 MG CAP PO SCH ×2 (07:29→20:46)
[2020-09-28] MEDS: ENOXAPARIN 40 MG/0.4 ML SYRINGE SQ SCH (07:30)
[2020-09-28] MEDS: METOPROLOL TARTRATE 12.5 MG TAB PO SCH ×2 (08:29→20:46)
[2020-09-28] MEDS: polyethylene glycoL 3350 17 GM POWD.PACK PO SCH (08:30)
--- NOTE | 2020-09-28 10:48 | P.PN ---
Subjective Progress Note Date: 09/28/20 Principal diagnosis: Aspiration pneumonia This is a 55-year-old white male patient who is known to our service from previous episodes of aspiration pneumonia, has history of esophagitis, esophageal stricture/stenosis with previous esophageal dilatation. His last esophageal dilatation was 2 months ago. He was hospitalized for healthcare acquired pneumonia in May, he was negative for Covid at that time. On 09/27/2011 patient presented to the emergency department with complaints of worsening dyspnea, cough, congestion, phlegm production, he admits to feeling hot and cold, chilled. Tested negative for Covid 19, his chest x-ray shows bilateral airspace and interstitial opacities concerning for an infectious or inflammatory process. His workup showed white blood cell, 3.8, hemoglobin is 10.7, d-dimer was 3.10, CO2 was 34, BUN was 24, and estimated electrolytes were within normal limits, creatinine was 1.17. LDH was 617, and CRP was 15.4. Patient was started on different medicine and Rocephin for possibility of pneumonia, IV steroids, breathing treatments, and he is feeling better today. Is on 5 L of oxygen pulse ox 92%. He is resting comfortably in bed, no hemoptysis, no chest pain, he states his breathing easier, coughing less On 09/27/2020 patient seen in follow-up on the surgical floor, he is resting comfortably in bed, he is awake and alert, he states he is breathing better, still has occasional cough, at times he is able to bring up some sputum but has not been able to give us a specimen yet, his FiO2 on 4 L was 95% this morning, and he was further cut back to 2 L/m. No fever, no chills, no chest pain or hemoptysis, lower extremity Dopplers were negative for DVT, he was initially started on Rocephin and Zithromax for bilateral pneumonia, and was further switched to Zosyn by ID service. Remains on Solu-Medrol, lung sounds reveal mi nimal wheeze, no crackles, clinically doing well, he had a swallow evaluation and he states he passed that, he states he at times has culture with certain foods like steak and the certain meats. No chest discomfort no sensation of fullness or inability to pass food. On 09/28/2020 patient seen in follow-up on medical floor, clinically stable, feeling better, no altered mentation, no chest pain, hemoptysis, he liters of oxygen pulse ox is 92%, his been afebrile, hemodynamically stable, yesterday he has gotten up in the chair tolerated activity well, walked with a walker. CTA chest was completed showing no evidence of pulmonary embolism, and showing improvement lung consolidations with persistent groundglass opacities of the bilateral lung vital, and some interval development of some nodularity within the lung vital including right lower lobe and left apex. Today's chest x-ray shows persistent but improving perihilar and basilar infiltrates. He remains on Zosyn for antibiotic coverage, he is on IV Solu-Medrol 40 mg every 8 hours, he is on GI and DVT prophylaxis. Objective - Vital Signs Vital signs: Vital Signs Temp 98.2 F 09/28/20 08:40 Pulse 95 09/28/20 08:40 Resp 18 09/28/20 10:20 BP 137/79 09/28/20 08:40 Pulse Ox 92 L 09/28/20 10:20 Intake & Output 09/27/20 09/28/20 09/28/20 18:59 06:59 18:59 Output Total 900 Balance -900 Output: Urine 900 Other: # Voids 2 - Exam GENERAL EXAM: Alert, very pleasant, 54-year-old -[place] male, currently on 2 L of oxygen a pulse ox of 92% comfortable in no apparent distress. HEAD: Normocephalic/atraumatic. EYES: Normal reaction of pupils, equal size. Conjunctiva pink, sclera white. NOSE: Clear with pink turbinates. THROAT: No erythema or exudates. NECK: No masses, no JVD, no thyroid enlargement, no adenopathy. CHEST: No chest wall deformity. Symmetrical expansion. LUNGS: Equal air entry with no crackles, wheeze, rhonchi or dullness. CVS: Regular rate and rhythm, normal S1 and S2, no gallops, no murmurs, no rubs ABDOMEN: Soft, nontender. No hepatosplenomegaly, normal bowel sounds, no guarding or rigidity. EXTREMITIES: No clubbing, mild pretibial edema, no cyanosis, 2+ pulses and upper and lower extremities. MUSCULOSKELETAL: Muscle strength and tone normal. SPINE: No scoliosis or deformity SKIN: No rashes CENTRAL NERVOUS SYSTEM: Alert and oriented -3. No focal deficits, tone is normal in all 4 extremities. PSYCHIATRIC: Alert and oriented -3. Appropriate affect. Intact judgment and insight. - Labs CBC & Chem 7: 09/28/20 05:12 09/28/20 05:12 Labs: Abnormal Lab Results - Last 24 Hours (Table) 09/27/20 09/27/20 09/28/20 Range/Units 13:04 13:04 05:12 WBC 15.7 H 17.8 H (3.8-10.6) k/uL RBC 4.21 L 4.03 L (4.30-5.90) m/uL Hgb 9.0 L D 8.5 L (13.0-17.5) gm/dL Hct 31.5 L 30.2 L (39.0-53.0) % MCV 74.9 L 74.8 L (80.0-100.0) fL MCH 21.3 L 21.0 L (25.0-35.0) pg MCHC 28.5 L 28.1 L (31.0-37.0) g/dL RDW 19.7 H 19.8 H (11.5-15.5) % Plt Count 110 L 123 L (150-450) k/uL Neutrophils # (Manual) 14.90 H (1.3-7.7) k/uL Lymphocytes # (Manual) 0.47 L (1.0-4.8) k/uL Metamyelocytes # (Man) 0.16 H (0) k/uL BUN 26 H (9-20) mg/dL Glucose 141 H (74-99) mg/dL Calcium 8.2 L (8.4-10.2) mg/dL Albumin 3.4 L (3.5-5.0) g/dL 09/28/20 Range/Units 05:12 WBC (3.8-10.6) k/uL RBC (4.30-5.90) m/uL Hgb (13.0-17.5) gm/dL Hct (39.0-53.0) % MCV (80.0-100.0) fL MCH (25.0-35.0) pg MCHC (31.0-37.0) g/dL RDW (11.5-15.5) % Plt Count (150-450) k/uL Neutrophils # (Manual) (1.3-7.7) k/uL Lymphocytes # (Manual) (1.0-4.8) k/uL Metamyelocytes # (Man) (0) k/uL BUN 29 H (9-20) mg/dL Glucose 167 H (74-99) mg/dL Calcium 8.3 L (8.4-10.2) mg/dL Albumin 3.3 L (3.5-5.0) g/dL Assessment and Plan Plan: #1. Acute hypoxic respiratory failure related to suspected aspiration pneumonia, ruled out negative for COVID 19 #2. Previous history of aspiration pneumonia #3. History of esophageal stricture, history of esophageal dilatation #4. Chronic anemia, unspecified #5. Morbid obesity, status post gastric sleeve in December 2019 #6. Paroxysmal A. fib, currently sinus mechanism, not on any chronic anticoagulation #7. History of CVA #8. Hypertension #9. History of back surgery and chronic back pain #10. Diabetes mellitus type 2 #11. Former nicotine dependence #12. Elevated d-dimer, lower extremity Dopplers were negative for DVT, CTA chest negative for PE Plan: Continue current antibiotic coverage, taste chest x-ray and CT chest reviewed, showing improving bilateral infiltrates. Continue with same treatment, increase activity as tolerated, continues to be stable and improve may consider discharge home in the next 24-48 hours on antibiotics of ID service recommendations. We will send a follow-up pro-calcitonin. I performed a history & physical examination of the patient and discussed their management with my nurse practitioner, Shea Terry. I reviewed the nurse practitioner's note and agree with the documented findings and plan of care. Lung sounds are positive for diminished breath sounds. The findings and the impression was discussed with the patient. I attest to the documentation by the nurse practitioner. Time with Patient: Less than 30
--- NOTE | 2020-09-28 16:02 | CDI ---
Documentation Clarification Form Date: 09/28/2020 03:40:12 PM From: Karolyn Hebert CCS, CCDS Admit Date: 09/26/2020 04:26:00 AM Patient Name: Kevin Barbosa Visit Number: [id number] Discharge Date: ATTENTION: The Clinical Documentation Specialists (CDI) and [facility] Coding Staff appreciate your assistance in clarifying documentation. Please respond to the clarification below the line at the bottom and electronically sign. The CDI & [facility] Coding staff will review the response and follow-up if needed. Please note: Queries are made part of the Legal Health Record. If you have any questions, please contact the author of this message via ITS. Dr. Chavez Pedraza: The patient admitted with Bilateral Aspiration Pneumonitis secondary to vomiting from severe reflux. Additional clarification of the patient's infection is requested. History/Risk Factors per the 09/26 History & Physical History of Present Illness: COPD, Former smoker, Idiopathic peripheral neuropathy, Anemia of chronic Disease, Hypertension, Gout, Chronic bilateral hip pain, Peripheral neuropathy, Atrial fibrillation, Gastric sleeve in 2013, Jun 2018: Lysis of adhesions, Laparoscopic reduction and repair of incarcerated paraesophageal hiatal hernia with a mesh and takedown of a gastric fistula. August 2018: EGD: severe erosive esophagitis with esophageal ulcer. Readmitted 2019: Balloon dilatation, 2019: EGD: Severe esophagitis and distal esophageal obstruction, dilatation done. Clinical Indicators: Presented to the ED on 09/26 with SOB, severe reflux with vomiting & aspirated. Admitted with Bilateral Aspiration Pneumonia secondary to vomiting, Acute Hypoxic Respiratory Failure due to Aspiration Pneumonia. 09/26 VS: T 99.2, P 123, R 24 - 28 (SOB), BP 107/54, PO 66 RA - 90 15Ll nrb, BMI: 29.2 09/27 VS: T 97.8, P 87, R 20, BP 103/66, PO 92 2Lnc 09/26 LAB: WBC 3.9, Hgb 10.7, Pl Ct 140, Lymph 0.5, D Dimer 3.10, CO2 34, BUN 24, Lactic Acid 2.0, CRP 15.4, Procalcitonin 37.81 09/26 COVID negative 09/27 LAB: WBC 15.7, Hgb 9.0, Hct 31.5, Pl Ct 110, Neut 14.90, Lymph 0.47, [place] 0.16, BUN 26, Gluc 141, Calcium 8.2, Alb 3.4. 09/26 CXR: Bilateral airspace and interstitial opacities are concerning for an infectious or inflammatory process. 09/27 CT Chest: Improving lung consolidations with persistent continued ground glass opacities of the bilateral lung vital. There may be some interval development of some nodularity within the lung vital including right lower lobe and left apex. Developing metastatic disease should be considered. No acute pulmonary embolism. Treatment 09/26: INH Ventolin, IV Decadron, IV Toradol 15 mg x1, IV fluid 1,000 ls @ 999 mls/hr q1H, IV fluid 1,000 mls @ 130 mls/hr q7H, IV Azithromycin 250 mls @ 250 mls/hr x1, IV Rocephn 50 mls @ 100 mls/hr x1, IV fluid 1,000 mls @ 100 mls/hr q10H, IV Solumedrol q6H, Lovenox sq, IV Rocephin 50 mls @ 100 mls/hr q12H, IV Clindamycin Phosphate in Dextrose/Water 52 mls @ 50 mls/hr q6H. 09/27: IV Zosyn 100 mls @ 25 mls/hr q8H. In your professional opinion, please clarify if these findings signify one of the following conditions: [ ] Sepsis POA [ ] Sepsis, Not POA [ ] Severe Sepsis with organ failure [ ] Other, please specify [ ] Unable to determine (Template Last Reviewed: July 2020) Sepsis, POA MTDD
[2020-09-28] MEDS: ZOLPIDEM 5 MG TAB PO SCH (20:46)
[2020-09-28] MEDS: CYCLOBENZAPRINE 10 MG TAB PO PRN (20:49)
[2020-09-28] MEDS: oxyCODONE-APAP 5-325MG 1 EACH TAB PO PRN (20:49)
--- NOTE | 2020-09-28 20:51 | P.PN ---
Progress Note - Text Progress Note Date: 09/28/20 Chief Complaint: Short of breath History of presenting complaint: This is a very pleasant 55-year-old patient of Dr. Alexandrea Ang. stable medical conditions include hypertension, , gout, chronic bilateral hip pain, peripheral neuropathy. Atrial fibrillation, gastric [place] [address] Zarate. 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 Dumont. baseline - walk slowly because of peripheral neuropathy. In August 2018 patient had EGD done that showed severe erosive esophagitis with esophageal ulcer. readmitted July 05 2019 underwent balloon dilatation of 10-7 mm done. admitted July 22 and underwent EGD by Dr. Carbajal. Found-severe esophagitis and distal esophageal obstruction. A 10 mm dilatation was carried out. Retained food was extracted. Found to have possible aspiration pneumonia bilateral, treat with IV Zosyn-discharge. Dr. Carbajal discharged on Augmentin on July 26. On December 11 and I&D of the right scrotal abscess. - Shobha's gangrene. In December 2019- small bowel obstruction and recurrent hypoglycemia and was then transferred to [facility]. Patient had been doing well. Last night when lying down patient started having severe reflux with vomiting. And aspirated. Became short of breath. No fever no chills. Pulse ox was done in the ER. Placed on oxygen. Admitted for same. Presentation was rather acute. Placed on oxygen Admitted with aspiration pneumonia and acute hypoxic respiratory failure. Started on IV Zosyn Oxygen supplementation. Incentive spirometry. Today: Breathing much improved. Reclining in bed. Oral intake good. Down to 2 L of nasal cannula.. Review of systems: Was done for constitutional, cardiovascular, GI, pulmonary. relevant finding as above Active Medications Acetaminophen (Acetaminophen Tab 325 Mg Tab) 650 mg PO Q6HR PRN PRN Reason: Mild Pain or Fever > 100.5 Albuterol/Ipratropium (Ipratropium-Albuterol 3 Ml Neb) 3 ml INHALATION RT-QID MATT Last Admin: 09/28/20 18:44 Dose: 3 ml Documented by: Albuterol/Ipratropium (Ipratropium-Albuterol 3 Ml Neb) 3 ml INHALATION RT-QID PRN PRN Reason: Shortness Of Breath Or Wheezing Allopurinol (Allopurinol 300 Mg Tab) 300 mg PO DAILY [facility] Last Admin: 09/28/20 07:29 Dose: 300 mg Documented by: Cyclobenzaprine HCl (Cyclobenzaprine 10 Mg Tab) 10 mg PO BID PRN PRN Reason: Spasms Last Admin: 09/26/20 22:51 Dose: 10 mg Documented by: Enoxaparin Sodium (Enoxaparin 40 Mg/0.4 Ml Syringe) 40 mg SQ DAILY [facility] Last Admin: 09/28/20 07:30 Dose: 40 mg Documented by: Ergocalciferol (Ergocalciferol 1,250 Mcg (50,000 Iu) Capsule) 1,250 mcg PO MO [facility] Escitalopram Oxalate (Escitalopram 10 Mg Tab) 10 mg PO DAILY [facility] Last Admin: 09/28/20 07:29 Dose: 10 mg Documented by: Sodium Chloride (Saline 0.9%) 1,000 mls @ 100 mls/hr IV .Q10H [facility] Last Admin: 09/28/20 17:03 Dose: Not Given Documented by: Piperacillin Sod/Tazobactam (Sod 3.375 gm/ Sodium Chloride) 100 mls @ 25 mls/hr IVPB Q8HR [facility] Last Admin: 09/28/20 16:38 Dose: 25 mls/hr Documented by: Ibuprofen (Ibuprofen 400 Mg Tab) 400 mg PO Q6HR PRN PRN Reason: Mild Pain or Fever > 100.5 Methylprednisolone Sodium Succinate (Methylprednisolone Sod Succi 125 Mg/2 Ml Vial) 40 mg IV Q8H [facility] Last Admin: 09/28/20 16:36 Dose: 40 mg Documented by: Metoprolol Tartrate (Metoprolol Tartrate 12.5 Mg Tab) 12.5 mg PO BID [facility] Last Admin: 09/28/20 20:46 Dose: 12.5 mg Documented by: Morphine Sulfate (Morphine Sulfate 4 Mg/Ml Syringe) 4 mg IV Q4HR PRN PRN Reason: Severe Pain Naloxone HCl (Naloxone 0.4 Mg/Ml 1 Ml Vial) 0.2 mg IV Q2M PRN PRN Reason: Opioid Reversal Oxycodone/Acetaminophen (Oxycodone-Apap 5-325mg 1 Each Tab) 1 each PO QID PRN PRN Reason: Pain Last Admin: 09/26/20 22:52 Dose: 1 each Documented by: Pantoprazole Sodium (Pantoprazole 40 Mg Tablet) 40 mg PO AC-BID [facility] Last Admin: 09/28/20 16:39 Dose: 40 mg Documented by: Polyethylene Glycol (Polyethylene Glycol 3350 17 Gm Powd.Pack) 17 gm PO DAILY [facility] Last Admin: 09/28/20 08:30 Dose: 17 gm Documented by: Pregabalin (Pregabalin 100 Mg Cap) 300 mg PO BID [facility] Last Admin: 09/28/20 20:46 Dose: 300 mg Documented by: Zolpidem Tartrate (Zolpidem 5 Mg Tab) 5 mg PO HS [facility] Last Admin: 09/28/20 20:46 Dose: 5 mg Documented by: Past medical history to include: Hypertension, gout, peripheral neuropathy, atrial fibrillation, gastric sleeve in 2013, gastric-gastric fistula repair, severe esophagitis, esophageal stenosis dilated, Social history: Smoke one half a pack a day for about 38 years-stopped 2018. . No alcohol. Physical examination: VITAL SIGNS: 97.9, 76, 12, 122/61, 91% on 2 L GENERAL: BMI 29.2, reclining in bed looking more comfortable EYES: Pupils equal. Conjunctiva normal. HEENT: External appearance of nose and ears normal, oral cavity grossly normal. NECK: JVD unable to assess; masses not palpable. HEART: First and second heart sounds are normal; no edema. LUNGS: Respiratory rate normal , decrease breath sounds. ABDOMEN: Soft, nontender, liver spleen not palpable, no masses palpable. Left abdominal wall has a pain pump PSYCH: Alert and oriented x3; mood and affect anxious INVESTIGATIONS, reviewed in the clinical context: September 28: WBC 17.8 hemoglobin 8.5 platelets 123 potassium 4.6 creatinine 1.08 procalcitonin 80.01 September 27: WBC 15.7 hemoglobin 9 platelets 110 potassium 4.6 creatinine 1.11 Chest CTA: Improving lung consolidation with persistent continued groundglass opacities in bilateral lung vital. WBC 3.8 hemoglobin 10.7 platelets 140 potassium 4.5 creatinine 1.17 D-dimer 3.10 CRP 15.4 procalcitonin 37.8 Coronavirus [PCR] not detected Ultrasound bilateral lower extremity: Negative for DVT EKG tracing personally reviewed by me-normal sinus rhythm. Poor baseline Chest x-ray film personally reviewed by me-compared to the previous film; Infiltrates more so in the right base, compared to the left Assessment and plan: -Bilateral aspiration pneumonitis secondary to vomiting from severe reflux, with acute presentation-improving Aspiration precautions. IV Zosyn. Incentive spirometry. -Acute hypoxic respiratory failure due to aspiration pneumonitis-improving Supplement oxygen-on 2 L - COPD in a ex-smoker Continue with DuoNeb -History of recurrent esophageal stricture with repeat dilatation -History of paraesophageal repair and history of sleeve gastrectomy -Essential hypertension Continue with Lopressor -Primary osteoarthritis Use Percocet when necessary -Chronic Gout Continue with allopurinol -Idiopathic peripheral neuropathy Continue with Lyrica -Chronic back pain with the pain pump -Anemia of chronic disease -Paroxysmal atrial fibrillation, currently in sinus rhythm continue with beta raf. -Chronic insomnia Continue with Ambien -Chronic GERD Continue with omeprazole -Increasing leukocytosis from steroids. Discussed with the patient. SOFÍA Solu-Medrol. Change to by mouth prednisone hopefully home tomorrow
[2020-09-28] MEDS: predniSONE 20 MG TAB PO SCH (20:55)
--- NOTE | 2020-09-28 23:14 | PN ---
PROGRESS NOTE DATE OF SERVICE: 09/28/2020 REASON FOR FOLLOWUP: Pneumonia. INTERVAL HISTORY: The patient is currently afebrile. The patient seems to be breathing more comfortably. He did have a cough after a breathing treatment. No chest pain, no abdominal pain and no diarrhea. PHYSICAL EXAMINATION: Blood pressure 130/71, pulse of 80, temperature 98.4. He is 96% on 2 L nasal cannula. General description is a middle-aged male up in the bed in no distress. RESPIRATORY SYSTEM: Unlabored breathing. Some coarse breath sounds in the bases bilaterally. No wheeze. HEART: S1, S2. Regular rate and rhythm. ABDOMEN: Soft. No tenderness. LABS: Hemoglobin 8.5, white count 17.9, BUN of 29, creatinine 1.08. Procalcitonin is down to 18.01. Sputum cultures are currently pending. DIAGNOSTIC IMPRESSION AND PLAN: Patient admitted to hospital with a fever, shortness of breath and cough, diagnosed with pneumonia, likely aspiration versus community-acquired. The patient has clinically responded to Zosyn; to continue while waiting for the culture to finalize. Continue with supportive care. MMODL / IJN: [id number] /
[2020-09-29] MEDS: SODIUM CHLORIDE 0.9% 1,000 ML IV SCH (02:02)
[2020-09-29 05:00] VITALS: RESP 18
[2020-09-29] MEDS: PANTOPRAZOLE 40 MG TABLET PO SCH (07:46)
[2020-09-29] MEDS: PIPERACILLIN-TAZOBACTAM 3.375 GM in SODIUM CHLORIDE 0.9% 100 ML IVPB SCH (07:47)
[2020-09-29] MEDS: ESCITALOPRAM 10 MG TAB PO SCH (07:47)
[2020-09-29] MEDS: predniSONE 20 MG TAB PO SCH (07:47)
[2020-09-29] MEDS: PREGABALIN 100 MG CAP PO SCH (07:47)
[2020-09-29] MEDS: polyethylene glycoL 3350 17 GM POWD.PACK PO SCH (07:48)
[2020-09-29] MEDS: allopurinoL 300 MG TAB PO SCH (07:48)
[2020-09-29] MEDS: METOPROLOL TARTRATE 12.5 MG TAB PO SCH (07:48)
[2020-09-29] MEDS: ENOXAPARIN 40 MG/0.4 ML SYRINGE SQ SCH (07:48)
--- NOTE | 2020-09-29 08:13 | XR ---
EXAMINATION TYPE: XR chest 1V portable DATE OF EXAM: 09/29/2020 Comparison: 09/28/2020 Clinical History: 55-year-old male follow-up pneumonia Findings: Rightward patient rotation alters the normal cardiomediastinal contours. Heart appears upper limits o f normal in size. Patchy opacity in the periphery of the right lung and also medial left base may richard ws partial improvement from prior. ACDF hardware. No pleural effusion. Patient's known gastric pull-t hrough is not well demonstrated on the present exam. Impression: Improvement but with some residual patchy peripheral mid and lower lung opacity on the right and at t he medial left base.
[2020-09-29] MEDS: IPRATROPIUM-ALBUTEROL 3 ML NEB INHALATION SCH ×3 (08:35→15:51)
--- NOTE | 2020-09-29 10:46 | P.PN ---
Subjective Progress Note Date: 09/29/20 Principal diagnosis: Aspiration pneumonia This is a 55-year-old white male patient who is known to our service from previous episodes of aspiration pneumonia, has history of esophagitis, esophageal stricture/stenosis with previous esophageal dilatation. His last esophageal dilatation was 2 months ago. He was hospitalized for healthcare acquired pneumonia in May, he was negative for Covid at that time. On 09/27/2011 patient presented to the emergency department with complaints of worsening dyspnea, cough, congestion, phlegm production, he admits to feeling hot and cold, chilled. Tested negative for Covid 19, his chest x-ray shows bilateral airspace and interstitial opacities concerning for an infectious or inflammatory process. His workup showed white blood cell, 3.8, hemoglobin is 10.7, d-dimer was 3.10, CO2 was 34, BUN was 24, and estimated electrolytes were within normal limits, creatinine was 1.17. LDH was 617, and CRP was 15.4. Patient was started on different medicine and Rocephin for possibility of pneumonia, IV steroids, breathing treatments, and he is feeling better today. Is on 5 L of oxygen pulse ox 92%. He is resting comfortably in bed, no hemoptysis, no chest pain, he states his breathing easier, coughing less On 09/27/2020 patient seen in follow-up on the surgical floor, he is resting comfortably in bed, he is awake and alert, he states he is breathing better, still has occasional cough, at times he is able to bring up some sputum but has not been able to give us a specimen yet, his FiO2 on 4 L was 95% this morning, and he was further cut back to 2 L/m. No fever, no chills, no chest pain or hemoptysis, lower extremity Dopplers were negative for DVT, he was initially started on Rocephin and Zithromax for bilateral pneumonia, and was further switched to Zosyn by ID service. Remains on Solu-Medrol, lung sounds reveal mi nimal wheeze, no crackles, clinically doing well, he had a swallow evaluation and he states he passed that, he states he at times has culture with certain foods like steak and the certain meats. No chest discomfort no sensation of fullness or inability to pass food. On 09/28/2020 patient seen in follow-up on medical floor, clinically stable, feeling better, no altered mentation, no chest pain, hemoptysis, he liters of oxygen pulse ox is 92%, his been afebrile, hemodynamically stable, yesterday he has gotten up in the chair tolerated activity well, walked with a walker. CTA chest was completed showing no evidence of pulmonary embolism, and showing improvement lung consolidations with persistent groundglass opacities of the bilateral lung vital, and some interval development of some nodularity within the lung vital including right lower lobe and left apex. Today's chest x-ray shows persistent but improving perihilar and basilar infiltrates. He remains on Zosyn for antibiotic coverage, he is on IV Solu-Medrol 40 mg every 8 hours, he is on GI and DVT prophylaxis. On 09/29/2020 patient seen in follow-up on medical floor, clinically stable, breathing much easier, today's chest x-ray has been reviewed showing improvement in the appearance of bilateral infiltrates, but some residual patchy peripheral mid and lower lung opacities in the right and medial left base remain. Patient is on 2 L of oxygen, his pulse ox is 92-94%, will obtain home oxygen, no chest pain, no hemoptysis, no fever chills, sputum has been sent, patient is on Zosyn for empiric antibiotic coverage, his been transitioned to oral prednisone, he is receiving breathing treatments, he has had no acute events overnight Objective - Vital Signs Vital signs: Vital Signs Temp 98.2 F 09/29/20 07:50 Pulse 80 09/29/20 08:46 Resp 18 09/29/20 09:41 BP 132/71 09/29/20 07:50 Pulse Ox 92 L 09/29/20 09:41 Intake & Output 09/28/20 09/29/20 09/29/20 18:59 06:59 18:59 Intake Total 120 Output Total 300 Balance -180 Weight 108.862 kg Intake: Oral 120 Output: Urine 300 Other: Voiding Method Urinal # Voids 3 1 # Bowel Movements 0 - Exam GENERAL EXAM: Alert, very pleasant, 54-year-old -[place] male, currently on 2 L of oxygen a pulse ox of 92% comfortable in no apparent distress. HEAD: Normocephalic/atraumatic. EYES: Normal reaction of pupils, equal size. Conjunctiva pink, sclera white. NOSE: Clear with pink turbinates. THROAT: No erythema or exudates. NECK: No masses, no JVD, no thyroid enlargement, no adenopathy. CHEST: No chest wall deformity. Symmetrical expansion. LUNGS: Equal air entry with no crackles, wheeze, rhonchi or dullness. CVS: Regular rate and rhythm, normal S1 and S2, no gallops, no murmurs, no rubs ABDOMEN: Soft, nontender. No hepatosplenomegaly, normal bowel sounds, no guarding or rigidity. EXTREMITIES: No clubbing, mild pretibial edema, no cyanosis, 2+ pulses and upper and lower extremities. MUSCULOSKELETAL: Muscle strength and tone normal. SPINE: No scoliosis or deformity SKIN: No rashes CENTRAL NERVOUS SYSTEM: Alert and oriented -3. No focal deficits, tone is normal in all 4 extremities. PSYCHIATRIC: Alert and oriented -3. Appropriate affect. Intact judgment and insight. - Labs CBC & Chem 7: 09/28/20 05:12 09/28/20 05:12 Labs: Abnormal Lab Results - Last 24 Hours (Table) 09/28/20 Range/Units 05:12 Procalcitonin 18.01 H (0.02-0.09) ng/mL Microbiology - Last 24 Hours (Table) 09/28/20 09:36 Gram Stain - Preliminary Sputum Sputum Culture - Preliminary Assessment and Plan Plan: #1. Acute hypoxic respiratory failure related to suspected aspiration pneumonia, ruled out negative for COVID 19 #2. Previous history of aspiration pneumonia #3. History of esophageal stricture, history of esophageal dilatation #4. Chronic anemia, unspecified #5. Morbid obesity, status post gastric sleeve in December 2019 #6. Paroxysmal A. fib, currently sinus mechanism, not on any chronic anticoagulation #7. History of CVA #8. Hypertension #9. History of back surgery and chronic back pain #10. Diabetes mellitus type 2 #11. Former nicotine dependence #12. Elevated d-dimer, lower extremity Dopplers were negative for DVT, CTA chest negative for PE Plan: Patient's stable, no acute events overnight, chest x-ray is also showing improvement in the appearance of bilateral infiltrates, from pulmonary perspective patient is clear for discharge home on antibiotics of ID services choice. He can completed prednisone taper, in follow-up with Dr. Gomez in the office in one to 2 weeks I performed a history & physical examination of the patient and discussed their management with my nurse practitioner, Shea Terry. I reviewed the nurse practitioner's note and agree with the documented findings and plan of care. Lung sounds are positive for diminished breath sounds. The findings and the impression was discussed with the patient. I attest to the documentation by the nurse practitioner. Time with Patient: Less than 30
[2020-09-29 16:31] VITALS: BP 134/75; PULSE 73; TEMP 98.5
--- NOTE | 2020-09-29 22:45 | P.DS ---
Providers Date of admission: 09/26/20 04:26 Expected date of discharge: 09/29/20 Attending physician: Chavez Pedraza Consults: 09/26/20 04:26 Consult Physician Routine Consulting Provider: Dimitri Davidson Consult Reason/Comments: covid Do you want consulting provider notified?: Yes Consult Physician Routine Consulting Provider: Navdeep Piedra Consult Reason/Comments: covid? Do you want consulting provider notified?: Yes Primary care physician: Eric Ang [facility] Course: Chief Complaint: Short of breath History of presenting complaint: This is a very pleasant 55-year-old patient of Dr. Alexandrea Ang. stable medical conditions include hypertension, , gout, chronic bilateral hip pain, peripheral neuropathy. Atrial fibrillation, gastric [place] [address] Zarate. 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 Dumont. baseline - walk slowly because of peripheral neuropathy. In August 2018 patient had EGD done that showed severe erosive esophagitis with esophageal ulcer. readmitted July 05 2019 underwent balloon dilatation of 10-7 mm done. admitted July 22 and underwent EGD by Dr. Carbajal. Found-severe esophagitis and distal esophageal obstruction. A 10 mm dilatation was carried out. Retained food was extracted. Found to have possible aspiration pneumonia bilateral, treat with IV Zosyn-discharge. Dr. Carbajal discharged on Augmentin on July 26. On December 11 and I&D of the right scrotal abscess. - Shobha's gangrene. In December 2019- small bowel obstruction and recurrent hypoglycemia and was then transferred to [facility]. Patient had been doing well. Last night when lying down patient started having severe reflux with vomiting. And aspirated. Became short of breath. No fever no chills. Pulse ox was done in the ER. Placed on oxygen. Admitted for same. Presentation was rather acute. Placed on oxygen Admitted with aspiration pneumonia and acute hypoxic respiratory failure. Started on IV Zosyn Oxygen supplementation. Incentive spirometry. Today: T much better. Patient taken off oxygen. Oxygenating well. Oral intake fair. Breathing stable. Stop steroids changed to Augmentin. Consultation: Dr. Gomez from pulmonary Past medical history to include: Hypertension, gout, peripheral neuropathy, atrial fibrillation, gastric sleeve in 2014, gastric-gastric fistula repair, severe esophagitis, esophageal stenosis dilated, Social history: Smoke one half a pack a day for about 38 years-stopped 2018. . No alcohol. Physical examination: VITAL SIGNS: 98.5, 73, 18, 1:30/75, 92% room air GENERAL: BMI 29.2, reclining in bed comfortable EYES: Pupils equal. Conjunctiva normal. HEENT: External appearance of nose and ears normal, oral cavity grossly normal. NECK: JVD unable to assess; masses not palpable. HEART: First and second heart sounds are normal; no edema. LUNGS: Respiratory rate normal , decrease breath sounds. ABDOMEN: Soft, nontender, liver spleen not palpable, no masses palpable. Left abdominal wall has a pain pump PSYCH: Alert and oriented x3; mood and affect anxious INVESTIGATIONS, reviewed in the clinical context: September 29: WBC 17.8 hemoglobin 8.5 potassium 4.6 creatinine 1.08 September 28: WBC 17.8 hemoglobin 8.5 platelets 123 potassium 4.6 creatinine 1.08 procalcitonin 80.01 September 27: WBC 15.7 hemoglobin 9 platelets 110 potassium 4.6 creatinine 1.11 Chest CTA: Improving lung consolidation with persistent continued groundglass opacities in bilateral lung vital. WBC 3.8 hemoglobin 10.7 platelets 140 potassium 4.5 creatinine 1.17 D-dimer 3.10 CRP 15.4 procalcitonin 37.8 Coronavirus [PCR] not detected Ultrasound bilateral lower extremity: Negative for DVT EKG tracing personally reviewed by me-normal sinus rhythm. Poor baseline Chest x-ray film personally reviewed by me-compared to the previous film; Infiltrates more so in the right base, compared to the left Assessment and plan: -Bilateral aspiration pneumonitis secondary to vomiting from severe reflux, with acute much improved Aspiration precautions. IV Zosyn. Incentive spirometry. The discharge in Augmentin -Acute hypoxic respiratory failure due to aspiration pneumonia, corrected Supplement oxygen-on 2 L-discontinued - COPD in a ex-smoker Continue with DuoNeb -History of recurrent esophageal stricture with repeat dilatation -History of paraesophageal repair and history of sleeve gastrectomy -Essential hypertension Continue with Lopressor -Primary osteoarthritis Use Percocet when necessary -Chronic Gout Continue with allopurinol -Idiopathic peripheral neuropathy Continue with Lyrica -Chronic back pain with the pain pump -Anemia of chronic disease -Paroxysmal atrial fibrillation, currently in sinus rhythm continue with beta raf. -Chronic insomnia Continue with Ambien -Chronic GERD Continue with omeprazole -Increasing leukocytosis from steroids. Disposition: Home Patient Condition at Discharge: Fair Plan - Discharge Summary Discharge Rx Participant: No New Discharge Prescriptions: New Amoxicillin/Potassium Clav [Augmentin 875-125 Tablet] 1 tab PO Q12HR #6 tab Continue Escitalopram [Lexapro] 10 mg PO DAILY Allopurinol [Zyloprim] 300 mg PO DAILY Omeprazole 40 mg PO BID #60 cap Cyclobenzaprine [Flexeril] 10 mg PO BID PRN #0 PRN Reason: Spasms Pregabalin [Lyrica] 300 mg PO BID #6 cap Metoprolol Tartrate [Lopressor] 12.5 mg PO BID oxyCODONE HCL/ACETAMINOPHEN [Percocet 5-325 mg] 1 tab PO QID PRN PRN Reason: Pain Zolpidem [Ambien] 5 mg PO HS #30 tab polyethylene glycoL 3350 [Miralax] 17 gm PO DAILY Ergocalciferol [Vitamin D2 (1250 Mcg = 61014 Iu)] 1,250 mcg PO MO Discontinued Docusate [Colace] 100 mg PO DAILY Discharge Medication List Allopurinol [Zyloprim] 300 mg PO DAILY 06/04/16 [History] Escitalopram [Lexapro] 10 mg PO DAILY 06/04/16 [History] Omeprazole 40 mg PO BID #60 cap 07/06/19 [Rx] Cyclobenzaprine [Flexeril] 10 mg PO BID PRN #0 03/27/20 [Rx] Pregabalin [Lyrica] 300 mg PO BID #6 cap 03/27/20 [Rx] Metoprolol Tartrate [Lopressor] 12.5 mg PO BID 04/28/20 [History] oxyCODONE HCL/ACETAMINOPHEN [Percocet 5-325 mg] 1 tab PO QID PRN 08/31/20 [History] Zolpidem [Ambien] 5 mg PO HS #30 tab 09/02/20 [Rx] Ergocalciferol [Vitamin D2 (1250 Mcg = 38446 Iu)] 1,250 mcg PO MO 09/26/20 [History] polyethylene glycoL 3350 [Miralax] 17 gm PO DAILY 09/26/20 [History] Amoxicillin/Potassium Clav [Augmentin 875-125 Tablet] 1 tab PO Q12HR #6 tab 09/29/20 [Rx] Follow up Appointment(s)/Referral(s): Wilner Gomez DO [Doctor of Osteopathic Medicine] - 1 Week Eric Ang DO [Primary Care Provider] - 1-2 days Patient Instructions/Handouts: Amoxicillin/Clavulanate Potassium (By mouth), Viral Pneumonia (DC), Chronic Lung Disease and Infection Prevention (DC) Discharge Disposition: HOME SELF-CARE
[2020-10-02] MEDS ORDERED: ERGOCALCIFEROL 1,250 MCG (50,000 IU) CAPSULE PO SCH (09:00)
--- NOTE | 2020-10-23 06:10 | CDI ---
Documentation Clarification Form Date: 10/23/20 From: Zaira Hazel Phone: Admit Date: 09/26/2020 04:26:00 AM Patient Name: Kevin Barbosa Visit Number: [id number] Discharge Date: 09/29/2020 03:35:00 PM ATTENTION: The Clinical Documentation Specialists (CDI) and [facility] Coding Staff appreciate your assistance in clarifying documentation. Please respond to the clarification below the line at the bottom and electronically sign. The CDI & [facility] Coding staff will review the response and follow-up if needed. Please note: Queries are made part of the Legal Health Record. If you have any questions, please contact the author of this message via ITS. Dr. Chavez Pedraza, Aspiration pneumonia is documented in the discharge summary. Additional clarification regarding the type of pneumonia is requested. History/Risk Factors: Hx of community acquired pneumonia, acute hypoxic respiratory failure, COPD Clinical Indicators: Per query you documented sepsis present on admission. Sputum culture grew moderate Klebsiella pneumoniae, SOB, cough, chest pain, O2 sat-66 WBC/Left shift:3.8/15.7/17.8 4/6 X-ray: Bilateral airspace and interstitial opacities are concerning for an infectious or inflammatory process. Lung/Breathing assessment: SOB Treatment: Albuterol inhaler, IV fluids, IV Solu-Medrol, Antibiotics: IV Azithromycin, IV Ceftriaxone, IV Clindamycin, IV Zoysn O2: Nonbreather 15L Please clarify the type of pneumonia, if known: [ ] Bacterial Pneumonia superimposed on aspiration pneumonia, specify causal organism (if known) [ + ] Gram Negative Bacterial Pneumonia superimposed on aspiration pneumonia [ ] Other bacteria (please specify) [ ] Other, please specify [ ] Unable to determine Gram-negative bacterial pneumonia superimposed on aspiration pneumonia MTDD
== END 2020-09-29 15:35 | disposition home or self-care (01) | DRG 871 ==
LOC: EC 01:15 → 4SSUR 04:26 → 1SOBS 07:40
PROVIDERS: ADMIT Hospitalist; ATTEND Hospitalist
DX: A41.9 Sepsis, unspecified organism (principal); J69.0 Pneumonitis due to inhalation of food and vomit; J96.01 Acute respiratory failure with hypoxia; J15.6 Pneumonia due to other Gram-negative bacteria; J44.0 Chronic obstructive pulmonary disease with (acute) lower respiratory infection; K22.2 Esophageal obstruction; D63.8 Anemia in other chronic diseases classified elsewhere; I48.0 Paroxysmal atrial fibrillation; G40.909 Epilepsy, unspecified, not intractable, without status epilepticus; E11.9 Type 2 diabetes mellitus without complications; Z20.822 Contact with and (suspected) exposure to COVID-19; K21.00 Gastro-esophageal reflux disease with esophagitis, without bleeding; E78.5 Hyperlipidemia, unspecified; I10 Essential (primary) hypertension; G60.9 Hereditary and idiopathic neuropathy, unspecified; M19.91 Primary osteoarthritis, unspecified site; M1A.9XX0 Chronic gout, unspecified, without tophus (tophi); G89.29 Other chronic pain; M54.9 Dorsalgia, unspecified; M25.551 Pain in right hip; M25.552 Pain in left hip; D72.829 Elevated white blood cell count, unspecified; T38.0X5A Adverse effect of glucocorticoids and synthetic analogues, initial encounter; F32.9 Major depressive disorder, single episode, unspecified; F41.9 Anxiety disorder, unspecified; K59.00 Constipation, unspecified; F51.04 Psychophysiologic insomnia; Z79.899 Other long term (current) drug therapy; Z86.73 Personal history of transient ischemic attack (TIA), and cerebral infarction without residual deficits; Z87.01 Personal history of pneumonia (recurrent); Z87.19 Personal history of other diseases of the digestive system; Z86.19 Personal history of other infectious and parasitic diseases; Z90.49 Acquired absence of other specified parts of digestive tract; Z98.84 Bariatric surgery status; Z96.643 Presence of artificial hip joint, bilateral; Z96.612 Presence of left artificial shoulder joint; Z87.891 Personal history of nicotine dependence; Z87.39 Personal history of other diseases of the musculoskeletal system and connective tissue; Z97.8 Presence of other specified devices; Z98.1 Arthrodesis status; Z98.890 Other specified postprocedural states; Z80.1 Family history of malignant neoplasm of trachea, bronchus and lung; Z82.49 Family history of ischemic heart disease and other diseases of the circulatory system
CPT/HCPCS: 36415; 71045; 71275; 80053; 82728; 83605; 83615; 83735; 84100; 84145; 85025; 85027; 85379; 85610; 85730; 86140; 87070; 87077; 87186; 87205; 87635; 93005; 93970; 94640; 96374; 96375; 99285

== ENCOUNTER 2020-10-05 15:52 | Inpatient (IN) | payer MEDICARE, OTHER ==
[2020-10-05] MEDS ORDERED: ACETAMINOPHEN TAB 500 MG TAB PO STA (16:19)
[2020-10-05] MEDS ORDERED: IBUPROFEN 600 MG TAB PO STA (16:19)
--- NOTE | 2020-10-05 16:26 | ED ---
General Adult HPI - General Chief complaint: Shortness of Breath Stated complaint: fever, low 02, possible covid Time Seen by Provider: 10/05/20 15:55 Source: patient, RN notes reviewed, old records reviewed Mode of arrival: wheelchair Limitations: no limitations - History of Present Illness Initial comments: This is a 55-year-old male who presents emergency Department with shortness of breath and some coughing. Patient states she was recently admitted for pneumonia. Patient states those symptoms started approximately 2 weeks ago. Patient states he was tested negative for COVID. She states he still short of breath and it appears to be getting worse we decided come to the emergency department. Patient denies any chest pain or palpitations. Patient denies abdominal pain patient denies nausea vomiting or diarrhea. Patient states he feels hot. Patient has not taken his temperature. Patient denies any abdominal pain patient denies nausea vomiting diarrhea. Patient denies any calf tenderness - Related Data Home Medications Medication Instructions Recorded Confirmed Allopurinol [Zyloprim] 300 mg PO DAILY 06/04/16 10/05/20 Escitalopram [Lexapro] 10 mg PO DAILY 06/04/16 10/05/20 Metoprolol Tartrate [Lopressor] 12.5 mg PO BID 04/28/20 10/05/20 oxyCODONE HCL/ACETAMINOPHEN 1 tab PO QID PRN 08/31/20 10/05/20 [Percocet 5-325 mg] Ergocalciferol [Vitamin D2 (1250 1,250 mcg PO MO 09/26/20 10/05/20 Mcg = 75441 Iu)] polyethylene glycoL 3350 [Miralax] 17 gm PO DAILY 09/26/20 10/05/20 Previous Rx's Medication Instructions Recorded Omeprazole 40 mg PO BID #60 cap 07/06/19 Cyclobenzaprine [Flexeril] 10 mg PO BID PRN #0 03/27/20 Pregabalin [Lyrica] 300 mg PO BID #6 cap 03/27/20 Zolpidem [Ambien] 5 mg PO HS #30 tab 09/02/20 Amoxicillin/Potassium Clav 1 tab PO Q12HR #6 tab 09/29/20 [Augmentin 875-125 Tablet] Allergies Allergy/AdvReac Type Severity Reaction Status Date / Time No Known Allergies Allergy Verified 10/05/20 17:00 Review of Systems ROS Statement: Those systems with pertinent positive or pertinent negative responses have been documented in the HPI. ROS Other: All systems not noted in ROS Statement are negative. Past Medical History Past Medical History: Atrial Fibrillation, COPD, CVA/TIA, GERD/Reflux, Hyperlipidemia, Hypertension, Osteoarthritis (OA), Pneumonia, Seizure Disorder, Sleep Apnea/CPAP/BIPAP Additional Past Medical History / Comment(s): hiatal hernia, gout, neuropathy marta legs and feet- states feet are numb, some numbness in legs & tingling in hands., chronic back pain., constipation., dysphagia-hx of EGD with dilation, chronic esophogeal stenosis. Last October 2019, states frequent pneumonia & not sure why, recent admission for History of Any Multi-Drug Resistant Organisms: CRE, ESBL Date of last positivie culture/infection: 09/28/20 ESBL Klebsiella MDRO Source:: Sputum Past Surgical History: Back Surgery, Bariatric Surgery, Bowel Resection, Heart Catheterization, Joint Replacement, Orthopedic Surgery Additional Past Surgical History / Comment(s): PAIN PUMP IMPLANTED 07/17/18, HX GASTRIC SLEEVE AND . BILATERAL KNEE arthroscopy, BILATERAL HIP replacement, LEFT SHOULDER replacement, LEFT ACHILES TENDON SX., RIGHT BIG TOE took piece out, echocardiolgram, spinal fusion, EGD with dilation., STATES HX OF PNEUMONIA WITH LUNG SURGERY., REPAIR OF HIATAL HERNIA & LYSIS OF ADHESIONS Past Anesthesia/Blood Transfusion Reactions: No Reported Reaction Past Psychological History: Anxiety, Depression Smoking Status: Former smoker Past Alcohol Use History: None Reported Past Drug Use History: None Reported - Past Family History Father Family Medical History: Cancer Additional Family Medical History / Comment(s): lung Mother Family Medical History: Coronary Artery Disease (CAD) Additional Family Medical History / Comment(s): . General Exam - General Exam Comments Initial Comments: GENERAL: Patient is well-developed and well-nourished. Patient is nontoxic and well- hydrated and is in mild distress. ENT: Neck is soft and supple. No significant lymphadenopathy is noted. Oropharynx is clear. Moist mucous membranes. Neck has full range of motion without elicit ing any pain. EYES: The sclera were anicteric and conjunctiva were pink and moist. Extraocular mo vements were intact and pupils were equal round and reactive to light. Eyelids were unremarkable. PULMONARY: Unlabored respirations. Good breath sounds bilaterally. No audible rales rhonchi or wheezing was noted. CARDIOVASCULAR: There is a regular rate and rhythm without any murmurs gallops or rubs. ABDOMEN: Soft and nontender with normal bowel sounds. SKIN: Skin is clear with no lesions or rashes and otherwise unremarkable. NEUROLOGIC: Patient is alert and oriented x3. Cranial nerves II through XII are grossly intact. Motor and sensory are also intact. Normal speech, volume and content. Symmetrical smile. MUSCULOSKELETAL: Normal extremities with adequate strength and full range of motion. 2+ bilaterally LYMPHATICS: No significant lymphadenopathy is noted PSYCHIATRIC: Normal psychiatric evaluation. Limitations: no limitations Course Vital Signs 10/05/20 10/05/20 10/05/20 15:55 16:16 17:41 Temperature 99.4 F 102.4 F H Pulse Rate 91 Respiratory 18 18 Rate Blood Pressure 120/66 O2 Sat by Pulse 88 L Oximetry 10/05/20 18:03 Temperature 101.4 F H Pulse Rate 78 Respiratory 18 Rate Blood Pressure 107/65 O2 Sat by Pulse 98 Oximetry Medical Decision Making - Medical Decision Making EKG shows normal sinus rhythm at 87 bpm NJ interval 242 QRS is 106 QT interval 364 QTC is 438. Patient's EKG shows no ST segment elevation or depression. Chest x-ray shows bilateral pneumonia. I started the patient on [facility] emergency department with the patient on [facility] on the floor. I spoke with Dr. Pedraza agreed to admit the patient admitted the patient I wrote admitting orders. - Lab Data Result diagrams: 10/05/20 16:27 10/05/20 16:27 Lab Results 10/05/20 10/05/20 10/05/20 Range/Units 16:27 16:27 16:27 WBC 18.4 H (3.8-10.6) k/uL RBC 4.13 L (4.30-5.90) m/uL Hgb 8.8 L (13.0-17.5) gm/dL Hct 29.6 L (39.0-53.0) % MCV 71.7 L (80.0-100.0) fL MCH 21.2 L (25.0-35.0) pg MCHC 29.6 L (31.0-37.0) g/dL RDW 20.0 H (11.5-15.5) % Plt Count 279 D (150-450) k/uL MPV 8.0 Neutrophils % 87 % Lymphocytes % 6 % Monocytes % 5 % Eosinophils % 1 % Basophils % 0 % Neutrophils # 16.0 H (1.3-7.7) k/uL Lymphocytes # 1.1 (1.0-4.8) k/uL Monocytes # 0.9 (0-1.0) k/uL Eosinophils # 0.2 (0-0.7) k/uL Basophils # 0.1 (0-0.2) k/uL Hypochromasia Marked Poikilocytosis Moderate Anisocytosis Moderate Microcytosis Marked PT 12.0 (9.0-12.0) sec INR 1.1 (<1.2) APTT 24.7 (22.0-30.0) sec Sodium (137-145) mmol/L Potassium (3.5-5.1) mmol/L Chloride (98-107) mmol/L Carbon Dioxide (22-30) mmol/L Anion Gap mmol/L BUN (9-20) mg/dL Creatinine (0.66-1.25) mg/dL Est GFR (CKD-EPI)AfAm (>60 ml/min/1.73 sqM) Est GFR (CKD-EPI)NonAf (>60 ml/min/1.73 sqM) Glucose (74-99) mg/dL Plasma Lactic Acid Suresh (0.7-2.0) mmol/L Calcium (8.4-10.2) mg/dL Total Bilirubin (0.2-1.3) mg/dL AST (17-59) U/L ALT (4-49) U/L Alkaline Phosphatase (38-126) U/L Total Protein (6.3-8.2) g/dL Albumin (3.5-5.0) g/dL Coronavirus (PCR) Not Detected (Not Detectd) Influenza Type A RNA (Not Detectd) Influenza Type B (PCR) (Not Detectd) 10/05/20 10/05/20 10/05/20 Range/Units 16:27 16:27 16:27 WBC (3.8-10.6) k/uL RBC (4.30-5.90) m/uL Hgb (13.0-17.5) gm/dL Hct (39.0-53.0) % MCV (80.0-100.0) fL MCH (25.0-35.0) pg MCHC (31.0-37.0) g/dL RDW (11.5-15.5) % Plt Count (150-450) k/uL MPV Neutrophils % % Lymphocytes % % Monocytes % % Eosinophils % % Basophils % % Neutrophils # (1.3-7.7) k/uL Lymphocytes # (1.0-4.8) k/uL Monocytes # (0-1.0) k/uL Eosinophils # (0-0.7) k/uL Basophils # (0-0.2) k/uL Hypochromasia Poikilocytosis Anisocytosis Microcytosis PT (9.0-12.0) sec INR (<1.2) APTT (22.0-30.0) sec Sodium 133 L (137-145) mmol/L Potassium 5.3 H (3.5-5.1) mmol/L Chloride 96 L (98-107) mmol/L Carbon Dioxide 33 H (22-30) mmol/L Anion Gap 4 mmol/L BUN 11 (9-20) mg/dL Creatinine 0.86 (0.66-1.25) mg/dL Est GFR (CKD-EPI)AfAm >90 (>60 ml/min/1.73 sqM) Est GFR (CKD-EPI)NonAf >90 (>60 ml/min/1.73 sqM) Glucose 95 (74-99) mg/dL Plasma Lactic Acid Suresh 0.9 (0.7-2.0) mmol/L Calcium 8.0 L (8.4-10.2) mg/dL Total Bilirubin 0.7 (0.2-1.3) mg/dL AST 25 (17-59) U/L ALT 8 (4-49) U/L Alkaline Phosphatase 83 (38-126) U/L Total Protein 6.7 (6.3-8.2) g/dL Albumin 3.0 L (3.5-5.0) g/dL Coronavirus (PCR) (Not Detectd) Influenza Type A RNA Not Detected (Not Detectd) Influenza Type B (PCR) Not Detected (Not Detectd) Disposition Clinical Impression: Pneumonia Disposition: ADMITTED IP TO THIS HOSP Referrals: Eric Ang DO [Primary Care Provider] - 1-2 days Time of Disposition: 19:07
[2020-10-05] MEDS: SODIUM CHLORIDE 0.9% 500 ML 500 ML IV SCH ×2 (17:26→20:30)
[2020-10-05 17:27] LABS: Anisocytosis Moderate; Basophils # (A) 0.1 k/uL (0-0.2); Basophils % (A) 0 %; Eosinophils # (A) 0.2 k/uL (0-0.7); Eosinophils % (A) 1 %; HCT 29.6 % (39.0-53.0); HGB 8.8 gm/dL (13.0-17.5); Hypochromasia Marked; Lymphocytes # (A) 1.1 k/uL (1.0-4.8); Lymphocytes % (A) 6 %; MCH 21.2 pg (25.0-35.0); MCHC 29.6 g/dL (31.0-37.0); MCV 71.7 fL (80.0-100.0); Microcytosis Marked; Monocytes # (A) 0.9 k/uL (0-1.0); Monocytes % (A) 5 %; Neutrophils % (A) 87 %; Poikilocytosis Moderate; RBC 4.13 m/uL (4.30-5.90); WBC 18.4 k/uL (3.8-10.6)
[2020-10-05 17:36] LABS: INR 1.1 (<1.2); Partial Thromboplastin Time 24.7 sec (22.0-30.0)
[2020-10-05 17:40] LABS: ALT 8 U/L (4-49); AST 25 U/L (17-59); African American GFR (CKD) >90 (>60 ml/min/1.73 sqM); Alkaline Phosphatase 83 U/L (38-126); Anion Gap 4 mmol/L; Blood Urea Nitrogen 11 mg/dL (9-20); Carbon Dioxide 33 mmol/L (22-30); Chloride 96 mmol/L (98-107); Glucose 95 mg/dL (74-99); Non-African American GFR(CKD) >90 (>60 ml/min/1.73 sqM); Platelet Count 279 k/uL (150-450); Potassium 5.3 mmol/L (3.5-5.1); Sodium 133 mmol/L (137-145); Total Bilirubin 0.7 mg/dL (0.2-1.3); Total Protein 6.7 g/dL (6.3-8.2)
--- NOTE | 2020-10-05 18:04 | XR ---
EXAMINATION: XR chest 1V portable DATE AND TIME: 10/05/2020 5:38 PM CLINICAL INDICATION: PHH; Fever TECHNIQUE: Departmental protocol COMPARISON: 09/29/2020 FINDINGS: The film is rotated RPO. Currently there are multifocal prominent ill-defined added opacities throughout the right and left abhi ng, consistent with prominent interval worsening in the multifocal bilateral pneumonia pattern when c ompared to the prior study of 09/29/2020. There is no evidence of pulmonary edema. The pleural spaces are negative as seen. The cardiac silhouette is not enlarged. The remainder of the mediastinal silhouette is unremarkable. The skeletal structures and soft tissues are negative for acute findings. IMPRESSION: Prominent interval lung parenchymal worsening.
[2020-10-05] MEDS ORDERED: cefTRIAXone IN SWFI 1,000 MG/10 ML SYRINGE IVP STA (18:23)
[2020-10-05] MEDS ORDERED: PNEUMONIA PROTOCOL UTILIZED 1 EACH MISC PO PRN (19:07)
[2020-10-05] MEDS ORDERED: PIPERACILLIN-TAZOBACTAM 3.375 GM in SODIUM CHLORIDE 0.9% 100 ML IVPB STA (19:07)
[2020-10-05] MEDS ORDERED: AZITHROMYCIN 500 MG in SODIUM CHLORIDE 0.9% 250 ML IVPB STA (19:07)
[2020-10-05 22:40] LABS: Appearance,Urine Clear (Clear); Bilirubin,Urine Negative (Negative); Blood,Urine Negative (Negative); Color,Urine Yellow; Glucose,Urine (UA) Negative (Negative); Ketones,Urine Negative (Negative); Leukocyte Esterase,Urine Negative (Negative); Nitrite,Urine Negative (Negative); PH, Urine 7.5 (5.0-8.0); Protein,Urine Negative (Negative); Specific Gravity,Urine 1.003 (1.001-1.035)
[2020-10-05] MEDS: metroNIDAZOLE-NS PMX 500 MG in SALINE 1 100ML.BAG IVPB SCH (23:46)
[2020-10-06] MEDS ORDERED: CYCLOBENZAPRINE 10 MG TAB PO PRN (05:02)
[2020-10-06] MEDS: PIPERACILLIN-TAZOBACTAM 3.375 GM in SODIUM CHLORIDE 0.9% 100 ML IVPB SCH ×2 (05:06→13:08)
--- NOTE | 2020-10-06 07:31 | XR ---
EXAMINATION TYPE: XR chest 1V portable DATE OF EXAM: 10/06/2020 Comparison: 10/05/2020 Clinical History: 55-year-old male PNA Findings: ACDF hardware. Heart upper limits of normal in size. Multifocal patchy opacities, greater to the left show some improvement in aeration on the left. No pleural effusion. Impression: Multifocal airspace disease, right greater than left. There has been some improvement in aeration on the left side.
[2020-10-06] MEDS: ESCITALOPRAM 10 MG TAB PO SCH (08:50)
[2020-10-06] MEDS: METOPROLOL TARTRATE 12.5 MG TAB PO SCH ×2 (08:50→21:08)
[2020-10-06] MEDS: PANTOPRAZOLE 40 MG TABLET PO SCH ×2 (08:50→21:08)
[2020-10-06] MEDS: allopurinoL 300 MG TAB PO SCH (08:50)
[2020-10-06] MEDS: PREGABALIN 100 MG CAP PO SCH ×2 (08:50→21:08)
[2020-10-06] MEDS: metroNIDAZOLE-NS PMX 500 MG in SALINE 1 100ML.BAG IVPB SCH (08:51)
[2020-10-06] MEDS: polyethylene glycoL 3350 17 GM POWD.PACK PO SCH (08:52)
[2020-10-06] MEDS: oxyCODONE-APAP 5-325MG 1 EACH TAB PO PRN (08:57)
--- NOTE | 2020-10-06 13:50 | P.CNPUL ---
History of Present Illness Consult date: 10/06/20 Reason for consult: dyspnea, pneumonia History of present illness: 55-year-old male patient with known history of aspiration pneumonia knowing that the patient has history of esophageal stenosis/fracture and the patient has had previous history of esophageal dilatation. Last dilatation was done approximately 2-3 months ago. The patient was hospitalized recently on 09/26/2020 with pneumonia and her COVID-19 testing was at that time negative. He has other comorbidities including morbid obesity with a previous history of gastric sleeve, history of atrial fibrillation, CVA, hypertension, chronic back pain, diabetes mellitus type 2. She was discharged home on 10/06/2020 and the patient was treated for bilateral aspiration pneumonia with a combination of antibiotics including IV Zosyn and the patient was discharged on oxygen and PRIMAXIN. The patient came in again to the hospital on 10/05/2020 with shortness of breath. He tested negative for COVID-19. He was having difficulties in breathing in the emergency. Denies having any chest pain. No abdominal pain. No nausea. No vomiting. No emesis. He is white cell count was 18.4 with a hemoglobin of 8.8, sodium was 133 with a potassium of 5.3 and a chloride of 96, creatinine is at 0.8. Coagulation profile was normal. The patient had another COVID-19 testing came back negative. Influenza A and B was also negative. The chest x-ray showing chronic infiltrate involving the right lung and the right lung is essentially smaller compared to the left indicating underlying volume loss. The chest x-ray showed multifocal airspace disease right more than left. The patient was restarted on antibiotics and the patient is currently on IV Zosyn. He is also on Flagyl. He is on oxygen at 5 L. His most recent sputum from 09/28/2020 showed Klebsiella pneumoniae (ESBL) and C andida. Review of Systems Constitutional: Denies chills, Denies fever Eyes: denies blurred vision, denies pain Ears, nose, mouth and throat: Denies headache, Denies sore throat Cardiovascular: Denies chest pain, Denies shortness of breath Respiratory: Reports cough with sputum, Reports dyspnea Gastrointestinal: Denies abdominal pain, Denies diarrhea, Denies nausea, Denies vomiting, history of aspiration and the patient is known to have esophageal strictures Musculoskeletal: Denies myalgias Integumentary: Denies pruritus, Denies rash Neurological: Denies numbness, Denies weakness Psychiatric: Denies anxiety, Denies depression Endocrine: Denies fatigue, Denies weight change Past Medical History Past Medical History: Atrial Fibrillation, COPD, CVA/TIA, GERD/Reflux, Hyperlipidemia, Hypertension, Osteoarthritis (OA), Pneumonia, Seizure Disorder, Sleep Apnea/CPAP/BIPAP Additional Past Medical History / Comment(s): hiatal hernia, gout, neuropathy marta legs and feet- states feet are numb, some numbness in legs & tingling in hands., chronic back pain., constipation., dysphagia-hx of EGD with dilation, chronic esophogeal stenosis. Last October 2019, states frequent pneumonia & not sure why, recent admission for History of Any Multi-Drug Resistant Organisms: CRE, ESBL Date of last positivie culture/infection: 09/28/20 ESBL Klebsiella MDRO Source:: Sputum Past Surgical History: Back Surgery, Bariatric Surgery, Bowel Resection, Heart Catheterization, Joint Replacement, Orthopedic Surgery Additional Past Surgical History / Comment(s): PAIN PUMP IMPLANTED 07/17/18, HX GASTRIC SLEEVE AND . BILATERAL KNEE arthroscopy, BILATERAL HIP replacement, LEFT SHOULDER replacement, LEFT ACHILES TENDON SX., RIGHT BIG TOE took piece out, echocardiolgram, spinal fusion, EGD with dilation., STATES HX OF PNEUMONIA WITH LUNG SURGERY., REPAIR OF HIATAL HERNIA & LYSIS OF ADHESIONS Past Anesthesia/Blood Transfusion Reactions: No Reported Reaction Past Psychological History: Anxiety, Depression Additional Psychological History / Comment(s): Pt resides with his spouse, daughter and in laws. He uses a walker to ambulate. He does not drive, his spouse takes him to appts. Smoking Status: Former smoker Past Alcohol Use History: None Reported Additional Past Alcohol Use History / Comment(s): Pt started smoking in 1985 and quit in 2018. Past Drug Use History: None Reported - Past Family History Father Family Medical History: Cancer Additional Family Medical History / Comment(s): lung Mother Family Medical History: Coronary Artery Disease (CAD) Additional Family Medical History / Comment(s): . Medications and Allergies Home Medications Medication Instructions Recorded Confirmed Type Allopurinol [Zyloprim] 300 mg PO DAILY 06/04/16 10/05/20 History Escitalopram [Lexapro] 10 mg PO DAILY 06/04/16 10/05/20 History Omeprazole 40 mg PO BID #60 cap 07/06/19 10/05/20 Rx Cyclobenzaprine [Flexeril] 10 mg PO BID PRN #0 03/27/20 10/05/20 Rx Pregabalin [Lyrica] 300 mg PO BID #6 cap 03/27/20 10/05/20 Rx Metoprolol Tartrate [Lopressor] 12.5 mg PO BID 04/28/20 10/05/20 History oxyCODONE HCL/ACETAMINOPHEN 1 tab PO QID PRN 08/31/20 10/05/20 History [Percocet 5-325 mg] Zolpidem [Ambien] 5 mg PO HS #30 tab 09/02/20 10/05/20 Rx Ergocalciferol [Vitamin D2 (1250 1,250 mcg PO MO 09/26/20 10/05/20 History Mcg = 41919 Iu)] polyethylene glycoL 3350 [Miralax] 17 gm PO DAILY 09/26/20 10/05/20 History Amoxicillin/Potassium Clav 1 tab PO Q12HR #6 tab 09/29/20 10/05/20 Rx [Augmentin 875-125 Tablet] Allergies Allergy/AdvReac Type Severity Reaction Status Date / Time No Known Allergies Allergy Verified 10/05/20 17:00 Physical Exam Vitals: Vital Signs Temp Pulse Pulse Resp BP BP Pulse Ox 10/06/20 10:15 98.5 F 71 20 119/81 98 10/06/20 08:00 75 15 10/06/20 01:11 98.0 F 75 15 119/69 94 L 10/05/20 22:48 16 10/05/20 22:28 97.9 F 81 16 102/66 95 10/05/20 20:23 99.0 F 75 18 108/72 93 L 10/05/20 18:03 101.4 F H 78 18 107/65 98 10/05/20 17:41 18 10/05/20 16:16 102.4 F H 10/05/20 15:55 99.4 F 91 18 120/66 88 L Intake and Output 10/05/20 10/06/20 10/06/20 22:59 06:59 14:59 Intake Total 200 Output Total 425 Balance -425 200 Intake: Oral 200 Output: Urine 425 Other: Voiding Method Toilet Toilet Urinal Urinal Weight 127.006 kg GENERAL EXAM: Alert, very pleasant, 54-year-old -[place] male, currently on room air with a pulse ox of 96% comfortable in no apparent distress. HEAD: Normocephalic/atraumatic. EYES: Normal reaction of pupils, equal size. Conjunctiva pink, sclera white. NOSE: Clear with pink turbinates. THROAT: No erythema or exudates. NECK: No masses, no JVD, no thyroid enlargement, no adenopathy. CHEST: No chest wall deformity. Symmetrical expansion. LUNGS: Equal air entry with no crackles, wheeze, rhonchi or dullness. CVS: Regular rate and rhythm, normal S1 and S2, no gallops, no murmurs, no rubs ABDOMEN: Soft, nontender. No hepatosplenomegaly, normal bowel sounds, no guarding or rigidity. EXTREMITIES: No clubbing, mild pretibial edema, no cyanosis, 2+ pulses and upper and lower extremities. MUSCULOSKELETAL: Muscle strength and tone normal. SPINE: No scoliosis or deformity SKIN: No rashes CENTRAL NERVOUS SYSTEM: Alert and oriented -3. No focal deficits, tone is normal in all 4 extremities. PSYCHIATRIC: Alert and oriented -3. Appropriate affect. Intact judgment and insight. Results - Laboratory Findings CBC and BMP: 10/05/20 16:10/05/20 16: ABG WBC 18.4 k/uL (3.8-10.6) H 10/05/20 16: RBC 4.13 m/uL (4.30-5.90) L 10/05/20 16: Hgb 8.8 gm/dL (13.0-17.5) L 10/05/20 16: Hct 29.6 % (39.0-53.0) L 10/05/20 16: MCV 71.7 fL (80.0-100.0) L 10/05/20 16: MCH 21.2 pg (25.0-35.0) L 10/05/20 16: MCHC 29.6 g/dL (31.0-37.0) L 10/05/20 16: RDW 20.0 % (11.5-15.5) H 10/05/20 16: Plt Count 279 k/uL (150-450) D 10/05/20 16: MPV 8.0 10/05/20 16: Neutrophils % 87 % 10/05/20 16: Lymphocytes % 6 % 10/05/20 16: Monocytes % 5 % 10/05/20 16:27 Eosinophils % 1 % 10/05/20 16: Basophils % 0 % 10/05/20 16: Neutrophils # 16.0 k/uL (1.3-7.7) H 10/05/20 16:27 Lymphocytes # 1.1 k/uL (1.0-4.8) 10/05/20 16: Monocytes # 0.9 k/uL (0-1.0) 10/05/20 16: Eosinophils # 0.2 k/uL (0-0.7) 10/05/20 16: Basophils # 0.1 k/uL (0-0.2) 10/05/20 16:27 Hypochromasia Marked 10/05/20 16:27 Poikilocytosis Moderate 10/05/20 16: Anisocytosis Moderate 10/05/20 16:27 Microcytosis Marked 10/05/20 16:27 PT 12.0 sec (9.0-12.0) 10/05/20 16: INR 1.1 (<1.2) 10/05/20 16: APTT 24.7 sec (22.0-30.0) 10/05/20 16:27 Sodium 133 mmol/L (137-145) L 10/05/20 16: Potassium 5.3 mmol/L (3.5-5.1) H 10/05/20 16: Chloride 96 mmol/L (98-107) L 10/05/20 16: Carbon Dioxide 33 mmol/L (22-30) H 10/05/20 16:27 Anion Gap 4 mmol/L 10/05/20 16:27 BUN 11 mg/dL (9-20) 10/05/20 16:27 Creatinine 0.86 mg/dL (0.66-1.25) 10/05/20 16:27 Est GFR (CKD-EPI)AfAm >90 (>60 ml/min/1.73 sqM) 10/05/20 16:27 Est GFR (CKD-EPI)NonAf >90 (>60 ml/min/1.73 sqM) 10/05/20 16: Glucose 95 mg/dL (74-99) 10/05/20 16: Plasma Lactic Acid Suresh 0.9 mmol/L (0.7-2.0) 10/05/20 16: Calcium 8.0 mg/dL (8.4-10.2) L 10/05/20 16: Total Bilirubin 0.7 mg/dL (0.2-1.3) 10/05/20 16: AST 25 U/L (17-59) 10/05/20 16: ALT 8 U/L (4-49) 10/05/20 16: Alkaline Phosphatase 83 U/L (38-126) 10/05/20 16: Total Protein 6.7 g/dL (6.3-8.2) 10/05/20 16: Albumin 3.0 g/dL (3.5-5.0) L 10/05/20 16: Urine Color Yellow 10/05/20 16: Urine Appearance Clear (Clear) 10/05/20 16: Urine pH 7.5 (5.0-8.0) 10/05/20 16: Ur Specific Ralston 1.003 (1.001-1.035) 10/05/20 16: Urine Protein Negative (Negative) 10/05/20 16: Urine Glucose (UA) Negative (Negative) 10/05/20 16: Urine Ketones Negative (Negative) 10/05/20 16: Urine Blood Negative (Negative) 10/05/20 16: Urine Nitrite Negative (Negative) 10/05/20 16: Urine Bilirubin Negative (Negative) 10/05/20 16: Urine Urobilinogen 2.0 mg/dL (<2.0) 10/05/20 16: Ur Leukocyte Esterase Negative (Negative) 10/05/20 16: Coronavirus (PCR) Not Detected (Not Detectd) 10/05/20 16:27 Influenza Type A RNA Not Detected (Not Detectd) 10/05/20 16: Influenza Type B (PCR) Not Detected (Not Detectd) 10/05/20 16: PT/INR, D-dimer PT 12.0 sec (9.0-12.0) 10/05/20 16:27 INR 1.1 (<1.2) 10/05/20 16:27 Abnormal lab findings: Abnormal Labs 10/05/20 10/05/20 16:27 16:27 WBC 18.4 H RBC 4.13 L Hgb 8.8 L Hct 29.6 L MCV 71.7 L MCH 21.2 L MCHC 29.6 L RDW 20.0 H Neutrophils # 16.0 H Sodium 133 L Potassium 5.3 H Chloride 96 L Carbon Dioxide 33 H Calcium 8.0 L Albumin 3.0 L Assessment and Plan Plan: #1. Acute hypoxic respiratory failure related to suspected aspiration pneumonia, and COVID-19 was ruled out by multiple testing including testing that was done during this current admission. The chest x-ray showing volume loss on the right and chronic infiltrate. The chest x-ray findings and essentially improved compared to his last evaluation. The patient is currently on oxygen at 5 L whereas his pulse ox was 74% on room air oxygen. On 5 L, he was able to, but above 90%. No reported aspiration. Most recent sputum analysis from 2020 showed Klebsiella pneumoniae that was an ESBL producing organism.. The CAT scan of the chest that was done during his last admission on 09/27/2020 showed i mproving lung consolidation with some ongoing groundglass opacities in the lung bases and there was some increased noted erythema in the lung including the right lower lobe and the left apex which obviously raised the consideration for metastatic disease. I think the findings were essentially infectious in #2. Previous history of aspiration pneumonia #3. History of esophageal stricture, history of esophageal dilatation #4. Chronic anemia, unspecified #5. Morbid obesity, status post gastric sleeve in December 2019 #6. Paroxysmal A. fib, currently sinus mechanism, not on any chronic antic oagulation #7. History of CVA #8. Hypertension #9. History of back surgery and chronic back pain #10. Diabetes mellitus type 2 #11. Former nicotine dependence #12. His lower extremity edema, we'll start him on IV Lasix. Plan: Recheck a pro-calcitonin level knowing that this level was elevated during his last admission Put the patient on IV meropenem and discontinue the Zosyn and the Flagyl, it's possible that the patient was on receiving suboptimal treatment knowing that he was cultured and found to have a ESBL producing Klebsiella. He is currently coming in for readmission for worsening shortness of breath. Recheck sputum samples Wean down the FiO2 to maintain a saturation above 90% He has noted some increased swelling in lower extremities and the patient will be given IV Lasix Continue Lovenox for DVT prophylaxis We'll continue to follow.
[2020-10-06] MEDS: FUROSEMIDE 10 MG/ML 4 ML VIAL IV SCH ×2 (15:28→21:07)
--- NOTE | 2020-10-06 19:29 | P.HPIM ---
History of Present Illness H&P Date: 10/06/20 Chief Complaint: Short of breath History of presenting complaint: This is a very pleasant 55-year-old patient of Dr. Alexandrea Ang. stable medical conditions include hypertension, , gout, chronic bilateral hip pain, peripheral neuropathy. Atrial fibrillation, gastric sleeve [place] [address] Zarate. Jun 2018 had lysis of adhesions, laparoscopic reduction and repair o f incarcerated paraesophageal hiatal hernia with a mesh and takedown of a gastric-gastric fistula by Dr. Dumont. baseline - walk slowly because of peripheral neuropathy. In August 2018 patient had EGD done that showed severe erosive esophagitis with esophageal ulcer. readmitted July 05 2019 underwent balloon dilatation of 10-7 mm done. admitted July 22 and underwent EGD by Dr. Carbajal. Found-severe esophagitis and distal esophageal obstruction. A 10 mm dilatation was carried out. Retained food was extracted. Found to have possible aspiration pneumonia bilateral, treat with IV Zosyn-discharge. Dr. Carbajal discharged on Augmentin on July 26. On December 11 and I&D of the right scrotal abscess. - Shobha's gangrene. In December 2019- small bowel obstruction and recurrent hypoglycemia and was then transferred to [facility]. Patient recently the hospital from September 26 through September 29 with aspiration pneumonia. Was treated with IV Zosyn and discharge Augmentin. Patient and discharge was doing well. With a pulse ox of 92%. Eating well. Was seen by Dr. Milligan from pulmonary. Patient did well at home for 2 days. This patient progressively started getting increasing shortness of breath. Cough. Pulse ox was decreasing. Doesn't a fever and chills. As respiratory symptoms progressed while decided been given. Patient appetite has been good. Patient hasn't noted fever and he underwent arrival here of 102.4. Started on IV meropenem. Review of systems: GEN.: Febrile weak and tired EYES: None HEENT: None NECK: None RESPIRATORY: As above CARDIOVASCULAR: None GASTROINTESTINAL: Reflux GENITOURINARY: None MUSCULOSKELETAL: Some pains LYMPHATICS: None HEMATOLOGICAL: None PSYCHIATRY: None NEUROLOGICAL: Does use a walker Past medical history to include: Hypertension, gout, peripheral neuropathy, atrial fibrillation, gastric sleeve in 2013, gastric-gastric fistula repair, severe esophagitis, esophageal stenosis dilated, Social history: Smoke one half a pack a day for about 38 years-stopped 2017. . No alcohol. Physical examination: VITAL SIGNS: 91, 20, 120/66, 88% on room air-upon presentation GENERAL: BMI 32.9, laying in bed, not in distress EYES: Pupils equal. Conjunctiva normal. HEENT: External appearance of nose and ears normal, oral cavity grossly normal. NECK: JVD unable to assess; masses not palpable. HEART: First and second heart sounds are normal; no edema. LUNGS: Respiratory rate increased, some coarse crackles in the bases ABDOMEN: Soft, nontender, liver spleen not palpable, no masses palpable. Left abdominal wall has a pain pump PSYCH: Alert and oriented x3; mood and affect anxious NEUROLOGICAL: Cranial nerves grossly intact; no facial asymmetry, power and sensation grossly intact. LYMPHATICS: No lymph nodes palpable in the axilla and neck INVESTIGATIONS, reviewed in the clinical context: Date 0.8 platelets with 79 potassium 5.3 sodium 133 creatinine 0.86 proBNP 331 UA negative Coronavirus [PCR, influenza type A, type B: Not detected Assessment and plan: -Bilateral pneumonia suspected gram-negative organism IV cefepime -Sepsis from pneumonia IV fluids -Acute hypoxic respiratory failure due to pneumonitis Supplement oxygen - COPD in a ex-smoker Continue with DuoNeb -History of recurrent esophageal stricture with repeat dilatation -History of paraesophageal repair and history of sleeve gastrectomy -Essential hypertension Continue with Lopressor -Primary osteoarthritis Use Percocet when necessary -Chronic Gout Continue with allopurinol -Idiopathic peripheral neuropathy Continue with Lyrica -Chronic back pain with the pain pump -Anemia of chronic disease -Paroxysmal atrial fibrillation, currently in sinus rhythm continue with beta raf. -Chronic insomnia Continue with Ambien -Chronic GERD Continue with omeprazole Care was discussed with the patient. Home medications resumed. Placed on IV cefepime. Pulmonary consulted. Given the complexity and severity of patient's condition expect the patient to be in the hospital at least for 2 overnights Past Medical History Past Medical History: Atrial Fibrillation, COPD, CVA/TIA, GERD/Reflux, Hyperlipidemia, Hypertension, Osteoarthritis (OA), Pneumonia, Seizure Disorder, Sleep Apnea/CPAP/BIPAP Additional Past Medical History / Comment(s): hiatal hernia, gout, neuropathy marta legs and feet- states feet are numb, some numbness in legs & tingling in hands., chronic back pain., constipation., dysphagia-hx of EGD with dilation, chronic esophogeal stenosis. Last October 2019, states frequent pneumonia & not sure why, recent admission for History of Any Multi-Drug Resistant Organisms: CRE, ESBL Date of last positivie culture/infection: 09/28/20 ESBL Klebsiella MDRO Source:: Sputum Past Surgical History: Back Surgery, Bariatric Surgery, Bowel Resection, Heart Catheterization, Joint Replacement, Orthopedic Surgery Additional Past Surgical History / Comment(s): PAIN PUMP IMPLANTED 07/17/18, HX GASTRIC SLEEVE AND . BILATERAL KNEE arthroscopy, BILATERAL HIP replacement, LEFT SHOULDER replacement, LEFT ACHILES TENDON SX., RIGHT BIG TOE took piece out, echocardiolgram, spinal fusion, EGD with dilation., STATES HX OF PNEUMONIA WITH LUNG SURGERY., REPAIR OF HIATAL HERNIA & LYSIS OF ADHESIONS Past Anesthesia/Blood Transfusion Reactions: No Reported Reaction Past Psychological History: Anxiety, Depression Additional Psychological History / Comment(s): Pt resides with his spouse, daughter and in laws. He uses a walker to ambulate. He does not drive, his spouse takes him to appts. Smoking Status: Former smoker Past Alcohol Use History: None Reported Additional Past Alcohol Use History / Comment(s): Pt started smoking in 1985 and quit in 2017. Past Drug Use History: None Reported - Past Family History Father Family Medical History: Cancer Additional Family Medical History / Comment(s): lung Mother Family Medical History: Coronary Artery Disease (CAD) Additional Family Medical History / Comment(s): . Medications and Allergies Home Medications Medication Instructions Recorded Confirmed Type Allopurinol [Zyloprim] 300 mg PO DAILY 06/04/16 10/05/20 History Escitalopram [Lexapro] 10 mg PO DAILY 06/04/16 10/05/20 History Omeprazole 40 mg PO BID #60 cap 07/06/19 10/05/20 Rx Cyclobenzaprine [Flexeril] 10 mg PO BID PRN #0 03/27/20 10/05/20 Rx Pregabalin [Lyrica] 300 mg PO BID #6 cap 03/27/20 10/05/20 Rx Metoprolol Tartrate [Lopressor] 12.5 mg PO BID 04/28/20 10/05/20 History oxyCODONE HCL/ACETAMINOPHEN 1 tab PO QID PRN 08/31/20 10/05/20 History [Percocet 5-325 mg] Zolpidem [Ambien] 5 mg PO HS #30 tab 09/02/20 10/05/20 Rx Ergocalciferol [Vitamin D2 (1250 1,250 mcg PO MO 09/26/20 10/05/20 History Mcg = 74589 Iu)] polyethylene glycoL 3350 [Miralax] 17 gm PO DAILY 09/26/20 10/05/20 History Amoxicillin/Potassium Clav 1 tab PO Q12HR #6 tab 09/29/20 10/05/20 Rx [Augmentin 875-125 Tablet] Allergies Allergy/AdvReac Type Severity Reaction Status Date / Time No Known Allergies Allergy Verified 10/05/20 17:00 Physical Exam Vitals: Vital Signs Temp Pulse Pulse Resp BP BP Pulse Ox 10/06/20 10:15 98.5 F 71 20 119/81 98 10/06/20 08:00 75 15 10/06/20 01:11 98.0 F 75 15 119/69 94 L 10/05/20 22:48 16 10/05/20 22:28 97.9 F 81 16 102/66 95 10/05/20 20:23 99.0 F 75 18 108/72 93 L 10/05/20 18:03 101.4 F H 78 18 107/65 98 10/05/20 17:41 18 10/05/20 16:16 102.4 F H 10/05/20 15:55 99.4 F 91 18 120/66 88 L Intake and Output 10/05/20 10/06/20 10/06/20 22:59 06:59 14:59 Intake Total 200 Output Total 425 Balance -425 200 Intake: Oral 200 Output: Urine 425 Other: Voiding Method Toilet Toilet Urinal Urinal Weight 127.006 kg Results CBC & Chem 7: 10/05/20 16:27 10/05/20 16:27 Labs: Abnormal Lab Results - Last 24 Hours (Table) 10/05/20 10/05/20 Range/Units 16:27 16:27 WBC 18.4 H (3.8-10.6) k/uL RBC 4.13 L (4.30-5.90) m/uL Hgb 8.8 L (13.0-17.5) gm/dL Hct 29.6 L (39.0-53.0) % MCV 71.7 L (80.0-100.0) fL MCH 21.2 L (25.0-35.0) pg MCHC 29.6 L (31.0-37.0) g/dL RDW 20.0 H (11.5-15.5) % Neutrophils # 16.0 H (1.3-7.7) k/uL Sodium 133 L (137-145) mmol/L Potassium 5.3 H (3.5-5.1) mmol/L Chloride 96 L (98-107) mmol/L Carbon Dioxide 33 H (22-30) mmol/L Calcium 8.0 L (8.4-10.2) mg/dL Albumin 3.0 L (3.5-5.0) g/dL Thrombosis Risk Factor Assmnt - Choose All That Apply Any of the Below Risk Factors Present?: Yes Each Factor Represents 1 point: Age 41-60 years, Obesity (BMI >25) Other Risk Factors: No Other congenital or acquired thrombophilia - If yes, enter type in comment: No Thrombosis Risk Factor Assessment Total Risk Factor Score: 2 Thrombosis Risk Factor Assessment Level: Low Risk
[2020-10-06] MEDS ORDERED: AZITHROMYCIN 500 MG in SODIUM CHLORIDE 0.9% 250 ML IVPB SCH (21:00)
[2020-10-06] MEDS: ZOLPIDEM 5 MG TAB PO SCH (21:08)
[2020-10-06] MEDS: MEROPENEM 1 GM in SODIUM CHLORIDE 0.9% 100 ML IVPB SCH (21:08)
[2020-10-07] MEDS: PANTOPRAZOLE 40 MG TABLET PO SCH ×2 (08:25→20:06)
[2020-10-07] MEDS: METOPROLOL TARTRATE 12.5 MG TAB PO SCH ×2 (08:25→20:06)
[2020-10-07] MEDS: ESCITALOPRAM 10 MG TAB PO SCH (08:25)
[2020-10-07] MEDS: allopurinoL 300 MG TAB PO SCH (08:25)
[2020-10-07] MEDS: polyethylene glycoL 3350 17 GM POWD.PACK PO SCH (08:25)
[2020-10-07] MEDS: PREGABALIN 100 MG CAP PO SCH ×2 (08:25→20:06)
[2020-10-07] MEDS: FUROSEMIDE 10 MG/ML 4 ML VIAL IV SCH ×2 (08:26→20:06)
[2020-10-07] MEDS: MEROPENEM 1 GM in SODIUM CHLORIDE 0.9% 100 ML IVPB SCH ×2 (08:26→20:06)
[2020-10-07] MEDS: oxyCODONE-APAP 5-325MG 1 EACH TAB PO PRN ×2 (08:31→20:09)
[2020-10-07 11:30] LABS: African American GFR (CKD) 86.5 (60.0-200.0); Albumin 3.3 g/dL (3.80-4.90); Albumin/Globulin Ratio 0.92 (1.60-3.17); Anion Gap 9.2 mmol/L (4.00-12.00); BUN/Creat Ratio 10.91 Ratio (12.00-20.00); Calcium 8.4 mg/dL (8.7-10.3); Carbon Dioxide 33.8 mmol/L (21.6-31.8); Globulin 3.6 g/dL (1.6-3.3); Non-African American GFR(CKD) 74.6 (60.0-200.0); Potassium 4.4 mmol/L (3.5-5.5); Total Bilirubin 0.5 mg/dL (0.2-1.2); Total Protein 6.9 g/dL (6.2-8.2)
[2020-10-07 11:59] LABS: Anisocytosis (M) 2+; Basophils # (A) 0.01 X 10*3/uL (0.00-0.10); Basophils % (A) 0.1 %; Eosinophils # (A) 0.26 X 10*3/uL (0.04-0.35); Eosinophils % (A) 2.6 %; HCT 32.2 % (39.6-50.0); HGB 8.5 g/dL (13.0-17.0); Hypochromasia (M) 2+; Lymphocytes # (A) 1.46 X 10*3/uL (0.90-5.00); Lymphocytes % (A) 14.5 %; MCH 19.6 pg (27.0-32.0); MCHC 26.4 g/dL (32.0-37.0); MCV 74.4 fL (80.0-97.0); Microcytosis (M) 2+; Monocytes # (A) 0.74 X 10*3/uL (0.20-1.00); Monocytes % (A) 7.4 %; Neutrophils # (A) 7.51 X 10*3/uL (1.80-7.70); Neutrophils % (A) 74.8 %; Platelet Count 300 X 10*3/uL (140-440); RBC 4.33 X 10*6/uL (4.40-5.60); Target Cells 2+; WBC 10.04 X 10*3/uL (4.50-10.00)
--- NOTE | 2020-10-07 13:58 | P.PN ---
Subjective Progress Note Date: 10/07/20 Principal diagnosis: ESBL gram-negative pneumonia, possibly aspiration related 55-year-old male patient with known history of aspiration pneumonia knowing that the patient has history of esophageal stenosis/fracture and the patient has had previous history of esophageal dilatation. Last dilatation was done approximately 2-3 months ago. The patient was hospitalized recently on 09/26/2020 with pneumonia and her COVID-19 testing was at that time negative. He has other comorbidities including morbid obesity with a previous history of gastric sleeve, history of atrial fibrillation, CVA, hypertension, chronic back pain, diabetes mellitus type 2. She was discharged home on 10/06/2020 and the patient was treated for bilateral aspiration pneumonia with a combination of antibiotics including IV Zosyn and the patient was discharged on oxygen and PRIMAXIN. The patient came in again to the hospital on 10/05/2020 with shortness of breath. He tested negative for COVID-19. He was having difficulties in breathing in the emergency. Denies having any chest pain. No abdominal pain. No nausea. No vomiting. No emesis. He is white cell count was 18.4 with a hemoglobin of 8.8, sodium was 133 with a potassium of 5.3 and a chloride of 96, creatinine is at 0.8. Coagulation profile was normal. The patient had another COVID-19 testing came back negative. Influenza A and B was also negative. The chest x-ray showing chronic infiltrate involving the right lung and the right lung is essentially smaller compared to the left indicating underlying volume loss. The chest x-ray showed multifocal airspace disease right more than left. The patient was restarted on antibiotics and the patient is currently on IV Zosyn. He is also on Flagyl. He is on oxygen at 5 L. His most recent sputum from 09/28/2020 showed Klebsiella pneumoniae (ESBL) and Deidre. On 10/07/2000 patient seen in follow-up on medical floor, he is currently on 4 L of oxygen pulse ox is 97%, he is breathing comfortably, FiO2 is down to 3 L, will continue weaning, he is diuresing, he is in negative fluid balance, lower extremity edema is improving, he is down 5 kg in the last 24 hours, yesterday we switched his IV antibiotics to meropenem for evidence of ESBL Klebsiella pneumonia in his previous sputum culture from 09/28/2020. Vital signs have been stable overnight, no fever or chills, no altered mentation, patient states he's been tolerating oral diet well, no episodes of aspiration reported. His labs have been reviewed showing white blood cell count trending down down to 10.04, hemoglobin is 8.5, his electrolytes and renal profile are unremarkable, pro- calcitonin level is 0.35. Urinalysis was negative, patient tested negative for coronavirus and influenza Objective - Vital Signs Vital signs: Vital Signs Temp 98.1 F 10/07/20 07:19 Pulse 70 10/07/20 07:19 Resp 18 10/07/20 07:19 BP 112/72 10/07/20 07:19 Pulse Ox 97 10/07/20 07:19 Intake & Output 10/06/20 10/07/20 10/07/20 18:59 06:59 18:59 Intake Total 200 Balance 200 Weight 122.5 kg Intake: Oral 200 Other: Voiding Method Toilet Toilet Urinal Urinal - Exam GENERAL EXAM: Alert, very pleasant, 55-year-old -Thai male, creatinine 4 L oxygen with pulse ox of 97% comfortable in no apparent distress. HEAD: Normocephalic/atraumatic. EYES: Normal reaction of pupils, equal size. Conjunctiva pink, sclera white. NOSE: Clear with pink turbinates. THROAT: No erythema or exudates. NECK: No masses, no JVD, no thyroid enlargement, no adenopathy. CHEST: No chest wall deformity. Symmetrical expansion. LUNGS: Equal air entry with basilar crackles CVS: Regular rate and rhythm, normal S1 and S2, no gallops, no murmurs, no rubs ABDOMEN: Soft, nontender. No hepatosplenomegaly, normal bowel sounds, no guarding or rigidity. EXTREMITIES: No clubbing, plus lower extremity pitting edema, no cyanosis, 2+ pulses and upper and lower extremities. MUSCULOSKELETAL: Muscle strength and tone normal. SPINE: No scoliosis or deformity SKIN: No rashes CENTRAL NERVOUS SYSTEM: Alert and oriented -3. No focal deficits, tone is normal in all 4 extremities. PSYCHIATRIC: Alert and oriented -3. Appropriate affect. Intact judgment and insight. - Labs CBC & Chem 7: 10/07/20 08:19 10/07/20 08:19 Labs: Abnormal Lab Results - Last 24 Hours (Table) 10/06/20 10/07/20 10/07/20 Range/Units 14:50 08:19 08:19 WBC 10.04 H (4.50-10.00) X 10*3/uL RBC 4.33 L (4.40-5.60) X 10*6/uL Hgb 8.5 L (13.0-17.0) g/dL Hct 32.2 L (39.6-50.0) % MCV 74.4 L (80.0-97.0) fL MCH 19.6 L (27.0-32.0) pg MCHC 26.4 L (32.0-37.0) g/dL RDW 23.0 H (11.5-14.5) % Immature Gran # 0.06 H (0.00-0.04) X 10*3/uL Carbon Dioxide 33.8 H (21.6-31.8) mmol/L BUN/Creatinine Ratio 10.91 L (12.00-20.00) Ratio Glucose 115 H (70-110) mg/dL Calcium 8.4 L (8.7-10.3) mg/dL Albumin 3.30 L (3.80-4.90) g/dL Globulin 3.6 H (1.6-3.3) g/dL Albumin/Globulin Ratio 0.92 L (1.60-3.17) g/dL Procalcitonin 0.35 H (0.02-0.09) ng/mL Microbiology - Last 24 Hours (Table) 10/05/20 18:18 Blood Culture - Preliminary Blood No Growth after 24 hours Assessment and Plan Plan: Assessment: #1. Acute hypoxic respiratory failure related to suspected aspiration pneumonia, and COVID-19 was ruled out by multiple testing including testing that was done during this current admission. The chest x-ray showing volume loss on the right and chronic infiltrate. The chest x-ray findings and essentially improved compared to his last evaluation. The patient is currently on oxygen at 5 L whereas his pulse ox was 74% on room air oxygen. On 5 L, he was able to, but above 90%. No reported aspiration. Most recent sputum analysis from 2020 showed Klebsiella pneumoniae that was an ESBL producing organism.. The CAT scan of the chest that was done during his last admission on 09/27/2020 showed improving lung consolidation with some ongoing groundglass opacities in the lung bases and there was some increased noted erythema in the lung including the right lower lobe and the left apex which obviously raised the consideration for metastatic disease. I think the findings were essentially infectious in #2. Previous history of aspiration pneumonia #3. History of esophageal stricture, history of esophageal dilatation #4. Chronic anemia, unspecified #5. Morbid obesity, status post gastric sleeve in December 2019 #6. Paroxysmal A. fib, currently sinus mechanism, not on any chronic anticoagulation #7. History of CVA #8. Hypertension #9. History of back surgery and chronic back pain #10. Diabetes mellitus type 2 #11. Former nicotine dependence #12. His lower extremity edema, we'll start him on IV Lasix. Plan: Continue IV Lasix Follow-up electrolytes and renal profile in the morning Follow-up chest x-ray Continue antibiotics Accurate intake and output and daily weight Wean FiO2 to keep O2 sat she she and at around 90% Continue aspiration precautions We'll continue to follow I performed a history & physical examination of the patient and discussed their management with my nurse practitioner, Shea Terry. I reviewed the nurse practitioner's note and agree with the documented findings and plan of care. Lung sounds are positive for bilateral crackles. The findings and the impression was discussed with the patient. I attest to the documentation by the nurse practitioner. Time with Patient: Less than 30
[2020-10-07] MEDS: ZOLPIDEM 5 MG TAB PO SCH (20:06)
--- NOTE | 2020-10-07 22:34 | P.PN ---
Progress Note - Text Progress Note Date: 10/07/20 Chief Complaint: Short of breath History of presenting complaint: This is a very pleasant 55-year-old patient of Dr. Alexandrea Ang. stable medical conditions include hypertension, , gout, chronic bilateral hip pain, peripheral neuropathy. Atrial fibrillation, gastric sleeve [place] [address] Zarate. 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 Dumont. baseline - walk slowly because of peripheral neuropathy. In August 2018 patient had EGD done that showed severe erosive esophagitis with esophageal ulcer. readmitted July 05 2019 underwent balloon dilatation of 10-7 mm done. admitted July 22 and underwent EGD by Dr. Carbajal. Found-severe esophagitis and distal esophageal obstruction. A 10 mm dilatation was carried out. Retained food was extracted. Found to have possible aspiration pneumonia bilateral, treat with IV Zosyn-discharge. Dr. Carbajal discharged on Augmentin on July 26. On December 11 and I&D of the right scrotal abscess. - Shobha's gangrene. In December 2019- small bowel obstruction and recurrent hypoglycemia and was then transferred to [facility]. Patient recently the hospital from September 26 through September 29 with aspiration pneumonia. Was treated with IV Zosyn and discharge Augmentin. Patient and discharge was doing well. With a pulse ox of 92%. Eating well. Was seen by Dr. Milligan from pulmonary. Patient did well at home for 2 days. This patient progressively started getting increasing shortness of breath. Cough. Pulse ox was decreasing. Doesn't a fever and chills. As respiratory symptoms progressed while decided been given. Patient appetite has been good. Patient noted fever and he underwent arrival here of 102.4. Started on IV meropenem. Admitted with pneumonia, acute hypoxic respiratory failure. On IV meropenem. Oxygen. Today: Sitting up in bed. Breathing better. Slight cough. Oral intake fair. Review of systems: Was done for constitutional, cardiovascular, GI, pulmonary. relevant finding as above Active Medications Allopurinol (Allopurinol 300 Mg Tab) 300 mg PO DAILY MATT Last Admin: 10/07/20 08:25 Dose: 300 mg Documented by: Cyclobenzaprine HCl (Cyclobenzaprine 10 Mg Tab) 10 mg PO BID PRN PRN Reason: Spasms Ergocalciferol (Ergocalciferol 1,250 Mcg (50,000 Iu) Capsule) 1,250 mcg PO MO [facility] Escitalopram Oxalate (Escitalopram 10 Mg Tab) 10 mg PO DAILY [facility] Last Admin: 10/07/20 08:25 Dose: 10 mg Documented by: Furosemide (Furosemide 10 Mg/Ml 4 Ml Vial) 40 mg IV Q12HR [facility] Last Admin: 10/07/20 20:06 Dose: 40 mg Documented by: Meropenem 1 gm/ Sodium (Chloride) 100 mls @ 33.3 mls/hr IVPB Q12HR [facility]; Protocol Last Admin: 10/07/20 20:06 Dose: 33.3 mls/hr Documented by: Metoprolol Tartrate (Metoprolol Tartrate 12.5 Mg Tab) 12.5 mg PO BID [facility] Last Admin: 10/07/20 20:06 Dose: Not Given Documented by: Miscellaneous Information (Pneumonia Protocol Utilized 1 Each Misc) 1 each PO ONCE PRN PRN Reason: Per Protocol Oxycodone/Acetaminophen (Oxycodone-Apap 5-325mg 1 Each Tab) 1 each PO QID PRN PRN Reason: Pain Last Admin: 10/07/20 20:09 Dose: 1 each Documented by: Pantoprazole Sodium (Pantoprazole 40 Mg Tablet) 40 mg PO BID [facility] Last Admin: 10/07/20 20:06 Dose: 40 mg Documented by: Polyethylene Glycol (Polyethylene Glycol 3350 17 Gm Powd.Pack) 17 gm PO DAILY [facility] Last Admin: 10/07/20 08:25 Dose: 17 gm Documented by: Pregabalin (Pregabalin 100 Mg Cap) 300 mg PO BID [facility] Last Admin: 10/07/20 20:06 Dose: 300 mg Documented by: Zolpidem Tartrate (Zolpidem 5 Mg Tab) 5 mg PO HS [facility] Last Admin: 10/07/20 20:06 Dose: 5 mg Documented by: Past medical history to include: Hypertension, gout, peripheral neuropathy, atrial fibrillation, gastric sleeve in 2013, gastric-gastric fistula repair, severe esophagitis, esophageal stenosis dilated, Social history: Smoke one half a pack a day for about 38 years-stopped 2018. . No alcohol. Physical examination: VITAL SIGNS: Afebrile, 71, 18, 89 x 53, 90% on room air GENERAL: BMI 32.9, laying in bed, more comfortable EYES: Pupils equal. Conjunctiva normal. HEENT: External appearance of nose and ears normal, oral cavity grossly normal. NECK: JVD unable to assess; masses not palpable. HEART: First and second heart sounds are normal; no edema. LUNGS: Respiratory rate increased, minimal crackles ABDOMEN: Soft, nontender, liver spleen not palpable, no masses palpable. Left abdominal wall has a pain pump PSYCH: Alert and oriented x3; mood and affect anxious INVESTIGATIONS, reviewed in the clinical context: October 07: WBC 10.0 hemoglobin 8.5 potassium 4.4 creatinine 1.1 Pro-calcitonin 0.35 Date 0.8 platelets with 79 potassium 5.3 sodium 133 creatinine 0.86 proBNP 331 UA negative Coronavirus [PCR, influenza type A, type B: Not detected Assessment and plan: -Bilateral pneumonia suspected gram-negative organism-improving IV cefepime -Sepsis from pneumonia-improving IV fluids -Acute hypoxic respiratory failure due to pneumonitis-improving Supplement oxygen - COPD in a ex-smoker Continue with DuoNeb -History of recurrent esophageal stricture with repeat dilatation -History of paraesophageal repair and history of sleeve gastrectomy -Essential hypertension Continue with Lopressor -Primary osteoarthritis Use Percocet when necessary -Chronic Gout Continue with allopurinol -Idiopathic peripheral neuropathy Continue with Lyrica -Chronic back pain with the pain pump -Anemia of chronic disease -Paroxysmal atrial fibrillation, currently in sinus rhythm continue with beta raf. -Chronic insomnia Continue with Ambien -Chronic GERD Continue with omeprazole Continue IV cefepime. Improving. Continue other medications.
[2020-10-08] MEDS: PANTOPRAZOLE 40 MG TABLET PO SCH ×2 (08:43→21:36)
[2020-10-08] MEDS: PREGABALIN 100 MG CAP PO SCH ×2 (08:43→21:35)
[2020-10-08] MEDS: oxyCODONE-APAP 5-325MG 1 EACH TAB PO PRN ×2 (08:43→18:01)
[2020-10-08] MEDS: polyethylene glycoL 3350 17 GM POWD.PACK PO SCH (08:43)
[2020-10-08] MEDS: METOPROLOL TARTRATE 12.5 MG TAB PO SCH ×2 (08:43→21:36)
[2020-10-08] MEDS: FUROSEMIDE 10 MG/ML 4 ML VIAL IV SCH ×2 (08:43→21:35)
[2020-10-08] MEDS: allopurinoL 300 MG TAB PO SCH (08:43)
[2020-10-08] MEDS: ESCITALOPRAM 10 MG TAB PO SCH (08:43)
[2020-10-08] MEDS: MEROPENEM 1 GM in SODIUM CHLORIDE 0.9% 100 ML IVPB SCH ×2 (09:41→21:36)
--- NOTE | 2020-10-08 13:09 | P.PN ---
Subjective Progress Note Date: 10/08/20 Principal diagnosis: ESBL gram-negative pneumonia, possibly aspiration related 55-year-old male patient with known history of aspiration pneumonia knowing that the patient has history of esophageal stenosis/fracture and the patient has had previous history of esophageal dilatation. Last dilatation was done approximately 2-3 months ago. The patient was hospitalized recently on 09/26/2020 with pneumonia and her COVID-19 testing was at that time negative. He has other comorbidities including morbid obesity with a previous history of gastric sleeve, history of atrial fibrillation, CVA, hypertension, chronic back pain, diabetes mellitus type 2. She was discharged home on 10/06/2020 and the patient was treated for bilateral aspiration pneumonia with a combination of antibiotics including IV Zosyn and the patient was discharged on oxygen and PRIMAXIN. The patient came in again to the hospital on 10/05/2020 with shortness of breath. He tested negative for COVID-19. He was having difficulties in breathing in the emergency. Denies having any chest pain. No abdominal pain. No nausea. No vomiting. No emesis. He is white cell count was 18.4 with a hemoglobin of 8.8, sodium was 133 with a potassium of 5.3 and a chloride of 96, creatinine is at 0.8. Coagulation profile was normal. The patient had another COVID-19 testing came back negative. Influenza A and B was also negative. The chest x-ray showing chronic infiltrate involving the right lung and the right lung is essentially smaller compared to the left indicating underlying volume loss. The chest x-ray showed multifocal airspace disease right more than left. The patient was restarted on antibiotics and the patient is currently on IV Zosyn. He is also on Flagyl. He is on oxygen at 5 L. His most recent sputum from 09/28/2020 showed Klebsiella pneumoniae (ESBL) and Deidre. On 10/07/2000 patient seen in follow-up on medical floor, he is currently on 4 L of oxygen pulse ox is 97%, he is breathing comfortably, FiO2 is down to 3 L, will continue weaning, he is diuresing, he is in negative fluid balance, lower extremity edema is improving, he is down 5 kg in the last 24 hours, yesterday we switched his IV antibiotics to meropenem for evidence of ESBL Klebsiella pneumonia in his previous sputum culture from 09/28/2020. Vital signs have been stable overnight, no fever or chills, no altered mentation, patient states he's been tolerating oral diet well, no episodes of aspiration reported. His labs have been reviewed showing white blood cell count trending down down to 10.04, hemoglobin is 8.5, his electrolytes and renal profile are unremarkable, pro- calcitonin level is 0.35. Urinalysis was negative, patient tested negative for coronavirus and influenza On 10/08/2020 patient seen in follow-up on medical surgical floor, he was taken off the oxygen today, but his pulse ox went down to 83-86% although he does not feel short of breath, but he was placed back on oxygen at 2 L, oxygen is coming up to over 88 percent, he is breathing comfortably, no complaints of chest pain or continue phlegm production, no hemoptysis, he is receiving diuretics, however his lower extremity edema still remains although improved. he is in negative fluid balance, his weight is down to 122.5 kg from 127 kg. Which is in the form of meropenem for evidence of ESBL gram-negative pneumonia. No new Chest x-ray today, and his chest x-ray from 2 days ago showed multifocal airspace disease right greater than left. And in aeration of the left side. He diuretics in the form of Lasix at 40 mg twice daily continue, patient is on GI and DVT prophylaxis, patient had no acute events overnight, he is tolerating oral diet, no nausea vomiting or diarrhea. Objective - Vital Signs Vital signs: Vital Signs Temp 98.1 F 10/08/20 07:13 Pulse 76 10/08/20 07:13 Resp 18 10/08/20 07:13 BP 115/76 10/08/20 07:13 Pulse Ox 91 L 10/08/20 07:13 Intake & Output 10/07/20 10/08/20 10/08/20 18:59 06:59 18:59 Other: Voiding Method Toilet Urinal - Exam GENERAL EXAM: Alert, very pleasant, 55-year-old -[place]gian male, her pulse ox is 83%, and patient was placed back on supplemental oxygen at 2 L comfortable in no apparent distress. HEAD: Normocephalic/atraumatic. EYES: Normal reaction of pupils, equal size. Conjunctiva pink, sclera white. NOSE: Clear with pink turbinates. THROAT: No erythema or exudates. NECK: No masses, no JVD, no thyroid enlargement, no adenopathy. CHEST: No chest wall deformity. Symmetrical expansion. LUNGS: Equal air entry with basilar crackles CVS: Regular rate and rhythm, normal S1 and S2, no gallops, no murmurs, no rubs ABDOMEN: Soft, nontender. No hepatosplenomegaly, normal bowel sounds, no guarding or rigidity. EXTREMITIES: No clubbing, 2 plus lower extremity pitting edema, no cyanosis, 2+ pulses and upper and lower extremities. MUSCULOSKELETAL: Muscle strength and tone normal. SPINE: No scoliosis or deformity SKIN: No rashes CENTRAL NERVOUS SYSTEM: Alert and oriented -3. No focal deficits, tone is normal in all 4 extremities. PSYCHIATRIC: Alert and oriented -3. Appropriate affect. Intact judgment and insight. - Labs CBC & Chem 7: 10/07/20 08:19 10/07/20 08:19 Labs: Microbiology - Last 24 Hours (Table) 10/05/20 18:18 Blood Culture - Preliminary Blood No Growth after 48 hours Assessment and Plan Plan: Assessment: #1. Acute hypoxic respiratory failure related to suspected aspiration pneumonia, and COVID-19 was ruled out by multiple testing including testing that was done during this current admission. The chest x-ray showing volume loss on the right and chronic infiltrate. The chest x-ray findings and essentially improved compared to his last evaluation. The patient is currently on oxygen at 5 L whereas his pulse ox was 74% on room air oxygen. On 5 L, he was able to, but above 90%. No reported aspiration. Most recent sputum analysis from 2020 showed Klebsiella pneumoniae that was an ESBL producing organism.. The CAT scan of the chest that was done during his last admission on 09/27/2020 showed improving lung consolidation with some ongoing groundglass opacities in the lung bases and there was some increased noted erythema in the lung including the right lower lobe and the left apex which obviously raised the consideration for metastatic disease. I think the findings were essentially infectious in #2. Previous history of aspiration pneumonia #3. History of esophageal stricture, history of esophageal dilatation #4. Chronic anemia, unspecified #5. Morbid obesity, status post gastric sleeve in December 2019 #6. Paroxysmal A. fib, currently sinus mechanism, not on any chronic anticoagulation #7. History of CVA #8. Hypertension #9. History of back surgery and chronic back pain #10. Diabetes mellitus type 2 #11. Former nicotine dependence #12. His lower extremity edema, we'll start him on IV Lasix. Plan: Wean FiO2 to keep O2 sat she she and at around 90% Continue IV Lasix Follow-up electrolytes and renal profile in the morning Follow-up chest x-ray Continue antibiotics Accurate intake and output and daily weight Wean FiO2 to keep O2 sat she she and at around 90% Continue aspiration precautions We'll continue to follow I performed a history & physical examination of the patient and discussed their management with my nurse practitioner, Shea Terry. I reviewed the nurse practitioner's note and agree with the documented findings and plan of care. Lung sounds are positive for bilateral crackles. The findings and the impression was discussed with the patient. I attest to the documentation by the nurse practitioner. Time with Patient: Less than 30
[2020-10-08] MEDS: ZOLPIDEM 5 MG TAB PO SCH (21:36)
--- NOTE | 2020-10-08 21:58 | P.PN ---
Progress Note - Text Progress Note Date: 10/08/20 Chief Complaint: Short of breath History of presenting complaint: This is a very pleasant 55-year-old patient of Dr. Alexandrea Ang. stable medical conditions include hypertension, , gout, chronic bilateral hip pain, peripheral neuropathy. Atrial fibrillation, gastric [place] [address] Zarate. 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 Dumont. baseline - walk slowly because of peripheral neuropathy. In August 2018 patient had EGD done that showed severe erosive esophagitis with esophageal ulcer. readmitted July 05 2019 underwent balloon dilatation of 10-7 mm done. admitted July 22 and underwent EGD by Dr. Carbajal. Found-severe esophagitis and distal esophageal obstruction. A 10 mm dilatation was carried out. Retained food was extracted. Found to have possible aspiration pneumonia bilateral, treat with IV Zosyn-discharge. Dr. Carbajal discharged on Augmentin on July 26. On December 11 and I&D of the right scrotal abscess. - Shobha's gangrene. In December 2019- small bowel obstruction and recurrent hypoglycemia and was then transferred to [facility]. Patient recently the hospital from September 26 through September 29 with aspiration pneumonia. Was treated with IV Zosyn and discharge Augmentin. Patient and discharge was doing well. With a pulse ox of 92%. Eating well. Was seen by Dr. Milligan from pulmonary. Patient did well at home for 2 days. This patient progressively started getting increasing shortness of breath. Cough. Pulse ox was decreasing. Doesn't a fever and chills. As respiratory symptoms progressed while decided been given. Patient appetite has been good. Patient noted fever and he underwent arrival here of 102.4. Started on IV meropenem. Admitted with pneumonia, acute hypoxic respiratory failure. On IV meropenem. Oxygen. Today: Regarding red. Breathing much improved. On nasal cannula. Eating about 100% Review of systems: Was done for constitutional, cardiovascular, GI, pulmonary. relevant finding as above Active Medications Allopurinol (Allopurinol 300 Mg Tab) 300 mg PO DAILY MATT Last Admin: 10/08/20 08:43 Dose: 300 mg Documented by: Cyclobenzaprine HCl (Cyclobenzaprine 10 Mg Tab) 10 mg PO BID PRN PRN Reason: Spasms Ergocalciferol (Ergocalciferol 1,250 Mcg (50,000 Iu) Capsule) 1,250 mcg PO MO S CH Escitalopram Oxalate (Escitalopram 10 Mg Tab) 10 mg PO DAILY [facility] Last Admin: 10/08/20 08:43 Dose: 10 mg Documented by: Furosemide (Furosemide 10 Mg/Ml 4 Ml Vial) 40 mg IV Q12HR [facility] Last Admin: 10/08/20 21:35 Dose: 40 mg Documented by: Meropenem 1 gm/ Sodium (Chloride) 100 mls @ 33.3 mls/hr IVPB Q12HR [facility]; Protocol Last Admin: 10/08/20 21:36 Dose: 33.3 mls/hr Documented by: Metoprolol Tartrate (Metoprolol Tartrate 12.5 Mg Tab) 12.5 mg PO BID [facility] Last Admin: 10/08/20 21:36 Dose: 12.5 mg Documented by: Miscellaneous Information (Pneumonia Protocol Utilized 1 Each Misc) 1 each PO ONCE PRN PRN Reason: Per Protocol Oxycodone/Acetaminophen (Oxycodone-Apap 5-325mg 1 Each Tab) 1 each PO QID PRN PRN Reason: Pain Last Admin: 10/08/20 18:01 Dose: 1 each Documented by: Pantoprazole Sodium (Pantoprazole 40 Mg Tablet) 40 mg PO BID [facility] Last Admin: 10/08/20 21:36 Dose: 40 mg Documented by: Polyethylene Glycol (Polyethylene Glycol 3350 17 Gm Powd.Pack) 17 gm PO DAILY [facility] Last Admin: 10/08/20 08:43 Dose: 17 gm Documented by: Pregabalin (Pregabalin 100 Mg Cap) 300 mg PO BID [facility] Last Admin: 10/08/20 21:35 Dose: 300 mg Documented by: Zolpidem Tartrate (Zolpidem 5 Mg Tab) 5 mg PO HS [facility] Last Admin: 10/08/20 21:36 Dose: 5 mg Documented by: Past medical history to include: Hypertension, gout, peripheral neuropathy, atrial fibrillation, gastric sleeve in 2014, gastric-gastric fistula repair, severe esophagitis, esophageal stenosis dilated, Social history: Smoke one half a pack a day for about 38 years-stopped 2018. . No alcohol. Physical examination: VITAL SIGNS: 98.7, 70, 18, 141 with 69, 90% on 2 L GENERAL: Reclining in bed, comfortable EYES: Pupils equal. Conjunctiva normal. HEENT: External appearance of nose and ears normal, oral cavity grossly normal. NECK: JVD unable to assess; masses not palpable. HEART: First and second heart sounds are normal; no edema. LUNGS: Respiratory rate increased, minimal crackles ABDOMEN: Soft, nontender, liver spleen not palpable, no masses palpable. Left abdominal wall has a pain pump PSYCH: Alert and oriented x3; mood and affect anxious INVESTIGATIONS, reviewed in the clinical context: October 07: WBC 10.0 hemoglobin 8.5 potassium 4.4 creatinine 1.1 Pro-calcitonin 0.35 Date 0.8 platelets with 79 potassium 5.3 sodium 133 creatinine 0.86 proBNP 331 UA negative Coronavirus [PCR, influenza type A, type B: Not detected Assessment and plan: -Bilateral pneumonia suspected gram-negative organism-improving IV cefepime -Sepsis from pneumonia-improving IV fluids -Acute hypoxic respiratory failure due to pneumonitis-improving Supplement oxygen on 2 L - COPD in a ex-smoker Continue with DuoNeb -History of recurrent esophageal stricture with repeat dilatation -History of paraesophageal repair and history of sleeve gastrectomy -Essential hypertension Continue with Lopressor -Primary osteoarthritis Use Percocet when necessary -Chronic Gout Continue with allopurinol -Idiopathic peripheral neuropathy Continue with Lyrica -Chronic back pain with the pain pump -Anemia of chronic disease -Paroxysmal atrial fibrillation, currently in sinus rhythm continue with beta raf. -Chronic insomnia Continue with Ambien -Chronic GERD Continue with omeprazole Continue IV cefepime. Improving. Use incentive spirometry. Repeat BNP, procalcitonin, BMP, CBC in the morning
[2020-10-09 07:01] LABS: Anisocytosis Moderate; Basophils % (A) 1 %; Eosinophils # (A) 0.3 k/uL (0-0.7); Eosinophils % (A) 5 %; HCT 33.8 % (39.0-53.0); HGB 9.4 gm/dL (13.0-17.5); Hypochromasia Marked; Lymphocytes # (A) 1.9 k/uL (1.0-4.8); Lymphocytes % (A) 31 %; MCH 20.6 pg (25.0-35.0); MCHC 27.9 g/dL (31.0-37.0); MCV 73.7 fL (80.0-100.0); Mean Platelet Volume 8.1; Microcytosis Moderate; Monocytes # (A) 0.3 k/uL (0-1.0); Monocytes % (A) 5 %; Neutrophils # (A) 3.3 k/uL (1.3-7.7); Neutrophils % (A) 55 %; Platelet Count 470 k/uL (150-450); Poikilocytosis Slight; RBC 4.58 m/uL (4.30-5.90); RDW 20.1 % (11.5-15.5); WBC 6.1 k/uL (3.8-10.6)
[2020-10-09 07:22] LABS: African American GFR (CKD) >90 (>60 ml/min/1.73 sqM); Blood Urea Nitrogen 21 mg/dL (9-20); Calcium 8.9 mg/dL (8.4-10.2); Chloride 95 mmol/L (98-107); Glucose 88 mg/dL (74-99); Non-African American GFR(CKD) 79 (>60 ml/min/1.73 sqM); Potassium 5.1 mmol/L (3.5-5.1); Sodium 139 mmol/L (137-145)
[2020-10-09 07:29] LABS: Anion Gap 6 mmol/L
[2020-10-09 07:41] LABS: Carbon Dioxide 38 mmol/L (22-30)
--- NOTE | 2020-10-09 08:59 | XR ---
EXAMINATION TYPE: XR chest 1V portable DATE OF EXAM: 10/09/2020 Comparison: 10/06/2020 Clinical History: 55-year-old male pneumonia Findings: Heart normal size. C7-T1 ACDF changes. Slight rightward patient rotation. Patchy opacities remain thr oughout the right lung. These show slight improvement from prior exam. No pleural effusion. Patient's known gastric pull-through is not well demonstrated. Impression: Patchy infiltrates remain throughout the right lung but continue to show some improvement.
[2020-10-09] MEDS ORDERED: ERGOCALCIFEROL 1,250 MCG (50,000 IU) CAPSULE PO SCH (09:00)
[2020-10-09] MEDS: FUROSEMIDE 10 MG/ML 4 ML VIAL IV SCH (09:42)
[2020-10-09] MEDS: polyethylene glycoL 3350 17 GM POWD.PACK PO SCH (09:42)
[2020-10-09] MEDS: PANTOPRAZOLE 40 MG TABLET PO SCH (09:43)
[2020-10-09] MEDS: PREGABALIN 100 MG CAP PO SCH (09:43)
[2020-10-09] MEDS: METOPROLOL TARTRATE 12.5 MG TAB PO SCH (09:43)
[2020-10-09] MEDS: ESCITALOPRAM 10 MG TAB PO SCH (09:43)
[2020-10-09] MEDS: allopurinoL 300 MG TAB PO SCH (09:43)
[2020-10-09] MEDS: MEROPENEM 1 GM in SODIUM CHLORIDE 0.9% 100 ML IVPB SCH (09:48)
[2020-10-09] MEDS: oxyCODONE-APAP 5-325MG 1 EACH TAB PO PRN (09:49)
[2020-10-09 14:16] VITALS: BP 117/72; PULSE 75; RESP 19; TEMP 98.3
--- NOTE | 2020-10-09 15:47 | P.PN ---
Subjective Progress Note Date: 10/09/20 Principal diagnosis: ESBL gram-negative pneumonia, possibly aspiration related 55-year-old male patient with known history of aspiration pneumonia knowing that the patient has history of esophageal stenosis/fracture and the patient has had previous history of esophageal dilatation. Last dilatation was done approximately 2-3 months ago. The patient was hospitalized recently on 09/26/2020 with pneumonia and her COVID-19 testing was at that time negative. He has other comorbidities including morbid obesity with a previous history of gastric sleeve, history of atrial fibrillation, CVA, hypertension, chronic back pain, diabetes mellitus type 2. She was discharged home on 10/06/2020 and the patient was treated for bilateral aspiration pneumonia with a combination of antibiotics including IV Zosyn and the patient was discharged on oxygen and PRIMAXIN. The patient came in again to the hospital on 10/05/2020 with shortness of breath. He tested negative for COVID-19. He was having difficulties in breathing in the emergency. Denies having any chest pain. No abdominal pain. No nausea. No vomiting. No emesis. He is white cell count was 18.4 with a hemoglobin of 8.8, sodium was 133 with a potassium of 5.3 and a chloride of 96, creatinine is at 0.8. Coagulation profile was normal. The patient had another COVID-19 testing came back negative. Influenza A and B was also negative. The chest x-ray showing chronic infiltrate involving the right lung and the right lung is essentially smaller compared to the left indicating underlying volume loss. The chest x-ray showed multifocal airspace disease right more than left. The patient was restarted on antibiotics and the patient is currently on IV Zosyn. He is also on Flagyl. He is on oxygen at 5 L. His most recent sputum from 09/28/2020 showed Klebsiella pneumoniae (ESBL) and Deidre. On 10/07/2000 patient seen in follow-up on medical floor, he is currently on 4 L of oxygen pulse ox is 97%, he is breathing comfortably, FiO2 is down to 3 L, will continue weaning, he is diuresing, he is in negative fluid balance, lower extremity edema is improving, he is down 5 kg in the last 24 hours, yesterday we switched his IV antibiotics to meropenem for evidence of ESBL Klebsiella pneumonia in his previous sputum culture from 09/28/2020. Vital signs have been stable overnight, no fever or chills, no altered mentation, patient states he's been tolerating oral diet well, no episodes of aspiration reported. His labs have been reviewed showing white blood cell count trending down down to 10.04, hemoglobin is 8.5, his electrolytes and renal profile are unremarkable, pro- calcitonin level is 0.35. Urinalysis was negative, patient tested negative for coronavirus and influenza On 10/08/2020 patient seen in follow-up on medical surgical floor, he was taken off the oxygen today, but his pulse ox went down to 83-86% although he does not feel short of breath, but he was placed back on oxygen at 2 L, oxygen is coming up to over 88 percent, he is breathing comfortably, no complaints of chest pain or continue phlegm production, no hemoptysis, he is receiving diuretics, however his lower extremity edema still remains although improved. he is in negative fluid balance, his weight is down to 122.5 kg from 127 kg. Which is in the form of meropenem for evidence of ESBL gram-negative pneumonia. No new Chest x-ray today, and his chest x-ray from 2 days ago showed multifocal airspace disease right greater than left. And in aeration of the left side. He diuretics in the form of Lasix at 40 mg twice daily continue, patient is on GI and DVT prophylaxis, patient had no acute events overnight, he is tolerating oral diet, no nausea vomiting or diarrhea. On 10/09/2020 patient is awake and alert, denies any distress, denies any worsening dyspnea, occasional cough, he is breathing comfortably, he sitting up in the edge of the bed, he is eating lunch, he is currently on room air earlier on 2 L of oxygen his pulse ox was between 90-92%. On sounds reveal diminished breath sounds with some coarse crackles over the bases, he has been diuresed, his lower extremity edema has improved, today's chest x-ray shows patchy infiltrates throughout the right lung that continued to show improvement. Tereso aldridge has been on meropenem for ESBL Klebsiella pneumonia in the sputum culture from 09/28/2020, he is feeling better, he's had no fevers, his white count came down to 6.1, hemoglobin is 9.4 on today's labs, his sodium was 139, potassium is 5.1, chloride was 95, CO2 is 28, BUN is 21, creatinine is 1.06, and his pro- calcitonin level has improved, and is down to 0.17. Patient is requesting to go home today. Objective - Vital Signs Vital signs: Vital Signs Temp 98.3 F 10/09/20 14:00 Pulse 75 10/09/20 14:00 Resp 19 10/09/20 14:00 BP 117/72 10/09/20 14:00 Pulse Ox 90 L 10/09/20 14:00 Intake & Output 10/08/20 10/09/20 10/09/20 18:59 06:59 18:59 Weight 114.9 kg Other: Voiding Method Toilet Toilet Urinal Urinal # Voids 1 - Exam GENERAL EXAM: Alert, very pleasant, 55-year-old -[place] male, patient is on 2 L of oxygen with pulse ox of 90-92 %L comfortable in no apparent distress. HEAD: Normocephalic/atraumatic. EYES: Normal reaction of pupils, equal size. Conjunctiva pink, sclera white. NOSE: Clear with pink turbinates. THROAT: No erythema or exudates. NECK: No masses, no JVD, no thyroid enlargement, no adenopathy. CHEST: No chest wall deformity. Symmetrical expansion. LUNGS: Equal air entry with basilar crackles CVS: Regular rate and rhythm, normal S1 and S2, no gallops, no murmurs, no rubs ABDOMEN: Soft, nontender. No hepatosplenomegaly, normal bowel sounds, no guarding or rigidity. EXTREMITIES: No clubbing, 2 plus lower extremity pitting edema, no cyanosis, 2+ pulses and upper and lower extremities. MUSCULOSKELETAL: Muscle strength and tone normal. SPINE: No scoliosis or deformity SKIN: No rashes CENTRAL NERVOUS SYSTEM: Alert and oriented -3. No focal deficits, tone is normal in all 4 extremities. PSYCHIATRIC: Alert and oriented -3. Appropriate affect. Intact judgment and insight. - Labs CBC & Chem 7: 10/09/20 06:43 10/09/20 06:43 Labs: Abnormal Lab Results - Last 24 Hours (Table) 10/08/20 10/09/20 10/09/20 Range/Units 07:01 06:43 06:43 Hgb 9.4 L (13.0-17.5) gm/dL Hct 33.8 L (39.0-53.0) % MCV 73.7 L (80.0-100.0) fL MCH 20.6 L (25.0-35.0) pg MCHC 27.9 L (31.0-37.0) g/dL RDW 20.1 H (11.5-15.5) % Plt Count 470 H (150-450) k/uL Chloride (98-107) mmol/L Carbon Dioxide (22-30) mmol/L BUN (9-20) mg/dL Procalcitonin 0.22 H 0.17 H (0.02-0.09) ng/mL 10/09/20 Range/Units 06:43 Hgb (13.0-17.5) gm/dL Hct (39.0-53.0) % MCV (80.0-100.0) fL MCH (25.0-35.0) pg MCHC (31.0-37.0) g/dL RDW (11.5-15.5) % Plt Count (150-450) k/uL Chloride 95 L (98-107) mmol/L Carbon Dioxide 38 H (22-30) mmol/L BUN 21 H (9-20) mg/dL Procalcitonin (0.02-0.09) ng/mL Microbiology - Last 24 Hours (Table) 10/05/20 18:18 Blood Culture - Preliminary Blood No Growth after 72 hours Assessment and Plan Plan: Assessment: #1. Acute hypoxic respiratory failure related to suspected aspiration pneumonia, and COVID-19 was ruled out by multiple testing including testing that was done during this current admission. The chest x-ray showing volume loss on the right and chronic infiltrate. The chest x-ray findings and essentially improved compared to his last evaluation. The patient is currently on oxygen at 5 L whereas his pulse ox was 74% on room air oxygen. On 5 L, he was able to, but above 90%. No reported aspiration. Most recent sputum analysis from 2020 showed Klebsiella pneumoniae that was an ESBL producing organism.. The CAT scan of the chest that was done during his last admission on 09/27/2020 showed improving lung consolidation with some ongoing groundglass opacities in the lung bases and there was some increased noted erythema in the lung including the right lower lobe and the left apex which obviously raised the consideration for metastatic disease. I think the findings were essentially infectious in #2. Previous history of aspiration pneumonia #3. History of esophageal stricture, history of esophageal dilatation #4. Chronic anemia, unspecified #5. Morbid obesity, status post gastric sleeve in December 2019 #6. Paroxysmal A. fib, currently sinus mechanism, not on any chronic anti coagulation #7. History of CVA #8. Hypertension #9. History of back surgery and chronic back pain #10. Diabetes mellitus type 2 #11. Former nicotine dependence #12. His lower extremity edema, we'll start him on IV Lasix. Plan: Obtain home oxygen assessment and patient may qualify for home O2 Upon reviewing his previous cultures patient may chronically colonized with ESBL Klebsiella Follow-up chest x-ray reviewed and shows further improvement in the appearance of right lung infiltrates Maintain aspiration precautions Clinicallyl stable May be considered for discharge home today and ten-day course of oral antibiotics in the form of Bactrim and will need outpatient follow-up with Dr. Davidson in the office in one to 2 weeks I performed a history & physical examination of the patient and discussed their management with my nurse practitioner, Shea Terry. I reviewed the nurse practitioner's note and agree with the documented findings and plan of care. Lung sounds are positive for bilateral crackles. The findings and the impression was discussed with the patient. I attest to the documentation by the nurse practitioner. Time with Patient: Less than 30
--- NOTE | 2020-10-10 17:37 | P.DS ---
Providers Date of admission: 10/05/20 19:08 Expected date of discharge: 10/09/20 Attending physician: Chavez Pedraza Consults: 10/05/20 19:07 Consult Physician Routine Consulting Provider: Dimitri Davidson Consult Reason/Comments: Pneumonia Do you want consulting provider notified?: Yes Primary care physician: Eric Ang [place] [facility] Course: Chief Complaint: Short of breath History of presenting complaint: This is a very pleasant 55-year-old patient of Dr. Alexandrea Ang. stable medical conditions include hypertension, , gout, chronic bilateral hip pain, peripheral neuropathy. Atrial fibrillation, gastric [place] [address] Zarate. 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 Dumont. baseline - walk slowly because of peripheral neuropathy. In August 2018 patient had EGD done that showed severe erosive esophagitis with esophageal ulcer. readmitted July 05 2019 underwent balloon dilatation of 10-7 mm done. admitted July 22 and underwent EGD by Dr. Carbajal. Found-severe esophagitis and distal esophageal obstruction. A 10 mm dilatation was carried out. Retained food was extracted. Found to have possible aspiration pneumonia bilateral, treat with IV Zosyn-discharge. Dr. Carbajal discharged on Augmentin on July 26. On December 11 and I&D of the right scrotal abscess. - Shobha's gangrene. In December 2019- small bowel obstruction and recurrent hypoglycemia and was then transferred to [facility]. Patient recently the hospital from September 26 through September 29 with aspiration pneumonia. Was treated with IV Zosyn and discharge on Augmentin. Patient and discharge was doing well. With a pulse ox of 92%. Eating well. Was seen by Dr. Milligan from pulmonary. Patient did well at home for 2 days. This patient progressively started getting increasing shortness of breath. Cough. Pulse ox was decreasing. Doesn't a fever and chills. As respiratory symptoms progressed while decided been given. Patient appetite has been good. Patient noted fever and he underwent arrival here of 102.4. Started on IV meropenem. Admitted with pneumonia, acute hypoxic respiratory failure. On IV meropenem. Oxygen. Today: Doing much better. Eating well. We will require oxygen to go home. 90% on 2 L. Discussed with pulmonary. Home oxygen arranged. Discussed with correctional counselor/case manager. Discussed with the patient. Also patient has been extubated edema. [place] to be from the higher dose of Lyrica. Was admitted, cutback on for discussing with the patient. He will follow-up with his neurologist about the same. Which was used for peripheral neuropathy. Torito wrap given Discussion and discharge planning more than 35 minutes Consultation: Dr. Gomez and partners from pulmonary Past medical history to include: Hypertension, gout, peripheral neuropathy, atrial fibrillation, gastric sleeve in 2013, gastric-gastric fistula repair, severe esophagitis, esophageal stenosis dilated, Social history: Smoke one half a pack a day for about 38 years-stopped 2018. . No alcohol. Physical examination: VITAL SIGNS: 98.3, 75, 19, 170/72, 90% on 2 L GENERAL: Sitting up, comfortable EYES: Pupils equal. Conjunctiva normal. HEENT: External appearance of nose and ears normal, oral cavity grossly normal. NECK: JVD unable to assess; masses not palpable. HEART: First and second heart sounds are normal; no edema. LUNGS: Respiratory rate normal, fair entry ABDOMEN: Soft, nontender, liver spleen not palpable, no masses palpable. Left abdominal wall has a pain pump PSYCH: Alert and oriented x3; mood and affect anxious INVESTIGATIONS, reviewed in the clinical context: October 09: WBC 6.1 hemoglobin 9.4 platelets 470 potassium 5.1 creatinine 1.06 procalcitonin 0.17 October 07: WBC 10.0 hemoglobin 8.5 potassium 4.4 creatinine 1.1 Pro-calcitonin 0.35 Date 0.8 platelets with 79 potassium 5.3 sodium 133 creatinine 0.86 proBNP 331 UA negative Coronavirus [PCR, influenza type A, type B: Not detected Assessment and plan: -Bilateral pneumonia suspected gram-negative organism-improving IV cefepime-being discharged on Bactrim -Sepsis from corrected IV fluids -Acute hypoxic respiratory failure due to pneumonitis-improving Supplement oxygen on 2 L-discharged home on same - COPD in a ex-smoker Continue with DuoNeb -History of recurrent esophageal stricture with repeat dilatation -History of paraesophageal repair and history of sleeve gastrectomy -Essential hypertension Continue with Lopressor -Primary osteoarthritis Use Percocet when necessary -Chronic Gout Continue with allopurinol -Idiopathic peripheral neuropathy Continue with Lyrica -Chronic back pain with the pain pump -Anemia of chronic disease -Paroxysmal atrial fibrillation, currently in sinus rhythm continue with beta raf. -Chronic insomnia Continue with Ambien -Chronic GERD Continue with omeprazole -Bilateral lower extremity edema felt to be from Lyrica Dose of medical cutback from 300 mg twice a day to once a day. Disposition: Home Continue IV cefepime. Improving. Use incentive spirometry. Repeat BNP, procalcitonin, BMP, CBC in the morning Plan - Discharge Summary Discharge Rx Participant: No New Discharge Prescriptions: New Sulfamethox-Tmp 800-160Mg [Bactrim DS 800-160 mg] 1 tab PO Q12HR 10 Days #20 tab Continue Escitalopram [Lexapro] 10 mg PO DAILY Allopurinol [Zyloprim] 300 mg PO DAILY Omeprazole 40 mg PO BID #60 cap Cyclobenzaprine [Flexeril] 10 mg PO BID PRN #0 PRN Reason: Spasms Metoprolol Tartrate [Lopressor] 12.5 mg PO BID oxyCODONE HCL/ACETAMINOPHEN [Percocet 5-325 mg] 1 tab PO QID PRN PRN Reason: Pain Zolpidem [Ambien] 5 mg PO HS #30 tab polyethylene glycoL 3350 [Miralax] 17 gm PO DAILY Ergocalciferol [Vitamin D2 (1250 Mcg = 97267 Iu)] 1,250 mcg PO MO Changed Pregabalin [Lyrica] 300 mg PO HS #1 cap Discontinued Amoxicillin/Potassium Clav [Augmentin 875-125 Tablet] 1 tab PO Q12HR #6 tab Discharge Medication List Allopurinol [Zyloprim] 300 mg PO DAILY 06/04/16 [History] Escitalopram [Lexapro] 10 mg PO DAILY 06/04/16 [History] Omeprazole 40 mg PO BID #60 cap 07/06/19 [Rx] Cyclobenzaprine [Flexeril] 10 mg PO BID PRN #0 03/27/20 [Rx] Metoprolol Tartrate [Lopressor] 12.5 mg PO BID 04/28/20 [History] oxyCODONE HCL/ACETAMINOPHEN [Percocet 5-325 mg] 1 tab PO QID PRN 08/31/20 [History] Zolpidem [Ambien] 5 mg PO HS #30 tab 09/02/20 [Rx] Ergocalciferol [Vitamin D2 (1250 Mcg = 40004 Iu)] 1,250 mcg PO MO 09/26/20 [History] polyethylene glycoL 3350 [Miralax] 17 gm PO DAILY 09/26/20 [History] Pregabalin [Lyrica] 300 mg PO HS #1 cap 10/09/20 [Rx] Sulfamethox-Tmp 800-160Mg [Bactrim DS 800-160 mg] 1 tab PO Q12HR 10 Days #20 tab 10/09/20 [Rx] Follow up Appointment(s)/Referral(s): [facility],Equipment [NON-STAFF] - (*Please call [facility] once home to arrange delivery of oxygen concentrator. ) Eric Ang DO [Primary Care Provider] - 1-2 days (Office closed at time of discharge. Please call the office to make an appt tomorrow morning.) Dimitri Davidson MD [STAFF PHYSICIAN] - 1 Week (Office closed at time of discharge. Please call to make an appt tomorrow morning.) Patient Instructions/Handouts: Aspiration Pneumonia (DC) Activity/Diet/Wound Care/Special Instructions: Patient requires home oxygen to manage his of COPD. torito wraps during daytime send home with incentive spirometer dose of lyrica cut back - no new prescription Discharge Disposition: HOME SELF-CARE
== END 2020-10-09 17:38 | disposition home or self-care (01) | DRG 871 ==
LOC: EC 15:52 → 4SSUR 19:08
PROVIDERS: ADMIT Hospitalist; ATTEND Hospitalist
PROC: 5A0935A Assistance with Respiratory Ventilation, Less than 24 Consecutive Hours, High Flow/Velocity Cannula (ICD-10-PCS; principal; 2020-10-09)
DX: A41.50 Gram-negative sepsis, unspecified (principal); J15.6 Pneumonia due to other Gram-negative bacteria; J96.01 Acute respiratory failure with hypoxia; J44.0 Chronic obstructive pulmonary disease with (acute) lower respiratory infection; R65.20 Severe sepsis without septic shock; Z87.891 Personal history of nicotine dependence; D63.8 Anemia in other chronic diseases classified elsewhere; E11.9 Type 2 diabetes mellitus without complications; G60.9 Hereditary and idiopathic neuropathy, unspecified; E66.01 Morbid (severe) obesity due to excess calories; Z68.30 Body mass index [BMI] 30.0-30.9, adult; E78.5 Hyperlipidemia, unspecified; F32.9 Major depressive disorder, single episode, unspecified; F41.9 Anxiety disorder, unspecified; F51.04 Psychophysiologic insomnia; G40.909 Epilepsy, unspecified, not intractable, without status epilepticus; G89.29 Other chronic pain; I10 Essential (primary) hypertension; I48.0 Paroxysmal atrial fibrillation; K21.00 Gastro-esophageal reflux disease with esophagitis, without bleeding; K44.9 Diaphragmatic hernia without obstruction or gangrene; M19.91 Primary osteoarthritis, unspecified site; M1A.9XX0 Chronic gout, unspecified, without tophus (tophi); Z20.822 Contact with and (suspected) exposure to COVID-19; Z79.899 Other long term (current) drug therapy; Z82.49 Family history of ischemic heart disease and other diseases of the circulatory system; Z86.73 Personal history of transient ischemic attack (TIA), and cerebral infarction without residual deficits; Z87.01 Personal history of pneumonia (recurrent); Z87.19 Personal history of other diseases of the digestive system; Z87.11 Personal history of peptic ulcer disease; Z96.612 Presence of left artificial shoulder joint; Z96.643 Presence of artificial hip joint, bilateral; Z98.1 Arthrodesis status; Z98.84 Bariatric surgery status; Z80.1 Family history of malignant neoplasm of trachea, bronchus and lung; R60.0 Localized edema; T42.6X5A Adverse effect of other antiepileptic and sedative-hypnotic drugs, initial encounter
CPT/HCPCS: 36415; 71045; 80048; 80053; 81003; 83605; 83880; 84145; 85025; 85610; 85730; 87040; 87502; 87635; 93005; 96361; 96374; 99285

== ENCOUNTER 2020-10-18 15:52 | Observation (INO) | payer MEDICARE, OTHER ==
[2020-10-18] MEDS ORDERED: SODIUM CHLORIDE 0.9% 1,000 ML IV ONE (16:18)
--- NOTE | 2020-10-18 16:23 | ED ---
General Adult HPI - General Chief complaint: Shortness of Breath Stated complaint: ELIF/Weakness Time Seen by Provider: 10/18/20 16:00 Source: patient, EMS, RN notes reviewed Mode of arrival: EMS Limitations: no limitations - History of Present Illness Initial comments: Patient is a pleasant 55-year-old male presenting to the emergency Department with general weakness and drowsiness. Onset is unclear. Patient has fallen out of his bed at the skilled nursing several times. Patient denies any significant injury. Patient was recently in the hospital for COVID-19 pneumonia. Patient does have history of COPD. Patient does admit to feeling drowsy and does frequently fall asleep even during conversation. No headache. Patient does not feel confused. Patient does admit to having some dyspnea. No chest pain. No abdominal pain. Patient does not feel weak however is very fatigued when he tries to exert himself. Patient normally is on 2 L nasal cannula. - Related Data Home Medications Medication Instructions Recorded Confirmed Allopurinol [Zyloprim] 300 mg PO DAILY 06/04/16 10/18/20 Escitalopram [Lexapro] 10 mg PO DAILY 06/04/16 10/18/20 Metoprolol Tartrate [Lopressor] 12.5 mg PO BID 04/28/20 10/18/20 oxyCODONE HCL/ACETAMINOPHEN 1 tab PO QID PRN 08/31/20 10/18/20 [Percocet 5-325 mg] Ergocalciferol [Vitamin D2 (1250 1,250 mcg PO MO 09/26/20 10/18/20 Mcg = 79902 Iu)] polyethylene glycoL 3350 [Miralax] 17 gm PO DAILY 09/26/20 10/18/20 Docusate [Colace] 100 mg PO DAILY PRN 10/18/20 10/18/20 Furosemide [Lasix] 20 mg PO DAILY 10/18/20 10/18/20 lisinopriL [Zestril] 2.5 mg PO DAILY 10/18/20 10/18/20 Previous Rx's Medication Instructions Recorded Omeprazole 40 mg PO BID #60 cap 07/06/19 Cyclobenzaprine [Flexeril] 10 mg PO BID PRN #0 03/27/20 Zolpidem [Ambien] 5 mg PO HS #30 tab 09/02/20 Pregabalin [Lyrica] 300 mg PO HS #1 cap 10/09/20 Sulfamethox-Tmp 800-160Mg [Bactrim 1 tab PO Q12HR 10 Days #20 tab 10/09/20 DS 800-160 mg] Allergies Allergy/AdvReac Type Severity Reaction Status Date / Time No Known Allergies Allergy Verified 10/18/20 17:12 Review of Systems ROS Statement: Those systems with pertinent positive or pertinent negative responses have been documented in the HPI. ROS Other: All systems not noted in ROS Statement are negative. Constitutional: Denies: fever Eyes: Denies: eye pain ENT: Denies: ear pain Respiratory: Reports: as per HPI, dyspnea Cardiovascular: Denies: chest pain Endocrine: Reports: fatigue Gastrointestinal: Denies: abdominal pain Genitourinary: Denies: dysuria Musculoskeletal: Denies: back pain Skin: Denies: rash Neurological: Reports: as per HPI. Denies: headache Past Medical History Past Medical History: Atrial Fibrillation, COPD, CVA/TIA, GERD/Reflux, Hyperlipidemia, Hypertension, Osteoarthritis (OA), Pneumonia, Seizure Disorder, Sleep Apnea/CPAP/BIPAP Additional Past Medical History / Comment(s): hiatal hernia, gout, neuropathy marta legs and feet- states feet are numb, some numbness in legs & tingling in hands., chronic back pain., constipation., dysphagia-hx of EGD with dilation, chronic esophogeal stenosis. Last sz october 2019, states frequent pneumonia & not sure why, recent admission for History of Any Multi-Drug Resistant Organisms: CRE, ESBL Date of last positivie culture/infection: 09/28/20 ESBL Klebsiella MDRO Source:: Sputum Past Surgical History: Back Surgery, Bariatric Surgery, Bowel Resection, Heart Catheterization, Joint Replacement, Orthopedic Surgery Additional Past Surgical History / Comment(s): PAIN PUMP IMPLANTED 07/17/18, HX GASTRIC SLEEVE AND . BILATERAL KNEE arthroscopy, BILATERAL HIP replacement, LEFT SHOULDER replacement, LEFT ACHILES TENDON SX., RIGHT BIG TOE took piece out, ec hocardiolgram, spinal fusion, EGD with dilation., STATES HX OF PNEUMONIA WITH LUNG SURGERY., REPAIR OF HIATAL HERNIA & LYSIS OF ADHESIONS Past Anesthesia/Blood Transfusion Reactions: No Reported Reaction Past Psychological History: Anxiety, Depression Smoking Status: Former smoker Past Alcohol Use History: None Reported Past Drug Use History: None Reported - Past Family History Father Family Medical History: Cancer Additional Family Medical History / Comment(s): lung Mother Family Medical History: Coronary Artery Disease (CAD) Additional Family Medical History / Comment(s): . General Exam Limitations: no limitations General appearance: in no apparent distress, other (Awake but drowsy) Head exam: Present: atraumatic, normocephalic Eye exam: Present: normal appearance, PERRL, EOMI ENT exam: Present: normal oropharynx Neck exam: Present: normal inspection. Absent: tenderness Respiratory exam: Present: normal lung sounds bilaterally Cardiovascular Exam: Present: regular rate, normal rhythm GI/Abdominal exam: Present: soft. Absent: tenderness Extremities exam: Present: normal inspection Neurological exam: Present: alert, oriented X3, CN II-XII intact. Absent: motor sensory deficit Expanded Neurological exam: Present: protecting the airway Patient oriented to: Present: person, place, time Motor strength exam: RUE: 5, LUE: 5, RLE: 5, LLE: 5 Eye Response: (3) open to voice Motor Response: (6) obeys commands Verbal Response: (5) oriented Psychiatric exam: Present: normal affect, normal mood Skin exam: Present: normal color Course Vital Signs 10/18/20 10/18/20 10/18/20 15:56 16:01 17:13 Temperature 98.2 F Pulse Rate 65 Respiratory 18 18 Rate Blood Pressure 95/67 99/66 O2 Sat by Pulse 96 97 Oximetry 10/18/20 18:02 Temperature Pulse Rate 66 Respiratory 18 Rate Blood Pressure 106/77 O2 Sat by Pulse 93 L Oximetry EKG Findings - EKG Comments: EKG Findings:: Normal sinus rhythm with a rate of 65. KS 160. QRS 114. UTC 434. QTC 451. Normal axis. Incomplete left bundle-branch block. No acute ST change. Procedures - ABG Interpretation Ph: 7.35 PCO2: 55.8 PO2: 75.1 Bicarbonate: 31 Medical Decision Making - Medical Decision Making Patient reevaluated. Patient still remains drowsy and slurred. Case discussed with Dr. Pedraza who is familiar with this patient and will admit with neurology and pulmonary consult. - Lab Data Result diagrams: 10/18/20 16:50 10/18/20 16:50 Lab Results 04/28/21 04/28/21 04/28/21 Range/Units 16:50 16:50 16:50 WBC 9.1 (3.8-10.6) k/uL RBC 4.39 (4.30-5.90) m/uL Hgb 8.8 L (13.0-17.5) gm/dL Hct 33.3 L (39.0-53.0) % MCV 75.9 L (80.0-100.0) fL MCH 20.1 L (25.0-35.0) pg MCHC 26.5 L (31.0-37.0) g/dL RDW 20.6 H (11.5-15.5) % Plt Count 367 (150-450) k/uL MPV 7.6 Neutrophils % 75 % Lymphocytes % 15 % Monocytes % 4 % Eosinophils % 3 % Basophils % 0 % Neutrophils # 6.9 (1.3-7.7) k/uL Lymphocytes # 1.4 (1.0-4.8) k/uL Monocytes # 0.4 (0-1.0) k/uL Eosinophils # 0.3 (0-0.7) k/uL Basophils # 0.0 (0-0.2) k/uL Hypochromasia Marked Poikilocytosis Slight Anisocytosis Moderate Microcytosis Moderate PT 12.7 H (9.0-12.0) sec INR 1.2 H (<1.2) APTT 26.2 (22.0-30.0) sec Sample Site ABG pH (7.35-7.45) ABG pCO2 (35-45) mmHg ABG pO2 (83-108) mmHg ABG HCO3 (21-25) mmol/L ABG Total CO2 (19-24) mmol/L ABG O2 Saturation (94-97) % ABG Base Excess mmol/L Messi Test FiO2 % Sodium 135 L (137-145) mmol/L Potassium 5.3 H (3.5-5.1) mmol/L Chloride 98 (98-107) mmol/L Carbon Dioxide 33 H (22-30) mmol/L Anion Gap 4 mmol/L BUN 15 (9-20) mg/dL Creatinine 1.02 (0.66-1.25) mg/dL Est GFR (CKD-EPI)AfAm >90 (>60 ml/min/1.73 sqM) Est GFR (CKD-EPI)NonAf 82 (>60 ml/min/1.73 sqM) Glucose 74 (74-99) mg/dL Calcium 8.9 (8.4-10.2) mg/dL Total Bilirubin 0.8 (0.2-1.3) mg/dL AST 28 (17-59) U/L ALT 8 (4-49) U/L Alkaline Phosphatase 89 (38-126) U/L Ammonia (<30) umol/L Troponin I (0.000-0.034) ng/mL Total Protein 8.0 (6.3-8.2) g/dL Albumin 3.5 (3.5-5.0) g/dL Urine Color Urine Appearance (Clear) Urine pH (5.0-8.0) Ur Specific Elizabeth (1.001-1.035) Urine Protein (Negative) Urine Glucose (UA) (Negative) Urine Ketones (Negative) Urine Blood (Negative) Urine Nitrite (Negative) Urine Bilirubin (Negative) Urine Urobilinogen (<2.0) mg/dL Ur Leukocyte Esterase (Negative) Urine RBC (0-5) /hpf Urine WBC (0-5) /hpf Ur Squamous Epith Cells (0-4) /hpf Urine Opiates Screen (NotDetected) Ur Oxycodone Screen (NotDetected) Urine Methadone Screen (NotDetected) Ur Propoxyphene Screen (NotDetected) Ur Barbiturates Screen (NotDetected) U Tricyclic Antidepress (NotDetected) Ur Phencyclidine Scrn (NotDetected) Ur Amphetamines Screen (NotDetected) U Methamphetamines Scrn (NotDetected) U Benzodiazepines Scrn (NotDetected) Urine Cocaine Screen (NotDetected) U Marijuana (THC) Screen (NotDetected) 10/18/20 10/18/20 10/18/20 Range/Units 16:50 16:50 17:48 WBC (3.8-10.6) k/uL RBC (4.30-5.90) m/uL Hgb (13.0-17.5) gm/dL Hct (39.0-53.0) % MCV (80.0-100.0) fL MCH (25.0-35.0) pg MCHC (31.0-37.0) g/dL RDW (11.5-15.5) % Plt Count (150-450) k/uL MPV Neutrophils % % Lymphocytes % % Monocytes % % Eosinophils % % Basophils % % Neutrophils # (1.3-7.7) k/uL Lymphocytes # (1.0-4.8) k/uL Monocytes # (0-1.0) k/uL Eosinophils # (0-0.7) k/uL Basophils # (0-0.2) k/uL Hypochromasia Poikilocytosis Anisocytosis Microcytosis PT (9.0-12.0) sec INR (<1.2) APTT (22.0-30.0) sec Sample Site R RAD ABG pH 7.36 (7.35-7.45) ABG pCO2 56 H (35-45) mmHg ABG pO2 75 L (83-108) mmHg ABG HCO3 31 H (21-25) mmol/L ABG Total CO2 33 H (19-24) mmol/L ABG O2 Saturation 93.4 L (94-97) % ABG Base Excess 5.9 mmol/L Messi Test Yes FiO2 28 % Sodium (137-145) mmol/L Potassium (3.5-5.1) mmol/L Chloride (98-107) mmol/L Carbon Dioxide (22-30) mmol/L Anion Gap mmol/L BUN (9-20) mg/dL Creatinine (0.66-1.25) mg/dL Est GFR (CKD-EPI)AfAm (>60 ml/min/1.73 sqM) Est GFR (CKD-EPI)NonAf (>60 ml/min/1.73 sqM) Glucose (74-99) mg/dL Calcium (8.4-10.2) mg/dL Total Bilirubin (0.2-1.3) mg/dL AST (17-59) U/L ALT (4-49) U/L Alkaline Phosphatase (38-126) U/L Ammonia <9 (<30) umol/L Troponin I <0.012 (0.000-0.034) ng/mL Total Protein (6.3-8.2) g/dL Albumin (3.5-5.0) g/dL Urine Color Urine Appearance (Clear) Urine pH (5.0-8.0) Ur Specific Elizabeth (1.001-1.035) Urine Protein (Negative) Urine Glucose (UA) (Negative) Urine Ketones (Negative) Urine Blood (Negative) Urine Nitrite (Negative) Urine Bilirubin (Negative) Urine Urobilinogen (<2.0) mg/dL Ur Leukocyte Esterase (Negative) Urine RBC (0-5) /hpf Urine WBC (0-5) /hpf Ur Squamous Epith Cells (0-4) /hpf Urine Opiates Screen (NotDetected) Ur Oxycodone Screen (NotDetected) Urine Methadone Screen (NotDetected) Ur Propoxyphene Screen (NotDetected) Ur Barbiturates Screen (NotDetected) U Tricyclic Antidepress (NotDetected) Ur Phencyclidine Scrn (NotDetected) Ur Amphetamines Screen (NotDetected) U Methamphetamines Scrn (NotDetected) U Benzodiazepines Scrn (NotDetected) Urine Cocaine Screen (NotDetected) U Marijuana (THC) Screen (NotDetected) 10/18/20 Range/Units 17:59 WBC (3.8-10.6) k/uL RBC (4.30-5.90) m/uL Hgb (13.0-17.5) gm/dL Hct (39.0-53.0) % MCV (80.0-100.0) fL MCH (25.0-35.0) pg MCHC (31.0-37.0) g/dL RDW (11.5-15.5) % Plt Count (150-450) k/uL MPV Neutrophils % % Lymphocytes % % Monocytes % % Eosinophils % % Basophils % % Neutrophils # (1.3-7.7) k/uL Lymphocytes # (1.0-4.8) k/uL Monocytes # (0-1.0) k/uL Eosinophils # (0-0.7) k/uL Basophils # (0-0.2) k/uL Hypochromasia Poikilocytosis Anisocytosis Microcytosis PT (9.0-12.0) sec INR (<1.2) APTT (22.0-30.0) sec Sample Site ABG pH (7.35-7.45) ABG pCO2 (35-45) mmHg ABG pO2 (83-108) mmHg ABG HCO3 (21-25) mmol/L ABG Total CO2 (19-24) mmol/L ABG O2 Saturation (94-97) % ABG Base Excess mmol/L Messi Test FiO2 % Sodium (137-145) mmol/L Potassium (3.5-5.1) mmol/L Chloride (98-107) mmol/L Carbon Dioxide (22-30) mmol/L Anion Gap mmol/L BUN (9-20) mg/dL Creatinine (0.66-1.25) mg/dL Est GFR (CKD-EPI)AfAm (>60 ml/min/1.73 sqM) Est GFR (CKD-EPI)NonAf (>60 ml/min/1.73 sqM) Glucose (74-99) mg/dL Calcium (8.4-10.2) mg/dL Total Bilirubin (0.2-1.3) mg/dL AST (17-59) U/L ALT (4-49) U/L Alkaline Phosphatase (38-126) U/L Ammonia (<30) umol/L Troponin I (0.000-0.034) ng/mL Total Protein (6.3-8.2) g/dL Albumin (3.5-5.0) g/dL Urine Color Light Yellow Urine Appearance Clear (Clear) Urine pH 7.0 (5.0-8.0) Ur Specific Elizabeth 1.010 (1.001-1.035) Urine Protein Negative (Negative) Urine Glucose (UA) Negative (Negative) Urine Ketones Negative (Negative) Urine Blood Trace H (Negative) Urine Nitrite Negative (Negative) Urine Bilirubin Negative (Negative) Urine Urobilinogen <2.0 (<2.0) mg/dL Ur Leukocyte Esterase Negative (Negative) Urine RBC 7 H (0-5) /hpf Urine WBC 1 (0-5) /hpf Ur Squamous Epith Cells <1 (0-4) /hpf Urine Opiates Screen Detected H (NotDetected) Ur Oxycodone Screen Detected H (NotDetected) Urine Methadone Screen Not Detected (NotDetected) Ur Propoxyphene Screen Not Detected (NotDetected) Ur Barbiturates Screen Not Detected (NotDetected) U Tricyclic Antidepress Not Detected (NotDetected) Ur Phencyclidine Scrn Not Detected (NotDetected) Ur Amphetamines Screen Not Detected (NotDetected) U Methamphetamines Scrn Not Detected (NotDetected) U Benzodiazepines Scrn Detected H (NotDetected) Urine Cocaine Screen Not Detected (NotDetected) U Marijuana (THC) Screen Not Detected (NotDetected) - Radiology Data Radiology results: report reviewed (Computed tomography scan of the brain reveals no acute abnormality), image reviewed (Chest x-ray shows infiltrate, mostly right upper lobe. May be slightly worse than previous.) Disposition Clinical Impression: Altered mental status, Dyspnea Disposition: ADMITTED IP TO THIS HOSP Is patient prescribed a controlled substance at d/c from ED?: No Referrals: Nonstaff,Physician [Primary Care Provider] - 1-2 days Decision Time: 18:49
[2020-10-18 16:58] LABS: Anisocytosis Moderate; Basophils % (A) 0 %; Eosinophils # (A) 0.3 k/uL (0-0.7); Eosinophils % (A) 3 %; HCT 33.3 % (39.0-53.0); HGB 8.8 gm/dL (13.0-17.5); Hypochromasia Marked; Lymphocytes # (A) 1.4 k/uL (1.0-4.8); Lymphocytes % (A) 15 %; MCH 20.1 pg (25.0-35.0); MCHC 26.5 g/dL (31.0-37.0); MCV 75.9 fL (80.0-100.0); Mean Platelet Volume 7.6; Microcytosis Moderate; Monocytes # (A) 0.4 k/uL (0-1.0); Monocytes % (A) 4 %; Neutrophils # (A) 6.9 k/uL (1.3-7.7); Neutrophils % (A) 75 %; Platelet Count 367 k/uL (150-450); Poikilocytosis Slight; RBC 4.39 m/uL (4.30-5.90); RDW 20.6 % (11.5-15.5); WBC 9.1 k/uL (3.8-10.6)
[2020-10-18 17:06] LABS: INR 1.2 (<1.2); Partial Thromboplastin Time 26.2 sec (22.0-30.0); Prothrombin Time 12.7 sec (9.0-12.0)
[2020-10-18 17:15] LABS: ALT 8 U/L (4-49); AST 28 U/L (17-59); African American GFR (CKD) >90 (>60 ml/min/1.73 sqM); Albumin 3.5 g/dL (3.5-5.0); Alkaline Phosphatase 89 U/L (38-126); Anion Gap 4 mmol/L; Blood Urea Nitrogen 15 mg/dL (9-20); Calcium 8.9 mg/dL (8.4-10.2); Carbon Dioxide 33 mmol/L (22-30); Chloride 98 mmol/L (98-107); Glucose 74 mg/dL (74-99); Non-African American GFR(CKD) 82 (>60 ml/min/1.73 sqM); Potassium 5.3 mmol/L (3.5-5.1); Sodium 135 mmol/L (137-145); Total Bilirubin 0.8 mg/dL (0.2-1.3)
[2020-10-18 17:57] LABS: ABG Base Excess 5.9 mmol/L; ABG HCO3 31 mmol/L (21-25); ABG Oxygen Saturation 93.4 % (94-97); ABG PCO2 56 mmHg (35-45); ABG PH 7.36 (7.35-7.45); ABG PO2 75 mmHg (83-108); ABG TCO2 33 mmol/L (19-24); Allen Test Performed? Yes
[2020-10-18 18:16] LABS: Appearance,Urine Clear (Clear); Bilirubin,Urine Negative (Negative); Blood,Urine Trace (Negative); Color,Urine Light Yellow; Glucose,Urine (UA) Negative (Negative); Ketones,Urine Negative (Negative); Leukocyte Esterase,Urine Negative (Negative); Nitrite,Urine Negative (Negative); Protein,Urine Negative (Negative); RBC,Urine 7 /hpf (0-5); Squamous Epithelial Cell,Urine <1 /hpf (0-4); Urobilinogen,Urine <2.0 mg/dL (<2.0); WBC,Urine 1 /hpf (0-5)
[2020-10-18 18:21] LABS: Amphetamine Screen,Urine Not Detected (NotDetected); Cocaine Screen,Urine Not Detected (NotDetected); Opiate Screen,Urine Detected (NotDetected); Phencyclidine Screen,Urine Not Detected (NotDetected); Urn Cannabinoid Scrn Not Detected (NotDetected)
--- NOTE | 2020-10-18 18:21 | CT ---
EXAMINATION TYPE: CT brain wo con DATE OF EXAM: 10/18/2020 COMPARISON: 03/19/2020 HISTORY: Altered mental status. CT DLP: 3577.4 mGycm Automated exposure control for dose reduction was used. Ventricles have normal size. There is no mass effect nor midline shift. There is no sign of intracran ial hemorrhage. Calvarium is intact. There is no evidence of cerebral edema. Skull base appears intac t. IMPRESSION: Negative unenhanced head CT scan. No change.
[2020-10-18 18:22] LABS: Barbiturate Screen,Urine Not Detected (NotDetected); Benzodiazepines Screen,Urine Detected (NotDetected); Methadone Screen, Urine Not Detected (NotDetected); Oxycodone Screen, Urine Detected (NotDetected); Tricyclic Antidepressant,Urine Not Detected (NotDetected)
--- NOTE | 2020-10-18 18:26 | XR ---
EXAMINATION TYPE: XR chest 2V DATE OF EXAM: 10/18/2020 COMPARISON: 10/09/2020 HISTORY: Altered mental status TECHNIQUE: FINDINGS: Heart is normal. There is cervical spine fusion surgery. There is some mild reticular nodul ar infiltrate in the right upper lobe. The left lung is fairly clear. There is no sign of pleural eff usion. There are no hilar masses. IMPRESSION: There is some right upper lobe infiltrate probably increased slightly compared to old exa m. Normal heart.
[2020-10-18] MEDS ORDERED: NALOXONE 0.4 MG/ML 1 ML VIAL IV PRN (18:51)
[2020-10-18] MEDS: METOPROLOL TARTRATE 12.5 MG TAB PO SCH (22:18)
[2020-10-18] MEDS: SULFAMETHOX-TMP 800-160MG 1 EACH TAB PO SCH (22:19)
[2020-10-18] MEDS: PANTOPRAZOLE 40 MG TABLET PO SCH (22:19)
[2020-10-19] MEDS: FUROSEMIDE 20 MG TAB PO SCH (09:56)
[2020-10-19] MEDS: METOPROLOL TARTRATE 12.5 MG TAB PO SCH ×2 (09:56→20:27)
[2020-10-19] MEDS: PANTOPRAZOLE 40 MG TABLET PO SCH ×2 (09:56→20:27)
[2020-10-19] MEDS ORDERED: levETIRAcetam IV 1,500 MG in SALINE 1 100ML.BAG IVPB STA (10:07)
--- NOTE | 2020-10-19 10:15 | P.CNNES ---
History of Present Illness Consult date: 10/19/20 Requesting physician: Jamey Mahan Reason for Consult: altered mental status History of Present Illness: This is a 55-year-old gentleman with medical history of atrial fibrillation, hypertension, hyperlipidemia who presented emergency department on 10/18/2020 for generalized weakness and drowsiness. History is obtained from the patient and his (Amy via phone). According to the patient yesterday in afternoon at around 2:30pm found on the floor by the bed by family member and was shaking of extremities, eyes rolling back. Patient had urinary incontinence. Unsure of duration. And had post-ictal stated but unsure. Per the patient , this has been going on for two years and happen during the night and per the can last few seconds and can last entire night. Happening 5 days out of a week. Patient stated he had a prior episode like this during the day in past. The patient follows up with Dr. Zavaleta team and he had an EEG and was told it was normal. According to the patient he was told these episodes were not seizures. The patient was recently in the hospital for COVID 19 pneumonia. He has been falling out of bed it initial home several times. Patient feels he is very fatigued and he has some dyspnea. Some of the patient's home medication includes Lyrica 300 mg daily at bedtime, Lopressor, Flexeril, lisinopril, Ambien. He on Oxycodone and Morphine bump for his neuropathy according to the patient perscribed by Dr. Mckinney's team. Patient stated he had neuropathy work-up such as EMG with [facility] and was told he had neuropathy but denies history of diabetes and not sure what other lab work- up was. Regarding history patient stated it was normal, term, vaginal and no co mplication. Some of the workup in the hospital consisted of: Initial vital signs: Blood pressure is 95/67, heart rate of 65, respiratory of 18, temperature of 98.2 Fahrenheit oral pulse ox of 96% at room air. During the hospital patient's pulse ox 1 down to 93 % CT of the head is reported as negative unenhanced head CT scan. No change. EKG is reported as normal sinus rhythm. Incomplete left bundle branch block. Borderline EKG. White blood cell is 9.1 which is normal. Patient hemoglobin is 8.8, hematocrit is 33.3 and MCV 75.9. Sodium is 135 which is mildly low and the potassium is 5.3 which is slightly elevated the normal range. AST of 28, ALT of 8, ammonia is less than 9. The serum glucose is 74 on presentation which are borderline normal. Urine drug screen is positive for opiates, oxycodone and benzodiazepine. Upon reviewing the medication that was given in the hospital so far nonoccluded benzos or opiates that would affect the patient's urine drug screen. ABG the pH is 7.36, pCO2 is 56, pO2 75 bicarbonate is 31. Review of Systems Review of system: The 12 point system was reviewed and apparent positive and negative per HPI. Past Medical History Past Medical History: Atrial Fibrillation, COPD, CVA/TIA, GERD/Reflux, Hyperlipidemia, Hypertension, Osteoarthritis (OA), Pneumonia, Seizure Disorder, Sleep Apnea/CPAP/BIPAP Additional Past Medical History / Comment(s): hiatal hernia, gout, neuropathy marta legs and feet- states feet are numb, some numbness in legs & tingling in hands., chronic back pain., constipation., dysphagia-hx of EGD with dilation, chronic esophogeal stenosis. Last October 2019, states frequent pneumonia & not sure why, recent admission for History of Any Multi-Drug Resistant Organisms: CRE, ESBL Date of last positivie culture/infection: 09/28/20 ESBL Klebsiella MDRO Source:: Sputum Past Surgical History: Back Surgery, Bariatric Surgery, Bowel Resection, Heart Catheterization, Joint Replacement, Orthopedic Surgery Additional Past Surgical History / Comment(s): PAIN PUMP IMPLANTED 07/17/18, HX GASTRIC SLEEVE AND . BILATERAL KNEE arthroscopy, BILATERAL HIP replacement, LEFT SHOULDER replacement, LEFT ACHILES TENDON SX., RIGHT BIG TOE took piece out, echocardiolgram, spinal fusion, EGD with dilation., STATES HX OF PNEUMONIA WITH LUNG SURGERY., REPAIR OF HIATAL HERNIA & LYSIS OF ADHESIONS Past Anesthesia/Blood Transfusion Reactions: No Reported Reaction Past Psychological History: Anxiety, Depression Additional Psychological History / Comment(s): Pt resides with his spouse, daughter and in laws. He uses a walker to ambulate. He does not drive, his spouse takes him to appts. Smoking Status: Former smoker Past Alcohol Use History: None Reported Additional Past Alcohol Use History / Comment(s): Pt started smoking in 1985 and quit in 2018. Past Drug Use History: None Reported - Past Family History Father Family Medical History: Cancer Additional Family Medical History / Comment(s): lung Mother Family Medical History: Coronary Artery Disease (CAD) Additional Family Medical History / Comment(s): . Medications and Allergies Home Medications Medication Instructions Recorded Confirmed Type Allopurinol [Zyloprim] 300 mg PO DAILY 06/04/16 10/18/20 History Escitalopram [Lexapro] 10 mg PO DAILY 06/04/16 10/18/20 History Omeprazole 40 mg PO BID #60 cap 07/06/19 10/18/20 Rx Cyclobenzaprine [Flexeril] 10 mg PO BID PRN #0 03/27/20 10/18/20 Rx Metoprolol Tartrate [Lopressor] 12.5 mg PO BID 04/28/20 10/18/20 History oxyCODONE HCL/ACETAMINOPHEN 1 tab PO QID PRN 08/31/20 10/18/20 History [Percocet 5-325 mg] Zolpidem [Ambien] 5 mg PO HS #30 tab 09/02/20 10/18/20 Rx Ergocalciferol [Vitamin D2 (1250 1,250 mcg PO MO 09/26/20 10/18/20 History Mcg = 29160 Iu)] polyethylene glycoL 3350 [Miralax] 17 gm PO DAILY 09/26/20 10/18/20 History Pregabalin [Lyrica] 300 mg PO HS #1 cap 10/09/20 10/18/20 Rx Sulfamethox-Tmp 800-160Mg [Bactrim 1 tab PO Q12HR 10 Days #20 tab 10/09/20 10/18/20 Rx DS 800-160 mg] Docusate [Colace] 100 mg PO DAILY PRN 10/18/20 10/18/20 History Furosemide [Lasix] 20 mg PO DAILY 10/18/20 10/18/20 History lisinopriL [Zestril] 2.5 mg PO DAILY 10/18/20 10/18/20 History Allergies Allergy/AdvReac Type Severity Reaction Status Date / Time No Known Allergies Allergy Verified 10/18/20 17:12 Physical Examination - Vital Signs Vital Signs: Vital Signs Temp Pulse Pulse Pulse Resp BP BP 10/19/20 01:51 97.4 F L 62 16 115/70 10/18/20 20:00 97.5 F L 70 14 130/77 10/18/20 19:50 97.5 F L 70 14 130/77 10/18/20 19:39 65 18 97/59 10/18/20 18:02 66 18 106/77 10/18/20 17:13 99/66 10/18/20 16:01 18 10/18/20 15:56 98.2 F 65 18 95/67 Pulse Ox 10/19/20 01:51 95 10/18/20 20:00 95 10/18/20 19:50 95 10/18/20 19:39 100 10/18/20 18:02 93 L 10/18/20 17:13 97 10/18/20 16:01 10/18/20 15:56 96 Intake and Output 10/18/20 10/19/20 10/19/20 22:59 06:59 14:59 Output Total 600 Balance -600 Output: Urine 600 Other: Voiding Method Urinal # Voids 1 1 Weight 117.934 kg GENERAL: The patient is lying in bed and is not in acute distress. CHEST: The heart rate is regular rate rhythm. No murmurs to auscultation. No carotid bruit bilaterally. LUNG: Clear to auscultation bilaterally no wheezing noted throughout. Not labored breathing. ABDOMEN/GI: Bowel sounds present in all 4 quadrants. No tenderness to palpation throughout. NEUROLOGICAL: Higher mental function: The patient is awake, alert, oriented to self, place and time. Patient is following commands. No aphasia and no neglect. Cranial nerves: The pupils are round, equal and reactive to light and accommodation. Visual vital are full to confrontation throughout. Extraocular movement is intact no nystagmus is noted. Facial sensation is normal to touch throughout. The facial strength is normal throughout. Hearing is normal bilaterally to hand rub. Tongue is midline and moved [id number] without any difficulty. No dysarthria is noted. Shoulder shrug is normal bilaterally. Motor: Gait is deferred. The strength is 5 over 5 throughout. Normal tone and bulk. Cerebellum: Normal finger to nose bilaterally. Sensation: Sensation is decreased from mid-calf region all way down bilaterally. Reflexes (right/left): 2+ uppers and 0 in lowers (has bilateral knee replacement). Plantars are downgoing bilaterally. Results Coagulation study: PT of 12.7, INR 1.2, PTT of 26.2. Urinalysis is negative for urinary tract infection. Influenza A and B are nondetected SARS COV2 PCR is nondetected - Laboratory Findings CBC and BMP: 10/18/20 16:50 10/18/20 16:50 Abnormal Lab Findings: Abnormal Labs 10/18/20 10/18/20 10/18/20 16:50 16:50 16:50 Hgb 8.8 L Hct 33.3 L MCV 75.9 L MCH 20.1 L MCHC 26.5 L RDW 20.6 H PT 12.7 H INR 1.2 H ABG pCO2 ABG pO2 ABG HCO3 ABG Total CO2 ABG O2 Saturation Sodium 135 L Potassium 5.3 H Carbon Dioxide 33 H Urine Blood Urine RBC Urine Opiates Screen Ur Oxycodone Screen U Benzodiazepines Scrn 10/18/20 10/18/20 17:48 17:59 Hgb Hct MCV MCH MCHC RDW PT INR ABG pCO2 56 H ABG pO2 75 L ABG HCO3 31 H ABG Total CO2 33 H ABG O2 Saturation 93.4 L Sodium Potassium Carbon Dioxide Urine Blood Trace H Urine RBC 7 H Urine Opiates Screen Detected H Ur Oxycodone Screen Detected H U Benzodiazepines Scrn Detected H Assessment and Plan Assessment: Episode of unresponsive with, convulsion and an urinary incontinence seem like s eizure (per he has these episodes while asleep for the past 2 years). I cannot rule out REM behavioral disorder but yesterday episode happened during the afternoon and had prior episode in past that happened during the day.. Also component of Altered mental status due to hypoxic respiratory failure (with ABG PO2 of 75 and PCO2 56) from seizure also component of medication effect (positive for opiates, oxycodone and benzodiazepine), is on Morphine pump---mentation improved Acute on chronic microcytic anemia Neuropathy. Atrial fibrillation Hypertension Hyperlipidemia Plan: I ordered a routine EEG. I will load the patient with Keppra 1500mg once then will start him on Keppra 750mg 1 tab bid (higher dose because of body weight). Also recommend patient to get a prolonged ambulatory EEG as outpatient (especially since these episode happen during night). Recommend also a sleep study and echo be done as an outpatient. If the routine EEG and a prolonged EEG and possibly even up with a moderate the is recommended for my side does not confirm seizure but rather REM behavioral does then would recommend stopping Keppra. I placed patient on seizure precaution and pad. I ordered MRI Brain w/ and w/o seizure protocol. Neuro checks q4 hours. I ordered TSH, vitamin B12, folate level, Vitamin B6 regarding any revesible causes of neuropathy. He stated he had HbA1c and was told normal. Recommend avoiding any narcotic/opiate or sedative that would affect the patient's neurological examination. Pulmonary team is consulted. Regarding this history of atrial fibrillation will defer the management to the primary team. If the primary team does not feel anticoagulation suitable than possibly consider aspirin but again we'll defer the decision up to them. Will defer the rest of medical management the primary team. Upon discharge the patient needs to follow-up with a neurologist as outpatient within 1-2 weeks. The plan is discussed with the patient as well as the patient's via phone. Thank you for the consultation. Alfredo Gomez MD Neuro-Hospitalist Time with Patient: Greater than 30
[2020-10-19] MEDS: SULFAMETHOX-TMP 800-160MG 1 EACH TAB PO SCH ×2 (11:00→21:02)
[2020-10-19] MEDS ORDERED: CYCLOBENZAPRINE 10 MG TAB PO PRN (11:04)
[2020-10-19] MEDS ORDERED: oxyCODONE-APAP 5-325MG 1 EACH TAB PO PRN (11:04)
[2020-10-19] MEDS: allopurinoL 300 MG TAB PO SCH (11:55)
[2020-10-19] MEDS: polyethylene glycoL 3350 17 GM POWD.PACK PO SCH (11:55)
[2020-10-19] MEDS: ESCITALOPRAM 10 MG TAB PO SCH (11:55)
--- NOTE | 2020-10-19 13:41 | P.CNPUL ---
History of Present Illness Consult date: 10/19/20 Requesting physician: Chavez Pedraza Reason for consult: dyspnea Chief complaint: Altered mental status History of present illness: This is a very pleasant 55-year-old gentleman with a known history of aspiration pneumonias with a history of esophageal stenosis/strictures and previous esophageal dilatation. He also has a history of morbid obesity, previous gastric sleeve, atrial fibrillation, CVA, hypertension, chronic back pain, diabetes mellitus type 2. He has had recent admissions here for aspiration pneumonias, sputum positive for Klebsiella pneumoniae, discharged last on 10/10/2020. He was brought in again yesterday after being found on his floor having convulsions according to his family. He states he woke up yesterday and was doing fine he was watching TV. His had left for work. His daughter came home and found him on the floor. He has no recollection of the day ye sterday. He remembers getting to the emergency room. He is seen in consultation on the regular medical floor. He is currently sitting up in bed. Awake and alert and oriented 3. States he's feeling fine. Computed tomography scan of the brain revealed no acute intracranial process. Chest x-ray revealed some questionable right upper lobe infiltrate. Arterial blood gases revealed a pO2 75, pCO2 56, pH 7.36. Performed on 28% FiO2. White count 9.1. Hemoglobin 8.8. White count 135. Potassium 5.3. Creatinine 1.02. Influenza screen negative. Coronavirus screen negative. Urine drug screen was positive for opiates, oxycodone, benzodiazepines. He remains afebrile. Hemodynamically sta ble. O2 saturation 95% on 2 L/m per nasal cannula. Review of Systems REVIEW OF SYSTEMS: CONSTITUTIONAL: Altered mental status of unclear etiology. Denies any recent significant weight loss or weight gain. EYES: Denies change in vision. EARS, NOSE, MOUTH, THROAT: Denies headaches, denies sore throat. CARDIOVASCULAR: Denies chest pain, palpitations or syncopal episodes. RESPIRATORY: Denies shortness of breath, cough, congestion or hemoptysis. GASTROINTESTINAL: Denies change in appetite, denies abdominal pain GENITOURINARY: Denies hematuria, denies infections. MUSKULOSKELETAL: Denies pain, denies swelling. INTEGUMENTARY: Denies rash, denies eczema. NEUROLOGICAL: Cannot recall yesterday's events, memory loss, no recent seizure activity. PSYCHIATRIC: Denies anxiety, denies depression. HEMATOLOGIC/LYMPHATIC: Denies anemia, denies enlarged lymph nodes. Past Medical History Past Medical History: Atrial Fibrillation, COPD, CVA/TIA, GERD/Reflux, Hyperlipidemia, Hypertension, Osteoarthritis (OA), Pneumonia, Seizure Disorder, Sleep Apnea/CPAP/BIPAP Additional Past Medical History / Comment(s): hiatal hernia, gout, neuropathy marta legs and feet- states feet are numb, some numbness in legs & tingling in hands., chronic back pain., constipation., dysphagia-hx of EGD with dilation, chronic esophogeal stenosis. Last October 2019, states frequent pneumonia & not sure why, recent admission for History of Any Multi-Drug Resistant Organisms: CRE, ESBL Date of last positivie culture/infection: 09/28/20 ESBL Klebsiella MDRO Source:: Sputum Past Surgical History: Back Surgery, Bariatric Surgery, Bowel Resection, Heart Catheterization, Joint Replacement, Orthopedic Surgery Additional Past Surgical History / Comment(s): PAIN PUMP IMPLANTED 07/17/18, HX GASTRIC SLEEVE AND . BILATERAL KNEE arthroscopy, BILATERAL HIP replacement, LEFT SHOULDER replacement, LEFT ACHILES TENDON SX., RIGHT BIG TOE took piece out, echocardiolgram, spinal fusion, EGD with dilation., STATES HX OF PNEUMONIA WITH LUNG SURGERY., REPAIR OF HIATAL HERNIA & LYSIS OF ADHESIONS Past Anesthesia/Blood Transfusion Reactions: No Reported Reaction Past Psychological History: Anxiety, Depression Additional Psychological History / Comment(s): Pt resides with his spouse, daughter and in laws. He uses a walker to ambulate. He does not drive, his spouse takes him to appts. Smoking Status: Former smoker Past Alcohol Use History: None Reported Additional Past Alcohol Use History / Comment(s): Pt started smoking in 1985 and quit in 2018. Past Drug Use History: None Reported - Past Family History Father Family Medical History: Cancer Additional Family Medical History / Comment(s): lung Mother Family Medical History: Coronary Artery Disease (CAD) Additional Family Medical History / Comment(s): . Medications and Allergies Home Medications Medication Instructions Recorded Confirmed Type Allopurinol [Zyloprim] 300 mg PO DAILY 06/04/16 10/18/20 History Escitalopram [Lexapro] 10 mg PO DAILY 06/04/16 10/18/20 History Omeprazole 40 mg PO BID #60 cap 07/06/19 10/18/20 Rx Cyclobenzaprine [Flexeril] 10 mg PO BID PRN #0 03/27/20 10/18/20 Rx Metoprolol Tartrate [Lopressor] 12.5 mg PO BID 04/28/20 10/18/20 History oxyCODONE HCL/ACETAMINOPHEN 1 tab PO QID PRN 08/31/20 10/18/20 History [Percocet 5-325 mg] Zolpidem [Ambien] 5 mg PO HS #30 tab 09/02/20 10/18/20 Rx Ergocalciferol [Vitamin D2 (1250 1,250 mcg PO MO 09/26/20 10/18/20 History Mcg = 23177 Iu)] polyethylene glycoL 3350 [Miralax] 17 gm PO DAILY 09/26/20 10/18/20 History Pregabalin [Lyrica] 300 mg PO HS #1 cap 10/09/20 10/18/20 Rx Sulfamethox-Tmp 800-160Mg [Bactrim 1 tab PO Q12HR 10 Days #20 tab 10/09/20 10/18/20 Rx DS 800-160 mg] Docusate [Colace] 100 mg PO DAILY PRN 10/18/20 10/18/20 History Furosemide [Lasix] 20 mg PO DAILY 10/18/20 10/18/20 History lisinopriL [Zestril] 2.5 mg PO DAILY 10/18/20 10/18/20 History Allergies Allergy/AdvReac Type Severity Reaction Status Date / Time No Known Allergies Allergy Verified 10/18/20 17:12 Physical Exam Vitals: Vital Signs Temp Pulse Pulse Pulse Resp BP BP 10/19/20 01:51 97.4 F L 62 16 115/70 10/18/20 20:00 97.5 F L 70 14 130/77 10/18/20 19:50 97.5 F L 70 14 130/77 10/18/20 19:39 65 18 97/59 10/18/20 18:02 66 18 106/77 10/18/20 17:13 99/66 10/18/20 16:01 18 10/18/20 15:56 98.2 F 65 18 95/67 Pulse Ox 10/19/20 01:51 95 10/18/20 20:00 95 10/18/20 19:50 95 10/18/20 19:39 100 10/18/20 18:02 93 L 10/18/20 17:13 97 10/18/20 16:01 10/18/20 15:56 96 Intake and Output 10/18/20 10/19/20 10/19/20 22:59 06:59 14:59 Intake Total 100 Output Total 600 500 Balance -600 -400 Intake: Oral 100 Output: Urine 600 500 Other: Voiding Method Urinal # Voids 1 1 Weight 117.934 kg GENERAL EXAM: Alert, oriented 3, very pleasant 55-year-old gentleman, on 2 L nasal cannula, comfortable in no apparent distress. HEAD: Normocephalic. EYES: Normal reaction of pupils, equal size. NOSE: Clear with pink turbinates. THROAT: No erythema or exudates. NECK: No masses, no JVD. CHEST: No chest wall deformity. LUNGS: Equal air entry with no crackles, wheeze, rhonchi or dullness. CVS: S1 and S2 normal with no audible murmur, regular rhythm. ABDOMEN: No hepatosplenomegaly, normal bowel sounds, no guarding or rigidity. SPINE: No scoliosis or deformity SKIN: No rashes CENTRAL NERVOUS SYSTEM: No focal deficits, tone is normal in all 4 extremities. EXTREMITIES: There is no peripheral edema. No clubbing, no cyanosis. Peripheral pulses are intact. Results - Laboratory Findings CBC and BMP: 10/18/20 16:50 10/18/20 16:50 ABG ABG pH 7.36 (7.35-7.45) 10/18/20 17:48 ABG pCO2 56 mmHg (35-45) H 10/18/20 17:48 ABG pO2 75 mmHg (83-108) L 10/18/20 17:48 ABG O2 Saturation 93.4 % (94-97) L 10/18/20 17:48 PT/INR, D-dimer PT 12.7 sec (9.0-12.0) H 10/18/20 16:50 INR 1.2 (<1.2) H 10/18/20 16:50 Abnormal lab findings: Abnormal Labs 10/18/20 10/18/20 10/18/20 16:50 16:50 16:50 Hgb 8.8 L Hct 33.3 L MCV 75.9 L MCH 20.1 L MCHC 26.5 L RDW 20.6 H PT 12.7 H INR 1.2 H ABG pCO2 ABG pO2 ABG HCO3 ABG Total CO2 ABG O2 Saturation Sodium 135 L Potassium 5.3 H Carbon Dioxide 33 H Urine Blood Urine RBC Urine Opiates Screen Ur Oxycodone Screen U Benzodiazepines Scrn 10/18/20 10/18/20 17:48 17:59 Hgb Hct MCV MCH MCHC RDW PT INR ABG pCO2 56 H ABG pO2 75 L ABG HCO3 31 H ABG Total CO2 33 H ABG O2 Saturation 93.4 L Sodium Potassium Carbon Dioxide Urine Blood Trace H Urine RBC 7 H Urine Opiates Screen Detected H Ur Oxycodone Screen Detected H U Benzodiazepines Scrn Detected H - Diagnostic Findings Chest x-ray: image reviewed Assessment and Plan Assessment: 1 Altered mental status of unclear etiology, possibly related to polypharmacy 2 Urine drug screen positive for opiates, oxycodone, benzodiazepines 3 History of acute hypoxic respiratory failure secondary to aspiration pneumonias. 4 History of esophageal strictures with previous esophageal dilatation 5 Chronic anemia 6 Morbid obesity previous gastric sleeve placement in December 2019 7 Paroxysmal atrial fibrillation 8 History of CVA 9 Hypertension 10 History of chronic back pain 11 Diabetes mellitus 12 Former chronic tobacco dependence Plan: The patient was seen and evaluated by Dr. Gomez Chest x-ray and labs reviewed Stable from the pulmonary standpoint EEG, MRI of the brain pending We will continue to follow and make further recommendations based on his clinical status I, the cosigning physician, performed a history & physical examination of the patient. Lungs sounds are clear. Maintaining good O2 saturations in the 90s on 2 L/m per nasal cannula. I discussed the assessment and plan of care with my nurse practitioner, Sherrill Sun. I attest to the above consultation as dictated by her. Time with Patient: Greater than 30
--- NOTE | 2020-10-19 18:35 | EEG ---
ELECTROENCEPHALOGRAM REPORT DATE OF SERVICE: 10/19/2020. CLINICAL HISTORY: This is a 55-year-old gentleman who presented to the ED because he was found on the floor unresponsive with convulsion. This video EEG is obtained to evaluate for seizure and epileptiform activity. RELEVANT MEDICATION: Patient is on Keppra. EEG TYPE: This 21-channel EEG is performed with video using the 10/20 electrode placement system. DESCRIPTION: Wakefulness and drowsiness are obtained. During wakefulness, there is a posterior- dominant rhythm of low to moderate voltage, well modulated, of 7 to 7.5 hertz activity. During drowsiness there is slowing and attenuation of background activity. There was no physiological stage II sleep. There is no focal slowing. Interictal and ictal: During the study the patient had right hand movement in which he will close his hands or he will have picking movement, such as hand automatism and would move his hands to the right chest. He had these episodes a few times without any obvious EEG correlated. There is no epileptiform discharge or seizure during the study. ACTIVATION PROCEDURES Photic stimulation did not evoke a posterior driving response. Hyperventilation is not performed. CLINICAL INTERPRETATION: This is an abnormal routine EEG. Background slowing is suggestive of mild encephalopathy. There are no focal slowing, epileptiform discharges or seizure during the study. During the study the patient had a right hand automatisms without any EEG correlation of a seizure. Clinical correlation is recommended. RECOMMENDATION: I recommend a long-term EEG and this can be done as an outpatient. GALINA / JUDY: [id number] / JES
[2020-10-19] MEDS: PREGABALIN 75 MG CAP PO SCH (20:27)
[2020-10-19] MEDS ORDERED: ZOLPIDEM 5 MG TAB PO SCH (21:00)
[2020-10-19] MEDS ORDERED: PREGABALIN 100 MG CAP PO SCH (21:00)
--- NOTE | 2020-10-19 22:32 | P.HPIM ---
History of Present Illness H&P Date: 10/19/20 Chief Complaint: Altered mental status History of presenting complaint: This is a very pleasant 55-year-old patient of Dr. Alexandrea Ang. stable medical conditions include hypertension, , gout, chronic bilateral hip pain, peripheral neuropathy. Atrial fibrillation, gastric [place] [address] Zarate. 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 Dumont. baseline - walk slowly because of peripheral neuropathy. In August 2018 patient had EGD done that showed severe erosive esophagitis with esophageal ulcer. readmitted July 05 2019 underwent balloon dilatation of 10-7 mm done. admitted July 22 and underwent EGD by Dr. Carbajal. Found-severe esophagitis and distal esophageal obstruction. A 10 mm dilatation was carried out. Retained food was extracted. Found to have possible aspiration pneumonia bilateral, treat with IV Zosyn-discharge. Dr. Carbajal discharged on Augmentin on July 26. On December 11 and I&D of the right scrotal abscess. - Shobha's gangrene. In December 2019- small bowel obstruction and recurrent hypoglycemia and was then transferred to [facility]. Patient recently had couple of admissions with pneumonia not requiring 2 L of oxygen. Recent admissions dose of Lyrica was cut back up causing patient to be somnolent. Patient now admitted following the noted that patient is becoming more sleepy during the daytime. And also noticed some jerking movements. Patient states that he at least needs in the daytime and not able to sleep at night even though he takes medications including Lyrica, Ambien. There was question about seizure activity. Otherwise patient breathing is stable. Oral intake is fair. Review of systems: GEN.: None EYES: None HEENT: None NECK: None RESPIRATORY: As above CARDIOVASCULAR: None GASTROINTESTINAL: Reflux GENITOURINARY: None MUSCULOSKELETAL: Some pains LYMPHATICS: None HEMATOLOGICAL: None PSYCHIATRY: None NEUROLOGICAL: Does use a walker. Trouble sleeping Past medical history to include: Hypertension, gout, peripheral neuropathy, atrial fibrillation, gastric sleeve in 2013, gastric-gastric fistula repair, severe esophagitis, esophageal stenosis dilated, Social history: Smoke one half a pack a day for about 38 years-stopped 2017. . No alcohol. Physical examination: VITAL SIGNS: 98.2, 65, 18, 95 x 67, 96% on 2 L GENERAL: BMI 32.5, reclining in bed, comfortable EYES: Pupils equal. Conjunctiva normal. HEENT: External appearance of nose and ears normal, oral cavity grossly normal. NECK: JVD unable to assess; masses not palpable. HEART: First and second heart sounds are normal; no edema. LUNGS: Respiratory rate increased, some coarse crackles in the bases ABDOMEN: Soft, nontender, liver spleen not palpable, no masses palpable. Left abdominal wall has a pain pump PSYCH: Alert and oriented x3; mood and affect anxious NEUROLOGICAL: Cranial nerves grossly intact; no facial asymmetry, power and sensation grossly intact. LYMPHATICS: No lymph nodes palpable in the axilla and neck INVESTIGATIONS, reviewed in the clinical context: WBC 9.1 hemoglobin 8.8 platelets 367 potassium 5.3 creatinine 1.02 Troponin I less than 0.012 Urine drug screen: Positive for opiates, oxycodone, benzodiazepine Influenza type A, type B, RSV, Coronavirus PCR: Not detected Assessment and plan: -Patient bit her with some altered mental status and some sleepy behavior. Also noted to have some jerky movements. At home by the . This could be the fact that patient sleeps during the daytime unable to sleep at night and takes medicines including Ambien at night. This could be a disturbance of his sleep cycle. Of course seizure activity needs to be ruled out. -Chronic hypoxic respiratory failure due to COPD Supplement oxygen - COPD in a ex-smoker Continue with DuoNeb -History of recurrent esophageal stricture with repeat dilatation -History of paraesophageal repair and history of sleeve gastrectomy -Essential hypertension Continue with Lopressor -Primary osteoarthritis Use Percocet when necessary -Chronic Gout Continue with allopurinol -Idiopathic peripheral neuropathy Continue with Lyrica -Chronic back pain with the pain pump -Anemia of chronic disease -Paroxysmal atrial fibrillation, currently in sinus rhythm continue with beta raf. -Chronic insomnia Continue with Ambien -Chronic GERD Continue with omeprazole Care was discussed with Dr. Gomez from neurology. And the patient. We'll proceed to decrease her dose of Lyrica to 150 mg at night. Also DC Ambien. Patient empirically has been put on Keppra by neurology. Further course of action depending on EEG results. Past Medical History Past Medical History: Atrial Fibrillation, COPD, CVA/TIA, GERD/Reflux, Hyperlipidemia, Hypertension, Osteoarthritis (OA), Pneumonia, Seizure Disorder, Sleep Apnea/CPAP/BIPAP Additional Past Medical History / Comment(s): hiatal hernia, gout, neuropathy marta legs and feet- states feet are numb, some numbness in legs & tingling in hands., chronic back pain., constipation., dysphagia-hx of EGD with dilation, chronic esophogeal stenosis. Last October 2019, states frequent pneumonia & not sure why, recent admission for History of Any Multi-Drug Resistant Organisms: CRE, ESBL Date of last positivie culture/infection: 09/28/20 ESBL Klebsiella MDRO Source:: Sputum Past Surgical History: Back Surgery, Bariatric Surgery, Bowel Resection, Heart Catheterization, Joint Replacement, Orthopedic Surgery Additional Past Surgical History / Comment(s): PAIN PUMP IMPLANTED 07/17/18, HX GASTRIC SLEEVE AND . BILATERAL KNEE arthroscopy, BILATERAL HIP replacement, LEFT SHOULDER replacement, LEFT ACHILES TENDON SX., RIGHT BIG TOE took piece out, echocardiolgram, spinal fusion, EGD with dilation., STATES HX OF PNEUMONIA WITH LUNG SURGERY., REPAIR OF HIATAL HERNIA & LYSIS OF ADHESIONS Past Anesthesia/Blood Transfusion Reactions: No Reported Reaction Past Psychological History: Anxiety, Depression Additional Psychological History / Comment(s): Pt resides with his spouse, daughter and in laws. He uses a walker to ambulate. He does not drive, his spouse takes him to appts. Smoking Status: Former smoker Past Alcohol Use History: None Reported Additional Past Alcohol Use History / Comment(s): Pt started smoking in 1985 and quit in 2017. Past Drug Use History: None Reported - Past Family History Father Family Medical History: Cancer Additional Family Medical History / Comment(s): lung Mother Family Medical History: Coronary Artery Disease (CAD) Additional Family Medical History / Comment(s): . Medications and Allergies Home Medications Medication Instructions Recorded Confirmed Type Allopurinol [Zyloprim] 300 mg PO DAILY 06/04/16 10/18/20 History Escitalopram [Lexapro] 10 mg PO DAILY 06/04/16 10/18/20 History Omeprazole 40 mg PO BID #60 cap 07/06/19 10/18/20 Rx Cyclobenzaprine [Flexeril] 10 mg PO BID PRN #0 03/27/20 10/18/20 Rx Metoprolol Tartrate [Lopressor] 12.5 mg PO BID 04/28/20 10/18/20 History oxyCODONE HCL/ACETAMINOPHEN 1 tab PO QID PRN 08/31/20 10/18/20 History [Percocet 5-325 mg] Zolpidem [Ambien] 5 mg PO HS #30 tab 09/02/20 10/18/20 Rx Ergocalciferol [Vitamin D2 (1250 1,250 mcg PO MO 09/26/20 10/18/20 History Mcg = 97620 Iu)] polyethylene glycoL 3350 [Miralax] 17 gm PO DAILY 09/26/20 10/18/20 History Pregabalin [Lyrica] 300 mg PO HS #1 cap 10/09/20 10/18/20 Rx Sulfamethox-Tmp 800-160Mg [Bactrim 1 tab PO Q12HR 10 Days #20 tab 10/09/20 10/18/20 Rx DS 800-160 mg] Docusate [Colace] 100 mg PO DAILY PRN 10/18/20 10/18/20 History Furosemide [Lasix] 20 mg PO DAILY 10/18/20 10/18/20 History lisinopriL [Zestril] 2.5 mg PO DAILY 10/18/20 10/18/20 History Allergies Allergy/AdvReac Type Severity Reaction Status Date / Time No Known Allergies Allergy Verified 10/18/20 17:12 Physical Exam Vitals: Vital Signs Temp Pulse Pulse Pulse Resp BP BP 10/19/20 01:51 97.4 F L 62 16 115/70 10/18/20 20:00 97.5 F L 70 14 130/77 10/18/20 19:50 97.5 F L 70 14 130/77 10/18/20 19:39 65 18 97/59 10/18/20 18:02 66 18 106/77 10/18/20 17:13 99/66 10/18/20 16:01 18 10/18/20 15:56 98.2 F 65 18 95/67 Pulse Ox 10/19/20 01:51 95 10/18/20 20:00 95 10/18/20 19:50 95 10/18/20 19:39 100 10/18/20 18:02 93 L 10/18/20 17:13 97 10/18/20 16:01 10/18/20 15:56 96 Intake and Output 10/18/20 10/19/20 10/19/20 22:59 06:59 14:59 Intake Total 100 Output Total 600 Balance -600 100 Intake: Oral 100 Output: Urine 600 Other: Voiding Method Urinal # Voids 1 1 Weight 117.934 kg Results CBC & Chem 7: 10/18/20 16:50 10/18/20 16:50 Labs: Abnormal Lab Results - Last 24 Hours (Table) 10/18/20 10/18/20 10/18/20 Range/Units 16:50 16:50 16:50 Hgb 8.8 L (13.0-17.5) gm/dL Hct 33.3 L (39.0-53.0) % MCV 75.9 L (80.0-100.0) fL MCH 20.1 L (25.0-35.0) pg MCHC 26.5 L (31.0-37.0) g/dL RDW 20.6 H (11.5-15.5) % PT 12.7 H (9.0-12.0) sec INR 1.2 H (<1.2) ABG pCO2 (35-45) mmHg ABG pO2 (83-108) mmHg ABG HCO3 (21-25) mmol/L ABG Total CO2 (19-24) mmol/L ABG O2 Saturation (94-97) % Sodium 135 L (137-145) mmol/L Potassium 5.3 H (3.5-5.1) mmol/L Carbon Dioxide 33 H (22-30) mmol/L Urine Blood (Negative) Urine RBC (0-5) /hpf Urine Opiates Screen (NotDetected) Ur Oxycodone Screen (NotDetected) U Benzodiazepines Scrn (NotDetected) 10/18/20 10/18/20 Range/Units 17:48 17:59 Hgb (13.0-17.5) gm/dL Hct (39.0-53.0) % MCV (80.0-100.0) fL MCH (25.0-35.0) pg MCHC (31.0-37.0) g/dL RDW (11.5-15.5) % PT (9.0-12.0) sec INR (<1.2) ABG pCO2 56 H (35-45) mmHg ABG pO2 75 L (83-108) mmHg ABG HCO3 31 H (21-25) mmol/L ABG Total CO2 33 H (19-24) mmol/L ABG O2 Saturation 93.4 L (94-97) % Sodium (137-145) mmol/L Potassium (3.5-5.1) mmol/L Carbon Dioxide (22-30) mmol/L Urine Blood Trace H (Negative) Urine RBC 7 H (0-5) /hpf Urine Opiates Screen Detected H (NotDetected) Ur Oxycodone Screen Detected H (NotDetected) U Benzodiazepines Scrn Detected H (NotDetected)
[2020-10-20] MEDS: PANTOPRAZOLE 40 MG TABLET PO SCH ×2 (08:45→20:20)
[2020-10-20] MEDS: allopurinoL 300 MG TAB PO SCH (08:45)
[2020-10-20] MEDS: FUROSEMIDE 20 MG TAB PO SCH (08:45)
[2020-10-20] MEDS: METOPROLOL TARTRATE 12.5 MG TAB PO SCH ×2 (08:45→20:20)
[2020-10-20] MEDS: ESCITALOPRAM 10 MG TAB PO SCH (08:45)
[2020-10-20] MEDS: polyethylene glycoL 3350 17 GM POWD.PACK PO SCH (08:46)
--- NOTE | 2020-10-20 13:21 | P.PN ---
Subjective Progress Note Date: 10/20/20 Principal diagnosis: Altered mental status This is a very pleasant 55-year-old gentleman with a known history of aspiration pneumonias with a history of esophageal stenosis/strictures and previous esophageal dilatation. He also has a history of morbid obesity, previous gastric sleeve, atrial fibrillation, CVA, hypertension, chronic back pain, diabetes mellitus type 2. He has had recent admissions here for aspiration pneumonias, sputum positive for Klebsiella pneumoniae, discharged last on 10/10/2020. He was brought in again yesterday after being found on his floor having convulsions according to his family. He states he woke up yesterday and was doing fine he was watching TV. His had left for work. His daughter came home and found him on the floor. He has no recollection of the day yesterday. He remembers getting to the emergency room. He is seen in [facility] on the regular medical floor. He is currently sitting up in bed. Awake and alert and oriented 3. States he's feeling fine. Computed tomography scan of the brain revealed no acute intracranial process. Chest x-ray revealed some questionable right upper lobe infiltrate. Arterial blood gases revealed a pO2 75, pCO2 56, pH 7.36. Performed on 28% FiO2. White count 9.1. Hemoglobin 8.8. White count 135. Potassium 5.3. Creatinine 1.02. Influenza screen negative. Coronavirus screen negative. Urine drug screen was positive for opiates, oxycodone, benzodiazepines. He remains afebrile. Hemodynamically stable. O2 saturation 95% on 2 L/m per nasal cannula. Patient was reevaluated today on 10/10/2020, he remains on the regular medical floor, patient is doing great. Awake, alert oriented 3, no gross focal neurologic deficits whatsoever. He did have a positive urine drug screen. And he was seen by neurology on consultation, I believe he is scheduled to have an EEG today. Patient is on 2 L nasal cannula with O2 saturation of 94%. He is afebrile. And he is hemodynamically stable. Screening for COVID-19 was negative. EEG results are pending. Initial report, preliminary questioned mild encephalopathy, there was no evidence of focal slowing or epileptiform discha rges or seizure during the study. Chest x-ray on admission showed a limited the right upper lobe infiltrate and the patient is being treated for presumptive aspiration pneumonia. Objective - Vital Signs Vital signs: Vital Signs Temp 98 F 10/20/20 07:00 Pulse 69 10/20/20 07:00 Resp 17 10/20/20 07:00 BP 99/63 10/20/20 08:42 Pulse Ox 94 L 10/20/20 07:00 Intake & Output 10/19/20 10/20/20 10/20/20 18:59 06:59 18:59 Intake Total 100 400 Output Total 800 500 400 Balance -700 -500 0 Intake: Oral 100 400 Output: Urine 800 500 400 Other: Voiding Method Urinal Urinal Urinal # Voids 2 - Exam GENERAL EXAM: Revealed 55-year-old -[place] male in no distress. On 2 L nasal cannula. HEAD: Normocephalic. Atraumatic. EENT: PERRLA, EOMI, anicteric, no neck masses, no JVD, no stridor. CHEST: No chest wall deformity. Symmetrical chest expansion. LUNGS: Clear breath sounds bilaterally no crackles or rhonchi or wheezes. CVS: S1 and S2 normal with no audible murmur, regular rhythm. ABDOMEN: Soft nontender no megaly no rebound no guarding. SKIN: No rashes CENTRAL NERVOUS SYSTEM: Alert and oriented 3 focal neurologic deficits. EXTREMITIES: No clubbing edema or cyanosis, good pulses bilaterally. - Labs CBC & Chem 7: 10/18/20 16:50 10/18/20 16:50 Labs: Abnormal Lab Results - Last 24 Hours (Table) 10/19/20 Range/Units 11:20 TSH 0.310 L (0.350-5.500) uIU/mL Assessment and Plan Assessment: Impression: Altered mental status most likely secondary to polypharmacy. And drug screen was positive for opiates oxycodone and benzodiazepines. Seizure disorder is not entirely ruled out, and that is up to the neurologist to determine whether the patient truly had a seizure. If he did, possibly related to his positive drug screen. Aspiration pneumonia, continue antibiotics. Acute hypoxic respiratory failure secondary to aspiration pneumonia History of esophageal stricture requiring esophageal dietitian. Chronic anemia Paroxysmal atrial fibrillation Benign essential hypertension Type 2 diabetes Ex-smoker. Recommendation: Chest x-ray was reviewed, quite concerning for worsening right upper lobe pneumonia hence we'll start the patient on Zosyn. Eventually transitioned to Augmentin orally. Continue present treatment plan as outlined by the neurologist. Titrate oxygen and maintain O2 saturation above 90%. Continue Keppra for now. We'll continue to follow. Time with Patient: Less than 30
--- NOTE | 2020-10-20 16:00 | P.PN ---
Subjective Progress Note Date: 10/20/20 The patient was seen at bedside and he stated that he is doing fairly well. Denies of the any weakness, numbness. Per the patient nurse the patient has not had any seizure-like activity. Objective - Vital Signs Vital signs: Vital Signs Temp 98 F 10/20/20 14:50 Pulse 62 10/20/20 14:50 Resp 17 10/20/20 14:50 BP 98/61 10/20/20 14:50 Pulse Ox 98 10/20/20 14:50 Intake & Output 10/19/20 10/20/20 10/20/20 18:59 06:59 18:59 Intake Total 100 400 Output Total 800 500 700 Balance -700 -500 -300 Intake: Oral 100 400 Output: Urine 800 500 700 Other: Voiding Method Urinal Urinal Urinal # Voids 2 - Exam GENERAL: The patient is lying in bed and is not in acute distress. NEUROLOGICAL: Higher mental function: The patient is awake, alert, oriented to self, place and time. Patient is following commands. No aphasia and no neglect. Cranial nerves: The pupils are round, equal and reactive to light and accommodation. Visual vital are full to confrontation throughout. Extraocular movement is intact no nystagmus is noted. Facial sensation is normal to touch throughout. The facial strength is normal throughout. Hearing is normal bilaterally to hand rub. Tongue is midline and moved [id number] without any difficulty. No dysarthria is noted. Shoulder shrug is normal bilaterally. Motor: Gait is deferred. The strength is 5 over 5 throughout. Normal tone and bulk. Cerebellum: Normal finger to nose bilaterally. Sensation: Sensation is decreased from mid-calf region all way down bilaterally. Reflexes (right/left): 2+ uppers and 0 in lowers (has bilateral knee replacement). Plantars are downgoing bilaterally. - Labs CBC & Chem 7: 10/18/20 16:50 10/18/20 16:50 Labs: Abnormal Lab Results - Last 24 Hours (Table) 10/19/20 Range/Units 11:20 TSH 0.310 L (0.350-5.500) uIU/mL Assessment and Plan Assessment: Episode of unresponsive with, convulsion and an urinary incontinence seem like seizure (per he has these episodes while asleep for the past 2 years). I cannot rule out REM behavioral disorder but yesterday episode happened during the afternoon and had prior episode in past that happened during the day.. Also component of Altered mental status due to hypoxic respiratory failure (with ABG PO2 of 75 and PCO2 56) from seizure also component of medication effect (positive for opiates, oxycodone and benzodiazepine), is on Morphine pump---mentation improved Acute on chronic microcytic anemia Neuropathy. Atrial fibrillation Hypertension Hyperlipidemia Plan: * EEG on 10/19/2020 was an abnormal routine EEG. Tobacco slowing is suggestive of mild encephalopathy. There are no focal slowing, epileptiform discharges or seizure on the EEG. The right hand the movement seen is without clear correlation of seizure on EEG. * TSH is 0.31 which is low and the free T4 is 1.0 which is normal. Vitamin B-12 is 591 the and the folate serum is 16 which are both normal. He stated he had HbA1c and was told normal. Pending Vitamin B6. Recommend further neuropathy work-up as outpatient. * I ordered a prolonged EEG (2.5 hours). * MRI the brain is completed and pending final report. * Continue Keppra 750mg 1 tab bid. * If the prolonged EEG does not show any seizures then I would recommend an overnight prolonged ambulatory EEG to capture these events (especially since the patient has them during the night). * Recommend also a sleep study and echo be done as an outpatient. If the routine EEG and a prolonged EEG and possibly even up with a moderate the is recommended for my side does not confirm seizure but rather REM behavioral does then would recommend stopping Keppra. * Continue seizure precaution and pad. * Continue Neuro checks q4 hours. * Recommend avoiding any narcotic/opiate or sedative that would affect the patient's neurological examination. * Pulmonary team is consulted. * Regarding this history of atrial fibrillation will defer the management to the primary team. If the primary team does not feel anticoagulation suitable than possibly consider aspirin but again we'll defer the decision up to them. * Will defer the rest of medical management the primary team. * If patient has no seizure-like activity by tomorrow he is clear from neurology perspective. Regarding for further seizure work-up: Upon discharge the patient is to follow- up with Dr. Cordero/HÉ[facility] Price, [address], [place] [address], within 1-2 weeks. UPDATE: I was updated By Dr. Cordero that 2.5 hour EEG is normal. MRI Brain report is pending. I reviewed it and do not see acute or subacute stroke. I do not see any mass. There is no further work-up. The plan is discussed with the patient's primary team and his nurse. Alfredo Gomez MD Neuro-Hospitalist Time with Patient: Less than 30
[2020-10-20] MEDS: PIPERACILLIN-TAZOBACTAM 3.375 GM in SODIUM CHLORIDE 0.9% 100 ML IVPB SCH ×2 (16:15→23:35)
--- NOTE | 2020-10-20 19:04 | EEG ---
ELECTROENCEPHALOGRAM REPORT ELECTROENCEPHALOGRAM (EEG) REPORT: TECHNIQUE: This is a report from a continuous/long-term 18-channel digital video EEG performed using the 10/20 international electrode placement system. Please note that this was a prolonged 2-1/2-hour inpatient study. HISTORY: Altered mental status. CURRENT MEDICATIONS: Keppra. FINDINGS: Recording start time: 10/20/2020 at 1310 hours. Recording end time: 10/20/2020 at 1600 hours. EVENTS: During this prolonged 2-1/2-hour EEG, no clinic or electrographic seizures were recorded. BACKGROUND: The background activity consisted to 8 to 9 Hz rhythmic waveforms, symmetric through both posterior quadrants. ACTIVATION Hyperventilation: Not performed. Photic stimulation: Not performed. SLEEP: Stages I and II sleep noted. ABNORMALITIES: None. IMPRESSION: Normal 2-1/2-hour prolonged video EEG. No clinical or electrographic seizures were recorded. No epileptiform activity was present. MMODL / IJN: [id number] /
[2020-10-20] MEDS: PREGABALIN 75 MG CAP PO SCH (20:19)
--- NOTE | 2020-10-20 20:50 | P.PN ---
Progress Note - Text Progress Note Date: 10/20/20 Chief Complaint: Altered mental status History of presenting complaint: This is a very pleasant 55-year-old patient of Dr. Alexandrea Ang. stable medical conditions include hypertension, , gout, chronic bilateral hip pain, peripheral neuropathy. Atrial fibrillation, gastric [place] [address] Zarate. 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 Dumont. baseline - walk slowly because of peripheral neuropathy. In August 2018 patient had EGD done that showed severe erosive esophagitis with esophageal ulcer. readmitted July 05 2019 underwent balloon dilatation of 10-7 mm done. admitted July 22 and underwent EGD by Dr. Carbajal. Found-severe esophagitis and distal esophageal obstruction. A 10 mm dilatation was carried out. Retained food was extracted. Found to have possible aspiration pneumonia bilateral, treat with IV Zosyn-discharge. Dr. Carbajal discharged on Augmentin on July 26. On December 11 and I&D of the right scrotal abscess. - Shobha's gangrene. In December 2019- small bowel obstruction and recurrent hypoglycemia and was then transferred to [facility]. Patient recently had couple of admissions with pneumonia not requiring 2 L of oxygen. Recent admissions dose of Lyrica was cut back up causing patient to be somnolent. Patient now admitted following the noted that patient is becoming more sleepy during the daytime. And also noticed some jerking movements. Patient states that he at least needs in the daytime and not able to sleep at night even though he takes medications including Lyrica, Ambien. There was question about seizure activity. Otherwise patient breathing is stable. Oral intake is fair. Patient started empirically on Keppra by neurology. Initial EEG was negative. Dose of lyrica, was cut back. Ambien was discontinued. Sleep hygiene/cycle was discussed with the patient. Today: Laying in bed. No jerkiness moment reported. Discussed with Dr. Milligan from neurology. Hemoglobin prolonged EEG. To make sure there is no seizure activity. This is scheduled for later today. Review of systems: Was done for constitutional, cardiovascular, GI, pulmonary. relevant finding as above Active Medications Allopurinol (Allopurinol 300 Mg Tab) 300 mg PO DAILY MATT Last Admin: 10/20/20 08:45 Dose: 300 mg Documented by: Cyclobenzaprine HCl (Cyclobenzaprine 10 Mg Tab) 10 mg PO BID PRN PRN Reason: Spasms Last Admin: 10/20/20 20:19 Dose: 10 mg Documented by: Ergocalciferol (Ergocalciferol 1,250 Mcg (50,000 Iu) Capsule) 1,250 mcg PO MO [facility] Escitalopram Oxalate (Escitalopram 10 Mg Tab) 10 mg PO DAILY [facility] Last Admin: 10/20/20 08:45 Dose: 10 mg Documented by: Furosemide (Furosemide 20 Mg Tab) 20 mg PO DAILY [facility] Last Admin: 10/20/20 08:45 Dose: Not Given Documented by: Piperacillin Sod/Tazobactam (Sod 3.375 gm/ Sodium Chloride) 100 mls @ 25 mls/hr IVPB Q8HR [facility] Last Admin: 10/20/20 16:15 Dose: 25 mls/hr Documented by: Levetiracetam (Levetiracetam 750 Mg Tab) 750 mg PO Q12HR [facility] Last Admin: 10/20/20 20:19 Dose: 750 mg Documented by: Lisinopril (Lisinopril 2.5 Mg Tab) 2.5 mg PO DAILY [facility] Last Admin: 10/20/20 08:46 Dose: Not Given Documented by: Metoprolol Tartrate (Metoprolol Tartrate 12.5 Mg Tab) 12.5 mg PO BID [facility] Last Admin: 10/20/20 20:20 Dose: 12.5 mg Documented by: Naloxone HCl (Naloxone 0.4 Mg/Ml 1 Ml Vial) 0.2 mg IV Q2M PRN PRN Reason: Opioid Reversal Oxycodone/Acetaminophen (Oxycodone-Apap 5-325mg 1 Each Tab) 1 each PO QID PRN PRN Reason: Pain Pantoprazole Sodium (Pantoprazole 40 Mg Tablet) 40 mg PO BID [facility] Last Admin: 10/20/20 20:20 Dose: 40 mg Documented by: Polyethylene Glycol (Polyethylene Glycol 3350 17 Gm Powd.Pack) 17 gm PO DAILY [facility] Last Admin: 10/20/20 08:46 Dose: 17 gm Documented by: Pregabalin (Pregabalin 75 Mg Cap) 150 mg PO HS [facility] Last Admin: 10/20/20 20:19 Dose: 150 mg Documented by: Past medical history to include: Hypertension, gout, peripheral neuropathy, atrial fibrillation, gastric sleeve in 2014, gastric-gastric fistula repair, severe esophagitis, esophageal stenosis dilated, Social history: Smoke one half a pack a day for about 38 years-stopped 2018. . No alcohol. Physical examination: VITAL SIGNS: 98, 62, 17, 98/61, 98% on 2 L GENERAL: BMI 32.5, reclining in bed, comfortable EYES: Pupils equal. Conjunctiva normal. NECK: JVD unable to assess; masses not palpable. HEART: First and second heart sounds are normal; no edema. LUNGS: Respiratory rate increased, some coarse crackles in the bases ABDOMEN: Soft, nontender, liver spleen not palpable, no masses palpable. Left abdominal wall has a pain pump PSYCH: Alert and oriented x3; mood and affect anxious INVESTIGATIONS, reviewed in the clinical context: White count B12 591 TSH 0.3 WBC 9.1 hemoglobin 8.8 platelets 367 potassium 5.3 creatinine 1.02 Troponin I less than 0.012 Urine drug screen: Positive for opiates, oxycodone, benzodiazepine Influenza type A, type B, RSV, Coronavirus PCR: Not detected EKG tracing personally reviewed by me-normal sinus rhythm Chest x-ray film personally reviewed by me-possible chronic changes Computed tomography scan brain: Nothing acute Assessment and plan: -Presented some altered mental status and some sleepy behavior. Also noted to have some jerky movements witnessed by At home by the . This could be the fact that patient sleeps during the daytime unable to sleep at night and takes medicines including Ambien at night. This could be a disturbance of his sleep cycle. Of course seizure activity needs to be ruled out. Initial EEG was negative. Lyrica dose was cut back. Ambien discontinued. Patient educated about sleep cycle. -Chronic hypoxic respiratory failure due to COPD Supplement oxygen - COPD in a ex-smoker Continue with DuoNeb -History of recurrent esophageal stricture with repeat dilatation -History of paraesophageal repair and history of sleeve gastrectomy -Essential hypertension Continue with Lopressor -Primary osteoarthritis Use Percocet when necessary -Chronic Gout Continue with allopurinol -Idiopathic peripheral neuropathy Continue with Lyrica -Chronic back pain with the pain pump -Anemia of chronic disease -Paroxysmal atrial fibrillation, currently in sinus rhythm continue with beta raf. -Chronic insomnia Ambien discontinued. Sleep hygiene discussed -Chronic GERD Continue with omeprazole Patient undergo prolonged EEG today. Other medications to continue..
[2020-10-20] MEDS ORDERED: MELATONIN 3 MG TABLET PO PRN (23:19)
[2020-10-21 08:14] VITALS: BP 106/64; PULSE 61; RESP 14; TEMP 98.2
[2020-10-21] MEDS: PIPERACILLIN-TAZOBACTAM 3.375 GM in SODIUM CHLORIDE 0.9% 100 ML IVPB SCH (08:18)
[2020-10-21] MEDS: METOPROLOL TARTRATE 12.5 MG TAB PO SCH (08:19)
[2020-10-21] MEDS: ESCITALOPRAM 10 MG TAB PO SCH (08:19)
[2020-10-21] MEDS: allopurinoL 300 MG TAB PO SCH (08:19)
[2020-10-21] MEDS: PANTOPRAZOLE 40 MG TABLET PO SCH (08:19)
[2020-10-21] MEDS: polyethylene glycoL 3350 17 GM POWD.PACK PO SCH (08:20)
[2020-10-21] MEDS: FUROSEMIDE 20 MG TAB PO SCH (08:24)
--- NOTE | 2020-10-21 08:45 | MR ---
EXAMINATION TYPE: MR brain wo/w con DATE OF EXAM: 10/19/2020 COMPARISON: Prior MRI of brain April 12, 2014. CT brain from yesterday. HISTORY: Convulsions TECHNIQUE: Multiplanar, multisequence images of the brain and brainstem is performed without and with IV contras t, utilizing 12 mL intravenous Gadavist . FINDINGS: Exam slightly suboptimal as images are degraded by patient motion, patient unable to hold s till due to convulsions. Diffusion weighted images demonstrate no evidence of a recent infarct or oth er diffusion abnormality. The ventricular system and cisternal spaces remain normal in size and appea adelso. The brain volume is age appropriate. Some areas of T2 hyperintensity in the deep and perivent ricular white matter show more prominence from 2014 MRI. T2 coronal weighted images show hippocampal gyri are symmetric and felt within normal limits. Midline structures demonstrate normal morphology. The craniocervical junction appears within normal limits. Artifact from fusion hardware in the upper cervical spine is noted. Post contrast images dem onstrate no abnormal enhancement. The dural venous sinuses appear patent. The visualized sinuses are clear and the globes are intact. IMPRESSION: [id number] nonspecific white matter changes. No suspicious enhancement or enhancing masses.
--- NOTE | 2020-10-21 14:27 | P.PN ---
Subjective Progress Note Date: 10/21/20 Principal diagnosis: Altered mental status This is a very pleasant 55-year-old gentleman with a known history of aspiration pneumonias with a history of esophageal stenosis/strictures and previous esophageal dilatation. He also has a history of morbid obesity, previous gastric sleeve, atrial fibrillation, CVA, hypertension, chronic back pain, diabetes mellitus type 2. He has had recent admissions here for aspiration pneumonias, sputum positive for Klebsiella pneumoniae, discharged last on 10/10/2020. He was brought in again yesterday after being found on his floor having convulsions according to his family. He states he woke up yesterday and was doing fine he was watching TV. His had left for work. His daughter came home and found him on the floor. He has no recollection of the day yesterday. He remembers getting to the emergency room. He is seen in [facility] on the regular medical floor. He is currently sitting up in bed. Awake and alert and oriented 3. States he's feeling fine. Computed tomography scan of the brain revealed no acute intracranial process. Chest x-ray revealed some questionable right upper lobe infiltrate. Arterial blood gases revealed a pO2 75, pCO2 56, pH 7.36. Performed on 28% FiO2. White count 9.1. Hemoglobin 8.8. White count 135. Potassium 5.3. Creatinine 1.02. Influenza screen negative. Coronavirus screen negative. Urine drug screen was positive for opiates, oxycodone, benzodiazepines. He remains afebrile. Hemodynamically stable. O2 saturation 95% on 2 L/m per nasal cannula. Patient was reevaluated today on 10/10/2020, he remains on the regular medical floor, patient is doing great. Awake, alert oriented 3, no gross focal neurologic deficits whatsoever. He did have a positive urine drug screen. And he was seen by neurology on consultation, I believe he is scheduled to have an EEG today. Patient is on 2 L nasal cannula with O2 saturation of 94%. He is afebrile. And he is hemodynamically stable. Screening for COVID-19 was negative. EEG results are pending. Initial report, preliminary questioned mild encephalopathy, there was no evidence of focal slowing or epileptiform discha rges or seizure during the study. Chest x-ray on admission showed a limited the right upper lobe infiltrate and the patient is being treated for presumptive aspiration pneumonia. She is seen today 10/21/2020 and follow-up on the regular medical floor. He is currently awake and alert oriented 3. Denies any shortness of breath, cough or congestion. No headaches. No seizure activity. Maintaining O2 saturations in the 90s on room air. He's been afebrile. Hemodynamically stable. EEG was wi thin normal limits. MRI within normal limits. Neurology is on the case. Objective - Vital Signs Vital signs: Vital Signs Temp 98.2 F 10/21/20 07:15 Pulse 61 10/21/20 07:15 Resp 14 10/21/20 07:15 BP 106/64 10/21/20 07:15 Pulse Ox 91 L 10/21/20 07:15 Intake & Output 10/20/20 10/21/20 10/21/20 18:59 06:59 18:59 Intake Total 400 800 Output Total 1150 600 Balance -750 200 Intake: Oral 400 800 Output: Urine 1150 600 Other: Voiding Method Urinal Urinal Urinal # Voids 3 - Exam GENERAL EXAM: Revealed 55-year-old male in no distress. On room air. HEAD: Normocephalic. Atraumatic. EENT: PERRLA, EOMI, anicteric, no neck masses, no JVD, no stridor. CHEST: No chest wall deformity. Symmetrical chest expansion. LUNGS: Clear breath sounds bilaterally no crackles or rhonchi or wheezes. CVS: S1 and S2 normal with no audible murmur, regular rhythm. ABDOMEN: Soft nontender no megaly no rebound no guarding. SKIN: No rashes CENTRAL NERVOUS SYSTEM: Alert and oriented 3 focal neurologic deficits. EXTREMITIES: No clubbing edema or cyanosis, good pulses bilaterally. - Labs CBC & Chem 7: 10/18/20 16:50 10/18/20 16:50 Assessment and Plan Assessment: 1 Altered mental status of unclear etiology, possibly related to polypharmacy 2 Urine drug screen positive for opiates, oxycodone, benzodiazepines 3 History of acute hypoxic respiratory failure secondary to aspiration pneumonias. 4 History of esophageal strictures with previous esophageal dilatation 5 Chronic anemia 6 Morbid obesity previous gastric sleeve placement in December 2019 7 Paroxysmal atrial fibrillation 8 History of CVA 9 Hypertension 10 History of chronic back pain 11 Diabetes mellitus 12 Former chronic tobacco dependence Plan: The patient was seen and evaluated by Dr. Gomez Cleared for discharge from the pulmonary standpoint I, the cosigning physician, performed a history & physical examination of the patient. Lungs sounds are clear. Maintaining good O2 saturations in the 90s on room air. I discussed the assessment and plan of care with my nurse practitioner, Sherrill Sun. I attest to the above consultation as dictated by her.
--- NOTE | 2020-10-21 19:41 | P.DS ---
Providers Date of admission: 10/18/20 18:51 Expected date of discharge: 10/21/20 Attending physician: Chavez Pedraza Consults: 10/18/20 18:51 Consult Physician Urgent Consulting Provider: Alfredo Gomez Consult Reason/Comments: ams Do you want consulting provider notified?: Yes 10/18/20 18:52 Consult Physician Routine Consulting Provider: Wilner Gomez Consult Reason/Comments: dyspnea Do you want consulting provider notified?: Yes Primary care physician: Physician Nonstaff Hospital Course: Chief Complaint: Altered mental status History of presenting complaint: This is a very pleasant 55-year-old patient of Dr. Alexandrea Ang. stable medical conditions include hypertension, , gout, chronic bilateral hip pain, peripheral neuropathy. Atrial fibrillation, gastric [place] [address] Zarate. Jun 2018 had lysis of adhesions, laparoscopic reduction and repair of incarcerated paraesophageal hiatal hernia with a mesh and takedown of a g astric-gastric fistula by Dr. Dumont. baseline - walk slowly because of peripheral neuropathy. In August 2018 patient had EGD done that showed severe erosive esophagitis with esophageal ulcer. readmitted July 05 2019 underwent balloon dilatation of 10-7 mm done. admitted July 22 and underwent EGD by Dr. Carbajal. Found-severe esophagitis and distal esophageal obstruction. A 10 mm dilatation was carried out. Retained food was extracted. Found to have possible aspiration pneumonia bilateral, treat with IV Zosyn-discharge. Dr. Carbajal discharged on Augmentin on July 26. On December 11 and I&D of the right scrotal abscess. - Shobha's gangrene. In December 2019- small bowel obstruction and recurrent hypoglycemia and was then transferred to [facility]. Patient recently had couple of admissions with pneumonia not requiring 2 L of oxygen. Recent admissions dose of Lyrica was cut back up causing patient to be somnolent. Patient now admitted following the noted that patient is becoming more sleepy during the daytime. And also noticed some jerking movements. Patient states that he at least needs in the daytime and not able to sleep at night even though he takes medications including Lyrica, Ambien. There was question about seizure activity. Otherwise patient breathing is stable. Oral intake is fair. Patient started empirically on Keppra by neurology. Initial EEG was negative. Ambien was discontinued. Sleep hygiene/cycle was discussed with the patient. As there was further concern about seizure heart border and a half hour prolo nged EEG was done. That came back negative for seizure activity. Today: No further jerking activities. Sleep hygiene again was discussed at length with the patient. Communicated with Dr. Milligan from neurology. Patient to be discharged on Keppra and will have an overnight EEG study as an outpatient. Discussion and discharge planning more than 35 minutes Consultation: Dr. Gomez from neurology Past medical history to include: Hypertension, gout, peripheral neuropathy, atrial fibrillation, gastric sleeve in 2014, gastric-gastric fistula repair, severe esophagitis, esophageal stenosis dilated, Social history: Smoke one half a pack a day for about 38 years-stopped 2018. . No alcohol. Physical examination: VITAL SIGNS: 98.2, 61, 14, 106/64, 91% room air GENERAL: BMI 32.5, reclining in bed, comfortable EYES: Pupils equal. Conjunctiva normal. NECK: JVD unable to assess; masses not palpable. HEART: First and second heart sounds are normal; no edema. LUNGS: Respiratory rate increased, some coarse crackles in the bases ABDOMEN: Soft, nontender, liver spleen not palpable, no masses palpable. Left abdominal wall has a pain pump PSYCH: Alert and oriented x3; mood and affect anxious INVESTIGATIONS, reviewed in the clinical context: EEG prolonged 2 and half hours: Negative for seizure EEG: Negative for seizure White count B12 591 TSH 0.3 WBC 9.1 hemoglobin 8.8 platelets 367 potassium 5.3 creatinine 1.02 Troponin I less than 0.012 Urine drug screen: Positive for opiates, oxycodone, benzodiazepine Influenza type A, type B, RSV, Coronavirus PCR: Not detected EKG tracing personally reviewed by me-normal sinus rhythm Chest x-ray film personally reviewed by me-possible chronic changes Computed tomography scan brain: Nothing acute Assessment and plan: -Possible metabolic encephalopathy: Presented some altered mental status and some sleepy behavior. Also noted to have some jerky movements witnessed by At home by the . This could be the fact that patient sleeps during the daytime unable to sleep at night and takes medicines including Ambien at night. This could be a disturbance of his sleep cycle. Of course seizure activity needs to be ruled out. Initial EEG was negative. A prolonged EEG for 2-1/2 hour was also negative. Ambien discontinued. Patient educated about sleep cycle. Patient have a overnight EEG as outpatient. -Chronic hypoxic respiratory failure due to COPD Supplement oxygen - COPD in a ex-smoker Continue with DuoNeb -History of recurrent esophageal stricture with repeat dilatation -History of paraesophageal repair and history of sleeve gastrectomy -Essential hypertension Continue with Lopressor -Primary osteoarthritis Use Percocet when necessary -Chronic Gout Continue with allopurinol -Idiopathic peripheral neuropathy Continue with Lyrica -Chronic back pain with the pain pump -Anemia of chronic disease -Paroxysmal atrial fibrillation, currently in sinus rhythm continue with beta raf. -Chronic insomnia Ambien discontinued. Sleep hygiene discussed -Chronic GERD Continue with omeprazole Disposition: Home patient is to follow-up with Dr. Cordero/HÉCTOR Price, [address], [place] [address], within 1-2 weeks. Plan - Discharge Summary New Discharge Prescriptions: New Amoxicillin/Potassium Clav [Augmentin 875-125 Tablet] 1 tab PO Q12HR 1 Days #6 tab levETIRAcetam [Keppra] 750 mg PO Q12HR #60 tab Melatonin 3 mg PO HS PRN tablet PRN Reason: Insomnia Continue Escitalopram [Lexapro] 10 mg PO DAILY Allopurinol [Zyloprim] 300 mg PO DAILY Omeprazole 40 mg PO BID #60 cap Cyclobenzaprine [Flexeril] 10 mg PO BID PRN #0 PRN Reason: Spasms Metoprolol Tartrate [Lopressor] 12.5 mg PO BID oxyCODONE HCL/ACETAMINOPHEN [Percocet 5-325 mg] 1 tab PO QID PRN PRN Reason: Pain polyethylene glycoL 3350 [Miralax] 17 gm PO DAILY Pregabalin [Lyrica] 300 mg PO HS #1 cap Ergocalciferol [Vitamin D2 (1250 Mcg = 79120 Iu)] 1,250 mcg PO MO lisinopriL [Zestril] 2.5 mg PO DAILY Furosemide [Lasix] 20 mg PO DAILY Discontinued Zolpidem [Ambien] 5 mg PO HS #30 tab Sulfamethox-Tmp 800-160Mg [Bactrim DS 800-160 mg] 1 tab PO Q12HR 10 Days #20 tab Docusate [Colace] 100 mg PO DAILY PRN PRN Reason: Constipation Discharge Medication List Allopurinol [Zyloprim] 300 mg PO DAILY 06/04/16 [History] Escitalopram [Lexapro] 10 mg PO DAILY 06/04/16 [History] Omeprazole 40 mg PO BID #60 cap 07/06/19 [Rx] Cyclobenzaprine [Flexeril] 10 mg PO BID PRN #0 03/27/20 [Rx] Metoprolol Tartrate [Lopressor] 12.5 mg PO BID 04/28/20 [History] oxyCODONE HCL/ACETAMINOPHEN [Percocet 5-325 mg] 1 tab PO QID PRN 08/31/20 [History] Ergocalciferol [Vitamin D2 (1250 Mcg = 66155 Iu)] 1,250 mcg PO MO 09/26/20 [History] polyethylene glycoL 3350 [Miralax] 17 gm PO DAILY 09/26/20 [History] Pregabalin [Lyrica] 300 mg PO HS #1 cap 10/09/20 [Rx] Furosemide [Lasix] 20 mg PO DAILY 10/18/20 [History] lisinopriL [Zestril] 2.5 mg PO DAILY 10/18/20 [History] Amoxicillin/Potassium Clav [Augmentin 875-125 Tablet] 1 tab PO Q12HR 1 Days #6 tab 10/21/20 [Rx] Melatonin 3 mg PO HS PRN tablet 10/21/20 [Rx] levETIRAcetam [Keppra] 750 mg PO Q12HR #60 tab 10/21/20 [Rx] Follow up Appointment(s)/Referral(s): Eric Ang DO [STAFF PHYSICIAN] - 1 Week Activity/Diet/Wound Care/Special Instructions: Upon discharge the patient is to follow-up with Dr. Cordero/HÉCTOR Price, [address] [place] [id number], within 1-2 weeks. Discharge Disposition: HOME SELF-CARE
[2020-10-23] MEDS ORDERED: ERGOCALCIFEROL 1,250 MCG (50,000 IU) CAPSULE PO SCH (09:00)
== END 2020-10-21 14:30 | disposition home or self-care (01) ==
LOC: EC 15:52 → 6NMEDSUR 18:51
PROVIDERS: ADMIT Hospitalist; ATTEND Hospitalist
DX: R41.82 Altered mental status, unspecified (principal); F51.04 Psychophysiologic insomnia; J96.21 Acute and chronic respiratory failure with hypoxia; J44.9 Chronic obstructive pulmonary disease, unspecified; I10 Essential (primary) hypertension; K22.2 Esophageal obstruction; M1A.9XX0 Chronic gout, unspecified, without tophus (tophi); G60.9 Hereditary and idiopathic neuropathy, unspecified; G89.29 Other chronic pain; D63.8 Anemia in other chronic diseases classified elsewhere; I48.0 Paroxysmal atrial fibrillation; K21.00 Gastro-esophageal reflux disease with esophagitis, without bleeding; J69.0 Pneumonitis due to inhalation of food and vomit; E78.5 Hyperlipidemia, unspecified; D50.9 Iron deficiency anemia, unspecified; M19.91 Primary osteoarthritis, unspecified site; G47.30 Sleep apnea, unspecified; W06.XXXA Fall from bed, initial encounter; Y92.019 Unspecified place in single-family (private) house as the place of occurrence of the external cause; K44.9 Diaphragmatic hernia without obstruction or gangrene; F41.9 Anxiety disorder, unspecified; F32.9 Major depressive disorder, single episode, unspecified; E66.9 Obesity, unspecified; Z68.32 Body mass index [BMI] 32.0-32.9, adult; Z79.899 Other long term (current) drug therapy; Z20.822 Contact with and (suspected) exposure to COVID-19; Z86.16 Personal history of COVID-19; Z87.01 Personal history of pneumonia (recurrent); Z16.12 Extended spectrum beta lactamase (ESBL) resistance; Z87.891 Personal history of nicotine dependence; Z97.8 Presence of other specified devices; Z96.643 Presence of artificial hip joint, bilateral; Z96.612 Presence of left artificial shoulder joint; Z98.1 Arthrodesis status; Z98.84 Bariatric surgery status; Z86.73 Personal history of transient ischemic attack (TIA), and cerebral infarction without residual deficits; Z82.49 Family history of ischemic heart disease and other diseases of the circulatory system; Z80.1 Family history of malignant neoplasm of trachea, bronchus and lung
CPT/HCPCS: 96365; 96366 ×2; 99285; 36415; 36600; 95816; 95713; 93005; 87798 ×3; 84207; 87496; 87498; 87529; 84439; 80053; 84443; 82607; 82140; 82746; 82805; 84484; 85025; 85610; 85730; 81001; 87502; 87634; 80306; 87636; 71046; 70450; 70553; G0378 ×4; J2543 ×2; J1953; A9585

== ENCOUNTER 2020-12-01 18:22 | Inpatient (IN) | payer MEDICARE, OTHER ==
[2020-12-05 14:01] VITALS: BMI 31.6
[2020-12-06 11:31] VITALS: BP 148/74; PULSE 104; RESP 18; TEMP 97.6
== END 2020-12-06 15:21 | disposition home or self-care (01) | DRG 389 ==
LOC: EC 18:22 → 5NMEDONC 22:06
PROVIDERS: ADMIT Internal Medicine; ATTEND Internal Medicine
DX: K56.690 Other partial intestinal obstruction (principal); K80.10 Calculus of gallbladder with chronic cholecystitis without obstruction; K92.2 Gastrointestinal hemorrhage, unspecified; G45.9 Transient cerebral ischemic attack, unspecified; Z16.24 Resistance to multiple antibiotics; Z96.643 Presence of artificial hip joint, bilateral; Z96.612 Presence of left artificial shoulder joint; E78.5 Hyperlipidemia, unspecified; I10 Essential (primary) hypertension; I48.91 Unspecified atrial fibrillation; J44.9 Chronic obstructive pulmonary disease, unspecified; K44.9 Diaphragmatic hernia without obstruction or gangrene; G40.909 Epilepsy, unspecified, not intractable, without status epilepticus; F41.9 Anxiety disorder, unspecified; F32.9 Major depressive disorder, single episode, unspecified; G47.30 Sleep apnea, unspecified; G57.93 Unspecified mononeuropathy of bilateral lower limbs; G89.29 Other chronic pain; K21.9 Gastro-esophageal reflux disease without esophagitis; M10.9 Gout, unspecified; K59.00 Constipation, unspecified; M19.90 Unspecified osteoarthritis, unspecified site; E16.2 Hypoglycemia, unspecified; M54.9 Dorsalgia, unspecified; Z79.899 Other long term (current) drug therapy; Z86.73 Personal history of transient ischemic attack (TIA), and cerebral infarction without residual deficits; Z98.1 Arthrodesis status; Z87.891 Personal history of nicotine dependence; Z87.01 Personal history of pneumonia (recurrent); Z98.84 Bariatric surgery status
CPT/HCPCS: 36415; 71045; 74019; 74176; 74177; 80048; 80053; 82150; 83605; 83690; 83735; 85025; 85610; 85730; 86850; 86900; 86901; 87635; 94760; 96361; 96374; 96375; 99285

== ENCOUNTER 2021-03-17 17:05 | Inpatient (IN) | payer MEDICARE, OTHER ==
[2021-03-17] MEDS ORDERED: SODIUM CHLORIDE 0.9% 1,000 ML IV STA ×2 (18:59)
[2021-03-17] MEDS ORDERED: ONDANSETRON 4 MG/2 ML VIAL IVP STA ×2 (18:59→23:13)
--- NOTE | 2021-03-17 19:07 | ED ---
Nausea/Vomiting/Diarrhea HPI - General Chief complaint: Nausea/Vomiting/Diarrhea Stated complaint: Vomiting Time Seen by Provider: 03/17/21 18:36 Source: patient, family, RN notes reviewed Mode of arrival: wheelchair Limitations: no limitations - History of Present Illness Initial comments: This is a 55-year-old male with a history of small bowel obstruction the past who presents with complaints of nausea vomiting fevers chills that started last night. He persists today he states it feels similar with his last bowel obstruction no diarrhea he states he is not passing gas from below. No sore throat rhinorrhea cough or other symptoms reported. Patient states he started having coffee ground emesis MD complaint: nausea, vomiting, abdominal pain, other - Related Data Home Medications Medication Instructions Recorded Confirmed Allopurinol [Zyloprim] 300 mg PO DAILY 06/04/16 03/17/21 Escitalopram [Lexapro] 10 mg PO DAILY 06/04/16 03/17/21 Ergocalciferol [Vitamin D2 (1250 1,250 mcg PO MO 09/26/20 03/17/21 Mcg = 36358 Iu)] polyethylene glycoL 3350 [Miralax] 17 gm PO DAILY PRN 09/26/20 03/17/21 Furosemide [Lasix] 20 mg PO DAILY PRN 10/18/20 03/17/21 Cyclobenzaprine [Flexeril] 10 mg PO DAILY PRN 03/17/21 03/17/21 Sulfamethox-Tmp 800-160Mg [Bactrim 1 tab PO Q12HR 03/17/21 03/17/21 DS 800-160 mg] Previous Rx's Medication Instructions Recorded Omeprazole 40 mg PO BID #60 cap 07/06/19 Melatonin 3 mg PO HS PRN tablet 10/21/20 Glucagon Emergency Kit 1 mg IM ONCE #1 kit 12/06/20 Allergies Allergy/AdvReac Type Severity Reaction Status Date / Time No Known Allergies Allergy Verified 03/17/21 20:43 Review of Systems ROS Statement: Those systems with pertinent positive or pertinent negative responses have been documented in the HPI. ROS Other: All systems not noted in ROS Statement are negative. Past Medical History Past Medical History: Atrial Fibrillation, COPD, CVA/TIA, GERD/Reflux, Hyperlipidemia, Hypertension, Osteoarthritis (OA), Pneumonia, Seizure Disorder, Sleep Apnea/CPAP/BIPAP Additional Past Medical History / Comment(s): hiatal hernia, gout, neuropathy marta legs and feet- states feet are numb, some numbness in legs & tingling in hands., chronic back pain., constipation., dysphagia-hx of EGD with dilation, chronic esophogeal stenosis. Last October 2019, states frequent pneumonia & not sure why, recent admission for History of Any Multi-Drug Resistant Organisms: CRE, ESBL Date of last positivie culture/infection: 09/28/20 ESBL Klebsiella MDRO Source:: Sputum Past Surgical History: Back Surgery, Bariatric Surgery, Bowel Resection, Heart Catheterization, Joint Replacement, Orthopedic Surgery Additional Past Surgical History / Comment(s): PAIN PUMP IMPLANTED 07/17/18, HX GASTRIC SLEEVE AND . BILATERAL KNEE arthroscopy, BILATERAL HIP replacement, LEFT SHOULDER replacement, LEFT ACHILES TENDON SX., RIGHT BIG TOE took piece out, echocardiolgram, spinal fusion, EGD with dilation., STATES HX OF PNEUMONIA WITH LUNG SURGERY., REPAIR OF HIATAL HERNIA & LYSIS OF ADHESIONS Past Anesthesia/Blood Transfusion Reactions: No Reported Reaction Past Psychological History: Anxiety, Depression Smoking Status: Former smoker Past Alcohol Use History: None Reported Past Drug Use History: None Reported - Past Family History Father Family Medical History: Cancer Additional Family Medical History / Comment(s): lung Mother Family Medical History: Coronary Artery Disease (CAD) Additional Family Medical History / Comment(s): . General Exam - General Exam Comments Initial Comments: This is a well-developed well-nourished awake alert oriented times 3 male Limitations: no limitations General appearance: alert, anxious Head exam: Present: atraumatic, normocephalic, normal inspection Eye exam: Present: normal appearance, PERRL, EOMI. Absent: scleral icterus, conjunctival injection, periorbital swelling ENT exam: Present: mucous membranes dry Neck exam: Present: normal inspection, full ROM, other (No surgery or bruits). Absent: tenderness, meningismus, lymphadenopathy Respiratory exam: Present: normal lung sounds bilaterally. Absent: respiratory distress, wheezes, rales, rhonchi, stridor Cardiovascular Exam: Present: regular rate, normal rhythm, normal heart sounds. Absent: systolic murmur, diastolic murmur, rubs, gallop, clicks GI/Abdominal exam: Present: soft, distended (Guarding rebound masses or bruits the pain pump is present), tenderness, normal bowel sounds. Absent: guarding, rebound, rigid Rectal exam: Present: deferred Extremities exam: Present: normal inspection, full ROM, normal capillary refill. Absent: tenderness, pedal edema, joint swelling, calf tenderness Back exam: Present: normal inspection Neurological exam: Present: alert, oriented X3, CN II-XII intact Psychiatric exam: Present: normal affect, normal mood Skin exam: Present: warm, dry, intact, normal color. Absent: rash Course Vital Signs 03/17/21 17:45 Temperature 99.3 F Pulse Rate 88 Respiratory 18 Rate Blood Pressure 122/67 O2 Sat by Pulse 100 Oximetry Medical Decision Making - Medical Decision Making I did discuss the findings with the patient as well as family members and with Dr. Jauregui's group some labs are pending at the time the patient does have evidence of small bowel obstruction initially admitted CAT scan ordered surgical consultation. - Lab Data Result diagrams: 03/17/21 19:06 03/17/21 19:06 Lab Results 03/17/21 03/17/21 03/17/21 Range/Units 19:06 19:06 19:06 WBC 6.9 (3.8-10.6) k/uL RBC 5.61 (4.30-5.90) m/uL Hgb 12.0 L (13.0-17.5) gm/dL Hct 43.6 (39.0-53.0) % MCV 77.7 L (80.0-100.0) fL MCH 21.5 L (25.0-35.0) pg MCHC 27.6 L (31.0-37.0) g/dL RDW 19.7 H (11.5-15.5) % Plt Count 153 (150-450) k/uL MPV 9.5 Neutrophils % 75 % Lymphocytes % 17 % Monocytes % 5 % Eosinophils % 1 % Basophils % 0 % Neutrophils # 5.2 (1.3-7.7) k/uL Lymphocytes # 1.2 (1.0-4.8) k/uL Monocytes # 0.4 (0-1.0) k/uL Eosinophils # 0.1 (0-0.7) k/uL Basophils # 0.0 (0-0.2) k/uL Hypochromasia Marked Poikilocytosis Slight Anisocytosis Slight Microcytosis Moderate Sodium 138 (137-145) mmol/L Potassium 4.6 (3.5-5.1) mmol/L Chloride 98 (98-107) mmol/L Carbon Dioxide 27 (22-30) mmol/L Anion Gap 13 mmol/L BUN 18 (9-20) mg/dL Creatinine 0.93 (0.66-1.25) mg/dL Est GFR (CKD-EPI)AfAm >90 (>60 ml/min/1.73 sqM) Est GFR (CKD-EPI)NonAf >90 (>60 ml/min/1.73 sqM) Glucose 122 H (74-99) mg/dL Plasma Lactic Acid Suresh (0.7-2.0) mmol/L Calcium 9.4 (8.4-10.2) mg/dL Magnesium 1.7 (1.6-2.3) mg/dL Total Bilirubin 1.2 (0.2-1.3) mg/dL AST 30 (17-59) U/L ALT 11 (4-49) U/L Alkaline Phosphatase 127 H (38-126) U/L Total Protein 8.9 H (6.3-8.2) g/dL Albumin 4.6 (3.5-5.0) g/dL Lipase 2341 H (23-300) U/L Urine Color Yellow Urine Appearance Clear (Clear) Urine pH 6.5 (5.0-8.0) Ur Specific [place] 1.029 (1.001-1.035) Urine Protein 1+ H (Negative) Urine Glucose (UA) Negative (Negative) Urine Ketones 1+ H (Negative) Urine Blood Negative (Negative) Urine Nitrite Negative (Negative) Urine Bilirubin Negative (Negative) Urine Urobilinogen 12.0 (<2.0) mg/dL Ur Leukocyte Esterase Negative (Negative) Urine WBC 4 (0-5) /hpf Ur Squamous Epith Cells 1 (0-4) /hpf Amorphous Sediment Rare H (None) /hpf Hyaline Casts 1 (0-2) /lpf Urine Mucus Few H (None) /hpf 03/17/ Range/Units 19:06 WBC (3.8-10.6) k/uL RBC (4.30-5.90) m/uL Hgb (13.0-17.5) gm/dL Hct (39.0-53.0) % MCV (80.0-100.0) fL MCH (25.0-35.0) pg MCHC (31.0-37.0) g/dL RDW (11.5-15.5) % Plt Count (150-450) k/uL MPV Neutrophils % % Lymphocytes % % Monocytes % % Eosinophils % % Basophils % % Neutrophils # (1.3-7.7) k/uL Lymphocytes # (1.0-4.8) k/uL Monocytes # (0-1.0) k/uL Eosinophils # (0-0.7) k/uL Basophils # (0-0.2) k/uL Hypochromasia Poikilocytosis Anisocytosis Microcytosis Sodium (137-145) mmol/L Potassium (3.5-5.1) mmol/L Chloride (98-107) mmol/L Carbon Dioxide (22-30) mmol/L Anion Gap mmol/L BUN (9-20) mg/dL Creatinine (0.66-1.25) mg/dL Est GFR (CKD-EPI)AfAm (>60 ml/min/1.73 sqM) Est GFR (CKD-EPI)NonAf (>60 ml/min/1.73 sqM) Glucose (74-99) mg/dL Plasma Lactic Acid Suresh 2.3 H* (0.7-2.0) mmol/L Calcium (8.4-10.2) mg/dL Magnesium (1.6-2.3) mg/dL Total Bilirubin (0.2-1.3) mg/dL AST (17-59) U/L ALT (4-49) U/L Alkaline Phosphatase (38-126) U/L Total Protein (6.3-8.2) g/dL Albumin (3.5-5.0) g/dL Lipase (23-300) U/L Urine Color Urine Appearance (Clear) Urine pH (5.0-8.0) Ur Specific [place] (1.001-1.035) Urine Protein (Negative) Urine Glucose (UA) (Negative) Urine Ketones (Negative) Urine Blood (Negative) Urine Nitrite (Negative) Urine Bilirubin (Negative) Urine Urobilinogen (<2.0) mg/dL Ur Leukocyte Esterase (Negative) Urine WBC (0-5) /hpf Ur Squamous Epith Cells (0-4) /hpf Amorphous Sediment (None) /hpf Hyaline Casts (0-2) /lpf Urine Mucus (None) /hpf - Radiology Data Radiology results: report reviewed (Imaging shows evidence of small bowel obstruction), image reviewed Disposition Clinical Impression: Small bowel obstruction, Pancreatitis, Nausea & vomiting, Dehydration Disposition: ADMITTED IP TO THIS [facility] Condition: Fair Referrals: Eric Ang DO [Primary Care Provider] - 1-2 days
[2021-03-17 19:14] LABS: Anisocytosis Slight; Basophils % (A) 0 %; Eosinophils # (A) 0.1 k/uL (0-0.7); Eosinophils % (A) 1 %; HCT 43.6 % (39.0-53.0); Hypochromasia Marked; Lymphocytes # (A) 1.2 k/uL (1.0-4.8); Lymphocytes % (A) 17 %; MCH 21.5 pg (25.0-35.0); MCHC 27.6 g/dL (31.0-37.0); MCV 77.7 fL (80.0-100.0); Mean Platelet Volume 9.5; Microcytosis Moderate; Monocytes # (A) 0.4 k/uL (0-1.0); Monocytes % (A) 5 %; Neutrophils # (A) 5.2 k/uL (1.3-7.7); Neutrophils % (A) 75 %; Platelet Count 153 k/uL (150-450); Poikilocytosis Slight; RBC 5.61 m/uL (4.30-5.90); RDW 19.7 % (11.5-15.5); WBC 6.9 k/uL (3.8-10.6)
[2021-03-17 19:28] LABS: ALT 11 U/L (4-49); AST 30 U/L (17-59); African American GFR (CKD) >90 (>60 ml/min/1.73 sqM); Albumin 4.6 g/dL (3.5-5.0); Alkaline Phosphatase 127 U/L (38-126); Anion Gap 13 mmol/L; Blood Urea Nitrogen 18 mg/dL (9-20); Calcium 9.4 mg/dL (8.4-10.2); Carbon Dioxide 27 mmol/L (22-30); Chloride 98 mmol/L (98-107); Glucose 122 mg/dL (74-99); Magnesium 1.7 mg/dL (1.6-2.3); Non-African American GFR(CKD) >90 (>60 ml/min/1.73 sqM); Potassium 4.6 mmol/L (3.5-5.1); Sodium 138 mmol/L (137-145); Total Bilirubin 1.2 mg/dL (0.2-1.3); Total Protein 8.9 g/dL (6.3-8.2)
[2021-03-17 19:42] LABS: Lipase 2341 U/L (23-300)
[2021-03-17 19:47] LABS: Amorphous Sediment,Urine Rare /hpf; Appearance,Urine Clear (Clear); Bilirubin,Urine Negative (Negative); Blood,Urine Negative (Negative); Color,Urine Yellow; Glucose,Urine (UA) Negative (Negative); Hyaline Casts,Urine 1 /lpf (0-2); Ketones,Urine 1+ (Negative); Leukocyte Esterase,Urine Negative (Negative); Mucus,Urine Few /hpf; Nitrite,Urine Negative (Negative); PH, Urine 6.5 (5.0-8.0); Protein,Urine 1+ (Negative); Specific Gravity,Urine 1.029 (1.001-1.035); Squamous Epithelial Cell,Urine 1 /hpf (0-4); WBC,Urine 4 /hpf (0-5)
--- NOTE | 2021-03-17 20:16 | XR ---
EXAMINATION TYPE: XR chest 2V DATE OF EXAM: 03/17/2021 COMPARISON: 12/01/2020 HISTORY: Chest pain TECHNIQUE: 2 views FINDINGS: Heart and mediastinum are normal. Lungs are clear. Diaphragm is normal. Bony thorax is inta ct. There is slight widening of the left AC joint space. IMPRESSION: No active cardiopulmonary disease. There is improved inspiration compared to last exam.
--- NOTE | 2021-03-17 20:18 | XR ---
EXAMINATION TYPE: XR KUB DATE OF EXAM: 03/17/2021 COMPARISON: 12/04/2020 HISTORY: Nausea and vomiting TECHNIQUE: 3 views FINDINGS: There are dilated multiple loops of small bowel in the mid abdomen. There is no evidence of free air. There is some gas in the rectum. Lung bases are clear of infiltrate. IMPRESSION: Markedly dilated small bowel in the upper abdomen consistent with mechanical small bowel obstruction. Dilation is increased compared to old exam.
[2021-03-17] MEDS ORDERED: NALOXONE 0.4 MG/ML 1 ML VIAL IV PRN (21:26)
[2021-03-17] MEDS ORDERED: IOPAMIDOL CONTRAST (ORAL USE) VIAL PO PRN (21:31)
[2021-03-17] MEDS: HYDROmorphone 1 MG/ML 1 ML SYRINGE IVP PRN (22:28)
[2021-03-17] MEDS: SODIUM CHLORIDE 0.9% 1,000 ML IV SCH (22:29)
--- NOTE | 2021-03-18 00:53 | CT ---
EXAMINATION TYPE: CT abdomen pelvis w con DATE OF EXAM: 03/18/2021 COMPARISON: 12/05/2020 HISTORY: R/O Obstruction CT DLP: 1678.20 mGycm Automated exposure control for dose reduction was used. CONTRAST: Performed with IV Contrast, patient injected with 100 mL of Isovue 300. Images obtained from the diaphragm to the floor the pelvis with IV contrast. Some mild atelectasis right lung base. Heart size is normal. There are small calcified granulomata in the spleen. Liver is intact. Gallbladder is large with gallstones. Gallbladder measures 5 cm in diam eter. There is no evidence of pancreatic mass. Stomach is intact. There is apparent previous gastric surgery. The bile ducts are not dilated. There is some contrast material in the bowel on the right side. Distal small bowel is not dilated. Th ere are some dilated contrast filled loops of small bowel in the upper and mid abdomen. Small bowel i s dilated up to 5.5 cm. There is bilateral hip prosthesis. There is no inguinal hernia. There is impl anted device over the left anterior mid abdomen. Transition point of the dilated small bowel is not i dentified. There is no evidence of free air. The appendix is not seen. There is no evidence of a larg e bowel obstruction. Fecal pattern is normal. There is bilateral hip prosthesis. There is mild degenerative disc space narrowing at L4-5 and L5-S1. There is no compression fracture. IMPRESSION: Multiple markedly dilated small bowel loops with fluid levels consistent with mechanical high-grade s mall bowel obstruction. Transition point not identified. Small bowel dilation significantly increased compared to old exam. Dilated gallbladder with gallstones. Cholecystitis is possible. Gallbladder dilation increased compar ed to old exam.
[2021-03-18] MEDS: HYDROmorphone 1 MG/ML 1 ML SYRINGE IVP PRN ×4 (01:26→18:04)
[2021-03-18] MEDS: ONDANSETRON 4 MG/2 ML VIAL IVP PRN ×2 (01:26→12:05)
[2021-03-18 01:30] LABS: Glucose,Whole Blood 93 mg/dL (75-99)
[2021-03-18] MEDS: PANTOPRAZOLE 40 MG/10 ML VIAL IV SCH (07:53)
[2021-03-18] MEDS: SODIUM CHLORIDE 0.9% 1,000 ML IV SCH ×4 (07:53→20:46)
--- NOTE | 2021-03-18 09:47 | P.GSCN ---
History of Present Illness Consult date: 03/18/21 Reason for Consult: Bowel obstruction History of present illness: 55-year-old male known to our service. Patient has a complex surgical history. Underwent previous sleeve gastrectomy. Following that was having difficulty swallowing and underwent laparoscopic repair of a hiatal hernia. Earlier this summer the patient was noted to have a bowel obstruction and underwent surgical intervention at [facility]. Most recently hospitalized here in November of this year for recurrent bowel obstruction. Says that he was doing well until 2 days ago. Started feeling nauseous with subsequent vomiting. Mild mid abdominal discomfort. Decreased bowel activity. Patient had a CAT scan again demonstrating findings suggestive of bowel obstruction. Patient says he has mild nausea and now. Overall symptoms have improved. No nasogastric tube placed. Review of Systems The patient denies any acute changes in vision or hearing, no dysphagia or odynophagia, no chest pain or shortness of breath, no dysuria or hematuria, no headache, no runny nose, no rectal bleeding or melena, no unexplained weight loss Past Medical History Past Medical History: Atrial Fibrillation, COPD, CVA/TIA, GERD/Reflux, Hyperlipidemia, Hypertension, Osteoarthritis (OA), Pneumonia, Seizure Disorder, Sleep Apnea/CPAP/BIPAP Additional Past Medical History / Comment(s): hiatal hernia, gout, neuropathy marta legs and feet- states feet are numb, some numbness in legs & tingling in hands., chronic back pain., constipation., dysphagia-hx of EGD with dilation, chronic esophogeal stenosis. Last sz october 2019, states frequent pneumonia & not sure why, recent admission for History of Any Multi-Drug Resistant Organisms: CRE, ESBL Year Discovered:: 09/28/20 ESBL Klebsiella MDRO Source:: Sputum Past Surgical History: Back Surgery, Bariatric Surgery, Bowel Resection, Heart Catheterization, Joint Replacement, Orthopedic Surgery Additional Past Surgical History / Comment(s): PAIN PUMP IMPLANTED 07/17/18, HX GASTRIC SLEEVE AND . BILATERAL KNEE arthroscopy, BILATERAL HIP replacement, LEFT SHOULDER replacement, LEFT ACHILES TENDON SX., RIGHT BIG TOE took piece out, echocardiolgram, spinal fusion, EGD with dilation., STATES HX OF PNEUMONIA WITH LUNG SURGERY., REPAIR OF HIATAL HERNIA & LYSIS OF ADHESIONS Past Anesthesia/Blood Transfusion Reactions: No Reported Reaction Past Psychological History: Anxiety, Depression Additional Psychological History / Comment(s): Pt resides with his spouse, daughter and in laws. He uses a walker to ambulate. He does not drive, his sp ouse takes him to appts. Smoking Status: Former smoker Past Alcohol Use History: None Reported Additional Past Alcohol Use History / Comment(s): Pt started smoking in 1985 and quit in 2017. Past Drug Use History: None Reported - Past Family History Father Family Medical History: Cancer Additional Family Medical History / Comment(s): lung Mother Family Medical History: Coronary Artery Disease (CAD) Additional Family Medical History / Comment(s): . Medications and Allergies Home Medications Medication Instructions Recorded Confirmed Type Allopurinol [Zyloprim] 300 mg PO DAILY 06/04/16 03/17/21 History Escitalopram [Lexapro] 10 mg PO DAILY 06/04/16 03/17/21 History Omeprazole 40 mg PO BID #60 cap 07/06/19 03/17/21 Rx Ergocalciferol [Vitamin D2 (1250 1,250 mcg PO MO 09/26/20 03/17/21 History Mcg = 94660 Iu)] polyethylene glycoL 3350 [Miralax] 17 gm PO DAILY PRN 09/26/20 03/17/21 History Furosemide [Lasix] 20 mg PO DAILY PRN 10/18/20 03/17/21 History Melatonin 3 mg PO HS PRN tablet 10/21/20 03/17/21 Rx Glucagon Emergency Kit 1 mg IM ONCE #1 kit 12/06/20 03/17/21 Rx Cyclobenzaprine [Flexeril] 10 mg PO DAILY PRN 03/17/21 03/17/21 History Sulfamethox-Tmp 800-160Mg [Bactrim 1 tab PO Q12HR 03/17/21 03/17/21 History DS 800-160 mg] Allergies Allergy/AdvReac Type Severity Reaction Status Date / Time No Known Allergies Allergy Verified 03/17/21 20:43 Surgical - Exam Vital Signs Temp Pulse Resp BP Pulse Ox 99.3 F 88 18 122/67 100 03/17/21 17:45 03/17/21 17:45 03/17/21 17:45 03/17/21 17:45 03/17/21 17:45 Physical exam: General: Well-developed, well-nourished HEENT: Normocephalic, sclerae nonicteric Abdomen: Mild mid abdominal tenderness, nondistended, left-sided pain pump in place Extremities: No edema Neuro: Alert and oriented Results - Labs 03/17/21 19:06 03/17/21 19:06 Abnormal Lab Results - Last 24 Hours (Table) 03/17/21 03/17/21 03/17/21 Range/Units 19:06 19:06 19:06 Hgb 12.0 L (13.0-17.5) gm/dL MCV 77.7 L (80.0-100.0) fL MCH 21.5 L (25.0-35.0) pg MCHC 27.6 L (31.0-37.0) g/dL RDW 19.7 H (11.5-15.5) % Glucose 122 H (74-99) mg/dL Plasma Lactic Acid Suresh (0.7-2.0) mmol/L Alkaline Phosphatase 127 H (38-126) U/L Total Protein 8.9 H (6.3-8.2) g/dL Lipase 2341 H (23-300) U/L Urine Protein 1+ H (Negative) Urine Ketones 1+ H (Negative) Amorphous Sediment Rare H (None) /hpf Urine Mucus Few H (None) /hpf 03/17/21 Range/Units 19:06 Hgb (13.0-17.5) gm/dL MCV (80.0-100.0) fL MCH (25.0-35.0) pg MCHC (31.0-37.0) g/dL RDW (11.5-15.5) % Glucose (74-99) mg/dL Plasma Lactic Acid Suresh 2.3 H* (0.7-2.0) mmol/L Alkaline Phosphatase (38-126) U/L Total Protein (6.3-8.2) g/dL Lipase (23-300) U/L Urine Protein (Negative) Urine Ketones (Negative) Amorphous Sediment (None) /hpf Urine Mucus (None) /hpf Diabetes panel 03/17/21 Range/Units 19:06 Sodium 138 (137-145) mmol/L Potassium 4.6 (3.5-5.1) mmol/L Chloride 98 (98-107) mmol/L Carbon Dioxide 27 (22-30) mmol/L BUN 18 (9-20) mg/dL Creatinine 0.93 (0.66-1.25) mg/dL Glucose 122 H (74-99) mg/dL Calcium 9.4 (8.4-10.2) mg/dL AST 30 (17-59) U/L ALT 11 (4-49) U/L Alkaline Phosphatase 127 H (38-126) U/L Total Protein 8.9 H (6.3-8.2) g/dL Albumin 4.6 (3.5-5.0) g/dL Calcium panel 03/17/21 Range/Units 19:06 Calcium 9.4 (8.4-10.2) mg/dL Albumin 4.6 (3.5-5.0) g/dL Pituitary panel 03/17/21 Range/Units 19:06 Sodium 138 (137-145) mmol/L Potassium 4.6 (3.5-5.1) mmol/L Chloride 98 (98-107) mmol/L Carbon Dioxide 27 (22-30) mmol/L BUN 18 (9-20) mg/dL Creatinine 0.93 (0.66-1.25) mg/dL Glucose 122 H (74-99) mg/dL Calcium 9.4 (8.4-10.2) mg/dL Adrenal panel 03/17/21 Range/Units 19:06 Sodium 138 (137-145) mmol/L Potassium 4.6 (3.5-5.1) mmol/L Chloride 98 (98-107) mmol/L Carbon Dioxide 27 (22-30) mmol/L BUN 18 (9-20) mg/dL Creatinine 0.93 (0.66-1.25) mg/dL Glucose 122 H (74-99) mg/dL Calcium 9.4 (8.4-10.2) mg/dL Total Bilirubin 1.2 (0.2-1.3) mg/dL AST 30 (17-59) U/L ALT 11 (4-49) U/L Alkaline Phosphatase 127 H (38-126) U/L Total Protein 8.9 H (6.3-8.2) g/dL Albumin 4.6 (3.5-5.0) g/dL Assessment and Plan (1) Small bowel obstruction Narrative/Plan: 55-year-old male with recurrent bowel obstruction. We'll try to review records from [facility] surgical intervention earlier this summer. Repeat abdominal x-rays tomorrow. Keep nothing by mouth. Current Visit: Yes Status: Acute Code(s): K56.609 - UNSP INTESTNL OBST, UNSP TO PARTIAL VERSUS COMPLETE OBST SNOMED Code(s): 881399391
[2021-03-18] MEDS ORDERED: FUROSEMIDE 20 MG TAB PO PRN (16:55)
[2021-03-18] MEDS ORDERED: CYCLOBENZAPRINE 10 MG TAB PO PRN (16:55)
[2021-03-18] MEDS ORDERED: ALPRAZolam 0.25 MG TAB PO PRN (16:56)
[2021-03-18 18:19] LABS: Lipase 510 U/L (23-300)
[2021-03-18 18:57] LABS: Amylase 565 U/L (30-110)
--- NOTE | 2021-03-18 19:31 | HP ---
HISTORY AND PHYSICAL DATE OF SERVICE: 03/18/2021. CHIEF COMPLAINTS: Abdominal pain and vomiting. HISTORY OF PRESENT ILLNESS: This 55-year-old gentleman with a past medical history of atrial fibrillation, COPD, CVA, GERD, hypertension, hyperlipidemia, DJD, being followed by Dr. Eric Ang in the outpatient setting, was having complaints of abdominal distention and some nausea, vomiting and some chills since last night. The patient had undergone laparoscopic repair of hiatal hernia previously. Patient had the surgery in [facility] apparently. The patient also has a history of recurrent bowel obstruction. The CT scan showed possible bowel obstruction. The patient was seen by Dr. Verduzco and is being closely monitored. There is no history of any fever, rigor or chills at this time. PAST MEDICAL HISTORY: Atrial fibrillation, COPD, CVA, TIA, GERD, hypertension, hyperlipidemia. Previous surgeries as mentioned earlier. MEDICATIONS: Home medications are polyethylene glycol, Bactrim, omeprazole, melatonin, glucagon, Lasix, Lexapro, vitamin D2, Flexeril, zyloprim. Doses are reviewed. ALLERGIES: NONE. FAMILY HISTORY: History of lung cancer in the family. SOCIAL HISTORY: Previous history of smoking. No current smoking or alcohol intake. REVIEW OF SYSTEMS: ENT: No diminished hearing. No diminished vision. CARDIOVASCULAR SYSTEM: No angina, palpitations. RESPIRATORY SYSTEM: As mentioned earlier. GI: As mentioned earlier. : No dysuria. NERVOUS SYSTEM: No numbness, weakness. ALLERGY/IMMUNOLOGY: No asthma or hay fever. MUSCULOSKELETAL: As mentioned earlier. HEMATOLOGY/ONCOLOGY: No history of anemia. ENDOCRINE: No history of diabetes or hypothyroidism. CONSTITUTIONAL: As mentioned earlier. DERMATOLOGY: Negative. RHEUMATOLOGY: Negative. PSYCHIATRY: As mentioned earlier. PHYSICAL EXAMINATION: Patient is alert and oriented x3. Pulse is 68, blood pressure 127/73, respiration 18, temperature 98 degrees, pulse ox 97% on room air. HEENT: Conjunctivae normal. NECK: No jugular venous distention. CARDIOVASCULAR: S1, S2 muffled. RESPIRATION: Breath sounds diminished at the bases. A few scattered rhonchi and crackles. ABDOMEN: Soft. Mild diffuse discomfort on palpation. No guarding. No rigidity. No mass palpable. Pain pump present in the left upper quadrant. LEGS: No edema. No swelling. NERVOUS SYSTEM: Higher functions as mentioned earlier. Moves all 4 limbs. No focal motor or sensory deficit. LYMPHATICS: No lymph node palpable in neck, axillae or groin. SKIN: No ulcer, rash, bleeding. JOINTS: No active deforming arthropathy. LABS: WBC 6.2, hemoglobin is 12, glucose 122 and lactic acid 2.3. ASSESSMENT: 1. Acute small-bowel obstruction. 2. History of previous recurrent small-bowel obstruction and surgery. 3. History of laparoscopic hiatal hernia repair. 4. Dilated gallbladder with gallstones. 5. Elevated lipase; possible acute pancreatitis. 6. Elevated lactic acid. 7. Atrial fibrillation. 8. Chronic obstructive pulmonary disease. 9. History of cerebrovascular accident, transient ischemic attack. 10.Gastroesophageal reflux disease. 11.Hypertension. 12.Hyperlipidemia. 13.History of degenerative joint disease. 14.History of pneumonia. 15.Seizure disorder. 16.History of sleep apnea. 17.History of gout. 18.History of peripheral neuropathy. 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 20.History of back surgery. 21.History of bariatric surgery. 22.History of bowel resection. 23.History of pain pump. 24.FULL CODE. RECOMMENDATIONS AND DISCUSSION: In this 55-year-old gentleman who presented with multiple complex medical issues, we will monitor the patient closely, continue the current medications. We will continue the conservative line of treatment at this time, follow closely with Surgery, resume the home medications, DVT prophylaxis. Repeat labs. Symptomatic treatment. Prognosis guarded because of multiple complex medical issues. I would recommend repeating amylase and lipase also. CT scan of the abdomen and pelvis was reviewed personally by me. It showed multiple dilated small bowel loops without any identification of dilated gallbladder, with gallstones also noted. The abnormal CT scan and findings are being addressed by Surgery. Prognosis is guarded. Further recommendations to follow. A copy of this dictation is being forwarded to Dr. Ang, who is the primary physician. MMODL / IJN: [id number] /
[2021-03-18] MEDS: HEPARIN SODIUM,PORCINE/PF 5,000 UNIT/0.5 ML SYRINGE SQ SCH (20:35)
[2021-03-19 06:50] LABS: Anisocytosis Slight; Basophils % (A) 0 %; Eosinophils # (A) 0.2 k/uL (0-0.7); Eosinophils % (A) 6 %; HCT 37.1 % (39.0-53.0); HGB 10.1 gm/dL (13.0-17.5); Hypochromasia Marked; Lymphocytes # (A) 1.9 k/uL (1.0-4.8); Lymphocytes % (A) 45 %; MCH 21.8 pg (25.0-35.0); MCHC 27.2 g/dL (31.0-37.0); MCV 80.3 fL (80.0-100.0); Mean Platelet Volume 7.7; Microcytosis Slight; Monocytes # (A) 0.2 k/uL (0-1.0); Monocytes % (A) 5 %; Neutrophils # (A) 1.8 k/uL (1.3-7.7); Neutrophils % (A) 41 %; Platelet Count 113 k/uL (150-450); Poikilocytosis Slight; RBC 4.62 m/uL (4.30-5.90); RDW 19.7 % (11.5-15.5); WBC 4.3 k/uL (3.8-10.6)
[2021-03-19] MEDS: PANTOPRAZOLE 40 MG/10 ML VIAL IV SCH (09:32)
[2021-03-19] MEDS: ESCITALOPRAM 10 MG TAB PO SCH (09:32)
[2021-03-19] MEDS: allopurinoL 300 MG TAB PO SCH (09:32)
[2021-03-19] MEDS: HEPARIN SODIUM,PORCINE/PF 5,000 UNIT/0.5 ML SYRINGE SQ SCH ×2 (09:32→20:34)
[2021-03-19] MEDS: SODIUM CHLORIDE 0.9% 1,000 ML IV SCH (09:37)
[2021-03-19 10:25] LABS: Chol/HDL Ratio 2.88; LDL Cholesterol,Calculated 59.4 mg/dL (0.0-131.0); VLDL Calculation 34.6 mg/dL (5.00-40.00)
[2021-03-19 10:26] LABS: African American GFR (CKD) 97.1 (60.0-200.0); Albumin 3.7 g/dL (3.80-4.90); Albumin/Globulin Ratio 1.12 (1.60-3.17); Calcium 8.5 mg/dL (8.7-10.3); Globulin 3.3 g/dL (1.6-3.3); Non-African American GFR(CKD) 83.8 (60.0-200.0); Potassium 4.3 mmol/L (3.5-5.5); Total Bilirubin 1.1 mg/dL (0.2-1.2)
[2021-03-19 10:31] LABS: Glucose,Whole Blood 56 mg/dL (75-99)
[2021-03-19] MEDS: DEXTROSE 50% SYRINGE 50 ML IVP STA ×2 (10:37→20:26)
[2021-03-19 10:59] LABS: Glucose,Whole Blood 128 mg/dL (75-99)
[2021-03-19] MEDS: DEXTROSE 10% IN WATER 1,000 ML with SODIUM CHLORIDE 4MEQ/ML VIAL 153.8 MEQ IV SCH (12:39)
[2021-03-19 12:52] VITALS: BMI 29.2
--- NOTE | 2021-03-19 14:04 | P.PN ---
Subjective Progress Note Date: 03/19/21 CHIEF COMPLAINT: Small bowel obstruction HISTORY OF PRESENT ILLNESS: Surgical service is following regards patient's small bowel obstruction. He does report a decrease in pain since admission. He still has not had any bowel movement or flatus. He denies any nausea or vomiting since yesterday. His abdominal x-ray is pending. Surgical report from [facility] has been received. We'll review op note. Patient apparently had surgical intervention at [facility] for bowel obstruc tion. Afebrile. WBC is 4.3 hemoglobin 10.1 platelets 113 LFT normal lipase has normalized. Patient has history of sleeve and hiatal hernia repair PHYSICAL EXAM: VITAL SIGNS: Reviewed. GENERAL: Well-developed in no acute distress. HEENT: No sclera icterus. Extraocular movements grossly intact. Moist buccal mucosa. Head is atraumatic, normocephalic. ABDOMEN: Soft. Nondistended. Nontender. NEUROLOGIC: Alert and oriented. Cranial nerves II through XII grossly intact. ASSESSMENT: 1. Small bowel obstruction 2. Acute pancreatitis with gallstones present on CAT scan and gallbladder dil ation noted PLAN: -Follow up on abdominal x-ray results. -Further recommendations forthcoming per surgeon -Patient nothing by mouth -Continue IV fluids Physician Sample Puller note has been reviewed by physician. Signing provider agrees with the documented findings, assessment, and plan of care. Objective - Vital Signs Vital signs: Vital Signs Temp 98.1 F 03/19/21 11:35 Pulse 78 03/19/21 11:35 Resp 17 03/19/21 11:35 BP 142/85 03/19/21 11:35 Pulse Ox 96 03/19/21 11:35 Intake & Output 03/18/21 03/19/21 03/19/21 18:59 06:59 18:59 Intake Total 1620 1430 Output Total 800 1750 Balance 820 -320 Weight 108.862 kg Intake: Intake, IV Titration 1560 1430 Amount Sodium Chloride 0.9% 1, 1560 1430 000 ml @ 130 mls/hr IV . [id number] MATT Rx#:[id number] Oral 60 Output: Urine 800 1750 Other: Voiding Method Toilet Toilet Toilet # Voids 2 3 - Labs CBC & Chem 7: 03/19/21 06:22 03/19/21 11:00 Labs: Abnormal Lab Results - Last 24 Hours (Table) 03/18/21 03/19/21 03/19/21 Range/Units 17:45 06:22 06:22 Hgb 10.1 L (13.0-17.5) gm/dL Hct 37.1 L (39.0-53.0) % MCH 21.8 L (25.0-35.0) pg MCHC 27.2 L (31.0-37.0) g/dL RDW 19.7 H (11.5-15.5) % Plt Count 113 L (150-450) k/uL Carbon Dioxide 21.0 L (21.6-31.8) mmol/L Anion Gap 14.00 H (4.00-12.00) mmol/L Glucose 46 L* (70-110) mg/dL POC Glucose (mg/dL) (75-99) mg/dL Calcium 8.5 L (8.7-10.3) mg/dL ALT 9 L (10-49) U/L Albumin 3.70 L (3.80-4.90) g/dL Albumin/Globulin Ratio 1.12 L (1.60-3.17) g/dL Triglycerides 173.0 H (0.0-149.0) mg/dL Amylase 565 H* (30-110) U/L Lipase 510 H (23-300) U/L 03/19/21 03/19/21 03/19/21 Range/Units 10:30 10:58 11:00 Hgb (13.0-17.5) gm/dL Hct (39.0-53.0) % MCH (25.0-35.0) pg MCHC (31.0-37.0) g/dL RDW (11.5-15.5) % Plt Count (150-450) k/uL Carbon Dioxide (21.6-31.8) mmol/L Anion Gap (4.00-12.00) mmol/L Glucose 116 H (70-110) mg/dL POC Glucose (mg/dL) 56 L 128 H (75-99) mg/dL Calcium (8.7-10.3) mg/dL ALT (10-49) U/L Albumin (3.80-4.90) g/dL Albumin/Globulin Ratio (1.60-3.17) g/dL Triglycerides (0.0-149.0) mg/dL Amylase (30-110) U/L Lipase (23-300) U/L
--- NOTE | 2021-03-19 15:30 | P.PN ---
Subjective Progress Note Date: 03/19/21 This is a 55-year-old male who was recently admitted with abdominal distention along with some increased nausea and vomiting and is being closely monitored. Patient has a history of recurrent bowel obstruction and recently underwent hiatal hernia repair at another facility. General surgery following closely for possible small bowel obstruction. Patient continues to be nothing by mouth with occasional ice chips and continues to have some abdominal distention. Positive bowel sounds noted on exam although patient is not passing gas and has not had any bowel movements. Repeat abdominal x-ray ordered and pending. Patient having some critically low blood sugars in the 40s and 50s and will add dextrose to the IV solution and continue at 75 ML per hour. Review of systems: Constitutional: No reports of fatigue, fever, or chills Cardiovascular: No reports of chest pain or palpitations Respiratory: No reports of shortness of breath or cough GI: reports occasional nausea, no reports of vomiting, or diarrhea, reports continued abdominal pain with no reports of gas or bowel movement : No reports of dysuria or retention Neurovascular: No reports of weakness or numbness All medications have been reviewed. Active Medications Allopurinol (Allopurinol 300 Mg Tab) 300 mg PO DAILY [facility] Last Admin: 03/19/21 09:32 Dose: 300 mg Documented by: Alprazolam (Alprazolam 0.25 Mg Tab) 0.25 mg PO TID PRN PRN Reason: Anxiety Cyclobenzaprine HCl (Cyclobenzaprine 10 Mg Tab) 10 mg PO DAILY PRN PRN Reason: Spasms Escitalopram Oxalate (Escitalopram 10 Mg Tab) 10 mg PO DAILY [facility] Last Admin: 03/19/21 09:32 Dose: 10 mg Documented by: Furosemide (Furosemide 20 Mg Tab) 20 mg PO DAILY PRN PRN Reason: Edema Heparin Sodium (Porcine) (Heparin Sodium,Porcine/Pf 5,000 Unit/0.5 Ml Syringe) 5,000 unit SQ Q12HR [facility] Last Admin: 03/19/21 09:32 Dose: 5,000 unit Documented by: Hydromorphone HCl (Hydromorphone 1 Mg/Ml 1 Ml Syringe) 1 mg IVP Q3HR PRN PRN Reason: Severe Pain Last Admin: 03/18/21 18:04 Dose: 1 mg Documented by: Sodium Chloride 153.8 meq/ (Dextrose/Water) 1,038.45 mls @ 75 mls/hr IV .[id number] [facility]ATT Last Admin: 03/19/21 12:39 Dose: 75 mls/hr Documented by: Naloxone HCl (Naloxone 0.4 Mg/Ml 1 Ml Vial) 0.2 mg IV Q2M PRN PRN Reason: Opioid Reversal Ondansetron HCl (Ondansetron 4 Mg/2 Ml Vial) 4 mg IVP Q8HR PRN PRN Reason: Nausea And Vomiting Last Admin: 03/18/21 12:05 Dose: 4 mg Documented by: Pantoprazole Sodium (Pantoprazole 40 Mg Tablet) 40 mg PO DAILY [facility] Temazepam (Temazepam 15 Mg Cap) 15 mg PO HS PRN PRN Reason: Insomnia Physical exam: Gen: This is a 55-year-old male awake, alert and oriented 3, well-developed, well-nourished. HEENT: Head is atraumatic, normocephalic. Pupils equal, round. Sclerae is anicteric. NECK: Supple. No JVD. No lymphadenopathy. No thyromegaly. LUNGS: Clear to auscultation. No wheezes or rhonchi. No intercostal retractions. HEART: Regular rate and rhythm. No murmur. ABDOMEN: Soft. Bowel sounds are present. No masses. Mild tenderness on palpation. EXTREMITIES: No pedal edema. No calf tenderness. NEUROLOGICAL: Patient is awake, alert and oriented x3. Cranial nerves 2 through 12 are grossly intact. Assessment: Acute small bowel obstruction History of previous recurrent small bowel obstruction and surgery History of laparoscopic hiatal hernia repair recently Hypoglycemia, possibly secondary to nothing by mouth status for continued small bowel obstruction Dilated gallbladder with gallstones Elevated lipase, possible acute pancreatitis Elevated lactic acid Atrial fibrillation history COPD not in acute exacerbation History of CVA, TIA GERD Hypertension Hyperlipidemia seizure disorder history of sleep apnea Full code Plan: Recommend continue with IV hydration as patient continues to be nothing by mouth for small bowel obstruction. Abdomen x-ray ordered and currently pending. Patient is having some episodes of hypoglycemia and will add D10 to the normal saline and continue with Accu-Cheks every 6 and as needed. Surgery following closely. Will repeat a.m. labs and continue to monitor closely. Encouraged increased activity as tolerated. Objective - Vital Signs Vital signs: Vital Signs Temp 98.4 F 03/19/21 04:23 Pulse 76 03/19/21 04:23 Resp 16 09/27/21 04:23 BP 134/87 03/19/21 04:23 Pulse Ox 97 03/19/21 04:23 Intake & Output 03/18/21 03/19/21 03/19/21 18:59 06:59 18:59 Intake Total 1620 1430 Output Total 800 1750 Balance 820 -320 Intake: Intake, IV Titration 1560 1430 Amount Sodium Chloride 0.9% 1, 1560 1430 000 ml @ 130 mls/hr IV . Q7H42M [facility] Rx#:[id number] Oral 60 Output: Urine 800 1750 Other: Voiding Method Toilet Toilet # Voids 2 3 - Labs CBC & Chem 7: 03/19/21 06:22 03/19/21 11:00 Labs: Abnormal Lab Results - Last 24 Hours (Table) 03/18/21 03/19/21 Range/Units 17:45 06:22 Hgb 10.1 L (13.0-17.5) gm/dL Hct 37.1 L (39.0-53.0) % MCH 21.8 L (25.0-35.0) pg MCHC 27.2 L (31.0-37.0) g/dL RDW 19.7 H (11.5-15.5) % Plt Count 113 L (150-450) k/uL Amylase 565 H* (30-110) U/L Lipase 510 H (23-300) U/L
[2021-03-19 17:24] LABS: Glucose,Whole Blood 63 mg/dL (75-99)
[2021-03-19] MEDS ORDERED: DEXTROSE 50% SYRINGE 50 ML IVP STA (17:35)
[2021-03-19 18:07] LABS: Glucose,Whole Blood 106 mg/dL (75-99)
[2021-03-19] MEDS: ONDANSETRON 4 MG/2 ML VIAL IVP PRN (20:16)
[2021-03-19] MEDS: HYDROmorphone 1 MG/ML 1 ML SYRINGE IVP PRN (20:17)
[2021-03-19 20:20] LABS: Glucose,Whole Blood 62 mg/dL (75-99)
[2021-03-19] MEDS ORDERED: DEXTROSE 50% SYRINGE 50 ML IVP ONE ×2 (20:22→23:16)
[2021-03-19 20:45] LABS: Glucose,Whole Blood 109 mg/dL (75-99)
[2021-03-19] MEDS: TEMAZEPAM 15 MG CAP PO PRN (22:58)
[2021-03-19 23:08] LABS: Glucose,Whole Blood 69 mg/dL (75-99)
[2021-03-19 23:55] LABS: Glucose,Whole Blood 112 mg/dL (75-99)
[2021-03-20 01:57] LABS: Glucose,Whole Blood 84 mg/dL (75-99)
[2021-03-20] MEDS ORDERED: DEXTROSE 50% SYRINGE 50 ML IVP ONE (05:06)
[2021-03-20 05:33] LABS: Glucose,Whole Blood 68 mg/dL (75-99)
[2021-03-20 05:36] LABS: Glucose,Whole Blood 117 mg/dL (75-99)
[2021-03-20] MEDS: DEXTROSE 10% IN WATER 1,000 ML with SODIUM CHLORIDE 4MEQ/ML VIAL 153.8 MEQ IV SCH ×2 (05:55→17:21)
--- NOTE | 2021-03-20 07:25 | XR ---
EXAMINATION TYPE: XR abdomen 2V DATE OF EXAM: 03/19/2021 COMPARISON: 03/17/2021 INDICATION: Bowel obstruction TECHNIQUE: Single view abdomen FINDINGS: Non-dilated loops of colon present. Fecal debris is within the colon. Previous small bowel dilatation is not evident. Electronic device overlies the left abdomen. Bilateral hip prostheses are present. Psoas margins are normal. No organomegaly is present. IMPRESSION: 1. Colonic bowel gas with fecal debris. Dilated small bowel loops suggest obstruction are not identif ied this time. Follow-up can be performed as clinically indicated.
[2021-03-20] MEDS: allopurinoL 300 MG TAB PO SCH (07:37)
[2021-03-20] MEDS: ESCITALOPRAM 10 MG TAB PO SCH (07:38)
[2021-03-20] MEDS: PANTOPRAZOLE 40 MG TABLET PO SCH (07:38)
[2021-03-20] MEDS: HEPARIN SODIUM,PORCINE/PF 5,000 UNIT/0.5 ML SYRINGE SQ SCH ×2 (07:38→20:05)
[2021-03-20 07:54] LABS: Glucose,Whole Blood 67 mg/dL (75-99)
[2021-03-20] MEDS ORDERED: DEXTROSE 50% SYRINGE 50 ML IVP STA (07:54)
[2021-03-20 08:30] LABS: Glucose,Whole Blood 101 mg/dL (75-99)
--- NOTE | 2021-03-20 13:00 | P.PN ---
Subjective Progress Note Date: 03/20/21 CHIEF COMPLAINT: Small bowel obstruction HISTORY OF PRESENT ILLNESS: Surgical service is following regards patient's small bowel obstruction. Patient is reporting improvement in his abdominal pain. He denies any nausea or vomiting. Still has not had any flatus or bowel movement for the past 6 days. Postop note from [facility] showed exploratory laparotomy with lysis of adhesions for small bowel obstruction on 01/21/2020. Patient's repeat abdominal x-ray from yesterday had shown colonic bowel gas with fecal debris. No small bowel obstruction noted. Patient was currently nothing by mouth. He reports feeling hungry. He has been having issues with hypoglycemia . Afebrile no new labs PHYSICAL EXAM: VITAL SIGNS: Reviewed. GENERAL: Well-developed in no acute distress. HEENT: No sclera icterus. Extraocular movements grossly intact. Moist buccal mucosa. Head is atraumatic, normocephalic. ABDOMEN: Soft. Nondistended. Nontender. NEUROLOGIC: Alert and oriented. Cranial nerves II through XII grossly intact. ASSESSMENT: 1. Small bowel obstruction 2. Acute pancreatitis with gallstones present on CAT scan and gallbladder dilation noted PLAN: -Advance diet to clear liquids -HIDA scan ordered for further evaluation of gallbladder -Further recommendations forthcoming surgeon Physician Hazmat Technician note has been reviewed by physician. Signing provider agrees with the documented findings, assessment, and plan of care. Objective - Vital Signs Vital signs: Vital Signs Temp 97.5 F L 03/20/21 07:10 Pulse 58 L 03/20/21 10:17 Resp 18 03/20/21 10:17 BP 165/95 03/20/21 07:10 Pulse Ox 100 03/20/21 07:10 Intake & Output 03/19/21 03/20/21 03/20/21 18:59 06:59 18:59 Intake Total 900 Output Total 1999 2600 700 Balance -1999 Weight 108.862 kg Intake: Intake, IV Titration 900 Amount Dextrose 10% in Water 1, 900 000 ml @ 75 mls/hr IV . [id number] [facility]ATT with Sodium Chloride 4Meq/ml Vial 153 .8 meq Rx#:[id number] Output: Urine 1999 2600 700 Other: Voiding Method Toilet Toilet Urinal # Voids 6 - Labs CBC & Chem 7: 03/19/21 06:22 03/19/21 11:00 Labs: Abnormal Lab Results - Last 24 Hours (Table) 03/19/21 03/19/21 03/19/21 Range/Units 17:23 18:06 20:19 POC Glucose (mg/dL) 63 L 106 H 62 L (75-99) mg/dL 03/19/21 03/19/21 03/19/21 Range/Units 20:44 23:07 23:54 POC Glucose (mg/dL) 109 H 69 L 112 H (75-99) mg/dL 03/20/21 03/20/21 03/20/21 Range/Units 04:59 05:34 07:53 POC Glucose (mg/dL) 68 L 117 H 67 L (75-99) mg/dL 03/20/21 Range/Units 08:29 POC Glucose (mg/dL) 101 H (75-99) mg/dL
[2021-03-20 13:40] LABS: Glucose,Whole Blood 65 mg/dL (75-99)
--- NOTE | 2021-03-20 13:42 | P.PN ---
Subjective Progress Note Date: 03/20/21 This is a 55-year-old male who was recently admitted with abdominal distention along with some increased nausea and vomiting and is being closely monitored. Patient has a history of recurrent bowel obstruction and recently underwent hiatal hernia repair at another facility. General surgery following closely for possible small bowel obstruction. Patient continues to be nothing by mouth with occasional ice chips and continues to have some abdominal distention. Positive bowel sounds noted on exam although patient is not passing gas and has not had any bowel movements. Repeat abdominal x-ray ordered and pending. Patient having some critically low blood sugars in the 40s and 50s and will add dextrose to the IV solution and continue at 75 ML per hour. 03/20/2021 Patient is seen and evaluated in follow-up this morning being followed closely by surgery. Patient reports to having some abdominal discomfort although improved from yesterday. Positive bowel sounds noted in all 4 quadrants on exam although reports no passing gas or bowel movements as of yet. Abdominal x-ray showed colonic bowel gas with fecal debris and dilated small bowel loops suggest obstruction are not identified at this time and patient is feeling hungry. Being started on clear liquids and will monitor for tolerance and advance per surgical recommendations. Patient's CT previously showed some gallstones with dilatation and HIDA scan is being ordered. Patient continues to have low glucose readings and will continue dextrose and Accu-Cheks and closely monitor for hypoglycemia. Review of systems: Constitutional: No reports of fatigue, fever, or chills Cardiovascular: No reports of chest pain or palpitations Respiratory: No reports of shortness of breath or cough GI: No reports of nausea, no reports of vomiting, or diarrhea, reports improvement in abdominal pain with no reports of gas or bowel movement : No reports of dysuria or retention Neurovascular: No reports of weakness or numbness All medications have been reviewed. Active Medications Allopurinol (Allopurinol 300 Mg Tab) 300 mg PO DAILY [facility] Last Admin: 03/20/21 07:37 Dose: 300 mg Documented by: Alprazolam (Alprazolam 0.25 Mg Tab) 0.25 mg PO TID PRN PRN Reason: Anxiety Cyclobenzaprine HCl (Cyclobenzaprine 10 Mg Tab) 10 mg PO DAILY PRN PRN Reason: Spasms Escitalopram Oxalate (Escitalopram 10 Mg Tab) 10 mg PO DAILY [facility] Last Admin: 03/20/21 07:38 Dose: 10 mg Documented by: Furosemide (Furosemide 20 Mg Tab) 20 mg PO DAILY PRN PRN Reason: Edema Heparin Sodium (Porcine) (Heparin Sodium,Porcine/Pf 5,000 Unit/0.5 Ml Syringe) 5,000 unit SQ Q12HR [facility] Last Admin: 03/20/21 07:38 Dose: 5,000 unit Documented by: Hydromorphone HCl (Hydromorphone 1 Mg/Ml 1 Ml Syringe) 1 mg IVP Q3HR PRN PRN Reason: Severe Pain Last Admin: 03/19/21 20:17 Dose: 1 mg Documented by: Sodium Chloride 153.8 meq/ (Dextrose/Water) 1,038.45 mls @ 75 mls/hr IV .[id number] [facility] Last Admin: 03/20/21 05:55 Dose: 75 mls/hr Documented by: Naloxone HCl (Naloxone 0.4 Mg/Ml 1 Ml Vial) 0.2 mg IV Q2M PRN PRN Reason: Opioid Reversal Ondansetron HCl (Ondansetron 4 Mg/2 Ml Vial) 4 mg IVP Q8HR PRN PRN Reason: Nausea And Vomiting Last Admin: 03/19/21 20:16 Dose: 4 mg Documented by: Pantoprazole Sodium (Pantoprazole 40 Mg Tablet) 40 mg PO DAILY [facility] Last Admin: 03/20/21 07:38 Dose: 40 mg Documented by: Temazepam (Temazepam 15 Mg Cap) 15 mg PO HS PRN PRN Reason: Insomnia Last Admin: 03/19/21 22:58 Dose: 15 mg Documented by: Physical exam: Gen: This is a 55-year-old male awake, alert and oriented 3, well-developed, well-nourished. HEENT: Head is atraumatic, normocephalic. Pupils equal, round. Sclerae is anicteric. NECK: Supple. No JVD. No lymphadenopathy. No thyromegaly. LUNGS: Clear to auscultation. No wheezes or rhonchi. No intercostal retractions. HEART: Regular rate and rhythm. No murmur. ABDOMEN: Soft. Bowel sounds are present. No masses. Non-tender on palpation. EXTREMITIES: No pedal edema. No calf tenderness. NEUROLOGICAL: Patient is awake, alert and oriented x3. Cranial nerves 2 through 12 are grossly intact. Assessment: Acute small bowel obstruction History of previous recurrent small bowel obstruction and surgery History of laparoscopic hiatal hernia repair recently Hypoglycemia, possibly secondary to nothing by mouth status for continued small bowel obstruction, patient being started on clear liquids Dilated gallbladder with gallstones, HIDA scan ordered and pending Elevated lipase, possible acute pancreatitis Elevated lactic acid Atrial fibrillation history COPD not in acute exacerbation History of CVA, TIA GERD Hypertension Hyperlipidemia seizure disorder history of sleep apnea Full code Plan: Recommend continue with IV hydration as patient continues to have low blood sugar readings and we'll continue D10 and monitor Accu-Cheks closely. HIDA scan ordered and pending for dilated gallbladder and gallstones and surgery is following closely.. Patient is being started on clear liquids. Will repeat a.m. labs and continue to monitor closely. Encouraged increased activity as tolerated. Objective - Vital Signs Vital signs: Vital Signs Temp 97.5 F L 03/20/21 07:10 Pulse 58 L 03/20/21 07:10 Resp 18 03/20/21 07:10 BP 165/95 03/20/21 07:10 Pulse Ox 100 03/20/21 07:10 Intake & Output 03/19/21 03/20/21 03/20/21 18:59 06:59 18:59 Intake Total 900 Output Total 1999 2600 Balance -1999 -170 Weight 108.862 kg Intake: Intake, IV Titration 900 Amount Dextrose 10% in Water 1, 900 000 ml @ 75 mls/hr IV . [id number] [facility] with Sodium Chloride 4Meq/ml Vial 153 .8 meq Rx#:[id number] Output: Urine 1999 2600 Other: Voiding Method Toilet Toilet # Voids 6 - Labs CBC & Chem 7: 03/19/21 06:22 03/19/21 11:00 Labs: Abnormal Lab Results - Last 24 Hours (Table) 03/19/21 03/19/21 03/19/21 Range/Units 06:22 10:30 10:58 Carbon Dioxide 21.0 L (21.6-31.8) mmol/L Anion Gap 14.00 H (4.00-12.00) mmol/L Glucose 46 L* (70-110) mg/dL POC Glucose (mg/dL) 56 L 128 H (75-99) mg/dL Calcium 8.5 L (8.7-10.3) mg/dL ALT 9 L (10-49) U/L Albumin 3.70 L (3.80-4.90) g/dL Albumin/Globulin Ratio 1.12 L (1.60-3.17) g/dL Triglycerides 173.0 H (0.0-149.0) mg/dL 03/19/21 03/19/21 03/19/21 Range/Units 11:00 17:23 18:06 Carbon Dioxide (21.6-31.8) mmol/L Anion Gap (4.00-12.00) mmol/L Glucose 116 H (70-110) mg/dL POC Glucose (mg/dL) 63 L 106 H (75-99) mg/dL Calcium (8.7-10.3) mg/dL ALT (10-49) U/L Albumin (3.80-4.90) g/dL Albumin/Globulin Ratio (1.60-3.17) g/dL Triglycerides (0.0-149.0) mg/dL 03/19/21 03/19/21 03/19/21 Range/Units 20:19 20:44 23:07 Carbon Dioxide (21.6-31.8) mmol/L Anion Gap (4.00-12.00) mmol/L Glucose (70-110) mg/dL POC Glucose (mg/dL) 62 L 109 H 69 L (75-99) mg/dL Calcium (8.7-10.3) mg/dL ALT (10-49) U/L Albumin (3.80-4.90) g/dL Albumin/Globulin Ratio (1.60-3.17) g/dL Triglycerides (0.0-149.0) mg/dL 03/19/21 03/20/21 03/20/21 Range/Units 23:54 04:59 05:34 Carbon Dioxide (21.6-31.8) mmol/L Anion Gap (4.00-12.00) mmol/L Glucose (70-110) mg/dL POC Glucose (mg/dL) 112 H 68 L 117 H (75-99) mg/dL Calcium (8.7-10.3) mg/dL ALT (10-49) U/L Albumin (3.80-4.90) g/dL Albumin/Globulin Ratio (1.60-3.17) g/dL Triglycerides (0.0-149.0) mg/dL 03/20/21 03/20/21 Range/Units 07:53 08:29 Carbon Dioxide (21.6-31.8) mmol/L Anion Gap (4.00-12.00) mmol/L Glucose (70-110) mg/dL POC Glucose (mg/dL) 67 L 101 H (75-99) mg/dL Calcium (8.7-10.3) mg/dL ALT (10-49) U/L Albumin (3.80-4.90) g/dL Albumin/Globulin Ratio (1.60-3.17) g/dL Triglycerides (0.0-149.0) mg/dL
[2021-03-20 14:04] LABS: Glucose,Whole Blood 75 mg/dL (75-99)
--- NOTE | 2021-03-20 14:29 | NM ---
EXAMINATION TYPE: NM hepatobiliary w CCK DATE OF EXAM: 03/20/2021 COMPARISON: Correlation CT 03/18/2021 HISTORY: 55-year-old male abdominal pain TECHNIQUE: After the intravenous administration of 4.8 mCi Tc 99m Mebrofenin hepatobiliary scintigrap hy is performed. Immediate images post injection. Due to fasting for longer than 24 hour period, the patient was given 1.1 mcg IV Kinevac 30 minutes prior to the start of imaging. FINDINGS: There is satisfactory initial accumulation of tracer by the liver. The gallbladder is visualized wit hin 8 minutes. The small bowel activity is noted within 28 minutes. At one hour CCK was administere d, patient was injected with 2.2 mcg of Kinevac, and gallbladder ejection fraction is calculated at 8 0 %, borderline increased. IMPRESSION: 1. No scintigraphic evidence for acute/chronic cholecystitis or biliary dyskinesia. 2. Borderline elevated gallbladder ejection fraction of 80% may be seen with gallbladder hyperkinesis .
[2021-03-20 17:06] LABS: Glucose,Whole Blood 82 mg/dL (75-99)
[2021-03-20 20:53] LABS: Glucose,Whole Blood 97 mg/dL (75-99)
[2021-03-20] MEDS: TEMAZEPAM 15 MG CAP PO PRN (22:04)
[2021-03-21 02:53] LABS: Glucose,Whole Blood 97 mg/dL (75-99)
[2021-03-21] MEDS: DEXTROSE 10% IN WATER 1,000 ML with SODIUM CHLORIDE 4MEQ/ML VIAL 153.8 MEQ IV SCH ×2 (04:24→19:10)
[2021-03-21 06:51] LABS: African American GFR (CKD) >90 (>60 ml/min/1.73 sqM); Anion Gap 8 mmol/L; Blood Urea Nitrogen 5 mg/dL (9-20); Calcium 8.6 mg/dL (8.4-10.2); Carbon Dioxide 30 mmol/L (22-30); Chloride 101 mmol/L (98-107); Glucose 100 mg/dL (74-99); Non-African American GFR(CKD) >90 (>60 ml/min/1.73 sqM); Potassium 3.4 mmol/L (3.5-5.1); Sodium 139 mmol/L (137-145)
[2021-03-21] MEDS ORDERED: POTASSIUM CHLORIDE ER 20 MEQ TAB.ER PO STA (08:05)
[2021-03-21 08:07] LABS: Glucose,Whole Blood 69 mg/dL (75-99)
[2021-03-21] MEDS: HEPARIN SODIUM,PORCINE/PF 5,000 UNIT/0.5 ML SYRINGE SQ SCH ×2 (08:12→19:11)
[2021-03-21] MEDS: PANTOPRAZOLE 40 MG TABLET PO SCH (08:13)
[2021-03-21] MEDS: allopurinoL 300 MG TAB PO SCH (08:13)
[2021-03-21] MEDS: ESCITALOPRAM 10 MG TAB PO SCH (08:13)
[2021-03-21 08:25] LABS: Glucose,Whole Blood 87 mg/dL (75-99)
[2021-03-21 12:45] LABS: Glucose,Whole Blood 74 mg/dL (75-99)
--- NOTE | 2021-03-21 14:36 | P.PN ---
Subjective Progress Note Date: 03/21/21 CHIEF COMPLAINT: Small bowel obstruction HISTORY OF PRESENT ILLNESS: Surgical service is following regards patient's small bowel obstruction. Patient is reporting improvement in his abdominal pain. He denies any nausea or vomiting. Still has not had any flatus or bowel movement for the past 7 days. Patient had HIDA scan completed showing no ultrasound evidence for acute or chronic cholecystitis or biliary dyskinesia. Borderline elevated gallbladder ejection fraction of 80% may be seen with gallb ladder hyperkinesia. Afebrile potassium 3.4 PHYSICAL EXAM: VITAL SIGNS: Reviewed. GENERAL: Well-developed in no acute distress. HEENT: No sclera icterus. Extraocular movements grossly intact. Moist buccal mucosa. Head is atraumatic, normocephalic. ABDOMEN: Soft. Nondistended. Nontender. NEUROLOGIC: Alert and oriented. Cranial nerves II through XII grossly intact. ASSESSMENT: 1. Small bowel obstruction resolved 2. Acute pancreatitis with gallstones present on CAT scan and gallbladder dilation noted 3. Hyperkinetic gallbladder PLAN: -Advance diet to regular -We'll give lactulose for constipation -Further workup for hyperkinetic gallbladder can be completed outpatient Physician Nonfarm Animal Caretaker note has been reviewed by physician. Signing provider agrees with the documented findings, assessment, and plan of care. Objective - Vital Signs Vital signs: Vital Signs Temp 97.8 F 03/21/21 11:57 Pulse 77 03/21/21 11:57 Resp 20 03/21/21 11:57 BP 125/87 03/21/21 11:57 Pulse Ox 98 03/21/21 11:57 Intake & Output 03/20/21 03/21/21 03/21/21 18:59 06:59 18:59 Intake Total 900 900 Output Total 700 800 Balance 200 900 -800 Weight 108.862 kg Intake: Intake, IV Titration 900 900 Amount Dextrose 10% in Water 1, 900 900 000 ml @ 75 mls/hr IV . [id number] [facility] with Sodium Chloride 4Meq/ml Vial 153 .8 meq Rx#:[id number] Output: Urine 700 800 Other: Voiding Method Urinal Urinal Urinal # Voids 3 2 - Labs CBC & Chem 7: 03/19/21 06:22 03/21/21 06:15 Labs: Abnormal Lab Results - Last 24 Hours (Table) 03/20/21 03/21/21 03/21/21 Range/Units 13:38 06:15 08:05 Potassium 3.4 L (3.5-5.1) mmol/L BUN 5 L (9-20) mg/dL Glucose 100 H (74-99) mg/dL POC Glucose (mg/dL) 65 L 69 L (75-99) mg/dL 03/21/21 Range/Units 12:44 Potassium (3.5-5.1) mmol/L BUN (9-20) mg/dL Glucose (74-99) mg/dL POC Glucose (mg/dL) 74 L (75-99) mg/dL
[2021-03-21] MEDS ORDERED: LACTULOSE 20 GM/30 ML CUP PO ONE (14:45)
[2021-03-21 17:22] LABS: Glucose,Whole Blood 81 mg/dL (75-99)
[2021-03-21] MEDS: ONDANSETRON 4 MG/2 ML VIAL IVP PRN (19:10)
--- NOTE | 2021-03-21 19:24 | P.PN ---
Subjective Progress Note Date: 03/21/21 This is a 55-year-old male who was recently admitted with abdominal distention along with some increased nausea and vomiting and is being closely monitored. Patient has a history of recurrent bowel obstruction and recently underwent hiatal hernia repair at another facility. General surgery following closely for possible small bowel obstruction. Patient continues to be nothing by mouth with occasional ice chips and continues to have some abdominal distention. Positive bowel sounds noted on exam although patient is not passing gas and has not had any bowel movements. Repeat abdominal x-ray ordered and pending. Patient having some critically low blood sugars in the 40s and 50s and will add dextrose to the IV solution and continue at 75 ML per hour. 03/20/2021 Patient is seen and evaluated in follow-up this morning being followed closely by surgery. Patient reports to having some abdominal discomfort although improved from yesterday. Positive bowel sounds noted in all 4 quadrants on exam although reports no passing gas or bowel movements as of yet. Abdominal x-ray showed colonic bowel gas with fecal debris and dilated small bowel loops suggest obstruction are not identified at this time and patient is feeling hungry. Being started on clear liquids and will monitor for tolerance and advance per surgical recommendations. Patient's CT previously showed some gallstones with dilatation and HIDA scan is being ordered. Patient continues to have low glucose readings and will continue dextrose and Accu-Cheks and closely monitor for hypoglycemia. 03/21/2021 Patient is seen in follow up and states that his abdominal pain is improving. Patient continues to have no gas with no bowel movements and bowel sounds are hypoactive today. Patient is on clear liquid diet and tolerating and requesting increase in diet. Surgery following and have increased diet to regular to monitor for tolerance and bowel activity. Encouraged frequent walking. Hida scan shows no evidence of acute chronic cholecystitis or biliary dyskinesia. Recommend outpatient follow up for further work up. Potassium 3.4 today and being replaced. Review of systems: Constitutional: No reports of fatigue, fever, or chills Cardiovascular: No reports of chest pain or palpitations Respiratory: No reports of shortness of breath or cough GI: No reports of nausea, no reports of vomiting, or diarrhea, reports improv ement in abdominal pain with no reports of gas or bowel movement : No reports of dysuria or retention Neurovascular: No reports of weakness or numbness All medications have been reviewed. Active Medications Allopurinol (Allopurinol 300 Mg Tab) 300 mg PO DAILY [facility] Last Admin: 03/21/21 08:13 Dose: 300 mg Documented by: Alprazolam (Alprazolam 0.25 Mg Tab) 0.25 mg PO TID PRN PRN Reason: Anxiety Cyclobenzaprine HCl (Cyclobenzaprine 10 Mg Tab) 10 mg PO DAILY PRN PRN Reason: Spasms Escitalopram Oxalate (Escitalopram 10 Mg Tab) 10 mg PO DAILY [facility] Last Admin: 03/21/21 08:13 Dose: 10 mg Documented by: Furosemide (Furosemide 20 Mg Tab) 20 mg PO DAILY PRN PRN Reason: Edema Heparin Sodium (Porcine) (Heparin Sodium,Porcine/Pf 5,000 Unit/0.5 Ml Syringe) 5,000 unit SQ Q12HR [facility] Last Admin: 03/21/21 19:11 Dose: 5,000 unit Documented by: Hydromorphone HCl (Hydromorphone 1 Mg/Ml 1 Ml Syringe) 1 mg IVP Q3HR PRN PRN Reason: Severe Pain Last Admin: 03/19/21 20:17 Dose: 1 mg Documented by: Sodium Chloride 153.8 meq/ (Dextrose/Water) 1,038.45 mls @ 75 mls/hr IV .[id number] [facility] Last Admin: 03/21/21 19:10 Dose: 75 mls/hr Documented by: Naloxone HCl (Naloxone 0.4 Mg/Ml 1 Ml Vial) 0.2 mg IV Q2M PRN PRN Reason: Opioid Reversal Ondansetron HCl (Ondansetron 4 Mg/2 Ml Vial) 4 mg IVP Q8HR PRN PRN Reason: Nausea And Vomiting Last Admin: 03/21/21 19:10 Dose: 4 mg Documented by: Pantoprazole Sodium (Pantoprazole 40 Mg Tablet) 40 mg PO DAILY [facility] Last Admin: 03/21/21 08:13 Dose: 40 mg Documented by: Temazepam (Temazepam 15 Mg Cap) 15 mg PO HS PRN PRN Reason: Insomnia Last Admin: 03/20/21 22:04 Dose: 15 mg Documented by: Physical exam: Gen: This is a 55-year-old male awake, alert and oriented 3, well-developed, well-nourished. HEENT: Head is atraumatic, normocephalic. Pupils equal, round. Sclerae is anicteric. NECK: Supple. No JVD. No lymphadenopathy. No thyromegaly. LUNGS: Clear to auscultation. No wheezes or rhonchi. No intercostal retractions. HEART: Regular rate and rhythm. No murmur. ABDOMEN: Soft. Bowel sounds are present although hypoactive today. No masses. Non-tender on palpation. EXTREMITIES: No pedal edema. No calf tenderness. NEUROLOGICAL: Patient is awake, alert and oriented x3. Cranial nerves 2 through 12 are grossly intact. Assessment: Acute small bowel obstruction History of previous recurrent small bowel obstruction and surgery History of laparoscopic hiatal hernia repair recently Hypoglycemia, possibly secondary to nothing by mouth status for continued small bowel obstruction, patient being started on clear liquids Dilated gallbladder with gallstones, HIDA scan normal no signs of cholecystitis Elevated lipase, possible acute pancreatitis Elevated lactic acid Atrial fibrillation history COPD not in acute exacerbation History of CVA, TIA GERD Hypertension Hyperlipidemia seizure disorder history of sleep apnea Full code Plan: Recommend continue with IV hydration as patient continues to have low blood sugar readings and we'll continue D10 and monitor Accu-Cheks closely. HIDA scan negative and surgery is following closely.. Patient is being advanced to regular. Replace potassium. Will repeat a.m. labs and continue to monitor closely. Encouraged increased activity as tolerated. Possible discharge in 24- 48 hours. Objective - Vital Signs Vital signs: Vital Signs Temp 98 F 03/21/21 07:06 Pulse 71 03/21/21 07:06 Resp 16 03/21/21 07:06 BP 131/86 03/21/21 07:06 Pulse Ox 96 03/21/21 07:06 Intake & Output 03/20/21 03/21/21 03/21/21 18:59 06:59 18:59 Intake Total 900 900 Output Total 700 Balance 200 900 Intake: Intake, IV Titration 900 900 Amount Dextrose 10% in Water 1, 900 900 000 ml @ 75 mls/hr IV . [id number] [facility] with Sodium Chloride 4Meq/ml Vial 153 .8 meq Rx#:[id number] Output: Urine 700 Other: Voiding Method Urinal Urinal # Voids 3 - Labs CBC & Chem 7: 03/19/21 06:22 03/21/21 06:15 Labs: Abnormal Lab Results - Last 24 Hours (Table) 09/03/21/21 03/21/21 Range/Units 13:38 06:15 08:05 Potassium 3.4 L (3.5-5.1) mmol/L BUN 5 L (9-20) mg/dL Glucose 100 H (74-99) mg/dL POC Glucose (mg/dL) 65 L 69 L (75-99) mg/dL
[2021-03-21] MEDS: HYDROmorphone 1 MG/ML 1 ML SYRINGE IVP PRN (20:34)
[2021-03-21] MEDS: TEMAZEPAM 15 MG CAP PO PRN (21:39)
[2021-03-22 00:10] LABS: Glucose,Whole Blood 82 mg/dL (75-99)
[2021-03-22 05:32] LABS: Glucose,Whole Blood 59 mg/dL (75-99)
[2021-03-22] MEDS: DEXTROSE 10% IN WATER 1,000 ML with SODIUM CHLORIDE 4MEQ/ML VIAL 153.8 MEQ IV SCH ×2 (05:43→20:31)
[2021-03-22 05:55] LABS: Glucose,Whole Blood 56 mg/dL (75-99)
[2021-03-22] MEDS ORDERED: DEXTROSE 50% SYRINGE 50 ML IVP STA ×2 (05:57→12:12)
[2021-03-22 06:32] LABS: Glucose,Whole Blood 97 mg/dL (75-99)
[2021-03-22 08:40] LABS: African American GFR (CKD) >90 (>60 ml/min/1.73 sqM); Anion Gap 9 mmol/L; Blood Urea Nitrogen 4 mg/dL (9-20); Calcium 8.6 mg/dL (8.4-10.2); Carbon Dioxide 28 mmol/L (22-30); Chloride 101 mmol/L (98-107); Glucose 70 mg/dL (74-99); Non-African American GFR(CKD) >90 (>60 ml/min/1.73 sqM); Sodium 138 mmol/L (137-145)
[2021-03-22] MEDS: HEPARIN SODIUM,PORCINE/PF 5,000 UNIT/0.5 ML SYRINGE SQ SCH ×2 (09:02→20:31)
[2021-03-22] MEDS: ESCITALOPRAM 10 MG TAB PO SCH (09:03)
[2021-03-22] MEDS: PANTOPRAZOLE 40 MG TABLET PO SCH (09:03)
[2021-03-22] MEDS: allopurinoL 300 MG TAB PO SCH (09:03)
[2021-03-22 09:04] LABS: Potassium 4.4 mmol/L (3.5-5.1)
[2021-03-22] MEDS: ONDANSETRON 4 MG/2 ML VIAL IVP PRN (09:26)
[2021-03-22 11:46] LABS: Glucose,Whole Blood 41 mg/dL (75-99)
[2021-03-22 12:12] LABS: Glucose,Whole Blood 40 mg/dL (75-99)
[2021-03-22] MEDS ORDERED: DEXTROSE 50% SYRINGE 50 ML IVP ONE (12:12)
[2021-03-22 12:46] LABS: Glucose,Whole Blood 100 mg/dL (75-99)
[2021-03-22] MEDS ORDERED: IOPAMIDOL CONTRAST (ORAL USE) VIAL PO PRN (14:00)
--- NOTE | 2021-03-22 14:26 | P.PN ---
Subjective Progress Note Date: 03/22/21 CHIEF COMPLAINT: Small bowel obstruction HISTORY OF PRESENT ILLNESS: Surgical service is following regards patient's small bowel obstruction and hyperkinetic gallbladder. Patient started on a regular diet yesterday evening. Since then he has complained of right upper quadrant pain and mid abdominal pain with nausea and vomiting. He is having flatus. No bowel movement. Afebrile sodium 138 potassium 4.4 cr 0.79 PHYSICAL EXAM: VITAL SIGNS: Reviewed. GENERAL: Well-developed in no acute distress. HEENT: No sclera icterus. Extraocular movements grossly intact. Moist buccal mucosa. Head is atraumatic, normocephalic. ABDOMEN: Soft. Nondistended. Tenderness to palpation of the right upper qu adrant and mid abdomen NEUROLOGIC: Alert and oriented. Cranial nerves II through XII grossly intact. ASSESSMENT: 1. Small bowel obstruction 2. Acute pancreatitis with gallstones present on CAT scan and gallbladder dilation noted 3. Hyperkinetic gallbladder PLAN: -Check computed tomography scan abdomen and pelvis with oral contrast -Downgrade diet to clears due to the nausea and vomiting -Patient scheduled tentatively for laparoscopic cholecystectomy on 03/26/2021 -Continue antiemetics as needed Physician Obstetrics Teacher note has been reviewed by physician. Signing provider agrees with the documented findings, assessment, and plan of care. Objective - Vital Signs Vital signs: Vital Signs Temp 97.9 F 03/22/21 04:25 Pulse 69 03/22/21 04:25 Resp 18 03/22/21 04:25 BP 122/75 03/22/21 04:25 Pulse Ox 96 03/22/21 04:25 Intake & Output 03/21/21 03/22/21 03/22/21 18:59 06:59 18:59 Intake Total 1300 Output Total 1100 1000 Balance -1100 300 Weight 108.862 kg Intake: Intake, IV Titration 900 Amount Dextrose 10% in Water 1, 900 000 ml @ 75 mls/hr IV . [id number] [facility] with Sodium Chloride 4Meq/ml Vial 153 .8 meq Rx#:[id number] Oral 400 Output: Urine 1100 1000 Other: Voiding Method Urinal Urinal Urinal # Voids 2 - Labs CBC & Chem 7: 03/19/21 06:22 03/22/21 07:20 Labs: Abnormal Lab Results - Last 24 Hours (Table) 03/21/21 03/22/21 03/22/21 Range/Units 12:44 05:32 05:53 BUN (9-20) mg/dL Glucose (74-99) mg/dL POC Glucose (mg/dL) 74 L 59 L 56 L (75-99) mg/dL 03/22/21 Range/Units 07:20 BUN 4 L (9-20) mg/dL Glucose 70 L (74-99) mg/dL POC Glucose (mg/dL) (75-99) mg/dL
--- NOTE | 2021-03-22 16:27 | CT ---
EXAMINATION TYPE: CT abdomen pelvis wo con DATE OF EXAM: 03/22/2021 COMPARISON: 03/18/2021 HISTORY: Pain Examination of the solid and hollow viscera is limited given the lack of contrast. FINDINGS: LUNG BASES: No evidence for nodule. No evidence for infiltrate. Small fixed hiatal hernia. LIVER/GB: Small gallstones noted. The gallbladder is less distended than on prior study. No space-occ upying hepatic lesion. PANCREAS: No pancreatic mass identified. No inflammatory process seen. SPLEEN: No evidence for splenomegaly. No intrasplenic lesions seen. Splenic granuloma. ADRENALS: No adrenal nodules identified. No evidence for thickening. KIDNEYS: No evidence for renal mass. No nephrolithiasis. No hydronephrosis. BOWEL: Previously noted dilated loops of small bowel have improved significantly in the interval. The re couple mildly prominent loops of small bowel anteriorly measuring up to 2.9 cm. Moderate fecal sta sis noted. No evidence for free air, abscess or inflammatory process. Lymph nodes: No evidence for adenopathy greater than 1 cm. Abdominal aorta: Atheromatous changes seen. No evidence for aneurysm. Genital organs: No significant abnormality. Other: Bilateral hip prostheses with streak artifact limiting evaluation. IMPRESSION: 1. Previously noted dilated loops of small bowel have improved significantly in the interval. There c ouple mildly prominent loops of small bowel anteriorly measuring up to 2.9 cm. Moderate fecal stasis noted. 2. Previously noted distended gallbladder has resolved. Small gallstones persist.
--- NOTE | 2021-03-22 16:33 | P.PN ---
Subjective Progress Note Date: 03/22/21 This is a 55-year-old male who was recently admitted with abdominal distention along with some increased nausea and vomiting and is being closely monitored. Patient has a history of recurrent bowel obstruction and recently underwent hiatal hernia repair at another facility. General surgery following closely for possible small bowel obstruction. Patient continues to be nothing by mouth with occasional ice chips and continues to have some abdominal distention. Positive bowel sounds noted on exam although patient is not passing gas and has not had any bowel movements. Repeat abdominal x-ray ordered and pending. Patient having some critically low blood sugars in the 40s and 50s and will add dextrose to the IV solution and continue at 75 ML per hour. 03/20/2021 Patient is seen and evaluated in follow-up this morning being followed closely by surgery. Patient reports to having some abdominal discomfort although improved from yesterday. Positive bowel sounds noted in all 4 quadrants on exam although reports no passing gas or bowel movements as of yet. Abdominal x-ray showed colonic bowel gas with fecal debris and dilated small bowel loops suggest obstruction are not identified at this time and patient is feeling hungry. Being started on clear liquids and will monitor for tolerance and advance per surgical recommendations. Patient's CT previously showed some gallstones with dilatation and HIDA scan is being ordered. Patient continues to have low glucose readings and will continue dextrose and Accu-Cheks and closely monitor for hypoglycemia. 03/21/2021 Patient is seen in follow up and states that his abdominal pain is improving. Patient continues to have no gas with no bowel movements and bowel sounds are hypoactive today. Patient is on clear liquid diet and tolerating and requesting increase in diet. Surgery following and have increased diet to regular to monitor for tolerance and bowel activity. Encouraged frequent walking. Hida scan shows no evidence of acute chronic cholecystitis or biliary dyskinesia. Recommend outpatient follow up for further work up. Potassium 3.4 today and being replaced. 03/22/2021 Patient is seen and evaluated in follow-up this morning continues to have hypoglycemic events with no symptoms noted until Accu-Chek is performed and bloo d sugars have been in the low 50s to 60s requiring boluses of dextrose and patient is continued on D10 at 75 ML per hour. Will order C-peptide and insulin level and increase IV hydration to 100 ML per hour with continued Accu-Cheks and close monitoring. Patient attempted a regular diet and had increasing abdominal pain associated with nausea and vomiting after eating an increased right upper quadrant pain and surgery is following closely and plans are for tentative cholecystectomy this Friday. Patient diet will be decreased back to clear liquids and will continue to monitor tolerance closely. Patient reports passing gas but has not had any bowel movements. Encouraged increased activity and will continue to monitor. Sodium today is 138 with a potassium of 4.4 and current creatinine is 0.79. Patient also experiencing mild low-grade fevers of 99 and 99.8 last night and this morning. Will repeat labs along with a chest x-ray in the morning. Review of systems: Constitutional: No reports of fatigue, fever, or chills Cardiovascular: No reports of chest pain or palpitations Respiratory: No reports of shortness of breath or cough GI: reports of nausea and vomiting, with abdominal pain after advancing diet and is passing gas but no bowel movements as of yet : No reports of dysuria or retention Neurovascular: No reports of weakness or numbness All medications have been reviewed. Active Medications Allopurinol (Allopurinol 300 Mg Tab) 300 mg PO DAILY [facility] Last Admin: 03/22/21 09:03 Dose: 300 mg Documented by: Alprazolam (Alprazolam 0.25 Mg Tab) 0.25 mg PO TID PRN PRN Reason: Anxiety Cyclobenzaprine HCl (Cyclobenzaprine 10 Mg Tab) 10 mg PO DAILY PRN PRN Reason: Spasms Escitalopram Oxalate (Escitalopram 10 Mg Tab) 10 mg PO DAILY [facility] Last Admin: 03/22/21 09:03 Dose: 10 mg Documented by: Furosemide (Furosemide 20 Mg Tab) 20 mg PO DAILY PRN PRN Reason: Edema Heparin Sodium (Porcine) (Heparin Sodium,Porcine/Pf 5,000 Unit/0.5 Ml Syringe) 5,000 unit SQ Q12HR [facility] Last Admin: 03/22/21 09:02 Dose: 5,000 unit Documented by: Hydromorphone HCl (Hydromorphone 1 Mg/Ml 1 Ml Syringe) 1 mg IVP Q3HR PRN PRN Reason: Severe Pain Last Admin: 03/21/21 20:34 Dose: 1 mg Documented by: Sodium Chloride 153.8 meq/ (Dextrose/Water) 1,038.45 mls @ 75 mls/hr IV .[id number] [facility] Last Admin: 03/22/21 05:43 Dose: 75 mls/hr Documented by: Iopamidol (Iopamidol Contrast (Oral Use) Vial) 30 ml PO Q60M PRN PRN Reason: CT Scan Stop: 03/23/21 14:01 Last Admin: 03/22/21 14:41 Dose: 30 ml Documented by: Naloxone HCl (Naloxone 0.4 Mg/Ml 1 Ml Vial) 0.2 mg IV Q2M PRN PRN Reason: Opioid Reversal Ondansetron HCl (Ondansetron 4 Mg/2 Ml Vial) 4 mg IVP Q8HR PRN PRN Reason: Nausea And Vomiting Last Admin: 03/22/21 09:26 Dose: 4 mg Documented by: Pantoprazole Sodium (Pantoprazole 40 Mg Tablet) 40 mg PO DAILY [facility] Last Admin: 03/22/21 09:03 Dose: 40 mg Documented by: Temazepam (Temazepam 15 Mg Cap) 15 mg PO HS PRN PRN Reason: Insomnia Last Admin: 03/21/21 21:39 Dose: 15 mg Documented by: Physical exam: Gen: This is a 55-year-old male awake, alert and oriented 3, well-developed, well-nourished. HEENT: Head is atraumatic, normocephalic. Pupils equal, round. Sclerae is anicteric. NECK: Supple. No JVD. No lymphadenopathy. No thyromegaly. LUNGS: Clear to auscultation. No wheezes or rhonchi. No intercostal retr actions. HEART: Regular rate and rhythm. No murmur. ABDOMEN: Soft. Bowel sounds are present although hypoactive today. No masses. Tenderness noted of the right upper quadrant EXTREMITIES: No pedal edema. No calf tenderness. NEUROLOGICAL: Patient is awake, alert and oriented x3. Cranial nerves 2 through 12 are grossly intact. Assessment: Acute small bowel obstruction History of previous recurrent small bowel obstruction and surgery History of laparoscopic hiatal hernia repair recently Hypoglycemia, possibly secondary to nothing by mouth status for continued small bowel obstruction, patient to continue on clear liquids and will increase IV hydration of D 10-100 ML per hour with close monitoring Dilated gallbladder with gallstones, HIDA scan normal no signs of cholecystitis, plans are for possible laparoscopic cholecystectomy with surgery this Friday Elevated lipase, possible acute pancreatitis Elevated lactic acid, improved Atrial fibrillation history COPD not in acute exacerbation History of CVA, TIA GERD Hypertension Hyperlipidemia seizure disorder history of sleep apnea Full code Plan: Recommend continue with IV hydration as patient continues to have low blood sugar readings and we'll continue D10 and monitor Accu-Cheks closely. Will increase hydration rate to 100 ML per hour as patient continues to have low blood sugar readings throughout the day. Decreased diet back to clear liquids as patient was experiencing nausea and vomiting with increasing abdominal pain especially after eating along with right upper quadrant pain and tenderness on palpation. HIDA scan negative and surgery is following closely.. Discussion is being had about possible laparoscopic cholecystectomy this Friday. Will repeat a.m. labs and continue to monitor closely. Encouraged increased activity as tolerated. Objective - Vital Signs Vital signs: Vital Signs Temp 97.9 F 03/22/21 04:25 Pulse 69 03/22/21 04:25 Resp 18 03/22/21 04:25 BP 122/75 03/22/21 04:25 Pulse Ox 96 03/22/21 04:25 Intake & Output 03/21/21 03/22/21 03/22/21 18:59 06:59 18:59 Intake Total 1300 Output Total 1100 1000 Balance -1100 300 Weight 108.862 kg Intake: Intake, IV Titration 900 Amount Dextrose 10% in Water 1, 900 000 ml @ 75 mls/hr IV . [id number] [facility] with Sodium Chloride 4Meq/ml Vial 153 .8 meq Rx#:[id number] Oral 400 Output: Urine 1100 1000 Other: Voiding Method Urinal Urinal # Voids 2 - Labs CBC & Chem 7: 03/19/21 06:22 03/22/21 07:20 Labs: Abnormal Lab Results - Last 24 Hours (Table) 03/21/21 03/22/21 03/22/21 Range/Units 12:44 05:32 05:53 BUN (9-20) mg/dL Glucose (74-99) mg/dL POC Glucose (mg/dL) 74 L 59 L 56 L (75-99) mg/dL 03/22/21 Range/Units 07:20 BUN 4 L (9-20) mg/dL Glucose 70 L (74-99) mg/dL POC Glucose (mg/dL) (75-99) mg/dL
[2021-03-22] MEDS ORDERED: DEXTROSE 50% SYRINGE 50 ML IVP PRN (16:37)
[2021-03-22 16:39] LABS: Glucose,Whole Blood 56 mg/dL (75-99)
[2021-03-22 17:02] LABS: Glucose,Whole Blood 71 mg/dL (75-99)
[2021-03-22] MEDS: TEMAZEPAM 15 MG CAP PO PRN (22:05)
[2021-03-23 00:31] LABS: Glucose,Whole Blood 54 mg/dL (75-99)
[2021-03-23 00:59] LABS: Glucose,Whole Blood 120 mg/dL (75-99)
[2021-03-23] MEDS ORDERED: DEXTROSE 50% SYRINGE 50 ML IVP ONE (05:56)
[2021-03-23 05:59] LABS: Glucose,Whole Blood 53 mg/dL (75-99)
[2021-03-23] MEDS: DEXTROSE 10% IN WATER 1,000 ML with SODIUM CHLORIDE 4MEQ/ML VIAL 153.8 MEQ IV SCH ×2 (06:04→18:44)
[2021-03-23 06:23] LABS: Glucose,Whole Blood 96 mg/dL (75-99)
[2021-03-23 06:50] LABS: African American GFR (CKD) >90 (>60 ml/min/1.73 sqM); Anion Gap 8 mmol/L; Blood Urea Nitrogen 4 mg/dL (9-20); Calcium 8.8 mg/dL (8.4-10.2); Carbon Dioxide 29 mmol/L (22-30); Chloride 101 mmol/L (98-107); Glucose 96 mg/dL (74-99); Non-African American GFR(CKD) >90 (>60 ml/min/1.73 sqM); Potassium 3.9 mmol/L (3.5-5.1); Sodium 138 mmol/L (137-145)
--- NOTE | 2021-03-23 06:57 | XR ---
EXAMINATION TYPE: XR chest 1V portable DATE OF EXAM: 03/23/2021 COMPARISON: 03/17/2021 INDICATION: Shortness of breath TECHNIQUE: Single frontal view of the chest is obtained. Left costophrenic angle is partially obscure d from view FINDINGS: The heart size is normal. The pulmonary vasculature is normal. The lungs are clear. Postsurgical changes are within the cervical thoracic region IMPRESSION: 1. No acute pulmonary process.
[2021-03-23 07:16] LABS: Anisocytosis Moderate; Basophils % (A) 0 %; Eosinophils # (A) 0.4 k/uL (0-0.7); Eosinophils % (A) 10 %; HCT 39.4 % (39.0-53.0); HGB 11.7 gm/dL (13.0-17.5); Hypochromasia Marked; Lymphocytes # (A) 1.5 k/uL (1.0-4.8); Lymphocytes % (A) 42 %; MCH 22.7 pg (25.0-35.0); MCHC 29.8 g/dL (31.0-37.0); MCV 76.3 fL (80.0-100.0); Mean Platelet Volume 7.5; Microcytosis Moderate; Monocytes # (A) 0.3 k/uL (0-1.0); Monocytes % (A) 8 %; Neutrophils # (A) 1.2 k/uL (1.3-7.7); Neutrophils % (A) 36 %; Platelet Count 101 k/uL (150-450); Poikilocytosis Slight; RBC 5.16 m/uL (4.30-5.90); WBC 3.5 k/uL (3.8-10.6)
[2021-03-23] MEDS: PANTOPRAZOLE 40 MG TABLET PO SCH (08:57)
[2021-03-23] MEDS: HEPARIN SODIUM,PORCINE/PF 5,000 UNIT/0.5 ML SYRINGE SQ SCH ×2 (08:57→21:15)
[2021-03-23] MEDS: allopurinoL 300 MG TAB PO SCH (08:57)
[2021-03-23] MEDS: ESCITALOPRAM 10 MG TAB PO SCH (08:57)
[2021-03-23 11:30] LABS: Glucose,Whole Blood 78 mg/dL (75-99)
--- NOTE | 2021-03-23 14:00 | P.PN ---
Subjective Progress Note Date: 03/23/21 CHIEF COMPLAINT: Small bowel obstruction HISTORY OF PRESENT ILLNESS: Surgical service is following regards patient's small bowel obstruction and hyperkinetic gallbladder. Patient tolerating clear liquid diet. He is complaining of right upper quadrant abdominal pain but reports it better than yesterday.. His nausea and vomiting has improved. He is having flatus. No bowel movement. Patient started on a regular diet yesterday evening. Afebrile WBC is 3.5 hemoglobin 11.7 platelets 101 creatinine 0.76 blood sugar low again this morning at 53 Computed tomography scan abdomen and pelvis previously noted dilated loops of small bowel have improved significantly in the interval. There are couple m ildly prominent loops of small bowel anteriorly measuring up to 2.5 cm. Moderate fecal stasis noted. Previously noted distended gallbladder has resolved. Small gallstones persist. PHYSICAL EXAM: VITAL SIGNS: Reviewed. GENERAL: Well-developed in no acute distress. HEENT: No sclera icterus. Extraocular movements grossly intact. Moist buccal mucosa. Head is atraumatic, normocephalic. ABDOMEN: Soft. Nondistended. Tenderness to palpation of the right upper quadrant NEUROLOGIC: Alert and oriented. Cranial nerves II through XII grossly intact. ASSESSMENT: 1. Small bowel obstruction improving 2. Acute pancreatitis with gallstones present on CAT scan and gallbladder dilation noted 3. Hyperkinetic gallbladder PLAN: -Advance diet to full liquids -Give lactulose and soapsuds enemas for fecal stasis -Patient scheduled for laparoscopic cholecystectomy on 03/26/2021 -Encourage patient to ambulate Physician [employer] Librarian note has been reviewed by physician. Signing provider agrees with the documented findings, assessment, and plan of care. Objective - Vital Signs Vital signs: Vital Signs Temp 97.4 F L 03/23/21 11:17 Pulse 68 03/23/21 11:17 Resp 14 03/23/21 11:17 BP 129/79 03/23/21 11:17 Pulse Ox 95 03/23/21 11:17 Intake & Output 03/22/21 03/23/21 03/23/21 18:59 06:59 18:59 Intake Total 1320 740 Output Total 1000 1350 Balance 320 -610 Intake: Oral 1320 740 Output: Urine 1000 1350 Other: Voiding Method Urinal Urinal Urinal - Labs CBC & Chem 7: 03/23/21 05:57 03/23/21 05:57 Labs: Abnormal Lab Results - Last 24 Hours (Table) 03/22/21 03/22/21 03/23/21 Range/Units 16:28 16:58 00:29 WBC (3.8-10.6) k/uL Hgb (13.0-17.5) gm/dL MCV (80.0-100.0) fL MCH (25.0-35.0) pg MCHC (31.0-37.0) g/dL RDW (11.5-15.5) % Plt Count (150-450) k/uL Neutrophils # (1.3-7.7) k/uL BUN (9-20) mg/dL POC Glucose (mg/dL) 56 L 71 L 54 L (75-99) mg/dL 03/23/21 03/23/21 03/23/21 Range/Units 00:58 05:57 05:57 WBC 3.5 L (3.8-10.6) k/uL Hgb 11.7 L (13.0-17.5) gm/dL MCV 76.3 L (80.0-100.0) fL MCH 22.7 L (25.0-35.0) pg MCHC 29.8 L (31.0-37.0) g/dL RDW 20.0 H (11.5-15.5) % Plt Count 101 L (150-450) k/uL Neutrophils # 1.2 L (1.3-7.7) k/uL BUN 4 L (9-20) mg/dL POC Glucose (mg/dL) 120 H (75-99) mg/dL 03/23/21 Range/Units 05:57 WBC (3.8-10.6) k/uL Hgb (13.0-17.5) gm/dL MCV (80.0-100.0) fL MCH (25.0-35.0) pg MCHC (31.0-37.0) g/dL RDW (11.5-15.5) % Plt Count (150-450) k/uL Neutrophils # (1.3-7.7) k/uL BUN (9-20) mg/dL POC Glucose (mg/dL) 53 L (75-99) mg/dL
--- NOTE | 2021-03-23 16:01 | P.PN ---
Subjective Progress Note Date: 03/23/21 This is a 55-year-old male who was recently admitted with abdominal distention along with some increased nausea and vomiting and is being closely monitored. Patient has a history of recurrent bowel obstruction and recently underwent hiatal hernia repair at another facility. General surgery following closely for possible small bowel obstruction. Patient continues to be nothing by mouth with occasional ice chips and continues to have some abdominal distention. Positive bowel sounds noted on exam although patient is not passing gas and has not had any bowel movements. Repeat abdominal x-ray ordered and pending. Patient having some critically low blood sugars in the 40s and 50s and will add dextrose to the IV solution and continue at 75 ML per hour. 03/20/2021 Patient is seen and evaluated in follow-up this morning being followed closely by surgery. Patient reports to having some abdominal discomfort although improved from yesterday. Positive bowel sounds noted in all 4 quadrants on exam although reports no passing gas or bowel movements as of yet. Abdominal x-ray showed colonic bowel gas with fecal debris and dilated small bowel loops suggest obstruction are not identified at this time and patient is feeling hungry. Being started on clear liquids and will monitor for tolerance and advance per surgical recommendations. Patient's CT previously showed some gallstones with dilatation and HIDA scan is being ordered. Patient continues to have low glucose readings and will continue dextrose and Accu-Cheks and closely monitor for hypoglycemia. 03/21/2021 Patient is seen in follow up and states that his abdominal pain is improving. Patient continues to have no gas with no bowel movements and bowel sounds are hypoactive today. Patient is on clear liquid diet and tolerating and requesting increase in diet. Surgery following and have increased diet to regular to monitor for tolerance and bowel activity. Encouraged frequent walking. Hida scan shows no evidence of acute chronic cholecystitis or biliary dyskinesia. Recommend outpatient follow up for further work up. Potassium 3.4 today and being replaced. 03/22/2021 Patient is seen and evaluated in follow-up this morning continues to have hypoglycemic events with no symptoms noted until Accu-Chek is performed and bloo d sugars have been in the low 50s to 60s requiring boluses of dextrose and patient is continued on D10 at 75 ML per hour. Will order C-peptide and insulin level and increase IV hydration to 100 ML per hour with continued Accu-Cheks and close monitoring. Patient attempted a regular diet and had increasing abdominal pain associated with nausea and vomiting after eating an increased right upper quadrant pain and surgery is following closely and plans are for tentative cholecystectomy this Friday. Patient diet will be decreased back to clear liquids and will continue to monitor tolerance closely. Patient reports passing gas but has not had any bowel movements. Encouraged increased activity and will continue to monitor. Sodium today is 138 with a potassium of 4.4 and current creatinine is 0.79. Patient also experiencing mild low-grade fevers of 99 and 99.8 last night and this morning. Will repeat labs along with a chest x-ray in the morning. 03/23/2021 Patient is seen in follow-up this morning continues to have hypoglycemic events and recommending continuing D10 and have ordered C-peptide which is pending. Insulin level is 6.9 which is within normal limits. Patient is maintained on full liquids and will continue. Patient reports to passing minimal gas in bowel sounds are hypoactive on exam. Patient denies any bowel movements at this time. Encourage the patient increased activity as tolerated and continue with walking multiple times throughout the day. White blood count is 3.5, hemoglobin is 11.7, platelets are 101, sodium is 138 with a potassium of 3.9 and current creatinine is 0.76. Vital signs remained stable and patient is afebrile. Chest x-ray today shows no acute pulmonary process. Patient is tentatively scheduled for cholecystectomy with surgery on Friday. Review of systems: Constitutional: No reports of fatigue, fever, or chills Cardiovascular: No reports of chest pain or palpitations Respiratory: No reports of shortness of breath or cough GI: No reports of nausea and vomiting today, with mild abdominal pain, reports passing gas minimally with no reports of bowel movement : No reports of dysuria or retention Neurovascular: No reports of weakness or numbness All medications have been reviewed. Active Medications Allopurinol (Allopurinol 300 Mg Tab) 300 mg PO DAILY [facility] Last Admin: 03/23/21 08:57 Dose: 300 mg Documented by: Alprazolam (Alprazolam 0.25 Mg Tab) 0.25 mg PO TID PRN PRN Reason: Anxiety Cyclobenzaprine HCl (Cyclobenzaprine 10 Mg Tab) 10 mg PO DAILY PRN PRN Reason: Spasms Escitalopram Oxalate (Escitalopram 10 Mg Tab) 10 mg PO DAILY [facility] Last Admin: 03/23/21 08:57 Dose: 10 mg Documented by: Furosemide (Furosemide 20 Mg Tab) 20 mg PO DAILY PRN PRN Reason: Edema Heparin Sodium (Porcine) (Heparin Sodium,Porcine/Pf 5,000 Unit/0.5 Ml Syringe) 5,000 unit SQ Q12HR [facility] Last Admin: 03/23/21 08:57 Dose: 5,000 unit Documented by: Hydromorphone HCl (Hydromorphone 1 Mg/Ml 1 Ml Syringe) 1 mg IVP Q3HR PRN PRN Reason: Severe Pain Last Admin: 03/21/21 20:34 Dose: 1 mg Documented by: Sodium Chloride 153.8 meq/ (Dextrose/Water) 1,038.45 mls @ 100 mls/hr IV .[id number] [facility] Last Admin: 03/23/21 06:04 Dose: 100 mls/hr Documented by: Naloxone HCl (Naloxone 0.4 Mg/Ml 1 Ml Vial) 0.2 mg IV Q2M PRN PRN Reason: Opioid Reversal Ondansetron HCl (Ondansetron 4 Mg/2 Ml Vial) 4 mg IVP Q8HR PRN PRN Reason: Nausea And Vomiting Last Admin: 03/22/21 09:26 Dose: 4 mg Documented by: Pantoprazole Sodium (Pantoprazole 40 Mg Tablet) 40 mg PO DAILY [facility] Last Admin: 03/23/21 08:57 Dose: 40 mg Documented by: Temazepam (Temazepam 15 Mg Cap) 15 mg PO HS PRN PRN Reason: Insomnia Last Admin: 03/22/21 22:05 Dose: 15 mg Documented by: Physical exam: Gen: This is a 55-year-old male awake, alert and oriented 3, well-developed, well-nourished. HEENT: Head is atraumatic, normocephalic. Pupils equal, round. Sclerae is anicteric. NECK: Supple. No JVD. No lymphadenopathy. No thyromegaly. LUNGS: Clear to auscultation. No wheezes or rhonchi. No intercostal retractions. HEART: Regular rate and rhythm. No murmur. ABDOMEN: Soft. Bowel sounds are present although hypoactive today. No masses. Tenderness noted of the right upper quadrant EXTREMITIES: No pedal edema. No calf tenderness. NEUROLOGICAL: Patient is awake, alert and oriented x3. Cranial nerves 2 through 12 are grossly intact. Assessment: Acute small bowel obstruction History of previous recurrent small bowel obstruction and surgery History of laparoscopic hiatal hernia repair recently Hypoglycemia, possibly secondary to nothing by mouth status for continued small bowel obstruction, patient to continue on full liquids and have increased IV hydration of D 10-100 ML per hour with close monitoring Dilated gallbladder with gallstones, HIDA scan normal no signs of cholecystitis, plans are for possible laparoscopic cholecystectomy with surgery this Friday Elevated lipase, possible acute pancreatitis Elevated lactic acid, improved Atrial fibrillation history COPD not in acute exacerbation History of CVA, TIA GERD Hypertension Hyperlipidemia seizure disorder history of sleep apnea Full code Plan: Recommend continue with IV hydration as patient continues to have low blood sugar readings and we'll continue D10 and monitor Accu-Cheks closely. Insulin level within normal limits and C-peptide is pending. Will increase hydration rate to 100 ML per hour as patient continues to have low blood sugar readings throughout the day. Diet has been advanced to full liquids and will monitor for tolerance. No reports of nausea or vomiting today and no increasing abdominal pain noted. Tentatively scheduled for possible laparoscopic cholecystectomy this Friday. Will repeat a.m. labs and continue to monitor closely. Encouraged increased activity as tolerated. Objective - Vital Signs Vital signs: Vital Signs Temp 97.4 F L 03/23/21 07:57 Pulse 58 L 03/23/21 07:57 Resp 14 03/23/21 07:57 BP 102/74 03/23/21 07:57 Pulse Ox 99 03/23/21 05:00 Intake & Output 03/22/21 03/23/21 03/23/21 18:59 06:59 18:59 Intake Total 1320 740 Output Total 1000 1350 Balance 320 -610 Intake: Oral 1320 740 Output: Urine 1000 1350 Other: Voiding Method Urinal Urinal Urinal - Labs CBC & Chem 7: 03/23/21 05:57 03/23/21 05:57 Labs: Abnormal Lab Results - Last 24 Hours (Table) 03/22/21 03/22/21 03/22/21 Range/Units 11:45 12:10 12:45 WBC (3.8-10.6) k/uL Hgb (13.0-17.5) gm/dL MCV (80.0-100.0) fL MCH (25.0-35.0) pg MCHC (31.0-37.0) g/dL RDW (11.5-15.5) % Plt Count (150-450) k/uL Neutrophils # (1.3-7.7) k/uL BUN (9-20) mg/dL POC Glucose (mg/dL) 41 L 40 L 100 H (75-99) mg/dL 03/22/21 03/22/21 03/23/21 Range/Units 16:28 16:58 00:29 WBC (3.8-10.6) k/uL Hgb (13.0-17.5) gm/dL MCV (80.0-100.0) fL MCH (25.0-35.0) pg MCHC (31.0-37.0) g/dL RDW (11.5-15.5) % Plt Count (150-450) k/uL Neutrophils # (1.3-7.7) k/uL BUN (9-20) mg/dL POC Glucose (mg/dL) 56 L 71 L 54 L (75-99) mg/dL 03/23/21 03/23/21 03/23/21 Range/Units 00:58 05:57 05:57 WBC 3.5 L (3.8-10.6) k/uL Hgb 11.7 L (13.0-17.5) gm/dL MCV 76.3 L (80.0-100.0) fL MCH 22.7 L (25.0-35.0) pg MCHC 29.8 L (31.0-37.0) g/dL RDW 20.0 H (11.5-15.5) % Plt Count 101 L (150-450) k/uL Neutrophils # 1.2 L (1.3-7.7) k/uL BUN 4 L (9-20) mg/dL POC Glucose (mg/dL) 120 H (75-99) mg/dL 03/23/21 Range/Units 05:57 WBC (3.8-10.6) k/uL Hgb (13.0-17.5) gm/dL MCV (80.0-100.0) fL MCH (25.0-35.0) pg MCHC (31.0-37.0) g/dL RDW (11.5-15.5) % Plt Count (150-450) k/uL Neutrophils # (1.3-7.7) k/uL BUN (9-20) mg/dL POC Glucose (mg/dL) 53 L (75-99) mg/dL
[2021-03-23] MEDS: LACTULOSE 20 GM/30 ML CUP PO SCH ×2 (16:46→17:54)
[2021-03-23 17:37] LABS: Glucose,Whole Blood 101 mg/dL (75-99)
[2021-03-23] MEDS: TEMAZEPAM 15 MG CAP PO PRN (22:53)
[2021-03-23 22:58] LABS: Glucose,Whole Blood 85 mg/dL (75-99)
[2021-03-24] MEDS: HYDROmorphone 1 MG/ML 1 ML SYRINGE IVP PRN ×2 (04:52→13:00)
[2021-03-24] MEDS: DEXTROSE 10% IN WATER 1,000 ML with SODIUM CHLORIDE 4MEQ/ML VIAL 153.8 MEQ IV SCH ×3 (05:58→16:45)
[2021-03-24 06:04] LABS: Glucose,Whole Blood 87 mg/dL (75-99)
[2021-03-24] MEDS: PANTOPRAZOLE 40 MG TABLET PO SCH (08:21)
[2021-03-24] MEDS: allopurinoL 300 MG TAB PO SCH (08:21)
[2021-03-24] MEDS: ESCITALOPRAM 10 MG TAB PO SCH (08:22)
[2021-03-24] MEDS: HEPARIN SODIUM,PORCINE/PF 5,000 UNIT/0.5 ML SYRINGE SQ SCH ×2 (08:22→22:01)
--- NOTE | 2021-03-24 11:29 | P.PN ---
Subjective Progress Note Date: 03/24/21 This is a 55-year-old male who was recently admitted with abdominal distention along with some increased nausea and vomiting and is being closely monitored. Patient has a history of recurrent bowel obstruction and recently underwent hiatal hernia repair at another facility. General surgery following closely for possible small bowel obstruction. Patient continues to be nothing by mouth with occasional ice chips and continues to have some abdominal distention. Positive bowel sounds noted on exam although patient is not passing gas and has not had any bowel movements. Repeat abdominal x-ray ordered and pending. Patient having some critically low blood sugars in the 40s and 50s and will add dextrose to the IV solution and continue at 75 ML per hour. 03/20/2021 Patient is seen and evaluated in follow-up this morning being followed closely by surgery. Patient reports to having some abdominal discomfort although improved from yesterday. Positive bowel sounds noted in all 4 quadrants on exam although reports no passing gas or bowel movements as of yet. Abdominal x-ray showed colonic bowel gas with fecal debris and dilated small bowel loops suggest obstruction are not identified at this time and patient is feeling hungry. Being started on clear liquids and will monitor for tolerance and advance per surgical recommendations. Patient's CT previously showed some gallstones with dilatation and HIDA scan is being ordered. Patient continues to have low glucose readings and will continue dextrose and Accu-Cheks and closely monitor for hypoglycemia. 03/21/2021 Patient is seen in follow up and states that his abdominal pain is improving. Patient continues to have no gas with no bowel movements and bowel sounds are hypoactive today. Patient is on clear liquid diet and tolerating and requesting increase in diet. Surgery following and have increased diet to regular to monitor for tolerance and bowel activity. Encouraged frequent walking. Hida scan shows no evidence of acute chronic cholecystitis or biliary dyskinesia. Recommend outpatient follow up for further work up. Potassium 3.4 today and being replaced. 03/22/2021 Patient is seen and evaluated in follow-up this morning continues to have hypoglycemic events with no symptoms noted until Accu-Chek is performed and blood sugars have been in the low 50s to 60s requiring boluses of dextrose and patient is continued on D10 at 75 ML per hour. Will order C-peptide and insulin level and increase IV hydration to 100 ML per hour with continued Accu-Cheks and close monitoring. Patient attempted a regular diet and had increasing abdominal pain associated with nausea and vomiting after eating an increased right upper quadrant pain and surgery is following closely and plans are for tentative cholecystectomy this Friday. Patient diet will be decreased back to clear liquids and will continue to monitor tolerance closely. Patient reports passing gas but has not had any bowel movements. Encouraged increased activity and will continue to monitor. Sodium today is 138 with a potassium of 4.4 and current creatinine is 0.79. Patient also experiencing mild low-grade fevers of 99 and 99.8 last night and this morning. Will repeat labs along with a chest x-ray in the morning. 03/23/2021 Patient is seen in follow-up this morning continues to have hypoglycemic events and recommending continuing D10 and have ordered C-peptide which is pending. Insulin level is 6.9 which is within normal limits. Patient is maintained on full liquids and will continue. Patient reports to passing minimal gas in bowel sounds are hypoactive on exam. Patient denies any bowel movements at this time. Encourage the patient increased activity as tolerated and continue with walking multiple times throughout the day. White blood count is 3.5, hemoglobin is 11.7, platelets are 101, sodium is 138 with a potassium of 3.9 and current creatinine is 0.76. Vital signs remained stable and patient is afebrile. Chest x-ray today shows no acute pulmonary process. Patient is tentatively scheduled for cholecystectomy with surgery on Friday. 03/24/2021 Patient is evaluated today sitting up at the bedside. He is feeling overall well, he denies any abdominal pain at this time. He denies any nausea or vomiting. He is on full liquids and tolerating well. He does report a bowel movement throughout the evening that was negative for any signs of blood. Patient is able to ambulate. There are no labs for review today however his wa tabolic panel was unremarkable yesterday. His hemoglobin is improving on 0.7. We will repeat labs in the morning. Vital signs include a temp of 97.8, heart rate 64, blood pressure 158/103. 100% on room air. Monitor blood pressures closely, we will add medication if needed. Plan is still for a lap tawny on Friday. Review of systems: Constitutional: No reports of fatigue, fever, or chills Cardiovascular: No reports of chest pain or palpitations Respiratory: No reports of shortness of breath or cough GI: No reports of nausea and vomiting today, denies abdominal pain, reports gas, reports BM. : No reports of dysuria or retention Neurovascular: No reports of weakness or numbness Physical exam: Gen: This is a 55-year-old male awake, alert and oriented 3, well-developed, well-nourished. HEENT: Head is atraumatic, normocephalic. Pupils equal, round. Sclerae is anicteric. NECK: Supple. No JVD. No lymphadenopathy. No thyromegaly. LUNGS: Clear to auscultation. No wheezes or rhonchi. No intercostal retractions. HEART: Regular rate and rhythm. No murmur. ABDOMEN: Soft. Bowel sounds are present, normoactive. No masses. Tenderness noted of the right upper quadrant EXTREMITIES: No pedal edema. No calf tenderness. NEUROLOGICAL: Patient is awake, alert and oriented x3. Focal neurological examination is negative. Assessment: Acute small bowel obstruction History of previous recurrent small bowel obstruction and surgery History of laparoscopic hiatal hernia repair recently Hypoglycemia, possibly secondary to nothing by mouth status for continued small bowel obstruction, patient to continue on full liquids and have increased IV hydration of D 10-100 ML per hour with close monitoring Dilated gallbladder with gallstones, HIDA scan normal no signs of cholecystitis, plans are for possible laparoscopic cholecystectomy with surgery this Friday Elevated lipase, possible acute pancreatitis, has resolved current level is 42 as of March 19. Elevated lactic acid, improved Atrial fibrillation history, not an anticoagulation COPD not in acute exacerbation History of CVA, TIA GERD Hypertension Hyperlipidemia seizure disorder history of sleep apnea DVT prophylaxis: Subcu heparin GI prophylaxis: Protonix Full code Plan: Recommend continue with IV hydration as patient continues to have low blood sugar readings and we'll continue D10 and monitor Accu-Cheks closely. Insulin level within normal limits and C-peptide is pending. Will increase hydration rate to 100 ML per hour as patient continues to have low blood sugar readings throughout the day. Diet has been advanced to full liquids and will monitor for tolerance. No reports of nausea or vomiting today and no increasing abdominal pain noted. Tentatively scheduled for possible laparoscopic cholecystectomy this Friday. Will repeat a.m. labs and continue to monitor closely. Encouraged increased activity as tolerated. Objective - Vital Signs Vital signs: Vital Signs Temp 97.8 F 03/24/21 04:53 Pulse 64 03/24/21 04:53 Resp 18 03/24/21 04:53 BP 158/103 03/24/21 04:53 Pulse Ox 96 03/23/21 20:28 Intake & Output 03/23/21 03/24/21 03/24/21 18:59 06:59 18:59 Intake Total 1550 Output Total 350 Balance 1200 Intake: Intake, IV Titration 1100 Amount Dextrose 10% in Water 1, 1100 000 ml @ 100 mls/hr IV . [id number] MATT with Sodium Chloride 4Meq/ml Vial 153 .8 meq Rx#:[id number] Oral 450 Output: Urine 350 Other: Voiding Method Urinal Urinal # Voids 1 # Bowel Movements 1 - Labs CBC & Chem 7: 03/23/21 05:57 03/23/21 05:57 Labs: Abnormal Lab Results - Last 24 Hours (Table) 03/23/21 Range/Units 17:30 POC Glucose (mg/dL) 101 H (75-99) mg/dL Assessment and Plan Time with Patient: Greater than 30
[2021-03-24 11:56] LABS: Glucose,Whole Blood 112 mg/dL (75-99)
--- NOTE | 2021-03-24 12:44 | P.PN ---
Progress Note - Text Progress Note Date: 03/24/21 Patient feels better. He is tolerating his diet. On exam vitals are stable. Soft. Patient for laparoscopic cholecystectomy on Friday.
[2021-03-24] MEDS: ONDANSETRON 4 MG/2 ML VIAL IVP PRN (13:45)
[2021-03-24 17:40] LABS: Glucose,Whole Blood 87 mg/dL (75-99)
[2021-03-24] MEDS: TEMAZEPAM 15 MG CAP PO PRN (22:01)
[2021-03-25] LABS: Glucose,Whole Blood 94 mg/dL (75-99)
[2021-03-25] MEDS: DEXTROSE 10% IN WATER 1,000 ML with SODIUM CHLORIDE 4MEQ/ML VIAL 153.8 MEQ IV SCH (04:02)
[2021-03-25 06:14] LABS: Anisocytosis Moderate; Basophils % (A) 1 %; Eosinophils # (A) 0.3 k/uL (0-0.7); Eosinophils % (A) 8 %; HCT 40.1 % (39.0-53.0); HGB 11.8 gm/dL (13.0-17.5); Hypochromasia Marked; Lymphocytes # (A) 1.6 k/uL (1.0-4.8); Lymphocytes % (A) 44 %; MCH 22.6 pg (25.0-35.0); MCHC 29.4 g/dL (31.0-37.0); MCV 76.9 fL (80.0-100.0); Mean Platelet Volume 10.7; Microcytosis Moderate; Monocytes # (A) 0.3 k/uL (0-1.0); Monocytes % (A) 9 %; Neutrophils # (A) 1.3 k/uL (1.3-7.7); Neutrophils % (A) 37 %; Platelet Count 151 k/uL (150-450); Poikilocytosis Slight; RBC 5.22 m/uL (4.30-5.90); RDW 20.1 % (11.5-15.5); WBC 3.6 k/uL (3.8-10.6)
[2021-03-25 06:26] LABS: Glucose,Whole Blood 82 mg/dL (75-99)
[2021-03-25 06:29] LABS: African American GFR (CKD) >90 (>60 ml/min/1.73 sqM); Anion Gap 9 mmol/L; Blood Urea Nitrogen 7 mg/dL (9-20); Calcium 8.8 mg/dL (8.4-10.2); Carbon Dioxide 28 mmol/L (22-30); Chloride 99 mmol/L (98-107); Glucose 87 mg/dL (74-99); Non-African American GFR(CKD) >90 (>60 ml/min/1.73 sqM); Potassium 4.3 mmol/L (3.5-5.1); Sodium 136 mmol/L (137-145)
[2021-03-25] MEDS: allopurinoL 300 MG TAB PO SCH (08:33)
[2021-03-25] MEDS: PANTOPRAZOLE 40 MG TABLET PO SCH (08:33)
[2021-03-25] MEDS: HEPARIN SODIUM,PORCINE/PF 5,000 UNIT/0.5 ML SYRINGE SQ SCH ×2 (08:34→20:02)
[2021-03-25] MEDS: ESCITALOPRAM 10 MG TAB PO SCH (08:43)
[2021-03-25 12:16] LABS: Glucose,Whole Blood 83 mg/dL (75-99)
--- NOTE | 2021-03-25 12:24 | P.PN ---
Subjective Progress Note Date: 03/25/21 This is a 55-year-old male who was recently admitted with abdominal distention along with some increased nausea and vomiting and is being closely monitored. Patient has a history of recurrent bowel obstruction and recently underwent hiatal hernia repair at another facility. General surgery following closely for possible small bowel obstruction. Patient continues to be nothing by mouth with occasional ice chips and continues to have some abdominal distention. Positive bowel sounds noted on exam although patient is not passing gas and has not had any bowel movements. Repeat abdominal x-ray ordered and pending. Patient having some critically low blood sugars in the 40s and 50s and will add dextrose to the IV solution and continue at 75 ML per hour. 03/20/2021 Patient is seen and evaluated in follow-up this morning being followed closely by surgery. Patient reports to having some abdominal discomfort although improved from yesterday. Positive bowel sounds noted in all 4 quadrants on exam although reports no passing gas or bowel movements as of yet. Abdominal x-ray showed colonic bowel gas with fecal debris and dilated small bowel loops suggest obstruction are not identified at this time and patient is feeling hungry. Being started on clear liquids and will monitor for tolerance and advance per surgical recommendations. Patient's CT previously showed some gallstones with dilatation and HIDA scan is being ordered. Patient continues to have low glucose readings and will continue dextrose and Accu-Cheks and closely monitor for hypoglycemia. 03/21/2021 Patient is seen in follow up and states that his abdominal pain is improving. Patient continues to have no gas with no bowel movements and bowel sounds are hypoactive today. Patient is on clear liquid diet and tolerating and requesting increase in diet. Surgery following and have increased diet to regular to monitor for tolerance and bowel activity. Encouraged frequent walking. Hida scan shows no evidence of acute chronic cholecystitis or biliary dyskinesia. Recommend outpatient follow up for further work up. Potassium 3.4 today and being replaced. 03/22/2021 Patient is seen and evaluated in follow-up this morning continues to have hypoglycemic events with no symptoms noted until Accu-Chek is performed and blood sugars have been in the low 50s to 60s requiring boluses of dextrose and patient is continued on D10 at 75 ML per hour. Will order C-peptide and insulin level and increase IV hydration to 100 ML per hour with continued Accu-Cheks and close monitoring. Patient attempted a regular diet and had increasing abdominal pain associated with nausea and vomiting after eating an increased right upper quadrant pain and surgery is following closely and plans are for tentative cholecystectomy this Friday. Patient diet will be decreased back to clear liquids and will continue to monitor tolerance closely. Patient reports passing gas but has not had any bowel movements. Encouraged increased activity and will continue to monitor. Sodium today is 138 with a potassium of 4.4 and current creatinine is 0.79. Patient also experiencing mild low-grade fevers of 99 and 99.8 last night and this morning. Will repeat labs along with a chest x-ray in the morning. 03/23/2021 Patient is seen in follow-up this morning continues to have hypoglycemic events and recommending continuing D10 and have ordered C-peptide which is pending. Insulin level is 6.9 which is within normal limits. Patient is maintained on full liquids and will continue. Patient reports to passing minimal gas in bowel sounds are hypoactive on exam. Patient denies any bowel movements at this time. Encourage the patient increased activity as tolerated and continue with walking multiple times throughout the day. White blood count is 3.5, hemoglobin is 11.7, platelets are 101, sodium is 138 with a potassium of 3.9 and current creatinine is 0.76. Vital signs remained stable and patient is afebrile. Chest x-ray today shows no acute pulmonary process. Patient is tentatively scheduled for cholecystectomy with surgery on Friday. 03/24/2021 Patient is evaluated today sitting up at the bedside. He is feeling overall well, he denies any abdominal pain at this time. He denies any nausea or vomiting. He is on full liquids and tolerating well. He does report a bowel movement throughout the evening that was negative for any signs of blood. Patient is able to ambulate. There are no labs for review today however his ks tabolic panel was unremarkable yesterday. His hemoglobin is improving on 0.7. We will repeat labs in the morning. Vital signs include a temp of 97.8, heart rate 64, blood pressure 158/103. 100% on room air. Monitor blood pressures closely, we will add medication if needed. Plan is still for a lap tawny on Friday. 03/25/2021 Patient is evaluated today sitting up at the bedside. Denies any nausea vomiting or abdominal pain. He does report bowel movements and passing gas. He is just pending lap tawny tomorrow morning. Vital signs include temperature 98.8, heart rate 81, blood pressure 127/64, 97% on 2 L nasal cannula. Labs reviewed included a white blood cell count 3.6, hemoglobin 11.8. This improved to 151. Sodium is 136. Blood pressure is improved at 155/87, 99% on room air. He is afebrile. Review of systems: Constitutional: No reports of fatigue, fever, or chills Cardiovascular: No reports of chest pain or palpitations Respiratory: No reports of shortness of breath or cough GI: No reports of nausea and vomiting today, denies abdominal pain, reports gas, reports BM. : No reports of dysuria or retention Neurovascular: No reports of weakness or numbness Physical exam: Gen: This is a 55-year-old male awake, alert and oriented 3, well-developed, well-nourished. HEENT: Head is atraumatic, normocephalic. Pupils equal, round. Sclerae is anicteric. NECK: Supple. No JVD. No lymphadenopathy. No thyromegaly. LUNGS: Clear to auscultation. No wheezes or rhonchi. No intercostal retractions. HEART: Regular rate and rhythm. No murmur. ABDOMEN: Soft. Bowel sounds are present, normoactive. No masses. Tenderness noted of the right upper quadrant EXTREMITIES: No pedal edema. No calf tenderness. NEUROLOGICAL: Patient is awake, alert and oriented x3. Focal neurological examination is negative. Assessment: Acute small bowel obstruction History of previous recurrent small bowel obstruction and surgery History of laparoscopic hiatal hernia repair recently Hypoglycemia, possibly secondary to nothing by mouth status for continued small bowel obstruction, patient to continue on full liquids and have increased IV hydration of D 10-100 ML per hour with close monitoring Dilated gallbladder with gallstones, HIDA scan normal no signs of cholecystitis, plans are for possible laparoscopic cholecystectomy with surgery this Friday Elevated lipase, possible acute pancreatitis, has resolved current level is 42 as of March 19. Elevated lactic acid, improved Atrial fibrillation history, not an anticoagulation COPD not in acute exacerbation History of CVA, TIA GERD Hypertension Hyperlipidemia seizure disorder history of sleep apnea DVT prophylaxis: Subcu heparin GI prophylaxis: Protonix Full code Plan: Recommend continue with IV hydration as patient continues to have low blood sugar readings and we'll continue D5W and monitor Accu-Cheks closely. Insulin level within normal limits and C-peptide is pending. Will increase hydration rate to 100 ML per hour as patient continues to have low blood sugar readings throughout the day. Diet has been advanced to full liquids and will monitor for tolerance. No reports of nausea or vomiting today and no increasing abdominal pain noted. Tentatively scheduled for possible laparoscopic cholecystectomy thi s Friday. Will repeat a.m. labs and continue to monitor closely. Encouraged increased activity as tolerated. Objective - Vital Signs Vital signs: Vital Signs Temp 97.5 F L 03/25/21 04:28 Pulse 75 03/25/21 04:28 Resp 16 03/25/21 04:28 BP 94/61 03/25/21 04:28 Pulse Ox 100 03/25/21 04:28 Intake & Output 03/24/21 03/25/21 03/25/21 18:59 06:59 18:59 Intake Total 3520 1200 Output Total 800 Balance 3520 400 Intake: Intake, IV Titration 1200 1100 Amount Dextrose 10% in Water 1, 1200 1100 000 ml @ 100 mls/hr IV . [id number] MATT with Sodium Chloride 4Meq/ml Vial 153 .8 meq Rx#:[id number] Oral 2320 100 Output: Urine 800 Other: Voiding Method Urinal Urinal # Voids 5 - Labs CBC & Chem 7: 03/25/21 05:19 03/25/21 05:19 Labs: Abnormal Lab Results - Last 24 Hours (Table) 03/24/21 03/25/21 03/25/21 Range/Units 11:49 05:19 05:19 WBC 3.6 L (3.8-10.6) k/uL Hgb 11.8 L (13.0-17.5) gm/dL MCV 76.9 L (80.0-100.0) fL MCH 22.6 L (25.0-35.0) pg MCHC 29.4 L (31.0-37.0) g/dL RDW 20.1 H (11.5-15.5) % Sodium 136 L (137-145) mmol/L BUN 7 L (9-20) mg/dL POC Glucose (mg/dL) 112 H (75-99) mg/dL Assessment and Plan Time with Patient: Greater than 30
--- NOTE | 2021-03-25 12:26 | P.PN ---
Progress Note - Text Progress Note Date: 03/25/21 Patient remained stable. His daughters diet. He is some minimal complaints of abdominal pain. On exam vitals are stable. Abdomen soft.. Patient will be scheduled for laparoscopic cholecystectomy tomorrow.
[2021-03-25 17:16] LABS: Glucose,Whole Blood 82 mg/dL (75-99)
[2021-03-25] MEDS: HYDROmorphone 1 MG/ML 1 ML SYRINGE IVP PRN (19:00)
[2021-03-25] MEDS: TEMAZEPAM 15 MG CAP PO PRN (21:44)
[2021-03-26 00:10] LABS: Glucose,Whole Blood 87 mg/dL (75-99)
[2021-03-26] MEDS: DEXTROSE 10% IN WATER 1,000 ML with SODIUM CHLORIDE 4MEQ/ML VIAL 153.8 MEQ IV SCH ×2 (02:30→16:46)
[2021-03-26 06:18] LABS: Glucose,Whole Blood 83 mg/dL (75-99)
[2021-03-26 07:01] LABS: Anisocytosis Moderate; Basophils % (A) 0 %; Eosinophils # (A) 0.3 k/uL (0-0.7); Eosinophils % (A) 9 %; HCT 36.8 % (39.0-53.0); HGB 10.6 gm/dL (13.0-17.5); Hypochromasia Marked; Lymphocytes # (A) 1.7 k/uL (1.0-4.8); Lymphocytes % (A) 49 %; MCH 22.4 pg (25.0-35.0); MCV 77.3 fL (80.0-100.0); Mean Platelet Volume 9.8; Microcytosis Moderate; Monocytes # (A) 0.2 k/uL (0-1.0); Monocytes % (A) 5 %; Neutrophils # (A) 1.2 k/uL (1.3-7.7); Neutrophils % (A) 34 %; Platelet Count 189 k/uL (150-450); Poikilocytosis Slight; RBC 4.76 m/uL (4.30-5.90); RDW 20.1 % (11.5-15.5); WBC 3.6 k/uL (3.8-10.6)
[2021-03-26] MEDS: HEPARIN SODIUM,PORCINE/PF 5,000 UNIT/0.5 ML SYRINGE SQ SCH ×2 (09:16→21:15)
[2021-03-26] MEDS ORDERED: ONDANSETRON 4 MG/2 ML VIAL IVP ONE (10:27)
[2021-03-26] MEDS ORDERED: HYDROmorphone 0.5 MG/0.5 ML SYRINGE IVP PRN (10:27)
[2021-03-26] MEDS ORDERED: DEXAMETHASONE SOD PHOSPHATE 4 MG/ML 1 ML VIAL IV ONE (10:27)
[2021-03-26] MEDS ORDERED: LIDOCAINE 1% (10MG/ML) FOR IV START INTRADERMA PRN (10:27)
[2021-03-26] MEDS ORDERED: IV FLUID CONTINUATION 600 ML IV ONE (10:35)
[2021-03-26 10:45] LABS: Glucose,Whole Blood 121 mg/dL (75-99)
[2021-03-26] MEDS ORDERED: KETAMINE 10 MG/ML 20 ML VIAL ONE (13:02)
[2021-03-26] MEDS ORDERED: HYDROmorphone (PF) 1 MG/ML ONE (13:02)
[2021-03-26] MEDS ORDERED: LABETALOL 5 MG/ML VIAL MDV ONE (13:02)
[2021-03-26] MEDS ORDERED: SUCCINYLCHOLINE CHLORIDE 100 MG/5 ML SYR IV ONE (13:02)
[2021-03-26] MEDS ORDERED: KETOROLAC 15 MG/ML 1 ML VIAL ONE (13:02)
[2021-03-26] MEDS ORDERED: PROPOFOL 10 MG/ML 20 ML VIAL IV ONE (13:02)
[2021-03-26] MEDS ORDERED: MIDAZOLAM 2 MG/2 ML VIAL ONE (13:02)
[2021-03-26] MEDS ORDERED: ROCURONIUM 10 MG/ML (5 ML VIAL) IV ONE (13:02)
[2021-03-26] MEDS ORDERED: fentaNYL (PF) 50 MCG/ML 2 ML AMP ONE (13:02)
[2021-03-26] MEDS ORDERED: SODIUM CHLORIDE 0.9% 1,000 ML IV ONE (13:03)
[2021-03-26] MEDS ORDERED: SODIUM CHLORIDE 0.9% 100 ML with ceFAZolin 2,000 MG IV ONE ×2 (13:24)
[2021-03-26] MEDS ORDERED: LIDOCAINE 0.5%-EPI 1:200,000 50 ML VIAL SQ ONE (13:24)
--- NOTE | 2021-03-26 13:46 | P.OP ---
Date of Procedure: 03/26/21 Preoperative Diagnosis: Cholecystitis Postoperative Diagnosis: Cholelithiasis Procedure(s) Performed: Laparoscopic cholecystectomy Anesthesia: JASON Surgeon: Sourav Zarate Estimated Blood Loss (ml): 5 Pathology: other (Gallbladder) Condition: stable Disposition: PACU Description of Procedure: The patient was placed on the operating table. The patient received a general endotracheal tube anesthesia. The patients abdomen was prepped and draped in the usual sterile fashion. Through an infraumbilical stab incision, the fascia of the anterior abdominal wall was grasped with a pair of Kochers and then the Veress needle was placed in the peritoneal cavity. Position of the Veress needle was confirmed with positive drop test. The abdomen was then insufflated. After adequate insufflation, the 10 mm trocar was placed in the peritoneal cavity. Following this the laparoscope was placed in the peritoneal cavity. The patient was placed in the head-up, right side up position and then a 5 mm trocar was placed in the right lateral and right subcostal position under direct visualization. A 8 mm trocar was placed in the epigastric position. The gallbladder was grasped in the fundus and infundibulum. Traction on the gallbladder was placed in the lateral and the cephalad positions. The triangle of Calot was visualized.. The cystic duct was bluntly dissected until the union of the cystic duct and common bile duct was seen. A critical view of safety was achieved. The cystic duct was then divided and sealed with the Harmonic scissors. A PDS Endoloop was then placed throughout the cystic duct stump. The cystic artery divided and sealed with the Harmonic scissors. The gallbladder was then removed from the liver bed using Harmonic scissors. The gallbladder was then extracted through the epigastric port site. Operative field was checked for any bleeding spots and Harmonic scissors was used to coagulate the liver bed. The abdomen was irrigated. The trocars were removed. The skin was closed using interrupted 3-0 Vicryl suture. Dermabond dressing were applied. The patient tolerated the procedure well.
[2021-03-26 14:51] LABS: Glucose,Whole Blood 122 mg/dL (75-99)
[2021-03-26] MEDS ORDERED: LACTATED RINGERS 1,000 ML IV ONE (14:58)
[2021-03-26] MEDS: allopurinoL 300 MG TAB PO SCH (16:46)
[2021-03-26] MEDS: PANTOPRAZOLE 40 MG TABLET PO SCH (16:46)
[2021-03-26] MEDS: ESCITALOPRAM 10 MG TAB PO SCH (16:46)
[2021-03-26] MEDS: LACTATED RINGERS 1,000 ML IV SCH (16:47)
[2021-03-26] MEDS: HYDROmorphone 1 MG/ML 1 ML SYRINGE IVP PRN (16:47)
[2021-03-26 17:43] LABS: Glucose,Whole Blood 155 mg/dL (75-99)
[2021-03-26] MEDS: TEMAZEPAM 15 MG CAP PO PRN (21:16)
[2021-03-27 01:23] LABS: Glucose,Whole Blood 117 mg/dL (75-99)
[2021-03-27 02:44] LABS: African American GFR (CKD) 130.5 (60.0-200.0); Anion Gap 17.1 mmol/L (4.00-12.00); BUN/Creat Ratio 11.97 Ratio (12.00-20.00); Blood Urea Nitrogen 7.2 mg/dL (9.0-27.0); Calcium 8.5 mg/dL (8.7-10.3); Carbon Dioxide 20.9 mmol/L (21.6-31.8); Non-African American GFR(CKD) 112.6 (60.0-200.0); Potassium 4.2 mmol/L (3.5-5.5)
--- NOTE | 2021-03-27 02:47 | P.PN ---
Subjective Progress Note Date: 03/26/21 This is a 55-year-old male who was recently admitted with abdominal distention along with some increased nausea and vomiting and is being closely monitored. Patient has a history of recurrent bowel obstruction and recently underwent hiatal hernia repair at another facility. General surgery following closely for possible small bowel obstruction. Patient continues to be nothing by mouth with occasional ice chips and continues to have some abdominal distention. Positive bowel sounds noted on exam although patient is not passing gas and has not had any bowel movements. Repeat abdominal x-ray ordered and pending. Patient having some critically low blood sugars in the 40s and 50s and will add dextrose to the IV solution and continue at 75 ML per hour. 03/20/2021 Patient is seen and evaluated in follow-up this morning being followed closely by surgery. Patient reports to having some abdominal discomfort although improved from yesterday. Positive bowel sounds noted in all 4 quadrants on exam although reports no passing gas or bowel movements as of yet. Abdominal x-ray showed colonic bowel gas with fecal debris and dilated small bowel loops suggest obstruction are not identified at this time and patient is feeling hungry. Being started on clear liquids and will monitor for tolerance and advance per surgical recommendations. Patient's CT previously showed some gallstones with dilatation and HIDA scan is being ordered. Patient continues to have low glucose readings and will continue dextrose and Accu-Cheks and closely monitor for hypoglycemia. 03/21/2021 Patient is seen in follow up and states that his abdominal pain is improving. Patient continues to have no gas with no bowel movements and bowel sounds are hypoactive today. Patient is on clear liquid diet and tolerating and requesting increase in diet. Surgery following and have increased diet to regular to monitor for tolerance and bowel activity. Encouraged frequent walking. Hida scan shows no evidence of acute chronic cholecystitis or biliary dyskinesia. Recommend outpatient follow up for further work up. Potassium 3.4 today and being replaced. 03/22/2021 Patient is seen and evaluated in follow-up this morning continues to have hypoglycemic events with no symptoms noted until Accu-Chek is performed and bloo d sugars have been in the low 50s to 60s requiring boluses of dextrose and patient is continued on D10 at 75 ML per hour. Will order C-peptide and insulin level and increase IV hydration to 100 ML per hour with continued Accu-Cheks and close monitoring. Patient attempted a regular diet and had increasing abdominal pain associated with nausea and vomiting after eating an increased right upper quadrant pain and surgery is following closely and plans are for tentative cholecystectomy this Friday. Patient diet will be decreased back to clear liquids and will continue to monitor tolerance closely. Patient reports passing gas but has not had any bowel movements. Encouraged increased activity and will continue to monitor. Sodium today is 138 with a potassium of 4.4 and current creatinine is 0.79. Patient also experiencing mild low-grade fevers of 99 and 99.8 last night and this morning. Will repeat labs along with a chest x-ray in the morning. 03/23/2021 Patient is seen in follow-up this morning continues to have hypoglycemic events and recommending continuing D10 and have ordered C-peptide which is pending. Insulin level is 6.9 which is within normal limits. Patient is maintained on full liquids and will continue. Patient reports to passing minimal gas in bowel sounds are hypoactive on exam. Patient denies any bowel movements at this time. Encourage the patient increased activity as tolerated and continue with walking multiple times throughout the day. White blood count is 3.5, hemoglobin is 11.7, platelets are 101, sodium is 138 with a potassium of 3.9 and current creatinine is 0.76. Vital signs remained stable and patient is afebrile. Chest x-ray today shows no acute pulmonary process. Patient is tentatively scheduled for cholecystectomy with surgery on Friday. 03/24/2021 Patient is evaluated today sitting up at the bedside. He is feeling overall well, he denies any abdominal pain at this time. He denies any nausea or vomiting. He is on full liquids and tolerating well. He does report a bowel movement throughout the evening that was negative for any signs of blood. Patient is able to ambulate. There are no labs for review today however his metabolic panel was unremarkable yesterday. His hemoglobin is improving on 0.7. We will repeat labs in the morning. Vital signs include a temp of 97.8, heart rate 64, blood pressure 158/103. 100% on room air. Monitor blood pressures closely, we will add medication if needed. Plan is still for a lap tawny on Friday. 03/25/2021 Patient is evaluated today sitting up at the bedside. Denies any nausea vomiting or abdominal pain. He does report bowel movements and passing gas. He is just pending lap tawny tomorrow morning. Vital signs include temperature 98.8, heart rate 81, blood pressure 127/64, 97% on 2 L nasal cannula. Labs reviewed included a white blood cell count 3.6, hemoglobin 11.8. This improved to 151. Sodium is 136. Blood pressure is improved at 155/87, 99% on room air. He is afebrile. 03/26/2021 Patient is seen this morning in follow up and states his abdominal pain has minimally improved. Patient continues to pass gas and reported a bowel movement yesterday. Patient is scheduled for laparascopic cholecystectomy today and is currently NPO. Patient maintained on D10 and will continue to closely monitor accuchecks. Review of systems: Constitutional: No reports of fatigue, fever, or chills Cardiovascular: No reports of chest pain or palpitations Respiratory: No reports of shortness of breath or cough GI: No reports of nausea and vomiting today, with mild abdominal pain, reports passing gas and recent large bowel movement one day ago : No reports of dysuria or retention Neurovascular: No reports of weakness or numbness All medications have been reviewed. Active Medications Allopurinol (Allopurinol 300 Mg Tab) 300 mg PO DAILY [facility] Last Admin: 03/25/21 08:33 Dose: 300 mg Documented by: Alprazolam (Alprazolam 0.25 Mg Tab) 0.25 mg PO TID PRN PRN Reason: Anxiety Last Admin: 03/24/21 18:14 Dose: 0.25 mg Documented by: Cyclobenzaprine HCl (Cyclobenzaprine 10 Mg Tab) 10 mg PO DAILY PRN PRN Reason: Spasms Droperidol (Droperidol 5 Mg/2 Ml Vial) 0.625 mg IVP ONCE PRN PRN Reason: Nausea And Vomiting Stop: 03/26/21 23:00 Escitalopram Oxalate (Escitalopram 10 Mg Tab) 10 mg PO DAILY [facility] Last Admin: 03/25/21 08:43 Dose: 10 mg Documented by: Furosemide (Furosemide 20 Mg Tab) 20 mg PO DAILY PRN PRN Reason: Edema Heparin Sodium (Porcine) (Heparin Sodium,Porcine/Pf 5,000 Unit/0.5 Ml Syringe) 5,000 unit SQ Q12HR [facility] Last Admin: 03/26/21 09:16 Dose: Not Given Documented by: Hydromorphone HCl (Hydromorphone 1 Mg/Ml 1 Ml Syringe) 1 mg IVP Q3HR PRN PRN Reason: Severe Pain Last Admin: 03/25/21 19:00 Dose: 1 mg Documented by: Hydromorphone HCl (Hydromorphone 0.5 Mg/0.5 Ml Syringe) 0.5 mg IVP Q5M PRN PRN Reason: Pain Control Stop: 03/26/21 23:00 Sodium Chloride 153.8 meq/ (Dextrose/Water) 1,038.45 mls @ 100 mls/hr IV .[id number] [facility] Last Admin: 03/26/21 02:30 Dose: Not Given Documented by: Lactated Ringer's (Lactated Ringers) 1,000 mls @ 20 mls/hr IV .Q24H [facility] Lidocaine HCl (Lidocaine 1% (10mg/Ml) For Iv Start) 0.1 ml INTRADERMA PER PROTOCOL PRN PRN Reason: IV Start Naloxone HCl (Naloxone 0.4 Mg/Ml 1 Ml Vial) 0.2 mg IV Q2M PRN PRN Reason: Opioid Reversal Ondansetron HCl (Ondansetron 4 Mg/2 Ml Vial) 4 mg IVP Q8HR PRN PRN Reason: Nausea And Vomiting Last Admin: 03/24/21 13:45 Dose: 4 mg Documented by: Pantoprazole Sodium (Pantoprazole 40 Mg Tablet) 40 mg PO DAILY [facility] Last Admin: 03/25/21 08:33 Dose: 40 mg Documented by: Temazepam (Temazepam 15 Mg Cap) 15 mg PO HS PRN PRN Reason: Insomnia Last Admin: 03/25/21 21:44 Dose: 15 mg Documented by: Physical exam: Gen: This is a 55-year-old male awake, alert and oriented 3, well-developed, well-nourished. HEENT: Head is atraumatic, normocephalic. Pupils equal, round. Sclerae is anicteric. NECK: Supple. No JVD. No lymphadenopathy. No thyromegaly. LUNGS: Clear to auscultation. No wheezes or rhonchi. No intercostal retractions. HEART: Regular rate and rhythm. No murmur. ABDOMEN: Soft. Bowel sounds are present. No masses. minimal Tenderness noted of the right upper quadrant EXTREMITIES: No pedal edema. No calf tenderness. NEUROLOGICAL: Patient is awake, alert and oriented x3. Cranial nerves 2 through 12 are grossly intact. Assessment: Acute small bowel obstruction History of previous recurrent small bowel obstruction and surgery History of laparoscopic hiatal hernia repair recently Hypoglycemia, possibly secondary to nothing by mouth status for continued small bowel obstruction, patient is currently NPO for surgery today and have increased IV hydration of D 10-100 ML per hour with close monitoring Dilated gallbladder with gallstones, laparoscopic cholecystectomy with surgery today Elevated lipase, possible acute pancreatitis Elevated lactic acid, improved Atrial fibrillation history COPD not in acute exacerbation History of CVA, TIA GERD Hypertension Hyperlipidemia seizure disorder history of sleep apnea GI prophylaxis DVT prophylactics Full code Plan: Recommend continue with IV hydration as patient continues to have low blood sugar readings and we'll continue D10 and monitor Accu-Cheks closely. Insulin level within normal limits and C-peptide was 2.15 within normal range. Will continue with D10 for now and closely monitor with attempts at weaning after surgery. Plan is for laparoscopic cholecystectomy this afternoon. Patient is NPO. Will await report. Will repeat a.m. labs and continue to monitor closely. Objective - Vital Signs Vital signs: Vital Signs Temp 97.5 F L 03/26/21 04:51 Pulse 73 03/26/21 04:51 Resp 20 03/26/21 04:51 BP 143/93 03/26/21 04:51 Pulse Ox 98 03/26/21 04:51 Intake & Output 03/25/21 03/26/21 03/26/21 18:59 06:59 18:59 Intake Total 400 200 Balance 400 200 Intake: Intake, IV Titration 200 Amount Dextrose 10% in Water 1, 200 000 ml @ 100 mls/hr IV . [id number] MATT with Sodium Chloride 4Meq/ml Vial 153 .8 meq Rx#:[id number] Oral 200 200 Other: Voiding Method Urinal # Voids 1 2 - Labs CBC & Chem 7: 03/26/21 06:32 03/25/21 05:19 Labs: Abnormal Lab Results - Last 24 Hours (Table) 03/26/21 Range/Units 06:32 WBC 3.6 L (3.8-10.6) k/uL Hgb 10.6 L (13.0-17.5) gm/dL Hct 36.8 L (39.0-53.0) % MCV 77.3 L (80.0-100.0) fL MCH 22.4 L (25.0-35.0) pg MCHC 29.0 L (31.0-37.0) g/dL RDW 20.1 H (11.5-15.5) % Neutrophils # 1.2 L (1.3-7.7) k/uL
[2021-03-27] MEDS: DEXTROSE 10% IN WATER 1,000 ML with SODIUM CHLORIDE 4MEQ/ML VIAL 153.8 MEQ IV SCH ×2 (03:05→07:49)
[2021-03-27 06:05] LABS: Glucose,Whole Blood 117 mg/dL (75-99)
[2021-03-27] MEDS: PANTOPRAZOLE 40 MG TABLET PO SCH (07:49)
[2021-03-27] MEDS: allopurinoL 300 MG TAB PO SCH (07:49)
[2021-03-27] MEDS: ESCITALOPRAM 10 MG TAB PO SCH (07:50)
[2021-03-27] MEDS: LACTATED RINGERS 1,000 ML IV SCH (07:50)
[2021-03-27] MEDS: HEPARIN SODIUM,PORCINE/PF 5,000 UNIT/0.5 ML SYRINGE SQ SCH ×2 (07:50→20:18)
[2021-03-27 10:45] LABS: Anisocytosis Moderate; Basophils % (A) 0 %; Eosinophils # (A) 0.1 k/uL (0-0.7); Eosinophils % (A) 2 %; HCT 38.4 % (39.0-53.0); HGB 10.8 gm/dL (13.0-17.5); Hypochromasia Marked; Lymphocytes # (A) 1.8 k/uL (1.0-4.8); Lymphocytes % (A) 33 %; MCH 22.4 pg (25.0-35.0); MCV 79.9 fL (80.0-100.0); Mean Platelet Volume 9.5; Microcytosis Slight; Monocytes # (A) 0.3 k/uL (0-1.0); Monocytes % (A) 5 %; Neutrophils % (A) 57 %; Platelet Count 213 k/uL (150-450); Poikilocytosis Slight; RDW 20.1 % (11.5-15.5); WBC 5.3 k/uL (3.8-10.6)
[2021-03-27 11:27] LABS: African American GFR (CKD) >90 (>60 ml/min/1.73 sqM); Anion Gap 9 mmol/L; Blood Urea Nitrogen 9 mg/dL (9-20); Carbon Dioxide 25 mmol/L (22-30); Chloride 102 mmol/L (98-107); Glucose 76 mg/dL (74-99); Non-African American GFR(CKD) >90 (>60 ml/min/1.73 sqM); Potassium 4.5 mmol/L (3.5-5.1); Sodium 136 mmol/L (137-145)
[2021-03-27 11:39] LABS: Glucose,Whole Blood 75 mg/dL (75-99)
[2021-03-27] MEDS: DOCUSATE 100 MG CAP PO SCH ×2 (12:30→20:18)
[2021-03-27] MEDS: HYDROcodone/APAP 5-325MG 1 EACH TAB PO PRN ×2 (12:30→20:18)
--- NOTE | 2021-03-27 13:18 | P.PN ---
Subjective Progress Note Date: 03/27/21 CHIEF COMPLAINT: Abdominal pain HISTORY OF PRESENT ILLNESS: Patient is status post laparoscopic cholecystectomy. He reports that his pain is controlled. He is having flatus. He denies any nausea or vomiting. He's tolerating regular diet. He is up and ambulating. He is afebrile. WBC 5.3 hemoglobin 10.8 PHYSICAL EXAM: VITAL SIGNS: Reviewed. GENERAL: Well-developed in no acute distress. HEENT: No sclera icterus. Extraocular movements grossly intact. Moist buccal mucosa. Head is atraumatic, normocephalic. ABDOMEN: Soft. Nondistended. Incision sites clean dry and intact NEUROLOGIC: Alert and oriented. Cranial nerves II through XII grossly intact. ASSESSMENT: 1. Cholelithiasis status post laparoscopic cholecystectomy 2. Small bowel obstruction treated conservatively 3. Acute pancreatitis with gallstones present on CAT scan and gallbladder dilation noted 4. Hyperkinetic gallbladder PLAN: -Continue regular diet -Add Percy for pain control -Add Colace -Encourage patient to ambulate -Anticipate discharge possibly tomorrow Physician Signals Intelligence Superintendent note has been reviewed by physician. Signing provider agrees with the documented findings, assessment, and plan of care. Objective - Vital Signs Vital signs: Vital Signs Temp 98.1 F 03/27/21 12:10 Pulse 74 03/27/21 12:10 Resp 17 03/27/21 12:10 BP 124/73 03/27/21 12:10 Pulse Ox 98 03/27/21 12:10 Intake & Output 03/26/21 03/27/21 03/27/21 18:59 06:59 18:59 Intake Total 1175 400 Output Total 855 Balance 320 400 Weight 108.862 kg Intake: IV 1175 Oral 400 Output: Urine 850 Estimated Blood Loss 5 Other: Voiding Method Toilet Urinal # Voids 3 - Labs CBC & Chem 7: 03/27/21 10:04 03/27/21 10:04 Labs: Abnormal Lab Results - Last 24 Hours (Table) 03/26/21 03/26/21 03/26/21 Range/Units 06:32 14:48 17:42 Hgb (13.0-17.5) gm/dL Hct (39.0-53.0) % MCV (80.0-100.0) fL MCH (25.0-35.0) pg MCHC (31.0-37.0) g/dL RDW (11.5-15.5) % Sodium (137-145) mmol/L Carbon Dioxide 20.9 L (21.6-31.8) mmol/L Anion Gap 17.10 H (4.00-12.00) mmol/L BUN 7.2 L (9.0-27.0) mg/dL BUN/Creatinine Ratio 11.97 L (12.00-20.00) Ratio POC Glucose (mg/dL) 122 H 155 H (75-99) mg/dL Calcium 8.5 L (8.7-10.3) mg/dL 03/27/21 03/27/21 03/27/21 Range/Units 01:22 06:03 10:04 Hgb 10.8 L (13.0-17.5) gm/dL Hct 38.4 L (39.0-53.0) % MCV 79.9 L (80.0-100.0) fL MCH 22.4 L (25.0-35.0) pg MCHC 28.0 L (31.0-37.0) g/dL RDW 20.1 H (11.5-15.5) % Sodium (137-145) mmol/L Carbon Dioxide (21.6-31.8) mmol/L Anion Gap (4.00-12.00) mmol/L BUN (9.0-27.0) mg/dL BUN/Creatinine Ratio (12.00-20.00) Ratio POC Glucose (mg/dL) 117 H 117 H (75-99) mg/dL Calcium (8.7-10.3) mg/dL 03/27/21 Range/Units 10:04 Hgb (13.0-17.5) gm/dL Hct (39.0-53.0) % MCV (80.0-100.0) fL MCH (25.0-35.0) pg MCHC (31.0-37.0) g/dL RDW (11.5-15.5) % Sodium 136 L (137-145) mmol/L Carbon Dioxide (21.6-31.8) mmol/L Anion Gap (4.00-12.00) mmol/L BUN (9.0-27.0) mg/dL BUN/Creatinine Ratio (12.00-20.00) Ratio POC Glucose (mg/dL) (75-99) mg/dL Calcium (8.7-10.3) mg/dL
--- NOTE | 2021-03-27 16:01 | P.PN ---
Subjective Progress Note Date: 03/27/21 This is a 55-year-old male who was recently admitted with abdominal distention along with some increased nausea and vomiting and is being closely monitored. Patient has a history of recurrent bowel obstruction and recently underwent hiatal hernia repair at another facility. General surgery following closely for possible small bowel obstruction. Patient continues to be nothing by mouth with occasional ice chips and continues to have some abdominal distention. Positive bowel sounds noted on exam although patient is not passing gas and has not had any bowel movements. Repeat abdominal x-ray ordered and pending. Patient having some critically low blood sugars in the 40s and 50s and will add dextrose to the IV solution and continue at 75 ML per hour. 03/20/2021 Patient is seen and evaluated in follow-up this morning being followed closely by surgery. Patient reports to having some abdominal discomfort although improved from yesterday. Positive bowel sounds noted in all 4 quadrants on exam although reports no passing gas or bowel movements as of yet. Abdominal x-ray showed colonic bowel gas with fecal debris and dilated small bowel loops suggest obstruction are not identified at this time and patient is feeling hungry. Being started on clear liquids and will monitor for tolerance and advance per surgical recommendations. Patient's CT previously showed some gallstones with dilatation and HIDA scan is being ordered. Patient continues to have low glucose readings and will continue dextrose and Accu-Cheks and closely monitor for hypoglycemia. 03/21/2021 Patient is seen in follow up and states that his abdominal pain is improving. Patient continues to have no gas with no bowel movements and bowel sounds are hypoactive today. Patient is on clear liquid diet and tolerating and requesting increase in diet. Surgery following and have increased diet to regular to monitor for tolerance and bowel activity. Encouraged frequent walking. Hida scan shows no evidence of acute chronic cholecystitis or biliary dyskinesia. Recommend outpatient follow up for further work up. Potassium 3.4 today and being replaced. 03/22/2021 Patient is seen and evaluated in follow-up this morning continues to have hypoglycemic events with no symptoms noted until Accu-Chek is performed and bloo d sugars have been in the low 50s to 60s requiring boluses of dextrose and patient is continued on D10 at 75 ML per hour. Will order C-peptide and insulin level and increase IV hydration to 100 ML per hour with continued Accu-Cheks and close monitoring. Patient attempted a regular diet and had increasing abdominal pain associated with nausea and vomiting after eating an increased right upper quadrant pain and surgery is following closely and plans are for tentative cholecystectomy this Friday. Patient diet will be decreased back to clear liquids and will continue to monitor tolerance closely. Patient reports passing gas but has not had any bowel movements. Encouraged increased activity and will continue to monitor. Sodium today is 138 with a potassium of 4.4 and current creatinine is 0.79. Patient also experiencing mild low-grade fevers of 99 and 99.8 last night and this morning. Will repeat labs along with a chest x-ray in the morning. 03/23/2021 Patient is seen in follow-up this morning continues to have hypoglycemic events and recommending continuing D10 and have ordered C-peptide which is pending. Insulin level is 6.9 which is within normal limits. Patient is maintained on full liquids and will continue. Patient reports to passing minimal gas in bowel sounds are hypoactive on exam. Patient denies any bowel movements at this time. Encourage the patient increased activity as tolerated and continue with walking multiple times throughout the day. White blood count is 3.5, hemoglobin is 11.7, platelets are 101, sodium is 138 with a potassium of 3.9 and current creatinine is 0.76. Vital signs remained stable and patient is afebrile. Chest x-ray today shows no acute pulmonary process. Patient is tentatively scheduled for cholecystectomy with surgery on Friday. 03/24/2021 Patient is evaluated today sitting up at the bedside. He is feeling overall well, he denies any abdominal pain at this time. He denies any nausea or vomiting. He is on full liquids and tolerating well. He does report a bowel movement throughout the evening that was negative for any signs of blood. Patient is able to ambulate. There are no labs for review today however his metabolic panel was unremarkable yesterday. His hemoglobin is improving on 0.7. We will repeat labs in the morning. Vital signs include a temp of 97.8, heart rate 64, blood pressure 158/103. 100% on room air. Monitor blood pressures closely, we will add medication if needed. Plan is still for a lap tawny on Friday. 03/25/2021 Patient is evaluated today sitting up at the bedside. Denies any nausea vomiting or abdominal pain. He does report bowel movements and passing gas. He is just pending lap tawny tomorrow morning. Vital signs include temperature 98.8, heart rate 81, blood pressure 127/64, 97% on 2 L nasal cannula. Labs reviewed included a white blood cell count 3.6, hemoglobin 11.8. This improved to 151. Sodium is 136. Blood pressure is improved at 155/87, 99% on room air. He is afebrile. 03/26/2021 Patient is seen this morning in follow up and states his abdominal pain has minimally improved. Patient continues to pass gas and reported a bowel movement yesterday. Patient is scheduled for laparascopic cholecystectomy today and is currently NPO. Patient maintained on D10 and will continue to closely monitor accuchecks. 03/27/2021 Patient is seen and evaluated in follow-up status post cholecystectomy and is having some mild tenderness at the surgical sites. Patient has been started on regular diet and tolerating and was maintained on D10 and will discontinue as blood sugars have been slightly improved and will continue with Accu-Cheks and close monitoring. Encouraged ambulation and continue with incentive spirometer use. Patient has been up and walking to the bathroom with no difficulties. Patient reports passing gas but no bowel movement. White blood count is 5.3 and hemoglobin is stable at 10.8, sodium is 136 with a potassium of 4.5 and current creatinine is 0.84. Review of systems: Constitutional: No reports of fatigue, fever, or chills Cardiovascular: No reports of chest pain or palpitations Respiratory: No reports of shortness of breath or cough GI: No reports of nausea and vomiting today, with mild abdominal pain, reports passing gas with no bowel movement today : No reports of dysuria or retention Neurovascular: No reports of weakness or numbness All medications have been reviewed. Active Medications Hydrocodone Bitart/Acetaminophen (Hydrocodone/Apap 5-325mg 1 Each Tab) 1 each PO Q4HR PRN PRN Reason: Moderate Pain Last Admin: 03/27/21 12:30 Dose: 1 each Documented by: Allopurinol (Allopurinol 300 Mg Tab) 300 mg PO DAILY MATT Last Admin: 03/27/21 07:49 Dose: 300 mg Documented by: Alprazolam (Alprazolam 0.25 Mg Tab) 0.25 mg PO TID PRN PRN Reason: Anxiety Last Admin: 03/24/21 18:14 Dose: 0.25 mg Documented by: Cyclobenzaprine HCl (Cyclobenzaprine 10 Mg Tab) 10 mg PO DAILY PRN PRN Reason: Spasms Docusate Sodium (Docusate 100 Mg Cap) 100 mg PO BID [facility] Last Admin: 03/27/21 12:30 Dose: 100 mg Documented by: Escitalopram Oxalate (Escitalopram 10 Mg Tab) 10 mg PO DAILY [facility] Last Admin: 03/27/21 07:50 Dose: 10 mg Documented by: Furosemide (Furosemide 20 Mg Tab) 20 mg PO DAILY PRN PRN Reason: Edema Heparin Sodium (Porcine) (Heparin Sodium,Porcine/Pf 5,000 Unit/0.5 Ml Syringe) 5,000 unit SQ Q12HR [facility] Last Admin: 03/27/21 07:50 Dose: 5,000 unit Documented by: Hydromorphone HCl (Hydromorphone 1 Mg/Ml 1 Ml Syringe) 1 mg IVP Q3HR PRN PRN Reason: Severe Pain Last Admin: 03/26/21 16:47 Dose: 1 mg Documented by: Lactated Ringer's (Lactated Ringers) 1,000 mls @ 20 mls/hr IV .Q24H [facility] Last Admin: 03/27/21 07:50 Dose: Not Given Documented by: Lidocaine HCl (Lidocaine 1% (10mg/Ml) For Iv Start) 0.1 ml INTRADERMA PER PROTOCOL PRN PRN Reason: IV Start Naloxone HCl (Naloxone 0.4 Mg/Ml 1 Ml Vial) 0.2 mg IV Q2M PRN PRN Reason: Opioid Reversal Ondansetron HCl (Ondansetron 4 Mg/2 Ml Vial) 4 mg IVP Q8HR PRN PRN Reason: Nausea And Vomiting Last Admin: 03/24/21 13:45 Dose: 4 mg Documented by: Pantoprazole Sodium (Pantoprazole 40 Mg Tablet) 40 mg PO DAILY [facility] Last Admin: 03/27/21 07:49 Dose: 40 mg Documented by: Temazepam (Temazepam 15 Mg Cap) 15 mg PO HS PRN PRN Reason: Insomnia Last Admin: 03/26/21 21:16 Dose: 15 mg Documented by: Physical exam: Gen: This is a 55-year-old male awake, alert and oriented 3, well-developed, well-nourished. HEENT: Head is atraumatic, normocephalic. Pupils equal, round. Sclerae is anicteric. NECK: Supple. No JVD. No lymphadenopathy. No thyromegaly. LUNGS: Clear to auscultation. No wheezes or rhonchi. No intercostal retractions. HEART: Regular rate and rhythm. No murmur. ABDOMEN: Soft. Bowel sounds are present. No masses. Surgical sites are dry and intact with no surrounding redness noted EXTREMITIES: No pedal edema. No calf tenderness. NEUROLOGICAL: Patient is awake, alert and oriented x3. Cranial nerves 2 through 12 are grossly intact. Assessment: Acute small bowel obstruction Status post laparoscopic cholecystectomy History of previous recurrent small bowel obstruction and surgery History of laparoscopic hiatal hernia repair recently Hypoglycemia, possibly secondary to nothing by mouth status for continued small bowel obstruction Dilated gallbladder with gallstones, laparoscopic cholecystectomy postop day #1 Elevated lipase, possible acute pancreatitis Elevated lactic acid, improved Atrial fibrillation history COPD not in acute exacerbation History of CVA, TIA GERD Hypertension Hyperlipidemia seizure disorder history of sleep apnea GI prophylaxis DVT prophylactics Full code Plan: Recommend continue with Accu-Cheks before meals and at bedtime and as needed and will discontinue D10 as patient is currently on regular diet and tolerating. Patient reports to passing gas but no bowel movement and will continue a bowel regimen and recommend outpatient follow-up with endocrine in regards to low blood sugars. Patient states he has no problems at home with blood sugars regularly either. Encouraged incentive spirometer and increased activity as tolerated. Monitor overnight with possibility of discharge in 24 hours. Objective - Vital Signs Vital signs: Vital Signs Temp 97.6 F 03/27/21 04:40 Pulse 69 03/27/21 04:40 Resp 20 03/27/21 04:40 BP 136/88 03/27/21 04:40 Pulse Ox 100 03/27/21 04:40 Intake & Output 03/26/21 03/27/21 03/27/21 18:59 06:59 18:59 Intake Total 1175 400 Output Total 855 Balance 320 400 Weight 108.862 kg Intake: IV 1175 Oral 400 Output: Urine 850 Estimated Blood Loss 5 Other: Voiding Method Toilet Urinal # Voids 3 - Labs CBC & Chem 7: 03/27/21 10:04 03/27/21 10:04 Labs: Abnormal Lab Results - Last 24 Hours (Table) 1003/26/21 03/26/21 Range/Units 06:32 10:44 14:48 Carbon Dioxide 20.9 L (21.6-31.8) mmol/L Anion Gap 17.10 H (4.00-12.00) mmol/L BUN 7.2 L (9.0-27.0) mg/dL BUN/Creatinine Ratio 11.97 L (12.00-20.00) Ratio POC Glucose (mg/dL) 121 H 122 H (75-99) mg/dL Calcium 8.5 L (8.7-10.3) mg/dL 03/26/21 03/27/21 03/27/21 Range/Units 17:42 01:22 06:03 Carbon Dioxide (21.6-31.8) mmol/L Anion Gap (4.00-12.00) mmol/L BUN (9.0-27.0) mg/dL BUN/Creatinine Ratio (12.00-20.00) Ratio POC Glucose (mg/dL) 155 H 117 H 117 H (75-99) mg/dL Calcium (8.7-10.3) mg/dL
[2021-03-27 17:24] LABS: Glucose,Whole Blood 111 mg/dL (75-99)
[2021-03-27 19:57] LABS: Glucose,Whole Blood 99 mg/dL (75-99)
[2021-03-27 20:14] VITALS: RESP 16
[2021-03-27] MEDS: TEMAZEPAM 15 MG CAP PO PRN (20:21)
[2021-03-28 02:31] LABS: Glucose,Whole Blood 84 mg/dL (75-99)
[2021-03-28 05:05] VITALS: BP 119/74; PULSE 66; TEMP 98.1
[2021-03-28 06:53] LABS: Glucose,Whole Blood 74 mg/dL (75-99)
[2021-03-28] MEDS: allopurinoL 300 MG TAB PO SCH (09:00)
[2021-03-28] MEDS: PANTOPRAZOLE 40 MG TABLET PO SCH (09:00)
[2021-03-28] MEDS: DOCUSATE 100 MG CAP PO SCH (09:00)
[2021-03-28] MEDS: HYDROcodone/APAP 5-325MG 1 EACH TAB PO PRN (09:00)
[2021-03-28] MEDS: HEPARIN SODIUM,PORCINE/PF 5,000 UNIT/0.5 ML SYRINGE SQ SCH (09:00)
[2021-03-28] MEDS: ESCITALOPRAM 10 MG TAB PO SCH (09:00)
[2021-03-28 09:07] LABS: Glucose,Whole Blood 139 mg/dL (75-99)
--- NOTE | 2021-03-28 12:35 | P.PN ---
Subjective Progress Note Date: 03/28/21 CHIEF COMPLAINT: Abdominal pain HISTORY OF PRESENT ILLNESS: Patient is status post laparoscopic cholecystectomy. Postop day #2. He reports that his pain is controlled. He is having flatus. He denies any nausea or vomiting. He's tolerating regular diet. He is up and ambulating. He is afebrile. PHYSICAL EXAM: VITAL SIGNS: Reviewed. GENERAL: Well-developed in no acute distress. HEENT: No sclera icterus. Extraocular movements grossly intact. Moist buccal mucosa. Head is atraumatic, normocephalic. ABDOMEN: Soft. Nondistended. Incision sites clean dry and intact NEUROLOGIC: Alert and oriented. Cranial nerves II through XII grossly intact. ASSESSMENT: 1. Cholelithiasis status post laparoscopic cholecystectomy 2. Small bowel obstruction treated conservatively 3. Acute pancreatitis with gallstones present on CAT scan and gallbladder dilation noted 4. Hyperkinetic gallbladder PLAN: -Patient can be discharged from surgical standpoint -Continue pain medication as needed -Recommend Colace and MiraLAX at home to help maintain good bowel regimen Physician Pin Inserter note has been reviewed by physician. Signing provider agrees with the documented findings, assessment, and plan of care. Objective - Vital Signs Vital signs: Vital Signs Temp 98.1 F 03/28/21 05:00 Pulse 66 03/28/21 05:00 Resp 16 03/28/21 05:00 BP 119/74 03/28/21 05:00 Pulse Ox 98 03/28/21 05:00 Intake & Output 03/27/21 03/28/21 03/28/21 18:59 06:59 18:59 Intake Total 400 Output Total 400 Balance 400 -400 Intake: Intake, IV Titration 400 Amount Dextrose 10% in Water 1, 400 000 ml @ 100 mls/hr IV . [id number] MATT with Sodium Chloride 4Meq/ml Vial 153 .8 meq Rx#:[id number] Output: Urine 400 Other: Voiding Method Urinal # Voids 3 - Labs CBC & Chem 7: 03/27/21 10:04 03/27/21 10:04 Labs: Abnormal Lab Results - Last 24 Hours (Table) 03/27/21 03/28/21 03/28/21 Range/Units 17:23 06:51 09:06 POC Glucose (mg/dL) 111 H 74 L 139 H (75-99) mg/dL
[2021-03-28] MEDS: LACTATED RINGERS 1,000 ML IV SCH (13:51)
--- NOTE | 2021-03-30 09:54 | P.DS ---
Providers Date of admission: 03/17/21 21:26 Expected date of discharge: 03/28/21 Attending physician: Edgar Jauregui Consults: 03/19/21 10:56 Consult Physician Routine Consulting Provider: Sourav Zarate Consult Reason/Comments: SBO Do you want consulting provider notified?: Already Contacted Primary care physician: Eric Ang [facility] Course: Final diagnosis Acute small bowel obstruction Status post laparoscopic cholecystectomy History of previous recurrent small bowel obstruction and surgery History of laparoscopic hiatal hernia repair recently Hypoglycemia, possibly secondary to nothing by mouth status for continued small bowel obstruction Dilated gallbladder with gallstones, laparoscopic cholecystectomy postop day #2 Elevated lipase, possible acute pancreatitis Elevated lactic acid, improved Atrial fibrillation history COPD not in acute exacerbation History of CVA, TIA GERD Hypertension Hyperlipidemia seizure disorder history of sleep apnea GI prophylaxis DVT prophylactics Full code Discharge disposition Patient is being discharged in a stable condition with guarded prognosis to home. Patient will follow-up with Dr. Alexandrea Ang in the outpatient setting upon discharge. Patient will also follow-up with surgery and endocrine in the outpatient setting in 1 week. Total time taken is greater than 35 minutes. Hospital course This is a 55-year-old male who was recently admitted with abdominal distention along with some increased nausea and vomiting and is being closely monitored. Patient has a history of recurrent bowel obstruction and recently underwent hiatal hernia repair at another facility. General surgery following closely for possible small bowel obstruction. Patient continues to be nothing by mouth with occasional ice chips and continues to have some abdominal distention. Positive bowel sounds noted on exam although patient is not passing gas and has not had any bowel movements. Repeat abdominal x-ray ordered and pending. Patient having some critically low blood sugars in the 40s and 50s and will add dextrose to the IV solution and continue at 75 ML per hour. 03/20/2021 Patient is seen and evaluated in follow-up this morning being followed closely by surgery. Patient reports to having some abdominal discomfort although improved from yesterday. Positive bowel sounds noted in all 4 quadrants on exam although reports no passing gas or bowel movements as of yet. Abdominal x-ray showed colonic bowel gas with fecal debris and dilated small bowel loops suggest obstruction are not identified at this time and patient is feeling hungry. Being started on clear liquids and will monitor for tolerance and advance per surgical recommendations. Patient's CT previously showed some gallstones with dilatation and HIDA scan is being ordered. Patient continues to have low glucose readings and will continue dextrose and Accu-Cheks and closely monitor for hypoglycemia. 03/21/2021 Patient is seen in follow up and states that his abdominal pain is improving. Patient continues to have no gas with no bowel movements and bowel sounds are hypoactive today. Patient is on clear liquid diet and tolerating and requesting increase in diet. Surgery following and have increased diet to regular to monitor for tolerance and bowel activity. Encouraged frequent walking. Hida scan shows no evidence of acute chronic cholecystitis or biliary dyskinesia. Recommend outpatient follow up for further work up. Potassium 3.4 today and being replaced. 03/22/2021 Patient is seen and evaluated in follow-up this morning continues to have hypoglycemic events with no symptoms noted until Accu-Chek is performed and blood sugars have been in the low 50s to 60s requiring boluses of dextrose and patient is continued on D10 at 75 ML per hour. Will order C-peptide and insulin level and increase IV hydration to 100 ML per hour with continued Accu-Cheks and close monitoring. Patient attempted a regular diet and had increasing abdominal pain associated with nausea and vomiting after eating an increased right upper quadrant pain and surgery is following closely and plans are for tentative cholecystectomy this Friday. Patient diet will be decreased back to clear liquids and will continue to monitor tolerance closely. Patient reports passing gas but has not had any bowel movements. Encouraged increased activity and will continue to monitor. Sodium today is 138 with a potassium of 4.4 and current creatinine is 0.79. Patient also experiencing mild low-grade fevers of 99 and 99.8 last night and this morning. Will repeat labs along with a chest x-ray in the morning. 03/23/2021 Patient is seen in follow-up this morning continues to have hypoglycemic events and recommending continuing D10 and have ordered C-peptide which is pending. Insulin level is 6.9 which is within normal limits. Patient is maintained on full liquids and will continue. Patient reports to passing minimal gas in bowel sounds are hypoactive on exam. Patient denies any bowel movements at this time. Encourage the patient increased activity as tolerated and continue with walking multiple times throughout the day. White blood count is 3.5, hemoglobin is 11.7, platelets are 101, sodium is 138 with a potassium of 3.9 and current creatinine is 0.76. Vital signs remained stable and patient is afebrile. Chest x-ray today shows no acute pulmonary process. Patient is tentatively scheduled for cholecystectomy with surgery on Friday. 03/24/2021 Patient is evaluated today sitting up at the bedside. He is feeling overall well, he denies any abdominal pain at this time. He denies any nausea or vomiting. He is on full liquids and tolerating well. He does report a bowel movement throughout the evening that was negative for any signs of blood. Patient is able to ambulate. There are no labs for review today however his metabolic panel was unremarkable yesterday. His hemoglobin is improving on 0.7. We will repeat labs in the morning. Vital signs include a temp of 97.8, heart rate 64, blood pressure 158/103. 100% on room air. Monitor blood pressures closely, we will add medication if needed. Plan is still for a lap tawny on Friday. 03/25/2021 Patient is evaluated today sitting up at the bedside. Denies any nausea vomiting or abdominal pain. He does report bowel movements and passing gas. He is just pending lap tawny tomorrow morning. Vital signs include temperature 98.8, heart rate 81, blood pressure 127/64, 97% on 2 L nasal cannula. Labs reviewed included a white blood cell count 3.6, hemoglobin 11.8. This improved to 151. Sodium is 136. Blood pressure is improved at 155/87, 99% on room air. He is afebrile. 03/26/2021 Patient is seen this morning in follow up and states his abdominal pain has mi nimally improved. Patient continues to pass gas and reported a bowel movement yesterday. Patient is scheduled for laparascopic cholecystectomy today and is currently NPO. Patient maintained on D10 and will continue to closely monitor accuchecks. 03/27/2021 Patient is seen and evaluated in follow-up status post cholecystectomy and is having some mild tenderness at the surgical sites. Patient has been started on regular diet and tolerating and was maintained on D10 and will discontinue as blood sugars have been slightly improved and will continue with Accu-Cheks and close monitoring. Encouraged ambulation and continue with incentive spirometer use. Patient has been up and walking to the bathroom with no difficulties. Patient reports passing gas but no bowel movement. White blood count is 5.3 and hemoglobin is stable at 10.8, sodium is 136 with a potassium of 4.5 and current creatinine is 0.84. 03/28/2021 Patient was seen and evaluated this morning and continues to have some mild discomfort of the abdomen although feels improved. Patient has been up and walking and tolerating diet. Patient reports passing gas but denies bowel movement since 2 days prior. We'll continue bowel regimen. Patient has been off of D10 and sugars have been controlled and recommend following up with endocrine for further testing in the outpatient setting. Patient will also follow-up with surgery in one week on discharge. Strongly encourage the patient to continue monitoring Accu-Cheks as he does not become symptomatic with episodes of hypoglycemia and this needs to be closely monitored. Continue with glucagon kit at all times. Currently no reports of chest pain, shortness of breath, or palpitations. Patient is afebrile. No reports of nausea or vomiting and patient is tolerating diet. Patient will be discharged home today. Guarded prognosis. Gen: This is a 55-year-old male awake, alert and oriented 3, well-developed, well-nourished. HEENT: Head is atraumatic, normocephalic. Pupils equal, round. Sclerae is anicteric. NECK: Supple. No JVD. No lymphadenopathy. No thyromegaly. LUNGS: Clear to auscultation. No wheezes or rhonchi. No intercostal retractions. HEART: Regular rate and rhythm. No murmur. ABDOMEN: Soft. Bowel sounds are present. No masses. Surgical sites are dry and intact with no surrounding redness noted EXTREMITIES: No pedal edema. No calf tenderness. NEUROLOGICAL: Patient is awake, alert and oriented x3. Cranial nerves 2 through 12 are grossly intact. Please refer to medication reconciliation sheet for a list of medications. Patient Condition at Discharge: Fair Plan - Discharge Summary Discharge Rx Participant: Yes New Discharge Prescriptions: New HYDROcodone/APAP 5-325MG [Provo 5-325] 1 tab PO Q6HR PRN 3 Days #12 tab PRN Reason: Pain Docusate [Colace] 100 mg PO BID #30 cap Continue Escitalopram [Lexapro] 10 mg PO DAILY Allopurinol [Zyloprim] 300 mg PO DAILY Omeprazole 40 mg PO BID #60 cap Glucagon Emergency Kit 1 mg IM ONCE #1 kit Ergocalciferol [Vitamin D2 (1250 Mcg = 51417 Iu)] 1,250 mcg PO MO Furosemide [Lasix] 20 mg PO DAILY PRN PRN Reason: Edema Melatonin 3 mg PO HS PRN tablet PRN Reason: Insomnia Cyclobenzaprine [Flexeril] 10 mg PO DAILY PRN PRN Reason: Spasms Changed polyethylene glycoL 3350 [Miralax] 17 gm PO DAILY 30 Days #30 packet Discontinued Sulfamethox-Tmp 800-160Mg [Bactrim DS 800-160 mg] 1 tab PO Q12HR Discharge Medication List Allopurinol [Zyloprim] 300 mg PO DAILY 06/04/16 [History] Escitalopram [Lexapro] 10 mg PO DAILY 06/04/16 [History] Omeprazole 40 mg PO BID #60 cap 07/06/19 [Rx] Ergocalciferol [Vitamin D2 (1250 Mcg = 88345 Iu)] 1,250 mcg PO MO 09/26/20 [History] Furosemide [Lasix] 20 mg PO DAILY PRN 10/18/20 [History] Melatonin 3 mg PO HS PRN tablet 10/21/20 [Rx] Glucagon Emergency Kit 1 mg IM ONCE #1 kit 12/06/20 [Rx] Cyclobenzaprine [Flexeril] 10 mg PO DAILY PRN 03/17/21 [History] Docusate [Colace] 100 mg PO BID #30 cap 03/28/21 [Rx] HYDROcodone/APAP 5-325MG [Provo 5-325] 1 tab PO Q6HR PRN 3 Days #12 tab 03/28/21 [Rx] polyethylene glycoL 3350 [Miralax] 17 gm PO DAILY 30 Days #30 packet 03/28/21 [Rx] Follow up Appointment(s)/Referral(s): Christian Ward MD [REFERRING] - 1 Week (PATIENT WILL NEED A REFERRAL FROM PRIMARY CARE PHYSICIAN BEFORE HE IS ABLE TO BE SEEN.) Eric Ang DO [Primary Care Provider] - 03/30/21 1:00 pm (Appointment will be with Parminder SAPP. YOU WILL NEED A REFERRAL TO SEE DR. WARD AT THIS APPOINTMENT.) Sourav Zarate MD [STAFF PHYSICIAN] - 04/05/21 3:15 pm Patient Instructions/Handouts: Non-diabetic Hypoglycemia (DC), Bowel Obstruction (DC), Laparoscopic Cholecystectomy (DC) Activity/Diet/Wound Care/Special Instructions: Activity Limited until follow-up Follow-up with surgery in one week Continue current diet Monitor blood sugars and follow up with endocrine outpatient for possible further testing in regards to hypoglycemia Encouraged activity as tolerated with walking frequently Continue incentive spirometer Follow-up with primary care provider on discharge Continue with bowel regimen Discharge Disposition: HOME SELF-CARE
== END 2021-03-28 16:30 | disposition home or self-care (01) | DRG 356 ==
LOC: EC 17:05 → 5NMEDONC 21:26
PROVIDERS: ADMIT Hospitalist; ATTEND Hospitalist
PROC: 0D9670Z Drainage of Stomach with Drainage Device, Via Natural or Artificial Opening (ICD-10-PCS; principal; 2021-03-17)
PROC: 0FT44ZZ Resection of Gallbladder, Percutaneous Endoscopic Approach (ICD-10-PCS; 2021-03-26)
DX: K56.609 Unspecified intestinal obstruction, unspecified as to partial versus complete obstruction (principal); K85.10 Biliary acute pancreatitis without necrosis or infection; K80.10 Calculus of gallbladder with chronic cholecystitis without obstruction; J44.9 Chronic obstructive pulmonary disease, unspecified; E16.2 Hypoglycemia, unspecified; Z20.822 Contact with and (suspected) exposure to COVID-19; G40.909 Epilepsy, unspecified, not intractable, without status epilepticus; I10 Essential (primary) hypertension; E78.5 Hyperlipidemia, unspecified; E86.0 Dehydration; K44.9 Diaphragmatic hernia without obstruction or gangrene; K21.9 Gastro-esophageal reflux disease without esophagitis; M19.90 Unspecified osteoarthritis, unspecified site; Z79.899 Other long term (current) drug therapy; I48.91 Unspecified atrial fibrillation; G57.93 Unspecified mononeuropathy of bilateral lower limbs; M10.9 Gout, unspecified; K82.8 Other specified diseases of gallbladder; G89.29 Other chronic pain; M54.9 Dorsalgia, unspecified; F13.10 Sedative, hypnotic or anxiolytic abuse, uncomplicated; G47.30 Sleep apnea, unspecified; K59.00 Constipation, unspecified; F32.9 Major depressive disorder, single episode, unspecified; F41.9 Anxiety disorder, unspecified; Z98.84 Bariatric surgery status; Z86.73 Personal history of transient ischemic attack (TIA), and cerebral infarction without residual deficits; Z87.01 Personal history of pneumonia (recurrent); Z87.891 Personal history of nicotine dependence; Z96.612 Presence of left artificial shoulder joint; Z96.643 Presence of artificial hip joint, bilateral; Z98.1 Arthrodesis status; Z90.49 Acquired absence of other specified parts of digestive tract; Z96.82 Presence of neurostimulator; Z87.19 Personal history of other diseases of the digestive system
CPT/HCPCS: 36415; 71045; 71046; 74018; 74019; 74176; 74177; 78227; 80048; 80053; 80061; 81001; 82150; 82947; 83525; 83605; 83690; 83735; 84681; 85025; 87635; 88304; 96361; 96374; 99285

== ENCOUNTER 2021-07-20 11:18 | Emergency (ER) | payer MEDICARE, OTHER ==
[2021-07-20] MEDS ORDERED: HYDROmorphone 0.5 MG/0.5 ML SYRINGE IVP STA (12:08)
[2021-07-20] MEDS ORDERED: SODIUM CHLORIDE 0.9% 1,000 ML IV STA (12:08)
[2021-07-20] MEDS ORDERED: ONDANSETRON 4 MG/2 ML VIAL IVP STA (12:08)
[2021-07-20 12:54] LABS: Anisocytosis Slight; Basophils % (A) 0 %; Eosinophils # (A) 0.1 k/uL (0-0.7); Eosinophils % (A) 5 %; HCT 41.3 % (39.0-53.0); Hypochromasia Marked; Lymphocytes % (A) 39 %; MCH 25.1 pg (25.0-35.0); MCHC 29.1 g/dL (31.0-37.0); MCV 86.1 fL (80.0-100.0); Mean Platelet Volume 9.1; Monocytes # (A) 0.1 k/uL (0-1.0); Monocytes % (A) 6 %; Neutrophils # (A) 1.3 k/uL (1.3-7.7); Neutrophils % (A) 48 %; Platelet Count 208 k/uL (150-450); RBC 4.79 m/uL (4.30-5.90); RDW 17.2 % (11.5-15.5); WBC 2.6 k/uL (3.8-10.6)
[2021-07-20 13:04] LABS: ALT 11 U/L (4-49); AST 26 U/L (17-59); African American GFR (CKD) >90 (>60 ml/min/1.73 sqM); Albumin 3.7 g/dL (3.5-5.0); Alkaline Phosphatase 125 U/L (38-126); Amylase 79 U/L (30-110); Anion Gap 8 mmol/L; Blood Urea Nitrogen 14 mg/dL (9-20); Calcium 9.4 mg/dL (8.4-10.2); Carbon Dioxide 29 mmol/L (22-30); Chloride 100 mmol/L (98-107); Glucose 86 mg/dL (74-99); Lipase 86 U/L (23-300); Non-African American GFR(CKD) 81 (>60 ml/min/1.73 sqM); Potassium 4.1 mmol/L (3.5-5.1); Sodium 137 mmol/L (137-145); Total Bilirubin 1.4 mg/dL (0.2-1.3); Total Protein 7.6 g/dL (6.3-8.2)
--- NOTE | 2021-07-20 13:39 | CT ---
EXAMINATION TYPE: CT abdomen pelvis w con DATE OF EXAM: 07/20/2021 COMPARISON: 03/22/2021 HISTORY: 56-year-old male Abdominal pain/Hx of SBO TECHNIQUE: Contiguous axial scanning of the abdomen and pelvis following administration of 100 ml Iso hakan 300 IV contrast. Delayed images through the kidneys and coronal/sagittal reconstructions perform ed. CT DLP: 1321.9 mGycm Automated exposure control for dose reduction was used. FINDINGS: Heart normal size without pericardial effusion. Lung bases clear without pleural effusion. Postsurgical change along the stomach, probably relating to sleeve gastrectomy. There is associated h iatal hernia, small to moderate in size. Some circumferential wall thickening of the visualized dista l esophagus. Mild intrahepatic biliary ductal dilatation. Bile duct prominent at 1 cm now. Gallbladder appears to be surgically absent but there could be either a retained 5 mm calculus near the cystic duct versus s urgical material. Portal venous system is patent. Mild anasarca changes. Adrenal glands, left kidney, and atrophic pancreas show no gross abnormality. Some focal areas of hyperdensity could represent surgical material/clips just below the greater curva ture of the stomach. Unchanged from prior. No dilated small bowel, free fluid, or free air. No evident mesenteric or retroperitoneal lymphadenop athy though overall possibility of intra-abdominal fat limits evaluation. Segments of a normal air-filled appendix visualized in the right lower quadrant. Some questionable fo vianney fold thickening along the ascending colon, axial image 34. Moderate overall stool burden. Limited assessment of the mid to distal sigmoid and pelvic structures due to extensive streak and beam harde moreno artifact from the patient's bilateral total hip replacements. There seems to be air located nondependently within the bladder. This requires further clinical corre lation. Most of the bladder is entirely obscured. Some pelvic phleboliths noted on the left. Bones: Bilateral total hip arthroplasties. Previous laminectomy change at L4 and L3. Right-sided L3 pars interarticularis defect. Accentuated mid lumbar lordosis. Severe hypertrophic fac et arthropathy with grade 1 anterolisthesis L4-L5 with associated moderate degenerative disc disease. Additional moderate degenerative disc disease L5-S1. A generator device is projected along the anterior left lower quadrant. Retained spinal stimulator le ad enters the left L1-L2 interlaminar space. IMPRESSION: 1. NO EVIDENCE FOR BOWEL OBSTRUCTION. 2. SURGICAL CHANGES ALONG THE STOMACH, LIKELY RELATING TO SLEEVE GASTRECTOMY. THERE IS AN ASSOCIATED SMALL TO MODERATE SIZED HIATAL HERNIA. SOME CIRCUMFERENTIAL WALL THICKENING OF THE VISUALIZED DISTAL ESOPHAGUS COULD REPRESENT ESOPHAGITIS SUCH FROM REFLUX DISEASE. CLINICALLY CORRELATE. 3. MILD BILIARY DUCTAL DILATATION NOW UP TO 1 CM. THIS LIKELY RELATES TO INTERVAL CHOLECYSTECTOMY. CO RRELATE WITH ALKALINE PHOSPHATASE AND BILIRUBIN LEVELS. THERE IS EITHER A RETAINED 5 MM CALCULUS VE RSUS SURGICAL CLIP NEAR THE CYSTIC DUCT. 4. QUESTIONABLE MURAL/FOLD THICKENING ALONG THE ASCENDING COLON. RECOMMEND DIRECT VISUALIZATION TO EX CLUDE A MUCOSAL LESION IF ROUTINE SCREENING COLONOSCOPY IS NOT BEING PERFORMED. 5. DIFFICULT ASSESSMENT OF THE PELVIS DUE TO EXTENSIVE METAL HARDWARE ARTIFACT FROM THE HIP REPLACEME NTS. THERE SEEMS TO BE SOME INTRALUMINAL BLADDER AIR. QUERY ANY RECENT INSTRUMENTATION.
--- NOTE | 2021-07-20 14:02 | ED ---
Abdominal Pain HPI - General Chief Complaint: Abdominal Pain Stated Complaint: abd pain, no bowel movement Time Seen by Provider: 07/20/21 11:45 Source: patient, RN notes reviewed Mode of arrival: ambulatory Limitations: no limitations - History of Present Illness Initial Comments: 56-year-old male presents emergency Department with chief complaint of upper abdominal pain. Patient states been having increasing pain last 1 week. He states he does not have a good bowel movement. Patient states concerned they may have ball obstruction as his hadn't the past. Patient had cholecystectomy approximately [address] Zarate. Patient had also abdominal surgeries. No dysuria no hematuria no fevers chills no chest pain or shortness breath or back pain. Patient states she's had some nausea, vomiting. - Related Data Home Medications Medication Instructions Recorded Confirmed Allopurinol [Zyloprim] 300 mg PO DAILY 06/04/16 07/20/21 Escitalopram [Lexapro] 10 mg PO DAILY 06/04/16 07/20/21 Ergocalciferol [Vitamin D2 (1250 1,250 mcg PO MO 09/26/20 07/20/21 Mcg = 40870 Iu)] Cyclobenzaprine [Flexeril] 10 mg PO BID 03/17/21 07/20/21 Docusate [Colace] 100 mg PO DAILY 07/20/21 07/20/21 Morphine Pain Pump 1 dose INTRATHECA CONTINUOUS 07/20/21 07/20/21 Omeprazole 40 mg PO DAILY 07/20/21 07/20/21 Previous Rx's Medication Instructions Recorded polyethylene glycoL 3350 [Miralax] 17 gm PO DAILY 30 Days #30 packet 03/28/21 Ondansetron Odt [Zofran Odt] 4 mg PO Q8HR PRN #10 tab 07/20/21 Sulfamethox-Tmp 800-160Mg [Bactrim 1 each PO Q12HR #14 tab 07/20/21 Ds] Allergies Allergy/AdvReac Type Severity Reaction Status Date / Time No Known Allergies Allergy Verified 07/20/21 12:12 Review of Systems ROS Statement: Those systems with pertinent positive or pertinent negative responses have been documented in the HPI. ROS Other: All systems not noted in ROS Statement are negative. Past Medical History Past Medical History: Atrial Fibrillation, COPD, CVA/TIA, GERD/Reflux, Hyperlipidemia, Hypertension, Osteoarthritis (OA), Pneumonia, Seizure Disorder, Sleep Apnea/CPAP/BIPAP Additional Past Medical History / Comment(s): hiatal hernia, gout, neuropathy marta legs and feet- states feet are numb, some numbness in legs & tingling in hands., chronic back pain., constipation., dysphagia-hx of EGD with dilation, chronic esophogeal stenosis. Last October 2019, states frequent pneumonia, bowel blockage History of Any Multi-Drug Resistant Organisms: CRE, ESBL Date of last positivie culture/infection: 09/28/20 ESBL Klebsiella MDRO Source:: Sputum Past Surgical History: Back Surgery, Bariatric Surgery, Bowel Resection, Cholecystectomy, Heart Catheterization, Joint Replacement, Orthopedic Surgery Additional Past Surgical History / Comment(s): PAIN PUMP IMPLANTED 07/17/18, HX GASTRIC SLEEVE AND . BILATERAL KNEE arthroscopy, BILATERAL HIP replacement, LEFT SHOULDER replacement, LEFT ACHILES TENDON SX., RIGHT BIG TOE took piece out, echocardiolgram, spinal fusion, EGD with dilation., STATES HX OF PNEUMONIA WITH LUNG SURGERY., REPAIR OF HIATAL HERNIA & LYSIS OF ADHESIONS Past Anesthesia/Blood Transfusion Reactions: No Reported Reaction Past Psychological History: Anxiety, Depression Smoking Status: Former smoker Past Alcohol Use History: None Reported Past Drug Use History: None Reported - Past Family History Father Family Medical History: Cancer Additional Family Medical History / Comment(s): lung Mother Family Medical History: Coronary Artery Disease (CAD) Additional Family Medical History / Comment(s): . General Exam Limitations: no limitations General appearance: alert, in no apparent distress Head exam: Present: atraumatic, normocephalic, normal inspection Eye exam: Present: normal appearance, PERRL, EOMI. Absent: scleral icterus, conjunctival injection, periorbital swelling ENT exam: Present: normal exam, mucous membranes moist Neck exam: Present: normal inspection, full ROM. Absent: tenderness, meni ngismus, lymphadenopathy Respiratory exam: Present: normal lung sounds bilaterally. Absent: respiratory distress, wheezes, rales, rhonchi, stridor Cardiovascular Exam: Present: regular rate, normal rhythm, normal heart sounds. Absent: systolic murmur, diastolic murmur, rubs, gallop, clicks GI/Abdominal exam: Present: soft, normal bowel sounds. Absent: distended, tenderness, guarding, rebound, rigid Back exam: Absent: CVA tenderness (R), CVA tenderness (L) Neurological exam: Present: alert, oriented X3 Course Vital Signs 07/20/21 11:26 Temperature 97.2 F L Pulse Rate 56 L Respiratory 18 Rate Blood Pressure 135/87 O2 Sat by Pulse 96 Oximetry Medical Decision Making - Medical Decision Making 56-year-old was on for nausea vomiting abdominal pain constipation. CT does not show any evidence of obstruction. Patient does have evidence of urinary tract infection. Patient started on IV antibiotics, we discharged with oral antiemetics. Patient will given antiemetics, relaxes. Return parameters were discussed. - Lab Data Result diagrams: 07/20/21 12:26 07/20/21 12:26 Lab Results 07/20/21 07/20/21 07/20/21 Range/Units 12:26 12:26 12:26 WBC 2.6 L (3.8-10.6) k/uL RBC 4.79 (4.30-5.90) m/uL Hgb 12.0 L (13.0-17.5) gm/dL Hct 41.3 (39.0-53.0) % MCV 86.1 (80.0-100.0) fL MCH 25.1 (25.0-35.0) pg MCHC 29.1 L (31.0-37.0) g/dL RDW 17.2 H (11.5-15.5) % Plt Count 208 (150-450) k/uL MPV 9.1 Neutrophils % 48 % Lymphocytes % 39 % Monocytes % 6 % Eosinophils % 5 % Basophils % 0 % Neutrophils # 1.3 (1.3-7.7) k/uL Lymphocytes # 1.0 (1.0-4.8) k/uL Monocytes # 0.1 (0-1.0) k/uL Eosinophils # 0.1 (0-0.7) k/uL Basophils # 0.0 (0-0.2) k/uL Hypochromasia Marked Anisocytosis Slight Sodium 137 (137-145) mmol/L Potassium 4.1 (3.5-5.1) mmol/L Chloride 100 (98-107) mmol/L Carbon Dioxide 29 (22-30) mmol/L Anion Gap 8 mmol/L BUN 14 (9-20) mg/dL Creatinine 1.02 (0.66-1.25) mg/dL Est GFR (CKD-EPI)AfAm >90 (>60 ml/min/1.73 sqM) Est GFR (CKD-EPI)NonAf 81 (>60 ml/min/1.73 sqM) Glucose 86 (74-99) mg/dL Plasma Lactic Acid Suresh 1.4 (0.7-2.0) mmol/L Calcium 9.4 (8.4-10.2) mg/dL Total Bilirubin 1.4 H (0.2-1.3) mg/dL AST 26 (17-59) U/L ALT 11 (4-49) U/L Alkaline Phosphatase 125 (38-126) U/L Total Protein 7.6 (6.3-8.2) g/dL Albumin 3.7 (3.5-5.0) g/dL Amylase 79 (30-110) U/L Lipase 86 (23-300) U/L Urine Color Urine Appearance (Clear) Urine pH (5.0-8.0) Ur Specific Amelia (1.001-1.035) Urine Protein (Negative) Urine Glucose (UA) (Negative) Urine Ketones (Negative) Urine Blood (Negative) Urine Nitrite (Negative) Urine Bilirubin (Negative) Urine Urobilinogen (<2.0) mg/dL Ur Leukocyte Esterase (Negative) Urine RBC (0-5) /hpf Urine WBC (0-5) /hpf Ur Squamous Epith Cells (0-4) /hpf Urine Bacteria (None) /hpf Urine Mucus (None) /hpf 07/20/21 Range/Units 13:54 WBC (3.8-10.6) k/uL RBC (4.30-5.90) m/uL Hgb (13.0-17.5) gm/dL Hct (39.0-53.0) % MCV (80.0-100.0) fL MCH (25.0-35.0) pg MCHC (31.0-37.0) g/dL RDW (11.5-15.5) % Plt Count (150-450) k/uL MPV Neutrophils % % Lymphocytes % % Monocytes % % Eosinophils % % Basophils % % Neutrophils # (1.3-7.7) k/uL Lymphocytes # (1.0-4.8) k/uL Monocytes # (0-1.0) k/uL Eosinophils # (0-0.7) k/uL Basophils # (0-0.2) k/uL Hypochromasia Anisocytosis Sodium (137-145) mmol/L Potassium (3.5-5.1) mmol/L Chloride (98-107) mmol/L Carbon Dioxide (22-30) mmol/L Anion Gap mmol/L BUN (9-20) mg/dL Creatinine (0.66-1.25) mg/dL Est GFR (CKD-EPI)AfAm (>60 ml/min/1.73 sqM) Est GFR (CKD-EPI)NonAf (>60 ml/min/1.73 sqM) Glucose (74-99) mg/dL Plasma Lactic Acid Suresh (0.7-2.0) mmol/L Calcium (8.4-10.2) mg/dL Total Bilirubin (0.2-1.3) mg/dL AST (17-59) U/L ALT (4-49) U/L Alkaline Phosphatase (38-126) U/L Total Protein (6.3-8.2) g/dL Albumin (3.5-5.0) g/dL Amylase (30-110) U/L Lipase (23-300) U/L Urine Color Yellow Urine Appearance Cloudy (Clear) Urine pH 6.5 (5.0-8.0) Ur Specific Amelia 1.032 (1.001-1.035) Urine Protein Trace H (Negative) Urine Glucose (UA) Negative (Negative) Urine Ketones Negative (Negative) Urine Blood Negative (Negative) Urine Nitrite Negative (Negative) Urine Bilirubin Negative (Negative) Urine Urobilinogen 4.0 (<2.0) mg/dL Ur Leukocyte Esterase Large H (Negative) Urine RBC 9 H (0-5) /hpf Urine WBC 33 H (0-5) /hpf Ur Squamous Epith Cells 2 (0-4) /hpf Urine Bacteria Rare H (None) /hpf Urine Mucus Rare H (None) /hpf Disposition Clinical Impression: Nausea & vomiting, Constipation, Abdominal pain, Urinary tract infection Disposition: HOME SELF-CARE Condition: Stable Instructions (If sedation given, give patient instructions): Abdominal Pain (ED) Additional Instructions: Please return to the Emergency Department if symptoms worsen or any other con cerns. Prescriptions: Sulfamethox-Tmp 800-160Mg [Bactrim Ds] 1 each PO Q12HR #14 tab Ondansetron Odt [Zofran Odt] 4 mg PO Q8HR PRN #10 tab PRN Reason: Nausea Is patient prescribed a controlled substance at d/c from ED?: No Referrals: Eric Ang DO [Primary Care Provider] - 1-2 days Time of Disposition: 14:50
[2021-07-20 14:25] LABS: Appearance,Urine Cloudy (Clear); Bacteria,Urine Rare /hpf; Bilirubin,Urine Negative (Negative); Blood,Urine Negative (Negative); Color,Urine Yellow; Glucose,Urine (UA) Negative (Negative); Ketones,Urine Negative (Negative); Leukocyte Esterase,Urine Large (Negative); Mucus,Urine Rare /hpf; Nitrite,Urine Negative (Negative); PH, Urine 6.5 (5.0-8.0); Protein,Urine Trace (Negative); RBC,Urine 9 /hpf (0-5); Specific Gravity,Urine 1.032 (1.001-1.035); Squamous Epithelial Cell,Urine 2 /hpf (0-4); WBC,Urine 33 /hpf (0-5)
[2021-07-20] MEDS ORDERED: cefTRIAXone IN SWFI 1,000 MG/10 ML SYRINGE IVP STA (14:48)
[2021-07-20] MEDS ORDERED: MAGNESIUM CITRATE 296 ML BOTTLE PO ONE (14:50)
[2021-07-20 15:42] VITALS: BP 140/83; PULSE 68; RESP 20; TEMP 97.8
== END 2021-07-20 15:41 | disposition home or self-care (01) ==
LOC: EC 11:18
DX: R11.2 Nausea with vomiting, unspecified (principal); K59.00 Constipation, unspecified; N39.0 Urinary tract infection, site not specified; I48.91 Unspecified atrial fibrillation; J44.9 Chronic obstructive pulmonary disease, unspecified; E78.5 Hyperlipidemia, unspecified; I10 Essential (primary) hypertension; Z86.73 Personal history of transient ischemic attack (TIA), and cerebral infarction without residual deficits; M19.90 Unspecified osteoarthritis, unspecified site; G40.909 Epilepsy, unspecified, not intractable, without status epilepticus; F41.9 Anxiety disorder, unspecified; F32.A Depression, unspecified; Z87.891 Personal history of nicotine dependence
CPT/HCPCS: 36415; 74177; 80053; 81001; 82150; 83605; 83690; 85025; 87086; 96361; 96374; 96375; 99284

== ENCOUNTER → 2022-07-08 | Outpatient (CLI) | payer MEDICARE, OTHER ==
[2022-07-08 13:35] VITALS: BP 151/78; PULSE 62; TEMP 97.7; BMI 23.7
--- NOTE | 2022-07-22 15:51 | P.HPBAR ---
Bariatric H&P - History & Physicial H&P Date: 07/08/22 History & Physicial: Visit/CC: sleeve follow up Patient initial contact: Initial weight: 218.632 kg Initial weight in pounds: 482.00 Height: 6 ft 4 in Initial BMI: 58.6 Last weight: Current weight: 88.451 kg Current weight in pounds: 195.00 Current BMI: 23.7 Bertrand body weight (based on NIH guidelines): 91.626 kg Excess body weight loss: 102.4% The patient is a 57 year-old M who presents for Bariatric Assessment. Patient presents today for sleeve gastric a fall. He is loss 20 pounds since last visit. He has mild complaints of GERD. He denies any dysphagia. Past Medical History Past Medical History: Atrial Fibrillation, COPD, CVA/TIA, GERD/Reflux, Hyperlipidemia, Hypertension, Osteoarthritis (OA), Pneumonia, Seizure Disorder, Sleep Apnea/CPAP/BIPAP Additional Past Medical History / Comment(s): hiatal hernia, gout, neuropathy marta legs and feet- states feet are numb, some numbness in legs & tingling in hands., chronic back pain., constipation., dysphagia-hx of EGD with dilation, chronic esophogeal stenosis. Last October 2019, states frequent pneumonia, bowel blockage History of Any Multi-Drug Resistant Organisms: CRE, ESBL Year Discovered:: 07/20/21 ESBL Klebsiella MDRO Source:: URINE Past Surgical History: Back Surgery, Bariatric Surgery, Bowel Resection, Cholecystectomy, Heart Catheterization, Joint Replacement, Orthopedic Surgery Additional Past Surgical History / Comment(s): PAIN PUMP IMPLANTED 07/17/18, HX GASTRIC SLEEVE AND . BILATERAL KNEE arthroscopy, BILATERAL HIP replacement, LEFT SHOULDER replacement, LEFT ACHILES TENDON SX., RIGHT BIG TOE took piece out, echocardiolgram, spinal fusion, EGD with dilation., STATES HX OF PNEUMONIA WITH LUNG SURGERY., REPAIR OF HIATAL HERNIA & LYSIS OF ADHESIONS Past Anesthesia/Blood Transfusion Reactions: No Reported Reaction Past Psychological History: Anxiety, Depression Additional Psychological History / Comment(s): Pt resides with his spouse, daughter and in laws. He uses a walker to ambulate. He does not drive, his spouse takes him to appts. Smoking Status: Former smoker Past Alcohol Use History: None Reported Additional Past Alcohol Use History / Comment(s): Pt started smoking in 1985 and quit in 2017. Past Drug Use History: None Reported - Past Family History Father Family Medical History: Cancer Additional Family Medical History / Comment(s): lung Mother Family Medical History: Coronary Artery Disease (CAD) Additional Family Medical History / Comment(s): . Surgical - Exam Vital Signs Temp Pulse BP 97.7 F 62 151/78 07/08/22 13:16 07/08/22 13:16 07/08/22 13:16 - General well developed, well nourished, no distress - Eyes PERRL - ENT normal pinna, normal nares - Neck no masses - Respiratory normal expansion - Abdomen Abdomen: soft, non tender Bariatric Assessment & Plan Plan: Status post sleeve gastric.. Patient's GERD is minimal will be observed. He's had excellent weight loss. His BMI is 24. Bariatric Checklist Checklist: Plan: Checklist: EGD: 1. Hiatal hernia: 2. H. Pylori: HgbA1c: Vitamin D: Smoking: Former smoker Primary care physician referral: DR. FERNANDO Psychiatry clearance: Cardiology clearance: Sleep study: Diet journal: VTE risk score: VTE risk level: Rehab needs at discharge:
== END | disposition home or self-care (01) ==
LOC: BARWHC3 12:52
PROVIDERS: ATTEND Surgery
DX: E66.01 Morbid (severe) obesity due to excess calories (principal); I48.91 Unspecified atrial fibrillation; J44.9 Chronic obstructive pulmonary disease, unspecified; K21.9 Gastro-esophageal reflux disease without esophagitis; E78.5 Hyperlipidemia, unspecified; I10 Essential (primary) hypertension; M19.90 Unspecified osteoarthritis, unspecified site; G47.30 Sleep apnea, unspecified; G40.909 Epilepsy, unspecified, not intractable, without status epilepticus; J18.9 Pneumonia, unspecified organism; Z68.24 Body mass index [BMI] 24.0-24.9, adult; Z98.84 Bariatric surgery status; Z87.891 Personal history of nicotine dependence
CPT/HCPCS: 99211

== ENCOUNTER → 2022-07-08 | Outpatient (CLI) | payer MEDICARE, OTHER ==
[2022-07-08 17:54] LABS: HCT 41.6 % (39.6-50.0); MCHC 28.8 g/dL (32.0-37.0); MCV 93.7 fL (80.0-97.0); Mean Platelet Volume 12.8 fL (9.5-12.2); NRBC Per 100 WBC 0 /100 WBCS (0.0-0.0); Platelet Count 160 X 10*3/uL (140-440); RBC 4.44 X 10*6/uL (4.40-5.60); RDW 15.4 % (11.5-14.5)
[2022-07-08 20:03] LABS: % Iron Saturation 12.56 (15.00-50.00); Magnesium 1.9 mg/dL (1.5-2.4)
[2022-07-08 20:07] LABS: African American GFR (CKD) 95.7 (60.0-200.0); Albumin 4.1 g/dL (3.8-4.9); Albumin/Globulin Ratio 1.28 (1.60-3.17); Anion Gap 15.5 mmol/L (10.00-18.00); BUN/Creat Ratio 13.9 Ratio (12.00-20.00); Blood Urea Nitrogen 13.9 mg/dL (9.0-27.0); Calcium 9.3 mg/dL (8.7-10.3); Carbon Dioxide 25.5 mmol/L (20.0-27.5); Globulin 3.2 g/dL (1.6-3.3); Non-African American GFR(CKD) 82.6 (60.0-200.0); Potassium 5.1 mmol/L (3.5-5.5); Total Bilirubin 0.8 mg/dL (0.30-1.20); Total Protein 7.3 g/dL (6.2-8.2)
[2022-07-09 13:32] LABS: Zinc, Serum 68 ug/dL (60-130)
[2022-07-10 05:48] LABS: Vit B1(Thiamine) 53 ug/L (38-122)
== END | disposition home or self-care (01) ==
LOC: LABWHC1 13:38
PROVIDERS: ATTEND Surgery
DX: E66.01 Morbid (severe) obesity due to excess calories (principal); D50.8 Other iron deficiency anemias; E55.9 Vitamin D deficiency, unspecified; E44.0 Moderate protein-calorie malnutrition; T56.894A Toxic effect of other metals, undetermined, initial encounter
CPT/HCPCS: 36415; 80053; 82306; 82607; 82746; 83540; 83550; 83735; 84255; 84425; 84443; 84590; 84630; 85027

== ENCOUNTER → 2023-06-17 | Outpatient (CLI) | payer MEDICARE, OTHER ==
--- NOTE | 2023-06-17 17:53 | BD ---
EXAMINATION TYPE: Axial Bone Density DATE OF EXAM: 06/17/2023 CLINICAL HISTORY: 58 years old Male. ICD-10 CODE: T07.XXXD UNSPECIFIED MULTIPLE INJURIES, SUBSEQUENT Height: 76 Weight: 183 FRAX RISK QUESTIONS: Alcohol (3 or more units per day): no Family History (Parent hip fracture): no Glucocorticoids (More than 3mos): no (Ex: prednisone, prednisolone, methylprednisolone, dexamethasone, and hydrocortisone). History of Fracture in Adulthood: yes Secondary Osteoporosis: 1. Type 1 Diabetes: no 2. Hyperthyroidism: no 4. Malnutrition: no 5. Chronic liver disease: no Rheumatoid Arthritis: no Current Tobacco Use: no RISK FACTORS HISTORY OF: Spine Fracture: yes History of Wrist Fracture: yes/ right Surgery to Spine/Hip(right/left)/Wrist (right/left): bilateral hips When: 10 years ago Additional History: EXAM MEASUREMENTS: Bone mineral densitometry was performed using the [employer]. Bone mineral density about the L Wrist (g/cm2): 0.722 T Score values are as follows: -----Dist. R+U: -0.2 -----Prox. R+U: -0.9 -----Radius total: -0.5 Z Score values are as follows: -----Dist. R+U: -0.5 -----Prox. R+U: -1.2 -----Radius total: -0.9 Bone mineral density : baseline IMPRESSION: Normal (Values between +1 and -1 indicate normal bone mass). Consider repeating this study in 5 year s or sooner if there is some new clinical indication. NOTE: T-SCORE=SD OF THE YOUNG ADULT MEAN.
== END | disposition home or self-care (01) ==
LOC: RADBDWWP 12:38
PROVIDERS: ATTEND Family Medicine
DX: T07.XXXD Unspecified multiple injuries, subsequent encounter (principal); X58.XXXD Exposure to other specified factors, subsequent encounter
CPT/HCPCS: 77080

== ENCOUNTER → 2024-09-09 | Outpatient (CLI) | payer MEDICARE, OTHER ==
--- NOTE | 2024-09-09 08:58 | CT ---
EXAMINATION TYPE: CT abdomen pelvis wo con DATE OF EXAM: 09/09/2024 8:39 AM COMPARISON: 07/20/2021 CLINICAL INDICATION: Male, 59 years old with history of R10.9 ABDOMINAL PAIN; RIGHT FLANK PAIN TECHNIQUE: Axial CT abdomen pelvis wo con;Sagittal and coronal reformats were created on a separate workstation. Contrast used: mL of , (none if empty) Oral contrast used: without Oral Contrast (none if empty) CT DLP: 856 mGycm, Automated exposure control for dose reduction was used. FINDINGS: LOWER CHEST: Elevated left diaphragm. ABDOMEN LIVER: Unremarkable GALLBLADDER AND BILE DUCTS: Unremarkable. PANCREAS: Unremarkable. SPLEEN: Scattered calcified granulomas. ADRENAL GLANDS: Unremarkable. KIDNEYS AND URETERS: Bilateral renal calculi measuring up to 4 mm mm on the right and XX mm on the le ft. PELVIS BLADDER: No evidence for wall thickening or mass given limitations of exam. REPRODUCTIVE: Unremarkable. ABDOMEN & PELVIS STOMACH AND BOWEL: No evidence of bowel obstruction. PERITONEUM/RETROPERITONEUM: No evidence of pneumoperitoneum or free fluid. VASCULATURE: Mild atherosclerotic calcifications are present throughout the abdominal aorta and its b ranches. No evidence of aortic aneurysm. MUSCULOSKELETAL: No acute osseous abnormalities, degeneration changes of the spine with levoscoliosis apex L1-L2. Bilateral hip arthroplasties limiting evaluation. Hardware appears intact. Vision change s on the left. Grade 1 anterolisthesis of L4 on L5. Transitional vertebrae present. LYMPH NODES: No gross evidence for lymphadenopathy. SOFT TISSUE/ABDOMINAL WALL: Unremarkable IMPRESSION: No evidence for obstructive uropathy. There is a nonobstructing right renal calculus. Evaluation the pelvis is limited due to streak artifact. No obvious right-sided acute abdominal process. Elevated left diaphragm. [facility], , 09/09/2024 8:56 AM
== END | disposition home or self-care (01) ==
LOC: RADCTMAIN 08:23
PROVIDERS: ATTEND Family Medicine
DX: N20.0 Calculus of kidney (principal); J98.6 Disorders of diaphragm
CPT/HCPCS: 74176